=== PATIENT | female | born 1950 | race Caucasian/White ===

== ENCOUNTER 2016-07-22 14:04 | Emergency (ER) | payer BC ==
[2016-07-22] MEDS ORDERED: ONDANSETRON 4 MG/2 ML VIAL IVP STA (14:34)
[2016-07-22] MEDS ORDERED: HYDROmorphone 1 MG/ML 1 ML SYRINGE IVP STA ×2 (14:34→17:28)
--- NOTE | 2016-07-22 14:48 | ED ---
General Adult HPI - General Chief complaint: Shortness of Breath Stated complaint: Difficulty Breathing Time Seen by Provider: 07/22/16 14:23 Source: patient, EMS Mode of arrival: ambulatory Limitations: no limitations - History of Present Illness Initial comments: 66-year-old female patient presents to emergency department today for complaints of thoracic back pain that radiates around to the right side, and into her right upper quadrant abdomen. Patient is also complaining of some abdominal distention and generalized discomfort. Patient reports shortness of breath with this, some dizziness, and has had sweats. Patient states that she has chronic back pain with known herniated disc of the thoracic spine, she is currently in rehab at [facility] for this. When she woke this morning the pain was worse than usual, and states it is hard to move around or ambulate. She states that when in EMS she did have some chest discomfort as well. Patient denies any fever, chills, weakness, nausea, vomiting, constipation, or diarrhea. Patient states her last bowel movement was yesterday. She denies any dysuria, hematuria, urinary urgency, urinary frequency, dark, bloody, or black stools. She does have a history significant for asthma, chronic use of corticosteroids, and anxiety. - Related Data Home Medications Medication Instructions Recorded Confirmed Folic Acid 1 mg PO DAILY@1700 10/19/15 07/22/16 Methotrexate (Unknown Dose) 2.5 mg PO MO 10/19/15 07/22/16 Albuterol Nebulized [Ventolin 2.5 mg INHALATION RT-BID@0800,1700 07/22/16 Nebulized] Albuterol Sulfate [Proventil Hfa] 2 puff INHALATION RT-Q6H PRN 07/22/16 07/22/16 Alendronate Sodium [Fosamax] 70 mg PO TH 07/22/16 07/22/16 Bisacodyl [Dulcolax] 10 mg RECTAL DAILY PRN 07/22/16 07/22/16 Budesonide/Formoterol Fumarate 2 puff INHALATION RT-BID 07/22/16 07/22/16 [Symbicort 160-4.5 Mcg Inhaler] Calcitonin,[place],Synthetic 1 spray EA NOSTRIL DAILY 07/22/16 07/22/16 [Miacalcin] Cholecalciferol [Vitamin D3] 2,000 unit PO DAILY@1700 07/22/16 07/22/16 Cyclobenzaprine [Flexeril] 10 mg PO TID 07/22/16 07/22/16 HYDROcodone/APAP 5-325MG [[place] 1 tab PO Q4HR PRN 07/22/16 07/22/16 5-325] Hydrochlorothiazide [Hydrodiuril] 12.5 mg PO MOWEFR 07/22/16 07/22/16 Magnesium Hydroxide [Milk of 2,400 mg PO DAILY PRN 07/22/16 07/22/16 Magnesia] Menthol/Zinc Oxide [Calmoseptine 1 applic TOPICAL BID 07/22/16 07/22/16 Ointment] Montelukast [Singulair] 10 mg PO HS@2100 07/22/16 07/22/16 Morphine Sulfate [Ms Contin] 30 mg PO Q12HR 07/22/16 07/22/16 Na Phos,M-B/Na Phos,Di-Ba [Fleet 133 ml RECTAL DAILY 07/22/16 07/22/16 Adult] Omeprazole 20 mg PO DAILY 07/22/16 07/22/16 Polyethylene Glycol 3350 [Miralax] 17 gm PO DAILY 07/22/16 07/22/16 Sennosides [Senokot] 8.6 mg PO HS 07/22/16 07/22/16 predniSONE 20 mg PO DAILY 07/22/16 07/22/16 Allergies Allergy/AdvReac Type Severity Reaction Status Date / Time furosemide [From Lasix] AdvReac Unknown Verified 07/22/16 14:50 Review of Systems ROS Statement: Those systems with pertinent positive or pertinent negative responses have been documented in the HPI. ROS Other: All systems not noted in ROS Statement are negative. Past Medical History Past Medical History: Asthma, Cancer, GERD/Reflux Additional Past Medical History / Comment(s): SKIN CANCER, HERNIATED DISCS, STATES HX OF SEPSIS WHICH AFFECTED HER KIDNEYS BUT THEY ARE OK NOW., STATES PROBLEM WITH DIARRHEA. History of Any Multi-Drug Resistant Organisms: None Reported Past Surgical History: Tubal Ligation Additional Past Surgical History / Comment(s): CATARACT LEFT EYE WITH REPAIR OF MACULAR HOLE. Past Anesthesia/Blood Transfusion Reactions: No Reported Reaction Past Psychological History: No Psychological Hx Reported Smoking Status: Never smoker Past Alcohol Use History: Occasional Past Drug Use History: None Reported - Past Family History Mother Family Medical History: Cancer Additional Family Medical History / Comment(s): COLON CANCER General Exam Limitations: no limitations General appearance: alert, in no apparent distress Eye exam: Present: normal appearance, PERRL, EOMI. Absent: scleral icterus, conjunctival injection, periorbital swelling ENT exam: Present: normal exam, normal oropharynx, mucous membranes moist Neck exam: Present: normal inspection. Absent: tenderness, meningismus, lymphadenopathy Respiratory exam: Present: normal lung sounds bilaterally. Absent: respiratory distress, wheezes, rales, rhonchi, stridor Cardiovascular Exam: Present: regular rate, normal rhythm, normal heart sounds. Absent: systolic murmur, diastolic murmur, rubs, gallop, clicks GI/Abdominal exam: Present: distended, normal bowel sounds. Absent: soft (Firm) , tenderness, guarding, rebound, rigid Extremities exam: Present: normal inspection, full ROM, normal capillary refill. Absent: tenderness, pedal edema, joint swelling, calf tenderness Back exam: Present: tenderness (Over the thoracic spine) Neurological exam: Present: alert, oriented X3, CN II-XII intact Psychiatric exam: Present: normal affect, normal mood Skin exam: Present: warm, intact, normal color. Absent: rash Course Vital Signs 07/22/16 07/22/16 14:28 15:58 Temperature 97.0 F L Pulse Rate 94 91 Respiratory 22 20 Rate Blood Pressure 149/70 149/72 O2 Sat by Pulse 93 L 95 Oximetry EKG Findings - EKG Comments: EKG Findings:: EKG obtained at 1450 reveals normal sinus rhythm with a ventricular rate of 91, PA interval 140, QRS duration 82, QT 362, QTC 445. No evidence of ST elevation or depression. Medical Decision Making - Medical Decision Making 66-year-old female patient presents to emergency department today for complaints of back pain that radiated to her right side, shortness of breath, and abdominal distention. CT of the chest was negative for any pulmonary embolism. CT abdomen and pelvis and KUB were significant for fecal retention. Patient is newly taking opiate pain medications or known compression deformities of the thoracic spine and has some issues with constipation since then. Patient does have multiple stool [facility] She'll her pain is related to the compression deformities and she is feeling better after pain medication here. Additionally patient's amylase and lipase are mildly elevated. Patient given instruction regarding diet and increase fluid intake and will be given a prescription for repeat amylase and lipase and 2 days. Patient will be discharged back to [facility]. Patient instructed pop her primary care physician one to 2 days. Patient started to return for any new, worsening, or concerning symptoms. - Lab Data Result diagrams: 07/22/16 15:04 07/22/16 15:04 Lab Results 07/22/16 07/22/16 07/22/16 Range/Units 14:42 15:04 15:04 WBC 12.0 H (3.8-10.6) k/uL RBC 3.96 (3.80-5.40) m/uL Hgb 13.5 (11.4-16.0) gm/dL Hct 42.0 (34.0-46.0) % MCV 105.9 H (80.0-100.0) fL MCH 34.1 (25.0-35.0) pg MCHC 32.2 (31.0-37.0) g/dL RDW 15.4 (11.5-15.5) % Plt Count 242 (150-450) k/uL Neutrophils % 89 % Lymphocytes % 5 % Monocytes % 4 % Eosinophils % 0 % Basophils % 0 % Neutrophils # 10.6 H (1.3-7.7) k/uL Lymphocytes # 0.6 L (1.0-4.8) k/uL Monocytes # 0.5 (0-1.0) k/uL Eosinophils # 0.1 (0-0.7) k/uL Basophils # 0.1 (0-0.2) k/uL Macrocytosis Moderate PT (9.0-12.0) sec INR (<1.1) APTT (22.0-30.0) sec D-Dimer (<0.60) mg/L FEU Sodium (137-145) mmol/L Potassium (3.5-5.1) mmol/L Chloride (98-107) mmol/L Carbon Dioxide (22-30) mmol/L Anion Gap mmol/L BUN (7-17) mg/dL Creatinine (0.52-1.04) mg/dL Est GFR (MDRD) Af Amer (>60 ml/min/1.73 sqM) Est GFR (MDRD) Non-Af (>60 ml/min/1.73 sqM) Glucose (74-99) mg/dL POC Glucose (mg/dL) 130 H (75-99) mg/dL POC Glu [employer] ID Hollie Martin Calcium (8.4-10.2) mg/dL Total Bilirubin (0.2-1.3) mg/dL AST (14-36) U/L ALT (9-52) U/L Alkaline Phosphatase (38-126) U/L Total Creatine Kinase <20 L (30-135) U/L CK-MB (CK-2) 0.6 (0.0-2.4) ng/mL CK-MB (CK-2) Rel Index 0.0 Troponin I <0.012 (0.000-0.034) ng/mL Total Protein (6.3-8.2) g/dL Albumin (3.5-5.0) g/dL Amylase (30-110) U/L Lipase (23-300) U/L Urine Color Urine Appearance (Clear) Urine pH (5.0-8.0) Ur Specific [place] (1.001-1.035) Urine Protein (Negative) Urine Glucose (UA) (Negative) Urine Ketones (Negative) Urine Blood (Negative) Urine Nitrite (Negative) Urine Bilirubin (Negative) Urine Urobilinogen (<2.0) mg/dL Ur Leukocyte Esterase (Negative) Urine RBC (0-5) /hpf Urine WBC (0-5) /hpf Ur Squamous Epith Cells (0-4) /hpf Calcium Oxalate Crystal (None) /hpf Hyaline Casts (0-2) /lpf Urine Mucus (None) /hpf 07/22/16 07/22/16 07/22/16 Range/Units 15:04 15:04 15:56 WBC (3.8-10.6) k/uL RBC (3.80-5.40) m/uL Hgb (11.4-16.0) gm/dL Hct (34.0-46.0) % MCV (80.0-100.0) fL MCH (25.0-35.0) pg MCHC (31.0-37.0) g/dL RDW (11.5-15.5) % Plt Count (150-450) k/uL Neutrophils % % Lymphocytes % % Monocytes % % Eosinophils % % Basophils % % Neutrophils # (1.3-7.7) k/uL Lymphocytes # (1.0-4.8) k/uL Monocytes # (0-1.0) k/uL Eosinophils # (0-0.7) k/uL Basophils # (0-0.2) k/uL Macrocytosis PT 10.0 (9.0-12.0) sec INR 1.0 (<1.1) APTT 23.2 (22.0-30.0) sec D-Dimer 1.38 H (<0.60) mg/L FEU Sodium 140 (137-145) mmol/L Potassium 4.1 (3.5-5.1) mmol/L Chloride 102 (98-107) mmol/L Carbon Dioxide 30 (22-30) mmol/L Anion Gap 8 mmol/L BUN 23 H (7-17) mg/dL Creatinine 0.71 (0.52-1.04) mg/dL Est GFR (MDRD) Af Amer >60 (>60 ml/min/1.73 sqM) Est GFR (MDRD) Non-Af >60 (>60 ml/min/1.73 sqM) Glucose 139 H (74-99) mg/dL POC Glucose (mg/dL) (75-99) mg/dL POC Glu [employer] ID Calcium 8.7 (8.4-10.2) mg/dL Total Bilirubin 0.7 (0.2-1.3) mg/dL AST 26 (14-36) U/L ALT 51 (9-52) U/L Alkaline Phosphatase 99 (38-126) U/L Total Creatine Kinase (30-135) U/L CK-MB (CK-2) (0.0-2.4) ng/mL CK-MB (CK-2) Rel Index Troponin I (0.000-0.034) ng/mL Total Protein 6.6 (6.3-8.2) g/dL Albumin 3.7 (3.5-5.0) g/dL Amylase 150 H (30-110) U/L Lipase 332 H (23-300) U/L Urine Color Yellow Urine Appearance Cloudy H (Clear) Urine pH 7.0 (5.0-8.0) Ur Specific [place] 1.020 (1.001-1.035) Urine Protein Trace H (Negative) Urine Glucose (UA) Negative (Negative) Urine Ketones Negative (Negative) Urine Blood Small H (Negative) Urine Nitrite Negative (Negative) Urine Bilirubin Negative (Negative) Urine Urobilinogen <2.0 (<2.0) mg/dL Ur Leukocyte Esterase Moderate H (Negative) Urine RBC 10 H (0-5) /hpf Urine WBC 7 H (0-5) /hpf Ur Squamous Epith Cells 1 (0-4) /hpf Calcium Oxalate Crystal Occasional H (None) /hpf Hyaline Casts 3 H (0-2) /lpf Urine Mucus Rare H (None) /hpf - Radiology Data Radiology results: report reviewed Chest CTA with impression by Dr. Murray reveals no acute pulmonary embolus. Minimal subsegmental atelectasis lung bases. CT abdomen and pelvis with impression by Dr. Murray reveals sigmoid diverticulosis. Mild fecal retention. Multiple compression deformities. X-ray KUB with impression by Dr. Murray reveals no evidence for bowel obstruction. Moderate stool burden. Possible right-sided nephrolithiasis with calcification measuring up to 2.5 cm. Two-view chest x-ray showed no acute cardiopulmonary process. Disposition Clinical Impression: Compression deformity of vertebra, Constipation Disposition: HOME SELF-CARE Condition: Stable Instructions: Constipation (ED), Back Pain (ED) Additional Instructions: Increase fluids. Low-fat diet. Repeat amylase and lipase in 2 days. Follow- up with Dr. Salazar for a further evaluation of the back pain. Return for any new , worsening, or concerning symptoms. Referrals: Chencho Gallardo DO [Primary Care Provider] - 1-2 days Time of Disposition: 17:16
[2016-07-22 14:54] LABS: Glucose,Whole Blood 130 mg/dL (75-99)
[2016-07-22 15:23] LABS: Basophils # (A) 0.1 k/uL (0-0.2); Basophils % (A) 0 %; CH 34.5; CHCM 32.7; Eosinophils # (A) 0.1 k/uL (0-0.7); Eosinophils % (A) 0 %; HDW 2.86; HGB 13.5 gm/dL (11.4-16.0); Luc # (Auto) 0.12; Luc % (Auto) 1; Lymphocytes # (A) 0.6 k/uL (1.0-4.8); Lymphocytes % (A) 5 %; MCH 34.1 pg (25.0-35.0); MCHC 32.2 g/dL (31.0-37.0); MCV 105.9 fL (80.0-100.0); Macrocytosis Moderate; Mean Platelet Volume 6.6; Monocytes # (A) 0.5 k/uL (0-1.0); Monocytes % (A) 4 %; Neutrophils # (A) 10.6 k/uL (1.3-7.7); Neutrophils % (A) 89 %; RBC 3.96 m/uL (3.80-5.40); RDW 15.4 % (11.5-15.5); WBC (Perox) 12.86
--- NOTE | 2016-07-22 15:28 | XR ---
EXAMINATION TYPE: XR chest 2V DATE OF EXAM: 07/22/2016 3:19 PM COMPARISON: None HISTORY: 66-year-old female difficulty breathing TECHNIQUE: AP and lateral views FINDINGS: Excessive lordotic positioning. Limitations due to portable technique and large patient body habitus. The heart appears enlarged. There is some retrocardiac lucency suggesting underlying moderate size h iatal hernia. Diffuse interstitial opacities. Suggestion of thickening of the minor fissure. Trace ef fusion seen on the lateral view. IMPRESSION: 1. Correlate for CHF with pulmonary vascular congestion/interstitial edema. 2. Trace pleural effusions. 3. Moderate-sized hiatal hernia.
--- NOTE | 2016-07-22 15:30 | XR ---
EXAMINATION TYPE: XR KUB DATE OF EXAM: 07/22/2016 3:19 PM CLINICAL DATA: , [facility] COMPARISON: FINDINGS: Supine imaging limited for assessment of free intraperitoneal air. Nondilated bowel. There is moderate stool seen throughout the colon. Some vascular calcifications in the pelvis. Difficult to exclude right-sided renal calculi measuring up to 2.5 x 1.1 cm. IMPRESSION: 1. No evidence for bowel obstruction. 2. Moderate stool burden. 3. Possible right-sided nephrolithiasis with calcification measuring up to 2.5 cm.
[2016-07-22 15:38] LABS: Partial Thromboplastin Time 23.2 sec (22.0-30.0)
[2016-07-22 15:39] LABS: ALT 51 U/L (9-52); AST 26 U/L (14-36); Alkaline Phosphatase 99 U/L (38-126); Amylase 150 U/L (30-110); Anion Gap 8 mmol/L; Blood Urea Nitrogen 23 mg/dL (7-17); Calcium 8.7 mg/dL (8.4-10.2); Carbon Dioxide 30 mmol/L (22-30); Chloride 102 mmol/L (98-107); Glucose 139 mg/dL (74-99); Non-African American GFR(MDRD) >60 (>60 ml/min/1.73 sqM); Potassium 4.1 mmol/L (3.5-5.1); Sodium 140 mmol/L (137-145); Total Bilirubin 0.7 mg/dL (0.2-1.3); Total Protein 6.6 g/dL (6.3-8.2)
[2016-07-22] MEDS ORDERED: RX INFO: IV CONTRAST WAS GIVEN 1 EACH MISC MISCELLANE PRN (15:43)
[2016-07-22 15:45] LABS: Creatine Kinase <20 U/L (30-135)
[2016-07-22 15:57] LABS: Creatine Kinase MB 0.6 ng/mL (0.0-2.4); Troponin I <0.012 ng/mL (0.000-0.034)
[2016-07-22 16:20] LABS: Appearance,Urine Cloudy (Clear); Bilirubin,Urine Negative (Negative); Calcium Oxalate Crystals,Urine Occasional /hpf; Glucose,Urine (UA) Negative (Negative); Ketones,Urine Negative (Negative); Leukocyte Esterase,Urine Moderate (Negative); Mucus,Urine Rare /hpf; Nitrite,Urine Negative (Negative); Particle Count 11189; Protein,Urine Trace (Negative); RBC,Urine 10 /hpf (0-5); Squamous Epithelial Cell,Urine 1 /hpf (0-4); UA Billing (MACRO vs. MICRO) MICRO; Urobilinogen,Urine <2.0 mg/dL (<2.0); WBC,Urine 7 /hpf (0-5)
--- NOTE | 2016-07-22 16:49 | CT ---
CT CHEST FOR PULMONARY EMBOLISM. EXAMINATION TYPE: CT chest angio for PE DATE OF EXAM: 07/22/2016 4:20 PM INDICATION: Back pain today. No abdominal pain. Shortness of breath and elevated d-dimer. CT DLP: 1869.40 mGycm, Automated exposure control for dose reduction was used. CONTRAST: Patient injected with 100 mL of Omnipaque 350. COMPARISON: None TECHNIQUE: CT of the chest is performed on a spiral scan at 2 mm thick sections. Study is performed with intravenous contrast timed for evaluation for pulmonary embolism. This will limit additional po rtions of the evaluation. 3-D MIP images reconstructed by the technologist are reviewed on the compu ter in the coronal and sagittal planes. FINDINGS: No persistent filling defects are evident to suggest an acute pulmonary embolism. No mediastinal or hilar adenopathy enlarged by CT criteria is evident. The ascending aorta diameter at the level of the main pulmonary artery is 3.5 cm. The main pulmonary artery diameter at the bifur cation is 2.3 cm. There is streak opacity in the right lower lobe compatible some atelectasis. Some dependent compressi ve atelectasis is present bilaterally. Moderate size hiatal hernia is present. Subglottic airway appe ars unremarkable. No enlarged mediastinal or hilar adenopathy is evident. Very minimal bilateral pleu ral effusions may be present. CT abdomen and pelvis is performed separately. IMPRESSIONS: 1. No acute pulmonary embolism. 2. Minimal subsegmental atelectasis lung bases.
--- NOTE | 2016-07-22 16:54 | CT ---
EXAMINATION TYPE: CT abdomen pelvis w con DATE OF EXAM: 07/22/2016 4:20 PM COMPARISON: NONE INDICATION: Back pain today. No abdominal pain. Shortness of breath and elevated d-dimer. DLP: 1869.40 mGycm, Automated exposure control for dose reduction was used. CONTRAST: 100 mL of Omnipaque 350. Study performed without Oral Contrast TECHNIQUE: Axial images were obtained from above the diaphragm to the pubic rami in the axial plane a t 5 mm thick sections. Reconstructed images are reviewed on the computer in the coronal plane. FINDINGS: Limited CT sections are obtained the lung bases. The lung bases are clear. CT ABDOMEN: Liver: Normal Spleen: Normal Pancreas: Normal Adrenal glands: The adrenal glands are normal. Gallbladder: Normal Kidneys: No masses are evident. No hydronephrosis is present. No cysts are present. Delayed images were obtained through the kidneys, which remain unremarkable. Aorta: Vascular calcification is within the aorta. Inferior vena cava: Normal. CT PELVIS: Loops of bowel within the abdomen and pelvis are normal. Diverticular changes are within the sigm oid colon. A large amount of fecal debris is within the ascending colon. Fecal debris is within the t ransverse colon and mild or mild within the descending colon. Appendix: Not visualized Urinary bladder: Normal. Genitourinary structures: Uterus is normal. Adnexal regions are clear. Osseous structures: No suspicious lytic or sclerotic lesions. Facet changes are within the lumbar spi ne. There is a compression deformity of the superior endplate of L2. There is a severe compression de formity of T12. Some posterior wall displacement is present. Dedicated CT thoracolumbar spine to be p erformed for additional evaluation. Some stenosis is likely present. There is a severe compression de formity of T10 without posterior wall displacement. At the edge of the [id number] T7 compression w edge deformity is present. IMPRESSIONS: 1. Sigmoid diverticulosis. 2. Mild fecal retention. 3. Multiple compression deformities. Evaluation of the thoracolumbar spine can further evaluate the T 12 posterior wall displacement.
[2016-07-22 17:50] VITALS: BP 135/63; PULSE 85; RESP 18; TEMP 98.2
== END 2016-07-22 18:22 | disposition home or self-care (01) ==
LOC: SUPCPDRO 14:04 → EC 14:04
DX: M43.8X4 Other specified deforming dorsopathies, thoracic region (principal); K59.00 Constipation, unspecified; J98.11 Atelectasis; K57.30 Diverticulosis of large intestine without perforation or abscess without bleeding; R74.8 Abnormal levels of other serum enzymes; R14.0 Abdominal distension (gaseous); J45.909 Unspecified asthma, uncomplicated; K21.9 Gastro-esophageal reflux disease without esophagitis; Z79.51 Long term (current) use of inhaled steroids; Z79.891 Long term (current) use of opiate analgesic; Z79.899 Other long term (current) drug therapy; Z88.8 Allergy status to other drugs, medicaments and biological substances; Z85.828 Personal history of other malignant neoplasm of skin
CPT/HCPCS: 99285; 96374; 96376; 96375; 36415; 93005; 85379; 80053; 82150; 82550; 82553; 83690; 84484; 85025; 85610; 85730; 81001; 87086; 71020; 74000; 71275; 74177; Q9967; J2405; J1170; 82607; 82747; 82977; 84450; 84460

== ENCOUNTER 2016-07-28 07:20 | Inpatient (IN) | payer BC, MEDICARE ==
[2016-07-28] MEDS ORDERED: SODIUM CHLORIDE 0.9% 1,000 ML IV STA (07:30)
[2016-07-28] MEDS ORDERED: SODIUM CHLORIDE 0.9% 500 ML IV STA (07:30)
--- NOTE | 2016-07-28 07:34 | ED ---
Back Pain HPI - General Chief Complaint: Back Pain/Injury Stated Complaint: Back Pain Time Seen by Provider: 07/28/16 07:20 Source: patient, EMS, RN notes reviewed - History of Present Illness Initial Comments: This is a 66-year-old female who was brought in by EMS with complaints of severe thoracic back pain. She states she has for [place] other affected some lower thoracic spine. She does, [place] after being there for a week ago for 5 days. She states she took her Vicodin and Seco today. No relief she states pain was 10/10 in severity. Sharp in nature she denies any focal deficits it does get worse with movement. She denies any fevers chills nausea vomiting sweats or other symptoms. Patient also states she's been constipated due to her pain medications. MD Complaint: back pain - Related Data Home Medications Medication Instructions Recorded Confirmed Folic Acid 1 mg PO DAILY@1700 10/19/15 07/28/16 Albuterol Nebulized [Ventolin 2.5 mg INHALATION RT-BID@0800,1700 07/22/16 Nebulized] Albuterol Sulfate [Proventil Hfa] 2 puff INHALATION RT-Q6H PRN 07/22/16 07/28/16 Alendronate Sodium [Fosamax] 70 mg PO TH 07/22/16 07/28/16 Budesonide/Formoterol Fumarate 2 puff INHALATION RT-BID 07/22/16 07/28/16 [Symbicort 160-4.5 Mcg Inhaler] Cholecalciferol [Vitamin D3] 2,000 unit PO DAILY@1700 07/22/16 07/28/16 Cyclobenzaprine [Flexeril] 10 mg PO TID 07/22/16 07/28/16 HYDROcodone/APAP 5-325MG [Seco 1 tab PO Q4HR PRN 07/22/16 07/28/16 5-325] Hydrochlorothiazide [Hydrodiuril] 12.5 mg PO MOWEFR 07/22/16 07/28/16 Montelukast [Singulair] 10 mg PO HS 07/22/16 07/28/16 Morphine Sulfate [Ms Contin] 30 mg PO Q12HR 07/22/16 07/28/16 Omeprazole 20 mg PO BID 07/22/16 07/28/16 Polyethylene Glycol 3350 [Miralax] 17 gm PO DAILY 07/22/16 07/28/16 Sennosides [Senokot] 8.6 mg PO HS 07/22/16 07/28/16 predniSONE 20 mg PO DAILY 07/22/16 07/28/16 Methotrexate Sodium [Methotrexate] 12.5 mg PO MO 07/28/16 07/28/16 Allergies Allergy/AdvReac Type Severity Reaction Status Date / Time furosemide [From Lasix] AdvReac Unknown Verified 07/28/16 10:53 Review of Systems ROS Statement: Those systems with pertinent positive or pertinent negative responses have been documented in the HPI. ROS Other: All systems not noted in ROS Statement are negative. Past Medical History Past Medical History: Asthma, Cancer, GERD/Reflux Additional Past Medical History / Comment(s): SKIN CANCER, HERNIATED DISCS, STATES HX OF SEPSIS WHICH AFFECTED HER KIDNEYS BUT THEY ARE OK NOW., STATES PROBLEM WITH DIARRHEA. History of Any Multi-Drug Resistant Organisms: None Reported Past Surgical History: Tubal Ligation Additional Past Surgical History / Comment(s): CATARACT LEFT EYE WITH REPAIR OF MACULAR HOLE. Past Anesthesia/Blood Transfusion Reactions: No Reported Reaction Past Psychological History: No Psychological Hx Reported Smoking Status: Never smoker Past Alcohol Use History: Occasional Past Drug Use History: None Reported - Past Family History Mother Family Medical History: Cancer Additional Family Medical History / Comment(s): COLON CANCER General Exam - General Exam Comments Initial Comments: This is a well-developed well-nourished awake alert anxious appearing female General appearance: alert, in no apparent distress Head exam: Present: atraumatic, normocephalic, normal inspection Eye exam: Present: normal appearance, PERRL, EOMI. Absent: scleral icterus, conjunctival injection, periorbital swelling ENT exam: Present: mucous membranes dry Neck exam: Present: normal inspection. Absent: tenderness, meningismus, lymphadenopathy Respiratory exam: Present: normal lung sounds bilaterally. Absent: respiratory distress, wheezes, rales, rhonchi, stridor Cardiovascular Exam: Present: regular rate, normal rhythm, normal heart sounds. Absent: systolic murmur, diastolic murmur, rubs, gallop, clicks GI/Abdominal exam: Present: soft, normal bowel sounds, other (Obese abdomen). Absent: distended, tenderness, guarding, rebound, rigid Extremities exam: Present: normal inspection, full ROM, normal capillary refill. Absent: tenderness, pedal edema, joint swelling, calf tenderness Back exam: Present: normal inspection, tenderness, paraspinal tenderness. Absent: CVA tenderness (R) (Tenderness palpation over the lower thoracic paraspinous muscles no definite spinous process tenderness.), CVA tenderness (L) Neurological exam: Present: alert, oriented X3, CN II-XII intact Psychiatric exam: Present: normal affect, normal mood Skin exam: Present: warm, dry, intact, normal color. Absent: rash Course Vital Signs 07/28/16 07/28/16 07:24 09:07 Temperature 97.7 F Pulse Rate 92 85 Respiratory 20 16 Rate Blood Pressure 166/82 178/81 O2 Sat by Pulse 100 97 Oximetry Medical Decision Making - Medical Decision Making I did reevaluate patient still having severe pain 9/10 severity I did discuss [employer] and family members. Patient be admitted for pain control IV hydration failed outpatient treatment and orthopedic consultation - Lab Data Result diagrams: 07/28/16 09:05 07/28/16 09:05 Lab Results 07/28/16 07/28/16 07/28/16 Range/Units 09:05 09:05 09:05 WBC 9.5 (3.8-10.6) k/uL RBC 3.83 (3.80-5.40) m/uL Hgb 12.9 (11.4-16.0) gm/dL Hct 40.7 (34.0-46.0) % MCV 106.3 H (80.0-100.0) fL MCH 33.8 (25.0-35.0) pg MCHC 31.8 (31.0-37.0) g/dL RDW 15.0 (11.5-15.5) % Plt Count 195 (150-450) k/uL Neutrophils % 83 % Lymphocytes % 8 % Monocytes % 5 % Eosinophils % 3 % Basophils % 1 % Neutrophils # 7.9 H (1.3-7.7) k/uL Lymphocytes # 0.7 L (1.0-4.8) k/uL Monocytes # 0.5 (0-1.0) k/uL Eosinophils # 0.2 (0-0.7) k/uL Basophils # 0.1 (0-0.2) k/uL Macrocytosis Moderate D-Dimer (<0.60) mg/L FEU Sodium 138 (137-145) mmol/L Potassium 3.4 L (3.5-5.1) mmol/L Chloride 99 (98-107) mmol/L Carbon Dioxide 32 H (22-30) mmol/L Anion Gap 7 mmol/L BUN 24 H (7-17) mg/dL Creatinine 0.84 (0.52-1.04) mg/dL Est GFR (MDRD) Af Amer >60 (>60 ml/min/1.73 sqM) Est GFR (MDRD) Non-Af >60 (>60 ml/min/1.73 sqM) Glucose 83 (74-99) mg/dL Calcium 9.0 (8.4-10.2) mg/dL Magnesium 1.9 (1.6-2.3) mg/dL Total Bilirubin 0.8 (0.2-1.3) mg/dL AST 27 (14-36) U/L ALT 47 (9-52) U/L Alkaline Phosphatase 77 (38-126) U/L Total Creatine Kinase <20 L (30-135) U/L CK-MB (CK-2) 0.4 (0.0-2.4) ng/mL CK-MB (CK-2) Rel Index 0.0 Total Protein 6.2 L (6.3-8.2) g/dL Albumin 3.5 (3.5-5.0) g/dL Amylase 116 H (30-110) U/L Lipase 257 (23-300) U/L 07/28/16 Range/Units 09:05 WBC (3.8-10.6) k/uL RBC (3.80-5.40) m/uL Hgb (11.4-16.0) gm/dL Hct (34.0-46.0) % MCV (80.0-100.0) fL MCH (25.0-35.0) pg MCHC (31.0-37.0) g/dL RDW (11.5-15.5) % Plt Count (150-450) k/uL Neutrophils % % Lymphocytes % % Monocytes % % Eosinophils % % Basophils % % Neutrophils # (1.3-7.7) k/uL Lymphocytes # (1.0-4.8) k/uL Monocytes # (0-1.0) k/uL Eosinophils # (0-0.7) k/uL Basophils # (0-0.2) k/uL Macrocytosis D-Dimer 1.31 H (<0.60) mg/L FEU Sodium (137-145) mmol/L Potassium (3.5-5.1) mmol/L Chloride (98-107) mmol/L Carbon Dioxide (22-30) mmol/L Anion Gap mmol/L BUN (7-17) mg/dL Creatinine (0.52-1.04) mg/dL Est GFR (MDRD) Af Amer (>60 ml/min/1.73 sqM) Est GFR (MDRD) Non-Af (>60 ml/min/1.73 sqM) Glucose (74-99) mg/dL Calcium (8.4-10.2) mg/dL Magnesium (1.6-2.3) mg/dL Total Bilirubin (0.2-1.3) mg/dL AST (14-36) U/L ALT (9-52) U/L Alkaline Phosphatase (38-126) U/L Total Creatine Kinase (30-135) U/L CK-MB (CK-2) (0.0-2.4) ng/mL CK-MB (CK-2) Rel Index Total Protein (6.3-8.2) g/dL Albumin (3.5-5.0) g/dL Amylase (30-110) U/L Lipase (23-300) U/L - Radiology Data Radiology results: report reviewed (I did review the imaging and reports no acute findings noted.), image reviewed Disposition Clinical Impression: Thoracic back pain, Intractable pain, Dehydration, Failure of outpatient treatment Disposition: ADMITTED IP TO THIS [facility] Condition: Stable Decision Time: 11:30
[2016-07-28] MEDS ORDERED: KETOROLAC 30 MG/ML 1 ML VIAL IVP STA ×2 (07:35→11:52)
[2016-07-28 09:20] LABS: Basophils # (A) 0.1 k/uL (0-0.2); Basophils % (A) 1 %; CH 34.6; CHCM 32.7; Eosinophils # (A) 0.2 k/uL (0-0.7); Eosinophils % (A) 3 %; HCT 40.7 % (34.0-46.0); HDW 2.81; HGB 12.9 gm/dL (11.4-16.0); Luc % (Auto) 1; Lymphocytes # (A) 0.7 k/uL (1.0-4.8); Lymphocytes % (A) 8 %; MCH 33.8 pg (25.0-35.0); MCHC 31.8 g/dL (31.0-37.0); MCV 106.3 fL (80.0-100.0); Macrocytosis Moderate; Mean Platelet Volume 6.7; Monocytes # (A) 0.5 k/uL (0-1.0); Monocytes % (A) 5 %; Neutrophils # (A) 7.9 k/uL (1.3-7.7); Neutrophils % (A) 83 %; RBC 3.83 m/uL (3.80-5.40); WBC 9.5 k/uL (3.8-10.6); WBC (Perox) 9.98
[2016-07-28 09:30] LABS: ALT 47 U/L (9-52); AST 27 U/L (14-36); Alkaline Phosphatase 77 U/L (38-126); Amylase 116 U/L (30-110); Anion Gap 7 mmol/L; Blood Urea Nitrogen 24 mg/dL (7-17); Carbon Dioxide 32 mmol/L (22-30); Chloride 99 mmol/L (98-107); Glucose 83 mg/dL (74-99); Magnesium 1.9 mg/dL (1.6-2.3); Non-African American GFR(MDRD) >60 (>60 ml/min/1.73 sqM); Potassium 3.4 mmol/L (3.5-5.1); Sodium 138 mmol/L (137-145); Total Bilirubin 0.8 mg/dL (0.2-1.3); Total Protein 6.2 g/dL (6.3-8.2)
--- NOTE | 2016-07-28 09:32 | XR ---
EXAMINATION TYPE: XR chest 2V DATE OF EXAM: 07/28/2016 9:28 AM COMPARISON: 07/22/2016 INDICATION: Previous abnormal chest, cough, right upper quadrant pain TECHNIQUE: Single frontal view of the chest is obtained. FINDINGS: The heart size is normal. The pulmonary vasculature is upper limits of normal. There is some atelectasis within the right midlung. Mild infiltrate is in the left lower lung field. Findings are stable IMPRESSION: 1. Mild stable infiltrates. Correlate for atelectasis. Left base pneumonia or atypical pulmonary maricruz a is not excluded.
--- NOTE | 2016-07-28 09:35 | XR ---
EXAMINATION TYPE: XR abdomen 1V DATE OF EXAM: 07/28/2016 9:29 AM COMPARISON: NONE INDICATION: Pain upper back TECHNIQUE: Single view abdomen FINDINGS: Nonspecific bowel gas is present. No free air is identified Psoas margins are normal. No organomegaly is present. A 2.4 x 1.5 cm calcification overlies the right mid kidney. IMPRESSION: 1. Large right renal stone
[2016-07-28 09:42] LABS: Creatine Kinase <20 U/L (30-135)
[2016-07-28 09:51] LABS: Creatine Kinase MB 0.4 ng/mL (0.0-2.4)
[2016-07-28] MEDS ORDERED: RX INFO: IV CONTRAST WAS GIVEN 1 EACH MISC MISCELLANE PRN (09:55)
--- NOTE | 2016-07-28 10:49 | CT ---
CT CHEST FOR PULMONARY EMBOLISM. EXAMINATION TYPE: CT angio chest DATE OF EXAM: 07/28/2016 10:34 AM INDICATION: BACK PAIN, RUQ ABD PAIN CT DLP: 488.70 mGycm, Automated exposure control for dose reduction was used. CONTRAST: Patient injected with 100 mL of Omnipaque 350. COMPARISON: 07/22/2016 TECHNIQUE: CT of the chest is performed on a spiral scan at 2 mm thick sections. Study is performed with intravenous contrast timed for evaluation for pulmonary embolism. This will limit additional po rtions of the evaluation. 3-D MIP images reconstructed by the technologist are reviewed on the compu ter in the coronal and sagittal planes. FINDINGS: No persistent filling defects are evident to suggest an acute pulmonary embolism. No mediastinal or hilar adenopathy enlarged by CT criteria is evident. The ascending aorta diameter at the level of the main pulmonary artery is 3.6 cm. The main pulmonary artery diameter at the bifur cation is 2.8 cm. There is mild compressive atelectasis is present. Some streak atelectasis may be along the fissures. There is a large hiatal hernia present. Upper abdomen appears unremarkable. IMPRESSIONS: 1. No acute pulmonary embolism. 2. Mild compressive atelectasis.
[2016-07-28] MEDS ORDERED: HYDROmorphone 1 MG/ML 1 ML SYRINGE IVP STA (11:52)
[2016-07-28] MEDS ORDERED: ACETAMINOPHEN TAB 325 MG TAB PO PRN (12:17)
[2016-07-28] MEDS ORDERED: NALOXONE 0.4 MG/ML 1 ML VIAL IV PRN (12:17)
[2016-07-28] MEDS ORDERED: HYDROcodone/APAP 5-325MG 1 EACH TAB PO PRN (12:20)
[2016-07-28 12:52] LABS: Appearance,Urine Cloudy (Clear); Bilirubin,Urine Negative (Negative); Calcium Oxalate Crystals,Urine Few /hpf; Glucose,Urine (UA) Negative (Negative); Ketones,Urine 1+ (Negative); Leukocyte Esterase,Urine Small (Negative); Mucus,Urine Few /hpf; Nitrite,Urine Negative (Negative); PH, Urine 6.5 (5.0-8.0); Particle Count 16863; Protein,Urine Trace (Negative); RBC,Urine 97 /hpf (0-5); Squamous Epithelial Cell,Urine 1 /hpf (0-4); UA Billing (MACRO vs. MICRO) MICRO; WBC,Urine 14 /hpf (0-5)
[2016-07-28] MEDS: IPRATROPIUM-ALBUTEROL 3 ML NEB INHALATION SCH ×2 (15:45→20:46)
[2016-07-28] MEDS: SODIUM CHLORIDE 0.9% 1,000 ML IV SCH (16:11)
[2016-07-28] MEDS: FOLIC ACID 1 MG TAB PO SCH (16:42)
[2016-07-28] MEDS: CHOLECALCIFEROL 1,000 UNIT TAB PO SCH (16:42)
[2016-07-28] MEDS: PANTOPRAZOLE 40 MG TABLET PO SCH (16:42)
[2016-07-28] MEDS: CYCLOBENZAPRINE 10 MG TAB PO SCH ×2 (16:42→20:54)
[2016-07-28] MEDS: HYDROmorphone 1 MG/ML 1 ML SYRINGE IV PRN (18:48)
[2016-07-28] MEDS ORDERED: LACTULOSE 20 GM/30 ML CUP PO ONE (19:00)
--- NOTE | 2016-07-28 19:46 | XR ---
Lumbar spine history: Chronic back pain 3 views of the lumbar spine Correlation to CT abdomen pelvis 22 July 2016 Bone mineralization is reduced. T12 fracture is again noted. Superior endplate L2 also shows depressi on. T10 fracture not included. There is retained contrast from prior exam within the kidneys and blad temi. IMPRESSION: Osteoporotic compression fractures are suspected. There may be retropulsion at T12.
[2016-07-28] MEDS: SYMBICORT 160-4.5 MCG INHALER INHALATION SCH (20:46)
[2016-07-28] MEDS: SENNOSIDES 8.6 MG TAB PO SCH (20:54)
[2016-07-28] MEDS: MONTELUKAST 10 MG TAB PO SCH (20:54)
[2016-07-28] MEDS: MORPHINE SULFATE ER 30 MG TABLET PO SCH (20:57)
[2016-07-28] MEDS: ZOLPIDEM 5 MG TAB PO SCH (20:57)
[2016-07-28] MEDS: FAMOTIDINE 20 MG TAB PO SCH (21:01)
[2016-07-28] MEDS: HYDROcodone/APAP 5-325MG 1 EACH TAB PO SCH (21:01)
[2016-07-28] MEDS: NAPROXEN 250 MG TAB PO SCH (21:01)
[2016-07-28] MEDS: ENOXAPARIN 40 MG/0.4 ML SYRINGE SQ SCH (21:01)
[2016-07-29] MEDS: HYDROcodone/APAP 5-325MG 1 EACH TAB PO SCH ×4 (00:02→17:12)
[2016-07-29] MEDS: SODIUM CHLORIDE 0.9% 1,000 ML IV SCH ×2 (02:04→17:15)
[2016-07-29] MEDS: HYDROmorphone 1 MG/ML 1 ML SYRINGE IV PRN ×3 (03:30→13:14)
[2016-07-29] MEDS: PANTOPRAZOLE 40 MG TABLET PO SCH ×2 (07:29→17:13)
[2016-07-29] MEDS: ENOXAPARIN 40 MG/0.4 ML SYRINGE SQ SCH (07:29)
[2016-07-29] MEDS: FAMOTIDINE 20 MG TAB PO SCH (07:29)
[2016-07-29] MEDS: CYCLOBENZAPRINE 10 MG TAB PO SCH ×3 (07:29→22:01)
[2016-07-29] MEDS: predniSONE 20 MG TAB PO SCH (07:30)
[2016-07-29] MEDS: NAPROXEN 250 MG TAB PO SCH ×2 (07:30→22:02)
[2016-07-29] MEDS: POLYETHYLENE GLYCOL 3350 17 GM POWD.PACK PO SCH (07:30)
[2016-07-29] MEDS: HYDROCHLOROTHIAZIDE 12.5 MG CAP PO SCH (07:31)
[2016-07-29] MEDS: MORPHINE SULFATE ER 30 MG TABLET PO SCH ×2 (07:32→22:01)
[2016-07-29] MEDS ORDERED: ALBUTEROL NEBULIZED 2.5 MG/3 ML INHALATION SCH (08:00)
[2016-07-29] MEDS: SYMBICORT 160-4.5 MCG INHALER INHALATION SCH ×2 (08:37→20:38)
[2016-07-29] MEDS: IPRATROPIUM-ALBUTEROL 3 ML NEB INHALATION SCH ×4 (08:37→20:38)
--- NOTE | 2016-07-29 09:45 | HP ---
DATE OF ADMISSION: 07/28/2016 PRESENTING COMPLAINT: Acute low back pain. HISTORY OF PRESENTING COMPLAINT: This is a very pleasant 66-year-old patient of Dr. Gallardo. Patient's chronic stable medical conditions include asthma, GERD, arthritis in multiple joints. The patient has been diagnosed with compression fracture of the vertebra. Patient presented with worsening low back pain radiating to the abdomen in the front. Does not radiate down the leg. Sometimes affecting the walking. No trouble in bowel or urine. Patient's pain is too much; hence she decided to come in. No fever. Able to tolerate a diet. Some constipation is present. REVIEW OF SYSTEMS: CONSTITUTIONAL: Tired. HEENT: None. RESPIRATORY: Occasional wheezing. CARDIOVASCULAR: None. GASTROINTESTINAL: Constipation. GENITOURINARY: Urinary stress incontinence. DERMATOLOGICAL: Dry skin. HEMATOLOGICAL: None. LYMPHATICS: None. PSYCHIATRY: None. NEUROLOGICAL: Trouble sleeping. Past medical history of asthma, GERD, compression of the disc. PAST SURGICAL HISTORY: Cataract left eye with repair of macular hole, tubal ligation. SOCIAL HISTORY: No smoking. Alcohol occasionally. Lives by herself. Family history of colon cancer. HOME MEDICATIONS: 1. Folic acid 1 mg a day. 2. Vitamin D3, 2000 units p.o. daily. 3. Prednisone 10 mg p.o. daily. 4. MiraLAX 17 grams p.o. daily. 5. Senokot 8.6 mg p.o. q.h.s. 6. Omeprazole 20 mg p.o. b.i.d. 7. MS Contin 30 mg p.o. q.12. 8. Singulair 10 mg p.o. q.h.s. 9. Methotrexate 12.5 p.o. on Mondays. 10. Hydrochlorothiazide 12.5 p.o. Friday, Friday and Friday. 11. [place] 5 one tablet q.4 p.r.n. 12. Flexeril 10 mg p.o. t.i.d. 13. Symbicort 160/4.5 two puffs b.i.d. 14. Fosamax 100 mg on . 15. Proventil 2 puffs q.6 p.r.n. 16. Ventolin nebulizer 2.5 b.i.d. Allergies to LASIX. On examination, temperature 97.7, pulse 83, respiration 18, blood pressure 120/58, pulse ox 95% on 2 L 96% on room air. GENERAL APPEARANCE: Well built, BMI of 34.3, lying in bed, tired appearing. EYES: Pupils equal. Conjunctivae normal. HEENT: Oral cavity normal. NECK: JVD not raised. Mass not palpable. RESPIRATORY: Effort. LUNGS: Mild wheezing. CARDIOVASCULAR: First and second sounds normal. No edema. ABDOMEN: Mild right-sided tenderness. No guarding or rigidity. Liver and spleen not palpable. LYMPHATIC: No lymph node palpable in. PSYCHIATRY: Alert and oriented x3. Mood and affect slightly anxious appearing. NEUROLOGICAL: Pupils equal. Cranial nerves grossly intact. ( ) her legs. Reflexes are equal. Skin is dry. MUSCULOSKELETAL: Also patient has got evidence of osteoarthritis especially the hands and knees and tenderness in the lower lumbar area. INVESTIGATIONS: White count 9.5, hemoglobin 12.9. Potassium 3.4. BUN 24. creatinine 0.84. The patient's chest CTA shows a large hiatal hernia, no PE. Patient's CT of the abdomen done a week ago showed compression fracture of L2, T12, T10 and T7 and diverticulosis. ASSESSMENT: 1. Acute on chronic compression fracture multiple vertebra including T7, T10, T12 and L2 causing intractable pain and difficulty to walk. 2. Chronic constipation from pain medication. 3. Colonic diverticulosis. 4. Chronic insomnia from medical reasons. 5. Chronic urinary stress incontinence. 6. Obesity, body mass index 34.2. 7. Moderate persistent asthma. 8. Gastroesophageal reflux disease. PLAN: Patient already on significant pain medications. Will add NSAIDs and a heating pad and get Dr. Gallardo to see the patient. Patient should be assessed for kyphoplasty. For insomnia will add some Ambien. For constipation, will add lactulose. Patient is already on MiraLAX. Other home medication are resumed. Care was discussed with the patient. For nonspecific abdominal pain, will get a surgical opinion. Also get a consult Dr. Salazar from orthopedic spine. Care was discussed with the patient. Questions were answered. The patient has already had a visit to the ER. Patient will need at least a 2 night stay so we can get her pain better controlled and get the patient to walk better. Otherwise, patient will keep visiting the ER and hence will need 2 night stay to sort this out.
[2016-07-29] MEDS ORDERED: METHOTREXATE SODIUM 2.5 MG TAB PO SCH (12:00)
--- NOTE | 2016-07-29 12:35 | P.GSCN ---
History of Present Illness Consult date: 07/29/16 History of present illness: the patient is a 66-year-old white female who was admitted through the emergency room with a complaint of symptoms. Thoracic back pain. She states that she has been taking [place] for the pain without relief. The pain started after she fell several weeks ago and was told she had some ruptured disc in her back. The patient following the hospital now is complaining of pain in her right flank as well. Additionally she states she has a decreased appetite. She has had no nausea or vomiting. Past surgical history: tubal ligation Past medical history: skin cancer ruptured disc in her back Sepsis related to her kidneys review of systems: HEENT cataract left eye with repair of macular hole Lungs: Asthma Heart: CHF GI: Negative : Kidney stones Social history: Smoking: Negative Alcohol: Socially twice a month Review of Systems - Constitutional Reports as per HPI - Cardiovascular Cardiovascular Comment(s): history of CHF - Respiratory Reports as per HPI - Gastrointestinal Reports as per HPI - Musculoskeletal Musculoskeleta Comment(s): history of ruptured disc in her back Past Medical History Past Medical History: Asthma, Cancer, GERD/Reflux Additional Past Medical History / Comment(s): SKIN CANCER, HERNIATED DISCS, STATES HX OF SEPSIS WHICH AFFECTED HER KIDNEYS BUT THEY ARE OK NOW., STATES PROBLEM WITH DIARRHEA IN PAST. History of Any Multi-Drug Resistant Organisms: None Reported Past Surgical History: Tubal Ligation Additional Past Surgical History / Comment(s): CATARACT LEFT EYE WITH REPAIR OF MACULAR HOLE. Past Anesthesia/Blood Transfusion Reactions: No Reported Reaction Past Psychological History: No Psychological Hx Reported Smoking Status: Never smoker Past Alcohol Use History: Occasional Past Drug Use History: None Reported - Past Family History Mother Family Medical History: Cancer Additional Family Medical History / Comment(s): COLON CANCER Medications and Allergies Home Medications Medication Instructions Recorded Confirmed Type Folic Acid 1 mg PO DAILY 10/19/15 07/28/16 History Albuterol Nebulized [Ventolin 2.5 mg INHALATION RT-BID@0800,1700 07/22/16 History Nebulized] Albuterol Sulfate [Proventil Hfa] 2 puff INHALATION RT-Q6H PRN 07/22/16 History Alendronate Sodium [Fosamax] 70 mg PO TH 07/22/16 07/28/16 History Budesonide/Formoterol Fumarate 2 puff INHALATION RT-BID 07/22/16 07/28/16 History [Symbicort 160-4.5 Mcg Inhaler] Cholecalciferol [Vitamin D3] 2,000 unit PO DAILY 07/22/16 07/28/16 History Cyclobenzaprine [Flexeril] 10 mg PO TID 07/22/16 07/28/16 History HYDROcodone/APAP 5-325MG [[place] 1 tab PO Q4HR PRN 07/22/16 07/28/16 History 5-325] Hydrochlorothiazide [Hydrodiuril] 12.5 mg PO MOWEFR 07/22/16 07/28/16 History Montelukast [Singulair] 10 mg PO HS 07/22/16 07/28/16 History Morphine Sulfate [Ms Contin] 30 mg PO Q12HR 07/22/16 07/28/16 History Omeprazole 20 mg PO BID 07/22/16 07/28/16 History Polyethylene Glycol 3350 [Miralax] 17 gm PO DAILY 07/22/16 07/28/16 History Sennosides [Senokot] 8.6 mg PO HS 07/22/16 07/28/16 History predniSONE 10 mg PO DAILY 07/22/16 07/28/16 History Methotrexate Sodium [Methotrexate] 12.5 mg PO MO 07/28/16 07/28/16 History Allergies Allergy/AdvReac Type Severity Reaction Status Date / Time furosemide [From Lasix] AdvReac Rash/Hives Verified 07/28/16 14:40 Surgical - Exam Vital Signs Temp Pulse Resp BP Pulse Ox 97.7 F 92 20 166/82 100 07/28/16 07:24 07/28/16 07:24 07/28/16 07:24 07/28/16 07:24 07/28/16 07:24 - General well developed, moderate distress - Eyes normal ocular movement - ENT normal pinna, normal nares, no hearing loss - Neck no masses, trachea midline, no lymphadectomy, no venous distension - Respiratory normal expansion, normal respiratory effort, clear to auscultation - Cardiovascular Rhythm: regular Heart Sounds: normal: S1, S2 - Abdomen Abdomen: soft, non tender, bowel sounds - Psychiatric oriented to time, oriented to person, oriented to place, speech is normal Results - Labs 07/28/16 09:05 07/28/16 09:05 Abnormal Lab Results - Last 24 Hours (Table) 07/28/16 Range/Units 12:40 Urine Appearance Cloudy H (Clear) Ur Specific [place] 1.050 H (1.001-1.035) Urine Protein Trace H (Negative) Urine Ketones 1+ H (Negative) Urine Blood Moderate H (Negative) Ur Leukocyte Esterase Small H (Negative) Urine RBC 97 H (0-5) /hpf Urine WBC 14 H (0-5) /hpf Calcium Oxalate Crystal Few H (None) /hpf Urine Mucus Few H (None) /hpf - Imaging CT scan - chest: report reviewed CT scan - pelvis: report reviewed, image reviewed US - abdomen: report reviewed (multiple compression deformities of the spine noted on computed tomography scan, sigmoid diverticulosis, mild fecal retention , abnormality in the parenchyma of the kidney clear on the right than the left) , image reviewed Assessment and Plan Plan: impression/plan: 1. Multiple compression fractures of the spine with possible retropulsion at T12 2. Kidney disease with changes noted on CAT scan of the kidneys 3. Back pain 4. Right flank pain 5. Normal liver function studies Plan: 1. Continue treatment of back pain 2. Consider evaluation of flank pain related to kidney disease 3. Patient does not have an acute surgical abdomen at this time
--- NOTE | 2016-07-29 15:07 | P.CNOR ---
History of Present Illness - [facility] Consult date: 07/29/16 Requesting physician: Chencho Gonsales Consult reason: fracture (Multiple thoracic and lumbar compression fractures), low back pain, back pain (Thoracic back pain) History of present illness: Patient is a very pleasant and well known 66-year-old female who is seen and examined at bedside for further evaluation for significant ongoing thoracic back pain. She's been previously seen and evaluated in our office in March 2015. Patient sustained a fall approximately 3 weeks ago and presented to [facility] for further evaluation. At that time a TLSO brace was ordered and fitted for the patient. She remained in the hospital for approximately 4 days before being discharged to [facility]. She states she spent 5 days and rehab without significant relief of her symptoms. She was subsequently discharged. Since that time her back pain has been uncontrollable. She presented to [facility] for evaluation. She has been admitted for pain control as well as dehydration. She was also found to have a large right renal stone. Patient states prior to her fall 3 weeks ago she had been working approximately 50 hours a week without significant difficulty. She states her pain is most significant along the bra line of the throacic spine along the midline, at the lateral aspect of the mid to lower thoracic spine, and at the lower lumbar spine and right sacroiliac joint. Her pain at the midline of the thoracic spine is exacerbated with movements of the thoracic and lumbar spines. She is currently experiencing increased right-sided lateral thoracic pain at rest. She denies any lower extremity weakness or radiculopathy bilaterally. Since admittance, she is also being treated for dehydration. Past Medical History Past Medical History: Asthma, Cancer, GERD/Reflux Additional Past Medical History / Comment(s): SKIN CANCER, HERNIATED DISCS, STATES HX OF SEPSIS WHICH AFFECTED HER KIDNEYS BUT THEY ARE OK NOW., STATES PROBLEM WITH DIARRHEA IN PAST. History of Any Multi-Drug Resistant Organisms: None Reported Past Surgical History: Tubal Ligation Additional Past Surgical History / Comment(s): CATARACT LEFT EYE WITH REPAIR OF MACULAR HOLE. Past Anesthesia/Blood Transfusion Reactions: No Reported Reaction Past Psychological History: No Psychological Hx Reported Smoking Status: Never smoker Past Alcohol Use History: Occasional Past Drug Use History: None Reported - Past Family History Mother Family Medical History: Cancer Additional Family Medical History / Comment(s): COLON CANCER Medications and Allergies Home Medications Medication Instructions Recorded Confirmed Type Folic Acid 1 mg PO DAILY 10/19/15 07/28/16 History Albuterol Nebulized [Ventolin 2.5 mg INHALATION RT-BID@0800,1700 07/22/16 History Nebulized] Albuterol Sulfate [Proventil Hfa] 2 puff INHALATION RT-Q6H PRN 07/22/16 History Alendronate Sodium [Fosamax] 70 mg PO TH 07/22/16 07/28/16 History Budesonide/Formoterol Fumarate 2 puff INHALATION RT-BID 07/22/16 07/28/16 History [Symbicort 160-4.5 Mcg Inhaler] Cholecalciferol [Vitamin D3] 2,000 unit PO DAILY 07/22/16 07/28/16 History Cyclobenzaprine [Flexeril] 10 mg PO TID 07/22/16 07/28/16 History HYDROcodone/APAP 5-325MG [[place] 1 tab PO Q4HR PRN 07/22/16 07/28/16 History 5-325] Hydrochlorothiazide [Hydrodiuril] 12.5 mg PO MOWEFR 07/22/16 07/28/16 History Montelukast [Singulair] 10 mg PO HS 07/22/16 07/28/16 History Morphine Sulfate [Ms Contin] 30 mg PO Q12HR 07/22/16 07/28/16 History Omeprazole 20 mg PO BID 07/22/16 07/28/16 History Polyethylene Glycol 3350 [Miralax] 17 gm PO DAILY 07/22/16 07/28/16 History Sennosides [Senokot] 8.6 mg PO HS 07/22/16 07/28/16 History predniSONE 10 mg PO DAILY 07/22/16 07/28/16 History Methotrexate Sodium [Methotrexate] 12.5 mg PO MO 07/28/16 07/28/16 History Allergies Allergy/AdvReac Type Severity Reaction Status Date / Time furosemide [From Lasix] AdvReac Rash/Hives Verified 07/28/16 14:40 Physical Examination Physical exam: Patient is awake, alert, and oriented 3 Vital signs stable Good chest excursion with deep inspiration and expiration Abdomen soft nontender Examination of thoracic and lumbar spine reveals skin is intact with no abrasions, lacerations, or bruises; no erythema, purulence or signs of infection Pain with palpation along the midline of the mid thoracic spine along the midline, far right lateral mid to lower thoracic spine, and lower lumbar spine and right sacroiliac joint Dorsiflexion, plantarflexion, and extensor hallucis longus positive sustained bilaterally Lower extremity strength 5/5 bilaterally No lower extremity hyperreflexia bilaterally No signs or symptoms of DVT; no calf pain No pain with internal and external rotation of the hips bilaterally Neurovascularly intact Results Studies: X-rays lumbar spine: Osteoporotic compression fractures suspected; compression fracture deformities at T11 superior endplate compression fracture deformity with approximately 15% height loss, T12 with approximately 75% height loss and L2 approximately 20% height loss superiorly CT of the chest: Multiple compression fracture deformities appeared to be at T7 with approximatly 75% height loss, T8 with approximately 20% height loss, T10 with approximately 75% height loss, T11 with approximately 15% height loss and T12 approximately 80% height loss of indeterminate age that are not reported in the impression; no acute pulmonary embolism; mild compressive atelectasis Chest x-ray: Large right renal stone of the mid kidney measuring approximately 2.4 cm x 1.5 cm - Labs Labs: Abnormal Lab Results - Last 24 Hours (Table) 07/28/16 Range/Units 12:40 Urine Appearance Cloudy H (Clear) Ur Specific [place] 1.050 H (1.001-1.035) Urine Protein Trace H (Negative) Urine Ketones 1+ H (Negative) Urine Blood Moderate H (Negative) Ur Leukocyte Esterase Small H (Negative) Urine RBC 97 H (0-5) /hpf Urine WBC 14 H (0-5) /hpf Calcium Oxalate Crystal Few H (None) /hpf Urine Mucus Few H (None) /hpf Result Diagrams: 07/28/16 09:05 07/28/16 09:05 Assessment and Plan (1) Status post fall Status: Acute (2) Thoracic compression fracture Status: Acute (3) Lumbar compression fracture Status: Acute (4) Dehydration Status: Acute (5) Failure of outpatient treatment Status: Acute (6) Intractable pain Status: Acute (7) Thoracic back pain Status: Acute Plan: Assessment: Status post fall Intractable thoracic and lumbar back pain Acute T8 compression fracture deformity status post fall Multiple compression fracture deformities at T7, T10, T11, T12, and L2 that appear to be stable and chronic in nature Failure of outpatient treatment Dehydration Large right renal stone with right far lateral mid and lower thoracic pain Plan: 1. After further examination of the patient, discussion with the patient, and reviewing of imaging, we discussed I will currently plan to discuss her in detail with Dr. Titi Salazar and review previous imaging and office notes at our office at [facility]. Prior to completion of this note , I have been able to review these previous notes and imagings. Her multiple compression fractures at T7, T10, T11, T12, and L2 appear to be chronic in nature and appear to be stable. There are no significant changes found within these multiple compression fractures. According to our imaging taken at [facility], the T8 compression fracture appears to be acute as compared to previous study taken on 03/13/2015. Due to her significant symptoms, we will currently plan to treat this compression fracture deformity as acute in nature. We will continue with conservative treatment. While at [facility], she was prescribed a DESAI II TLSO brace. We discussed she should continue to use this brace. She should wear this brace while sitting up at greater than 45, while ambulating, and while doing activities. She does not have to wear this brace while lying in bed or while bathing. At this time, we'll plan to have her follow-up in the outpatient setting in approximately 2-3 weeks for further evaluation. She should avoid excessive bending, twisting, lifting; no lifting greater than 10 pounds. From an orthopedic spine standpoint, patient will be clear for discharge once cleared by medicine and nephrology. 2. Given her far right lateral mid to lower thoracic pain and imaging which shows evidence of a large right renal stone, I will currently plan to consult with Dr. Gonzalez in nephrology for further evaluation and possible treatment. 3. Dr. Li in medicine to continue following the patient 4. Continue pain control 5. I have discussed this patient in detail with Dr. Titi Salazar and he agrees with this plan Time with Patient: Less than 30
[2016-07-29] MEDS: CHOLECALCIFEROL 1,000 UNIT TAB PO SCH (17:13)
[2016-07-29] MEDS: FOLIC ACID 1 MG TAB PO SCH (17:13)
--- NOTE | 2016-07-29 19:18 | P.CNPUL ---
History of Present Illness Consult date: 07/29/16 Chief complaint: Chest pain History of present illness: 6 is 6-year-old female patient, obese, known history of asthma, with known history of compression fracture of the vertebral spine, presented with pain in her lower back radiating to the right upper quadrant and right mid abdominal area. It seems that the pain is more so localized anteriorly and moving posterior to her back. Not the typical compression fracture pain that is encountered usually. No shortness of breath. The pain is somewhat worse with deep breathing however the patient had a CT angios the chest that showed no evidence of any pulmonary embolism. There is some limited patchy infiltrate in the right posterior lobe/right lower lobe along with some pleuritic irregularities posteriorly in the right lung base. Nevertheless, the abnormality was not enough to explain the patient's symptoms. The patient was admitted for for further workup. No nausea. No vomiting. No diarrhea. No bloody bowel movements. No chills. No fever. No falls pain no trauma to the back or side. No overlying skin rashes. No shingles. The x-ray of the abdomen raised the suspicion for a right renal stone measuring 2.4 x 1.5 cm in size. The x-ray of the lumbar spine showed osteophytic compression fracture and it was suspected at T12. T10 fracture was not completely excluded. The patient was seen by orthopedic surgery and general surgery in both signed off. I came to realize that the patient's urinalysis was also normal. There is increased red blood cells and some oxalate crystals seen. Review of Systems 12 point review of system was done and the positive findings are almost above history of present illness Past Medical History Past Medical History: Asthma, Cancer, GERD/Reflux Additional Past Medical History / Comment(s): Bronchial asthma, compression fracture of the T-spine, osteoporosis, skin cancer, history of sepsis of urinary source, sigmoid diverticulosis, compression fracture of the L2 spine, compression fracture of the T12 spine, compression fracture of the T7 spine History of Any Multi-Drug Resistant Organisms: None Reported Past Surgical History: Tubal Ligation Additional Past Surgical History / Comment(s): CATARACT LEFT EYE WITH REPAIR OF MACULAR HOLE. Past Anesthesia/Blood Transfusion Reactions: No Reported Reaction Past Psychological History: No Psychological Hx Reported Smoking Status: Never smoker Past Alcohol Use History: Occasional Past Drug Use History: None Reported - Past Family History Mother Family Medical History: Cancer Additional Family Medical History / Comment(s): COLON CANCER Medications and Allergies Home Medications Medication Instructions Recorded Confirmed Type Folic Acid 1 mg PO DAILY 10/19/15 07/28/16 History Albuterol Nebulized [Ventolin 2.5 mg INHALATION RT-BID@0800,1700 07/22/16 History Nebulized] Albuterol Sulfate [Proventil Hfa] 2 puff INHALATION RT-Q6H PRN 07/22/16 History Alendronate Sodium [Fosamax] 70 mg PO TH 07/22/16 07/28/16 History Budesonide/Formoterol Fumarate 2 puff INHALATION RT-BID 07/22/16 07/28/16 History [Symbicort 160-4.5 Mcg Inhaler] Cholecalciferol [Vitamin D3] 2,000 unit PO DAILY 07/22/16 07/28/16 History Cyclobenzaprine [Flexeril] 10 mg PO TID 07/22/16 07/28/16 History HYDROcodone/APAP 5-325MG [[place] 1 tab PO Q4HR PRN 07/22/16 07/28/16 History 5-325] Hydrochlorothiazide [Hydrodiuril] 12.5 mg PO MOWEFR 07/22/16 07/28/16 History Montelukast [Singulair] 10 mg PO HS 07/22/16 07/28/16 History Morphine Sulfate [Ms Contin] 30 mg PO Q12HR 07/22/16 07/28/16 History Omeprazole 20 mg PO BID 07/22/16 07/28/16 History Polyethylene Glycol 3350 [Miralax] 17 gm PO DAILY 07/22/16 07/28/16 History Sennosides [Senokot] 8.6 mg PO HS 07/22/16 07/28/16 History predniSONE 10 mg PO DAILY 07/22/16 07/28/16 History Methotrexate Sodium [Methotrexate] 12.5 mg PO MO 07/28/16 07/28/16 History Allergies Allergy/AdvReac Type Severity Reaction Status Date / Time furosemide [From Lasix] AdvReac Rash/Hives Verified 07/28/16 14:40 Physical Exam Vitals: Vital Signs Temp Pulse Pulse Resp BP Pulse Ox 07/29/16 16:26 88 07/29/16 16:14 84 07/29/16 16:00 16 07/29/16 15:00 96.4 F L 88 16 102/54 95 07/29/16 12:13 92 07/29/16 12:09 88 07/29/16 08:50 92 07/29/16 08:38 96 07/29/16 07:33 18 07/29/16 07:00 96.7 F L 94 16 130/79 91 L 07/28/16 23:00 97.2 F L 98 18 123/58 95 07/28/16 20:57 88 07/28/16 20:47 88 96 Intake and Output 07/29/16 07/29/16 07/29/16 06:59 14:59 22:59 Other: Voiding Method Bedpan Bedpan # Voids 1 2 # Bowel Movements 3 2 The patient appeared well nourished and normally developed. Vital signs as documented. Head exam is unremarkable. No scleral icterus or corneal arcus noted. Neck is without jugular venous distension, thyromegaly, or carotid bruits. Carotid upstrokes are brisk bilaterally. Lungs are clear to auscultation and percussion. Cardiac exam reveals the PMI to be normally sized and situated. Rhythm is regular. First and second heart sounds normal. No murmurs, rubs or gallops. Abdominal exam reveals normal bowel sounds, no masses , no organomegaly and no aortic enlargement. Extremities are nonedematous and both femoral and pedal pulses are normal. Results - Laboratory Findings CBC and BMP: 07/28/16 09:05 07/28/16 09:05 PT/INR, D-dimer D-Dimer 1.31 mg/L FEU (<0.60) H 07/28/16 09:05 Abnormal lab findings: Abnormal Labs 07/28/16 12:40 Urine Appearance Cloudy H Ur Specific [place] 1.050 H Urine Protein Trace H Urine Ketones 1+ H Urine Blood Moderate H Ur Leukocyte Esterase Small H Urine RBC 97 H Urine WBC 14 H Calcium Oxalate Crystal Few H Urine Mucus Few H - Diagnostic Findings Chest x-ray: image reviewed CT scan - chest: image reviewed Assessment and Plan Plan: Assessment 1 pain involving the right kidney/flank/lower thoracic/upper lumbar area. Exact cause is not clear. This could be resulting from a compression fracture of the T-spine yet the pain itself is a bit unusual knowing this involving the lateral abdomen and anterior abdominal wall area. Rule out nephrolithiasis/ kidney stones. No pulmonary source for this patient's pain and the computed tomography scan of the chest showed no evidence of any pulmonary embolism or any other significant abnormalities in the posterior lung area involving the lower lobe. 2 bronchial asthma or chronic 3 multilevel compression fracture of the thoracic and lumbar spine 4 chronic back pain 5 diverticulosis 6 obesity. 7 urinary incontinence with stress urinary type. Plan Pulmonary we'll watch the workup and the input of other physicians involved in the patient's care. We do not think this is of a pulmonary source location and exact nature of the radiation of this pain. We are however interested in following up this patient's bronchial asthma and be involved in any form of pulmonary complications should they arise.
[2016-07-29] MEDS: MONTELUKAST 10 MG TAB PO SCH (22:01)
[2016-07-29] MEDS: ZOLPIDEM 5 MG TAB PO SCH (22:01)
[2016-07-29] MEDS: SENNOSIDES 8.6 MG TAB PO SCH (22:01)
[2016-07-30] MEDS: SODIUM CHLORIDE 0.9% 1,000 ML IV SCH ×2 (02:09→08:41)
[2016-07-30] MEDS: HYDROcodone/APAP 5-325MG 1 EACH TAB PO SCH ×4 (03:22→17:07)
[2016-07-30] MEDS: IPRATROPIUM-ALBUTEROL 3 ML NEB INHALATION SCH ×4 (07:37→21:15)
[2016-07-30] MEDS: SYMBICORT 160-4.5 MCG INHALER INHALATION SCH ×2 (07:37→21:15)
--- NOTE | 2016-07-30 08:24 | PN ---
DATE OF SERVICE: 07/29/2016 PRESENTING COMPLAINT: Acute low back pain. HISTORY OF PRESENT ILLNESS: The patient was diagnosed with a compression fracture of the vertebra. Patient presented with worsening low back pain radiating to the abdomen and to the front. Did not radiate down the left, sometimes effecting walking. No trouble with bowel or urine. Today patient's pain continued to persist. Review of systems done for constitutional, cardiovascular, GI, pulmonary, musculoskeletal; relevant findings as above. Current medications include acetaminophen 650 mg q.6h, DuoNeb q.i.d., Symbicort 2 puffs b.i.d., cholecalciferol daily, Flexeril 10 mg three times a day, Lovenox 40 mg subcu daily, folic acid 1 mg daily, hydrochlorothiazide 12.5 mg Friday, Friday, Friday. [place] 1 tab 5/325 every 6 hours, hydromorphone 1 mg IV every 3 hours, methotrexate 12.5 mg on Friday, Singulair 10 mg daily, morphine sulfate, MS Contin 30 mg q.12h, Naproxen 500 mg b.i.d., Protonix 40 mg b.i.d. prednisone 20 mg p.o. daily, Senna 8.6 mg p.o. daily, Ambien 2.5 mg at bedtime. On exam, temperature 96.4, pulse 88, respiratory rate 16, blood pressure 102/54, oxygen saturation 95 on 2-L nasal cannula. GENERAL APPEARANCE: Well built, BMI of 34.3, lying in bed, tired appearing. EYES: Pupils equal. Conjunctivae normal. HEENT: Oral cavity normal. NECK: JVD not raised. Mass is not palpable. RESPIRATORY: Effort unlabored. LUNGS: Mild wheezing noted. CARDIOVASCULAR: First and second sounds heard. No edema noted. ABDOMEN: Right-sided tenderness. No guarding or rigidity. Liver and spleen not palpable. LYMPHATICS: No lymph nodes palpable. PSYCHIATRY: Alert and oriented x3, mood and affect slightly anxious appearing. NEUROLOGIC: Pupils equal. Cranial nerves grossly intact. No numbness or tingling to her legs. Reflexes equal bilaterally. SKIN: Dry. MUSCULOSKELETAL: Patient has evidence of osteoarthritis especially the hands and knees. Tenderness in the lower lumbar area. Pain persists to the lumbar spine. ASSESSMENT: 1. Acute on chronic compression fracture multiple vertebrae including T7, T8, T10, T12, L2. T8 is new and L2 causing intractable pain and difficulty for her to walk. Orthopedics has seen the patient and as ordered an LSO brace. 2. Chronic constipation from pain medications. 3. Chronic diverticulosis. 4. Chronic insomnia from medical reasons. 5. Chronic urinary stress incontinence. 6. Obesity, body mass index of 34.2. 7. Moderate persistent asthma. 8. Gastroesophageal reflux disease. PLAN: Patient is already on significant pain medications. Consult placed for Dr. Ball for pain management. NSAIDs have been added and a heating pad and also Dr. Gallardo is to see the patient. Orthopedics will assess for kyphoplasty and has ordered the LSO brace. Insomnia, Ambien has been added. For constipation, lactulose was prescribed with good results. Patient continues on MiraLAX. The H&P was performed on the patient by me/nurse practitioner and attending/Dr. Li. The relevant and lopez points of the H&P, diagnoses, plan is as dictated above.
[2016-07-30] MEDS: PANTOPRAZOLE 40 MG TABLET PO SCH ×2 (08:40→17:07)
[2016-07-30] MEDS: NAPROXEN 250 MG TAB PO SCH ×2 (08:40→20:34)
[2016-07-30] MEDS: ENOXAPARIN 40 MG/0.4 ML SYRINGE SQ SCH (08:40)
[2016-07-30] MEDS: MORPHINE SULFATE ER 30 MG TABLET PO SCH ×2 (08:40→20:35)
[2016-07-30] MEDS: CYCLOBENZAPRINE 10 MG TAB PO SCH ×3 (08:40→21:07)
[2016-07-30] MEDS: predniSONE 20 MG TAB PO SCH (08:41)
[2016-07-30] MEDS: POLYETHYLENE GLYCOL 3350 17 GM POWD.PACK PO SCH (08:41)
--- NOTE | 2016-07-30 09:16 | P.PN ---
Subjective patient is a 66-year-old white female admitted through the emergency room with a complaint of back pain. She had been taking [place] for the pain without relief.: Hospital the patient began experiencing some right flank pain and now is stating that she has some right lower quadrant abdominal discomfort as well. The patient has been tolerating diet without difficulty. She has been having bowel movements without difficulty. the patient does have a history of prior kidney stones. She has an x-ray with a questionable right renal stone. Additionally she has some increased red cells in her urine and oxalate crystals. Objective - Vital Signs Vital signs: Vital Signs Temp 97.6 F 07/30/16 07:00 Pulse 84 07/30/16 07:47 Resp 16 07/30/16 07:00 BP 125/69 07/30/16 07:00 Pulse Ox 97 07/30/16 07:37 Intake & Output 07/29/16 07/30/16 07/30/16 18:59 06:59 18:59 Other: Voiding Method Bedpan Bedpan # Voids 2 2 # Bowel Movements 2 1 - Constitutional General appearance: Present: obese - Respiratory Details: decreased breath sounds at the bases - Cardiovascular Rhythm: regular Heart sounds: normal: S1, S2 - Gastrointestinal Gastrointestinal Comment(s): no guarding or rebound Some right flank tenderness General gastrointestinal: Present: normal bowel sounds, soft - Musculoskeletal Musculoskeletal Comment(s): right flank discomfort to palpation - Psychiatric Psychiatric: Present: A&O x's 3, appropriate affect, intact judgment & insight - Labs CBC & Chem 7: 07/28/16 09:05 07/28/16 09:05 Assessment and Plan Plan: impression/plan: 1. Multiple compression fractures of the spine with possible retropulsion at T12 2. Kidney disease with changes noted on CAT scan of the kidneys 3. Back pain 4. Right flank pain 5. Normal liver function studies Plan: 1. Continue treatment of back pain 2. Consider evaluation of flank pain related to kidney disease 3. Patient does not have an acute surgical abdomen at this time we will follow as needed 4. few oxalate crystals and positive red blood cells in urine known history of kidney stones
--- NOTE | 2016-07-30 10:30 | CDI ---
In responding to this query, please exercise your independent professional judgment. The [facility] Coding Staff and Clinical Documentation Specialists appreciate your assistance in clarifying documentation, maintaining compliance with coding guidelines, accurately documenting patients condition and capturing severity of illness. The fact that a question is asked does not imply that any particular answer is desired or expected. Communication forms are a method of clarifying documentation and are not made part of the Legal Health Record. Thank you in advance for your clarification. Last Revision, June 2015 Grace Swain [address] [place] [address] Documentation Clarification Form Date: 07/30/2016 9:45:00 AM From: Christel Maliha Admit Date: 07/28/2016 12:17:00 PM Patient Name: Angelique Boyle Visit Number: [id number] Discharge Date: Dr. Tete Salazar/Kevin Pantoja PA-C Patient has been diagnosed with thoracic and lumbar compression fracture. History/Risk Factors: Osteoporosis, Herniated Discs, Skin cancer Clinical Indications: Present with intractable thoracic and lumbar back pain no relief with PO pain meds. X-Ray Results: Acute T8 compression fracture deformity. Multiple compression fracture deformities at T7, T10, T11, T12, and L2. Lumbar spine impression: Osteoporotic compression fractures are suspected. there may be retropulsion at T12 Treatment: LSO brace Dilaudid IV PRN Morphine Sulfate PO Q 12 IV Fluids Neurological assessment Q4 HRS In your professional opinion, please specify the following: Etiology of fracture: Traumatic (due to) Pathological (specify cause): Osteoporosis Other (please specify) Unable to determine Also, indicate any associated diagnosis/conditions related to the Fracture in your documentation. Please document in your progress notes in order to capture severity of illness and risk of mortality. Include clinical findings that support your diagnosis. FYI: Press F11 to launch patient chart Place X here if this finding has no clinical significance, is not applicable or if you are not able to provide any additional documentation. MTDD
--- NOTE | 2016-07-30 12:40 | CONS ---
DATE OF CONSULTATION: 07/30/2016 REASON FOR CONSULTATION: Right renal calculus. Patient is a 66-year-old female admitted through the emergency room on 07/28 for evaluation of severe back pain. Patient also had some chest pain and a CT angiogram was performed, but showed no evidence of pulmonary embolus. The patient says that her pain actually began approximately one month ago when she sustained a compression fracture of her spine. She says her pain is stabbing and burning and radiates from the region of the right lateral ribs into her back and sometimes the right lower quadrant. It is not associated with nausea. The pain is aggravated with movement and is relieved by lying supine or remaining still. The patient has no previous history of urolithiasis and no history of gross hematuria. She was noted to have some pyuria and hematuria while hospitalized on 07/22, but a urine culture at that time appeared to be contaminated with skin rocio. CT scan of the abdomen and pelvis on 07/22 identified a 5 x 17 x 7 mm nonobstructive calculus in the upper pole of the right kidney. The calculus was also visible on the CT angiogram and there did not appear to be any evidence of hydronephrosis or delayed function of the right kidney. Patient has no previous history of urolithiasis. She says she has had occasional urinary tract infections in the past, but has had no infections recently. She has a history of urinary incontinence which dates back over 5 years. She says she began wearing a pad at that time and currently wears 5 pads daily. The incontinence sometimes occurs with coughing and straining. She says she usually voids every 3 to 4 hours during the day and once at night. Patient's past medical history is significant in regard to osteoporosis. She says she has had 3 other compression fractures of the spine over the last 4 years. She has a history as of asthma and GERD. She has previously undergone bilateral tubal ligation and cataract surgery. Current medications include [place] for pain, DuoNeb and Symbicort inhalers, Flexeril, Lovenox, folic acid, HydroDIURIL, methotrexate, Singulair, MS Contin, Protonix, MiraLax and prednisone. The patient said she had been taking Fosamax prior to admission. REVIEW OF SYSTEMS: Significant mainly in regard to the above. The patient denies any shortness of breath. At the present time she has no further anterior chest pain. SOCIAL HISTORY: Patient is a and is a nonsmoker. Physical exam reveals an obese 66-year-old female who is alert and oriented. Blood pressure 125/69. HEENT: No supraclavicular or cervical adenopathy. CHEST: Breathing is unlabored. ABDOMEN: Obese. There is vague tenderness in the right flank over the lower costal margin. There is also some vague tenderness in the right lower quadrant to palpation. No hepatosplenomegaly or focal abdominal mass. PELVIC EXAM: Normal vaginal introitus. There is good support of the urethra and no evidence of stress incontinence with coughing or straining in the supine position and no evidence of significant cystocele or rectocele. I personally reviewed the patient's CT scans dated 07/28 and 07/22. She appears to have a 5 x 7 x 17 mm calculus, which is located in the upper pole of the right kidney. There is no hydronephrosis or evidence of obstruction related to the calculus. BUN is 24, creatinine is 0.84. Urinalysis showed 97 red cells and 14 white cells. IMPRESSION: 1. Right renal calculus - this is nonobstructive and I told the patient that the character of her pain is not typical for renal colic. 2. Right flank and back pain - the patient has a history of several vertebral body compression fractures and her pain to me is more suggestive of pain from this etiology. The patient says that her severe pain began one month ago when she says she had her most recent fracture. RECOMMENDATION: I am in agreement with further orthopedic evaluation for her flank pain. I discussed elective treatment of the patient's right renal calculus via either ESWL or percutaneous nephrostolithotomy but I told her that I not sure that her pain will be relieved by removal of the calculus. Patient also has urinary incontinence and I told her that an outpatient evaluation including urodynamics could be set up following discharge if she wishes to pursue this. Thank you for allowing me to participate in the care of this patient. ESTELA
--- NOTE | 2016-07-30 16:07 | P.PN ---
Subjective 66-year-old female patient, obese, known history of asthma, with known history of compression fracture of the vertebral spine, presented with pain in her lower back radiating to the right upper quadrant and right mid abdominal area. It seems that the pain is more so localized anteriorly and moving posterior to her back. Not the typical compression fracture pain that is encountered usually. No shortness of breath. The pain is somewhat worse with deep breathing however the patient had a CT angios the chest that showed no evidence of any pulmonary embolism. There is some limited patchy infiltrate in the right posterior lobe/right lower lobe along with some pleuritic irregularities posteriorly in the right lung base. Nevertheless, the abnormality was not enough to explain the patient's symptoms. The patient was admitted for for further workup. No nausea. No vomiting. No diarrhea. No bloody bowel movements. No chills. No fever. No falls pain no trauma to the back or side. No overlying skin rashes. No shingles. The x-ray of the abdomen raised the suspicion for a right renal stone measuring 2.4 x 1.5 cm in size. The x-ray of the lumbar spine showed osteophytic compression fracture and it was suspected at T12. T10 fracture was not completely excluded. The patient was seen by orthopedic surgery and general surgery in both signed off. I came to realize that the patient's urinalysis was also normal. There is increased red blood cells and some oxalate crystals seen. The patient is seen again today 07/30/2016 in follow-up on the regular medical floor. She is awake and alert in no acute distress. She still has some complaints of right-sided flank pain. Does have a right non-obstructive renal calculus. Has has known compression fractures. She is being followed by surgical services, orthopedic services and urology. No plans for intervention at this time. Denies any shortness of breath, cough or congestion. Her asthma is inactive and stable. Objective - Vital Signs Vital signs: Vital Signs Temp 96.8 F L 07/30/16 15:00 Pulse 89 07/30/16 15:00 Resp 14 07/30/16 15:00 BP 138/61 07/30/16 15:00 Pulse Ox 92 L 07/30/16 15:00 Intake & Output 07/29/16 07/30/16 07/30/16 18:59 06:59 18:59 Other: Voiding Method Bedpan Bedpan # Voids 2 2 3 # Bowel Movements 2 1 - Exam The patient appeared well nourished and normally developed. Vital signs as documented. Head exam is unremarkable. No scleral icterus or corneal arcus noted. Neck is without jugular venous distension, thyromegaly, or carotid bruits. Carotid upstrokes are brisk bilaterally. Lungs are clear to auscultation and percussion. Cardiac exam reveals the PMI to be normally sized and situated. Rhythm is regular. First and second heart sounds normal. No murmurs, rubs or gallops. Abdominal exam reveals normal bowel sounds, no masses , no organomegaly and no aortic enlargement. Extremities are nonedematous and both femoral and pedal pulses are normal. - Labs CBC & Chem 7: 07/28/16 09:05 07/28/16 09:05 Assessment and Plan Plan: Assessment 1 pain involving the right kidney/flank/lower thoracic/upper lumbar area. Exact cause is not clear. This could be resulting from a compression fracture of the T-spine yet the pain itself is a bit unusual knowing this involving the lateral abdomen and anterior abdominal wall area. Nonobstructing right renal calculus. No pulmonary source for this patient's pain and the computed tomography scan of the chest showed no evidence of any pulmonary embolism or any other significant abnormalities in the posterior lung area involving the lower lobe. 2 bronchial asthma, currently inactive and stable 3 multilevel compression fracture of the thoracic and lumbar spine 4 chronic back pain 5 diverticulosis 6 obesity. 7 urinary incontinence with stress urinary type. Plan The patient was seen and evaluated by Dr. Tyler. She is stable from the pulmonary standpoint. No pulmonary complaints. Her asthma is inactive and stable. Continue with her bronchodilators, Symbicort, and Singulair. He could be discharged from the pulmonary standpoint. Needs to be cleared by the other multiple consultants. She will follow-up with Dr. Gallardo in our office in 1-2 weeks' time. She is however encouraged to call sooner should she have any issues regarding her pulmonary status.
[2016-07-30] MEDS: CHOLECALCIFEROL 1,000 UNIT TAB PO SCH (17:07)
[2016-07-30] MEDS: FOLIC ACID 1 MG TAB PO SCH (17:07)
[2016-07-30] MEDS: SENNOSIDES 8.6 MG TAB PO SCH (20:35)
[2016-07-30] MEDS: MONTELUKAST 10 MG TAB PO SCH (20:35)
[2016-07-30] MEDS: ZOLPIDEM 5 MG TAB PO SCH (20:35)
[2016-07-31] MEDS: SODIUM CHLORIDE 0.9% 1,000 ML IV SCH ×2 (03:47→11:19)
[2016-07-31] MEDS: HYDROcodone/APAP 5-325MG 1 EACH TAB PO SCH ×5 (04:45→23:22)
[2016-07-31] MEDS: NAPROXEN 250 MG TAB PO SCH ×2 (08:08→21:19)
[2016-07-31] MEDS: CYCLOBENZAPRINE 10 MG TAB PO SCH ×3 (08:09→21:20)
[2016-07-31] MEDS: POLYETHYLENE GLYCOL 3350 17 GM POWD.PACK PO SCH (08:09)
[2016-07-31] MEDS: PANTOPRAZOLE 40 MG TABLET PO SCH ×2 (08:09→15:15)
[2016-07-31] MEDS: predniSONE 20 MG TAB PO SCH (08:09)
[2016-07-31] MEDS: MORPHINE SULFATE ER 30 MG TABLET PO SCH ×2 (08:09→20:03)
[2016-07-31] MEDS: ENOXAPARIN 40 MG/0.4 ML SYRINGE SQ SCH (08:09)
[2016-07-31] MEDS: HYDROCHLOROTHIAZIDE 12.5 MG CAP PO SCH (08:09)
[2016-07-31] MEDS: IPRATROPIUM-ALBUTEROL 3 ML NEB INHALATION SCH ×4 (08:42→21:21)
[2016-07-31] MEDS: SYMBICORT 160-4.5 MCG INHALER INHALATION SCH ×2 (08:42→21:21)
--- NOTE | 2016-07-31 10:09 | P.CON ---
Consult Note - . Consult date: 07/31/16 Assessment/Plan:: This is a 66-year-old female with history of mid back pain that started about 2 weeks ago when she fell at home. The patient has been getting worse since then. The patient has been receiving [place] 5 mg and Dilaudid IV in-hospital to treat this pain. Plain x-ray of the lumbar spine showed new compression fracture of the superior endplate of L2 and old compression fracture of T12. The patient feels pain mostly on the right side of her back and right flank. The pain does not radiate to the right groin anteriorly. The patient has a history of right kidney stone that has not been removed and she gets similar pain for it has been worse lately after she fell. By physical exam she is alert oriented 3 in no apparent distress. 10 is normal muscle strength in the lower extremities bilaterally and symmetrically. She has tenderness in the right side of her lumbar spine. She is on a daily dose of prednisone because of her history of asthma and she recently had an exacerbation of her congestive heart failure. I think the patient may benefit from getting kyphoplasty done on the L2 vertebral body and a neurosurgery consultation would be in order at this stage. As a temporizing measure we can plan on doing lumbar epidural steroid injection with reduced dose of steroids because of her recent history of an exacerbation of her congestive heart failure and her daily usage of prednisone. Plan on doing the lumbar epidural steroid injection at the L2-L3 level in the right paramedian approach under fluoroscopic guidance. As I mentioned above I think the best treatment with the kyphoplasty of the L2 vertebra by neurosurgery.
[2016-07-31] MEDS: FOLIC ACID 1 MG TAB PO SCH (15:15)
[2016-07-31] MEDS: CHOLECALCIFEROL 1,000 UNIT TAB PO SCH (15:15)
--- NOTE | 2016-07-31 15:15 | P.PN ---
Progress Note - Text We have reviewed the x-rays of the patient's lumbar spine. Of note there is an old compression fracture of T12 and there is compression fracture at L2. We compared these x-rays with x-rays done in our office March 2015. X-rays here the hospital did not go back that far that we can see. The x-rays from our office from 2014 do show the compression fracture at L2 present. It does not seem to show any significant change compared to our x-rays of the compression fracture of L2 and from 2014. I do not feel that kyphoplasty at that level would give significant benefit as this it does seem to be an old fracture. It is difficult to determine where her symptoms stem. Possibly she has some pain from that compression deformities at her thoracic spine. I think it be worthwhile to go ahead and obtain new imaging of her thoracic and lumbar spine with an MRI to determine the chronicity of the fracture is noted and determine if there is other pathology involved.
--- NOTE | 2016-07-31 17:36 | P.PN ---
Subjective 66-year-old female patient, obese, known history of asthma, with known history of compression fracture of the vertebral spine, presented with pain in her lower back radiating to the right upper quadrant and right mid abdominal area. It seems that the pain is more so localized anteriorly and moving posterior to her back. Not the typical compression fracture pain that is encountered usually. No shortness of breath. The pain is somewhat worse with deep breathing however the patient had a CT angios the chest that showed no evidence of any pulmonary embolism. There is some limited patchy infiltrate in the right posterior lobe/right lower lobe along with some pleuritic irregularities posteriorly in the right lung base. Nevertheless, the abnormality was not enough to explain the patient's symptoms. The patient was admitted for for further workup. No nausea. No vomiting. No diarrhea. No bloody bowel movements. No chills. No fever. No falls pain no trauma to the back or side. No overlying skin rashes. No shingles. The x-ray of the abdomen raised the suspicion for a right renal stone measuring 2.4 x 1.5 cm in size. The x-ray of the lumbar spine showed osteophytic compression fracture and it was suspected at T12. T10 fracture was not completely excluded. The patient was seen by orthopedic surgery and general surgery in both signed off. I came to realize that the patient's urinalysis was also normal. There is increased red blood cells and some oxalate crystals seen. The patient is seen again today 07/30/2016 in follow-up on the regular medical floor. She is awake and alert in no acute distress. She still has some complaints of right-sided flank pain. Does have a right non-obstructive renal calculus. Has has known compression fractures. She is being followed by surgical services, orthopedic services and urology. No plans for intervention at this time. Denies any shortness of breath, cough or congestion. Her asthma is inactive and stable. On 07/31/2016 the patient is being seen in follow-up. She is still having the same pain over her back which is rather nonspecific and does not indicate to a specific pathology. Upon further questioning again today, the patient's pain is moving from her mid back and the right flank area and then moving to the left flank and moving up to the left upper posterior chest area. Not related to breathing. Rated to movements. The patient was seen by multiple consultants and there is no clear cause for this pain and we are still suspect in this and may be originating from her thoracolumbar spine. Based on that an MRI of the lumbar spine and the thoracic spine was ordered. The patient was also seen by pain management. Objective - Vital Signs Vital signs: Vital Signs Temp 99.4 F 07/31/16 15:00 Pulse 80 07/31/16 17:08 Resp 16 07/31/16 15:00 BP 124/66 07/31/16 15:00 Pulse Ox 91 L 07/31/16 15:00 Intake & Output 07/30/16 07/31/16 07/31/16 18:59 06:59 18:59 Intake Total 200 Balance 200 Intake: Oral 200 Other: Voiding Method Bedpan # Voids 3 0 2 - Exam The patient appeared well nourished and normally developed. Vital signs as documented. Head exam is unremarkable. No scleral icterus or corneal arcus noted. Neck is without jugular venous distension, thyromegaly, or carotid bruits. Carotid upstrokes are brisk bilaterally. Lungs are clear to auscultation and percussion. Cardiac exam reveals the PMI to be normally sized and situated. Rhythm is regular. First and second heart sounds normal. No murmurs, rubs or gallops. Abdominal exam reveals normal bowel sounds, no masses , no organomegaly and no aortic enlargement. Extremities are nonedematous and both femoral and pedal pulses are normal. - Labs CBC & Chem 7: 07/28/16 09:05 07/28/16 09:05 Assessment and Plan Plan: Assessment 1 pain involving the right kidney/flank/lower thoracic/upper lumbar area. Exact cause is not clear. This could be resulting from a compression fracture of the T-spine yet the pain itself is a bit unusual knowing this involving the lateral abdomen and anterior abdominal wall area. Rule out nephrolithiasis/ kidney stones. No pulmonary source for this patient's pain and the computed tomography scan of the chest showed no evidence of any pulmonary embolism or any other significant abnormalities in the posterior lung area involving the lower lobe. 2 bronchial asthma or chronic 3 multilevel compression fracture of the thoracic and lumbar spine 4 chronic back pain 5 diverticulosis 6 obesity. 7 urinary incontinence with stress urinary type. Plan Pulmonary we'll watch the workup and the input of other physicians involved in the patient's care. We do not think this is of a pulmonary source location and exact nature of the radiation of this pain. We are however interested in following up this patient's bronchial asthma and be involved in any form of pulmonary complications should they arise.the input given by various consultants was noted. The patient is having pain. The pain is well controlled with the [place] 5 and Dilaudid. Plan x-ray of the lumbar spine showed new compression fractures with superior endplate L2 and old compression fracture of T12. Based on that an MRI of the thoracolumbar spine was ordered. Very unlikely that this is a renal colic. Very unlikely that this is a intra- abdominal or pulmonary pathology.
--- NOTE | 2016-07-31 20:39 | MR ---
EXAMINATION TYPE: MR lumbar spine wo con DATE OF EXAM: 07/31/2016 7:47 PM COMPARISON: NONE HISTORY: Intractable back pain, compression fracture CONTRAST: 0 mL intravenous MultiHance. TECHNIQUE: Multiplanar, multisequence images of the lumbar spine were acquired. FINDINGS: L5-S1: Minimal disc bulge is present with epidural space contact. No thecal sac displacement is evide nt. Mild facet degenerative changes are present. No spinal canal stenosis. No foraminal stenosis. L4-L5: Mild disc bulging is anterior thecal sac contact. No spinal canal stenosis is present . Facets are normal. Neural foramen are patent. L3-L4: Mild disc bulge is present with anterior thecal sac contact. Facet hypertrophy is posterior la teral thecal sac compression. No spinal canal stenosis or neural foraminal stenosis is present. L2-L3: There is a superior endplate compression of L2. Posterior wall displacement is very mild with anterior thecal sac flattening. No nerve root contact is evident. No spinal canal stenosis is present . Disc bulge is not identified. Foramen is patent. Facet hypertrophy is present. L1-L2: No significant disc bulge or disc herniation. No spinal canal stenosis. No foraminal stenosi s. Neural foramen are patent.. T12-L1: There is a severe compression deformity at T12. Posterior wall displacement is present estima alfred at 1.2 cm. Cord contact is evident. Mild cord flattening is present. Spinal canal is patent at 1. 6 cm. Neural foramen are patent. There is complete loss of the mid vertebral body height. Some anteri or displacement of the anterior fracture fragment is present. This appears to more likely be an old f racture without edema or swelling. Correlate with the history. There is a suggestion of some mild superior endplate compression deformity of T11 also present. IMPRESSION: 1. Severe compression deformity T12 with 1.2 cm displacement of the posterior superior wall causing s sabrina canal narrowing. AP spinal stenosis is not present although the displaced wall isn't close appr oximation with the spinal cord and is causing mild cord flattening. 2. Compression deformity superior endplate L2 likely is old. 3 subtle partially visualized superior e ndplate compression from T11
--- NOTE | 2016-07-31 20:44 | PN ---
DATE OF SERVICE: 07/29/2016 ADDENDUM: This patient was seen and examined by me. I discussed the care with the nurse practitioner, Ms. Palafox. The relevant points of the history/physical/diagnoses/plan as discussed were dictated in the nurse practitioner's note. Additionally, this patient's back pain is slow to improve, and that is why consultation has been placed for Dr. Ball for pain management. Medications have been adjusted accordingly. Patient is slow to respond.
[2016-07-31] MEDS: MONTELUKAST 10 MG TAB PO SCH (21:19)
[2016-07-31] MEDS: SENNOSIDES 8.6 MG TAB PO SCH (21:20)
[2016-07-31] MEDS: ZOLPIDEM 5 MG TAB PO SCH (21:22)
--- NOTE | 2016-07-31 21:41 | PN ---
DATE OF SERVICE: 07/30/2016 PRESENTING COMPLAINT: Lower back pain. INTERVAL HISTORY: This patient was seen by me on 07/30/16. Patient presented with acute low back pain, found to have a vertebral fracture. Patient's medication was adjusted. She was given a brace by Orthopedics. Still having significant pain; hence, Pain Service is being consulted. Patient is otherwise tolerating her diet. Review of systems done for constitutional, cardiovascular, GI, pulmonary, musculoskeletal; relevant findings as above. Current medications are reviewed that include MS Contin and oral prednisone. On examination, temperature 96.8, pulse 89, respiration 14, blood pressure 130/61, pulse ox 92% on room air. GENERAL APPEARANCE: Lying in bed. Awake. EYES: Pupils equal. Conjunctivae normal. NECK: JVD not raised. Mass not palpable. RESPIRATORY: Effort normal. LUNGS: Decreased breath sounds. CARDIOVASCULAR: First and second sounds normal. No edema. ABDOMEN: Soft, nontender. Liver and spleen not palpable. PSYCHIATRY: Alert and oriented x3. Mood and affect normal. INVESTIGATIONS: No blood work from today. ASSESSMENT: 1. Acute on chronic compression fracture, multiple vertebrae, including T7/T8/T10/T12/L2, and T8 fracture appears to be new, causing most of the acute pain. LSO brace has been ordered. 2. Chronic constipation from pain medications. Patient did respond to laxative. 3. Chronic diverticulosis. 4. Chronic insomnia from medical reasons. 5. Chronic urinary stress incontinence. 6. Obesity; body mass index of 34.2. 7. Moderate persistent asthma, stable. 8. Gastroesophageal reflux disease. PLAN: Continue current medication and treatment plan. Awaiting input from Pain Management. Care was discussed with the patient. Will follow.
--- NOTE | 2016-07-31 21:51 | PN ---
DATE OF SERVICE: 07/30/2016 PRESENTING COMPLAINT: Acute low back pain. INTERVAL HISTORY: The patient was diagnosed with a compression fracture of the vertebra. Patient presented with worsening low back pain radiating to the abdomen and to the front. It did not radiate down the leg or to the left. Sometimes it affected her walking. No trouble with bowel or urine. Today the ( ) continues to persist. Review of systems done for constitutional, cardiovascular, GI, pulmonary, musculoskeletal; relevant findings as above. CURRENT MEDICATIONS: 1. Acetaminophen. 2. DuoNeb. 3. Symbicort. 4. Cholecalciferol. 5. Flexeril. 6. Lovenox. 7. Folic acid. 8. Hydrochlorothiazide Friday, Friday and Friday. 9. [place]. 10. Hydromorphone. 11. Methotrexate on Mondays. 12. Singulair. 13. MS Contin. 14. Naproxen. 15. Protonix. 16. Senna. 17. Ambien. PHYSICAL EXAMINATION: VITAL SIGNS: Temperature 99.4, pulse 105, respirations 16, blood pressure 124/66, oxygen saturation 91% on room air. GENERAL APPEARANCE: Patient lying in bed, tired-appearing; otherwise no acute distress noted. EYES: Pupils equal. Conjunctivae normal. NECK: JVD not raised. Mass not palpable. RESPIRATORY: Effort unlabored. LUNGS: Mild wheezing noted. CARDIOVASCULAR: S1, S2 sounds noted. No edema noted. ABDOMEN: Right-sided tenderness. No guarding or rigidity. Liver and spleen not palpable. PSYCHIATRY: Alert and oriented x3. Mood and affect slightly anxious-appearing. NEUROLOGIC: Pupils equal. Cranial nerves grossly intact. No numbness or tingling to her legs. MUSCULOSKELETAL: Patient has evidence of osteoarthritis, especially of the hands and knees. Tenderness to the lower lumbar area. Pain persists to the lumbar spine. ASSESSMENT: 1. Acute on chronic compression fracture, multiple vertebrae, including T7, T10, T12, L2 and T8, which is new. L2 causing intractable pain and difficulty for her to walk. Orthopedics has seen the patient and has ordered an LSO brace. 2. Chronic constipation from pain medications. 3. Chronic diverticulosis. 4. Chronic insomnia from medical reasons. 5. Chronic urinary stress incontinence. 6. Obesity; body mass index of 34.2. 7. Moderate persistent asthma. 8. Gastroesophageal reflux disease. 9. Intractable back pain. PLAN: Patient is currently on significant pain medications. Pain Management has seen the patient and their recommendations are for a lumbar epidural steroid injection, which is a temporizing measure, and they would use a reduced dose of steroids for her, with the best treatment being a kyphoplasty of the L2 vertebra via neurosurgery. Orthopedics will have to be re-consulted for kyphoplasty. Ambien continues for chronic insomnia. For constipation, lactulose was prescribed with good results. Patient has not had a bowel movement as yet since the original dose was prescribed. Will continue to follow. History and physical was performed on the patient by me, the nurse practitioner, and attending, Dr. Li. The relevant points of the history, physical, diagnoses and plan were discussed and are as dictated above.
[2016-08-01] MEDS: HYDROmorphone 1 MG/ML 1 ML SYRINGE IV PRN (01:59)
[2016-08-01] MEDS: HYDROcodone/APAP 5-325MG 1 EACH TAB PO SCH ×3 (05:25→15:16)
[2016-08-01] MEDS: SODIUM CHLORIDE 0.9% 1,000 ML IV SCH ×2 (05:27→15:18)
[2016-08-01] MEDS: SYMBICORT 160-4.5 MCG INHALER INHALATION SCH ×2 (07:07→20:30)
[2016-08-01] MEDS: IPRATROPIUM-ALBUTEROL 3 ML NEB INHALATION SCH ×4 (07:07→20:30)
[2016-08-01] MEDS: MORPHINE SULFATE ER 30 MG TABLET PO SCH ×2 (08:12→20:17)
[2016-08-01] MEDS: CYCLOBENZAPRINE 10 MG TAB PO SCH ×3 (08:13→21:16)
[2016-08-01] MEDS: PANTOPRAZOLE 40 MG TABLET PO SCH ×2 (08:13→15:15)
[2016-08-01] MEDS: predniSONE 20 MG TAB PO SCH (08:13)
[2016-08-01] MEDS: ENOXAPARIN 40 MG/0.4 ML SYRINGE SQ SCH (08:13)
[2016-08-01] MEDS: NAPROXEN 250 MG TAB PO SCH ×2 (08:13→20:18)
[2016-08-01] MEDS: POLYETHYLENE GLYCOL 3350 17 GM POWD.PACK PO SCH (08:13)
[2016-08-01 09:05] LABS: Anion Gap 7 mmol/L; Blood Urea Nitrogen 22 mg/dL (7-17); Calcium 8.6 mg/dL (8.4-10.2); Carbon Dioxide 27 mmol/L (22-30); Chloride 105 mmol/L (98-107); Glucose 93 mg/dL (74-99); Non-African American GFR(MDRD) >60 (>60 ml/min/1.73 sqM); Potassium 3.9 mmol/L (3.5-5.1); Sodium 139 mmol/L (137-145)
--- NOTE | 2016-08-01 09:15 | CDI ---
In responding to this query, please exercise your independent professional judgment. The [facility] Coding Staff and Clinical Documentation Specialists appreciate your assistance in clarifying documentation, maintaining compliance with coding guidelines, accurately documenting patients condition and capturing severity of illness. The fact that a question is asked does not imply that any particular answer is desired or expected. Communication forms are a method of clarifying documentation and are not made part of the Legal Health Record. Thank you in advance for your clarification. Last Revision, June 2015 Grace Swain [address] [facility] [place] [address] Documentation Clarification Form Date: 07/30/2016 9:45:00 AM From: Christel Maliha Admit Date: 07/28/2016 12:17:00 PM Patient Name: Angelique Boyle Visit Number: [id number] Discharge Date: Dr. Tete Salazar/Ashish Pantoja PA-C Patient has been diagnosed with thoracic and lumbar compression fracture. History/Risk Factors: Osteoporosis, Herniated Discs, Skin cancer Clinical Indications: Present with intractable thoracic and lumbar back pain no relief with PO pain meds. X-Ray Results: Acute T8 compression fracture deformity. Multiple compression fracture deformities at T7, T10, T11, T12, and L2. Lumbar spine impression: Osteoporotic compression fractures are suspected. there may be retropulsion at T12 Treatment: LSO brace Dilaudid IV PRN Morphine Sulfate PO Q 12 IV Fluids Neurological assessment Q4 HRS In your professional opinion, please further specify the following: Acute T8 compression fracture deformity likely trauma due to fall but currently being worked up by oncology for possible metastatic cause Multiple compression fracture deformities at T7, T10, T11, T12, and L2 are chronic in natural over an extended period of time which most are of unknown cause. Most recent previous fracture at L2 was found after an injury. Etiology of fracture: Traumatic (due to) Pathological (specify cause): Neoplastic disease Osteoporosis Other (please specify) Unable to determine Also, indicate any associated diagnosis/conditions related to the Fracture in your documentation. Please document in your progress notes in order to capture severity of illness and risk of mortality. Include clinical findings that support your diagnosis. FYI: Press F11 to launch patient chart Place X here if this finding has no clinical significance, is not applicable or if you are not able to provide any additional documentation. MTDD
[2016-08-01 09:16] LABS: CH 33.8; CHCM 31.7; HCT 35.4 % (34.0-46.0); HDW 2.84; HGB 11.2 gm/dL (11.4-16.0); Hypochromasia Slight; MCHC 31.8 g/dL (31.0-37.0); MCV 107.1 fL (80.0-100.0); Macrocytosis Moderate; Mean Platelet Volume 7.1; RDW 14.8 % (11.5-15.5)
[2016-08-01] MEDS ORDERED: NON-FORMULARY DRUG (Alendronate Sodium [Fosamax] 70 MG) PO SCH (12:20)
[2016-08-01] MEDS ORDERED: TRIAMCINOLONE ACETONIDE 40 MG/ML 1 ML VIAL ONE (13:30)
[2016-08-01] MEDS ORDERED: IOHEXOL 180 MG/ML 1 ML ML ONE (13:30)
--- NOTE | 2016-08-01 13:49 | P.PN ---
Subjective 66-year-old female patient, obese, known history of asthma, with known history of compression fracture of the vertebral spine, presented with pain in her lower back radiating to the right upper quadrant and right mid abdominal area. It seems that the pain is more so localized anteriorly and moving posterior to her back. Not the typical compression fracture pain that is encountered usually. No shortness of breath. The pain is somewhat worse with deep breathing however the patient had a CT angios the chest that showed no evidence of any pulmonary embolism. There is some limited patchy infiltrate in the right posterior lobe/right lower lobe along with some pleuritic irregularities posteriorly in the right lung base. Nevertheless, the abnormality was not enough to explain the patient's symptoms. The patient was admitted for for further workup. No nausea. No vomiting. No diarrhea. No bloody bowel movements. No chills. No fever. No falls pain no trauma to the back or side. No overlying skin rashes. No shingles. The x-ray of the abdomen raised the suspicion for a right renal stone measuring 2.4 x 1.5 cm in size. The x-ray of the lumbar spine showed osteophytic compression fracture and it was suspected at T12. T10 fracture was not completely excluded. The patient was seen by orthopedic surgery and general surgery in both signed off. I came to realize that the patient's urinalysis was also normal. There is increased red blood cells and some oxalate crystals seen. The patient is seen again today 07/30/2016 in follow-up on the regular medical floor. She is awake and alert in no acute distress. She still has some complaints of right-sided flank pain. Does have a right non-obstructive renal calculus. Has has known compression fractures. She is being followed by surgical services, orthopedic services and urology. No plans for intervention at this time. Denies any shortness of breath, cough or congestion. Her asthma is inactive and stable. On 07/31/2016 the patient is being seen in follow-up. She is still having the same pain over her back which is rather nonspecific and does not indicate to a specific pathology. Upon further questioning again today, the patient's pain is moving from her mid back and the right flank area and then moving to the left flank and moving up to the left upper posterior chest area. Not related to breathing. Rated to movements. The patient was seen by multiple consultants and there is no clear cause for this pain and we are still suspect in this and may be originating from her thoracolumbar spine. Based on that an MRI of the lumbar spine and the thoracic spine was ordered. The patient was also seen by pain management. On 08/01/2016 I'm seeing this patient in follow-up. She is still in pain in her condition essentially unchanged. The patient had an MRI of the thoracolumbar spine that showed severe compression deformity at the level of T12 with a 1.2 cm displacement of the posterior superior wall causing spinal canal narrowing. There is also compression deformity of the superior endplate of L2 which is likely old and 3 subtotal partially visualized superior endplate compression at the level of T11. The patient will be taken for a steroid injection by pain management. Objective - Vital Signs Vital signs: Vital Signs Temp 98.2 F 08/01/16 12:36 Pulse 111 H 08/01/16 12:36 Resp 22 08/01/16 12:36 BP 137/65 08/01/16 12:36 Pulse Ox 93 L 08/01/16 12:36 Intake & Output 07/31/16 08/01/16 08/01/16 18:59 06:59 18:59 Other: Voiding Method Bedpan Bedpan # Voids 2 2 1 - Exam The patient appeared well nourished and normally developed. Vital signs as documented. Head exam is unremarkable. No scleral icterus or corneal arcus noted. Neck is without jugular venous distension, thyromegaly, or carotid bruits. Carotid upstrokes are brisk bilaterally. Lungs are clear to auscultation and percussion. Cardiac exam reveals the PMI to be normally sized and situated. Rhythm is regular. First and second heart sounds normal. No murmurs, rubs or gallops. Abdominal exam reveals normal bowel sounds, no masses , no organomegaly and no aortic enlargement. Extremities are nonedematous and both femoral and pedal pulses are normal. - Labs CBC & Chem 7: 08/01/16 08:03 08/01/16 08:03 Labs: Abnormal Lab Results - Last 24 Hours (Table) 08/01/16 08/01/16 Range/Units 08:03 08:03 WBC 11.0 H (3.8-10.6) k/uL RBC 3.30 L (3.80-5.40) m/uL Hgb 11.2 L (11.4-16.0) gm/dL MCV 107.1 H (80.0-100.0) fL BUN 22 H (7-17) mg/dL Assessment and Plan Plan: Assessment 1 pain involving the right kidney/flank/lower thoracic/upper lumbar area. After an extensive workup, the pain seems to be originating from a severe compression deformity of T12 and compression fractures of the level of L2 and L3. The patient was seen a steroid injection today, likely epidural 2 bronchial asthma or chronic 3 multilevel compression fracture of the thoracic and lumbar spine 4 chronic back pain 5 diverticulosis 6 obesity. 7 urinary incontinence with stress urinary type. Plan Continue current treatment. The tympanic medication. Steroid injection, likely epidural. The patient will continue IV Dilaudid for pain control. She is also receiving morphine. Would suggest a back brace.
--- NOTE | 2016-08-01 13:49 | P.PCN ---
Date of Procedure: 08/01/16 Procedure(s) Performed: PREOPERATIVE DIAGNOSIS: 1- Lumbar Degenerative Disc Diseases 2-Lumbar spondylosis with Facet arthropathy without myelopathy. 3-compression fracture ,lumbar spine POSTOPERATIVE DIAGNOSIS: 1-Lumber Degenerative Disc Diseases 2-Lumbar spondylosis with Facet arthropathy without myelopathy. 3-compression fracture, lumbar spine PROCEDURE 1. Lumbar epidural steroid injection under fluoroscopic guidance at the L1-2 level. 2. Lumbar epidurogram. ANESTHESIA: Local with 1% lidocaine 3 ml . EBL: Minimal PROCEDURE INDICATION: The patient with low back pain and radiculitis symptoms unresponsive to conservative treatment. Fluoroscopy was used to optimize visualization of the needle placement and to maximize safety. PROCEDURE DESCRIPTION / TECHNIQUE: The patient was seen and identified in the preoperative area. Risks, benefits , complications including but not limited to infections ,bleeding ,allergic reaction to the medications ,nerve damage and not complete pain releife , and alternatives were discussed with the patient. The patient agreed to proceed with the procedure and signed the consent. IV was started, and vital signs were stable. Patient was taken to the OR and time out was completed. The patient was placed in the prone position on procedure table and a pillow was placed under the abdomen to reduce lumbar lordosis. The lumbosacral area was prepped and draped in the usual sterile fashion.ere closely monitored during the procedure. Conscious sedation was used during the procedure to decrease patients anxiety. Vital signs was monitered during the entire procedure. Using anterior-posterior fluoroscopy, the L1-2 interlaminar space was identified and the skin over this site was marked and then infiltrated with 1% lidocaine subcutaneously. Subsequently, a 20-gauge Tuohy epidural needle was inserted and advanced toward the epidural space using the ``Loss of resistance technique and guided by AP and lateral fluoroscopy. The correct needle position in the epidural space was verified with the injection of 2 mL of the water soluble contrast dye Omnipaque 180 contrast and observing an excellent epidurogram with the epidural spread of the dye, after negative aspiration for blood and CSF and in the absence of paresthesias. Again after negative aspiration, a 6 ml mixture containing 80 mg of Kenalog and 2 ml of preservative free Normal Saline, and 2 ml of preservative free lidocaine 1% solution was injected and a washout of epidurogram was seen. Needle was withdrawn intact, skin was cleansed, and bandages were applied. COMPLICATIONS: None DISPOSITION / PLANS: The patient was placed in a supine position and transferred to the recovery area in a stable condition for observation. There was no evidence of lower extremity motor or sensory deficit after the procedure. Patient was discharged from the recovery room after meeting discharge criteria. Home discharge instructions were given to the patient by the staff. The patient was reexamined prior to discharge. The patient will schedule a follow up in the clinic in 2-4 weeks.
[2016-08-01] MEDS: FOLIC ACID 1 MG TAB PO SCH (15:16)
[2016-08-01] MEDS: CHOLECALCIFEROL 1,000 UNIT TAB PO SCH (15:16)
--- NOTE | 2016-08-01 16:32 | FL ---
EXAMINATION TYPE: FL guided pain mgmt statistic DATE OF EXAM: 08/01/2016 1:55 PM FLUOROSCOPY Fluoroscopy time of 3 seconds was used during lumbar steroid epidural injection. 1 image/s document/s the procedure.
[2016-08-01] MEDS: MONTELUKAST 10 MG TAB PO SCH (20:17)
[2016-08-01] MEDS: ZOLPIDEM 5 MG TAB PO SCH (20:18)
[2016-08-01] MEDS: SENNOSIDES 8.6 MG TAB PO SCH (20:18)
--- NOTE | 2016-08-01 23:52 | MR ---
EXAMINATION TYPE: MR thoracic spine wo con DATE OF EXAM: 08/01/2016 2:52 PM COMPARISON: NONE HISTORY: poss compression fractures, pt fell, back pain CONTRAST: Performed utilizing 0 mL intravenous MultiHance gadolinium contrast. TECHNIQUE: Multiplanar, multiecho imaging on a 3.0 Dinah magnet is performed through the thoracic spi ne. Spinal cord maintains normal signal through its visualized course. There is exaggeration of the thoracic kyphosis in the lower thoracic level. Compression deformities of T7, T8 and T10 and T12 are present. The posterior wall displacement T12 pr eviously discussed on the MRI of the lumbar spine is again evident. Posterior wall displacement of the additional thoracic compression deformity is not identified. There is signal abnormality within T8 suggests possibility of metastasis. There is spinal canal stenosis posterior to the displaced wall T12 estimated at approximately 8 mm. S ome cord deformity is present. There is absent signal posterior to the thecal sac at T9 T10 T11. This is dark on both T1 and T2-weig hted sequences does not follow fat. Old hemorrhage should be considered. This may have some mass effe ct on the posterior thecal sac. Spinal canal stenosis and some cord contact is present posterior to t he T11 level. AP spinal canal diameter is 0.7 cm. This also likely has posterior spinal cord contact at T9-10 spinal canal narrowing. Lesser cord deformity is present at this level with an AP diameter i s 0.8. IMPRESSIONS: 1. Previously described posterior wall displacement of T12 contributing to spinal canal stenosis. The re is also see MRI lumbar spine 07/31/2016. Spinal canal stenosis is present based on current images a t this level with cord contact or deformity. 2. Additional compression deformities of T10 and T8 and T7. T8 signal abnormality related to metastas is. 3. Posterior spinal canal hemorrhage may be present. This would be old and markedly hypointense on kevin th T1 and T2-weighted sequences. This has mass effect on the posterior thecal sac. This may have grea test effect at the superior endplate of T11 causing spinal canal stenosis.
[2016-08-02] MEDS: SODIUM CHLORIDE 0.9% 1,000 ML IV SCH ×2 (04:14→17:29)
[2016-08-02] MEDS: HYDROcodone/APAP 5-325MG 1 EACH TAB PO SCH ×4 (06:44→17:47)
[2016-08-02] MEDS: IPRATROPIUM-ALBUTEROL 3 ML NEB INHALATION SCH ×4 (07:35→19:19)
[2016-08-02] MEDS: SYMBICORT 160-4.5 MCG INHALER INHALATION SCH ×2 (07:35→19:19)
[2016-08-02] MEDS: NAPROXEN 250 MG TAB PO SCH ×2 (08:32→20:53)
[2016-08-02] MEDS: PANTOPRAZOLE 40 MG TABLET PO SCH ×2 (08:32→17:23)
[2016-08-02] MEDS: ENOXAPARIN 40 MG/0.4 ML SYRINGE SQ SCH (08:32)
[2016-08-02] MEDS: CYCLOBENZAPRINE 10 MG TAB PO SCH ×3 (08:32→22:31)
[2016-08-02] MEDS: HYDROCHLOROTHIAZIDE 12.5 MG CAP PO SCH (08:32)
[2016-08-02] MEDS: POLYETHYLENE GLYCOL 3350 17 GM POWD.PACK PO SCH (08:33)
[2016-08-02] MEDS: predniSONE 20 MG TAB PO SCH (08:33)
[2016-08-02] MEDS: MORPHINE SULFATE ER 30 MG TABLET PO SCH ×2 (08:35→20:53)
[2016-08-02 09:27] LABS: Basophils % (A) 0 %; CH 34.4; CHCM 33.1; Eosinophils % (A) 0 %; HCT 36.6 % (34.0-46.0); HDW 2.98; HGB 12.1 gm/dL (11.4-16.0); Luc # (Auto) 0.05; Luc % (Auto) 0; Lymphocytes # (A) 0.3 k/uL (1.0-4.8); Lymphocytes % (A) 2 %; MCH 34.5 pg (25.0-35.0); MCHC 33.1 g/dL (31.0-37.0); MCV 104.2 fL (80.0-100.0); Macrocytosis Moderate; Mean Platelet Volume 6.9; Monocytes # (A) 0.2 k/uL (0-1.0); Monocytes % (A) 2 %; Neutrophils # (A) 11.4 k/uL (1.3-7.7); Neutrophils % (A) 95 %; RBC 3.51 m/uL (3.80-5.40); RDW 14.8 % (11.5-15.5); WBC (Perox) 12.18
[2016-08-02 10:19] LABS: Anion Gap 8 mmol/L; Blood Urea Nitrogen 29 mg/dL (7-17); Carbon Dioxide 27 mmol/L (22-30); Chloride 106 mmol/L (98-107); Glucose 124 mg/dL (74-99); Non-African American GFR(MDRD) >60 (>60 ml/min/1.73 sqM); Potassium 4.3 mmol/L (3.5-5.1); Sodium 141 mmol/L (137-145)
--- NOTE | 2016-08-02 17:04 | P.PN ---
Progress Note - Text Patient is a very pleasant and well known 66-year-old female who is seen and examined at bedside for further evaluation for significant ongoing thoracic back pain. She's been previously seen and evaluated in our office in March 2015. Patient sustained a fall approximately 3 weeks ago and presented to [facility] for further evaluation. At that time a TLSO brace was ordered and fitted for the patient. She remained in the hospital for approximately 4 days before being discharged to [facility]. She states she spent 5 days and rehab without significant relief of her symptoms. She was subsequently discharged. Since that time her back pain has been uncontrollable. She presented to [facility] for evaluation. Since being admitted, she has had an injection at L2 performed by pain management with mild relief of her symptoms. She continues to complain of significant pain of the thoracic spine at the level of the bra line. She has had an MRI of both the thoracic and lumbar spine. These results are discussed in detail with the patient. She continues denies specific lower extremity radiculopathy or weakness bilaterally. She continues to have significant pain and feels like she would be unable to go home at this time due to her pain. She feels she is unable to perform regular activities of daily living without significant difficulty. She continues to have some right-sided thoracolumbar pain as well that today she describes as wrapping around the right ribs. She was able to take a shower today but states she had significant pain while doing so. Physical exam: Patient is awake, alert, and oriented 3 Vital signs stable Good chest excursion with deep inspiration and expiration Abdomen soft nontender Examination of thoracic and lumbar spine reveals skin is intact with no abrasions, lacerations, or bruises; no erythema, purulence or signs of infection Pain with palpation along the midline of the mid thoracic spine along the midline, far right lateral mid to lower thoracic spine, and lower lumbar spine and right sacroiliac joint Dorsiflexion, plantarflexion, and extensor hallucis longus positive sustained bilaterally Lower extremity strength 5/5 bilaterally No lower extremity hyperreflexia bilaterally No signs or symptoms of DVT; no calf pain No pain with internal and external rotation of the hips bilaterally Neurovascularly intact Studies: MRI of the thoracic spine taken on 08/01/2016: T8 signal abnormality related to metastasis; Absent signal posterior to the thecal sac at T9, T10, and T11; T12 spinal canal narrowing due to posterior wall displacement of vertebral body compression fracture; compression fracture deformities at T7, T8, T10; posterior spinal canal hemorrhage may be present MRI of the lumbar spine taken on 07/31/2016: T12 severe compression fracture deformity with 1.2 cm displacement to the posterior wall causing spinal canal narrowing; L2 superior endplate compression fracture deformity is most likely chronic; T11 subtle partially visualize superior endplate compression X-rays lumbar spine: Osteoporotic compression fractures suspected; compression fracture deformities at T11 superior endplate compression fracture deformity with approximately 15% height loss, T12 with approximately 75% height loss and L2 approximately 20% height loss superiorly CT of the chest: Multiple compression fracture deformities appeared to be at T7 with approximatly 75% height loss, T8 with approximately 20% height loss, T10 with approximately 75% height loss, T11 with approximately 15% height loss and T12 approximately 80% height loss of indeterminate age that are not reported in the impression; no acute pulmonary embolism; mild compressive atelectasis Chest x-ray: Large right renal stone of the mid kidney measuring approximately 2.4 cm x 1.5 cm Assessment: Status post fall Intractable thoracic and lumbar back pain Acute T8 compression fracture deformity status post fall; likely metastatic Absent signal posterior to the thecal sac at T9, T10, and T11 Multiple compression fracture deformities at T7, T10, T11, T12, and L2 that appear to be stable and chronic in nature Failure of outpatient treatment Dehydration Large right renal stone with right far lateral mid and lower thoracic pain Plan: 1. We continue to feel her multiple compression fractures at T7, T10, T11, T12 , and L2 appear to be chronic in nature and appear to be stable. There are no significant changes found within these multiple compression fractures. According to our imaging taken at [facility], the T8 compression fracture appears to be acute as compared to previous study taken on 03/13/2015. Following the results of the MRI of the thoracic spine and lumbar spines without contrast, we will currently plan to obtain an MRI of the thoracic spine with contrast to further assess the acute T8 compression fracture deformity which is likely metastatic and the absent signal posterior to the thecal sac at T9, T10, and T11. At this time, we will also plan to consult with Dr. Pang in oncology. We will also order an Exos LSO brace for the patient to wear. She may wear this brace while sitting up to greater than 45, while doing activities, and while ambulating. She does not have to wear the brace while lying in bed or while bathing. She should avoid excessive bending, twisting, lifting; no lifting greater than 10 pounds. Following the completion of and report of the MRI of the thoracic spine with contrast, we will follow up with the appropriate plan of care. We did discuss based on those results, if she were to need surgical intervention, this may need to be performed at a tertiary clinic. 2. We will plan a consult with Dr. Pang in oncology for further evaluation following MRI report indicating T8 metastatic disease 3. Dr. Li in medicine to continue following the patient; may recommend abdominal CT 4. Continue pain control 5. I have discussed this patient in detail with Dr. Titi Salazar and he agrees with this plan
[2016-08-02] MEDS: CHOLECALCIFEROL 1,000 UNIT TAB PO SCH ×2 (17:22→18:39)
[2016-08-02] MEDS: FOLIC ACID 1 MG TAB PO SCH (17:23)
--- NOTE | 2016-08-02 18:30 | P.PN ---
Subjective 66-year-old female patient, obese, known history of asthma, with known history of compression fracture of the vertebral spine, presented with pain in her lower back radiating to the right upper quadrant and right mid abdominal area. It seems that the pain is more so localized anteriorly and moving posterior to her back. Not the typical compression fracture pain that is encountered usually. No shortness of breath. The pain is somewhat worse with deep breathing however the patient had a CT angios the chest that showed no evidence of any pulmonary embolism. There is some limited patchy infiltrate in the right posterior lobe/right lower lobe along with some pleuritic irregularities posteriorly in the right lung base. Nevertheless, the abnormality was not enough to explain the patient's symptoms. The patient was admitted for for further workup. No nausea. No vomiting. No diarrhea. No bloody bowel movements. No chills. No fever. No falls pain no trauma to the back or side. No overlying skin rashes. No shingles. The x-ray of the abdomen raised the suspicion for a right renal stone measuring 2.4 x 1.5 cm in size. The x-ray of the lumbar spine showed osteophytic compression fracture and it was suspected at T12. T10 fracture was not completely excluded. The patient was seen by orthopedic surgery and general surgery in both signed off. I came to realize that the patient's urinalysis was also normal. There is increased red blood cells and some oxalate crystals seen. The patient is seen again today 07/30/2016 in follow-up on the regular medical floor. She is awake and alert in no acute distress. She still has some complaints of right-sided flank pain. Does have a right non-obstructive renal calculus. Has has known compression fractures. She is being followed by surgical services, orthopedic services and urology. No plans for intervention at this time. Denies any shortness of breath, cough or congestion. Her asthma is inactive and stable. On 07/31/2016 the patient is being seen in follow-up. She is still having the same pain over her back which is rather nonspecific and does not indicate to a specific pathology. Upon further questioning again today, the patient's pain is moving from her mid back and the right flank area and then moving to the left flank and moving up to the left upper posterior chest area. Not related to breathing. Rated to movements. The patient was seen by multiple consultants and there is no clear cause for this pain and we are still suspect in this and may be originating from her thoracolumbar spine. Based on that an MRI of the lumbar spine and the thoracic spine was ordered. The patient was also seen by pain management. On 08/01/2016 I'm seeing this patient in follow-up. She is still in pain in her condition essentially unchanged. The patient had an MRI of the thoracolumbar spine that showed severe compression deformity at the level of T12 with a 1.2 cm displacement of the posterior superior wall causing spinal canal narrowing. There is also compression deformity of the superior endplate of L2 which is likely old and 3 subtotal partially visualized superior endplate compression at the level of T11. The patient will be taken for a steroid injection by pain management. On 08/02/2016, the patient is feeling better. The patient had an epidural shot to her back and it is somewhat controlled the patient's pain. No other new complaints otherwise for now. She is resting comfortably in bed. She is on 20 mg of prednisone that needs to be tapered down further to 10 mg on a daily basis. Objective - Vital Signs Vital signs: Vital Signs Temp 97.8 F 08/02/16 15:00 Pulse 92 08/02/16 15:41 Resp 16 08/02/16 15:00 BP 142/72 08/02/16 15:00 Pulse Ox 92 L 08/02/16 15:00 Intake & Output 08/01/16 08/02/16 08/02/16 18:59 06:59 18:59 Intake Total 300 Balance 300 Intake: Oral 300 Other: Voiding Method Bedpan # Voids 1 0 1 - Exam The patient appeared well nourished and normally developed. Vital signs as documented. Head exam is unremarkable. No scleral icterus or corneal arcus noted. Neck is without jugular venous distension, thyromegaly, or carotid bruits. Carotid upstrokes are brisk bilaterally. Lungs are clear to auscultation and percussion. Cardiac exam reveals the PMI to be normally sized and situated. Rhythm is regular. First and second heart sounds normal. No murmurs, rubs or gallops. Abdominal exam reveals normal bowel sounds, no masses , no organomegaly and no aortic enlargement. Extremities are nonedematous and both femoral and pedal pulses are normal. - Labs CBC & Chem 7: 08/02/16 09:05 08/02/16 09:04 Labs: Abnormal Lab Results - Last 24 Hours (Table) 08/02/16 08/02/16 Range/Units 09:04 09:05 WBC 12.0 H (3.8-10.6) k/uL RBC 3.51 L (3.80-5.40) m/uL MCV 104.2 H (80.0-100.0) fL Neutrophils # 11.4 H (1.3-7.7) k/uL Lymphocytes # 0.3 L (1.0-4.8) k/uL BUN 29 H (7-17) mg/dL Glucose 124 H (74-99) mg/dL Assessment and Plan Plan: Assessment 1 pain involving the right kidney/flank/lower thoracic/upper lumbar area. After an extensive workup, the pain seems to be originating from a severe compression deformity of T12 and compression fractures of the level of L2 and L3. The patient was seen a steroid injection today, likely epidural 2 bronchial asthma or chronic 3 multilevel compression fracture of the thoracic and lumbar spine 4 chronic back pain 5 diverticulosis 6 obesity. 7 urinary incontinence with stress urinary type. Plan Continue current treatment. Pain is under better control. Cut down the prednisone down to 10 mg by mouth daily. We will follow.
--- NOTE | 2016-08-02 19:12 | PN ---
DATE OF SERVICE: 08/02/2016 PRESENTING COMPLAINT: Acute low back pain. INTERVAL HISTORY: Patient presented with worsening low back pain radiating to the abdomen and to the front. Pain did not radiate down the leg or to the left. Patient continues to have back pain in any position. Patient is calm, cooperative, able to answer questions. Review of systems done for constitutional, cardiovascular, GI, pulmonary, musculoskeletal; relevant findings as above. CURRENT MEDICATIONS: 1. Acetaminophen. 2. DuoNeb. 3. Symbicort. 4. Cholecalciferol. 5. Flexeril. 6. Lovenox. 7. Folic acid. 8. Hydrochlorothiazide Friday, Friday and Friday. 9. Caballo. 10. Hydromorphone. 11. Methotrexate on Mondays. 12. Singulair. 13. MS Contin. 14. Naproxen. PHYSICAL EXAMINATION: VITAL SIGNS: Temperature 97.8, pulse 99, respiratory rate 16, blood pressure 142/72, oxygen saturation 92% on 2 L nasal cannula. GENERAL APPEARANCE: Patient lying in bed, tired-appearing. No acute distress noted. EYES: Pupils equal. Conjunctivae normal. NECK: JVD not raised. Mass not palpable. RESPIRATORY: Effort unlabored. LUNGS: Mild wheezing. Diminished bases noted. CARDIOVASCULAR: S1, S2 sounds noted. No edema noted. ABDOMEN: Right-sided tenderness. No guarding or rigidity. Liver and spleen not palpable. PSYCHIATRIC: Alert and oriented x3. Mood and affect slightly anxious-appearing. NEUROLOGIC: Pupils equal. Cranial nerves grossly intact. No numbness or tingling to her legs. MUSCULOSKELETAL: Patient has evidence of osteoarthritis, especially of the hands and knees. Tenderness to the lower lumbar area. Pain persists to the lumbar spine. ASSESSMENT: 1. Acute on chronic compression fracture, multiple vertebrae, including T7, T10, T12, L2, and T8, which is new. L2 causing intractable pain and difficulty for her to walk. Patient underwent an epidural steroid injection at the level of L1-L2 under fluoroscopic guidance on 08/01/2016. Orthopedics is on consult and has ordered an LSO brace and an MRI to evaluate for the possibility of other interventions. MRI from 08/01 reveals posterior wall displacement of T12 causing spinal canal stenosis. There are compression deformities of T10, T8 and T7. T8 signal abnormality is concerning for metastases. Orthopedics plans to follow up with additional studies. 2. Chronic constipation from pain medications. 3. Chronic diverticulosis. 4. Chronic insomnia from medical reasons. 5. Chronic urinary stress incontinence. 6. Obesity; body mass index of 34.2. 7. Moderate persistent asthma. 8. Gastroesophageal reflux disease. 9. Intractable back pain. PLAN: Continue current pain management regimen. Follow up with Orthopedics regarding additional studies and evaluation for T8 abnormality shown on MRI. Pain Management has completed their intervention of epidural steroid injection performed on 08/01/2016. Patient states no relief since receiving this injection. Will continue current pain management regimen. Chronic insomnia will be treated with Ambien. Constipation to be treated with lactulose. Physical exam was performed on the patient by me, the nurse practitioner, and attending, Dr. Li. The relevant points of the history, physical, diagnoses and plan were discussed and are as dictated above.
[2016-08-02] MEDS: SENNOSIDES 8.6 MG TAB PO SCH (20:53)
[2016-08-02] MEDS: ZOLPIDEM 5 MG TAB PO SCH ×2 (20:53→20:57)
[2016-08-02] MEDS: MONTELUKAST 10 MG TAB PO SCH (20:53)
--- NOTE | 2016-08-02 21:13 | MR ---
EXAMINATION TYPE: MR thoracic spine w con DATE OF EXAM: 08/02/2016 6:32 PM COMPARISON: MRI of the thoracic spine dated 08/01/2016. HISTORY: Pain after fall with acute compression deformity of T8 CONTRAST: Performed utilizing 20 mL intravenous MultiHance. TECHNIQUE: Multiplanar, multiecho imaging on a 3.0 Dinah magnet is performed through the thoracic spi ne. T1-T6 vertebral bodies maintain their normal height and alignment. There is redemonstration of compre ssion deformities of T7 (near vertebra plana) T8, T10, T12, and partial visualization of superior end plate deformity at L2. At T12 there is retropulsion of the superior endplate 7.6 mm posteriorly into the spinal canal creating an impression upon the ventral thecal sac and at least moderate spinal niya l stenosis. Any change in spinal cord signal at this level is difficult to visualize. Nonenhancing epidural crescentic signal is seen at T9-10 as well as at T11 which is hypointense on al l sequences and again may relate to remote hemorrhage. This results in at least moderate spinal canal stenosis at these levels. The previously described abnormal bone marrow signal at T8 is hypointense on T2-weighted sequences an d T1-weighted sequences does not demonstrate enhancement centrally but does demonstrate enhancement a t the anterior and posterior cortices. Similar nonenhancing low signal is seen in the midportion of t he T10 vertebral body IMPRESSIONS: 1. Peripherally enhancing compression deformity of the T8 vertebral body with central bone marrow rep lacement again suspicious for metastasis and pathologic compression deformity. 2. Retropulsion of the superior endplate of T12 to create at least moderate spinal canal stenosis at this level. 3. Crescentic epidural low signal at T9-T10 and T11 with mass effect upon the dorsal thecal sac creat ing at least moderate spinal canal stenosis at these levels. 4. Redemonstration of compression deformities at T7, T10, and T12 without retropulsion.
[2016-08-03] MEDS: SODIUM CHLORIDE 0.9% 1,000 ML IV SCH ×2 (02:47→20:39)
[2016-08-03] MEDS: HYDROcodone/APAP 5-325MG 1 EACH TAB PO SCH ×3 (04:43→11:13)
[2016-08-03] MEDS: SYMBICORT 160-4.5 MCG INHALER INHALATION SCH ×2 (07:26→20:22)
[2016-08-03] MEDS: IPRATROPIUM-ALBUTEROL 3 ML NEB INHALATION SCH ×4 (07:26→20:22)
[2016-08-03 08:07] LABS: Basophils % (A) 0 %; CH 33.7; CHCM 32.5; Eosinophils % (A) 0 %; HCT 35.8 % (34.0-46.0); HDW 2.78; HGB 11.7 gm/dL (11.4-16.0); Luc # (Auto) 0.05; Luc % (Auto) 0; Lymphocytes # (A) 0.4 k/uL (1.0-4.8); Lymphocytes % (A) 3 %; MCHC 32.7 g/dL (31.0-37.0); MCV 104.1 fL (80.0-100.0); Macrocytosis Moderate; Monocytes # (A) 0.3 k/uL (0-1.0); Monocytes % (A) 2 %; Neutrophils # (A) 12.3 k/uL (1.3-7.7); Neutrophils % (A) 94 %; RBC 3.44 m/uL (3.80-5.40); RDW 14.7 % (11.5-15.5); WBC 13.1 k/uL (3.8-10.6); WBC (Perox) 14.81
[2016-08-03] MEDS: POLYETHYLENE GLYCOL 3350 17 GM POWD.PACK PO SCH (08:18)
[2016-08-03] MEDS: NAPROXEN 250 MG TAB PO SCH (08:18)
[2016-08-03] MEDS: ENOXAPARIN 40 MG/0.4 ML SYRINGE SQ SCH (08:18)
[2016-08-03] MEDS: PANTOPRAZOLE 40 MG TABLET PO SCH (08:18)
[2016-08-03] MEDS: MORPHINE SULFATE ER 30 MG TABLET PO SCH (08:18)
[2016-08-03] MEDS: CYCLOBENZAPRINE 10 MG TAB PO SCH ×2 (08:19→15:08)
[2016-08-03 08:28] LABS: Anion Gap 6 mmol/L; Blood Urea Nitrogen 33 mg/dL (7-17); Carbon Dioxide 27 mmol/L (22-30); Chloride 105 mmol/L (98-107); Glucose 99 mg/dL (74-99); Non-African American GFR(MDRD) >60 (>60 ml/min/1.73 sqM); Potassium 4.5 mmol/L (3.5-5.1); Sodium 138 mmol/L (137-145)
[2016-08-03] MEDS ORDERED: RX INFO: IV CONTRAST WAS GIVEN 1 EACH MISC MISCELLANE PRN (08:49)
[2016-08-03] MEDS ORDERED: predniSONE 10 MG TAB PO SCH (09:00)
--- NOTE | 2016-08-03 09:54 | P.CONS ---
History of Present Illness - Reason for Consult Consult date: 08/03/16 Possible bone metastasis - History of Present Illness The pt is a 66-year-old lady with multiple medical problems. She has a known history of osteoporosis and multiple vertebral compression fractures , especially in the T-spine. She presented to the hospital, with the mid back pain radiating to the right upper quadrant, and around the abdomen, which started a few weeks ago. This has been getting progressively worse to where it was not tolerable with outpatient management. She was also complaining of increasing the pain with the deep breathing, and shortness of breath. Therefore at the admission, she had a CTA done which revealed no evidence of pulmonary emboli, lung masses or adenopathy. She was noted to have a new compression fracture at T8. She was seen by the orthopedic service, and had an MRI of the T-spine done. This confirmed the presence of multiple known compression fractures as well as a new fracture at T8. The MRI appearance was felt to be suspicious for pathologic compression. Therefore MRI was repeated with contrast, With the appearance of T8, again noted to be suspicious for metastatic involvement causing pathologic compression. Consult was therefore placed for further evaluation. Patient denied any prior history of malignancy, other than superficial skin cancers. She is up-to-date with her colonoscopy. Review of Systems Constitutional: Reports chronic pain, Reports fatigue, Reports weakness, Reports weight loss (Deliberate) Eyes: denies blurred vision, denies pain Ears: deny: decreased hearing, ear discharge, earache, tinnitus Ears, nose, mouth and throat: Denies headache, Denies sore throat Cardiovascular: Reports chest pain, Reports dyspnea on exertion Respiratory: Reports dyspnea, Reports pain on inspiration Gastrointestinal: Reports constipation Genitourinary: Denies dysuria, Denies hematuria Menstruation: Reports postmenopausal Musculoskeletal: Reports as per HPI, Reports loss of height Integumentary: Denies pruritus, Denies rash Neurological: Reports weakness Psychiatric: Denies anxiety, Denies depression Endocrine: Reports fatigue, Reports weight change Hematologic/Lymphatic: Reports as per HPI Past Medical History Past Medical History: Asthma, Cancer, GERD/Reflux Additional Past Medical History / Comment(s): Bronchial asthma, compression fracture of the T-spine, osteoporosis, skin cancer, history of sepsis of urinary source, sigmoid diverticulosis, compression fracture of the L2 spine, compression fracture of the T12 spine, compression fracture of the T7 spine History of Any Multi-Drug Resistant Organisms: None Reported Past Surgical History: Tubal Ligation Additional Past Surgical History / Comment(s): CATARACT LEFT EYE WITH REPAIR OF MACULAR HOLE. Past Anesthesia/Blood Transfusion Reactions: No Reported Reaction Past Psychological History: No Psychological Hx Reported Smoking Status: Never smoker Past Alcohol Use History: Occasional Past Drug Use History: None Reported - Past Family History Mother Family Medical History: Cancer Additional Family Medical History / Comment(s): COLON CANCER Medications and Allergies Home Medications Medication Instructions Recorded Confirmed Type Folic Acid 1 mg PO DAILY 10/19/15 07/28/16 History Albuterol Nebulized [Ventolin 2.5 mg INHALATION RT-BID@0800,1700 07/22/16 History Nebulized] Albuterol Sulfate [Proventil Hfa] 2 puff INHALATION RT-Q6H PRN 07/22/16 History Alendronate Sodium [Fosamax] 70 mg PO TH 07/22/16 07/28/16 History Budesonide/Formoterol Fumarate 2 puff INHALATION RT-BID 07/22/16 07/28/16 History [Symbicort 160-4.5 Mcg Inhaler] Cholecalciferol [Vitamin D3] 2,000 unit PO DAILY 07/22/16 07/28/16 History Cyclobenzaprine [Flexeril] 10 mg PO TID 07/22/16 07/28/16 History HYDROcodone/APAP 5-325MG [[place] 1 tab PO Q4HR PRN 07/22/16 07/28/16 History 5-325] Hydrochlorothiazide [Hydrodiuril] 12.5 mg PO MOWEFR 07/22/16 07/28/16 History Montelukast [Singulair] 10 mg PO HS 07/22/16 07/28/16 History Morphine Sulfate [Ms Contin] 30 mg PO Q12HR 07/22/16 07/28/16 History Omeprazole 20 mg PO BID 07/22/16 07/28/16 History Polyethylene Glycol 3350 [Miralax] 17 gm PO DAILY 07/22/16 07/28/16 History Sennosides [Senokot] 8.6 mg PO HS 07/22/16 07/28/16 History predniSONE 10 mg PO DAILY 07/22/16 07/28/16 History Methotrexate Sodium [Methotrexate] 12.5 mg PO MO 07/28/16 07/28/16 History Allergies Allergy/AdvReac Type Severity Reaction Status Date / Time furosemide [From Lasix] AdvReac Rash/Hives Verified 07/28/16 14:40 Physical Exam Vitals: Vital Signs Temp Pulse Pulse Resp BP Pulse Ox 08/03/16 07:36 84 08/03/16 07:27 88 94 L 08/03/16 07:00 96.9 F L 86 16 137/76 94 L 08/02/16 23:00 98.2 F 90 16 141/81 92 L 08/02/16 19:35 88 08/02/16 19:19 84 08/02/16 15:41 92 08/02/16 15:30 92 08/02/16 15:00 97.8 F 99 16 142/72 92 L 08/02/16 12:44 84 08/02/16 12:29 80 Intake and Output 08/02/16 08/03/16 08/03/16 22:59 06:59 14:59 Intake Total 100 Balance 100 Intake: Oral 100 Other: Voiding Method Bedpan # Voids 1 1 - Constitutional General appearance: mild distress - EENT Eyes: EOMI, PERRLA ENT: hearing grossly normal, normal oropharynx - Neck Neck: no lymphadenopathy - Respiratory Respiratory: bilateral: CTA - Cardiovascular Rhythm: regular Heart sounds: normal: S1, S2 - Gastrointestinal General gastrointestinal: normal bowel sounds, soft - Integumentary Integumentary: normal - Neurologic Neurologic: CNII-XII intact - Musculoskeletal Musculoskeletal: generalized weakness, strength equal bilaterally - Psychiatric Psychiatric: A&O x's 3, appropriate affect Results CBC & Chem 7: 08/03/16 07:49 08/03/16 07:49 Labs: Abnormal Lab Results - Last 24 Hours (Table) 08/02/16 08/03/16 08/03/16 Range/Units 09:04 07:49 07:49 WBC 13.1 H (3.8-10.6) k/uL RBC 3.44 L (3.80-5.40) m/uL MCV 104.1 H (80.0-100.0) fL Neutrophils # 12.3 H (1.3-7.7) k/uL Lymphocytes # 0.4 L (1.0-4.8) k/uL BUN 29 H 33 H (7-17) mg/dL Glucose 124 H (74-99) mg/dL Chest x-ray: report reviewed (MRI of the T-spine without contrast, and with contrast, reviewed) CT scan - chest: report reviewed Assessment and Plan (1) Thoracic compression fracture Narrative/Plan: The concern this admission, specifically, his regarding new compression fracture at T8, that appears to be responsible for her presenting symptoms. MRI with and without contrast, both shasta appearance that is not consistent with simple compression fracture, raising the possibility of metastatic involvement causing a pathologic event. The MRI results were discussed with the patient. Given that the patient has known compression fractures at various levels, indicating osteoporosis, including above and below T8, a benign event would be much more likely clinically. The case was discussed with Ortho spine. They agree with this clinical impression, and feel that the MRI appearance could be due to hemorrhage. Since we are ruling out metastatic disease, CT of the abdomen and pelvis be ordered to check for any other suspicious lesions. CT of the chest was already done and was negative. I will also order protein electrophoresis studies. If these are negative, we will discuss with Ortho-spine regarding doing a biopsy of the T8 vertebra Status: Acute (2) Macrocytosis Narrative/Plan: The patient does have microcytosis, which could be due to methotrexate use. Protein electrophoresis studies are being ordered as noted. Status: Acute
[2016-08-03] MEDS: IOHEXOL 350 MG/ML 25 ML BOTTLE (ORAL USE) PO PRN ×2 (09:59→10:56)
--- NOTE | 2016-08-03 11:19 | P.PN ---
Progress Note - Text Patient is seen and examined at bedside today. I discussed her case with her at length today. She initially had some pain over a month ago which was somewhat similar at her thoracic spine and toward her flank. She went to [facility] at that point had evaluation and was eventually sent to rehab at [facility]. She was able to walk around to get around and was sent home but then had recurrent pain again and presented here. The patient normally works regular job at [employer] and is generally a community ambulate without any assistance. Over the past several weeks however she has been significantly incapacitated due to her pain at her mid and lower back. Currently her pain primarily is toward her right flank and her right side radiating from her back around her side and under her breast on the right. She does not have pain into her lower extremity. She is not having numbness tingling in her lower extremity is. She feels that her interventional pain management injection earlier in the week helps her low back to some degree. She is on chronic steroids for her asthma. She says she bruises easily. She had an event where she tripped on a bus cleaner about a month ago when this all started. She does not have any loss of consciousness. She denies any fevers or chills. On exam Alert and oriented 3. Afebrile stable vital signs At her neck she is nontender to palpation range of motion negative Kernig's negative Brudzinski's she has full active and passive range of motion in her neck At her thoracic spine she is able to move enroll in bed but she has trouble trying get out of bed. She does not have point tenderness at her thoracic spine. There is no open wounds lacerations or abrasions. There is no rash. There is no obvious skin changes. She does have some diffuse tenderness through her thoracic and lumbar spine over her paraspinals. Her upper and lower extremities have good active and passive range of motion. She has 5 strength in her bilateral upper extremity is. She has sustained 5 out of 5 muscle strength with dorsiflexion plantarflexion and extensor hallucis longus at her lower extremities. Her calves and thighs are soft nontender. Her imaging is reviewed including her lumbar spine MRI and her thoracic spine MRIs. She also had imaging from our office several years ago which is also reviewed. She has multiple compression fractures at T7-T8 T10 T12 and L2. She also has compression deformity at L3 4 with prior kyphoplasty which appears stable. It L2 compression deformity appears to be chronic as we have evidence of the compression fracture which is unchanged on prior films from 2015 in our office. This is her first evaluation of her thoracic spine where we see near-complete compression deformity at T7 compression deformity at T8 T10 and T12. The MRIs show likely hemorrhage at the epidural space behind T9 to T11. This appears to be old hemorrhage. There is some enhancement at T8 which may be related to new fracture versus pathologic process. Assessment and plan Thoracic back pain and right flank pain Incapacitating pain and difficulty with ambulation and mobilization Status post injury approximately 1 month ago with a fall Multiple compression fractures with some enhancement around T8 Apparent old compression fractures T7 T10 T12 L2 and L4 with prior history of vertebroplasty at L4 Possible enhancement at T8 possible pathologic enhancement Epidural signal change likely old hemorrhage with some canal stenosis She has multiple compression fractures at T7-T8 T10 T12 and L2. She also has compression deformity at L3 4 with prior kyphoplasty which appears stable. It L2 compression deformity appears to be chronic as we have evidence of the compression fracture which is unchanged on prior films from 2015 in our office. This is her first evaluation of her thoracic spine where we see near-complete compression deformity at T7 compression deformity at T8 T10 and T12. The MRIs show likely hemorrhage at the epidural space behind T9 to T11. This appears to be old hemorrhage. There is some enhancement at T8 which may be related to new fracture versus pathologic process. She is scheduled to undergo further imaging as ordered by oncology to evaluate for possible metastatic etiology. If we do not find a specific etiology we could consider T8 vertebral body biopsy and kyphoplasty. It is difficult to determine if this would help alleviate her symptoms over her flank but it could be a reasonable possibility if we do not have a specific source. She does have old hemorrhage at her canal causing some canal stenosis. We could also consider open decompression from T9 to T11 to remove the possible hemorrhage and impingement of her canal if she is not having improvement. The worry with this is that it may further destabilize her spine as she has multiple compression fractures positive already causing some modicum of instability. I discussed with her at length and try to answer questions best for ability. We' ll continue to follow her closely.
--- NOTE | 2016-08-03 13:31 | CT ---
EXAMINATION TYPE: CT abdomen pelvis w con DATE OF EXAM: 08/03/2016 12:33 PM HISTORY: Possible bone mets. Recent abnormal MRI. CT DLP: 1484.8mGycm Automated Exposure Control for Dose Reduction was Utilized. CONTRAST: CT scan of the abdomen and pelvis is performed with IV Contrast, patient injected with 100 mL of Omni paque 300. COMPARISON: CT abdomen and pelvis from 12 days ago. FINDINGS: LUNG BASES: There are persistent tiny bilateral pleural effusions and associated compressive atelecta sis . LIVER/GB: Gallbladder has distended margins without surrounding inflammatory change. PANCREAS: No significant abnormality is seen. SPLEEN: No significant abnormality is seen. ADRENALS: No significant abnormality is seen. KIDNEYS: Bilateral nonobstructing renal calculi are seen. There is symmetric cortical medullary uptak e and excretion from both kidneys without evidence of hydronephrosis bilaterally. BOWEL: The oral contrast does not reach colonic level making evaluation slightly suboptimal. A modera te size hiatal hernia is redemonstrated. There is new moderate to severe inflammatory change in the p moises the level of sigmoid colon with extraluminal air identified. New Trace free fluid in pelvis is present right of midline on axial image 74. In addition there is significant amount of pneumoperitone um especially in the upper abdomen. UTERUS/ADNEXA: No gross abnormality seen. LYMPH NODES: No greater than 1cm abdominal or pelvic lymph nodes are appreciated. OSSEOUS STRUCTURES: Osseous structures are demineralized. Advanced compression fracture T12 and T10 l evel are redemonstrated and favored chronic. There are moderate to advanced compression fractures at T7 and T8 level there is slightly more prominent than prior exam which acute fractures cannot be excl uded. Mild compression fracture superior L2 endplate is stable presumed chronic. There is new intradu ral extra medullary air in the lower thoracic spinal canal of uncertain etiology centered at lower th oracic vertebra. This may be related to attempted pain relief procedure August 01. This is accounting for abnormal signal on recent MRI studies at these levels. OTHER: There is mild calcified atherosclerotic change of aorta and branch vessels. Subcutaneous air in the anterior abdominal wall right of midline near axial image 74 is likely produc t of subcutaneous medicine injection. IMPRESSION: 1. New pneumoperitoneum with inflammatory change consistent with perforated acute colitis suspected d iverticulitis. 2. Multiple compression type fracture deformities involving the thoracic and lumbar spine redemonstra alfred. Acute fracture particularly at T7 and T8 level cannot be excluded. There is intradural extramedu llary air noted accounting for abnormal MRI signal and mass effect presumed iatrogenic related to rec ent pain relief procedure. Critical results communicated to patient's nurse and hospitalist at time of dictation
[2016-08-03] MEDS: metroNIDAZOLE-NS PMX 500 MG in SALINE 1 100ML.BAG IVPB SCH ×2 (15:08→23:37)
--- NOTE | 2016-08-03 15:15 | P.GSCN ---
History of Present Illness Consult date: 08/03/16 Reason for Consult: Perforated viscus Requesting physician: Latanya Dexter History of present illness: The patient is a 66-year-old female who reports multiple compression fractures of her thoracic spine. She has been hospitalized for well over 10 days. She has had her last colonoscopy within the last one in 2 years. In her time at the hospital, she was found to have lytic lesions along her spine questionable for metastatic cancer. She was seen by Dr. Pang oncologist earlier today who started a metastatic workup including CT of the abdomen and pelvis. Results included moderate amount of free air secondary to perforated diverticulitis. Patient reports chronic constipation as a result of her pain meds. Incidentally she also takes prednisone, methotrexate, sennosides, and prednisone. She reports increasing abdominal pain as well as abdominal distention. Review of Systems CONSTITUTIONAL: Denies any fever or chills. She is 60+ pounds overweight. HEENT: Denies any trouble with vision, hearing or nosebleeds. No difficulty swallowing. LYMPHATIC: The patient denies any lumps and bumps around the neck. ENDOCRINE: Denies any thyroid disorders. Denies any blood sugar glucose intolerance. RESPIRATORY: Has troubles with breathing or dyspnea on exertion. Has chronic surgical pulmonary disease. CARDIOVASCULAR: Denies any chest pain, palpitations, or recent heart attacks. GASTROINTESTINAL: Has heart burn and constipation. Last colonoscopy 2 years ago. GENITOURINARY: Has history of blood in urine. Also has history of kidney stones. MUSCULOSKELETAL: Has back pain, stiffness, joint arthritis. Has rheumatoid arthritis. Is on prednisone including methotrexate. Has compression fractures of thoracic spine, multiple. NEUROLOGIC: No seizure disorders or headaches. PSYCHIATRIC: Denies depression or suidical ideation. HEMATOLOGIC: Denies any abnormal bleeding or bruising. Past Medical History Past Medical History: Asthma, Cancer, GERD/Reflux Additional Past Medical History / Comment(s): Bronchial asthma, compression fracture of the T-spine, osteoporosis, skin cancer, history of sepsis of urinary source, sigmoid diverticulosis, compression fracture of the L2 spine, compression fracture of the T12 spine, compression fracture of the T7 spine History of Any Multi-Drug Resistant Organisms: None Reported Past Surgical History: Tubal Ligation Additional Past Surgical History / Comment(s): CATARACT LEFT EYE WITH REPAIR OF MACULAR HOLE. Colonoscopy, 2014. Past Anesthesia/Blood Transfusion Reactions: No Reported Reaction Past Psychological History: No Psychological Hx Reported Smoking Status: Never smoker Past Alcohol Use History: Occasional Past Drug Use History: None Reported - Past Family History Mother Family Medical History: Cancer Additional Family Medical History / Comment(s): COLON CANCER in Mother Medications and Allergies Home Medications Medication Instructions Recorded Confirmed Type Folic Acid 1 mg PO DAILY 10/19/15 07/28/16 History Albuterol Nebulized [Ventolin 2.5 mg INHALATION RT-BID@0800,1700 07/22/16 History Nebulized] Albuterol Sulfate [Proventil Hfa] 2 puff INHALATION RT-Q6H PRN 07/22/16 History Alendronate Sodium [Fosamax] 70 mg PO TH 07/22/16 07/28/16 History Budesonide/Formoterol Fumarate 2 puff INHALATION RT-BID 07/22/16 07/28/16 History [Symbicort 160-4.5 Mcg Inhaler] Cholecalciferol [Vitamin D3] 2,000 unit PO DAILY 07/22/16 07/28/16 History Cyclobenzaprine [Flexeril] 10 mg PO TID 07/22/16 07/28/16 History HYDROcodone/APAP 5-325MG [[place] 1 tab PO Q4HR PRN 07/22/16 07/28/16 History 5-325] Hydrochlorothiazide [Hydrodiuril] 12.5 mg PO MOWEFR 07/22/16 07/28/16 History Montelukast [Singulair] 10 mg PO HS 07/22/16 07/28/16 History Morphine Sulfate [Ms Contin] 30 mg PO Q12HR 07/22/16 07/28/16 History Omeprazole 20 mg PO BID 07/22/16 07/28/16 History Polyethylene Glycol 3350 [Miralax] 17 gm PO DAILY 07/22/16 07/28/16 History Sennosides [Senokot] 8.6 mg PO HS 07/22/16 07/28/16 History predniSONE 10 mg PO DAILY 07/22/16 07/28/16 History Methotrexate Sodium [Methotrexate] 12.5 mg PO MO 07/28/16 07/28/16 History Allergies Allergy/AdvReac Type Severity Reaction Status Date / Time furosemide [From Lasix] AdvReac Rash/Hives Verified 07/28/16 14:40 Surgical - Exam Vital Signs Temp Pulse Resp BP Pulse Ox 97.7 F 92 20 166/82 100 07/28/16 07:24 07/28/16 07:24 07/28/16 07:24 07/28/16 07:24 07/28/16 07:24 GENERAL: Well developed and in acute distress. HEENT: No sclera icterus. Extraocular movements grossly intact. Moist buccal mucosa. Head is atraumatic, normocephalic. Hears conversational speech. No nasal drainage. NECK: Supple without lymphadenopathy. No JV distention. CHEST: Mild labored respirations and equal bilateral excursions. CARDIOVASCULAR: Regular rate and rhythm. Palpable 2+ radial pulses. ABDOMEN: Soft, protuberant, distended. Tenderness along the upper abdomen right upper quadrant. No guarding. MUSCULOSKELETAL: No clubbing, cyanosis or edema. Multiple bruise and ecchymosis along the proximal arms. NEUROLOGIC: No focal or lateralizing signs. Cranial nerves II-12 grossly intact. PSYCH: Appropriate affect. Alert and oriented to person, place and time. Results - Labs 08/03/16 07:49 08/03/16 07:49 Abnormal Lab Results - Last 24 Hours (Table) 08/03/16 08/03/16 Range/Units 07:49 07:49 WBC 13.1 H (3.8-10.6) k/uL RBC 3.44 L (3.80-5.40) m/uL MCV 104.1 H (80.0-100.0) fL Neutrophils # 12.3 H (1.3-7.7) k/uL Lymphocytes # 0.4 L (1.0-4.8) k/uL BUN 33 H (7-17) mg/dL Diabetes panel 08/03/16 Range/Units 07:49 Sodium 138 (137-145) mmol/L Potassium 4.5 (3.5-5.1) mmol/L Chloride 105 (98-107) mmol/L Carbon Dioxide 27 (22-30) mmol/L BUN 33 H (7-17) mg/dL Creatinine 0.70 (0.52-1.04) mg/dL Glucose 99 (74-99) mg/dL Calcium 9.0 (8.4-10.2) mg/dL Calcium panel 08/03/16 Range/Units 07:49 Calcium 9.0 (8.4-10.2) mg/dL Pituitary panel 08/03/16 Range/Units 07:49 Sodium 138 (137-145) mmol/L Potassium 4.5 (3.5-5.1) mmol/L Chloride 105 (98-107) mmol/L Carbon Dioxide 27 (22-30) mmol/L BUN 33 H (7-17) mg/dL Creatinine 0.70 (0.52-1.04) mg/dL Glucose 99 (74-99) mg/dL Calcium 9.0 (8.4-10.2) mg/dL Adrenal panel 08/03/16 Range/Units 07:49 Sodium 138 (137-145) mmol/L Potassium 4.5 (3.5-5.1) mmol/L Chloride 105 (98-107) mmol/L Carbon Dioxide 27 (22-30) mmol/L BUN 33 H (7-17) mg/dL Creatinine 0.70 (0.52-1.04) mg/dL Glucose 99 (74-99) mg/dL Calcium 9.0 (8.4-10.2) mg/dL - Imaging CT scan - abdomen: report reviewed, image reviewed CT scan - pelvis: report reviewed (I personally reviewed her CT of the abdomen and pelvis which confirms moderate amount of free air. Moderate air also noted along the sigmoid colon highly suspicious with perforated diverticulitis from sigmoid colon. Separately large paraesophageal hiatal hernia also identified. I personally reviewed her films.), image reviewed Assessment and Plan (1) Perforated sigmoid colon Status: Acute (2) Perforation of sigmoid colon due to diverticulitis Status: Acute (3) Leukocytosis Status: Acute (4) COPD, moderate Status: Acute (5) Current chronic use of systemic steroids Status: Acute (6) Rheumatoid arthritis Status: Acute (7) Thoracic back pain Status: Acute (8) Thoracic compression fracture Status: Acute (9) Compression deformity of vertebra Status: Acute (10) Reflux esophagitis Status: Acute (11) Hiatal hernia with GERD Status: Acute Plan: 1. I discussed with the patient her findings and a computed tomography scan including the acuity of her presentation. She's had multiple studies however her most recent CT is consistent with a perforation. She will need emergent exploratory laparotomy with colectomy and colostomy. Benefits risks and procedure were reviewed. 2. I have personally notify the pulmonary team as she has history of severe COPD. Patient postoperatively will be taken to the intensive care unit per request of her center manager. 3. DVT prophylaxis. 4. Antibiotic prophylaxis. 5. Recommend stress dose of steroids as she is a steroid-dependent. 6. She is on broad-spectrum antibiotics. 7. Will need stoma care and stoma care teaching postoperatively.
[2016-08-03] MEDS ORDERED: HYDROCORTISONE SUCCINATE 100 MG/2 ML VIAL IV STA (15:16)
[2016-08-03] MEDS ORDERED: HYDROCORTISONE SUCCINATE 100 MG/2 ML VIAL IVP ONE (15:43)
[2016-08-03] MEDS ORDERED: ROCURONIUM BROMIDE 10 MG/ML 10 ML VIAL IV ONE (16:19)
[2016-08-03] MEDS ORDERED: LIDOCAINE 1% INJ 10MG/ML (20 ML MDV) ONE (16:19)
[2016-08-03] MEDS ORDERED: KETOROLAC 30 MG/ML 1 ML VIAL ONE (16:19)
[2016-08-03] MEDS ORDERED: SUCCINYLCHOLINE CHLORIDE 100 MG/5 ML SYR IV ONE (16:19)
[2016-08-03] MEDS ORDERED: MIDAZOLAM 2 MG/2 ML VIAL ONE (16:19)
[2016-08-03] MEDS ORDERED: PROPOFOL 10 MG/ML 20 ML VIAL IV ONE (16:19)
[2016-08-03] MEDS ORDERED: fentaNYL (PF) 50 MCG/ML 2 ML AMP ONE (16:19)
[2016-08-03] MEDS ORDERED: SODIUM CHLORIDE 0.9% 500 ML IV ONE (16:19)
[2016-08-03] MEDS ORDERED: HYDROmorphone (PF) 1 MG/ML ONE (16:19)
--- NOTE | 2016-08-03 16:45 | PN ---
Patient is admitted with low back pain. Patient was found to have compression fracture, and because of the severity of the compression fracture, there is a suspicion of a pathological fracture, because of which patient is being extensively evaluated by multiple consultants, including Orthopedic Surgery, Dr. Salazar, who is a back surgeon, and also being evaluated by Dr. Pang from Oncology; Dr. Tyler as well. Patient is undergoing metastatic workup, although there is no evidence of any cancer anywhere so far. But incidentally patient was found to have colitis. Patient is complaining of minimal abdominal pain without any rebound or rigidity in the abdomen. Patient was found to have pneumoperitoneum with a possibility of ruptured colitis as per the radiologist's reading. Patient does have air under the diaphragm. Patient will be started on antibiotics for diverticulitis. I did discuss with the surgeon regarding her condition. Although patient does not appear to have an acute abdomen, at least clinically, we will get the opinion from the surgeon today. REVIEW OF SYSTEMS: CARDIOVASCULAR: No chest pain, no orthopnea, no PND, no palpitations. PULMONARY: Denied any shortness of breath. No cough or hemoptysis. GASTROINTESTINAL: As described in HPI. NEUROLOGIC: No headaches, no weakness, no numbness. BACK: As mentioned above. Patient continues to have severe pain. Although patient does not like to go to rehab, patient will require rehab. Extensively discussed with the patient regarding the plan of care and also her disposition and also the abdominal imaging findings. Medications were reviewed. PHYSICAL EXAMINATION: VITAL SIGNS: Temperature 96.9, pulse of 82, respiratory rate of 16, blood pressure 136/76. Saturating at 94% on room air. GENERAL: The patient is alert and oriented x3, not in any acute distress. Well developed, well nourished. HEENT: Pupils are round and equally reacting to light. EOMI. No scleral icterus. No conjunctival pallor. Normocephalic, atraumatic. No pharyngeal erythema. No thyromegaly. CARDIOVASCULAR: S1 and S2 present. No murmurs, rubs, or gallops. PULMONARY: Chest is clear to auscultation, no wheezing or crackles. ABDOMEN: Patient has very minimal left lower quadrant abdominal tenderness. No rebound or rigidity. Patient's symptoms are not consistent with CT findings of pneumoperitoneum or peritonitis at this time. MUSCULOSKELETAL: Deferred to Orthopedic Surgery. EXTREMITIES: No cyanosis, clubbing, or pedal edema. NEUROLOGICAL: Gross neurological examination did not reveal any focal deficits. SKIN: No rashes. LABORATORY DATA: CBC, CMP are abnormal for elevated WBC count of 13,100. ASSESSMENT AND PLAN: 1. Back pain secondary to compression fracture of multiple vertebrae, including T7, T10, T12, L2 and T8. Continue with present pain medications. Appreciate orthopedic surgery recommendations. 2. Constipation from opiates. Symptomatic treatment for that. 3. Ruling out malignancies because of the nature of the vertebral compression fractures. 4. Possible diverticulitis and pneumoperitoneum. Management as mentioned above. 5. Moderate persistent asthma without any acute exacerbation. 6. Gastroesophageal reflux disease. PLAN: As mentioned in the interval history as well as assessment.
[2016-08-03] MEDS ORDERED: BUPIVACAIN-EPI 0.25%-1:200,000 30 ML VIAL SQ ONE ×2 (16:49→16:50)
[2016-08-03] MEDS ORDERED: LACTATED RINGERS 1,000 ML IV ONE ×3 (16:54→19:52)
--- NOTE | 2016-08-03 20:14 | P.PCN ---
Date of Procedure: 08/03/16 Preoperative Diagnosis: Perforated diverticulitis, perforated viscus, pneumoperitoneum Postoperative Diagnosis: Perforated sigmoid diverticulitis with intra-abdominal abscess intermesenteric abscess along proximal sigmoid colon, appendicitis, internal hernia 2 Procedure(s) Performed: Exploratory laparotomy with sigmoid colectomy, descending colostomy, abdominal washout 6 L, appendectomy, takedown of internal hernia 2, application of Prevena wound VAC system, placement of ELENI drain right lower quadrant Anesthesia: GETA, local (60 ml quarter percent Marcaine with epinephrine) Surgeon: Renae Herndon Estimated Blood Loss (ml): 250 Pathology: other (Aerobic and anaerobic culture abdominal fluid, sigmoid colon, appendix) Condition: critical Disposition: ICU Operative Findings: Perforated proximal sigmoid colon with mesenteric abscess, internal hernia involving right lower quadrant and right upper abdomen, dilated distended gallbladder without acute cholecystitis, large diaphragmatic hiatal hernia with placement of nasogastric tube and stomach, dilated appendix with multiple appendicoliths and early appendicitis, abdominal washout with 6 L performed, midline wound irrigated including application of wound VAC system
--- NOTE | 2016-08-03 20:45 | XR ---
EXAMINATION TYPE: XR chest 1V DATE OF EXAM: 08/03/2016 8:21 PM CLINICAL HISTORY: Difficulty breathing had to be intubated. TECHNIQUE: Single AP portable supine view of the chest is obtained. COMPARISON: Chest x-ray from one day earlier FINDINGS: There is new endotracheal tube with tip at aortic knob level, the approximately 2 to 3 cm above the ara. There is new orogastric tube projecting below left hemidiaphragm. There is chronic emphysematous change and low lung volumes redemonstrated. No suspicious new focal ai rspace opacity, pleural effusion, or pneumothorax is seen bilaterally. Cardiac silhouette size is sta ble and mildly enlarged. Osseous structures are intact. IMPRESSION: 1. New ET and NGT satisfactory in position. 2. Chronic emphysematous change and cardiomegaly redemonstrated without suspicious new acute pulmonar y process seen.
[2016-08-03] MEDS ORDERED: PROPOFOL 50 ML IV ONE (20:47)
[2016-08-03 21:04] LABS: Glucose,Whole Blood 101 mg/dL (75-99)
[2016-08-03] MEDS ORDERED: SODIUM CHLORIDE 0.9% 2,000 ML IV ONE (22:35)
[2016-08-03] MEDS: CHLORHEXIDINE GLUCONATE 15 ML CUP MUCOUS MEM SCH (23:36)
[2016-08-03] MEDS: HYDROCORTISONE SUCCINATE 100 MG/2 ML VIAL IV SCH (23:37)
[2016-08-03] MEDS: PROPOFOL 500 MG in EMPTY BAG 1 BAG IV SCH (23:38)
[2016-08-03] MEDS: MONTELUKAST 10 MG TAB PO SCH (23:39)
[2016-08-03] MEDS: HYDROmorphone 1 MG/ML 1 ML SYRINGE IV PRN (23:55)
[2016-08-04 00:22] LABS: Glucose,Whole Blood 103 mg/dL (75-99)
[2016-08-04] MEDS: LEVOFLOXACIN 500MG-D5W PMX 500 MG in DEXTROSE/WATER 1 100ML.BAG IVPB SCH ×2 (00:57→16:53)
[2016-08-04] MEDS ORDERED: NOREPINEPHRIN 4 MG-0.9% NS PMX 4 MG/250 ML ML IV SCH (02:15)
[2016-08-04] MEDS: PROPOFOL 500 MG in EMPTY BAG 1 BAG IV SCH ×2 (02:38→05:53)
[2016-08-04 04:47] LABS: Appearance,Urine Cloudy (Clear); Bilirubin,Urine 1+ (Negative); Glucose,Urine (UA) Negative (Negative); Granular Casts,Urine 4 /lpf (0); Ketones,Urine Negative (Negative); Leukocyte Esterase,Urine Small (Negative); Mucus,Urine Occasional /hpf; Nitrite,Urine Negative (Negative); Particle Count 20601; Protein,Urine 1+ (Negative); RBC,Urine >182 /hpf (0-5); UA Billing (MACRO vs. MICRO) MICRO; WBC,Urine 32 /hpf (0-5)
[2016-08-04 05:01] LABS: ABG PH 7.53 (7.35-7.45)
[2016-08-04 05:02] LABS: ABG Base Excess -4.9 mmol/L; ABG HCO3 17 mmol/L (21-25); ABG PCO2 21 mmHg (35-45); ABG PO2 139 mmHg (83-108); ABG TCO2 18 mmol/L (19-24)
[2016-08-04 05:03] LABS: Specific Gravity,Urine 1.047 (1.001-1.035)
[2016-08-04 05:22] LABS: CH 33.4; CHCM 31.4; HCT 31.7 % (34.0-46.0); HDW 2.77; Hypochromasia Slight; Immature Gran Flag Slight; MCH 33.8 pg (25.0-35.0); MCHC 31.6 g/dL (31.0-37.0); MCV 106.9 fL (80.0-100.0); Macrocytosis Moderate; Mean Platelet Volume 7.3; RBC 2.97 m/uL (3.80-5.40); RDW 14.9 % (11.5-15.5); WBC 14.3 k/uL (3.8-10.6); WBC (Perox) 14.94
[2016-08-04 05:28] LABS: ALT 53 U/L (9-52); AST 28 U/L (14-36); Alkaline Phosphatase 84 U/L (38-126); Anion Gap 5 mmol/L; Blood Urea Nitrogen 30 mg/dL (7-17); Calcium 7.5 mg/dL (8.4-10.2); Carbon Dioxide 21 mmol/L (22-30); Chloride 106 mmol/L (98-107); Glucose 103 mg/dL (74-99); Iron <10 ug/dL (37-170); Magnesium 1.5 mg/dL (1.6-2.3); Non-African American GFR(MDRD) 55 (>60 ml/min/1.73 sqM); Phosphorous 4.3 mg/dL (2.5-4.5); Potassium 4.8 mmol/L (3.5-5.1); Sodium 132 mmol/L (137-145); Total Bilirubin 0.7 mg/dL (0.2-1.3); Total Protein 4.3 g/dL (6.3-8.2)
[2016-08-04 05:37] LABS: % Iron Saturation <5.6 % (20-50); Total Iron Binding Capacity 178 ug/dL (265-497)
[2016-08-04 05:39] LABS: Add Differential Manual Differential
[2016-08-04 05:41] LABS: Manual Review Performed; Nucleated Red Blood Cells 0 /100 WBC (0-0); Total Cells Counted 100
[2016-08-04] MEDS: SODIUM CHLORIDE 0.9% 1,000 ML with POTASSIUM CHLORIDE 20 MEQ IV SCH ×4 (05:53→18:57)
[2016-08-04] MEDS: MAGNESIUM SULFATE-D5W PMX 1 GM in DEXTROSE/WATER 1 100ML.BAG IVPB SCH ×4 (06:51→15:15)
[2016-08-04] MEDS: HYDROmorphone 1 MG/ML 1 ML SYRINGE IV PRN ×5 (07:00→22:19)
[2016-08-04] MEDS: IPRATROPIUM-ALBUTEROL 3 ML NEB INHALATION SCH ×4 (07:04→19:56)
[2016-08-04] MEDS: SYMBICORT 160-4.5 MCG INHALER INHALATION SCH (07:04)
--- NOTE | 2016-08-04 07:28 | XR ---
EXAMINATION TYPE: XR chest 1V portable DATE OF EXAM: 08/04/2016 6:29 AM CLINICAL HISTORY: Difficulty breathing progress study. TECHNIQUE: Single AP portable semiupright view of the chest is obtained. COMPARISON: Chest x-ray from one day earlier. CTA chest July 28, 2016 FINDINGS: The endotracheal tube and orogastric tube are stable in appearance. There is chronic paren chymal change and low lung volumes redemonstrated. No suspicious new focal airspace opacity, pleural effusion, or pneumothorax is seen bilaterally. Cardiac silhouette size is stable and mildly enlarged. Fullness right paratracheal region remains present. This correlates with prominent mediastinal fat o n recent CT. Osseous structures are intact. IMPRESSION: Overall stable findings, chronic parenchymal change and cardiomegaly with low lung volu mes, no suspicious focal infiltrate.
[2016-08-04] MEDS: metroNIDAZOLE-NS PMX 500 MG in SALINE 1 100ML.BAG IVPB SCH ×2 (07:54→16:52)
[2016-08-04] MEDS: PANTOPRAZOLE 40 MG/10 ML VIAL IV SCH (07:54)
[2016-08-04] MEDS: HYDROCORTISONE SUCCINATE 100 MG/2 ML VIAL IV SCH ×2 (07:55→16:53)
--- NOTE | 2016-08-04 09:05 | OP ---
DATE OF SERVICE: 08/03/2016 SURGEON: MIKE MERRITT MD PREOPERATIVE DIAGNOSES: 1. Pneumoperitoneum. 2. Perforated viscus. 3. Perforated sigmoid diverticulitis. 4. History of moderate to severe chronic obstructive pulmonary disease. 5. Chronic systemic steroid use. 6. History of rheumatoid arthritis with methotrexate. 7. History of multiple thoracic and lumbar compression fractures. 8. Obesity, body mass index of 34.3. 9. Family history of colon cancer. 10. Diaphragmatic hiatal hernia. 11. Gastroesophageal reflux disease. 12. Upper abdominal pain. POSTOPERATIVE DIAGNOSES: 1. Pneumoperitoneum. 2. Perforated viscus. 3. Perforated sigmoid diverticulitis. 4. History of moderate to severe chronic obstructive pulmonary disease. 5. Chronic systemic steroid use. 6. History of rheumatoid arthritis with methotrexate. 7. History of multiple thoracic and lumbar compression fractures. 8. Obesity, body mass index of 34.3. 9. Family history of colon cancer. 10. Diaphragmatic hiatal hernia. 11. Gastroesophageal reflux disease. 12. Upper abdominal pain. 13. Internal hernia right lower quadrant. 14. Perforated proximal sigmoid colon diverticulitis. 15. Appendicitis. 16. Intra-abdominal abscesses including intermesenteric abscess along the proximal sigmoid colon. OPERATION: 1. Exploratory laparotomy with sigmoid colectomy. 2. Creation of descending colostomy. 3. Abdominal washout 6 liters. 4. Open appendectomy. 5. Takedown of internal hernia x2, right lower quadrant and right pelvis. 6. Placement of ELENI drain right lower quadrant. 7. Application of Prevena wound VAC system. ANESTHESIA: General with 60 mL 0.25% Marcaine with epinephrine. ESTIMATED BLOOD LOSS: 250 mL. SPECIMENS REMOVED: 1. Aerobic, anaerobic culture of intra-abdominal pelvic fluid and abscess. 2. Sigmoid colon. 3. Appendix. COMPLICATIONS: None. CONDITION: Critical. DISPOSITION: To the ICU. OPERATIVE FINDINGS: 1. Perforated proximal sigmoid colon with intermesenteric abscess. 2. Internal hernia involving the right lower quadrant and right pelvis of the fallopian tube and the cecum. 3. Dilated distended gallbladder without acute cholecystitis. 4. Large diaphragmatic hiatal hernia with placement of nasogastric tube in the stomach. 5. Dilated appendix with multiple appendicolith and early appendicitis. 6. Abdominal washout with 6 liters normal saline performed. 7. Midline abdominal wound irrigated with normal saline and hydrogen peroxide with application of wound VAC Prevena system. INDICATIONS: Angelique Cook is a 66-year-old female who has a long-standing hospitalization secondary to severe back pain. She was found to have multiple thoracic and lumbar compression fractures. In fact she was undergoing a metastatic work-up whereby CT of the abdomen and pelvis was performed. She had an incidental finding of moderate amount of free with features of air within the pelvis consistent with perforated diverticulitis. She reports a family history of her mother having colon cancer and needed a colostomy. Separately, she reports having chronic constipation with multiple medications to control her back pain. Incidentally, she was also complaining of upper abdominal pain as well. Given the findings of pneumoperitoneum emergent surgical intervention was described to her, including her family members. Benefits and risks of the procedure including bleeding, infection, creation of a temporary colostomy were also reviewed. Informed consent was obtained. Separately, the patient has moderate to severe chronic obstructive pulmonary disease and chronic steroid use for which per recommendation of the meteorologist in charge, ICU and ventilatory management was also described. DESCRIPTION: Patient was brought to the operating room, laid in supine position. After general induction, Jeter catheter was placed. The abdomen had been prepped and draped in standard sterile fashion including placement of Ioban drape. She was on scheduled antibiotics including levofloxacin and Flagyl which were continued during the case. After a timeout protocol was confirmed with surgical team, the proposed incisions of the midline including of the proposed ostomy site of the left lower quadrant were infiltrated with a mixture of 60 mL of normal saline with 60 mL of 0.25% Marcaine. Dilute solution was used to provide for postop analgesia including minimize any risk of skin bleeding. Next using a #10 blade, a midline incision was made into the subcutaneous tissue and through the fascia. Immediately, gush of air had escaped from the abdomen. Incision was completed from just at the epigastrium down to above the pubis. The small bowel had looked fairly unremarkable in its presentation. Using digital palpation, immediately a large phlegmon and thickened mesentery was found along the sigmoid colon. Using a Luki trap, the intrapelvic abscess was suction and sent for aerobic and anaerobic cultures. At least 10 to 15 mL of alana purulence was sent. Next the small bowel was toweled off using a white towel of the upper abdomen. The descending colon was mobilized along the white line of Toldt. The colon was mobilized down to the pelvic inlet. Care was taken to avoid the anatomical landmarks of the ureter. Next, she had moderate redundant sigmoid colon whereby air within the mesentery of was identified tracking from the area of perforation. A point of transection was identified along the descending colon and divided using a linear stapler using a 75 mm blue load. The descending colon was mobilized up to the splenic flexure to allow for adequate colon to mature her descending colostomy. Next, the specimen involving the sigmoid colon was mobilized to the pelvic inlet. Again, extremely large and thickened mesentry was identified and controlled for bleeding using impact LigaSure device. Mesentery was severely thickened with active pus identified. The inflammatory changes had actually even gone down to the proximal rectum. Carefully the rest of the sigmoid colon had been mobilized. The point of proximal transection was identified distal to the area of perforation. Using a contour stapler initially the specimen was too thick to allow for use of this instrument, hence a square TA 60 blue load stapler was used to fire. The specimen was divided using a #15 blade. Please note a Bookwalter self retraining retractor was used to allow for excellent visualization of the rest of the pelvis. Her uterus was also present. Fallopian tubes were also present. In fact internal hernia was identified of the right lower pelvis, were the epiploica of the cecum was adherent to the fallopian tube. The epiploica was divided as this actually created an internal hernia. A separate internal hernia was also identified at the omentum to the anterior abdominal wall which was also taken down sharply using LigaSure. Hemostasis was checked. The pelvis was copiously irrigated with 6 liters of warm normal saline solution in all quadrants. A round of 19 ELENI drain was entered through the right lower quadrant and the drain was placed anterior to the rectum as well as by the defunctionalized rectum. A stay suture using 2-0 Prolene was placed as to identify the rectal stump. Attention was now brought to the stomach whereby along the hiatus a large defect consistent with periesophageal hernia was found incorporating at least up to the length of 5 cm into the chest cavity. With the help with the nurse astronomy instructor, a nasogastric tube was placed and entered into the gastric fundus. Attention was now brought to the right lower quadrant whereby the cecum was actually quite moderate. The base of the cecum was without inflammatory changes; however, the appendix was dilated and had multiple appendicoliths. The tip was also dilated with mild hyperemic consistent with early appendicitis. This may also be a reaction to inflammatory changes from her perforation. Given; however, the features of appendicolith including inflammatory changes, the appendix was prepared for removal. The mesoappendix was mobilized using a LigaSure impact device. The base of the appendix was taken using a 75 mm blue load stapler MARY. The appendiceal stump was hemostatic. The specimen was passed off. Next, the rest of the cecum and the serosa was evaluated for earlier concerns for metastatic disease. The liver serosa was completely unremarkable; however, the gallbladder was moderately distended. No features of grossly chronic cholecystitis was identified. At this point, her additional films of her CT of the abdomen and pelvis were reviewed, which also confirmed, distended gallbladder without features of inflammatory changes or cholecystitis. As a result, gallbladder was left unharmed. The rest of the small bowel was found to be unremarkable. Attention was brought to closure of the abdomen. The descending colon was brought out through a skin incision along the left lateral anterior abdominal wall. Using a Aaliyah the skin was elevated and a #10 blade was used to create a circular incision for the creation of her ostomy. Next, the core fat was excised using electro- Bovie cautery. Hemostasis was checked. In a longitudinal fashion an electro-Bovie cautery was used to split the muscles. The abdominal cavity was entered via the proposed colostomy site. The fascial edge was widened. Hemostasis was also checked with electro- Bovie cautery. Using a Guerda the descending colon was brought out as ostomy through the skin. All skin instruments including gowns and gloves were changed. As all instruments were exchanged for a clean closure, the fascia was closed using double-stranded PDS carefully. Please note prior to closure, the omentum was brought to cover the small bowel and minimize any risk for future incisional hernias incorporating small bowel. The ELENI was tacked to the skin using 2-0 nylon. It was attached to suction. Next the skin was copiously irrigated using normal saline at least 250 mL followed by 50 mL of hydrogen peroxide. Hemostasis was excellent. As a wound VAC system would be used and with her history of steroid use, interrupted 3-0 Vicryl was placed loosely throughout the rest of the incision as to allow for fluid egress from the wound. The midline incision was temporarily covered using a blue towel. Please note prior to closure of the abdomen, the sponge count was verified correct. Next attention was now brought to the left lower quadrant for maturation of the ostomy. The staple line was excised using electro- Bovie cautery. The ostomy was matured using bites of the dermis followed by serosa followed by the mucosa and the colostomy was everted and matured using 2-0 Vicryl in all 4 quadrants. In between quadrants 3-0 Vicryl was placed in a subcuticular fashion. The Coloplast was cut to size to cover the ostomy site of 45 mm disc. Immediately stool emanated fom the newly matured ostomy. Gloves were changed and along the midline a Prevena wound VAC system for exploratory laparotomy device was placed along the midline. For the ELENI site, an Optifoam dressing square size was placed. The ELENI was placed also to bulb suction. A wound VAC system was attached to the Prevena dressing. At the end of this procedure, needle, sponge, and instrument count had been verified correct by the surgical clinical reviewer. The patient was transferred to the intensive care unit in stable condition; however, on a ventilator given her moderate to severe chronic obstructive pulmonary disease. Intraoperative findings including a distended gallbladder was described to the patient's family. The patient may still be at risk for developing cholecystitis, which should be closely watched. She will also be continued on antibiotics. ESTELA
[2016-08-04] MEDS: CHLORHEXIDINE GLUCONATE 15 ML CUP MUCOUS MEM SCH ×2 (10:04→22:15)
--- NOTE | 2016-08-04 10:21 | P.PN ---
Subjective 66-year-old female patient, obese, known history of asthma, with known history of compression fracture of the vertebral spine, presented with pain in her lower back radiating to the right upper quadrant and right mid abdominal area. It seems that the pain is more so localized anteriorly and moving posterior to her back. Not the typical compression fracture pain that is encountered usually. No shortness of breath. The pain is somewhat worse with deep breathing however the patient had a CT angios the chest that showed no evidence of any pulmonary embolism. There is some limited patchy infiltrate in the right posterior lobe/right lower lobe along with some pleuritic irregularities posteriorly in the right lung base. Nevertheless, the abnormality was not enough to explain the patient's symptoms. The patient was admitted for for further workup. No nausea. No vomiting. No diarrhea. No bloody bowel movements. No chills. No fever. No falls pain no trauma to the back or side. No overlying skin rashes. No shingles. The x-ray of the abdomen raised the suspicion for a right renal stone measuring 2.4 x 1.5 cm in size. The x-ray of the lumbar spine showed osteophytic compression fracture and it was suspected at T12. T10 fracture was not completely excluded. The patient was seen by orthopedic surgery and general surgery in both signed off. I came to realize that the patient's urinalysis was also normal. There is increased red blood cells and some oxalate crystals seen. The patient is seen again today 07/30/2016 in follow-up on the regular medical floor. She is awake and alert in no acute distress. She still has some complaints of right-sided flank pain. Does have a right non-obstructive renal calculus. Has has known compression fractures. She is being followed by surgical services, orthopedic services and urology. No plans for intervention at this time. Denies any shortness of breath, cough or congestion. Her asthma is inactive and stable. On 07/31/2016 the patient is being seen in follow-up. She is still having the same pain over her back which is rather nonspecific and does not indicate to a specific pathology. Upon further questioning again today, the patient's pain is moving from her mid back and the right flank area and then moving to the left flank and moving up to the left upper posterior chest area. Not related to breathing. Rated to movements. The patient was seen by multiple consultants and there is no clear cause for this pain and we are still suspect in this and may be originating from her thoracolumbar spine. Based on that an MRI of the lumbar spine and the thoracic spine was ordered. The patient was also seen by pain management. On 08/01/2016 I'm seeing this patient in follow-up. She is still in pain in her condition essentially unchanged. The patient had an MRI of the thoracolumbar spine that showed severe compression deformity at the level of T12 with a 1.2 cm displacement of the posterior superior wall causing spinal canal narrowing. There is also compression deformity of the superior endplate of L2 which is likely old and 3 subtotal partially visualized superior endplate compression at the level of T11. The patient will be taken for a steroid injection by pain management. On 08/02/2016, the patient is feeling better. The patient had an epidural shot to her back and it is somewhat controlled the patient's pain. No other new complaints otherwise for now. She is resting comfortably in bed. She is on 20 mg of prednisone that needs to be tapered down further to 10 mg on a daily basis. The events that occurred on 08/03/2016 was noted. The CAT scan findings was also noted. Note that there was found to have free air in her CAT scan of the abdomen suggestive of bowel perforation. At that point the patient was taken to an emergent expiratory laparotomy and the patient was found to have a perforated diverticulitis, perforated viscus and pneumoperitoneum. 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 The patient underwent sigmoid colectomy, descending colostomy, abdominal washout with 6 L, appendectomy, taking down of internal hernia and application of prevena wound VAC system and ELENI drains in the right lower quadrant. Postop the patient was kept intubated on a mechanical ventilator and she was brought to the intensive care unit. At that the patient became slightly hypotensive and she was suspected to IV fluids. She was given more than 3 L of IV fluids and she was placed on 2 mics of levo fed for hemodynamic support. This morning the patient is off pressors. The patient is producing adequate amount of urine output. She was kept on a mechanical ventilator overnight. Her chest x-ray from this morning shows a stable finding with chronic changes and cardiomegaly with low lung volumes. He weaning parameters are appropriate and the patient was given a sedation holiday and following that the patient was given as pertains breathing trial with a pressure support of 5 and a PEEP of 5 and following that the patient was extubated to nasal cannula. NG tube was kept in place. ELENI drains also in place. No complaints otherwise for now. The patient is alert and awake and communicating. She is covered with a combination of Levaquin and Flagyl as broad-spectrum antibiotic coverage. Objective - Vital Signs Vital signs: Vital Signs Temp 98.2 F 08/04/16 08:00 Pulse 91 08/04/16 10:00 Resp 25 H 08/04/16 10:00 BP 110/58 08/04/16 10:00 Pulse Ox 87 L 08/04/16 10:00 Intake & Output 08/03/16 08/04/16 08/04/16 18:59 06:59 18:59 Intake Total 2700 3656.965 700.015 Output Total 1030 220 Balance 2700 2626.965 480.015 Weight 90.718 kg 97.2 kg 97.2 kg Intake: IV 2400 3560 600 Lactated Ringers 1,000 ml 1200 300 As IV .[facility] Rx#: [id number] Levofloxacin 500Mg-D5w 100 Pmx 500 mg In Dextrose/ Water 1 100ml.bag @ 100 mls/hr IVPB Q24H [facility] Rx#: [id number] Magnesium Sulfate-D5w Pmx 200 1 gm In Dextrose/Water 1 100ml.bag @ 100 mls/hr IVPB Q1H [facility] Rx#: [id number] Sodium Chloride 0.9% 1, 2160 000 ml @ 80 mls/hr IV . [id number] [facility] Rx#:[id number] metroNIDAZOLE-NS PMX 500 100 100 mg In Saline 1 100ml.bag @ 100 mls/hr IVPB Q8HR [facility] Rx#:[id number] Intake, IV Titration 96.965 100.015 Amount Norepinephrin 4 mg-0.9% 37.375 Ns Pmx 4 mg In 250 ml @ Titrate IV .Q0M [facility] Rx#: [id number] Propofol 500 mg In Empty 96.965 32.64 Bag 1 bag @ Titrate IV . Q0M [facility] Rx#:[id number] Sodium Chloride 0.9% 1, 20 000 ml @ 100 mls/hr IV . Q10H6M [facility] with Potassium Chloride 20 meq Rx#: [id number] Sodium Chloride 0.9% 1, 10 000 ml @ 80 mls/hr IV . [id number] [facility] Rx#:[id number] Oral 300 Output: Gastric Drainage 150 Drainage 80 70 Right Lateral Abdomen 80 70 Urine 550 150 Estimated Blood Loss 250 Other: Voiding Method Indwelling Catheter Indwelling Catheter # Voids 1 1 ABP, PAP, CO, CI - Last Documented Arterial Blood Pressure 99/86 - Exam Head exam was generally normal. There was no scleral icterus or corneal arcus. Mucous membranes were moist.Neck was supple and without jugular venous distension, thyromegaly, or carotid bruits. Carotids were easily palpable bilaterally. There was no adenopathy. Lung sounds are diminished at bilaterally especially in the lung bases.Cardiac exam revealed the PMI to be normally situated and sized. The rhythm was regular and no extrasystoles were noted during several minutes of auscultation. The first and second heart sounds were normal and physiologic splitting of the second heart sound was noted. There were no murmurs, rubs, clicks, or gallops. Abdomen is soft and the patient has a prevena wound VAC in place. ELENI drain is also in place. Bowel sounds are hypoactive. Colostomy site is viable.Examination of the extremities revealed easily palpable radial, femoral and pedal pulses. There was no cyanosis , clubbing or edema. - Labs CBC & Chem 7: 08/04/16 05:05 08/04/16 05:05 Labs: Abnormal Lab Results - Last 24 Hours (Table) 08/03/16 08/04/16 08/04/16 Range/Units 21:02 00:21 04:30 WBC (3.8-10.6) k/uL RBC (3.80-5.40) m/uL Hgb (11.4-16.0) gm/dL Hct (34.0-46.0) % MCV (80.0-100.0) fL Neutrophils # (Manual) (1.3-7.7) k/uL ABG pH (7.35-7.45) ABG pCO2 (35-45) mmHg ABG pO2 (83-108) mmHg ABG HCO3 (21-25) mmol/L ABG Total CO2 (19-24) mmol/L ABG O2 Saturation (94-97) % Sodium (137-145) mmol/L Carbon Dioxide (22-30) mmol/L BUN (7-17) mg/dL Glucose (74-99) mg/dL POC Glucose (mg/dL) 101 H 103 H (75-99) mg/dL Calcium (8.4-10.2) mg/dL Magnesium (1.6-2.3) mg/dL Iron (37-170) ug/dL TIBC (265-497) ug/dL % Saturation (20-50) % ALT (9-52) U/L Total Protein (6.3-8.2) g/dL Albumin (3.5-5.0) g/dL Urine Appearance Cloudy H (Clear) Ur Specific [place] 1.047 H (1.001-1.035) Urine Protein 1+ H (Negative) Urine Blood Large H (Negative) Urine Bilirubin 1+ H (Negative) Ur Leukocyte Esterase Small H (Negative) Urine RBC >182 H (0-5) /hpf Urine WBC 32 H (0-5) /hpf Urine Mucus Occasional H (None) /hpf 08/04/16 08/04/16 08/04/16 Range/Units 04:57 05:05 05:05 WBC 14.3 H (3.8-10.6) k/uL RBC 2.97 L (3.80-5.40) m/uL Hgb 10.0 L D (11.4-16.0) gm/dL Hct 31.7 L (34.0-46.0) % MCV 106.9 H (80.0-100.0) fL Neutrophils # (Manual) 13.7 H (1.3-7.7) k/uL ABG pH 7.53 H (7.35-7.45) ABG pCO2 21 L (35-45) mmHg ABG pO2 139 H (83-108) mmHg ABG HCO3 17 L (21-25) mmol/L ABG Total CO2 18 L (19-24) mmol/L ABG O2 Saturation 100.0 H (94-97) % Sodium 132 L (137-145) mmol/L Carbon Dioxide 21 L (22-30) mmol/L BUN 30 H (7-17) mg/dL Glucose 103 H (74-99) mg/dL POC Glucose (mg/dL) (75-99) mg/dL Calcium 7.5 L (8.4-10.2) mg/dL Magnesium 1.5 L (1.6-2.3) mg/dL Iron <10 L (37-170) ug/dL TIBC 178 L (265-497) ug/dL % Saturation <5.6 L (20-50) % ALT 53 H (9-52) U/L Total Protein 4.3 L (6.3-8.2) g/dL Albumin 2.1 L (3.5-5.0) g/dL Urine Appearance (Clear) Ur Specific [place] (1.001-1.035) Urine Protein (Negative) Urine Blood (Negative) Urine Bilirubin (Negative) Ur Leukocyte Esterase (Negative) Urine RBC (0-5) /hpf Urine WBC (0-5) /hpf Urine Mucus (None) /hpf Assessment and Plan Plan: Assessment 1 acute pneumoperitoneum secondary to a perforated diverticulitis. Patient is status post expiratory laparotomy, sigmoid colectomy, descending colostomy, abdominal washout with 6 L of fluids, appendectomy, taken down of internal hernia NE application of a wound VAC system and placement of ELENI drain. Patient is postop day #1. 2 post abdominal surgery respiratory failure, weaned off the mechanical ventilator and extubated today without any major difficulties. 3 pain involving the right kidney/flank/lower thoracic/upper lumbar area. After an extensive workup, the pain seems to be originating from a severe compression deformity of T12 and compression fractures of the level of L2 and L3. The patient was seen a steroid injection today, likely epidural 4 bronchial asthma or chronic 4 chronic back pain 5 diverticulosis 6 obesity. 7 urinary incontinence with stress urinary type. Plan The patient was extubated successfully this morning. The patient is not having any major respiratory difficulties. Provide the patient incentive spirometer. Continue the bronchodilators. Pulmonary toileting. Keep the NG tube in place. Monitor the output from the ELENI drain. Keep the wound VAC in place. Continue the combination of antibiotics include Levaquin and Flagyl. Lovenox for the for the prophylaxis. No pressors for now. Keep the patient ICU and will continue to monitor. This evaluation was done and 32 minutes.
--- NOTE | 2016-08-04 10:34 | P.PN ---
Subjective Principal diagnosis: Perforated sigmoid diverticulitis with appendicitis The patient is a 66-year-old female who has been hospitalized for multiple compression fractures of the thoracic and lumbar spine. Yesterday she had a CT of the abdomen and pelvis demonstrating free air. Intraoperative findings included perforated diverticulitis with phlegmon along the pelvis as well as appendicitis. She reported initially severe bilateral upper abdominal pain radiating to the back however this morning after extubation, she reports her pain is now resolved. Her family is at bedside. She describes irritation from the nasogastric tube. Objective - Vital Signs Vital signs: Vital Signs Temp 98.2 F 08/04/16 08:00 Pulse 91 08/04/16 10:00 Resp 25 H 08/04/16 10:00 BP 110/58 08/04/16 10:00 Pulse Ox 87 L 08/04/16 10:00 Intake & Output 08/03/16 08/04/16 08/04/16 18:59 06:59 18:59 Intake Total 2700 3656.965 700.015 Output Total 1030 220 Balance 2700 2626.965 480.015 Weight 90.718 kg 97.2 kg 97.2 kg Intake: IV 2400 3560 600 Lactated Ringers 1,000 ml 1200 300 As IV .[facility]K-[facility] Rx#: [id number] Levofloxacin 500Mg-D5w 100 Pmx 500 mg In Dextrose/ Water 1 100ml.bag @ 100 mls/hr IVPB Q24H [facility] Rx#: [id number] Magnesium Sulfate-D5w Pmx 200 1 gm In Dextrose/Water 1 100ml.bag @ 100 mls/hr IVPB Q1H [facility] Rx#: [id number] Sodium Chloride 0.9% 1, 2160 000 ml @ 80 mls/hr IV . [id number] [facility] Rx#:[id number] metroNIDAZOLE-NS PMX 500 100 100 mg In Saline 1 100ml.bag @ 100 mls/hr IVPB Q8HR [facility] Rx#:[id number] Intake, IV Titration 96.965 100.015 Amount Norepinephrin 4 mg-0.9% 37.375 Ns Pmx 4 mg In 250 ml @ Titrate IV .Q0M [facility] Rx#: [id number] Propofol 500 mg In Empty 96.965 32.64 Bag 1 bag @ Titrate IV . Q0M [facility] Rx#:[id number] Sodium Chloride 0.9% 1, 20 000 ml @ 100 mls/hr IV . Q10H6M [facility] with Potassium Chloride 20 meq Rx#: [id number] Sodium Chloride 0.9% 1, 10 000 ml @ 80 mls/hr IV . [id number] [facility] Rx#:[id number] Oral 300 Output: Gastric Drainage 150 Drainage 80 70 Right Lateral Abdomen 80 70 Urine 550 150 Estimated Blood Loss 250 Other: Voiding Method Indwelling Catheter Indwelling Catheter # Voids 1 1 ABP, PAP, CO, CI - Last Documented Arterial Blood Pressure 99/86 - Exam GENERAL: Well developed and in no acute distress. Pleasant. HEENT: No sclera icterus. Extraocular movements grossly intact. Moist buccal mucosa. Head is atraumatic, normocephalic. Hears conversational speech. No nasal drainage. Nasogastric tube along the left nares patent with dark brown effluent. NECK: Supple without lymphadenopathy. No JV distention. CHEST: Non-labored respirations and equal bilateral excursions. CARDIOVASCULAR: Tachycardic. Palpable 2+ radial pulses. ABDOMEN: Soft. Nondistended. Minimal edy-incisional tenderness. Ostomy is pink patent with minimal gas within Coloplast. Prevena wound VAC clean dry and intact without air leaks. No signs of cellulitis along midline incision. ELENI serosanguineous. : Urine dark tea-colored with outputs averaging 25 mL/h. MUSCULOSKELETAL: No clubbing, cyanosis or edema. NEUROLOGIC: No focal or lateralizing signs. PSYCH: Appropriate affect. Alert and oriented to person, place and time. - Labs CBC & Chem 7: 08/04/16 05:05 08/04/16 05:05 Labs: Abnormal Lab Results - Last 24 Hours (Table) 08/03/16 08/04/16 08/04/16 Range/Units 21:02 00:21 04:30 WBC (3.8-10.6) k/uL RBC (3.80-5.40) m/uL Hgb (11.4-16.0) gm/dL Hct (34.0-46.0) % MCV (80.0-100.0) fL Neutrophils # (Manual) (1.3-7.7) k/uL ABG pH (7.35-7.45) ABG pCO2 (35-45) mmHg ABG pO2 (83-108) mmHg ABG HCO3 (21-25) mmol/L ABG Total CO2 (19-24) mmol/L ABG O2 Saturation (94-97) % Sodium (137-145) mmol/L Carbon Dioxide (22-30) mmol/L BUN (7-17) mg/dL Glucose (74-99) mg/dL POC Glucose (mg/dL) 101 H 103 H (75-99) mg/dL Calcium (8.4-10.2) mg/dL Magnesium (1.6-2.3) mg/dL Iron (37-170) ug/dL TIBC (265-497) ug/dL % Saturation (20-50) % ALT (9-52) U/L Total Protein (6.3-8.2) g/dL Albumin (3.5-5.0) g/dL Urine Appearance Cloudy H (Clear) Ur Specific [place] 1.047 H (1.001-1.035) Urine Protein 1+ H (Negative) Urine Blood Large H (Negative) Urine Bilirubin 1+ H (Negative) Ur Leukocyte Esterase Small H (Negative) Urine RBC >182 H (0-5) /hpf Urine WBC 32 H (0-5) /hpf Urine Mucus Occasional H (None) /hpf 08/04/16 08/04/16 08/04/16 Range/Units 04:57 05:05 05:05 WBC 14.3 H (3.8-10.6) k/uL RBC 2.97 L (3.80-5.40) m/uL Hgb 10.0 L D (11.4-16.0) gm/dL Hct 31.7 L (34.0-46.0) % MCV 106.9 H (80.0-100.0) fL Neutrophils # (Manual) 13.7 H (1.3-7.7) k/uL ABG pH 7.53 H (7.35-7.45) ABG pCO2 21 L (35-45) mmHg ABG pO2 139 H (83-108) mmHg ABG HCO3 17 L (21-25) mmol/L ABG Total CO2 18 L (19-24) mmol/L ABG O2 Saturation 100.0 H (94-97) % Sodium 132 L (137-145) mmol/L Carbon Dioxide 21 L (22-30) mmol/L BUN 30 H (7-17) mg/dL Glucose 103 H (74-99) mg/dL POC Glucose (mg/dL) (75-99) mg/dL Calcium 7.5 L (8.4-10.2) mg/dL Magnesium 1.5 L (1.6-2.3) mg/dL Iron <10 L (37-170) ug/dL TIBC 178 L (265-497) ug/dL % Saturation <5.6 L (20-50) % ALT 53 H (9-52) U/L Total Protein 4.3 L (6.3-8.2) g/dL Albumin 2.1 L (3.5-5.0) g/dL Urine Appearance (Clear) Ur Specific [place] (1.001-1.035) Urine Protein (Negative) Urine Blood (Negative) Urine Bilirubin (Negative) Ur Leukocyte Esterase (Negative) Urine RBC (0-5) /hpf Urine WBC (0-5) /hpf Urine Mucus (None) /hpf Assessment and Plan (1) Perforated sigmoid colon Status: Acute (2) Perforation of sigmoid colon due to diverticulitis Status: Acute (3) Leukocytosis Status: Acute (4) COPD, moderate Status: Acute (5) Current chronic use of systemic steroids Status: Acute (6) Rheumatoid arthritis Status: Acute (7) Thoracic back pain Status: Acute (8) Thoracic compression fracture Status: Acute (9) Compression deformity of vertebra Status: Acute (10) Reflux esophagitis Status: Acute (11) Hiatal hernia with GERD Status: Acute (12) Appendicitis Status: Acute Plan: 1. She has been extubated and is recovering well. Continue with nasogastric tube until functioning of her ostomy. 2. Will need ostomy care nurse regarding teaching. 3. She has moderate pain requirements and may benefit from a fentanyl once more hemodynamically stable. 4. Recommend IV fluid boluses for dehydration. 5. Correction of electrolyte abnormalities including hypomagnesia. 6. Please continue with ICU care given complexity of case and guarded prognosis.
[2016-08-04] MEDS ORDERED: SODIUM CHLORIDE 0.9% 2,000 ML IV ONE (10:35)
[2016-08-04] MEDS: ENOXAPARIN 40 MG/0.4 ML SYRINGE SQ SCH (11:07)
--- NOTE | 2016-08-04 11:35 | P.PN ---
Progress Note - Text Postoperative day #1 status post open exploratory laparotomy for ruptured viscus and free of hair. Patient is seen and examined today at bedside. The patient has some pain around the surgical site as expected but feels that her pain is significant improved from prior to her surgery. Her computed tomography showed free air and she was taken to the operating room with Dr. Garcia where they discovered significant amount of free air and pus with ruptured sigmoid colon . I reviewed the case with Dr. Garcia and review the operative note and I feel that surgery was crucial for her. The patient feels as though she is making improvement now. Pain is being controlled with medication. Physical Exam Afebrile with stable vital signs Abdomen is soft nontender. the surgical dressings intact Chest has good excursion deep and space expiration Extremities have not had neurologic change from prior to surgery. Calves and thighs were soft nontender without evidence of DVT. Assessment/Plan Postoperative day #[address] Garcia for exploratory laparotomy with irrigation and debridement repair. The patient's workup showed abdominal issues which were somewhat unexpected for her. The issues may been mass with her chronic steroid use and pain medications. Her symptoms have significantly improved in terms of her overall pain. At this point we do not have further plan of surgical intervention for her thoracic or lumbar spine. We will see how she does with her recovery from her abdominal issues.
[2016-08-04] MEDS: SODIUM FERRIC GLUCONAT-SUCROSE 125 MG in SODIUM CHLORIDE 0.9% 100 ML IVPB SCH (12:22)
[2016-08-04 12:34] LABS: Glucose,Whole Blood 105 mg/dL (75-99)
--- NOTE | 2016-08-04 17:22 | PN ---
Patient is admitted with compression fracture, admitted for possible compression fracture now yesterday incidentally found to have free air intraperitoneal and found to have bowel rupture at the sigmoid colon area and patient was emergently taken for surgery and patient was started on metronidazole and levofloxacin. Patient underwent colectomy and presently clinically doing well. REVIEW OF SYSTEMS: CARDIOVASCULAR: No chest pain, no orthopnea, no PND, no palpitations. PULMONARY: Denied any shortness of breath. No cough or hemoptysis. GASTROINTESTINAL: No diarrhea, nausea or vomiting. No abdominal pain. Normoactive bowel sounds. NEUROLOGIC: No headaches, no weakness, no numbness. Medications were reviewed. The patient has an NG tube in place. PHYSICAL EXAMINATION: VITAL SIGNS: Temperature 98.2, pulse of 83, respiratory rate of 30, blood pressure is 111/59, saturating at 94% on 4 liters of oxygen by nasal cannula. GENERAL: The patient is alert and oriented x3, not in any acute distress. Well developed, well nourished. HEENT: Pupils are round and equally reacting to light. EOMI. No scleral icterus. No conjunctival pallor. Normocephalic, atraumatic. No pharyngeal erythema. No thyromegaly. CARDIOVASCULAR: S1 and S2 present. No murmurs, rubs, or gallops. PULMONARY: Chest is clear to auscultation, no wheezing or crackles. ABDOMEN: Patient has a colostomy bag in place and surgical site area appears to be tender. MUSCULOSKELETAL: No joint swelling or deformity. EXTREMITIES: No cyanosis, clubbing, or pedal edema. NEUROLOGICAL: Gross neurological examination did not reveal any focal deficits. SKIN: No rashes. LABORATORY DATA: Sodium is 132 secondary to hypovolemic hyponatremia. Patient is receiving IV fluid resuscitation at this point of time. ASSESSMENT AND PLAN: 1. Perforated bowel and acute abdomen. Patient emergently underwent surgery. Patient is otherwise clinically doing well now post surgery. Continue with IV fluids, aggressive IV fluid hydration with sodium chloride and continue with antibiotics. 2. Back pain and compression fractures. Patient will need physical therapy as an outpatient. 3. 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 4. Moderate persistent asthma for which patient is on systemic steroids for long time. 5. Gastroesophageal reflux disease. 6. Leukocytosis secondary to severe sepsis from bowel rupture and peritonitis.
[2016-08-04] MEDS ORDERED: diphenhydrAMINE 50 MG/ML 1 ML VIAL IVP PRN (21:22)
[2016-08-05] MEDS: metroNIDAZOLE-NS PMX 500 MG in SALINE 1 100ML.BAG IVPB SCH ×3 (01:18→16:19)
[2016-08-05] MEDS: HYDROCORTISONE SUCCINATE 100 MG/2 ML VIAL IV SCH ×4 (01:18→23:23)
[2016-08-05] MEDS: SODIUM CHLORIDE 0.9% 1,000 ML with POTASSIUM CHLORIDE 20 MEQ IV SCH ×2 (01:18)
[2016-08-05] MEDS: HYDROmorphone 1 MG/ML 1 ML SYRINGE IV PRN ×7 (01:24→22:01)
[2016-08-05] MEDS: METOCLOPRAMIDE 5 MG/ML 2 ML VIAL IVP PRN ×2 (01:24→22:08)
[2016-08-05 05:37] LABS: Anion Gap 4 mmol/L; Blood Urea Nitrogen 27 mg/dL (7-17); Calcium 6.8 mg/dL (8.4-10.2); Carbon Dioxide 22 mmol/L (22-30); Chloride 112 mmol/L (98-107); Glucose 93 mg/dL (74-99); Magnesium 2.8 mg/dL (1.6-2.3); Non-African American GFR(MDRD) >60 (>60 ml/min/1.73 sqM); Phosphorous 2.8 mg/dL (2.5-4.5); Potassium 4.9 mmol/L (3.5-5.1); Sodium 138 mmol/L (137-145)
[2016-08-05 05:42] LABS: Basophils % (A) 0 %; CHCM 32.9; Eosinophils % (A) 0 %; HCT 28.1 % (34.0-46.0); HGB 9.4 gm/dL (11.4-16.0); Luc # (Auto) 0.11; Luc % (Auto) 1; Lymphocytes # (A) 0.6 k/uL (1.0-4.8); Lymphocytes % (A) 4 %; MCH 34.6 pg (25.0-35.0); MCHC 33.4 g/dL (31.0-37.0); MCV 103.5 fL (80.0-100.0); Macrocytosis Slight; Mean Platelet Volume 8.7; Monocytes # (A) 0.7 k/uL (0-1.0); Monocytes % (A) 4 %; Neutrophils # (A) 14.9 k/uL (1.3-7.7); Neutrophils % (A) 91 %; RBC 2.71 m/uL (3.80-5.40); RDW 14.6 % (11.5-15.5); WBC 16.3 k/uL (3.8-10.6); WBC (Perox) 16.34
[2016-08-05 06:00] LABS: Manual Review Performed
--- NOTE | 2016-08-05 07:34 | XR ---
EXAMINATION TYPE: XR chest 1V DATE OF EXAM: 08/05/2016 6:42 AM HISTORY: Shortness of breath. COMPARISON: 08/04/2016 TECHNIQUE: Single view of the chest is submitted. FINDINGS: Demonstrated are scattered senescent parenchymal change. Endotracheal tube has been removed. NG tube is seen coursing into the stomach. There is patchy density right upper lobe medially. Again noted is prominence of the cardiomediastinal silhouette. Hilar and mediastinal structures are within normal limits. Degenerative changes are seen of the dorsal spine. IMPRESSION: 1. Essentially stable chest. Removal of endotracheal tube as noted.
[2016-08-05] MEDS: IPRATROPIUM-ALBUTEROL 3 ML NEB INHALATION SCH ×4 (08:05→20:15)
[2016-08-05] MEDS: 0.9% NACL WITH KCL 20 MEQ/L 1,000 ML IV SCH (08:08)
[2016-08-05] MEDS: ENOXAPARIN 40 MG/0.4 ML SYRINGE SQ SCH (08:56)
[2016-08-05] MEDS: PANTOPRAZOLE 40 MG/10 ML VIAL IV SCH (08:56)
[2016-08-05 12:42] LABS: Glucose,Whole Blood 93 mg/dL (75-99)
[2016-08-05] MEDS: SODIUM FERRIC GLUCONAT-SUCROSE 125 MG in SODIUM CHLORIDE 0.9% 100 ML IVPB SCH (12:45)
[2016-08-05 14:14] LABS: Free Kappa Lt Chain Qnt, Serum 1.54 mg/dL (0.33 - 1.94); Kappa/Lambda Light Chain Ratio 1.02 (0.26 - 1.65)
--- NOTE | 2016-08-05 15:59 | P.PN ---
Subjective Principal diagnosis: Acute surgical abdomen secondary to perforated diverticulitis 66-year-old female patient, obese, known history of asthma, with known history of compression fracture of the vertebral spine, presented with pain in her lower back radiating to the right upper quadrant and right mid abdominal area. It seems that the pain is more so localized anteriorly and moving posterior to her back. Not the typical compression fracture pain that is encountered usually. No shortness of breath. The pain is somewhat worse with deep breathing however the patient had a CT angios the chest that showed no evidence of any pulmonary embolism. There is some limited patchy infiltrate in the right posterior lobe/right lower lobe along with some pleuritic irregularities posteriorly in the right lung base. Nevertheless, the abnormality was not enough to explain the patient's symptoms. The patient was admitted for for further workup. No nausea. No vomiting. No diarrhea. No bloody bowel movements. No chills. No fever. No falls pain no trauma to the back or side. No overlying skin rashes. No shingles. The x-ray of the abdomen raised the suspicion for a right renal stone measuring 2.4 x 1.5 cm in size. The x-ray of the lumbar spine showed osteophytic compression fracture and it was suspected at T12. T10 fracture was not completely excluded. The patient was seen by orthopedic surgery and general surgery in both signed off. I came to realize that the patient's urinalysis was also normal. There is increased red blood cells and some oxalate crystals seen. The patient is seen again today 07/30/2016 in follow-up on the regular medical floor. She is awake and alert in no acute distress. She still has some complaints of right-sided flank pain. Does have a right non-obstructive renal calculus. Has has known compression fractures. She is being followed by surgical services, orthopedic services and urology. No plans for intervention at this time. Denies any shortness of breath, cough or congestion. Her asthma is inactive and stable. On 07/31/2016 the patient is being seen in follow-up. She is still having the same pain over her back which is rather nonspecific and does not indicate to a specific pathology. Upon further questioning again today, the patient's pain is moving from her mid back and the right flank area and then moving to the left flank and moving up to the left upper posterior chest area. Not related to breathing. Rated to movements. The patient was seen by multiple consultants and there is no clear cause for this pain and we are still suspect in this and may be originating from her thoracolumbar spine. Based on that an MRI of the lumbar spine and the thoracic spine was ordered. The patient was also seen by pain management. On 08/01/2016 I'm seeing this patient in follow-up. She is still in pain in her condition essentially unchanged. The patient had an MRI of the thoracolumbar spine that showed severe compression deformity at the level of T12 with a 1.2 cm displacement of the posterior superior wall causing spinal canal narrowing. There is also compression deformity of the superior endplate of L2 which is likely old and 3 subtotal partially visualized superior endplate compression at the level of T11. The patient will be taken for a steroid injection by pain management. On 08/02/2016, the patient is feeling better. The patient had an epidural shot to her back and it is somewhat controlled the patient's pain. No other new complaints otherwise for now. She is resting comfortably in bed. She is on 20 mg of prednisone that needs to be tapered down further to 10 mg on a daily basis. The events that occurred on 08/03/2016 was noted. The CAT scan findings was also noted. Note that there was found to have free air in her CAT scan of the abdomen suggestive of bowel perforation. At that point the patient was taken to an emergent expiratory laparotomy and the patient was found to have a perforated diverticulitis, perforated viscus and pneumoperitoneum. 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 The patient underwent sigmoid colectomy, descending colostomy, abdominal washout with 6 L, appendectomy, taking down of internal hernia and application of prevena wound VAC system and ELENI drains in the right lower quadrant. Postop the patient was kept intubated on a mechanical ventilator and she was brought to the intensive care unit. At that the patient became slightly hypotensive and she was suspected to IV fluids. She was given more than 3 L of IV fluids and she was placed on 2 mics of levo fed for hemodynamic support. This morning the patient is off pressors. The patient is producing adequate amount of urine output. She was kept on a mechanical ventilator overnight. Her chest x-ray from this morning shows a stable finding with chronic changes and cardiomegaly with low lung volumes. He weaning parameters are appropriate and the patient was given a sedation holiday and following that the patient was given as pertains breathing trial with a pressure support of 5 and a PEEP of 5 and following that the patient was extubated to nasal cannula. NG tube was kept in place. ELENI drains also in place. No complaints otherwise for now. The patient is alert and awake and communicating. She is covered with a combination of Levaquin and Flagyl as broad-spectrum antibiotic coverage. Patient was reevaluated today on 08/05/2016, patient is hemodynamically stable, in no distress. On nasal cannula. Labs were reviewed, WBC count of 16.3 hemoglobin is 9.4. His metabolic profile is relatively normal. Patient tolerated the extubation quite well over the last 24 hours. Discussed her condition with Dr. Garcia, and we will likely transfer the patient to [facility] (formerly [facility] today. Objective - Vital Signs Vital signs: Vital Signs Temp 97.5 F L 08/05/16 08:00 Pulse 80 08/05/16 13:27 Resp 25 H 08/05/16 12:00 BP 123/52 08/05/16 10:00 Pulse Ox 95 08/05/16 12:00 Intake & Output 08/04/16 08/05/16 08/05/16 18:59 06:59 18:59 Intake Total 3000.015 1385 1090 Output Total 800 250 270 Balance 2200.015 1135 820 Weight 97.2 kg 100.6 kg Intake: IV 700 1120 200 Lactated Ringers 1,000 ml 300 820 100 As IV .[facility]K-[facility] Rx#: [id number] Levofloxacin 500Mg-D5w 100 Pmx 500 mg In Dextrose/ Water 1 100ml.bag @ 100 mls/hr IVPB Q24H [facility] Rx#: [id number] Magnesium Sulfate-D5w Pmx 200 1 gm In Dextrose/Water 1 100ml.bag @ 100 mls/hr IVPB Q1H [facility] Rx#: [id number] Sodium Ferric Gluconat- 200 Sucrose 125 mg In Sodium Chloride 0.9% 100 ml @ 100 mls/hr IVPB Q24H [facility] Rx#:[id number] metroNIDAZOLE-NS PMX 500 100 100 100 mg In Saline 1 100ml.bag @ 100 mls/hr IVPB Q8HR [facility] Rx#:[id number] Intake, IV Titration 2300.015 100 800 Amount 0.9% NaCl with KCl 20 Meq 800 /l 1,000 ml @ 100 mls/hr IV .Q10H [facility] Rx#: [id number] Norepinephrin 4 mg-0.9% 37.375 Ns Pmx 4 mg In 250 ml @ Titrate IV .Q0M [facility] Rx#: [id number] Propofol 500 mg In Empty 32.64 Bag 1 bag @ Titrate IV . Q0M [facility] Rx#:[id number] Sodium Chloride 0.9% 1, 420 100 000 ml @ 100 mls/hr IV . Q10H6M [facility] with Potassium Chloride 20 meq Rx#: [id number] Sodium Chloride 0.9% 1, 10 000 ml @ 80 mls/hr IV . [id number] [facility] Rx#:[id number] Sodium Chloride 0.9% 2, 1600 000 ml @ 999 mls/hr IV . Q2H1M [facility] Rx#:[id number] Sodium Ferric Gluconat- 100 Sucrose 125 mg In Sodium Chloride 0.9% 100 ml @ 100 mls/hr IVPB Q24H [facility] Rx#:[id number] metroNIDAZOLE-NS PMX 500 100 mg In Saline 1 100ml.bag @ 100 mls/hr IVPB Q8HR [facility] Rx#:[id number] Oral 40 90 Other 125 Output: Gastric Drainage 200 20 Drainage 150 70 Right Lateral Abdomen 150 70 Urine 450 230 200 Other: Voiding Method Indwelling Catheter Indwelling Catheter Indwelling Catheter # Voids 1 25 ABP, PAP, CO, CI - Last Documented Arterial Blood Pressure 99/86 - Exam Head exam was generally normal. There was no scleral icterus or corneal arcus. Mucous membranes were moist.Neck was supple and without jugular venous distension, thyromegaly, or carotid bruits. Carotids were easily palpable bilaterally. There was no adenopathy. Lung sounds are diminished at bilaterally especially in the lung bases.Cardiac exam revealed the PMI to be normally situated and sized. The rhythm was regular and no extrasystoles were noted during several minutes of auscultation. The first and second heart sounds were normal and physiologic splitting of the second heart sound was noted. There were no murmurs, rubs, clicks, or gallops. Abdomen is soft and the patient has a prevena wound VAC in place. ELENI drain is also in place. Bowel sounds are hypoactive. Colostomy site is viable.Examination of the extremities revealed easily palpable radial, femoral and pedal pulses. There was no cyanosis , clubbing or edema. - Labs CBC & Chem 7: 08/05/16 04:19 08/05/16 04:19 Labs: Abnormal Lab Results - Last 24 Hours (Table) 08/05/16 08/05/16 Range/Units 04:19 04:19 WBC 16.3 H (3.8-10.6) k/uL RBC 2.71 L (3.80-5.40) m/uL Hgb 9.4 L (11.4-16.0) gm/dL Hct 28.1 L (34.0-46.0) % MCV 103.5 H (80.0-100.0) fL Neutrophils # 14.9 H (1.3-7.7) k/uL Lymphocytes # 0.6 L (1.0-4.8) k/uL Chloride 112 H (98-107) mmol/L BUN 27 H (7-17) mg/dL Calcium 6.8 L (8.4-10.2) mg/dL Magnesium 2.8 H (1.6-2.3) mg/dL Assessment and Plan Plan: 1 acute pneumoperitoneum secondary to a perforated diverticulitis. Patient is status post expiratory laparotomy, sigmoid colectomy, descending colostomy, abdominal washout with 6 L of fluids, appendectomy, taken down of internal hernia [place] application of a wound VAC system and placement of ELENI drain. Patient is postop day # 2 2 post abdominal surgery respiratory failure, weaned off the mechanical ventilator and extubated today without any major difficulties. 3 pain involving the right kidney/flank/lower thoracic/upper lumbar area. After an extensive workup, the pain seems to be originating from a severe compression deformity of T12 and compression fractures of the level of L2 and L3. The patient was seen a steroid injection today, likely epidural 4 bronchial asthma or chronic 4 chronic back pain 5 diverticulosis 6 obesity. 7 urinary incontinence with stress urinary type. Recommendation: Patient tolerated extubation well over the last 24 hours, patient is to be transferred out of the ICU to a monitor bed, will continue to follow. Time with Patient: Less than 30
--- NOTE | 2016-08-05 16:05 | P.PN ---
Progress Note - Text Patient is a very pleasant and well known 66-year-old female who is seen and examined at bedside for further evaluation for significant ongoing thoracic back pain. She's been previously seen and evaluated in our office in March 2015. Patient sustained a fall approximately 3 weeks ago and presented to [facility] for further evaluation. At that time a TLSO brace was ordered and fitted for the patient. She remained in the hospital for approximately 4 days before being discharged to [facility] rehabilitation [facility]. She states she spent 5 days and rehab without significant relief of her symptoms. She was subsequently discharged. Since that time her back pain had been uncontrollable. She presented to [facility] for evaluation. Since being admitted, she has had an injection at L2 performed by pain management with mild relief of her symptoms. She has had an MRI of both the thoracic and lumbar spine. She was found to have an acute T8 compression fracture deformity possible metastatic. An MRI with contrast and thoracic spine was ordered. Dr. Pang in oncology was consulted for further evaluation and workup for metastatic disease. CT the abdomen and pelvis as ordered. Following results of the computed tomography scan, she is found to have free air and a ruptured sigmoid colon. She underwent surgical intervention with Dr. Herndon over the weekend. Since that time she states she has been having significant improvement in her thoracic back pain. She is currently in the ICU receiving a breathing treatment. She has an NG tube in place. She continues denies specific lower extremity radiculopathy or weakness bilaterally. She does have some abdominal discomfort following surgery, but does feel she's had improvement in her pain. Physical exam: Patient is awake, alert, and oriented 3 Vital signs stable Good chest excursion with deep inspiration and expiration Abdomen tender following surgery; NG tube in place Examination of thoracic and lumbar spine not performed as patient remains lying on her back status post abdominal surgery Dorsiflexion, plantarflexion, and extensor hallucis longus positive sustained bilaterally Lower extremity strength 5/5 bilaterally No lower extremity hyperreflexia bilaterally No signs or symptoms of DVT; no calf pain No pain with internal and external rotation of the hips bilaterally Neurovascularly intact Studies: CT the abdomen and pelvis taken on 08/03/2016: New pneumoperitoneum with inflammatory change consistent with perforated acute colitis suspected diverticulitis; multiple compression fracture deformities redemonstrated including acute fracture at T7 and T8 cannot be excluded; intradural extramedullary air noted accounting for abnormal MRI signal and mass effect MRI of the thoracic spine taken on 08/01/2016: T8 signal abnormality related to metastasis; Absent signal posterior to the thecal sac at T9, T10, and T11; T12 spinal canal narrowing due to posterior wall displacement of vertebral body compression fracture; compression fracture deformities at T7, T8, T10; posterior spinal canal hemorrhage may be present MRI of the lumbar spine taken on 07/31/2016: T12 severe compression fracture deformity with 1.2 cm displacement to the posterior wall causing spinal canal narrowing; L2 superior endplate compression fracture deformity is most likely chronic; T11 subtle partially visualize superior endplate compression X-rays lumbar spine: Osteoporotic compression fractures suspected; compression fracture deformities at T11 superior endplate compression fracture deformity with approximately 15% height loss, T12 with approximately 75% height loss and L2 approximately 20% height loss superiorly CT of the chest: Multiple compression fracture deformities appeared to be at T7 with approximatly 75% height loss, T8 with approximately 20% height loss, T10 with approximately 75% height loss, T11 with approximately 15% height loss and T12 approximately 80% height loss of indeterminate age that are not reported in the impression; no acute pulmonary embolism; mild compressive atelectasis Chest x-ray: Large right renal stone of the mid kidney measuring approximately 2.4 cm x 1.5 cm Assessment: Status post abdominal surgery to repair ruptured sigmoid colon with evidence of free air Status post fall Intractable thoracic and lumbar back pain Acute T8 compression fracture deformity status post fall; possible metastatic Absent signal posterior to the thecal sac at T9, T10, and T11 Multiple compression fracture deformities at T7, T10, T11, T12, and L2 that appear to be stable and chronic in nature Failure of outpatient treatment Dehydration Large right renal stone with right far lateral mid and lower thoracic pain Plan: 1. We continue to feel her multiple compression fractures at T7, T10, T11, T12 , and L2 appear to be chronic in nature and appear to be stable. There are no significant changes found within these multiple compression fractures. According to our imaging taken at [facility], the T8 compression fracture appears to be acute as compared to previous study taken on 03/13/2015. Following her recent surgery for her ruptured sigmoid colon, she has been having some improvement of her pain. At this time not currently complaining for any further invasive treatment in regards to her thoracic spine. We'll wait to see her in outpatient setting for further evaluation after she is given some time to recover from her abdominal surgery. An Exos LSO brace has been ordered and delivered to the patient. She may wear this brace while sitting up to greater than 45, while doing activities, and while ambulating. She does not have to wear the brace while lying in bed or while bathing. She should avoid excessive bending, twisting, lifting; no lifting greater than 10 pounds. She does not have to wear this brace if general surgery feels this would inhibit her ability to recover from abdominal surgical standpoint. We will plan to have her follow-up in outpatient setting in approximately 2-3 weeks for further evaluation. 2. Patient will continue to follow with Dr. Herndon in general surgery for further treatment evaluation following surgical intervention to repair ruptured sigmoid colon with evidence of free air 3. She will continue with evaluation by Dr. Pang in oncology for further evaluation following MRI report indicating T8 metastatic disease 4. Dr. Li in medicine to continue following the patient; may recommend abdominal CT 5. Continue pain control 6. I have discussed this patient in detail with Dr. Titi Salazar and he agrees with this plan
[2016-08-05] MEDS: LEVOFLOXACIN 500MG-D5W PMX 500 MG in DEXTROSE/WATER 1 100ML.BAG IVPB SCH (16:53)
--- NOTE | 2016-08-05 17:06 | P.PN ---
Subjective Principal diagnosis: Perforated sigmoid diverticulitis with appendicitis The patient is a 66-year-old female who is status post exploratory laparotomy with sigmoid colectomy and descending colostomy, postoperative day #2. Her pain of her abdomen is moderately improved. She is comfortable in the intensive care unit. No reports of fevers or chills. She complains of dry mouth. Nasogastric tube still present with bilious effluent. No reports of moderate bowel movement through her ostomy. Objective - Vital Signs Vital signs: Vital Signs Temp 97.5 F L 08/05/16 08:00 Pulse 80 08/05/16 13:27 Resp 25 H 08/05/16 12:00 BP 123/52 08/05/16 10:00 Pulse Ox 95 08/05/16 12:00 Intake & Output 08/04/16 08/05/16 08/05/16 18:59 06:59 18:59 Intake Total 3000.015 1385 1090 Output Total 800 250 270 Balance 2200.015 1135 820 Weight 97.2 kg 100.6 kg Intake: IV 700 1120 200 Lactated Ringers 1,000 ml 300 820 100 As IV .[facility] Rx#: [id number] Levofloxacin 500Mg-D5w 100 Pmx 500 mg In Dextrose/ Water 1 100ml.bag @ 100 mls/hr IVPB Q24H [facility] Rx#: [id number] Magnesium Sulfate-D5w Pmx 200 1 gm In Dextrose/Water 1 100ml.bag @ 100 mls/hr IVPB Q1H [facility] Rx#: [id number] Sodium Ferric Gluconat- 200 Sucrose 125 mg In Sodium Chloride 0.9% 100 ml @ 100 mls/hr IVPB Q24H [facility] Rx#:[id number] metroNIDAZOLE-NS PMX 500 100 100 100 mg In Saline 1 100ml.bag @ 100 mls/hr IVPB Q8HR [facility] Rx#:[id number] Intake, IV Titration 2300.015 100 800 Amount 0.9% NaCl with KCl 20 Meq 800 /l 1,000 ml @ 100 mls/hr IV .Q10H [facility] Rx#: [id number] Norepinephrin 4 mg-0.9% 37.375 Ns Pmx 4 mg In 250 ml @ Titrate IV .Q0M [facility] Rx#: [id number] Propofol 500 mg In Empty 32.64 Bag 1 bag @ Titrate IV . Q0M [facility] Rx#:[id number] Sodium Chloride 0.9% 1, 420 100 000 ml @ 100 mls/hr IV . Q10H6M [facility] with Potassium Chloride 20 meq Rx#: [id number] Sodium Chloride 0.9% 1, 10 000 ml @ 80 mls/hr IV . [id number] [facility] Rx#:[id number] Sodium Chloride 0.9% 2, 1600 000 ml @ 999 mls/hr IV . Q2H1M [facility] Rx#:[id number] Sodium Ferric Gluconat- 100 Sucrose 125 mg In Sodium Chloride 0.9% 100 ml @ 100 mls/hr IVPB Q24H [facility] Rx#:[id number] metroNIDAZOLE-NS PMX 500 100 mg In Saline 1 100ml.bag @ 100 mls/hr IVPB Q8HR [facility] Rx#:[id number] Oral 40 90 Other 125 Output: Gastric Drainage 200 20 Drainage 150 70 Right Lateral Abdomen 150 70 Urine 450 230 200 Other: Voiding Method Indwelling Catheter Indwelling Catheter Indwelling Catheter # Voids 1 25 ABP, PAP, CO, CI - Last Documented Arterial Blood Pressure 99/86 - Exam GENERAL: Well developed and in no acute distress. Pleasant. HEENT: No sclera icterus. Extraocular movements grossly intact. Moist buccal mucosa. Head is atraumatic, normocephalic. Hears conversational speech. No nasal drainage. Nasogastric tube along the left nares patent with dark brown effluent. NECK: Supple without lymphadenopathy. No JV distention. CHEST: Non-labored respirations and equal bilateral excursions. CARDIOVASCULAR: Tachycardic. Palpable 2+ radial pulses. ABDOMEN: Soft. Nondistended. Minimal edy-incisional tenderness. Ostomy is pink patent with minimal gas within Coloplast. Prevena wound VAC clean dry and intact without air leaks. No signs of cellulitis along midline incision. ELENI serosanguineous. : Urine clear and yellow. MUSCULOSKELETAL: No clubbing, cyanosis or edema. NEUROLOGIC: No focal or lateralizing signs. PSYCH: Appropriate affect. Alert and oriented to person, place and time. - Labs CBC & Chem 7: 08/05/16 04:19 08/05/16 04:19 Labs: Abnormal Lab Results - Last 24 Hours (Table) 05/01/17 05/01/17 Range/Units 04:19 04:19 WBC 16.3 H (3.8-10.6) k/uL RBC 2.71 L (3.80-5.40) m/uL Hgb 9.4 L (11.4-16.0) gm/dL Hct 28.1 L (34.0-46.0) % MCV 103.5 H (80.0-100.0) fL Neutrophils # 14.9 H (1.3-7.7) k/uL Lymphocytes # 0.6 L (1.0-4.8) k/uL Chloride 112 H (98-107) mmol/L BUN 27 H (7-17) mg/dL Calcium 6.8 L (8.4-10.2) mg/dL Magnesium 2.8 H (1.6-2.3) mg/dL Assessment and Plan (1) Perforated sigmoid colon Status: Acute (2) Perforation of sigmoid colon due to diverticulitis Status: Acute (3) Leukocytosis Status: Acute (4) COPD, moderate Status: Acute (5) Current chronic use of systemic steroids Status: Acute (6) Rheumatoid arthritis Status: Acute (7) Thoracic back pain Status: Acute (8) Thoracic compression fracture Status: Acute (9) Compression deformity of vertebra Status: Acute (10) Reflux esophagitis Status: Acute (11) Hiatal hernia with GERD Status: Acute (12) Appendicitis Status: Acute Plan: 1. May have ice chips and popsicles for dry mouth. 2. Liquid diet pending function of colostomy. 3. Colostomy nurse for education and teaching. 4. Recommend correction of calcium deficiency. 5. Also recommend consultation to infectious disease for peritonitis from perforated viscus. 6. Steroid dose is being tapered from 100 mg every 8 to 50mg every 8hrs. 7. Recommend transfer to surgical floor as she is a high risk surgical patient with telemetry.
--- NOTE | 2016-08-05 17:50 | PN ---
Patient is admitted with compression fracture. Abdominal pain ( ) secondary to compression fracture, but patient was later found to have sigmoid colon rupture and patient underwent colectomy with colostomy and peritoneal lavage. Patient is on antibiotics. Patient still has an NG tube, not draining much. Surgery ( ) to evaluate today. REVIEW OF SYSTEMS: CARDIOVASCULAR: No chest pain, no orthopnea, no PND, no palpitations. PULMONARY: Denied any shortness of breath. No cough or hemoptysis. GASTROINTESTINAL: Soreness and did not pass gas yet. NEUROLOGIC: No headaches, no weakness, no numbness. Medications were reviewed. PHYSICAL EXAMINATION: VITAL SIGNS: Temperature 98.5, pulse of 80, respiratory rate of 25, blood pressure 123/52. Saturating at 95% on 2 L of oxygen by nasal cannula. GENERAL: The patient is alert and oriented x3, not in any acute distress. Well developed, well nourished. HEENT: Pupils are round and equally reacting to light. EOMI. No scleral icterus. No conjunctival pallor. Normocephalic, atraumatic. No pharyngeal erythema. No thyromegaly. CARDIOVASCULAR: S1 and S2 present. No murmurs, rubs, or gallops. PULMONARY: Chest is clear to auscultation, no wheezing or crackles. ABDOMEN: Patient has sluggish or absent bowel sounds. Surgical site area is clean. MUSCULOSKELETAL: No joint swelling or deformity. EXTREMITIES: No cyanosis, clubbing, or pedal edema. NEUROLOGICAL: Gross neurological examination did not reveal any focal deficits. SKIN: No rashes. LABORATORY DATA: Basic metabolic profile essentially within normal limits. ASSESSMENT AND PLAN: 1. Perforated bowel with sigmoid colitis. Continue with systemic steroids, inhalational treatments. Continue with IV fluids. 2. Back pain and compression fractures. Physical therapy as an outpatient. 3. 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 4. Moderate persistent asthma; not an issue at this point of time. 5. Gastroesophageal reflux disease. 6. Hypovolemic hyponatremia, improved with IV fluids.
[2016-08-05 18:05] LABS: Glucose,Whole Blood 121 mg/dL (75-99)
[2016-08-05 23:57] LABS: Glucose,Whole Blood 107 mg/dL (75-99)
[2016-08-06] MEDS: 0.9% NACL WITH KCL 20 MEQ/L 1,000 ML IV SCH ×2 (02:11→03:55)
[2016-08-06] MEDS: metroNIDAZOLE-NS PMX 500 MG in SALINE 1 100ML.BAG IVPB SCH ×4 (02:45→23:28)
[2016-08-06] MEDS: HYDROmorphone 1 MG/ML 1 ML SYRINGE IV PRN ×7 (03:44→23:29)
[2016-08-06 05:52] LABS: Glucose,Whole Blood 122 mg/dL (75-99)
[2016-08-06 07:41] LABS: Basophils % (A) 0 %; CH 33.5; CHCM 31.9; Eosinophils % (A) 0 %; HCT 28.5 % (34.0-46.0); HDW 3.11; HGB 9.1 gm/dL (11.4-16.0); Hypochromasia Slight; Luc # (Auto) 0.09; Luc % (Auto) 1; Lymphocytes # (A) 0.3 k/uL (1.0-4.8); Lymphocytes % (A) 2 %; MCH 33.6 pg (25.0-35.0); MCHC 31.9 g/dL (31.0-37.0); MCV 105.3 fL (80.0-100.0); Macrocytosis Moderate; Mean Platelet Volume 7.5; Monocytes # (A) 0.4 k/uL (0-1.0); Monocytes % (A) 3 %; Neutrophils # (A) 13.3 k/uL (1.3-7.7); Neutrophils % (A) 94 %; RBC 2.71 m/uL (3.80-5.40); RDW 14.8 % (11.5-15.5); WBC 14.2 k/uL (3.8-10.6); WBC (Perox) 14.04
[2016-08-06] MEDS: HYDROCORTISONE SUCCINATE 100 MG/2 ML VIAL IV SCH ×3 (07:42→23:28)
[2016-08-06] MEDS: ENOXAPARIN 40 MG/0.4 ML SYRINGE SQ SCH (07:42)
[2016-08-06] MEDS: PANTOPRAZOLE 40 MG/10 ML VIAL IV SCH (07:42)
[2016-08-06 08:00] LABS: Anion Gap 7 mmol/L; Blood Urea Nitrogen 25 mg/dL (7-17); Calcium 6.9 mg/dL (8.4-10.2); Carbon Dioxide 19 mmol/L (22-30); Chloride 117 mmol/L (98-107); Glucose 105 mg/dL (74-99); Magnesium 2.7 mg/dL (1.6-2.3); Non-African American GFR(MDRD) >60 (>60 ml/min/1.73 sqM); Phosphorous 1.8 mg/dL (2.5-4.5); Potassium 4.3 mmol/L (3.5-5.1); Sodium 143 mmol/L (137-145)
[2016-08-06] MEDS: IPRATROPIUM-ALBUTEROL 3 ML NEB INHALATION SCH ×4 (08:42→18:52)
[2016-08-06 12:16] LABS: Glucose,Whole Blood 115 mg/dL (75-99)
--- NOTE | 2016-08-06 15:13 | P.PN ---
Subjective 66-year-old female patient, obese, known history of asthma, with known history of compression fracture of the vertebral spine, presented with pain in her lower back radiating to the right upper quadrant and right mid abdominal area. It seems that the pain is more so localized anteriorly and moving posterior to her back. Not the typical compression fracture pain that is encountered usually. No shortness of breath. The pain is somewhat worse with deep breathing however the patient had a CT angios the chest that showed no evidence of any pulmonary embolism. There is some limited patchy infiltrate in the right posterior lobe/right lower lobe along with some pleuritic irregularities posteriorly in the right lung base. Nevertheless, the abnormality was not enough to explain the patient's symptoms. The patient was admitted for for further workup. No nausea. No vomiting. No diarrhea. No bloody bowel movements. No chills. No fever. No falls pain no trauma to the back or side. No overlying skin rashes. No shingles. The x-ray of the abdomen raised the suspicion for a right renal stone measuring 2.4 x 1.5 cm in size. The x-ray of the lumbar spine showed osteophytic compression fracture and it was suspected at T12. T10 fracture was not completely excluded. The patient was seen by orthopedic surgery and general surgery in both signed off. I came to realize that the patient's urinalysis was also normal. There is increased red blood cells and some oxalate crystals seen. The patient is seen again today 07/30/2016 in follow-up on the regular medical floor. She is awake and alert in no acute distress. She still has some complaints of right-sided flank pain. Does have a right non-obstructive renal calculus. Has has known compression fractures. She is being followed by surgical services, orthopedic services and urology. No plans for intervention at this time. Denies any shortness of breath, cough or congestion. Her asthma is inactive and stable. On 07/31/2016 the patient is being seen in follow-up. She is still having the same pain over her back which is rather nonspecific and does not indicate to a specific pathology. Upon further questioning again today, the patient's pain is moving from her mid back and the right flank area and then moving to the left flank and moving up to the left upper posterior chest area. Not related to breathing. Rated to movements. The patient was seen by multiple consultants and there is no clear cause for this pain and we are still suspect in this and may be originating from her thoracolumbar spine. Based on that an MRI of the lumbar spine and the thoracic spine was ordered. The patient was also seen by pain management. On 08/01/2016 I'm seeing this patient in follow-up. She is still in pain in her condition essentially unchanged. The patient had an MRI of the thoracolumbar spine that showed severe compression deformity at the level of T12 with a 1.2 cm displacement of the posterior superior wall causing spinal canal narrowing. There is also compression deformity of the superior endplate of L2 which is likely old and 3 subtotal partially visualized superior endplate compression at the level of T11. The patient will be taken for a steroid injection by pain management. On 08/02/2016, the patient is feeling better. The patient had an epidural shot to her back and it is somewhat controlled the patient's pain. No other new complaints otherwise for now. She is resting comfortably in bed. She is on 20 mg of prednisone that needs to be tapered down further to 10 mg on a daily basis. The events that occurred on 08/03/2016 was noted. The CAT scan findings was also noted. Note that there was found to have free air in her CAT scan of the abdomen suggestive of bowel perforation. At that point the patient was taken to an emergent expiratory laparotomy and the patient was found to have a perforated diverticulitis, perforated viscus and pneumoperitoneum. 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 The patient underwent sigmoid colectomy, descending colostomy, abdominal washout with 6 L, appendectomy, taking down of internal hernia and application of prevena wound VAC system and ELENI drains in the right lower quadrant. Postop the patient was kept intubated on a mechanical ventilator and she was brought to the intensive care unit. At that the patient became slightly hypotensive and she was suspected to IV fluids. She was given more than 3 L of IV fluids and she was placed on 2 mics of levo fed for hemodynamic support. This morning the patient is off pressors. The patient is producing adequate amount of urine output. She was kept on a mechanical ventilator overnight. Her chest x-ray from this morning shows a stable finding with chronic changes and cardiomegaly with low lung volumes. He weaning parameters are appropriate and the patient was given a sedation holiday and following that the patient was given as pertains breathing trial with a pressure support of 5 and a PEEP of 5 and following that the patient was extubated to nasal cannula. NG tube was kept in place. ELENI drains also in place. No complaints otherwise for now. The patient is alert and awake and communicating. She is covered with a combination of Levaquin and Flagyl as broad-spectrum antibiotic coverage. Patient was reevaluated today on 08/05/2016, patient is hemodynamically stable, in no distress. On nasal cannula. Labs were reviewed, WBC count of 16.3 hemoglobin is 9.4. His metabolic profile is relatively normal. Patient tolerated the extubation quite well over the last 24 hours. Discussed her condition with Dr. Garcia, and we will likely transfer the patient to [facility] today. The patient is seen again today 08/06/2016 on the surgical floor. She is currently sitting up in the chair at the bedside. She is awake and alert in no acute distress. Her pain is well controlled. Nasogastric tube remains in place. Her asthma is currently inactive and stable. Objective - Vital Signs Vital signs: Vital Signs Temp 97.7 F 08/06/16 07:28 Pulse 80 08/06/16 13:20 Resp 16 08/06/16 07:28 BP 142/67 08/06/16 07:28 Pulse Ox 92 L 08/06/16 07:28 Intake & Output 08/05/16 08/06/16 08/06/16 18:59 06:59 18:59 Intake Total 1590 1300 Output Total 510 710 Balance 1080 590 Weight 100.6 kg Intake: IV 300 200 Lactated Ringers 1,000 ml 100 As IV .[facility] Rx#: [id number] Levofloxacin 500Mg-D5w 100 Pmx 500 mg In Dextrose/ Water 1 100ml.bag @ 100 mls/hr IVPB Q24H REPLACED BY [facility] Rx#: [id number] metroNIDAZOLE-NS PMX 500 200 100 mg In Saline 1 100ml.bag @ 100 mls/hr IVPB Q8HR REPLACED BY [facility] Rx#:[id number] Intake, IV Titration 1200 1100 Amount 0.9% NaCl with KCl 20 Meq 1200 700 /l 1,000 ml @ 100 mls/hr IV .Q10H REPLACED BY [facility] Rx#: [id number] Sodium Chloride 0.9% 1, 400 000 ml @ 100 mls/hr IV . Q10H6M [facility] with Potassium Chloride 20 meq Rx#: [id number] Oral 90 Output: Gastric Drainage 150 Drainage 105 30 Right Lateral Abdomen 105 30 Urine 405 530 Other: Voiding Method Indwelling Catheter Indwelling Catheter Indwelling Catheter # Voids 1 ABP, PAP, CO, CI - Last Documented Arterial Blood Pressure 99/86 - Exam Head exam was generally normal. There was no scleral icterus or corneal arcus. Mucous membranes were moist.Neck was supple and without jugular venous distension, thyromegaly, or carotid bruits. Carotids were easily palpable bilaterally. There was no adenopathy. Lung sounds are diminished at bilaterally especially in the lung bases.Cardiac exam revealed the PMI to be normally situated and sized. The rhythm was regular and no extrasystoles were noted during several minutes of auscultation. The first and second heart sounds were normal and physiologic splitting of the second heart sound was noted. There were no murmurs, rubs, clicks, or gallops. Abdomen is soft and the patient has a prevena wound VAC in place. ELENI drain is also in place. Bowel sounds are hypoactive. Colostomy site is viable.Examination of the extremities revealed easily palpable radial, femoral and pedal pulses. There was no cyanosis , clubbing or edema. - Labs CBC & Chem 7: 08/06/16 07:04 08/06/16 07:04 Labs: Abnormal Lab Results - Last 24 Hours (Table) 08/05/16 08/05/16 08/06/16 Range/Units 18:02 23:53 05:50 WBC (3.8-10.6) k/uL RBC (3.80-5.40) m/uL Hgb (11.4-16.0) gm/dL Hct (34.0-46.0) % MCV (80.0-100.0) fL Neutrophils # (1.3-7.7) k/uL Lymphocytes # (1.0-4.8) k/uL Chloride (98-107) mmol/L Carbon Dioxide (22-30) mmol/L BUN (7-17) mg/dL Glucose (74-99) mg/dL POC Glucose (mg/dL) 121 H 107 H 122 H (75-99) mg/dL Calcium (8.4-10.2) mg/dL Phosphorus (2.5-4.5) mg/dL Magnesium (1.6-2.3) mg/dL 08/06/16 08/06/16 08/06/16 Range/Units 07:04 07:04 12:13 WBC 14.2 H (3.8-10.6) k/uL RBC 2.71 L (3.80-5.40) m/uL Hgb 9.1 L (11.4-16.0) gm/dL Hct 28.5 L (34.0-46.0) % MCV 105.3 H (80.0-100.0) fL Neutrophils # 13.3 H (1.3-7.7) k/uL Lymphocytes # 0.3 L (1.0-4.8) k/uL Chloride 117 H (98-107) mmol/L Carbon Dioxide 19 L (22-30) mmol/L BUN 25 H (7-17) mg/dL Glucose 105 H (74-99) mg/dL POC Glucose (mg/dL) 115 H (75-99) mg/dL Calcium 6.9 L (8.4-10.2) mg/dL Phosphorus 1.8 L (2.5-4.5) mg/dL Magnesium 2.7 H (1.6-2.3) mg/dL Assessment and Plan Plan: Impression: 1 acute pneumoperitoneum secondary to a perforated diverticulitis. Patient is status post expiratory laparotomy, sigmoid colectomy, descending colostomy, abdominal washout with 6 L of fluids, appendectomy, taken down of internal hernia [place] application of a wound VAC system and placement of ELENI drain. 2 post abdominal surgery respiratory failure, weaned off the mechanical ventilator and extubated today without any major difficulties. 3 pain involving the right kidney/flank/lower thoracic/upper lumbar area. After an extensive workup, the pain seems to be originating from a severe compression deformity of T12 and compression fractures of the level of L2 and L3. 4 bronchial asthma or chronic 4 chronic back pain 5 diverticulosis 6 obesity. 7 urinary incontinence with stress urinary type. Plan: The patient was seen and evaluated by Dr. Anderson. Stable from the pulmonary and critical care standpoint. We will add incentive spirometer and encourage increased cough and deep breathing exercises. We'll continue with her current medications. We will increase her activity as tolerated. We'll continue to follow.
[2016-08-06] MEDS: SODIUM FERRIC GLUCONAT-SUCROSE 125 MG in SODIUM CHLORIDE 0.9% 100 ML IVPB SCH (15:19)
[2016-08-06] MEDS: SODIUM CHLORIDE 0.45% 1,000 ML IV SCH (15:19)
--- NOTE | 2016-08-06 15:55 | PN ---
Patient is clinically doing well. Patient's NG tube is clamped at this point of time. Considering her hyperchloremia and hyponatremia, I will switch her to 75 mL of half normal saline. NG tube is being clamped at this point. Patient does have bowel sounds; did not pass gas; did not move her bowels yet. REVIEW OF SYSTEMS: CARDIOVASCULAR: No chest pain, no orthopnea, no PND, no palpitations. PULMONARY: Denied any shortness of breath. No cough or hemoptysis. GASTROINTESTINAL: As mentioned above. NEUROLOGIC: No headaches, no weakness, no numbness. Medications were reviewed. PHYSICAL EXAMINATION: VITAL SIGNS: Temperature 97.7, pulse of 80, respiratory rate of 16. Blood pressure is 142/67. Saturating at 90% on 2 L of oxygen by nasal cannula. GENERAL: The patient is alert and oriented x3, not in any acute distress. Well developed, well nourished. HEENT: Pupils are round and equally reacting to light. EOMI. No scleral icterus. No conjunctival pallor. Normocephalic, atraumatic. No pharyngeal erythema. No thyromegaly. CARDIOVASCULAR: S1 and S2 present. No murmurs, rubs, or gallops. PULMONARY: Chest is clear to auscultation, no wheezing or crackles. ABDOMEN: Surgical site area is clean. Patient does have bowel sounds. No rebound or rigidity. MUSCULOSKELETAL: No joint swelling or deformity. EXTREMITIES: No cyanosis, clubbing, or pedal edema. NEUROLOGICAL: Gross neurological examination did not reveal any focal deficits. SKIN: No rashes. LABORATORY DATA: CBC, CMP are abnormal for elevated chloride of 112, sodium of 123. WBC count is 14,200, better compared to a couple of days ago. ASSESSMENT AND PLAN: 1. Perforated viscus with peritonitis and sigmoid colitis. Continue with antibiotics. Continue supportive care. 2. Back pain with compression fractures. Physical therapy as an outpatient. 3. Severe osteoporosis with prolonged systemic steroids. 4. Moderate persistent asthma. 5. Gastroesophageal reflux disease. 6. Hyponatremia; hypovolemic hyponatremia; resolved at this point of time. 7. Hyperchloremia due to IV fluids. Management as mentioned above. 8. Leukocytosis secondary to peritonitis. Patient will be continued on antibiotics. Will ambulate the patient. Appreciate surgery recommendations.
--- NOTE | 2016-08-06 16:51 | P.PN ---
Subjective 66-year-old female being seen with the attending. Currently sitting up in a chair. Appears in no acute distress. Nasogastric tube in place. stooling from the ostomy noted.Perforated sigmoid diverticulitis with appendicitis The patient is a 66-year-old female who is status post exploratory laparotomy with sigmoid colectomy and descending colostomy, postoperative day #3. For a perforated sigmoid diverticulitis with appendicitis Her pain of her abdomen is moderately improved. . No reports of fevers or chills. . moderate bowel movement through her ostomy. Objective - Vital Signs Vital signs: Vital Signs Temp 97.7 F 08/06/16 07:28 Pulse 80 08/06/16 15:23 Resp 16 08/06/16 07:28 BP 142/67 08/06/16 07:28 Pulse Ox 92 L 08/06/16 07:28 Intake & Output 08/05/16 08/06/16 08/06/16 18:59 06:59 18:59 Intake Total 1590 1300 Output Total 510 710 Balance 1080 590 Weight 100.6 kg Intake: IV 300 200 Lactated Ringers 1,000 ml 100 As IV .[facility] Rx#: [id number] Levofloxacin 500Mg-D5w 100 Pmx 500 mg In Dextrose/ Water 1 100ml.bag @ 100 mls/hr IVPB Q24H [facility] Rx#: [id number] metroNIDAZOLE-NS PMX 500 200 100 mg In Saline 1 100ml.bag @ 100 mls/hr IVPB Q8HR [facility] Rx#:[id number] Intake, IV Titration 1200 1100 Amount 0.9% NaCl with KCl 20 Meq 1200 700 /l 1,000 ml @ 100 mls/hr IV .Q10H [facility] Rx#: [id number] Sodium Chloride 0.9% 1, 400 000 ml @ 100 mls/hr IV . Q10H6M [facility] with Potassium Chloride 20 meq Rx#: [id number] Oral 90 Output: Gastric Drainage 150 Drainage 105 30 Right Lateral Abdomen 105 30 Urine 405 530 Other: Voiding Method Indwelling Catheter Indwelling Catheter Indwelling Catheter # Voids 1 ABP, PAP, CO, CI - Last Documented Arterial Blood Pressure 99/86 - Exam Physical exam 66-year-old female sitting up appears in no acute distress Lungs essentially clear adequate air movement Heart S1-S2 audible regular Abdomen ostomy moderate amount stooling noted stoma pink indwelling Jeter catheter in place nasal gastric tube in place Extremities trace pedal edema - Labs CBC & Chem 7: 08/06/16 07:04 08/06/16 07:04 Labs: Abnormal Lab Results - Last 24 Hours (Table) 08/03/16 08/05/16 08/05/16 Range/Units 07:49 18:02 23:53 WBC (3.8-10.6) k/uL RBC (3.80-5.40) m/uL Hgb (11.4-16.0) gm/dL Hct (34.0-46.0) % MCV (80.0-100.0) fL Neutrophils # (1.3-7.7) k/uL Lymphocytes # (1.0-4.8) k/uL Chloride (98-107) mmol/L Carbon Dioxide (22-30) mmol/L BUN (7-17) mg/dL Glucose (74-99) mg/dL POC Glucose (mg/dL) 121 H 107 H (75-99) mg/dL Calcium (8.4-10.2) mg/dL Phosphorus (2.5-4.5) mg/dL Magnesium (1.6-2.3) mg/dL Total Protein (PEP) 5.7 L (6.2-8.2) g/dL Albumin (PEP) 2.84 L (3.80-4.90) g/dL Bxasf-7-Sjpidryde 0.42 H (0.10-0.40) g/dL Lyrlt-7-Omzdjeeae 1.03 H (0.60-1.00) g/dL Gamma Globulins 0.51 L (0.70-1.50) g/dL 08/06/16 08/06/16 08/06/16 Range/Units 05:50 07:04 07:04 WBC 14.2 H (3.8-10.6) k/uL RBC 2.71 L (3.80-5.40) m/uL Hgb 9.1 L (11.4-16.0) gm/dL Hct 28.5 L (34.0-46.0) % MCV 105.3 H (80.0-100.0) fL Neutrophils # 13.3 H (1.3-7.7) k/uL Lymphocytes # 0.3 L (1.0-4.8) k/uL Chloride 117 H (98-107) mmol/L Carbon Dioxide 19 L (22-30) mmol/L BUN 25 H (7-17) mg/dL Glucose 105 H (74-99) mg/dL POC Glucose (mg/dL) 122 H (75-99) mg/dL Calcium 6.9 L (8.4-10.2) mg/dL Phosphorus 1.8 L (2.5-4.5) mg/dL Magnesium 2.7 H (1.6-2.3) mg/dL Total Protein (PEP) (6.2-8.2) g/dL Albumin (PEP) (3.80-4.90) g/dL Rbaxt-0-Tsokunika (0.10-0.40) g/dL Wgthk-0-Ewjvyzitp (0.60-1.00) g/dL Gamma Globulins (0.70-1.50) g/dL 08/06/16 Range/Units 12:13 WBC (3.8-10.6) k/uL RBC (3.80-5.40) m/uL Hgb (11.4-16.0) gm/dL Hct (34.0-46.0) % MCV (80.0-100.0) fL Neutrophils # (1.3-7.7) k/uL Lymphocytes # (1.0-4.8) k/uL Chloride (98-107) mmol/L Carbon Dioxide (22-30) mmol/L BUN (7-17) mg/dL Glucose (74-99) mg/dL POC Glucose (mg/dL) 115 H (75-99) mg/dL Calcium (8.4-10.2) mg/dL Phosphorus (2.5-4.5) mg/dL Magnesium (1.6-2.3) mg/dL Total Protein (PEP) (6.2-8.2) g/dL Albumin (PEP) (3.80-4.90) g/dL Srufp-2-Yfkbsgbmb (0.10-0.40) g/dL Coyly-7-Mjxghcndt (0.60-1.00) g/dL Gamma Globulins (0.70-1.50) g/dL Assessment and Plan Plan: Impression Severe iron deficiency anemia Present on admission abdominal pain suspect due to perforated sigmoid diverticulitis with acute appendicitis Status post exploratory laparotomy sigmoid colectomy and descending colostomy Thoracic compression fracture with thoracic back pain present on admission Compression deformity of the vertebrae present on admission Hiatal hernia with esophageal reflux disease Moderate severe COPD acute pneumoperitoneum secondary to a perforated diverticulitis. No evidence of acute exacerbation Post abdominal surgery respiratory failure weaned off ventilator Pain present on admission lower thoracic upper lumbar area suspect due to compression fractions Urinary incontinence with stress urinary type Obesity BMI 38 Bronchial asthma chronic microcytosis, which could be due to methotrexate use Plan Remove Jeter catheter Ostomy teaching DVT and GI prophylaxis Pain control Start clear liquid diet clamped nasal gastric tube If clear liquid diet tolerated nasal gastric tube will remove Further recommendations pending will follow The above dictated assessment and findings were discussed with dr michael James and the plan of care have been dictated as directed. Angelika Borja nurse practitioner acting as a scribe for dr rodriguez
[2016-08-06 18:00] LABS: Glucose,Whole Blood 140 mg/dL (75-99)
[2016-08-06] MEDS: LEVOFLOXACIN 500MG-D5W PMX 500 MG in DEXTROSE/WATER 1 100ML.BAG IVPB SCH (20:21)
[2016-08-07 00:01] LABS: Glucose,Whole Blood 139 mg/dL (75-99)
[2016-08-07 00:14] LABS: Glucose,Whole Blood 145 mg/dL (75-99)
[2016-08-07] MEDS: HYDROmorphone 1 MG/ML 1 ML SYRINGE IV PRN ×7 (02:15→22:08)
[2016-08-07] MEDS: SODIUM CHLORIDE 0.45% 1,000 ML IV SCH (02:18)
[2016-08-07 05:43] LABS: Glucose,Whole Blood 126 mg/dL (75-99)
[2016-08-07 08:02] LABS: Basophils # (A) 0.1 k/uL (0-0.2); Basophils % (A) 0 %; CH 33.5; CHCM 32.2; Eosinophils % (A) 0 %; HCT 26.6 % (34.0-46.0); HDW 3.19; HGB 8.7 gm/dL (11.4-16.0); Hypochromasia Slight; Luc # (Auto) 0.12; Luc % (Auto) 1; Lymphocytes # (A) 0.4 k/uL (1.0-4.8); Lymphocytes % (A) 3 %; MCH 34.2 pg (25.0-35.0); MCHC 32.7 g/dL (31.0-37.0); MCV 104.5 fL (80.0-100.0); Macrocytosis Moderate; Mean Platelet Volume 7.6; Monocytes # (A) 0.4 k/uL (0-1.0); Monocytes % (A) 3 %; Neutrophils # (A) 13.5 k/uL (1.3-7.7); Neutrophils % (A) 93 %; RBC 2.54 m/uL (3.80-5.40); RDW 14.9 % (11.5-15.5); WBC 14.5 k/uL (3.8-10.6); WBC (Perox) 15.06
[2016-08-07 08:04] LABS: Anion Gap 6 mmol/L; Blood Urea Nitrogen 20 mg/dL (7-17); Calcium 6.7 mg/dL (8.4-10.2); Carbon Dioxide 21 mmol/L (22-30); Chloride 112 mmol/L (98-107); Glucose 108 mg/dL (74-99); Magnesium 2.4 mg/dL (1.6-2.3); Non-African American GFR(MDRD) >60 (>60 ml/min/1.73 sqM); Phosphorous 1.6 mg/dL (2.5-4.5); Potassium 3.9 mmol/L (3.5-5.1); Sodium 139 mmol/L (137-145)
[2016-08-07] MEDS: IPRATROPIUM-ALBUTEROL 3 ML NEB INHALATION SCH ×4 (08:16→21:12)
[2016-08-07] MEDS: HYDROCORTISONE SUCCINATE 100 MG/2 ML VIAL IV SCH (09:02)
[2016-08-07] MEDS: ENOXAPARIN 40 MG/0.4 ML SYRINGE SQ SCH (09:02)
[2016-08-07] MEDS: metroNIDAZOLE-NS PMX 500 MG in SALINE 1 100ML.BAG IVPB SCH ×2 (09:02→17:44)
[2016-08-07] MEDS: PANTOPRAZOLE 40 MG/10 ML VIAL IV SCH (09:03)
[2016-08-07] MEDS: SODIUM PHOSPHATE 10 MMOL in SODIUM CHLORIDE 0.9% 250 ML IVPB SCH ×3 (10:57→21:31)
[2016-08-07 11:01] VITALS: BMI 38.0
--- NOTE | 2016-08-07 12:21 | P.PN ---
Subjective 66 year old female being seen and examined this morning. Patient states was able to get up to a bedside commode has been urinating. Currently there is no stool in the ostomy noted this morning. Patient states pain medication effective for pain control. The NG tube was pulled last evening by the surgeon patient is currently tolerating a diet status post exploratory laparotomy with sigmoid colectomy and descending colostomy, postoperative day #4. For a perforated sigmoid diverticulitis with appendicitis Objective - Vital Signs Vital signs: Vital Signs Temp 97.2 F L 08/07/16 07:00 Pulse 74 08/07/16 08:28 Resp 14 08/07/16 08:28 BP 141/70 08/07/16 07:00 Pulse Ox 95 08/07/16 08:17 Intake & Output 08/06/16 08/07/16 08/07/16 18:59 06:59 18:59 Intake Total 1562.5 Output Total 300 750 50 Balance -300 812.5 -50 Weight 100.6 kg Intake: IV 400 Levofloxacin 500Mg-D5w 200 Pmx 500 mg In Dextrose/ Water 1 100ml.bag @ 100 mls/hr IVPB Q24H [facility] Rx#: [id number] metroNIDAZOLE-NS PMX 500 200 mg In Saline 1 100ml.bag @ 100 mls/hr IVPB Q8HR [facility] Rx#:[id number] Intake, IV Titration 862.5 Amount Sodium Chloride 0.45% 1, 862.5 000 ml @ 75 mls/hr IV . [id number] [facility] Rx#:[id number] Oral 300 Output: Drainage 50 50 Right Lateral Abdomen 50 50 Urine 700 Straight 700 Stool 300 Other: Voiding Method Indwelling Catheter Bedpan # Voids 1 ABP, PAP, CO, CI - Last Documented Arterial Blood Pressure 99/86 - Exam Physical exam 66-year-old female sitting up in bed in no acute distress states pain medication effective for pain control Lungs essentially clear adequate air movement Heart S1-S2 audible regular Abdomen surgical tenderness. A prevena wound VAC in place. Ostomy pink. No stool noted in the ostomy bag. ELENI serous drainage noted. Extremities trace pedal edema - Labs CBC & Chem 7: 08/07/16 07:00 08/07/16 07:00 Labs: Abnormal Lab Results - Last 24 Hours (Table) 08/03/16 08/05/16 08/06/16 Range/Units 07:49 17:27 12:13 WBC (3.8-10.6) k/uL RBC (3.80-5.40) m/uL Hgb (11.4-16.0) gm/dL Hct (34.0-46.0) % MCV (80.0-100.0) fL Neutrophils # (1.3-7.7) k/uL Lymphocytes # (1.0-4.8) k/uL Chloride (98-107) mmol/L Carbon Dioxide (22-30) mmol/L BUN (7-17) mg/dL Glucose (74-99) mg/dL POC Glucose (mg/dL) 115 H (75-99) mg/dL Calcium (8.4-10.2) mg/dL Phosphorus (2.5-4.5) mg/dL Magnesium (1.6-2.3) mg/dL Total Protein (PEP) 5.7 L (6.2-8.2) g/dL Albumin (PEP) 2.84 L (3.80-4.90) g/dL Hadyt-5-Tudqfwsjn 0.42 H (0.10-0.40) g/dL Sflzi-2-Izadrlika 1.03 H (0.60-1.00) g/dL Gamma Globulins 0.51 L (0.70-1.50) g/dL Vitamin A 17 L (38-106) ug/dL 08/06/16 08/07/16 08/07/16 Range/Units 17:47 00:01 00:12 WBC (3.8-10.6) k/uL RBC (3.80-5.40) m/uL Hgb (11.4-16.0) gm/dL Hct (34.0-46.0) % MCV (80.0-100.0) fL Neutrophils # (1.3-7.7) k/uL Lymphocytes # (1.0-4.8) k/uL Chloride (98-107) mmol/L Carbon Dioxide (22-30) mmol/L BUN (7-17) mg/dL Glucose (74-99) mg/dL POC Glucose (mg/dL) 140 H 139 H 145 H (75-99) mg/dL Calcium (8.4-10.2) mg/dL Phosphorus (2.5-4.5) mg/dL Magnesium (1.6-2.3) mg/dL Total Protein (PEP) (6.2-8.2) g/dL Albumin (PEP) (3.80-4.90) g/dL Pkaxc-1-Fjsrunswi (0.10-0.40) g/dL Amkqy-7-Vjkzuepbh (0.60-1.00) g/dL Gamma Globulins (0.70-1.50) g/dL Vitamin A (38-106) ug/dL 08/07/16 08/07/16 08/07/16 Range/Units 05:23 07:00 07:00 WBC 14.5 H (3.8-10.6) k/uL RBC 2.54 L (3.80-5.40) m/uL Hgb 8.7 L (11.4-16.0) gm/dL Hct 26.6 L (34.0-46.0) % MCV 104.5 H (80.0-100.0) fL Neutrophils # 13.5 H (1.3-7.7) k/uL Lymphocytes # 0.4 L (1.0-4.8) k/uL Chloride 112 H (98-107) mmol/L Carbon Dioxide 21 L (22-30) mmol/L BUN 20 H (7-17) mg/dL Glucose 108 H (74-99) mg/dL POC Glucose (mg/dL) 126 H (75-99) mg/dL Calcium 6.7 L (8.4-10.2) mg/dL Phosphorus 1.6 L (2.5-4.5) mg/dL Magnesium 2.4 H (1.6-2.3) mg/dL Total Protein (PEP) (6.2-8.2) g/dL Albumin (PEP) (3.80-4.90) g/dL Abrxz-6-Hfvgswuga (0.10-0.40) g/dL Hjagt-1-Hfrddscvr (0.60-1.00) g/dL Gamma Globulins (0.70-1.50) g/dL Vitamin A (38-106) ug/dL Assessment and Plan Plan: Impression Severe iron deficiency anemia Present on admission abdominal pain suspect due to perforated sigmoid diverticulitis with acute appendicitis Status post exploratory laparotomy sigmoid colectomy and descending colostomy Thoracic compression fracture with thoracic back pain present on admission Compression deformity of the vertebrae present on admission Hiatal hernia with esophageal reflux disease Moderate severe COPD acute pneumoperitoneum secondary to a perforated diverticulitis. No evidence of acute exacerbation Post abdominal surgery respiratory failure weaned off ventilator Pain present on admission lower thoracic upper lumbar area suspect due to compression fractions Urinary incontinence with stress urinary type Obesity BMI 38 Bronchial asthma chronic microcytosis, which could be due to methotrexate use Hypo-phosphorus Plan Phosphorus to be replaced Ostomy teaching DVT and GI prophylaxis Pain control Repeat labs in the Further recommendations pending will follow Continue IV Levaquin and Flagyl The above dictated assessment and findings were discussed with dr rodriguez Impression and the plan of care have been dictated as directed. Angelika Borja nurse practitioner acting as a scribe for dr rodriguez
--- NOTE | 2016-08-07 12:34 | CDI ---
In responding to this query, please exercise your independent professional judgment. The [facility] Coding Staff and Clinical Documentation Specialists appreciate your assistance in clarifying documentation, maintaining compliance with coding guidelines, accurately documenting patients condition and capturing severity of illness. The fact that a question is asked does not imply that any particular answer is desired or expected. Communication forms are a method of clarifying documentation and are not made part of the Legal Health Record. Thank you in advance for your clarification. Last Revision, June 2015 Grace Swain [address] [facility] [place] [address] Documentation Clarification Form Date: 08/07/2016 12:09:00 PM From: Christel Jett Admit Date: 07/28/2016 12:17:00 PM Patient Name: Angelique Boyle Visit Number: [id number] Discharge Date: Dr. Xi Anderson/Kimber Stewart MEDICAL BILLING COORDINATOR-C Post abdominal surgery respiratory failure is documented in the progress notes on 08/05/16 - 08/06/16 (ongoing). Patients Admitting Diagnosis: Acute pneumoperitoneum secondary to a perforated diverticulitis. Post-Operative Diagnosis: Same Procedure performed: Exploratory laparotomy with sigmoid colectomy and descending colostomy History/Risk Factors: COPD, Compression deformity of the vertebrae, chronic bronchial asthma, Clinical Indicators: Emergent surgical intervention for a perforated diverticulitis. Admit to ICU for ventilator management. Treatment: 08/03/16 Mechanical ventilation @ 20:00, Extubate 08/04/16 @09:12 In order to accurately reflect this patients severity of illness, please clarify if the post-operative diagnosis of Respiratory failure is: An expected post-procedural or post-surgical condition Integral to the procedure Inherent to the procedure An unexpected post-procedural or post-surgical condition, related to the patients underlying medical co morbidities Other, please specify Unable to determine Please document in your progress notes in order to capture severity of illness and risk of mortality. Include clinical findings that support your diagnosis. FYI: Press F11 to launch patient chart Place X here if this finding has no clinical significance, is not applicable or if you are not able to provide any additional documentation. ESTELA
[2016-08-07 12:52] LABS: Glucose,Whole Blood 101 mg/dL (75-99)
--- NOTE | 2016-08-07 14:51 | P.PN ---
Subjective 66-year-old female patient, obese, known history of asthma, with known history of compression fracture of the vertebral spine, presented with pain in her lower back radiating to the right upper quadrant and right mid abdominal area. It seems that the pain is more so localized anteriorly and moving posterior to her back. Not the typical compression fracture pain that is encountered usually. No shortness of breath. The pain is somewhat worse with deep breathing however the patient had a CT angios the chest that showed no evidence of any pulmonary embolism. There is some limited patchy infiltrate in the right posterior lobe/right lower lobe along with some pleuritic irregularities posteriorly in the right lung base. Nevertheless, the abnormality was not enough to explain the patient's symptoms. The patient was admitted for for further workup. No nausea. No vomiting. No diarrhea. No bloody bowel movements. No chills. No fever. No falls pain no trauma to the back or side. No overlying skin rashes. No shingles. The x-ray of the abdomen raised the suspicion for a right renal stone measuring 2.4 x 1.5 cm in size. The x-ray of the lumbar spine showed osteophytic compression fracture and it was suspected at T12. T10 fracture was not completely excluded. The patient was seen by orthopedic surgery and general surgery in both signed off. I came to realize that the patient's urinalysis was also normal. There is increased red blood cells and some oxalate crystals seen. The patient is seen again today 07/30/2016 in follow-up on the regular medical floor. She is awake and alert in no acute distress. She still has some complaints of right-sided flank pain. Does have a right non-obstructive renal calculus. Has has known compression fractures. She is being followed by surgical services, orthopedic services and urology. No plans for intervention at this time. Denies any shortness of breath, cough or congestion. Her asthma is inactive and stable. On 07/31/2016 the patient is being seen in follow-up. She is still having the same pain over her back which is rather nonspecific and does not indicate to a specific pathology. Upon further questioning again today, the patient's pain is moving from her mid back and the right flank area and then moving to the left flank and moving up to the left upper posterior chest area. Not related to breathing. Rated to movements. The patient was seen by multiple consultants and there is no clear cause for this pain and we are still suspect in this and may be originating from her thoracolumbar spine. Based on that an MRI of the lumbar spine and the thoracic spine was ordered. The patient was also seen by pain management. On 08/01/2016 I'm seeing this patient in follow-up. She is still in pain in her condition essentially unchanged. The patient had an MRI of the thoracolumbar spine that showed severe compression deformity at the level of T12 with a 1.2 cm displacement of the posterior superior wall causing spinal canal narrowing. There is also compression deformity of the superior endplate of L2 which is likely old and 3 subtotal partially visualized superior endplate compression at the level of T11. The patient will be taken for a steroid injection by pain management. On 08/02/2016, the patient is feeling better. The patient had an epidural shot to her back and it is somewhat controlled the patient's pain. No other new complaints otherwise for now. She is resting comfortably in bed. She is on 20 mg of prednisone that needs to be tapered down further to 10 mg on a daily basis. The events that occurred on 08/03/2016 was noted. The CAT scan findings was also noted. Note that there was found to have free air in her CAT scan of the abdomen suggestive of bowel perforation. At that point the patient was taken to an emergent expiratory laparotomy and the patient was found to have a perforated diverticulitis, perforated viscus and pneumoperitoneum. 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 The patient underwent sigmoid colectomy, descending colostomy, abdominal washout with 6 L, appendectomy, taking down of internal hernia and application of prevena wound VAC system and ELENI drains in the right lower quadrant. Postop the patient was kept intubated on a mechanical ventilator and she was brought to the intensive care unit. At that the patient became slightly hypotensive and she was suspected to IV fluids. She was given more than 3 L of IV fluids and she was placed on 2 mics of levo fed for hemodynamic support. This morning the patient is off pressors. The patient is producing adequate amount of urine output. She was kept on a mechanical ventilator overnight. Her chest x-ray from this morning shows a stable finding with chronic changes and cardiomegaly with low lung volumes. He weaning parameters are appropriate and the patient was given a sedation holiday and following that the patient was given as pertains breathing trial with a pressure support of 5 and a PEEP of 5 and following that the patient was extubated to nasal cannula. NG tube was kept in place. ELENI drains also in place. No complaints otherwise for now. The patient is alert and awake and communicating. She is covered with a combination of Levaquin and Flagyl as broad-spectrum antibiotic coverage. Patient was reevaluated today on 08/05/2016, patient is hemodynamically stable, in no distress. On nasal cannula. Labs were reviewed, WBC count of 16.3 hemoglobin is 9.4. His metabolic profile is relatively normal. Patient tolerated the extubation quite well over the last 24 hours. Discussed her condition with Dr. Garcia, and we will likely transfer the patient to [facility] today. The patient is seen again today 08/06/2016 on the surgical floor. She is currently sitting up in the chair at the bedside. She is awake and alert in no acute distress. Her pain is well controlled. Nasogastric tube remains in place. Her asthma is currently inactive and stable. Patient is seen again today 08/07/2016 on the surgical floor. She is currently sitting up in bed. She is awake and alert in no acute distress. Her pain is well controlled. She has no pulmonary complaints. She is maintaining good O2 saturations in the mid 90s on 2 L/m per nasal cannula. She remains afebrile. Objective - Vital Signs Vital signs: Vital Signs Temp 97.2 F L 08/07/16 07:00 Pulse 74 08/07/16 12:43 Resp 14 08/07/16 08:28 BP 141/70 08/07/16 07:00 Pulse Ox 95 08/07/16 08:17 Intake & Output 08/06/16 08/07/16 08/07/16 18:59 06:59 18:59 Intake Total 1562.5 Output Total 300 750 475 Balance -300 812.5 -475 Weight 100.6 kg Intake: IV 400 Levofloxacin 500Mg-D5w 200 Pmx 500 mg In Dextrose/ Water 1 100ml.bag @ 100 mls/hr IVPB Q24H [facility] Rx#: [id number] metroNIDAZOLE-NS PMX 500 200 mg In Saline 1 100ml.bag @ 100 mls/hr IVPB Q8HR [facility]ARG[facility]ITA Rx#:[id number] Intake, IV Titration 862.5 Amount Sodium Chloride 0.45% 1, 862.5 000 ml @ 75 mls/hr IV . [id number] MARGARITA Rx#:[id number] Oral 300 Output: Drainage 50 50 Right Lateral Abdomen 50 50 Urine 700 425 Straight 700 Stool 300 Other: Voiding Method Indwelling Catheter Bedpan # Voids 1 1 ABP, PAP, CO, CI - Last Documented Arterial Blood Pressure 99/86 - Exam Head exam was generally normal. There was no scleral icterus or corneal arcus. Mucous membranes were moist.Neck was supple and without jugular venous distension, thyromegaly, or carotid bruits. Carotids were easily palpable bilaterally. There was no adenopathy. Lung sounds are diminished at bilaterally especially in the lung bases.Cardiac exam revealed the PMI to be normally situated and sized. The rhythm was regular and no extrasystoles were noted during several minutes of auscultation. The first and second heart sounds were normal and physiologic splitting of the second heart sound was noted. There were no murmurs, rubs, clicks, or gallops. Abdomen is soft and the patient has a prevena wound VAC in place. ELENI drain is also in place. Bowel sounds are hypoactive. Colostomy site is viable.Examination of the extremities revealed easily palpable radial, femoral and pedal pulses. There was no cyanosis , clubbing or edema. - Labs CBC & Chem 7: 08/07/16 07:00 08/07/16 07:00 Labs: Abnormal Lab Results - Last 24 Hours (Table) 08/03/16 08/05/16 08/06/16 Range/Units 07:49 17:27 17:47 WBC (3.8-10.6) k/uL RBC (3.80-5.40) m/uL Hgb (11.4-16.0) gm/dL Hct (34.0-46.0) % MCV (80.0-100.0) fL Neutrophils # (1.3-7.7) k/uL Lymphocytes # (1.0-4.8) k/uL Chloride (98-107) mmol/L Carbon Dioxide (22-30) mmol/L BUN (7-17) mg/dL Glucose (74-99) mg/dL POC Glucose (mg/dL) 140 H (75-99) mg/dL Calcium (8.4-10.2) mg/dL Phosphorus (2.5-4.5) mg/dL Magnesium (1.6-2.3) mg/dL Total Protein (PEP) 5.7 L (6.2-8.2) g/dL Albumin (PEP) 2.84 L (3.80-4.90) g/dL Lokng-2-Pqvfncfyt 0.42 H (0.10-0.40) g/dL Gyzjf-8-Relgnredy 1.03 H (0.60-1.00) g/dL Gamma Globulins 0.51 L (0.70-1.50) g/dL Vitamin A 17 L (38-106) ug/dL 08/07/16 08/07/16 08/07/16 Range/Units 00:01 00:12 05:23 WBC (3.8-10.6) k/uL RBC (3.80-5.40) m/uL Hgb (11.4-16.0) gm/dL Hct (34.0-46.0) % MCV (80.0-100.0) fL Neutrophils # (1.3-7.7) k/uL Lymphocytes # (1.0-4.8) k/uL Chloride (98-107) mmol/L Carbon Dioxide (22-30) mmol/L BUN (7-17) mg/dL Glucose (74-99) mg/dL POC Glucose (mg/dL) 139 H 145 H 126 H (75-99) mg/dL Calcium (8.4-10.2) mg/dL Phosphorus (2.5-4.5) mg/dL Magnesium (1.6-2.3) mg/dL Total Protein (PEP) (6.2-8.2) g/dL Albumin (PEP) (3.80-4.90) g/dL Sxeyt-0-Vvhzdplux (0.10-0.40) g/dL Oyurx-7-Suyxlebdg (0.60-1.00) g/dL Gamma Globulins (0.70-1.50) g/dL Vitamin A (38-106) ug/dL 08/07/16 08/07/16 08/07/16 Range/Units 07:00 07:00 12:31 WBC 14.5 H (3.8-10.6) k/uL RBC 2.54 L (3.80-5.40) m/uL Hgb 8.7 L (11.4-16.0) gm/dL Hct 26.6 L (34.0-46.0) % MCV 104.5 H (80.0-100.0) fL Neutrophils # 13.5 H (1.3-7.7) k/uL Lymphocytes # 0.4 L (1.0-4.8) k/uL Chloride 112 H (98-107) mmol/L Carbon Dioxide 21 L (22-30) mmol/L BUN 20 H (7-17) mg/dL Glucose 108 H (74-99) mg/dL POC Glucose (mg/dL) 101 H (75-99) mg/dL Calcium 6.7 L (8.4-10.2) mg/dL Phosphorus 1.6 L (2.5-4.5) mg/dL Magnesium 2.4 H (1.6-2.3) mg/dL Total Protein (PEP) (6.2-8.2) g/dL Albumin (PEP) (3.80-4.90) g/dL Oqufh-6-Udwrcdgvp (0.10-0.40) g/dL Rhdot-8-Ssjjzsrmi (0.60-1.00) g/dL Gamma Globulins (0.70-1.50) g/dL Vitamin A (38-106) ug/dL Assessment and Plan Plan: Impression: 1 acute pneumoperitoneum secondary to a perforated diverticulitis. Patient is status post expiratory laparotomy, sigmoid colectomy, descending colostomy, abdominal washout with 6 L of fluids, appendectomy, taken down of internal hernia RI application of a wound VAC system and placement of ELENI drain. 2 acute respiratory failure as an unexpected postprocedural condition secondary to her chronic bronchial asthma, weaned off the mechanical ventilator and extubated the following morning without any major difficulties. 3 pain involving the right kidney/flank/lower thoracic/upper lumbar area. After an extensive workup, the pain seems to be originating from a severe compression deformity of T12 and compression fractures of the level of L2 and L3. 4 bronchial asthma or chronic 4 chronic back pain 5 diverticulosis 6 obesity. 7 urinary incontinence with stress urinary type. Plan: The patient was seen and evaluated by Dr. Anderson. We did add incentive spirometer and encourage increased cough and deep breathing exercises. We'll continue with her current medications. We will increase her activity as tolerated. We'll continue to follow.
[2016-08-07 18:16] LABS: Glucose,Whole Blood 93 mg/dL (75-99)
--- NOTE | 2016-08-07 18:16 | P.PN ---
Progress Note - Text Diet advance to soft. She is tolerating her diet. ELENI fluid sent for aerobic and anaerobic cultures as intraoperative fluids was inadvertently sent for cell cytology instead of cultures. Regarding chronic back pain, difficulty of placing TLSO brace with an ostomy. Prevena wound VAC dressing intact. Will switch over to Prevena hand-held system for discharge, otherwise dressing will be discontinued by postop day 7.
[2016-08-07] MEDS: LEVOFLOXACIN 500MG-D5W PMX 500 MG in DEXTROSE/WATER 1 100ML.BAG IVPB SCH (19:18)
--- NOTE | 2016-08-07 19:34 | PN ---
Patient is clinically doing well. NG tube is out. Patient's IV fluids will be discontinued. Patient will be encouraged to drink fluids orally. REVIEW OF SYSTEMS: CARDIOVASCULAR: No chest pain, no orthopnea, no PND, no palpitations. PULMONARY: Denied any shortness of breath. No cough or hemoptysis. GASTROINTESTINAL: No diarrhea, nausea or vomiting. No abdominal pain. Normoactive bowel sounds. NEUROLOGIC: No headaches, no weakness, no numbness. Medications were reviewed. PHYSICAL EXAMINATION: Temperature 97.0, pulse of 74, respiratory rate of 16. Blood pressure is 115/57. Saturating at 98% on 2 L of oxygen by nasal cannula. GENERAL: The patient is alert and oriented x3, not in any acute distress. Well developed, well nourished. HEENT: Pupils are round and equally reacting to light. EOMI. No scleral icterus. No conjunctival pallor. Normocephalic, atraumatic. No pharyngeal erythema. No thyromegaly. CARDIOVASCULAR: S1 and S2 present. No murmurs, rubs, or gallops. PULMONARY: Chest is clear to auscultation, no wheezing or crackles. ABDOMEN: Patient does have bowel sounds. Patient does have abdominal soreness. MUSCULOSKELETAL: No joint swelling or deformity. EXTREMITIES: No cyanosis, clubbing, or pedal edema. NEUROLOGICAL: Gross neurological examination did not reveal any focal deficits. SKIN: No rashes. LABORATORY DATA: CBC, CMP are abnormal for elevated WBC count of 14,500. ASSESSMENT AND PLAN: 1. Perforated viscus secondary to peritonitis and sigmoid colitis. Continue with antibiotics, supportive care. 2. Back pain due to compression fractures. 3. Severe osteoporosis from chronic systemic steroids. 4. Moderate persistent asthma. 5. Gastroesophageal reflux disease. 6. Hypovolemic hyponatremia, improved with IV fluids. 7. Hyperchloremia due to IV fluids, which will be discontinued. 8. Leukocytosis secondary to peritonitis, which is expected to improve. Patient has significant clinical improvement. Patient's NG tube is out. Patient's diet is being advanced.
[2016-08-07] MEDS: METOCLOPRAMIDE 5 MG/ML 2 ML VIAL IVP PRN (21:31)
[2016-08-08] MEDS: metroNIDAZOLE-NS PMX 500 MG in SALINE 1 100ML.BAG IVPB SCH ×2 (00:57→09:33)
[2016-08-08 01:19] LABS: Glucose,Whole Blood 121 mg/dL (75-99)
[2016-08-08] MEDS: HYDROmorphone 1 MG/ML 1 ML SYRINGE IV PRN ×2 (01:27→06:22)
[2016-08-08 06:26] LABS: Glucose,Whole Blood 102 mg/dL (75-99)
[2016-08-08 07:33] LABS: Basophils % (A) 0 %; CH 33.7; Eosinophils % (A) 0 %; HCT 27.7 % (34.0-46.0); HDW 3.28; HGB 9.2 gm/dL (11.4-16.0); Hypochromasia Slight; Luc # (Auto) 0.09; Luc % (Auto) 1; Lymphocytes # (A) 0.5 k/uL (1.0-4.8); Lymphocytes % (A) 4 %; MCH 33.9 pg (25.0-35.0); MCV 102.6 fL (80.0-100.0); Macrocytosis Slight; Mean Platelet Volume 7.4; Monocytes # (A) 0.4 k/uL (0-1.0); Monocytes % (A) 4 %; Neutrophils # (A) 11.7 k/uL (1.3-7.7); Neutrophils % (A) 91 %; WBC 12.8 k/uL (3.8-10.6); WBC (Perox) 13.83
[2016-08-08 07:40] LABS: Anion Gap 4 mmol/L; Blood Urea Nitrogen 14 mg/dL (7-17); Calcium 6.8 mg/dL (8.4-10.2); Carbon Dioxide 24 mmol/L (22-30); Chloride 112 mmol/L (98-107); Glucose 95 mg/dL (74-99); Magnesium 2.2 mg/dL (1.6-2.3); Non-African American GFR(MDRD) >60 (>60 ml/min/1.73 sqM); Phosphorous 1.7 mg/dL (2.5-4.5); Potassium 3.3 mmol/L (3.5-5.1); Sodium 140 mmol/L (137-145)
[2016-08-08] MEDS: IPRATROPIUM-ALBUTEROL 3 ML NEB INHALATION SCH ×4 (08:14→20:08)
[2016-08-08] MEDS: ENOXAPARIN 40 MG/0.4 ML SYRINGE SQ SCH (08:58)
[2016-08-08] MEDS ORDERED: POTASSIUM CHLORIDE ER 20 MEQ TAB.ER PO STA ×2 (08:59→10:52)
[2016-08-08] MEDS: PANTOPRAZOLE 40 MG TABLET PO SCH (09:10)
[2016-08-08] MEDS: metroNIDAZOLE 500 MG TAB PO SCH ×3 (09:10→23:17)
[2016-08-08] MEDS ORDERED: HYDROcodone/APAP 5-325MG 1 EACH TAB PO PRN (09:13)
[2016-08-08] MEDS: SODIUM FERRIC GLUCONAT-SUCROSE 125 MG in SODIUM CHLORIDE 0.9% 100 ML IVPB SCH (09:30)
--- NOTE | 2016-08-08 09:38 | P.PN ---
Progress Note - Text The patient is seen and examined at bedside. She says she is feeling better. She has not been able to get up and walk she feels very weak globally when she tries to move around. She is starting to eat solid foods. Her pain in her back seems to have improved. She is quite worried that the pain may recur she is not actively having significant pain at the area of her back. Her lower extremities have sustained dorsal flexion plantarflexion and EHL She is afebrile stable vital signs Her upper extremities have good active and passive range of motion. Next nontender to range of motion. Status post exploratory laparotomy with irrigation and debridement and repair of perforated viscus, improving and continuing to be managed with Dr. Garcia Thoracic and lumbar back pain which has improved since her abdominal surgery Multiple compression fractures with possible subacute fracture at T8 At this point we do not plan surgical intervention for her spine. It is unlikely that a brace would be appropriate fitting for her given her abdominal issues and would cause significant undue pressure. Her pain at her back has significantly improved however she is significantly deconditioned and quite anxious about the pain possibly recurring. I think this will continue to improve as she mobilizes further with physical therapy. We can continue conservative expectant management for her thoracic spine at this point.
[2016-08-08] MEDS: SODIUM PHOSPHATE 10 MMOL in SODIUM CHLORIDE 0.9% 250 ML IVPB SCH ×3 (10:51→15:36)
--- NOTE | 2016-08-08 11:18 | P.PN ---
Subjective 66 year old female resting comfortably in bed. No postop surgical events noted over the night. Patient currently has chronic lower back pain being followed by orthopedic service. This been difficulty placing the TLSO back brace with an ostomy. Does have a wound VAC in place at the surgical site. The discharge plan is in progress when medically stable patient is to be transferred to subacute rehab status post exploratory laparotomy with sigmoid colectomy and descending colostomy, postoperative day #5 For a perforated sigmoid diverticulitis with appendicitis Objective - Vital Signs Vital signs: Vital Signs Temp 97.1 F L 08/08/16 07:00 Pulse 86 08/08/16 08:27 Resp 16 08/08/16 08:00 BP 134/69 08/08/16 07:00 Pulse Ox 95 08/08/16 08:15 Intake & Output 08/07/16 08/08/16 08/08/16 18:59 06:59 18:59 Intake Total 1300 Output Total 495 1020 370 Balance -495 280 -370 Weight 100.6 kg Intake: IV 300 Levofloxacin 500Mg-D5w 100 Pmx 500 mg In Dextrose/ Water 1 100ml.bag @ 100 mls/hr IVPB Q24H [facility] Rx#: [id number] metroNIDAZOLE-NS PMX 500 200 mg In Saline 1 100ml.bag @ 100 mls/hr IVPB Q8HR [facility] Rx#:[id number] Intake, IV Titration 1000 Amount Sodium Chloride 0.45% 1, 750 000 ml @ 75 mls/hr IV . [id number] [facility] Rx#:[id number] Sodium Phosphate 10 mmol 250 In Sodium Chloride 0.9% 250 ml @ 125 mls/hr IVPB Q2H [facility]ARG[facility]ITA Rx#:[id number] Output: Drainage 70 70 70 Right Lateral Abdomen 70 70 70 Urine 425 850 Stool 300 Urine/Stool Mix 100 Other: Voiding Method Bedpan Bedpan Bedpan # Voids 1 1 ABP, PAP, CO, CI - Last Documented Arterial Blood Pressure 99/86 - Exam Physical exam 66-year-old female resting in bed in no acute distress states pain medication effective for pain control Lungs essentially clear adequate air movement denying shortness of breath no cough noted Heart S1-S2 audible regular denying chest Abdomen surgical tenderness. A prevena wound VAC in place. Ostomy pink. stool noted in the ostomy bag. ELENI serous drainage noted. Extremities trace pedal edema Venodyne's on with the piwev-dee-jwaz AUGUTSINE hoskennedy in place - Labs CBC & Chem 7: 08/08/16 06:58 08/08/16 06:58 Labs: Abnormal Lab Results - Last 24 Hours (Table) 08/07/16 08/08/16 08/08/16 Range/Units 12:31 01:18 06:23 WBC (3.8-10.6) k/uL RBC (3.80-5.40) m/uL Hgb (11.4-16.0) gm/dL Hct (34.0-46.0) % MCV (80.0-100.0) fL Neutrophils # (1.3-7.7) k/uL Lymphocytes # (1.0-4.8) k/uL Potassium (3.5-5.1) mmol/L Chloride (98-107) mmol/L Creatinine (0.52-1.04) mg/dL POC Glucose (mg/dL) 101 H 121 H 102 H (75-99) mg/dL Calcium (8.4-10.2) mg/dL Phosphorus (2.5-4.5) mg/dL 08/08/16 08/08/16 Range/Units 06:58 06:58 WBC 12.8 H (3.8-10.6) k/uL RBC 2.70 L (3.80-5.40) m/uL Hgb 9.2 L (11.4-16.0) gm/dL Hct 27.7 L (34.0-46.0) % MCV 102.6 H (80.0-100.0) fL Neutrophils # 11.7 H (1.3-7.7) k/uL Lymphocytes # 0.5 L (1.0-4.8) k/uL Potassium 3.3 L (3.5-5.1) mmol/L Chloride 112 H (98-107) mmol/L Creatinine 0.51 L (0.52-1.04) mg/dL POC Glucose (mg/dL) (75-99) mg/dL Calcium 6.8 L (8.4-10.2) mg/dL Phosphorus 1.7 L (2.5-4.5) mg/dL Microbiology - Last 24 Hours (Table) 08/07/16 12:28 Gram Stain - Preliminary Peritoneal Fluid Body Fluid Culture - Preliminary Assessment and Plan Plan: Impression Severe iron deficiency anemia Present on admission abdominal pain suspect due to perforated sigmoid diverticulitis with acute appendicitis Status post exploratory laparotomy sigmoid colectomy and descending colostomy Thoracic compression fracture with thoracic back pain present on admission Compression deformity of the vertebrae present on admission Hiatal hernia with esophageal reflux disease Moderate severe COPD acute pneumoperitoneum secondary to a perforated diverticulitis. No evidence of acute exacerbation Post abdominal surgery respiratory failure weaned off ventilator Pain present on admission lower thoracic upper lumbar area suspect due to compression fractions conservative approach to management Urinary incontinence with stress urinary type Obesity BMI 38 Bronchial asthma chronic microcytosis, which could be due to methotrexate use Hypo-phosphorus Plan Phosphorus to be replaced Ostomy teaching DVT and GI prophylaxis Pain control Repeat labs in the Further recommendations pending will follow Continue IV Levaquin and Flagyl Prevena wound VAC dressing intact. Will switch over to Prevena hand-held system for discharge, otherwise dressing will be discontinued by postop day 7. The above dictated assessment and findings were discussed with dr michael James and the plan of care have been dictated as directed. Angelika Borja nurse practitioner acting as a scribe for dr rodriguez
[2016-08-08 11:58] LABS: Glucose,Whole Blood 99 mg/dL (75-99)
[2016-08-08] MEDS: HYDROcodone/APAP 7.5-325MG 1 EACH TAB PO PRN ×4 (13:10→22:10)
[2016-08-08] MEDS: KETOROLAC 30 MG/ML 1 ML VIAL IVP SCH ×3 (13:13→23:16)
--- NOTE | 2016-08-08 14:24 | P.PN ---
Subjective 66-year-old female patient, obese, known history of asthma, with known history of compression fracture of the vertebral spine, presented with pain in her lower back radiating to the right upper quadrant and right mid abdominal area. It seems that the pain is more so localized anteriorly and moving posterior to her back. Not the typical compression fracture pain that is encountered usually. No shortness of breath. The pain is somewhat worse with deep breathing however the patient had a CT angios the chest that showed no evidence of any pulmonary embolism. There is some limited patchy infiltrate in the right posterior lobe/right lower lobe along with some pleuritic irregularities posteriorly in the right lung base. Nevertheless, the abnormality was not enough to explain the patient's symptoms. The patient was admitted for for further workup. No nausea. No vomiting. No diarrhea. No bloody bowel movements. No chills. No fever. No falls pain no trauma to the back or side. No overlying skin rashes. No shingles. The x-ray of the abdomen raised the suspicion for a right renal stone measuring 2.4 x 1.5 cm in size. The x-ray of the lumbar spine showed osteophytic compression fracture and it was suspected at T12. T10 fracture was not completely excluded. The patient was seen by orthopedic surgery and general surgery in both signed off. I came to realize that the patient's urinalysis was also normal. There is increased red blood cells and some oxalate crystals seen. The patient is seen again today 07/30/2016 in follow-up on the regular medical floor. She is awake and alert in no acute distress. She still has some complaints of right-sided flank pain. Does have a right non-obstructive renal calculus. Has has known compression fractures. She is being followed by surgical services, orthopedic services and urology. No plans for intervention at this time. Denies any shortness of breath, cough or congestion. Her asthma is inactive and stable. On 07/31/2016 the patient is being seen in follow-up. She is still having the same pain over her back which is rather nonspecific and does not indicate to a specific pathology. Upon further questioning again today, the patient's pain is moving from her mid back and the right flank area and then moving to the left flank and moving up to the left upper posterior chest area. Not related to breathing. Rated to movements. The patient was seen by multiple consultants and there is no clear cause for this pain and we are still suspect in this and may be originating from her thoracolumbar spine. Based on that an MRI of the lumbar spine and the thoracic spine was ordered. The patient was also seen by pain management. On 08/01/2016 I'm seeing this patient in follow-up. She is still in pain in her condition essentially unchanged. The patient had an MRI of the thoracolumbar spine that showed severe compression deformity at the level of T12 with a 1.2 cm displacement of the posterior superior wall causing spinal canal narrowing. There is also compression deformity of the superior endplate of L2 which is likely old and 3 subtotal partially visualized superior endplate compression at the level of T11. The patient will be taken for a steroid injection by pain management. On 08/02/2016, the patient is feeling better. The patient had an epidural shot to her back and it is somewhat controlled the patient's pain. No other new complaints otherwise for now. She is resting comfortably in bed. She is on 20 mg of prednisone that needs to be tapered down further to 10 mg on a daily basis. The events that occurred on 08/03/2016 was noted. The CAT scan findings was also noted. Note that there was found to have free air in her CAT scan of the abdomen suggestive of bowel perforation. At that point the patient was taken to an emergent expiratory laparotomy and the patient was found to have a perforated diverticulitis, perforated viscus and pneumoperitoneum. 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 The patient underwent sigmoid colectomy, descending colostomy, abdominal washout with 6 L, appendectomy, taking down of internal hernia and application of prevena wound VAC system and ELENI drains in the right lower quadrant. Postop the patient was kept intubated on a mechanical ventilator and she was brought to the intensive care unit. At that the patient became slightly hypotensive and she was suspected to IV fluids. She was given more than 3 L of IV fluids and she was placed on 2 mics of levo fed for hemodynamic support. This morning the patient is off pressors. The patient is producing adequate amount of urine output. She was kept on a mechanical ventilator overnight. Her chest x-ray from this morning shows a stable finding with chronic changes and cardiomegaly with low lung volumes. He weaning parameters are appropriate and the patient was given a sedation holiday and following that the patient was given as pertains breathing trial with a pressure support of 5 and a PEEP of 5 and following that the patient was extubated to nasal cannula. NG tube was kept in place. ELENI drains also in place. No complaints otherwise for now. The patient is alert and awake and communicating. She is covered with a combination of Levaquin and Flagyl as broad-spectrum antibiotic coverage. Patient was reevaluated today on 08/05/2016, patient is hemodynamically stable, in no distress. On nasal cannula. Labs were reviewed, WBC count of 16.3 hemoglobin is 9.4. His metabolic profile is relatively normal. Patient tolerated the extubation quite well over the last 24 hours. Discussed her condition with Dr. Garcia, and we will likely transfer the patient to [facility] today. The patient is seen again today 08/06/2016 on the surgical floor. She is currently sitting up in the chair at the bedside. She is awake and alert in no acute distress. Her pain is well controlled. Nasogastric tube remains in place. Her asthma is currently inactive and stable. Patient is seen again today 08/07/2016 on the surgical floor. She is currently sitting up in bed. She is awake and alert in no acute distress. Her pain is well controlled. She has no pulmonary complaints. She is maintaining good O2 saturations in the mid 90s on 2 L/m per nasal cannula. She remains afebrile. The patient is seen again today 08/08/2016 on the surgical floor. She is resting quite comfortably in bed. She denies any worsening shortness of breath cough or congestion. Her asthma has remained well controlled. She continues to work well with her incentive spirometer. Objective - Vital Signs Vital signs: Vital Signs Temp 97.2 F L 08/08/16 14:00 Pulse 89 08/08/16 14:00 Resp 16 08/08/16 14:00 BP 181/77 08/08/16 14:00 Pulse Ox 97 08/08/16 14:00 Intake & Output 08/07/16 08/08/16 08/08/16 18:59 06:59 18:59 Intake Total 1300 Output Total 495 1020 870 Balance -495 280 -870 Weight 100.6 kg Intake: IV 300 Levofloxacin 500Mg-D5w 100 Pmx 500 mg In Dextrose/ Water 1 100ml.bag @ 100 mls/hr IVPB Q24H MARG[facility]ITA Rx#: [id number] metroNIDAZOLE-NS PMX 500 200 mg In Saline 1 100ml.bag @ 100 mls/hr IVPB Q8HR [facility]ARG[facility] Rx#:[id number] Intake, IV Titration 1000 Amount Sodium Chloride 0.45% 1, 750 000 ml @ 75 mls/hr IV . [id number] [facility]ARG[facility] Rx#:[id number] Sodium Phosphate 10 mmol 250 In Sodium Chloride 0.9% 250 ml @ 125 mls/hr IVPB Q2H MARGARITA Rx#:[id number] Output: Drainage 70 70 70 Right Lateral Abdomen 70 70 70 Urine 425 850 500 Stool 300 Urine/Stool Mix 100 Other: Voiding Method Bedpan Bedpan Bedpan # Voids 1 1 1 ABP, PAP, CO, CI - Last Documented Arterial Blood Pressure 99/86 - Exam Head exam was generally normal. There was no scleral icterus or corneal arcus. Mucous membranes were moist.Neck was supple and without jugular venous distension, thyromegaly, or carotid bruits. Carotids were easily palpable bilaterally. There was no adenopathy. Lung sounds are diminished at bilaterally especially in the lung bases.Cardiac exam revealed the PMI to be normally situated and sized. The rhythm was regular and no extrasystoles were noted during several minutes of auscultation. The first and second heart sounds were normal and physiologic splitting of the second heart sound was noted. There were no murmurs, rubs, clicks, or gallops. Abdomen is soft and the patient has a prevena wound VAC in place. ELENI drain is also in place. Bowel sounds are hypoactive. Colostomy site is viable. Examination of the extremities revealed easily palpable radial, femoral and pedal pulses. There was no cyanosis, clubbing or edema. - Labs CBC & Chem 7: 08/08/16 06:58 08/08/16 06:58 Labs: Abnormal Lab Results - Last 24 Hours (Table) 08/08/16 08/08/16 08/08/16 Range/Units 01:18 06:23 06:58 WBC 12.8 H (3.8-10.6) k/uL RBC 2.70 L (3.80-5.40) m/uL Hgb 9.2 L (11.4-16.0) gm/dL Hct 27.7 L (34.0-46.0) % MCV 102.6 H (80.0-100.0) fL Neutrophils # 11.7 H (1.3-7.7) k/uL Lymphocytes # 0.5 L (1.0-4.8) k/uL Potassium (3.5-5.1) mmol/L Chloride (98-107) mmol/L Creatinine (0.52-1.04) mg/dL POC Glucose (mg/dL) 121 H 102 H (75-99) mg/dL Calcium (8.4-10.2) mg/dL Phosphorus (2.5-4.5) mg/dL 08/08/16 Range/Units 06:58 WBC (3.8-10.6) k/uL RBC (3.80-5.40) m/uL Hgb (11.4-16.0) gm/dL Hct (34.0-46.0) % MCV (80.0-100.0) fL Neutrophils # (1.3-7.7) k/uL Lymphocytes # (1.0-4.8) k/uL Potassium 3.3 L (3.5-5.1) mmol/L Chloride 112 H (98-107) mmol/L Creatinine 0.51 L (0.52-1.04) mg/dL POC Glucose (mg/dL) (75-99) mg/dL Calcium 6.8 L (8.4-10.2) mg/dL Phosphorus 1.7 L (2.5-4.5) mg/dL Microbiology - Last 24 Hours (Table) 08/07/16 12:28 Gram Stain - Preliminary Peritoneal Fluid Body Fluid Culture - Preliminary Assessment and Plan Plan: Impression: 1 acute pneumoperitoneum secondary to a perforated diverticulitis. Patient is status post expiratory laparotomy, sigmoid colectomy, descending colostomy, abdominal washout with 6 L of fluids, appendectomy, taken down of internal hernia UT application of a wound VAC system and placement of ELENI drain. 2 acute respiratory failure as an unexpected postprocedural condition secondary to her chronic bronchial asthma, weaned off the mechanical ventilator and extubated the following morning without any major difficulties. 3 pain involving the right kidney/flank/lower thoracic/upper lumbar area. After an extensive workup, the pain seems to be originating from a severe compression deformity of T12 and compression fractures of the level of L2 and L3. 4 bronchial asthma or chronic 4 chronic back pain 5 diverticulosis 6 obesity. 7 urinary incontinence with stress urinary type. Plan: The patient was seen and evaluated by Dr. Anderson. She is stable from the pulmonary standpoint. We'll continue with her current medications. We will increase her activity as tolerated. She is again encouraged regarding the increased use of the incentive spirometer and cough and deep breathing exercises. We'll continue to follow. Discharge planning is in place regarding possible inpatient rehabilitation.
[2016-08-08] MEDS: PANTOPRAZOLE 40 MG/10 ML VIAL IV SCH (15:57)
[2016-08-08] MEDS: LEVOFLOXACIN 500 MG TAB PO SCH (16:02)
--- NOTE | 2016-08-08 16:10 | DS ---
PROGRESS NOTE AND DISCHARGE SUMMARY DATE OF ADMISSION: 07/28/2016 DATE OF DISCHARGE: Patient did have a bowel movement. Patient's NG tube is out. Patient does have bowel sounds and patient has a wound V.A.C. in place. Patient is otherwise clinically doing well, will be discharged to subacute rehabilitation if everything is set up. This dictation is both progress note and discharge summary. Patient was admitted with back pain, initially found to have compression fractures, and patient was also worked up for malignancy. All the workup is negative. Because of the multiple areas of compression fractures which are secondary to systemic steroids that she has been on for a long time for asthma, that is not an issue at this point of time. Patient was later incidentally found to have free air and sigmoid rupture and colitis, because of which patient underwent laparotomy, sigmoid colectomy and descending colectomy, and patient is now clinically doing well and can be discharged. REVIEW OF SYSTEMS: Patient is still complaining of pain in the right lower rib cage area. Medications were reviewed. PHYSICAL EXAMINATION: VITAL SIGNS: Temperature 97.2, pulse of 88, respiratory rate of 16. Blood pressure is 181/77. Saturating at 97% on 2 L of oxygen by nasal cannula. GENERAL: The patient is alert and oriented x3, not in any acute distress. Well developed, well nourished. HEENT: Pupils are round and equally reacting to light. EOMI. No scleral icterus. No conjunctival pallor. Normocephalic, atraumatic. No pharyngeal erythema. No thyromegaly. CARDIOVASCULAR: S1 and S2 present. No murmurs, rubs, or gallops. PULMONARY: Chest is clear to auscultation, no wheezing or crackles. ABDOMEN: Patient does have a colostomy bag in place. Patient does have stool in colostomy bag. Patient has a wound V.A.C. MUSCULOSKELETAL: No joint swelling or deformity. EXTREMITIES: No cyanosis, clubbing, or pedal edema. NEUROLOGICAL: Gross neurological examination did not reveal any focal deficits. SKIN: No rashes. Patient will be discharged with the wound V.A.C. ASSESSMENT AND PLAN: 1. Perforated viscus secondary to peritonitis and sigmoid colitis, which is improving. 2. Back pain with compression fractures. 3. Severe osteoporosis from chronic steroids. 4. Moderate persistent asthma. 5. Gastroesophageal reflux disease. 6. Hypovolemic hyponatremia, which improved with IV fluids, which were discontinued. 7. Hyperchloremia due to IV fluids, which were discontinued. 8. Leukocytosis secondary to peritonitis, which is expected. 9. Compression fractures. Spent greater than 35 minutes in total discharge process. Patient will be discharged if we are able to today. Please refer to my depart summary for details of discharge medications. Patient will follow up with Dr. Chencho Gallardo on August 20, 2016, at 1:45 and Orthopedic Surgery on August 26 at 10:30. Activity as tolerated. Cardiac diet. Patient will follow up with the physician in rehab. Spent greater than 35 minutes in total discharge process.
[2016-08-08 16:55] LABS: Glucose,Whole Blood 92 mg/dL (75-99)
[2016-08-08 22:36] VITALS: RESP 18
[2016-08-09] MEDS: HYDROcodone/APAP 7.5-325MG 1 EACH TAB PO PRN ×3 (01:14→15:38)
[2016-08-09] MEDS: KETOROLAC 30 MG/ML 1 ML VIAL IVP SCH ×3 (05:22→17:35)
[2016-08-09 07:20] LABS: Glucose,Whole Blood 95 mg/dL (75-99)
[2016-08-09 08:09] VITALS: BP 131/89; TEMP 98.1
[2016-08-09] MEDS: IPRATROPIUM-ALBUTEROL 3 ML NEB INHALATION SCH ×3 (08:33→15:51)
[2016-08-09] MEDS: metroNIDAZOLE 500 MG TAB PO SCH ×2 (08:35→18:24)
[2016-08-09] MEDS: PANTOPRAZOLE 40 MG TABLET PO SCH (08:35)
[2016-08-09 08:38] LABS: Anion Gap 5 mmol/L; Blood Urea Nitrogen 8 mg/dL (7-17); Carbon Dioxide 24 mmol/L (22-30); Chloride 107 mmol/L (98-107); Glucose 91 mg/dL (74-99); Non-African American GFR(MDRD) >60 (>60 ml/min/1.73 sqM); Potassium 3.8 mmol/L (3.5-5.1); Sodium 136 mmol/L (137-145)
--- NOTE | 2016-08-09 08:52 | P.PN ---
Progress Note - Text Patient is a very pleasant and well known 66-year-old female who is seen and examined at bedside for further evaluation for significant ongoing thoracic back pain. She's been previously seen and evaluated in our office in March 2015. Patient sustained a fall approximately 3 weeks ago and presented to [facility] for further evaluation. At that time a TLSO brace was ordered and fitted for the patient. She remained in the hospital for approximately 4 days before being discharged to [facility] rehabilitation [facility]. She states she spent 5 days and rehab without significant relief of her symptoms. She was subsequently discharged. Since that time her back pain had been uncontrollable. She presented to [facility] for evaluation. Since being admitted, she has had an injection at L2 performed by pain management with mild relief of her symptoms. She has had an MRI of both the thoracic and lumbar spine. She was found to have an acute T8 compression fracture deformity possible metastatic. An MRI with contrast and thoracic spine was ordered. Dr. Pang in oncology was consulted for further evaluation and workup for metastatic disease. CT the abdomen and pelvis as ordered. Following results of the computed tomography scan, she is found to have free air and a ruptured sigmoid colon. She underwent surgical intervention with Dr. Herndon over the weekend. Initially following the surgery, she had been having improvement of her thoracic back pain. Over the past several days her thoracic back pain has continued to worsen. She has been unable to wear the brace prescribed following her abdominal surgery. She currently has a colostomy placed as well as a large incision over the midline of the abdomen and another tube in the right side of the abdomen. Patient states today she is scheduled to be transferred to [facility]. Today she is visibly upset and quite concerned about her transfer. She states she wants to get better but is concerned about her incision care. She states over the past week and a half or being in hospital she feels significantly generally weaker. Today she states she feels discouraged about her overall progress. While being seen and examined at bedside, Justino is present. They currently going to try to adjust her bracing in care of her abdominal incisions. She continues denies specific lower extremity radiculopathy. She feels generally weaker in the lower extremities currently. She has been able to transfer to bedside chair with assistance of the physical therapy but has not been ambulating. Physical exam: Patient is awake, alert, and oriented 3 Vital signs stable Good chest excursion with deep inspiration and expiration Abdomen tender following surgery; incisions over the abdomen appear to be clean , dry, and intact; colostomy appears to be intact Examination of thoracic and lumbar spine not performed as patient remains lying on her back status post abdominal surgery Dorsiflexion, plantarflexion, and extensor hallucis longus positive sustained bilaterally Lower extremity strength positive sustained bilaterally No lower extremity hyperreflexia bilaterally No signs or symptoms of DVT; no calf pain No pain with internal and external rotation of the hips bilaterally Neurovascularly intact Studies: CT the abdomen and pelvis taken on 08/03/2016: New pneumoperitoneum with inflammatory change consistent with perforated acute colitis suspected diverticulitis; multiple compression fracture deformities redemonstrated including acute fracture at T7 and T8 cannot be excluded; intradural extramedullary air noted accounting for abnormal MRI signal and mass effect MRI of the thoracic spine taken on 08/01/2016: T8 signal abnormality related to metastasis; Absent signal posterior to the thecal sac at T9, T10, and T11; T12 spinal canal narrowing due to posterior wall displacement of vertebral body compression fracture; compression fracture deformities at T7, T8, T10; posterior spinal canal hemorrhage may be present MRI of the lumbar spine taken on 07/31/2016: T12 severe compression fracture deformity with 1.2 cm displacement to the posterior wall causing spinal canal narrowing; L2 superior endplate compression fracture deformity is most likely chronic; T11 subtle partially visualize superior endplate compression X-rays lumbar spine: Osteoporotic compression fractures suspected; compression fracture deformities at T11 superior endplate compression fracture deformity with approximately 15% height loss, T12 with approximately 75% height loss and L2 approximately 20% height loss superiorly CT of the chest: Multiple compression fracture deformities appeared to be at T7 with approximatly 75% height loss, T8 with approximately 20% height loss, T10 with approximately 75% height loss, T11 with approximately 15% height loss and T12 approximately 80% height loss of indeterminate age that are not reported in the impression; no acute pulmonary embolism; mild compressive atelectasis Chest x-ray: Large right renal stone of the mid kidney measuring approximately 2.4 cm x 1.5 cm Assessment: Status post abdominal surgery to repair ruptured sigmoid colon with evidence of free air Status post fall Intractable thoracic and lumbar back pain Acute T8 compression fracture deformity status post fall; possible metastatic Absent signal posterior to the thecal sac at T9, T10, and T11 Multiple compression fracture deformities at T7, T10, T11, T12, and L2 that appear to be stable and chronic in nature Failure of outpatient treatment Dehydration Large right renal stone with right far lateral mid and lower thoracic pain Plan: 1. We continue to feel her multiple compression fractures at T7, T10, T11, T12 , and L2 appear to be chronic in nature and appear to be stable. There are no significant changes found within these multiple compression fractures. According to our imaging taken at [facility], the T8 compression fracture appears to be acute as compared to previous study taken on 03/13/2015. Following her recent surgery for her ruptured sigmoid colon, she has been having some increased thoracic pain after initial improvement postsurgically. At this time not currently complaining for any further invasive treatment in regards to her thoracic spine following her recent abdominal surgery. We'll wait to see her in outpatient setting for further evaluation after she is given some time to recover from her abdominal surgery. An Exos LSO brace has been ordered and delivered to the patient. Ricardo and Damaso currently try to adjust a previously prescribed DESAI II TLSO brace to see if she is able to tolerate that. If so, she may wear this brace while sitting up to greater than 45, while doing activities, and while ambulating. She does not have to wear the brace while lying in bed or while bathing. She should avoid excessive bending, twisting, lifting; no lifting greater than 10 pounds. She does not have to wear this brace if general surgery feels this would inhibit her ability to recover from abdominal surgical standpoint. We will plan to have her follow-up in outpatient setting in approximately 2-3 weeks for further evaluation. Patient is currently cleared for discharge from orthopedic spine standpoint. 2. Patient will continue to follow with Dr. Herndon in general surgery for further treatment evaluation following surgical intervention to repair ruptured sigmoid colon with evidence of free air 3. She will continue with evaluation by Dr. Pang in oncology for further evaluation following MRI report indicating T8 metastatic disease 4. Dr. Li in medicine to continue following the patient; may recommend abdominal CT 5. Continue pain control 6. I have discussed this patient in detail with Dr. Titi Salazar and he agrees with this plan
--- NOTE | 2016-08-09 09:14 | US ---
EXAMINATION TYPE: US gallbladder DATE OF EXAM: 08/09/2016 8:59 AM COMPARISON: NONE CLINICAL HISTORY: Cholecystitis. Recent surgery for bowel obstruction, multiple bandages on abdomen. Patient very sore, unable to really roll up LLD for imaging. EXAM MEASUREMENTS: Liver Length: 16.9 cm Gallbladder Wall: 0.3 cm CBD: 0.9 cm Right Kidney: 9.1 x 4.5 x 4.9 cm Pancreas: not visualized due to bandages and bowel gas Liver: wnl Gallbladder: wnl Evidence for sonographic Bernardo's sign: Yes CBD: dilated Right Kidney: No hydronephrosis or masses seen shadowing 1.2 cm right upper pole renal calculus is n oted. IMPRESSION: 1. Enlargement of the common bile duct up to 9 mm with no other sonographic evidence of cholecystitis . No evidence of cholelithiasis or gallbladder sludge. HIDA scan or MRCP could be performed for furth er evaluation if clinically indicated. 2. Nonobstructing 1.2 cm right upper pole renal calculus.
[2016-08-09] MEDS: ENOXAPARIN 40 MG/0.4 ML SYRINGE SQ SCH (09:56)
[2016-08-09] MEDS: SODIUM FERRIC GLUCONAT-SUCROSE 125 MG in SODIUM CHLORIDE 0.9% 100 ML IVPB SCH (09:57)
[2016-08-09 10:52] LABS: Phosphorous 1.7 mg/dL (2.5-4.5)
[2016-08-09] MEDS ORDERED: MORPHINE SULFATE ER 30 MG TABLET PO PRN (11:37)
[2016-08-09] MEDS ORDERED: traMADol 50 MG TAB PO PRN (11:41)
[2016-08-09 11:58] VITALS: PULSE 88
--- NOTE | 2016-08-09 13:31 | DS ---
DATE OF ADMISSION: 07/28/2016 DATE OF DISCHARGE: Patient is status post bowel surgery. Patient is complaining of right upper quadrant abdominal pain for which patient is undergoing HIDA scan after which if HIDA scan is negative, patient will be discharged. The patient was seen and examined on the day of discharge. Vitals are stable. PHYSICAL EXAMINATION: GENERAL: The patient is alert and oriented x3, not in any acute distress. Well developed, well nourished. HEENT: Pupils are round and equally reacting to light. EOMI. No scleral icterus. No conjunctival pallor. Normocephalic, atraumatic. No pharyngeal erythema. No thyromegaly. CARDIOVASCULAR: S1 and S2 present. No murmurs, rubs, or gallops. PULMONARY: Chest is clear to auscultation, no wheezing or crackles. GASTROINTESTINAL: Pain in the right upper quadrant, unchanged compared to yesterday. MUSCULOSKELETAL: No joint swelling or deformity. EXTREMITIES: No cyanosis, clubbing, or pedal edema. NEUROLOGICAL: Gross neurological examination did not reveal any focal deficits. SKIN: No rashes. Please refer to my dictation of discharge summary from yesterday for further details and discharge medications and followups. Consider the discharge summary as progress note, even today titrating her antihypertensive medications. I spent greater than 35 minutes. For further details, please refer to my discharge summary from yesterday.
--- NOTE | 2016-08-09 14:02 | P.PN ---
Subjective 66-year-old female patient, obese, known history of asthma, with known history of compression fracture of the vertebral spine, presented with pain in her lower back radiating to the right upper quadrant and right mid abdominal area. It seems that the pain is more so localized anteriorly and moving posterior to her back. Not the typical compression fracture pain that is encountered usually. No shortness of breath. The pain is somewhat worse with deep breathing however the patient had a CT angios the chest that showed no evidence of any pulmonary embolism. There is some limited patchy infiltrate in the right posterior lobe/right lower lobe along with some pleuritic irregularities posteriorly in the right lung base. Nevertheless, the abnormality was not enough to explain the patient's symptoms. The patient was admitted for for further workup. No nausea. No vomiting. No diarrhea. No bloody bowel movements. No chills. No fever. No falls pain no trauma to the back or side. No overlying skin rashes. No shingles. The x-ray of the abdomen raised the suspicion for a right renal stone measuring 2.4 x 1.5 cm in size. The x-ray of the lumbar spine showed osteophytic compression fracture and it was suspected at T12. T10 fracture was not completely excluded. The patient was seen by orthopedic surgery and general surgery in both signed off. I came to realize that the patient's urinalysis was also normal. There is increased red blood cells and some oxalate crystals seen. The patient is seen again today 07/30/2016 in follow-up on the regular medical floor. She is awake and alert in no acute distress. She still has some complaints of right-sided flank pain. Does have a right non-obstructive renal calculus. Has has known compression fractures. She is being followed by surgical services, orthopedic services and urology. No plans for intervention at this time. Denies any shortness of breath, cough or congestion. Her asthma is inactive and stable. On 07/31/2016 the patient is being seen in follow-up. She is still having the same pain over her back which is rather nonspecific and does not indicate to a specific pathology. Upon further questioning again today, the patient's pain is moving from her mid back and the right flank area and then moving to the left flank and moving up to the left upper posterior chest area. Not related to breathing. Rated to movements. The patient was seen by multiple consultants and there is no clear cause for this pain and we are still suspect in this and may be originating from her thoracolumbar spine. Based on that an MRI of the lumbar spine and the thoracic spine was ordered. The patient was also seen by pain management. On 08/01/2016 I'm seeing this patient in follow-up. She is still in pain in her condition essentially unchanged. The patient had an MRI of the thoracolumbar spine that showed severe compression deformity at the level of T12 with a 1.2 cm displacement of the posterior superior wall causing spinal canal narrowing. There is also compression deformity of the superior endplate of L2 which is likely old and 3 subtotal partially visualized superior endplate compression at the level of T11. The patient will be taken for a steroid injection by pain management. On 08/02/2016, the patient is feeling better. The patient had an epidural shot to her back and it is somewhat controlled the patient's pain. No other new complaints otherwise for now. She is resting comfortably in bed. She is on 20 mg of prednisone that needs to be tapered down further to 10 mg on a daily basis. The events that occurred on 08/03/2016 was noted. The CAT scan findings was also noted. Note that there was found to have free air in her CAT scan of the abdomen suggestive of bowel perforation. At that point the patient was taken to an emergent expiratory laparotomy and the patient was found to have a perforated diverticulitis, perforated viscus and pneumoperitoneum. 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 The patient underwent sigmoid colectomy, descending colostomy, abdominal washout with 6 L, appendectomy, taking down of internal hernia and application of prevena wound VAC system and ELENI drains in the right lower quadrant. Postop the patient was kept intubated on a mechanical ventilator and she was brought to the intensive care unit. At that the patient became slightly hypotensive and she was suspected to IV fluids. She was given more than 3 L of IV fluids and she was placed on 2 mics of levo fed for hemodynamic support. This morning the patient is off pressors. The patient is producing adequate amount of urine output. She was kept on a mechanical ventilator overnight. Her chest x-ray from this morning shows a stable finding with chronic changes and cardiomegaly with low lung volumes. He weaning parameters are appropriate and the patient was given a sedation holiday and following that the patient was given as pertains breathing trial with a pressure support of 5 and a PEEP of 5 and following that the patient was extubated to nasal cannula. NG tube was kept in place. ELENI drains also in place. No complaints otherwise for now. The patient is alert and awake and communicating. She is covered with a combination of Levaquin and Flagyl as broad-spectrum antibiotic coverage. Patient was reevaluated today on 08/05/2016, patient is hemodynamically stable, in no distress. On nasal cannula. Labs were reviewed, WBC count of 16.3 hemoglobin is 9.4. His metabolic profile is relatively normal. Patient tolerated the extubation quite well over the last 24 hours. Discussed her condition with Dr. Garcia, and we will likely transfer the patient to [facility] today. The patient is seen again today 08/06/2016 on the surgical floor. She is currently sitting up in the chair at the bedside. She is awake and alert in no acute distress. Her pain is well controlled. Nasogastric tube remains in place. Her asthma is currently inactive and stable. Patient is seen again today 08/07/2016 on the surgical floor. She is currently sitting up in bed. She is awake and alert in no acute distress. Her pain is well controlled. She has no pulmonary complaints. She is maintaining good O2 saturations in the mid 90s on 2 L/m per nasal cannula. She remains afebrile. The patient is seen again today 08/08/2016 on the surgical floor. She is resting quite comfortably in bed. She denies any worsening shortness of breath cough or congestion. Her asthma has remained well controlled. She continues to work well with her incentive spirometer. The patient is seen again today 08/09/2016 on the surgical floor. She is awake and alert in no acute distress. She does have some continued right-sided abdominal discomfort and continued back pain. These are being addressed. She denies any worsening shortness of breath, cough or congestion. Her asthma has been stable and inactive. He continues to work well with the incentive spirometer. Objective - Vital Signs Vital signs: Vital Signs Temp 98.1 F 08/09/16 08:08 Pulse 88 08/09/16 11:58 Resp 18 08/09/16 03:37 BP 131/89 08/09/16 08:08 Pulse Ox 96 08/09/16 08:35 Intake & Output 08/08/16 08/09/16 08/09/16 18:59 06:59 18:59 Output Total 1860 120 400 Balance -1860 -120 -400 Weight 100.6 kg Output: Drainage 160 120 Right Lateral Abdomen 160 120 Urine 900 400 Stool 800 Other: Voiding Method Bedpan Bedpan # Voids 1 1 # Bowel Movements 1 ABP, PAP, CO, CI - Last Documented Arterial Blood Pressure 99/86 - Exam Head exam was generally normal. There was no scleral icterus or corneal arcus. Mucous membranes were moist.Neck was supple and without jugular venous distension, thyromegaly, or carotid bruits. Carotids were easily palpable bilaterally. There was no adenopathy. Lung sounds are diminished at bilaterally especially in the lung bases.Cardiac exam revealed the PMI to be normally situated and sized. The rhythm was regular and no extrasystoles were noted during several minutes of auscultation. The first and second heart sounds were normal and physiologic splitting of the second heart sound was noted. There were no murmurs, rubs, clicks, or gallops. Abdomen is soft and the patient has a prevena wound VAC in place. ELENI drain is also in place. Bowel sounds are hypoactive. Colostomy site is viable. Examination of the extremities revealed easily palpable radial, femoral and pedal pulses. There was no cyanosis, clubbing or edema. - Labs CBC & Chem 7: 08/08/16 06:58 08/09/16 07:10 Labs: Abnormal Lab Results - Last 24 Hours (Table) 08/09/16 08/09/16 Range/Units 07:10 07:10 Sodium 136 L (137-145) mmol/L Creatinine 0.45 L (0.52-1.04) mg/dL Calcium 7.0 L (8.4-10.2) mg/dL Phosphorus 1.7 L (2.5-4.5) mg/dL Microbiology - Last 24 Hours (Table) 08/07/16 12:28 Gram Stain - Preliminary Peritoneal Fluid Body Fluid Culture - Preliminary Assessment and Plan Plan: Impression: 1 acute pneumoperitoneum secondary to a perforated diverticulitis. Patient is status post expiratory laparotomy, sigmoid colectomy, descending colostomy, abdominal washout with 6 L of fluids, appendectomy, taken down of internal hernia CO application of a wound VAC system and placement of ELENI drain. 2 acute respiratory failure as an unexpected postprocedural condition secondary to her chronic bronchial asthma, weaned off the mechanical ventilator and extubated the following morning without any major difficulties. Asthma currently inactive and stable. 3 pain involving the right kidney/flank/lower thoracic/upper lumbar area. After an extensive workup, the pain seems to be originating from a severe compression deformity of T12 and compression fractures of the level of L2 and L3. 4 bronchial asthma, moderate persistent chronic 4 chronic back pain 5 diverticulosis 6 obesity. 7 urinary incontinence with stress urinary type. Plan: The patient was seen and evaluated by Dr. Anderson. She is stable for discharge from the pulmonary standpoint. We'll continue with her current medications. We will increase her activity as tolerated. She is again encouraged regarding the increased use of the incentive spirometer and cough and deep breathing exercises. Discharge planning is in place regarding possible inpatient rehabilitation.
--- NOTE | 2016-08-09 15:44 | NM ---
EXAMINATION TYPE: NM hepatobiliary w EF DATE OF EXAM: 08/09/2016 3:26 PM COMPARISON: NONE HISTORY: Right upper quadrant pain TECHNIQUE: After the intravenous administration of 5.5 mCi Tc 99m Mebrofenin hepatobiliary scintigrap hy is performed. Immediate images post injection. FINDINGS: There is satisfactory initial accumulation of tracer by the liver. The gallbladder is visualized wit hin 18 minutes. The small bowel activity is noted within 36 minutes. At one hour 8 ounces of oral e nsure plus is given to mimic CCK and gallbladder ejection fraction is calculated at 32 %, below troy l. Therefore there is no scintigraphic evidence of cystic or common bile duct obstruction to suggest acute cholecystitis or gallbladder dyskinesia. IMPRESSION: BILIARY DYSKINESIA.
--- NOTE | 2016-08-09 17:16 | P.PN ---
Subjective Principal diagnosis: Patient is being seen in follow-up, for possible malignancy in the thoracic spine. She was found to have a bowel perforation on CT of the abdomen and pelvis, and is status post bowel resection and ostomy creation. Objective - Vital Signs Vital signs: Vital Signs Temp 98.1 F 08/09/16 08:08 Pulse 88 08/09/16 16:02 Resp 18 08/09/16 03:37 BP 131/89 08/09/16 08:08 Pulse Ox 96 08/09/16 08:35 Intake & Output 08/08/16 08/09/16 08/09/16 18:59 06:59 18:59 Output Total 1860 120 450 Balance -1860 -120 -450 Weight 100.6 kg Output: Drainage 160 120 50 Right Lateral Abdomen 160 120 50 Urine 900 400 Stool 800 Other: Voiding Method Bedpan Bedpan # Voids 1 1 # Bowel Movements 1 ABP, PAP, CO, CI - Last Documented Arterial Blood Pressure 99/86 - Constitutional General appearance: Present: mild distress - EENT Eyes: Present: EOMI, PERRLA ENT: Present: normal oropharynx - Respiratory Respiratory: bilateral: diminished - Cardiovascular Rhythm: regular Heart sounds: normal: S1, S2 - Gastrointestinal Gastrointestinal Comment(s): Ostomy has mostly liquid greenish stools General gastrointestinal: Present: decreased bowel sounds - Neurologic Neurologic: Present: CNII-XII intact - Musculoskeletal Musculoskeletal: Present: generalized weakness, strength equal bilaterally - Psychiatric Psychiatric: Present: A&O x's 3, intact judgment & insight - Labs CBC & Chem 7: 08/08/16 06:58 08/09/16 07:10 Labs: Abnormal Lab Results - Last 24 Hours (Table) 08/09/16 08/09/16 Range/Units 07:10 07:10 Sodium 136 L (137-145) mmol/L Creatinine 0.45 L (0.52-1.04) mg/dL Calcium 7.0 L (8.4-10.2) mg/dL Phosphorus 1.7 L (2.5-4.5) mg/dL Assessment and Plan (1) Thoracic compression fracture Narrative/Plan: A CT of the abdomen and pelvis was done, to check for any masses or adenopathy. This incidentally showed bowel perforation leading to surgery. The patient is still recovering from her surgery. Protein electrophoresis studies are negative. Therefore at this time, there is no evidence of any malignancy elsewhere. We'll discuss the case again with the orthopedic surgery, once the patient is recovered appropriately from her bowel issues. Depending on their opinion at the time, we will plan on biopsy, for ortho- spine, if that is felt to be appropriate. Status: Acute (2) Macrocytosis Status: Acute Plan: Patient's pathology report from her bowel resection was reviewed. This indicated likely diverticulitis with perforation. There was no evidence of malignancy
[2016-08-09] MEDS: LEVOFLOXACIN 500 MG TAB PO SCH (18:25)
--- NOTE | 2016-08-29 05:43 | PN ---
DATE OF SERVICE: 07/31/2016 ADDENDUM: All the remaining elements of this dictation are the same. Dictation date and time was 07/31/20162034. The dictation posting time was 07/31/162140. The date was the only addendum that needed addended item, the wrong date was on the original dictation.
--- NOTE | 2016-08-29 22:58 | PN ---
DATE OF SERVICE: 07/29/2016 Attending note: This patient was seen and examined by me on 07/29/2016 I reviewed the note of my nurse practitioner, Ms. Palafox, and agreed and discussed the same. Patient presented with compression fracture multiple vertebra. The patient continues to have low back pain. On examination, lying in bed, tired-appearing. ABDOMEN: Minimal tenderness. No guarding or rigidity, soft. Liver and spleen not palpable. ASSESSMENT: 1. Chronic compression fracture multiple vertebra. 2. Chronic constipation from pain medications. Patient does get lactulose with good results. Continue on MiraLax. Continue current medication and treatment plan. Follow.
--- NOTE | 2016-08-30 07:48 | PN ---
DATE OF SERVICE: 08/02/2016 ATTENDING NOTE: This patient seen and examined by me on 08/02/2016. I reviewed the note of my nurse practitioner. Ms. Palafox. Agreed and discussed. This is a patient who presented with compression fracture to multiple vertebra. Pain is still present. Lying in bed. On exam, afebrile, blood pressure 142/72. Minimal tenderness. No guarding or rigidity. Liver and spleen not palpable. ASSESSMENT: Multiple level compression fracture. Brace has been ordered. Some abnormal signals are present. PLAN: Continue current medication and treatment plan. Will follow with orthopedics. Pain management also on the case. Lactulose was given previously. Will follow.
--- NOTE | 2016-08-30 07:53 | PN ---
DATE OF SERVICE: 07/31/2016 ATTENDING NOTE: This patient was seen and examined by me on 07/31/16. This note is for note dictated by Ms. Palafox on 07/31/16 at 2039 and date transcribed on 07/31/16 at 2150. Correct addendum note date is in chart. I reviewed the note by my nurse practitioner, Ms. Palafox, and discussed and agree with the same. Patient was admitted with low back pain, vertebral fractures. Has a brace and still some pain is present. Tolerating a diet. On examination, blood pressure 130/61, pulse 92% on room air. ABDOMEN: Soft, nontender. Liver and spleen not palpable. PSYCHIATRY: Alert, oriented x3. Lower back pain tenderness is present. ASSESSMENT: 1. Multiple compression fractures as noted. 2. Chronic constipation, likely from pain medications. Patient did respond to laxative. PLAN: Await input from pain management. Other medication and treatment plan is to continue.
--- NOTE | 2016-09-26 13:25 | PN ---
ADDENDUM TO PROGRESS NOTE #[id number]. Service date of original note and addendum is incorrect. Correct date should be DATE OF SERVICE 07/30/2016, not 07/31/2016. The remaining elements of original dictation remain the same.
== END 2016-08-09 19:32 | DRG 981 ==
LOC: EC 07:20 → 4MS4W 12:17 → 6ICU 08-03 17:54 → 3SUR 08-05 20:22
PROVIDERS: ADMIT Hospitalist; ATTEND Hospitalist
PROC: 3E0S33Z Introduction of Anti-inflammatory into Epidural Space, Percutaneous Approach (ICD-10-PCS; 2016-08-01)
PROC: 0DTJ0ZZ Resection of Appendix, Open Approach (ICD-10-PCS; principal; 2016-08-03 15:45)
PROC: 0D1M0Z4 Bypass Descending Colon to Cutaneous, Open Approach (ICD-10-PCS; principal; 2016-08-03 15:45)
PROC: 0WQF0ZZ Repair Abdominal Wall, Open Approach (ICD-10-PCS; principal; 2016-08-03 15:45)
PROC: 0DTN0ZZ Resection of Sigmoid Colon, Open Approach (ICD-10-PCS; principal; 2016-08-03 15:45)
DX: M48.54XA Collapsed vertebra, not elsewhere classified, thoracic region, initial encounter for fracture (principal); A41.9 Sepsis, unspecified organism; R65.20 Severe sepsis without septic shock; E87.8 Other disorders of electrolyte and fluid balance, not elsewhere classified; I50.9 Heart failure, unspecified; K57.20 Diverticulitis of large intestine with perforation and abscess without bleeding; E87.1 Hypo-osmolality and hyponatremia; J44.9 Chronic obstructive pulmonary disease, unspecified; N20.0 Calculus of kidney; E86.0 Dehydration; E66.9 Obesity, unspecified; F51.04 Psychophysiologic insomnia; K59.09 Other constipation; M48.56XA Collapsed vertebra, not elsewhere classified, lumbar region, initial encounter for fracture; K59.03 Drug induced constipation; N39.3 Stress incontinence (female) (male); Z68.38 Body mass index [BMI] 38.0-38.9, adult; J45.40 Moderate persistent asthma, uncomplicated; Z79.899 Other long term (current) drug therapy; Z79.52 Long term (current) use of systemic steroids; Z91.040 Latex allergy status; K21.0 Gastro-esophageal reflux disease with esophagitis; M06.9 Rheumatoid arthritis, unspecified; G89.29 Other chronic pain; M81.0 Age-related osteoporosis without current pathological fracture; Z80.0 Family history of malignant neoplasm of digestive organs; K44.9 Diaphragmatic hernia without obstruction or gangrene; K37 Unspecified appendicitis; D50.9 Iron deficiency anemia, unspecified; D75.89 Other specified diseases of blood and blood-forming organs; K52.9 Noninfective gastroenteritis and colitis, unspecified; K82.8 Other specified diseases of gallbladder; M19.90 Unspecified osteoarthritis, unspecified site; M46.90 Unspecified inflammatory spondylopathy, site unspecified; M47.816 Spondylosis without myelopathy or radiculopathy, lumbar region; M48.04 Spinal stenosis, thoracic region; M51.36 Other intervertebral disc degeneration, lumbar region; T38.0X5A Adverse effect of glucocorticoids and synthetic analogues, initial encounter; T40.605A Adverse effect of unspecified narcotics, initial encounter; Z79.83 Long term (current) use of bisphosphonates; Z85.828 Personal history of other malignant neoplasm of skin; Z87.440 Personal history of urinary (tract) infections; Z87.442 Personal history of urinary calculi; Z91.81 History of falling
CPT/HCPCS: 36415; 36600; 36620; 62323; 71010; 71020; 71275; 72100; 72146; 72147; 72148; 74000; 74177; 76705; 78226; 80048; 80053; 81001; 82150; 82550; 82553; 82607; 82728; 82805; 83540; 83550; 83690; 83735; 83883; 84100; 84165; 84425; 84590; 85025; 85027; 85379; 86334; 87070; 87077; 87186; 87205; 88108; 88304; 88305; 88307; 94002; 94003; 94640; 94760; 96361; 96374; 96375; 96376; 99285

== ENCOUNTER 2016-08-23 11:39 | Emergency (ER) | payer BC ==
[2016-08-23 11:54] VITALS: RESP 20; TEMP 97.3
[2016-08-23] MEDS ORDERED: SODIUM CHLORIDE 0.9% 1,000 ML IV STA (12:14)
--- NOTE | 2016-08-23 12:25 | ED ---
General Adult HPI - General Chief complaint: Abdominal Pain Stated complaint: Abd Pain Time Seen by Provider: 08/23/16 11:55 Source: patient, EMS, RN notes reviewed, old records reviewed Mode of arrival: EMS Limitations: no limitations - History of Present Illness Initial comments: Chief complaint and history of present illness this is a 66-year-old female who is been in a detention for several days. The patient was in hospital for a prolonged period of time because of initially back pain and investigation of that back pain found free air and perforated diverticulum. Dr. Garcia performed surgery moving part of the colon and the patient has a colostomy. The patient reports since the surgery she did have discomfort to the left upper quadrant on-again off-again. She did see the surgeon just 2 days ago at the time she did not have the pain but she did have an earlier in the week. She had earlier today currently without discomfort. No change in appetite which she reports been poor for several weeks. Colostomy bag is working without apparent difficulties. - Related Data Home Medications Medication Instructions Recorded Confirmed Folic Acid 1 mg PO DAILY@1700 10/19/15 08/23/16 Albuterol Nebulized [Ventolin 2.5 mg INHALATION RT-BID@0800,1700 07/22/16 Nebulized] Albuterol Sulfate [Proventil Hfa] 2 puff INHALATION RT-Q6H PRN 07/22/16 08/23/16 Alendronate Sodium [Fosamax] 70 mg PO FR 07/22/16 08/23/16 Budesonide/Formoterol Fumarate 2 puff INHALATION RT-BID@0800,209907/22/1608/23 [Symbicort 160-4.5 Mcg Inhaler] Cholecalciferol [Vitamin D3] 3,000 unit PO DAILY@1700 07/22/16 08/23/16 Cyclobenzaprine [Flexeril] 10 mg PO TID@0600,1400,209907/22/16 08/23/16 Montelukast [Singulair] 10 mg PO HS@209907/22/16 08/23/16 Omeprazole 20 mg PO BID@0600,1700 07/22/16 08/23/16 Polyethylene Glycol 3350 [Miralax] 17 gm PO DAILY@0800 07/22/16 08/23/16 Sennosides [Senokot] 8.6 mg PO HS@2100 07/22/16 08/23/16 Methotrexate Sodium [Methotrexate] 12.5 mg PO MO@0800 07/28/16 08/23/16 Bisacodyl [Dulcolax] 10 mg RECTAL DAILY PRN 08/23/16 08/23/16 Ensure Clear 1 can PO TID-W/MEALS 08/23/16 08/23/16 HYDROcodone/APAP 7.5-325MG [Lucas 1 tab PO Q4H PRN 08/23/16 08/23/16 7.5-325] Magnesium Hydroxide [Milk of 2,400 mg PO DAILY PRN 08/23/16 08/23/16 Magnesia] Morphine Sulfate [Ms Contin] 30 mg PO Q12HR PRN 08/23/16 08/23/16 Na Phos,M-B/Na Phos,Di-Ba [Fleet 133 ml RECTAL DAILY PRN 08/23/16 08/23/16 Adult] Vitamins A and D [Vitamin A & D] 1 applic TOPICAL BID PRN 08/23/16 08/23/16 Previous Rx's Medication Instructions Recorded traMADol HCL [Ultram] 50 mg PO Q4HR PRN #30 tab 08/08/16 Allergies Allergy/AdvReac Type Severity Reaction Status Date / Time furosemide [From Lasix] Allergy Rash/Hives Verified 08/23/16 11:50 Review of Systems ROS Statement: Those systems with pertinent positive or pertinent negative responses have been documented in the HPI. Review of systems no complaint of headache or visual acuity changes no chest pain or shortness of breath the patient does have a history of severe COPD. Her discomfort is to the left upper quadrant and to the similar side on the opposite part of the right side of the abdomen. She reports mild pressure over the area decrease discomfort. The pain comes and goes. Has not affected her appetite. Denies any frequency or dysuria. Denies any neuro deficits. All systems were reviewed past medical history significant for skin cancer on her face. GERD, asthma severe COPD., diverticulosis and diverticulitis with perforation. Surgeries include tubal ligation, left eye cataract surgery, surgery in the past several weeks for perforated diverticulitis with colostomy left side of the abdomen. Chronic kidney disorder. She had cataract left eye with repair. Nonsmoker nondrinker family history includes colon cancer. ROS Other: All systems not noted in ROS Statement are negative. Past Medical History Past Medical History: Asthma, Cancer, GERD/Reflux Additional Past Medical History / Comment(s): Bronchial asthma, compression fracture of the T-spine, osteoporosis, skin cancer, history of sepsis of urinary source, sigmoid diverticulosis, compression fracture of the L2 spine, compression fracture of the T12 spine, compression fracture of the T7 spine History of Any Multi-Drug Resistant Organisms: None Reported Past Surgical History: Appendectomy, Bowel Resection, Tubal Ligation Additional Past Surgical History / Comment(s): CATARACT LEFT EYE WITH REPAIR OF MACULAR HOLE. Colonoscopy, 2015. bowel resection with colostomy Past Anesthesia/Blood Transfusion Reactions: No Reported Reaction Past Psychological History: No Psychological Hx Reported Smoking Status: Never smoker Past Alcohol Use History: Occasional Past Drug Use History: None Reported - Past Family History Mother Family Medical History: Cancer Additional Family Medical History / Comment(s): COLON CANCER in Mother General Exam - General Exam Comments Initial Comments: General: The patient is awake and alert, in no distress, and does not appear acutely ill. States she has recurrent left upper quadrant discomfort and occasionally right lateral abdominal discomfort. On again off again for several weeks. Vital signs show temperature 97.3 pulse 97 respiratory rate 20 pulse ox 94% room air blood pressure 163/70. Eye: Pupils are equal, round and reactive to light, extra-ocular movements are intact ; there is normal conjunctiva bilaterally. No signs of icterus. Evidence of left cataract surgery. Ears, nose, mouth and throat: There are moist mucous membranes and no oral lesions. Neck: The neck is supple, there is no tenderness . Cardiovascular: There is a regular rate and rhythm. No murmur, rub or gallop is appreciated. Respiratory: Lungs are clear to auscultation, respirations are non-labored, breath sounds are equal. No wheezes, stridor, rales, or rhonchi. Gastrointestinal: Soft, non-distended, non-tender abdomen without masses or organomegaly noted. There is no rebound or guarding present. No CVA tenderness. Bowel sounds are unremarkable. Functioning colostomy left side of abdomen. Palpation of the left and right lateral aspect of the abdomen where the patient has discomfort seems to decrease the discomfort. Again currently no rebound or referred pain. Back: Chronic back pain. Musculoskeletal: Normal ROM, no tenderness, There is no pedal edema. There is no calf tenderness or swelling. Sensation intact. Pulses equal bilaterally 2+. Neurological: CN II-XII intact, There are no obvious motor or sensory deficits. Coordination appears grossly intact. Speech is normal. No evidence of any neuro deficits. Skin: Skin is warm and dry and no rashes or lesions are noted. Limitations: no limitations Course Vital Signs 08/23/16 08/23/16 08/23/16 11:51 13:19 14:26 Temperature 97.3 F L Pulse Rate 97 95 90 Respiratory 20 20 20 Rate Blood Pressure 163/70 145/67 149/68 O2 Sat by Pulse 94 L 97 98 Oximetry 08/23/16 15:00 Temperature Pulse Rate Respiratory 20 Rate Blood Pressure O2 Sat by Pulse 99 Oximetry Medical Decision Making - Medical Decision Making Medical decision making; white count 4.7 hemoglobin 11 hematocrit of 34 and INR 1.1 plasma lactic acid normal at 0.7, potassium 4.0 BUN 11 creatinine 0.46 with a GFR greater than 60, sugar 98. Amylase lipase normal limits. To view x-ray abdomen was done and reviewed by radiologist his findings include there is normal bowel gas pattern. No free air is evident. No suspicious air- fluid levels of the differential air-fluid levels are present. Psoas margins are normal. No abnormality is present. There is a 1.0 x 2.7 cm calcification of the mid right kidney. Final impression right renal calculus. As read by Dr. Lion On 3 reexaminations the patient was without pain. No rebound or referred pain. All labs and x-ray reported to be within normal limits. The plant this time the patient be returned to her facility with follow-up by her general surgeon. - Lab Data Result diagrams: 08/23/16 13:07 08/23/16 13:07 Lab Results 08/23/16 08/23/16 08/23/16 Range/Units 13:07 13:07 13:07 WBC 4.7 (3.8-10.6) k/uL RBC 3.29 L (3.80-5.40) m/uL Hgb 11.1 L (11.4-16.0) gm/dL Hct 34.5 (34.0-46.0) % MCV 104.6 H (80.0-100.0) fL MCH 33.7 (25.0-35.0) pg MCHC 32.2 (31.0-37.0) g/dL RDW 16.0 H (11.5-15.5) % Plt Count 191 (150-450) k/uL Neutrophils % 74 % Lymphocytes % 12 % Monocytes % 8 % Eosinophils % 4 % Basophils % 1 % Neutrophils # 3.5 (1.3-7.7) k/uL Lymphocytes # 0.6 L (1.0-4.8) k/uL Monocytes # 0.4 (0-1.0) k/uL Eosinophils # 0.2 (0-0.7) k/uL Basophils # 0.0 (0-0.2) k/uL Macrocytosis Moderate PT (9.0-12.0) sec INR (<1.1) Sodium 137 (137-145) mmol/L Potassium 4.0 (3.5-5.1) mmol/L Chloride 101 (98-107) mmol/L Carbon Dioxide 28 (22-30) mmol/L Anion Gap 8 mmol/L BUN 11 (7-17) mg/dL Creatinine 0.46 L (0.52-1.04) mg/dL Est GFR (MDRD) Af Amer >60 (>60 ml/min/1.73 sqM) Est GFR (MDRD) Non-Af >60 (>60 ml/min/1.73 sqM) Glucose 98 (74-99) mg/dL Plasma Lactic Acid Cullen 0.7 (0.7-2.0) mmol/L Calcium 8.1 L (8.4-10.2) mg/dL Total Bilirubin 0.8 (0.2-1.3) mg/dL AST 26 (14-36) U/L ALT 26 (9-52) U/L Alkaline Phosphatase 80 (38-126) U/L Total Protein 5.8 L (6.3-8.2) g/dL Albumin 2.9 L (3.5-5.0) g/dL Amylase <30 L (30-110) U/L Lipase 67 (23-300) U/L 08/23/16 Range/Units 13:07 WBC (3.8-10.6) k/uL RBC (3.80-5.40) m/uL Hgb (11.4-16.0) gm/dL Hct (34.0-46.0) % MCV (80.0-100.0) fL MCH (25.0-35.0) pg MCHC (31.0-37.0) g/dL RDW (11.5-15.5) % Plt Count (150-450) k/uL Neutrophils % % Lymphocytes % % Monocytes % % Eosinophils % % Basophils % % Neutrophils # (1.3-7.7) k/uL Lymphocytes # (1.0-4.8) k/uL Monocytes # (0-1.0) k/uL Eosinophils # (0-0.7) k/uL Basophils # (0-0.2) k/uL Macrocytosis PT 10.9 (9.0-12.0) sec INR 1.1 (<1.1) Sodium (137-145) mmol/L Potassium (3.5-5.1) mmol/L Chloride (98-107) mmol/L Carbon Dioxide (22-30) mmol/L Anion Gap mmol/L BUN (7-17) mg/dL Creatinine (0.52-1.04) mg/dL Est GFR (MDRD) Af Amer (>60 ml/min/1.73 sqM) Est GFR (MDRD) Non-Af (>60 ml/min/1.73 sqM) Glucose (74-99) mg/dL Plasma Lactic Acid Cullen (0.7-2.0) mmol/L Calcium (8.4-10.2) mg/dL Total Bilirubin (0.2-1.3) mg/dL AST (14-36) U/L ALT (9-52) U/L Alkaline Phosphatase (38-126) U/L Total Protein (6.3-8.2) g/dL Albumin (3.5-5.0) g/dL Amylase (30-110) U/L Lipase (23-300) U/L Disposition Clinical Impression: Abdominal pain Disposition: HOME SELF-CARE Condition: Fair Instructions: Abdominal Pain (ED) Additional Instructions: Continue with home medications. Follow-up with family physician and general surgeon. Referrals: Chencho Gallardo DO [Primary Care Provider] - 1-2 days Time of Disposition: 15:43
[2016-08-23 13:30] LABS: Basophils % (A) 1 %; CHCM 32.6; Eosinophils # (A) 0.2 k/uL (0-0.7); Eosinophils % (A) 4 %; HCT 34.5 % (34.0-46.0); HDW 2.84; HGB 11.1 gm/dL (11.4-16.0); Luc # (Auto) 0.09; Luc % (Auto) 2; Lymphocytes # (A) 0.6 k/uL (1.0-4.8); Lymphocytes % (A) 12 %; MCH 33.7 pg (25.0-35.0); MCHC 32.2 g/dL (31.0-37.0); MCV 104.6 fL (80.0-100.0); Macrocytosis Moderate; Monocytes # (A) 0.4 k/uL (0-1.0); Monocytes % (A) 8 %; Neutrophils # (A) 3.5 k/uL (1.3-7.7); Neutrophils % (A) 74 %; RBC 3.29 m/uL (3.80-5.40); WBC 4.7 k/uL (3.8-10.6); WBC (Perox) 5.25
[2016-08-23 13:38] LABS: INR 1.1 (<1.1); Prothrombin Time 10.9 sec (9.0-12.0)
--- NOTE | 2016-08-23 14:09 | XR ---
EXAMINATION TYPE: XR abdomen 2V DATE OF EXAM: 08/23/2016 1:43 PM COMPARISON: 07/28/2016 INDICATION: Abdomen pain, recent colostomy TECHNIQUE: Abdomen is examined in the supine and upright FINDINGS: There is a normal bowel gas pattern. No free air is evident. No suspicious air-fluid levels or differ ential air-fluid levels are present. Psoas margins are normal. No organomegaly is present. There is a 1.0 x 2.7 cm calcification over the mid right kidney. IMPRESSION: 1. Right renal calculus.
[2016-08-23 14:17] LABS: ALT 26 U/L (9-52); AST 26 U/L (14-36); Alkaline Phosphatase 80 U/L (38-126); Amylase <30 U/L (30-110); Anion Gap 8 mmol/L; Blood Urea Nitrogen 11 mg/dL (7-17); Calcium 8.1 mg/dL (8.4-10.2); Carbon Dioxide 28 mmol/L (22-30); Chloride 101 mmol/L (98-107); Glucose 98 mg/dL (74-99); Non-African American GFR(MDRD) >60 (>60 ml/min/1.73 sqM); Sodium 137 mmol/L (137-145); Total Bilirubin 0.8 mg/dL (0.2-1.3); Total Protein 5.8 g/dL (6.3-8.2)
[2016-08-23] MEDS ORDERED: HYDROmorphone 1 MG/ML 1 ML SYRINGE IVP STA (15:53)
[2016-08-23] MEDS ORDERED: RX INFO: IV CONTRAST WAS GIVEN 1 EACH MISC MISCELLANE PRN (16:32)
[2016-08-23] MEDS ORDERED: IOHEXOL 350 MG/ML 25 ML BOTTLE (ORAL USE) PO PRN (16:32)
--- NOTE | 2016-08-23 17:42 | CT ---
EXAMINATION TYPE: CT abdomen pelvis w con DATE OF EXAM: 08/23/2016 5:19 PM COMPARISON: NONE INDICATION: Generalized pain with nuasea. Post OP Colostomy DLP: 1238.1 mGycm, Automated exposure control for dose reduction was used. CONTRAST: 100 mL of Omnipaque 300. Study performed without Oral Contrast TECHNIQUE: Axial images were obtained from above the diaphragm to the pubic rami in the axial plane a t 5 mm thick sections. Reconstructed images are reviewed on the computer in the coronal plane. FINDINGS: Limited CT sections are obtained the lung bases. Small consolidation or atelectasis may be in the an terior right middle lobe on the initial image. Some additional increased densities within the anterio r right middle lobe with a tiny 0.5 cm nodule. Series 4 image 5. Mild atelectasis is at the anterior and dependent left lung base. Moderate-sized hiatal hernia is present.. CT ABDOMEN: Liver: Normal Spleen: Normal Pancreas: Normal Adrenal glands: The adrenal glands are normal. Gallbladder: Normal Kidneys: No masses are evident. No hydronephrosis is present. No cysts are present. Delayed images were obtained through the kidneys, which remain unremarkable. Aorta: Vascular calcification is within the aorta. Inferior vena cava: Normal. CT PELVIS: There is a colostomy in the left lower quadrant. Some inflammatory change adjacent to colostomy site is evident. No dilated loops of bowel are evident within the abdomen or within the colostomy site. Appendix: May be surgically absent. No discrete appendix is identified. Urinary bladder: Normal. Genitourinary structures: Uterus is atrophic. Adnexal regions are clear. Osseous structures: No suspicious lytic or sclerotic lesions. IMPRESSIONS: 1. Mild inflammatory change inferior to the colostomy site may be postsurgical in nature. 2. No abnormal dilated loops of bowel. 3. Actasis right middle lobe
[2016-08-23 18:31] VITALS: BP 144/68; PULSE 94
== END 2016-08-23 19:18 | disposition home or self-care (01) ==
LOC: EC 11:39
DX: R10.12 Left upper quadrant pain (principal); N20.0 Calculus of kidney; G89.29 Other chronic pain; M54.9 Dorsalgia, unspecified; K21.9 Gastro-esophageal reflux disease without esophagitis; J44.9 Chronic obstructive pulmonary disease, unspecified; J45.909 Unspecified asthma, uncomplicated; Z90.49 Acquired absence of other specified parts of digestive tract; Z93.3 Colostomy status; Z88.8 Allergy status to other drugs, medicaments and biological substances; Z79.51 Long term (current) use of inhaled steroids; Z79.899 Other long term (current) drug therapy
CPT/HCPCS: 99285; 96374; 96361 ×6; 36415; 80053; 82150; 83605; 83690; 85025; 85610; 74020; 74177; J1170; Q9967

== ENCOUNTER 2016-09-27 13:13 | Emergency (ER) | payer MEDICARE, BC ==
[2016-09-27 13:21] VITALS: RESP 18; TEMP 97.4
[2016-09-27 14:52] LABS: Anisocytosis Slight; Basophils % (A) 0 %; CH 33.6; CHCM 32.1; Eosinophils # (A) 0.1 k/uL (0-0.7); Eosinophils % (A) 1 %; HCT 40.4 % (34.0-46.0); HDW 2.52; HGB 12.9 gm/dL (11.4-16.0); Luc # (Auto) 0.04; Luc % (Auto) 1; Lymphocytes # (A) 0.4 k/uL (1.0-4.8); Lymphocytes % (A) 6 %; MCH 33.5 pg (25.0-35.0); MCHC 31.9 g/dL (31.0-37.0); MCV 104.9 fL (80.0-100.0); Macrocytosis Moderate; Mean Platelet Volume 6.5; Monocytes # (A) 0.3 k/uL (0-1.0); Monocytes % (A) 4 %; Neutrophils # (A) 6.8 k/uL (1.3-7.7); Neutrophils % (A) 89 %; RBC 3.85 m/uL (3.80-5.40); RDW 16.1 % (11.5-15.5); WBC 7.6 k/uL (3.8-10.6); WBC (Perox) 7.92
[2016-09-27 14:57] LABS: ALT 38 U/L (9-52); AST 24 U/L (14-36); Alkaline Phosphatase 80 U/L (38-126); Anion Gap 11 mmol/L; Blood Urea Nitrogen 14 mg/dL (7-17); Carbon Dioxide 24 mmol/L (22-30); Chloride 103 mmol/L (98-107); Glucose 99 mg/dL (74-99); Non-African American GFR(MDRD) >60 (>60 ml/min/1.73 sqM); Potassium 3.7 mmol/L (3.5-5.1); Sodium 138 mmol/L (137-145); Total Bilirubin 0.5 mg/dL (0.2-1.3); Total Protein 6.2 g/dL (6.3-8.2)
--- NOTE | 2016-09-27 15:01 | XR ---
EXAMINATION TYPE: XR chest 2V DATE OF EXAM: 09/27/2016 COMPARISON: Chest x-ray August 05, 2016. CT abdomen pelvis August 23, 2016. HISTORY: Chest pain. History of asthma and cancer. TECHNIQUE: Frontal and lateral views of the chest are obtained. FINDINGS: There is chronic parenchymal change without suspicious new focal air space opacity, pleura l effusion, or pneumothorax seen. There is chronic thickening right paratracheal stripe redemonstrate d. The cardiac silhouette size remains enlarged. The osseous structures are intact. IMPRESSION: Chronic changes without acute pulmonary process.
--- NOTE | 2016-09-27 15:31 | ED ---
Extremity Problem HPI - General Chief complaint: Extremity Problem,Nontraumatic Stated complaint: Leg swelling/pain/bruising & arm bruising Source: patient Mode of arrival: wheelchair Limitations: no limitations - History of Present Illness Initial comments: Patient is a 66-year-old female who presents for evaluation for bilateral lower extremity swelling and multiple skin tears to her right lower extremity. Past medical history as below. Patient stated that she fell a week ago and sustained a couple skin tears to her right lower charities. She stated that she 's had progressively worsening swelling to her lower chimneys bilaterally over the course of the week. No recent long-distance travel or car or plane. No history of DVTs or pulmonary embolisms. She does have a history of possible CHF. She is currently on eliquis due to her history of atrial fibrillation. She is followed by a home nurse who recommended coming in for evaluation for the bilateral lower chimneys swelling. She can't really without difficulty. She denies any fever, chills, headache, changes of vision, URI symptoms, shortness breath, cough, chest pain, nausea or vomiting, diarrhea, pain or burning with urination. - Related Data Home Medications Medication Instructions Recorded Confirmed Albuterol Nebulized [Ventolin 2.5 mg INHALATION RT-BID 07/22/16 09/27/16 Nebulized] Albuterol Sulfate [Proventil Hfa] 2 puff INHALATION RT-Q6H PRN 07/22/16 09/27/16 Budesonide/Formoterol Fumarate 2 puff INHALATION RT-BID 07/22/16 09/27/16 [Symbicort 160-4.5 Mcg Inhaler] Montelukast [Singulair] 10 mg PO HS 07/22/16 09/27/16 Omeprazole 20 mg PO BID 07/22/16 09/27/16 HYDROcodone/APAP 7.5-325MG [[place] 1 tab PO Q6H PRN 08/23/16 09/27/16 7.5-325] Apixaban [Eliquis] 5 mg PO BID 09/27/16 09/27/16 Cyclobenzaprine [Flexeril] 5 mg PO BID 09/27/16 09/27/16 Diltiazem HCl [Diltiazem ER] 180 mg PO DAILY 09/27/16 09/27/16 Flecainide [Tambocor] 50 mg PO Q12HR 09/27/16 09/27/16 Gabapentin [Neurontin] 100 mg PO DAILY 09/27/16 09/27/16 Gabapentin [Neurontin] 200 mg PO HS 09/27/16 09/27/16 Lidocaine 5% Patch [Lidoderm] 1 patch TOPICAL DAILY 09/27/16 09/27/16 traMADol HCL [Ultram] 50 mg PO Q6H PRN 09/27/16 09/27/16 Previous Rx's Medication Instructions Recorded Cephalexin [Keflex] 500 mg PO Q6HR #20 cap 09/27/16 Allergies Allergy/AdvReac Type Severity Reaction Status Date / Time furosemide [From Lasix] Allergy Rash/Hives Verified 09/27/16 14:13 Review of Systems ROS Statement: Those systems with pertinent positive or pertinent negative responses have been documented in the HPI. ROS Other: All systems not noted in ROS Statement are negative. Past Medical History Past Medical History: Asthma, Cancer, GERD/Reflux Additional Past Medical History / Comment(s): Bronchial asthma, compression fracture of the T-spine, osteoporosis, skin cancer, history of sepsis of urinary source, sigmoid diverticulosis, compression fracture of the L2 spine, compression fracture of the T12 spine, compression fracture of the T7 spine History of Any Multi-Drug Resistant Organisms: None Reported Past Surgical History: Appendectomy, Bowel Resection, Tubal Ligation Additional Past Surgical History / Comment(s): CATARACT LEFT EYE WITH REPAIR OF MACULAR HOLE. Colonoscopy, 2014. bowel resection with colostomy Past Anesthesia/Blood Transfusion Reactions: No Reported Reaction Past Psychological History: No Psychological Hx Reported Smoking Status: Never smoker Past Alcohol Use History: Occasional Past Drug Use History: None Reported - Past Family History Mother Family Medical History: Cancer Additional Family Medical History / Comment(s): COLON CANCER in Mother General Exam Limitations: no limitations General appearance: alert, in no apparent distress, other (No acute distress) Head exam: Present: atraumatic, normocephalic, normal inspection Eye exam: Present: normal appearance, PERRL, EOMI. Absent: scleral icterus, conjunctival injection, periorbital swelling ENT exam: Present: normal exam, mucous membranes moist Neck exam: Present: normal inspection, other (Normal S1 and S2. No murmurs. No JVD.). Absent: tenderness, meningismus, lymphadenopathy Respiratory exam: Present: normal lung sounds bilaterally, other (Clear bilaterally without wheezes rales or rhonchi). Absent: respiratory distress, wheezes, rales, rhonchi, stridor Cardiovascular Exam: Present: regular rate, normal rhythm, normal heart sounds. Absent: systolic murmur, diastolic murmur, rubs, gallop, clicks GI/Abdominal exam: Present: soft, normal bowel sounds. Absent: distended, tenderness, guarding, rebound, rigid Extremities exam: Present: normal inspection, full ROM, normal capillary refill , other (Bilateral lower extremity swelling. No pitting edema. Multiple superficial skin tears in the right lower extremity that are covered in Tegaderm. No posterior calf tenderness. Distal pulses are intact.). Absent: tenderness, pedal edema, joint swelling, calf tenderness Back exam: Present: normal inspection Neurological exam: Present: alert, oriented X3, CN II-XII intact Psychiatric exam: Present: normal affect, normal mood Skin exam: Present: warm, dry, intact, normal color. Absent: rash Course Vital Signs 09/27/16 13:16 Temperature 97.4 F L Pulse Rate 90 Respiratory 18 Rate Blood Pressure 126/60 O2 Sat by Pulse 96 Oximetry Medical Decision Making - Medical Decision Making Patient presents for evaluation for bilateral lower chimneys swelling that is because we worsening over the last week with multiple skin tears to the right lower extremity. Physical exam is largely unremarkable except for mild bilateral lower extremity swelling. We'll order cardiac labs with venous duplex , chest x-ray. 1620: Lavatory findings as below. Largely unremarkable. Troponin negative. BNP less than 500. Reviewed her EKG at 1630 which revealed normal sinus rhythm without ST changes. Similar to her previous EKG. I reviewed her venous duplex and chest x-ray which revealed no acute process. There is no evidence of an acute DVT. Had a lengthy discussion with the patient at bedside. Encourage close follow-up with her primary care physician. Patient admitted that she used to be on a water pill but is no longer on a water pill. Her primary care physician prescribes this to her. We'll call her primary care physician office tomorrow or early Friday morning for follow-up. If leg swelling persists, will need a repeat ultrasound which was discussed with the patient. In the interim, we'll discharge home with Keflex for multiple skin tears on the right lower extremity. Hemodynamically stable. All questions answered. Discussed signs and symptoms on when to return to emergency department for further evaluation. Comfortable with discharge home and will follow-up. - Lab Data Result diagrams: 09/27/16 14:35 09/27/16 14:35 Lab Results 09/27/16 09/27/16 09/27/16 Range/Units 14:35 14:35 14:35 WBC 7.6 (3.8-10.6) k/uL RBC 3.85 (3.80-5.40) m/uL Hgb 12.9 (11.4-16.0) gm/dL Hct 40.4 (34.0-46.0) % MCV 104.9 H (80.0-100.0) fL MCH 33.5 (25.0-35.0) pg MCHC 31.9 (31.0-37.0) g/dL RDW 16.1 H (11.5-15.5) % Plt Count 245 (150-450) k/uL Neutrophils % 89 % Lymphocytes % 6 % Monocytes % 4 % Eosinophils % 1 % Basophils % 0 % Neutrophils # 6.8 (1.3-7.7) k/uL Lymphocytes # 0.4 L (1.0-4.8) k/uL Monocytes # 0.3 (0-1.0) k/uL Eosinophils # 0.1 (0-0.7) k/uL Basophils # 0.0 (0-0.2) k/uL Anisocytosis Slight Macrocytosis Moderate Sodium 138 (137-145) mmol/L Potassium 3.7 (3.5-5.1) mmol/L Chloride 103 (98-107) mmol/L Carbon Dioxide 24 (22-30) mmol/L Anion Gap 11 mmol/L BUN 14 (7-17) mg/dL Creatinine 0.70 (0.52-1.04) mg/dL Est GFR (MDRD) Af Amer >60 (>60 ml/min/1.73 sqM) Est GFR (MDRD) Non-Af >60 (>60 ml/min/1.73 sqM) Glucose 99 (74-99) mg/dL Plasma Lactic Acid Cullen 0.9 (0.7-2.0) mmol/L Calcium 9.0 (8.4-10.2) mg/dL Total Bilirubin 0.5 (0.2-1.3) mg/dL AST 24 (14-36) U/L ALT 38 (9-52) U/L Alkaline Phosphatase 80 (38-126) U/L Troponin I (0.000-0.034) ng/mL NT-Pro-B Natriuret Pep pg/mL Total Protein 6.2 L (6.3-8.2) g/dL Albumin 3.7 (3.5-5.0) g/dL 09/27/16 09/27/16 Range/Units 14:35 14:35 WBC (3.8-10.6) k/uL RBC (3.80-5.40) m/uL Hgb (11.4-16.0) gm/dL Hct (34.0-46.0) % MCV (80.0-100.0) fL MCH (25.0-35.0) pg MCHC (31.0-37.0) g/dL RDW (11.5-15.5) % Plt Count (150-450) k/uL Neutrophils % % Lymphocytes % % Monocytes % % Eosinophils % % Basophils % % Neutrophils # (1.3-7.7) k/uL Lymphocytes # (1.0-4.8) k/uL Monocytes # (0-1.0) k/uL Eosinophils # (0-0.7) k/uL Basophils # (0-0.2) k/uL Anisocytosis Macrocytosis Sodium (137-145) mmol/L Potassium (3.5-5.1) mmol/L Chloride (98-107) mmol/L Carbon Dioxide (22-30) mmol/L Anion Gap mmol/L BUN (7-17) mg/dL Creatinine (0.52-1.04) mg/dL Est GFR (MDRD) Af Amer (>60 ml/min/1.73 sqM) Est GFR (MDRD) Non-Af (>60 ml/min/1.73 sqM) Glucose (74-99) mg/dL Plasma Lactic Acid Cullen (0.7-2.0) mmol/L Calcium (8.4-10.2) mg/dL Total Bilirubin (0.2-1.3) mg/dL AST (14-36) U/L ALT (9-52) U/L Alkaline Phosphatase (38-126) U/L Troponin I <0.012 (0.000-0.034) ng/mL NT-Pro-B Natriuret Pep 243 pg/mL Total Protein (6.3-8.2) g/dL Albumin (3.5-5.0) g/dL Disposition Clinical Impression: Skin tear, Leg swelling Disposition: HOME SELF-CARE Condition: Fair Instructions: Leg Edema (ED) Prescriptions: Cephalexin [Keflex] 500 mg PO Q6HR #20 cap Referrals: Lindsey Price MD [Primary Care Provider] - 1-2 days
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
[2016-09-27 16:40] VITALS: BP 105/54; PULSE 78
== END 2016-09-27 16:48 | disposition home or self-care (01) ==
LOC: SUPCPDRO 13:13 → EC 13:13
DX: M79.89 Other specified soft tissue disorders (principal); S81.811D Laceration without foreign body, right lower leg, subsequent encounter; J45.909 Unspecified asthma, uncomplicated; K21.9 Gastro-esophageal reflux disease without esophagitis; I48.91 Unspecified atrial fibrillation; Z79.51 Long term (current) use of inhaled steroids; Z79.899 Other long term (current) drug therapy; Z88.8 Allergy status to other drugs, medicaments and biological substances; W19.XXXD Unspecified fall, subsequent encounter
CPT/HCPCS: 36415; 71020; 80053; 83605; 83880; 84484; 85025; 93970; 99284

== ENCOUNTER 2016-10-20 04:51 | Emergency (ER) | payer MEDICARE, BC ==
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
[2016-10-20 05:36] LABS: Basophils # (A) 0.1 k/uL (0-0.2); Basophils % (A) 1 %; CH 33.3; CHCM 32.6; Eosinophils # (A) 0.1 k/uL (0-0.7); Eosinophils % (A) 2 %; HCT 42.1 % (34.0-46.0); HDW 2.76; HGB 13.5 gm/dL (11.4-16.0); Luc # (Auto) 0.11; Luc % (Auto) 1; Lymphocytes # (A) 1.3 k/uL (1.0-4.8); Lymphocytes % (A) 15 %; MCH 32.9 pg (25.0-35.0); MCHC 32.1 g/dL (31.0-37.0); MCV 102.4 fL (80.0-100.0); Macrocytosis Slight; Mean Platelet Volume 7.7; Monocytes # (A) 0.8 k/uL (0-1.0); Monocytes % (A) 9 %; Neutrophils # (A) 6.1 k/uL (1.3-7.7); Neutrophils % (A) 72 %; RBC 4.11 m/uL (3.80-5.40); RDW 15.4 % (11.5-15.5); WBC 8.5 k/uL (3.8-10.6); WBC (Perox) 8.24
[2016-10-20 05:47] LABS: ALT 29 U/L (9-52); AST 28 U/L (14-36); Alkaline Phosphatase 65 U/L (38-126); Amylase 56 U/L (30-110); Anion Gap 11 mmol/L; Blood Urea Nitrogen 16 mg/dL (7-17); Calcium 9.2 mg/dL (8.4-10.2); Carbon Dioxide 26 mmol/L (22-30); Chloride 101 mmol/L (98-107); Glucose 68 mg/dL (74-99); Non-African American GFR(MDRD) >60 (>60 ml/min/1.73 sqM); Potassium 3.4 mmol/L (3.5-5.1); Sodium 138 mmol/L (137-145); Total Bilirubin 0.6 mg/dL (0.2-1.3); Total Protein 6.2 g/dL (6.3-8.2)
--- NOTE | 2016-10-20 06:32 | CT ---
EXAM: CT Abdomen and Pelvis Without Intravenous Contrast CLINICAL HISTORY: Reason: Pain TECHNIQUE: Axial computed tomography images of the abdomen and pelvis without intravenous contrast. CTDI is 19.3 mGy and DLP is 894.6 mGy-cm. This CT exam was performed using one or more of the following dose reduction techniques: automated exposure control, adjustment of the mA and/or kV according to patient size, and/or use of iterative reconstruction technique. COMPARISON: CT 08/23/16. FINDINGS: Lower thorax: Bibasilar atelectatic changes. Moderate hiatal hernia. ABDOMEN: Liver: Unremarkable. Gallbladder and bile ducts: Mildly distended gallbladder. Pancreas: Unremarkable. Spleen: Unremarkable. Adrenals: Unremarkable. Kidneys and ureters: Nephrolithiasis with a 4 mm stone in the proximal right ureter. No significant hydronephrosis. Stomach and bowel: Postsurgical changes in the pelvis with interval improvement in previously seen adjacent fluid and stranding and persistent foci of possible extraluminal air. Left lower quadrant ostomy with improvement in surrounding fat stranding. Diverticulosis. No significant bowel distension to suggest obstruction. PELVIS: Bladder: Unremarkable. Reproductive: Unremarkable as visualized. ABDOMEN and PELVIS: Intraperitoneal space: See above. Bones/joints: Multiple compression deformities in the spine appear unchanged. Soft tissues: Unremarkable. Vasculature: Atherosclerotic disease. Lymph nodes: Small nonspecific mesenteric and retroperitoneal lymph nodes. IMPRESSION: 1. Nephrolithiasis with a 4 mm stone in the proximal right ureter. No significant hydronephrosis. 2. Postsurgical changes in the pelvis with interval improvement in previously seen adjacent fluid and stranding and persistent foci of possible extraluminal air. Left lower quadrant ostomy with improvement in surrounding fat stranding. 3. Additional findings, as above.
[2016-10-20] MEDS ORDERED: MORPHINE SULFATE 4 MG/ML SYRINGE IV STA (06:41)
[2016-10-20] MEDS ORDERED: TAMSULOSIN 0.4 MG CAP.ER.24H PO STA (07:13)
[2016-10-20 08:07] LABS: Appearance,Urine Clear (Clear); Bacteria,Urine Rare /hpf; Bilirubin,Urine Negative (Negative); Glucose,Urine (UA) Negative (Negative); Ketones,Urine 2+ (Negative); Leukocyte Esterase,Urine Large (Negative); Mucus,Urine Rare /hpf; Nitrite,Urine Negative (Negative); Particle Count 2629; Protein,Urine Trace (Negative); RBC,Urine 117 /hpf (0-5); Specific Gravity,Urine 1.012 (1.001-1.035); Squamous Epithelial Cell,Urine <1 /hpf (0-4); UA Billing (MACRO vs. MICRO) MICRO; Urobilinogen,Urine <2.0 mg/dL (<2.0); WBC,Urine 138 /hpf (0-5)
[2016-10-20 08:38] VITALS: BP 145/67; PULSE 80; RESP 18; TEMP 97.1
== END 2016-10-20 08:38 | disposition home or self-care (01) ==
LOC: EC 04:51
DX: N20.0 Calculus of kidney (principal); J45.909 Unspecified asthma, uncomplicated; K21.9 Gastro-esophageal reflux disease without esophagitis; Z85.828 Personal history of other malignant neoplasm of skin; Z90.49 Acquired absence of other specified parts of digestive tract; Z87.19 Personal history of other diseases of the digestive system; Z88.8 Allergy status to other drugs, medicaments and biological substances; Z79.51 Long term (current) use of inhaled steroids; Z79.02 Long term (current) use of antithrombotics/antiplatelets; Z79.899 Other long term (current) drug therapy
CPT/HCPCS: 99284; 96374; 36415; 80053; 82150; 83605; 83690; 84484; 85025; 81001; 74176; J2270

== ENCOUNTER 2016-10-21 15:00 | Inpatient (IN) | payer BC, MEDICARE ==
[2016-10-21 15:39] LABS: Basophils % (A) 1 %; CH 32.9; CHCM 32.7; Eosinophils # (A) 0.2 k/uL (0-0.7); Eosinophils % (A) 3 %; HCT 42.2 % (34.0-46.0); HDW 2.83; HGB 13.7 gm/dL (11.4-16.0); Luc # (Auto) 0.08; Luc % (Auto) 1; Lymphocytes # (A) 1.6 k/uL (1.0-4.8); Lymphocytes % (A) 22 %; MCH 32.7 pg (25.0-35.0); MCHC 32.4 g/dL (31.0-37.0); MCV 100.9 fL (80.0-100.0); Macrocytosis Slight; Mean Platelet Volume 7.2; Monocytes # (A) 0.5 k/uL (0-1.0); Monocytes % (A) 8 %; Neutrophils # (A) 4.5 k/uL (1.3-7.7); Neutrophils % (A) 65 %; RBC 4.19 m/uL (3.80-5.40); RDW 15.4 % (11.5-15.5); WBC 6.9 k/uL (3.8-10.6); WBC (Perox) 6.87
[2016-10-21] MEDS ORDERED: HYDROmorphone 1 MG/ML 1 ML SYRINGE IVP STA (15:43)
[2016-10-21] MEDS ORDERED: ONDANSETRON 4 MG/2 ML VIAL IVP STA (15:43)
[2016-10-21] MEDS ORDERED: SODIUM CHLORIDE 0.9% 1,000 ML IV ONE (15:43)
[2016-10-21 15:56] LABS: ALT 23 U/L (9-52); AST 21 U/L (14-36); Alkaline Phosphatase 66 U/L (38-126); Amylase 43 U/L (30-110); Anion Gap 11 mmol/L; Blood Urea Nitrogen 11 mg/dL (7-17); Calcium 8.7 mg/dL (8.4-10.2); Carbon Dioxide 26 mmol/L (22-30); Chloride 100 mmol/L (98-107); Glucose 61 mg/dL (74-99); Non-African American GFR(MDRD) >60 (>60 ml/min/1.73 sqM); Potassium 3.2 mmol/L (3.5-5.1); Sodium 137 mmol/L (137-145); Total Bilirubin 0.5 mg/dL (0.2-1.3); Total Protein 5.6 g/dL (6.3-8.2)
--- NOTE | 2016-10-21 16:09 | ED ---
Back Pain HPI - General Chief Complaint: Back Pain/Injury Stated Complaint: Poss Kidney Stones, Back Pain Time Seen by Provider: 10/21/16 15:09 Source: patient, RN notes reviewed Limitations: no limitations - History of Present Illness Initial Comments: Patient is a 66-year-old female presents to the emergency room for evaluation of back pain. Patient states she was here yesterday with flank pain. Patient states she was told she had a kidney stone. Patient states that they pumped her with pain medications and sent her home. Patient states that she still continuing to have flank pain. Patient states that she is unable to eat anything due to no appetite. Patient states she feels like she should not have been discharged. Patient states she has history of colostomy bag placement by Dr. Herndon from perforated bowel. Patient states she has a follow-up appointment with Dr. Herndon tomorrow. Patient denies burning during urination. Patient denies fevers or chills. Patient denies chest pain or shortness of breath. Patient denies headache or dizziness. - Related Data Home Medications Medication Instructions Recorded Confirmed Albuterol Nebulized [Ventolin 2.5 mg INHALATION RT-BID 07/22/16 10/21/16 Nebulized] Albuterol Sulfate [Proventil Hfa] 2 puff INHALATION RT-Q6H PRN 07/22/16 10/21/16 Budesonide/Formoterol Fumarate 2 puff INHALATION RT-BID 07/22/16 10/21/16 [Symbicort 160-4.5 Mcg Inhaler] Montelukast [Singulair] 10 mg PO HS 07/22/16 10/21/16 Omeprazole 20 mg PO BID 07/22/16 10/21/16 HYDROcodone/APAP 7.5-325MG [[place] 1 tab PO Q6H PRN 08/23/16 10/21/16 7.5-325] Apixaban [Eliquis] 5 mg PO BID 09/27/16 10/21/16 Cyclobenzaprine [Flexeril] 5 mg PO BID 09/27/16 10/21/16 Flecainide [Tambocor] 50 mg PO Q12HR 09/27/16 10/21/16 Gabapentin [Neurontin] 100 mg PO DAILY 09/27/16 10/21/16 Gabapentin [Neurontin] 200 mg PO HS 09/27/16 10/21/16 Lidocaine 5% Patch [Lidoderm] 1 patch TOPICAL DAILY 09/27/16 10/21/16 traMADol HCL [Ultram] 50 mg PO Q6H PRN 09/27/16 10/21/16 Acetaminophen Tab [Tylenol Tab] 500 mg PO Q6H PRN 10/21/16 10/21/16 Diltiazem HCl [Cartia Xt] 180 mg PO DAILY 10/21/16 10/21/16 predniSONE 10 mg PO DAILY 10/21/16 10/21/16 Allergies Allergy/AdvReac Type Severity Reaction Status Date / Time furosemide [From Lasix] Allergy Rash/Hives Verified 10/21/16 16:33 Review of Systems ROS Statement: Those systems with pertinent positive or pertinent negative responses have been documented in the HPI. ROS Other: All systems not noted in ROS Statement are negative. Past Medical History Past Medical History: Asthma, Cancer, GERD/Reflux Additional Past Medical History / Comment(s): Bronchial asthma, compression fracture of the T-spine, osteoporosis, skin cancer, history of sepsis of urinary source, sigmoid diverticulosis, compression fracture of the L2 spine, compression fracture of the T12 spine, compression fracture of the T7 spine History of Any Multi-Drug Resistant Organisms: None Reported Past Surgical History: Appendectomy, Bowel Resection, Tubal Ligation Additional Past Surgical History / Comment(s): CATARACT LEFT EYE WITH REPAIR OF MACULAR HOLE. Colonoscopy, 2015. bowel resection with colostomy Past Anesthesia/Blood Transfusion Reactions: No Reported Reaction Past Psychological History: No Psychological Hx Reported Smoking Status: Never smoker Past Alcohol Use History: Occasional Past Drug Use History: None Reported - Past Family History Mother Family Medical History: Cancer Additional Family Medical History / Comment(s): COLON CANCER in Mother General Exam - General Exam Comments Initial Comments: Laying in exam room, no distress. Limitations: no limitations General appearance: alert, in no apparent distress Head exam: Present: atraumatic, normocephalic, normal inspection Eye exam: Present: normal appearance ENT exam: Present: normal exam Neck exam: Present: normal inspection Respiratory exam: Present: normal lung sounds bilaterally. Absent: respiratory distress Cardiovascular Exam: Present: regular rate, normal rhythm, normal heart sounds GI/Abdominal exam: Present: soft. Absent: distended, tenderness, guarding, rebound, rigid Extremities exam: Present: normal inspection Back exam: Present: normal inspection, CVA tenderness (R), CVA tenderness (L) Neurological exam: Present: alert, oriented X3, CN II-XII intact Psychiatric exam: Present: normal affect, normal mood Skin exam: Present: warm, dry, intact, normal color. Absent: rash Course Vital Signs 10/21/16 10/21/16 15:12 17:15 Temperature 98.3 F 97.5 F L Pulse Rate 98 93 Respiratory 18 18 Rate Blood Pressure 158/67 144/67 O2 Sat by Pulse 98 96 Oximetry Medical Decision Making - Medical Decision Making Patient is 66-year-old female presents to the emergency room for evaluation of flank pain. Patient was here yesterday and diagnosed with kidney stone. Patient does appear to have a urinary tract infection. Possible infected kidney stone. Case discussed with Dr. James. Dr. James also evaluated patient and discussed case with Dr. Peres agreed to admit patient. Patient started on Rocephin. - Lab Data Result diagrams: 10/21/16 15:07 10/21/16 15:07 Lab Results 10/21/16 10/21/16 10/21/16 Range/Units 15:07 15:07 15:07 WBC 6.9 (3.8-10.6) k/uL RBC 4.19 (3.80-5.40) m/uL Hgb 13.7 (11.4-16.0) gm/dL Hct 42.2 (34.0-46.0) % MCV 100.9 H (80.0-100.0) fL MCH 32.7 (25.0-35.0) pg MCHC 32.4 (31.0-37.0) g/dL RDW 15.4 (11.5-15.5) % Plt Count 280 (150-450) k/uL Neutrophils % 65 % Lymphocytes % 22 % Monocytes % 8 % Eosinophils % 3 % Basophils % 1 % Neutrophils # 4.5 (1.3-7.7) k/uL Lymphocytes # 1.6 (1.0-4.8) k/uL Monocytes # 0.5 (0-1.0) k/uL Eosinophils # 0.2 (0-0.7) k/uL Basophils # 0.0 (0-0.2) k/uL Macrocytosis Slight Sodium 137 (137-145) mmol/L Potassium 3.2 L (3.5-5.1) mmol/L Chloride 100 (98-107) mmol/L Carbon Dioxide 26 (22-30) mmol/L Anion Gap 11 mmol/L BUN 11 (7-17) mg/dL Creatinine 0.63 (0.52-1.04) mg/dL Est GFR (MDRD) Af Amer >60 (>60 ml/min/1.73 sqM) Est GFR (MDRD) Non-Af >60 (>60 ml/min/1.73 sqM) Glucose 61 L (74-99) mg/dL Calcium 8.7 (8.4-10.2) mg/dL Total Bilirubin 0.5 (0.2-1.3) mg/dL AST 21 (14-36) U/L ALT 23 (9-52) U/L Alkaline Phosphatase 66 (38-126) U/L Total Protein 5.6 L (6.3-8.2) g/dL Albumin 3.4 L (3.5-5.0) g/dL Amylase 43 (30-110) U/L Lipase 95 (23-300) U/L Urine Color Urine Appearance (Clear) Urine pH (5.0-8.0) Ur Specific [place] (1.001-1.035) Urine Protein (Negative) Urine Glucose (UA) (Negative) Urine Ketones (Negative) Urine Blood (Negative) Urine Nitrite (Negative) Urine Bilirubin (Negative) Urine Urobilinogen (<2.0) mg/dL Ur Leukocyte Esterase (Negative) Urine RBC (0-5) /hpf Urine WBC (0-5) /hpf Urine WBC Clumps (None) /hpf Ur Squamous Epith Cells (0-4) /hpf Urine Mucus (None) /hpf 10/21/16 Range/Units 16:19 WBC (3.8-10.6) k/uL RBC (3.80-5.40) m/uL Hgb (11.4-16.0) gm/dL Hct (34.0-46.0) % MCV (80.0-100.0) fL MCH (25.0-35.0) pg MCHC (31.0-37.0) g/dL RDW (11.5-15.5) % Plt Count (150-450) k/uL Neutrophils % % Lymphocytes % % Monocytes % % Eosinophils % % Basophils % % Neutrophils # (1.3-7.7) k/uL Lymphocytes # (1.0-4.8) k/uL Monocytes # (0-1.0) k/uL Eosinophils # (0-0.7) k/uL Basophils # (0-0.2) k/uL Macrocytosis Sodium (137-145) mmol/L Potassium (3.5-5.1) mmol/L Chloride (98-107) mmol/L Carbon Dioxide (22-30) mmol/L Anion Gap mmol/L BUN (7-17) mg/dL Creatinine (0.52-1.04) mg/dL Est GFR (MDRD) Af Amer (>60 ml/min/1.73 sqM) Est GFR (MDRD) Non-Af (>60 ml/min/1.73 sqM) Glucose (74-99) mg/dL Calcium (8.4-10.2) mg/dL Total Bilirubin (0.2-1.3) mg/dL AST (14-36) U/L ALT (9-52) U/L Alkaline Phosphatase (38-126) U/L Total Protein (6.3-8.2) g/dL Albumin (3.5-5.0) g/dL Amylase (30-110) U/L Lipase (23-300) U/L Urine Color Yellow Urine Appearance Cloudy H (Clear) Urine pH 6.5 (5.0-8.0) Ur Specific [place] 1.014 (1.001-1.035) Urine Protein Trace H (Negative) Urine Glucose (UA) Negative (Negative) Urine Ketones 3+ H (Negative) Urine Blood Moderate H (Negative) Urine Nitrite Negative (Negative) Urine Bilirubin Negative (Negative) Urine Urobilinogen <2.0 (<2.0) mg/dL Ur Leukocyte Esterase Large H (Negative) Urine RBC 19 H (0-5) /hpf Urine WBC >182 H (0-5) /hpf Urine WBC Clumps Many H (None) /hpf Ur Squamous Epith Cells 7 H (0-4) /hpf Urine Mucus Rare H (None) /hpf Disposition Clinical Impression: Kidney stone, Urinary tract infection Disposition: ADMITTED IP TO THIS [facility] Condition: Stable Decision Date: 10/21/16
[2016-10-21 16:29] LABS: Appearance,Urine Cloudy (Clear); Bilirubin,Urine Negative (Negative); Glucose,Urine (UA) Negative (Negative); Ketones,Urine 3+ (Negative); Leukocyte Esterase,Urine Large (Negative); Mucus,Urine Rare /hpf; Nitrite,Urine Negative (Negative); PH, Urine 6.5 (5.0-8.0); Particle Count 11578; Protein,Urine Trace (Negative); RBC,Urine 19 /hpf (0-5); Specific Gravity,Urine 1.014 (1.001-1.035); Squamous Epithelial Cell,Urine 7 /hpf (0-4); UA Billing (MACRO vs. MICRO) MICRO; Urobilinogen,Urine <2.0 mg/dL (<2.0); WBC,Urine >182 /hpf (0-5)
[2016-10-21] MEDS ORDERED: SODIUM CHLORIDE 0.9% 1,000 ML IV SCH (17:15)
[2016-10-21] MEDS ORDERED: ACETAMINOPHEN TAB 325 MG TAB PO PRN (17:15)
[2016-10-21] MEDS ORDERED: ONDANSETRON 4 MG/2 ML VIAL IVP PRN (17:15)
[2016-10-21] MEDS ORDERED: NALOXONE 0.4 MG/ML 1 ML VIAL IV PRN (17:15)
[2016-10-21] MEDS ORDERED: traMADol 50 MG TAB PO PRN (19:08)
[2016-10-21] MEDS ORDERED: HYDROcodone/APAP 7.5-325MG 1 EACH TAB PO PRN (19:08)
[2016-10-21] MEDS ORDERED: ACETAMINOPHEN TAB 500 MG TAB PO PRN (19:08)
--- NOTE | 2016-10-21 19:38 | P.HPIM ---
History of Present Illness H&P Date: 10/21/16 Chief Complaint: Severe abdominal pain, sepsis, urinary tract infection, kidney stone, asthm 66-year-old female one of Dr. Price"s patient who has not seen her yet who apparently had kidney stone diagnosed this last Friday when developed to have right-sided flank pain ended up in [facility] and was sent home to return today having severe increased intractable pain radiating to the groin area associated with mild nausea vomiting significant blood in the urine significant change in urine color along with polyuria no daily and frequency. She had low-grade temperature as well ended up coming to [facility] department at a clear and [place] was seen and evaluated her urine was very positive white blood cell was not elevated CT and x-ray from early showed large sided right-sided kidney stone with infection this is diagnosed as an infected kidney stone with sepsis. Patient was started on Rocephin and possible secondary antibiotic will consult urology and admit patient to the hospital with above problem. Patient was hospitalized back in [address] Garcia service with severe abdominal pain and perforation ended up going for partial resection and colostomy. Patient was the hospital for quite long time ended up going to [facility] rehab ended up back in the hospital and in the emergency room few times with intractable pain not control was claimed to be related to the perforated viscus secondary to peritonitis along with back pain from compression fracture. Patient family ended up taking her out of [facility] to go to [facility] where was diagnosed with leak at the time from her ostomy surgery was treated with IV antibiotic with conservative management no surgery was due. Patient ended up spending one month and rehab at [place] and was discharged home not too long ago. Her kidney stone symptoms become problem in the last 10 days only. Review of Systems Constitutional: Reports chronic headaches, Reports chronic pain, Reports daytime sleepiness, Reports fatigue, Reports fever, Reports lethargy, Reports poor appetite, Reports weight gain, Denies as per HPI, Denies anorexia, Denies chills, Denies malaise, Denies night sweats, Denies sweats, Denies weakness, Denies weight loss Eyes: bilateral as per HPI Ears: bilateral: decreased hearing Ears, nose, mouth and throat: Reports ant. neck pain, Reports nasal congestion, Reports nasal discharge, Reports sinus pressure, Denies as per HPI, Denies bleeding gums, Denies dental pain, Denies dysphagia, Denies epistaxis, Denies headache, Denies hoarseness, Denies mouth pain, Denies neck fullness/pressure, Denies neck lump, Denies nose pain, Denies odynophagia, Denies post-nasal drip, Denies sinus pain, Denies swelling in mouth, Denies swelling in throat, Denies sore throat, Denies vertigo, Denies voice changes Cardiovascular: Reports chest pain, Reports decreased exercise tolerance, Reports dyspnea on exertion, Reports high blood pressure, Reports irregular heart beat, Reports leg edema, Reports orthopnea, Reports paroxysmal nocturnal dyspnea, Reports rapid heart beat, Reports shortness of breath Respiratory: Reports congestion, Reports cough with sputum, Reports dyspnea, Reports respiratory infections, Reports sleep apnea, Denies as per HPI, Denies cough, Denies excessive sputum, Denies hemoptysis, Denies home oxygen, Denies pain, Denies pain on inspiration, Denies pleurisy, Denies snoring, Denies wheezing Gastrointestinal: Reports abdominal pain, Reports bloating, Reports change in bowel habits, Reports dyspepsia, Reports early satiety, Reports indigestion, Reports nausea, Denies as per HPI, Denies belching, Denies BRBPR, Denies coffee ground emesis, Denies constipation, Denies diarrhea, Denies excessive gas, Denies heartburn, Denies hematemesis, Denies hematochezia, Denies jaundice, Denies lactose intolerance, Denies loss of appetite, Denies melena, Denies vomiting Genitourinary: Reports dysuria, Reports flank pain, Reports nocturia, Reports pelvic pain, Reports urge incontinence, Reports urinary frequency, Denies as per HPI, Denies abnormal vaginal bleeding, Denies decreased libido, Denies difficulty conceiving, Denies difficulty voiding, Denies dysmenorrhea, Denies dyspareunia, Denies genital sores, Denies hematuria, Denies hot flashes, Denies incomplete emptying, Denies kidney stones, Denies menorrhagia, Denies mixed incontinence, Denies post void dribbling, Denies , Denies prolapse symptoms, Denies stress incontinence, Denies urgency, Denies vaginal discharge, Denies vaginal dryness, Denies vaginal itching, Denies vaginal odor Musculoskeletal: Reports arm numbness/tingling, Reports low back pain, Reports neck pain, Reports neck stiffness, Denies as per HPI, Denies atrophy, Denies fractures, Denies frequent falls, Denies gait dysfunction, Denies hot joints, Denies leg numbness/tingling, Denies limitation of motion, Denies loss of height , Denies morning stiffness, Denies muscle cramps, Denies muscle weakness, Denies myalgias, Denies prior amputations, Denies redness of joints, Denies shooting arm pain, Denies shooting leg pain Musculoskeletal: bilateral: ankle pain Integumentary: Reports rash, Denies as per HPI, Denies acne, Denies boils, Denies brittle nails, Denies change in hair/nails, Denies color changes, Denies darkening of skin, Denies depigmentation, Denies dryness, Denies foot/leg ulcers , Denies growths, Denies hirsutism, Denies lesions, Denies onychomycosis, Denies pruritus, Denies sores, Denies striae, Denies unusual bruising, Denies wounds Neurological: Reports ataxia, Reports burning pain, Reports headaches, Reports numbness, Reports paresthesias, Reports spasticity, Reports tremors, Reports weakness, Denies as per HPI, Denies aphasia, Denies balance difficulties, Denies change in mentation, Denies change in smell/taste, Denies change in speech, Denies confusion, Denies convulsions, Denies double vision, Denies gait dysfunction, Denies head injury, Denies hearing difficulties, Denies lack of coordination, Denies loss of vision, Denies memory loss, Denies migraines, Denies motor disturbance, Denies paralysis, Denies seizures, Denies sensory deficit, Denies syncope, Denies tic, Denies tingling, Denies transient paralysis , Denies vertigo, Denies visual changes Psychiatric: Reports anhedonia, Reports anxiety, Reports anxiety attacks, Reports insomnia, Reports irritability, Reports mood swings, Reports sadness/ tearfulness, Denies as per HPI, Denies change in appetite, Denies change in libido, Denies change in sleep habits, Denies confusion, Denies depression, Denies difficulty concentrating, Denies disorientation, Denies hallucinations, Denies hopelessness, Denies hypersomnia, Denies memory loss, Denies paranoia, Denies sleep disturbances, Denies suicidal ideation Endocrine: Reports fatigue, Reports heat intolerance, Reports nocturia, Reports palpitations, Reports polyphagia, Denies as per HPI, Denies cold intolerance, Denies deepening of the voice, Denies excessive sweating, Denies excessive thirst, Denies flushing, Denies high blood sugars, Denies increase in ring/shoe/ hat size, Denies low blood sugars, Denies polydipsia, Denies polyuria, Denies proptosis, Denies recent glucocorticoid use, Denies thyroid mass, Denies weight change Hematologic/Lymphatic: Reports easy bruising, Denies as per HPI, Denies easy bleeding, Denies lymphadenopathy, Denies lymphedema, Denies thrombophilia Allergic/Immunologic: Reports allergic rhinitis, Denies as per HPI, Denies anaphylaxis, Denies angioedema, Denies gluten intolerance, Denies persistent infections, Denies seasonal allergies, Denies urticaria, Denies wheezing Past Medical History Past Medical History: Asthma, Cancer, GERD/Reflux Additional Past Medical History / Comment(s): Bronchial asthma, compression fracture of the T-spine, osteoporosis, skin cancer, history of sepsis of urinary source, sigmoid diverticulosis, compression fracture of the L2 spine, compression fracture of the T12 spine, compression fracture of the T7 spine History of Any Multi-Drug Resistant Organisms: None Reported Past Surgical History: Appendectomy, Bowel Resection, Tubal Ligation Additional Past Surgical History / Comment(s): CATARACT LEFT EYE WITH REPAIR OF MACULAR HOLE. Colonoscopy, 2014. bowel resection with colostomy Past Anesthesia/Blood Transfusion Reactions: No Reported Reaction Past Psychological History: No Psychological Hx Reported Smoking Status: Never smoker Past Alcohol Use History: Occasional Past Drug Use History: None Reported - Past Family History Mother Family Medical History: Cancer Additional Family Medical History / Comment(s): COLON CANCER in Mother Medications and Allergies Home Medications Medication Instructions Recorded Confirmed Type Albuterol Nebulized [Ventolin 2.5 mg INHALATION RT-BID 07/22/16 10/21/16 History Nebulized] Albuterol Sulfate [Proventil Hfa] 2 puff INHALATION RT-Q6H PRN 07/22/16 History Budesonide/Formoterol Fumarate 2 puff INHALATION RT-BID 07/22/16 10/21/16 History [Symbicort 160-4.5 Mcg Inhaler] Montelukast [Singulair] 10 mg PO HS 07/22/16 10/21/16 History Omeprazole 20 mg PO BID 07/22/16 10/21/16 History HYDROcodone/APAP 7.5-325MG [[place] 1 tab PO Q6H PRN 08/23/16 10/21/16 History 7.5-325] Apixaban [Eliquis] 5 mg PO BID 09/27/16 10/21/16 History Cyclobenzaprine [Flexeril] 5 mg PO BID 09/27/16 10/21/16 History Flecainide [Tambocor] 50 mg PO Q12HR 09/27/16 10/21/16 History Gabapentin [Neurontin] 100 mg PO DAILY 09/27/16 10/21/16 History Gabapentin [Neurontin] 200 mg PO HS 09/27/16 10/21/16 History Lidocaine 5% Patch [Lidoderm] 1 patch TOPICAL DAILY 09/27/16 10/21/16 History traMADol HCL [Ultram] 50 mg PO Q6H PRN 09/27/16 10/21/16 History Acetaminophen Tab [Tylenol Tab] 500 mg PO Q6H PRN 10/21/16 10/21/16 History Diltiazem HCl [Cartia Xt] 180 mg PO DAILY 10/21/16 10/21/16 History predniSONE 10 mg PO DAILY 10/21/16 10/21/16 History Allergies Allergy/AdvReac Type Severity Reaction Status Date / Time furosemide [From Lasix] Allergy Rash/Hives Verified 10/21/16 16:33 Physical Exam Vitals: Vital Signs Temp Pulse Resp BP Pulse Ox 10/21/16 17:15 97.5 F L 93 18 144/67 96 10/21/16 15:12 98.3 F 98 18 158/67 98 Intake and Output 10/21/16 10/21/16 10/21/16 06:59 14:59 22:59 Other: Weight 77.111 kg Patient Weight 10/22/16 06:59 Weight 77.111 kg - Constitutional Patient has Tan syndrome with ramirez face. General appearance: cooperative, morbidly obese, no acute distress - EENT Eyes: no abnormal pupil, no disc margins sharp, no edentulous, no EOMI, no PERRLA, no fundus normal, no photophobia, no dentition normal, no poor dentition , no ptosis, no scleral icterus, normal appearance ENT: no hard of hearing, no hearing grossly normal, no NA/AT, normal oropharynx , no other, no pharyngeal erythema, no thrush, no tonsillar exudates, no tonsillar swelling Ears: bilateral: normal - Neck Neck: no lymphadenopathy, normal ROM, no other, no rigidity, no stridor, no thyromegaly Carotids: bilateral: upstroke normal Thyroid: bilateral: normal size - Respiratory Respiratory: bilateral: diminished, dullness, rales, rhonchi, wheezing - Cardiovascular Rhythm: irregularly irregular Heart sounds: normal: S1, S2 Abnormal Heart Sounds: systolic murmur, S3 Gallop - Gastrointestinal Incision midline from her ostomy looks clean with slight granulated tissue and mild keloid. Her ostomy bag and stump looks good with no sign of infection no bloody drainage from the ostomy. General gastrointestinal: no absent bowel sounds, no decreased bowel sounds, distended, no hepatomegaly, no hyperactive bowel sounds, no normal bowel sounds , organomegaly, no rigid, no scaphoid, soft, no splenomegaly, tenderness, no umbilical hernia, no ventral hernia Localized gastrointestinal: tender: RUQ - Genitourinary Right sided flank area extremely painful and shooting pain to the groin. - Integumentary Severe frail skin all over with multiple bruises had 3 different type of bruises on the right leg and one on the left with no open spot currently. Multiple ecchymosis and Integumentary: no calor, cellulitis, no cyanotic, no decreased turgor, no flushed, no jaundiced, no normal, no normal turgor, pale, rash, no ulcer - Neurologic Neurologic: CNII-XII intact - Musculoskeletal Musculoskeletal: gait normal, generalized weakness, strength equal bilaterally, no right sided weakness, no left sided weakness - Psychiatric Psychiatric: A&O x's 3, appropriate affect Results CBC & Chem 7: 10/21/16 15:07 10/21/16 15:07 Labs: Abnormal Lab Results - Last 24 Hours (Table) 10/21/16 10/21/16 10/21/16 Range/Units 15:07 15:07 16:19 MCV 100.9 H (80.0-100.0) fL Potassium 3.2 L (3.5-5.1) mmol/L Glucose 61 L (74-99) mg/dL Total Protein 5.6 L (6.3-8.2) g/dL Albumin 3.4 L (3.5-5.0) g/dL Urine Appearance Cloudy H (Clear) Urine Protein Trace H (Negative) Urine Ketones 3+ H (Negative) Urine Blood Moderate H (Negative) Ur Leukocyte Esterase Large H (Negative) Urine RBC 19 H (0-5) /hpf Urine WBC >182 H (0-5) /hpf Urine WBC Clumps Many H (None) /hpf Ur Squamous Epith Cells 7 H (0-4) /hpf Urine Mucus Rare H (None) /hpf Thrombosis Risk Factor Assmnt - DVT/VTE Prophylaxis DVT/VTE Prophylaxis: Pharmacologic Prophylaxis ordered, Mechanical Prophylaxis ordered Assessment and Plan Plan: 1 sepsis and UTI: Patient was started on Rocephin urine culture was requested blood culture was requested as well will consult urology. 2 large kidney stone in the right side: Patient will be seen urology if needed might require. 3 severe lower back pain: Beside her kidney stone pain patient known to have chronic compression disc has been on chronic pain management will resume her hydrocodone and tramadol and Flexeril. 4 flareup continue patient on prednisone with titrated up to 20 mg currently we' ll continue Symbicort and albuterol nebulizer we'll consult Dr. Tyler and was covering Dr. Gallardo. 5 A. fib with RVR: Patient is doing well currently with the current medication she is remain on Tambocor 50 mg twice a day Cardizem 180 mg daily and Eliquis 5 mg twice a day. 6 chronic peritonitis: Patient was on antibiotic and wound VAC for long time has been doing better lately. We'll consult Dr. Garcia who was seen patient originally from original surgery. 7 chronic pain syndrome: Has been on gabapentin, hydrocodone, tramadol, prednisone and Flexeril. 8 hypoglycemia: Keep watching patient for any increased blood sugar Accu-Chek with sliding scales coverage can be requested. 9 severe GERD and hiatal hernia: Has been on omeprazole 20 mg a day. 10 DVT prophylaxis: Patient is on anticoagulation we'll continue knee-high AUGUSTINE hose and Venodyne boots. 11 [place] syndrome: Patient is on steroid for steroid-dependent asthma has been doing 10 mg a day with the current management specially with the current condition will increase the dose up to 20 mg to reduce started having any adrenal insufficiency. CODE STATUS: Full code. Expectation from this admission: Patient be in the hospital for more than 2 nights.
[2016-10-21] MEDS: HYDROmorphone 1 MG/ML 1 ML SYRINGE IV PRN ×2 (20:27→23:08)
[2016-10-21] MEDS: ALBUTEROL NEBULIZED 2.5 MG/3 ML INHALATION SCH (21:09)
[2016-10-21] MEDS: SYMBICORT 160-4.5 MCG INHALER INHALATION SCH (21:09)
[2016-10-21 21:30] LABS: Glucose,Whole Blood 55 mg/dL (75-99)
[2016-10-21] MEDS: APIXABAN 5 MG TAB PO SCH (22:15)
[2016-10-21] MEDS: CYCLOBENZAPRINE 5 MG TAB PO SCH (22:15)
[2016-10-21] MEDS: MONTELUKAST 10 MG TAB PO SCH (22:16)
[2016-10-21] MEDS: GABAPENTIN 100 MG CAP PO SCH (22:16)
[2016-10-21] MEDS: PANTOPRAZOLE 40 MG TABLET PO SCH (22:16)
[2016-10-21] MEDS: FLECAINIDE 50 MG TAB PO SCH (22:16)
[2016-10-21] MEDS: DEXTROSE 5%-0.9% NACL 1,000 ML IV SCH (22:17)
[2016-10-21] MEDS ORDERED: Potassium Replacement Protocol 1 EACH MISC MISCELLANE PRN (22:57)
[2016-10-22] MEDS: POTASSIUM CHLORIDE 10 MEQ, LIDOCAINE 2% INJ 10 MG in SODIUM CHLORIDE 0.9% 100 ML IV SCH ×2 (00:18→01:22)
[2016-10-22] MEDS: HYDROmorphone 1 MG/ML 1 ML SYRINGE IV PRN ×7 (02:10→21:40)
--- NOTE | 2016-10-22 06:36 | P.GSCN ---
History of Present Illness Consult date: 10/22/16 Reason for Consult: Right Ureteral calculus, right kidney stone, urinary tract infection History of present illness: The patient is a 66-year-old female who was admitted to the hospital with a ureteral stone as well as potential urinary tract infection. The patient for 10 days has had intermittent flank pain on the right side. It became severe enough that she came to the emergency room. Urinalysis looked like infected urine with 180 white cells are 8 his computed tomography scan identified a 4 mm proximal ureteral stone and about a 12 mm right lower pole calyceal stone. The patient did not have an elevated white count nor fever. She is not septic appearing. The patient has seen in the past for multiple urologic issues. The patient does have a history of stones. She has not had any for several years. Review of Systems - Constitutional Reports chronic pain - Gastrointestinal Reports abdominal pain - Genitourinary Genitourinary: Reports kidney stones - Integumentary Reports color changes, Reports darkening of skin Past Medical History Past Medical History: Asthma, Cancer, GERD/Reflux Additional Past Medical History / Comment(s): Bronchial asthma, compression fracture of the T-spine, osteoporosis, skin cancer, history of sepsis of urinary source, sigmoid diverticulosis, compression fracture of the L2 spine, compression fracture of the T12 spine, compression fracture of the T7 spine History of Any Multi-Drug Resistant Organisms: None Reported Past Surgical History: Appendectomy, Bowel Resection, Tubal Ligation Additional Past Surgical History / Comment(s): CATARACT LEFT EYE WITH REPAIR OF MACULAR HOLE. Colonoscopy, 2014. bowel resection with colostomy Past Anesthesia/Blood Transfusion Reactions: No Reported Reaction Past Psychological History: No Psychological Hx Reported Smoking Status: Never smoker Past Alcohol Use History: Occasional Past Drug Use History: None Reported - Past Family History Mother Family Medical History: Cancer Additional Family Medical History / Comment(s): COLON CANCER in Mother Medications and Allergies Home Medications Medication Instructions Recorded Confirmed Type Albuterol Nebulized [Ventolin 2.5 mg INHALATION RT-BID 07/22/16 10/21/16 History Nebulized] Albuterol Sulfate [Proventil Hfa] 2 puff INHALATION RT-Q6H PRN 07/22/16 History Budesonide/Formoterol Fumarate 2 puff INHALATION RT-BID 07/22/16 10/21/16 History [Symbicort 160-4.5 Mcg Inhaler] Montelukast [Singulair] 10 mg PO HS 07/22/16 10/21/16 History Omeprazole 20 mg PO BID 07/22/16 10/21/16 History HYDROcodone/APAP 7.5-325MG [Hermon 1 tab PO Q6H PRN 08/23/16 10/21/16 History 7.5-325] Apixaban [Eliquis] 5 mg PO BID 09/27/16 10/21/16 History Cyclobenzaprine [Flexeril] 5 mg PO BID 09/27/16 10/21/16 History Flecainide [Tambocor] 50 mg PO Q12HR 09/27/16 10/21/16 History Gabapentin [Neurontin] 100 mg PO DAILY 09/27/16 10/21/16 History Gabapentin [Neurontin] 200 mg PO HS 09/27/16 10/21/16 History Lidocaine 5% Patch [Lidoderm] 1 patch TOPICAL DAILY 09/27/16 10/21/16 History traMADol HCL [Ultram] 50 mg PO Q6H PRN 09/27/16 10/21/16 History Acetaminophen Tab [Tylenol Tab] 500 mg PO Q6H PRN 10/21/16 10/21/16 History Diltiazem HCl [Cartia Xt] 180 mg PO DAILY 10/21/16 10/21/16 History predniSONE 10 mg PO DAILY 10/21/16 10/21/16 History Allergies Allergy/AdvReac Type Severity Reaction Status Date / Time furosemide [From Lasix] Allergy Rash/Hives Verified 10/21/16 16:33 Surgical - Exam Vital Signs Temp Pulse Resp BP Pulse Ox 98.3 F 98 18 158/67 98 10/21/16 15:12 10/21/16 15:12 10/21/16 15:12 10/21/16 15:12 10/21/16 15:12 - General well developed, well nourished, moderate distress, moderate pain - ENT no hearing loss - Neck trachea midline - Respiratory normal expansion, normal respiratory effort - Cardiovascular Rhythm: regular - Abdomen Abdomen: tender - Integumentary Multiple bruises consistent with chronic steroid use other - Neurologic normal coordination, normal sensation - Musculoskeletal normal posture - Psychiatric oriented to time, oriented to person, oriented to place, speech is normal, memory intact Results - Labs 10/21/16 15:07 10/21/16 15:07 Abnormal Lab Results - Last 24 Hours (Table) 10/21/16 10/21/16 10/21/16 Range/Units 15:07 15:07 16:19 MCV 100.9 H (80.0-100.0) fL Potassium 3.2 L (3.5-5.1) mmol/L Glucose 61 L (74-99) mg/dL POC Glucose (mg/dL) (75-99) mg/dL Total Protein 5.6 L (6.3-8.2) g/dL Albumin 3.4 L (3.5-5.0) g/dL Urine Appearance Cloudy H (Clear) Urine Protein Trace H (Negative) Urine Ketones 3+ H (Negative) Urine Blood Moderate H (Negative) Ur Leukocyte Esterase Large H (Negative) Urine RBC 19 H (0-5) /hpf Urine WBC >182 H (0-5) /hpf Urine WBC Clumps Many H (None) /hpf Ur Squamous Epith Cells 7 H (0-4) /hpf Urine Mucus Rare H (None) /hpf 10/21/16 Range/Units 21:26 MCV (80.0-100.0) fL Potassium (3.5-5.1) mmol/L Glucose (74-99) mg/dL POC Glucose (mg/dL) 55 L (75-99) mg/dL Total Protein (6.3-8.2) g/dL Albumin (3.5-5.0) g/dL Urine Appearance (Clear) Urine Protein (Negative) Urine Ketones (Negative) Urine Blood (Negative) Ur Leukocyte Esterase (Negative) Urine RBC (0-5) /hpf Urine WBC (0-5) /hpf Urine WBC Clumps (None) /hpf Ur Squamous Epith Cells (0-4) /hpf Urine Mucus (None) /hpf Microbiology - Last 24 Hours (Table) 10/21/16 16:19 Urine Culture - Preliminary Urine,Voided Diabetes panel 10/21/16 Range/Units 15:07 Sodium 137 (137-145) mmol/L Potassium 3.2 L (3.5-5.1) mmol/L Chloride 100 (98-107) mmol/L Carbon Dioxide 26 (22-30) mmol/L BUN 11 (7-17) mg/dL Creatinine 0.63 (0.52-1.04) mg/dL Glucose 61 L (74-99) mg/dL Calcium 8.7 (8.4-10.2) mg/dL AST 21 (14-36) U/L ALT 23 (9-52) U/L Alkaline Phosphatase 66 (38-126) U/L Total Protein 5.6 L (6.3-8.2) g/dL Albumin 3.4 L (3.5-5.0) g/dL Calcium panel 10/21/16 Range/Units 15:07 Calcium 8.7 (8.4-10.2) mg/dL Albumin 3.4 L (3.5-5.0) g/dL Pituitary panel 10/21/16 Range/Units 15:07 Sodium 137 (137-145) mmol/L Potassium 3.2 L (3.5-5.1) mmol/L Chloride 100 (98-107) mmol/L Carbon Dioxide 26 (22-30) mmol/L BUN 11 (7-17) mg/dL Creatinine 0.63 (0.52-1.04) mg/dL Glucose 61 L (74-99) mg/dL Calcium 8.7 (8.4-10.2) mg/dL Adrenal panel 10/21/16 Range/Units 15:07 Sodium 137 (137-145) mmol/L Potassium 3.2 L (3.5-5.1) mmol/L Chloride 100 (98-107) mmol/L Carbon Dioxide 26 (22-30) mmol/L BUN 11 (7-17) mg/dL Creatinine 0.63 (0.52-1.04) mg/dL Glucose 61 L (74-99) mg/dL Calcium 8.7 (8.4-10.2) mg/dL Total Bilirubin 0.5 (0.2-1.3) mg/dL AST 21 (14-36) U/L ALT 23 (9-52) U/L Alkaline Phosphatase 66 (38-126) U/L Total Protein 5.6 L (6.3-8.2) g/dL Albumin 3.4 L (3.5-5.0) g/dL Assessment and Plan Plan: Impression: Acute right ureteral colic secondary to 4 mm proximal ureteral stone. Asymptomatic 12 mm right lower pole calyceal stone. Abnormal urinalysis possible urinary tract infection. Recommendations: I discussed with the patient the possibility of spontaneous passage versus surgical intervention. I do not think this patient is septic at this point in time if she has a normal white count and no fever nor tachycardia. I will discuss with and he and the patient will decide further urologic intervention and timing of that if necessary.
[2016-10-22 07:15] LABS: Glucose,Whole Blood 65 mg/dL (75-99)
[2016-10-22 07:15] LABS: Glucose,Whole Blood 71 mg/dL (75-99)
[2016-10-22] MEDS: CYCLOBENZAPRINE 5 MG TAB PO SCH ×2 (08:27→21:40)
[2016-10-22] MEDS: predniSONE 20 MG TAB PO SCH (08:27)
[2016-10-22] MEDS: DILTIAZEM CD 180 MG CAP.ER.24H PO SCH (08:27)
[2016-10-22] MEDS: GABAPENTIN 100 MG CAP PO SCH ×2 (08:27→21:40)
[2016-10-22] MEDS: LIDOCAINE 5% PATCH TOPICAL SCH (08:28)
[2016-10-22] MEDS: APIXABAN 5 MG TAB PO SCH ×2 (08:28→21:40)
[2016-10-22] MEDS: PANTOPRAZOLE 40 MG TABLET PO SCH ×2 (08:28→17:52)
[2016-10-22] MEDS: SYMBICORT 160-4.5 MCG INHALER INHALATION SCH ×2 (08:43→18:56)
[2016-10-22] MEDS: ALBUTEROL NEBULIZED 2.5 MG/3 ML INHALATION SCH ×2 (08:43→18:56)
[2016-10-22 09:26] LABS: Basophils # (A) 0.1 k/uL (0-0.2); Basophils % (A) 1 %; CH 31.9; Eosinophils # (A) 0.2 k/uL (0-0.7); Eosinophils % (A) 3 %; HCT 41.6 % (34.0-46.0); HDW 2.84; HGB 13.2 gm/dL (11.4-16.0); Hypochromasia Moderate; Luc # (Auto) 0.08; Luc % (Auto) 1; Lymphocytes # (A) 0.8 k/uL (1.0-4.8); Lymphocytes % (A) 13 %; MCH 32.8 pg (25.0-35.0); MCHC 31.8 g/dL (31.0-37.0); MCV 103.1 fL (80.0-100.0); Macrocytosis Slight; Mean Platelet Volume 7.6; Monocytes # (A) 0.4 k/uL (0-1.0); Monocytes % (A) 7 %; Neutrophils # (A) 4.4 k/uL (1.3-7.7); Neutrophils % (A) 75 %; RBC 4.03 m/uL (3.80-5.40); RDW 14.6 % (11.5-15.5); WBC 5.9 k/uL (3.8-10.6)
[2016-10-22 09:30] LABS: ALT 27 U/L (9-52); AST 19 U/L (14-36); Alkaline Phosphatase 59 U/L (38-126); Anion Gap 9 mmol/L; Blood Urea Nitrogen 8 mg/dL (7-17); Calcium 8.3 mg/dL (8.4-10.2); Carbon Dioxide 23 mmol/L (22-30); Chloride 107 mmol/L (98-107); Glucose 75 mg/dL (74-99); Non-African American GFR(MDRD) >60 (>60 ml/min/1.73 sqM); Potassium 3.8 mmol/L (3.5-5.1); Sodium 139 mmol/L (137-145); Total Bilirubin 0.3 mg/dL (0.2-1.3); Total Protein 5.2 g/dL (6.3-8.2)
[2016-10-22] MEDS: FLECAINIDE 50 MG TAB PO SCH ×2 (11:09→21:40)
[2016-10-22 12:09] LABS: Glucose,Whole Blood 87 mg/dL (75-99)
[2016-10-22] MEDS: DEXTROSE 5%-0.9% NACL 1,000 ML IV SCH (13:49)
[2016-10-22 17:19] LABS: Glucose,Whole Blood 159 mg/dL (75-99)
[2016-10-22 21:12] LABS: Glucose,Whole Blood 204 mg/dL (75-99)
[2016-10-22] MEDS: MONTELUKAST 10 MG TAB PO SCH (21:40)
[2016-10-23] MEDS: DEXTROSE 5%-0.9% NACL 1,000 ML IV SCH ×2 (06:32→18:32)
[2016-10-23 07:27] LABS: Glucose,Whole Blood 100 mg/dL (75-99)
[2016-10-23] MEDS: HYDROmorphone 1 MG/ML 1 ML SYRINGE IV PRN ×3 (07:59→20:14)
[2016-10-23] MEDS: GABAPENTIN 100 MG CAP PO SCH ×2 (08:02→21:44)
[2016-10-23] MEDS: LIDOCAINE 5% PATCH TOPICAL SCH (08:02)
[2016-10-23] MEDS: predniSONE 20 MG TAB PO SCH (08:03)
[2016-10-23] MEDS: FLECAINIDE 50 MG TAB PO SCH ×2 (08:03→21:44)
[2016-10-23] MEDS: DILTIAZEM CD 180 MG CAP.ER.24H PO SCH (08:03)
[2016-10-23] MEDS: CYCLOBENZAPRINE 5 MG TAB PO SCH ×2 (08:03→21:44)
[2016-10-23] MEDS: APIXABAN 5 MG TAB PO SCH ×2 (08:03→21:44)
[2016-10-23] MEDS: PANTOPRAZOLE 40 MG TABLET PO SCH ×2 (08:03→16:43)
--- NOTE | 2016-10-23 08:41 | P.PN ---
Subjective 66-year-old female one of Dr. Price"s patient who has not seen her yet who apparently had kidney stone diagnosed this last Friday when developed to have right-sided flank pain ended up in [facility] apartment and was sent home to return today having severe increased intractable pain radiating to the groin area associated with mild nausea vomiting significant blood in the urine significant change in urine color along with polyuria no daily and frequency. She had low-grade temperature as well ended up coming to [facility] department at a clear and [place] was seen and evaluated her urine was very positive white blood cell was not elevated CT and x-ray from early showed large sided right-sided kidney stone with infection this is diagnosed as an infected kidney stone with sepsis. Patient was started on Rocephin and possible secondary antibiotic will consult urology and admit patient to the hospital with above problem. Patient was hospitalized back in [address] Herndon service with severe abdominal pain and perforation ended up going for partial resection and colostomy. Patient was the hospital for quite long time ended up going to [facility] rehab ended up back in the hospital and in the emergency room few times with intractable pain not control was claimed to be related to the perforated viscus secondary to peritonitis along with back pain from compression fracture. Patient family ended up taking her out of [facility] to go to [facility] where was diagnosed with leak at the time from her ostomy surgery was treated with IV antibiotic with conservative management no surgery was due. Patient ended up spending one month and rehab at [place] and was discharged home not too long ago. Her kidney stone symptoms become problem in the last 10 days only. 10/22: Dr. Robins has evaluated the patient with no immediate plan for surgical intervention but will discuss with Dr. Kuo. She has been afebrile and hemodynamically stable. White count remains normal at 5.9. 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 General appearance: cooperative, morbidly obese, no acute distress - EENT Eyes: no abnormal pupil, no disc margins sharp, no edentulous, no EOMI, no PERRLA, no fundus normal, no photophobia, no dentition normal, no poor dentition , no ptosis, no scleral icterus, normal appearance ENT: no hard of hearing, no hearing grossly normal, no NA/AT, normal oropharynx , no other, no pharyngeal erythema, no thrush, no tonsillar exudates, no tonsillar swelling Ears: bilateral: normal - Neck Neck: no lymphadenopathy, normal ROM, no other, no rigidity, no stridor, no thyromegaly Carotids: bilateral: upstroke normal Thyroid: bilateral: normal size - Respiratory Respiratory: bilateral: diminished, dullness, rales, rhonchi, wheezing - Cardiovascular Rhythm: irregularly irregular Heart sounds: normal: S1, S2 Abnormal Heart Sounds: systolic murmur, S3 Gallop - Gastrointestinal Incision midline from her ostomy looks clean with slight granulated tissue and mild keloid. Her ostomy bag and stump looks good with no sign of infection no bloody drainage from the ostomy. General gastrointestinal: no absent bowel sounds, no decreased bowel sounds, distended, no hepatomegaly, no hyperactive bowel sounds, no normal bowel sounds , organomegaly, no rigid, no scaphoid, soft, no splenomegaly, tenderness, no umbilical hernia, no ventral hernia Localized gastrointestinal: tender: RUQ - Genitourinary Right sided flank area extremely painful and shooting pain to the groin. - Integumentary Severe frail skin all over with multiple bruises had 3 different type of bruises on the right leg and one on the left with no open spot currently. Multiple ecchymosis and Integumentary: no calor, cellulitis, no cyanotic, no decreased turgor, no flushed, no jaundiced, no normal, no normal turgor, pale, rash, no ulcer - Neurologic Neurologic: CNII-XII intact - Musculoskeletal Musculoskeletal: gait normal, generalized weakness, strength equal bilaterally, no right sided weakness, no left sided weakness - Psychiatric Psychiatric: A&O x's 3, appropriate affect - Labs CBC & Chem 7: 10/22/16 08:05 10/22/16 08:05 Labs: Abnormal Lab Results - Last 24 Hours (Table) 10/21/16 10/21/16 10/21/16 Range/Units 15:07 15:07 16:19 MCV 100.9 H (80.0-100.0) fL Lymphocytes # (1.0-4.8) k/uL Potassium 3.2 L (3.5-5.1) mmol/L Glucose 61 L (74-99) mg/dL POC Glucose (mg/dL) (75-99) mg/dL Calcium (8.4-10.2) mg/dL Total Protein 5.6 L (6.3-8.2) g/dL Albumin 3.4 L (3.5-5.0) g/dL Urine Appearance Cloudy H (Clear) Urine Protein Trace H (Negative) Urine Ketones 3+ H (Negative) Urine Blood Moderate H (Negative) Ur Leukocyte Esterase Large H (Negative) Urine RBC 19 H (0-5) /hpf Urine WBC >182 H (0-5) /hpf Urine WBC Clumps Many H (None) /hpf Ur Squamous Epith Cells 7 H (0-4) /hpf Urine Mucus Rare H (None) /hpf 10/21/16 10/22/16 10/22/16 Range/Units 21:26 06:41 07:03 MCV (80.0-100.0) fL Lymphocytes # (1.0-4.8) k/uL Potassium (3.5-5.1) mmol/L Glucose (74-99) mg/dL POC Glucose (mg/dL) 55 L 65 L 71 L (75-99) mg/dL Calcium (8.4-10.2) mg/dL Total Protein (6.3-8.2) g/dL Albumin (3.5-5.0) g/dL Urine Appearance (Clear) Urine Protein (Negative) Urine Ketones (Negative) Urine Blood (Negative) Ur Leukocyte Esterase (Negative) Urine RBC (0-5) /hpf Urine WBC (0-5) /hpf Urine WBC Clumps (None) /hpf Ur Squamous Epith Cells (0-4) /hpf Urine Mucus (None) /hpf 10/22/16 10/22/16 Range/Units 08:05 08:05 MCV 103.1 H (80.0-100.0) fL Lymphocytes # 0.8 L (1.0-4.8) k/uL Potassium (3.5-5.1) mmol/L Glucose (74-99) mg/dL POC Glucose (mg/dL) (75-99) mg/dL Calcium 8.3 L (8.4-10.2) mg/dL Total Protein 5.2 L (6.3-8.2) g/dL Albumin 3.0 L (3.5-5.0) g/dL Urine Appearance (Clear) Urine Protein (Negative) Urine Ketones (Negative) Urine Blood (Negative) Ur Leukocyte Esterase (Negative) Urine RBC (0-5) /hpf Urine WBC (0-5) /hpf Urine WBC Clumps (None) /hpf Ur Squamous Epith Cells (0-4) /hpf Urine Mucus (None) /hpf Microbiology - Last 24 Hours (Table) 10/21/16 16:19 Urine Culture - Preliminary Urine,Voided Assessment and Plan Plan: 1 UTI (sepsis ruled out): Patient was started on Rocephin urine culture was requested blood culture was requested as well will consult urology. 2 large kidney stone in the right side: Urology consult appreciated. No immediate plan for intervention. 3 severe lower back pain: Beside her kidney stone pain patient known to have chronic compression disc has been on chronic pain management will resume her hydrocodone and tramadol and Flexeril. 4 flareup continue patient on prednisone with titrated up to 20 mg currently we' ll continue Symbicort and albuterol nebulizer we'll consult Dr. Tyler and was covering Dr. Gallardo. 5 A. fib with RVR: Patient is doing well currently with the current medication she is remain on Tambocor 50 mg twice a day Cardizem 180 mg daily and Eliquis 5 mg twice a day. 6 chronic peritonitis: Patient was on antibiotic and wound VAC for long time has been doing better lately. We'll consult Dr. Herndon who was seen patient originally from original surgery. 7 chronic pain syndrome: Has been on gabapentin, hydrocodone, tramadol, prednisone and Flexeril. 8 hypoglycemia: Keep watching patient for any increased blood sugar Accu-Chek with sliding scales coverage can be requested. 9 severe GERD and hiatal hernia: Has been on omeprazole 20 mg a day. 10 DVT prophylaxis: Patient is on anticoagulation we'll continue knee-high AUGUSTINE hose and Venodyne boots. 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 CODE STATUS: Full code. Discharge plan: Return home Impression and plan of care have been directed as dictated by the signing physician. Sue Castro nurse practitioner acting as scribe for signing physician.
--- NOTE | 2016-10-23 10:17 | P.PN ---
Progress Note - Text Patient seen and evaluated. She reports history of symptomatic kidney stones. She is pending colostomy reversal. At this time, management per urology for kidney stones. Will follow closely. Please see full dictated report.
--- NOTE | 2016-10-23 10:44 | P.PN ---
Progress Note - Text The patient is afebrile and has been since she was admitted. She complains intermittent abdominal and back pain but it's unclear how much of this is a right ureteral calculus as some of her pain is left sided abdominal pain. Her blood count today is 5900. BUN/creatinine is 8/0.62. Urine culture grew mixed colonies consistent with contamination. This is the same result from a urine culture obtained in July. The patient does not have a history of recurrent urinary tract infections and I do not feel that the patient actually had sepsis at the time of admisssion. The patient has a 23 mm nonobstructive right renal calculus and at the time of admission. She also had a 3 x 4 mm proximal right ureteral calculus which was probably the cause of her right-sided pain. She has not passed this calculus although she has not been straining her urine. I discussed right ureteroscopy with lithotripsy for treatment of the ureteral calculus and she would like to proceed with this. I will see if I can set this up tomorrow.
[2016-10-23 12:11] LABS: Glucose,Whole Blood 131 mg/dL (75-99)
[2016-10-23] MEDS: ALBUTEROL NEBULIZED 2.5 MG/3 ML INHALATION SCH ×2 (12:19→20:50)
[2016-10-23] MEDS: SYMBICORT 160-4.5 MCG INHALER INHALATION SCH ×2 (12:19→20:50)
--- NOTE | 2016-10-23 14:14 | P.PN ---
Subjective 66-year-old female one of Dr. Price"s patient who has not seen her yet who apparently had kidney stone diagnosed this last Friday when developed to have right-sided flank pain ended up in [facility] apartment and was sent home to return today having severe increased intractable pain radiating to the groin area associated with mild nausea vomiting significant blood in the urine significant change in urine color along with polyuria no daily and frequency. She had low-grade temperature as well ended up coming to [facility] department at a clear and [place] was seen and evaluated her urine was very positive white blood cell was not elevated CT and x-ray from early showed large sided right-sided kidney stone with infection this is diagnosed as an infected kidney stone with sepsis. Patient was started on Rocephin and possible secondary antibiotic will consult urology and admit patient to the hospital with above problem. Patient was hospitalized back in [address] Herndon service with severe abdominal pain and perforation ended up going for partial resection and colostomy. Patient was the hospital for quite long time ended up going to [facility] rehab ended up back in the hospital and in the emergency room few times with intractable pain not control was claimed to be related to the perforated viscus secondary to peritonitis along with back pain from compression fracture. Patient family ended up taking her out of [facility] to go to [facility] where was diagnosed with leak at the time from her ostomy surgery was treated with IV antibiotic with conservative management no surgery was due. Patient ended up spending one month and rehab at [place] and was discharged home not too long ago. Her kidney stone symptoms become problem in the last 10 days only. 10/22: Dr. Robins has evaluated the patient with no immediate plan for surgical intervention but will discuss with Dr. Kuo. She has been afebrile and hemodynamically stable. White count remains normal at 5.9. 10/23: Patient has been seen by Dr. Kuo with plan for right ureteroscopy with lithotripsy for treatment of ureteral calculus which is planned for tomorrow. Patient is complaining of a lot of pain to the right lower quadrant today. She is followed by Dr. Herndon as well. Vital signs have been stable. Urine culture is showing contamination. 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 General appearance: cooperative, morbidly obese, no acute distress - EENT Eyes: no abnormal pupil, no disc margins sharp, no edentulous, no EOMI, no PERRLA, no fundus normal, no photophobia, no dentition normal, no poor dentition , no ptosis, no scleral icterus, normal appearance ENT: no hard of hearing, no hearing grossly normal, no NA/AT, normal oropharynx , no other, no pharyngeal erythema, no thrush, no tonsillar exudates, no tonsillar swelling Ears: bilateral: normal - Neck Neck: no lymphadenopathy, normal ROM, no other, no rigidity, no stridor, no thyromegaly Carotids: bilateral: upstroke normal Thyroid: bilateral: normal size - Respiratory Respiratory: bilateral: diminished, dullness, rales, rhonchi, wheezing - Cardiovascular Rhythm: irregularly irregular Heart sounds: normal: S1, S2 Abnormal Heart Sounds: systolic murmur, S3 Gallop - Gastrointestinal Incision midline from her ostomy looks clean with slight granulated tissue and mild keloid. Her ostomy bag and stump looks good with no sign of infection no bloody drainage from the ostomy. General gastrointestinal: no absent bowel sounds, no decreased bowel sounds, distended, no hepatomegaly, no hyperactive bowel sounds, no normal bowel sounds , organomegaly, no rigid, no scaphoid, soft, no splenomegaly, tenderness, no umbilical hernia, no ventral hernia Localized gastrointestinal: tender: RUQ - Genitourinary Right sided flank area extremely painful and shooting pain to the groin. - Integumentary Severe frail skin all over with multiple bruises had 3 different type of bruises on the right leg and one on the left with no open spot currently. Multiple ecchymosis and Integumentary: no calor, cellulitis, no cyanotic, no decreased turgor, no flushed, no jaundiced, no normal, no normal turgor, pale, rash, no ulcer - Neurologic Neurologic: CNII-XII intact - Musculoskeletal Musculoskeletal: gait normal, generalized weakness, strength equal bilaterally, no right sided weakness, no left sided weakness - Psychiatric Psychiatric: A&O x's 3, appropriate affect - Labs CBC & Chem 7: 10/22/16 08:05 10/22/16 08:05 Labs: Abnormal Lab Results - Last 24 Hours (Table) 10/22/16 10/22/16 10/23/16 Range/Units 17:14 21:08 06:54 POC Glucose (mg/dL) 159 H 204 H 100 H (75-99) mg/dL Microbiology - Last 24 Hours (Table) 10/21/16 16:19 Urine Culture - Final Urine,Voided Assessment and Plan Plan: 1 UTI (sepsis ruled out): Patient was started on Rocephin. 2 large kidney stone in the right side: Urology consult appreciated. lithotripsy for tomorrow. 3 severe lower back pain: Beside her kidney stone pain patient known to have chronic compression disc has been on chronic pain management will resume her hydrocodone and tramadol and Flexeril. 4 flareup continue patient on prednisone with titrated up to 20 mg currently we' ll continue Symbicort and albuterol nebulizer we'll consult Dr. Tyler and was covering Dr. Gallardo. 5 A. fib with RVR: Patient is doing well currently with the current medication she is remain on Tambocor 50 mg twice a day Cardizem 180 mg daily and Eliquis 5 mg twice a day. 6 chronic peritonitis: Patient was on antibiotic and wound VAC for long time has been doing better lately. We'll consult Dr. Herndon who was seen patient originally from original surgery. 7 chronic pain syndrome: Has been on gabapentin, hydrocodone, tramadol, prednisone and Flexeril. 8 hypoglycemia: Keep watching patient for any increased blood sugar Accu-Chek with sliding scales coverage can be requested. 9 severe GERD and hiatal hernia: Has been on omeprazole 20 mg a day. 10 DVT prophylaxis: Patient is on anticoagulation we'll continue knee-high AUGUSTINE hose and Venodyne boots. 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 CODE STATUS: Full code. Discharge plan: Return home Impression and plan of care have been directed as dictated by the signing physician. Sue Castro nurse practitioner acting as scribe for signing physician.
[2016-10-23 16:49] LABS: Glucose,Whole Blood 189 mg/dL (75-99)
[2016-10-23] MEDS ORDERED: ONDANSETRON 4 MG/2 ML VIAL IVP PRN (19:31)
[2016-10-23] MEDS ORDERED: LIDOCAINE 1% 20 ML VIAL (10MG/ML) FOR IV START INTRADERMA PRN (19:31)
[2016-10-23] MEDS ORDERED: fentaNYL (PF) 50 MCG/ML 2 ML AMP IV PRN (19:31)
--- NOTE | 2016-10-23 20:36 | P.PN ---
Progress Note - Text Patient seen and evaluated. She still complains of flank pain. She is pending surgical intervention per urology. Will follow.
[2016-10-23 21:21] LABS: Glucose,Whole Blood 112 mg/dL (75-99)
[2016-10-23] MEDS: MONTELUKAST 10 MG TAB PO SCH (21:44)
[2016-10-24] MEDS: LACTATED RINGERS 1,000 ML IV SCH ×2 (00:02→17:47)
[2016-10-24] MEDS: HYDROmorphone 1 MG/ML 1 ML SYRINGE IV PRN ×6 (01:33→20:58)
[2016-10-24] MEDS: DEXTROSE 5%-0.9% NACL 1,000 ML IV SCH ×2 (06:07→07:52)
[2016-10-24] MEDS: SYMBICORT 160-4.5 MCG INHALER INHALATION SCH ×2 (07:06→19:34)
[2016-10-24] MEDS: ALBUTEROL NEBULIZED 2.5 MG/3 ML INHALATION SCH ×2 (07:06→19:35)
[2016-10-24 07:22] LABS: Glucose,Whole Blood 80 mg/dL (75-99)
[2016-10-24] MEDS: CYCLOBENZAPRINE 5 MG TAB PO SCH ×2 (07:53→20:08)
[2016-10-24] MEDS: DILTIAZEM CD 180 MG CAP.ER.24H PO SCH (07:53)
[2016-10-24] MEDS: PANTOPRAZOLE 40 MG TABLET PO SCH ×2 (07:53→17:51)
[2016-10-24] MEDS: APIXABAN 5 MG TAB PO SCH ×2 (07:53→20:07)
[2016-10-24] MEDS: FLECAINIDE 50 MG TAB PO SCH ×2 (07:53→20:07)
[2016-10-24] MEDS: GABAPENTIN 100 MG CAP PO SCH ×2 (07:53→20:07)
[2016-10-24] MEDS: predniSONE 20 MG TAB PO SCH (07:53)
[2016-10-24] MEDS: LIDOCAINE 5% PATCH TOPICAL SCH (07:55)
[2016-10-24 07:59] LABS: CH 31.9; CHCM 31.1; HCT 37.3 % (34.0-46.0); HDW 2.75; HGB 11.8 gm/dL (11.4-16.0); Hypochromasia Moderate; MCH 32.7 pg (25.0-35.0); MCHC 31.8 g/dL (31.0-37.0); Macrocytosis Slight; Mean Platelet Volume 7.1; RBC 3.62 m/uL (3.80-5.40); WBC 6.7 k/uL (3.8-10.6)
[2016-10-24 08:16] LABS: ALT 27 U/L (9-52); AST 14 U/L (14-36); Alkaline Phosphatase 56 U/L (38-126); Anion Gap 7 mmol/L; Blood Urea Nitrogen 7 mg/dL (7-17); Calcium 8.5 mg/dL (8.4-10.2); Carbon Dioxide 23 mmol/L (22-30); Chloride 110 mmol/L (98-107); Glucose 86 mg/dL (74-99); Non-African American GFR(MDRD) >60 (>60 ml/min/1.73 sqM); Potassium 3.2 mmol/L (3.5-5.1); Sodium 140 mmol/L (137-145); Total Bilirubin 0.2 mg/dL (0.2-1.3)
[2016-10-24] MEDS: POTASSIUM CHLORIDE 20 MEQ, LIDOCAINE 2% INJ 20 MG in SODIUM CHLORIDE 0.9% 100 ML IVPB SCH ×2 (10:38→12:57)
--- NOTE | 2016-10-24 12:30 | P.PN ---
Subjective 66-year-old female one of Dr. Price"s patient who has not seen her yet who apparently had kidney stone diagnosed this last Friday when developed to have right-sided flank pain ended up [facility] and was sent home to return today having severe increased intractable pain radiating to the groin area associated with mild nausea vomiting significant blood in the urine significant change in urine color along with polyuria no daily and frequency. She had low-grade temperature as well ended up coming to [facility] department at a clear and [place] was seen and evaluated her urine was very positive white blood cell was not elevated CT and x-ray from early showed large sided right-sided kidney stone with infection this is diagnosed as an infected kidney stone with sepsis. Patient was started on Rocephin and possible secondary antibiotic will consult urology and admit patient to the hospital with above problem. Patient was hospitalized back in [address] Herndon service with severe abdominal pain and perforation ended up going for partial resection and colostomy. Patient was the hospital for quite long time ended up going to [facility] rehab ended up back in the hospital and in the emergency room few times with intractable pain not control was claimed to be related to the perforated viscus secondary to peritonitis along with back pain from compression fracture. Patient family ended up taking her out of [facility] to go to [facility] where was diagnosed with leak at the time from her ostomy surgery was treated with IV antibiotic with conservative management no surgery was due. Patient ended up spending one month and rehab at [place] and was discharged home not too long ago. Her kidney stone symptoms become problem in the last 10 days only. 10/22: Dr. Robins has evaluated the patient with no immediate plan for surgical intervention but will discuss with Dr. Kuo. She has been afebrile and hemodynamically stable. White count remains normal at 5.9. 10/23: Patient has been seen by Dr. Kuo with plan for right ureteroscopy with lithotripsy for treatment of ureteral calculus which is planned for tomorrow. Patient is complaining of a lot of pain to the right lower quadrant today. She is followed by Dr. Herndon as well. Vital signs have been stable. Urine culture is showing contamination. 10/24: Potassium will be replaced. The patient is scheduled for her procedure today with Dr. Kuo. She continues to have edema to the right arm for which an ultrasound will be ordered. Objective - Vital Signs Vital signs: Vital Signs Temp 96.7 F L 10/24/16 07:00 Pulse 84 10/24/16 07:20 Resp 16 10/24/16 07:00 BP 123/64 10/24/16 07:00 Pulse Ox 96 10/24/16 07:00 Intake & Output 10/23/16 10/24/16 10/24/16 18:59 06:59 18:59 Intake Total 200 3000 Balance 200 3000 Intake: Intake, IV Titration 3000 Amount Dextrose 5%-0.9% NaCl 1, 1000 000 ml @ 70 mls/hr IV . 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 General appearance: cooperative, morbidly obese, no acute distress - EENT Eyes: no abnormal pupil, no disc margins sharp, no edentulous, no EOMI, no PERRLA, no fundus normal, no photophobia, no dentition normal, no poor dentition , no ptosis, no scleral icterus, normal appearance ENT: no hard of hearing, no hearing grossly normal, no NA/AT, normal oropharynx , no other, no pharyngeal erythema, no thrush, no tonsillar exudates, no tonsillar swelling Ears: bilateral: normal - Neck Neck: no lymphadenopathy, normal ROM, no other, no rigidity, no stridor, no thyromegaly Carotids: bilateral: upstroke normal Thyroid: bilateral: normal size - Respiratory Respiratory: bilateral: diminished, dullness, rales, rhonchi, wheezing - Cardiovascular Rhythm: irregularly irregular Heart sounds: normal: S1, S2 Abnormal Heart Sounds: systolic murmur, S3 Gallop - Gastrointestinal Incision midline from her ostomy looks clean with slight granulated tissue and mild keloid. Her ostomy bag and stump looks good with no sign of infection no bloody drainage from the ostomy. General gastrointestinal: no absent bowel sounds, no decreased bowel sounds, distended, no hepatomegaly, no hyperactive bowel sounds, no normal bowel sounds , organomegaly, no rigid, no scaphoid, soft, no splenomegaly, tenderness, no umbilical hernia, no ventral hernia Localized gastrointestinal: tender: RUQ - Genitourinary Right sided flank area extremely painful and shooting pain to the groin. - Integumentary Severe frail skin all over with multiple bruises had 3 different type of bruises on the right leg and one on the left with no open spot currently. Multiple ecchymosis and Integumentary: no calor, cellulitis, no cyanotic, no decreased turgor, no flushed, no jaundiced, no normal, no normal turgor, pale, rash, no ulcer - Neurologic Neurologic: CNII-XII intact - Musculoskeletal Musculoskeletal: gait normal, generalized weakness, strength equal bilaterally, no right sided weakness, no left sided weakness - Psychiatric Psychiatric: A&O x's 3, appropriate affect - Labs CBC & Chem 7: 10/24/16 07:45 10/24/16 07:45 Labs: Abnormal Lab Results - Last 24 Hours (Table) 10/23/16 10/23/16 10/23/16 Range/Units 12:10 16:47 21:08 RBC (3.80-5.40) m/uL MCV (80.0-100.0) fL Potassium (3.5-5.1) mmol/L Chloride (98-107) mmol/L POC Glucose (mg/dL) 131 H 189 H 112 H (75-99) mg/dL Total Protein (6.3-8.2) g/dL Albumin (3.5-5.0) g/dL 10/24/16 10/24/16 Range/Units 07:45 07:45 RBC 3.62 L (3.80-5.40) m/uL MCV 103.0 H (80.0-100.0) fL Potassium 3.2 L (3.5-5.1) mmol/L Chloride 110 H (98-107) mmol/L POC Glucose (mg/dL) (75-99) mg/dL Total Protein 5.0 L (6.3-8.2) g/dL Albumin 2.8 L (3.5-5.0) g/dL Assessment and Plan Plan: 1 UTI (sepsis ruled out): Patient was started on Rocephin. 2 large kidney stone in the right side: Urology consult appreciated. lithotripsy for tomorrow. 3 severe lower back pain: Beside her kidney stone pain patient known to have chronic compression disc has been on chronic pain management will resume her hydrocodone and tramadol and Flexeril. 4 flareup continue patient on prednisone with titrated up to 20 mg currently we' ll continue Symbicort and albuterol nebulizer we'll consult Dr. Tyler and was covering Dr. Gallardo. 5 A. fib with RVR: Patient is doing well currently with the current medication she is remain on Tambocor 50 mg twice a day Cardizem 180 mg daily and Eliquis 5 mg twice a day. 6 chronic peritonitis: Patient was on antibiotic and wound VAC for long time has been doing better lately. We'll consult Dr. Herndon who was seen patient originally from original surgery. 7 chronic pain syndrome: Has been on gabapentin, hydrocodone, tramadol, prednisone and Flexeril. 8 hypoglycemia: Keep watching patient for any increased blood sugar Accu-Chek with sliding scales coverage can be requested. 9 severe GERD and hiatal hernia: Has been on omeprazole 20 mg a day. 10 DVT prophylaxis: Patient is on anticoagulation we'll continue knee-high AUGUSTINE hose and Venodyne boots. 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 12 edema to the right arm. Ultrasound will be ordered to rule out DVT. CODE STATUS: Full code. Discharge plan: Return home Impression and plan of care have been directed as dictated by the signing physician. Sue Castro nurse practitioner acting as scribe for signing physician.
--- NOTE | 2016-10-24 14:41 | US ---
EXAMINATION TYPE: US venous doppler duplex UE RT DATE OF EXAM: 10/24/2016 COMPARISON: NONE CLINICAL HISTORY: edema. Right arm edema SIDE PERFORMED: Right Grayscale, color doppler, spectral doppler imaging performed of the deep veins of the upper extremity . There is normal flow, compressability and vascular waveforms. Right Arm: Negative for DVT IMPRESSION: No evidence for DVT.
[2016-10-24] MEDS ORDERED: IV FLUID CONTINUATION 750 ML IV ONE (15:15)
--- NOTE | 2016-10-24 15:21 | CDI ---
In responding to this query, please exercise your independent professional judgment. The [facility] Coding Staff and Clinical Documentation Specialists appreciate your assistance in clarifying documentation, maintaining compliance with coding guidelines, accurately documenting patients condition and capturing severity of illness. The fact that a question is asked does not imply that any particular answer is desired or expected. Communication forms are a method of clarifying documentation and are not made part of the Legal Health Record. Thank you in advance for your clarification. Last Revision, February 2015 Grace Swain [address] [place] [address] Documentation Clarification Form Date: 10/24/2016 3:14:00 PM From: Mariella Be RN, CCDS Admit Date: 10/21/2016 6:31:00 PM Patient Name: Angelique Boyle Visit Number: [id number] Dr. Talamantes/ Sue Castro CNP Atrial fibrillation is documented in the H&P and Progress Notes. History/Risk Factors: Asthma, Ca, gerd Clinical Indicators: 10/24 Attending Progress Note: "Afib with RVR: Patient is doing well currently with the current medication she is remain on Tambocor 50 mg twice a day Cardizem 180 mg daily and Eliquis 5 mg twice a day." EKG/telemetry: Atrial Fib Treatment: See above In your professional opinion, can you please clarify the type of atrial fibrillation, if known? Chronic/Permanent Paroxysmal Persistent Other, please specify Unable to determine Please document in your progress notes and discharge summary in order to capture severity of illness and risk of mortality. Include clinical findings that support your diagnosis. FYI: Press F11 to launch patient chart Place X here if this finding has no clinical significance, is not applicable or if you are not able to provide any additional documentation. ESTELA
[2016-10-24] MEDS ORDERED: HYDROCORTISONE SUCCINATE 100 MG/2 ML VIAL IV ONE (15:35)
[2016-10-24 15:48] LABS: Glucose,Whole Blood 64 mg/dL (75-99)
[2016-10-24 16:18] LABS: Glucose,Whole Blood 80 mg/dL (75-99)
[2016-10-24] MEDS ORDERED: SUCCINYLCHOLINE CHLORIDE 100 MG/5 ML SYR IV ONE (16:26)
[2016-10-24] MEDS ORDERED: LIDOCAINE 1% INJ 10MG/ML (20 ML MDV) ONE (16:26)
[2016-10-24] MEDS ORDERED: ePHEDrine 50 MG/ML 1 ML AMP ONE (16:26)
[2016-10-24] MEDS ORDERED: fentaNYL (PF) 50 MCG/ML 2 ML AMP ONE (16:26)
[2016-10-24] MEDS ORDERED: PROPOFOL 10 MG/ML 20 ML VIAL IV ONE (16:26)
[2016-10-24] MEDS ORDERED: MIDAZOLAM 2 MG/2 ML VIAL ONE (16:26)
[2016-10-24] MEDS ORDERED: IOHEXOL 350 MG/ML 50ML BOTTLE MISCELLANE ONE (16:45)
--- NOTE | 2016-10-24 17:13 | P.OP ---
Date of Procedure: 10/24/16 Preoperative Diagnosis: Right ureteral calculus Postoperative Diagnosis: Normal exam Procedure(s) Performed: Cystoscopy with right retrograde pyeloureterogram Implants: Anesthesia: SHERRIA Surgeon: Mirza Kuo Pathology: none sent Condition: stable Disposition: PACU Indications for Procedure: The patient is a 66-year-old female who was admitted several days ago with severe right flank and right-sided abdominal pain. Computed tomography scan of the abdomen and pelvis identified a 2.5 x 4 mm proximal right ureteral calculus with mild hydronephrosis. A nonobstructive 2.3 cm long branched calculus was also noted in the upper pole of the right kidney. The patient has continued to have intermittent pain. It's unclear whether she has passed the ureteral calculus as she has not been straining her urine. Cystoscopy with right retrograde pyelogram and possible ureteroscopy with lithotripsy is planned for further evaluation. Description of Procedure: The patient was taken to the operating suite where general anesthesia via orotracheal intubation was instituted. The patient was placed in the dorsal lithotomy position with her legs suspended from padded Greg stirrups. Pneumatic compression stockings were applied to the lower legs. The genitalia was prepped with Betadine soap painted with Betadine solution and draped in a sterile fashion. The external genitalia and urethral meatus were unremarkable. The 22-Czech cystoscope sheath with 30 lens was passed through the urethra and into the bladder. Both ureteral orifices were of normal location and configuration and effluxed clear urine. The bladder was free of tumor, foreign body and diverticulum. A right retrograde pyeloureterogram was performed using an 8-Czech cone-tipped catheter. The entire ureter was examined using fluoroscopy and there was no evidence of filling defect along its course. The renal pelvis and proximal ureter was examined following the retrograde study and the contrast promptly drained from the kidney and proximal ureter. The findings were consistent with previous passage of a ureteral calculus. Patient tolerated procedure well and left the operating room awake and in satisfactory condition. Patient's larger calculus in the upper pole of the right kidney will require treatment with percutaneous nephrostolithotomy but this will be deferred until a later date.
[2016-10-24 17:18] LABS: Glucose,Whole Blood 111 mg/dL (75-99)
[2016-10-24] MEDS: MONTELUKAST 10 MG TAB PO SCH (20:08)
[2016-10-25] MEDS: HYDROmorphone 1 MG/ML 1 ML SYRINGE IV PRN ×4 (00:29→10:56)
--- NOTE | 2016-10-25 07:26 | FL ---
Fluoroscopy INDICATION: Pain FINDINGS: Fluoroscopy time: 8 seconds. Images obtained: 3. Right retrograde ureterogram IMPRESSIONS: 1. Documentation of fluoroscopy.
[2016-10-25 07:43] VITALS: BP 124/64; RESP 16; TEMP 97.3
--- NOTE | 2016-10-25 07:44 | P.PN ---
Progress Note - Text Patient seen and evaluated immediately following her urological intervention. Her pain is controlled. Family is at bedside. No reports of abdominal pain from her stoma. Patient may follow up as an outpatient when medically cleared.
[2016-10-25] MEDS: predniSONE 20 MG TAB PO SCH (07:53)
[2016-10-25] MEDS: PANTOPRAZOLE 40 MG TABLET PO SCH (07:53)
[2016-10-25] MEDS: GABAPENTIN 100 MG CAP PO SCH (07:53)
[2016-10-25] MEDS: APIXABAN 5 MG TAB PO SCH (07:53)
[2016-10-25] MEDS: CYCLOBENZAPRINE 5 MG TAB PO SCH (07:53)
[2016-10-25] MEDS: DILTIAZEM CD 180 MG CAP.ER.24H PO SCH (07:54)
[2016-10-25] MEDS: LIDOCAINE 5% PATCH TOPICAL SCH (07:54)
[2016-10-25] MEDS: FLECAINIDE 50 MG TAB PO SCH (07:54)
[2016-10-25 09:33] LABS: Anion Gap 9 mmol/L; Blood Urea Nitrogen 5 mg/dL (7-17); Calcium 8.5 mg/dL (8.4-10.2); Carbon Dioxide 24 mmol/L (22-30); Chloride 110 mmol/L (98-107); Glucose 73 mg/dL (74-99); Non-African American GFR(MDRD) >60 (>60 ml/min/1.73 sqM); Potassium 3.7 mmol/L (3.5-5.1); Sodium 143 mmol/L (137-145)
[2016-10-25] MEDS: SYMBICORT 160-4.5 MCG INHALER INHALATION SCH (09:51)
--- NOTE | 2016-10-25 10:01 | CDI ---
In responding to this query, please exercise your independent professional judgment. The [facility] Coding Staff and Clinical Documentation Specialists appreciate your assistance in clarifying documentation, maintaining compliance with coding guidelines, accurately documenting patients condition and capturing severity of illness. The fact that a question is asked does not imply that any particular answer is desired or expected. Communication forms are a method of clarifying documentation and are not made part of the Legal Health Record. Thank you in advance for your clarification. Last Revision, June 2015 Grace Swain [address] [place] [address] Documentation Clarification Form Date: 10/25/2016 9:50:00 AM From: Mariella Be RN, CCDS Admit Date: 10/21/2016 6:31:00 PM Patient Name: Angelique Boyle Visit Number: [id number] Dr. Talamantes/ Sue Castro CNP Asthma is documented in the Attending progress notes and H&P Patient history/risk factors: Asthma, atrial fib. 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 With Acute Exacerbation Status asthmaticus Acute lower respiratory infection COPD (specify with or without exacerbation) Chronic obstructive bronchitis Other, please specify Unable to determine Severity Mild intermittent Mild persistent Moderate persistent Severe persistent Other, please specify ____ Unable to determine Form or Type Cough variant Childhood Exercise induced bronchospasm Extrinsic allergic Idiosyncratic Intrinsic nonallergic Late-onset Mixed Other, please specify Unable to determine Please document in your progress notes and discharge summary in order to capture severity of illness and risk of mortality. Include clinical findings that support your diagnosis. FYI: Press F11 to launch patient chart. Place X here if this finding has no clinical significance, is not applicable or if you are not able to provide any additional documentation. Chronic mild persistent asthma without exacerbation MTDD
[2016-10-25] MEDS: ALBUTEROL NEBULIZED 2.5 MG/3 ML INHALATION SCH (11:08)
[2016-10-25 11:23] VITALS: PULSE 90
[2016-10-25] MEDS: DEXTROSE 5%-0.9% NACL 1,000 ML IV SCH (11:59)
--- NOTE | 2016-10-25 12:27 | P.DS ---
Providers Date of admission: 10/21/16 18:31 Expected date of discharge: 10/25/16 Attending physician: Shabbir Peres Consults: 10/21/16 17:16 Consult Physician Urgent Consulting Provider: Jose Schreiber Consult Reason/Comments: infected kidney stone Do you want consulting provider notified?: Yes 10/21/16 19:22 Consult Physician Routine Consulting Provider: Renae Herndon Consult Reason/Comments: abd pain Do you want consulting provider notified?: Yes Primary care physician: Lindsey [facility] Course: 66-year-old female one of Dr. Price"s patient who has not seen her yet who apparently had kidney stone diagnosed this last Friday when developed to have right-sided flank pain ended up in [facility] and was sent home to return today having severe increased intractable pain radiating to the groin area associated with mild nausea vomiting significant blood in the urine significant change in urine color along with polyuria no daily and frequency. She had low-grade temperature as well ended up coming to [facility] department at a clear and [place] was seen and evaluated her urine was very positive white blood cell was not elevated CT and x-ray from early showed large sided right-sided kidney stone with infection this is diagnosed as an infected kidney stone with sepsis. Patient was started on Rocephin and possible secondary antibiotic will consult urology and admit patient to the hospital with above problem. Patient was hospitalized back in [address] Herndon service with severe abdominal pain and perforation ended up going for partial resection and colostomy. Patient was the hospital for quite long time ended up going to [facility] rehab ended up back in the hospital and in the emergency room few times with intractable pain not control was claimed to be related to the perforated viscus secondary to peritonitis along with back pain from compression fracture. Patient family ended up taking her out of [facility] to go to [facility] where was diagnosed with leak at the time from her ostomy surgery was treated with IV antibiotic with conservative management no surgery was due. Patient ended up spending one month and rehab at [place] and was discharged home not too long ago. Her kidney stone symptoms become problem in the last 10 days only. 10/22: Dr. Robins has evaluated the patient with no immediate plan for surgical intervention but will discuss with Dr. Kuo. She has been afebrile and hemodynamically stable. White count remains normal at 5.9. 10/23: Patient has been seen by Dr. Kuo with plan for right ureteroscopy with lithotripsy for treatment of ureteral calculus which is planned for tomorrow. Patient is complaining of a lot of pain to the right lower quadrant today. She is followed by Dr. Herndon as well. Vital signs have been stable. Urine culture is showing contamination. 10/24: Potassium will be replaced. The patient is scheduled for her procedure today with Dr. Kuo. She continues to have edema to the right arm for which an ultrasound will be ordered. 10/25: Ultrasound of the right upper extremity was negative for DVT. Patient underwent a cystoscopy with right retrograde pyeloureterogram. Findings were consistent with previous passage of ureteral calculus. Dr. Herndon has recommended follow-up as an outpatient. Patient has been afebrile. Patient will be discharged home today in stable condition. Patient is requesting a number of her medications be refilled which will be done. Patient will be discharged on Ceftin as well. Discharge diagnoses: 1 UTI (sepsis ruled out) 2 large kidney stone in the right side 3 severe lower back pain: Beside her kidney stone pain and chronic compression disc with chronic pain management 4 mild persistent asthma, stable 5 A. 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 Discharge plan: Return home Impression and plan of care have been directed as dictated by the signing physician. Sue Castro nurse practitioner acting as scribe for signing physician. Patient Condition at Discharge: Good Plan - Discharge Summary New Discharge Prescriptions: New RX: Apixaban [Eliquis] 5 mg PO BID #60 tab RX: Cyclobenzaprine [Flexeril] 5 mg PO BID #60 tab RX: Flecainide [Tambocor] 50 mg PO Q12HR #60 tab RX: Gabapentin [Neurontin] 100 mg PO DAILY #30 cap RX: Gabapentin [Neurontin] 200 mg PO HS #60 cap RX: Lidocaine 5% Patch [Lidoderm 5% Patch] 1 patch TOPICAL DAILY #30 patch Cefuroxime Axetil [Ceftin] 500 mg PO BID #14 tab Continue RX: Albuterol Sulfate [Proventil Hfa] 2 puff INHALATION RT-Q6H PRN PRN Reason: Shortness Of Breath RX: Omeprazole 20 mg PO BID RX: Budesonide/Formoterol Fumarate [Symbicort 160-4.5 Mcg Inhaler] 2 puff INHALATION RT-BID RX: Albuterol Nebulized [Ventolin Nebulized] 2.5 mg INHALATION RT-BID RX: Montelukast [Singulair] 10 mg PO HS RX: traMADol HCL [Ultram] 50 mg PO Q6H PRN PRN Reason: Pain RX: predniSONE 10 mg PO DAILY RX: Acetaminophen Tab [Tylenol] 500 mg PO Q6H PRN PRN Reason: Pain RX: Diltiazem HCl [Cartia Xt] 180 mg PO DAILY #30 cap RX: HYDROcodone/APAP 7.5-325MG [[place] 7.5-325] 1 tab PO Q6H PRN #30 tab PRN Reason: Pain Discharge Medication List RX: Albuterol Nebulized [Ventolin Nebulized] 2.5 mg INHALATION RT-BID 07/22/16 [ History] RX: Albuterol Sulfate [Proventil Hfa] 2 puff INHALATION RT-Q6H PRN 07/22/16 [ History] RX: Budesonide/Formoterol Fumarate [Symbicort 160-4.5 Mcg Inhaler] 2 puff INHALATION RT-BID 07/22/16 [History] RX: Montelukast [Singulair] 10 mg PO HS 07/22/16 [History] RX: Omeprazole 20 mg PO BID 07/22/16 [History] RX: traMADol HCL [Ultram] 50 mg PO Q6H PRN 09/27/16 [History] RX: Acetaminophen Tab [Tylenol] 500 mg PO Q6H PRN 10/21/16 [History] RX: predniSONE 10 mg PO DAILY 10/21/16 [History] Cefuroxime Axetil [Ceftin] 500 mg PO BID #14 tab 10/25/16 [Rx] RX: Apixaban [Eliquis] 5 mg PO BID #60 tab 10/25/16 [Rx] RX: Cyclobenzaprine [Flexeril] 5 mg PO BID #60 tab 10/25/16 [Rx] RX: Diltiazem HCl [Cartia Xt] 180 mg PO DAILY #30 cap 10/25/16 [Rx] RX: Flecainide [Tambocor] 50 mg PO Q12HR #60 tab 10/25/16 [Rx] RX: Gabapentin [Neurontin] 100 mg PO DAILY #30 cap 10/25/16 [Rx] RX: Gabapentin [Neurontin] 200 mg PO HS #60 cap 10/25/16 [Rx] RX: HYDROcodone/APAP 7.5-325MG [[place] 7.5-325] 1 tab PO Q6H PRN #30 tab [Rx] RX: Lidocaine 5% Patch [Lidoderm 5% Patch] 1 patch TOPICAL DAILY #30 patch 10/25 [Rx] Follow up Appointment(s)/Referral(s): Lindsey Price MD [Primary Care Provider] - 10/30/16 5:15 pm Renae Herndon MD [STAFF PHYSICIAN] - 2 Weeks [facility], [NON-STAFF] - Mirza Kuo MD [STAFF PHYSICIAN] - 2 Weeks Patient Instructions/Handouts: Kidney Stones (DC), Potassium Content of Foods List (DC) Activity/Diet/Wound Care/Special Instructions: Fall precautions, up with assistance. Cardiac diet.
== END 2016-10-25 12:50 | disposition home health service (06) | DRG 693 ==
LOC: EC 15:00 → 4MS4W 18:31
PROVIDERS: ADMIT Internal Medicine Geriatric Medicine; ATTEND Internal Medicine Geriatric Medicine
PROC: BT1D1ZZ Fluoroscopy of Right Kidney, Ureter and Bladder using Low Osmolar Contrast (ICD-10-PCS; 2016-10-24)
PROC: 0TJB8ZZ Inspection of Bladder, Via Natural or Artificial Opening Endoscopic (ICD-10-PCS; principal; 2016-10-24 15:30)
DX: N13.2 Hydronephrosis with renal and ureteral calculous obstruction (principal); K65.8 Other peritonitis; I48.0 Paroxysmal atrial fibrillation; E24.9 Cushing's syndrome, unspecified; N39.0 Urinary tract infection, site not specified; J45.30 Mild persistent asthma, uncomplicated; K21.9 Gastro-esophageal reflux disease without esophagitis; R23.3 Spontaneous ecchymoses; T50.1X5A Adverse effect of loop [high-ceiling] diuretics, initial encounter; E16.2 Hypoglycemia, unspecified; K57.30 Diverticulosis of large intestine without perforation or abscess without bleeding; M81.0 Age-related osteoporosis without current pathological fracture; M48.54XD Collapsed vertebra, not elsewhere classified, thoracic region, subsequent encounter for fracture with routine healing; M48.56XD Collapsed vertebra, not elsewhere classified, lumbar region, subsequent encounter for fracture with routine healing; R60.0 Localized edema; G89.4 Chronic pain syndrome; K44.9 Diaphragmatic hernia without obstruction or gangrene; Z80.0 Family history of malignant neoplasm of digestive organs; Z79.899 Other long term (current) drug therapy; Z79.51 Long term (current) use of inhaled steroids; Z79.01 Long term (current) use of anticoagulants; Z90.49 Acquired absence of other specified parts of digestive tract; Z79.52 Long term (current) use of systemic steroids; Z85.828 Personal history of other malignant neoplasm of skin; Z93.3 Colostomy status; Z87.442 Personal history of urinary calculi; Z88.8 Allergy status to other drugs, medicaments and biological substances; Z79.891 Long term (current) use of opiate analgesic; Z98.51 Tubal ligation status; Z98.42 Cataract extraction status, left eye; Z87.440 Personal history of urinary (tract) infections; Z86.19 Personal history of other infectious and parasitic diseases
CPT/HCPCS: 36415; 74420; 80048; 80053; 81001; 82150; 83690; 83735; 85025; 85027; 87086; 94640; 96361; 96374; 96375; 99285

== ENCOUNTER → 2016-12-18 | Outpatient (CLI) | payer BC, MEDICARE ==
[2016-12-18 10:35] LABS: CH 32.2; HCT 44.7 % (34.0-46.0); HDW 2.37; HGB 14.1 gm/dL (11.4-16.0); MCH 31.8 pg (25.0-35.0); MCHC 31.5 g/dL (31.0-37.0); MCV 100.8 fL (80.0-100.0); Macrocytosis Slight; Mean Platelet Volume 7.5; RBC 4.43 m/uL (3.80-5.40); RDW 15.1 % (11.5-15.5); WBC 10.9 k/uL (3.8-10.6)
[2016-12-18 10:44] LABS: Anion Gap 10 mmol/L; Blood Urea Nitrogen 13 mg/dL (7-17); Calcium 9.2 mg/dL (8.4-10.2); Carbon Dioxide 28 mmol/L (22-30); Chloride 104 mmol/L (98-107); Glucose 91 mg/dL (74-99); Non-African American GFR(MDRD) >60 (>60 ml/min/1.73 sqM); Potassium 4.3 mmol/L (3.5-5.1); Sodium 142 mmol/L (137-145)
[2016-12-18 11:23] LABS: Partial Thromboplastin Time 23.8 sec (22.0-30.0); Prothrombin Time 9.8 sec (9.0-12.0)
== END | disposition home or self-care (01) ==
LOC: LABPAT 09:57
PROVIDERS: ATTEND Surgery Plastic and Reconstructive Surgery
DX: Z01.812 Encounter for preprocedural laboratory examination (principal); K57.30 Diverticulosis of large intestine without perforation or abscess without bleeding; K82.8 Other specified diseases of gallbladder
CPT/HCPCS: 80048; 85027; 85610; 85730

== ENCOUNTER 2016-12-20 10:19 | Inpatient (IN) | payer BC, MEDICARE ==
[2016-12-16 12:47] VITALS: BMI 29.5
--- NOTE | 2016-12-19 20:30 | P.GSHP ---
History of Present Illness H&P Date: 12/20/16 CHIEF COMPLAINT: History of colostomy and cholecystitis. HISTORY OF PRESENT ILLNESS: Agnelique Boyle is a 66 years-old female who comes in with a history of biliary dyskinesia including ruptured diverticulitis. She quotes I feel the best I have ever been.. She is more than 3 months out and is now seeking reversal including cholecystectomy. She spent 4 months in rehabilitation for chronic lower back pain including multiple fractures. She now presents for further evaluation and management. ement. PAST MEDICAL HISTORY: Please see list. PAST SURGICAL HISTORY: Please see list. MEDICATIONS: Please see list. ALLERGIES: Please see list. SOCIAL HISTORY: No illicit drug use FAMILY HISTORY: No reports of Crohn disease or ulcerative colitis. REVIEW OF ORGAN SYSTEMS: Respiratory: History of COPD, steroid dependent. Endocrine: Chronic steroid use, including no reports of diabetes. CONSTITUTIONAL: No fevers or chills. HEENT: Denies any trouble with vision, hearing or nosebleeds. No difficulty swallowing. LYMPHATIC: The patient denies any lumps and bumps around the neck. CARDIOVASCULAR: Denies any chest pain, palpitations, or recent heart attacks. GASTROINTESTINAL: Denies fatty food intolerance. Denies change in bowel habits and gas bloat. GENITOURINARY: Denies any blood in urine or increased urinary frequency. MUSCULOSKELETAL: Has back pain, stiffness or joint arthritis. NEUROLOGIC: Denies any numbness or tingling along the distal extremities. No seizure disorders or headaches. PSYCHIATRIC: Denies any depression or suicidal ideation. HEMATOLOGIC: Denies any abnormal bleeding or bruising. BREASTS: Denies any current breast lumps, pain or nipple discharge. PHYSICAL EXAM: Patient is a 66-year-old female. Abdomen: Colostomy intact without parastomal hernia. Midline well granulated. GENERAL: Well developed and in no acute distress. Pleasant. HEENT: No sclera icterus. Extraocular movements grossly intact. Moist buccal mucosa. Head is atraumatic, normocephalic. Hears conversational speech. No nasal drainage. NECK: Supple without lymphadenopathy. No JV distention. CHEST: Non-labored respirations and equal bilateral excursions. CARDIOVASCULAR: Regular rate and rhythm. Palpable 2+ radial pulses. MUSCULOSKELETAL: No clubbing, cyanosis or edema. NEUROLOGIC: No focal or lateralizing signs. PSYCH: Appropriate affect. Alert and oriented to person, place and time. SKIN: Well perfused. Good skin turgor. ASSESSMENT: 1. History of perforated diverticulitis. 2. Steroid induced COPD. 3. History of chronic cholecystitis. PLAN: 1. I have recommended laparoscopic cholecystectomy, as she has been symptomatic in the last several months from her gallbladder. 2. I have also recommended colostomy reversal, ideally laparoscopic approach with possibility of open technique. 3. Inpatient hospitalization anticipated for over 2 nights. 4. DVT prophylaxis. 5. Antibiotics prophylaxis. 6. Recommended stress doses of steroids of at least 100 mg every 8 IV. 7. Benefits and risks of surgical intervention were reviewed in detail including possibility of open technique. 8. Robotic-assisted approach also reviewed. Past Medical History Past Medical History: Atrial Fibrillation, Asthma, Coronary Artery Disease (CAD) , Cancer, Heart Failure, GERD/Reflux Additional Past Medical History / Comment(s): Bronchial asthma, compression fracture of the T-spine, osteoporosis, skin cancer, history of sepsis of urinary source, sigmoid diverticulosis, compression fracture of the L2 spine, compression fracture of the T12 spine, compression fracture of the T7 spine,CHF , KIDNEY STONE History of Any Multi-Drug Resistant Organisms: None Reported Past Surgical History: Appendectomy, Bowel Resection, Tubal Ligation Additional Past Surgical History / Comment(s): CATARACT LEFT EYE WITH REPAIR OF MACULAR HOLE. Colonoscopy, 2015. bowel resection with colostomy, CYSTOSCOPY W/ RT RETROGRADE PYELOURETEROGRAM 10/21 Past Anesthesia/Blood Transfusion Reactions: No Reported Reaction Smoking Status: Never smoker - Past Family History Mother Family Medical History: Cancer Additional Family Medical History / Comment(s): COLON CANCER in Mother Medications and Allergies Home Medications Medication Instructions Recorded Confirmed Type Albuterol Nebulized [Ventolin 2.5 mg INHALATION RT-BID 07/22/16 12/16/16 History Nebulized] Albuterol Sulfate [Proventil Hfa] 2 puff INHALATION RT-Q6H PRN 07/22/16 History Budesonide/Formoterol Fumarate 2 puff INHALATION RT-BID 07/22/16 12/16/16 History [Symbicort 160-4.5 Mcg Inhaler] Montelukast [Singulair] 10 mg PO HS 07/22/16 12/16/16 History Omeprazole 20 mg PO BID 07/22/16 12/16/16 History traMADol HCL [Ultram] 50 mg PO Q6H PRN 09/27/16 12/16/16 History Acetaminophen Tab [Tylenol] 500 mg PO Q6H PRN 10/21/16 12/16/16 History predniSONE 10 mg PO DAILY 10/21/16 12/16/16 History Apixaban [Eliquis] 5 mg PO BID #60 tab 10/25/16 12/16/16 Rx Cefuroxime Axetil [Ceftin] 500 mg PO BID #14 tab 10/25/16 12/16/16 Rx Cyclobenzaprine [Flexeril] 5 mg PO BID #60 tab 10/25/16 12/16/16 Rx Diltiazem HCl [Cartia Xt] 180 mg PO DAILY #30 cap 10/25/16 12/16/16 Rx Flecainide [Tambocor] 50 mg PO Q12HR #60 tab 10/25/16 12/16/16 Rx Gabapentin [Neurontin] 200 mg PO HS #60 cap 10/25/16 12/16/16 Rx HYDROcodone/APAP 7.5-325MG [[place] 1 tab PO Q6H PRN #30 tab 10/25/16 12/16/16 Rx 7.5-325] Lidocaine 5% Patch [Lidoderm 5% 1 patch TOPICAL DAILY #30 patch 10/25/16 Rx Patch] Allergies Allergy/AdvReac Type Severity Reaction Status Date / Time furosemide [From Lasix] Allergy Rash/Hives Verified 12/16/16 12:42
[~2016-12-20 10:19] MED LIST: ACETAMINOPHEN IV (For NPO) 1,000 MG in EMPTY BAG 1 BAG IVPB ONE; ALVIMOPAN 12 MG CAPSULE PO ONE; HEPARIN SODIUM,PORCINE 5,000 UNIT/ML 1 ML VIAL SQ ONE; SCOPOLAMINE 1.5MG/72HR PATCH TRANSDERM STA; ceFAZolin 2 GM in SODIUM CHLORIDE 0.9% 100 ML IVPB ONE; metroNIDAZOLE-NS PMX 500 MG in SALINE 1 100ML.BAG IVPB ONE
[2016-12-20 10:57] LABS: Glucose,Whole Blood 94 mg/dL (75-99)
[2016-12-20] MEDS ORDERED: LACTATED RINGERS 1,000 ML IV ONE ×10 (11:12→18:19)
[2016-12-20] MEDS ORDERED: LIDOCAINE 1% 20 ML VIAL (10MG/ML) FOR IV START INTRADERMA ONE (11:13)
[2016-12-20] MEDS: HYDROCORTISONE SUCCINATE 100 MG/2 ML VIAL IV STA ×2 (11:20→11:25)
[2016-12-20] MEDS ORDERED: SUCCINYLCHOLINE CHLORIDE 100 MG/5 ML SYR IV ONE (12:59)
[2016-12-20] MEDS ORDERED: MIDAZOLAM 2 MG/2 ML VIAL ONE (12:59)
[2016-12-20] MEDS ORDERED: HYDROmorphone (PF) 1 MG/ML ONE (12:59)
[2016-12-20] MEDS ORDERED: LIDOCAINE 1% INJ 10MG/ML (20 ML MDV) ONE (12:59)
[2016-12-20] MEDS ORDERED: fentaNYL (PF) 50 MCG/ML 2 ML AMP ONE (12:59)
[2016-12-20] MEDS ORDERED: DEXAMETHASONE SOD PHOS (MDV) 100 MG/10 ML VIAL ONE (12:59)
[2016-12-20] MEDS ORDERED: ROCURONIUM BROMIDE 10 MG/ML 10 ML VIAL IV ONE (12:59)
[2016-12-20] MEDS ORDERED: PROPOFOL 10 MG/ML 20 ML VIAL IV ONE (12:59)
[2016-12-20] MEDS ORDERED: MORPHINE SULFATE 10 MG/ML SYRINGE ONE (12:59)
[2016-12-20] MEDS ORDERED: GLYCOPYRROLATE 0.2 MG/ML 2 ML VIAL ONE (12:59)
[2016-12-20] MEDS ORDERED: BUPIVACAINE (PF) 0.25% 30 ML VIAL SQ ONE (13:57)
[2016-12-20 20:29] LABS: Glucose,Whole Blood 129 mg/dL (75-99)
[2016-12-20] MEDS ORDERED: PROPOFOL 1,000 MG/100 ML VIAL IV ONE (20:33)
[2016-12-20] MEDS ORDERED: METOCLOPRAMIDE 5 MG/ML 2 ML VIAL IVP PRN (20:52)
[2016-12-20] MEDS ORDERED: ONDANSETRON 4 MG/2 ML VIAL IVP PRN (20:52)
[2016-12-20] MEDS ORDERED: NALOXONE 0.4 MG/ML 1 ML VIAL IV PRN (20:55)
--- NOTE | 2016-12-20 20:56 | XR ---
EXAMINATION TYPE: XR chest 1V portable DATE OF EXAM: 12/20/2016 COMPARISON: 09/27/2016 HISTORY: Intubated short of breath TECHNIQUE: Single frontal view of the chest is obtained. FINDINGS: Endotracheal tube appears in good position approximately 3 to 4 cm from the ara. There is a nasogastric tube in good position. There is no heart failure. There is possible interstitial rig ht upper lobe pulmonary infiltrate. I see no evidence of pleural effusion. IMPRESSION: Possible new mild infiltrate in the right upper lobe compared to last exam. Endotracheal tube appears in good position.
[2016-12-20 20:59] LABS: Basophils % (A) 0 %; CH 31.5; CHCM 31.9; Eosinophils # (A) 0.1 k/uL (0-0.7); Eosinophils % (A) 1 %; HCT 39.3 % (34.0-46.0); HDW 2.37; HGB 12.9 gm/dL (11.4-16.0); Luc # (Auto) 0.05; Luc % (Auto) 0; Lymphocytes # (A) 0.4 k/uL (1.0-4.8); Lymphocytes % (A) 3 %; MCH 32.4 pg (25.0-35.0); MCHC 32.8 g/dL (31.0-37.0); MCV 98.9 fL (80.0-100.0); Mean Platelet Volume 7.4; Monocytes # (A) 0.7 k/uL (0-1.0); Monocytes % (A) 5 %; Neutrophils # (A) 12.9 k/uL (1.3-7.7); Neutrophils % (A) 92 %; RBC 3.97 m/uL (3.80-5.40); RDW 14.3 % (11.5-15.5); WBC 14.1 k/uL (3.8-10.6)
[2016-12-20 21:08] LABS: ABG Base Excess -1.5 mmol/L; ABG HCO3 22 mmol/L (21-25); ABG PCO2 36 mmHg (35-45); ABG PH 7.41 (7.35-7.45); ABG PO2 >400 mmHg (83-108); ABG TCO2 24 mmol/L (19-24)
[2016-12-20 21:08] LABS: Anion Gap 9 mmol/L; Blood Urea Nitrogen 15 mg/dL (7-17); Calcium 8.5 mg/dL (8.4-10.2); Carbon Dioxide 22 mmol/L (22-30); Chloride 105 mmol/L (98-107); Glucose 142 mg/dL (74-99); Magnesium 1.6 mg/dL (1.6-2.3); Non-African American GFR(MDRD) >60 (>60 ml/min/1.73 sqM); Potassium 4.6 mmol/L (3.5-5.1); Sodium 136 mmol/L (137-145)
--- NOTE | 2016-12-20 21:10 | P.PCN ---
Date of Procedure: 12/20/16 Preoperative Diagnosis: 1. History of perforated diverticulitis with sepsis and abscess resulting in descending colostomy. 2. Attention to descending colostomy. 3. Severe COPD with oxygen dependency. 4. Steroid-dependent COPD. 5. Chronic pain syndrome with chronic back pain. 6. Atrial fibrillation. 7. Congestive heart failure. 8. Chronic cholecystitis. 9. Right upper quadrant abdominal pain. 10. Personal history of multiple compression fractures of the thoracic lumbar spine. Postoperative Diagnosis: 1. Same. 2. Severe diffuse peritoneal adhesions involving the small bowel including greater omentum to the abdominal wall and pelvis. 3. Parastomal hernia about descending colostomy, reducible. 4. Small bowel obstruction involving the distal small bowel along the deep pelvis Procedure(s) Performed: 1. Laparoscopic cholecystectomy. 2. Robotic-assisted laparoscopic lysis of adhesions over 1 hour. 3. Takedown of descending left colostomy. 4. Attempted laparoscopic reversal of descending colostomy with closure of colostomy. 5. Open lower anterior resection with mobilization of splenic flexure. 6. Intraoperative sigmoidoscopy. 7. Open closure of peristomal hernia. 8. Placement of descending colostomy. 9. Placement of right lower quadrant round #19 ELENI drain. 10. Placement of PREVENA wound VAC system. Anesthesia: GETA, local Surgeon: Renae Herndon Estimated Blood Loss (ml): 300 Pathology: other (Gallbladder and sigmoid colon) Condition: stable Disposition: ICU Operative Findings: 1. Severe peritoneal adhesions involving the small bowel including anterior abdominal wall with over 3 hours of lysis of adhesions. 2. Moderate adhesions about the gallbladder consistent with chronic cholecystitis. 3. Failed colorectal anastomosis necessitating open technique. 4. Multiple interloop adhesions with near obstructing bowel obstruction involving the deep pelvis and small bowel to the right fallopian tube and sacral promontory of the spine. 5. Severe previous inflammation involving the proximal to mid rectum causing severe tortuosity of the rectum including stricture prohibiting future anastomosis and reversal. 6. Reducible parastomal hernia repair. 7. Intraoperative sigmoidoscopy of the rectal stump demonstrating defect along the mid rectum necessitating placement of descending colostomy.
[2016-12-20] MEDS ORDERED: IPRATROPIUM-ALBUTEROL 3 ML NEB INHALATION PRN ×2 (21:21→21:28)
[2016-12-20] MEDS ORDERED: PROPOFOL 1,000 MG/100 ML VIAL IV SCH (21:45)
[2016-12-20] MEDS: D5-0.45% NACL WITH KCL 20MEQ/L 1,000 ML IV SCH (21:56)
--- NOTE | 2016-12-20 22:15 | P.PN ---
Progress Note - Text Patient seen and evaluated at bedside. All intraoperative findings including surgical course was described to the patient family with all questions answered. Patient has history of steroid-dependent COPD. Upon her last hospitalization, she was extubated although having sepsis at her prior admission. I discussed with the ICU team okay to extubate pending evaluation by unit assistant. Additionally, patient has contaminated case and will continue postoperative antibiotics.
[2016-12-20] MEDS: FAMOTIDINE 20 MG/2 ML VIAL IV SCH (22:22)
[2016-12-20] MEDS: HYDROmorphone 1 MG/ML 1 ML SYRINGE IVP PRN (22:22)
--- NOTE | 2016-12-20 23:04 | OP ---
OPERATIVE REPORT DATE OF SERVICE: 12/20/2016 PREOPERATIVE DIAGNOSES: 1. History of perforated diverticulitis with sepsis and abscess resulting in descending colostomy. 2. History of moderate to severe chronic obstructive pulmonary disease, oxygen- dependent. 3. History of steroid-dependent chronic obstructive pulmonary disease. 4. History of chronic back pain. 5. History of chronic pain syndrome. 6. Hypertensive heart disease. 7. Obesity. 8. Gastroesophageal reflux disease. 9. Osteoarthritis of the lower back. 10.Bronchial asthma. 11.History of compression fracture of T12 and L2. 12.Coronary artery disease. 13.History of congestive heart failure. 14.Personal history of paroxysmal atrial fibrillation. 15. Symptomatic chronic cholecystitis. 16. Attention to descending colostomy. 17. Right upper quadrant abdominal pain. POSTOPERATIVE DIAGNOSES: 1. History of perforated diverticulitis with sepsis and abscess resulting in descending colostomy. 2. History of moderate to severe chronic obstructive pulmonary disease, oxygen- dependent. 3. History of steroid-dependent chronic obstructive pulmonary disease. 4. History of chronic back pain. 5. History of chronic pain syndrome. 6. Hypertensive heart disease. 7. Obesity. 8. Gastroesophageal reflux disease. 9. Osteoarthritis of the lower back. 10.Bronchial asthma. 11.History of compression fracture of T12 and L2. 12.Coronary artery disease. 13.History of congestive heart failure. 14.Personal history of paroxysmal atrial fibrillation. 15. Symptomatic chronic cholecystitis. 16. Attention to descending colostomy. 17. Right upper quadrant abdominal pain. 18. Severe diffuse peritoneal adhesions involving the small bowel including greater omentum to the abdominal wall and pelvis. 19.Symptomatic chronic cholecystitis. 20.Multiple interloop adhesions. 21. Small bowel obstruction involving the distal small bowel along the deep pelvis 22. Parastomal hernia about descending colostomy, reducible. PROCEDURES PERFORMED: 1. Laparoscopic cholecystectomy. 2. Robotic-assisted laparoscopic lysis of adhesions over 1 hour. 3. Laparoscopic takedown of descending left colostomy using 29 mm ILS 4. Attempted laparoscopic reversal of descending colostomy with closure of colostomy. 5. Open lower anterior resection with mobilization of splenic flexure. 6. Intraoperative sigmoidoscopy. 7. Open peristomal hernia repair, descending colostomy. 8. Open placement of descending colostomy. 9. Placement of right lower quadrant round #19 ELENI drain. 10. Peritoneal lavage 3 L normal saline. 11. Placement of PREVENA wound VAC system. SURGEON: Dr. Renae Herndon. ASSISTANTS: 1. Lorena Rapp. 2. Ovi Fofana. ANESTHESIA: General with 60 mL local anesthetic. ESTIMATED BLOOD LOSS: 300 mL. SPECIMENS: 1. Gallbladder. 2. Low anterior resection. COMPLICATIONS: Failed colorectal anastomosis. FINDINGS: 1. Chronic cholecystitis with dense adhesions about the gallbladder. 2. Severe intraabdominal adhesions involving the omentum to the greater abdominal wall, including small bowel involving the mid jejunum. 3. Reducible parastomal hernia repair, initial, without incarceration. 4. Following failed colorectal anastomosis, the surgery proceeded to open for a low anterior resection. 5. Intraoperative sigmoidoscopy of the rectal stump demonstrating defect along the mid rectum necessitating placement of descending colostomy. 6. Small bowel obstruction from adhesions of small bowel deep into the pelvis, incorporating the right ovary including fallopian tube. 7. Severe diverticulitis with moderate scar tissue involving the proximal rectum. 8. Severe peritoneal adhesions involving the small bowel including anterior abdominal wall with over 3 hours of lysis of adhesions. 9. Multiple interloop adhesions with near obstructing bowel obstruction involving the deep pelvis and small bowel to the right fallopian tube and sacral promontory of the spine. 10. Severe previous inflammation involving the proximal to mid rectum causing severe tortuosity of the rectum. INDICATIONS: Angelique Boyle is a 66-year-old female who initially had been hospitalized for back pain in July 2016. She had diagnostic studies which then showed perforated diverticulitis. Additional workup also showed chronic cholecystitis. She had a prolonged recovery from her severe chronic lower back pain. Similarly her index operation also showed a very low perforation from her sigmoid colon involving the rectosigmoid junction. Following her overall recovery in the past 2 to 3 months, she then sought surgical intervention for reversal. Benefits and risks of procedure, including bleeding, infection, conversion to open technique for takedown colostomy were described in detail. Benefits and risks were reviewed. Informed consent was obtained. Similarly, as the patient is steroid-dependent, stress dose of steroids was also advised. DESCRIPTION OF PROCEDURE: The patient had been enrolled in the enhanced recovery program. She was brought into the pre-anesthesia care area, where epidural was considered; however, given the severity of her back pain including spinal problems, this was then averted. The patient was then taken to the operating room. After general induction, the patient was positioned into modified lithotomy position. The abdomen had been prepped and draped, whereby the ostomy bag appliance was removed and a sterile sponge followed by Tegaderm was placed. The rest of the abdomen was prepped and draped in standard sterile fashion. Initial attention was brought to her cholecystectomy, as a robotic approach had been proposed. The target site of the sigmoid colon was marked along the abdomen with an indelible marker. A third arm was placed along the right side of the patient. Next, a 5 mm laparoscopic trocar entry was prepared along the right upper quadrant as a time-out protocol was confirmed by the surgical team, including the patient's name, procedures to be performed, Solu-Medrol, etc. The abdomen was insufflated to 15 mmHg pressure which she tolerated well. Diagnostic laparoscopy confirmed severe adhesions involving the left upper abdomen including the pelvis. Hence additional trocars were placed along the right lateral abdominal wall. An 8 mm port was placed along the right lateral abdominal wall followed by another 8 mm trocar along the right lower abdominal wall under direct visualization. Each stab incision was localized with anesthetic. Finally a separate 12 mm port was placed along the epigastrium under direct visualization. Prior to placement of the trocars along the epigastrium, laparoscopic lysis of adhesions for at least half an hour was performed using a combination of Sonicision and Kittner. Next the patient was placed in reverse Trendelenburg with the right side up. Via the right lateral ports, the fundus was reflected over the dome of the liver; however, dense adhesions had incorporated the gallbladder infundibulum, including the body of the gallbladder. Using a Sonicision, the adhesions were lysed without any enterotomy. Next the the cystic duct was identified and skeletonized. The common bile duct was also identified similarly. Using an inferolateral approach, the cystic structures were identified and 2 clips were placed proximally, 2 clips were placed distally along the cystic duct and then divided. The cystic artery was similarly controlled. The gallbladder was removed from the hepatic fossa using Sonicision and a combination of electroBovie cautery. Hemostasis was excellent. No spillage of bile occurred during this portion of the procedure. The gallbladder was temporarily placed along the right upper quadrant underneath the liver to address the colostomy portion of the patient's case. Next, the da Wanderlust Si robotic system was primed and brought in. The patient was then repositioned in the Trendelenburg position and the robot was docked between the legs of the patient. The third arm was again placed on the right side of the patient. The camera port was maintained along the right upper quadrant as a 12 mm port was placed. A stapler was placed along the right lateral abdominal wall. Once the robot was docked, with the help of the sound assistant, the instruments used including an atraumatic grasper as well as vessel sealer and Endoshears were used to take down adhesions. Moderate to severe adhesions were identified including incorporating the small bowel while by extensive lysis of adhesions using a robot was performed for 1 hour. A combination of 30-degree upward view was used to be able to address all adhesions as it related also to the colostomy. A parastomal hernia was identified however reducible. Given the depth of her rectal stump into the rest of the pelvis, the robot was undocked to proceed with the laparoscopic portion of the case. Next, attention was brought to the colostomy, whereby a #10 blade was used to make a circumferential incision down to the subcutaneous tissue. ElectroBovie cautery was used to free the ostomy circumferentially into the peritoneal cavity. No injury had occurred to the sigmoid colon as result. Once the ostomy had easily mobilized out of the abdominal wall, pneumoperitoneum was temporarily discontinued. Via the ostomy, a 28 sizer was used and selected for proposed colorectal anastomosis. A 29 mm ILS was selected and the anvil was entered into the open colostomy. An adapter was used to place the anvil into the descending colostomy whereby a 2-0 silk was tied with a long suture to facilitate retrieval of the anvil. The subcutaneous colostomy was divided using a MARY 75 mm blue load and the black sutures were brought out through the staple line to facilitate the colorectal anastomosis. I then went to the rectum, whereby sizers were also used to dilate the rectum. The rectal channel was moderately tortuous and involving the right lateral wall of the pelvis, which had been fairly narrowed. An intraoperative sigmoidoscopy was performed to identify the rectal stump via endoscope as well intra-abdominally. Next, as the sizer was placed into the rectum, the anastomosis was proposed with the help of the sound assistant. Attention was brought to the laparoscopic portion of the case whereby the sutures were pulled through the staple line and the anvil was brought out through the proximal portion of the colostomy. The anvil and stapler were mated for 1 minute. Initial firing, including taking down of the safety of the instrument, was identified with some resistance. Once the safety had been taken down, the EEA stapler was then fired for 1 minute. Once the stapler was fired for 1 minute, the stapler was removed and the connection was carefully reviewed with absence of mundo. The instrument had cut through and through without firing any mundo. As a result, the anastomosis had to be revised. I then rescrubbed and went to the bedside of the patient, whereby the fascial defect of the ostomy was oversewn using 0 Prolene. This was to facilitate any loss of pneumoperitoneum. Attention was now brought to the open portion of the procedure for a low anterior resection. A #10 blade was used to enter the previous cicatrix of the lower midline and extended to the epigastrium. ElectroBovie cautery was used to enter into the peritoneal cavity. As extensive lysis of adhesions of omentum including small bowel was addressed previously, the abdomen was entered securely. A universal retractor system was used to allow for complete visualization of the abdominal cavity. Using towels, the small bowel was reflected into the upper abdomen; however, multiple interloop adhesions of the small bowel, including internal hernias were identified and sharply lysed. Additional lysis of adhesions for another hour was performed. Attention was brought into the pelvis, whereby the right fallopian tube including along the uterus was found densely adherent to the previous ruptured sigmoid colon. Carefully the adhesions were taken down. The distal small bowel was found to be tightly adhered to the lower pelvis involving the sacral spine. Again extensive lysis of adhesions was performed without any enterotomies at this point. The entire small bowel was freely mobilized and re- packed into the upper abdomen. The uterus was identified and retracted anteriorly. Attention was brought to identifying the defect from the attempted anastomosis. The defects were found along the lateral wall of the mid rectum. The rectum was mobilized and found to have dense scarring involving the distal and mid rectum. After extensive mobilization, the mid rectum was resected using a contour curved stapler. The specimen was passed off. Next, to secure complete closure of any further defects, an intraoperative sigmoidoscopy was performed. I then went to the bedside of the patient where an Olympus colonoscope was inserted along the rectum and the pelvis was irrigated using normal saline. Air bubbles were identified confirming an air leak despite resection of the superior pole of the rectum. As a result, placement of her colostomy was proposed. Hemostasis was checked along the pelvis. Next the abdomen was irrigated copiously with 3 L of warm normal saline solution until the aspirate was clear. A round #19 drain was placed along the pelvic space at the staple line of the rectum. The drain was exited via the right lower quadrant. A drain stitch using 2-0 nylon was placed. The previous fascial closure of the colostomy site was opened. The left colon was mobilized along the splenic flexure to provide adequate length for her descending colostomy. Upon careful observation, the patient did have a parastomal hernia which was oversewn using 0 Prolene. Using a Guerda, the ostomy was brought out through the skin. Next, all gloves were changed. Please note that the skin had been protected using Ioban draping. All laparoscopic instruments were removed from the field. All sponge counts were confirmed prior to closure of the abdomen. The abdomen was then closed using double- stranded 0 PDS. Prior to closure of the abdomen, the omentum was tucked underlying the closure of the abdomen to minimize small bowel adhesions to the abdominal wall. A ELENI bulb was placed to bulb suction. The subcutaneous tissue was irrigated and a dilute solution of hydrogen peroxide was placed, as this had been a contaminated case. Interrupted 3-0 Vicryl was placed along the midline. Attention was then brought to maturation of the colostomy, which was performed using 3- 0 Vicryl in interrupted fashion along each quadrant and between. A Prevena wound VAC system was placed along the midline incision, whereby the seal was secured. Over the ELENI drain site, Optifoam dressing was placed. A Coloplast was also placed and cut to 37 cm. At the end of the procedure, the sponge and instrument counts had been verified correct by the printer technician. The patient had tolerated the procedure well and was taken to the postanesthesia care unit in stable condition. All intraoperative findings, including steps of the procedure, were described to the patient's family, including the severity of the patient's diverticulitis from her index operation causing a low perforation at the rectosigmoid junction which complicated her operative course. Given the extended length of the procedure and the patient's baseline COPD, discussion with Anesthesia was held and they recommended recovery in the intensive care unit. MMROSAURAL / IJN: [id number] / ESTELA
[2016-12-20] MEDS: ceFAZolin 2 GM in SODIUM CHLORIDE 0.9% 100 ML IVPB SCH (23:20)
[2016-12-20] MEDS: HEPARIN SODIUM,PORCINE 5,000 UNIT/ML 1 ML VIAL SQ SCH (23:50)
[2016-12-20] MEDS: metroNIDAZOLE-NS PMX 500 MG in SALINE 1 100ML.BAG IVPB SCH (23:54)
[2016-12-21] MEDS ORDERED: IPRATROPIUM-ALBUTEROL 3 ML NEB INHALATION SCH ×2
[2016-12-21 00:26] LABS: Glucose,Whole Blood 151 mg/dL (75-99)
[2016-12-21] MEDS ORDERED: SODIUM CHLORIDE 0.9% 500 ML IV ONE (01:04)
[2016-12-21] MEDS: HYDROCORTISONE SUCCINATE 100 MG/2 ML VIAL IV SCH ×4 (01:17→23:27)
[2016-12-21 01:18] LABS: ABG HCO3 23 mmol/L (21-25); ABG PCO2 44 mmHg (35-45); ABG PH 7.34 (7.35-7.45); ABG PO2 117 mmHg (83-108)
[2016-12-21 01:19] LABS: ABG Base Excess -1.6 mmol/L; ABG TCO2 25 mmol/L (19-24)
[2016-12-21] MEDS: HYDROmorphone 1 MG/ML 1 ML SYRINGE IVP PRN ×4 (01:25→15:07)
[2016-12-21 03:16] LABS: Appearance,Urine Clear (Clear); Bilirubin,Urine Negative (Negative); Glucose,Urine (UA) Negative (Negative); Ketones,Urine Trace (Negative); Leukocyte Esterase,Urine Moderate (Negative); Mucus,Urine Occasional /hpf; Nitrite,Urine Negative (Negative); Particle Count 3314; Protein,Urine 1+ (Negative); RBC,Urine >182 /hpf (0-5); Specific Gravity,Urine 1.023 (1.001-1.035); Squamous Epithelial Cell,Urine <1 /hpf (0-4); UA Billing (MACRO vs. MICRO) MICRO; Urobilinogen,Urine <2.0 mg/dL (<2.0); WBC,Urine 38 /hpf (0-5)
[2016-12-21 04:31] LABS: Basophils % (A) 0 %; CH 31.2; CHCM 30.3; Eosinophils % (A) 0 %; HCT 38.7 % (34.0-46.0); HDW 2.37; HGB 12.4 gm/dL (11.4-16.0); Hypochromasia Moderate; Luc # (Auto) 0.09; Luc % (Auto) 0; Lymphocytes # (A) 0.6 k/uL (1.0-4.8); Lymphocytes % (A) 3 %; MCHC 31.9 g/dL (31.0-37.0); MCV 103.4 fL (80.0-100.0); Macrocytosis Slight; Mean Platelet Volume 8.4; Monocytes # (A) 1.9 k/uL (0-1.0); Monocytes % (A) 10 %; Neutrophils # (A) 16.9 k/uL (1.3-7.7); Neutrophils % (A) 86 %; RBC 3.75 m/uL (3.80-5.40); RDW 14.9 % (11.5-15.5); WBC 19.6 k/uL (3.8-10.6)
[2016-12-21 04:42] LABS: Anion Gap 14 mmol/L; Calcium 7.9 mg/dL (8.4-10.2); Carbon Dioxide 15 mmol/L (22-30); Chloride 102 mmol/L (98-107); Glucose 157 mg/dL (74-99); Non-African American GFR(MDRD) >60 (>60 ml/min/1.73 sqM); Sodium 131 mmol/L (137-145)
[2016-12-21 04:55] LABS: Phosphorous 5.3 mg/dL (2.5-4.5); Potassium 5.2 mmol/L (3.5-5.1)
[2016-12-21 04:56] LABS: Blood Urea Nitrogen 17 mg/dL (7-17); Magnesium 1.8 mg/dL (1.6-2.3)
[2016-12-21 05:09] LABS: Manual Review Performed
[2016-12-21] MEDS ORDERED: Magnesium Replacement Protocol 1 EACH MISC MISCELLANE PRN (05:35)
[2016-12-21] MEDS: MAGNESIUM SULFATE-D5W PMX 1 GM in DEXTROSE/WATER 1 100ML.BAG IVPB SCH ×2 (05:46→06:40)
[2016-12-21] MEDS: D5-0.45% NACL WITH KCL 20MEQ/L 1,000 ML IV SCH (05:51)
[2016-12-21 06:38] LABS: Glucose,Whole Blood 167 mg/dL (75-99)
--- NOTE | 2016-12-21 06:56 | XR ---
EXAMINATION TYPE: XR chest 1V DATE OF EXAM: 12/21/2016 HISTORY: COPD. REFERENCE: Previous study dated 12/20/2016. FINDINGS: The patient's ET tube has been removed. An NG tube remains in place, unchanged in appearanc e. There is bibasilar airspace disease, worse on the left than the right. This may represent atelectasis or pneumonia. The lungs are otherwise clear. The heart is mildly enlarged. I could not exclude a sma ll left effusion. IMPRESSION: 1. BIBASILAR ATELECTASIS. 2. CARDIOMEGALY. 3. I COULD NOT EXCLUDE A LEFT-SIDED EFFUSION.
[2016-12-21] MEDS: IPRATROPIUM-ALBUTEROL 3 ML NEB INHALATION SCH ×4 (07:49→19:02)
[2016-12-21] MEDS: metroNIDAZOLE-NS PMX 500 MG in SALINE 1 100ML.BAG IVPB SCH ×2 (08:29→17:00)
[2016-12-21] MEDS: ceFAZolin 2 GM in SODIUM CHLORIDE 0.9% 100 ML IVPB SCH ×3 (08:29→23:26)
[2016-12-21] MEDS: HEPARIN SODIUM,PORCINE 5,000 UNIT/ML 1 ML VIAL SQ SCH ×3 (08:30→23:27)
[2016-12-21] MEDS: FAMOTIDINE 20 MG/2 ML VIAL IV SCH ×2 (08:31→21:04)
[2016-12-21] MEDS ORDERED: CHLORHEXIDINE GLUCONATE 15 ML CUP MUCOUS MEM SCH (09:00)
--- NOTE | 2016-12-21 11:29 | P.PN ---
Subjective Principal diagnosis: Diverticulitis The patient is a 66-year-old female who is status post extensive lysis of adhesions including lower anterior resection, closure of peristomal hernia, attempted colostomy reversal with redo colostomy and cholecystectomy. She has been extubated. She is awake and alert. Her pain is well-controlled. No reports nausea and vomiting. Intraoperative findings were thoroughly described and reviewed alongside with her with photos. No fevers or chills. She is eager to start walking. Her son and family are at bedside. Objective - Vital Signs Vital signs: Vital Signs Temp 97.6 F 12/21/16 08:00 Pulse 87 12/21/16 10:00 Resp 20 12/21/16 10:00 BP 110/55 12/21/16 10:00 Pulse Ox 100 12/21/16 10:00 Intake & Output 12/20/16 12/21/16 12/21/16 18:59 06:59 18:59 Intake Total 3300 3365 600 Output Total 975 145 Balance 3300 2390 455 Weight 87.6 kg Intake: IV 3300 1400 375 D5 0.45 20meq 20KCL 375 Intake, IV Titration 1965 225 Amount D5-0.45% NaCl with KCl 1125 125 20Meq/l 1,000 ml @ 125 mls/hr IV .Q8H [facility] Rx#: [id number] Lactated Ringers 1,000 ml 40 As IV .STK-MED ONE Rx#: [id number] Magnesium Sulfate-D5w Pmx 100 100 1 gm In Dextrose/Water 1 100ml.bag @ 100 mls/hr IVPB Q1H [facility] Rx#: [id number] Sodium Chloride 0.9% 500 500 ml @ 999 mls/hr IV .Q31M [facility] Rx#:[id number] ceFAZolin 2 gm In Sodium 100 Chloride 0.9% 100 ml @ 100 mls/hr IVPB ONCE ONE Rx#:[id number] metroNIDAZOLE-NS PMX 500 100 mg In Saline 1 100ml.bag @ 100 mls/hr IVPB ONCE ONE Rx#:[id number] Oral 0 0 Output: Gastric Drainage 50 Drainage 130 20 Right Lower Abdomen 130 20 Urine 495 125 Estimated Blood Loss 300 Other: Voiding Method Indwelling Catheter Indwelling Catheter - Exam GENERAL: Well developed and in no acute distress. Pleasant. HEENT: No sclera icterus. Extraocular movements grossly intact. Moist buccal mucosa. Head is atraumatic, normocephalic. Hears conversational speech. No nasal drainage. Nasogastric tube present. CHEST: Non-labored respirations and equal bilateral excursions. CARDIOVASCULAR: Regular rate and rhythm. In sinus rhythm. Palpable 2+ radial pulses. ABDOMEN: Soft. Nondistended. PREVENA wound VAC clean dry and intact. Serosanguineous output from ELENI. MUSCULOSKELETAL: No clubbing, cyanosis or edema. NEUROLOGIC: No focal or lateralizing signs. Cranial nerves II-12 grossly intact. PSYCH: Appropriate affect. Alert and oriented to person, place and time. SKIN: Well perfused. Multiple ecchymoses along the distal forearm. - Labs CBC & Chem 7: 12/21/16 04:07 12/21/16 04:07 Labs: Abnormal Lab Results - Last 24 Hours (Table) 12/20/16 12/20/16 12/20/16 Range/Units 20:26 20:50 20:50 WBC 14.1 H (3.8-10.6) k/uL RBC (3.80-5.40) m/uL MCV (80.0-100.0) fL Neutrophils # 12.9 H (1.3-7.7) k/uL Lymphocytes # 0.4 L (1.0-4.8) k/uL Monocytes # (0-1.0) k/uL ABG pH (7.35-7.45) ABG pO2 (83-108) mmHg ABG Total CO2 (19-24) mmol/L ABG O2 Saturation (94-97) % Sodium 136 L (137-145) mmol/L Potassium (3.5-5.1) mmol/L Carbon Dioxide (22-30) mmol/L Glucose 142 H (74-99) mg/dL POC Glucose (mg/dL) 129 H (75-99) mg/dL Calcium (8.4-10.2) mg/dL Phosphorus (2.5-4.5) mg/dL Urine Protein (Negative) Urine Ketones (Negative) Urine Blood (Negative) Ur Leukocyte Esterase (Negative) Urine RBC (0-5) /hpf Urine WBC (0-5) /hpf Hyaline Casts (0-2) /lpf Urine Mucus (None) /hpf 12/20/16 12/21/16 12/21/16 Range/Units 20:54 00:12 00:24 WBC (3.8-10.6) k/uL RBC (3.80-5.40) m/uL MCV (80.0-100.0) fL Neutrophils # (1.3-7.7) k/uL Lymphocytes # (1.0-4.8) k/uL Monocytes # (0-1.0) k/uL ABG pH 7.34 L (7.35-7.45) ABG pO2 >400 H 117 H (83-108) mmHg ABG Total CO2 25 H (19-24) mmol/L ABG O2 Saturation 100.0 H 98.0 H (94-97) % Sodium (137-145) mmol/L Potassium (3.5-5.1) mmol/L Carbon Dioxide (22-30) mmol/L Glucose (74-99) mg/dL POC Glucose (mg/dL) 151 H (75-99) mg/dL Calcium (8.4-10.2) mg/dL Phosphorus (2.5-4.5) mg/dL Urine Protein (Negative) Urine Ketones (Negative) Urine Blood (Negative) Ur Leukocyte Esterase (Negative) Urine RBC (0-5) /hpf Urine WBC (0-5) /hpf Hyaline Casts (0-2) /lpf Urine Mucus (None) /hpf 12/21/16 12/21/16 12/21/16 Range/Units 03:00 04:07 04:07 WBC 19.6 H (3.8-10.6) k/uL RBC 3.75 L (3.80-5.40) m/uL MCV 103.4 H (80.0-100.0) fL Neutrophils # 16.9 H (1.3-7.7) k/uL Lymphocytes # 0.6 L (1.0-4.8) k/uL Monocytes # 1.9 H (0-1.0) k/uL ABG pH (7.35-7.45) ABG pO2 (83-108) mmHg ABG Total CO2 (19-24) mmol/L ABG O2 Saturation (94-97) % Sodium 131 L (137-145) mmol/L Potassium 5.2 H (3.5-5.1) mmol/L Carbon Dioxide 15 L (22-30) mmol/L Glucose 157 H (74-99) mg/dL POC Glucose (mg/dL) (75-99) mg/dL Calcium 7.9 L (8.4-10.2) mg/dL Phosphorus 5.3 H (2.5-4.5) mg/dL Urine Protein 1+ H (Negative) Urine Ketones Trace H (Negative) Urine Blood Large H (Negative) Ur Leukocyte Esterase Moderate H (Negative) Urine RBC >182 H (0-5) /hpf Urine WBC 38 H (0-5) /hpf Hyaline Casts 34 H (0-2) /lpf Urine Mucus Occasional H (None) /hpf 12/21/16 Range/Units 06:35 WBC (3.8-10.6) k/uL RBC (3.80-5.40) m/uL MCV (80.0-100.0) fL Neutrophils # (1.3-7.7) k/uL Lymphocytes # (1.0-4.8) k/uL Monocytes # (0-1.0) k/uL ABG pH (7.35-7.45) ABG pO2 (83-108) mmHg ABG Total CO2 (19-24) mmol/L ABG O2 Saturation (94-97) % Sodium (137-145) mmol/L Potassium (3.5-5.1) mmol/L Carbon Dioxide (22-30) mmol/L Glucose (74-99) mg/dL POC Glucose (mg/dL) 167 H (75-99) mg/dL Calcium (8.4-10.2) mg/dL Phosphorus (2.5-4.5) mg/dL Urine Protein (Negative) Urine Ketones (Negative) Urine Blood (Negative) Ur Leukocyte Esterase (Negative) Urine RBC (0-5) /hpf Urine WBC (0-5) /hpf Hyaline Casts (0-2) /lpf Urine Mucus (None) /hpf Assessment and Plan (1) Peritoneal adhesions Status: Acute (2) Status post partial colectomy Status: Acute (3) Status post laparoscopic cholecystectomy Status: Acute (4) Atrial fibrillation Status: Acute (5) Congestive heart failure Status: Acute (6) COPD, moderate Status: Acute (7) Current chronic use of systemic steroids Status: Acute (8) Perforation of sigmoid colon due to diverticulitis Status: Acute (9) Status post colostomy Status: Acute (10) Parastomal hernia Status: Acute (11) Chronic cholecystitis Status: Acute Plan: 1. Her laboratory results are reviewed demonstrating elevated potassium. Her IV fluid has been changed and adjusted to normal saline. 2. Her intraoperative findings were reviewed in detail including extensive lysis of adhesions and prolonged operation over 6 hours. With her history of COPD including atrial fibrillation and increased comorbidity, the patient will continue ICU care with potential transfer to the floor tomorrow. 3. As she has been extubated, will resume home medications however her Eliquis is on hold for high risk for bleeding. 4. May have ice chips in the interim. 5. Abdominal binder for comfort. 6. Continue IV antibiotics for contaminated case. 7. Thank you consultants for following. 8. She has expected post reactive leukocytosis which will be monitored. 9. Pulmonary management per propellant charge zone assembler. 10. May adjust stress dose of steroids per medicine. Time with Patient: Greater than 30
[2016-12-21] MEDS: SODIUM CHLORIDE 0.9% 1,000 ML IV SCH ×2 (11:42→23:29)
[2016-12-21] MEDS: KETOROLAC 30 MG/ML 1 ML VIAL IVP PRN ×2 (12:20→21:01)
--- NOTE | 2016-12-21 12:55 | P.CNPUL ---
History of Present Illness Consult date: 12/21/16 Requesting physician: Renae Herndon Reason for consult: other (Critical care management) Chief complaint: Elective cholecystectomy, colostomy reversal History of present illness: This is a very pleasant 66-year-old female patient who lives with Dr. Price as her primary care physician. She has a history of ruptured diverticuli with subsequent surgery and colostomy approximately 4 months ago. She has a history of chronic back pain with compression fractures of the T-spine, osteoporosis, skin cancer, sepsis secondary to urinary tract infection, gastroesophageal reflux disease coronary artery disease, paroxysmal atrial fibrillation, congestive heart failure. She also follows with Dr. Gallardo in our office for moderate persistent oxygen-dependent, steroid-dependent chronic bronchial asthma. She presented here yesterday to undergo surgery with Dr. Herndon. He had undergone a laparoscopic cholecystectomy, robotic-assisted laparoscopic lysis of adhesions, takedown of colostomy, open low anterior resection, sigmoidoscopy, parastomal hernia repair descending colostomy, open replacement of descending colostomy. She was not extubated in recovery and was transferred to the intensive care unit. We are consulted for the same. She did undergo successful extubation approximately 1:[address] Gallardo. She is seen today in consultation in the intensive care unit. She is currently awake and alert in no acute distress. Maintaining good O2 saturations in the high 90s on 2 L/m per nasal cannula. She's been afebrile. He was dynamically stable. She has a D5 0.45 at with 20 of KCl running at 125 per hour. Her chest x-ray shows bibasilar atelectasis and cardiomegaly and a small left-sided effusion. She has a loose nonproductive cough. No chills or night sweats. She does have an abdominal wound VAC in place. She remains on Ancef and Flagyl. She is on hydrocortisone she remains on bronchodilators. Review of Systems 14 point review of system was conducted all negative other than as mentioned in the HPI. Past Medical History Past Medical History: Atrial Fibrillation, Asthma, Coronary Artery Disease (CAD) , Cancer, Heart Failure, GERD/Reflux Additional Past Medical History / Comment(s): Bronchial asthma, compression fracture of the T-spine, osteoporosis, skin cancer, history of sepsis of urinary source, sigmoid diverticulosis, compression fracture of the L2 spine, compression fracture of the T12 spine, compression fracture of the T7 spine,CHF , KIDNEY STONE History of Any Multi-Drug Resistant Organisms: None Reported Past Surgical History: Appendectomy, Bowel Resection, Tubal Ligation Additional Past Surgical History / Comment(s): CATARACT LEFT EYE WITH REPAIR OF MACULAR HOLE. Colonoscopy, 2015. bowel resection with colostomy, CYSTOSCOPY W/ RT RETROGRADE PYELOURETEROGRAM 10/21 Past Anesthesia/Blood Transfusion Reactions: No Reported Reaction Smoking Status: Never smoker - Past Family History Mother Family Medical History: Cancer Additional Family Medical History / Comment(s): COLON CANCER in Mother Medications and Allergies Home Medications Medication Instructions Recorded Confirmed Type Albuterol Nebulized [Ventolin 2.5 mg INHALATION RT-BID 07/22/16 12/16/16 History Nebulized] Albuterol Sulfate [Proventil Hfa] 2 puff INHALATION RT-Q6H PRN 07/22/16 History Budesonide/Formoterol Fumarate 2 puff INHALATION RT-BID 07/22/16 12/20/16 History [Symbicort 160-4.5 Mcg Inhaler] Montelukast [Singulair] 10 mg PO HS 07/22/16 12/20/16 History Omeprazole 20 mg PO BID 07/22/16 12/20/16 History traMADol HCL [Ultram] 50 mg PO Q6H PRN 09/27/16 12/20/16 History Acetaminophen Tab [Tylenol] 500 mg PO Q6H PRN 10/21/16 12/20/16 History predniSONE 10 mg PO DAILY 10/21/16 12/16/16 History Apixaban [Eliquis] 5 mg PO BID #60 tab 10/25/16 12/20/16 Rx Cefuroxime Axetil [Ceftin] 500 mg PO BID #14 tab 10/25/16 12/20/16 Rx Cyclobenzaprine [Flexeril] 5 mg PO BID #60 tab 10/25/16 12/20/16 Rx Diltiazem HCl [Cartia Xt] 180 mg PO DAILY #30 cap 10/25/16 12/20/16 Rx Flecainide [Tambocor] 50 mg PO Q12HR #60 tab 10/25/16 12/20/16 Rx Gabapentin [Neurontin] 200 mg PO HS #60 cap 10/25/16 12/20/16 Rx HYDROcodone/APAP 7.5-325MG [[place] 1 tab PO Q6H PRN #30 tab 10/25/16 12/16/16 Rx 7.5-325] Lidocaine 5% Patch [Lidoderm 5% 1 patch TOPICAL DAILY #30 patch 10/25/16 Rx Patch] Allergies Allergy/AdvReac Type Severity Reaction Status Date / Time furosemide [From Lasix] Allergy Rash/Hives Verified 12/20/16 20:06 Physical Exam Vitals: Vital Signs Temp Pulse Resp BP Pulse Ox 12/21/16 11:42 93 12/21/16 11:31 94 12/21/16 11:30 83 24 110/61 97 12/21/16 11:00 90 25 H 110/61 99 12/21/16 10:30 74 7 L 110/55 97 12/21/16 10:00 87 20 110/55 100 12/21/16 09:30 76 20 113/64 100 12/21/16 09:00 81 14 113/64 97 12/21/16 08:30 82 21 107/58 98 12/21/16 08:03 79 12/21/16 08:00 97.6 F 75 14 107/58 99 12/21/16 07:50 76 96 12/21/16 07:30 75 12 99/60 96 12/21/16 07:00 75 8 L 99/60 96 12/21/16 06:30 75 9 L 119/66 96 12/21/16 06:00 77 10 L 119/66 97 12/21/16 05:00 77 10 L 103/58 98 12/21/16 04:30 97.9 F 79 13 118/64 99 12/21/16 04:00 13 12/21/16 03:30 79 16 106/60 97 12/21/16 03:00 82 15 106/60 97 12/21/16 02:30 82 9 L 110/65 93 L 12/21/16 02:00 85 19 105/57 95 12/21/16 01:30 85 17 117/60 92 L 12/21/16 01:29 16 12/21/16 01:00 89 10 L 124/70 98 12/21/16 00:30 94 13 131/74 98 12/21/16 00:00 99.1 F 91 8 L 123/66 96 12/20/16 23:30 108 H 7 L 119/71 98 12/20/16 23:26 92 9 L 119/71 97 12/20/16 23:20 92 27 H 119/71 97 12/20/16 23:10 92 20 107/68 96 12/20/16 23:00 91 11 L 107/68 97 12/20/16 22:59 106 H 12/20/16 22:50 93 18 120/76 96 12/20/16 22:48 94 12/20/16 22:40 92 14 131/68 97 12/20/16 22:34 10 L 12/20/16 22:30 91 10 L 131/68 96 12/20/16 22:20 92 14 121/70 96 12/20/16 22:10 89 14 105/61 96 12/20/16 22:00 83 13 105/61 96 12/20/16 21:50 82 13 101/55 96 12/20/16 21:40 84 0 L 97/57 96 12/20/16 21:30 85 13 97/57 95 12/20/16 21:20 85 14 100/60 96 12/20/16 21:10 85 15 109/54 96 12/20/16 21:00 87 19 109/54 97 12/20/16 20:50 87 13 126/70 98 12/20/16 20:40 88 13 132/63 98 12/20/16 20:30 98.0 F 86 13 132/63 98 12/20/16 20:24 119/63 Intake and Output 12/20/16 12/21/16 12/21/16 22:59 06:59 14:59 Intake Total 2565 1800 700 Output Total 730 245 145 Balance 1835 1555 555 Intake: IV 2400 475 0.9 NACL 100 D5 0.45 20meq 20KCL 375 Intake, IV Titration 165 1800 225 Amount D5-0.45% NaCl with KCl 125 1000 125 20Meq/l 1,000 ml @ 125 mls/hr IV .Q8H [facility] Rx#: [id number] Lactated Ringers 1,000 ml 40 As IV .STK-MED ONE Rx#: [id number] Magnesium Sulfate-D5w Pmx 100 100 1 gm In Dextrose/Water 1 100ml.bag @ 100 mls/hr IVPB Q1H [facility] Rx#: [id number] Sodium Chloride 0.9% 500 500 ml @ 999 mls/hr IV .Q31M ONE Rx#:[id number] ceFAZolin 2 gm In Sodium 100 Chloride 0.9% 100 ml @ 100 mls/hr IVPB ONCE ONE Rx#:[id number] metroNIDAZOLE-NS PMX 500 100 mg In Saline 1 100ml.bag @ 100 mls/hr IVPB ONCE ONE Rx#:[id number] Oral 0 0 0 Output: Gastric Drainage 50 Drainage 60 70 20 Right Lower Abdomen 60 70 20 Urine 370 125 125 Estimated Blood Loss 300 Other: Voiding Method Indwelling Catheter Indwelling Catheter Indwelling Catheter Weight 87.6 kg GENERAL EXAM: Morbidly obese. Alert, comfortable in no apparent distress. HEAD: Normocephalic. EYES: Normal reaction of pupils, equal size. NOSE: Clear with pink turbinates. THROAT: No erythema or exudates. NECK: No masses, no JVD. CHEST: No chest wall deformity. LUNGS: Equal air entry with no crackles, wheeze, rhonchi or dullness. CVS: S1 and S2 normal with no audible murmurs, regular rhythm. ABDOMEN: VAC in place. ELENI drain in place. SPINE: No scoliosis or deformity area SKIN: No rashes CENTRAL NERVOUS SYSTEM: No focal deficits, tone is normal in all 4 extremities. Extremities: There is trace peripheral edema. No clubbing, no cyanosis. Peripheral pulses are intact. Results - Laboratory Findings CBC and BMP: 12/21/16 04:07 12/21/16 04:07 ABG ABG pH 7.34 (7.35-7.45) L 12/21/16 00:12 ABG pCO2 44 mmHg (35-45) 12/21/16 00:12 ABG pO2 117 mmHg (83-108) H 12/21/16 00:12 ABG O2 Saturation 98.0 % (94-97) H 12/21/16 00:12 Abnormal lab findings: Abnormal Labs 12/20/16 12/20/16 12/20/16 20:26 20:50 20:50 WBC 14.1 H RBC MCV Neutrophils # 12.9 H Lymphocytes # 0.4 L Monocytes # ABG pH ABG pO2 ABG Total CO2 ABG O2 Saturation Sodium 136 L Potassium Carbon Dioxide Glucose 142 H POC Glucose (mg/dL) 129 H Calcium Phosphorus Urine Protein Urine Ketones Urine Blood Ur Leukocyte Esterase Urine RBC Urine WBC Hyaline Casts Urine Mucus 12/20/16 12/21/16 12/21/16 20:54 00:12 00:24 WBC RBC MCV Neutrophils # Lymphocytes # Monocytes # ABG pH 7.34 L ABG pO2 >400 H 117 H ABG Total CO2 25 H ABG O2 Saturation 100.0 H 98.0 H Sodium Potassium Carbon Dioxide Glucose POC Glucose (mg/dL) 151 H Calcium Phosphorus Urine Protein Urine Ketones Urine Blood Ur Leukocyte Esterase Urine RBC Urine WBC Hyaline Casts Urine Mucus 12/21/16 12/21/16 12/21/16 03:00 04:07 04:07 WBC 19.6 H RBC 3.75 L MCV 103.4 H Neutrophils # 16.9 H Lymphocytes # 0.6 L Monocytes # 1.9 H ABG pH ABG pO2 ABG Total CO2 ABG O2 Saturation Sodium 131 L Potassium 5.2 H Carbon Dioxide 15 L Glucose 157 H POC Glucose (mg/dL) Calcium 7.9 L Phosphorus 5.3 H Urine Protein 1+ H Urine Ketones Trace H Urine Blood Large H Ur Leukocyte Esterase Moderate H Urine RBC >182 H Urine WBC 38 H Hyaline Casts 34 H Urine Mucus Occasional H 12/21/16 06:35 WBC RBC MCV Neutrophils # Lymphocytes # Monocytes # ABG pH ABG pO2 ABG Total CO2 ABG O2 Saturation Sodium Potassium Carbon Dioxide Glucose POC Glucose (mg/dL) 167 H Calcium Phosphorus Urine Protein Urine Ketones Urine Blood Ur Leukocyte Esterase Urine RBC Urine WBC Hyaline Casts Urine Mucus - Diagnostic Findings Chest x-ray: image reviewed Assessment and Plan Plan: Impression: #1 Partial bowel obstruction and involving the distal jejunum with adhesions, status post laparoscopic cholecystectomy, laparoscopic lysis of adhesions, open low anterior resection with intraoperative sigmoidoscopy, peristomal hernia repair and open placement of descending colostomy. Is postoperative day #1. #2 history of previous ruptured diverticuli with resection and colostomy placement. #3 History of chronic persistent bronchial asthma, currently inactive and stable. #4 Multilevel compression fraction of the thoracic and lumbar spine with chronic back pain. #5 Morbid obesity. Plan: The patient was seen and evaluated by Dr. Gallardo. Her chest x-ray and labs were reviewed. We'll go ahead and add Symbicort to her pulmonary regime. We'll add incentive spirometer and encourage increased use and cough and deep breathing exercises. She'll remain on hydrocortisone as she remains nothing by mouth. Is on heparin subcutaneous for DVT prophylaxis. Pepcid for GI prophylaxis. We' ll continue with antibiotics in the form of cefazolin and Flagyl. We will continue to follow and make further recommendations based on her clinical status. I performed a history and physical examination of the patient along with my nurse practitioner. I agree with the above findings and discussed the plan of care. From the pulmonary standpoint she does have crackles in the posterior bases. No significant wheeze. Time with Patient: Greater than 30
--- NOTE | 2016-12-21 23:27 | P.CONS ---
History of Present Illness - Reason for Consult Consult date: 12/21/16 management of multiple medical problems - Chief Complaint Elective cholecystectomy and colostomy reversal - History of Present Illness Patient is a 66-year-old female with a known history of ruptured diverticuli with subsequent surgery and colostomy approximately 4 months ago, coronary artery disease, paroxysmal atrial fibrillation, oxygen-dependent, steroid- dependent chronic bronchial asthma admitted by Dr. Herndon for a laparoscopic cholecystectomy. Patient underwent cholecystectomy and robotic- assisted laparoscopic lysis of adhesions, takedown of colostomy, open low anterior resection, sigmoidoscopy, parastomal hernia repair descending colostomy , open replacement of descending colostomy. She was not extubated in recovery and was transferred to the intensive care unit. Patient is currently extubated now. Her chest x-ray shows bibasilar atelectasis and cardiomegaly and a small left- sided effusion. She has a loose nonproductive cough. No chills or night sweats. She does have an abdominal wound VAC in place. She remains on Ancef and Flagyl. She is on hydrocortisone she remains on bronchodilators. Currently patient complains of abdominal discomfort otherwise no chest pain no short of breath Review of Systems CONSTITUTIONAL: No fever, no malaise, no fatigue. HEENT: No recent visual problems or hearing problems. Denied any sore throat. CARDIOVASCULAR: No chest pain, orthopnea, PND, no palpitations, no syncope. PULMONARY: , No shortness of breath or cough. no hemoptysis. GASTROINTESTINAL: No diarrhea, no nausea, no vomiting, abdominal tenderness and pain.. Normoactive bowel sounds. NEUROLOGICAL: No headaches, no weakness, no numbness. HEMATOLOGICAL: Denies any bleeding or petechiae. GENITOURINARY: Denies any burning micturition, frequency, or urgency. MUSCULOSKELETAL/RHEUMATOLOGICAL: Denies any joint pain, swelling, or any muscle pain. ENDOCRINE: Denies any polyuria or polydipsia. The rest of the 14-point review of systems is negative. Past Medical History Past Medical History: Atrial Fibrillation, Asthma, Coronary Artery Disease (CAD) , Cancer, Heart Failure, GERD/Reflux Additional Past Medical History / Comment(s): Bronchial asthma, compression fracture of the T-spine, osteoporosis, skin cancer, history of sepsis of urinary source, sigmoid diverticulosis, compression fracture of the L2 spine, compression fracture of the T12 spine, compression fracture of the T7 spine,CHF , KIDNEY STONE History of Any Multi-Drug Resistant Organisms: None Reported Past Surgical History: Appendectomy, Bowel Resection, Tubal Ligation Additional Past Surgical History / Comment(s): CATARACT LEFT EYE WITH REPAIR OF MACULAR HOLE. Colonoscopy, 2015. bowel resection with colostomy, CYSTOSCOPY W/ RT RETROGRADE PYELOURETEROGRAM 10/21 Past Anesthesia/Blood Transfusion Reactions: No Reported Reaction Smoking Status: Never smoker - Past Family History Mother Family Medical History: Cancer Additional Family Medical History / Comment(s): COLON CANCER in Mother Medications and Allergies Home Medications Medication Instructions Recorded Confirmed Type Albuterol Nebulized [Ventolin 2.5 mg INHALATION RT-BID 07/22/16 12/16/16 History Nebulized] Albuterol Sulfate [Proventil Hfa] 2 puff INHALATION RT-Q6H PRN 07/22/16 History Budesonide/Formoterol Fumarate 2 puff INHALATION RT-BID 07/22/16 12/20/16 History [Symbicort 160-4.5 Mcg Inhaler] Montelukast [Singulair] 10 mg PO HS 07/22/16 12/20/16 History Omeprazole 20 mg PO BID 07/22/16 12/20/16 History traMADol HCL [Ultram] 50 mg PO Q6H PRN 09/27/16 12/20/16 History Acetaminophen Tab [Tylenol] 500 mg PO Q6H PRN 10/21/16 12/20/16 History predniSONE 10 mg PO DAILY 10/21/16 12/16/16 History Apixaban [Eliquis] 5 mg PO BID #60 tab 10/25/16 12/20/16 Rx Cefuroxime Axetil [Ceftin] 500 mg PO BID #14 tab 10/25/16 12/20/16 Rx Cyclobenzaprine [Flexeril] 5 mg PO BID #60 tab 10/25/16 12/20/16 Rx Diltiazem HCl [Cartia Xt] 180 mg PO DAILY #30 cap 10/25/16 12/20/16 Rx Flecainide [Tambocor] 50 mg PO Q12HR #60 tab 10/25/16 12/20/16 Rx Gabapentin [Neurontin] 200 mg PO HS #60 cap 10/25/16 12/20/16 Rx HYDROcodone/APAP 7.5-325MG [[place] 1 tab PO Q6H PRN #30 tab 10/25/16 12/16/16 Rx 7.5-325] Lidocaine 5% Patch [Lidoderm 5% 1 patch TOPICAL DAILY #30 patch 10/25/16 Rx Patch] Allergies Allergy/AdvReac Type Severity Reaction Status Date / Time furosemide [From Lasix] Allergy Rash/Hives Verified 12/20/16 20:06 Physical Exam Vitals: Vital Signs Temp Pulse Resp BP Pulse Ox 12/21/16 14:00 90 11 L 125/60 96 12/21/16 13:30 91 11 L 113/59 96 12/21/16 13:00 90 11 L 113/59 95 12/21/16 12:30 89 11 L 116/54 94 L 12/21/16 12:00 97.8 F 89 26 H 116/54 97 12/21/16 11:42 93 12/21/16 11:31 94 12/21/16 11:30 83 24 110/61 97 12/21/16 11:00 90 25 H 110/61 99 12/21/16 10:30 74 7 L 110/55 97 12/21/16 10:00 87 20 110/55 100 12/21/16 09:30 76 20 113/64 100 12/21/16 09:00 81 14 113/64 97 12/21/16 08:30 82 21 107/58 98 12/21/16 08:03 79 12/21/16 08:00 97.6 F 75 14 107/58 99 12/21/16 07:50 76 96 12/21/16 07:30 75 12 99/60 96 12/21/16 07:00 75 8 L 99/60 96 12/21/16 06:30 75 9 L 119/66 96 12/21/16 06:00 77 10 L 119/66 97 12/21/16 05:00 77 10 L 103/58 98 12/21/16 04:30 97.9 F 79 13 118/64 99 12/21/16 04:00 13 12/21/16 03:30 79 16 106/60 97 12/21/16 03:00 82 15 106/60 97 12/21/16 02:30 82 9 L 110/65 93 L 12/21/16 02:00 85 19 105/57 95 12/21/16 01:30 85 17 117/60 92 L 12/21/16 01:29 16 12/21/16 01:00 89 10 L 124/70 98 12/21/16 00:30 94 13 131/74 98 12/21/16 00:00 99.1 F 91 8 L 123/66 96 12/20/16 23:30 108 H 7 L 119/71 98 12/20/16 23:26 92 9 L 119/71 97 12/20/16 23:20 92 27 H 119/71 97 12/20/16 23:10 92 20 107/68 96 12/20/16 23:00 91 11 L 107/68 97 12/20/16 22:59 106 H 12/20/16 22:50 93 18 120/76 96 12/20/16 22:48 94 12/20/16 22:40 92 14 131/68 97 12/20/16 22:34 10 L 12/20/16 22:30 91 10 L 131/68 96 12/20/16 22:20 92 14 121/70 96 12/20/16 22:10 89 14 105/61 96 12/20/16 22:00 83 13 105/61 96 12/20/16 21:50 82 13 101/55 96 12/20/16 21:40 84 0 L 97/57 96 12/20/16 21:30 85 13 97/57 95 12/20/16 21:20 85 14 100/60 96 12/20/16 21:10 85 15 109/54 96 12/20/16 21:00 87 19 109/54 97 12/20/16 20:50 87 13 126/70 98 12/20/16 20:40 88 13 132/63 98 12/20/16 20:30 98.0 F 86 13 132/63 98 12/20/16 20:24 119/63 Intake and Output 12/20/16 12/21/16 12/21/16 22:59 06:59 14:59 Intake Total 2565 1800 1000 Output Total 730 245 295 Balance 1835 1555 705 Intake: IV 2400 775 0.9 NACL 400 D5 0.45 20meq 20KCL 375 Intake, IV Titration 165 1800 225 Amount D5-0.45% NaCl with KCl 125 1000 125 20Meq/l 1,000 ml @ 125 mls/hr IV .Q8H [facility] Rx#: [id number] Lactated Ringers 1,000 ml 40 As IV .STK-MED ONE Rx#: [id number] Magnesium Sulfate-D5w Pmx 100 100 1 gm In Dextrose/Water 1 100ml.bag @ 100 mls/hr IVPB Q1H [facility] Rx#: [id number] Sodium Chloride 0.9% 500 500 ml @ 999 mls/hr IV .Q31M [facility] Rx#:[id number] ceFAZolin 2 gm In Sodium 100 Chloride 0.9% 100 ml @ 100 mls/hr IVPB ONCE ONE Rx#:[id number] metroNIDAZOLE-NS PMX 500 100 mg In Saline 1 100ml.bag @ 100 mls/hr IVPB ONCE ONE Rx#:[id number] Oral 0 0 0 Output: Gastric Drainage 50 Drainage 60 70 20 Right Lower Abdomen 60 70 20 Urine 370 125 275 Estimated Blood Loss 300 Other: Voiding Method Indwelling Catheter Indwelling Catheter Indwelling Catheter Weight 87.6 kg PHYSICAL EXAMINATION: Patient is lying in the bed comfortably, no acute distress, awake alert and oriented.. HEENT: Normocephalic. Neck is supple. Pupils reactive. Nostrils clear. Oral cavity is moist. Ears reveal no drainage. Neck reveals no JVD, carotid bruits, or thyromegaly. CHEST EXAMINATION: Trachea is central. Symmetrical expansion. Lung vela clear to auscultation and percussion. CARDIAC: Normal S1, S2 with no gallops. No murmurs ABDOMEN: Soft. Bowel sounds normal. No organomegaly. No abdominal bruits. Abdominal surgical site is bandaged. Wound VAC in place. mild to moderate tenderness with palpation. Extremities reveal no edema. No clubbing or cyanosis Neurologically awake, alert, oriented x3 with well-coordinated movements. Skin: no rash or skin lesions Musculoskeletal: no joint swelling or deformity. Results CBC & Chem 7: 12/21/16 04:07 12/21/16 04:07 Labs: Abnormal Lab Results - Last 24 Hours (Table) 12/20/16 12/20/16 12/20/16 Range/Units 20:26 20:50 20:50 WBC 14.1 H (3.8-10.6) k/uL RBC (3.80-5.40) m/uL MCV (80.0-100.0) fL Neutrophils # 12.9 H (1.3-7.7) k/uL Lymphocytes # 0.4 L (1.0-4.8) k/uL Monocytes # (0-1.0) k/uL ABG pH (7.35-7.45) ABG pO2 (83-108) mmHg ABG Total CO2 (19-24) mmol/L ABG O2 Saturation (94-97) % Sodium 136 L (137-145) mmol/L Potassium (3.5-5.1) mmol/L Carbon Dioxide (22-30) mmol/L Glucose 142 H (74-99) mg/dL POC Glucose (mg/dL) 129 H (75-99) mg/dL Calcium (8.4-10.2) mg/dL Phosphorus (2.5-4.5) mg/dL Urine Protein (Negative) Urine Ketones (Negative) Urine Blood (Negative) Ur Leukocyte Esterase (Negative) Urine RBC (0-5) /hpf Urine WBC (0-5) /hpf Hyaline Casts (0-2) /lpf Urine Mucus (None) /hpf 12/20/16 12/21/16 12/21/16 Range/Units 20:54 00:12 00:24 WBC (3.8-10.6) k/uL RBC (3.80-5.40) m/uL MCV (80.0-100.0) fL Neutrophils # (1.3-7.7) k/uL Lymphocytes # (1.0-4.8) k/uL Monocytes # (0-1.0) k/uL ABG pH 7.34 L (7.35-7.45) ABG pO2 >400 H 117 H (83-108) mmHg ABG Total CO2 25 H (19-24) mmol/L ABG O2 Saturation 100.0 H 98.0 H (94-97) % Sodium (137-145) mmol/L Potassium (3.5-5.1) mmol/L Carbon Dioxide (22-30) mmol/L Glucose (74-99) mg/dL POC Glucose (mg/dL) 151 H (75-99) mg/dL Calcium (8.4-10.2) mg/dL Phosphorus (2.5-4.5) mg/dL Urine Protein (Negative) Urine Ketones (Negative) Urine Blood (Negative) Ur Leukocyte Esterase (Negative) Urine RBC (0-5) /hpf Urine WBC (0-5) /hpf Hyaline Casts (0-2) /lpf Urine Mucus (None) /hpf 12/21/16 12/21/16 12/21/16 Range/Units 03:00 04:07 04:07 WBC 19.6 H (3.8-10.6) k/uL RBC 3.75 L (3.80-5.40) m/uL MCV 103.4 H (80.0-100.0) fL Neutrophils # 16.9 H (1.3-7.7) k/uL Lymphocytes # 0.6 L (1.0-4.8) k/uL Monocytes # 1.9 H (0-1.0) k/uL ABG pH (7.35-7.45) ABG pO2 (83-108) mmHg ABG Total CO2 (19-24) mmol/L ABG O2 Saturation (94-97) % Sodium 131 L (137-145) mmol/L Potassium 5.2 H (3.5-5.1) mmol/L Carbon Dioxide 15 L (22-30) mmol/L Glucose 157 H (74-99) mg/dL POC Glucose (mg/dL) (75-99) mg/dL Calcium 7.9 L (8.4-10.2) mg/dL Phosphorus 5.3 H (2.5-4.5) mg/dL Urine Protein 1+ H (Negative) Urine Ketones Trace H (Negative) Urine Blood Large H (Negative) Ur Leukocyte Esterase Moderate H (Negative) Urine RBC >182 H (0-5) /hpf Urine WBC 38 H (0-5) /hpf Hyaline Casts 34 H (0-2) /lpf Urine Mucus Occasional H (None) /hpf 12/21/16 Range/Units 06:35 WBC (3.8-10.6) k/uL RBC (3.80-5.40) m/uL MCV (80.0-100.0) fL Neutrophils # (1.3-7.7) k/uL Lymphocytes # (1.0-4.8) k/uL Monocytes # (0-1.0) k/uL ABG pH (7.35-7.45) ABG pO2 (83-108) mmHg ABG Total CO2 (19-24) mmol/L ABG O2 Saturation (94-97) % Sodium (137-145) mmol/L Potassium (3.5-5.1) mmol/L Carbon Dioxide (22-30) mmol/L Glucose (74-99) mg/dL POC Glucose (mg/dL) 167 H (75-99) mg/dL Calcium (8.4-10.2) mg/dL Phosphorus (2.5-4.5) mg/dL Urine Protein (Negative) Urine Ketones (Negative) Urine Blood (Negative) Ur Leukocyte Esterase (Negative) Urine RBC (0-5) /hpf Urine WBC (0-5) /hpf Hyaline Casts (0-2) /lpf Urine Mucus (None) /hpf Assessment and Plan Plan: #1 status post laparoscopic cholecystectomy, laparoscopic lysis of adhesions, open low anterior resection with intraoperative sigmoidoscopy, peristomal hernia repair and open placement of descending colostomy. Is postoperative day #1. #2 history of previous ruptured diverticuli with resection and colostomy placement. #3 History of chronic persistent bronchial asthma. Home oxygen and steroid dependent. stable. #4 Multilevel compression fraction of the thoracic and lumbar spine with chronic back pain. #5 Morbid obesity. #6 paroxysmal A. fib defibrillation. Anticoagulation can be restarted tomorrow #7 GERD #8 leukocytosis Plan: Patient will be continued on breathing treatments and incentive spirometry. Continue with antibiotics in the form of Ancef and Flagyl. Continue the hydrocortisone 100 mg every 8 hourly. GI and DVT prophylaxis. Prognosis is guarded with multiple medical problems and comorbid conditions. Time with Patient: Greater than 30
[2016-12-22] MEDS: metroNIDAZOLE-NS PMX 500 MG in SALINE 1 100ML.BAG IVPB SCH ×4 (00:19→23:24)
[2016-12-22] MEDS: KETOROLAC 30 MG/ML 1 ML VIAL IVP PRN ×2 (04:15→14:28)
[2016-12-22 04:35] LABS: Basophils % (A) 0 %; CH 31.6; CHCM 32.3; Eosinophils # (A) 0.2 k/uL (0-0.7); Eosinophils % (A) 1 %; HCT 33.9 % (34.0-46.0); HDW 2.38; HGB 11.3 gm/dL (11.4-16.0); Luc # (Auto) 0.12; Luc % (Auto) 1; Lymphocytes # (A) 0.6 k/uL (1.0-4.8); Lymphocytes % (A) 3 %; MCH 32.5 pg (25.0-35.0); MCHC 33.2 g/dL (31.0-37.0); Mean Platelet Volume 7.7; Monocytes # (A) 0.7 k/uL (0-1.0); Monocytes % (A) 4 %; Neutrophils # (A) 15.2 k/uL (1.3-7.7); Neutrophils % (A) 91 %; RBC 3.46 m/uL (3.80-5.40); RDW 14.4 % (11.5-15.5); WBC 16.7 k/uL (3.8-10.6); WBC (Perox) 17.25
[2016-12-22 05:12] LABS: Anion Gap 7 mmol/L; Blood Urea Nitrogen 22 mg/dL (7-17); Calcium 8.2 mg/dL (8.4-10.2); Carbon Dioxide 22 mmol/L (22-30); Chloride 110 mmol/L (98-107); Glucose 97 mg/dL (74-99); Magnesium 2.5 mg/dL (1.6-2.3); Non-African American GFR(MDRD) >60 (>60 ml/min/1.73 sqM); Phosphorous 3.4 mg/dL (2.5-4.5); Potassium 5.1 mmol/L (3.5-5.1); Sodium 139 mmol/L (137-145)
--- NOTE | 2016-12-22 05:14 | P.PN ---
Subjective Principal diagnosis: Diverticular disease Patient is postop day number 2 from laparoscopic cholecystectomy, robotic- assisted laparoscopic lysis of adhesions, takedown of descending left colostomy , attempted laparoscopic reversal of descending colostomy, open low anterior resection with mobilization of the splenic flexure, closure of peristomal hernia , formation of colostomy. The patient had a history of perforated diverticulitis with sepsis which had resulted in her colostomy initially. Intraoperatively the patient was noted to have severe diffuse peritoneal adhesions, parastomal hernia. Additionally she had a small bowel obstruction involving the distal small bowel in the deep pelvis. 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 She has chronic pain syndrome with chronic back pain. She has atrial fibrillation, congestive heart failure. She has had multiple compression fractures of the thoracic and lumbar spine. Postoperatively the patient is doing well in the intensive care unit. She is extubated. No output at this time from the ostomy. Objective - Vital Signs Vital signs: Vital Signs Temp 98.3 F 12/22/16 04:00 Pulse 92 12/22/16 04:00 Resp 16 12/22/16 04:00 BP 143/69 12/22/16 04:00 Pulse Ox 96 12/22/16 04:00 Intake & Output 12/21/16 12/21/16 12/22/16 06:59 18:59 06:59 Intake Total 3365 1400 1500 Output Total 975 523 365 Balance 2390 877 1135 Weight 87.6 kg 87.6 kg Intake: IV 1400 1175 1000 0.9 NACL 800 1000 D5 0.45 20meq 20KCL 375 Intake, IV Titration 1965 225 200 Amount D5-0.45% NaCl with KCl 1125 125 20Meq/l 1,000 ml @ 125 mls/hr IV .Q8H [facility] Rx#: [id number] Lactated Ringers 1,000 ml 40 As IV .[facility] Rx#: [id number] Magnesium Sulfate-D5w Pmx 100 100 1 gm In Dextrose/Water 1 100ml.bag @ 100 mls/hr IVPB Q1H [facility] Rx#: [id number] Sodium Chloride 0.9% 500 500 ml @ 999 mls/hr IV .Q31M [facility] Rx#:[id number] ceFAZolin 2 gm In Sodium 100 Chloride 0.9% 100 ml @ 100 mls/hr IVPB ONCE ONE Rx#:[id number] ceFAZolin 2 gm In Sodium 100 Chloride 0.9% 100 ml @ 100 mls/hr IVPB Q8HR [facility] Rx#:[id number] metroNIDAZOLE-NS PMX 500 100 mg In Saline 1 100ml.bag @ 100 mls/hr IVPB ONCE ONE Rx#:[id number] metroNIDAZOLE-NS PMX 500 100 mg In Saline 1 100ml.bag @ 100 mls/hr IVPB Q8HR [facility] Rx#:[id number] Oral 0 0 300 Output: Gastric Drainage 50 Drainage 130 20 20 Right Lower Abdomen 130 20 20 Urine 495 503 345 Estimated Blood Loss 300 Other: Voiding Method Indwelling Catheter Indwelling Catheter Indwelling Catheter - Constitutional General appearance: Present: no acute distress - Respiratory Details: Slightly decreased breath sounds at the bases Respiratory: bilateral: CTA - Cardiovascular Rhythm: regular Heart sounds: normal: S1, S2 - Gastrointestinal Gastrointestinal Comment(s): PRAVENA wound VAC in place Serosanguineous ELENI output Ostomy pink General gastrointestinal: Present: absent bowel sounds, soft - Integumentary Integumentary Comment(s): Achymosis along distal forearm - Neurologic Neurologic: Present: CNII-XII intact - Psychiatric Psychiatric: Present: A&O x's 3, appropriate affect, intact judgment & insight - Labs CBC & Chem 7: 12/22/16 04:21 12/21/16 04:07 Labs: Abnormal Lab Results - Last 24 Hours (Table) 12/21/16 12/21/16 12/22/16 Range/Units 04:07 06:35 04:21 WBC 19.6 H 16.7 H (3.8-10.6) k/uL RBC 3.75 L 3.46 L (3.80-5.40) m/uL Hgb 11.3 L (11.4-16.0) gm/dL Hct 33.9 L (34.0-46.0) % MCV 103.4 H (80.0-100.0) fL Neutrophils # 16.9 H 15.2 H (1.3-7.7) k/uL Lymphocytes # 0.6 L 0.6 L (1.0-4.8) k/uL Monocytes # 1.9 H (0-1.0) k/uL POC Glucose (mg/dL) 167 H (75-99) mg/dL Assessment and Plan Plan: Impression/plan: 1. Postop day #2 extensive lysis of adhesions, cholecystectomy, repair of peristomal hernia, low anterior resection with formation of colostomy 2. Atrial fibrillation. Congestive heart failure 4. COPD 5. Chronic steroid use Plan: 1. Awaiting a.m. laboratory results. 2. Patient is tolerating extubation 3. Probable transfer to surgical floor if okay with museum or zoo director 4. Continue abdominal binder 6. Improved leukocytosis will continue to monitor 7. We'll continue IV antibiotics for contaminated case
[2016-12-22] MEDS: HYDROmorphone 1 MG/ML 1 ML SYRINGE IVP PRN ×4 (06:24→20:44)
[2016-12-22] MEDS: IPRATROPIUM-ALBUTEROL 3 ML NEB INHALATION SCH ×4 (07:25→20:00)
--- NOTE | 2016-12-22 07:26 | XR ---
EXAMINATION TYPE: XR chest 1V DATE OF EXAM: 12/22/2016 HISTORY: COPD. REFERENCE: Previous study dated 12/21/2016. FINDINGS: The patient is ET tube has been removed. The heart is enlarged. There is bibasilar airspace disease either representing atelectasis or pneumon ia. I cannot exclude small, bilateral effusions. IMPRESSION: 1. CARDIOMEGALY. 2. BIBASILAR ATELECTASIS. 3. I CANNOT EXCLUDE SMALL, BILATERAL EFFUSIONS.
[2016-12-22] MEDS: HYDROCORTISONE SUCCINATE 100 MG/2 ML VIAL IV SCH (09:00)
[2016-12-22] MEDS: SODIUM CHLORIDE 0.9% 1,000 ML IV SCH ×2 (09:00→17:46)
[2016-12-22] MEDS: ceFAZolin 2 GM in SODIUM CHLORIDE 0.9% 100 ML IVPB SCH ×3 (09:00→23:24)
[2016-12-22] MEDS: HEPARIN SODIUM,PORCINE 5,000 UNIT/ML 1 ML VIAL SQ SCH ×3 (09:00→23:24)
[2016-12-22] MEDS: FAMOTIDINE 20 MG/2 ML VIAL IV SCH ×2 (09:00→20:43)
--- NOTE | 2016-12-22 10:33 | P.PN ---
Subjective Progress note dated 12/22/2016 66-year-old female who underwent a attempted reversal of colostomy. About 4 months ago she had a ruptured diverticuli and underwent a surgery with colostomy. I she was to come back in for reversal colostomy but unfortunately because of the adhesions, it cannot be done. She had colostomy revised. In addition she had a cholecystectomy and also a hernia repair. This included isn' t in addition to the exploratory laparotomy. She has history of chronic back pain with multiple compression fractures of the thoracic spine osteoporosis skin cancer sepsis secondary urinary tract infection GERD severe asthma paroxysmal atrial fibrillation CAD heart failure. She sees me in the office for her chronic bronchial asthma which is quite severe. Anyway, the patient is postop day #2. Doing well. Currently on O2 at 2 L. IV 0.9 at 100 mL an hour. Respiratory status and hemodynamic status of both stable. Objective - Vital Signs Vital signs: Vital Signs Temp 97.9 F 12/22/16 08:00 Pulse 101 H 12/22/16 10:00 Resp 26 H 12/22/16 10:00 BP 127/58 12/22/16 10:00 Pulse Ox 98 12/22/16 10:00 Intake & Output 12/21/16 12/22/16 12/22/16 18:59 06:59 18:59 Intake Total 1400 1700 600 Output Total 523 450 80 Balance 877 1250 520 Weight 88 kg Intake: IV 1175 1200 600 0.9 NACL 800 1200 400 D5 0.45 20meq 20KCL 375 flagyl 100 kefzol 100 Intake, IV Titration 225 200 Amount D5-0.45% NaCl with KCl 125 20Meq/l 1,000 ml @ 125 mls/hr IV .Q8H [facility] Rx#: [id number] Magnesium Sulfate-D5w Pmx 100 1 gm In Dextrose/Water 1 100ml.bag @ 100 mls/hr IVPB Q1H [facility] Rx#: [id number] ceFAZolin 2 gm In Sodium 100 Chloride 0.9% 100 ml @ 100 mls/hr IVPB Q8HR [facility] Rx#:[id number] metroNIDAZOLE-NS PMX 500 100 mg In Saline 1 100ml.bag @ 100 mls/hr IVPB Q8HR [facility] Rx#:[id number] Oral 0 300 Output: Drainage 20 45 Right Lower Abdomen 20 45 Urine 503 405 80 Other: Voiding Method Indwelling Catheter Indwelling Catheter - Exam No acute distress, oriented 3. Wearing nasal O2. HEENT examination is grossly unremarkable. Mucous membranes are moist. No oral lesions. Neck supple. Full range of motion. No adenopathy or thyromegaly. Cardiovascular examination reveals regular rhythm rate. S1-S2 normal. Lungs reveal clear breath sounds. A few scattered mild rhonchi but they clear post deep inspiration. No crackles. No wheezes. Abdomen soft. There are no bowel sounds. Extremities are intact. Minimal edema. Skin without rash. - Labs CBC & Chem 7: 12/22/16 04:21 12/22/16 04:21 Labs: Abnormal Lab Results - Last 24 Hours (Table) 12/22/16 12/22/16 Range/Units 04:21 04:21 WBC 16.7 H (3.8-10.6) k/uL RBC 3.46 L (3.80-5.40) m/uL Hgb 11.3 L (11.4-16.0) gm/dL Hct 33.9 L (34.0-46.0) % Neutrophils # 15.2 H (1.3-7.7) k/uL Lymphocytes # 0.6 L (1.0-4.8) k/uL Chloride 110 H (98-107) mmol/L BUN 22 H (7-17) mg/dL Calcium 8.2 L (8.4-10.2) mg/dL Magnesium 2.5 H (1.6-2.3) mg/dL Assessment and Plan (1) Severe asthma Status: Acute (2) Atrial fibrillation Status: Acute (3) Chronic cholecystitis Status: Acute (4) Parastomal hernia Status: Acute (5) Peritoneal adhesions Status: Acute (6) Status post colostomy Status: Acute (7) Status post laparoscopic cholecystectomy Status: Acute (8) Status post partial colectomy Status: Acute (9) COPD, moderate Status: Acute (10) Hiatal hernia with GERD Status: Acute (11) Lumbar compression fracture Status: Acute (12) Perforated sigmoid colon Status: Acute (13) Perforation of sigmoid colon due to diverticulitis Status: Acute (14) Reflux esophagitis Status: Acute (15) Rheumatoid arthritis Status: Acute (16) Thoracic back pain Status: Acute (17) Thoracic compression fracture Status: Acute (18) Urinary tract infection Status: Acute Plan: Plan dated 12/22/2016 The patient's doing well. The patient will be moved up to the floor. The patient's hemodynamics and respiratory status are stable. I review the medications labs and x-rays. No additional recommendations are made. Prognosis is guarded. Time with Patient: Less than 30
[2016-12-22] MEDS: DILTIAZEM CD 180 MG CAP.ER.24H PO SCH (10:44)
[2016-12-22] MEDS: SYMBICORT 160-4.5 MCG INHALER INHALATION SCH (20:00)
--- NOTE | 2016-12-23 01:05 | P.PN ---
Subjective Principal diagnosis: Laparoscopic cholecystectomy and lysis of adhesions Patient is a 66-year-old female with a known history of ruptured diverticuli with subsequent surgery and colostomy approximately 4 months ago, coronary artery disease, paroxysmal atrial fibrillation, oxygen-dependent, steroid- dependent chronic bronchial asthma admitted by Dr. Herndon for a laparoscopic cholecystectomy. Patient underwent cholecystectomy and robotic- assisted laparoscopic lysis of adhesions, takedown of colostomy, open low anterior resection, sigmoidoscopy, parastomal hernia repair descending colostomy , open replacement of descending colostomy. She was not extubated in recovery and was transferred to the intensive care unit. Patient is currently extubated now. Her chest x-ray shows bibasilar atelectasis and cardiomegaly and a small left- sided effusion. She has a loose nonproductive cough. No chills or night sweats. She does have an abdominal wound VAC in place. She remains on Ancef and Flagyl. She is on hydrocortisone she remains on bronchodilators. Currently patient complains of abdominal discomfort otherwise no chest pain no short of breath On 12/22/2016 Patient continues to have abdominal pain patient did have did pass flatus today. Able to ambulate in the hallway. No complaints of chest pain or short of breath. WBC count trending down to 16. No fever no chills. Objective - Vital Signs Vital signs: Vital Signs Temp 97.9 F 12/22/16 20:00 Pulse 80 12/22/16 20:15 Resp 18 12/22/16 20:00 BP 117/68 12/22/16 20:00 Pulse Ox 93 L 12/22/16 20:00 Intake & Output 12/22/16 12/22/16 12/23/16 06:59 18:59 06:59 Intake Total 1700 800 Output Total 450 210 Balance 1250 590 Weight 88 kg Intake: IV 1200 800 0.9 NACL 1200 600 flagyl 100 kefzol 100 Intake, IV Titration 200 Amount ceFAZolin 2 gm In Sodium 100 Chloride 0.9% 100 ml @ 100 mls/hr IVPB Q8HR [facility] Rx#:[id number] metroNIDAZOLE-NS PMX 500 100 mg In Saline 1 100ml.bag @ 100 mls/hr IVPB Q8HR [facility] Rx#:[id number] Oral 300 Output: Drainage 45 40 Right Lower Abdomen 45 40 Urine 405 170 Other: Voiding Method Indwelling Catheter Indwelling Catheter Toilet - Exam Patient is lying in the bed comfortably, no acute distress, awake alert and oriented.. HEENT: Normocephalic. Neck is supple. Pupils reactive. Nostrils clear. Oral cavity is moist. Ears reveal no drainage. Neck reveals no JVD, carotid bruits, or thyromegaly. CHEST EXAMINATION: Trachea is central. Symmetrical expansion. Lung vela clear to auscultation and percussion. CARDIAC: Normal S1, S2 with no gallops. No murmurs ABDOMEN: Soft. Bowel sounds present. No organomegaly. No abdominal bruits. Abdominal surgical site is bandaged. mild tenderness with palpation. Extremities reveal no edema. No clubbing or cyanosis Neurologically awake, alert, oriented x3 with well-coordinated movements. Skin: no rash or skin lesions Musculoskeletal: no joint swelling or deformity. - Labs CBC & Chem 7: 12/22/16 04:21 12/22/16 04:21 Labs: Abnormal Lab Results - Last 24 Hours (Table) 12/22/16 12/22/16 Range/Units 04:21 04:21 WBC 16.7 H (3.8-10.6) k/uL RBC 3.46 L (3.80-5.40) m/uL Hgb 11.3 L (11.4-16.0) gm/dL Hct 33.9 L (34.0-46.0) % Neutrophils # 15.2 H (1.3-7.7) k/uL Lymphocytes # 0.6 L (1.0-4.8) k/uL Chloride 110 H (98-107) mmol/L BUN 22 H (7-17) mg/dL Calcium 8.2 L (8.4-10.2) mg/dL Magnesium 2.5 H (1.6-2.3) mg/dL Assessment and Plan Plan: #1 status post laparoscopic cholecystectomy, laparoscopic lysis of adhesions, open low anterior resection with intraoperative sigmoidoscopy, peristomal hernia repair and open placement of descending colostomy. Is postoperative day #2. #2 history of previous ruptured diverticuli with resection and colostomy placement. #3 History of chronic persistent bronchial asthma. Home oxygen and steroid dependent. stable. #4 Multilevel compression fraction of the thoracic and lumbar spine with chronic back pain. #5 Morbid obesity. #6 paroxysmal A. fib defibrillation. Anticoagulation can be restarted tomorrow #7 GERD #8 leukocytosis. Improving Plan: Patient will be continued on breathing treatments and incentive spirometry. Continue with antibiotics in the form of Ancef and Flagyl. Discontinued hydrocortisone IV 100 mg every 8 hourly. Ambulation. GI and DVT prophylaxis. Prognosis is guarded with multiple medical problems and comorbid conditions. Time with Patient: Greater than 30
[2016-12-23] MEDS: KETOROLAC 30 MG/ML 1 ML VIAL IVP PRN ×2 (01:56→07:49)
[2016-12-23] MEDS: SODIUM CHLORIDE 0.9% 1,000 ML IV SCH ×3 (03:17→22:42)
[2016-12-23 06:50] LABS: Basophils % (A) 0 %; CH 31.1; CHCM 31.3; Eosinophils # (A) 0.1 k/uL (0-0.7); Eosinophils % (A) 1 %; HCT 31.3 % (34.0-46.0); HDW 2.46; Hypochromasia Slight; Luc # (Auto) 0.06; Luc % (Auto) 1; Lymphocytes # (A) 0.9 k/uL (1.0-4.8); Lymphocytes % (A) 9 %; MCH 31.8 pg (25.0-35.0); MCHC 31.9 g/dL (31.0-37.0); MCV 99.7 fL (80.0-100.0); Macrocytosis Slight; Monocytes # (A) 0.8 k/uL (0-1.0); Monocytes % (A) 8 %; Neutrophils # (A) 8.2 k/uL (1.3-7.7); Neutrophils % (A) 82 %; RBC 3.14 m/uL (3.80-5.40); RDW 14.5 % (11.5-15.5); WBC 10.1 k/uL (3.8-10.6); WBC (Perox) 10.43
[2016-12-23 06:57] LABS: Anion Gap 6 mmol/L; Blood Urea Nitrogen 21 mg/dL (7-17); Calcium 7.9 mg/dL (8.4-10.2); Carbon Dioxide 21 mmol/L (22-30); Chloride 114 mmol/L (98-107); Glucose 69 mg/dL (74-99); Magnesium 2.5 mg/dL (1.6-2.3); Non-African American GFR(MDRD) >60 (>60 ml/min/1.73 sqM); Potassium 4.1 mmol/L (3.5-5.1); Sodium 141 mmol/L (137-145)
[2016-12-23] MEDS: DILTIAZEM CD 180 MG CAP.ER.24H PO SCH (07:55)
[2016-12-23] MEDS: FAMOTIDINE 20 MG/2 ML VIAL IV SCH ×2 (07:55→22:42)
[2016-12-23] MEDS: HEPARIN SODIUM,PORCINE 5,000 UNIT/ML 1 ML VIAL SQ SCH ×2 (07:55→15:28)
[2016-12-23] MEDS: ceFAZolin 2 GM in SODIUM CHLORIDE 0.9% 100 ML IVPB SCH ×2 (08:07→15:27)
[2016-12-23] MEDS: metroNIDAZOLE-NS PMX 500 MG in SALINE 1 100ML.BAG IVPB SCH ×3 (08:08→23:22)
[2016-12-23] MEDS: SYMBICORT 160-4.5 MCG INHALER INHALATION SCH ×2 (08:33→20:43)
[2016-12-23] MEDS: IPRATROPIUM-ALBUTEROL 3 ML NEB INHALATION SCH ×4 (08:33→20:49)
--- NOTE | 2016-12-23 11:52 | P.PN ---
<JonhKayleenAngelika M - Last Filed: 12/23/16 11:28> Subjective 66-year-old female being seen on rounds this morning. Patient is awake states pain medication effective for pain control. Reports no nausea vomiting. Denies any shortness of breath. Patient states she has been up to the bathroom and sat in a chair this morning did note there is moderate amount of formed stool in the ostomy bag this morning abdominal binder is in place Patient's postop on December 20 laparoscopic cholecystectomy, robotic-assisted laparoscopic lysis of adhesions, takedown of descending left colostomy, open lower anterior resection with mobilization of splinic fexure, open closure of a parastomal hernia placement of the descending colostomy, placement of right lower quadrant ELENI drain with placement of prevera wound VAC system Objective - Vital Signs Vital signs: Vital Signs Temp 98.5 F 12/23/16 07:44 Pulse 88 12/23/16 08:48 Resp 16 12/23/16 07:44 BP 130/78 12/23/16 07:44 Pulse Ox 94 L 12/23/16 07:44 Intake & Output 12/22/16 12/23/16 12/23/16 18:59 06:59 18:59 Intake Total 800 1350 Output Total 210 40 Balance 590 1350 -40 Intake: IV 800 0.9 NACL 600 flagyl 100 kefzol 100 Intake, IV Titration 1350 Amount Sodium Chloride 0.9% 1, 1150 000 ml @ 100 mls/hr IV . Q10H [facility] Rx#:[id number] ceFAZolin 2 gm In Sodium 100 Chloride 0.9% 100 ml @ 100 mls/hr IVPB Q8HR [facility] Rx#:[id number] metroNIDAZOLE-NS PMX 500 100 mg In Saline 1 100ml.bag @ 100 mls/hr IVPB Q8HR [facility] Rx#:[id number] Output: Drainage 40 40 Right Lower Abdomen 40 40 Urine 170 Other: Voiding Method Indwelling Catheter Toilet Toilet # Voids 2 - Exam Physical exam 66-year-old female sitting up in bed states that she just was up in a chair this morning states pain medication effective for pain control Lungs diminished at the bases otherwise adequate air movement Heart S1-S2 audible and regular Abdomen prevena wound VAC system in place ELENI drain right lower quadrant ostomy left lower quadrant moderate amount of stool in the ostomy bag surgical dressing dry abdominal binder in place Extremities trace pedal edema bilaterally - Labs CBC & Chem 7: 12/23/16 06:37 12/23/16 06:37 Labs: Abnormal Lab Results - Last 24 Hours (Table) 12/23/16 12/23/16 Range/Units 06:37 06:37 RBC 3.14 L (3.80-5.40) m/uL Hgb 10.0 L (11.4-16.0) gm/dL Hct 31.3 L (34.0-46.0) % Neutrophils # 8.2 H (1.3-7.7) k/uL Lymphocytes # 0.9 L (1.0-4.8) k/uL Chloride 114 H (98-107) mmol/L Carbon Dioxide 21 L (22-30) mmol/L BUN 21 H (7-17) mg/dL Glucose 69 L (74-99) mg/dL Calcium 7.9 L (8.4-10.2) mg/dL Phosphorus 2.0 L (2.5-4.5) mg/dL Magnesium 2.5 H (1.6-2.3) mg/dL Assessment and Plan Plan: Impression History of perforated diverticulitis resulting initially in a descending colonoscopy Steroid dependent COPD Severe COPD with oxygen dependency Chronic debility with a history of multiple compression fractures of the thoracic and lumbar spine Chronic pain syndrome with chronic back pain Postop December 20 extensive lysis of adhesions, cholecystectomy, repair of peristomal hernia, low anterior resection with the formation of colostomy Paroxysmal atrial fibrillation current sinus rhythm Obesity BMI 33 Plan Continue postop surgical care Continue with recommendations per medicine service Resume home meds as appropriate Increase activity DVT and GI prophylaxis Respiratory treatments as ordered IV antibiotics Flagyl and kefzol Nothing by mouth except for ice chips medication Further surgical recommendations pending Continue wound care as ordered The above impression and plan of care have been discussed and directed by signing physician. Angelika Borja nurse practitioner acting as scribe for signing physician. <Renae Herndon - Last Filed: 12/23/16 19:22> Objective - Vital Signs Vital signs: Vital Signs Temp 97.7 F 12/23/16 14:20 Pulse 88 12/23/16 16:35 Resp 16 12/23/16 14:20 BP 128/69 12/23/16 14:20 Pulse Ox 94 L 12/23/16 14:20 Intake & Output 12/23/16 12/23/16 12/24/16 06:59 18:59 06:59 Intake Total 1350 Output Total 60 Balance 1350 -60 Intake: Intake, IV Titration 1350 Amount Sodium Chloride 0.9% 1, 1150 000 ml @ 100 mls/hr IV . Q10H [facility] Rx#:[id number] ceFAZolin 2 gm In Sodium 100 Chloride 0.9% 100 ml @ 100 mls/hr IVPB Q8HR [facility] Rx#:[id number] metroNIDAZOLE-NS PMX 500 100 mg In Saline 1 100ml.bag @ 100 mls/hr IVPB Q8HR [facility] Rx#:[id number] Output: Drainage 60 Right Lower Abdomen 60 Other: Voiding Method Toilet Toilet # Voids 2 1 - Labs CBC & Chem 7: 12/23/16 06:37 12/23/16 06:37 Labs: Abnormal Lab Results - Last 24 Hours (Table) 12/23/16 12/23/16 Range/Units 06:37 06:37 RBC 3.14 L (3.80-5.40) m/uL Hgb 10.0 L (11.4-16.0) gm/dL Hct 31.3 L (34.0-46.0) % Neutrophils # 8.2 H (1.3-7.7) k/uL Lymphocytes # 0.9 L (1.0-4.8) k/uL Chloride 114 H (98-107) mmol/L Carbon Dioxide 21 L (22-30) mmol/L BUN 21 H (7-17) mg/dL Glucose 69 L (74-99) mg/dL Calcium 7.9 L (8.4-10.2) mg/dL Phosphorus 2.0 L (2.5-4.5) mg/dL Magnesium 2.5 H (1.6-2.3) mg/dL Assessment and Plan (1) Peritoneal adhesions Status: Acute (2) Status post partial colectomy Status: Acute (3) Status post laparoscopic cholecystectomy Status: Acute (4) Atrial fibrillation Status: Acute (5) Congestive heart failure Status: Acute (6) COPD, moderate Status: Acute (7) Current chronic use of systemic steroids Status: Acute (8) Perforation of sigmoid colon due to diverticulitis Status: Acute (9) Status post colostomy Status: Acute (10) Parastomal hernia Status: Acute (11) Chronic cholecystitis Status: Acute Plan: Patient seen and evaluated. We will proceed with start of diet has her ostomy is working. Discharge home for Friday, December 25.
[2016-12-23] MEDS: HYDROmorphone 1 MG/ML 1 ML SYRINGE IVP PRN ×2 (12:15→16:24)
--- NOTE | 2016-12-23 16:11 | P.PN ---
Subjective A 66-year-old here patient underwent an attempted reversal of colostomy. This was not successful. The patient extensive adhesions. The patient underwent lysis of adhesions and the colostomy was also advised. The hernia was repaired and cholecystectomy was done. On 12/23/2016 and seeing this patient in follow-up H is doing well. She remains nothing by mouth and she was wondering his diet can be provided to her. Her bowel sounds are sluggish. Her colostomy site dysfunctional and there is gas and some liquidy material emanating in the colostomy bag. No abdominal distention. No nausea. No vomiting patient does not have an NG tube in place. No fever or chills. Hemodynamically stable on normal saline today to 100 mL an hour. Using incentive spirometer. She is also known to have bronchial asthma is currently inactive and stable. She has had history of chronic atrial fibrillation, coronary artery disease, congestion heart failure, chronic back pain with multiple compression fracture of the thoracic spine along with osteoporosis. Her condition is stable. Objective - Vital Signs Vital signs: Vital Signs Temp 97.7 F 12/23/16 14:20 Pulse 97 12/23/16 14:20 Resp 16 12/23/16 14:20 BP 128/69 12/23/16 14:20 Pulse Ox 94 L 12/23/16 14:20 Intake & Output 12/22/16 12/23/16 12/23/16 18:59 06:59 18:59 Intake Total 800 1350 Output Total 210 60 Balance 590 1350 -60 Intake: IV 800 0.9 NACL 600 flagyl 100 kefzol 100 Intake, IV Titration 1350 Amount Sodium Chloride 0.9% 1, 1150 000 ml @ 100 mls/hr IV . Q10H [facility] Rx#:[id number] ceFAZolin 2 gm In Sodium 100 Chloride 0.9% 100 ml @ 100 mls/hr IVPB Q8HR [facility] Rx#:[id number] metroNIDAZOLE-NS PMX 500 100 mg In Saline 1 100ml.bag @ 100 mls/hr IVPB Q8HR [facility] Rx#:[id number] Output: Drainage 40 60 Right Lower Abdomen 40 60 Urine 170 Other: Voiding Method Indwelling Catheter Toilet Toilet # Voids 2 1 - Exam Gen. appearance the patient is calm and comfortable. Not using it is muscle breathing and she is very comfortable breathing.Head exam was generally normal. There was no scleral icterus or corneal arcus. Mucous membranes were moist. Neck is short and supple and there is significant crowding of the posterior pharynx. There is no goiter or neck masses. Lungs: Diminished in lung bases bilaterally. No wheezes or rhonchi. Heart sounds are irregular, possible sinus stool significant murmurs could be appreciated. Abdomen is soft and nontender. The patient has an abdominal bounded. Surgical wound site is dry clean and intact. Colostomy site is functional and viable. No direct tenderness. No rebound tensile guarding.Examination of the extremities revealed easily palpable radial, femoral and pedal pulses. There was no cyanosis , clubbing or edema. Skeletal exam is within normal limits without any fractures. No joint deformities. Skin exam is within normal limits and the abdominal wound over the anterior abdominal wall is dry clean and intact. Neurologic exam the patient is alert and awake and there is no focal neurological deficit at this point. - Labs CBC & Chem 7: 12/23/16 06:37 12/23/16 06:37 Labs: Abnormal Lab Results - Last 24 Hours (Table) 12/23/16 12/23/16 Range/Units 06:37 06:37 RBC 3.14 L (3.80-5.40) m/uL Hgb 10.0 L (11.4-16.0) gm/dL Hct 31.3 L (34.0-46.0) % Neutrophils # 8.2 H (1.3-7.7) k/uL Lymphocytes # 0.9 L (1.0-4.8) k/uL Chloride 114 H (98-107) mmol/L Carbon Dioxide 21 L (22-30) mmol/L BUN 21 H (7-17) mg/dL Glucose 69 L (74-99) mg/dL Calcium 7.9 L (8.4-10.2) mg/dL Phosphorus 2.0 L (2.5-4.5) mg/dL Magnesium 2.5 H (1.6-2.3) mg/dL Assessment and Plan Plan: Assessment 1 attempted colostomy reversal, patient is postop day #3. 2 previous history of perforated diverticulitis with sepsis and abscess requiring these were descending colostomy 3 advanced COPD, oxygen and steroid dependence 4 chronic pain involving the back 5 chronic atrial fibrillation 6 CHF 7 chronic cholecystitis status post cholecystectomy and the patient is postop day #3 8 obesity. 9 compression fracture of the thoracic spine Plan Patient is recovering well from surgery. We'll discuss with general surgeon the possibility of providing this patient some low level feeds. Surgical wound site is dry clean and intact. ELENI drains are in place. The patient will be asked to advance her activity as tolerated. Continue incentive spirometer. Continue the bronchodilators. No signs of any respiratory compromise. We'll follow. Pain control is adequate for now. Heparin for DVT prophylaxis.
--- NOTE | 2016-12-23 18:15 | P.PN ---
Progress Note - Text Attending note. Date of service-12/23/2016 This patient was seen and examined by me . Discussed the patient with my nurse practitioner Ms. Palafox. Status post abdominal surgery. Has been up to the bathroom. On ice chips. Has stool in his colostomy bag since yesterday. Has a wound VAC in place and a ELENI drain. On examination: Abdomen-tender, wound VAC in place, ELENI drain. Bowel bowel sounds sluggish Investigations: White count 10.1, hemoglobin 10 Assessment and plan: -Multiple chronic compression fracture including T7/T8/T10/T12/L2 and 6/and T8. 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 Care was discussed with the patient. Questions were answered. Patient is optimistic about the whole thing. Diet will be advanced per surgery
--- NOTE | 2016-12-23 18:45 | P.PN ---
Progress Note - Text DATE OF SERVICE: 12/23/2016 PRESENTING COMPLAINT: Elective cholecystectomy and colostomy reversal HISTORY OF PRESENT ILLNESS: 66-year-old female history of ruptured diverticulum subsequent surgery and colostomy about 4 months ago, admitted for laparoscopic cholecystectomy and is now status post cholecystectomy robotic-assisted laparoscopic lysis of adhesions , takedown of colostomy, low anterior resection, sigmoidoscopy, parastomal hernia repair, descending colostomy, open replacement of descending colostomy.. INTERVAL HISTORY: 12/23/2016 Patient seen on rounds today, sitting up in the bed, states she feels pretty good. Wound VAC in place draining sanguinous drainage, pain well controlled, abdomen tender, binder in place, remains nothing by mouth, diet to be advanced by surgery. Patient's colostomy bag is producing stool. REVIEW OF SYSTEMS: Done for constitutional ,cardiovascular, GI, pulmonary with relevant findings as above. CURRENT MEDICATIONS DuoNeb's, ceftezole and 2 g IV piggyback, diltiazem 180 mg by mouth daily, Toradol 15 mg IV push every 6 hours, metronidazole 500 mg in IV solution, PHYSICAL EXAM VITAL SIGNS: Temperature 98.5, pulse 84, respiratory rate 16, blood pressure 130/78, oxygen saturation 94% on room air. GENERAL APPEARANCE: Sitting up in bed, not in distress. EYES: Pupils equal. Conjunctiva normal. NECK: JVD not raised. Mass not palpable. RESPIRATORY: Respiratory effort normal. Lungs clear to auscultation. CARDIOVASCULAR: First and second sounds normal. No edema. ABDOMEN: Soft. Liver and spleen not palpable. Mild tenderness. No mass palpable , bowel sounds distant PSYCHIATRY: Alert and oriented x3. Mood and affect normal. NEUROLOGICAL: Cranial nerves grossly intact. No facial asymmetry. Power and sensation grossly intact INVESTIGATIONS: Hemoglobin 10.0, chloride 114, BUN 21, creatinine 0.68, Accu-Cheks noted. ASSESSMENT: -Multiple chronic compression fracture including T7/T8/T10/T12/L2 and 6/and T8. 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 Plan of care discussed with patient the bedside she is in agreement. We'll continue to follow closely. JOINER APPRENTICE statement: Patient was seen and examined by nurse practitioner Joann Palafox and all elements of the case discussed with attending Dr. Li
--- NOTE | 2016-12-23 19:23 | P.PN ---
Progress Note - Text Patient clinically doing well this afternoon. Pain is controlled. Ostomy is functioning with stool. She reports hunger. Will start regular diet. Potential discharge home in 24-48 hours.
[2016-12-23] MEDS ORDERED: ALBUTEROL NEBULIZED 2.5 MG/3 ML INHALATION PRN (19:24)
[2016-12-23] MEDS ORDERED: traMADol 50 MG TAB PO PRN (19:24)
[2016-12-23] MEDS ORDERED: SYMBICORT 160-4.5 MCG INHALER INHALATION SCH (20:00)
[2016-12-23] MEDS: PANTOPRAZOLE 40 MG TABLET PO SCH (20:32)
[2016-12-23] MEDS: APIXABAN 5 MG TAB PO SCH (20:32)
[2016-12-23] MEDS: CYCLOBENZAPRINE 5 MG TAB PO SCH (20:32)
[2016-12-23] MEDS: CEFUROXIME 250 MG TAB PO SCH (20:32)
[2016-12-23] MEDS: MONTELUKAST 10 MG TAB PO SCH (20:33)
[2016-12-23] MEDS: GABAPENTIN 100 MG CAP PO SCH (20:33)
[2016-12-23] MEDS: FLECAINIDE 50 MG TAB PO SCH (20:33)
[2016-12-23] MEDS: HYDROcodone/APAP 7.5-325MG 1 EACH TAB PO PRN (20:34)
[2016-12-23] MEDS: ALBUTEROL NEBULIZED 2.5 MG/3 ML INHALATION SCH (20:48)
[2016-12-24] MEDS: HYDROcodone/APAP 7.5-325MG 1 EACH TAB PO PRN ×3 (03:16→21:18)
[2016-12-24 07:55] LABS: Basophils % (A) 0 %; CH 31.9; CHCM 32.1; Eosinophils # (A) 0.2 k/uL (0-0.7); Eosinophils % (A) 2 %; HCT 30.7 % (34.0-46.0); HDW 2.56; HGB 9.5 gm/dL (11.4-16.0); Luc # (Auto) 0.05; Luc % (Auto) 1; Lymphocytes # (A) 0.9 k/uL (1.0-4.8); Lymphocytes % (A) 12 %; MCH 31.1 pg (25.0-35.0); MCHC 31.1 g/dL (31.0-37.0); Macrocytosis Slight; Mean Platelet Volume 7.8; Monocytes # (A) 0.4 k/uL (0-1.0); Monocytes % (A) 6 %; Neutrophils # (A) 5.8 k/uL (1.3-7.7); Neutrophils % (A) 79 %; RBC 3.07 m/uL (3.80-5.40); RDW 15.1 % (11.5-15.5); WBC 7.3 k/uL (3.8-10.6); WBC (Perox) 7.29
[2016-12-24 08:04] LABS: Anion Gap 6 mmol/L; Blood Urea Nitrogen 12 mg/dL (7-17); Calcium 7.5 mg/dL (8.4-10.2); Carbon Dioxide 21 mmol/L (22-30); Chloride 112 mmol/L (98-107); Glucose 60 mg/dL (74-99); Magnesium 2.1 mg/dL (1.6-2.3); Non-African American GFR(MDRD) >60 (>60 ml/min/1.73 sqM); Potassium 3.7 mmol/L (3.5-5.1); Sodium 139 mmol/L (137-145)
[2016-12-24] MEDS: CEFUROXIME 250 MG TAB PO SCH ×2 (08:07→21:22)
[2016-12-24] MEDS: APIXABAN 5 MG TAB PO SCH ×2 (08:07→21:22)
[2016-12-24] MEDS: predniSONE 10 MG TAB PO SCH (08:08)
[2016-12-24] MEDS: CYCLOBENZAPRINE 5 MG TAB PO SCH ×2 (08:08→21:22)
[2016-12-24] MEDS: FLECAINIDE 50 MG TAB PO SCH ×2 (08:10→21:22)
[2016-12-24] MEDS: PANTOPRAZOLE 40 MG TABLET PO SCH ×2 (08:11→17:03)
[2016-12-24] MEDS: FAMOTIDINE 20 MG/2 ML VIAL IV SCH (08:11)
[2016-12-24] MEDS: LIDOCAINE 5% PATCH TOPICAL SCH (08:12)
[2016-12-24] MEDS: DILTIAZEM CD 180 MG CAP.ER.24H PO SCH (08:12)
[2016-12-24] MEDS: SODIUM CHLORIDE 0.9% 1,000 ML IV SCH ×2 (08:14→17:14)
[2016-12-24] MEDS: metroNIDAZOLE-NS PMX 500 MG in SALINE 1 100ML.BAG IVPB SCH (08:14)
[2016-12-24] MEDS: SYMBICORT 160-4.5 MCG INHALER INHALATION SCH ×2 (08:19→20:27)
[2016-12-24] MEDS: IPRATROPIUM-ALBUTEROL 3 ML NEB INHALATION SCH (08:20)
[2016-12-24] MEDS: ALBUTEROL NEBULIZED 2.5 MG/3 ML INHALATION SCH ×2 (08:26→20:28)
[2016-12-24 08:33] LABS: Glucose,Whole Blood 100 mg/dL (75-99)
--- NOTE | 2016-12-24 10:17 | P.PN ---
<JonhAngelika M - Last Filed: 12/24/16 10:12> Subjective 66-year-old female being seen on rounds this morning. Currently is sitting up in bed states that she has been up in a chair this morning tolerating a diet. Patient reports no nausea vomiting. Moderate amount of stool noted in the ostomy bag. White count this morning down to 7.3 hemoglobin 9.5 electrolytes within normal limits Dr. Herndon at the bedside to discuss with the patient the plan of care anticipate discharging tomorrow The wound VAC will be removed tomorrow patient will be seen next week in the office with Dr. Garcia Patient's postop on December 20 laparoscopic cholecystectomy, robotic-assisted laparoscopic lysis of adhesions, takedown of descending left colostomy, open lower anterior resection with mobilization of splinic fexure, open closure of a parastomal hernia placement of the descending colostomy, placement of right lower quadrant ELENI drain with placement of prevera wound VAC system Objective - Vital Signs Vital signs: Vital Signs Temp 97.7 F 12/24/16 07:48 Pulse 80 12/24/16 08:30 Resp 21 12/24/16 07:48 BP 118/73 12/24/16 07:48 Pulse Ox 93 L 12/24/16 07:48 Intake & Output 12/23/16 12/24/16 12/24/16 18:59 06:59 18:59 Intake Total 550 240 Output Total 60 1220 Balance -60 -670 240 Intake: Oral 550 240 Output: Drainage 60 20 Right Lower Abdomen 60 20 Urine 1200 Other: Voiding Method Toilet Toilet Toilet # Voids 1 1 - Exam Physical exam 66-year-old female sitting up in bed states that she just was up in a chair this morning states pain medication effective for pain control states tolerating a diet Lungs diminished at the bases otherwise adequate air movement Heart S1-S2 audible and regular Abdomen prevena wound VAC system in place ELENI drain right lower quadrant ostomy left lower quadrant moderate amount of stool in the ostomy bag surgical dressing dry abdominal binder in place Extremities trace pedal edema bilaterally - Labs CBC & Chem 7: 12/24/16 06:45 12/24/16 06:45 Labs: Abnormal Lab Results - Last 24 Hours (Table) 12/24/16 12/24/16 12/24/16 Range/Units 06:45 06:45 08:18 RBC 3.07 L (3.80-5.40) m/uL Hgb 9.5 L (11.4-16.0) gm/dL Hct 30.7 L (34.0-46.0) % Lymphocytes # 0.9 L (1.0-4.8) k/uL Chloride 112 H (98-107) mmol/L Carbon Dioxide 21 L (22-30) mmol/L Glucose 60 L (74-99) mg/dL POC Glucose (mg/dL) 100 H (75-99) mg/dL Calcium 7.5 L (8.4-10.2) mg/dL Phosphorus 2.0 L (2.5-4.5) mg/dL Assessment and Plan Plan: Impression History of perforated diverticulitis resulting initially in a descending colonoscopy Steroid dependent COPD Severe COPD with oxygen dependency Chronic debility with a history of multiple compression fractures of the thoracic and lumbar spine Chronic pain syndrome with chronic back pain Postop December 20 extensive lysis of adhesions, cholecystectomy, repair of peristomal hernia, low anterior resection with the formation of colostomy Paroxysmal atrial fibrillation current sinus rhythm Obesity BMI 33 Plan Continue postop surgical care Continue with recommendations per medicine service Resume home meds as appropriate Increase activity DVT and GI prophylaxis Respiratory treatments as ordered Continue Ceftin and Flagyl as ordered Anticipate discharge within 24 hours Further surgical recommendations pending The above impression and plan of care have been discussed and directed by signing physician. Angelika Borja nurse practitioner acting as scribe for signing physician. <Renae Herndon N - Last Filed: 12/24/16 10:20> Objective - Vital Signs Vital signs: Vital Signs Temp 97.7 F 12/24/16 07:48 Pulse 80 12/24/16 08:30 Resp 21 12/24/16 07:48 BP 118/73 12/24/16 07:48 Pulse Ox 93 L 12/24/16 07:48 Intake & Output 12/23/16 12/24/16 12/24/16 18:59 06:59 18:59 Intake Total 550 240 Output Total 60 1220 Balance -60 -670 240 Intake: Oral 550 240 Output: Drainage 60 20 Right Lower Abdomen 60 20 Urine 1200 Other: Voiding Method Toilet Toilet Toilet # Voids 1 1 - Labs CBC & Chem 7: 12/24/16 06:45 12/24/16 06:45 Labs: Abnormal Lab Results - Last 24 Hours (Table) 12/24/16 12/24/16 12/24/16 Range/Units 06:45 06:45 08:18 RBC 3.07 L (3.80-5.40) m/uL Hgb 9.5 L (11.4-16.0) gm/dL Hct 30.7 L (34.0-46.0) % Lymphocytes # 0.9 L (1.0-4.8) k/uL Chloride 112 H (98-107) mmol/L Carbon Dioxide 21 L (22-30) mmol/L Glucose 60 L (74-99) mg/dL POC Glucose (mg/dL) 100 H (75-99) mg/dL Calcium 7.5 L (8.4-10.2) mg/dL Phosphorus 2.0 L (2.5-4.5) mg/dL Assessment and Plan (1) Peritoneal adhesions Status: Acute (2) Status post partial colectomy Status: Acute (3) Status post laparoscopic cholecystectomy Status: Acute (4) Atrial fibrillation Status: Acute (5) Congestive heart failure Status: Acute (6) COPD, moderate Status: Acute (7) Current chronic use of systemic steroids Status: Acute (8) Perforation of sigmoid colon due to diverticulitis Status: Acute (9) Status post colostomy Status: Acute (10) Parastomal hernia Status: Acute (11) Chronic cholecystitis Status: Acute
[2016-12-24] MEDS: metroNIDAZOLE 500 MG TAB PO SCH ×2 (15:26→21:22)
--- NOTE | 2016-12-24 17:35 | P.PN ---
<Joann Palafox Carisa - Last Filed: 12/24/16 17:27> Progress Note - Text DATE OF SERVICE: 12/24/2016 PRESENTING COMPLAINT: Elective cholecystectomy and colostomy reversal HISTORY OF PRESENT ILLNESS: 66-year-old female history of ruptured diverticulum subsequent surgery and colostomy about 4 months ago, admitted for laparoscopic cholecystectomy and is now status post cholecystectomy robotic-assisted laparoscopic lysis of adhesions , takedown of colostomy, low anterior resection, sigmoidoscopy, parastomal hernia repair, descending colostomy, open replacement of descending colostomy.. INTERVAL HISTORY: 12/24/2016: Patient lying in bed appears comfortable, pain well-controlled wound VAC in place with scant amount of sanguinous drainage, abdomen tender, abdominal binder in place, diet advanced to regular diet for lunch, ostomy bag producing stool. Patient is ambulatory between the bed in the chair without assistance, requires standby for walks to the bathroom, tolerating her liquid diet able to eat about 70%. 12/23/2016 Patient seen on rounds today, sitting up in the bed, states she feels pretty good. Wound VAC in place draining serosanguineous drainage, pain well controlled, abdomen tender, binder in place, remains nothing by mouth, diet to be advanced by surgery. Patient's colostomy bag is producing stool. REVIEW OF SYSTEMS: Done for constitutional ,cardiovascular, GI, pulmonary, integument with relevant findings as above. CURRENT MEDICATIONS DuoNeb's, ceftezole and 2 g IV piggyback, diltiazem 180 mg by mouth daily, Toradol 15 mg IV push every 6 hours, metronidazole 500 mg in IV solution, PHYSICAL EXAM VITAL SIGNS: Temperature 97.7, pulse 83, respiratory rate 21, blood pressure 118/73, oxygen saturation 93% on room air. GENERAL APPEARANCE: Lying in bed, appears comfortable. EYES: Pupils equal. Conjunctiva normal. NECK: JVD not raised. Mass not palpable. RESPIRATORY: Respiratory effort normal. Lungs clear to auscultation. CARDIOVASCULAR: First and second sounds normal. No edema. ABDOMEN: Soft. Liver and spleen not palpable. Mild tenderness. No mass palpable , bowel sounds distant PSYCHIATRY: Alert and oriented x3. Mood and affect normal. INTEGUMENT: Midline abdominal incision covered with surgical occlusive dressing and wound VAC serosanguineous drainage noted. INVESTIGATIONS: White blood cell count 7.3, hemoglobin 9.5, chloride 112, BUN 12, creatinine 0.58, Accu-Cheks noted. ASSESSMENT: -Multiple chronic compression fracture including T7/T8/T10/T12/L2 and 6/and T8. 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 We'll likely discharge in the next 24 hours. Plan of care discussed with patient the bedside she is in agreement. We'll continue to follow closely. SYSTEM PLANNING ENGINEER statement: Patient was seen and examined by nurse practitioner Joann Palafox and all elements of the case discussed with attending Dr. Li <Geraldo Li - Last Filed: 12/24/16 20:50> Progress Note - Text Attending note. Date of service-12/24/2016 This patient was seen and examined by me . Discussed the patient with my nurse practitioner Ms. Palafox. Patient status post abdominal surgery. That has been advanced to soft bland.) Colostomy Bag is working well. Has been up to the bathroom. Overall much of cheerful. On examination: Abdomen-soft with minimal tender,, stool in the colostomy bag Investigations: White count 7.3, hemoglobin 9.5, potassium 3.7 Assessment and plan: New colostomy. Clinically doing better improving. Hopefully can be discharged next 24 hours.
--- NOTE | 2016-12-24 17:36 | P.PN ---
<Norma Rios M - Last Filed: 12/24/16 17:28> Subjective Principal diagnosis: A 66-year-old here patient underwent an attempted reversal of colostomy. This was not successful. The patient extensive adhesions. The patient underwent lysis of adhesions and the colostomy was also advised. The hernia was repaired and cholecystectomy was done. On 12/23/2016 and seeing this patient in follow-up H is doing well. She remains nothing by mouth and she was wondering his diet can be provided to her. Her bowel sounds are sluggish. Her colostomy site dysfunctional and there is gas and some liquidy material emanating in the colostomy bag. No abdominal distention. No nausea. No vomiting patient does not have an NG tube in place. No fever or chills. Hemodynamically stable on normal saline today to 100 mL an hour. Using incentive spirometer. She is also known to have bronchial asthma is currently inactive and stable. She has had history of chronic atrial fibrillation, coronary artery disease, congestion heart failure, chronic back pain with multiple compression fracture of the thoracic spine along with osteoporosis. Her condition is stable. On 12/24/2016 the patient is being seen in follow-up. She is tolerating regular diet, the colostomy is producing moderate amount of liquid material. No abdominal distention noted. Patient denies nausea or vomiting. Afebrile, hemodynamically stable. Denies any respiratory complaints. Patient is established with Dr. Gallardo for her history of asthma, she will follow with him as outpatient. Lung sounds are clear, no signs of respiratory distress noted. Patient denies shortness of breath, she is compliant with her incentive spirometer. Her condition remained stable, surgery anticipates to discharge her home in the next 24 hours. The wound VAC is going to be removed as well as the remaining ELENI drain on the left side. The right-sided ELENI drain was removed this morning. Objective - Vital Signs Vital signs: Vital Signs Temp 98.6 F 12/24/16 14:45 Pulse 80 12/24/16 15:34 Resp 16 12/24/16 14:45 BP 111/71 12/24/16 14:45 Pulse Ox 96 12/24/16 14:45 Intake & Output 12/23/16 12/24/16 12/24/16 18:59 06:59 18:59 Intake Total 550 240 Output Total 60 1220 320 Balance -60 -670 -80 Intake: Oral 550 240 Output: Drainage 60 20 20 Right Lower Abdomen 60 20 20 Urine 1200 Stool 300 Other: Voiding Method Toilet Toilet Toilet # Voids 1 1 - Exam Gen. appearance the patient is calm and comfortable. Not using it is muscle breathing and she is very comfortable breathing.Head exam was generally normal. There was no scleral icterus or corneal arcus. Mucous membranes were moist. Neck is short and supple and there is significant crowding of the posterior pharynx. There is no goiter or neck masses. Lungs: Diminished in lung bases bilaterally. No wheezes or rhonchi. Heart sounds are irregular, possible sinus stool significant murmurs could be appreciated. Abdomen is soft and nontender. The patient has an abdominal bounded. Surgical wound site is dry clean and intact. Colostomy site is functional and viable. No direct tenderness. No rebound tensile guarding.Examination of the extremities revealed easily palpable radial, femoral and pedal pulses. There was no cyanosis , clubbing or edema. Skeletal exam is within normal limits without any fractures. No joint deformities. Skin exam is within normal limits and the abdominal wound over the anterior abdominal wall is dry clean and intact. Neurologic exam the patient is alert and awake and there is no focal neurological deficit at this point. - Labs CBC & Chem 7: 12/24/16 06:45 12/24/16 06:45 Labs: Abnormal Lab Results - Last 24 Hours (Table) 12/24/16 12/24/16 12/24/16 Range/Units 06:45 06:45 08:18 RBC 3.07 L (3.80-5.40) m/uL Hgb 9.5 L (11.4-16.0) gm/dL Hct 30.7 L (34.0-46.0) % Lymphocytes # 0.9 L (1.0-4.8) k/uL Chloride 112 H (98-107) mmol/L Carbon Dioxide 21 L (22-30) mmol/L Glucose 60 L (74-99) mg/dL POC Glucose (mg/dL) 100 H (75-99) mg/dL Calcium 7.5 L (8.4-10.2) mg/dL Phosphorus 2.0 L (2.5-4.5) mg/dL Assessment and Plan Plan: Assessment 1 attempted colostomy reversal, patient is postop day #4. 2 previous history of perforated diverticulitis with sepsis and abscess requiring these were descending colostomy 3 advanced COPD, oxygen and steroid dependence 4 chronic pain involving the back 5 chronic atrial fibrillation 6 CHF 7 chronic cholecystitis status post cholecystectomy and the patient is postop day #4 8 obesity. 9 compression fracture of the thoracic spine Plan Patient is recovering well from surgery. Tolerating regular diet. Surgical wound site is dry clean and intact. Left ELENI drain is in place. The patient will be asked to advance her activity as tolerated. Continue incentive spirometer. Continue the bronchodilators. No signs of any respiratory compromise. We'll follow. Pain control is adequate for now. Heparin for DVT prophylaxis. I performed a history & physical examination of the patient and discussed their management with my nurse practitioner, Norma Rios. I reviewed the nurse practitioner's note and agree with the documented findings and plan of care. <Shreyas Tyler - Last Filed: 12/24/16 19:00> Objective - Vital Signs Vital signs: Vital Signs Temp 98.6 F 12/24/16 14:45 Pulse 80 12/24/16 15:34 Resp 16 12/24/16 14:45 BP 111/71 12/24/16 14:45 Pulse Ox 96 12/24/16 14:45 Intake & Output 12/23/16 12/24/16 12/24/16 18:59 06:59 18:59 Intake Total 550 240 Output Total 60 1220 335 Balance -60 -670 -95 Intake: Oral 550 240 Output: Drainage 60 20 35 Right Lower Abdomen 60 20 35 Urine 1200 Stool 300 Other: Voiding Method Toilet Toilet Toilet # Voids 1 1 - Labs CBC & Chem 7: 12/24/16 06:45 12/24/16 06:45 Labs: Abnormal Lab Results - Last 24 Hours (Table) 12/24/16 12/24/16 12/24/16 Range/Units 06:45 06:45 08:18 RBC 3.07 L (3.80-5.40) m/uL Hgb 9.5 L (11.4-16.0) gm/dL Hct 30.7 L (34.0-46.0) % Lymphocytes # 0.9 L (1.0-4.8) k/uL Chloride 112 H (98-107) mmol/L Carbon Dioxide 21 L (22-30) mmol/L Glucose 60 L (74-99) mg/dL POC Glucose (mg/dL) 100 H (75-99) mg/dL Calcium 7.5 L (8.4-10.2) mg/dL Phosphorus 2.0 L (2.5-4.5) mg/dL Assessment and Plan Plan: Is a joint evaluation that was done along with a nurse practitioner. I was present at the time of the evaluation. The patient was seen and evaluated. The patient is postop day #4 following Attempted colostomy reversal and cholecystectomy. She is recovering well. No active respiratory difficulties despite her advanced COPD. Continue routine postoperative pulmonary care. We' ll continue to follow.
[2016-12-24] MEDS: MONTELUKAST 10 MG TAB PO SCH (21:22)
[2016-12-24] MEDS: GABAPENTIN 100 MG CAP PO SCH (21:22)
[2016-12-24] MEDS: FAMOTIDINE 20 MG TAB PO SCH (21:23)
[2016-12-25] MEDS: HYDROcodone/APAP 7.5-325MG 1 EACH TAB PO PRN ×2 (02:11→10:02)
[2016-12-25] MEDS: SODIUM CHLORIDE 0.9% 1,000 ML IV SCH (05:17)
[2016-12-25 07:08] LABS: Anion Gap 5 mmol/L; Blood Urea Nitrogen 5 mg/dL (7-17); Calcium 7.8 mg/dL (8.4-10.2); Carbon Dioxide 25 mmol/L (22-30); Chloride 107 mmol/L (98-107); Glucose 74 mg/dL (74-99); Magnesium 1.9 mg/dL (1.6-2.3); Non-African American GFR(MDRD) >60 (>60 ml/min/1.73 sqM); Phosphorous 2.3 mg/dL (2.5-4.5); Potassium 3.4 mmol/L (3.5-5.1); Sodium 137 mmol/L (137-145)
[2016-12-25 07:10] LABS: Basophils % (A) 0 %; CH 30.9; CHCM 31.9; Eosinophils # (A) 0.3 k/uL (0-0.7); Eosinophils % (A) 4 %; HCT 29.7 % (34.0-46.0); HDW 2.67; HGB 9.8 gm/dL (11.4-16.0); Luc # (Auto) 0.07; Luc % (Auto) 1; Lymphocytes % (A) 14 %; MCH 32.2 pg (25.0-35.0); MCV 97.4 fL (80.0-100.0); Mean Platelet Volume 6.9; Monocytes # (A) 0.4 k/uL (0-1.0); Monocytes % (A) 6 %; Neutrophils # (A) 5.2 k/uL (1.3-7.7); Neutrophils % (A) 75 %; RBC 3.05 m/uL (3.80-5.40); RDW 14.4 % (11.5-15.5); WBC (Perox) 7.24
[2016-12-25] MEDS: ALBUTEROL NEBULIZED 2.5 MG/3 ML INHALATION SCH (08:40)
[2016-12-25] MEDS: SYMBICORT 160-4.5 MCG INHALER INHALATION SCH (08:40)
[2016-12-25] MEDS: PANTOPRAZOLE 40 MG TABLET PO SCH (09:44)
[2016-12-25] MEDS: APIXABAN 5 MG TAB PO SCH (09:44)
[2016-12-25] MEDS: CEFUROXIME 250 MG TAB PO SCH (09:45)
[2016-12-25] MEDS: DILTIAZEM CD 180 MG CAP.ER.24H PO SCH (09:46)
[2016-12-25] MEDS: FAMOTIDINE 20 MG TAB PO SCH (09:46)
[2016-12-25] MEDS: FLECAINIDE 50 MG TAB PO SCH (09:46)
[2016-12-25] MEDS: CYCLOBENZAPRINE 5 MG TAB PO SCH (09:46)
[2016-12-25] MEDS: LIDOCAINE 5% PATCH TOPICAL SCH (09:47)
[2016-12-25] MEDS: predniSONE 10 MG TAB PO SCH (09:48)
[2016-12-25] MEDS: metroNIDAZOLE 500 MG TAB PO SCH (09:48)
[2016-12-25] MEDS ORDERED: POTAS-SOD-PHOS 278-164-250 MG 1 EACH PACKET PO SCH (10:00)
[2016-12-25] MEDS: SODIUM PHOSPHATE 10 MMOL in SODIUM CHLORIDE 0.9% 250 ML IVPB SCH ×2 (10:17→10:39)
[2016-12-25] MEDS ORDERED: MAGNESIUM OXIDE 400 MG TAB PO SCH (11:00)
--- NOTE | 2016-12-25 11:03 | P.DS ---
<Angelika Borja - Last Filed: 12/25/16 10:31> Providers Date of admission: 12/20/16 10:19 Expected date of discharge: 12/25/16 Attending physician: Renae Herndon Consults: 12/20/16 20:55 Consult Physician Routine Consulting Provider: Geraldo Li Consult Reason/Comments: Medical management Do you want consulting provider notified?: Yes 12/20/16 21:20 Consult Physician Routine Consulting Provider: Chencho Gallardo Consult Reason/Comments: vent, icu management Do you want consulting provider notified?: Yes Primary care physician: [facility] Course: 66-year-old female who presented on an elective basis to undergo a cholecystectomy and a reversal of an coloostomy which was not successful patient does have a history of biliary dyskinesis including ruptured diverticulitis. Patient more than 3 months out was seen in the outpatient setting seeking reversal including a cholecystectomy. Patient has been 4 months in a rehabilitation center for chronic lower back pain including multiple fractures Throughout the hospitalization the patient was followed by pulmonary and internal medicine service recommendations appreciated December 20 patient did undergo laparoscopic cholecystectomy, robotic-assisted laparoscopic lysis of adhesions, takedown of descending left colostomy, open lower anterior resection with mobilization of splinic fexure, open closure of a parastomal hernia placement of the descending colostomy, placement of right lower quadrant ELENI drain with placement of prevera wound VAC system On the day of discharge patient was felt to be hemodynamically stable and appropriate to proceed with discharge to home with home care set up patient was seen by the ostomy nurse this admission . Additionally the patient's ELENI drain and prevera wound VAC system was removed by the surgeon Dr. 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 Angelika Borja nurse practitioner acting as scribe for signing physician. Plan - Discharge Summary New Discharge Prescriptions: Continue Albuterol Sulfate [Proventil Hfa] 2 puff INHALATION RT-Q6H PRN PRN Reason: Shortness Of Breath Omeprazole 20 mg PO BID Budesonide/Formoterol Fumarate [Symbicort 160-4.5 Mcg Inhaler] 2 puff INHALATION RT-BID Albuterol Nebulized [Ventolin Nebulized] 2.5 mg INHALATION RT-BID Montelukast [Singulair] 10 mg PO HS traMADol HCL [Ultram] 50 mg PO Q6H PRN PRN Reason: Pain predniSONE 10 mg PO DAILY Apixaban [Eliquis] 5 mg PO BID #60 tab Cyclobenzaprine [Flexeril] 5 mg PO BID #60 tab Flecainide [Tambocor] 50 mg PO Q12HR #60 tab Gabapentin [Neurontin] 200 mg PO HS #60 cap Lidocaine 5% Patch [Lidoderm 5% Patch] 1 patch TOPICAL DAILY #30 patch Diltiazem HCl [Cartia Xt] 180 mg PO DAILY #30 cap HYDROcodone/APAP 7.5-325MG [[place] 7.5-325] 1 tab PO Q6H PRN #30 tab PRN Reason: Pain Discontinued Acetaminophen Tab [Tylenol] 500 mg PO Q6H PRN PRN Reason: Pain No Action Cefuroxime Axetil [Ceftin] 500 mg PO BID #14 tab Discharge Medication List Albuterol Nebulized [Ventolin Nebulized] 2.5 mg INHALATION RT-BID 07/22/16 [ History] Albuterol Sulfate [Proventil Hfa] 2 puff INHALATION RT-Q6H PRN 07/22/16 [History ] Budesonide/Formoterol Fumarate [Symbicort 160-4.5 Mcg Inhaler] 2 puff INHALATION RT-BID 07/22/16 [History] Montelukast [Singulair] 10 mg PO HS 07/22/16 [History] Omeprazole 20 mg PO BID 07/22/16 [History] traMADol HCL [Ultram] 50 mg PO Q6H PRN 09/27/16 [History] predniSONE 10 mg PO DAILY 10/21/16 [History] Apixaban [Eliquis] 5 mg PO BID #60 tab 10/25/16 [Rx] Cefuroxime Axetil [Ceftin] 500 mg PO BID #14 tab 10/25/16 [Rx] Cyclobenzaprine [Flexeril] 5 mg PO BID #60 tab 10/25/16 [Rx] Diltiazem HCl [Cartia Xt] 180 mg PO DAILY #30 cap 10/25/16 [Rx] Flecainide [Tambocor] 50 mg PO Q12HR #60 tab 10/25/16 [Rx] Gabapentin [Neurontin] 200 mg PO HS #60 cap 10/25/16 [Rx] HYDROcodone/APAP 7.5-325MG [[place] 7.5-325] 1 tab PO Q6H PRN #30 tab 10/25/16 [Rx ] Lidocaine 5% Patch [Lidoderm 5% Patch] 1 patch TOPICAL DAILY #30 patch 10/25/16 [Rx] Follow up Appointment(s)/Referral(s): Renae Herndon MD [STAFF PHYSICIAN] - 01/02/17 1:45 pm [facility], [NON-STAFF] - Patient Instructions/Handouts: Colostomy Care (DC) Activity/Diet/Wound Care/Special Instructions: Colostomy Care Instructions: Last appliance change: 12/24/2016 Home supplies: [employer] one piece cut to fit #[id number] (Three for home) Skin prep pads (10 pads for home) Ostomy powder as needed (currently not used in hospital to peristomal skin area ) (One sent with patient for home) Patient will receive [employer] disposable samples from the [employer] as requested. Home Health to follow up with Mrs Boyle at home for any additional adjustments to current ostomy care and supplies needed Discharge Disposition: HOME SELF-CARE <Renae Herndon - Last Filed: 12/25/16 11:24> - Discharge Diagnosis(es) (1) Peritoneal adhesions Current Visit: Yes Status: Acute (2) Status post partial colectomy Current Visit: Yes Status: Acute (3) Status post laparoscopic cholecystectomy Current Visit: Yes Status: Acute (4) Atrial fibrillation Current Visit: Yes Status: Acute (5) Congestive heart failure Current Visit: Yes Status: Acute (6) COPD, moderate Current Visit: No Status: Acute (7) Current chronic use of systemic steroids Current Visit: No Status: Acute (8) Perforation of sigmoid colon due to diverticulitis Current Visit: No Status: Acute (9) Status post colostomy Current Visit: Yes Status: Acute (10) Parastomal hernia Current Visit: Yes Status: Acute (11) Chronic cholecystitis Current Visit: Yes Status: Acute
[2016-12-25] MEDS ORDERED: MAGNESIUM OXIDE 400 MG TAB PO ONE (11:15)
[2016-12-25] MEDS: POTASSIUM CHLORIDE ER 20 MEQ TAB.ER PO SCH (11:33)
[2016-12-25 11:50] VITALS: BP 113/64; PULSE 89; RESP 15; TEMP 98.6
--- NOTE | 2016-12-25 14:08 | PN ---
PROGRESS NOTE DATE OF SERVICE: 12/25/2016 PRESENT COMPLAINT: Abdominal surgery. INTERVAL HISTORY: Patient is status post abdominal surgery, tolerating a soft, bland diet. Colostomy bag is working well. Has been up and about to the bathroom. Patient's pain readily controlled. No chest pain or short of breath. REVIEW OF SYSTEMS: Done for constitutional, cardiovascular, GI, pulmonary; relevant finding as above. CURRENT MEDICATIONS: Reviewed that include p.o. Ceftin and p.o. Flagyl. PHYSICAL EXAMINATION: Temperature 97.6, pulse 79, respirations 25, blood pressure 115/56, pulse ox 95% on room air. GENERAL APPEARANCE: Sitting in a chair, comfortable. EYES: Pupils equal, conjunctivae normal. NECK: JVD not raised, mass not palpable. RESPIRATORY: Effort normal. Lungs are clear. CARDIOVASCULAR: First and second sounds normal, no edema. ABDOMEN: Soft, patient has got a wound VAC in place and a drain in place. Mild tenderness. PSYCH: Alert and oriented x3. Mood and affect was normal. INVESTIGATIONS: White count 7, hemoglobin 9.8, potassium 3.4. ASSESSMENT: 1. Status post laparoscopic cholecystectomy, adhesional lysis and low anterior resection. 2. Peristomal hernia repair and open placement of descending colostomy. 3. Persistent atrial fibrillation. 4. Sigmoid diverticulosis. 5. Gastroesophageal reflux disease. 6. Moderately advanced chronic obstructive pulmonary disease with oxygen-steroid dependent. 7. Obesity, body mass index of 33.3. 8. Chronic urinary stress incontinence. 9. Chronic insomnia from medical reason. 10.Chronic diverticulosis. 11.Multiple chronic compression fractures including T7, T8, T10, T12, L2, [QAMARKER]. Causing chronic pain. PLAN: The patient is stable medically to be discharged. Spoke to Angelika from Surgical Team, antibiotics as per Dr. Herndon. Otherwise, patient doing good. Patient should follow with her family doctor upon discharge. Care was discussed. Questions were answered. MMODL / IJN: [id number] /
--- NOTE | 2016-12-25 14:13 | P.PN ---
Progress Note - Text Her PREVENA wound wac was removed. ELENI drain is still sanguinous. Will remove in the office.
--- NOTE | 2016-12-26 15:41 | CDI ---
In responding to this query, please exercise your independent professional judgment. The [facility] Coding Staff and Clinical Documentation Specialists appreciate your assistance in clarifying documentation, maintaining compliance with coding guidelines, accurately documenting patients condition and capturing severity of illness. The fact that a question is asked does not imply that any particular answer is desired or expected. Communication forms are a method of clarifying documentation and are not made part of the Legal Health Record. Thank you in advance for your clarification. Last Revision, May 2016 Grace Swain [address] [place] [address] Documentation Clarification Form Date: 12/26/2016 3:29:00 PM From: Mariella Be RN, CCDS Admit Date: 12/20/2016 10:19:00 AM Patient Name: Angelique Boyle Visit Number: [id number] Dr. Renae Herndon Patients Admitting Diagnosis:" History of perforated diverticulitis with sepsis and abscess resulting in descending colostomy....Attention to descending colostomy." Post-Operative Diagnosis: same as above Procedure performed:. Laparoscopic cholecystectomy. 2. Robotic-assisted laparoscopic lysis of adhesions over 1 hour. 3. Laparoscopic takedown of descending left colostomy using 29 mm ILS 4. Attempted laparoscopic reversal of descending colostomy with closure of colostomy. 5. Open lower anterior resection with mobilization of splenic flexure. 6. Intraoperative sigmoidoscopy. 7. Open peristomal hernia repair, descending colostomy. 8. Open placement of descending colostomy. 9. Placement of right lower quadrant round #19 ELENI drain. 10. Peritoneal lavage 3 L normal saline. 11. Placement of PREVENA wound VAC system History:History of moderate to severe chronic obstructive pulmonary disease, oxygen- dependent. 3. History of steroid-dependent chronic obstructive pulmonary disease. 4. History of chronic back pain. 5. History of chronic pain syndrome. 6. Hypertensive heart disease. 7. Obesity. 8. Gastroesophageal reflux disease. 9. Osteoarthritis of the lower back. 10.Bronchial asthma. 11.History of compression fracture of T12 and L2. 12.Coronary artery disease. 13.History of congestive heart failure. 14.Personal history of paroxysmal atrial fibrillation. 15. Symptomatic chronic cholecystitis. 16. Attention to descending colostomy. 17. Right upper quadrant abdominal pain. istory/Risk Factors: Clinical Indicators: 12/20 Op Note: " Once the stapler was fired for 1 minute, the stapler was removed and the connection was carefully reviewed with absence of mundo. The instrument had cut through and through without firing any mundo. As a result, the anastomosis had to be revised." Treatment: 12/20 OP Note:"As a result, the anastomosis had to be revised. I then rescrubbed and went to the bedside of the patient, whereby the fascial defect of the ostomy was oversewn using 0 Prolene. This was to facilitate any loss of pneumoperitoneum." Attention was now brought to the open portion of the procedure for a low anterior resection. Consults: Surgery In order to accurately reflect this patients severity of illness, please clarify if the post-operative diagnosis is: An expected post-procedural or post-surgical condition Integral to the procedure An unexpected post-procedural or post-surgical condition, related to surgical care Other, please specify Unable to determine Please document in your progress notes and discharge summary in order to capture severity of illness and risk of mortality. Include clinical findings that support your diagnosis. FYI: Press F11 to launch patient chart Place X here if this finding has no clinical significance, is not applicable or if you are not able to provide any additional documentation. PLEASE NOTE - Inherent to the procedure Katrina, 12/26/16 ESTELA
--- NOTE | 2016-12-31 13:16 | CDI ---
In responding to this query, please exercise your independent professional judgment. The [facility] Coding Staff and Clinical Documentation Specialists appreciate your assistance in clarifying documentation, maintaining compliance with coding guidelines, accurately documenting patients condition and capturing severity of illness. The fact that a question is asked does not imply that any particular answer is desired or expected. Communication forms are a method of clarifying documentation and are not made part of the Legal Health Record. Thank you in advance for your clarification. Last Revision, May 2016 Grace Swain [address] [place] [address] Documentation Clarification Form 2nd Request Date: 12/26/2016 3:29:00 PM From: Mariella Be RN, CCDS Admit Date: 12/20/2016 10:19:00 AM Patient Name: Angelique Boyle Visit Number: [id number] Dr. Renae Herndon You documented on the previous Query inherent to procedure this information needs to be documented in an addendum to the Operative note or progress note as the query is not part of the legal medical record. Thank You Patients admitting Diagnosis:" History of perforated diverticulitis with sepsis and abscess resulting in descending colostomy....Attention to descending colostomy." Post-Operative Diagnosis: same as above Procedure performed: Laparoscopic cholecystectomy. 2. Robotic-assisted laparoscopic lysis of adhesions over 1 hour. 3. Laparoscopic takedown of descending left colostomy using 29 mm ILS 4. Attempted laparoscopic reversal of descending colostomy with closure of colostomy. 5. Open lower anterior resection with mobilization of splenic flexure. 6. Intraoperative sigmoidoscopy. 7. Open peristomal hernia repair, descending colostomy. 8. Open placement of descending colostomy. 9. Placement of right lower quadrant round #19 ELENI drain. 10. Peritoneal lavage 3 L normal saline. 11. Placement of PREVENA wound VAC system History: History of moderate to severe chronic obstructive pulmonary disease, oxygen- dependent. 3. History of steroid-dependent chronic obstructive pulmonary disease. 4. History of chronic back pain. 5. History of chronic pain syndrome. 6. Hypertensive heart disease. 7. Obesity. 8. Gastroesophageal reflux disease. 9. Osteoarthritis of the lower back. 10. Bronchial asthma. 11. History of compression fracture of T12 and L2. 12. Coronary artery disease. 13. History of congestive heart failure. 14. Personal history of paroxysmal atrial fibrillation. 15. Symptomatic chronic cholecystitis. 16. Attention to descending colostomy. 17. Right upper quadrant abdominal pain. Clinical Indicators: 12/20 Op Note: Once the stapler was fired for 1 minute, the stapler was removed and the connection was carefully reviewed with absence of mundo. The instrument had cut through and through without firing any mundo. As a result, the anastomosis had to be revised." Treatment: 12/20 OP Note:"As a result, the anastomosis had to be revised. I then rescrubbed and went to the bedside of the patient, whereby the fascial defect of the ostomy was oversewn using 0 Prolene. This was to facilitate any loss of pneumoperitoneum." Attention was now brought to the open portion of the procedure for a low anterior resection. Consults: Surgery In order to accurately reflect this patients severity of illness, please clarify if the post-operative diagnosis is: An expected post-procedural or post-surgical condition Integral to the procedure Inherent to the procedure An unexpected post-procedural or post-surgical condition, related to surgical care Other, please specify Unable to determine Please document in your progress notes and discharge summary in order to capture severity of illness and risk of mortality. Include clinical findings that support your diagnosis. FYI: Press F11 to launch patient chart Place X here if this finding has no clinical significance, is not applicable or if you are not able to provide any additional documentation. ESTELA
--- NOTE | 2017-02-06 12:00 | CDI ---
In responding to this query, please exercise your independent professional judgment. The [facility] Coding Staff and Clinical Documentation Specialists appreciate your assistance in clarifying documentation, maintaining compliance with coding guidelines, accurately documenting patients condition and capturing severity of illness. The fact that a question is asked does not imply that any particular answer is desired or expected. Communication forms are a method of clarifying documentation and are not made part of the Legal Health Record. Thank you in advance for your clarification. Last Revision, May 2016 Grace Swain [address] [place] [address] Documentation Clarification Form Date: 12/26/2016 3:29:00 PM From: Mariella Be Admit Date: 12/20/2016 10:19:00 AM Patient Name: Angelique Boyle Visit Number: [id number] Dr. Renae Herndon Please Document Query response in a document such as addendum to the OP note, as query form is not part of the legal medical record. Patients Admitting Diagnosis:" History of perforated diverticulitis with sepsis and abscess resulting in descending colostomy....Attention to descending colostomy." Post-Operative Diagnosis: same as above Procedure performed:. Laparoscopic cholecystectomy. 2. Robotic-assisted laparoscopic lysis of adhesions over 1 hour. 3. Laparoscopic takedown of descending left colostomy using 29 mm ILS 4. Attempted laparoscopic reversal of descending colostomy with closure of colostomy. 5. Open lower anterior resection with mobilization of splenic flexure. 6. Intraoperative sigmoidoscopy. 7. Open peristomal hernia repair, descending colostomy. 8. Open placement of descending colostomy. 9. Placement of right lower quadrant round #19 ELENI drain. 10. Peritoneal lavage 3 L normal saline. 11. Placement of PREVENA wound VAC system History:History of moderate to severe chronic obstructive pulmonary disease, oxygen- dependent. 3. History of steroid-dependent chronic obstructive pulmonary disease. 4. History of chronic back pain. 5. History of chronic pain syndrome. 6. Hypertensive heart disease. 7. Obesity. 8. Gastroesophageal reflux disease. 9. Osteoarthritis of the lower back. 10.Bronchial asthma. 11.History of compression fracture of T12 and L2. 12.Coronary artery disease. 13.History of congestive heart failure. 14.Personal history of paroxysmal atrial fibrillation. 15. Symptomatic chronic cholecystitis. 16. Attention to descending colostomy. 17. Right upper quadrant abdominal pain. istory/Risk Factors: Clinical Indicators: 12/20 Op Note: " Once the stapler was fired for 1 minute, the stapler was removed and the connection was carefully reviewed with absence of mundo. The instrument had cut through and through without firing any mundo. As a result, the anastomosis had to be revised." Treatment: 12/20 OP Note:"As a result, the anastomosis had to be revised. I then rescrubbed and went to the bedside of the patient, whereby the fascial defect of the ostomy was oversewn using 0 Prolene. This was to facilitate any loss of pneumoperitoneum." Attention was now brought to the open portion of the procedure for a low anterior resection. Consults: Surgery In order to accurately reflect this patients severity of illness, please clarify if the post-operative diagnosis is: An expected post-procedural or post-surgical condition Integral to the procedure Inherent to the procedure An unexpected post-procedural or post-surgical condition, related to surgical care Other, please specify Unable to determine Please document in your progress notes and discharge summary in order to capture severity of illness and risk of mortality. Include clinical findings that support your diagnosis. FYI: Press F11 to launch patient chart _X____ Place X here if this finding has no clinical significance, is not applicable or if you are not able to provide any additional documentation. ESTELA
== END 2016-12-25 15:25 | disposition home health service (06) | DRG 330 ==
LOC: 2ORWHC 10:19 → 6ICU 20:02 → 3SUR 12-22 13:21
PROVIDERS: ADMIT Surgery Plastic and Reconstructive Surgery; ATTEND Surgery Plastic and Reconstructive Surgery
PROC: 0DNW4ZZ Release Peritoneum, Percutaneous Endoscopic Approach (ICD-10-PCS; 2016-12-20)
PROC: 0WQF0ZZ Repair Abdominal Wall, Open Approach (ICD-10-PCS; 2016-12-20)
PROC: 0FT44ZZ Resection of Gallbladder, Percutaneous Endoscopic Approach (ICD-10-PCS; 2016-12-20)
PROC: 0DNV0ZZ Release Mesentery, Open Approach (ICD-10-PCS; 2016-12-20)
PROC: 0DN80ZZ Release Small Intestine, Open Approach (ICD-10-PCS; 2016-12-20)
PROC: 0UN50ZZ Release Right Fallopian Tube, Open Approach (ICD-10-PCS; 2016-12-20)
PROC: 8E0W4CZ Robotic Assisted Procedure of Trunk Region, Percutaneous Endoscopic Approach (ICD-10-PCS; 2016-12-20)
PROC: 0DJD8ZZ Inspection of Lower Intestinal Tract, Via Natural or Artificial Opening Endoscopic (ICD-10-PCS; 2016-12-20)
PROC: 0D9670Z Drainage of Stomach with Drainage Device, Via Natural or Artificial Opening (ICD-10-PCS; 2016-12-20)
PROC: 0DQG4ZZ Repair Left Large Intestine, Percutaneous Endoscopic Approach (ICD-10-PCS; principal; 2016-12-20 12:15)
PROC: 0D1M0Z4 Bypass Descending Colon to Cutaneous, Open Approach (ICD-10-PCS; 2016-12-20 12:15)
DX: Z43.3 Encounter for attention to colostomy (principal); I48.1 Persistent atrial fibrillation; K56.5 Intestinal adhesions [bands] with obstruction (postinfection); I11.0 Hypertensive heart disease with heart failure; F11.20 Opioid dependence, uncomplicated; I50.9 Heart failure, unspecified; K57.20 Diverticulitis of large intestine with perforation and abscess without bleeding; N39.0 Urinary tract infection, site not specified; J98.11 Atelectasis; Z99.81 Dependence on supplemental oxygen; E66.01 Morbid (severe) obesity due to excess calories; K81.1 Chronic cholecystitis; J44.9 Chronic obstructive pulmonary disease, unspecified; K43.5 Parastomal hernia without obstruction or gangrene; K44.9 Diaphragmatic hernia without obstruction or gangrene; I25.10 Atherosclerotic heart disease of native coronary artery without angina pectoris; K21.0 Gastro-esophageal reflux disease with esophagitis; F51.04 Psychophysiologic insomnia; G89.4 Chronic pain syndrome; M06.9 Rheumatoid arthritis, unspecified; M47.9 Spondylosis, unspecified; T38.0X5A Adverse effect of glucocorticoids and synthetic analogues, initial encounter; N39.3 Stress incontinence (female) (male); N73.6 Female pelvic peritoneal adhesions (postinfective); M81.0 Age-related osteoporosis without current pathological fracture; Z79.01 Long term (current) use of anticoagulants; Z79.51 Long term (current) use of inhaled steroids; Z79.52 Long term (current) use of systemic steroids; Z79.899 Other long term (current) drug therapy; Z98.42 Cataract extraction status, left eye; Z85.828 Personal history of other malignant neoplasm of skin; Z87.442 Personal history of urinary calculi; Z87.311 Personal history of (healed) other pathological fracture; Z88.8 Allergy status to other drugs, medicaments and biological substances
CPT/HCPCS: 36600; 71010; 80048; 81001; 82805; 83735; 84100; 85025; 85027; 85610; 85730; 86850; 86900; 86901; 88304; 94002; 94640; 94760

== ENCOUNTER 2018-01-07 17:28 | Emergency (ER) | payer MEDICARE ==
[2018-01-07 17:41] VITALS: RESP 18; TEMP 97.8
[2018-01-07] MEDS ORDERED: ONDANSETRON 4 MG/2 ML VIAL IVP STA (17:45)
--- NOTE | 2018-01-07 17:47 | ED ---
General Adult HPI - General Chief complaint: Abdominal Pain Stated complaint: abd pain Time Seen by Provider: 01/07/18 17:35 Source: patient, RN notes reviewed Mode of arrival: EMS Limitations: no limitations - History of Present Illness Initial comments: This is a 67-year-old female who comes into the emergency department with an ileostomy. Patient comes in complaining that ever since she ate earlier in the day she has been nauseated and vomiting and she has had no output from the ileostomy. Patient states recently she was in for the same reason and was told that she had a hernia and she had have surgery to have the ostomy reversed. Patient denies any fever chills. Patient denies any abdominal pain except for around the ostomy. Patient denies any back pain. Patient denies any dysuria hematuria urinary frequency. Patient denies any chest pain or difficulty breathing. - Related Data Home Medications Medication Instructions Recorded Confirmed Albuterol Nebulized [Ventolin 2.5 mg INHALATION RT-TID 07/22/16 01/07/18 Nebulized] Albuterol Sulfate [Proventil Hfa] 2 puff INHALATION RT-Q6H PRN 07/22/16 01/07/18 Budesonide/Formoterol Fumarate 2 puff INHALATION RT-BID 07/22/16 01/07/18 [Symbicort 160-4.5 Mcg Inhaler] Montelukast [Singulair] 10 mg PO HS 07/22/16 01/07/18 predniSONE 10 mg PO DAILY 10/21/16 01/07/18 Ranitidine HCl [Zantac] 75 mg PO BID 12/31/17 01/07/18 Previous Rx's Medication Instructions Recorded Cyclobenzaprine [Flexeril] 5 mg PO BID #60 tab 10/25/16 Diltiazem HCl [Cartia Xt] 180 mg PO DAILY #30 cap 10/25/16 Flecainide [Tambocor] 50 mg PO Q12HR #60 tab 10/25/16 Gabapentin [Neurontin] 200 mg PO HS #60 cap 10/25/16 HYDROcodone/APAP 7.5-325MG [[place] 1 tab PO Q6H PRN #30 tab 10/25/16 7.5-325] Allergies Allergy/AdvReac Type Severity Reaction Status Date / Time furosemide [From Lasix] Allergy Rash/Hives Verified 01/07/18 17:45 Review of Systems ROS Statement: Those systems with pertinent positive or pertinent negative responses have been documented in the HPI. ROS Other: All systems not noted in ROS Statement are negative. Past Medical History Past Medical History: Atrial Fibrillation, Asthma, Coronary Artery Disease (CAD) , Cancer, Heart Failure, GERD/Reflux Additional Past Medical History / Comment(s): Bronchial asthma, compression fracture of the T-spine, osteoporosis, skin cancer, history of sepsis of urinary source, sigmoid diverticulosis, compression fracture of the L2 spine, compression fracture of the T12 spine, compression fracture of the T7 spine,CHF , KIDNEY STONE History of Any Multi-Drug Resistant Organisms: None Reported Past Surgical History: Appendectomy, Bowel Resection, Tubal Ligation Additional Past Surgical History / Comment(s): CATARACT LEFT EYE WITH REPAIR OF MACULAR HOLE. Colonoscopy, 2014. bowel resection with colostomy, CYSTOSCOPY W/ RT RETROGRADE PYELOURETEROGRAM 10/21 Past Anesthesia/Blood Transfusion Reactions: No Reported Reaction Past Psychological History: No Psychological Hx Reported Past Drug Use History: None Reported - Past Family History Mother Family Medical History: Cancer Additional Family Medical History / Comment(s): COLON CANCER in Mother General Exam - General Exam Comments Initial Comments: GENERAL: Patient is well-developed and well-nourished. Patient is nontoxic and well- hydrated and is in mild distress. ENT: Neck is soft and supple. No significant lymphadenopathy is noted. Oropharynx is clear. Moist mucous membranes. Neck has full range of motion without eliciting any pain. EYES: The sclera were anicteric and conjunctiva were pink and moist. Extraocular movements were intact and pupils were equal round and reactive to light. Eyelids were unremarkable. PULMONARY: Unlabored respirations. Good breath sounds bilaterally. No audible rales rhonchi or wheezing was noted. CARDIOVASCULAR: There is a regular rate and rhythm without any murmurs gallops or rubs. ABDOMEN: Patient has some bulging and tenderness around the ileostomy. SKIN: Skin is clear with no lesions or rashes and otherwise unremarkable. NEUROLOGIC: Patient is alert and oriented x3. Cranial nerves II through XII are grossly intact. Motor and sensory are also intact. Normal speech, volume and content. Symmetrical smile. MUSCULOSKELETAL: Normal extremities with adequate strength and full range of motion. LYMPHATICS: No significant lymphadenopathy is noted PSYCHIATRIC: Normal psychiatric evaluation. Limitations: no limitations Course Vital Signs 10/03/18 10/03/18 10/03/18 17:35 18:51 19:37 Temperature 97.8 F Pulse Rate 96 93 98 Respiratory 18 18 18 Rate Blood Pressure 151/83 137/97 148/73 O2 Sat by Pulse 100 95 98 Oximetry Medical Decision Making - Medical Decision Making Dr. Herndon came to the emergency department to evaluate the patient and determined the patient was okay to go home if she can tolerate water for 30 minutes and the patient did so and so the patient was discharged to follow-up as an outpatient. Dr. Garcia's instructions - Lab Data Result diagrams: 01/07/18 18:11 01/07/18 18:11 Lab Results 01/07/18 01/07/18 Range/Units 18:11 18:11 WBC 9.6 (3.8-10.6) k/uL RBC 4.33 (3.80-5.40) m/uL Hgb 12.9 (11.4-16.0) gm/dL Hct 42.1 (34.0-46.0) % MCV 97.3 (80.0-100.0) fL MCH 29.8 (25.0-35.0) pg MCHC 30.6 L (31.0-37.0) g/dL RDW 15.3 (11.5-15.5) % Plt Count 216 (150-450) k/uL Neutrophils % 76 % Lymphocytes % 14 % Monocytes % 6 % Eosinophils % 2 % Basophils % 0 % Neutrophils # 7.3 (1.3-7.7) k/uL Lymphocytes # 1.3 (1.0-4.8) k/uL Monocytes # 0.6 (0-1.0) k/uL Eosinophils # 0.2 (0-0.7) k/uL Basophils # 0.0 (0-0.2) k/uL Hypochromasia Slight Sodium 141 (137-145) mmol/L Potassium 4.2 (3.5-5.1) mmol/L Chloride 107 (98-107) mmol/L Carbon Dioxide 27 (22-30) mmol/L Anion Gap 7 mmol/L BUN 18 H (7-17) mg/dL Creatinine 0.98 (0.52-1.04) mg/dL Est GFR (CKD-EPI)AfAm 69 (>60 ml/min/1.73 sqM) Est GFR (CKD-EPI)NonAf 60 (>60 ml/min/1.73 sqM) Glucose 86 (74-99) mg/dL Calcium 9.1 (8.4-10.2) mg/dL Total Bilirubin 0.4 (0.2-1.3) mg/dL AST 28 (14-36) U/L ALT 34 (9-52) U/L Alkaline Phosphatase 103 (38-126) U/L Total Protein 6.4 (6.3-8.2) g/dL Albumin 3.7 (3.5-5.0) g/dL Amylase 56 (30-110) U/L Lipase 79 (23-300) U/L Disposition Clinical Impression: Complication of ostomy Disposition: HOME SELF-CARE Condition: Good Instructions: Abdominal Pain (ED) Is patient prescribed a controlled substance at d/c from ED?: No Referrals: Renae Herndon MD [Primary Care Provider] - 1-2 days Time of Disposition: 20:01
--- NOTE | 2018-01-07 18:28 | XR ---
EXAMINATION TYPE: XR KUB DATE OF EXAM: 01/07/2018 COMPARISON: 12/31/2017 HISTORY: Abdominal pain TECHNIQUE: Single view FINDINGS: There is a 1.5 cm calcification over the right kidney. There is no sign of intestinal obstr uction or pneumoperitoneum. Fecal pattern is normal. Lung bases appear clear of consolidation. IMPRESSION: Large right renal calculus. Nonacute abdomen. No adverse change compared to old exam.
[2018-01-07 18:32] LABS: Basophils % (A) 0 %; Eosinophils # (A) 0.2 k/uL (0-0.7); Eosinophils % (A) 2 %; HCT 42.1 % (34.0-46.0); HGB 12.9 gm/dL (11.4-16.0); Hypochromasia Slight; Lymphocytes # (A) 1.3 k/uL (1.0-4.8); Lymphocytes % (A) 14 %; MCH 29.8 pg (25.0-35.0); MCHC 30.6 g/dL (31.0-37.0); MCV 97.3 fL (80.0-100.0); Mean Platelet Volume 6.7; Monocytes # (A) 0.6 k/uL (0-1.0); Monocytes % (A) 6 %; Neutrophils # (A) 7.3 k/uL (1.3-7.7); Neutrophils % (A) 76 %; Platelet Count 216 k/uL (150-450); RBC 4.33 m/uL (3.80-5.40); RDW 15.3 % (11.5-15.5); WBC 9.6 k/uL (3.8-10.6)
[2018-01-07 18:42] LABS: Albumin 3.7 g/dL (3.5-5.0); Calcium 9.1 mg/dL (8.4-10.2); Potassium 4.2 mmol/L (3.5-5.1); Total Bilirubin 0.4 mg/dL (0.2-1.3); Total Protein 6.4 g/dL (6.3-8.2)
[2018-01-07 20:21] VITALS: BP 148/68; PULSE 100
--- NOTE | 2018-01-07 20:43 | P.GSCN ---
History of Present Illness Consult date: 01/07/18 Requesting physician: Duy Valdivia History of present illness: CHIEF COMPLAINT: Abdominal pain HISTORY OF PRESENT ILLNESS: The patient is a 67-year-old female seen in the office yesterday for history of a parastomal hernia. She reported doing fairly well in terms of tolerating liquid diet. She reported earlier today that she had sandwich which was not part of her dietary schedule and within 30 minutes she had acute onset abdominal pain including nausea and vomiting. She reported increased swelling of the abdomen and was taken to the emergency room by EMS. Since being in the ER, her abdominal pain has improved. PAST MEDICAL HISTORY: See list. PAST SURGICAL HISTORY: See list. MEDICATIONS: See list. ALLERGIES: See list. SOCIAL HISTORY: No illicit drug use FAMILY HISTORY: No reports of Crohn's disease or inflammatory bowel disease REVIEW OF ORGAN SYSTEMS: CONSTITUTIONAL: No fevers or chills HEENT: No troubles with vision or hearing. No reports of dysphagia. ENDOCRINE: History of chronic steroid exposure. Adrenal insufficiency. CARDIOVASCULAR: No heart attack. No chest pain. RESPIRATORY: History of COPD. GASTROINTESTINAL: Diverticulitis with perforation and colostomy. History of previous bowel obstruction. NEURO: No reports of stroke or seizure disorders. PSYCH: No depression or suicidal ideation HEMATOLOGIC: Has easy bruising and bleeding. LYMPHATIC: The patient denies any lumps and bumps around the neck. GENITOURINARY: History of multiple kidney stones. MUSCULOSKELETAL: Has back pain, stiffness or joint arthritis. SKIN: No skin cancer or rash PHYSICAL EXAM: VITAL SIGNS: Currently stable. GENERAL: Well-developed in no acute distress. HEENT: No sclera icterus. Extraocular movements grossly intact. Moist buccal mucosa. Head is atraumatic, normocephalic. Hears conversational speech. No nasal drainage. NECK: Supple without lymphadenopathy. CHEST: Non-labored respirations and equal bilateral excursions. CARDIOVASCULAR: Regular rate with regular rhythm. Palpable 2+ radial pulses. ABDOMEN: Soft. Protuberant. Minimal distention. Ostomy with some flatus. Minimal stool. No peritonitis. Mild tenderness below ostomy of left lower quadrant. MUSCULOSKELETAL: No clubbing, cyanosis or edema. NEUROLOGIC: No focal or lateralizing signs. Cranial nerves II through XII grossly intact. PSYCH: Appropriate affect. Alert and oriented to person, place and time. SKIN: Well perfused. Good skin turgor. ASSESSMENT: 1. History of parastomal hernia PLAN: 1. She had been placed on a full liquid to pured diet with avoidance of solid food. She reports now that she will follow the dietary plan as discussed. 2. She is scheduled to undergo evaluation with colorectal surgeon for future colostomy reversal. 3. She is aware that any additional events may accelerate semi-elective parastomal hernia repair that she wishes to avoid instead for a full colostomy reversal 4. Recommend trial of liquid diet. If she tolerates then may be discharged home with close observation. Thank you for this kind consultation. Past Medical History Past Medical History: Atrial Fibrillation, Asthma, Coronary Artery Disease (CAD) , Cancer, Heart Failure, GERD/Reflux Additional Past Medical History / Comment(s): Bronchial asthma, compression fracture of the T-spine, osteoporosis, skin cancer, history of sepsis of urinary source, sigmoid diverticulosis, compression fracture of the L2 spine, compression fracture of the T12 spine, compression fracture of the T7 spine,CHF , KIDNEY STONE History of Any Multi-Drug Resistant Organisms: None Reported Past Surgical History: Appendectomy, Bowel Resection, Tubal Ligation Additional Past Surgical History / Comment(s): CATARACT LEFT EYE WITH REPAIR OF MACULAR HOLE. Colonoscopy, 2015. bowel resection with colostomy, CYSTOSCOPY W/ RT RETROGRADE PYELOURETEROGRAM 10/21 Past Anesthesia/Blood Transfusion Reactions: No Reported Reaction Past Psychological History: No Psychological Hx Reported Past Drug Use History: None Reported - Past Family History Mother Family Medical History: Cancer Additional Family Medical History / Comment(s): COLON CANCER in Mother Medications and Allergies Home Medications Medication Instructions Recorded Confirmed Type Albuterol Nebulized [Ventolin 2.5 mg INHALATION RT-TID 07/22/16 01/07/18 History Nebulized] Albuterol Sulfate [Proventil Hfa] 2 puff INHALATION RT-Q6H PRN 07/22/16 History Budesonide/Formoterol Fumarate 2 puff INHALATION RT-BID 07/22/16 01/07/18 History [Symbicort 160-4.5 Mcg Inhaler] Montelukast [Singulair] 10 mg PO HS 07/22/16 01/07/18 History predniSONE 10 mg PO DAILY 10/21/16 01/07/18 History Cyclobenzaprine [Flexeril] 5 mg PO BID #60 tab 07/21/17 10/03/18 Rx Diltiazem HCl [Cartia Xt] 180 mg PO DAILY #30 cap 10/25/16 01/07/18 Rx Flecainide [Tambocor] 50 mg PO Q12HR #60 tab 10/25/16 01/07/18 Rx Gabapentin [Neurontin] 200 mg PO HS #60 cap 10/25/16 01/07/18 Rx HYDROcodone/APAP 7.5-325MG [[place] 1 tab PO Q6H PRN #30 tab 10/25/16 01/07/18 Rx 7.5-325] Ranitidine HCl [Zantac] 75 mg PO BID 12/31/17 01/07/18 History Allergies Allergy/AdvReac Type Severity Reaction Status Date / Time furosemide [From Lasix] Allergy Rash/Hives Verified 01/07/18 17:45 Surgical - Exam Vital Signs Temp Pulse Resp BP Pulse Ox 97.8 F 96 18 151/83 100 01/07/18 17:35 01/07/18 17:35 01/07/18 17:35 01/07/18 17:35 01/07/18 17:35 Results - Labs 01/07/18 18:11 01/07/18 18:11 Abnormal Lab Results - Last 24 Hours (Table) 01/07/18 01/07/18 Range/Units 18:11 18:11 MCHC 30.6 L (31.0-37.0) g/dL BUN 18 H (7-17) mg/dL Diabetes panel 01/07/18 Range/Units 18:11 Sodium 141 (137-145) mmol/L Potassium 4.2 (3.5-5.1) mmol/L Chloride 107 (98-107) mmol/L Carbon Dioxide 27 (22-30) mmol/L BUN 18 H (7-17) mg/dL Creatinine 0.98 (0.52-1.04) mg/dL Glucose 86 (74-99) mg/dL Calcium 9.1 (8.4-10.2) mg/dL AST 28 (14-36) U/L ALT 34 (9-52) U/L Alkaline Phosphatase 103 (38-126) U/L Total Protein 6.4 (6.3-8.2) g/dL Albumin 3.7 (3.5-5.0) g/dL Calcium panel 01/07/18 Range/Units 18:11 Calcium 9.1 (8.4-10.2) mg/dL Albumin 3.7 (3.5-5.0) g/dL Pituitary panel 01/07/18 Range/Units 18:11 Sodium 141 (137-145) mmol/L Potassium 4.2 (3.5-5.1) mmol/L Chloride 107 (98-107) mmol/L Carbon Dioxide 27 (22-30) mmol/L BUN 18 H (7-17) mg/dL Creatinine 0.98 (0.52-1.04) mg/dL Glucose 86 (74-99) mg/dL Calcium 9.1 (8.4-10.2) mg/dL Adrenal panel 01/07/18 Range/Units 18:11 Sodium 141 (137-145) mmol/L Potassium 4.2 (3.5-5.1) mmol/L Chloride 107 (98-107) mmol/L Carbon Dioxide 27 (22-30) mmol/L BUN 18 H (7-17) mg/dL Creatinine 0.98 (0.52-1.04) mg/dL Glucose 86 (74-99) mg/dL Calcium 9.1 (8.4-10.2) mg/dL Total Bilirubin 0.4 (0.2-1.3) mg/dL AST 28 (14-36) U/L ALT 34 (9-52) U/L Alkaline Phosphatase 103 (38-126) U/L Total Protein 6.4 (6.3-8.2) g/dL Albumin 3.7 (3.5-5.0) g/dL - Imaging Abdominal x-ray: report reviewed (No evidence of bowel obstruction identified. Patient's symptoms had resolved prior to abdominal x-ray), image reviewed Assessment and Plan (1) Parastomal hernia Status: Acute Code(s): K43.5 - PARASTOMAL HERNIA WITHOUT OBSTRUCTION OR GANGRENE SNOMED Code(s): 836260690 (2) Nausea & vomiting Status: Acute Code(s): R11.2 - NAUSEA WITH VOMITING, UNSPECIFIED SNOMED Code (s): 40456588
--- NOTE | 2018-01-08 17:44 | P.PN ---
Progress Note - Text Progress Note Date: 01/08/18 Patient contacted at home. She reports output from her ostomy. She has flatus in her ostomy bag. No reports of increased abdominal pain. Dietary guidelines reviewed. Patient asked to notify our office for any concerns.
== END 2018-01-07 20:21 | disposition home or self-care (01) ==
LOC: EC 17:28
DX: K94.19 Other complications of enterostomy (principal); J45.909 Unspecified asthma, uncomplicated; K21.9 Gastro-esophageal reflux disease without esophagitis; Z88.8 Allergy status to other drugs, medicaments and biological substances; Z79.51 Long term (current) use of inhaled steroids; Z79.52 Long term (current) use of systemic steroids; Z79.899 Other long term (current) drug therapy; Z90.49 Acquired absence of other specified parts of digestive tract; Z80.0 Family history of malignant neoplasm of digestive organs; Z53.20 Procedure and treatment not carried out because of patient's decision for unspecified reasons
CPT/HCPCS: 36415; 74018; 80053; 82150; 83690; 85025; 99284

== ENCOUNTER 2018-01-18 20:27 | Inpatient (IN) | payer MEDICARE ==
--- NOTE | 2018-01-18 21:44 | XR ---
EXAMINATION TYPE: XR KUB DATE OF EXAM: 01/18/2018 COMPARISON: 01/07/2018 HISTORY: Constipation TECHNIQUE: 2 views upright FINDINGS: There are scattered fluid levels throughout the abdomen.. There are some intestinal fluid l evels. There is 2 x 1 cm calcification over the right kidney that is staghorn calculus. There is no s ign of free air. There is increased density over the left lower quadrant laterally consistent with pa rastomal hernia. IMPRESSION: Intestinal fluid levels could relate to partial mechanical obstruction or see intestinal ileus. No free air. This is a change compared to last exam.
--- NOTE | 2018-01-18 21:55 | ED ---
Abdominal Pain HPI - General Source: patient, EMS, RN notes reviewed Mode of arrival: EMS Limitations: no limitations <Fely Crawley - Last Filed: 01/19/18 04:04> <Lisa Davison - Last Filed: 01/19/18 04:51> - General Chief Complaint: Abdominal Pain Stated Complaint: abd pain Time Seen by Provider: 01/18/18 21:03 - History of Present Illness Initial Comments: This is a 67-year-old female who presents to the emergency department with chief complaint of abdominal pain and distention. Patient states that she is in the process of having a colostomy reversal. She states that she was seen here 2 weeks ago and was diagnosed with a hernia below her stoma. She states that her surgeon is Dr. Pringle, but has been given a referral to a specialist for the colostomy reversal since being diagnosed with a hernia. Patient states that she has been trying to eat soft foods and liquids. She states that 2 days ago she developed left lower abdominal pain and distention. She states that she waited it out, was able to have a bowel movement and the pain went away. Patient states that the same thing happened this evening. Approximately a half an hour after eating soup she developed left lower abdominal pain and distention. She has had no filling of her ostomy bag since it was changed this afternoon. She denies any fevers or chills, chest pain or shortness of breath, nausea or vomiting. (Fely Crawley) - Related Data Home Medications Medication Instructions Recorded Confirmed Albuterol Nebulized [Ventolin 2.5 mg INHALATION RT-TID 07/22/16 01/07/18 Nebulized] Albuterol Sulfate [Proventil Hfa] 2 puff INHALATION RT-Q6H PRN 07/22/16 01/07/18 Budesonide/Formoterol Fumarate 2 puff INHALATION RT-BID 07/22/16 01/07/18 [Symbicort 160-4.5 Mcg Inhaler] Montelukast [Singulair] 10 mg PO HS 07/22/16 01/07/18 predniSONE 10 mg PO DAILY 10/21/16 01/07/18 Ranitidine HCl [Zantac] 75 mg PO BID 12/31/17 01/07/18 Previous Rx's Medication Instructions Recorded Cyclobenzaprine [Flexeril] 5 mg PO BID #60 tab 10/25/16 Diltiazem HCl [Cartia Xt] 180 mg PO DAILY #30 cap 10/25/16 Flecainide [Tambocor] 50 mg PO Q12HR #60 tab 10/25/16 Gabapentin [Neurontin] 200 mg PO HS #60 cap 10/25/16 HYDROcodone/APAP 7.5-325MG [[place] 1 tab PO Q6H PRN #30 tab 10/25/16 7.5-325] Allergies Allergy/AdvReac Type Severity Reaction Status Date / Time furosemide [From Lasix] Allergy Rash/Hives Verified 01/18/18 20:39 Review of Systems ROS Other: All systems not noted in ROS Statement are negative. <Fely Crawley - Last Filed: 01/19/18 04:04> ROS Other: All systems not noted in ROS Statement are negative. <Lisa Davison - Last Filed: 01/19/18 04:51> ROS Statement: Those systems with pertinent positive or pertinent negative responses have been documented in the HPI. Past Medical History Past Medical History: Atrial Fibrillation, Asthma, Coronary Artery Disease (CAD) , Cancer, Heart Failure, GERD/Reflux Additional Past Medical History / Comment(s): Bronchial asthma, compression fracture of the T-spine, osteoporosis, skin cancer, history of sepsis of urinary source, sigmoid diverticulosis, compression fracture of the L2 spine, compression fracture of the T12 spine, compression fracture of the T7 spine,CHF , KIDNEY STONE History of Any Multi-Drug Resistant Organisms: None Reported Past Surgical History: Appendectomy, Bowel Resection, Tubal Ligation Additional Past Surgical History / Comment(s): CATARACT LEFT EYE WITH REPAIR OF MACULAR HOLE. Colonoscopy, 2015. bowel resection with colostomy, CYSTOSCOPY W/ RT RETROGRADE PYELOURETEROGRAM 10/21 Past Anesthesia/Blood Transfusion Reactions: No Reported Reaction Past Psychological History: No Psychological Hx Reported Smoking Status: Never smoker Past Alcohol Use History: None Reported Past Drug Use History: None Reported - Past Family History Mother Family Medical History: Cancer Additional Family Medical History / Comment(s): COLON CANCER in Mother <Fely Crawley - Last Filed: 01/19/18 04:04> General Exam Limitations: no limitations <Fely Crawley - Last Filed: 01/19/18 04:04> <Lisa Davison P - Last Filed: 01/19/18 04:51> - General Exam Comments Initial Comments: General: Awake and alert, well-developed; in no apparent distress. HEENT: Head atraumatic, normocephalic. Pupils are equal, round and reactive to light. Extraocular movements intact. Oropharynx moist without erythema or exudate. Neck: Supple. Normal ROM. Cardiovascular: Regular rate and rhythm. No murmurs, rubs or gallops. Chest symmetrical. Respiratory: Lungs clear to auscultation bilaterally. No wheezes, rales or rhonchi. Normal respiratory effort with no use of accessory muscles. Abdomen: Soft. Intact colostomy bag left lower quadrant. No fecal content is noted within the bag. There is mild tenderness surrounding the stoma with mild distention. Stoma is pink. No rigidity, rebound or guarding. Normal bowel sounds in all 4 quadrants. Musculoskeletal: Normal ROM, no tenderness bilateral upper and lower extremities. Skin: [place], warm and dry without rashes or lesions. Neurological: Alert and oriented x3. CN II-XII grossly intact. Speech is fluent and answers are appropriate. No focal neuro deficits. Psychiatric: Normal mood and affect. No overt signs of depression or anxiety noted. (Fely Crawley) Course <Fely Crawley - Last Filed: 01/19/18 04:04> <Lisa Davison P - Last Filed: 01/19/18 04:51> Vital Signs 01/18/18 01/18/18 01/19/18 20:39 21:58 01:53 Temperature 98.5 F Pulse Rate 74 86 84 Respiratory 16 16 18 Rate Blood Pressure 124/76 147/82 120/72 O2 Sat by Pulse 95 98 98 Oximetry 01/19/18 03:47 Temperature Pulse Rate 77 Respiratory 17 Rate Blood Pressure 134/73 O2 Sat by Pulse 97 Oximetry - Reevaluation(s) Reevaluation #1: Patient has had no active bowel movement. Attempt at disimpaction was made both digitally and with a glycerin suppository. Patient continues to not have any active bowel movement. Case discussed with attending physician, Dr. Davison. Labs and computed tomography scan of the abdomen pending. 01/18/18 23:16 (Fely Crawley) Medical Decision Making - Lab Data Result diagrams: 01/18/18 23:30 01/18/18 23:30 - Radiology Data Radiology results: report reviewed, image reviewed <Fely Crawley - Last Filed: 01/19/18 04:04> - Lab Data Result diagrams: 01/18/18 23:30 01/18/18 23:30 <Lisa Davison - Last Filed: 01/19/18 04:51> - Medical Decision Making This is a 67-year-old female who presents to the emergency department with chief complaint of abdominal pain and distention. Patient has a colostomy in place. She was recently diagnosed with a parastomal hernia. Since that time, she has had 2 episodes of left lower abdominal pain and distention. Her last episode of this was relieved by having a bowel movement. Patient reports not having a bowel movement since yesterday afternoon. An x-ray KUB was obtained which revealed evidence for possible partial mechanical obstruction or intestinal ileus. Digital exam was performed which revealed no fecal impaction. Glycerin suppository failed to elicit a bowel movement. A computed tomography scan of the abdomen and pelvis with IV contrast was obtained. This did reveal an incarcerated parastomal hernia with small bowel dilation that is worse than previous examination. This is consistent with a partial mechanical obstruction. CBC and CMP reveal no significant abnormalities. Case was discussed with attending physician, Dr. Davison. Discussed admission with patient who is in agreement. She will be admitted to Dr. Boyer. She is made nothing by mouth with IV fluids and pain meds. Vitals are stable. Condition upon admission is good. (Fely Crawley) I was available for consultation in the emergency department. The history and physical exam were done by the midlevel provider. I was consulted for this patient's care. I reviewed the case with the midlevel provider and based on their presentation of the patient, I agree with the assessment, medical decision making and plan of care as documented. I reviewed the patient's imaging, I discussed patient care with surgeon Dr. Boyer who agrees with plan for admission (Lisa Davison) - Lab Data Lab Results 01/18/18 01/18/18 Range/Units 23:30 23:30 WBC 10.2 (3.8-10.6) k/uL RBC 4.47 (3.80-5.40) m/uL Hgb 13.2 (11.4-16.0) gm/dL Hct 41.3 (34.0-46.0) % MCV 92.5 (80.0-100.0) fL MCH 29.6 (25.0-35.0) pg MCHC 32.0 (31.0-37.0) g/dL RDW 14.4 (11.5-15.5) % Plt Count 270 (150-450) k/uL Neutrophils % 72 % Lymphocytes % 18 % Monocytes % 5 % Eosinophils % 3 % Basophils % 1 % Neutrophils # 7.4 (1.3-7.7) k/uL Lymphocytes # 1.8 (1.0-4.8) k/uL Monocytes # 0.5 (0-1.0) k/uL Eosinophils # 0.4 (0-0.7) k/uL Basophils # 0.1 (0-0.2) k/uL Sodium 139 (137-145) mmol/L Potassium 4.3 (3.5-5.1) mmol/L Chloride 102 (98-107) mmol/L Carbon Dioxide 29 (22-30) mmol/L Anion Gap 8 mmol/L BUN 23 H (7-17) mg/dL Creatinine 1.00 (0.52-1.04) mg/dL Est GFR (CKD-EPI)AfAm 68 (>60 ml/min/1.73 sqM) Est GFR (CKD-EPI)NonAf 59 (>60 ml/min/1.73 sqM) Glucose 94 (74-99) mg/dL Calcium 9.3 (8.4-10.2) mg/dL Total Bilirubin 0.3 (0.2-1.3) mg/dL AST 21 (14-36) U/L ALT 20 (9-52) U/L Alkaline Phosphatase 105 (38-126) U/L Total Protein 6.8 (6.3-8.2) g/dL Albumin 3.9 (3.5-5.0) g/dL - Radiology Data X-ray KUB findings: There are scattered fluid levels. The abdomen. There are some intestinal fluid levels. There is 2 x 1 cm calcification of the right kidney that is a staghorn calculus. There is no sign of free air. There is increased density over the left lower quadrant laterally consistent with parastomal hernia. Impression: Intestinal fluid levels could relate to partial mechanical obstruction or intestinal ileus. No free air. This is a change compared to last exam. CT abdomen and pelvis with contrast impression: Incarcerated peristomal hernia with dilated small bowel. Small bowel dilation is slightly worse than last exam. This is consistent with partial mechanical obstruction. No evidence of intestinal ischemia. The small bowel within the hernia is increased compared to last exam. (Fely Crawley) Disposition Is patient prescribed a controlled substance at d/c from ED?: No <Fely Crawley - Last Filed: 01/19/18 04:04> <Lisa Daviosn - Last Filed: 01/19/18 04:51> Clinical Impression: Partial bowel obstruction, Peristomal hernia Disposition: ADMITTED IP TO THIS HOSP Condition: Good
[2018-01-18] MEDS ORDERED: GLYCERIN ADULT SUPPOSITORY 1 EACH RECTAL STA (22:33)
[2018-01-18 23:41] LABS: Basophils # (A) 0.1 k/uL (0-0.2); Basophils % (A) 1 %; Eosinophils # (A) 0.4 k/uL (0-0.7); Eosinophils % (A) 3 %; HCT 41.3 % (34.0-46.0); HGB 13.2 gm/dL (11.4-16.0); Lymphocytes # (A) 1.8 k/uL (1.0-4.8); Lymphocytes % (A) 18 %; MCH 29.6 pg (25.0-35.0); MCV 92.5 fL (80.0-100.0); Mean Platelet Volume 6.5; Monocytes # (A) 0.5 k/uL (0-1.0); Monocytes % (A) 5 %; Neutrophils # (A) 7.4 k/uL (1.3-7.7); Neutrophils % (A) 72 %; Platelet Count 270 k/uL (150-450); RBC 4.47 m/uL (3.80-5.40); RDW 14.4 % (11.5-15.5); WBC 10.2 k/uL (3.8-10.6)
[2018-01-18 23:53] LABS: Albumin 3.9 g/dL (3.5-5.0); Calcium 9.3 mg/dL (8.4-10.2); Potassium 4.3 mmol/L (3.5-5.1); Total Bilirubin 0.3 mg/dL (0.2-1.3); Total Protein 6.8 g/dL (6.3-8.2)
--- NOTE | 2018-01-19 00:43 | CT ---
EXAMINATION TYPE: CT abdomen pelvis w con DATE OF EXAM: 01/19/2018 COMPARISON: 01/03/2018 HISTORY: Prior on synapse, abd distention, ileostomy obstruction CT DLP: 925.10 mGycm Automated exposure control for dose reduction was used. TECHNIQUE: Helical acquisition of images was performed from the lung bases through the pelvis. CONTRAST: Performed without Oral Contrast and with IV Contrast, patient injected with 100 mL of Isovue 300. FINDINGS: Lung bases are clear of infiltrate. There is moderate size hiatal hernia. Liver shows no focal defect . There are clips from cholecystectomy. Common bile duct measures up to 1.5 cm. There is no adrenal m ass. There is 2 cm calcification in the lower pole right kidney. There is 1 mm calcification lower po le right kidney. There is 2 mm calcification lower pole left kidney. There is no hydronephrosis. Ther e is no retroperitoneal adenopathy. There is a left sided colostomy. There is large parastomal hernia that contains small bowel. The small bowel is somewhat dilated in the hernia. Small bowel is dilated up to 3.5 cm. There is mildly dilated small bowel in the left mid abdomen that measures 3.2 cm. Ther e is no free air. There is no ascites. Bladder distends smoothly. There are apparent small calcified uterine fibroids. There is 25% mild compression deformity of L3 and L2. There is 70% compression defo rmity of T12. There is no hydronephrosis. There is no inguinal hernia. There is no mesenteric adenopa thy or edema. Appendix is not seen. There is no sign of appendicitis. IMPRESSION: INCARCERATED PARASTOMAL HERNIA WITH DILATED SMALL BOWEL. SMALL BOWEL DILATION IS SLIGHTLY WORSE THAN LAST EXAM. THIS IS CONSISTENT WITH PARTIAL MECHANICAL OBSTRUCTION. NO EVIDENCE OF INTESTINAL ISCHEMIA . THE SMALL BOWEL WITHIN THE HERNIA IS INCREASED COMPARED TO LAST EXAM. NONOBSTRUCTING MULTIPLE RENAL CALCULI. STAGHORN CALCULUS POSTERIOR RIGHT KIDNEY. THE BILIARY TREE IS MILDLY DILATED AND THE COMMON BILE DUCT AND INTRAHEPATIC BILE DUCTS APPEAR INCREA SED COMPARED TO LAST EXAM THAT SUGGESTS NEW OBSTRUCTION. COMMON BILE DUCT IS 11 MM ON THE OLD EXAM AN D IS NOW 15 MM. OLD MULTIPLE COMPRESSION FRACTURES APPEAR STABLE.
[2018-01-19] MEDS ORDERED: Acetaminophen-Codeine 300-30mg TAB PO STA (03:14)
[2018-01-19] MEDS ORDERED: ACETAMINOPHEN TAB 325 MG TAB PO PRN (03:23)
[2018-01-19] MEDS ORDERED: MORPHINE SULFATE 4 MG/ML SYRINGE IV PRN (03:23)
[2018-01-19] MEDS ORDERED: Acetaminophen-Codeine 300-30mg TAB PO PRN (03:23)
[2018-01-19] MEDS ORDERED: NALOXONE 0.4 MG/ML 1 ML VIAL IV PRN (03:23)
[2018-01-19 05:22] VITALS: BMI 29.5
[2018-01-19] MEDS: SODIUM CHLORIDE 0.9% 1,000 ML IV SCH ×2 (05:39→17:56)
[2018-01-19] MEDS ORDERED: POLYETHYLENE GLYCOL 3350 17 GM POWD.PACK PO PRN (09:57)
[2018-01-19] MEDS ORDERED: ALBUTEROL NEBULIZED 2.5 MG/3 ML INHALATION PRN (09:57)
[2018-01-19] MEDS: ALBUTEROL NEBULIZED 2.5 MG/3 ML INHALATION PRN ×3 (10:22→20:37)
[2018-01-19] MEDS: DILTIAZEM CD 180 MG CAP.ER.24H PO SCH (11:26)
[2018-01-19] MEDS: FLECAINIDE 50 MG TAB PO SCH (11:26)
--- NOTE | 2018-01-19 13:17 | P.CONS ---
History of Present Illness - Reason for Consult Consult date: 01/19/18 medical management Requesting physician: Lucio Boyer - Chief Complaint colostomy hernia - History of Present Illness This is a 67-year-old female one of Dr. Price's with a previous medical history significant for CAD, paroxysmal atrial flutter ablation, asthma , history of chronic diastolic heart failure, GERD, diverticulitis, history of basal cell cancer removed from the face as well patient is known to have a history of colostomy left side secondary to diverticular disease, has parastomal hernia. Last hospitalization was in December 2016 secondary to severe abdominal pain and perforation ended up going for partial resection and unsuccessful reversal colostomy. . She did well post discharge from 2017, and she could not wait to see her surgeon at [facility] ended up seeing Dr. Frances who recommended for her to have a treatment of the parastomal hernia, we were asked to see the patient for medical management today. Patient is laying down in bed in no apparent distress she denies any chest pain, shortness breath, she denies any abdominal pain, this time she has very low output in her stoma, patient did have an EKG that showed normal sinus rhythm without evidence of acute ST-T wave changes, she did have an echocardiogram that was done at the beginning of the month that showed normal ejection fraction with mild mitral regurgitation and tricuspid regurgitation. Patient is going for moderate risk surgery there is no Indication for the proposed surgical intervention at this point in time. Review of Systems Constitutional: Denies anorexia, Denies chronic headaches, Denies lethargy, Denies weakness, Denies weight gain Eyes: denies blurred vision Ears: deny: decreased hearing Ears, nose, mouth and throat: Denies dysphagia, Denies neck lump, Denies swelling in throat, Denies sore throat Cardiovascular: Reports decreased exercise tolerance, Denies chest pain, Denies lightheadedness, Denies shortness of breath, Denies syncope Respiratory: Denies congestion, Denies cough with sputum, Denies home oxygen, Denies sleep apnea, Denies snoring, Denies wheezing Gastrointestinal: Reports abdominal pain, Denies bloating, Denies BRBPR, Denies heartburn, Denies melena, Denies nausea, Denies vomiting Genitourinary: Denies dysuria, Denies hematuria Musculoskeletal: Denies myalgias Musculoskeletal: absent: ankle pain, ankle stiffness, ankle swelling, elbow pain , elbow stiffness, elbow swelling, foot pain, foot stiffness, foot swelling, hand pain, hand stiffness, hand swelling, hip pain, hip stiffness, hip swelling , knee pain, knee stiffness, knee swelling, shoulder pain, shoulder stiffness, shoulder swelling, wrist pain, wrist stiffness, wrist swelling Integumentary: Denies pruritus, Denies rash Neurological: Denies numbness, Denies weakness Psychiatric: Denies anxiety, Denies depression Endocrine: Denies fatigue, Denies weight change Past Medical History Past Medical History: Atrial Fibrillation, Asthma, Coronary Artery Disease (CAD) , Cancer, Heart Failure, GERD/Reflux Additional Past Medical History / Comment(s): Bronchial asthma, compression fracture of the T-spine, osteoporosis, skin cancer, history of sepsis of urinary source, sigmoid diverticulosis, compression fracture of the L2 spine, compression fracture of the T12 spine, compression fracture of the T7 spine,CHF , KIDNEY STONE History of Any Multi-Drug Resistant Organisms: None Reported Past Surgical History: Appendectomy, Bowel Resection, Tubal Ligation Additional Past Surgical History / Comment(s): CATARACT LEFT EYE WITH REPAIR OF MACULAR HOLE. Colonoscopy, 2015. bowel resection with colostomy, CYSTOSCOPY W/ RT RETROGRADE PYELOURETEROGRAM 10/21 Past Anesthesia/Blood Transfusion Reactions: No Reported Reaction Past Psychological History: No Psychological Hx Reported Smoking Status: Never smoker Past Alcohol Use History: None Reported Past Drug Use History: None Reported - Past Family History Mother Family Medical History: Cancer (mother at age of 82 from colon cancer and she also had history of asthma.) Additional Family Medical History / Comment(s): COLON CANCER in Mother Father Family Medical History: No Reported History (father is 92-year-old has no major medical problems.) Brother(s) Family Medical History: No Reported History (patient has one brother no medical issues.) Son(s) Family Medical History: No Reported History (patient has 2 sons no major medical problems.) Medications and Allergies Home Medications Medication Instructions Recorded Confirmed Type Albuterol Nebulized [Ventolin 2.5 mg INHALATION RT-TID PRN 07/22/16 01/19/18 History Nebulized] Albuterol Sulfate [Proventil Hfa] 2 puff INHALATION RT-Q6H PRN 07/22/16 History Budesonide/Formoterol Fumarate 2 puff INHALATION RT-BID 07/22/16 01/19/18 History [Symbicort 160-4.5 Mcg Inhaler] Montelukast [Singulair] 10 mg PO HS 07/22/16 01/19/18 History Diltiazem HCl [Cartia Xt] 180 mg PO DAILY #30 cap 10/25/16 01/19/18 Rx HYDROcodone/APAP 7.5-325MG [[place] 1 tab PO Q6H PRN #30 tab 10/25/16 01/19/18 Rx 7.5-325] Apixaban [Eliquis] 5 mg PO DAILY 01/19/18 01/19/18 History Calcium Carbonate [Calcium] 600 mg PO BID 01/19/18 01/19/18 History Cholecalciferol [Vitamin D3] 1,000 unit PO DAILY 01/19/18 01/19/18 History Cyclobenzaprine [Flexeril] 10 mg PO HS 01/19/18 01/19/18 History Flecainide [Tambocor] 50 mg PO DAILY 01/19/18 01/19/18 History Folic Acid 1 mg PO DAILY 01/19/18 01/19/18 History Gabapentin [Neurontin] 100 mg PO HS 01/19/18 01/19/18 History Multivitamins, Thera [Multivitamin 1 tab PO DAILY 01/19/18 01/19/18 History (formulary)] Polyethylene Glycol 3350 [Miralax] 17 gm PO DAILY PRN 01/19/18 01/19/18 History Turmeric 1160mg 1,160 mg PO TID 01/19/18 01/19/18 History predniSONE 5 mg PO DAILY 01/19/18 01/19/18 History Allergies Allergy/AdvReac Type Severity Reaction Status Date / Time furosemide [From Lasix] Allergy Rash/Hives Verified 01/19/18 09:23 morphine AdvReac Hallucinati Verified 01/19/18 09:29 ons Physical Exam Vitals: Vital Signs Temp Pulse Pulse Resp BP BP Pulse Ox 01/19/18 10:32 80 01/19/18 10:22 80 01/19/18 07:00 98.1 F 79 16 115/70 97 01/19/18 05:11 97.7 F 75 16 116/67 90 L 01/19/18 03:47 77 17 134/73 97 01/19/18 01:53 84 18 120/72 98 01/18/18 21:58 86 16 147/82 98 01/18/18 20:39 98.5 F 74 16 124/76 95 Intake and Output 01/18/18 01/19/18 01/19/18 22:59 06:59 14:59 Other: Weight 78.018 kg 78.018 kg - Constitutional General appearance: average body habitus, no acute distress - EENT Eyes: anicteric sclerae, EOMI, PERRLA, no ptosis, no scleral icterus, normal appearance ENT: hearing grossly normal, NA/AT, normal oropharynx, no thrush Ears: bilateral: normal - Neck Neck: no lymphadenopathy, normal ROM, no rigidity, no stridor, no thyromegaly Carotids: bilateral: upstroke normal Thyroid: bilateral: normal size - Respiratory Respiratory: bilateral: diminished, negative: dullness, rales, rhonchi, wheezing , prolonged expiration, prolonged inspiration - Cardiovascular Rhythm: regular Heart sounds: normal: S1, S2 Abnormal Heart Sounds: no systolic murmur, no S3 Gallop, no S4 Gallop - Gastrointestinal General gastrointestinal: normal bowel sounds, soft, no splenomegaly, no tenderness, no umbilical hernia, ventral hernia (parastomal hernia.) - Integumentary Integumentary: normal, normal turgor - Neurologic Neurologic: CNII-XII intact - Musculoskeletal Musculoskeletal: gait normal, strength equal bilaterally - Psychiatric Psychiatric: A&O x's 3, appropriate affect, intact judgment & insight Results CBC & Chem 7: 01/18/18 23:30 01/18/18 23:30 Labs: Abnormal Lab Results - Last 24 Hours (Table) 01/18/18 Range/Units 23:30 BUN 23 H (7-17) mg/dL Assessment and Plan Assessment: Assessment and plan: 1. Parastomal hernia. Patient has had this for quite sometime. She is asking for a definitive treatment for and the patient was scheduled to go for surgical intervention in the next 24 hours, patient has been off her Eliquis, EKG was reviewed as well as echo cardiogram, patient is going for moderate risk surgery , there is no complication for the proposed surgical intervention at this point , surgery Elena risk for a few complications that the patient is aware often willing to proceed. 2. mild chronic persistent asthma on maintenance prednisone 5 mg daily along with with Symbicort and albuterol nebulizer stable, follows with outpatient Dr. Tyler , we'll continue secondary to milligram at bedtime. 3 . Paroxysmal atrial fibrillation currently in sinus rhythm. Continue Tambocor 50 mg orally once every day, continue to hold Eliquis until after surgical intervention, continue with Cardizem 120 mg orally once every day. 4. chronic pain syndrome. We will continue with [place], and gabapentin 100 mg at bedtime, monitor the patient very closely. 5. Hypertension. Continue patient on Cardizem CD 120 mg orally once every day. 6. severe GERD and hiatal hernia. We will continue patient on PPI. 7. DVT prophylaxis. Bilateral knee-high AUGUSTINE hose, and resume Eliquis 24 hours post surgery. 8. Thanks for the consult we'll follow with you.
[2018-01-19] MEDS ORDERED: TURMERIC PO SCH (16:00)
[2018-01-19] MEDS ORDERED: NA PHOS,M-B/NA PHOS,DI-BA 133 ML ENEMA RECTAL STA (18:03)
--- NOTE | 2018-01-19 18:03 | P.GSHP ---
History of Present Illness H&P Date: 01/19/18 Chief Complaint: Incarcerated parastomal hernia This is a 67-year-old female who's had problems with an incarcerated parastomal hernia. Patient's had several hospital admissions due to pain at the hernia site. Patient has had a previous history of Tho procedure with Dr. Garcia. Patient is known to have a parastomal hernia. She was just admitted to the hospital 2 weeks ago. Patient states that she developed pain and nausea. She was admitted through the emergency room due to complaints of her incarcerated parastomal hernia. Past Medical History Past Medical History: Atrial Fibrillation, Asthma, Coronary Artery Disease (CAD) , Cancer, Heart Failure, GERD/Reflux Additional Past Medical History / Comment(s): Bronchial asthma, compression fracture of the T-spine, osteoporosis, skin cancer, history of sepsis of urinary source, sigmoid diverticulosis, compression fracture of the L2 spine, compression fracture of the T12 spine, compression fracture of the T7 spine,CHF , KIDNEY STONE History of Any Multi-Drug Resistant Organisms: None Reported Past Surgical History: Appendectomy, Bowel Resection, Tubal Ligation Additional Past Surgical History / Comment(s): CATARACT LEFT EYE WITH REPAIR OF MACULAR HOLE. Colonoscopy, 2014. bowel resection with colostomy, CYSTOSCOPY W/ RT RETROGRADE PYELOURETEROGRAM 10/21 Past Anesthesia/Blood Transfusion Reactions: No Reported Reaction Past Psychological History: No Psychological Hx Reported Smoking Status: Never smoker Past Alcohol Use History: None Reported Past Drug Use History: None Reported - Past Family History Mother Family Medical History: Cancer (mother at age of 82 from colon cancer and she also had history of asthma.) Additional Family Medical History / Comment(s): COLON CANCER in Mother Father Family Medical History: No Reported History (father is 92-year-old has no major medical problems.) Brother(s) Family Medical History: No Reported History (patient has one brother no medical issues.) Son(s) Family Medical History: No Reported History (patient has 2 sons no major medical problems.) Medications and Allergies Home Medications Medication Instructions Recorded Confirmed Type Albuterol Nebulized [Ventolin 2.5 mg INHALATION RT-TID PRN 07/22/16 01/19/18 History Nebulized] Albuterol Sulfate [Proventil Hfa] 2 puff INHALATION RT-Q6H PRN 07/22/16 History Budesonide/Formoterol Fumarate 2 puff INHALATION RT-BID 07/22/16 01/19/18 History [Symbicort 160-4.5 Mcg Inhaler] Montelukast [Singulair] 10 mg PO HS 07/22/16 01/19/18 History Diltiazem HCl [Cartia Xt] 180 mg PO DAILY #30 cap 10/25/16 01/19/18 Rx HYDROcodone/APAP 7.5-325MG [[place] 1 tab PO Q6H PRN #30 tab 10/25/16 01/19/18 Rx 7.5-325] Apixaban [Eliquis] 5 mg PO DAILY 01/19/18 01/19/18 History Calcium Carbonate [Calcium] 600 mg PO BID 01/19/18 01/19/18 History Cholecalciferol [Vitamin D3] 1,000 unit PO DAILY 01/19/18 01/19/18 History Cyclobenzaprine [Flexeril] 10 mg PO HS 01/19/18 01/19/18 History Flecainide [Tambocor] 50 mg PO DAILY 01/19/18 01/19/18 History Folic Acid 1 mg PO DAILY 01/19/18 01/19/18 History Gabapentin [Neurontin] 100 mg PO HS 01/19/18 01/19/18 History Multivitamins, Thera [Multivitamin 1 tab PO DAILY 01/19/18 01/19/18 History (formulary)] Polyethylene Glycol 3350 [Miralax] 17 gm PO DAILY PRN 01/19/18 01/19/18 History Turmeric 1160mg 1,160 mg PO TID 01/19/18 01/19/18 History predniSONE 5 mg PO DAILY 01/19/18 01/19/18 History Allergies Allergy/AdvReac Type Severity Reaction Status Date / Time furosemide [From Lasix] Allergy Rash/Hives Verified 01/19/18 09:23 morphine AdvReac Hallucinati Verified 01/19/18 09:29 ons Surgical - Exam Vital Signs Temp Pulse Resp BP Pulse Ox 98.5 F 74 16 124/76 95 01/18/18 20:39 01/18/18 20:39 01/18/18 20:39 01/18/18 20:39 01/18/18 20:39 - General well developed, no distress - Eyes PERRL - ENT normal pinna - Neck no masses - Respiratory normal expansion - Cardiovascular Rhythm: regular - Abdomen There is a stoma in the left lower quadrant. There is some stool and gas in the colostomy bag. Abdomen: soft Results - Labs 01/18/18 23:30 01/18/18 23:30 Abnormal Lab Results - Last 24 Hours (Table) 01/18/18 Range/Units 23:30 BUN 23 H (7-17) mg/dL Diabetes panel 01/18/18 Range/Units 23:30 Sodium 139 (137-145) mmol/L Potassium 4.3 (3.5-5.1) mmol/L Chloride 102 (98-107) mmol/L Carbon Dioxide 29 (22-30) mmol/L BUN 23 H (7-17) mg/dL Creatinine 1.00 (0.52-1.04) mg/dL Glucose 94 (74-99) mg/dL Calcium 9.3 (8.4-10.2) mg/dL AST 21 (14-36) U/L ALT 20 (9-52) U/L Alkaline Phosphatase 105 (38-126) U/L Total Protein 6.8 (6.3-8.2) g/dL Albumin 3.9 (3.5-5.0) g/dL Calcium panel 01/18/18 Range/Units 23:30 Calcium 9.3 (8.4-10.2) mg/dL Albumin 3.9 (3.5-5.0) g/dL Pituitary panel 01/18/18 Range/Units 23:30 Sodium 139 (137-145) mmol/L Potassium 4.3 (3.5-5.1) mmol/L Chloride 102 (98-107) mmol/L Carbon Dioxide 29 (22-30) mmol/L BUN 23 H (7-17) mg/dL Creatinine 1.00 (0.52-1.04) mg/dL Glucose 94 (74-99) mg/dL Calcium 9.3 (8.4-10.2) mg/dL Adrenal panel 01/18/18 Range/Units 23:30 Sodium 139 (137-145) mmol/L Potassium 4.3 (3.5-5.1) mmol/L Chloride 102 (98-107) mmol/L Carbon Dioxide 29 (22-30) mmol/L BUN 23 H (7-17) mg/dL Creatinine 1.00 (0.52-1.04) mg/dL Glucose 94 (74-99) mg/dL Calcium 9.3 (8.4-10.2) mg/dL Total Bilirubin 0.3 (0.2-1.3) mg/dL AST 21 (14-36) U/L ALT 20 (9-52) U/L Alkaline Phosphatase 105 (38-126) U/L Total Protein 6.8 (6.3-8.2) g/dL Albumin 3.9 (3.5-5.0) g/dL Assessment and Plan Assessment: History of intermittent obstruction of her parastomal hernia. Patient will undergo proctostomy to see the length of the rectal stump. If this is suitable for reanastomosis patient will undergo reversal of colostomy and colorectal anastomosis. If her rectal stump is too short she'll undergo repair of her parastomal hernia.
[2018-01-19] MEDS: HYDROcodone/APAP 7.5-325MG 1 EACH TAB PO PRN ×2 (18:04→23:39)
[2018-01-19] MEDS: SYMBICORT 160-4.5 MCG INHALER INHALATION SCH (20:37)
[2018-01-19] MEDS ORDERED: CYCLOBENZAPRINE 10 MG TAB PO SCH (21:00)
[2018-01-19] MEDS ORDERED: GABAPENTIN 100 MG CAP PO SCH (21:00)
[2018-01-19] MEDS: CALCIUM CARBONATE 500 MG CHEWABLE PO SCH (21:00)
[2018-01-19] MEDS ORDERED: MONTELUKAST 10 MG TAB PO SCH (21:00)
[2018-01-20] MEDS: SYMBICORT 160-4.5 MCG INHALER INHALATION SCH (07:08)
[2018-01-20] MEDS: ALBUTEROL NEBULIZED 2.5 MG/3 ML INHALATION PRN (07:08)
[2018-01-20] MEDS ORDERED: predniSONE 5 MG TAB PO SCH (09:00)
[2018-01-20] MEDS ORDERED: CHOLECALCIFEROL 1,000 UNIT TAB PO SCH (09:00)
[2018-01-20] MEDS ORDERED: ONDANSETRON 4 MG/2 ML VIAL IVP PRN (09:52)
[2018-01-20] MEDS ORDERED: ONDANSETRON 4 MG/2 ML VIAL ONE (09:58)
[2018-01-20] MEDS: DILTIAZEM CD 180 MG CAP.ER.24H PO SCH (10:01)
[2018-01-20] MEDS: CALCIUM CARBONATE 500 MG CHEWABLE PO SCH (10:01)
[2018-01-20] MEDS: SODIUM CHLORIDE 0.9% 1,000 ML IV SCH (10:02)
[2018-01-20] MEDS: FLECAINIDE 50 MG TAB PO SCH (10:02)
[2018-01-20 10:16] VITALS: RESP 18
[2018-01-20] MEDS ORDERED: LIDOCAINE 1% INJ 10MG/ML (20 ML MDV) ONE (10:44)
[2018-01-20] MEDS ORDERED: PROPOFOL 10 MG/ML 20 ML VIAL IV ONE (10:44)
[2018-01-20] MEDS ORDERED: IV FLUID CONTINUATION 1,000 ML IV ONE (10:54)
--- NOTE | 2018-01-20 11:03 | P.OP ---
Date of Procedure: 01/20/18 Preoperative Diagnosis: History of perforated diverticula this Parastomal hernia Postoperative Diagnosis: History of perforated diverticulitis Parastomal hernia Procedure(s) Performed: Sigmoidoscopy Anesthesia: MAC Surgeon: Lucio Boyer Pathology: none sent Condition: stable Disposition: PACU Description of Procedure: Patient's placed on the endoscopy table lateral position. She received IV sedation. Digital rectal exam was performed. The flexible colonoscope was then placed patient anus and passed throughout the rectum. The rectal stump measured prostate 17 cm in length. There is known to any inflammation of the rectum. Scope was withdrawn for patient.
[2018-01-20] MEDS ORDERED: MULTIVITAMINS, THERA 1 EACH TAB PO SCH (12:00)
[2018-01-20] MEDS ORDERED: FOLIC ACID 1 MG TAB PO SCH (12:00)
--- NOTE | 2018-01-20 12:55 | P.PN ---
Subjective This is a 67-year-old female one of Dr. Price's with a previous medical history significant for CAD, paroxysmal atrial flutter ablation, asthma , history of chronic diastolic heart failure, GERD, diverticulitis, history of basal cell cancer removed from the face as well patient is known to have a history of colostomy left side secondary to diverticular disease, has parastomal hernia. Last hospitalization was in December 2016 secondary to severe abdominal pain and perforation ended up going for partial resection and unsuccessful reversal colostomy. . She did well post discharge from 2017, and she could not wait to see her surgeon at [place] shoulder ended up seeing Dr. Frances who recommended for her to have a treatment of the parastomal hernia, we were asked to see the patient for medical management today. Patient is laying down in bed in no apparent distress she denies any chest pain, shortness breath, she denies any abdominal pain, this time she has very low output in her stoma, patient did have an EKG that showed normal sinus rhythm without evidence of acute ST-T wave changes, she did have an echocardiogram that was done at the beginning of the month that showed normal ejection fraction with mild mitral regurgitation and tricuspid regurgitation. Patient is going for moderate risk surgery there is no Indication for the proposed surgical intervention at this point in time. 01/20: Patient was evaluated today laying down in bed. She denies any shortness of breath of chest pain. She is still having some abdominal discomfort and very little output from her stoma. She is scheduled with Dr. Boyer to undergo a proctostomy to see the length of the rectal stump, if suitable, she will go for her reversal of her colostomy. She has been NPO since yesterday. She remains afebrile, vital signs are stable, labs are unremarkable. Objective - Vital Signs Vital signs: Vital Signs Temp 98.4 F 01/20/18 07:00 Pulse 82 01/20/18 07:17 Resp 18 01/20/18 07:00 BP 133/76 01/20/18 07:00 Pulse Ox 92 L 01/20/18 00:12 Intake & Output 01/19/18 01/20/18 01/20/18 18:59 06:59 18:59 Intake Total 300 937.5 100 Balance 300 937.5 100 Weight 78 kg Intake: IV 100 Intake, IV Titration 300 937.5 Amount Sodium Chloride 0.9% 1, 300 937.5 000 ml @ 75 mls/hr IV . [id number] [facility] Rx#:[id number] Other: Voiding Method Toilet Toilet # Voids 2 - Exam - Constitutional General appearance: average body habitus, no acute distress - EENT Eyes: anicteric sclerae, EOMI, PERRLA, no ptosis, no scleral icterus, normal appearance ENT: hearing grossly normal, NA/AT, normal oropharynx, no thrush Ears: bilateral: normal - Neck Neck: no lymphadenopathy, normal ROM, no rigidity, no stridor, no thyromegaly Carotids: bilateral: upstroke normal Thyroid: bilateral: normal size - Respiratory Respiratory: bilateral: diminished, negative: dullness, rales, rhonchi, wheezing , prolonged expiration, prolonged inspiration - Cardiovascular Rhythm: regular Heart sounds: normal: S1, S2 Abnormal Heart Sounds: no systolic murmur, no S3 Gallop, no S4 Gallop - Gastrointestinal General gastrointestinal: normal bowel sounds, soft, no splenomegaly, no tenderness, no umbilical hernia, ventral hernia (parastomal hernia.) - Integumentary Integumentary: normal, normal turgor - Neurologic Neurologic: CNII-XII intact - Musculoskeletal Musculoskeletal: gait normal, strength equal bilaterally - Psychiatric Psychiatric: A&O x's 3, appropriate affect, intact judgment & insight - Labs CBC & Chem 7: 01/18/18 23:30 01/18/18 23:30 Assessment and Plan Assessment: 1. Parastomal hernia. Patient has had this for quite sometime. She is asking for a definitive treatment for and the patient was scheduled to go for surgical intervention today, patient has been off her Eliquis, EKG was reviewed as well as echo cardiogram, patient is going for moderate risk surgery, there is no complication for the proposed surgical intervention at this point, surgery [facility] risk for a few complications that the patient is aware often willing to proceed. 2. mild chronic persistent asthma on maintenance prednisone 5 mg daily along with with Symbicort and albuterol nebulizer stable, follows with outpatient Dr. Tyler , we'll continue secondary to milligram at bedtime. 3 . Paroxysmal atrial fibrillation currently in sinus rhythm. Continue Tambocor 50 mg orally once every day, continue to hold Eliquis until after surgical intervention, continue with Cardizem 120 mg orally once every day. 4. chronic pain syndrome. We will continue with [place], and gabapentin 100 mg at bedtime, monitor the patient very closely. 5. Hypertension. Continue patient on Cardizem CD 120 mg orally once every day. 6. severe GERD and hiatal hernia. We will continue patient on PPI. 7. DVT prophylaxis. Bilateral knee-high AUGUSTINE hose, and resume Eliquis 24 hours post surgery. 8. Thanks for the consult we'll follow with you. The patient was seen and evaluated by Dr. Talamantes, plan, assessment, and medications were all discussed and directed by Dr. Talamantes, Ivette Redding [facility] acting as a scribe.
--- NOTE | 2018-01-20 14:29 | P.DS ---
Providers Date of admission: 01/19/18 03:08 Expected date of discharge: 01/20/18 Attending physician: Lucio Boyer Consults: 01/19/18 10:21 Consult Physician Urgent Consulting Provider: Gabbie Mcmillan Consult Reason/Comments: medical management Do you want consulting provider notified?: Yes Primary care physician: [facility] Course: 67-year-old female presented to the emergency room with complaint of having abdominal pain due to an incarcerated parastomal hernia patient has a history of incarcerated parastomal hernia has had several hospitalizations due to pain in the hernia area patient had a previous Tho's procedure by Dr. Herndon January 20 patient underwent a sigmoidoscopy to evaluate the rectal stump. The rectal stump measured 17 cm in length information of the rectum not noted scope was withdrawn the plan will be for the patient to be discharged today returning on Friday to have a reversal of colostomy. Patient is to be maintained on a clear liquid diet with nothing to eat or drink after midnight on to return on Friday for the surgery Impression discharge diagnosis 1. Parastomal hernia. . She is asking for a definitive treatment for and the patient was scheduled to go for surgical intervention today, patient has been off her Eliquis, EKG was reviewed as well as echo cardiogram, patient is going for moderate risk surgery, 2. mild chronic persistent asthma 3 . Paroxysmal atrial fibrillation currently in sinus rhythm. Continue Tambocor 50 mg orally once every day, continue to hold Eliquis until after surgical intervention, continue with Cardizem 120 mg orally once every day. 4. chronic pain syndrome. continue with [place], and gabapentin 100 mg at bedtime 5. Hypertension. 6. severe GERD and hiatal hernia. continue patient on PPI. The above impression and plan of care have been discussed and directed by signing physician. Angelika Borja nurse practitioner acting as scribe for signing physician. Patient Condition at Discharge: Good Plan - Discharge Summary Discharge Rx Participant: Yes New Discharge Prescriptions: Discontinued Apixaban [Eliquis] 5 mg PO DAILY No Action Albuterol Sulfate [Proventil Hfa] 2 puff INHALATION RT-Q6H PRN PRN Reason: Shortness Of Breath Budesonide/Formoterol Fumarate [Symbicort 160-4.5 Mcg Inhaler] 2 puff INHALATION RT-BID Albuterol Nebulized [Ventolin Nebulized] 2.5 mg INHALATION RT-TID PRN PRN Reason: Shortness Of Breath Montelukast [Singulair] 10 mg PO HS Diltiazem HCl [Cartia Xt] 180 mg PO DAILY #30 cap HYDROcodone/APAP 7.5-325MG [[place] 7.5-325] 1 tab PO Q6H PRN #30 tab PRN Reason: Pain Calcium Carbonate [Calcium] 600 mg PO BID Cholecalciferol [Vitamin D3] 1,000 unit PO DAILY Cyclobenzaprine [Flexeril] 10 mg PO HS Flecainide [Tambocor] 50 mg PO DAILY Folic Acid 1 mg PO DAILY Gabapentin [Neurontin] 100 mg PO HS Multivitamins, Thera [Multivitamin (formulary)] 1 tab PO DAILY Polyethylene Glycol 3350 [Miralax] 17 gm PO DAILY PRN PRN Reason: Constipation predniSONE 5 mg PO DAILY Turmeric 1160mg 1,160 mg PO TID Discharge Medication List Albuterol Nebulized [Ventolin Nebulized] 2.5 mg INHALATION RT-TID PRN 07/22/16 [ History] Albuterol Sulfate [Proventil Hfa] 2 puff INHALATION RT-Q6H PRN 07/22/16 [History ] Budesonide/Formoterol Fumarate [Symbicort 160-4.5 Mcg Inhaler] 2 puff INHALATION RT-BID 07/22/16 [History] Montelukast [Singulair] 10 mg PO HS 07/22/16 [History] Diltiazem HCl [Cartia Xt] 180 mg PO DAILY #30 cap 10/25/16 [Rx] HYDROcodone/APAP 7.5-325MG [[place] 7.5-325] 1 tab PO Q6H PRN #30 tab 10/25/16 [Rx ] Calcium Carbonate [Calcium] 600 mg PO BID 01/19/18 [History] Cholecalciferol [Vitamin D3] 1,000 unit PO DAILY 01/19/18 [History] Cyclobenzaprine [Flexeril] 10 mg PO HS 01/19/18 [History] Flecainide [Tambocor] 50 mg PO DAILY 01/19/18 [History] Folic Acid 1 mg PO DAILY 01/19/18 [History] Gabapentin [Neurontin] 100 mg PO HS 01/19/18 [History] Multivitamins, Thera [Multivitamin (formulary)] 1 tab PO DAILY 01/19/18 [History ] Polyethylene Glycol 3350 [Miralax] 17 gm PO DAILY PRN 01/19/18 [History] Turmeric 1160mg 1,160 mg PO TID 01/19/18 [History] predniSONE 5 mg PO DAILY 01/19/18 [History] Follow up Appointment(s)/Referral(s): Lindsey Price MD [Primary Care Provider] - 1-2 days Lucio Boyer MD [STAFF PHYSICIAN] - 3 Days Activity/Diet/Wound Care/Special Instructions: Stay on a clear liquid diet until at midnight and nothing to eat or drink elquis to be on hold until surgery is completed Discharge Disposition: HOME SELF-CARE
[2018-01-20 16:40] VITALS: BP 149/76; PULSE 82; TEMP 98.3
== END 2018-01-20 16:15 | disposition home or self-care (01) | DRG 394 ==
LOC: EC 20:27 → 4SSUR 01-19 03:08 → UNDOADMIN 01-19 03:08 → 4SSUR 01-19 13:16
PROVIDERS: ADMIT Surgery; ATTEND Surgery
PROC: 0DJD8ZZ Inspection of Lower Intestinal Tract, Via Natural or Artificial Opening Endoscopic (ICD-10-PCS; principal; 2018-01-19)
DX: K43.3 Parastomal hernia with obstruction, without gangrene (principal); I50.32 Chronic diastolic (congestive) heart failure; G89.4 Chronic pain syndrome; I11.0 Hypertensive heart disease with heart failure; I25.10 Atherosclerotic heart disease of native coronary artery without angina pectoris; I48.0 Paroxysmal atrial fibrillation; J45.909 Unspecified asthma, uncomplicated; K21.9 Gastro-esophageal reflux disease without esophagitis; K44.9 Diaphragmatic hernia without obstruction or gangrene; K57.30 Diverticulosis of large intestine without perforation or abscess without bleeding; M81.0 Age-related osteoporosis without current pathological fracture; Z79.01 Long term (current) use of anticoagulants; Z79.51 Long term (current) use of inhaled steroids; Z79.52 Long term (current) use of systemic steroids; Z79.899 Other long term (current) drug therapy; Z80.0 Family history of malignant neoplasm of digestive organs; Z82.5 Family history of asthma and other chronic lower respiratory diseases; Z85.828 Personal history of other malignant neoplasm of skin; Z87.442 Personal history of urinary calculi; Z90.49 Acquired absence of other specified parts of digestive tract; Z93.3 Colostomy status; Z98.0 Intestinal bypass and anastomosis status; Z98.42 Cataract extraction status, left eye; Z88.5 Allergy status to narcotic agent; Z88.8 Allergy status to other drugs, medicaments and biological substances
CPT/HCPCS: 36415; 45330; 74018; 74177; 80053; 85025; 94640; 94760; 99285

== ENCOUNTER 2018-01-23 05:52 | Inpatient (IN) | payer MEDICARE ==
[2018-01-21 17:02] VITALS: BMI 29.5
[~2018-01-23 05:52] MED LIST changes: -ACETAMINOPHEN IV (For NPO) 1,000 MG in EMPTY BAG 1 BAG IVPB ONE; -ALVIMOPAN 12 MG CAPSULE PO ONE; -HEPARIN SODIUM,PORCINE 5,000 UNIT/ML 1 ML VIAL SQ ONE; -SCOPOLAMINE 1.5MG/72HR PATCH TRANSDERM STA; -ceFAZolin 2 GM in SODIUM CHLORIDE 0.9% 100 ML IVPB ONE; +ceFAZolin IN SWFI 2 GM/20 ML SYRINGE IVP ONE
[2018-01-23] MEDS ORDERED: fentaNYL (PF) 50 MCG/ML 2 ML AMP IV PRN (05:55)
[2018-01-23] MEDS ORDERED: MIDAZOLAM 2 MG/2 ML VIAL IV PRN (05:55)
[2018-01-23] MEDS ORDERED: LIDOCAINE 1% 20 ML VIAL (10MG/ML) FOR IV START INTRADERMA ONE (06:45)
[2018-01-23] MEDS: LACTATED RINGERS 1,000 ML IV SCH ×7 (06:45→23:31)
[2018-01-23 06:46] LABS: Glucose,Whole Blood 109 mg/dL (75-99)
[2018-01-23] MEDS: HEPARIN SODIUM,PORCINE 5,000 UNIT/ML 1 ML VIAL SQ ONE ×2 (06:52→17:46)
[2018-01-23] MEDS: ONDANSETRON 4 MG/2 ML VIAL IVP ONE ×2 (06:52→17:46)
[2018-01-23] MEDS: DEXAMETHASONE SOD PHOSPHATE 10 MG/ML 1 ML VIAL IV ONE ×2 (06:52→17:46)
[2018-01-23] MEDS ORDERED: ROCURONIUM BROMIDE 10 MG/ML 10 ML VIAL IV ONE (08:04)
[2018-01-23] MEDS ORDERED: GLYCOPYRROLATE 0.2 MG/ML 2 ML VIAL ONE (08:04)
[2018-01-23] MEDS ORDERED: NEOSTIGMINE 1 MG/ML 10 ML VIAL ONE (08:04)
[2018-01-23] MEDS ORDERED: LIDOCAINE 1% INJ 10MG/ML (20 ML MDV) ONE (08:04)
[2018-01-23] MEDS ORDERED: HYDROmorphone (PF) 1 MG/ML ONE (08:04)
[2018-01-23] MEDS ORDERED: PHENYLEPHRINE-0.9% NACL SYG 1 MG/10 ML SYRINGE ONE (08:04)
[2018-01-23] MEDS ORDERED: fentaNYL (PF) 50 MCG/ML 2 ML AMP ONE (08:04)
[2018-01-23] MEDS ORDERED: SUCCINYLCHOLINE CHLORIDE 100 MG/5 ML SYR IV ONE (08:04)
[2018-01-23] MEDS ORDERED: KETOROLAC 30 MG/ML 1 ML VIAL ONE (08:04)
[2018-01-23] MEDS ORDERED: PROPOFOL 10 MG/ML 20 ML VIAL IV ONE (08:04)
[2018-01-23] MEDS ORDERED: MIDAZOLAM 2 MG/2 ML VIAL ONE (08:04)
[2018-01-23] MEDS ORDERED: LACTATED RINGERS 1,000 ML IV ONE ×2 (09:09→10:00)
[2018-01-23 13:15] LABS: Basophils % (A) 0 %; Eosinophils % (A) 1 %; HCT 41.1 % (34.0-46.0); HGB 13.4 gm/dL (11.4-16.0); Hypochromasia Slight; Lymphocytes # (A) 0.5 k/uL (1.0-4.8); Lymphocytes % (A) 8 %; MCHC 32.5 g/dL (31.0-37.0); MCV 95.2 fL (80.0-100.0); Mean Platelet Volume 6.7; Monocytes # (A) 0.4 k/uL (0-1.0); Monocytes % (A) 7 %; Neutrophils # (A) 4.9 k/uL (1.3-7.7); Neutrophils % (A) 84 %; Platelet Count 214 k/uL (150-450); RBC 4.32 m/uL (3.80-5.40); RDW 14.6 % (11.5-15.5); WBC 5.8 k/uL (3.8-10.6)
--- NOTE | 2018-01-23 14:35 | P.ONQ ---
Anesthesiology Proc Note - PNB - Peripheral Nerve Block Performed Bilateral Transversus Abdominis Single Time Out Performed: Yes Procedure Start Time: 11:43 Procedure Stop Time: :53 Indication: Acute Post-Operative Pain, Dx/Pain Location (Bilateral Abdominal Pain), Requested by physician Preparation: Sterile Prep Position: Supine Needle Size: 100mm (4") Needle Gauge: 21 Technique: Ultrasound Injectate: 0.5% Ropivacaine (see comment for volume) (15ml each side) Blood Aspirated: No Pain Paresthesia on Injection Noted: No Resistance on Injection: Normal Events: Uneventful and Well Tolerated
[2018-01-23 14:52] LABS: Calcium 8.6 mg/dL (8.4-10.2); Potassium 3.7 mmol/L (3.5-5.1)
[2018-01-23] MEDS: HYDROmorphone 1 MG/ML 1 ML SYRINGE IVP PRN ×2 (15:30→22:29)
[2018-01-23] MEDS: D5-0.45% NACL WITH KCL 20MEQ/L 1,000 ML IV SCH (15:35)
--- NOTE | 2018-01-23 15:45 | P.GSHP ---
History of Present Illness H&P Date: 01/23/18 Chief Complaint: history of perforated diverticulitis,parastomal hernia this is a 67-year-old female who presents today for reversal of colostomy and repair of parastomal hernia. Patient has a history of previous perforated diverticulitis. She has a complex surgical history. Apparently she underwent Tho procedure with Dr. Garcia. She then subsequently underwent reversal of colostomy. At time of her surgery she is found have a leak at the anastomosis. The patient was given a colostomy again. The patient has had intermittent troubles with small bowel obstruction secondary to parastomal hernia and incarcerated small bowel within the hernia. Patient's had several admissions the hospital last several weeks. The patient presents today for reversal of colostomy repair of parastomal hernia. Patient's aware the risks of surgery including anastomotic leak and possible recurrent colostomy. Past Medical History Past Medical History: Atrial Fibrillation, Asthma, Coronary Artery Disease (CAD) , Cancer, Heart Failure, GERD/Reflux Additional Past Medical History / Comment(s): PARASTOMAL HERNIA, COLOSTOMY, compression fracture of the T-spine, osteoporosis, skin cancer, history of sepsis of urinary source, sigmoid diverticulosis, compression fracture of the L2 spine, compression fracture of the T12 spine, compression fracture of the T7 spine, HX KIDNEY STONE History of Any Multi-Drug Resistant Organisms: None Reported Past Surgical History: Appendectomy, Bowel Resection, Cardiac Ablation, Cholecystectomy, Tubal Ligation Additional Past Surgical History / Comment(s): CATARACT LEFT EYE WITH REPAIR OF MACULAR HOLE. Colonoscopy, 2014 bowel resection with colostomy, CYSTOSCOPY W/ RT RETROGRADE PYELOURETEROGRAM 10/21, ATTEMPTED REVERSAL OF COLOSTOMY Past Anesthesia/Blood Transfusion Reactions: No Reported Reaction Smoking Status: Never smoker - Past Family History Mother Family Medical History: Cancer Additional Family Medical History / Comment(s): COLON CANCER in Mother Father Family Medical History: No Reported History Brother(s) Family Medical History: No Reported History Son(s) Family Medical History: No Reported History Medications and Allergies Home Medications Medication Instructions Recorded Confirmed Type Albuterol Nebulized [Ventolin 2.5 mg INHALATION RT-TID PRN 07/22/16 01/23/18 History Nebulized] Albuterol Sulfate [Proventil Hfa] 2 puff INHALATION RT-Q6H PRN 07/22/16 History Budesonide/Formoterol Fumarate 2 puff INHALATION RT-BID 07/22/16 01/23/18 History [Symbicort 160-4.5 Mcg Inhaler] Montelukast [Singulair] 10 mg PO HS 07/22/16 01/23/18 History Diltiazem HCl [Cartia Xt] 180 mg PO DAILY #30 cap 10/25/16 01/23/18 Rx HYDROcodone/APAP 7.5-325MG [[place] 1 tab PO Q6H PRN #30 tab 10/25/16 01/23/18 Rx 7.5-325] Calcium Carbonate [Calcium] 600 mg PO BID 01/19/18 01/23/18 History Cholecalciferol [Vitamin D3] 1,000 unit PO DAILY 01/19/18 01/23/18 History Cyclobenzaprine [Flexeril] 10 mg PO HS 01/19/18 01/23/18 History Flecainide [Tambocor] 50 mg PO DAILY 01/19/18 01/23/18 History Folic Acid 1 mg PO DAILY 01/19/18 01/23/18 History Gabapentin [Neurontin] 100 mg PO HS 01/19/18 01/23/18 History Multivitamins, Thera [Multivitamin 1 tab PO DAILY 01/19/18 01/23/18 History (formulary)] Polyethylene Glycol 3350 [Miralax] 17 gm PO DAILY PRN 01/19/18 01/23/18 History Turmeric 1160mg 1,160 mg PO TID 01/19/18 01/23/18 History predniSONE 10 mg PO DAILY 01/21/18 01/23/18 History Allergies Allergy/AdvReac Type Severity Reaction Status Date / Time furosemide [From Lasix] Allergy Rash/Hives Verified 01/23/18 13:49 morphine AdvReac Hallucinati Verified 01/23/18 13:49 ons Surgical - Exam Vital Signs Temp Pulse Resp BP Pulse Ox 98.3 F 94 18 146/64 93 L 01/23/18 06:16 01/23/18 06:16 01/23/18 06:16 01/23/18 06:16 01/23/18 06:16 - General well developed, well nourished, no distress - Eyes PERRL - ENT normal pinna - Neck no masses - Respiratory normal expansion - Cardiovascular Rhythm: regular - Abdomen colostomy in left lower quadrant with large hernia Abdomen: soft Results - Labs 01/23/18 12:47 01/23/18 12:47 Abnormal Lab Results - Last 24 Hours (Table) 01/23/18 01/23/18 01/23/18 Range/Units 06:26 12:47 12:47 Lymphocytes # 0.5 L (1.0-4.8) k/uL Glucose 142 H (74-99) mg/dL POC Glucose (mg/dL) 109 H (75-99) mg/dL Diabetes panel 01/23/18 Range/Units 12:47 Sodium 141 (137-145) mmol/L Potassium 3.7 (3.5-5.1) mmol/L Chloride 103 (98-107) mmol/L Carbon Dioxide 29 (22-30) mmol/L BUN 16 (7-17) mg/dL Creatinine 1.00 (0.52-1.04) mg/dL Glucose 142 H (74-99) mg/dL Calcium 8.6 (8.4-10.2) mg/dL Calcium panel 01/23/18 Range/Units 12:47 Calcium 8.6 (8.4-10.2) mg/dL Pituitary panel 01/23/18 Range/Units 12:47 Sodium 141 (137-145) mmol/L Potassium 3.7 (3.5-5.1) mmol/L Chloride 103 (98-107) mmol/L Carbon Dioxide 29 (22-30) mmol/L BUN 16 (7-17) mg/dL Creatinine 1.00 (0.52-1.04) mg/dL Glucose 142 H (74-99) mg/dL Calcium 8.6 (8.4-10.2) mg/dL Adrenal panel 01/23/18 Range/Units 12:47 Sodium 141 (137-145) mmol/L Potassium 3.7 (3.5-5.1) mmol/L Chloride 103 (98-107) mmol/L Carbon Dioxide 29 (22-30) mmol/L BUN 16 (7-17) mg/dL Creatinine 1.00 (0.52-1.04) mg/dL Glucose 142 H (74-99) mg/dL Calcium 8.6 (8.4-10.2) mg/dL Assessment and Plan Assessment: parastomal hernia causing small bowel obstruction. History of diverticulitis. Patient will undergo reversal of colostomy with repair of parastomal hernia.
--- NOTE | 2018-01-23 15:51 | P.OP ---
Date of Procedure: 01/23/18 Preoperative Diagnosis: history of perforated diverticulitis Parastomal hernia Postoperative Diagnosis: perforated diverticulitis Peristomal hernia Incisional hernia Procedure(s) Performed: exploratory laparotomy Extensive lysis of adhesions Takedown of splenic flexure Partial omentectomy Reversal of colostomy Splenectomy Repair of incarcerated parastomal hernia Repair of incisional incarcerated hernia Anesthesia: LESVIA Surgeon: Lucio Boyer Estimated Blood Loss (ml): 100 Pathology: other (spleen, colon, omentum) Condition: stable Disposition: PACU Description of Procedure: the patient's placed on the operating table in the supine position. She received general anesthesia. Her abdomen was prepped and draped in usual sterile fashion. The abdomen was entered through midline incision. In the upper midportion of her scar there was incarcerated incisional hernia. There is incarcerated omentum within the hernia. The fascia was opened the hernia was reduced. Incarcerated omentum was transected with the instilled device. At this point the adhesions to the colostomy were divided with sharp dissection and then the colostomy was transected with the MARY stapler. There were extensive adhesions in the abdominal cavity. These were lysed using sharp dissection. Approximately 20 minutes of operative time used to lyse adhesions. The left colon was then mobilized. The splenic flexure was taken down with sharp dissection. The spleen was visualized. There was a small splenic capsule tear. It was decided to perform a splenectomy.in order to prevent any significant bleeding. The short gastric vessels were divided with the Enseal device. The splenic hilum was then transected between Latanya clamps and ligated with 0 silk ties. The left colon and transverse colon were mobilized. After suitable length of colon was created. The pursestring device was placed across the distal colon. The 25 mm EEA staplerantral was then placed into the colon and the anvil was secured with the pursestring.next the EEA stapler was placed in patient's rectum. The patient had a short rectal stump. The spike was driven through the distal rectum. The stapler was connected closed and then fired. The stapler was then withdrawn and 2 intact tissue rings were found. using a hbowel clampf the proximal colon was occludedand then using the rigid sigmoidoscope the rectum was insufflated with air. There is no evidence of any extravasation or leak at the anastomosis. The abdomen was inspected for bleeding. There is no bleeding seen. The abdomen was irrigated. The fascia was closed with looped #1 PDS suture. The incisional hernia was repaired with the fascia closure. The skin was closed with mundo. Next the colostomy site was dissected free. The colostomy colon was sent to pathology. The fascia was closed with 0 Vicryl suture. The skin was closed mundo. The sterile dressing was applied. The pervena wound system was applied to the incision. Patient top procedure well was sent to recovery in stable condition.
[2018-01-23] MEDS: KETOROLAC 30 MG/ML 1 ML VIAL IVP PRN (17:30)
[2018-01-23] MEDS ORDERED: ALBUTEROL NEBULIZED 2.5 MG/3 ML INHALATION PRN (20:06)
[2018-01-23] MEDS: ALBUTEROL NEBULIZED 2.5 MG/3 ML INHALATION PRN (22:17)
[2018-01-23] MEDS: ALVIMOPAN 12 MG CAPSULE PO SCH (22:28)
[2018-01-24] MEDS: D5-0.45% NACL WITH KCL 20MEQ/L 1,000 ML IV SCH ×3 (00:49→09:50)
[2018-01-24] MEDS: HYDROmorphone 1 MG/ML 1 ML SYRINGE IVP PRN ×5 (03:05→20:32)
[2018-01-24] MEDS: ALBUTEROL NEBULIZED 2.5 MG/3 ML INHALATION PRN ×4 (04:28→20:33)
[2018-01-24] MEDS: LACTATED RINGERS 1,000 ML IV SCH (06:00)
[2018-01-24] MEDS: SYMBICORT 160-4.5 MCG INHALER INHALATION SCH ×2 (08:19→20:33)
[2018-01-24] MEDS: KETOROLAC 30 MG/ML 1 ML VIAL IVP PRN ×2 (09:40→17:06)
[2018-01-24] MEDS: ALVIMOPAN 12 MG CAPSULE PO SCH ×2 (09:40→22:27)
[2018-01-24] MEDS: ONDANSETRON 4 MG/2 ML VIAL IVP PRN (09:41)
[2018-01-24] MEDS ORDERED: POLYETHYLENE GLYCOL 3350 17 GM POWD.PACK PO PRN (11:07)
[2018-01-24] MEDS: METOCLOPRAMIDE 5 MG/ML 2 ML VIAL IVP PRN (11:16)
--- NOTE | 2018-01-24 11:31 | P.CONS ---
History of Present Illness - Reason for Consult Consult date: 01/24/18 copd management - Chief Complaint SBO - History of Present Illness This is 67 years old female who presented for colostomy takedown and repair of parastomal hernia. Patient had a history of perforated diverticulitis with colostomy bag placement. Patient tolerated procedure well and currently denying chest pain, shortness breath, nausea, vomiting, abdominal pain, dizziness, lightheadedness or blurry vision. Patient stated that she is been diagnosed with COPD long time ago and has been on home oxygen only at the nighttime takes steroids 10 mg by mouth daily for more than 10 years and stated that her last dose was yesterday. Patient is denying tobacco, alcohol or drug abuse Review of Systems All 14 systems reviewed and negative except as above Past Medical History Past Medical History: Atrial Fibrillation, Asthma, Coronary Artery Disease (CAD) , Cancer, Heart Failure, GERD/Reflux Additional Past Medical History / Comment(s): PARASTOMAL HERNIA, COLOSTOMY, compression fracture of the T-spine, osteoporosis, skin cancer, history of sepsis of urinary source, sigmoid diverticulosis, compression fracture of the L2 spine, compression fracture of the T12 spine, compression fracture of the T7 spine, HX KIDNEY STONE History of Any Multi-Drug Resistant Organisms: None Reported Past Surgical History: Appendectomy, Bowel Resection, Cardiac Ablation, Cholecystectomy, Tubal Ligation Additional Past Surgical History / Comment(s): CATARACT LEFT EYE WITH REPAIR OF MACULAR HOLE. Colonoscopy, 2014 bowel resection with colostomy, CYSTOSCOPY W/ RT RETROGRADE PYELOURETEROGRAM 10/21, ATTEMPTED REVERSAL OF COLOSTOMY Past Anesthesia/Blood Transfusion Reactions: No Reported Reaction Smoking Status: Never smoker - Past Family History Mother Family Medical History: Cancer Additional Family Medical History / Comment(s): COLON CANCER in Mother Father Family Medical History: No Reported History Brother(s) Family Medical History: No Reported History Son(s) Family Medical History: No Reported History Medications and Allergies Home Medications Medication Instructions Recorded Confirmed Type Albuterol Nebulized [Ventolin 2.5 mg INHALATION RT-TID PRN 07/22/16 01/23/18 History Nebulized] Albuterol Sulfate [Proventil Hfa] 2 puff INHALATION RT-Q6H PRN 07/22/16 History Budesonide/Formoterol Fumarate 2 puff INHALATION RT-BID 07/22/16 01/23/18 History [Symbicort 160-4.5 Mcg Inhaler] Montelukast [Singulair] 10 mg PO HS 07/22/16 01/23/18 History Diltiazem HCl [Cartia Xt] 180 mg PO DAILY #30 cap 10/25/16 01/23/18 Rx HYDROcodone/APAP 7.5-325MG [[place] 1 tab PO Q6H PRN #30 tab 10/25/16 01/23/18 Rx 7.5-325] Calcium Carbonate [Calcium] 600 mg PO BID 01/19/18 01/23/18 History Cholecalciferol [Vitamin D3] 1,000 unit PO DAILY 01/19/18 01/23/18 History Cyclobenzaprine [Flexeril] 10 mg PO HS 01/19/18 01/23/18 History Flecainide [Tambocor] 50 mg PO DAILY 01/19/18 01/23/18 History Folic Acid 1 mg PO DAILY 01/19/18 01/23/18 History Gabapentin [Neurontin] 100 mg PO HS 01/19/18 01/23/18 History Multivitamins, Thera [Multivitamin 1 tab PO DAILY 01/19/18 01/23/18 History (formulary)] Polyethylene Glycol 3350 [Miralax] 17 gm PO DAILY PRN 01/19/18 01/23/18 History Turmeric 1160mg 1,160 mg PO TID 01/19/18 01/23/18 History predniSONE 10 mg PO DAILY 01/21/18 01/23/18 History Allergies Allergy/AdvReac Type Severity Reaction Status Date / Time furosemide [From Lasix] Allergy Rash/Hives Verified 01/23/18 15:53 morphine AdvReac Hallucinati Verified 01/23/18 15:53 ons Physical Exam Vitals: Vital Signs Temp Pulse Pulse Resp BP Pulse Ox 01/24/18 08:31 88 01/24/18 08:21 92 92 L 01/24/18 07:21 98.4 F 76 18 101/58 98 01/24/18 04:38 92 01/24/18 04:30 90 01/23/18 23:46 97.6 F 91 18 108/63 91 L 01/23/18 22:27 92 01/23/18 22:17 93 18 01/23/18 19:40 97.8 F 92 16 110/56 92 L 01/23/18 16:44 92 L 01/23/18 15:00 86 125/73 01/23/18 14:45 85 116/69 01/23/18 14:30 84 118/71 01/23/18 14:15 85 115/71 01/23/18 14:14 84 116/70 01/23/18 14:00 82 116/70 01/23/18 13:45 84 114/73 01/23/18 13:30 84 119/60 01/23/18 13:15 98.5 F 84 12 111/70 94 L 01/23/18 12:15 82 16 130/61 100 01/23/18 12:00 80 14 126/60 100 01/23/18 11:45 85 16 133/62 92 L 01/23/18 11:30 84 16 134/63 100 Intake and Output 01/23/18 01/24/18 01/24/18 22:59 06:59 14:59 Output Total 50 50 Balance -50 -50 Output: Urine 50 50 Other: Voiding Method Indwelling Catheter Indwelling Catheter Indwelling Catheter Weight 78.018 kg Gen.: in stated age, no acute distress Heart: Normal S1-S2 Lungs: Clear to auscultation bilaterally Abdomen: Soft, mild generalized tenderness, incision seems to be intact and dry dressing, hypoactive bowel sounds , no guarding or rebound Skin: No new rash Psych: Alert and oriented 3 Neuro: No focal deficit Results CBC & Chem 7: 01/23/18 12:47 01/23/18 12:47 Labs: Abnormal Lab Results - Last 24 Hours (Table) 01/23/18 01/23/18 Range/Units 12:47 12:47 Lymphocytes # 0.5 L (1.0-4.8) k/uL Glucose 142 H (74-99) mg/dL Assessment and Plan Assessment: 1. Status post exploratory laparotomy with extensive lysis of adhesions, takedown of splenic flexure, partial omentectomy, reversal of colostomy, splenectomy, repair of incarcerated parastomal hernia and repair of incisional incarcerated hernia. Will follow-up with surgery recommendation regarding diet , pain management and DVT prophylaxis. Encourage ambulation. Discontinue Jeter catheter per surgery recommendation. 2. Advanced COPD. Home oxygen dependent and steroid dependent. We'll resume patient's home dose at 10 mg daily continue with supplemental oxygen offer patient's breathing treatment scheduled and as needed continue her home regimen. 3. Hypertension. We will introduce blood pressure medication with holding parameters. 4. GERD. Continue PPI. 5. History of coronary artery disease. Seems to be compensated. 6. History of compression fracture of L2 and T12 and T7. Continue current pain management. We'll follow-up closely during this hospital stay. Thank you for your consultation
[2018-01-24] MEDS: MULTIVITAMINS, THERA 1 EACH TAB PO SCH (12:21)
[2018-01-24] MEDS: CHOLECALCIFEROL 1,000 UNIT TAB PO SCH (12:21)
[2018-01-24] MEDS: predniSONE 10 MG TAB PO SCH (12:21)
[2018-01-24] MEDS: FOLIC ACID 1 MG TAB PO SCH (12:21)
[2018-01-24] MEDS: CALCIUM CARBONATE 500 MG CHEWABLE PO SCH ×2 (12:21→22:27)
--- NOTE | 2018-01-24 12:22 | P.CNPUL ---
History of Present Illness Consult date: 01/24/18 Reason for consult: asthma, other Chief complaint: Management of patient's asthma, status post multiple surgical procedures History of present illness: Pulmonary consult dated 01/24/2018 67-year-old female who over asked to see because of her asthma. She was brought into the hospital to have a number of surgical procedures were done yesterday. She actually had an exploratory laparotomy with lysis of adhesions takedown of splenic flexure partial omentectomy reversal of colostomy splenectomy and repair of both parastomal hernia and incisional hernia. She does have a history of asthma for which I see her. She is getting her proper breathing medications and she is not really having any respiratory issues at this time. She denies any cough wheezing shortness of breath or phlegm production. Her major issue this time is pain in the abdomen because of the recent surgery was done yesterday. Today's postop day #1. Her past medical history is positive for atrial fibrillation chronic bronchial asthma CAD heart failure GERD previous extensive abdominal procedure with colostomy skin cancer urinary tract infection diverticular disease kidney stones and chronic back pain. Review of Systems A 14 point review of system is positive for abdominal pain from the surgical procedures performed yesterday. She denies any respiratory issues at this time. Past Medical History Past Medical History: Atrial Fibrillation, Asthma, Coronary Artery Disease (CAD) , Cancer, Heart Failure, GERD/Reflux Additional Past Medical History / Comment(s): PARASTOMAL HERNIA, COLOSTOMY, compression fracture of the T-spine, osteoporosis, skin cancer, history of sepsis of urinary source, sigmoid diverticulosis, compression fracture of the L2 spine, compression fracture of the T12 spine, compression fracture of the T7 spine, HX KIDNEY STONE History of Any Multi-Drug Resistant Organisms: None Reported Past Surgical History: Appendectomy, Bowel Resection, Cardiac Ablation, Cholecystectomy, Tubal Ligation Additional Past Surgical History / Comment(s): CATARACT LEFT EYE WITH REPAIR OF MACULAR HOLE. Colonoscopy, 2014 bowel resection with colostomy, CYSTOSCOPY W/ RT RETROGRADE PYELOURETEROGRAM 10/21, ATTEMPTED REVERSAL OF COLOSTOMY Past Anesthesia/Blood Transfusion Reactions: No Reported Reaction Smoking Status: Never smoker - Past Family History Mother Family Medical History: Cancer Additional Family Medical History / Comment(s): COLON CANCER in Mother Father Family Medical History: No Reported History Brother(s) Family Medical History: No Reported History Son(s) Family Medical History: No Reported History Medications and Allergies Home Medications Medication Instructions Recorded Confirmed Type Albuterol Nebulized [Ventolin 2.5 mg INHALATION RT-TID PRN 07/22/16 01/23/18 History Nebulized] Albuterol Sulfate [Proventil Hfa] 2 puff INHALATION RT-Q6H PRN 07/22/16 History Budesonide/Formoterol Fumarate 2 puff INHALATION RT-BID 07/22/16 01/23/18 History [Symbicort 160-4.5 Mcg Inhaler] Montelukast [Singulair] 10 mg PO HS 07/22/16 01/23/18 History Diltiazem HCl [Cartia Xt] 180 mg PO DAILY #30 cap 10/25/16 01/23/18 Rx HYDROcodone/APAP 7.5-325MG [[place] 1 tab PO Q6H PRN #30 tab 10/25/16 01/23/18 Rx 7.5-325] Calcium Carbonate [Calcium] 600 mg PO BID 01/19/18 01/23/18 History Cholecalciferol [Vitamin D3] 1,000 unit PO DAILY 01/19/18 01/23/18 History Cyclobenzaprine [Flexeril] 10 mg PO HS 01/19/18 01/23/18 History Flecainide [Tambocor] 50 mg PO DAILY 01/19/18 01/23/18 History Folic Acid 1 mg PO DAILY 01/19/18 01/23/18 History Gabapentin [Neurontin] 100 mg PO HS 01/19/18 01/23/18 History Multivitamins, Thera [Multivitamin 1 tab PO DAILY 01/19/18 01/23/18 History (formulary)] Polyethylene Glycol 3350 [Miralax] 17 gm PO DAILY PRN 01/19/18 01/23/18 History Turmeric 1160mg 1,160 mg PO TID 01/19/18 01/23/18 History predniSONE 10 mg PO DAILY 01/21/18 01/23/18 History Allergies Allergy/AdvReac Type Severity Reaction Status Date / Time furosemide [From Lasix] Allergy Rash/Hives Verified 01/23/18 15:53 morphine AdvReac Hallucinati Verified 01/23/18 15:53 ons Physical Exam Osteopathic Statement: *. No significant issues noted on an osteopathic structural exam other than those noted in the History and Physical/Consult. Vitals: Vital Signs Temp Pulse Pulse Resp BP Pulse Ox 01/24/18 08:31 88 01/24/18 08:21 92 92 L 01/24/18 07:21 98.4 F 76 18 101/58 98 01/24/18 04:38 92 01/24/18 04:30 90 01/23/18 23:46 97.6 F 91 18 108/63 91 L 01/23/18 22:27 92 01/23/18 22:17 93 18 01/23/18 19:40 97.8 F 92 16 110/56 92 L 01/23/18 16:44 92 L 01/23/18 15:00 86 125/73 01/23/18 14:45 85 116/69 01/23/18 14:30 84 118/71 01/23/18 14:15 85 115/71 01/23/18 14:14 84 116/70 01/23/18 14:00 82 116/70 01/23/18 13:45 84 114/73 01/23/18 13:30 84 119/60 01/23/18 13:15 98.5 F 84 12 111/70 94 L Intake and Output 01/23/18 01/24/18 01/24/18 22:59 06:59 14:59 Output Total 50 50 Balance -50 -50 Output: Urine 50 50 Other: Voiding Method Indwelling Catheter Indwelling Catheter Indwelling Catheter Weight 78.018 kg No acute distress, oriented 3. HEENT examination is grossly unremarkable. Mucous membranes are moist. No oral lesions. Neck supple. Full range of motion. No adenopathy thyromegaly or neck vein distention. Cardiovascular examination reveals regular rhythm rate. S1-S2 normal. No S3 or S4. No discernible murmur noted. Lungs reveal clear breath sounds. Her sounds are equal bilaterally. No adventitious lung sounds including wheezes rhonchi or crackles. Abdomen soft and tender. No bowel sounds are heard. Extremities are intact. No cyanosis clubbing or edema. Skin is without rash or lesion. Neurologic examination is brief but nonfocal. Results - Laboratory Findings CBC and BMP: 01/23/18 12:47 01/23/18 12:47 Abnormal lab findings: Abnormal Labs 01/23/18 01/23/18 01/23/18 06:26 12:47 12:47 Lymphocytes # 0.5 L Glucose 142 H POC Glucose (mg/dL) 109 H - Diagnostic Findings Chest x-ray: report reviewed, image reviewed (Labs, x-rays and medications are reviewed.) Assessment and Plan Assessment: Assessment Postop day #1, status post exploratory laparotomy, lysis of adhesions, splenectomy, takedown of splenic flexure, partial omentectomy, reversal of colostomy, and repair of incisional and parastomal hernias. History of asthma, stable History of atrial fibrillation History of CAD History of skin cancer History of GERD History of heart failure Multiple other medical problems and comorbidities. Plan: Plan dated 01/24/2018 The patient's medications labs and x-rays are reviewed. Currently, from the asthma standpoint, she is doing well. We'll recommend that she continue on her asthma medications and using incentive parameter every hour while awake. In addition, we will have her do deep breathing coughing and clearing of any secretions. Additional recommendations and suggestions are forthcoming. Time with Patient: Greater than 30
--- NOTE | 2018-01-24 12:25 | P.PN ---
Subjective Progress Note Date: 01/24/18 Principal diagnosis: Stomal hernia Patient doing well today after parastomal hernia repair with reversal colostomy. No labs today thus far. Mild discomfort. She feels weak. No nausea or vomiting. Objective - Vital Signs Vital signs: Vital Signs Temp 98.4 F 01/24/18 07:21 Pulse 88 01/24/18 08:31 Resp 18 01/24/18 07:21 BP 101/58 01/24/18 07:21 Pulse Ox 92 L 01/24/18 08:21 Intake & Output 01/23/18 01/24/18 01/24/18 18:59 06:59 18:59 Intake Total 2600 Output Total 600 50 Balance 1999 - Weight 78.018 kg Intake: IV 2600 Output: Urine 300 50 Estimated Blood Loss 300 Other: Voiding Method Indwelling Catheter Indwelling Catheter - Exam Abdomen: Soft, nondistended, dressing intact, mild tenderness - Labs CBC & Chem 7: 01/23/18 12:47 01/23/18 12:47 Labs: Abnormal Lab Results - Last 24 Hours (Table) 01/23/18 01/23/18 Range/Units 12:47 12:47 Lymphocytes # 0.5 L (1.0-4.8) k/uL Glucose 142 H (74-99) mg/dL Assessment and Plan (1) Parastomal hernia Narrative/Plan: Continue clear liquids. Gradually increase activity levels. Check labs today and tomorrow. Current Visit: No Status: Acute Code(s): K43.5 - PARASTOMAL HERNIA WITHOUT OBSTRUCTION OR GANGRENE SNOMED Code(s): 374747487
[2018-01-24 13:24] LABS: Basophils % (A) 0 %; Eosinophils % (A) 0 %; HCT 29.9 % (34.0-46.0); Hypochromasia Slight; Lymphocytes # (A) 0.7 k/uL (1.0-4.8); Lymphocytes % (A) 5 %; MCH 30.4 pg (25.0-35.0); MCHC 31.7 g/dL (31.0-37.0); MCV 95.8 fL (80.0-100.0); Mean Platelet Volume 7.2; Monocytes # (A) 0.7 k/uL (0-1.0); Monocytes % (A) 5 %; Neutrophils # (A) 13.2 k/uL (1.3-7.7); Neutrophils % (A) 89 %; Platelet Count 186 k/uL (150-450); RBC 3.12 m/uL (3.80-5.40); WBC 14.8 k/uL (3.8-10.6)
[2018-01-24 13:28] LABS: HGB 9.5 gm/dL (11.4-16.0)
[2018-01-24 13:42] LABS: Calcium 7.9 mg/dL (8.4-10.2); Potassium 4.7 mmol/L (3.5-5.1)
[2018-01-24] MEDS: DILTIAZEM CD 180 MG CAP.ER.24H PO SCH (14:25)
[2018-01-24] MEDS: MONTELUKAST 10 MG TAB PO SCH (22:27)
[2018-01-24] MEDS: CYCLOBENZAPRINE 10 MG TAB PO SCH (22:27)
[2018-01-24] MEDS: GABAPENTIN 100 MG CAP PO SCH (22:27)
[2018-01-25] MEDS: D5-0.45% NACL WITH KCL 20MEQ/L 1,000 ML IV SCH ×4 (00:11→23:31)
[2018-01-25] MEDS: ALBUTEROL NEBULIZED 2.5 MG/3 ML INHALATION PRN ×4 (03:49→23:15)
[2018-01-25] MEDS: LACTATED RINGERS 1,000 ML IV SCH (05:58)
[2018-01-25] MEDS: HYDROmorphone 1 MG/ML 1 ML SYRINGE IVP PRN ×2 (06:02→16:01)
[2018-01-25 07:30] LABS: Basophils % (A) 0 %; Eosinophils % (A) 0 %; HCT 27.9 % (34.0-46.0); Lymphocytes # (A) 0.6 k/uL (1.0-4.8); Lymphocytes % (A) 5 %; MCH 30.7 pg (25.0-35.0); MCHC 32.4 g/dL (31.0-37.0); MCV 94.8 fL (80.0-100.0); Mean Platelet Volume 7.5; Monocytes # (A) 0.5 k/uL (0-1.0); Monocytes % (A) 4 %; Neutrophils # (A) 11.2 k/uL (1.3-7.7); Neutrophils % (A) 90 %; Platelet Count 192 k/uL (150-450); RBC 2.95 m/uL (3.80-5.40); RDW 14.9 % (11.5-15.5); WBC 12.4 k/uL (3.8-10.6)
[2018-01-25 07:43] LABS: Calcium 8.4 mg/dL (8.4-10.2); Potassium 4.6 mmol/L (3.5-5.1)
[2018-01-25] MEDS: SYMBICORT 160-4.5 MCG INHALER INHALATION SCH ×2 (08:26→19:18)
[2018-01-25] MEDS: CALCIUM CARBONATE 500 MG CHEWABLE PO SCH ×2 (10:51→20:20)
[2018-01-25] MEDS: METOCLOPRAMIDE 5 MG/ML 2 ML VIAL IVP PRN (10:52)
[2018-01-25] MEDS: CHOLECALCIFEROL 1,000 UNIT TAB PO SCH (10:52)
[2018-01-25] MEDS: KETOROLAC 30 MG/ML 1 ML VIAL IVP PRN (10:52)
[2018-01-25] MEDS: MULTIVITAMINS, THERA 1 EACH TAB PO SCH (10:53)
[2018-01-25] MEDS: ALVIMOPAN 12 MG CAPSULE PO SCH ×2 (10:53→20:20)
[2018-01-25] MEDS: FOLIC ACID 1 MG TAB PO SCH (10:53)
--- NOTE | 2018-01-25 10:57 | P.PN ---
Subjective Progress Note Date: 01/25/18 Principal diagnosis: Stomal hernia Patient complaining of heartburn today. Pain is less. She is out of bed in the chair currently. No flatus or bowel movement. Mild bloating. White blood cell count 12.4. Objective - Vital Signs Vital signs: Vital Signs Temp 97.5 F L 01/25/18 07:47 Pulse 96 01/25/18 08:41 Resp 18 01/25/18 07:47 BP 134/61 01/25/18 07:47 Pulse Ox 90 L 01/25/18 07:47 Intake & Output 01/24/18 01/25/18 01/25/18 18:59 06:59 18:59 Intake Total 1375 Output Total 250 Balance 1125 Intake: Intake, IV Titration 1375 Amount D5-0.45% NaCl with KCl 1375 20Meq/l 1,000 ml @ 125 mls/hr IV .Q8H [facility] Rx#: [id number] Output: Urine 250 Other: Voiding Method Indwelling Catheter Indwelling Catheter - Exam Abdomen: Soft, nondistended, incision clean and dry, mild tenderness - Labs CBC & Chem 7: 01/25/18 06:19 01/25/18 06:19 Labs: Abnormal Lab Results - Last 24 Hours (Table) 01/24/18 01/24/18 01/25/18 Range/Units 13:05 13:05 06:19 WBC 14.8 H 12.4 H (3.8-10.6) k/uL RBC 3.12 L 2.95 L (3.80-5.40) m/uL Hgb 9.5 L D 9.0 L (11.4-16.0) gm/dL Hct 29.9 L 27.9 L (34.0-46.0) % Neutrophils # 13.2 H 11.2 H (1.3-7.7) k/uL Lymphocytes # 0.7 L 0.6 L (1.0-4.8) k/uL Sodium (137-145) mmol/L Carbon Dioxide 31 H (22-30) mmol/L BUN 24 H (7-17) mg/dL Creatinine 1.09 H (0.52-1.04) mg/dL Glucose 158 H (74-99) mg/dL Calcium 7.9 L (8.4-10.2) mg/dL 01/25/18 Range/Units 06:19 WBC (3.8-10.6) k/uL RBC (3.80-5.40) m/uL Hgb (11.4-16.0) gm/dL Hct (34.0-46.0) % Neutrophils # (1.3-7.7) k/uL Lymphocytes # (1.0-4.8) k/uL Sodium 136 L (137-145) mmol/L Carbon Dioxide (22-30) mmol/L BUN 19 H (7-17) mg/dL Creatinine (0.52-1.04) mg/dL Glucose 124 H (74-99) mg/dL Calcium (8.4-10.2) mg/dL Assessment and Plan (1) Parastomal hernia Narrative/Plan: Add Pepcid for heartburn. Stay on sips only. Will remove Jeter catheter. Increase activity. Current Visit: No Status: Acute Code(s): K43.5 - PARASTOMAL HERNIA WITHOUT OBSTRUCTION OR GANGRENE SNOMED Code(s): 295668973
[2018-01-25] MEDS: predniSONE 10 MG TAB PO SCH (10:59)
[2018-01-25] MEDS: DILTIAZEM CD 180 MG CAP.ER.24H PO SCH (10:59)
--- NOTE | 2018-01-25 11:23 | P.PN ---
Subjective Progress Note Date: 01/25/18 Principal diagnosis: Status post abdominal surgery, asthma Progress note dated 01/25/2018 A 67-year-old female, who is postop day #2, status post exploratory laparotomy, lysis of adhesions, takedown of splenic flexure, splenectomy, reversal of colostomy, repair of parastomal incisional hernias, and partial omentectomy. The patient is doing well from my perspective. She does have a history of chronic bronchial asthma. I see her for that. She denies any chest tightness wheezing cough or shortness of breath she does have pain, primarily with the surgery was done. She is out of bed. She is working on her incentive spirometer. She is getting breathing treatments Singulair and Symbicort. Objective - Vital Signs Vital signs: Vital Signs Temp 97.5 F L 01/25/18 07:47 Pulse 96 01/25/18 08:41 Resp 18 01/25/18 07:47 BP 134/61 01/25/18 07:47 Pulse Ox 90 L 01/25/18 07:47 Intake & Output 01/24/18 01/25/18 01/25/18 18:59 06:59 18:59 Intake Total 1375 Output Total 250 Balance 1125 Intake: Intake, IV Titration 1375 Amount D5-0.45% NaCl with KCl 1375 20Meq/l 1,000 ml @ 125 mls/hr IV .Q8H [facility] Rx#: [id number] Output: Urine 250 Other: Voiding Method Indwelling Catheter Indwelling Catheter - Exam No acute distress, oriented 3. Not requiring any supplemental oxygen. HEENT examination is grossly unremarkable. Mucous membranes are moist. No oral lesions. Neck supple. Full range of motion. No adenopathy thyromegaly or neck vein distention. Cardiovascular examination reveals regular rhythm rate. S1-S2 normal. No S3 or S4. No discernible murmur noted. Lungs reveal clear breath sounds. Her sounds are equal bilaterally. No adventitious lung sounds including wheezes rhonchi or crackles. Abdomen tender on palpation. No bowel sounds noted. No masses. Extremities are intact. No cyanosis clubbing or edema. Skin is without rash or lesion. Neurologic examination is brief but nonfocal. - Labs CBC & Chem 7: 01/25/18 06:19 01/25/18 06:19 Labs: Abnormal Lab Results - Last 24 Hours (Table) 01/24/18 01/24/18 01/25/18 Range/Units 13:05 13:05 06:19 WBC 14.8 H 12.4 H (3.8-10.6) k/uL RBC 3.12 L 2.95 L (3.80-5.40) m/uL Hgb 9.5 L D 9.0 L (11.4-16.0) gm/dL Hct 29.9 L 27.9 L (34.0-46.0) % Neutrophils # 13.2 H 11.2 H (1.3-7.7) k/uL Lymphocytes # 0.7 L 0.6 L (1.0-4.8) k/uL Sodium (137-145) mmol/L Carbon Dioxide 31 H (22-30) mmol/L BUN 24 H (7-17) mg/dL Creatinine 1.09 H (0.52-1.04) mg/dL Glucose 158 H (74-99) mg/dL Calcium 7.9 L (8.4-10.2) mg/dL 01/25/18 Range/Units 06:19 WBC (3.8-10.6) k/uL RBC (3.80-5.40) m/uL Hgb (11.4-16.0) gm/dL Hct (34.0-46.0) % Neutrophils # (1.3-7.7) k/uL Lymphocytes # (1.0-4.8) k/uL Sodium 136 L (137-145) mmol/L Carbon Dioxide (22-30) mmol/L BUN 19 H (7-17) mg/dL Creatinine (0.52-1.04) mg/dL Glucose 124 H (74-99) mg/dL Calcium (8.4-10.2) mg/dL Assessment and Plan Assessment: Assessment Postop day #2, status post exploratory laparotomy, lysis of adhesions, splenectomy, takedown of splenic flexure, partial omentectomy, reversal of colostomy, and repair of incisional and parastomal hernias. History of asthma, stable History of atrial fibrillation History of CAD History of skin cancer History of GERD History of heart failure Multiple other medical problems and comorbidities. Plan: Plan dated 01/24/2018 The patient's medications labs and x-rays are reviewed. Currently, from the asthma standpoint, she is doing well. We'll recommend that she continue on her asthma medications and using incentive parameter every hour while awake. In addition, we will have her do deep breathing coughing and clearing of any secretions. Additional recommendations and suggestions are forthcoming. Plan dated 01/25/2018 The patient's doing well from the pulmonary standpoint. We continue to recommend deep breathing coughing and clearing of secretions. In addition, recommend hourly use of incentive spirometer. She will continue with her [facility] Symbicort and Singulair. Additional recommendations and suggestions are forthcoming. Labs are reviewed. White count 12.4, hemoglobin 9 hematocrit 27.9 and platelet count 192,000. Sodium 136 potassium 4.6 chloride 103 CO2 30 BUN and creatinine were 19 and 0.90. Labs x-rays a medications are all reviewed. Everything seems to be in order at this time. Time with Patient: Less than 30
[2018-01-25] MEDS: ONDANSETRON 4 MG/2 ML VIAL IVP PRN (16:00)
--- NOTE | 2018-01-25 16:55 | P.PN ---
Subjective Progress Note Date: 01/25/18 Principal diagnosis: colostomy take down Patient continued to be hemodynamically stable no major events reported by nursing staff patient's currently is denying chest pain, shortness breath, nausea, vomiting, abdominal pain and still have santana catheter in place Objective - Vital Signs Vital signs: Vital Signs Temp 99.1 F 01/25/18 15:54 Pulse 92 01/25/18 15:54 Resp 16 01/25/18 15:54 BP 159/69 01/25/18 15:54 Pulse Ox 95 01/25/18 15:54 Intake & Output 01/24/18 01/25/18 01/25/18 18:59 06:59 18:59 Intake Total 1375 Output Total 250 300 Balance 1125 -300 Intake: Intake, IV Titration 1375 Amount D5-0.45% NaCl with KCl 1375 20Meq/l 1,000 ml @ 125 mls/hr IV .Q8H [facility] Rx#: [id number] Output: Urine 250 300 Other: Voiding Method Indwelling Catheter Indwelling Catheter - Exam Lungs : Clear to auscultation bilaterally Heart: Normal S1 and S2 Abdomen: Soft, mild generalized tenderness positive for wound VAC in place Skin: No new rash Psych: Alert and oriented at baseline mental status - Labs CBC & Chem 7: 01/25/18 06:19 01/25/18 06:19 Labs: Abnormal Lab Results - Last 24 Hours (Table) 01/25/18 01/25/18 Range/Units 06:19 06:19 WBC 12.4 H (3.8-10.6) k/uL RBC 2.95 L (3.80-5.40) m/uL Hgb 9.0 L (11.4-16.0) gm/dL Hct 27.9 L (34.0-46.0) % Neutrophils # 11.2 H (1.3-7.7) k/uL Lymphocytes # 0.6 L (1.0-4.8) k/uL Sodium 136 L (137-145) mmol/L BUN 19 H (7-17) mg/dL Glucose 124 H (74-99) mg/dL Assessment and Plan Assessment: 1. Status post exploratory laparotomy with extensive lysis of adhesions, takedown of splenic flexure, partial omentectomy, reversal of colostomy, splenectomy, repair of incarcerated parastomal hernia and repair of incisional incarcerated hernia. Will follow-up with surgery recommendation regarding diet , pain management and DVT prophylaxis. Encourage ambulation. Discontinue Santana catheter per surgery recommendation. 2. Advanced COPD. Home oxygen dependent and steroid dependent. We'll resume patient's home dose at 10 mg daily continue with supplemental oxygen offer patient's breathing treatment scheduled and as needed continue her home regimen. 3. Hypertension. We will introduce blood pressure medication with holding parameters. 4. GERD. Continue PPI. 5. History of coronary artery disease. Seems to be compensated. 6. History of compression fracture of L2 and T12 and T7. Continue current pain management. Patient seems to be improving overall would follow-up with general surgery recommendation
[2018-01-25] MEDS: GABAPENTIN 100 MG CAP PO SCH (20:19)
[2018-01-25] MEDS: MONTELUKAST 10 MG TAB PO SCH (20:20)
[2018-01-25] MEDS: CYCLOBENZAPRINE 10 MG TAB PO SCH (20:20)
[2018-01-25] MEDS: FAMOTIDINE 20 MG/2 ML VIAL IV SCH (23:27)
[2018-01-25] MEDS: HYDROcodone/APAP 7.5-325MG 1 EACH TAB PO PRN (23:27)
[2018-01-25] MEDS: IBUPROFEN 600 MG TAB PO SCH (23:28)
[2018-01-26] MEDS: FAMOTIDINE 20 MG/2 ML VIAL IV SCH ×2 (03:06→21:15)
[2018-01-26] MEDS: HYDROmorphone 1 MG/ML 1 ML SYRINGE IVP PRN ×5 (03:06→21:15)
[2018-01-26] MEDS: LACTATED RINGERS 1,000 ML IV SCH (04:21)
[2018-01-26] MEDS: SYMBICORT 160-4.5 MCG INHALER INHALATION SCH ×2 (07:04→21:33)
[2018-01-26] MEDS: ALBUTEROL NEBULIZED 2.5 MG/3 ML INHALATION PRN ×3 (07:04→21:33)
[2018-01-26] MEDS: CALCIUM CARBONATE 500 MG CHEWABLE PO SCH ×2 (09:10→21:14)
[2018-01-26] MEDS: ALVIMOPAN 12 MG CAPSULE PO SCH ×2 (09:10→21:14)
[2018-01-26] MEDS: IBUPROFEN 600 MG TAB PO SCH ×4 (09:10→23:30)
[2018-01-26] MEDS: CHOLECALCIFEROL 1,000 UNIT TAB PO SCH (09:11)
[2018-01-26] MEDS: predniSONE 10 MG TAB PO SCH (09:11)
[2018-01-26] MEDS: DILTIAZEM CD 180 MG CAP.ER.24H PO SCH (09:11)
[2018-01-26 09:26] LABS: Basophils % (A) 0 %; Eosinophils # (A) 0.3 k/uL (0-0.7); Eosinophils % (A) 2 %; HCT 25.4 % (34.0-46.0); Hypochromasia Slight; Lymphocytes # (A) 1.6 k/uL (1.0-4.8); Lymphocytes % (A) 13 %; MCH 29.9 pg (25.0-35.0); MCHC 31.3 g/dL (31.0-37.0); MCV 95.5 fL (80.0-100.0); Mean Platelet Volume 8.2; Monocytes # (A) 0.6 k/uL (0-1.0); Monocytes % (A) 5 %; Neutrophils % (A) 79 %; Platelet Count 198 k/uL (150-450); RBC 2.66 m/uL (3.80-5.40); RDW 14.9 % (11.5-15.5); WBC 12.8 k/uL (3.8-10.6)
[2018-01-26 09:39] LABS: Anion Gap 4 mmol/L; Blood Urea Nitrogen 16 mg/dL (7-17); Calcium 8.3 mg/dL (8.4-10.2); Carbon Dioxide 26 mmol/L (22-30); Chloride 107 mmol/L (98-107); Glucose 83 mg/dL (74-99); Potassium 4.6 mmol/L (3.5-5.1); Sodium 137 mmol/L (137-145)
[2018-01-26] MEDS ORDERED: PNEUMOCOCCAL VACC-PNEUMOVAX 23 25 MCG/0.5 ML VIAL IM ONE (10:17)
[2018-01-26] MEDS ORDERED: INFLUENZA VACCINE (6 MOS+) 60 MCG/0.5 ML SYRINGE IM ONE (10:17)
[2018-01-26] MEDS ORDERED: MENING VAC A,C,Y,W-135 DIP/PF 4 MCG/0.5 ML VIAL IM ONE (11:03)
[2018-01-26] MEDS ORDERED: HAEMOPH B POLY CONJ-TET TOX/PF 10 MCG/0.5 ML VIAL IM ONE (11:03)
--- NOTE | 2018-01-26 12:14 | P.PN ---
Subjective Progress Note Date: 01/26/18 67 -year-old female seen this morning at the bedside patient states has been up ambulating in the hallway not passing gas not having a bowel movement few bowel tones noted wound VAC to surgical incision site in place abdomen soft surgical tenderness appropriate Patient is postop January 23 exploratory laparotomy, extensive lysis of adhesions, takedown of splenic flexure, partial omentectomy, reversal of ostomy , repair of incarcerated peristomal hernia, repair of incisional incarcerated hernia, splenectomy for a perforated diverticulitis, peristomal hernia and incisional Objective - Vital Signs Vital signs: Vital Signs Temp 97.6 F 01/26/18 07:32 Pulse 89 01/26/18 11:04 Resp 16 01/26/18 07:32 BP 122/56 01/26/18 07:32 Pulse Ox 94 L 01/26/18 07:32 Intake & Output 01/25/18 01/26/18 01/26/18 18:59 06:59 18:59 Intake Total 1500 100 Output Total 600 1400 Balance 900 -1300 Intake: Intake, IV Titration 1500 Amount D5-0.45% NaCl with KCl 1500 20Meq/l 1,000 ml @ 125 mls/hr IV .Q8H [facility] Rx#: [id number] Oral 100 Output: Urine 600 1400 Other: Voiding Method Toilet - Exam Physical exam 67-year-old female resting in bed appears in no acute distress Lungs adequate air movement bilaterally Heart S1-S2 audible regular Abdomen wound VAC to surgical incision site soft surgical tenderness appropriate states no stool not passing gas ice chips only nausea no vomiting reportedly urinating no difficulty Extremities no edema - Labs CBC & Chem 7: 01/26/18 07:58 01/26/18 07:58 Labs: Abnormal Lab Results - Last 24 Hours (Table) 01/26/18 01/26/18 Range/Units 07:58 07:58 WBC 12.8 H (3.8-10.6) k/uL RBC 2.66 L (3.80-5.40) m/uL Hgb 8.0 L (11.4-16.0) gm/dL Hct 25.4 L (34.0-46.0) % Neutrophils # 10.0 H (1.3-7.7) k/uL Calcium 8.3 L (8.4-10.2) mg/dL Assessment and Plan Assessment: Impression History of a perforated diverticulitis History of peristomal hernia Postop January 23 exploratory laparotomy, extensive lysis of adhesions, takedown of splenic flexure, partial omentectomy, reversal of ostomy, splenectomy, repair of incarcerated peristomal hernia Repair of incisional incarcerated hernia History of compression fracture of L2 and T12 and T7 Advanced COPD home oxygen dependent and steroid dependent Hypertension Esophageal reflux Plan Continue patient on ice chips only till bowel function resumes Pain control Continue wound VAC as ordered Increase activity as tolerated DVT and GI prophylaxis Continue postop surgical care The above impression and plan of care have been discussed and directed by signing physician. Angelika Borja nurse practitioner acting as scribe for signing physician.
[2018-01-26] MEDS: MULTIVITAMINS, THERA 1 EACH TAB PO SCH (14:09)
[2018-01-26] MEDS: FOLIC ACID 1 MG TAB PO SCH (14:09)
[2018-01-26] MEDS: D5-0.45% NACL WITH KCL 20MEQ/L 1,000 ML IV SCH ×3 (14:10→23:31)
--- NOTE | 2018-01-26 14:31 | CDI ---
Last Revision, March 2017 Documentation Clarification Form Date: 01/26/2018 2:11:29 PM From: Christel Jett RN, CCDS Admit Date: 01/23/2018 5:52:00 AM Patient Name: Angelique Boyle Visit Number: [id number] Discharge Date: ATTENTION: The Clinical Documentation Specialists (CDI) and [facility] Coding Staff appreciate your assistance in clarifying documentation. Please respond to the clarification below the line at the bottom and electronically sign. The CDI & [facility] Coding staff will review the response and follow-up if needed. Please note: Queries are made part of the Legal Health Record. If you have any questions, please contact the author of this message via ITS. Lucio Suarez MD A small splenic capsule tear is documented in the operative note. Patients Admitting Diagnosis: History of perforated diverticulitis, Small bowel obstruction due to parastomal hernia, incisional hernia Post-Operative Diagnosis: Same Procedure performed: Takedown of splenic flexture, Splenectomy Extensive lysis of adhesions, Partial omentectomy, reversal of colostomy, Repair of incarcerated parastomal hernia, repair of incisional incarcerated hernia History/Risk Factors: Diverticulitis, Asthma, Clinical Indicators: The splenic flexure was taken down with sharp dissection. The spleen was visualized. There was a small splenic capsule tear. It was decided to perform a splenectomy in order to prevent any significant bleeding. Treatment: Takedown of splenic flexure, Splenectomy Monitor Labs In order to accurately reflect this patients severity of illness, please clarify if the post-operative diagnosis of small splenic capsule tear is: An expected post-procedural or post-surgical condition; Integral to the procedure; Inherent to the procedure; An unexpected post-procedural or post-surgical condition related to surgical care; Other, please specify Unable to determine Please continue to document in your progress notes in order to capture severity of illness and risk of mortality. Include clinical findings that support your diagnosis. MTDD
--- NOTE | 2018-01-26 14:58 | P.PN ---
Subjective Progress Note Date: 01/26/18 This is 67 years old female patient of Dr. Price who presented for colostomy takedown and repair of parastomal hernia by Dr. Boyer. Patient had a history of perforated diverticulitis with colostomy bag placement. Patient tolerated procedure well and currently denying chest pain, shortness breath, nausea, vomiting, abdominal pain, dizziness, lightheadedness or blurry vision. Patient stated that she is been diagnosed with COPD long time ago and has been on home oxygen only at the nighttime takes steroids 10 mg by mouth daily for more than 10 years and stated that her last dose was yesterday. Patient is denying tobacco, alcohol or drug abuse 01/25: Patient continued to be hemodynamically stable no major events reported by nursing staff patient's currently is denying chest pain, shortness breath, nausea, vomiting, abdominal pain and still have santana catheter in place. 01/26: White count is currently at 12.8 with hemoglobin of 8 down from initial of 13.4. Electrolytes are within normal limits. Vital signs are stable. Patient has been afebrile. At that was admitted yesterday by Dr. Mon for heartburn. She had her Santana catheter removed yesterday and she states she is voiding without difficulty. Pain is currently okay and nausea is gone. She is taking ice chips only. She does state she has gas but no bowel movement. Flecainide has been resumed wound VAC is in place. Patient to continue ice chips and increase activity. Review Of Systems: Constitutional: No fever, no chills, no night sweats. Mild generalized weakness. No daytime sleepiness. EENT: No headache. No blurred vision or double vision, no loss of vision. No loss of Hearing, no ringing in the ears, no dizziness. No nasal drainage or congestion. No epistaxis. No sore throat. Lungs: No shortness of breath, cough, no sputum production. No wheezing. Cardiovascular: No chest pain, no lower extremity edema. No palpitations. No paroxysmal nocturnal dyspnea. No orthopnea. No lightheadedness or dizziness. No syncopal episodes. Abdominal: + abdominal pain. No nausea, vomiting. No diarrhea. No BM. No bloody or tarry stools. Genitourinary: No dysuria, increased frequency, urgency. No urinary retention after Santana removed. Musculoskeletal: No myalgias. No muscle weakness, no gait dysfunction, no frequent falls. No back pain. No neck pain. Integumentary: No wounds, no lesions. No rash or pruritus. No unusual bruising. No change in hair or nails. Psychiatric: No depression. No anxiety. No mood swings. Endocrine: blood sugars controlled. No excessive sweating or thirst. No cold intolerance. No weight change. Objective - Vital Signs Vital signs: Vital Signs Temp 97.6 F 01/26/18 07:32 Pulse 89 01/26/18 07:32 Resp 16 01/26/18 07:32 BP 122/56 01/26/18 07:32 Pulse Ox 94 L 01/26/18 07:32 Intake & Output 01/25/18 01/26/18 01/26/18 18:59 06:59 18:59 Intake Total 1500 100 Output Total 600 1400 Balance 900 -1300 Intake: Intake, IV Titration 1500 Amount D5-0.45% NaCl with KCl 1500 20Meq/l 1,000 ml @ 125 mls/hr IV .Q8H [facility] Rx#: [id number] Oral 100 Output: Urine 600 1400 Other: Voiding Method Toilet - Exam Gen.: This is a 67-year-old female sitting in bed and appears to be comfortable and in no acute distress. Lungs : Clear to auscultation bilaterally Heart: Normal S1 and S2 Abdomen: Soft, mild generalized tenderness positive for wound VAC in place, Santana removed Skin: No new rash Psych: Alert and oriented at baseline mental status - Labs CBC & Chem 7: 01/26/18 07:58 01/26/18 07:58 Labs: Abnormal Lab Results - Last 24 Hours (Table) 01/26/18 01/26/18 Range/Units 07:58 07:58 WBC 12.8 H (3.8-10.6) k/uL RBC 2.66 L (3.80-5.40) m/uL Hgb 8.0 L (11.4-16.0) gm/dL Hct 25.4 L (34.0-46.0) % Neutrophils # 10.0 H (1.3-7.7) k/uL Calcium 8.3 L (8.4-10.2) mg/dL Assessment and Plan Plan: 1. Status post exploratory laparotomy with extensive lysis of adhesions, takedown of splenic flexure, partial omentectomy, reversal of colostomy, splenectomy, repair of incarcerated parastomal hernia and repair of incisional incarcerated hernia. Continue ice chips and advance diet as directed by general surgery. Continue current pain management and DVT prophylaxis with heparin subcu. Encourage ambulation. Discontinue Santana catheter per surgery recommendation. 2. Advanced COPD with chronic hypoxic respiratory failure and steroid dependent. Continue prednisone 10 mg daily continue with supplemental oxygen, DuoNeb treatments, Symbicort twice daily. 3. Hypertension. Continue Cardizem. 4. GERD. Continue Pepcid. 5. History of coronary artery disease. Seems to be compensated. 6. History of compression fracture of L2 and T12 and T7. Continue current pain management. Discharge plan: return home. Patient denies need for PT. Impression and plan of care have been directed as dictated by the signing physician. Sue Castro nurse practitioner acting as scribe for signing physician.
--- NOTE | 2018-01-26 17:03 | P.PN ---
Subjective Progress Note Date: 01/26/18 Principal diagnosis: S/P laparotomy, lysis of adhesions, splenectomy, takedown of splenic flexure, partial omentectomy, reversal of colostomy Progress note dated 01/25/2018 A 67-year-old female, who is postop day #2, status post exploratory laparotomy, lysis of adhesions, takedown of splenic flexure, splenectomy, reversal of colostomy, repair of parastomal incisional hernias, and partial omentectomy. The patient is doing well from my perspective. She does have a history of chronic bronchial asthma. I see her for that. She denies any chest tightness wheezing cough or shortness of breath she does have pain, primarily with the surgery was done. She is out of bed. She is working on her incentive spirometer. She is getting breathing treatments Singulair and Symbicort. On 01/26/2018 patient seen in follow-up on medical surgical floor. She is sitting up in the chair, in no acute distress, room air pulse ox is 94-98%, denies any shortness of breath, he is afebrile, hemodynamically stable, mid abdominal incision with previous the wound VAC, with scant amount of drainage. No fever or chills, as are clear to auscultation but patient is working on her incentive spirometry area. She has been ambulating in the hallway, has not passed any bowel movement yet. Patient is tolerating ice chips, no nausea or vomiting. Her asthma is stable. No acute complaints regarding her breathing. Today's labs were noted. Electrolytes and renal profile are within normal limits, W BC is 12.8, hemoglobin is 8.0. Objective - Vital Signs Vital signs: Vital Signs Temp 98.3 F 01/26/18 14:48 Pulse 92 01/26/18 14:48 Resp 16 01/26/18 14:48 BP 140/71 01/26/18 14:48 Pulse Ox 98 01/26/18 14:48 Intake & Output 01/25/18 01/26/18 01/26/18 18:59 06:59 18:59 Intake Total 1500 100 750 Output Total 600 1400 400 Balance 900 -1300 350 Intake: IV 750 D5-0.45% NaCl with KCl 750 20Meq/l 1,000 ml @ 125 mls/hr IV .Q8H [facility] Rx#: [id number] Intake, IV Titration 1500 Amount D5-0.45% NaCl with KCl 1500 20Meq/l 1,000 ml @ 125 mls/hr IV .Q8H [facility] Rx#: [id number] Oral 100 Output: Urine 600 1400 400 Other: Voiding Method Toilet - Exam No acute distress, oriented 3. Not requiring any supplemental oxygen. HEENT examination is grossly unremarkable. Mucous membranes are moist. No oral lesions. Neck supple. Full range of motion. No adenopathy thyromegaly or neck vein distention. Cardiovascular examination reveals regular rhythm rate. S1-S2 normal. No S3 or S4. No discernible murmur noted. Lungs reveal clear breath sounds. Her sounds are equal bilaterally. No adventitious lung sounds including wheezes rhonchi or crackles. Abdomen tender on palpation. No bowel sounds noted. No masses. Mid abdominal incision but is covered with a Prevena wound VAC dressing, with scant amount of drainage Extremities are intact. No cyanosis clubbing or edema. Skin is without rash or lesion. Neurologic examination is brief but nonfocal. - Labs CBC & Chem 7: 01/26/18 07:58 01/26/18 07:58 Labs: Abnormal Lab Results - Last 24 Hours (Table) 01/26/18 01/26/18 Range/Units 07:58 07:58 WBC 12.8 H (3.8-10.6) k/uL RBC 2.66 L (3.80-5.40) m/uL Hgb 8.0 L (11.4-16.0) gm/dL Hct 25.4 L (34.0-46.0) % Neutrophils # 10.0 H (1.3-7.7) k/uL Calcium 8.3 L (8.4-10.2) mg/dL Assessment and Plan Plan: Postop day #3, status post exploratory laparotomy, lysis of adhesions, splenectomy, takedown of splenic flexure, partial omentectomy, reversal of colostomy, and repair of incisional and parastomal hernias. History of asthma, stable History of atrial fibrillation History of CAD History of skin cancer History of GERD History of heart failure Multiple other medical problems and comorbidities. Plan: Continue encouraging deep breathing and coughing, continue incentive spirometry use, ambulation. Patient's asthma is stable. We did order influenza, as well as Pneumovax vaccine in addition to meningococcal vaccine ordered by the attending physician in view of patient's anatomical asplenia. This can be administered upon discharge. Otherwise patient remains stable and pulmonary perspective, we will follow the patient on as-needed basis. I performed a history & physical examination of the patient and discussed their management with my nurse practitioner, Norma Rios. I reviewed the nurse practitioner's note and agree with the documented findings and plan of care. Lung sounds are positive for clear breath sounds. The findings and the impression was discussed with the patient. I attest to the documentation by the nurse practitioner. Time with Patient: Less than 30
[2018-01-26] MEDS: GABAPENTIN 100 MG CAP PO SCH (21:15)
[2018-01-26] MEDS: CYCLOBENZAPRINE 10 MG TAB PO SCH (21:15)
[2018-01-26] MEDS: MONTELUKAST 10 MG TAB PO SCH (21:15)
[2018-01-26] MEDS: HEPARIN SODIUM,PORCINE 5,000 UNIT/ML 1 ML VIAL SQ SCH (21:15)
[2018-01-27] MEDS: HYDROmorphone 1 MG/ML 1 ML SYRINGE IVP PRN ×3 (00:44→11:33)
[2018-01-27] MEDS: ALVIMOPAN 12 MG CAPSULE PO SCH ×2 (08:09→21:23)
[2018-01-27] MEDS: FAMOTIDINE 20 MG/2 ML VIAL IV SCH ×2 (08:09→21:26)
[2018-01-27] MEDS: CALCIUM CARBONATE 500 MG CHEWABLE PO SCH ×2 (08:09→21:23)
[2018-01-27] MEDS: HYDROcodone/APAP 7.5-325MG 1 EACH TAB PO PRN ×3 (08:09→21:25)
[2018-01-27] MEDS: HEPARIN SODIUM,PORCINE 5,000 UNIT/ML 1 ML VIAL SQ SCH ×2 (08:09→21:26)
[2018-01-27] MEDS: FOLIC ACID 1 MG TAB PO SCH (08:09)
[2018-01-27] MEDS: CHOLECALCIFEROL 1,000 UNIT TAB PO SCH (08:09)
[2018-01-27] MEDS: DILTIAZEM CD 180 MG CAP.ER.24H PO SCH (08:10)
[2018-01-27] MEDS: predniSONE 10 MG TAB PO SCH (08:10)
[2018-01-27] MEDS: FLECAINIDE 50 MG TAB PO SCH (08:10)
[2018-01-27] MEDS: IBUPROFEN 600 MG TAB PO SCH ×4 (08:13→21:27)
[2018-01-27] MEDS: ALBUTEROL NEBULIZED 2.5 MG/3 ML INHALATION PRN ×2 (08:25→19:59)
[2018-01-27] MEDS: SYMBICORT 160-4.5 MCG INHALER INHALATION SCH ×2 (08:25→20:00)
--- NOTE | 2018-01-27 10:47 | P.PN ---
Subjective Progress Note Date: 01/27/18 67-year-old female sitting up in bed states did ambulate in the hallway once this morning. Wound VAC in place. States is not passing gas no stool no nausea no vomiting. Patient does report soreness at surgical incision site surgical dressings dry abdomen is soft nondistended postop January 23 exploratory laparotomy, extensive lysis of adhesions, takedown of splenic flexure, partial omentectomy, reversal of ostomy, repair of incarcerated peristomal hernia, repair of incisional incarcerated hernia, splenectomy for a perforated diverticulitis, peristomal hernia and incisional Objective - Vital Signs Vital signs: Vital Signs Temp 98.9 F 01/27/18 08:21 Pulse 88 01/27/18 08:37 Resp 18 01/27/18 08:21 BP 126/67 01/27/18 08:21 Pulse Ox 97 01/27/18 08:25 Intake & Output 01/26/18 01/27/18 01/27/18 18:59 06:59 18:59 Intake Total 750 Output Total 400 Balance 350 Intake: IV 750 D5-0.45% NaCl with KCl 750 20Meq/l 1,000 ml @ 125 mls/hr IV .Q8H [facility] Rx#: [id number] Output: Urine 400 Other: Voiding Method Toilet - Exam Physical exam 67-year-old female resting in bed appears in no acute distress states did ambulate in the hallway once morning Lungs adequate air movement bilaterally on room air no cough noted Heart S1-S2 audible regular Abdomen wound VAC to surgical incision site soft surgical tenderness appropriate states no stool not passing gas ice chips only no nausea vomiting reportedly urinating no difficulty Extremities no edema - Labs CBC & Chem 7: 01/26/18 07:58 01/26/18 07:58 Assessment and Plan Assessment: Impression History of a perforated diverticulitis History of peristomal hernia Postop January 23 exploratory laparotomy, extensive lysis of adhesions, takedown of splenic flexure, partial omentectomy, reversal of ostomy, splenectomy, repair of incarcerated peristomal hernia Repair of incisional incarcerated hernia History of compression fracture of L2 and T12 and T7 Advanced COPD home oxygen dependent and steroid dependent Hypertension Esophageal reflux Plan Continue patient on ice chips only till bowel function resumes Pain control Continue wound VAC as ordered Increase activity as tolerated DVT and GI prophylaxis Continue postop surgical care Repeat labs in the morning The above impression and plan of care have been discussed and directed by signing physician. Angelika Borja nurse practitioner acting as scribe for signing physician.
[2018-01-27] MEDS: MULTIVITAMINS, THERA 1 EACH TAB PO SCH (11:33)
[2018-01-27 11:56] LABS: Glucose,Whole Blood 113 mg/dL (75-99)
--- NOTE | 2018-01-27 12:09 | P.PN ---
Subjective Progress Note Date: 01/27/18 This is 67 years old female patient of Dr. Price who presented for colostomy takedown and repair of parastomal hernia by Dr. Boyer. Patient had a history of perforated diverticulitis with colostomy bag placement. Patient tolerated procedure well and currently denying chest pain, shortness breath, nausea, vomiting, abdominal pain, dizziness, lightheadedness or blurry vision. Patient stated that she is been diagnosed with COPD long time ago and has been on home oxygen only at the nighttime takes steroids 10 mg by mouth daily for more than 10 years and stated that her last dose was yesterday. Patient is denying tobacco, alcohol or drug abuse 01/25: Patient continued to be hemodynamically stable no major events reported by nursing staff patient's currently is denying chest pain, shortness breath, nausea, vomiting, abdominal pain and still have santana catheter in place. 01/26: White count is currently at 12.8 with hemoglobin of 8 down from initial of 13.4. Electrolytes are within normal limits. Vital signs are stable. Patient has been afebrile. At that was admitted yesterday by Dr. Mon for heartburn. She had her Santana catheter removed yesterday and she states she is voiding without difficulty. Pain is currently okay and nausea is gone. She is taking ice chips only. She does state she has gas but no bowel movement. Flecainide has been resumed wound VAC is in place. Patient to continue ice chips and increase activity. 02/27: Patient has been hemodynamically stable, afebrile, pulse ox 97% on room air. She denies shortness of breath. She has been up and walked twice today. She is on ice chips and gum. Patient states she does not feel hungry. Anticipate that diet will be advanced today by surgery. She is reaching 500 ml on IS. Wound vac remains in place. Pain controlled. Patient has been ordered for influenza and pneumococcal vaccines. Hib and meningeal coccal will be done as an outpatient at the [facility]. Review Of Systems: Constitutional: No fever, no chills, no night sweats. Mild generalized weakness. No daytime sleepiness. EENT: No headache. No blurred vision or double vision, no loss of vision. No loss of Hearing, no ringing in the ears, no dizziness. No nasal drainage or congestion. No epistaxis. No sore throat. Lungs: No shortness of breath, no cough, no sputum production. No wheezing. Cardiovascular: No chest pain, no lower extremity edema. No palpitations. No paroxysmal nocturnal dyspnea. No orthopnea. No lightheadedness or dizziness. No syncopal episodes. Abdominal: + abdominal pain. No nausea, vomiting. No diarrhea. No BM. No bloody or tarry stools. Genitourinary: No dysuria, increased frequency, urgency. No urinary retention after Santana removed. Musculoskeletal: No myalgias. No muscle weakness, no gait dysfunction, no frequent falls. No back pain. No neck pain. Integumentary: + wounds. No rash or pruritus. No unusual bruising. No change in hair or nails. Psychiatric: No depression. No anxiety. No mood swings. Endocrine: blood sugars controlled. No excessive sweating or thirst. No cold intolerance. No weight change. Objective - Vital Signs Vital signs: Vital Signs Temp 98.9 F 01/27/18 08:21 Pulse 88 01/27/18 08:37 Resp 18 01/27/18 08:21 BP 126/67 01/27/18 08:21 Pulse Ox 97 01/27/18 08:25 Intake & Output 01/26/18 01/27/18 01/27/18 18:59 06:59 18:59 Intake Total 750 Output Total 400 Balance 350 Intake: IV 750 D5-0.45% NaCl with KCl 750 20Meq/l 1,000 ml @ 125 mls/hr IV .Q8H [facility] Rx#: [id number] Output: Urine 400 - Exam Gen.: This is a 67-year-old female sitting in bed and appears to be comfortable and in no acute distress. Lungs : Clear to auscultation bilaterally Heart: Normal S1 and S2 Abdomen: Soft, mild generalized tenderness, hypoactive bowel sounds, positive for wound VAC in place, Santana removed Skin: No new rash Psych: Alert and oriented at baseline mental status, no neuro deficits - Labs CBC & Chem 7: 01/26/18 07:58 01/26/18 07:58 Labs: Abnormal Lab Results - Last 24 Hours (Table) 01/26/18 01/26/18 Range/Units 07:58 07:58 WBC 12.8 H (3.8-10.6) k/uL RBC 2.66 L (3.80-5.40) m/uL Hgb 8.0 L (11.4-16.0) gm/dL Hct 25.4 L (34.0-46.0) % Neutrophils # 10.0 H (1.3-7.7) k/uL Calcium 8.3 L (8.4-10.2) mg/dL Assessment and Plan Plan: 1. Status post exploratory laparotomy with extensive lysis of adhesions, takedown of splenic flexure, partial omentectomy, reversal of colostomy, splenectomy, repair of incarcerated parastomal hernia and repair of incisional incarcerated hernia. Continue ice chips and advance diet as directed by general surgery. Continue current pain management and DVT prophylaxis with heparin subcu. Encourage ambulation. 2. Advanced COPD with chronic hypoxic respiratory failure and steroid dependent. Continue prednisone 10 mg daily continue with supplemental oxygen, DuoNeb treatments, Symbicort twice daily. 3. Hypertension. Continue Cardizem. 4. GERD. Continue Pepcid. 5. History of coronary artery disease. Seems to be compensated. 6. History of compression fracture of L2 and T12 and T7. Continue current pain management. Discharge plan: return home. Impression and plan of care have been directed as dictated by the signing physician. Sue Castro nurse practitioner acting as scribe for signing physician.
[2018-01-27] MEDS: D5-0.45% NACL WITH KCL 20MEQ/L 1,000 ML IV SCH ×2 (14:02→18:31)
[2018-01-27] MEDS: CYCLOBENZAPRINE 10 MG TAB PO SCH (21:23)
[2018-01-27] MEDS: MONTELUKAST 10 MG TAB PO SCH (21:23)
[2018-01-27] MEDS: LACTATED RINGERS 1,000 ML IV SCH (21:26)
[2018-01-27] MEDS: GABAPENTIN 100 MG CAP PO SCH (21:34)
[2018-01-28] MEDS: D5-0.45% NACL WITH KCL 20MEQ/L 1,000 ML IV SCH ×3 (00:02→16:27)
[2018-01-28] MEDS: HYDROcodone/APAP 7.5-325MG 1 EACH TAB PO PRN ×6 (01:21→21:16)
[2018-01-28] MEDS: SYMBICORT 160-4.5 MCG INHALER INHALATION SCH ×2 (07:35→20:01)
[2018-01-28] MEDS: ALBUTEROL NEBULIZED 2.5 MG/3 ML INHALATION PRN ×3 (07:35→20:01)
[2018-01-28] MEDS: IBUPROFEN 600 MG TAB PO SCH ×4 (08:53→22:52)
[2018-01-28] MEDS: MULTIVITAMINS, THERA 1 EACH TAB PO SCH (08:53)
[2018-01-28] MEDS: ALVIMOPAN 12 MG CAPSULE PO SCH ×2 (08:54→21:15)
[2018-01-28] MEDS: FOLIC ACID 1 MG TAB PO SCH (08:54)
[2018-01-28] MEDS: CHOLECALCIFEROL 1,000 UNIT TAB PO SCH (08:54)
[2018-01-28] MEDS: CALCIUM CARBONATE 500 MG CHEWABLE PO SCH ×2 (08:54→21:15)
[2018-01-28] MEDS: HEPARIN SODIUM,PORCINE 5,000 UNIT/ML 1 ML VIAL SQ SCH ×2 (08:56→21:16)
[2018-01-28] MEDS: LACTATED RINGERS 1,000 ML IV SCH (08:56)
[2018-01-28] MEDS: predniSONE 10 MG TAB PO SCH (09:05)
[2018-01-28] MEDS: FLECAINIDE 50 MG TAB PO SCH (09:05)
[2018-01-28] MEDS: DILTIAZEM CD 180 MG CAP.ER.24H PO SCH (09:06)
[2018-01-28] MEDS: FAMOTIDINE 20 MG/2 ML VIAL IV SCH (09:06)
[2018-01-28 10:50] LABS: HCT 26.9 % (34.0-46.0); HGB 8.4 gm/dL (11.4-16.0); Hypochromasia Slight; MCH 29.8 pg (25.0-35.0); MCHC 31.4 g/dL (31.0-37.0); MCV 94.9 fL (80.0-100.0); Mean Platelet Volume 8.4; Platelet Count 261 k/uL (150-450); RBC 2.83 m/uL (3.80-5.40); RDW 14.8 % (11.5-15.5)
[2018-01-28 11:05] LABS: Albumin 2.7 g/dL (3.5-5.0); Calcium 9.1 mg/dL (8.4-10.2); Potassium 4.1 mmol/L (3.5-5.1); Total Bilirubin 0.5 mg/dL (0.2-1.3); Total Protein 5.2 g/dL (6.3-8.2)
[2018-01-28] MEDS ORDERED: SODIUM FERRIC GLUCONAT-SUCROSE 125 MG in SODIUM CHLORIDE 0.9% 100 ML IVPB ONE (11:09)
--- NOTE | 2018-01-28 13:51 | P.PN ---
Subjective Progress Note Date: 01/28/18 67-year-old female seen this morning just returned from having an x-ray of the abdomen done patient continues to report having a burning sensation to the abdomen. pervena [address] Patient states passing gas no stool. No reports of nausea vomiting. Abdomen soft not distended mild tenderness. States urinating no difficulty. White count this morning 13 hemoglobin 8.4 electrolytes within normal limits afebrile postop January 23 exploratory laparotomy, extensive lysis of adhesions, takedown of splenic flexure, partial omentectomy, reversal of ostomy, repair of incarcerated peristomal hernia, repair of incisional incarcerated hernia, splenectomy for a perforated diverticulitis, peristomal hernia and incisional Objective - Vital Signs Vital signs: Vital Signs Temp 98 F 01/28/18 08:00 Pulse 90 01/28/18 08:00 Resp 12 01/28/18 08:00 BP 115/67 01/28/18 08:00 Pulse Ox 98 01/27/18 23:57 Intake & Output 01/27/18 01/28/18 01/28/18 18:59 06:59 18:59 Intake Total 400 Balance 400 Weight 78.018 kg Intake: Oral 400 Other: Voiding Method Toilet Toilet - Exam Physical exam 67-year-old female resting in bed appears in no acute distress this returned from having an abdominal x-ray Lungs adequate air movement bilaterally on room air no cough noted Heart S1-S2 audible regular Abdomen wound VAC to surgical incision site soft surgical tenderness appropriate states no stool passing gas tolerating clear liquid diet no nausea vomiting reportedly urinating no difficulty Extremities no edema - Labs CBC & Chem 7: 01/28/18 08:19 01/28/18 08:19 Labs: Abnormal Lab Results - Last 24 Hours (Table) 01/28/18 01/28/18 Range/Units 08:19 08:19 WBC 13.0 H (3.8-10.6) k/uL RBC 2.83 L (3.80-5.40) m/uL Hgb 8.4 L (11.4-16.0) gm/dL Hct 26.9 L (34.0-46.0) % Total Protein 5.2 L (6.3-8.2) g/dL Albumin 2.7 L (3.5-5.0) g/dL Assessment and Plan Assessment: Impression History of a perforated diverticulitis History of peristomal hernia Postop January 23 exploratory laparotomy, extensive lysis of adhesions, takedown of splenic flexure, partial omentectomy, reversal of ostomy, splenectomy, repair of incarcerated peristomal hernia Repair of incisional incarcerated hernia History of compression fracture of L2 and T12 and T7 Advanced COPD home oxygen dependent and steroid dependent Hypertension Esophageal reflux Plan Clear liquid diet Pain control Continue wound VAC as ordered Increase activity as tolerated DVT and GI prophylaxis Continue postop surgical care Repeat labs in the morning The above impression and plan of care have been discussed and directed by signing physician. Angelika Borja nurse practitioner acting as scribe for signing physician.
--- NOTE | 2018-01-28 13:55 | P.PN ---
Subjective Progress Note Date: 01/28/18 This is 67 years old female patient of Dr. Price who presented for colostomy takedown and repair of parastomal hernia by Dr. Boyer. Patient had a history of perforated diverticulitis with colostomy bag placement. Patient tolerated procedure well and currently denying chest pain, shortness breath, nausea, vomiting, abdominal pain, dizziness, lightheadedness or blurry vision. Patient stated that she is been diagnosed with COPD long time ago and has been on home oxygen only at the nighttime takes steroids 10 mg by mouth daily for more than 10 years and stated that her last dose was yesterday. Patient is denying tobacco, alcohol or drug abuse 01/25: Patient continued to be hemodynamically stable no major events reported by nursing staff patient's currently is denying chest pain, shortness breath, nausea, vomiting, abdominal pain and still have santana catheter in place. 01/26: White count is currently at 12.8 with hemoglobin of 8 down from initial of 13.4. Electrolytes are within normal limits. Vital signs are stable. Patient has been afebrile. At that was admitted yesterday by Dr. Mon for heartburn. She had her Santana catheter removed yesterday and she states she is voiding without difficulty. Pain is currently okay and nausea is gone. She is taking ice chips only. She does state she has gas but no bowel movement. Flecainide has been resumed wound VAC is in place. Patient to continue ice chips and increase activity. 02/27: Patient has been hemodynamically stable, afebrile, pulse ox 97% on room air. She denies shortness of breath. She has been up and walked twice today. She is on ice chips and gum. Patient states she does not feel hungry. Anticipate that diet will be advanced today by surgery. She is reaching 500 ml on IS. Wound vac remains in place. Pain controlled. Patient has been ordered for influenza and pneumococcal vaccines. Hib and meningeal coccal will be done as an outpatient at the [facility]. 02/28: Patient remains afebrile, pulse ox 98% on 2 L nasal cannula. Capillary blood glucose running between 83 and 124. Diet has been advanced to a clear liquid. IV came out last night. Patient is drinking adequate fluids. She does complain of abdominal pain which was quite severe during the night and somewhat improved today. She is passing a lot of gas but no bowel movement. Abdominal x-ray ordered. Hemoglobin is 8.4 and one dose of Ferrlecit ordered. White count is at 13, electrolytes, renal function and liver function all within normal limits. Review Of Systems: Constitutional: No fever, no chills, no night sweats. Mild generalized weakness. No daytime sleepiness. EENT: No headache. No blurred vision or double vision. no dizziness. No nasal drainage or congestion. No epistaxis. No sore throat. Lungs: No shortness of breath, no cough, no sputum production. No wheezing. Cardiovascular: No chest pain, no lower extremity edema. No palpitations. No lightheadedness or dizziness. No syncopal episodes. Abdominal: + abdominal pain. No nausea, vomiting. No diarrhea. No BM. + flatus. No bloody or tarry stools. Genitourinary: No dysuria, increased frequency, urgency. No urinary retention after Santana removed. Musculoskeletal: No myalgias. No muscle weakness, no gait dysfunction, no frequent falls. No back pain. No neck pain. Integumentary: + wound w wound vac. No rash or pruritus. No unusual bruising. No change in hair or nails. Psychiatric: No depression. No anxiety. No mood swings. Endocrine: blood sugars controlled. No excessive sweating or thirst. No cold intolerance. No weight change. Objective - Vital Signs Vital signs: Vital Signs Temp 98.1 F 01/27/18 23:57 Pulse 92 01/28/18 07:45 Resp 18 01/27/18 23:57 BP 127/66 01/27/18 23:57 Pulse Ox 98 01/27/18 23:57 Intake & Output 01/27/18 01/28/18 01/28/18 18:59 06:59 18:59 Weight 78.018 kg Other: Voiding Method Toilet Toilet - Exam Gen.: This is a 67-year-old female sitting in bed and appears to be comfortable and in no acute distress. Lungs : Clear to auscultation bilaterally Heart: Normal S1 and S2 Abdomen: Soft, mild generalized tenderness, hypoactive bowel sounds, positive for wound VAC in place, Santana removed Skin: No new rash Psych: Alert and oriented x3 at baseline mental status, no neuro deficits - Labs CBC & Chem 7: 01/28/18 08:19 01/28/18 08:19 Labs: Abnormal Lab Results - Last 24 Hours (Table) 01/27/18 Range/Units 11:44 POC Glucose (mg/dL) 113 H (75-99) mg/dL Assessment and Plan Plan: 1. Status post exploratory laparotomy with extensive lysis of adhesions, takedown of splenic flexure, partial omentectomy, reversal of colostomy, splenectomy, repair of incarcerated parastomal hernia and repair of incisional incarcerated hernia. Diet advanced to clear liquids by general surgery. Continue current pain management and DVT prophylaxis with heparin subcu. Encourage ambulation. 2. Advanced COPD with chronic hypoxic respiratory failure and steroid dependent. Continue prednisone 10 mg daily continue with supplemental oxygen, DuoNeb treatments, Symbicort twice daily. 3. Hypertension. Continue Cardizem. 4. GERD. Continue Pepcid. 5. History of coronary artery disease. Seems to be compensated. 6. History of compression fracture of L2 and T12 and T7. Continue current pain management. 7. Acute blood loss anemia. Ferrlecit 1 dose ordered. Discharge plan: return home. Impression and plan of care have been directed as dictated by the signing physician. Sue Castro nurse practitioner acting as scribe for signing physician.
--- NOTE | 2018-01-28 14:44 | XR ---
2 view abdomen HISTORY: Pain and constipation, postop 2 views the abdomen on [address] chest abdomen pelvis 01/18/2018 Multiple sutures and surgical mundo are present. There is an possible drain or tube overlying the m idline. 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 Compression deformit y noted at T12. Bone mineralization is reduced. No evident bowel obstruction or pneumoperitoneum. Katarina g bases show probable atelectatic change as well as hiatal hernia. IMPRESSION: Postop changes. Nephrolithiasis.
[2018-01-28] MEDS ORDERED: FERROUS SULFATE 325 MG TAB PO SCH ×2 (15:15→21:00)
[2018-01-28] MEDS: MONTELUKAST 10 MG TAB PO SCH (21:15)
[2018-01-28] MEDS: GABAPENTIN 100 MG CAP PO SCH (21:15)
[2018-01-28] MEDS: CYCLOBENZAPRINE 10 MG TAB PO SCH (21:15)
[2018-01-28] MEDS: FAMOTIDINE 20 MG TAB PO SCH (21:15)
[2018-01-29] MEDS: HYDROcodone/APAP 7.5-325MG 1 EACH TAB PO PRN ×3 (00:28→14:59)
[2018-01-29] MEDS: LACTATED RINGERS 1,000 ML IV SCH (01:19)
[2018-01-29] MEDS: ALBUTEROL NEBULIZED 2.5 MG/3 ML INHALATION PRN (07:25)
[2018-01-29] MEDS: SYMBICORT 160-4.5 MCG INHALER INHALATION SCH (07:25)
[2018-01-29 09:25] VITALS: RESP 16
[2018-01-29] MEDS: FAMOTIDINE 20 MG TAB PO SCH (10:04)
[2018-01-29] MEDS: predniSONE 10 MG TAB PO SCH (10:04)
[2018-01-29] MEDS: CALCIUM CARBONATE 500 MG CHEWABLE PO SCH (10:04)
[2018-01-29] MEDS: ALVIMOPAN 12 MG CAPSULE PO SCH (10:04)
[2018-01-29] MEDS: IBUPROFEN 600 MG TAB PO SCH ×2 (10:05→14:59)
[2018-01-29] MEDS: FLECAINIDE 50 MG TAB PO SCH (10:05)
[2018-01-29] MEDS: HEPARIN SODIUM,PORCINE 5,000 UNIT/ML 1 ML VIAL SQ SCH (10:05)
[2018-01-29] MEDS: DILTIAZEM CD 180 MG CAP.ER.24H PO SCH (10:05)
[2018-01-29] MEDS: CHOLECALCIFEROL 1,000 UNIT TAB PO SCH (10:06)
--- NOTE | 2018-01-29 11:52 | P.PN ---
Subjective Progress Note Date: 01/29/18 67-year-old female seen this morning on rounds patient stated had 2 bowel movements this morning is passing gas reportedly tolerating a diet with no nausea, Discuss the discharge plan anticipate discharge tomorrow if medically stable. postop January 23 exploratory laparotomy, extensive lysis of adhesions, takedown of splenic flexure, partial omentectomy, reversal of ostomy, repair of incarcerated peristomal hernia, repair of incisional incarcerated hernia, splenectomy for a perforated diverticulitis, peristomal hernia and incisional Objective - Vital Signs Vital signs: Vital Signs Temp 98.0 F 01/29/18 08:30 Pulse 87 01/29/18 08:30 Resp 16 01/29/18 08:30 BP 132/62 01/29/18 08:30 Pulse Ox 96 01/29/18 08:30 Intake & Output 01/28/18 01/29/18 01/29/18 18:59 06:59 18:59 Intake Total 500 0 Balance 500 0 Intake: Oral 500 0 Other: Voiding Method Toilet - Exam Physical exam 67-year-old female resting in bed states just came back from walking in the hallway Lungs adequate air movement bilaterally sats are 96% on room air Heart S1-S2 regular Abdomen soft surgical tenderness appropriate no nausea no vomiting tolerating diet states had 2 bowel movements this morning prevena wound system in place Urinating no difficulty Extremities no edema - Labs CBC & Chem 7: 01/28/18 08:19 01/28/18 08:19 Assessment and Plan Assessment: Impression History of a perforated diverticulitis History of peristomal hernia Postop January 23 exploratory laparotomy, extensive lysis of adhesions, takedown of splenic flexure, partial omentectomy, reversal of ostomy, splenectomy, repair of incarcerated peristomal hernia Repair of incisional incarcerated hernia History of compression fracture of L2 and T12 and T7 Advanced COPD home oxygen dependent and steroid dependent Hypertension Esophageal reflux Plan Anticipate discharge tomorrow morning Pain control Continue wound VAC remove tomorrow morning Increase activity as tolerated DVT and GI prophylaxis Continue postop surgical care The above impression and plan of care have been discussed and directed by signing physician. Angelika Borja nurse practitioner acting as scribe for signing physician.
--- NOTE | 2018-01-29 11:56 | P.PN ---
Subjective Progress Note Date: 01/29/18 This is 67 years old female patient of Dr. Price who presented for colostomy takedown and repair of parastomal hernia by Dr. Boyer. Patient had a history of perforated diverticulitis with colostomy bag placement. Patient tolerated procedure well and currently denying chest pain, shortness breath, nausea, vomiting, abdominal pain, dizziness, lightheadedness or blurry vision. Patient stated that she is been diagnosed with COPD long time ago and has been on home oxygen only at the nighttime takes steroids 10 mg by mouth daily for more than 10 years and stated that her last dose was yesterday. Patient is denying tobacco, alcohol or drug abuse 01/25: Patient continued to be hemodynamically stable no major events reported by nursing staff patient's currently is denying chest pain, shortness breath, nausea, vomiting, abdominal pain and still have santana catheter in place. 01/26: White count is currently at 12.8 with hemoglobin of 8 down from initial of 13.4. Electrolytes are within normal limits. Vital signs are stable. Patient has been afebrile. At that was admitted yesterday by Dr. Mon for heartburn. She had her Santana catheter removed yesterday and she states she is voiding without difficulty. Pain is currently okay and nausea is gone. She is taking ice chips only. She does state she has gas but no bowel movement. Flecainide has been resumed wound VAC is in place. Patient to continue ice chips and increase activity. 02/27: Patient has been hemodynamically stable, afebrile, pulse ox 97% on room air. She denies shortness of breath. She has been up and walked twice today. She is on ice chips and gum. Patient states she does not feel hungry. Anticipate that diet will be advanced today by surgery. She is reaching 500 ml on IS. Wound vac remains in place. Pain controlled. Patient has been ordered for influenza and pneumococcal vaccines. Hib and meningeal coccal will be done as an outpatient at the [facility]. 02/28: Patient remains afebrile, pulse ox 98% on 2 L nasal cannula. Capillary blood glucose running between 83 and 124. Diet has been advanced to a clear liquid. IV came out last night. Patient is drinking adequate fluids. She does complain of abdominal pain which was quite severe during the night and somewhat improved today. She is passing a lot of gas but no bowel movement. Abdominal x-ray ordered. Hemoglobin is 8.4 and one dose of Ferrlecit ordered. White count is at 13, electrolytes, renal function and liver function all within normal limits. 03/01: Ferrlecit and had been changed to oral iron as patient had no IV access yesterday. Patient has been hemodynamically stable. She is voiding without difficulty. She is passing gas and had a good bowel movement this morning and passing "a lot of gas.". She denies nausea or vomiting. Her diet was advanced to low fiber which she is tolerating. She continues to complain of abdominal pain but better from yesterday. Wound vac is due to be removed tomorrow. Abdominal x-ray shows nephrolithiasis and she follows with urology. Anticipate discharge home tomorrow. Review Of Systems: Constitutional: No fever, no chills, no night sweats. Mild generalized weakness. No daytime sleepiness. EENT: No headache. No blurred vision or double vision. no dizziness. No nasal drainage or congestion. No epistaxis. No sore throat. Lungs: No shortness of breath, no cough, no sputum production. No wheezing. Cardiovascular: No chest pain, no lower extremity edema. No palpitations. No lightheadedness or dizziness. No syncopal episodes. Abdominal: + abdominal pain. No nausea, vomiting. No diarrhea. + BM. + flatus. No bloody or tarry stools. Genitourinary: No dysuria, increased frequency, urgency. No urinary retention after Santana removed. Musculoskeletal: No myalgias. No muscle weakness, no gait dysfunction, no frequent falls. No back pain. No neck pain. Integumentary: + wound w wound vac. No rash or pruritus. No unusual bruising. No change in hair or nails. Psychiatric: No depression. No anxiety. No mood swings. Endocrine: blood sugars controlled. No excessive sweating or thirst. No cold intolerance. No weight change. Objective - Vital Signs Vital signs: Vital Signs Temp 98.5 F 01/29/18 01:20 Pulse 84 01/29/18 07:26 Resp 20 01/29/18 01:20 BP 114/66 01/29/18 01:20 Pulse Ox 93 L 01/29/18 01:20 Intake & Output 01/28/18 01/29/18 01/29/18 18:59 06:59 18:59 Intake Total 500 0 Balance 500 0 Intake: Oral 500 0 - Exam Gen.: This is a 67-year-old female sitting in bed and appears to be comfortable and in no acute distress. Lungs : Clear to auscultation bilaterally Heart: Normal S1 and S2 Abdomen: Soft, mild generalized tenderness, hypoactive bowel sounds, positive for wound VAC in place Skin: No new rash Psych: Alert and oriented x3 at baseline mental status, no neuro deficits - Labs CBC & Chem 7: 01/28/18 08:19 01/28/18 08:19 Labs: Abnormal Lab Results - Last 24 Hours (Table) 01/28/18 01/28/18 Range/Units 08:19 08:19 WBC 13.0 H (3.8-10.6) k/uL RBC 2.83 L (3.80-5.40) m/uL Hgb 8.4 L (11.4-16.0) gm/dL Hct 26.9 L (34.0-46.0) % Total Protein 5.2 L (6.3-8.2) g/dL Albumin 2.7 L (3.5-5.0) g/dL Assessment and Plan Plan: 1. Status post exploratory laparotomy with extensive lysis of adhesions, takedown of splenic flexure, partial omentectomy, reversal of colostomy, splenectomy, repair of incarcerated parastomal hernia and repair of incisional incarcerated hernia. Diet advanced to low fiber by general surgery. Continue current pain management and DVT prophylaxis with heparin subcu. Encourage ambulation. 2. Advanced COPD with chronic hypoxic respiratory failure and steroid dependent. Continue prednisone 10 mg daily continue with supplemental oxygen, DuoNeb treatments, Symbicort twice daily. 3. Hypertension. Continue Cardizem. 4. GERD. Continue Pepcid. 5. History of coronary artery disease. Seems to be compensated. 6. History of compression fracture of L2 and T12 and T7. Continue current pain management. 7. Acute blood loss anemia, expected post op finding. Ferrlecit changed to oral ferrous sulfate. Discharge plan: return home tomorrow. Impression and plan of care have been directed as dictated by the signing physician. Sue Castro nurse practitioner acting as scribe for signing physician.
--- NOTE | 2018-01-29 12:59 | P.DS ---
Providers Date of admission: 01/23/18 05:52 Expected date of discharge: 01/29/18 Attending physician: Lucio Boyer Consults: 01/23/18 22:54 Consult Physician Routine Consulting Provider: Darrin Talamantes Consult Reason/Comments: medical management Do you want consulting provider notified?: Yes 01/23/18 22:58 Consult Physician Routine Consulting Provider: Chencho Gallardo Consult Reason/Comments: pulmonary needs Do you want consulting provider notified?: Yes Primary care physician: Lindsey Bl[place] Hospital Course: 67-year-old female presented to undergo reversal of colostomy and repair parastomal hernia. Patient has a history of a prior perforated diverticulitis. Patient underwent a Tho's procedure by Dr. Herndon . Subsequently the patient underwent reversal of colostomy. At the time of surgery she was found have a leak at the anastomosis patient was given colostomy . There was intermittent episodes of small bowel obstruction secondary to parastomal hernia and incarcerated small bowel within the hernia. Patient has had several hospitalizations over the past several weeks. Patient presented on the day of admission to undergo an elective reversal of colostomy and repair of the parastomal hernia On January 23 underwent exploratory laparotomy, extensive lysis of adhesions, takedown of splenic flexure, partial omentectomy, reversal of colostomy, splenectomy, repair of incarcerated peristomal and incisional hernia with placement of prevena wound system Day of discharge patient was ambulatory on the passing gas having bowel movements and tolerating diet. Wound VAC system was removed surgical dressing applied afebrile patient has a pain contract for chronic pain no prescriptions were given for pain Impression History of a perforated diverticulitis History of peristomal hernia Postop January 23 exploratory laparotomy, extensive lysis of adhesions, takedown of splenic flexure, partial omentectomy, reversal of ostomy, splenectomy, repair of incarcerated peristomal hernia Repair of incisional incarcerated hernia History of compression fracture of L2 and T12 and T7 Advanced COPD home oxygen dependent and steroid dependent Hypertension Esophageal reflux Acute blood loss anemia expected postoperative finding ferrlecit change to oral ferrous sulfate The above impression and plan of care have been discussed and directed by signing physician. Angelika Borja nurse practitioner acting as scribe for signing physician. Plan - Discharge Summary Discharge Rx Participant: No New Discharge Prescriptions: New Ferrous Sulfate [Iron (65 MG Elemental)] 325 mg PO HS #30 tab Continue Albuterol Sulfate [Proventil Hfa] 2 puff INHALATION RT-Q6H PRN PRN Reason: Shortness Of Breath Budesonide/Formoterol Fumarate [Symbicort 160-4.5 Mcg Inhaler] 2 puff INHALATION RT-BID Albuterol Nebulized [Ventolin Nebulized] 2.5 mg INHALATION RT-TID PRN PRN Reason: Shortness Of Breath Montelukast [Singulair] 10 mg PO HS Diltiazem HCl [Cartia Xt] 180 mg PO DAILY #30 cap HYDROcodone/APAP 7.5-325MG [[place] 7.5-325] 1 tab PO Q6H PRN #30 tab PRN Reason: Pain Calcium Carbonate [Calcium] 600 mg PO BID Cholecalciferol [Vitamin D3] 1,000 unit PO DAILY Cyclobenzaprine [Flexeril] 10 mg PO HS Flecainide [Tambocor] 50 mg PO DAILY Folic Acid 1 mg PO DAILY Gabapentin [Neurontin] 100 mg PO HS Multivitamins, Thera [Multivitamin (formulary)] 1 tab PO DAILY Polyethylene Glycol 3350 [Miralax] 17 gm PO DAILY PRN PRN Reason: Constipation Turmeric 1160mg 1,160 mg PO TID predniSONE 10 mg PO DAILY Discharge Medication List Albuterol Nebulized [Ventolin Nebulized] 2.5 mg INHALATION RT-TID PRN 07/22/16 [ History] Albuterol Sulfate [Proventil Hfa] 2 puff INHALATION RT-Q6H PRN 07/22/16 [History ] Budesonide/Formoterol Fumarate [Symbicort 160-4.5 Mcg Inhaler] 2 puff INHALATION RT-BID 07/22/16 [History] Montelukast [Singulair] 10 mg PO HS 07/22/16 [History] Diltiazem HCl [Cartia Xt] 180 mg PO DAILY #30 cap 10/25/16 [Rx] HYDROcodone/APAP 7.5-325MG [[place] 7.5-325] 1 tab PO Q6H PRN #30 tab 10/25/16 [Rx ] Calcium Carbonate [Calcium] 600 mg PO BID 01/19/18 [History] Cholecalciferol [Vitamin D3] 1,000 unit PO DAILY 01/19/18 [History] Cyclobenzaprine [Flexeril] 10 mg PO HS 01/19/18 [History] Flecainide [Tambocor] 50 mg PO DAILY 01/19/18 [History] Folic Acid 1 mg PO DAILY 01/19/18 [History] Gabapentin [Neurontin] 100 mg PO HS 01/19/18 [History] Multivitamins, Thera [Multivitamin (formulary)] 1 tab PO DAILY 01/19/18 [History ] Polyethylene Glycol 3350 [Miralax] 17 gm PO DAILY PRN 01/19/18 [History] Turmeric 1160mg 1,160 mg PO TID 01/19/18 [History] predniSONE 10 mg PO DAILY 01/21/18 [History] Ferrous Sulfate [Iron (65 MG Elemental)] 325 mg PO HS #30 tab 01/29/18 [Rx] Follow up Appointment(s)/Referral(s): Lindsey Price MD [Primary Care Provider] - 1 Week [facility], [NON-STAFF] - Lucio Boyer MD [STAFF PHYSICIAN] - 1 Week Activity/Diet/Wound Care/Special Instructions: No tub bath for six weeks. Shower daily. No lifting over 10 pounds for the next 6 weeks. May use ice packs to surgical site. No driving while taking narcotic for pain. Discharge Disposition: HOME WITH HOME HEALTH SERVICES
[2018-01-29] MEDS: MULTIVITAMINS, THERA 1 EACH TAB PO SCH (14:59)
[2018-01-29] MEDS: FOLIC ACID 1 MG TAB PO SCH (14:59)
[2018-01-29 15:15] VITALS: BP 129/71; PULSE 88; TEMP 98.2
== END 2018-01-29 16:17 | disposition home health service (06) | DRG 330 ==
LOC: 2ORMAIN 05:52 → 4SSUR 12:13
PROVIDERS: ADMIT Surgery; ATTEND Surgery
PROC: 0WQF0ZZ Repair Abdominal Wall, Open Approach (ICD-10-PCS; principal; 2018-01-23 08:00)
PROC: 0DBL0ZZ Excision of Transverse Colon, Open Approach (ICD-10-PCS; principal; 2018-01-23 08:00)
PROC: 0DBU0ZZ Excision of Omentum, Open Approach (ICD-10-PCS; principal; 2018-01-23 08:00)
PROC: 07TP0ZZ Resection of Spleen, Open Approach (ICD-10-PCS; principal; 2018-01-23 08:00)
DX: K43.3 Parastomal hernia with obstruction, without gangrene (principal); D62 Acute posthemorrhagic anemia; K56.50 Intestinal adhesions [bands], unspecified as to partial versus complete obstruction; S36.030A Superficial (capsular) laceration of spleen, initial encounter; K91.72 Accidental puncture and laceration of a digestive system organ or structure during other procedure; G89.29 Other chronic pain; I11.0 Hypertensive heart disease with heart failure; I50.9 Heart failure, unspecified; M81.0 Age-related osteoporosis without current pathological fracture; J44.9 Chronic obstructive pulmonary disease, unspecified; K21.9 Gastro-esophageal reflux disease without esophagitis; I48.91 Unspecified atrial fibrillation; I25.10 Atherosclerotic heart disease of native coronary artery without angina pectoris; Y65.8 Other specified misadventures during surgical and medical care; Y73.8 Miscellaneous gastroenterology and urology devices associated with adverse incidents, not elsewhere classified; Y92.234 Operating room of hospital as the place of occurrence of the external cause; Z43.3 Encounter for attention to colostomy; Z99.81 Dependence on supplemental oxygen; Z90.49 Acquired absence of other specified parts of digestive tract; Z80.0 Family history of malignant neoplasm of digestive organs; Z79.51 Long term (current) use of inhaled steroids; Z79.899 Other long term (current) drug therapy; Z79.52 Long term (current) use of systemic steroids; Z88.5 Allergy status to narcotic agent; Z88.8 Allergy status to other drugs, medicaments and biological substances; Z85.828 Personal history of other malignant neoplasm of skin; Z87.442 Personal history of urinary calculi
CPT/HCPCS: 36569; 74019; 76937; 80048; 80053; 85025; 85027; 88302; 88305; 94640; 94760

== ENCOUNTER → 2018-05-22 | Outpatient (CLI) | payer MEDICARE ==
--- NOTE | 2018-05-22 15:13 | CT ---
EXAMINATION TYPE: CT abdomen pelvis w con DATE OF EXAM: 05/22/2018 COMPARISON: 01/18/2018 INDICATION: [place]-vaginal fistula DLP: 1332 mGycm, Automated exposure control for dose reduction was used. CONTRAST: 80 mL of Isovue 300. Study performed with rectal contrast TECHNIQUE: Axial images were obtained from above the diaphragm to the pubic rami in the axial plane a t 5 mm thick sections. Reconstructed images are reviewed on the computer in the coronal plane. FINDINGS: Limited CT sections are obtained the lung bases. The lung bases are clear. There is a moderate size hiatal hernia. CT ABDOMEN: Liver: Normal Spleen: Normal Pancreas: Normal Adrenal glands: The adrenal glands are normal. Gallbladder: Surgically absent Kidneys: No masses are evident. No hydronephrosis is present. No cysts are present. There is a 1.1 cm nonobstructing renal stone in the posterior mid right kidney. This may be a staghorn calculus. Th ere is a punctate calcification nonobstructing superior pole right kidney measuring 0.3 cm. There is a nonobstructing 0.4 cm calcification superior left kidney. Aorta: Vascular calcification is within the aorta. Inferior vena cava: Normal. CT PELVIS: Loops of bowel within the abdomen and pelvis are normal. Scattered diverticuli are within the col on. There is a small anterior abdominal wall hernia which is widely open extends inferior to the ante rior wall defect. A loop of bowel loops within this pocket. No obstruction is evident. Series 3 image 41. Just inferior to this there appears to be a second anterior abdominal wall hernia periumbilical region. The opening appears to be 3.4 cm in size and contains a slightly prominent small bowel loops containing fluid. Definite obstruction is not identified. Appendix: Not identified. No suspicious inflammatory changes or dilated tubular structures are eviden t. Urinary bladder: Normal. Genitourinary structures: Uterus is present. Adnexal regions are clear. On image 66 series 3 the colo vaginal fistula is demonstrated. Very little contrast is within the rectal vault despite retrograde filling. Significant fluid is been expressed through the vagina during the exam and there is pooling in the vaginal vault versus the rectal lumen. Osseous structures: No suspicious lytic or sclerotic lesions. IMPRESSIONS: 1. 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 2. Bilateral nonobstructing renal stones.
== END | disposition home or self-care (01) ==
LOC: RADCTMAIN 05-21 15:31
PROVIDERS: ATTEND Surgery
DX: N82.3 Fistula of vagina to large intestine (principal)
CPT/HCPCS: 82565; 84520; 74177; 36415; Q9967

== ENCOUNTER 2018-05-27 05:48 | Inpatient (IN) | payer MEDICARE ==
[2018-05-27 06:59] LABS: Basophils # (A) 0.1 k/uL (0-0.2); Basophils % (A) 1 %; Eosinophils # (A) 0.2 k/uL (0-0.7); Eosinophils % (A) 2 %; HCT 51.2 % (34.0-46.0); HGB 16.4 gm/dL (11.4-16.0); Lymphocytes # (A) 1.7 k/uL (1.0-4.8); Lymphocytes % (A) 13 %; MCH 32.5 pg (25.0-35.0); MCHC 32.1 g/dL (31.0-37.0); MCV 101.3 fL (80.0-100.0); Macrocytosis Slight; Mean Platelet Volume 6.9; Monocytes # (A) 0.7 k/uL (0-1.0); Monocytes % (A) 5 %; Neutrophils % (A) 80 %; Platelet Count 253 k/uL (150-450); RBC 5.05 m/uL (3.80-5.40); RDW 14.6 % (11.5-15.5); WBC 13.9 k/uL (3.8-10.6)
[2018-05-27 07:09] LABS: Albumin 4.6 g/dL (3.5-5.0); Calcium 10.2 mg/dL (8.4-10.2); Potassium 4.3 mmol/L (3.5-5.1); Total Bilirubin 0.7 mg/dL (0.2-1.3); Total Protein 7.8 g/dL (6.3-8.2)
--- NOTE | 2018-05-27 07:27 | ED ---
Abdominal Pain HPI - General Chief Complaint: Abdominal Pain Stated Complaint: Abd Pain Time Seen by Provider: 05/27/18 07:00 Source: patient, old records reviewed Mode of arrival: EMS Limitations: no limitations - History of Present Illness Initial Comments: This is a 68-year-old female with a prior history of a colostomy with reversal appendectomy splenectomy who states she is having a colonoscopy later today started having bowel pain last night after starting the bowel prep. Very severe crampy type pain she had nausea vomiting and multiple episodes with this. She states the pain was severe she came in by EMS this morning and felt better after the medication was given by EMS. She does not request any more pain medication at this time. She points to the mid lower abdomen as the area pain. No dysuria no hematuria no constipation or diarrhea. MD Complaint: abdominal pain - Related Data Home Medications Medication Instructions Recorded Confirmed Albuterol Nebulized [Ventolin 2.5 mg INHALATION RT-TID PRN 07/22/16 05/27/18 Nebulized] Albuterol Sulfate [Proventil Hfa] 2 puff INHALATION RT-Q6H PRN 07/22/16 05/27/18 Budesonide/Formoterol Fumarate 2 puff INHALATION RT-BID 07/22/16 05/27/18 [Symbicort 160-4.5 Mcg Inhaler] Montelukast [Singulair] 10 mg PO HS 07/22/16 05/27/18 Calcium Carbonate [Calcium] 600 mg PO BID 01/19/18 05/27/18 Cholecalciferol [Vitamin D3] 1,000 unit PO DAILY 01/19/18 05/27/18 Flecainide [Tambocor] 50 mg PO DAILY 01/19/18 05/27/18 Folic Acid 1 mg PO DAILY 01/19/18 05/27/18 Gabapentin [Neurontin] 200 mg PO HS 01/19/18 05/27/18 Multivitamins, Thera [Multivitamin 1 tab PO DAILY 01/19/18 05/27/18 (formulary)] Polyethylene Glycol 3350 [Miralax] 17 gm PO DAILY PRN 01/19/18 05/27/18 Acetaminophen Tab [Tylenol Tab] 500 mg PO Q6H PRN 05/25/18 05/27/18 Apixaban [Eliquis] 5 mg PO BID 05/25/18 05/27/18 Diltiazem HCl [Cartia Xt] 180 mg PO QAM 05/25/18 05/27/18 Ranitidine HCl 150 mg PO QAM 05/25/18 05/27/18 Turmeric 2,328 mg PO DAILY 05/27/18 05/27/18 predniSONE 5 mg PO DAILY 05/27/18 05/27/18 Allergies Allergy/AdvReac Type Severity Reaction Status Date / Time furosemide [From Lasix] Allergy Rash/Hives Verified 05/27/18 07:02 morphine AdvReac Hallucinati Verified 05/27/18 07:02 ons Review of Systems ROS Statement: Those systems with pertinent positive or pertinent negative responses have been documented in the HPI. ROS Other: All systems not noted in ROS Statement are negative. Past Medical History Past Medical History: Atrial Fibrillation, Asthma, Coronary Artery Disease (CAD) , Cancer, Heart Failure, GERD/Reflux Additional Past Medical History / Comment(s): PARASTOMAL HERNIA, COLOSTOMY, compression fracture of the T-spine, osteoporosis, skin cancer, history of sepsis of urinary source, sigmoid diverticulosis, compression fracture of the L2 spine, compression fracture of the T12 spine, compression fracture of the T7 spine, HX KIDNEY STONE History of Any Multi-Drug Resistant Organisms: None Reported Past Surgical History: Appendectomy, Cholecystectomy Additional Past Surgical History / Comment(s): CATARACT LEFT EYE WITH REPAIR OF MACULAR HOLE. Colonoscopy, 2014 bowel resection with colostomy, CYSTOSCOPY W/ RT RETROGRADE PYELOURETEROGRAM 10/21, ATTEMPTED REVERSAL OF COLOSTOMY, splenectomy Past Anesthesia/Blood Transfusion Reactions: No Reported Reaction Past Psychological History: No Psychological Hx Reported Smoking Status: Never smoker Past Alcohol Use History: None Reported Past Drug Use History: None Reported - Past Family History Mother Family Medical History: Cancer Additional Family Medical History / Comment(s): COLON CANCER Father Family Medical History: Cancer Additional Family Medical History / Comment(s): stomach CA at age 95 Brother(s) Family Medical History: No Reported History Son(s) Family Medical History: No Reported History General Exam - General Exam Comments Initial Comments: This is a well-developed well-nourished awake alert oriented 3 female Limitations: no limitations General appearance: alert, anxious Head exam: Present: atraumatic, normocephalic, normal inspection Eye exam: Present: normal appearance, PERRL, EOMI. Absent: scleral icterus, conjunctival injection, periorbital swelling ENT exam: Present: mucous membranes dry Neck exam: Present: normal inspection, full ROM, other (No stridor JVD or bruits ). Absent: tenderness, meningismus, lymphadenopathy Respiratory exam: Present: normal lung sounds bilaterally. Absent: respiratory distress, wheezes, rales, rhonchi, stridor Cardiovascular Exam: Present: regular rate, normal rhythm, normal heart sounds. Absent: systolic murmur, diastolic murmur, rubs, gallop, clicks GI/Abdominal exam: Present: soft, tenderness (Some tenderness palpation of the lower abdomen especially left lower quadrant area increased tympany no guarding rebound masses or bruits well-healed surgical scars are seen), normal bowel sounds. Absent: distended, guarding, rebound, rigid Extremities exam: Present: normal inspection, full ROM, normal capillary refill. Absent: tenderness, pedal edema, joint swelling, calf tenderness Back exam: Present: normal inspection Neurological exam: Present: alert, oriented X3, CN II-XII intact Psychiatric exam: Present: normal affect, normal mood Skin exam: Present: warm, dry, intact, normal color. Absent: rash Course Vital Signs 05/27/18 05/27/18 05/27/18 05:49 07:30 08:05 Temperature 97.6 F Pulse Rate 85 89 93 Respiratory 20 18 16 Rate Blood Pressure 143/60 117/63 90/54 O2 Sat by Pulse 96 98 96 Oximetry 05/27/18 05/27/18 05/27/18 08:24 08:34 10:46 Temperature Pulse Rate 84 80 79 Respiratory 16 Rate Blood Pressure 96/55 O2 Sat by Pulse 95 Oximetry 05/27/18 11:16 Temperature Pulse Rate 87 Respiratory 16 Rate Blood Pressure 106/57 O2 Sat by Pulse 95 Oximetry - Reevaluation(s) Reevaluation #1: 05/27/18 08:06 The patient did have what appears be a vasovagal episode while in x-ray. Upon standing for an x-ray she felt lightheaded dizzy became somewhat clammy and for a very brief episode minimal responsiveness. His resolve after she became supine again. Medical Decision Making - Medical Decision Making I did discuss the findings with the patient and family as well as with Dr. Giordano the patient will be admitted place an IV fluids antibiotics. - Lab Data Result diagrams: 05/27/18 06:06 05/27/18 06:06 Lab Results 05/27/18 05/27/18 05/27/18 Range/Units 06:06 06:06 06:06 WBC 13.9 H (3.8-10.6) k/uL RBC 5.05 (3.80-5.40) m/uL Hgb 16.4 H (11.4-16.0) gm/dL Hct 51.2 H (34.0-46.0) % MCV 101.3 H (80.0-100.0) fL MCH 32.5 (25.0-35.0) pg MCHC 32.1 (31.0-37.0) g/dL RDW 14.6 (11.5-15.5) % Plt Count 253 (150-450) k/uL Neutrophils % 80 % Lymphocytes % 13 % Monocytes % 5 % Eosinophils % 2 % Basophils % 1 % Neutrophils # 11.0 H (1.3-7.7) k/uL Lymphocytes # 1.7 (1.0-4.8) k/uL Monocytes # 0.7 (0-1.0) k/uL Eosinophils # 0.2 (0-0.7) k/uL Basophils # 0.1 (0-0.2) k/uL Macrocytosis Slight Sodium 142 (137-145) mmol/L Potassium 4.3 (3.5-5.1) mmol/L Chloride 106 (98-107) mmol/L Carbon Dioxide 26 (22-30) mmol/L Anion Gap 10 mmol/L BUN 20 H (7-17) mg/dL Creatinine 1.02 (0.52-1.04) mg/dL Est GFR (CKD-EPI)AfAm 66 (>60 ml/min/1.73 sqM) Est GFR (CKD-EPI)NonAf 57 (>60 ml/min/1.73 sqM) Glucose 113 H (74-99) mg/dL Plasma Lactic Acid Cullen (0.7-2.0) mmol/L Calcium 10.2 (8.4-10.2) mg/dL Magnesium 2.1 (1.6-2.3) mg/dL Total Bilirubin 0.7 (0.2-1.3) mg/dL AST 28 (14-36) U/L ALT 26 (9-52) U/L Alkaline Phosphatase 102 (38-126) U/L Total Creatine Kinase (30-135) U/L CK-MB (CK-2) (0.0-2.4) ng/mL CK-MB (CK-2) Rel Index Troponin I (0.000-0.034) ng/mL Total Protein 7.8 (6.3-8.2) g/dL Albumin 4.6 (3.5-5.0) g/dL Amylase 90 (30-110) U/L Lipase 121 (23-300) U/L 05/27/18 05/27/18 Range/Units 06:52 07:29 WBC (3.8-10.6) k/uL RBC (3.80-5.40) m/uL Hgb (11.4-16.0) gm/dL Hct (34.0-46.0) % MCV (80.0-100.0) fL MCH (25.0-35.0) pg MCHC (31.0-37.0) g/dL RDW (11.5-15.5) % Plt Count (150-450) k/uL Neutrophils % % Lymphocytes % % Monocytes % % Eosinophils % % Basophils % % Neutrophils # (1.3-7.7) k/uL Lymphocytes # (1.0-4.8) k/uL Monocytes # (0-1.0) k/uL Eosinophils # (0-0.7) k/uL Basophils # (0-0.2) k/uL Macrocytosis Sodium (137-145) mmol/L Potassium (3.5-5.1) mmol/L Chloride (98-107) mmol/L Carbon Dioxide (22-30) mmol/L Anion Gap mmol/L BUN (7-17) mg/dL Creatinine (0.52-1.04) mg/dL Est GFR (CKD-EPI)AfAm (>60 ml/min/1.73 sqM) Est GFR (CKD-EPI)NonAf (>60 ml/min/1.73 sqM) Glucose (74-99) mg/dL Plasma Lactic Acid Cullen 1.3 (0.7-2.0) mmol/L Calcium (8.4-10.2) mg/dL Magnesium (1.6-2.3) mg/dL Total Bilirubin (0.2-1.3) mg/dL AST (14-36) U/L ALT (9-52) U/L Alkaline Phosphatase (38-126) U/L Total Creatine Kinase 48 (30-135) U/L CK-MB (CK-2) 1.6 (0.0-2.4) ng/mL CK-MB (CK-2) Rel Index 3.3 Troponin I <0.012 (0.000-0.034) ng/mL Total Protein (6.3-8.2) g/dL Albumin (3.5-5.0) g/dL Amylase (30-110) U/L Lipase (23-300) U/L - Radiology Data Radiology results: report reviewed (I did review the imaging and reports nonspecific findings), image reviewed Disposition Clinical Impression: Intractable vomiting, Dehydration, Hypotensive episode Disposition: ADMITTED IP TO THIS [facility] Condition: Stable Referrals: Lindsey Price MD [Primary Care Provider] - 1-2 days
[2018-05-27] MEDS ORDERED: SODIUM CHLORIDE 0.9% 1,000 ML IV STA (08:05)
[2018-05-27 08:06] LABS: Creatine Kinase 48 U/L (30-135)
[2018-05-27] MEDS ORDERED: IPRATROPIUM-ALBUTEROL 3 ML NEB INHALATION STA (08:09)
--- NOTE | 2018-05-27 08:14 | XR ---
EXAMINATION TYPE: XR chest 2V DATE OF EXAM: 05/27/2018 COMPARISON: 12/22/2016 and 09/27/2016 HISTORY: Abdominal pain, chest pain and constipation. TECHNIQUE: Frontal and lateral views of the chest are obtained. FINDINGS: Reticular left basilar opacity likely relates to atelectasis. Aeration of the lungs has im proved from the prior. There is a moderate hiatal hernia seen in the retrocardiac airspace. No sizabl e pleural effusion or pneumothorax. Cardiomediastinal silhouette is mildly enlarged. Osseous structur es display multiple mid and lower thoracic compression deformities with an exaggerated thoracic kypho sis. These are stable from the prior of 09/27/2016. IMPRESSION: Probable left basilar subsegmental atelectasis and moderate hiatal hernia. Otherwise sta ble exam in comparison to the priors.
--- NOTE | 2018-05-27 08:15 | XR ---
EXAMINATION TYPE: XR KUB DATE OF EXAM: 05/27/2018 COMPARISON: 01/18/2018 INDICATION: Pain TECHNIQUE: Abdomen is examined in supine and upright view FINDINGS: There is a normal bowel gas pattern. Air is within the colon. No free air is evident. Couple of air-f luid levels are in the left upper quadrant of the abdomen. Psoas margins are normal. No organomegaly is present. Surgical clips are within the pelvis. IMPRESSION: 1. Nonspecific abdomen.
[2018-05-27 08:19] LABS: Creatine Kinase MB 1.6 ng/mL (0.0-2.4); Troponin I <0.012 ng/mL (0.000-0.034)
[2018-05-27] MEDS ORDERED: HYDROmorphone 1 MG/ML 1 ML SYRINGE IVP STA (09:25)
[2018-05-27] MEDS ORDERED: PIPERACILLIN-TAZOBACTAM 3.375 GM in SODIUM CHLORIDE 0.9% 100 ML IVPB STA (11:30)
[2018-05-27] MEDS ORDERED: NALOXONE 0.4 MG/ML 1 ML VIAL IV PRN (11:31)
[2018-05-27] MEDS ORDERED: HYDROmorphone 1 MG/ML 1 ML SYRINGE IVP PRN (11:31)
[2018-05-27] MEDS ORDERED: ONDANSETRON 4 MG/2 ML VIAL IVP PRN ×2 (11:31→13:54)
[2018-05-27] MEDS ORDERED: ALBUTEROL NEBULIZED 2.5 MG/3 ML INHALATION PRN ×2 (11:34)
[2018-05-27] MEDS: SODIUM CHLORIDE 0.9% 1,000 ML IV SCH ×2 (12:34→19:33)
[2018-05-27] MEDS ORDERED: SODIUM CHLORIDE 0.9% 1,000 ML IV ONE (13:53)
--- NOTE | 2018-05-27 14:10 | P.GSHP ---
History of Present Illness H&P Date: 05/27/18 Chief Complaint: abdominal pain CHIEF COMPLAINT: abdominal pain HISTORY OF PRESENT ILLNESS: 68-year-old female who presented to the ER with a chief complaint of abdominal pain. Patient reports she was scheduled for outpatient colonoscopy today secondary to colovaginal fistula. She drank her prep at home and began having severe crampy abdominal pain. She also reports nausea and multiple episodes of vomiting. The pain persisted so she came to the hospital for further evaluation. WBC 13.9. PAST MEDICAL HISTORY: See list. PAST SURGICAL HISTORY: See list. MEDICATIONS: See list. ALLERGIES: See list. SOCIAL HISTORY: No illicit drug use. REVIEW OF SYSTEMS: CONSTITUTIONAL: Denies fever or chills. HEENT: Denies blurred vision, vision changes, or eye pain. Denies hemoptysis ENDOCRINE: Denies heat or cold intolerance. CARDIOVASCULAR: Denies chest pain or pressure. RESPIRATORY: No shortness of breath. GASTROINTESTINAL: Reports abdominal pain. Reports nausea. Reports vomiting. NEURO: Denies history of seizures. PSYCH: No depression or suicidal ideation HEMATOLOGIC: Denies bleeding disorders. LYMPHATIC: The patient denies any lumps and bumps around the neck. GENITOURINARY: Denies any blood in urine or increased urinary frequency. MUSCULOSKELETAL: Denies myalgias. Denies joint swelling. Denies decreased range of motion beyond patients baseline. SKIN: Denies pruitis. Denies rash. PHYSICAL EXAM: VITAL SIGNS: Currently stable. GENERAL: Well-developed in no acute distress. HEENT: No sclera icterus. Extraocular movements grossly intact. Moist buccal mucosa. Head is atraumatic, normocephalic. Hears conversational speech. No nasal drainage. NECK: Supple without lymphadenopathy. CHEST: Non-labored respirations and equal bilateral excursions. CARDIOVASCULAR: Regular rate with regular rhythm. Palpable 2+ radial pulses. ABDOMEN: Soft. Nondistended. Tenderness upon palpation, specifically left lower quadrant. MUSCULOSKELETAL: No clubbing, cyanosis or edema. NEUROLOGIC: No focal or lateralizing signs. Cranial nerves II through XII grossly intact. PSYCH: Appropriate affect. Alert and oriented to person, place and time. SKIN: Well perfused. Good skin turgor. IMAGIN. CT abdomen and pelvis 05/22/2018: Colovaginal fistula demonstrated extending from the anterior proximal rectum into the proximal vaginal vault. 2. KUB x-ray: nonspecific abdomen ASSESSMENT: 1. Abdominal pain, nausea, vomiting x 1 day 2. Colovaginal fistula 3. Leukocytosis 4. Dehydration 5. History of perforated diverticulitis with colostomy placement 6. History of colostomy reversal, January 2018 7. History of appendectomy, cholecystectomy, and splenectomy PLAN: 1. NPO. Patient may have ice chips 2. Zosyn 3. Obtain CT scan with oral contrast 4. 1 L fluid bolus x 1 5. IV fluids at 125cc/hr 6. Antiemetics 7. Further recommendations to follow Nurse practitioner note has been reviewed by physician. Signing provider agrees with the documented findings, assessment, and plan of care. Past Medical History Past Medical History: Atrial Fibrillation, Asthma, Cancer, Heart Failure, COPD, GERD/Reflux, Renal Disease, Respiratory Disorder Additional Past Medical History / Comment(s): Past diverticular perforation with surgery/colostomy with eventual reversal, bowel obstruction, home oxygen at HS 2L/NC, compression fractures T7 and T12 and L2 spine, chronic low back pain, osteoporosis, UTIs, sepsis, kidney stone, anemia, skin cancer with removal. History of Any Multi-Drug Resistant Organisms: None Reported Past Surgical History: Appendectomy, Bowel Resection, Cholecystectomy Additional Past Surgical History / Comment(s): Colonoscopies, bowel resection d/ t perforation with colostomy, attempted colostomy reversal then exploratory lap with extensive lysis of adhesions, reversal of colostomy/repair of peristomal and incisional hernia/take down splenic flexure and partial omenectomy/ spleenectomy, L eye cataract removed and repair of macular hole, cystoscopy- retrograde pyeloureterogram with stone removal, skin cancer removal. Past Anesthesia/Blood Transfusion Reactions: No Reported Reaction Smoking Status: Never smoker - Past Family History Mother Family Medical History: Cancer Additional Family Medical History / Comment(s): COLON CANCER Father Family Medical History: Cancer Additional Family Medical History / Comment(s): stomach CA at age 95 Brother(s) Family Medical History: No Reported History Son(s) Family Medical History: No Reported History Medications and Allergies Home Medications Medication Instructions Recorded Confirmed Type Albuterol Nebulized [Ventolin 2.5 mg INHALATION RT-TID PRN 07/22/16 05/27/18 History Nebulized] Albuterol Sulfate [Proventil Hfa] 2 puff INHALATION RT-Q6H PRN 07/22/16 History Budesonide/Formoterol Fumarate 2 puff INHALATION RT-BID 07/22/16 05/27/18 History [Symbicort 160-4.5 Mcg Inhaler] Montelukast [Singulair] 10 mg PO HS 07/22/16 05/27/18 History Calcium Carbonate [Calcium] 600 mg PO BID 01/19/18 05/27/18 History Cholecalciferol [Vitamin D3] 1,000 unit PO DAILY 01/19/18 05/27/18 History Flecainide [Tambocor] 50 mg PO DAILY 01/19/18 05/27/18 History Folic Acid 1 mg PO DAILY 01/19/18 05/27/18 History Gabapentin [Neurontin] 200 mg PO HS 01/19/18 05/27/18 History Multivitamins, Thera [Multivitamin 1 tab PO DAILY 01/19/18 05/27/18 History (formulary)] Polyethylene Glycol 3350 [Miralax] 17 gm PO DAILY PRN 01/19/18 05/27/18 History Acetaminophen Tab [Tylenol Tab] 500 mg PO Q6H PRN 05/25/18 05/27/18 History Apixaban [Eliquis] 5 mg PO BID 05/25/18 05/27/18 History Diltiazem HCl [Cartia Xt] 180 mg PO QAM 05/25/18 05/27/18 History Ranitidine HCl 150 mg PO QAM 05/25/18 05/27/18 History Turmeric 2,328 mg PO DAILY 05/27/18 05/27/18 History predniSONE 5 mg PO DAILY 05/27/18 05/27/18 History Allergies Allergy/AdvReac Type Severity Reaction Status Date / Time furosemide [From Lasix] Allergy Rash/Hives Verified 05/27/18 07:02 morphine AdvReac Hallucinati Verified 05/27/18 07:02 ons Surgical - Exam Vital Signs Temp Pulse Resp BP Pulse Ox 97.6 F 85 20 143/60 96 05/27/18 05:49 05/27/18 05:49 05/27/18 05:49 05/27/18 05:49 05/27/18 05:49 Results - Labs 05/27/18 06:06 05/27/18 06:06 Abnormal Lab Results - Last 24 Hours (Table) 05/27/18 05/27/18 Range/Units 06:06 06:06 WBC 13.9 H (3.8-10.6) k/uL Hgb 16.4 H (11.4-16.0) gm/dL Hct 51.2 H (34.0-46.0) % MCV 101.3 H (80.0-100.0) fL Neutrophils # 11.0 H (1.3-7.7) k/uL BUN 20 H (7-17) mg/dL Glucose 113 H (74-99) mg/dL Diabetes panel 05/27/18 Range/Units 06:06 Sodium 142 (137-145) mmol/L Potassium 4.3 (3.5-5.1) mmol/L Chloride 106 (98-107) mmol/L Carbon Dioxide 26 (22-30) mmol/L BUN 20 H (7-17) mg/dL Creatinine 1.02 (0.52-1.04) mg/dL Glucose 113 H (74-99) mg/dL Calcium 10.2 (8.4-10.2) mg/dL AST 28 (14-36) U/L ALT 26 (9-52) U/L Alkaline Phosphatase 102 (38-126) U/L Total Protein 7.8 (6.3-8.2) g/dL Albumin 4.6 (3.5-5.0) g/dL Calcium panel 05/27/18 Range/Units 06:06 Calcium 10.2 (8.4-10.2) mg/dL Albumin 4.6 (3.5-5.0) g/dL Pituitary panel 05/27/18 Range/Units 06:06 Sodium 142 (137-145) mmol/L Potassium 4.3 (3.5-5.1) mmol/L Chloride 106 (98-107) mmol/L Carbon Dioxide 26 (22-30) mmol/L BUN 20 H (7-17) mg/dL Creatinine 1.02 (0.52-1.04) mg/dL Glucose 113 H (74-99) mg/dL Calcium 10.2 (8.4-10.2) mg/dL Adrenal panel 05/27/18 Range/Units 06:06 Sodium 142 (137-145) mmol/L Potassium 4.3 (3.5-5.1) mmol/L Chloride 106 (98-107) mmol/L Carbon Dioxide 26 (22-30) mmol/L BUN 20 H (7-17) mg/dL Creatinine 1.02 (0.52-1.04) mg/dL Glucose 113 H (74-99) mg/dL Calcium 10.2 (8.4-10.2) mg/dL Total Bilirubin 0.7 (0.2-1.3) mg/dL AST 28 (14-36) U/L ALT 26 (9-52) U/L Alkaline Phosphatase 102 (38-126) U/L Total Protein 7.8 (6.3-8.2) g/dL Albumin 4.6 (3.5-5.0) g/dL
[2018-05-27] MEDS: IOPAMIDOL-300 CONTRAST 30 ML VIAL (ORAL USE) PO PRN ×2 (14:20→15:10)
--- NOTE | 2018-05-27 16:26 | CT ---
EXAMINATION TYPE: CT abdomen pelvis wo con DATE OF EXAM: 05/27/2018 COMPARISON: 05/22/2018 HISTORY: Generalized pain CT DLP: 576.6 mGycm Automated exposure control for dose reduction was used. TECHNIQUE: Helical acquisition of images was performed from the lung bases through the pelvis. FINDINGS: LUNG BASES: No significant abnormality is appreciated. LIVER/GB: Unremarkable unenhanced morphology. Gallbladder is surgically absent. PANCREAS: No significant abnormality is seen. SPLEEN: Spleen appears surgically absent. ADRENALS: No significant abnormality is seen. KIDNEYS: There are bilateral renal calculi, punctate on the left and 2 in number and 1.5 cm nonobstru cting right upper pole renal calculus as well as 3 mm lower pole renal calculus. No hydronephrosis. FREE AIR: No free air is visualized ADENOPATHY: No greater than 1 cm short axis lymph node is seen in the abdomen or pelvis. REPRODUCTIVE ORGANS: The known colovaginal fistula on the prior of 05/22/2018 confirmed with rectal co ntrast is less well appreciated on today's examination but present on image 69. URINARY BLADDER: No significant abnormality is seen. OSSEOUS STRUCTURES: Extensive multilevel degenerative change with compression deformities of T12, T1 0, T8, and multilevel Schmorl's node deformities of the endplates. These are unchanged from the prior . BOWEL: There is distal esophageal circumferential mucosal thickening and a moderate hiatal hernia wi th retained oral contrast. There are multiple loops of dilated bowel throughout the abdomen with smal l bowel prominence in air-fluid levels. Small bowel measures up to 3.2 cm and large bowel measures up to 6.2 cm. No transition point is seen or loops of decompressed small bowel to suggest complete obst ruction. Contrast extends towards the terminal ileum and air-fluid levels are seen throughout the pre dominantly fluid-filled colon. OTHER: There is diastases recti and a small infraumbilical hernia containing loop of dilated small kevin wel. This hernia defect is wide neck measuring 4 cm. IMPRESSION: 1. NEW MILDLY DILATED LOOPS OF FLUID-FILLED SMALL AND LARGE BOWEL WITHOUT TRANSITION POINT TO SUGGEST OBSTRUCTION. SMALL BOWEL AND COLONIC ILEUS ARE SUSPECTED. CONTINUED FOLLOW SHORT-TERM ABDOMINAL RADI OGRAPHS ARE RECOMMENDED. 2. THE KNOWN VAGINAL FISTULA WAS BETTER DELINEATED ON THE EXAM OF 05/22/2018 WITH RECTAL CONTRAST. 3. CIRCUMFERENTIAL DISTAL ESOPHAGEAL MUCOSAL THICKENING WITHIN A MODERATE HIATAL HERNIA. ENDOSCOPY CO ULD FURTHER EVALUATE THIS FINDING. 4. NONOBSTRUCTING BILATERAL RENAL CALCULI.
[2018-05-27] MEDS ORDERED: ACETAMINOPHEN TAB 500 MG TAB PO PRN (19:41)
[2018-05-27] MEDS ORDERED: POLYETHYLENE GLYCOL 3350 17 GM POWD.PACK PO PRN (19:41)
[2018-05-27] MEDS: APIXABAN 5 MG TAB PO SCH (20:10)
[2018-05-27] MEDS: CALCIUM CARBONATE 500 MG CHEWABLE PO SCH (20:10)
[2018-05-27] MEDS: SYMBICORT 160-4.5 MCG INHALER INHALATION SCH (20:38)
[2018-05-27] MEDS ORDERED: MONTELUKAST 10 MG TAB PO SCH (21:00)
[2018-05-27] MEDS ORDERED: GABAPENTIN 100 MG CAP PO SCH (21:00)
[2018-05-27] MEDS: PIPERACILLIN-TAZOBACTAM 3.375 GM in SODIUM CHLORIDE 0.9% 100 ML IVPB SCH (21:07)
[2018-05-28] MEDS: SODIUM CHLORIDE 0.9% 1,000 ML IV SCH (04:44)
[2018-05-28] MEDS: PIPERACILLIN-TAZOBACTAM 3.375 GM in SODIUM CHLORIDE 0.9% 100 ML IVPB SCH ×2 (05:06→15:33)
[2018-05-28 06:09] LABS: Basophils % (A) 1 %; Eosinophils # (A) 0.4 k/uL (0-0.7); Eosinophils % (A) 6 %; HCT 42.9 % (34.0-46.0); HGB 13.5 gm/dL (11.4-16.0); Hypochromasia Slight; Lymphocytes # (A) 1.3 k/uL (1.0-4.8); Lymphocytes % (A) 19 %; MCH 32.5 pg (25.0-35.0); MCHC 31.5 g/dL (31.0-37.0); MCV 103.1 fL (80.0-100.0); Macrocytosis Slight; Mean Platelet Volume 7.5; Monocytes # (A) 0.5 k/uL (0-1.0); Monocytes % (A) 8 %; Neutrophils # (A) 4.7 k/uL (1.3-7.7); Neutrophils % (A) 66 %; Platelet Count 213 k/uL (150-450); RBC 4.16 m/uL (3.80-5.40); RDW 14.5 % (11.5-15.5); WBC 7.1 k/uL (3.8-10.6)
[2018-05-28 06:18] LABS: Calcium 8.2 mg/dL (8.4-10.2); Potassium 4.4 mmol/L (3.5-5.1)
[2018-05-28] MEDS: APIXABAN 5 MG TAB PO SCH (08:14)
[2018-05-28] MEDS: CALCIUM CARBONATE 500 MG CHEWABLE PO SCH (08:14)
[2018-05-28] MEDS: SYMBICORT 160-4.5 MCG INHALER INHALATION SCH (08:25)
[2018-05-28] MEDS ORDERED: FAMOTIDINE 20 MG TAB PO SCH (09:00)
[2018-05-28] MEDS ORDERED: PANTOPRAZOLE 40 MG/10 ML VIAL IV SCH (09:00)
[2018-05-28] MEDS ORDERED: DILTIAZEM CD 180 MG CAP.ER.24H PO SCH (09:00)
[2018-05-28] MEDS ORDERED: predniSONE 5 MG TAB PO SCH (09:00)
[2018-05-28] MEDS ORDERED: FLECAINIDE 50 MG TAB PO SCH (09:00)
[2018-05-28] MEDS ORDERED: CHOLECALCIFEROL 1,000 UNIT TAB PO SCH (09:00)
[2018-05-28] MEDS ORDERED: TURMERIC PO SCH (09:00)
[2018-05-28] MEDS ORDERED: MULTIVITAMINS, THERA 1 EACH TAB PO SCH (12:00)
[2018-05-28] MEDS ORDERED: FOLIC ACID 1 MG TAB PO SCH (12:00)
[2018-05-28 16:02] VITALS: BP 127/59; PULSE 76; RESP 16; TEMP 98.7
--- NOTE | 2018-05-28 18:54 | P.PN ---
Subjective Progress Note Date: 05/28/18 Principal diagnosis: Colovaginal fistula Patient feels well today. Denies pain at this time. She is passing normal stools. She is tolerating her diet. Nursing staff spoke with Dr. Frances who apparently has released her for discharge. Plans are underway for outpatient follow-up at [facility] Objective - Vital Signs Vital signs: Vital Signs Temp 98.7 F 05/28/18 16:00 Pulse 76 05/28/18 16:00 Resp 16 05/28/18 16:00 BP 127/59 05/28/18 16:00 Pulse Ox 94 L 05/28/18 16:00 Intake & Output 05/27/18 05/28/18 05/28/18 18:59 06:59 18:59 Intake Total 600 Balance 600 Intake: Oral 600 Other: # Voids 1 1 # Bowel Movements 1 - Exam Abdomen: Soft, nontender, nondistended - Labs CBC & Chem 7: 05/28/18 05:57 05/28/18 05:57 Labs: Abnormal Lab Results - Last 24 Hours (Table) 05/28/18 05/28/18 Range/Units 05:57 05:57 MCV 103.1 H (80.0-100.0) fL Chloride 110 H (98-107) mmol/L BUN 23 H (7-17) mg/dL Creatinine 1.13 H (0.52-1.04) mg/dL Calcium 8.2 L (8.4-10.2) mg/dL Microbiology - Last 24 Hours (Table) 05/27/18 12:30 Blood Culture - Preliminary Blood No Growth after 24 hours Assessment and Plan Assessment: May discharge at this time. Outpatient follow-up with [facility] being arranged. Return to ER if problems develop.
--- NOTE | 2018-05-29 10:07 | CDI ---
Documentation Clarification Form Date: 05/29/18 From: Arelis Esparza Phone: If you have a question regarding this query, please contact Christina Vázquez at [phone] between 8am and 5pm. Admit Date: 05/27/2018 2:28:00 PM Patient Name: Angelique Boyle Visit Number: [id number] Discharge Date: 05/28/2018 6:41:00 PM ATTENTION: The Clinical Documentation Specialists (CDI) and [facility] Coding Staff appreciate your assistance in clarifying documentation. Please respond to the clarification below the line at the bottom and electronically sign. The CDI & [facility] Coding staff will review the response and follow-up if needed. Please note: Queries are made part of the Legal Health Record. If you have any questions, please contact the author of this message via ITS. Dr. Lucio Boyer Heart failure is documented in the past medical history in the ED note and H&P. History/Risk Factors: Patient has CAD, atrial fib and [employer]ITE [employer] Clinical Indicators: No edema or shortness of breath on this admission. VS/Pulse OX: T. 97.6, P. 85, R. 20, BP 143/60 BNP: Not tested. Chest X Ray: Probable left basilar subsegmental atelectasis and moderate hiatal hernia. Otherwise stable exam in comparison to the priors. Treatment: Not on any meds. In your professional opinion, can you please clarify the type of CHF if known? Systolic Heart Failure: Diastolic Heart Failure: Systolic & Diastolic Heart Failure: Unable to Determine Other, please specify Unable to determine MTDD
--- NOTE | 2018-05-29 10:29 | CDI ---
Documentation Clarification Form Date: 05/29/18 From: Arelis Esparza Phone: If you have a question regarding this query, please contact Christina Vázquez at [phone] between 8am and 5pm. Admit Date: 05/27/2018 2:28:00 PM Patient Name: Angelique Boyle Visit Number: [id number] Discharge Date: 05/28/2018 6:41:00 PM ATTENTION: The Clinical Documentation Specialists (CDI) and [facility] Coding Staff appreciate your assistance in clarifying documentation. Please respond to the clarification below the line at the bottom and electronically sign. The CDI & [facility] Coding staff will review the response and follow-up if needed. Please note: Queries are made part of the Legal Health Record. If you have any questions, please contact the author of this message via ITS. Dr. Lucio Boyer Atrial Fibrillation is documented in the past medical history of the ED note and H&P. History/Risk Factors: Patient has CAD, COPD and a history of CHF. Clinical Indicators: No a-fib exacerbation on this admit. EKG/telemetry: Normal appearing EKG, normal sinus rhythm of 90 Treatment: Patient is on Eliquis and Diltiazem at home In your professional opinion, can you please clarify the type of Atrial Fibrillation, if known? Chronic/Permanent Paroxysmal Persistent Other, please specify Unable to determine Unable to determine MTDD
== END 2018-05-28 18:41 | disposition home or self-care (01) | DRG 395 ==
LOC: EC 05:48 → 1SOBS 11:32 → OBSVTOIN 14:28
PROVIDERS: ADMIT Surgery; ATTEND Surgery
DX: N82.3 Fistula of vagina to large intestine (principal); R11.2 Nausea with vomiting, unspecified; I95.9 Hypotension, unspecified; I48.91 Unspecified atrial fibrillation; I50.9 Heart failure, unspecified; J44.9 Chronic obstructive pulmonary disease, unspecified; E86.0 Dehydration; R10.9 Unspecified abdominal pain; D72.829 Elevated white blood cell count, unspecified; I25.10 Atherosclerotic heart disease of native coronary artery without angina pectoris; K21.9 Gastro-esophageal reflux disease without esophagitis; K57.30 Diverticulosis of large intestine without perforation or abscess without bleeding; M81.0 Age-related osteoporosis without current pathological fracture; Z79.01 Long term (current) use of anticoagulants; Z79.51 Long term (current) use of inhaled steroids; Z79.899 Other long term (current) drug therapy; Z79.52 Long term (current) use of systemic steroids; Z88.5 Allergy status to narcotic agent; Z88.8 Allergy status to other drugs, medicaments and biological substances; Z90.81 Acquired absence of spleen; Z90.49 Acquired absence of other specified parts of digestive tract; Z85.828 Personal history of other malignant neoplasm of skin; Z87.442 Personal history of urinary calculi; Z98.42 Cataract extraction status, left eye; Z80.0 Family history of malignant neoplasm of digestive organs
CPT/HCPCS: 36415; 71046; 74018; 74176; 80048; 80053; 82150; 82550; 82553; 83605; 83690; 83735; 84484; 85025; 87040; 93005; 94640; 96361; 96365; 96375; 99285

== ENCOUNTER 2021-01-05 09:01 | Inpatient (IN) | payer MEDICARE ==
[2021-01-05] MEDS ORDERED: KETOROLAC 15 MG/ML 1 ML VIAL IVP STA (09:16)
[2021-01-05] MEDS ORDERED: SODIUM CHLORIDE 0.9% 1,000 ML IV STA (09:16)
--- NOTE | 2021-01-05 09:20 | ED ---
General Adult HPI - General Chief complaint: Abdominal Pain Stated complaint: abd pain Time Seen by Provider: 01/05/21 09:05 Source: patient, EMS, RN notes reviewed, old records reviewed Mode of arrival: EMS Limitations: no limitations - History of Present Illness Initial comments: This is a 70-year-old female presents emergency Department complaining of mid abdominal pain both to the right and left. Patient states she's had a past medical history of a colectomy with colostomy. Patient states she's had her she's also had her gallbladder out her appendix out as well as her spleen out. Patient also states she's had a ventral hernia repair. Patient states this pain started suddenly and it made her nauseous and she has vomited at least 4 times. Patient states she has not had a bowel movement since the pain began early this morning. Patient denies any fevers or chills. Patient states she is up-to-date her Pneumovax. Patient denies any chest pain difficulty breathing shortness of breath. Patient states the pain does radiate a little bit to her back. - Related Data Home Medications Medication Instructions Recorded Confirmed Albuterol Nebulized [Ventolin 2.5 mg INHALATION RT-TID PRN 07/22/16 05/27/18 Nebulized] Albuterol Sulfate [Proventil Hfa] 2 puff INHALATION RT-Q6H PRN 07/22/16 05/27/18 Budesonide/Formoterol Fumarate 2 puff INHALATION RT-BID 07/22/16 05/27/18 [Symbicort 160-4.5 Mcg Inhaler] Montelukast [Singulair] 10 mg PO HS 07/22/16 05/27/18 Calcium Carbonate [Calcium] 600 mg PO BID 01/19/18 05/27/18 Cholecalciferol [Vitamin D3 (25 1,000 unit PO DAILY 01/19/18 05/27/18 Mcg = 1000 Iu)] Flecainide [Tambocor] 50 mg PO DAILY 01/19/18 05/27/18 Folic Acid 1 mg PO DAILY 01/19/18 05/27/18 Gabapentin [Neurontin] 200 mg PO HS 01/19/18 05/27/18 Multivitamins, Thera [Multivitamin 1 tab PO DAILY 01/19/18 05/27/18 (formulary)] Polyethylene Glycol 3350 [Miralax] 17 gm PO DAILY PRN 01/19/18 05/27/18 Acetaminophen Tab [Tylenol Tab] 500 mg PO Q6H PRN 05/25/18 05/27/18 Apixaban [Eliquis] 5 mg PO BID 05/25/18 05/27/18 Diltiazem HCl [Cartia Xt] 180 mg PO QAM 05/25/18 05/27/18 Ranitidine HCl 150 mg PO QAM 05/25/18 05/27/18 Turmeric 2,328 mg PO DAILY 05/27/18 05/27/18 predniSONE 5 mg PO DAILY 05/27/18 05/27/18 Allergies Allergy/AdvReac Type Severity Reaction Status Date / Time furosemide [From Lasix] Allergy Rash/Hives Verified 01/05/21 09:07 morphine AdvReac Hallucinati Verified 01/05/21 09:07 ons Review of Systems ROS Statement: Those systems with pertinent positive or pertinent negative responses have been documented in the HPI. ROS Other: All systems not noted in ROS Statement are negative. Past Medical History Past Medical History: Atrial Fibrillation, Asthma, Cancer, Heart Failure, COPD, GERD/Reflux, Renal Disease, Respiratory Disorder Additional Past Medical History / Comment(s): Past diverticular perforation with surgery/colostomy with eventual reversal, bowel obstruction, home oxygen at HS 2L/NC, compression fractures T7 and T12 and L2 spine, chronic low back pain, osteoporosis, UTIs, sepsis, kidney stone, anemia, skin cancer with removal. History of Any Multi-Drug Resistant Organisms: None Reported Past Surgical History: Appendectomy, Bowel Resection, Cholecystectomy Additional Past Surgical History / Comment(s): Colonoscopies, bowel resection d/t perforation with colostomy, attempted colostomy reversal then exploratory lap with extensive lysis of adhesions, reversal of colostomy/repair of peristomal and incisional hernia/take down splenic flexure and partial omenectomy/spleenectomy, L eye cataract removed and repair of macular hole, cystoscopy-retrograde pyeloureterogram with stone removal, skin cancer removal. Past Anesthesia/Blood Transfusion Reactions: No Reported Reaction Past Psychological History: No Psychological Hx Reported Smoking Status: Never smoker Past Alcohol Use History: None Reported Past Drug Use History: None Reported - Past Family History Mother Family Medical History: Cancer Additional Family Medical History / Comment(s): COLON CANCER Father Family Medical History: Cancer Additional Family Medical History / Comment(s): stomach CA at age 95 Brother(s) Family Medical History: No Reported History Son(s) Family Medical History: No Reported History General Exam - General Exam Comments Initial Comments: GENERAL: Patient is well-developed and well-nourished. Patient is nontoxic and well- hydrated and is in mild distress. ENT: Neck is soft and supple. No significant lymphadenopathy is noted. Oropharynx is clear. Moist mucous membranes. Neck has full range of motion without eliciting any pain. EYES: The sclera were anicteric and conjunctiva were pink and moist. Extraocular movements were intact and pupils were equal round and reactive to light. Eyelids were unremarkable. PULMONARY: Unlabored respirations. Good breath sounds bilaterally. No audible rales rhonchi or wheezing was noted. CARDIOVASCULAR: There is a regular rate and rhythm without any murmurs gallops or rubs. ABDOMEN: Patient has hyperactive bowel sounds and is mildly tender along the whole midsection of her abdomen. SKIN: Skin is clear with no lesions or rashes and otherwise unremarkable. NEUROLOGIC: Patient is alert and oriented x3. Cranial nerves II through XII are grossly intact. Motor and sensory are also intact. Normal speech, volume and content. Symmetrical smile. MUSCULOSKELETAL: Normal extremities with adequate strength and full range of motion. No lower extremity swelling or edema. No calf tenderness. LYMPHATICS: No significant lymphadenopathy is noted PSYCHIATRIC: Normal psychiatric evaluation. Limitations: no limitations Course Vital Signs 01/05/21 01/05/21 09:03 10:33 Temperature 98 F 97.7 F Pulse Rate 77 76 Respiratory 18 18 Rate Blood Pressure 142/86 116/56 O2 Sat by Pulse 95 96 Oximetry Medical Decision Making - Medical Decision Making CAT scan shows possible ventral hernia. There is also evidence of small bowel obstruction. I spoke with Dr. Dexter he agreed to admit the patient admitted the patient wrote admitting orders. The patient was given Dilaudid and Toradol for pain. Patient was also given Zofran for vomiting in route to the hospital. Patient had an NG placed. - Lab Data Result diagrams: 01/05/21 09:18 01/05/21 09:18 Lab Results 01/05/21 01/05/21 01/05/21 Range/Units 09:18 09:18 09:18 WBC 13.2 H (3.8-10.6) k/uL RBC 4.34 (3.80-5.40) m/uL Hgb 14.2 (11.4-16.0) gm/dL Hct 44.7 (34.0-46.0) % MCV 102.9 H (80.0-100.0) fL MCH 32.7 (25.0-35.0) pg MCHC 31.8 (31.0-37.0) g/dL RDW 12.4 (11.5-15.5) % Plt Count 223 (150-450) k/uL MPV 8.4 Neutrophils % 69 % Lymphocytes % 20 % Monocytes % 7 % Eosinophils % 3 % Basophils % 1 % Neutrophils # 9.1 H (1.3-7.7) k/uL Lymphocytes # 2.6 (1.0-4.8) k/uL Monocytes # 0.9 (0-1.0) k/uL Eosinophils # 0.4 (0-0.7) k/uL Basophils # 0.1 (0-0.2) k/uL Macrocytosis Slight Sodium 137 (137-145) mmol/L Potassium 3.9 (3.5-5.1) mmol/L Chloride 101 (98-107) mmol/L Carbon Dioxide 28 (22-30) mmol/L Anion Gap 8 mmol/L BUN 20 H (7-17) mg/dL Creatinine 0.99 (0.52-1.04) mg/dL Est GFR (CKD-EPI)AfAm 67 (>60 ml/min/1.73 sqM) Est GFR (CKD-EPI)NonAf 58 (>60 ml/min/1.73 sqM) Glucose 105 H (74-99) mg/dL Plasma Lactic Acid Cullen 1.0 (0.7-2.0) mmol/L Calcium 10.1 (8.4-10.2) mg/dL Total Bilirubin 0.6 (0.2-1.3) mg/dL AST 26 (14-36) U/L ALT 10 (4-34) U/L Alkaline Phosphatase 99 (38-126) U/L Total Protein 6.6 (6.3-8.2) g/dL Albumin 3.8 (3.5-5.0) g/dL Amylase 76 (30-110) U/L Lipase 115 (23-300) U/L Urine Color Urine Appearance (Clear) Urine pH (5.0-8.0) Ur Specific [place] (1.001-1.035) Urine Protein (Negative) Urine Glucose (UA) (Negative) Urine Ketones (Negative) Urine Blood (Negative) Urine Nitrite (Negative) Urine Bilirubin (Negative) Urine Urobilinogen (<2.0) mg/dL Ur Leukocyte Esterase (Negative) Urine RBC (0-5) /hpf Urine WBC (0-5) /hpf Ur Squamous Epith Cells (0-4) /hpf Calcium Oxalate Crystal (None) /hpf Urine Bacteria (None) /hpf Urine Mucus (None) /hpf 01/05/21 Range/Units 09:29 WBC (3.8-10.6) k/uL RBC (3.80-5.40) m/uL Hgb (11.4-16.0) gm/dL Hct (34.0-46.0) % MCV (80.0-100.0) fL MCH (25.0-35.0) pg MCHC (31.0-37.0) g/dL RDW (11.5-15.5) % Plt Count (150-450) k/uL MPV Neutrophils % % Lymphocytes % % Monocytes % % Eosinophils % % Basophils % % Neutrophils # (1.3-7.7) k/uL Lymphocytes # (1.0-4.8) k/uL Monocytes # (0-1.0) k/uL Eosinophils # (0-0.7) k/uL Basophils # (0-0.2) k/uL Macrocytosis Sodium (137-145) mmol/L Potassium (3.5-5.1) mmol/L Chloride (98-107) mmol/L Carbon Dioxide (22-30) mmol/L Anion Gap mmol/L BUN (7-17) mg/dL Creatinine (0.52-1.04) mg/dL Est GFR (CKD-EPI)AfAm (>60 ml/min/1.73 sqM) Est GFR (CKD-EPI)NonAf (>60 ml/min/1.73 sqM) Glucose (74-99) mg/dL Plasma Lactic Acid Cullen (0.7-2.0) mmol/L Calcium (8.4-10.2) mg/dL Total Bilirubin (0.2-1.3) mg/dL AST (14-36) U/L ALT (4-34) U/L Alkaline Phosphatase (38-126) U/L Total Protein (6.3-8.2) g/dL Albumin (3.5-5.0) g/dL Amylase (30-110) U/L Lipase (23-300) U/L Urine Color Light Red Urine Appearance Turbid H (Clear) Urine pH 6.0 (5.0-8.0) Ur Specific [place] 1.022 (1.001-1.035) Urine Protein 2+ H (Negative) Urine Glucose (UA) Negative (Negative) Urine Ketones Negative (Negative) Urine Blood Large H (Negative) Urine Nitrite Positive H (Negative) Urine Bilirubin Negative (Negative) Urine Urobilinogen <2.0 (<2.0) mg/dL Ur Leukocyte Esterase Large H (Negative) Urine RBC >182 H (0-5) /hpf Urine WBC >182 H (0-5) /hpf Ur Squamous Epith Cells 3 (0-4) /hpf Calcium Oxalate Crystal Moderate H (None) /hpf Urine Bacteria Few H (None) /hpf Urine Mucus Few H (None) /hpf Disposition Clinical Impression: Ventral hernia, Small bowel obstruction Disposition: ADMITTED IP TO THIS [facility] Referrals: Terence Lopez MD [Primary Care Provider] - 1-2 days Time of Disposition: 11:06
[2021-01-05 09:33] LABS: Basophils # (A) 0.1 k/uL (0-0.2); Basophils % (A) 1 %; Eosinophils # (A) 0.4 k/uL (0-0.7); Eosinophils % (A) 3 %; HCT 44.7 % (34.0-46.0); HGB 14.2 gm/dL (11.4-16.0); Lymphocytes # (A) 2.6 k/uL (1.0-4.8); Lymphocytes % (A) 20 %; MCH 32.7 pg (25.0-35.0); MCHC 31.8 g/dL (31.0-37.0); MCV 102.9 fL (80.0-100.0); Macrocytosis Slight; Mean Platelet Volume 8.4; Monocytes # (A) 0.9 k/uL (0-1.0); Monocytes % (A) 7 %; Neutrophils # (A) 9.1 k/uL (1.3-7.7); Neutrophils % (A) 69 %; Platelet Count 223 k/uL (150-450); RBC 4.34 m/uL (3.80-5.40); RDW 12.4 % (11.5-15.5); WBC 13.2 k/uL (3.8-10.6)
[2021-01-05 09:57] LABS: Appearance,Urine Turbid (Clear); Bacteria,Urine Few /hpf; Bilirubin,Urine Negative (Negative); Blood,Urine Large (Negative); Calcium Oxalate Crystals,Urine Moderate /hpf; Color,Urine Light Red; Glucose,Urine (UA) Negative (Negative); Ketones,Urine Negative (Negative); Leukocyte Esterase,Urine Large (Negative); Mucus,Urine Few /hpf; Nitrite,Urine Positive (Negative); Protein,Urine 2+ (Negative); RBC,Urine >182 /hpf (0-5); Specific Gravity,Urine 1.022 (1.001-1.035); Squamous Epithelial Cell,Urine 3 /hpf (0-4); Urobilinogen,Urine <2.0 mg/dL (<2.0); WBC,Urine >182 /hpf (0-5)
[2021-01-05 10:01] LABS: Albumin 3.8 g/dL (3.5-5.0); Total Protein 6.6 g/dL (6.3-8.2)
[2021-01-05 10:18] LABS: Calcium 10.1 mg/dL (8.4-10.2); Potassium 3.9 mmol/L (3.5-5.1); Total Bilirubin 0.6 mg/dL (0.2-1.3)
--- NOTE | 2021-01-05 10:22 | CT ---
EXAMINATION TYPE: CT abdomen pelvis wo con DATE OF EXAM: 01/05/2021 HISTORY: Generalized pain. CT DLP: 791.9 mGycm. Automated Exposure Control for Dose Reduction was Utilized. TECHNIQUE: CT scan of the abdomen and pelvis is performed without oral or IV contrast. COMPARISON: CT abdomen and pelvis May 27, 2018 FINDINGS: Within the limitations of a non-contrast study, the following observations are made. LUNG BASES: No significant abnormality is appreciated. LIVER/GB: Cholecystectomy clips are redemonstrated. PANCREAS: No significant abnormality is seen. SPLEEN: Spleen is surgically absent. ADRENALS: No significant abnormality is seen. KIDNEYS: Less prominent 4 mm nonobstructing calculus left kidney lower pole level on image 64. Large staghorn type calculus filling upper to mid pole calyx right kidney coronal image 61 which demonstrat ed measuring 2.6 cm long axis. Stable 5 mm lower pole right renal calculus coronal image 54. No hydro nephrosis noted bilaterally. BOWEL: Moderate-sized hiatal hernia is redemonstrated. Slightly suboptimal evaluation of bowel withou t enteric contrast. There is predominantly nondilated small and large bowel loops. There are scattere d colonic diverticula are redemonstrated. No CT evidence for acute diverticulitis. Surgical changes s igmoid rectal colon redemonstrated. Low lying cecum into the right pelvis is again seen. There are so me prominent dilated fluid-filled small bowel loops in the anterior left mid to lower abdomen up to 3 .5 cm. There is overlying vertical scar in the midline redemonstrated. At this incision there is pers istent focal eventration or possible hernia defect containing dilated fluid-filled small bowel loop w hich is wider neck axial image 83. On current study there is a larger left-sided spigelian hernia axi al image 79-containing fat and small mesenteric vessels along with nondilated fluid-filled small johanna l loops. There are prominent and dilated intraperitoneal small bowel loops contiguous with both level s. Transition point may be related to adhesion along the deeper central eventration of the midline ax ial image 70. Transition point also may be present within the dilated small bowel from the lateral wa ll eventration or hernia comes back towards the peritoneal cavity near the origin of the left spigeli an hernia axial image 82. Nondilated small bowel loops in the pelvis are noted. GENITAL ORGANS: Anteverted uterus projecting to right of midline redemonstrated. LYMPH NODES: No greater than 1cm abdominal or pelvic lymph nodes are appreciated. OSSEOUS STRUCTURES: No significant abnormality is seen. OTHER: No significant additional abnormality is seen. IMPRESSION: Larger wide neck ventral wall eventration or hernia. Larger left mid abdominal spigelian hernia both containing fluid-filled small bowel loops. Spigelian hernia has prominent small bowel loo ps and the ventral wall eventration or hernia has dilated small bowel loops. Some additional dilated small bowel loops appear within the intraperitoneal cavity. 2 sites of possible adhesion noted as det rachel above. Advise surgical consultation for developing left mid to lower abdominal small bowel obst ruction.
[2021-01-05] MEDS ORDERED: HYDROmorphone 0.5 MG/0.5 ML SYRINGE IVP STA (10:48)
[2021-01-05] MEDS ORDERED: PIPERACILLIN-TAZOBACTAM 3.375 GM in SODIUM CHLORIDE 0.9% 100 ML IVPB STA (11:09)
[2021-01-05] MEDS ORDERED: SODIUM CHLORIDE 0.9% 1,000 ML IV ONE (11:23)
--- NOTE | 2021-01-05 12:23 | XR ---
EXAMINATION TYPE: XR chest 1V confirm line [facility] DATE OF EXAM: 01/05/2021 COMPARISON: 05/27/2018 INDICATION: NG tube placement TECHNIQUE: Single frontal view of the chest is obtained. FINDINGS: The heart size is normal. The pulmonary vasculature is normal. The lungs are clear. There may be a hiatal hernia present. The nasogastric tube is evident in the midline. Tip is in the upper level of the thoracic region. Thi s needs to be advanced 23 cm to approach on normal positioning within the stomach. IMPRESSION: 1. No acute pulmonary process. 2. Nasogastric tube high within the thorax on is be advanced an estimated 23 cm for more normal posit ioning. 3. A hiatal hernia appears to be present
--- NOTE | 2021-01-05 13:27 | XR ---
EXAMINATION TYPE: XR chest 1V confirm line [facility] DATE OF EXAM: 01/05/2021 COMPARISON: 6 3 same date at earlier time HISTORY: NG tube repositioning TECHNIQUE: Single frontal view of the chest is obtained. FINDINGS: Exam is somewhat limited technically. NG tube is present, distal tip is not included on th e exam however the tube is coursing through the region of the left upper quadrant towards the right h emiabdomen, patient is rotated. No other significant interval change. IMPRESSION: Interval NG tube repositioning as described
[2021-01-05] MEDS: ONDANSETRON 4 MG/2 ML VIAL IVP PRN (15:10)
--- NOTE | 2021-01-05 16:45 | P.GSCN ---
History of Present Illness Consult date: 01/05/21 History of present illness: CHIEF COMPLAINT: Abdominal pain HISTORY OF PRESENT ILLNESS: This is a 70-year-old female who presented with upper and mid abdominal pain. She reports the pain came on suddenly. She has been having nausea and vomiting. She has had 4 episodes of emesis. She did have a small bowel movement early this morning with some flatus. Computed to mography scan had shown evidence of a small bowel obstruction likely due to her abdominal hernia. Surgical consult was requested for small bowel obstruction. Patient does have NG tube in place. She denies any fever, chills or sweats. Patient seen and examined with Dr. campbell PAST MEDICAL HISTORY: Bowel obstruction, abdominal wall hernia, Atrial Fibrillation, Asthma, Cancer, Heart Failure, COPD, GERD/Reflux, Renal Disease, Respiratory Disorder PAST SURGICAL HISTORY: History of diverticular perforation with lower anterior resection and colostomy with eventual colostomy reversal, splenectomy, repair of incarcerated parastomal hernia and incisional incarcerated hernia. appendectomy and cholecystectomy MEDICATIONS: See list. ALLERGIES: See list. SOCIAL HISTORY: No illicit drug use. REVIEW OF SYSTEMS: CONSTITUTIONAL: Denies fever or chills. HEENT: Denies blurred vision, vision changes, or eye pain. Denies hemoptysis CARDIOVASCULAR: Denies chest pain or pressure. RESPIRATORY: No shortness of breath. GASTROINTESTINAL: See HPI for pertinent findings HEMATOLOGIC: Denies bleeding disorders. GENITOURINARY: Denies any blood in urine or increased urinary frequency. SKIN: Denies pruitis. Denies rash. PHYSICAL EXAM: VITAL SIGNS: Reviewed GENERAL: Well-developed in no acute distress. HEENT: No sclera icterus. Extraocular movements grossly intact. Moist buccal mucosa. Head is atraumatic, normocephalic. No nasal drainage. ABDOMEN: Soft. Distended. Diffuse tenderness. Palpable ventral wall hernia NEUROLOGIC: Alert and oriented. Cranial nerves II through XII grossly intact. LABORATORY DATA: WBC is 13.2 hemoglobin 14.2 platelets 223 Sodium 137 potassium 3.9 BUN 20 creatinine 0.99 glucose 105 LFTs normal lipase normal Urinalysis positive for UTI COVID-19 not detected IMAGING: Computed tomography scan abdomen and pelvis shows larger wide neck ventral even tration or hernia. Larger left mid abdominal spigelian hernia both containing fluid-filled small bowel loops. Spigelian hernia is prominent small bowel loops and the ventral wall eventration or hernia has dilated small bowel loops . Some additional dilated small bowel loops appear with in the intraperitoneal cavity. 2 sites of possible adhesions noted. Advised surgical consultation for develo ping left mid to lower abdominal small bowel obstruction ASSESSMENT: 1. Small bowel obstruction secondary to left mid abdominal spigelian hernia and ventral hernia and possible adhesions 2. History of Multiple abdominal surgeries PLAN: -Place NG tube for decompression -Keep patient nothing by mouth -Continue antibiotics for UTI -Continue pain medication as needed -Continue IV fluids -Hold Eliquis due to possible need for surgical intervention Thank you for this consultation Physician Theoretical Physics Teacher note has been reviewed by physician. Signing provider agrees with the documented findings, assessment, and plan of care. Past Medical History Past Medical History: Atrial Fibrillation, Asthma, Cancer, Heart Failure, COPD, GERD/Reflux, Renal Disease, Respiratory Disorder Additional Past Medical History / Comment(s): Past diverticular perforation with surgery/colostomy with eventual reversal, bowel obstruction, home oxygen at HS 2L/NC, compression fractures T7 and T12 and L2 spine, chronic low back pain, osteoporosis, UTIs, sepsis, kidney stone, anemia, skin cancer with removal. History of Any Multi-Drug Resistant Organisms: None Reported Past Surgical History: Appendectomy, Bowel Resection, Cholecystectomy Additional Past Surgical History / Comment(s): Colonoscopies, bowel resection d/t perforation with colostomy, attempted colostomy reversal then exploratory lap with extensive lysis of adhesions, reversal of colostomy/repair of peristomal and incisional hernia/take down splenic flexure and partial omenectomy/spleenectomy, L eye cataract removed and repair of macular hole, cystoscopy-retrograde pyeloureterogram with stone removal, skin cancer removal. Past Anesthesia/Blood Transfusion Reactions: No Reported Reaction Past Psychological History: No Psychological Hx Reported Additional Psychological History / Comment(s): Pt resides alone. She has home O2 which she wears at HS and a nebulizer. She uses a cane to ambulate and owns a walker. She drives. Smoking Status: Never smoker Past Alcohol Use History: None Reported Past Drug Use History: None Reported - Past Family History Mother Family Medical History: Cancer Additional Family Medical History / Comment(s): COLON CANCER Father Family Medical History: Cancer Additional Family Medical History / Comment(s): stomach CA at age 95 Brother(s) Family Medical History: No Reported History Son(s) Family Medical History: No Reported History Medications and Allergies Home Medications Medication Instructions Recorded Confirmed Type Albuterol Nebulized [Ventolin 2.5 mg INHALATION RT-TID PRN 07/22/16 01/05/21 History Nebulized] Albuterol Sulfate [Proventil Hfa] 2 puff INHALATION RT-Q6H PRN 07/22/16 01/05/21 History Budesonide/Formoterol Fumarate 2 puff INHALATION RT-BID 07/22/16 01/05/21 History [Symbicort 160-4.5 Mcg Inhaler] Montelukast [Singulair] 10 mg PO HS 07/22/16 01/05/21 History Flecainide [Tambocor] 50 mg PO BID 01/19/18 01/05/21 History Folic Acid 1 mg PO DAILY 01/19/18 01/05/21 History Apixaban [Eliquis] 5 mg PO BID 05/25/18 01/05/21 History Diltiazem HCl [Cartia Xt] 180 mg PO QAM 05/25/18 01/05/21 History predniSONE 5 mg PO DAILY 05/27/18 01/05/21 History Ascorbic Acid [Vitamin C] 1,000 mg PO DAILY 01/05/21 01/05/21 History Calcitonin-[place] 1 spray NASAL DIRECTED 01/05/21 01/05/21 History Calcium/Vitamin D Chewable 1 tab PO DAILY 01/05/21 01/05/21 History D-[place] 1,400 mg PO DAILY 01/05/21 01/05/21 History Fennel Tea 1 dose PO DAILY PRN 01/05/21 01/05/21 History Magnesium Oxide [Mag-Ox] 400 mg PO DAILY 01/05/21 01/05/21 History Allergies Allergy/AdvReac Type Severity Reaction Status Date / Time furosemide [From Lasix] Allergy Rash/Hives Verified 01/05/21 11:48 morphine AdvReac Hallucinati Verified 01/05/21 11:48 ons Surgical - Exam Vital Signs Temp Pulse Resp BP Pulse Ox 98 F 77 18 142/86 95 01/05/21 09:03 01/05/21 09:03 01/05/21 09:03 01/05/21 09:03 01/05/21 09:03 Results - Labs 01/05/21 09:18 01/05/21 09:18 Abnormal Lab Results - Last 24 Hours (Table) 01/05/21 01/05/21 01/05/21 Range/Units 09:18 09:18 09:29 WBC 13.2 H (3.8-10.6) k/uL MCV 102.9 H (80.0-100.0) fL Neutrophils # 9.1 H (1.3-7.7) k/uL BUN 20 H (7-17) mg/dL Glucose 105 H (74-99) mg/dL Urine Appearance Turbid H (Clear) Urine Protein 2+ H (Negative) Urine Blood Large H (Negative) Urine Nitrite Positive H (Negative) Ur Leukocyte Esterase Large H (Negative) Urine RBC >182 H (0-5) /hpf Urine WBC >182 H (0-5) /hpf Calcium Oxalate Crystal Moderate H (None) /hpf Urine Bacteria Few H (None) /hpf Urine Mucus Few H (None) /hpf Microbiology - Last 24 Hours (Table) 01/05/21 09:29 Urine Culture - Preliminary Urine,Clean Catch Diabetes panel 01/05/21 Range/Units 09:18 Sodium 137 (137-145) mmol/L Potassium 3.9 (3.5-5.1) mmol/L Chloride 101 (98-107) mmol/L Carbon Dioxide 28 (22-30) mmol/L BUN 20 H (7-17) mg/dL Creatinine 0.99 (0.52-1.04) mg/dL Glucose 105 H (74-99) mg/dL Calcium 10.1 (8.4-10.2) mg/dL AST 26 (14-36) U/L ALT 10 (4-34) U/L Alkaline Phosphatase 99 (38-126) U/L Total Protein 6.6 (6.3-8.2) g/dL Albumin 3.8 (3.5-5.0) g/dL Calcium panel 01/05/21 Range/Units 09:18 Calcium 10.1 (8.4-10.2) mg/dL Albumin 3.8 (3.5-5.0) g/dL Pituitary panel 01/05/21 Range/Units 09:18 Sodium 137 (137-145) mmol/L Potassium 3.9 (3.5-5.1) mmol/L Chloride 101 (98-107) mmol/L Carbon Dioxide 28 (22-30) mmol/L BUN 20 H (7-17) mg/dL Creatinine 0.99 (0.52-1.04) mg/dL Glucose 105 H (74-99) mg/dL Calcium 10.1 (8.4-10.2) mg/dL Adrenal panel 01/05/21 Range/Units 09:18 Sodium 137 (137-145) mmol/L Potassium 3.9 (3.5-5.1) mmol/L Chloride 101 (98-107) mmol/L Carbon Dioxide 28 (22-30) mmol/L BUN 20 H (7-17) mg/dL Creatinine 0.99 (0.52-1.04) mg/dL Glucose 105 H (74-99) mg/dL Calcium 10.1 (8.4-10.2) mg/dL Total Bilirubin 0.6 (0.2-1.3) mg/dL AST 26 (14-36) U/L ALT 10 (4-34) U/L Alkaline Phosphatase 99 (38-126) U/L Total Protein 6.6 (6.3-8.2) g/dL Albumin 3.8 (3.5-5.0) g/dL
[2021-01-05] MEDS: HYDROmorphone 0.5 MG/0.5 ML SYRINGE IVP PRN (18:43)
[2021-01-05] MEDS: SYMBICORT 160-4.5 MCG INHALER INHALATION SCH (19:40)
[2021-01-05] MEDS: ALBUTEROL NEBULIZED 2.5 MG/3 ML INHALATION PRN (19:45)
[2021-01-05] MEDS: PIPERACILLIN-TAZOBACTAM 3.375 GM in SODIUM CHLORIDE 0.9% 100 ML IVPB SCH (20:05)
[2021-01-05] MEDS: MONTELUKAST 10 MG TAB PO SCH (20:05)
[2021-01-05] MEDS: FLECAINIDE 50 MG TAB PO SCH (20:44)
[2021-01-06] MEDS: HYDROmorphone 0.5 MG/0.5 ML SYRINGE IVP PRN ×4 (00:57→20:18)
[2021-01-06] MEDS: PIPERACILLIN-TAZOBACTAM 3.375 GM in SODIUM CHLORIDE 0.9% 100 ML IVPB SCH ×3 (05:30→20:18)
[2021-01-06 05:51] LABS: Glucose,Whole Blood 91 mg/dL (75-99)
[2021-01-06] MEDS: ONDANSETRON 4 MG/2 ML VIAL IVP PRN (05:51)
[2021-01-06] MEDS: ALBUTEROL NEBULIZED 2.5 MG/3 ML INHALATION PRN (08:02)
[2021-01-06] MEDS: SYMBICORT 160-4.5 MCG INHALER INHALATION SCH ×2 (08:02→21:28)
--- NOTE | 2021-01-06 12:45 | P.PN ---
Progress Note - Text Progress Note Date: 01/06/21 Patient has received nasogastric tube decompression overnight. She feels better. Her abdomen soft. She's had some minimal flatus. On exam vitals are stable. Abdomen soft. Hernia is soft. History of incisional hernia. Patient's small bowel obstruction appears to be improving. She will remain with a nasogastric tube decompression today.
[2021-01-06] MEDS ORDERED: ACETAMINOPHEN TAB 325 MG TAB PO STA (15:09)
[2021-01-06] MEDS: DILTIAZEM CD 180 MG CAP.ER.24H PO SCH (19:21)
[2021-01-06] MEDS: FLECAINIDE 50 MG TAB PO SCH ×2 (19:21→20:17)
[2021-01-06] MEDS: predniSONE 5 MG TAB PO SCH (19:22)
[2021-01-06] MEDS: MONTELUKAST 10 MG TAB PO SCH (20:17)
[2021-01-06] MEDS ORDERED: FLECAINIDE 50 MG TAB ONE (23:59)
[2021-01-06] MEDS ORDERED: PIPERACILLIN-TAZOBACTAM 3.375 GM VIAL ONE (23:59)
[2021-01-06] MEDS ORDERED: SODIUM CHLORIDE 0.9% 100 ML BAG ONE (23:59)
[2021-01-06] MEDS ORDERED: predniSONE 5 MG TAB ONE (23:59)
[2021-01-06] MEDS ORDERED: DILTIAZEM CD 180 MG CAP.ER.24H PO ONE (23:59)
[2021-01-06] MEDS ORDERED: ALBUTEROL NEBULIZED 2.5 MG/3 ML INHALATION ONE (23:59)
[2021-01-07] MEDS: HYDROmorphone 0.5 MG/0.5 ML SYRINGE IVP PRN ×4 (02:05→21:46)
[2021-01-07] MEDS: ONDANSETRON 4 MG/2 ML VIAL IVP PRN ×3 (02:05→16:40)
[2021-01-07] MEDS: PIPERACILLIN-TAZOBACTAM 3.375 GM in SODIUM CHLORIDE 0.9% 100 ML IVPB SCH ×3 (04:07→21:45)
[2021-01-07] MEDS: ALBUTEROL NEBULIZED 2.5 MG/3 ML INHALATION PRN ×2 (08:15→19:46)
[2021-01-07] MEDS: SYMBICORT 160-4.5 MCG INHALER INHALATION SCH ×2 (08:15→19:46)
[2021-01-07] MEDS: predniSONE 5 MG TAB PO SCH (11:08)
[2021-01-07] MEDS: ACETAMINOPHEN TAB 325 MG TAB PO PRN ×2 (11:09→16:03)
[2021-01-07] MEDS: DILTIAZEM CD 180 MG CAP.ER.24H PO SCH (11:32)
[2021-01-07] MEDS: FLECAINIDE 50 MG TAB PO SCH ×2 (11:32→21:46)
--- NOTE | 2021-01-07 12:27 | P.PN ---
Progress Note - Text Progress Note Date: 01/07/21 Patient feels better. She's passed some gas. On exam vital signs are stable. Abdomen soft. Resolving partial small bowel charge. Patient will have her nasogastric tube removed today. We will start on clear liquids.
[2021-01-07] MEDS: MONTELUKAST 10 MG TAB PO SCH (21:46)
[2021-01-08] MEDS: ONDANSETRON 4 MG/2 ML VIAL IVP PRN (00:57)
[2021-01-08] MEDS: HYDROmorphone 0.5 MG/0.5 ML SYRINGE IVP PRN ×4 (00:58→20:36)
[2021-01-08] MEDS: PIPERACILLIN-TAZOBACTAM 3.375 GM in SODIUM CHLORIDE 0.9% 100 ML IVPB SCH ×3 (04:02→20:34)
[2021-01-08] MEDS: ACETAMINOPHEN TAB 325 MG TAB PO PRN (07:40)
[2021-01-08] MEDS: DILTIAZEM CD 180 MG CAP.ER.24H PO SCH (07:41)
[2021-01-08] MEDS: predniSONE 5 MG TAB PO SCH (07:41)
[2021-01-08] MEDS: FLECAINIDE 50 MG TAB PO SCH ×2 (07:41→20:35)
[2021-01-08] MEDS: SYMBICORT 160-4.5 MCG INHALER INHALATION SCH ×2 (07:42→19:31)
--- NOTE | 2021-01-08 08:40 | P.GSHP ---
History of Present Illness H&P Date: 01/05/21 CHIEF COMPLAINT: Abdominal pain HISTORY OF PRESENT ILLNESS: This is a 70-year-old female who presented with upper and mid abdominal pain. She reports the pain came on suddenly. She has been having nausea and vomiting. She has had 4 episodes of emesis. She did have a small bowel movement early this morning with some flatus. Computed tomography scan had shown evidence of a small bowel obstruction likely due to her abdominal hernia. Surgical consult was requested for small bowel obstruction. Patient does have NG tube in place. She denies any fever, chills or sweats. Patient seen and examined with Dr. campbell PAST MEDICAL HISTORY: Bowel obstruction, abdominal wall hernia, Atrial Fibrillation, Asthma, Cancer, Heart Failure, COPD, GERD/Reflux, Renal Disease, Respiratory Disorder PAST SURGICAL HISTORY: History of diverticular perforation with lower anterior resection and colostomy with eventual colostomy reversal, splenectomy, repair of incarcerated parastomal hernia and incisional incarcerated hernia. appendectomy and cholecystectomy MEDICATIONS: See list. ALLERGIES: See list. SOCIAL HISTORY: No illicit drug use. REVIEW OF SYSTEMS: CONSTITUTIONAL: Denies fever or chills. HEENT: Denies blurred vision, vision changes, or eye pain. Denies hemoptysis CARDIOVASCULAR: Denies chest pain or pressure. RESPIRATORY: No shortness of breath. GASTROINTESTINAL: See HPI for pertinent findings HEMATOLOGIC: Denies bleeding disorders. GENITOURINARY: Denies any blood in urine or increased urinary frequency. SKIN: Denies pruitis. Denies rash. PHYSICAL EXAM: VITAL SIGNS: Reviewed GENERAL: Well-developed in no acute distress. HEENT: No sclera icterus. Extraocular movements grossly intact. Moist buccal mucosa. Head is atraumatic, normocephalic. No nasal drainage. ABDOMEN: Soft. Distended. Diffuse tenderness. Palpable ventral wall hernia NEUROLOGIC: Alert and oriented. Cranial nerves II through XII grossly intact. LABORATORY DATA: WBC is 13.2 hemoglobin 14.2 platelets 223 Sodium 137 potassium 3.9 BUN 20 creatinine 0.99 glucose 105 LFTs normal lipase normal Urinalysis positive for UTI COVID-19 not detected IMAGING: Computed tomography scan abdomen and pelvis shows larger wide neck ventral eventration or hernia. Larger left mid abdominal spigelian hernia both containing fluid-filled small bowel loops. Spigelian hernia is prominent small bowel loops and the ventral wall eventration or hernia has dilated small bowel loops . Some additional dilated small bowel loops appear with in the intraperitoneal cavity. 2 sites of possible adhesions noted. Advised surgical consultation for developing left mid to lower abdominal small bowel obstruction ASSESSMENT: 1. Small bowel obstruction secondary to left mid abdominal spigelian hernia and ventral hernia and possible adhesions 2. History of Multiple abdominal surgeries PLAN: -Place NG tube for decompression -Keep patient nothing by mouth -Continue antibiotics for UTI -Continue pain medication as needed -Continue IV fluids -Hold Eliquis due to possible need for surgical intervention Thank you for this consultation Physician Drug Abuse Resistance Education Officer note has been reviewed by physician. Signing provider agrees with the documented findings, assessment, and plan of care. Past Medical History Past Medical History: Atrial Fibrillation, Asthma, Cancer, Heart Failure, COPD, GERD/Reflux, Renal Disease, Respiratory Disorder Additional Past Medical History / Comment(s): Past diverticular perforation with surgery/colostomy with eventual reversal, bowel obstruction, home oxygen at HS 2L/NC, compression fractures T7 and T12 and L2 spine, chronic low back pain, osteoporosis, UTIs, sepsis, kidney stone, anemia, skin cancer with removal. History of Any Multi-Drug Resistant Organisms: None Reported Past Surgical History: Appendectomy, Bowel Resection, Cholecystectomy Additional Past Surgical History / Comment(s): Colonoscopies, bowel resection d/t perforation with colostomy, attempted colostomy reversal then exploratory lap with extensive lysis of adhesions, reversal of colostomy/repair of peristomal and incisional hernia/take down splenic flexure and partial omenectomy/spleenectomy, L eye cataract removed and repair of macular hole, cystoscopy-retrograde pyeloureterogram with stone removal, skin cancer removal. Past Anesthesia/Blood Transfusion Reactions: No Reported Reaction Past Psychological History: No Psychological Hx Reported Additional Psychological History / Comment(s): Pt resides alone. She has home O2 which she wears at HS and a nebulizer. She uses a cane to ambulate and owns a walker. She drives. Smoking Status: Never smoker Past Alcohol Use History: None Reported Past Drug Use History: None Reported - Past Family History Mother Family Medical History: Cancer Additional Family Medical History / Comment(s): COLON CANCER Father Family Medical History: Cancer Additional Family Medical History / Comment(s): stomach CA at age 95 Brother(s) Family Medical History: No Reported History Son(s) Family Medical History: No Reported History Medications and Allergies Home Medications Medication Instructions Recorded Confirmed Type Albuterol Nebulized [Ventolin 2.5 mg INHALATION RT-TID PRN 07/22/16 01/05/21 History Nebulized] Albuterol Sulfate [Proventil Hfa] 2 puff INHALATION RT-Q6H PRN 07/22/16 01/05/21 History Budesonide/Formoterol Fumarate 2 puff INHALATION RT-BID 07/22/16 01/05/21 History [Symbicort 160-4.5 Mcg Inhaler] Montelukast [Singulair] 10 mg PO HS 07/22/16 01/05/21 History Flecainide [Tambocor] 50 mg PO BID 01/19/18 01/05/21 History Folic Acid 1 mg PO DAILY 01/19/18 01/05/21 History Apixaban [Eliquis] 5 mg PO BID 05/25/18 01/05/21 History Diltiazem HCl [Cartia Xt] 180 mg PO QAM 05/25/18 01/05/21 History predniSONE 5 mg PO DAILY 05/27/18 01/05/21 History Ascorbic Acid [Vitamin C] 1,000 mg PO DAILY 01/05/21 01/05/21 History Calcitonin-[place] 1 spray NASAL DIRECTED 01/05/21 01/05/21 History Calcium/Vitamin D Chewable 1 tab PO DAILY 01/05/21 01/05/21 History D-Mannose 1,400 mg PO DAILY 01/05/21 01/05/21 History Fennel Tea 1 dose PO DAILY PRN 01/05/21 01/05/21 History Magnesium Oxide [Mag-Ox] 400 mg PO DAILY 01/05/21 01/05/21 History Allergies Allergy/AdvReac Type Severity Reaction Status Date / Time furosemide [From Lasix] Allergy Rash/Hives Verified 01/05/21 11:48 morphine AdvReac Hallucinati Verified 01/05/21 11:48 ons Surgical - Exam Vital Signs Temp Pulse Resp BP Pulse Ox 98 F 77 18 142/86 95 01/05/21 09:03 01/05/21 09:03 01/05/21 09:03 01/05/21 09:03 01/05/21 09:03 Results - Labs 01/05/21 09:18 01/05/21 09:18 Microbiology - Last 24 Hours (Table) 01/05/21 09:29 Urine Culture - Final Urine,Clean Catch Escherichia coli
[2021-01-08] MEDS: BUTALB/APAP/CAFF 50-325-40MG TAB PO PRN ×2 (11:21→20:35)
[2021-01-08 12:00] LABS: HGB 12.5 gm/dL (11.4-16.0); MCH 33.7 pg (25.0-35.0); MCHC 31.9 g/dL (31.0-37.0); MCV 105.7 fL (80.0-100.0); Macrocytosis Slight; Mean Platelet Volume 8.3; Platelet Count 186 k/uL (150-450); RBC 3.69 m/uL (3.80-5.40); RDW 12.3 % (11.5-15.5)
[2021-01-08 12:11] LABS: ALT 40 U/L (4-34); AST 34 U/L (14-36); African American GFR (CKD) 78 (>60 ml/min/1.73 sqM); Albumin 3.1 g/dL (3.5-5.0); Albumin/Globulin Ratio 1.3; Alkaline Phosphatase 95 U/L (38-126); Anion Gap 4 mmol/L; Blood Urea Nitrogen 16 mg/dL (7-17); Calcium 8.4 mg/dL (8.4-10.2); Carbon Dioxide 29 mmol/L (22-30); Chloride 103 mmol/L (98-107); Globulin 2.4 g/dL; Glucose 109 mg/dL (74-99); Non-African American GFR(CKD) 67 (>60 ml/min/1.73 sqM); Potassium 4.2 mmol/L (3.5-5.1); Sodium 136 mmol/L (137-145); Total Bilirubin 0.6 mg/dL (0.2-1.3); Total Protein 5.5 g/dL (6.3-8.2)
--- NOTE | 2021-01-08 15:23 | P.CONS ---
History of Present Illness - Reason for Consult Consult date: 01/08/21 - History of Present Illness HISTORY OF PRESENT ILLNESS This is 70-year-old female patient of Dr. John zarco with past medical history of paroxysmal atrial fibrillation moderate intermittent asthma on chronic prednisone at 5 mg daily and follows with Dr. Gallardo, home O2 at 2 L at bedtime only, history of compression fracture of L2, T12 and T7, gastroesophageal reflux disease, hypertension, history of colostomy subsequent reversal with exploratory laparotomy and extensive lysis of adhesions, splenectomy, repair of incarcerated parastomal hernia and repair of incisional incarcerated hernia January [address] Boyer. Patient came into [facility] emergency center on January 05. CAT scan of the abdomen and pelvis with contrast revealed larger wide neck ventral wall eventration or hernia. Larger left mid abdominal spigelian hernia containing fluid filled small bowel loops. Spigelian hernia has prominent small bowel loops and the ventral wall eventration or hernia has dilated small bowel loops. Some additional dilated small bowel loops appear within the intraperitoneal cavity. 2 sites of possible adhesions noted. Chest x-ray reveals no acute pulmonary process, NG tube high in the thorax, hiatal hernia. Patient was admitted to general surgery service, NG tube was placed which has subsequently been removed and patient started on clear liquids. Patient states that she is tolerating clear liquids. She is complaining of severe headache which is related to caffeine withdrawal. Fioricet ordered. Patient has been on IV Zosyn. Eliquis is been on hold. Patient has been afebrile, heart rate in the 80s and 90s, pulse ox 94% on room air. WBC is 7, hemoglobin 12.5. Platelet count 186. Sodium 136 otherwise electrolytes are normal, creatinine 0.88. ALT 40. Urinalysis on 01 05 was turbid, blood large, nitrate positive, leukoesterase large, RBCs greater than 182 and WBCs greater than 182, urine culture is finalized with pansensitive E. coli. Patient states that she has not had a bowel movement for 2 days. Patient is only reaching 750 ML's on incentive spirometry. REVIEW OF SYSTEMS Constitutional: No fever, no chills, no night sweats. No weight change. No weakness, fatigue or lethargy. No daytime sleepiness. EENT: No headache. No blurred vision or double vision, no loss of vision. No loss of Hearing, no ringing in the ears, no dizziness. No nasal drainage or congestion. No epistaxis. No sore throat. Lungs: No shortness of breath, cough, no sputum production. No wheezing. Cardiovascular: No chest pain, no lower extremity edema. No palpitations. No paroxysmal nocturnal dyspnea. No orthopnea. No lightheadedness or dizziness. No syncopal episodes. Abdominal: Mild generalized abdominal pain. No nausea, vomiting. No diarrhea. Reports constipation. No bloody or tarry stools reports loss of appetite. Genitourinary: No dysuria, increased frequency, urgency. No urinary retention. Musculoskeletal: No myalgias. No muscle weakness, no gait dysfunction, no frequent falls. No back pain. No neck pain. Integumentary: No wounds, no lesions. No rash or pruritus. No unusual bruising. No change in hair or nails. Neurologic: No aphasia. No facial droop. No change in mentation. No head injury. No headache. No paralysis. No paresthesia. Psychiatric: No depression. No anxiety. No mood swings. Endocrine: No abnormal blood sugars. No weight change. No excessive sweating or thirst. No cold intolerance. SOCIAL HISTORY Patient is a lifelong nonsmoker, no alcohol use, marijuana use or illicit drug use. FAMILY HISTORY Mother at age of 82 from colon cancer and she also had history of asthma. Father is 92-year-old has no major medical problems. Patient has one brother no medical issues. Patient has 2 sons no major medical problems. PHYSICAL EXAMINATION Gen: This is a obese 70-year-old female. Patient is resting in bed and appears to be comfortable and in no acute distress. HEENT: Head is atraumatic, normocephalic. Pupils equal, round. Sclerae is anicteric. NECK: Supple. No JVD. No lymphadenopathy. No thyromegaly. LUNGS: Clear to auscultation. No wheezes or rhonchi. No intercostal retractions . HEART: Regular rate and rhythm. No murmur. ABDOMEN: Soft. Bowel sounds are present. No masses. Mild generalized tenderness. EXTREMITIES: No pedal edema. No calf tenderness. Dorsalis pedis +2 rosa aterally. NEUROLOGICAL: Patient is awake, alert and oriented x3. Cranial nerves 2 through 12 are grossly intact. ASSESSMENT AND PLAN 1. Small bowel obstruction secondary to left mid abdominal spigelian hernia and ventral hernia and possible adhesions. Continue current plan per general surgery. NG tube is out, clear liquid diet, continue current pain management, Zosyn, Zofran as needed for nausea, Dilaudid for pain or Tylenol for pain. Hold eliquis until cleared by general surgery to resume 2. Moderate intermittent asthma. Continue prednisone 5 mg daily, Symbicort 2 puffs twice daily, albuterol nebulizer treatment 3 times daily as needed, Singulair 10 mg at bedtime. 3. Headache secondary to caffeine withdrawal. Fioricet ordered. 4. Paroxysmal atrial fibrillation. Resume eliquis once cleared by general surgery. Continue flecainid 50 mg twice daily,. 5. History of compression fracture, stable.. 6. Gastroesophageal reflux disease.Patient will be started on Protonix 7. DVT prophylaxis. SCDs. Resume eliquis once cleared by general surgery. DISCHARGE PLAN Most likely home. Impression and plan of care have been directed as dictated by the signing physician. Sue Castro nurse practitioner acting as scribe for signing physician. Past Medical History Past Medical History: Atrial Fibrillation, Asthma, Cancer, Heart Failure, COPD, GERD/Reflux, Renal Disease, Respiratory Disorder Additional Past Medical History / Comment(s): Past diverticular perforation with surgery/colostomy with eventual reversal, bowel obstruction, home oxygen at HS 2L/NC, compression fractures T7 and T12 and L2 spine, chronic low back pain, osteoporosis, UTIs, sepsis, kidney stone, anemia, skin cancer with removal. History of Any Multi-Drug Resistant Organisms: None Reported Past Surgical History: Appendectomy, Bowel Resection, Cholecystectomy Additional Past Surgical History / Comment(s): Colonoscopies, bowel resection d/t perforation with colostomy, attempted colostomy reversal then exploratory lap with extensive lysis of adhesions, reversal of colostomy/repair of peristomal and incisional hernia/take down splenic flexure and partial omenectomy/spleenectomy, L eye cataract removed and repair of macular hole, cystoscopy-retrograde pyeloureterogram with stone removal, skin cancer removal. Past Anesthesia/Blood Transfusion Reactions: No Reported Reaction Past Psychological History: No Psychological Hx Reported Additional Psychological History / Comment(s): Pt resides alone. She has home O2 which she wears at HS and a nebulizer. She uses a cane to ambulate and owns a walker. She drives. Smoking Status: Never smoker Past Alcohol Use History: None Reported Past Drug Use History: None Reported - Past Family History Mother Family Medical History: Cancer Additional Family Medical History / Comment(s): COLON CANCER Father Family Medical History: Cancer Additional Family Medical History / Comment(s): stomach CA at age 95 Brother(s) Family Medical History: No Reported History Son(s) Family Medical History: No Reported History Medications and Allergies Home Medications Medication Instructions Recorded Confirmed Type Albuterol Nebulized [Ventolin 2.5 mg INHALATION RT-TID PRN 07/22/16 01/05/21 History Nebulized] Albuterol Sulfate [Proventil Hfa] 2 puff INHALATION RT-Q6H PRN 07/22/16 01/05/21 History Budesonide/Formoterol Fumarate 2 puff INHALATION RT-BID 07/22/16 01/05/21 History [Symbicort 160-4.5 Mcg Inhaler] Montelukast [Singulair] 10 mg PO HS 07/22/16 01/05/21 History Flecainide [Tambocor] 50 mg PO BID 01/19/18 01/05/21 History Folic Acid 1 mg PO DAILY 01/19/18 01/05/21 History Apixaban [Eliquis] 5 mg PO BID 05/25/18 01/05/21 History Diltiazem HCl [Cartia Xt] 180 mg PO QAM 05/25/18 01/05/21 History predniSONE 5 mg PO DAILY 05/27/18 01/05/21 History Ascorbic Acid [Vitamin C] 1,000 mg PO DAILY 01/05/21 01/05/21 History Calcitonin-[place] 1 spray NASAL DIRECTED 01/05/21 01/05/21 History Calcium/Vitamin D Chewable 1 tab PO DAILY 01/05/21 01/05/21 History D-Mannose 1,400 mg PO DAILY 01/05/21 01/05/21 History Fennel Tea 1 dose PO DAILY PRN 01/05/21 01/05/21 History Magnesium Oxide [Mag-Ox] 400 mg PO DAILY 01/05/21 01/05/21 History Allergies Allergy/AdvReac Type Severity Reaction Status Date / Time furosemide [From Lasix] Allergy Rash/Hives Verified 01/05/21 11:48 morphine AdvReac Hallucinati Verified 01/05/21 11:48 ons Physical Exam Vitals: Vital Signs Temp Pulse Pulse Resp BP Pulse Ox 01/08/21 08:00 92 16 01/08/21 04:04 98.7 F 92 16 117/67 96 01/07/21 19:58 92 01/07/21 19:53 98.3 F 80 16 94/55 96 01/07/21 19:47 92 01/07/21 19:30 16 01/07/21 16:43 95 01/07/21 12:20 98.5 F 91 18 108/61 96 Intake and Output 01/07/21 01/08/21 01/08/21 22:59 06:59 14:59 Intake Total 100 100 Balance 100 100 Intake: Intake, IV Titration 100 100 Amount Piperacillin-Tazobactam 3 100 100 .375 gm In Sodium Chloride 0.9% 100 ml @ 25 mls/hr IVPB Q8H [facility] Rx#: [id number] Other: Voiding Method Toilet Toilet Bedside Commode Bedside Commode # Voids 1 Results CBC & Chem 7: 01/08/21 11:29 01/08/21 11:29 Labs: Microbiology - Last 24 Hours (Table) 01/05/21 09:29 Urine Culture - Final Urine,Clean Catch Escherichia coli
--- NOTE | 2021-01-08 15:25 | P.PN ---
Subjective Progress Note Date: 01/08/21 CHIEF COMPLAINT: Abdominal pain HISTORY OF PRESENT ILLNESS: Patient is hospitalized for a partial small bowel obstruction. Her NG tube was discontinued yesterday. She is currently on a clear liquid diet. She has had some nausea. Did have flatus. Last bowel movement 2 days ago. She reports a decrease in her abdominal pain. Her main complaint is a headache. Likely caffeine headache. Afebrile. Labs pending. Patient had a full liquid diet this afternoon. She reports increase in pain and rates it about a 3 out of 10. And she's only had a small amount of gas once today. No bowel movement. She ate some of the soup and ice cream. No vomiting. Patient is hesitant to be discharged. PHYSICAL EXAM: VITAL SIGNS: Reviewed. GENERAL: Well-developed in no acute distress. HEENT: No sclera icterus. Extraocular movements grossly intact. Moist buccal mucosa. Head is atraumatic, normocephalic. ABDOMEN: Soft. Mild distention. Tenderness to palpation in the left side abdomen. NEUROLOGIC: Alert and oriented. Cranial nerves II through XII grossly intact. ASSESSMENT: 1. Partial small bowel obstruction resolving 2. UTI with culture growing E. coli PLAN: -Advanced to full liquid diet -Encouraged patient ambulates -Continue antibiotic for UTI -Consult medicine service for medical management -Continue to observe patient Physician Real Estate Sales Supervisor note has been reviewed by physician. Signing provider agrees with the documented findings, assessment, and plan of care. Objective - Vital Signs Vital signs: Vital Signs Temp 98.7 F 01/08/21 04:04 Pulse 92 01/08/21 08:00 Resp 16 01/08/21 08:00 BP 117/67 01/08/21 04:04 Pulse Ox 96 01/08/21 04:04 Intake & Output 01/07/21 01/08/21 01/08/21 18:59 06:59 18:59 Intake Total 220 100 Balance 220 100 Intake: Intake, IV Titration 100 100 Amount Piperacillin-Tazobactam 3 100 100 .375 gm In Sodium Chloride 0.9% 100 ml @ 25 mls/hr IVPB Q8H [facility] Rx#: [id number] Oral 120 Other: Voiding Method Toilet Toilet Bedside Commode Bedside Commode # Voids 1 - Labs CBC & Chem 7: 01/08/21 11:29 01/08/21 11:29 Labs: Microbiology - Last 24 Hours (Table) 01/05/21 09:29 Urine Culture - Final Urine,Clean Catch Escherichia coli
[2021-01-08] MEDS: ALBUTEROL NEBULIZED 2.5 MG/3 ML INHALATION PRN (19:31)
[2021-01-08] MEDS: MONTELUKAST 10 MG TAB PO SCH (20:34)
[2021-01-09] MEDS: PIPERACILLIN-TAZOBACTAM 3.375 GM in SODIUM CHLORIDE 0.9% 100 ML IVPB SCH ×3 (04:18→21:36)
[2021-01-09] MEDS: PANTOPRAZOLE 40 MG TABLET PO SCH (07:39)
[2021-01-09] MEDS: DILTIAZEM CD 180 MG CAP.ER.24H PO SCH (07:39)
[2021-01-09] MEDS: FLECAINIDE 50 MG TAB PO SCH ×2 (07:40→21:35)
[2021-01-09] MEDS: predniSONE 5 MG TAB PO SCH (07:40)
[2021-01-09] MEDS: HYDROmorphone 0.5 MG/0.5 ML SYRINGE IVP PRN ×3 (08:33→21:35)
[2021-01-09] MEDS: ALBUTEROL NEBULIZED 2.5 MG/3 ML INHALATION PRN ×3 (08:48→21:47)
[2021-01-09] MEDS: SYMBICORT 160-4.5 MCG INHALER INHALATION SCH ×2 (08:48→21:48)
--- NOTE | 2021-01-09 13:43 | P.PN ---
Subjective Progress Note Date: 01/09/21 CHIEF COMPLAINT: Abdominal pain HISTORY OF PRESENT ILLNESS: Patient is hospitalized for a partial small bowel obstruction. Patient reports increase in her abdominal pain after eating. She was only able to eat a few bites of her old male and then had abdominal pain. She denies any nausea or vomiting. She did have a very hard bowel movement this morning. She is passing some flatus. Afebrile. PHYSICAL EXAM: VITAL SIGNS: Reviewed. GENERAL: Well-developed in no acute distress. HEENT: No sclera icterus. Extraocular movements grossly intact. Moist buccal mucosa. Head is atraumatic, normocephalic. ABDOMEN: Soft. Mild distention. Tenderness to palpation in the left side abdomen. NEUROLOGIC: Alert and oriented. Cranial nerves II through XII grossly intact. ASSESSMENT: 1. Partial small bowel obstruction 2. UTI with culture growing E. coli PLAN: -Patient scheduled for open repair of abdominal incisional hernia for tomorrow, 01/10/[address] Boyer -Continue full liquid diet for today and then nothing by mouth after midnight -Continue antibiotic for UTI -Patient's Eliquis currently on hold for surgical intervention -GI prophylaxis Protonix and DVT prophylaxis subcu heparin Physician Chemistry Faculty Member note has been reviewed by physician. Signing provider agrees with the documented findings, assessment, and plan of care. Objective - Vital Signs Vital signs: Vital Signs Temp 98.4 F 01/09/21 11:43 Pulse 77 01/09/21 12:09 Resp 14 01/09/21 11:43 BP 107/64 01/09/21 11:43 Pulse Ox 90 L 01/09/21 11:43 Intake & Output 01/08/21 01/09/21 01/09/21 18:59 06:59 18:59 Intake Total 120 450 Balance 120 450 Intake: Intake, IV Titration 100 Amount Piperacillin-Tazobactam 3 100 .375 gm In Sodium Chloride 0.9% 100 ml @ 25 mls/hr IVPB Q8H [facility] Rx#: [id number] Oral 120 350 Other: Voiding Method Toilet Toilet Toilet Bedside Commode # Voids 1 2 # Bowel Movements 1 - Labs CBC & Chem 7: 01/08/21 11:29 01/08/21 11:29
[2021-01-09 14:46] LABS: African American GFR (CKD) 89 (>60 ml/min/1.73 sqM); Anion Gap 9 mmol/L; Blood Urea Nitrogen 10 mg/dL (7-17); Calcium 8.5 mg/dL (8.4-10.2); Carbon Dioxide 25 mmol/L (22-30); Chloride 103 mmol/L (98-107); Glucose 142 mg/dL (74-99); Non-African American GFR(CKD) 78 (>60 ml/min/1.73 sqM); Potassium 3.9 mmol/L (3.5-5.1); Sodium 137 mmol/L (137-145)
[2021-01-09] MEDS: HEPARIN SODIUM,PORCINE/PF 5,000 UNIT/0.5 ML SYRINGE SQ SCH ×2 (15:10→20:00)
[2021-01-09] MEDS: ONDANSETRON 4 MG/2 ML VIAL IVP PRN (18:29)
[2021-01-09] MEDS: MONTELUKAST 10 MG TAB PO SCH (21:34)
[2021-01-09] MEDS: DOCUSATE 100 MG CAP PO SCH (21:35)
[2021-01-10] MEDS: HYDROmorphone 0.5 MG/0.5 ML SYRINGE IVP PRN ×5 (00:38→12:04)
[2021-01-10] MEDS: PIPERACILLIN-TAZOBACTAM 3.375 GM in SODIUM CHLORIDE 0.9% 100 ML IVPB SCH ×3 (04:26→20:24)
[2021-01-10] MEDS: ONDANSETRON 4 MG/2 ML VIAL IVP PRN (04:35)
[2021-01-10 06:19] LABS: HCT 37.7 % (34.0-46.0); HGB 11.9 gm/dL (11.4-16.0); MCHC 31.6 g/dL (31.0-37.0); MCV 104.3 fL (80.0-100.0); Macrocytosis Slight; Mean Platelet Volume 8.2; Platelet Count 191 k/uL (150-450); RBC 3.61 m/uL (3.80-5.40); RDW 12.6 % (11.5-15.5); WBC 6.6 k/uL (3.8-10.6)
[2021-01-10 06:35] LABS: African American GFR (CKD) 83 (>60 ml/min/1.73 sqM); Anion Gap 5 mmol/L; Blood Urea Nitrogen 9 mg/dL (7-17); Calcium 8.5 mg/dL (8.4-10.2); Carbon Dioxide 30 mmol/L (22-30); Chloride 104 mmol/L (98-107); Glucose 97 mg/dL (74-99); Non-African American GFR(CKD) 72 (>60 ml/min/1.73 sqM); Potassium 3.7 mmol/L (3.5-5.1); Sodium 139 mmol/L (137-145)
[2021-01-10] MEDS: SYMBICORT 160-4.5 MCG INHALER INHALATION SCH ×2 (07:34→20:20)
[2021-01-10] MEDS: ALBUTEROL NEBULIZED 2.5 MG/3 ML INHALATION PRN (07:34)
[2021-01-10] MEDS ORDERED: ONDANSETRON 4 MG/2 ML VIAL IVP ONE (07:41)
[2021-01-10] MEDS ORDERED: LIDOCAINE 1% (10MG/ML) FOR IV START INTRADERMA PRN (07:41)
--- NOTE | 2021-01-10 07:45 | P.PN ---
Subjective Progress Note Date: 01/09/21 HISTORY OF PRESENT ILLNESS This is 70-year-old female patient of Dr. John zarco with past medical history of paroxysmal atrial fibrillation moderate intermittent asthma on chronic pr ednisone at 5 mg daily and follows with Dr. Gallardo, home O2 at 2 L at bedtime only, history of compression fracture of L2, T12 and T7, gastroesophageal reflux disease, hypertension, history of colostomy subsequent reversal with exploratory laparotomy and extensive lysis of adhesions, splenectomy, repair of incarcerated parastomal hernia and repair of incisional incarcerated hernia January 2018 by Elijah Boyer. Patient came into [facility] emergency center on January 05. CAT scan of the abdomen and pelvis with contrast revealed larger wide neck ventral wall eventration or hernia. Larger left mid abdominal spigelian hernia containing fluid filled small bowel loops. Spigelian hernia has prominent small bowel loops and the ventral wall eventration or hernia has dilated small bowel loops. Some additional dilated small bowel loops appear within the intraperitoneal cavity. 2 sites of possible adhesions noted. Chest x-ray reveals no acute pulmonary process, NG tube high in the thorax, hiatal hernia. Patient was admitted to general surgery service, NG tube was placed which has subsequently been removed and patient started on clear liquids. Patient states that she is tolerating clear liquids. She is complaining of severe headache which is related to caffeine withdrawal. Fioricet ordered. Patient has been on IV Zosyn. Eliquis is been on hold. Patient has been afebrile, heart rate in the 80s and 90s, pulse ox 94% on room air. WBC is 7, hemoglobin 12.5. Platelet count 186. Sodium 136 otherwise electrolytes are normal, creatinine 0.88. ALT 40. Urinalysis on 01 05 was turbid, blood large, nitrate positive, leukoesterase large, RBCs greater than 182 and WBCs greater than 182, urine culture is finalized with pansensitive E. coli. Patient states that she has not had a bowel movement for 2 days. Patient is only reaching 750 ML's on incentive spirometry. 01/09: She states that she did have a bowel movement. She still has some abdominal pain. She states she is normally on MiraLAX at home which she has been advised to continue when she is discharged. Headache is completely gone after Fioricet. Patient states that she is tolerating diet without nausea or vomiting. She's been afebrile, blood pressure 107/64, heart rate 74, pulse ox 90% on room air. Her lites are normal, creatinine 0.78. Blood sugar 142. Medication reconciliation completed with anticipated discharge home today. REVIEW OF SYSTEMS Constitutional: No fever, no chills, no night sweats. No weight change. No weakness, fatigue or lethargy. No daytime sleepiness. EENT: No headache. No blurred vision or double vision, no loss of vision. No loss of Hearing, no ringing in the ears, no dizziness. No nasal drainage or congestion. No epistaxis. No sore throat. Lungs: No shortness of breath, cough, no sputum production. No wheezing. Cardiovascular: No chest pain, no lower extremity edema. No palpitations. No paroxysmal nocturnal dyspnea. No orthopnea. No lightheadedness or dizziness. No syncopal episodes. Abdominal: Mild generalized abdominal pain. No nausea, vomiting. No diarrhea. Denies constipation. No bloody or tarry stools reports loss of appetite. Genitourinary: No dysuria, increased frequency, urgency. No urinary retention. Musculoskeletal: No myalgias. No muscle weakness, no gait dysfunction, no frequent falls. No back pain. No neck pain. Integumentary: No wounds, no lesions. No rash or pruritus. No unusual bru ising. No change in hair or nails. Neurologic: No aphasia. No facial droop. No change in mentation. No head injury. No headache. No paralysis. No paresthesia. Psychiatric: No depression. No anxiety. No mood swings. Endocrine: No abnormal blood sugars. No weight change. No excessive sweating or thirst. No cold intolerance. PHYSICAL EXAMINATION Gen: This is a obese 70-year-old female. Patient is sitting up in in bed and appears to be comfortable and in no acute distress. HEENT: Head is atraumatic, normocephalic. Pupils equal, round. Sclerae is anicteric. NECK: Supple. No JVD. No lymphadenopathy. No thyromegaly. LUNGS: Clear to auscultation. No wheezes or rhonchi. No intercostal retractions. HEART: Regular rate and rhythm. No murmur. ABDOMEN: Soft. Bowel sounds are present. No masses. Mild generalized tenderness. EXTREMITIES: No pedal edema. No calf tenderness. Dorsalis pedis +2 bilaterally. NEUROLOGICAL: Patient is awake, alert and oriented x3. Cranial nerves 2 through 12 are grossly intact. ASSESSMENT AND PLAN 1. Small bowel obstruction secondary to left mid abdominal spigelian hernia and ventral hernia and possible adhesions. Continue current plan per general surgery. NG tube is out, clear liquid diet, continue current pain management, Zosyn, Zofran as needed for nausea, Dilaudid for pain or Tylenol for pain. Hold eliquis until cleared by general surgery to resume. It is very probable discharge home today. 2. Moderate intermittent asthma. Continue prednisone 5 mg daily, Symbicort 2 puffs twice daily, albuterol nebulizer treatment 3 times daily as needed, Singulair 10 mg at bedtime. 3. Headache secondary to caffeine withdrawal. Fioricet ordered. 4. Paroxysmal atrial fibrillation. Resume eliquis once cleared by general surgery. Continue flecainid 50 mg twice daily,. 5. History of compression fracture, stable.. 6. Gastroesophageal reflux disease.Patient will be started on Protonix 7. DVT prophylaxis. SCDs. Resume eliquis once cleared by general surgery. DISCHARGE PLAN Most likely home. Impression and plan of care have been directed as dictated by the signing physician. Sue Castro nurse practitioner acting as scribe for signing physici an. Objective - Vital Signs Vital signs: Vital Signs Temp 98.3 F 01/09/21 06:54 Pulse 83 01/09/21 09:59 Resp 14 01/09/21 08:00 BP 116/57 01/09/21 06:54 Pulse Ox 90 L 01/09/21 08:48 Intake & Output 01/08/21 01/09/21 01/09/21 18:59 06:59 18:59 Intake Total 120 450 Balance 120 450 Intake: Intake, IV Titration 100 Amount Piperacillin-Tazobactam 3 100 .375 gm In Sodium Chloride 0.9% 100 ml @ 25 mls/hr IVPB Q8H [facility] Rx#: [id number] Oral 120 350 Other: Voiding Method Toilet Toilet Toilet Bedside Commode # Voids 1 2 # Bowel Movements 1 - Labs CBC & Chem 7: 01/10/21 05:33 01/10/21 05:33 Labs: Abnormal Lab Results - Last 24 Hours (Table) 01/08/21 01/08/21 Range/Units 11:29 11:29 RBC 3.69 L (3.80-5.40) m/uL MCV 105.7 H (80.0-100.0) fL Sodium 136 L (137-145) mmol/L Glucose 109 H (74-99) mg/dL ALT 40 H (4-34) U/L Total Protein 5.5 L (6.3-8.2) g/dL Albumin 3.1 L (3.5-5.0) g/dL
[2021-01-10] MEDS: HEPARIN SODIUM,PORCINE/PF 5,000 UNIT/0.5 ML SYRINGE SQ SCH ×3 (08:01→20:23)
[2021-01-10] MEDS: PANTOPRAZOLE 40 MG TABLET PO SCH (08:02)
[2021-01-10] MEDS: DOCUSATE 100 MG CAP PO SCH ×2 (08:02→20:24)
[2021-01-10] MEDS: predniSONE 5 MG TAB PO SCH (08:08)
[2021-01-10] MEDS: DILTIAZEM CD 180 MG CAP.ER.24H PO SCH (08:09)
[2021-01-10] MEDS: FLECAINIDE 50 MG TAB PO SCH ×2 (08:09→20:24)
[2021-01-10] MEDS: BUTALB/APAP/CAFF 50-325-40MG TAB PO PRN (08:19)
[2021-01-10] MEDS: LACTATED RINGERS 1,000 ML IV SCH ×5 (08:55→23:07)
[2021-01-10] MEDS ORDERED: HYDROCORTISONE SUCCINATE 100 MG/2 ML VIAL IV ONE (09:21)
[2021-01-10] MEDS ORDERED: GLYCOPYRROLATE 0.2 MG/ML 2 ML VIAL ONE (09:35)
[2021-01-10] MEDS ORDERED: NEOSTIGMINE 1 MG/ML 10 ML VIAL ONE (09:35)
[2021-01-10] MEDS ORDERED: LIDOCAINE 1% INJ 10MG/ML (20 ML MDV) ONE (09:35)
[2021-01-10] MEDS ORDERED: fentaNYL (PF) 50 MCG/ML 2 ML AMP ONE (09:35)
[2021-01-10] MEDS ORDERED: KETAMINE 10 MG/ML 20 ML VIAL ONE (09:35)
[2021-01-10] MEDS ORDERED: SUCCINYLCHOLINE CHLORIDE 100 MG/5 ML SYR IV ONE (09:35)
[2021-01-10] MEDS ORDERED: PROPOFOL 10 MG/ML 20 ML VIAL IV ONE (09:35)
[2021-01-10] MEDS ORDERED: HYDROmorphone (PF) 1 MG/ML ONE (09:35)
[2021-01-10] MEDS ORDERED: ROCURONIUM 10 MG/ML (5 ML VIAL) IV ONE (09:35)
[2021-01-10] MEDS ORDERED: LACTATED RINGERS 1,000 ML IV ONE (11:16)
[2021-01-10] MEDS ORDERED: NALOXONE 0.4 MG/ML 1 ML VIAL IV PRN (11:16)
--- NOTE | 2021-01-10 11:16 | P.OP ---
Date of Procedure: 01/10/21 Preoperative Diagnosis: Incarcerated incisional hernia Postoperative Diagnosis: Incarcerated incisional hernia Extensive adhesions Procedure(s) Performed: Exposure laparotomy Lysis of extensive adhesions Repair of incarcerated incisional hernia with mesh Partial omentectomy Anesthesia: LESVIA Surgeon: Lucio Boyer Estimated Blood Loss (ml): 100 Pathology: other (omentum) Condition: stable Disposition: PACU Description of Procedure: Patient's placed on the operating table in the supine position. She received general anesthesia. Her abdomen was prepped and draped in sterile fashion. The patient had an obvious incisional hernia located along the midline scar. The skin was incised in the midline. The hernia sac was opened. The there were extensive adhesions in the pleural cavity. There was a second incarcerated incisional hernia located at the old colostomy site a loop of bowel was in the colostomy site. This was reduced. The prostate 35 minutes operative time used to lyse adhesions. The fascia was then closed using looped #1 PDS suture. 2 sutures used to close the fascia. The colostomy site with her parents, fascial closure. The fascia external oblique was exposed using cautery and then a Prolene mesh was placed over top the repair and secured with secure strap tacker. A ELENI drain is present top the repair and brought through separate stab incision Ajit's fascia with 0 Vicryl. Skin was closed with mundo. Patient top she will was sent to recovery in stable condition. Hernia size 20 x 5 cm Prolene flat mesh used for repair
--- NOTE | 2021-01-10 12:51 | P.PN ---
Subjective Progress Note Date: 01/10/21 HISTORY OF PRESENT ILLNESS This is 70-year-old female patient of Dr. John zarco with past medical history of paroxysmal atrial fibrillation moderate intermittent asthma on chronic pr ednisone at 5 mg daily and follows with Dr. Gallardo, home O2 at 2 L at bedtime only, history of compression fracture of L2, T12 and T7, gastroesophageal reflux disease, hypertension, history of colostomy subsequent reversal with exploratory laparotomy and extensive lysis of adhesions, splenectomy, repair of incarcerated parastomal hernia and repair of incisional incarcerated hernia January 2018 by Elijah Boyer. Patient came into [facility] emergency center on January 05. CAT scan of the abdomen and pelvis with contrast revealed larger wide neck ventral wall eventration or hernia. Larger left mid abdominal spigelian hernia containing fluid filled small bowel loops. Spigelian hernia has prominent small bowel loops and the ventral wall eventration or hernia has dilated small bowel loops. Some additional dilated small bowel loops appear within the intraperitoneal cavity. 2 sites of possible adhesions noted. Chest x-ray reveals no acute pulmonary process, NG tube high in the thorax, hiatal hernia. Patient was admitted to general surgery service, NG tube was placed which has subsequently been removed and patient started on clear liquids. Patient states that she is tolerating clear liquids. She is complaining of severe headache which is related to caffeine withdrawal. Fioricet ordered. Patient has been on IV Zosyn. Eliquis is been on hold. Patient has been afebrile, heart rate in the 80s and 90s, pulse ox 94% on room air. WBC is 7, hemoglobin 12.5. Platelet count 186. Sodium 136 otherwise electrolytes are normal, creatinine 0.88. ALT 40. Urinalysis on 01 05 was turbid, blood large, nitrate positive, leukoesterase large, RBCs greater than 182 and WBCs greater than 182, urine culture is finalized with pansensitive E. coli. Patient states that she has not had a bowel movement for 2 days. Patient is only reaching 750 ML's on incentive spirometry. 01/09: She states that she did have a bowel movement. She still has some abdominal pain. She states she is normally on MiraLAX at home which she has been advised to continue when she is discharged. Headache is completely gone after Fioricet. Patient states that she is tolerating diet without nausea or vomiting. She's been afebrile, blood pressure 107/64, heart rate 74, pulse ox 90% on room air. Her lites are normal, creatinine 0.78. Blood sugar 142. Medication reconciliation completed with anticipated discharge home today. 01/10: Due to patient's continued abdominal pain and not able to advance diet, patient was scheduled for lysis of adhesion today. Patient is gone for surgical procedure. REVIEW OF SYSTEMS Constitutional: No fever, no chills, no night sweats. No weight change. No weakness, fatigue or lethargy. No daytime sleepiness. EENT: No headache. No blurred vision or double vision, no loss of vision. No loss of Hearing, no ringing in the ears, no dizziness. No nasal drainage or congestion. No epistaxis. No sore throat. Lungs: No shortness of breath, cough, no sputum production. No wheezing. Cardiovascular: No chest pain, no lower extremity edema. No palpitations. No paroxysmal nocturnal dyspnea. No orthopnea. No lightheadedness or dizziness. No syncopal episodes. Abdominal: Mild generalized abdominal pain. No nausea, vomiting. No diarrhea. Denies constipation. No bloody or tarry stools reports loss of appetite. Genitourinary: No dysuria, increased frequency, urgency. No urinary retention. Musculoskeletal: No myalgias. No muscle weakness, no gait dysfunction, no frequent falls. No back pain. No neck pain. Integumentary: No wounds, no lesions. No rash or pruritus. No unusual bruising. No change in hair or nails. Neurologic: No aphasia. No facial droop. No change in mentation. No head injury. No headache. No paralysis. No paresthesia. Psychiatric: No depression. No anxiety. No mood swings. Endocrine: No abnormal blood sugars. No weight change. No excessive sweating or thirst. No cold intolerance. PHYSICAL EXAMINATION Gen: This is a obese 70-year-old female. Patient is sitting up in in bed and appears to be comfortable and in no acute distress. HEENT: Head is atraumatic, normocephalic. Pupils equal, round. Sclerae is anicteric. NECK: Supple. No JVD. No lymphadenopathy. No thyromegaly. LUNGS: Clear to auscultation. No wheezes or rhonchi. No intercostal retractions. HEART: Regular rate and rhythm. No murmur. ABDOMEN: Soft. Bowel sounds are present. No masses. Mild generalized tenderness. EXTREMITIES: No pedal edema. No calf tenderness. Dorsalis pedis +2 bilaterally. NEUROLOGICAL: Patient is awake, alert and oriented x3. Cranial nerves 2 through 12 are grossly intact. ASSESSMENT AND PLAN 1. Small bowel obstruction secondary to left mid abdominal spigelian hernia and ventral hernia and possible adhesions. Continue current plan per general surgery. NG tube is out, clear liquid diet, continue current pain management, Zosyn, Zofran as needed for nausea, Dilaudid for pain or Tylenol for pain. Hold eliquis until cleared by general surgery to resume. It is very probable discharge home today. 2. Moderate intermittent asthma. Continue prednisone 5 mg daily, Symbicort 2 puffs twice daily, albuterol nebulizer treatment 3 times daily as needed, Singulair 10 mg at bedtime. 3. Headache secondary to caffeine withdrawal. Fioricet ordered. 4. Paroxysmal atrial fibrillation. Resume eliquis once cleared by general surgery. Continue flecainid 50 mg twice daily,. 5. History of compression fracture, stable.. 6. Gastroesophageal reflux disease.Patient will be started on Protonix 7. DVT prophylaxis. SCDs. Resume eliquis once cleared by general surgery. DISCHARGE PLAN Most likely home. Impression and plan of care have been directed as dictated by the signing physician. Sue Castro nurse practitioner acting as scribe for signing physician. Objective - Vital Signs Vital signs: Vital Signs Temp 97.0 F L 01/10/21 08:56 Pulse 78 01/10/21 08:56 Resp 16 01/10/21 08:56 BP 123/58 01/10/21 08:56 Pulse Ox 97 01/10/21 08:56 Intake & Output 01/09/21 01/10/21 01/10/21 18:59 06:59 18:59 Intake Total 600 100 100 Balance 600 100 100 Intake: IV 100 Intake, IV Titration 100 Amount Piperacillin-Tazobactam 3 100 .375 gm In Sodium Chloride 0.9% 100 ml @ 25 mls/hr IVPB Q8H [facility] Rx#: [id number] Oral 600 Other: Voiding Method Toilet Toilet Toilet # Bowel Movements 1 - Labs CBC & Chem 7: 01/10/21 05:33 01/10/21 05:33 Labs: Abnormal Lab Results - Last 24 Hours (Table) 01/09/21 01/10/21 Range/Units 13:42 05:33 RBC 3.61 L (3.80-5.40) m/uL MCV 104.3 H (80.0-100.0) fL Glucose 142 H (74-99) mg/dL
[2021-01-10] MEDS: HYDROmorphone 1 MG/ML 1 ML SYRINGE IVP PRN ×3 (14:48→20:25)
[2021-01-10] MEDS ORDERED: MORPHINE SULFATE 4 MG/ML SYRINGE IVP PRN (17:25)
[2021-01-10] MEDS: MONTELUKAST 10 MG TAB PO SCH (20:24)
[2021-01-11] MEDS ORDERED: HYDROmorphone 0.5 MG/0.5 ML SYRINGE IVP PRN (01:32)
[2021-01-11] MEDS: HYDROmorphone 1 MG/ML 1 ML SYRINGE IVP PRN ×3 (02:41→10:53)
[2021-01-11] MEDS: PIPERACILLIN-TAZOBACTAM 3.375 GM in SODIUM CHLORIDE 0.9% 100 ML IVPB SCH ×3 (03:49→21:08)
[2021-01-11] MEDS: LACTATED RINGERS 1,000 ML IV SCH ×7 (03:49→20:50)
[2021-01-11] MEDS: ONDANSETRON 4 MG/2 ML VIAL IVP PRN (05:00)
[2021-01-11] MEDS: DOCUSATE 100 MG CAP PO SCH ×2 (06:57→20:47)
[2021-01-11] MEDS: ENOXAPARIN 40 MG/0.4 ML SYRINGE SQ SCH (06:57)
[2021-01-11] MEDS: FLECAINIDE 50 MG TAB PO SCH ×2 (06:57→20:47)
[2021-01-11] MEDS: PANTOPRAZOLE 40 MG TABLET PO SCH (06:57)
[2021-01-11] MEDS: DILTIAZEM CD 180 MG CAP.ER.24H PO SCH (06:57)
[2021-01-11] MEDS: predniSONE 5 MG TAB PO SCH (06:57)
[2021-01-11] MEDS: ALBUTEROL NEBULIZED 2.5 MG/3 ML INHALATION PRN ×3 (08:03→20:56)
[2021-01-11] MEDS: SYMBICORT 160-4.5 MCG INHALER INHALATION SCH ×2 (08:04→20:56)
[2021-01-11] MEDS ORDERED: METOCLOPRAMIDE 5 MG/ML 2 ML VIAL IVP PRN (08:49)
[2021-01-11] MEDS: KETOROLAC 15 MG/ML 1 ML VIAL IVP SCH ×3 (09:04→20:47)
[2021-01-11 14:21] LABS: Basophils # (A) 0.1 k/uL (0-0.2); Basophils % (A) 1 %; Eosinophils # (A) 0.1 k/uL (0-0.7); Eosinophils % (A) 1 %; HCT 38.9 % (34.0-46.0); HGB 12.3 gm/dL (11.4-16.0); Lymphocytes # (A) 1.6 k/uL (1.0-4.8); Lymphocytes % (A) 12 %; MCHC 31.8 g/dL (31.0-37.0); MCV 103.9 fL (80.0-100.0); Macrocytosis Slight; Mean Platelet Volume 8.7; Monocytes # (A) 0.7 k/uL (0-1.0); Monocytes % (A) 5 %; Neutrophils # (A) 11.1 k/uL (1.3-7.7); Neutrophils % (A) 81 %; Platelet Count 197 k/uL (150-450); RBC 3.74 m/uL (3.80-5.40); RDW 13.2 % (11.5-15.5); WBC 13.8 k/uL (3.8-10.6)
[2021-01-11 14:38] VITALS: BMI 31.0
[2021-01-11 14:40] LABS: African American GFR (CKD) 28 (>60 ml/min/1.73 sqM); Anion Gap 9 mmol/L; Blood Urea Nitrogen 22 mg/dL (7-17); Calcium 8.1 mg/dL (8.4-10.2); Carbon Dioxide 21 mmol/L (22-30); Chloride 106 mmol/L (98-107); Glucose 126 mg/dL (74-99); Non-African American GFR(CKD) 24 (>60 ml/min/1.73 sqM); Potassium 4.2 mmol/L (3.5-5.1); Sodium 136 mmol/L (137-145)
--- NOTE | 2021-01-11 15:16 | P.PN ---
Subjective Progress Note Date: 01/11/21 CHIEF COMPLAINT: Abdominal pain HISTORY OF PRESENT ILLNESS: Patient is status post exploratory laparotomy, lysis of extensive adhesions, repair of incarcerated incisional hernia with mesh and partial omentectomy. Postop day #1. Patient is complaining of abdominal pain. She reports her pain is not controlled. She was on Dilaudid 2 mg every 3 hours as needed. Patient is very drowsy after the 2 mg of Dilaudid. Since then nursing staff is only been giving 1 mg. Patient also was nauseated. No vomi ting. Denies any flatus or BM. Afebrile. WBC 6.6 hemoglobin 11.9 platelets 191 sodium 139 potassium 3.7 creatinine 0.3 PHYSICAL EXAM: VITAL SIGNS: Reviewed. GENERAL: Well-developed in no acute distress. HEENT: No sclera icterus. Extraocular movements grossly intact. Moist buccal mucosa. Head is atraumatic, normocephalic. ABDOMEN: Soft. Nondistended. Tenderness at incision site. Incision site clean dry and intact NEUROLOGIC: Alert and oriented. Cranial nerves II through XII grossly intact. ASSESSMENT: 1. Incarcerated incisional hernia and extensive abdominal adhesions Status post exploratory laparotomy, lysis of extensive adhesions, repair of incarcerated incisional hernia with mesh and partial omentectomy 2. Partial small bowel obstruction PLAN: -Advance diet to clears -We'll change IV Dilaudid to 1 mg every 2 hours as needed for pain -Add Toradol scheduled for pain control -Continue antiemetics, Zofran and Reglan -GI prophylaxis Protonix and DVT prophylaxis subcu lovenox Physician Jewel Oliving Machine Operator note has been reviewed by physician. Signing provider agrees with the documented findings, assessment, and plan of care. Objective - Vital Signs Vital signs: Vital Signs Temp 97.5 F L 01/11/21 04:54 Pulse 78 01/11/21 08:13 Resp 16 01/11/21 04:54 BP 104/66 01/11/21 07:01 Pulse Ox 91 L 01/11/21 04:54 Intake & Output 01/10/21 01/11/21 01/11/21 18:59 06:59 18:59 Intake Total 875 2200 Output Total 240 50 Balance 635 2150 Intake: IV 750 Intake, IV Titration 125 2200 Amount Lactated Ringers 1,000 ml 125 @ 125 mls/hr IV .Q8H [facility] Rx#:[id number] Lactated Ringers 1,000 ml 1000 @ 125 mls/hr IV .Q8H [facility] Rx#:[id number] Lactated Ringers 1,000 ml 1000 @ 999 mls/hr IV .Q1H1M [facility] Rx#:[id number] Piperacillin-Tazobactam 3 200 .375 gm In Sodium Chloride 0.9% 100 ml @ 25 mls/hr IVPB Q8H [facility] Rx#: [id number] Output: Drainage 140 50 Right Abdomen 140 50 Estimated Blood Loss 100 Other: Voiding Method Toilet Toilet # Voids 1 - Labs CBC & Chem 7: 01/11/21 13:29 01/11/21 13:29
[2021-01-11] MEDS: MONTELUKAST 10 MG TAB PO SCH (20:47)
[2021-01-12] MEDS: LACTATED RINGERS 1,000 ML IV SCH ×3 (02:03→09:03)
[2021-01-12] MEDS: KETOROLAC 15 MG/ML 1 ML VIAL IVP SCH ×4 (03:43→21:31)
[2021-01-12] MEDS: ALBUTEROL NEBULIZED 2.5 MG/3 ML INHALATION PRN ×4 (04:09→20:57)
[2021-01-12] MEDS: PIPERACILLIN-TAZOBACTAM 3.375 GM in SODIUM CHLORIDE 0.9% 100 ML IVPB SCH ×3 (04:32→20:03)
[2021-01-12] MEDS: SYMBICORT 160-4.5 MCG INHALER INHALATION SCH ×2 (07:43→20:57)
--- NOTE | 2021-01-12 07:58 | P.PN ---
Subjective Progress Note Date: 01/11/21 HISTORY OF PRESENT ILLNESS This is 70-year-old female patient of Dr. John zarco with past medical history of paroxysmal atrial fibrillation moderate intermittent asthma on chronic pr ednisone at 5 mg daily and follows with Dr. Gallardo, home O2 at 2 L at bedtime only, history of compression fracture of L2, T12 and T7, gastroesophageal reflux disease, hypertension, history of colostomy subsequent reversal with exploratory laparotomy and extensive lysis of adhesions, splenectomy, repair of incarcerated parastomal hernia and repair of incisional incarcerated hernia January 2018 by Elijah Boyer. Patient came into [facility] emergency center on January 05. CAT scan of the abdomen and pelvis with contrast revealed larger wide neck ventral wall eventration or hernia. Larger left mid abdominal spigelian hernia containing fluid filled small bowel loops. Spigelian hernia has prominent small bowel loops and the ventral wall eventration or hernia has dilated small bowel loops. Some additional dilated small bowel loops appear within the intraperitoneal cavity. 2 sites of possible adhesions noted. Chest x-ray reveals no acute pulmonary process, NG tube high in the thorax, hiatal hernia. Patient was admitted to general surgery service, NG tube was placed which has subsequently been removed and patient started on clear liquids. Patient states that she is tolerating clear liquids. She is complaining of severe headache which is related to caffeine withdrawal. Fioricet ordered. Patient has been on IV Zosyn. Eliquis is been on hold. Patient has been afebrile, heart rate in the 80s and 90s, pulse ox 94% on room air. WBC is 7, hemoglobin 12.5. Platelet count 186. Sodium 136 otherwise electrolytes are normal, creatinine 0.88. ALT 40. Urinalysis on 01 05 was turbid, blood large, nitrate positive, leukoesterase large, RBCs greater than 182 and WBCs greater than 182, urine culture is finalized with pansensitive E. coli. Patient states that she has not had a bowel movement for 2 days. Patient is only reaching 750 ML's on incentive spirometry. 01/09: She states that she did have a bowel movement. She still has some abdominal pain. She states she is normally on MiraLAX at home which she has been advised to continue when she is discharged. Headache is completely gone after Fioricet. Patient states that she is tolerating diet without nausea or vomiting. She's been afebrile, blood pressure 107/64, heart rate 74, pulse ox 90% on room air. Her lites are normal, creatinine 0.78. Blood sugar 142. Medication reconciliation completed with anticipated discharge home today. 01/10: Due to patient's continued abdominal pain and not able to advance diet, patient was scheduled for lysis of adhesion today. Patient is gone for surgical procedure. 01/11: Yesterday, patient underwent exploratory laparotomy, lysis of extensive adhesions, repair of incarcerated incisional hernia with mesh, partial omentectomy. Patient complains of severe abdominal pain "since surgery ended." She is not controlled with Dilaudid and general surgery added Toradol. Patient also complains of nausea without vomiting. She has Zofran available Reglan added. His been afebrile, heart rate 99, blood pressure 92/60, pulse ox 91% on 4 L nasal cannula. Patient is utilizing incentive spirometry at decreased to 500 ML's. WBC 13.8. BUN 22 and creatinine 2.03. Patient is currently on clear liquids. REVIEW OF SYSTEMS Constitutional: No fever, no chills, no night sweats. No weight change. No weakness, fatigue or lethargy. No daytime sleepiness. EENT: No headache. No blurred vision or double vision, no loss of vision. No l oss of Hearing, no ringing in the ears, no dizziness. No nasal drainage or congestion. No epistaxis. No sore throat. Lungs: No shortness of breath, cough, no sputum production. No wheezing. Cardiovascular: No chest pain, no lower extremity edema. No palpitations. No paroxysmal nocturnal dyspnea. No orthopnea. No lightheadedness or dizziness. No syncopal episodes. Abdominal: Reports abdominal pain. Reports nausea, no vomiting. No diarrhea. Reports constipation. No bloody or tarry stools reports loss of appetite. Genitourinary: No dysuria, increased frequency, urgency. No urinary retention. Musculoskeletal: No myalgias. No muscle weakness, no gait dysfunction, no frequent falls. No back pain. No neck pain. Integumentary: No wounds, no lesions. No rash or pruritus. No unusual bruising. No change in hair or nails. Neurologic: No aphasia. No facial droop. No change in mentation. No head injury. No headache. No paralysis. No paresthesia. Psychiatric: No depression. No anxiety. No mood swings. Endocrine: No abnormal blood sugars. No weight change. No excessive sweating or thirst. No cold intolerance. PHYSICAL EXAMINATION Gen: This is a obese 70-year-old female. Patient is resting in bed and appears to be comfortable and in no acute distress. HEENT: Head is atraumatic, normocephalic. Pupils equal, round. Sclerae is anicteric. NECK: Supple. No JVD. No lymphadenopathy. No thyromegaly. LUNGS: Clear to auscultation. No wheezes or rhonchi. No intercostal retractions. HEART: Regular rate and rhythm. No murmur. ABDOMEN: Soft. Bowel sounds are present. No masses. Generalized tenderness. EXTREMITIES: No pedal edema. No calf tenderness. Dorsalis pedis +2 bilaterally. NEUROLOGICAL: Patient is awake, alert and oriented x3. Cranial nerves 2 through 12 are grossly intact. ASSESSMENT AND PLAN 1. Small bowel obstruction secondary to left mid abdominal spigelian hernia and ventral hernia and possible adhesions. Status post exploratory laparotomy, lysis of extensive adhesions, repair of incarcerated incisional hernia with mesh, partial omentectomy. Continue Dilaudid, Toradol for pain control, continue Zosyn 3.375 g IV piggyback every 8 hours, Zofran and Reglan as needed for nausea. 2. Moderate intermittent asthma. Continue prednisone 5 mg daily, Symbicort 2 puffs twice daily, albuterol nebulizer treatment 3 times daily as needed, Singulair 10 mg at bedtime. 3. Headache secondary to caffeine withdrawal. Fioricet ordered. 4. Paroxysmal atrial fibrillation. Resume eliquis once cleared by general surgery. Continue flecainid 50 mg twice daily,. 5. History of compression fracture, stable.. 6. Gastroesophageal reflux disease.Patient will be started on Protonix 7. Acute kidney injury. IV fluids changed to 0.9 normal saline. 8. DVT prophylaxis. SCDs. Resume eliquis once cleared by general surgery. DISCHARGE PLAN Most likely home. Impression and plan of care have been directed as dictated by the signing physician. Sue Castro nurse practitioner acting as scribe for signing physician. Objective - Vital Signs Vital signs: Vital Signs Temp 97.5 F L 01/11/21 04:54 Pulse 78 01/11/21 08:13 Resp 16 01/11/21 04:54 BP 104/66 01/11/21 07:01 Pulse Ox 91 L 01/11/21 04:54 Intake & Output 01/10/21 01/11/21 01/11/21 18:59 06:59 18:59 Intake Total 875 2200 Output Total 240 50 Balance 635 2150 Intake: IV 750 Intake, IV Titration 125 2200 Amount Lactated Ringers 1,000 ml 125 @ 125 mls/hr IV .Q8H [facility] Rx#:[id number] Lactated Ringers 1,000 ml 1000 @ 125 mls/hr IV .Q8H [facility] Rx#:[id number] Lactated Ringers 1,000 ml 1000 @ 999 mls/hr IV .Q1H1M [facility] Rx#:[id number] Piperacillin-Tazobactam 3 200 .375 gm In Sodium Chloride 0.9% 100 ml @ 25 mls/hr IVPB Q8H [facility] Rx#: [id number] Output: Drainage 140 50 Right Abdomen 140 50 Estimated Blood Loss 100 Other: Voiding Method Toilet # Voids 1 - Labs CBC & Chem 7: 01/11/21 13:29 01/11/21 13:29
[2021-01-12] MEDS ORDERED: SODIUM CHLORIDE 0.9% 1,000 ML IV SCH (08:00)
[2021-01-12] MEDS: DOCUSATE 100 MG CAP PO SCH ×2 (08:41→20:03)
[2021-01-12] MEDS: PANTOPRAZOLE 40 MG TABLET PO SCH (08:41)
[2021-01-12] MEDS: ENOXAPARIN 40 MG/0.4 ML SYRINGE SQ SCH (08:42)
[2021-01-12] MEDS: DILTIAZEM CD 180 MG CAP.ER.24H PO SCH (08:42)
[2021-01-12] MEDS: predniSONE 5 MG TAB PO SCH (08:42)
[2021-01-12] MEDS: FLECAINIDE 50 MG TAB PO SCH ×2 (08:42→20:05)
[2021-01-12 10:02] LABS: HCT 33.8 % (34.0-46.0); HGB 10.7 gm/dL (11.4-16.0); MCH 33.4 pg (25.0-35.0); MCHC 31.7 g/dL (31.0-37.0); MCV 105.6 fL (80.0-100.0); Macrocytosis Slight; Mean Platelet Volume 8.4; Platelet Count 202 k/uL (150-450); RBC 3.21 m/uL (3.80-5.40); RDW 12.9 % (11.5-15.5); WBC 13.2 k/uL (3.8-10.6)
[2021-01-12 10:18] LABS: ALT 35 U/L (4-34); AST 42 U/L (14-36); African American GFR (CKD) 47 (>60 ml/min/1.73 sqM); Albumin 2.5 g/dL (3.5-5.0); Albumin/Globulin Ratio 1.1; Alkaline Phosphatase 94 U/L (38-126); Anion Gap 7 mmol/L; Blood Urea Nitrogen 25 mg/dL (7-17); Carbon Dioxide 24 mmol/L (22-30); Chloride 105 mmol/L (98-107); Globulin 2.3 g/dL; Glucose 148 mg/dL (74-99); Non-African American GFR(CKD) 41 (>60 ml/min/1.73 sqM); Potassium 3.5 mmol/L (3.5-5.1); Sodium 136 mmol/L (137-145); Total Bilirubin 0.6 mg/dL (0.2-1.3); Total Protein 4.8 g/dL (6.3-8.2)
--- NOTE | 2021-01-12 11:10 | P.PN ---
Progress Note - Text Progress Note Date: 01/12/21 Patient feels better today. Her pain has improved. On exam vital signs are stable. Abdomen soft. Incisions clean dry intact. Status post repair of incarcerated incisional hernia. Patient will have her diet advanced fully liquid diet.
[2021-01-12] MEDS ORDERED: BUMETANIDE 0.25 MG/ML 4 ML VIAL IVP STA (11:21)
--- NOTE | 2021-01-12 13:13 | XR ---
EXAMINATION TYPE: XR chest 1V portable DATE OF EXAM: 01/12/2021 COMPARISON: 01/05/2021 HISTORY: Cough TECHNIQUE: Single frontal view of the chest is obtained. FINDINGS: Bilateral infiltrate and pleural effusion with diffuse interstitial pattern. No pneumothor ax. Diffuse osteopenia. Surgical clips in the right upper quadrant. Hypertrophic change of the spine. IMPRESSION: 1. Correlate for CHF otherwise consider pneumonia.
--- NOTE | 2021-01-12 14:54 | P.PN ---
Subjective Progress Note Date: 01/12/21 HISTORY OF PRESENT ILLNESS This is 70-year-old female patient of Dr. John zarco with past medical history of paroxysmal atrial fibrillation moderate intermittent asthma on chronic pr ednisone at 5 mg daily and follows with Dr. Gallardo, home O2 at 2 L at bedtime only, history of compression fracture of L2, T12 and T7, gastroesophageal reflux disease, hypertension, history of colostomy subsequent reversal with exploratory laparotomy and extensive lysis of adhesions, splenectomy, repair of incarcerated parastomal hernia and repair of incisional incarcerated hernia January 2018 by Elijah Boyer. Patient came into [facility] emergency center on January 05. CAT scan of the abdomen and pelvis with contrast revealed larger wide neck ventral wall eventration or hernia. Larger left mid abdominal spigelian hernia containing fluid filled small bowel loops. Spigelian hernia has prominent small bowel loops and the ventral wall eventration or hernia has dilated small bowel loops. Some additional dilated small bowel loops appear within the intraperitoneal cavity. 2 sites of possible adhesions noted. Chest x-ray reveals no acute pulmonary process, NG tube high in the thorax, hiatal hernia. Patient was admitted to general surgery service, NG tube was placed which has subsequently been removed and patient started on clear liquids. Patient states that she is tolerating clear liquids. She is complaining of severe headache which is related to caffeine withdrawal. Fioricet ordered. Patient has been on IV Zosyn. Eliquis is been on hold. Patient has been afebrile, heart rate in the 80s and 90s, pulse ox 94% on room air. WBC is 7, hemoglobin 12.5. Platelet count 186. Sodium 136 otherwise electrolytes are normal, creatinine 0.88. ALT 40. Urinalysis on 01 05 was turbid, blood large, nitrate positive, leukoesterase large, RBCs greater than 182 and WBCs greater than 182, urine culture is finalized with pansensitive E. coli. Patient states that she has not had a bowel movement for 2 days. Patient is only reaching 750 ML's on incentive spirometry. 01/09: She states that she did have a bowel movement. She still has some abdominal pain. She states she is normally on MiraLAX at home which she has been advised to continue when she is discharged. Headache is completely gone after Fioricet. Patient states that she is tolerating diet without nausea or vomiting. She's been afebrile, blood pressure 107/64, heart rate 74, pulse ox 90% on room air. Her lites are normal, creatinine 0.78. Blood sugar 142. Medication reconciliation completed with anticipated discharge home today. 01/10: Due to patient's continued abdominal pain and not able to advance diet, patient was scheduled for lysis of adhesion today. Patient is gone for surgical procedure. 01/11: Yesterday, patient underwent exploratory laparotomy, lysis of extensive adhesions, repair of incarcerated incisional hernia with mesh, partial omentectomy. Patient complains of severe abdominal pain "since surgery ended." She is not controlled with Dilaudid and general surgery added Toradol. Patient also complains of nausea without vomiting. She has Zofran available Reglan added. His been afebrile, heart rate 99, blood pressure 92/60, pulse ox 91% on 4 L nasal cannula. Patient is utilizing incentive spirometry at decreased to 500 ML's. WBC 13.8. BUN 22 and creatinine 2.03. Patient is currently on clear liquids. 01/12: Patient's abdominal pain is improved today. She has been advanced to full liquid diet. She has not had a bowel movement. He is now on oxygen at 4 L nasal cannula with pulse ox of 95%. She does complain of a cough, one dose of Bumex 1 mg IV ordered and chest x-ray. Patient states that she was up in a chair yesterday and walked to the bathroom. Otherwise vital signs are stable. He has been afebrile. Repeat blood work reveals WBC 13.2, hemoglobin 10.7, platelet count 202. Sodium 136 otherwise looked her lites are normal. BUN 25 creatinine 1.33. Blood sugar 148. AST 42, ALT 35, alkaline phosphatase 94. Chest x-ray reveals correlate for heart failure otherwise consider pneumonia. Patient is currently on Zosyn. REVIEW OF SYSTEMS Constitutional: No fever, no chills, no night sweats. No weight change. No weakness, fatigue or lethargy. No daytime sleepiness. EENT: No headache. No blurred vision or double vision, no loss of vision. No loss of Hearing, no ringing in the ears, no dizziness. No nasal drainage or congestion. No epistaxis. No sore throat. Lungs: No shortness of breath, reports cough, no sputum production. No wheezing. Cardiovascular: No chest pain, no lower extremity edema. No palpitations. No paroxysmal nocturnal dyspnea. No orthopnea. No lightheadedness or dizziness. No syncopal episodes. Abdominal: Reports abdominal pain improved. Denies nausea, no vomiting. No diarrhea. Reports constipation. No bloody or tarry stools reports loss of appetite. Genitourinary: No dysuria, increased frequency, urgency. No urinary retention. Musculoskeletal: No myalgias. No muscle weakness, no gait dysfunction, no frequent falls. No back pain. No neck pain. Integumentary: No wounds, no lesions. No rash or pruritus. No unusual bruising. No change in hair or nails. Neurologic: No aphasia. No facial droop. No change in mentation. No head injury. No headache. No paralysis. No paresthesia. Psychiatric: No depression. No anxiety. No mood swings. Endocrine: No abnormal blood sugars. No weight change. No excessive sweating or thirst. No cold intolerance. PHYSICAL EXAMINATION Gen: This is a obese 70-year-old female. Patient is resting in bed and appears to be comfortable and in no acute distress. HEENT: Head is atraumatic, normocephalic. Pupils equal, round. Sclerae is anicteric. NECK: Supple. No JVD. No lymphadenopathy. No thyromegaly. LUNGS: Crackles in the bilateral bases. No intercostal retractions. HEART: Regular rate and rhythm. No murmur. ABDOMEN: Soft. Bowel sounds are present. No masses. Generalized tenderness. EXTREMITIES: No pedal edema. No calf tenderness. Dorsalis pedis +2 bilaterally. NEUROLOGICAL: Patient is awake, alert and oriented x3. Cranial nerves 2 through 12 are grossly intact. ASSESSMENT AND PLAN 1. Small bowel obstruction secondary to left mid abdominal spigelian hernia and ventral hernia and possible adhesions. Status post exploratory laparotomy, lysi s of extensive adhesions, repair of incarcerated incisional hernia with mesh, partial omentectomy. Continue Dilaudid, Toradol for pain control, continue Zosyn 3.375 g IV piggyback every 8 hours, Zofran and Reglan as needed for nausea. 2. Moderate intermittent asthma. Continue prednisone 5 mg daily, Symbicort 2 puffs twice daily, albuterol nebulizer treatment 3 times daily as needed, Singulair 10 mg at bedtime. 3. Headache secondary to caffeine withdrawal. Fioricet ordered. 4. Paroxysmal atrial fibrillation. Resume eliquis once cleared by general surgery. Continue flecainid 50 mg twice daily,. 5. Fluid overload secondary to IV fluids. IV fluids discontinued, one dose of IV Bumex ordered. 6. History of compression fracture, stable.. 7. Gastroesophageal reflux disease. Continue Protonix 8. Acute kidney injury. IV fluids discontinued. 9. DVT prophylaxis. SCDs. Resume eliquis once cleared by general surgery. DISCHARGE PLAN Most likely home. Impression and plan of care have been directed as dictated by the signing physician. Sue Castro nurse practitioner acting as scribe for signing physician. Objective - Vital Signs Vital signs: Vital Signs Temp 97.7 F 01/12/21 03:48 Pulse 88 01/12/21 07:54 Resp 20 01/12/21 03:48 BP 125/69 01/12/21 03:48 Pulse Ox 95 01/12/21 03:48 Intake & Output 01/11/21 01/12/21 01/12/21 18:59 06:59 18:59 Intake Total 2500 620 Output Total 55 Balance 2500 565 Weight 82.1 kg Intake: Intake, IV Titration 2500 Amount Lactated Ringers 1,000 ml 1500 @ 125 mls/hr IV .Q8H [facility] Rx#:[id number] Lactated Ringers 1,000 ml 1000 @ 999 mls/hr IV .Q1H1M [facility] Rx#:[id number] Oral 620 Output: Drainage 55 Right Abdomen 55 Other: Voiding Method Toilet Toilet Diaper # Voids 1 - Labs CBC & Chem 7: 01/12/21 09:45 01/12/21 09:45 Labs: Abnormal Lab Results - Last 24 Hours (Table) 01/11/21 01/11/21 Range/Units 13:29 13:29 WBC 13.8 H (3.8-10.6) k/uL RBC 3.74 L (3.80-5.40) m/uL MCV 103.9 H (80.0-100.0) fL Neutrophils # 11.1 H (1.3-7.7) k/uL Sodium 136 L (137-145) mmol/L Carbon Dioxide 21 L (22-30) mmol/L BUN 22 H (7-17) mg/dL Creatinine 2.03 H (0.52-1.04) mg/dL Glucose 126 H (74-99) mg/dL Calcium 8.1 L (8.4-10.2) mg/dL
[2021-01-12] MEDS: HYDROmorphone 1 MG/ML 1 ML SYRINGE IVP PRN ×2 (17:40→20:04)
[2021-01-12] MEDS: MONTELUKAST 10 MG TAB PO SCH ×2 (20:03→20:04)
[2021-01-13] MEDS: LACTATED RINGERS 1,000 ML IV SCH ×2 (01:17→21:20)
[2021-01-13] MEDS: KETOROLAC 15 MG/ML 1 ML VIAL IVP SCH ×4 (03:48→20:12)
[2021-01-13] MEDS: BUTALB/APAP/CAFF 50-325-40MG TAB PO PRN ×2 (05:11→09:12)
[2021-01-13 07:40] LABS: HCT 31.4 % (34.0-46.0); HGB 10.1 gm/dL (11.4-16.0); MCH 33.3 pg (25.0-35.0); MCHC 32.3 g/dL (31.0-37.0); MCV 103.1 fL (80.0-100.0); Macrocytosis Slight; Mean Platelet Volume 8.3; Platelet Count 227 k/uL (150-450); RBC 3.04 m/uL (3.80-5.40); RDW 13.4 % (11.5-15.5); WBC 10.2 k/uL (3.8-10.6)
[2021-01-13 07:55] LABS: ALT 30 U/L (4-34); AST 34 U/L (14-36); African American GFR (CKD) 53 (>60 ml/min/1.73 sqM); Albumin 2.4 g/dL (3.5-5.0); Alkaline Phosphatase 95 U/L (38-126); Anion Gap 5 mmol/L; Blood Urea Nitrogen 24 mg/dL (7-17); Calcium 8.4 mg/dL (8.4-10.2); Carbon Dioxide 25 mmol/L (22-30); Chloride 107 mmol/L (98-107); Globulin 2.4 g/dL; Glucose 96 mg/dL (74-99); Non-African American GFR(CKD) 46 (>60 ml/min/1.73 sqM); Potassium 3.6 mmol/L (3.5-5.1); Sodium 137 mmol/L (137-145); Total Bilirubin 0.4 mg/dL (0.2-1.3); Total Protein 4.8 g/dL (6.3-8.2)
[2021-01-13] MEDS: SYMBICORT 160-4.5 MCG INHALER INHALATION SCH ×2 (09:05→20:26)
[2021-01-13] MEDS: ALBUTEROL NEBULIZED 2.5 MG/3 ML INHALATION PRN ×4 (09:05→20:24)
[2021-01-13] MEDS: ENOXAPARIN 40 MG/0.4 ML SYRINGE SQ SCH (09:11)
[2021-01-13] MEDS ORDERED: BUMETANIDE 0.25 MG/ML 4 ML VIAL IVP STA ×2 (09:11→18:32)
[2021-01-13] MEDS: predniSONE 5 MG TAB PO SCH (09:12)
[2021-01-13] MEDS: PANTOPRAZOLE 40 MG TABLET PO SCH (09:12)
[2021-01-13] MEDS: DOCUSATE 100 MG CAP PO SCH ×2 (09:12→20:12)
[2021-01-13] MEDS: DILTIAZEM CD 180 MG CAP.ER.24H PO SCH (09:12)
[2021-01-13] MEDS: FLECAINIDE 50 MG TAB PO SCH ×2 (10:34→20:12)
--- NOTE | 2021-01-13 11:13 | P.PN ---
Subjective Progress Note Date: 01/13/21 Principal diagnosis: Incisional hernia Patient doing well today. Says her pain is improving. She is passing flatus. No bowel movement. Tolerating full liquids. Objective - Vital Signs Vital signs: Vital Signs Temp 97.6 F 01/13/21 05:02 Pulse 84 01/13/21 10:25 Resp 24 01/13/21 10:25 BP 110/68 01/13/21 10:25 Pulse Ox 92 L 01/13/21 09:05 Intake & Output 01/12/21 01/13/21 01/13/21 18:59 06:59 18:59 Intake Total 1560 300 Output Total 130 110 Balance 1430 190 Weight 82.1 kg Intake: Intake, IV Titration 1560 100 Amount Piperacillin-Tazobactam 3 100 .375 gm In Sodium Chloride 0.9% 100 ml @ 25 mls/hr IVPB Q8H [facility] Rx#: [id number] Sodium Chloride 0.9% 1, 1560 000 ml @ 130 mls/hr IV . Q7H42M [facility] Rx#:[id number] Oral 200 Output: Drainage 130 110 Right Abdomen 130 110 Other: Voiding Method Toilet Diaper # Voids 2 2 - Exam Abdomen: Soft, nondistended, mild tenderness, dressing clean and dry - Labs CBC & Chem 7: 01/13/21 07:18 01/13/21 07:18 Labs: Abnormal Lab Results - Last 24 Hours (Table) 01/13/21 01/13/21 Range/Units 07:18 07:18 RBC 3.04 L (3.80-5.40) m/uL Hgb 10.1 L (11.4-16.0) gm/dL Hct 31.4 L (34.0-46.0) % MCV 103.1 H (80.0-100.0) fL BUN 24 H (7-17) mg/dL Creatinine 1.19 H (0.52-1.04) mg/dL Total Protein 4.8 L (6.3-8.2) g/dL Albumin 2.4 L (3.5-5.0) g/dL Assessment and Plan (1) Ventral hernia Narrative/Plan: Patient doing better today. Will increase diet for dinner. Ambulate. Current Visit: Yes Status: Acute Code(s): K43.9 - VENTRAL HERNIA WITHOUT OBSTRUCTION OR GANGRENE SNOMED Code(s): 999062040
--- NOTE | 2021-01-13 12:03 | US ---
EXAMINATION TYPE: US venous doppler duplex LE BI DATE OF EXAM: 01/13/2021 11:35 AM COMPARISON: NONE CLINICAL HISTORY: Thrombosis . Tristan LE swelling today post abdominal surgery 4 days ago; on blood thin ner x years for AFIB. SIDE PERFORMED: Bilateral TECHNIQUE: The lower extremity deep venous system is examined utilizing real time linear array sonog geraldo with graded compression, doppler sonography and color-flow sonography. VESSELS IMAGED: Common Femoral Vein Deep Femoral Vein Greater Saphenous Vein * Femoral Vein Popliteal Vein Small Saphenous Vein * Proximal Calf Veins (* superficial vessels) There is normal flow, compressibility, vascular waveforms. Right Leg: Negative for DVT Left Leg: Negative for DVT IMPRESSION: No evidence of deep venous thrombosis within the lower extremities from the level of the knees centrally
--- NOTE | 2021-01-13 12:24 | P.PN ---
Subjective Progress Note Date: 01/13/21 HISTORY OF PRESENT ILLNESS This is 70-year-old female patient of Dr. John zarco with past medical history of paroxysmal atrial fibrillation moderate intermittent asthma on chronic pred nisone at 5 mg daily and follows with Dr. Gallardo, home O2 at 2 L at bedtime only, history of compression fracture of L2, T12 and T7, gastroesophageal reflux disease, hypertension, history of colostomy subsequent reversal with exploratory laparotomy and extensive lysis of adhesions, splenectomy, repair of incarcerated parastomal hernia and repair of incisional incarcerated hernia January [address] Boyer. Patient came into [facility] emergency center on January 05. CAT scan of the abdomen and pelvis with contrast revealed larger wide neck ventral wall eventration or hernia. Larger left mid abdominal spigelian hernia containing fluid filled small bowel loops. Spigelian hernia has prominent small bowel loops and the ventral wall eventration or hernia has dilated small bowel loops. Some additional dilated small bowel loops appear within the intraperitoneal cavity. 2 sites of possible adhesions noted. Chest x-ray reveals no acute pulmonary process, NG tube high in the thorax, hiatal hernia. Patient was admitted to general surgery service, NG tube was placed which has subsequently been removed and patient started on clear liquids. Patient states that she is tolerating clear liquids. She is complaining of severe headache which is related to caffeine withdrawal. Fioricet ordered. Patient has been on IV Zosyn. Eliquis is been on hold. Patient has been afebrile, heart rate in the 80s and 90s, pulse ox 94% on room air. WBC is 7, hemoglobin 12.5. Platelet count 186. Sodium 136 otherwise electrolytes are normal, creatinine 0.88. ALT 40. Urinalysis on 01 05 was turbid, blood large, nitrate positive, leukoesterase large, RBCs greater than 182 and WBCs greater than 182, urine culture is finalized with pansensitive E. coli. Patient states that she has not had a bowel movement for 2 days. Patient is only reaching 750 ML's on incentive spirometry. 01/09: She states that she did have a bowel movement. She still has some abdominal pain. She states she is normally on MiraLAX at home which she has been advised to continue when she is discharged. Headache is completely gone after Fioricet. Patient states that she is tolerating diet without nausea or vomiting. She's been afebrile, blood pressure 107/64, heart rate 74, pulse ox 90% on room air. Her lites are normal, creatinine 0.78. Blood sugar 142. Medication reconciliation completed with anticipated discharge home today. 01/10: Due to patient's continued abdominal pain and not able to advance diet, patient was scheduled for lysis of adhesion today. Patient is gone for surgical procedure. 01/11: Yesterday, patient underwent exploratory laparotomy, lysis of extensive adhesions, repair of incarcerated incisional hernia with mesh, partial omentectomy. Patient complains of severe abdominal pain "since surgery ended." She is not controlled with Dilaudid and general surgery added Toradol. Patient also complains of nausea without vomiting. She has Zofran available Reglan added. His been afebrile, heart rate 99, blood pressure 92/60, pulse ox 91% on 4 L nasal cannula. Patient is utilizing incentive spirometry at decreased to 500 ML's. WBC 13.8. BUN 22 and creatinine 2.03. Patient is currently on clear liquids. 01/12: Patient's abdominal pain is improved today. She has been advanced to full liquid diet. She has not had a bowel movement. He is now on oxygen at 4 L n hai cannula with pulse ox of 95%. She does complain of a cough, one dose of Bumex 1 mg IV ordered and chest x-ray. Patient states that she was up in a chair yesterday and walked to the bathroom. Otherwise vital signs are stable. He has been afebrile. Repeat blood work reveals WBC 13.2, hemoglobin 10.7, platelet count 202. Sodium 136 otherwise looked her lites are normal. BUN 25 creatinine 1.33. Blood sugar 148. AST 42, ALT 35, alkaline phosphatase 94. Chest x-ray reveals correlate for heart failure otherwise consider pneumonia. Patient is currently on Zosyn. 01/13: She is found sitting up in bed in moderate distress complaining of shortness of breath. Patient feels that she is drowning. Restoril bedside for a updraft treatment. Chest x-ray from yesterday shows correlate for CHF otherwise consider pneumonia. Patient is currently on Lovenox subcu. Patient is unable to take Lasix due to an ALLERGY. Patient denies any chest pain palpitations. No calf pain or tenderness. Patient does have 2+ pitting edema noted to bilateral lower extremities. Bumex 1 mg IV push given. Venous Dopplers ordered. If venous Dopplers are positive patiently worked up for pulmonary embolism including a CTA of the chest. REVIEW OF SYSTEMS Constitutional: No fever, no chills, no night sweats. No weight change. No weakness, fatigue or lethargy. No daytime sleepiness. EENT: No headache. No blurred vision or double vision, no loss of vision. No loss of Hearing, no ringing in the ears, no dizziness. No nasal drainage or congestion. No epistaxis. No sore throat. Lungs: Reports shortness of breath, reports cough, no sputum production. No wheezing. Cardiovascular: No chest pain, no lower extremity edema. No palpitations. No paroxysmal nocturnal dyspnea. No orthopnea. No lightheadedness or dizziness. No syncopal episodes. Abdominal: Reports abdominal pain improved. Denies nausea, no vomiting. No diarrhea. Reports constipation. No bloody or tarry stools reports loss of appetite. Genitourinary: No dysuria, increased frequency, urgency. No urinary retention. Musculoskeletal: No myalgias. No muscle weakness, no gait dysfunction, no frequent falls. No back pain. No neck pain. Integumentary: No wounds, no lesions. No rash or pruritus. No unusual bruising. No change in hair or nails. Neurologic: No aphasia. No facial droop. No change in mentation. No head injury. No headache. No paralysis. No paresthesia. Psychiatric: No depression. No anxiety. No mood swings. Endocrine: No abnormal blood sugars. No weight change. No excessive sweating or thirst. No cold intolerance. PHYSICAL EXAMINATION Gen: This is a obese 70-year-old female. Patient is resting in bed in moderate distress, notable shortness of breath associated with conversation. HEENT: Head is atraumatic, normocephalic. Pupils equal, round. Sclerae is anicteric. NECK: Supple. No JVD. No lymphadenopathy. No thyromegaly. LUNGS: Crackles in the bilateral bases. No intercostal retractions. HEART: Regular rate and rhythm. No murmur. ABDOMEN: Soft. Bowel sounds are present. No masses. Generalized tenderness. EXTREMITIES: 2+ pedal edema. No calf tenderness. Dorsalis pedis +2 bilaterally. NEUROLOGICAL: Patient is awake, alert and oriented x3. Cranial nerves 2 through 12 are grossly intact. ASSESSMENT AND PLAN 1. Small bowel obstruction secondary to left mid abdominal spigelian hernia and ventral hernia and possible adhesions. Status post exploratory laparotomy, lysis of extensive adhesions, repair of incarcerated incisional hernia with mesh, partial omentectomy. Continue Dilaudid, Toradol for pain control, continue Zosyn 3.375 g IV piggyback every 8 hours, Zofran and Reglan as needed for nausea. 2. New onset of dyspnea CHF versus pulmonary embolism. Bumex 1 mg IV push, venous Dopplers, 3. Moderate intermittent asthma. Continue prednisone 5 mg daily, Symbicort 2 puffs twice daily, albuterol nebulizer treatment 3 times daily as needed, Singulair 10 mg at bedtime. 4. Headache secondary to caffeine withdrawal. Fioricet ordered. 5. Paroxysmal atrial fibrillation. Resume eliquis once cleared by general surgery. Continue flecainid 50 mg twice daily,. 6. Fluid overload secondary to IV fluids. IV fluids discontinued, one dose of IV Bumex ordered. 7. History of compression fracture, stable.. 8. Gastroesophageal reflux disease. Continue Protonix 9. Acute kidney injury. IV fluids discontinued. 10. DVT prophylaxis. SCDs. Resume eliquis once cleared by general surgery. DISCHARGE PLAN Most likely home. Impression and plan of care have been directed as dictated by the signing physician. Marizol Mccoy nurse practitioner acting as scribe for signing physician. Objective - Vital Signs Vital signs: Vital Signs Temp 98 F 01/13/21 12:12 Pulse 97 01/13/21 12:12 Resp 21 01/13/21 12:12 BP 130/62 01/13/21 12:12 Pulse Ox 91 L 01/13/21 12:12 Intake & Output 01/12/21 01/13/21 01/13/21 18:59 06:59 18:59 Intake Total 1560 300 Output Total 130 110 Balance 1430 190 Weight 82.1 kg Intake: Intake, IV Titration 1560 100 Amount Piperacillin-Tazobactam 3 100 .375 gm In Sodium Chloride 0.9% 100 ml @ 25 mls/hr IVPB Q8H [facility] Rx#: [id number] Sodium Chloride 0.9% 1, 1560 000 ml @ 130 mls/hr IV . Q7H42M [facility] Rx#:[id number] Oral 200 Output: Drainage 130 110 Right Abdomen 130 110 Other: Voiding Method Toilet Diaper # Voids 2 2 - Labs CBC & Chem 7: 01/13/21 07:18 01/13/21 07:18 Labs: Abnormal Lab Results - Last 24 Hours (Table) 01/13/21 01/13/21 Range/Units 07:18 07:18 RBC 3.04 L (3.80-5.40) m/uL Hgb 10.1 L (11.4-16.0) gm/dL Hct 31.4 L (34.0-46.0) % MCV 103.1 H (80.0-100.0) fL BUN 24 H (7-17) mg/dL Creatinine 1.19 H (0.52-1.04) mg/dL Total Protein 4.8 L (6.3-8.2) g/dL Albumin 2.4 L (3.5-5.0) g/dL
[2021-01-13] MEDS ORDERED: ALBUTEROL NEB (CONC) 2.5 MG/0.5 ML INHALATION PRN (16:21)
--- NOTE | 2021-01-13 18:14 | CT ---
EXAMINATION TYPE: CT angio chest DATE OF EXAM: 01/13/2021 COMPARISON: 07/28/2016 HISTORY: Shortness of breath CT DLP: 372.8 mGycm Automated exposure control for dose reduction was used. CONTRAST: Performed with IV Contrast, patient injected with 70 mL of Isovue 370. There are 3-D post processed images. There are bilateral pleural effusions with bilateral lower lobe pulmonary consolidation and atelectas is. There is moderate hiatal hernia. Heart is enlarged. There is no pericardial effusion. There is no mediastinal adenopathy. There are no hilar masses. Thoracic aorta is atheromatous. There is no aneur ysm or dissection. There is normal contrast opacification of the pulmonary arteries. There are no kenyatta ling defects. The thoracic spine shows multiple compression fractures with the lower thoracic kyphotic deformity. T here is anterior wedging and significant compression of T12 and T10 and T8 and T7 vertebra up to 80%. There is 1.5 cm calculus upper pole right kidney not changed. IMPRESSION: No evidence of pulmonary embolism. Pleural effusions and lower lobe pulmonary consolidation and atele ctasis which is significantly progressed compared to old exam. Numerous thoracic compression fractures not significantly different than old exam.
[2021-01-13] MEDS: ALBUTEROL NEB (CONC) 2.5 MG/0.5 ML INHALATION SCH (20:25)
[2021-01-13] MEDS: HYDROmorphone 1 MG/ML 1 ML SYRINGE IVP PRN (22:04)
[2021-01-14] MEDS: ALBUTEROL NEBULIZED 2.5 MG/3 ML INHALATION PRN (00:47)
[2021-01-14] MEDS: ALBUTEROL NEB (CONC) 2.5 MG/0.5 ML INHALATION SCH (00:50)
[2021-01-14] MEDS: KETOROLAC 15 MG/ML 1 ML VIAL IVP SCH ×4 (02:35→20:01)
[2021-01-14] MEDS: ALBUTEROL NEBULIZED 2.5 MG/3 ML INHALATION SCH ×5 (05:30→21:03)
[2021-01-14] MEDS: HYDROmorphone 1 MG/ML 1 ML SYRINGE IVP PRN ×3 (06:56→18:46)
[2021-01-14] MEDS: DILTIAZEM CD 180 MG CAP.ER.24H PO SCH (07:56)
[2021-01-14] MEDS: PANTOPRAZOLE 40 MG TABLET PO SCH (07:56)
[2021-01-14] MEDS: DOCUSATE 100 MG CAP PO SCH ×2 (07:57→20:01)
[2021-01-14] MEDS: FLECAINIDE 50 MG TAB PO SCH ×2 (07:57→20:01)
[2021-01-14] MEDS: predniSONE 5 MG TAB PO SCH (07:57)
[2021-01-14 07:58] LABS: Basophils # (A) 0.1 k/uL (0-0.2); Basophils % (A) 1 %; Eosinophils # (A) 0.7 k/uL (0-0.7); Eosinophils % (A) 7 %; HCT 30.2 % (34.0-46.0); HGB 9.7 gm/dL (11.4-16.0); Lymphocytes # (A) 1.8 k/uL (1.0-4.8); Lymphocytes % (A) 19 %; MCH 33.5 pg (25.0-35.0); MCHC 31.9 g/dL (31.0-37.0); MCV 104.8 fL (80.0-100.0); Macrocytosis Slight; Mean Platelet Volume 8.1; Monocytes # (A) 0.6 k/uL (0-1.0); Monocytes % (A) 7 %; Neutrophils # (A) 5.9 k/uL (1.3-7.7); Neutrophils % (A) 63 %; Platelet Count 257 k/uL (150-450); RBC 2.89 m/uL (3.80-5.40); RDW 12.9 % (11.5-15.5); WBC 9.3 k/uL (3.8-10.6)
[2021-01-14] MEDS: ENOXAPARIN 40 MG/0.4 ML SYRINGE SQ SCH (07:58)
[2021-01-14 08:10] LABS: African American GFR (CKD) 66 (>60 ml/min/1.73 sqM); Anion Gap 3 mmol/L; Blood Urea Nitrogen 22 mg/dL (7-17); Calcium 8.8 mg/dL (8.4-10.2); Carbon Dioxide 30 mmol/L (22-30); Chloride 105 mmol/L (98-107); Glucose 98 mg/dL (74-99); Non-African American GFR(CKD) 58 (>60 ml/min/1.73 sqM); Potassium 3.3 mmol/L (3.5-5.1); Sodium 138 mmol/L (137-145)
[2021-01-14] MEDS: SYMBICORT 160-4.5 MCG INHALER INHALATION SCH ×2 (08:30→21:03)
[2021-01-14] MEDS: BUMETANIDE 0.25 MG/ML 10 ML VIAL IV SCH ×2 (09:13→19:58)
--- NOTE | 2021-01-14 10:04 | P.PN ---
Subjective Progress Note Date: 01/14/21 Principal diagnosis: Incisional hernia Patient doing well today. Shortness of breath has resolved. Her pain is improved. White blood cell count normal at 9.3. Tolerating full liquids. Objective - Vital Signs Vital signs: Vital Signs Temp 97.7 F 01/14/21 04:54 Pulse 85 01/14/21 08:41 Resp 18 01/14/21 05:15 BP 110/65 01/14/21 07:56 Pulse Ox 93 L 01/14/21 05:15 Intake & Output 01/13/21 01/14/21 01/14/21 18:59 06:59 18:59 Intake Total 200 Output Total 125 150 Balance -125 50 Intake: Oral 200 Output: Drainage 125 150 Right Abdomen 125 150 Other: Voiding Method Toilet Diaper # Voids 3 - Exam Abdomen: Soft, nondistended, dressing clean and dry, ELENI serosanguineous - Labs CBC & Chem 7: 01/14/21 07:35 01/14/21 07:35 Labs: Abnormal Lab Results - Last 24 Hours (Table) 01/14/21 01/14/21 Range/Units 07:35 07:35 RBC 2.89 L (3.80-5.40) m/uL Hgb 9.7 L (11.4-16.0) gm/dL Hct 30.2 L (34.0-46.0) % MCV 104.8 H (80.0-100.0) fL Potassium 3.3 L (3.5-5.1) mmol/L BUN 22 H (7-17) mg/dL Assessment and Plan (1) Ventral hernia Narrative/Plan: Patient doing well at this time. Continue increasing diet. Monitor for return of bowel function. Increase activity. Current Visit: Yes Status: Acute Code(s): K43.9 - VENTRAL HERNIA WITHOUT OBSTRUCTION OR GANGRENE SNOMED Code(s): 780631792
--- NOTE | 2021-01-14 11:32 | P.PN ---
Subjective Progress Note Date: 01/14/21 HISTORY OF PRESENT ILLNESS This is 70-year-old female patient of Dr. John zarco with past medical history of paroxysmal atrial fibrillation moderate intermittent asthma on chronic pred nisone at 5 mg daily and follows with Dr. Gallardo, home O2 at 2 L at bedtime only, history of compression fracture of L2, T12 and T7, gastroesophageal reflux disease, hypertension, history of colostomy subsequent reversal with exploratory laparotomy and extensive lysis of adhesions, splenectomy, repair of incarcerated parastomal hernia and repair of incisional incarcerated hernia January [address] Boyer. Patient came into [facility] emergency center on January 05. CAT scan of the abdomen and pelvis with contrast revealed larger wide neck ventral wall eventration or hernia. Larger left mid abdominal spigelian hernia containing fluid filled small bowel loops. Spigelian hernia has prominent small bowel loops and the ventral wall eventration or hernia has dilated small bowel loops. Some additional dilated small bowel loops appear within the intraperitoneal cavity. 2 sites of possible adhesions noted. Chest x-ray reveals no acute pulmonary process, NG tube high in the thorax, hiatal hernia. Patient was admitted to general surgery service, NG tube was placed which has subsequently been removed and patient started on clear liquids. Patient states that she is tolerating clear liquids. She is complaining of severe headache which is related to caffeine withdrawal. Fioricet ordered. Patient has been on IV Zosyn. Eliquis is been on hold. Patient has been afebrile, heart rate in the 80s and 90s, pulse ox 94% on room air. WBC is 7, hemoglobin 12.5. Platelet count 186. Sodium 136 otherwise electrolytes are normal, creatinine 0.88. ALT 40. Urinalysis on 01 05 was turbid, blood large, nitrate positive, leukoesterase large, RBCs greater than 182 and WBCs greater than 182, urine culture is finalized with pansensitive E. coli. Patient states that she has not had a bowel movement for 2 days. Patient is only reaching 750 ML's on incentive spirometry. 01/09: She states that she did have a bowel movement. She still has some abdominal pain. She states she is normally on MiraLAX at home which she has been advised to continue when she is discharged. Headache is completely gone after Fioricet. Patient states that she is tolerating diet without nausea or vomiting. She's been afebrile, blood pressure 107/64, heart rate 74, pulse ox 90% on room air. Her lites are normal, creatinine 0.78. Blood sugar 142. Medication reconciliation completed with anticipated discharge home today. 01/10: Due to patient's continued abdominal pain and not able to advance diet, patient was scheduled for lysis of adhesion today. Patient is gone for surgical procedure. 01/11: Yesterday, patient underwent exploratory laparotomy, lysis of extensive adhesions, repair of incarcerated incisional hernia with mesh, partial omentectomy. Patient complains of severe abdominal pain "since surgery ended." She is not controlled with Dilaudid and general surgery added Toradol. Patient also complains of nausea without vomiting. She has Zofran available Reglan added. His been afebrile, heart rate 99, blood pressure 92/60, pulse ox 91% on 4 L nasal cannula. Patient is utilizing incentive spirometry at decreased to 500 ML's. WBC 13.8. BUN 22 and creatinine 2.03. Patient is currently on clear liquids. 01/12: Patient's abdominal pain is improved today. She has been advanced to full liquid diet. She has not had a bowel movement. He is now on oxygen at 4 L n hai cannula with pulse ox of 95%. She does complain of a cough, one dose of Bumex 1 mg IV ordered and chest x-ray. Patient states that she was up in a chair yesterday and walked to the bathroom. Otherwise vital signs are stable. He has been afebrile. Repeat blood work reveals WBC 13.2, hemoglobin 10.7, platelet count 202. Sodium 136 otherwise looked her lites are normal. BUN 25 creatinine 1.33. Blood sugar 148. AST 42, ALT 35, alkaline phosphatase 94. Chest x-ray reveals correlate for heart failure otherwise consider pneumonia. Patient is currently on Zosyn. 01/13: She is found sitting up in bed in moderate distress complaining of shortness of breath. Patient feels that she is drowning. Restoril bedside for a updraft treatment. Chest x-ray from yesterday shows correlate for CHF otherwise consider pneumonia. Patient is currently on Lovenox subcu. Patient is unable to take Lasix due to an ALLERGY. Patient denies any chest pain palpitations. No calf pain or tenderness. Patient does have 2+ pitting edema noted to bilateral lower extremities. Bumex 1 mg IV push given. Venous Dopplers ordered. If venous Dopplers are positive patiently worked up for pulmonary embolism including a CTA of the chest. 01/14: Patient has no complaints of shortness of breath today. However she did continue to have shortness of breath yesterday he she was given a additional dose of Bumex. Her venous Dopplers were negative for DVT bilaterally. She also had a chest CTA which was negative for PE. We will continue with a diuretic twice a day. Patient continues to have 1+ pitting edema bilateral lower extremities. Diet has been increased to a regular diet and patient is tolerati ng well. We will consult pulmonology related to the shortness of breath. Patient has not had a bowel movement. REVIEW OF SYSTEMS Constitutional: No fever, no chills, no night sweats. No weight change. No weakness, fatigue or lethargy. No daytime sleepiness. EENT: No headache. No blurred vision or double vision, no loss of vision. No loss of Hearing, no ringing in the ears, no dizziness. No nasal drainage or congestion. No epistaxis. No sore throat. Lungs: Reports shortness of breath resolved, reports cough, no sputum production. No wheezing. Cardiovascular: No chest pain, no lower extremity edema. No palpitations. No paroxysmal nocturnal dyspnea. No orthopnea. No lightheadedness or dizziness. No syncopal episodes. Abdominal: Reports abdominal pain improved. Denies nausea, no vomiting. No diarrhea. Reports constipation. No bloody or tarry stools reports loss of appetite. Genitourinary: No dysuria, increased frequency, urgency. No urinary retention. Musculoskeletal: No myalgias. No muscle weakness, no gait dysfunction, no frequent falls. No back pain. No neck pain. Integumentary: No wounds, no lesions. No rash or pruritus. No unusual bruising. No change in hair or nails. Neurologic: No aphasia. No facial droop. No change in mentation. No head injury. No headache. No paralysis. No paresthesia. Psychiatric: No depression. No anxiety. No mood swings. Endocrine: No abnormal blood sugars. No weight change. No excessive sweating or thirst. No cold intolerance. PHYSICAL EXAMINATION Gen: This is a obese 70-year-old female. Patient is resting in bed in moderate distress, notable shortness of breath associated with conversation. HEENT: Head is atraumatic, normocephalic. Pupils equal, round. Sclerae is anicteric. NECK: Supple. No JVD. No lymphadenopathy. No thyromegaly. LUNGS: Crackles in the bilateral bases. No intercostal retractions. HEART: Regular rate and rhythm. No murmur. ABDOMEN: Soft. Bowel sounds are present. No masses. Generalized tenderness. EXTREMITIES: 2+ pedal edema. No calf tenderness. Dorsalis pedis +2 bilaterally. NEUROLOGICAL: Patient is awake, alert and oriented x3. Cranial nerves 2 through 12 are grossly intact. ASSESSMENT AND PLAN 1. Small bowel obstruction secondary to left mid abdominal spigelian hernia and ventral hernia and possible adhesions. Status post exploratory laparotomy, lysis of extensive adhesions, repair of incarcerated incisional hernia with mesh, partial omentectomy. Continue Dilaudid, Toradol for pain control, continue Zosyn 3.375 g IV piggyback every 8 hours, Zofran and Reglan as needed for nausea. 2. New onset of dyspnea CHF versus pulmonary embolism. Bumex 1 mg IV push x2 yesterday, will continue Bumex 0.5 mg every 12 hours, venous Dopplers - negative for DVT, chest CTA was negative for pulmonary embolism. Consult pulmonology 3. Moderate intermittent asthma. Continue prednisone 5 mg daily, Symbicort 2 puffs twice daily, albuterol nebulizer treatment 3 times daily as needed, Singulair 10 mg at bedtime. 4. Headache secondary to caffeine withdrawal. Fioricet ordered. 5. Paroxysmal atrial fibrillation. Resume eliquis once cleared by general surgery. Continue flecainid 50 mg twice daily,. 6. Fluid overload secondary to IV fluids. IV fluids discontinued, one dose of IV Bumex ordered. 7. History of compression fracture, stable.. 8. Gastroesophageal reflux disease. Continue Protonix 9. Acute kidney injury. IV fluids discontinued. 10. DVT prophylaxis. SCDs. Resume eliquis once cleared by general surgery. DISCHARGE PLAN Most likely home. Impression and plan of care have been directed as dictated by the signing physician. Marizol Mccoy nurse practitioner acting as scribe for signing physician. Objective - Vital Signs Vital signs: Vital Signs Temp 97.7 F 01/14/21 04:54 Pulse 85 01/14/21 08:41 Resp 18 01/14/21 05:15 BP 110/65 01/14/21 07:56 Pulse Ox 93 L 01/14/21 05:15 Intake & Output 01/13/21 01/14/21 01/14/21 18:59 06:59 18:59 Intake Total 200 Output Total 125 150 50 Balance -125 50 -50 Intake: Oral 200 Output: Drainage 125 150 50 Right Abdomen 125 150 50 Other: Voiding Method Toilet Diaper # Voids 3 - Labs CBC & Chem 7: 01/14/21 07:35 01/14/21 07:35 Labs: Abnormal Lab Results - Last 24 Hours (Table) 01/14/21 01/14/21 Range/Units 07:35 07:35 RBC 2.89 L (3.80-5.40) m/uL Hgb 9.7 L (11.4-16.0) gm/dL Hct 30.2 L (34.0-46.0) % MCV 104.8 H (80.0-100.0) fL Potassium 3.3 L (3.5-5.1) mmol/L BUN 22 H (7-17) mg/dL
[2021-01-14] MEDS: MONTELUKAST 10 MG TAB PO SCH (20:01)
[2021-01-14] MEDS: LACTATED RINGERS 1,000 ML IV SCH (22:17)
[2021-01-15] MEDS: ALBUTEROL NEBULIZED 2.5 MG/3 ML INHALATION SCH ×6 (01:17→18:53)
[2021-01-15] MEDS: KETOROLAC 15 MG/ML 1 ML VIAL IVP SCH ×4 (02:05→21:49)
[2021-01-15] MEDS: HYDROmorphone 1 MG/ML 1 ML SYRINGE IVP PRN (06:50)
[2021-01-15] MEDS: SYMBICORT 160-4.5 MCG INHALER INHALATION SCH ×2 (07:05→18:53)
[2021-01-15] MEDS: predniSONE 5 MG TAB PO SCH (10:04)
[2021-01-15] MEDS: PANTOPRAZOLE 40 MG TABLET PO SCH (10:04)
[2021-01-15] MEDS: DOCUSATE 100 MG CAP PO SCH ×2 (10:04→20:00)
[2021-01-15] MEDS: BUMETANIDE 0.25 MG/ML 10 ML VIAL IV SCH ×2 (10:05→20:00)
[2021-01-15] MEDS: ENOXAPARIN 40 MG/0.4 ML SYRINGE SQ SCH (10:05)
[2021-01-15] MEDS: DILTIAZEM CD 180 MG CAP.ER.24H PO SCH (10:05)
[2021-01-15] MEDS: FLECAINIDE 50 MG TAB PO SCH ×2 (10:05→20:00)
[2021-01-15 10:09] LABS: African American GFR (CKD) 72.1 (60.0-200.0); Anion Gap 11.1 mmol/L (4.00-12.00); BUN/Creat Ratio 23.63 Ratio (12.00-20.00); Calcium 8.9 mg/dL (8.7-10.3); Carbon Dioxide 27.6 mmol/L (21.6-31.8); Non-African American GFR(CKD) 62.2 (60.0-200.0); Potassium 3.5 mmol/L (3.5-5.5)
[2021-01-15] MEDS: HYDROcodone/APAP 5-325MG 1 EACH TAB PO PRN ×2 (12:21→20:00)
[2021-01-15] MEDS ORDERED: POTASSIUM CHLORIDE ER 20 MEQ TAB.ER PO STA (13:40)
--- NOTE | 2021-01-15 13:42 | P.PN ---
Subjective Progress Note Date: 01/15/21 CHIEF COMPLAINT: Abdominal pain HISTORY OF PRESENT ILLNESS: Patient is status post exploratory laparotomy, lysis of extensive adhesions, repair of incarcerated incisional hernia with mesh and partial omentectomy. Postop day #5. Patient reports that her pain is controlled. She denies any nausea or vomiting. Reports a decreased appetite. She is having flatus. No bowel movement. She's currently on a regular diet. Afebrile. Potassium 3.5 creatinine 0.9 PHYSICAL EXAM: VITAL SIGNS: Reviewed. GENERAL: Well-developed in no acute distress. HEENT: No sclera icterus. Extraocular movements grossly intact. Moist buccal mucosa. Head is atraumatic, normocephalic. ABDOMEN: Soft. Nondistended. Tenderness at incision site. Incision site clean dry and intact NEUROLOGIC: Alert and oriented. Cranial nerves II through XII grossly intact. ASSESSMENT: 1. Incarcerated incisional hernia and extensive abdominal adhesions Status post exploratory laparotomy, lysis of extensive adhesions, repair of incarcerated incisional hernia with mesh and partial omentectomy 2. Partial small bowel obstruction 3. Hypokalemia PLAN: -Add [place] to help with pain control and to transition to oral medication -Encourage patient to ambulate -Encourage patient to use incentive spirometer -Consult PT -Replace potassium -GI prophylaxis Protonix and DVT prophylaxis subcu lovenox Physician Purchasing Supervisor note has been reviewed by physician. Signing provider agrees with the documented findings, assessment, and plan of care. Objective - Vital Signs Vital signs: Vital Signs Temp 98.3 F 01/15/21 11:57 Pulse 84 01/15/21 11:57 Resp 18 01/15/21 11:57 BP 103/58 01/15/21 11:57 Pulse Ox 93 L 01/15/21 11:57 Intake & Output 01/14/21 01/15/21 01/15/21 18:59 06:59 18:59 Intake Total 600 Output Total 50 40 Balance -50 560 Intake: Oral 600 Output: Gastric Drainage 40 Drainage 50 Right Abdomen 50 Other: Voiding Method Toilet Diaper # Voids 3 2 - Labs CBC & Chem 7: 01/14/21 07:35 01/15/21 06:04 Labs: Abnormal Lab Results - Last 24 Hours (Table) 01/15/21 Range/Units 06:04 BUN/Creatinine Ratio 23.63 H (12.00-20.00) Ratio
--- NOTE | 2021-01-15 14:04 | P.CNPUL ---
History of Present Illness Consult date: 01/15/21 Requesting physician: Lucio Boyer Reason for consult: dyspnea, hypoxemia, pleural effusion, abnormal CXR/CT Chief complaint: Shortness of breath. History of present illness: Pulmonary consult dated 01/15/2021. 70-year-old female who presented to the emergency department with abdominal pain. The patient came to the emergency room on January 05. The patient had an extensive evaluation and was found to have an incarcerated incisional hernia. On January 10, the patient underwent an exploratory laparotomy, lysis of adhesions, and repair of incarcerated incisional hernia with mesh. The surgery was done by Dr. Boyer. Subsequent to the surgery, the patient developed some shortness of breath. She was thought to possibly have some fluid overload and the patient was treated with IV diuretics, as well as limiting her IV fluids. She's feeling much better now. I have seen the patient for many years for chronic bronchial asthma which has been well-controlled. I asked the patient wh ether or not she thought the as well as was causing her difficulty, she said no, this was something different. She does carry with her in addition to asthma, a diagnosis of atrial fibrillation, heart failure, gastroesophageal reflux disease, diverticular disease with perforation and previous surgery colostomy and colostomy reversal, skin cancer, among other things. She is a lifelong nonsmoker. Currently, she's feeling well. She is on 2 L. She's not receiving any IV fluids. Lab data includes a sodium potassium chloride CO2 anion gap BUN and creatinine from today, which are completely normal. From yesterday, her white count was 9.3, hemoglobin 9.7, hematocrit 30.2, with a normal platelet count. The patient's chest x-ray on admission, was normal. Chest x-ray on January 12, suggest fluid overload. Bilateral lower extremity Dopplers were negative for DVT. CT angiogram was negative for pulmonary embolism, did show bilateral pleural effusions, and some compressive atelectasis. Review of Systems REVIEW OF SYSTEMS: CONSTITUTIONAL: [Negative.] NEUROLOGIC: [ Negative.] HEENT: [ Negative.] CARDIAC: [Negative.] PULMONARY: Shortness of breath. This has resolved. GI: [Negative.] : [Negative.] RHEUMATOLOGIC: [ Negative.] IMMUNOLOGIC: [ Negative.] ENDOCRINE: [Negative. ] DERMATOLOGIC: [Negative.] Past Medical History Past Medical History: Atrial Fibrillation, Asthma, Cancer, Heart Failure, COPD, GERD/Reflux, Renal Disease, Respiratory Disorder Additional Past Medical History / Comment(s): Past diverticular perforation with surgery/colostomy with eventual reversal, bowel obstruction, home oxygen at HS 2L/NC, compression fractures T7 and T12 and L2 spine, chronic low back pain, osteoporosis, UTIs, sepsis, kidney stone, anemia, skin cancer with removal. History of Any Multi-Drug Resistant Organisms: None Reported Past Surgical History: Appendectomy, Bowel Resection, Cholecystectomy Additional Past Surgical History / Comment(s): Colonoscopies, bowel resection d/t perforation with colostomy, attempted colostomy reversal then exploratory lap with extensive lysis of adhesions, reversal of colostomy/repair of peristomal and incisional hernia/take down splenic flexure and partial omenectomy/spleenectomy, L eye cataract removed and repair of macular hole, cystoscopy-retrograde pyeloureterogram with stone removal, skin cancer removal. Past Anesthesia/Blood Transfusion Reactions: No Reported Reaction Past Psychological History: No Psychological Hx Reported Additional Psychological History / Comment(s): Pt resides alone. She has home O2 which she wears at HS and a nebulizer. She uses a cane to ambulate and owns a walker. She drives. Smoking Status: Never smoker Past Alcohol Use History: None Reported Past Drug Use History: None Reported - Past Family History Mother Family Medical History: Cancer Additional Family Medical History / Comment(s): COLON CANCER Father Family Medical History: Cancer Additional Family Medical History / Comment(s): stomach CA at age 95 Brother(s) Family Medical History: No Reported History Son(s) Family Medical History: No Reported History Medications and Allergies Home Medications Medication Instructions Recorded Confirmed Type Albuterol Nebulized [Ventolin 2.5 mg INHALATION RT-TID PRN 07/22/16 01/05/21 History Nebulized] Albuterol Sulfate [Proventil Hfa] 2 puff INHALATION RT-Q6H PRN 07/22/16 01/05/21 History Budesonide/Formoterol Fumarate 2 puff INHALATION RT-BID 07/22/16 01/05/21 History [Symbicort 160-4.5 Mcg Inhaler] Montelukast [Singulair] 10 mg PO HS 07/22/16 01/05/21 History Flecainide [Tambocor] 50 mg PO BID 01/19/18 01/05/21 History Folic Acid 1 mg PO DAILY 01/19/18 01/05/21 History Apixaban [Eliquis] 5 mg PO BID 05/25/18 01/05/21 History Diltiazem HCl [Cartia Xt] 180 mg PO QAM 05/25/18 01/05/21 History predniSONE 5 mg PO DAILY 05/27/18 01/05/21 History Ascorbic Acid [Vitamin C] 1,000 mg PO DAILY 01/05/21 01/05/21 History Calcitonin-Sunman Clover 1 spray NASAL DIRECTED 01/05/21 01/05/21 History Calcium/Vitamin D Chewable 1 tab PO DAILY 01/05/21 01/05/21 History D-Mannose 1,400 mg PO DAILY 01/05/21 01/05/21 History Fennel Tea 1 dose PO DAILY PRN 01/05/21 01/05/21 History Magnesium Oxide [Mag-Ox] 400 mg PO DAILY 01/05/21 01/05/21 History Allergies Allergy/AdvReac Type Severity Reaction Status Date / Time furosemide [From Lasix] Allergy Rash/Hives Verified 01/10/21 08:47 morphine AdvReac Hallucinati Verified 01/10/21 08:47 ons Physical Exam Osteopathic Statement: *. No significant issues noted on an osteopathic structural exam other than those noted in the History and Physical/Consult. Vitals: Vital Signs Temp Pulse Pulse Resp BP BP Pulse Ox 01/15/21 11:57 98.3 F 84 18 103/58 93 L 01/15/21 11:29 83 01/15/21 11:18 81 96 01/15/21 10:06 88 107/66 01/15/21 07:16 82 01/15/21 07:05 80 95 01/15/21 05:44 81 01/15/21 05:32 81 01/15/21 04:42 97.7 F 81 18 111/65 94 L 01/15/21 01:25 84 01/15/21 01:17 84 01/14/21 21:19 84 01/14/21 21:04 84 01/14/21 20:10 18 01/14/21 18:44 98.0 F 84 18 109/68 93 L 01/14/21 16:28 82 01/14/21 16:16 80 Intake and Output 01/14/21 01/15/21 01/15/21 22:59 06:59 14:59 Intake Total 600 Output Total 40 Balance -40 600 Intake: Oral 600 Output: Gastric Drainage 40 Other: Voiding Method Toilet Diaper # Voids 3 2 No acute distress, oriented 3. Currently just on 2 L nasal cannula. HEENT examination is grossly unremarkable. Neck supple. Full range of motion. No adenopathy thyromegaly or neck vein distention. Cardiovascular examination reveals regular rhythm rate. S1-S2 normal. No S3 or S4. No discernible murmur noted. Heart rate 83 bpm. Lungs reveal scattered bilateral rhonchi and bibasilar crackles. Breath sounds equal bilaterally. There are no wheezes. Abdomen tender, with bowel sounds. No masses. Extremities are intact. No cyanosis or clubbing. 1+ edema noted to the lower extremities. Skin is without rash or lesion. Neurologic examination is brief but nonfocal. Results - Laboratory Findings CBC and BMP: 01/14/21 07:35 01/15/21 06:04 Abnormal lab findings: Abnormal Labs 01/05/21 01/05/21 01/05/21 09:18 09:18 09:29 WBC 13.2 H RBC Hgb Hct MCV 102.9 H Neutrophils # 9.1 H Sodium Potassium Carbon Dioxide BUN 20 H Creatinine BUN/Creatinine Ratio Glucose 105 H Calcium AST ALT Total Protein Albumin Urine Appearance Turbid H Urine Protein 2+ H Urine Blood Large H Urine Nitrite Positive H Ur Leukocyte Esterase Large H Urine RBC >182 H Urine WBC >182 H Calcium Oxalate Crystal Moderate H Urine Bacteria Few H Urine Mucus Few H 01/08/21 01/08/21 01/09/21 11:29 11:29 13:42 WBC RBC 3.69 L Hgb Hct MCV 105.7 H Neutrophils # Sodium 136 L Potassium Carbon Dioxide BUN Creatinine BUN/Creatinine Ratio Glucose 109 H 142 H Calcium AST ALT 40 H Total Protein 5.5 L Albumin 3.1 L Urine Appearance Urine Protein Urine Blood Urine Nitrite Ur Leukocyte Esterase Urine RBC Urine WBC Calcium Oxalate Crystal Urine Bacteria Urine Mucus 01/10/21 01/11/21 01/11/21 05:33 13:29 13:29 WBC 13.8 H RBC 3.61 L 3.74 L Hgb Hct MCV 104.3 H 103.9 H Neutrophils # 11.1 H Sodium 136 L Potassium Carbon Dioxide 21 L BUN 22 H Creatinine 2.03 H BUN/Creatinine Ratio Glucose 126 H Calcium 8.1 L AST ALT Total Protein Albumin Urine Appearance Urine Protein Urine Blood Urine Nitrite Ur Leukocyte Esterase Urine RBC Urine WBC Calcium Oxalate Crystal Urine Bacteria Urine Mucus 01/12/21 01/12/21 01/13/21 09:45 09:45 07:18 WBC 13.2 H RBC 3.21 L 3.04 L Hgb 10.7 L 10.1 L Hct 33.8 L 31.4 L MCV 105.6 H 103.1 H Neutrophils # Sodium 136 L Potassium Carbon Dioxide BUN 25 H Creatinine 1.33 H BUN/Creatinine Ratio Glucose 148 H Calcium 8.0 L AST 42 H ALT 35 H Total Protein 4.8 L Albumin 2.5 L Urine Appearance Urine Protein Urine Blood Urine Nitrite Ur Leukocyte Esterase Urine RBC Urine WBC Calcium Oxalate Crystal Urine Bacteria Urine Mucus 01/13/21 01/14/21 01/14/21 07:18 07:35 07:35 WBC RBC 2.89 L Hgb 9.7 L Hct 30.2 L MCV 104.8 H Neutrophils # Sodium Potassium 3.3 L Carbon Dioxide BUN 24 H 22 H Creatinine 1.19 H BUN/Creatinine Ratio Glucose Calcium AST ALT Total Protein 4.8 L Albumin 2.4 L Urine Appearance Urine Protein Urine Blood Urine Nitrite Ur Leukocyte Esterase Urine RBC Urine WBC Calcium Oxalate Crystal Urine Bacteria Urine Mucus 01/15/21 06:04 WBC RBC Hgb Hct MCV Neutrophils # Sodium Potassium Carbon Dioxide BUN Creatinine BUN/Creatinine Ratio 23.63 H Glucose Calcium AST ALT Total Protein Albumin Urine Appearance Urine Protein Urine Blood Urine Nitrite Ur Leukocyte Esterase Urine RBC Urine WBC Calcium Oxalate Crystal Urine Bacteria Urine Mucus - Diagnostic Findings Chest x-ray: image reviewed CT scan - chest: image reviewed U/S of Legs: image reviewed Assessment and Plan Assessment: Shortness of breath, which has resolved, likely related to fluid overload. Asthma, well controlled. Postop day #5, status post exploratory laparotomy, lysis of adhesions, and repair of incarcerated incisional hernia, with mesh placement. Multiple other medical problems and comorbidities. Plan: Plan dated 01/15/2021. The patient is feeling well today. She is on 2 L nasal cannula. Her symptoms of shortness of breath has resolved. The patient received diuretics, and her IV fluids were stopped. Her asthma is stable and not giving her any difficulty at this time. We do still recommend deep breathing coughing clearing of se cretions, and hourly use of the incentive spirometer. The patient should resume her normal home medications including prednisone 5 mg a day, Singulair 10 mg at bedtime, Symbicort 160/4.5, 2 puffs twice a day, and albuterol updrafts or albuterol inhaler, as needed. We will continue to follow make recommendations where appropriate. Prognosis is guarded. Time with Patient: Greater than 30
--- NOTE | 2021-01-15 16:05 | P.PN ---
Subjective Progress Note Date: 01/15/21 HISTORY OF PRESENT ILLNESS This is 70-year-old female patient of Dr. John zarco with past medical history of paroxysmal atrial fibrillation moderate intermittent asthma on chronic pr ednisone at 5 mg daily and follows with Dr. Gallardo, home O2 at 2 L at bedtime only, history of compression fracture of L2, T12 and T7, gastroesophageal reflux disease, hypertension, history of colostomy subsequent reversal with exploratory laparotomy and extensive lysis of adhesions, splenectomy, repair of incarcerated parastomal hernia and repair of incisional incarcerated hernia January 2018 by Elijah Boyer. Patient came into [facility] emergency center on January 05. CAT scan of the abdomen and pelvis with contrast revealed larger wide neck ventral wall eventration or hernia. Larger left mid abdominal spigelian hernia containing fluid filled small bowel loops. Spigelian hernia has prominent small bowel loops and the ventral wall eventration or hernia has dilated small bowel loops. Some additional dilated small bowel loops appear within the intraperitoneal cavity. 2 sites of possible adhesions noted. Chest x-ray reveals no acute pulmonary process, NG tube high in the thorax, hiatal hernia. Patient was admitted to general surgery service, NG tube was placed which has subsequently been removed and patient started on clear liquids. Patient states that she is tolerating clear liquids. She is complaining of severe headache which is related to caffeine withdrawal. Fioricet ordered. Patient has been on IV Zosyn. Eliquis is been on hold. Patient has been afebrile, heart rate in the 80s and 90s, pulse ox 94% on room air. WBC is 7, hemoglobin 12.5. Platelet count 186. Sodium 136 otherwise electrolytes are normal, creatinine 0.88. ALT 40. Urinalysis on 01 05 was turbid, blood large, nitrate positive, leukoesterase large, RBCs greater than 182 and WBCs greater than 182, urine culture is finalized with pansensitive E. coli. Patient states that she has not had a bowel movement for 2 days. Patient is only reaching 750 ML's on incentive spirometry. 01/09: She states that she did have a bowel movement. She still has some abdominal pain. She states she is normally on MiraLAX at home which she has been advised to continue when she is discharged. Headache is completely gone after Fioricet. Patient states that she is tolerating diet without nausea or vomiting. She's been afebrile, blood pressure 107/64, heart rate 74, pulse ox 90% on room air. Her lites are normal, creatinine 0.78. Blood sugar 142. Medication reconciliation completed with anticipated discharge home today. 01/10: Due to patient's continued abdominal pain and not able to advance diet, patient was scheduled for lysis of adhesion today. Patient is gone for surgical procedure. 01/11: Yesterday, patient underwent exploratory laparotomy, lysis of extensive adhesions, repair of incarcerated incisional hernia with mesh, partial omentectomy. Patient complains of severe abdominal pain "since surgery ended." She is not controlled with Dilaudid and general surgery added Toradol. Patient also complains of nausea without vomiting. She has Zofran available Reglan added. His been afebrile, heart rate 99, blood pressure 92/60, pulse ox 91% on 4 L nasal cannula. Patient is utilizing incentive spirometry at decreased to 500 ML's. WBC 13.8. BUN 22 and creatinine 2.03. Patient is currently on clear liquids. 01/12: Patient's abdominal pain is improved today. She has been advanced to full liquid diet. She has not had a bowel movement. He is now on oxygen at 4 L nasal cannula with pulse ox of 95%. She does complain of a cough, one dose of Bumex 1 mg IV ordered and chest x-ray. Patient states that she was up in a chair yesterday and walked to the bathroom. Otherwise vital signs are stable. He has been afebrile. Repeat blood work reveals WBC 13.2, hemoglobin 10.7, platelet count 202. Sodium 136 otherwise looked her lites are normal. BUN 25 creatinine 1.33. Blood sugar 148. AST 42, ALT 35, alkaline phosphatase 94. Chest x-ray reveals correlate for heart failure otherwise consider pneumonia. Patient is currently on Zosyn. 01/13: She is found sitting up in bed in moderate distress complaining of shortness of breath. Patient feels that she is drowning. Restoril bedside for a updraft treatment. Chest x-ray from yesterday shows correlate for CHF otherwise consider pneumonia. Patient is currently on Lovenox subcu. Patient is unable to take Lasix due to an ALLERGY. Patient denies any chest pain palpitations. No calf pain or tenderness. Patient does have 2+ pitting edema noted to bilateral lower extremities. Bumex 1 mg IV push given. Venous Dopplers ordered. If venous Dopplers are positive patiently worked up for pulmonary embolism including a CTA of the chest. 01/14: Patient has no complaints of shortness of breath today. However she did continue to have shortness of breath yesterday he she was given a additional dose of Bumex. Her venous Dopplers were negative for DVT bilaterally. She also had a chest CTA which was negative for PE. We will continue with a diuretic twice a day. Patient continues to have 1+ pitting edema bilateral lower extremities. Diet has been increased to a regular diet and patient is tolera ting well. We will consult pulmonology related to the shortness of breath. Patient has not had a bowel movement. 01/15: Patient states that her breathing is better from yesterday, consult was added for pulmonary medicine. PE has been ruled out by ultrasound and CTA. Patient is status post Bumex. Discussed discharge planning with the patient and she has a friend who will stay with her for 3 nights after discharge. She is having some mid abdominal pain and medications for pain or being switched to oral. She was REVIEW OF SYSTEMS Constitutional: No fever, no chills, no night sweats. No weight change. No weakness, fatigue or lethargy. No daytime sleepiness. EENT: No headache. No blurred vision or double vision, no loss of vision. No loss of Hearing, no ringing in the ears, no dizziness. No nasal drainage or congestion. No epistaxis. No sore throat. Lungs: No shortness of breath, reports cough, no sputum production. No wheezing. Cardiovascular: No chest pain, no lower extremity edema. No palpitations. No paroxysmal nocturnal dyspnea. No orthopnea. No lightheadedness or dizziness. No syncopal episodes. Abdominal: Reports abdominal pain improved. Denies nausea, no vomiting. No diarrhea. Reports constipation. No bloody or tarry stools reports loss of appetite. Genitourinary: No dysuria, increased frequency, urgency. No urinary retention. Musculoskeletal: No myalgias. No muscle weakness, no gait dysfunction, no frequent falls. No back pain. No neck pain. Integumentary: No wounds, no lesions. No rash or pruritus. No unusual br uising. No change in hair or nails. Neurologic: No aphasia. No facial droop. No change in mentation. No head injury. No headache. No paralysis. No paresthesia. Psychiatric: No depression. No anxiety. No mood swings. Endocrine: No abnormal blood sugars. No weight change. No excessive sweating or thirst. No cold intolerance. PHYSICAL EXAMINATION Gen: This is a obese 70-year-old female. Patient is resting in bed and appears to be comfortable and in no acute distress. HEENT: Head is atraumatic, normocephalic. Pupils equal, round. Sclerae is anicteric. NECK: Supple. No JVD. No lymphadenopathy. No thyromegaly. LUNGS: Scattered rhonchi. No intercostal retractions. HEART: Regular rate and rhythm. No murmur. ABDOMEN: Soft. Bowel sounds are present. No masses. Generalized tenderness. EXTREMITIES: No pedal edema. No calf tenderness. Dorsalis pedis +2 bilaterally. NEUROLOGICAL: Patient is awake, alert and oriented x3. Cranial nerves 2 through 12 are grossly intact. ASSESSMENT AND PLAN 1. Small bowel obstruction secondary to left mid abdominal spigelian hernia and ventral hernia and possible adhesions. Status post exploratory laparotomy, lysis of extensive adhesions, repair of incarcerated incisional hernia with mesh, partial omentectomy. Continue Dilaudid, [place], Toradol for pain control, patient is off antibiotics, Zofran and Reglan as needed for nausea. 2. New onset of dyspnea secondary to fluid overload status post Bumex 2. Workup for pulmonary embolism negative. Pulmonary consult appreciated. 3. Moderate intermittent asthma. Continue prednisone 5 mg daily, Symbicort 2 puffs twice daily, albuterol nebulizer treatment 3 times daily as needed, Singulair 10 mg at bedtime. 4. Headache secondary to caffeine withdrawal. Fioricet ordered. 5. Paroxysmal atrial fibrillation. Resume eliquis once cleared by general surgery. Continue flecainid 50 mg twice daily,. 6. Fluid overload secondary to IV fluids. 7. History of compression fracture, stable.. 8. Gastroesophageal reflux disease. Continue Protonix 9. Acute kidney injury. IV fluids discontinued. 10. DVT prophylaxis. SCDs. Resume eliquis once cleared by general surgery. DISCHARGE PLAN Most likely home. Impression and plan of care have been directed as dictated by the signing physician. Sue Castro nurse practitioner acting as scribe for signing physician. Objective - Vital Signs Vital signs: Vital Signs Temp 97.7 F 01/15/21 04:42 Pulse 88 01/15/21 10:06 Resp 18 01/15/21 04:42 BP 107/66 01/15/21 10:06 Pulse Ox 95 01/15/21 07:05 Intake & Output 01/14/21 01/15/21 01/15/21 18:59 06:59 18:59 Intake Total 600 Output Total 50 40 Balance -50 560 Intake: Oral 600 Output: Gastric Drainage 40 Drainage 50 Right Abdomen 50 Other: Voiding Method Toilet Diaper # Voids 3 2 - Labs CBC & Chem 7: 01/14/21 07:35 01/15/21 06:04 Labs: Abnormal Lab Results - Last 24 Hours (Table) 01/15/21 Range/Units 06:04 BUN/Creatinine Ratio 23.63 H (12.00-20.00) Ratio
[2021-01-15] MEDS: MONTELUKAST 10 MG TAB PO SCH (20:00)
[2021-01-15] MEDS ORDERED: ALBUTEROL NEBULIZED 2.5 MG/3 ML INHALATION PRN (21:11)
[2021-01-15] MEDS: LACTATED RINGERS 1,000 ML IV SCH (23:22)
[2021-01-16] MEDS: HYDROmorphone 1 MG/ML 1 ML SYRINGE IVP PRN (00:58)
[2021-01-16] MEDS: KETOROLAC 15 MG/ML 1 ML VIAL IVP SCH ×2 (03:46→07:37)
[2021-01-16 06:23] LABS: Basophils # (A) 0.1 k/uL (0-0.2); Basophils % (A) 1 %; Eosinophils # (A) 0.7 k/uL (0-0.7); Eosinophils % (A) 8 %; HCT 31.9 % (34.0-46.0); Lymphocytes # (A) 1.9 k/uL (1.0-4.8); Lymphocytes % (A) 24 %; MCH 32.8 pg (25.0-35.0); MCHC 31.2 g/dL (31.0-37.0); MCV 104.9 fL (80.0-100.0); Macrocytosis Slight; Monocytes # (A) 0.6 k/uL (0-1.0); Monocytes % (A) 8 %; Neutrophils # (A) 4.4 k/uL (1.3-7.7); Neutrophils % (A) 57 %; Platelet Count 316 k/uL (150-450); RBC 3.04 m/uL (3.80-5.40); RDW 12.9 % (11.5-15.5); WBC 7.8 k/uL (3.8-10.6)
[2021-01-16 07:10] LABS: African American GFR (CKD) 71 (>60 ml/min/1.73 sqM); Anion Gap 4 mmol/L; Blood Urea Nitrogen 25 mg/dL (7-17); Calcium 8.8 mg/dL (8.4-10.2); Carbon Dioxide 31 mmol/L (22-30); Chloride 102 mmol/L (98-107); Glucose 93 mg/dL (74-99); Non-African American GFR(CKD) 61 (>60 ml/min/1.73 sqM); Sodium 137 mmol/L (137-145)
[2021-01-16] MEDS: SYMBICORT 160-4.5 MCG INHALER INHALATION SCH ×2 (07:21→20:26)
[2021-01-16] MEDS: ALBUTEROL NEBULIZED 2.5 MG/3 ML INHALATION SCH ×4 (07:21→20:26)
[2021-01-16] MEDS: PANTOPRAZOLE 40 MG TABLET PO SCH (07:37)
[2021-01-16] MEDS: DOCUSATE 100 MG CAP PO SCH ×2 (07:37→20:43)
[2021-01-16] MEDS: FLECAINIDE 50 MG TAB PO SCH ×2 (07:38→20:44)
[2021-01-16] MEDS: DILTIAZEM CD 180 MG CAP.ER.24H PO SCH (07:38)
[2021-01-16] MEDS: predniSONE 5 MG TAB PO SCH (07:39)
[2021-01-16] MEDS: BUMETANIDE 0.25 MG/ML 10 ML VIAL IV SCH ×3 (07:39→20:44)
[2021-01-16] MEDS: ENOXAPARIN 40 MG/0.4 ML SYRINGE SQ SCH (07:41)
--- NOTE | 2021-01-16 10:24 | P.PN ---
Subjective Progress Note Date: 01/16/21 HISTORY OF PRESENT ILLNESS This is 70-year-old female patient of Dr. John zarco with past medical history of paroxysmal atrial fibrillation moderate intermittent asthma on chronic pr ednisone at 5 mg daily and follows with Dr. Gallardo, home O2 at 2 L at bedtime only, history of compression fracture of L2, T12 and T7, gastroesophageal reflux disease, hypertension, history of colostomy subsequent reversal with exploratory laparotomy and extensive lysis of adhesions, splenectomy, repair of incarcerated parastomal hernia and repair of incisional incarcerated hernia January 2018 by Elijah Boyer. Patient came into [facility] emergency center on January 05. CAT scan of the abdomen and pelvis with contrast revealed larger wide neck ventral wall eventration or hernia. Larger left mid abdominal spigelian hernia containing fluid filled small bowel loops. Spigelian hernia has prominent small bowel loops and the ventral wall eventration or hernia has dilated small bowel loops. Some additional dilated small bowel loops appear within the intraperitoneal cavity. 2 sites of possible adhesions noted. Chest x-ray reveals no acute pulmonary process, NG tube high in the thorax, hiatal hernia. Patient was admitted to general surgery service, NG tube was placed which has subsequently been removed and patient started on clear liquids. Patient states that she is tolerating clear liquids. She is complaining of severe headache which is related to caffeine withdrawal. Fioricet ordered. Patient has been on IV Zosyn. Eliquis is been on hold. Patient has been afebrile, heart rate in the 80s and 90s, pulse ox 94% on room air. WBC is 7, hemoglobin 12.5. Platelet count 186. Sodium 136 otherwise electrolytes are normal, creatinine 0.88. ALT 40. Urinalysis on 01 05 was turbid, blood large, nitrate positive, leukoesterase large, RBCs greater than 182 and WBCs greater than 182, urine culture is finalized with pansensitive E. coli. Patient states that she has not had a bowel movement for 2 days. Patient is only reaching 750 ML's on incentive spirometry. 01/09: She states that she did have a bowel movement. She still has some abdominal pain. She states she is normally on MiraLAX at home which she has been advised to continue when she is discharged. Headache is completely gone after Fioricet. Patient states that she is tolerating diet without nausea or vomiting. She's been afebrile, blood pressure 107/64, heart rate 74, pulse ox 90% on room air. Her lites are normal, creatinine 0.78. Blood sugar 142. Medication reconciliation completed with anticipated discharge home today. 01/10: Due to patient's continued abdominal pain and not able to advance diet, patient was scheduled for lysis of adhesion today. Patient is gone for surgical procedure. 01/11: Yesterday, patient underwent exploratory laparotomy, lysis of extensive adhesions, repair of incarcerated incisional hernia with mesh, partial omentectomy. Patient complains of severe abdominal pain "since surgery ended." She is not controlled with Dilaudid and general surgery added Toradol. Patient also complains of nausea without vomiting. She has Zofran available Reglan added. His been afebrile, heart rate 99, blood pressure 92/60, pulse ox 91% on 4 L nasal cannula. Patient is utilizing incentive spirometry at decreased to 500 ML's. WBC 13.8. BUN 22 and creatinine 2.03. Patient is currently on clear liquids. 01/12: Patient's abdominal pain is improved today. She has been advanced to full liquid diet. She has not had a bowel movement. He is now on oxygen at 4 L nasal cannula with pulse ox of 95%. She does complain of a cough, one dose of Bumex 1 mg IV ordered and chest x-ray. Patient states that she was up in a chair yesterday and walked to the bathroom. Otherwise vital signs are stable. He has been afebrile. Repeat blood work reveals WBC 13.2, hemoglobin 10.7, platelet count 202. Sodium 136 otherwise looked her lites are normal. BUN 25 creatinine 1.33. Blood sugar 148. AST 42, ALT 35, alkaline phosphatase 94. Chest x-ray reveals correlate for heart failure otherwise consider pneumonia. Patient is currently on Zosyn. 01/13: She is found sitting up in bed in moderate distress complaining of shortness of breath. Patient feels that she is drowning. Restoril bedside for a updraft treatment. Chest x-ray from yesterday shows correlate for CHF otherwise consider pneumonia. Patient is currently on Lovenox subcu. Patient is unable to take Lasix due to an ALLERGY. Patient denies any chest pain palpitations. No calf pain or tenderness. Patient does have 2+ pitting edema noted to bilateral lower extremities. Bumex 1 mg IV push given. Venous Dopplers ordered. If venous Dopplers are positive patiently worked up for pulmonary embolism including a CTA of the chest. 01/14: Patient has no complaints of shortness of breath today. However she did continue to have shortness of breath yesterday he she was given a additional dose of Bumex. Her venous Dopplers were negative for DVT bilaterally. She also had a chest CTA which was negative for PE. We will continue with a diuretic twice a day. Patient continues to have 1+ pitting edema bilateral lower extremities. Diet has been increased to a regular diet and patient is tolera ting well. We will consult pulmonology related to the shortness of breath. Patient has not had a bowel movement. 01/15: Patient states that her breathing is better from yesterday, consult was added for pulmonary medicine. PE has been ruled out by ultrasound and CTA. Patient is status post Bumex. Discussed discharge planning with the patient and she has a friend who will stay with her for 3 nights after discharge. She is having some mid abdominal pain and medications for pain or being switched to oral. She was 10: The patient is reaching 750 ML's on incentive spirometry. Pulse ox is 96% on 4 L. She's been afebrile, heart rate 84-102, blood pressure 119/67. Repeat blood work reveals WBC 7.8, hemoglobin 10, platelet count 316. CO2 is 31. BUN 25 and creatinine 0.95. The patient is still complaining of shortness of breath possibly related to diastolic heart failure. Echocardiogram ordered and Bumex increased to 1 mg IV twice daily. Echocardiogram is been ordered. Patient is also wearing an abdominal binder which may be interfering with her lung capacity. She states she has not had a bowel movement since surgery. She is currently on a regular diet and tolerating. Patient is requesting influenza vaccine prior to discharge which can be arranged. Patient will be transitioned to eliquis and Lovenox discontinued today. REVIEW OF SYSTEMS Constitutional: No fever, no chills, no night sweats. No weight change. No weakness, fatigue or lethargy. No daytime sleepiness. EENT: No headache. No blurred vision or double vision, no loss of vision. No loss of Hearing, no ringing in the ears, no dizziness. No nasal drainage or congestion. No epistaxis. No sore throat. Lungs: Reports shortness of breath, reports cough, no sputum production. No wheezing. Cardiovascular: No chest pain, no lower extremity edema. No palpitations. No paroxysmal nocturnal dyspnea. No orthopnea. No lightheadedness or dizziness. No syncopal episodes. Abdominal: Reports abdominal pain improved. Denies nausea, no vomiting. No diarrhea. Reports constipation, no bowel movement. No bloody or tarry stools reports loss of appetite. Genitourinary: No dysuria, increased frequency, urgency. No urinary retention. Musculoskeletal: No myalgias. No muscle weakness, no gait dysfunction, no frequent falls. No back pain. No neck pain. Integumentary: No wounds, no lesions. No rash or pruritus. No unusual bruising. No change in hair or nails. Neurologic: No aphasia. No facial droop. No change in mentation. No head injury. No headache. No paralysis. No paresthesia. Psychiatric: No depression. No anxiety. No mood swings. Endocrine: No abnormal blood sugars. No weight change. No excessive sweating or thirst. No cold intolerance. PHYSICAL EXAMINATION Gen: This is a obese 70-year-old female. Patient is resting in chair and appears to be comfortable and in no acute distress. HEENT: Head is atraumatic, normocephalic. Pupils equal, round. Sclerae is anicteric. NECK: Supple. No JVD. No lymphadenopathy. No thyromegaly. LUNGS: Scattered rhonchi, diminished at the bases. No intercostal retractions. HEART: Regular rate and rhythm. No murmur. ABDOMEN: Soft. Bowel sounds are present. No masses. Generalized tenderness. Abdominal binder in place. EXTREMITIES: No pedal edema. No calf tenderness. Dorsalis pedis +2 bilaterally. NEUROLOGICAL: Patient is awake, alert and oriented x3. Cranial nerves 2 through 12 are grossly intact. ASSESSMENT AND PLAN 1. Small bowel obstruction secondary to left mid abdominal spigelian hernia and ventral hernia and possible adhesions. Status post exploratory laparotomy, lysis of extensive adhesions, repair of incarcerated incisional hernia with mesh, partial omentectomy. Continue Smoaks, Toradol for pain control, patient is off antibiotics, Zofran and Reglan as needed for nausea. 2. New onset of dyspnea secondary to fluid overload, rule out acute diastolic heart failure. Bumex increased to 1 mg IV twice daily, monitor I&O and daily weights, echocardiogram ordered. Workup for pulmonary embolism negative. Pulmonary consult appreciated. 3. Moderate intermittent asthma. Continue prednisone 5 mg daily, Symbicort 2 puffs twice daily, albuterol nebulizer treatment 3 times daily as needed, Singulair 10 mg at bedtime. 4. Headache secondary to caffeine withdrawal, resolved. Fioricet ordered. 5. Paroxysmal atrial fibrillation. Resume eliquis once cleared by general surgery. Continue flecainid 50 mg twice daily,. 6. Fluid overload secondary to IV fluids. 7. History of compression fracture, stable.. 8. Gastroesophageal reflux disease. Continue Protonix 9. Acute kidney injury. IV fluids discontinued. 10. DVT prophylaxis. SCDs. Resume eliquis once cleared by general surgery. DISCHARGE PLAN Most likely home. Impression and plan of care have been directed as dictated by the signing physician. Sue Castro nurse practitioner acting as scribe for signing physician. Objective - Vital Signs Vital signs: Vital Signs Temp 98.0 F 01/16/21 03:48 Pulse 102 H 01/16/21 07:42 Resp 18 01/16/21 07:42 BP 119/67 01/16/21 07:42 Pulse Ox 96 01/16/21 03:48 Intake & Output 01/15/21 01/16/21 01/16/21 18:59 06:59 18:59 Intake Total 750 Output Total 135 160 Balance 615 -160 Weight 82.1 kg Intake: Oral 750 Output: Drainage 135 160 Right Abdomen 135 160 Other: Voiding Method Toilet Toilet Diaper Diaper # Voids 2 - Labs CBC & Chem 7: 01/16/21 05:52 01/16/21 05:52 Labs: Abnormal Lab Results - Last 24 Hours (Table) 01/15/21 01/16/21 01/16/21 Range/Units 06:04 05:52 05:52 RBC 3.04 L (3.80-5.40) m/uL Hgb 10.0 L (11.4-16.0) gm/dL Hct 31.9 L (34.0-46.0) % MCV 104.9 H (80.0-100.0) fL Carbon Dioxide 31 H (22-30) mmol/L BUN 25 H (7-17) mg/dL BUN/Creatinine Ratio 23.63 H (12.00-20.00) Ratio
[2021-01-16] MEDS: HYDROcodone/APAP 5-325MG 1 EACH TAB PO PRN ×2 (12:18→18:55)
--- NOTE | 2021-01-16 12:36 | ECHOF ---
Referral Reason:LVF MEASUREMENTS -------- HEIGHT: 162.6 cm WEIGHT: 82.1 kg BP: IVSd: 1.1 cm (0.6 - 1.1) LVIDd: 4.0 cm (3.9 - 5.3) LVPWd: 1.0 cm (0.6 - 1.1) IVSs: 1.7 cm LVIDs: 2.5 cm LVPWs: 1.7 cm LAESV Index (A-L): 48.84 ml/m Ao Diam: 3.0 cm (2.0 - 3.7) AV Cusp: 2.1 cm (1.5 - 2.6) LA Diam: 3.5 cm (2.7 - 3.8) MV EXCURSION: 14.126 mm (> 18.000) MV EF SLOPE: 65 mm/s (70 - 150) EPSS: 0.8 cm MV E Victor M: 1.19 m/s MV DecT: 206 ms MV A Victor M: 1.27 m/s MV E/A Ratio: 0.93 RAP: 5.00 mmHg RVSP: 31.07 mmHg FINDINGS -------- This was a technically good study. The left ventricular size is normal. There is mild concentric left ventricular hypertrophy. Overa ll left ventricular systolic function is normal with, an EF between 55 - 60 %. Increased LAP. Grade 2 Diastolic Dysfuntion. The right ventricle is normal in size. LA is severely dilated >40 ml/m2 The right atrial size is normal. The aortic valve is trileaflet and appears structurally normal. The mitral valve is normal. Mild mitral regurgitation is present. The tricuspid valve appears structurally normal. Mild tricuspid regurgitation present. Right vent ricular systolic pressure is normal at < 35 mmHg. There is no pulmonic regurgitation present. The aortic root size is normal. IVC Not well visulized. There is no pericardial effusion. CONCLUSIONS -------- 1. The left ventricular size is normal. 2. There is mild concentric left ventricular hypertrophy. 3. Overall left ventricular systolic function is normal with, an EF between 55 - 60 %. 4. Increased LAP. Grade 2 Diastolic Dysfuntion. 5. LA is severely dilated >40 ml/m2 6. Mild mitral regurgitation is present. 7. Mild tricuspid regurgitation present. 8. There is no pericardial effusion. TAILING MACHINE OPERATOR: Bre Rick RDCS
--- NOTE | 2021-01-16 12:37 | P.PN ---
Subjective Progress Note Date: 01/16/21 Principal diagnosis: Difficulty in breathing. Pulmonary consult dated 01/15/2021. 70-year-old female who presented to the emergency department with abdominal pain. The patient came to the emergency room on January 05. The patient had an extensive evaluation and was found to have an incarcerated incisional hernia. On January 10, the patient underwent an exploratory laparotomy, lysis of adhesions, and repair of incarcerated incisional hernia with mesh. The surgery was done by Dr. Boyer. Subsequent to the surgery, the patient developed some shortness of breath. She was thought to possibly have some fluid overload and the patient was treated with IV diuretics, as well as limiting her IV fluids. She's feeling much better now. I have seen the patient for many years for chronic bronchial asthma which has been well-controlled. I asked the patient whether or not she thought the as well as was causing her difficulty, she said no, this was something different. She does carry with her in addition to asthma, a diagnosis of atrial fibrillation, heart failure, gastroesophageal reflux disease, diverticular disease with perforation and previous surgery colostomy and colostomy reversal, skin cancer, among other things. She is a lifelong nonsmoker. Currently, she's feeling well. She is on 2 L. She's not receiving any IV fluids. Lab data includes a sodium potassium chloride CO2 anion gap BUN and creatinine from today, which are completely normal. From yesterday, her white count was 9.3, hemoglobin 9.7, hematocrit 30.2, with a normal platelet count. The patient's chest x-ray on admission, was normal. Chest x-ray on January 12, suggest fluid overload. Bilateral lower extremity Dopplers were negative for DVT. CT angiogram was negative for pulmonary em bolism, did show bilateral pleural effusions, and some compressive atelectasis. Progress note dated 01/16/2021. 70-year-old female seen yesterday in consultation for shortness of breath. She initially presented to the emergency department with abdominal pain. She was found to have an incarcerated incisional hernia. The patient underwent surgery, and had an exploratory laparotomy, lysis of adhesions, and repair of incarcerated incisional hernia with mesh. Subsequent to surgery, the patient develops shortness of breath. The acute shortness of breath following surgery likely related to underlying fluid overload. Her IVs were discontinued and she received diuretics. She's feeling much improved. Yesterday she was feeling back to her normal self. Currently, she is on nasal cannula at 2 L with excellent saturations. Labs include a white count of 7.8, hemoglobin 10, hematocrit 31.9, and a platelet count of normal. Sodium, potassium, chlorides are all normal. Bicarbonate concentration is 31. Anion gap is 4 BUN 25 and creatinine 0.95. Objective - Vital Signs Vital signs: Vital Signs Temp 98.0 F 01/16/21 03:48 Pulse 80 01/16/21 11:06 Resp 18 01/16/21 07:42 BP 119/67 01/16/21 07:42 Pulse Ox 96 01/16/21 03:48 Intake & Output 01/15/21 01/16/21 01/16/21 18:59 06:59 18:59 Intake Total 750 Output Total 135 160 40 Balance 615 -160 -40 Weight 82.1 kg 88.1 kg Intake: Oral 750 Output: Drainage 135 160 40 Right Abdomen 135 160 40 Other: Voiding Method Toilet Toilet Toilet Diaper Diaper Diaper # Voids 2 1 - Exam No acute distress, oriented 3. Currently just on 2 L nasal cannula. HEENT examination is grossly unremarkable. Neck supple. Full range of motion. No adenopathy thyromegaly or neck vein distention. Cardiovascular examination reveals regular rhythm rate. S1-S2 normal. No S3 or S4. No discernible murmur noted. Heart rate 80 bpm. Lungs reveal scattered bilateral rhonchi and bibasilar crackles. Breath sounds equal bilaterally. There are no wheezes. Abdomen tender, with bowel sounds. No masses. Extremities are intact. No cyanosis or clubbing. 1+ edema noted to the lower extremities. Skin is without rash or lesion. Neurologic examination is brief but nonfocal. - Labs CBC & Chem 7: 01/16/21 05:52 01/16/21 05:52 Labs: Abnormal Lab Results - Last 24 Hours (Table) 01/16/21 01/16/21 Range/Units 05:52 05:52 RBC 3.04 L (3.80-5.40) m/uL Hgb 10.0 L (11.4-16.0) gm/dL Hct 31.9 L (34.0-46.0) % MCV 104.9 H (80.0-100.0) fL Carbon Dioxide 31 H (22-30) mmol/L BUN 25 H (7-17) mg/dL Assessment and Plan Assessment: Shortness of breath, which has resolved, likely related to fluid overload. Asthma, well controlled. Postop day #6, status post exploratory laparotomy, lysis of adhesions, and repair of incarcerated incisional hernia, with mesh placement. Multiple other medical problems and comorbidities. Plan: Plan dated 01/15/2021. The patient is feeling well today. She is on 2 L nasal cannula. Her symptoms of shortness of breath has resolved. The patient received diuretics, and her IV fluids were stopped. Her asthma is stable and not giving her any difficulty at this time. We do still recommend deep breathing coughing clearing of se cretions, and hourly use of the incentive spirometer. The patient should resume her normal home medications including prednisone 5 mg a day, Singulair 10 mg at bedtime, Symbicort 160/4.5, 2 puffs twice a day, and albuterol updrafts or albuterol inhaler, as needed. We will continue to follow make recommendations where appropriate. Prognosis is guarded. Plan dated 01/16/2021. Currently, the patient remains on 2 L nasal cannula. Clinically, she's feeling much improved. The shortness of breath has resolved. We do recommend that she continue on her usual asthma medications. In addition, deep breathing, coughing, and clearing of secretions will be beneficial, as will the use of the incentive spirometer, every hour, while awake. We will continue to follow make recommendations where appropriate. Prognosis is thought to be generally good. Time with Patient: Less than 30
--- NOTE | 2021-01-16 13:46 | P.PN ---
Subjective Progress Note Date: 01/16/21 CHIEF COMPLAINT: Abdominal pain HISTORY OF PRESENT ILLNESS: Patient is status post exploratory laparotomy, lysis of extensive adhesions, repair of incarcerated incisional hernia with mesh and partial omentectomy. Postop day #6. Patient reports that her pain is controlled. She denies any nausea or vomiting. Reports a decreased appetite. She is having flatus. No bowel movement. She's currently on a regular diet. She had an echo completed this morning. She had been having shortness of breath this appears to have improved. Afebrile. WBC 7.8 potassium 4.0 PHYSICAL EXAM: VITAL SIGNS: Reviewed. GENERAL: Well-developed in no acute distress. HEENT: No sclera icterus. Extraocular movements grossly intact. Moist buccal mucosa. Head is atraumatic, normocephalic. ABDOMEN: Soft. Nondistended. Tenderness at incision site. Incision site clean dry and intact NEUROLOGIC: Alert and oriented. Cranial nerves II through XII grossly intact. ASSESSMENT: 1. Incarcerated incisional hernia and extensive abdominal adhesions Status post exploratory laparotomy, lysis of extensive adhesions, repair of incarcerated incisional hernia with mesh and partial omentectomy 2. Partial small bowel obstruction 3. Hypokalemia improved PLAN: -Continue regular diet -Encourage patient to ambulate -Encourage patient to use incentive spirometer -Okay to resume Eliquis from surgical standpoint -GI prophylaxis Protonix Physician Credit Department Manager note has been reviewed by physician. Signing provider agrees with the documented findings, assessment, and plan of care. Objective - Vital Signs Vital signs: Vital Signs Temp 97.9 F 01/16/21 12:46 Pulse 80 01/16/21 12:46 Resp 20 01/16/21 12:46 BP 115/67 01/16/21 12:46 Pulse Ox 94 L 01/16/21 12:46 Intake & Output 01/15/21 01/16/21 01/16/21 18:59 06:59 18:59 Intake Total 750 Output Total 135 160 40 Balance 615 -160 -40 Weight 82.1 kg 88.1 kg Intake: Oral 750 Output: Drainage 135 160 40 Right Abdomen 135 160 40 Other: Voiding Method Toilet Toilet Toilet Diaper Diaper Diaper # Voids 2 1 - Labs CBC & Chem 7: 01/16/21 05:52 10/12/21 05:52 Labs: Abnormal Lab Results - Last 24 Hours (Table) 01/16/21 01/16/21 Range/Units 05:52 05:52 RBC 3.04 L (3.80-5.40) m/uL Hgb 10.0 L (11.4-16.0) gm/dL Hct 31.9 L (34.0-46.0) % MCV 104.9 H (80.0-100.0) fL Carbon Dioxide 31 H (22-30) mmol/L BUN 25 H (7-17) mg/dL
[2021-01-16] MEDS: APIXABAN 5 MG TAB PO SCH (20:43)
[2021-01-16] MEDS: MONTELUKAST 10 MG TAB PO SCH (20:44)
[2021-01-17] MEDS: HYDROcodone/APAP 5-325MG 1 EACH TAB PO PRN ×4 (00:33→21:59)
[2021-01-17] MEDS: LACTATED RINGERS 1,000 ML IV SCH (07:20)
[2021-01-17] MEDS: BUMETANIDE 0.25 MG/ML 10 ML VIAL IV SCH ×2 (07:31→23:30)
[2021-01-17] MEDS: ALBUTEROL NEBULIZED 2.5 MG/3 ML INHALATION SCH ×4 (07:32→20:14)
[2021-01-17] MEDS: SYMBICORT 160-4.5 MCG INHALER INHALATION SCH ×2 (07:32→20:13)
[2021-01-17] MEDS: PANTOPRAZOLE 40 MG TABLET PO SCH (07:34)
[2021-01-17] MEDS: predniSONE 5 MG TAB PO SCH (07:34)
[2021-01-17] MEDS: DOCUSATE 100 MG CAP PO SCH ×2 (07:34→21:53)
[2021-01-17] MEDS: DILTIAZEM CD 180 MG CAP.ER.24H PO SCH (07:34)
[2021-01-17] MEDS: APIXABAN 5 MG TAB PO SCH ×2 (07:34→21:52)
[2021-01-17] MEDS: FLECAINIDE 50 MG TAB PO SCH ×2 (07:34→21:53)
--- NOTE | 2021-01-17 11:47 | P.PN ---
Subjective Progress Note Date: 01/17/21 HISTORY OF PRESENT ILLNESS This is 70-year-old female patient of Dr. John zarco with past medical history of paroxysmal atrial fibrillation moderate intermittent asthma on chronic pr ednisone at 5 mg daily and follows with Dr. Gallardo, home O2 at 2 L at bedtime only, history of compression fracture of L2, T12 and T7, gastroesophageal reflux disease, hypertension, history of colostomy subsequent reversal with exploratory laparotomy and extensive lysis of adhesions, splenectomy, repair of incarcerated parastomal hernia and repair of incisional incarcerated hernia January 2018 by Elijah Boyer. Patient came into [facility] emergency [facility] on January 05. CAT scan of the abdomen and pelvis with contrast revealed larger wide neck ventral wall eventration or hernia. Larger left mid abdominal spigelian hernia containing fluid filled small bowel loops. Spigelian hernia has prominent small bowel loops and the ventral wall eventration or hernia has dilated small bowel loops. Some additional dilated small bowel loops appear within the intraperitoneal cavity. 2 sites of possible adhesions noted. Chest x-ray reveals no acute pulmonary process, NG tube high in the thorax, hiatal hernia. Patient was admitted to general surgery service, NG tube was placed which has subsequently been removed and patient started on clear liquids. Patient states that she is tolerating clear liquids. She is complaining of severe headache which is related to caffeine withdrawal. Fioricet ordered. Patient has been on IV Zosyn. Eliquis is been on hold. Patient has been afebrile, heart rate in the 80s and 90s, pulse ox 94% on room air. WBC is 7, hemoglobin 12.5. Platelet count 186. Sodium 136 otherwise electrolytes are normal, creatinine 0.88. ALT 40. Urinalysis on 01 05 was turbid, blood large, nitrate positive, leukoesterase large, RBCs greater than 182 and WBCs greater than 182, urine culture is finalized with pansensitive E. coli. Patient states that she has not had a bowel movement for 2 days. Patient is only reaching 750 ML's on incentive spirometry. 01/09: She states that she did have a bowel movement. She still has some abdominal pain. She states she is normally on MiraLAX at home which she has been advised to continue when she is discharged. Headache is completely gone after Fioricet. Patient states that she is tolerating diet without nausea or vomiting. She's been afebrile, blood pressure 107/64, heart rate 74, pulse ox 90% on room air. Her lites are normal, creatinine 0.78. Blood sugar 142. Medication reconciliation completed with anticipated discharge home today. 01/10: Due to patient's continued abdominal pain and not able to advance diet, patient was scheduled for lysis of adhesion today. Patient is gone for surgical procedure. 01/11: Yesterday, patient underwent exploratory laparotomy, lysis of extensive adhesions, repair of incarcerated incisional hernia with mesh, partial omentectomy. Patient complains of severe abdominal pain "since surgery ended." She is not controlled with Dilaudid and general surgery added Toradol. Patient also complains of nausea without vomiting. She has Zofran available Reglan added. His been afebrile, heart rate 99, blood pressure 92/60, pulse ox 91% on 4 L nasal cannula. Patient is utilizing incentive spirometry at decreased to 500 ML's. WBC 13.8. BUN 22 and creatinine 2.03. Patient is currently on clear liquids. 01/12: Patient's abdominal pain is improved today. She has been advanced to full liquid diet. She has not had a bowel movement. He is now on oxygen at 4 L nasal cannula with pulse ox of 95%. She does complain of a cough, one dose of Bumex 1 mg IV ordered and chest x-ray. Patient states that she was up in a chair yesterday and walked to the bathroom. Otherwise vital signs are stable. He has been afebrile. Repeat blood work reveals WBC 13.2, hemoglobin 10.7, platelet count 202. Sodium 136 otherwise looked her lites are normal. BUN 25 creatinine 1.33. Blood sugar 148. AST 42, ALT 35, alkaline phosphatase 94. Chest x-ray reveals correlate for heart failure otherwise consider pneumonia. Patient is currently on Zosyn. 01/13: She is found sitting up in bed in moderate distress complaining of shortness of breath. Patient feels that she is drowning. Restoril bedside for a updraft treatment. Chest x-ray from yesterday shows correlate for CHF otherwise consider pneumonia. Patient is currently on Lovenox subcu. Patient is unable to take Lasix due to an ALLERGY. Patient denies any chest pain palpitations. No calf pain or tenderness. Patient does have 2+ pitting edema noted to bilateral lower extremities. Bumex 1 mg IV push given. Venous Dopplers ordered. If venous Dopplers are positive patiently worked up for pulmonary embolism including a CTA of the chest. 01/14: Patient has no complaints of shortness of breath today. However she did continue to have shortness of breath yesterday he she was given a additional dose of Bumex. Her venous Dopplers were negative for DVT bilaterally. She also had a chest CTA which was negative for PE. We will continue with a diuretic twice a day. Patient continues to have 1+ pitting edema bilateral lower extremities. Diet has been increased to a regular diet and patient is tolera ting well. We will consult pulmonology related to the shortness of breath. Patient has not had a bowel movement. 01/15: Patient states that her breathing is better from yesterday, consult was added for pulmonary medicine. PE has been ruled out by ultrasound and CTA. Patient is status post Bumex. Discussed discharge planning with the patient and she has a friend who will stay with her for 3 nights after discharge. She is having some mid abdominal pain and medications for pain or being switched to oral. She was 10: The patient is reaching 750 ML's on incentive spirometry. Pulse ox is 96% on 4 L. She's been afebrile, heart rate 84-102, blood pressure 119/67. Repeat blood work reveals WBC 7.8, hemoglobin 10, platelet count 316. CO2 is 31. BUN 25 and creatinine 0.95. The patient is still complaining of shortness of breath possibly related to diastolic heart failure. Echocardiogram ordered and Bumex increased to 1 mg IV twice daily. Echocardiogram is been ordered. Patient is also wearing an abdominal binder which may be interfering with her lung capacity. She states she has not had a bowel movement since surgery. She is currently on a regular diet and tolerating. Patient is requesting influenza vaccine prior to discharge which can be arranged. Patient will be transitioned to eliquis and Lovenox discontinued today. 01/17: She is breathing status is stable although she does have shortness of breath with minimal activity. She had a bowel movement and abdomen is feeling better, pain is improved. She states she was up in a chair all day yesterday but continues to feel quite weak and is requesting subacute rehab. Patient requested [facility] however her insurance is not accepted [facility] and now social work nurse is looking at [facility] for discharge. Medication reconciliation has been completed for discharged from medicine. Patient has been afebrile, heart rate in the 80s, blood pressure 113/61, pulse ox 96% on 3 L nasal cannula. Repeat coronavirus PCR not detected. Patient is cleared from medicine for discharge today. REVIEW OF SYSTEMS Constitutional: No fever, no chills, no night sweats. No weight change. No weakness, fatigue or lethargy. No daytime sleepiness. EENT: No headache. No blurred vision or double vision, no loss of vision. No loss of Hearing, no ringing in the ears, no dizziness. No nasal drainage or congestion. No epistaxis. No sore throat. Lungs: Reports shortness of breath, reports cough, no sputum production. No wheezing. Cardiovascular: No chest pain, no lower extremity edema. No palpitations. No paroxysmal nocturnal dyspnea. No orthopnea. No lightheadedness or dizziness. No syncopal episodes. Abdominal: Reports abdominal pain improved. Denies nausea, no vomiting. No diarrhea. Denies constipation, no bowel movement. No bloody or tarry stools reports loss of appetite. Genitourinary: No dysuria, increased frequency, urgency. No urinary retention. Musculoskeletal: No myalgias. Past muscle weakness, no gait dysfunction, no frequent falls. No back pain. No neck pain. Integumentary: No wounds, no lesions. No rash or pruritus. No unusual bruising. No change in hair or nails. Neurologic: No aphasia. No facial droop. No change in mentation. No head injury. No headache. No paralysis. No paresthesia. Psychiatric: No depression. No anxiety. No mood swings. Endocrine: No abnormal blood sugars. No weight change. PHYSICAL EXAMINATION Gen: This is a obese 70-year-old female. Patient is resting in bed and appears to be comfortable and in no acute distress. HEENT: Head is atraumatic, normocephalic. Pupils equal, round. Sclerae is anicteric. NECK: Supple. No JVD. No lymphadenopathy. No thyromegaly. LUNGS: Scattered rhonchi, diminished at the bases. No intercostal retractions. HEART: Regular rate and rhythm. No murmur. ABDOMEN: Soft. Bowel sounds are present. No masses. Generalized tenderness. Abdominal binder in place. EXTREMITIES: No pedal edema. No calf tenderness. Dorsalis pedis +2 bilaterally. NEUROLOGICAL: Patient is awake, alert and oriented x3. Cranial nerves 2 through 12 are grossly intact. ASSESSMENT AND PLAN 1. Small bowel obstruction secondary to left mid abdominal spigelian hernia and ventral hernia and possible adhesions. Status post exploratory laparotomy, lysis of extensive adhesions, repair of incarcerated incisional hernia with mesh, partial omentectomy. Continue [place], Toradol for pain control, patient is off antibiotics. 2. New onset of dyspnea secondary to fluid overload, rule out acute diastolic heart failure. Bumex 1 mg IV twice daily, monitor I&O and daily weights, echocardiogram ordered. Workup for pulmonary embolism negative. Pulmonary consult appreciated. 3. Moderate intermittent asthma. Continue prednisone 5 mg daily, Symbicort 2 puffs twice daily, albuterol nebulizer treatment 3 times daily as needed, Singulair 10 mg at bedtime. 4. Headache secondary to caffeine withdrawal, resolved. Fioricet ordered. 5. Paroxysmal atrial fibrillation. Resume eliquis once cleared by general surgery. Continue flecainid 50 mg twice daily,. 6. Fluid overload secondary to IV fluids. 7. History of compression fracture, stable.. 8. Gastroesophageal reflux disease. Continue Protonix 9. Acute kidney injury. IV fluids discontinued. 10. DVT prophylaxis. SCDs. Resume eliquis once cleared by general surgery. DISCHARGE PLAN [place]. Impression and plan of care have been directed as dictated by the signing physician. Sue Castro nurse practitioner acting as scribe for signing physician. Objective - Vital Signs Vital signs: Vital Signs Temp 98.6 F 01/17/21 05:00 Pulse 83 01/17/21 07:33 Resp 18 01/17/21 08:00 BP 113/61 01/17/21 05:00 Pulse Ox 93 L 01/17/21 07:33 Intake & Output 01/16/21 01/17/21 01/17/21 18:59 06:59 18:59 Intake Total 100 Output Total 135 80 35 Balance -135 20 -35 Weight 88.1 kg Intake: Oral 100 Output: Drainage 135 80 35 Right Abdomen 135 80 35 Other: Voiding Method Toilet Toilet Diaper # Voids 1 3 1 # Bowel Movements 1 - Labs CBC & Chem 7: 01/16/21 05:52 01/16/21 05:52
--- NOTE | 2021-01-17 13:13 | P.PN ---
Subjective Progress Note Date: 01/17/21 Pulmonary consult dated 01/15/2021. 70-year-old female who presented to the emergency department with abdominal pain. The patient came to the emergency room on January 05. The patient had an extensive evaluation and was found to have an incarcerated incisional hernia. On January 10, the patient underwent an exploratory laparotomy, lysis of adhesions, and repair of incarcerated incisional hernia with mesh. The surgery was done by Dr. Boyer. Subsequent to the surgery, the patient developed some shortness of breath. She was thought to possibly have some fluid overload and the patient was treated with IV diuretics, as well as limiting her IV fluids. She's feeling much better now. I have seen the patient for many years for chronic bronchial asthma which has been well-controlled. I asked the patient whether or not she thought the as well as was causing her difficulty, she said no, this was something different. She does carry with her in addition to asthma, a diagnosis of atrial fibrillation, heart failure, gastroesophageal reflux disease, diverticular disease with perforation and previous surgery colostomy and colostomy reversal, skin cancer, among other things. She is a lifelong nonsmoker. Currently, she's feeling well. She is on 2 L. She's not receiving any IV fluids. Lab data includes a sodium potassium chloride CO2 anion gap BUN and creatinine from today, which are completely normal. From yesterday, her white count was 9.3, hemoglobin 9.7, hematocrit 30.2, with a no rmal platelet count. The patient's chest x-ray on admission, was normal. Chest x-ray on January 12, suggest fluid overload. Bilateral lower extremity Dopplers were negative for DVT. CT angiogram was negative for pulmonary embolism, did show bilateral pleural effusions, and some compressive atelectasis. Progress note dated 01/16/2021. 70-year-old female seen yesterday in consultation for shortness of breath. She initially presented to the emergency department with abdominal pain. She was f ound to have an incarcerated incisional hernia. The patient underwent surgery, and had an exploratory laparotomy, lysis of adhesions, and repair of incarcerated incisional hernia with mesh. Subsequent to surgery, the patient develops shortness of breath. The acute shortness of breath following surgery likely related to underlying fluid overload. Her IVs were discontinued and she received diuretics. She's feeling much improved. Yesterday she was feeling back to her normal self. Currently, she is on nasal cannula at 2 L with excellent saturations. Labs include a white count of 7.8, hemoglobin 10, hematocrit 31.9, and a platelet count of normal. Sodium, potassium, chlorides are all normal. Bicarbonate concentration is 31. Anion gap is 4 BUN 25 and creatinine 0.95. The patient is seen today 01/17/2021 in follow-up on the regular medical floor. She is currently sitting up in a chair at the bedside. Awake and alert in no acute distress. She is status post exploratory laparotomy, lysis of adhesions and repair of an incarcerated incisional hernia with mesh. His only, she is denying any significant abdominal discomfort. She is maintaining good O2 saturations in the 90s on 3 L/m per nasal cannula. She's afebrile. Hemodynamically stable. Urine culture was positive for E. coli. No worsening shortness of breath, cough or congestion. She is maintained on Symbicort and albuterol. Echocardiogram revealed preserved left ventricular systolic function. Objective - Vital Signs Vital signs: Vital Signs Temp 98.3 F 01/17/21 12:42 Pulse 82 01/17/21 12:42 Resp 19 01/17/21 12:42 BP 104/65 01/17/21 12:42 Pulse Ox 92 L 01/17/21 12:42 Intake & Output 01/16/21 01/17/21 01/17/21 18:59 06:59 18:59 Intake Total 100 Output Total 135 80 35 Balance -135 20 -35 Weight 88.1 kg Intake: Oral 100 Output: Drainage 135 80 35 Right Abdomen 135 80 35 Other: Voiding Method Toilet Toilet Diaper # Voids 1 3 1 # Bowel Movements 1 - Exam GENERAL EXAM: Alert, 70-year-old female patient, on 3 L nasal cannula, up in a chair at the bedside, comfortable in no apparent distress. HEAD: Normocephalic. EYES: Normal reaction of pupils, equal size. NOSE: Clear with pink turbinates. THROAT: No erythema or exudates. NECK: No masses, no JVD. CHEST: No chest wall deformity. LUNGS: Equal air entry with no crackles, wheeze, rhonchi or dullness. CVS: S1 and S2 normal with no audible murmur, regular rhythm. ABDOMEN: No hepatosplenomegaly, normal bowel sounds, no guarding or rigidity. SPINE: No scoliosis or deformity SKIN: No rashes CENTRAL NERVOUS SYSTEM: No focal deficits, tone is normal in all 4 extremities. EXTREMITIES: There is no peripheral edema. No clubbing, no cyanosis. Peripheral pulses are intact. - Labs CBC & Chem 7: 01/16/21 05:52 01/16/21 05:52 Assessment and Plan Assessment: 1 Shortness of breath, which has resolved, likely related to fluid overload. 2 Asthma, well controlled. 3 Postop day #7, status post exploratory laparotomy, lysis of adhesions, and repair of incarcerated incisional hernia, with mesh placement. 4 Multiple other medical problems and comorbidities. Plan: The patient was seen and evaluated by Dr. Paulina Ortiz from the pulmonary standpoint Continue Symbicort, albuterol HFA Titrate the FiO2 as tolerated Plan is to transfer to subacute rehab I, the cosigning physician, performed a history & physical examination of the patient. Lungs sounds are clear. Maintaining good O2 saturations in the 90s on 3 L/m per nasal cannula I discussed the assessment and plan of care with my nurse practitioner, Kimber Stewart. I attest to the above note as dictated by her.
--- NOTE | 2021-01-17 14:57 | P.DS ---
Providers Date of admission: 01/05/21 11:26 Expected date of discharge: 01/17/21 Attending physician: Lucio Boyer Consults: 01/08/21 08:14 Consult Physician Routine Consulting Provider: Shabbir Peres Consult Reason/Comments: medical management Do you want consulting provider notified?: Yes 01/14/21 08:45 Consult Physician Routine Consulting Provider: Chencho Gallardo Reason/Comments: SOB Do you want consulting provider notified?: Yes Primary care physician: Terence Lopez Hospital Course: Discharge diagnosis 1. Incarcerated incisional hernia and extensive abdominal adhesions Status post exploratory laparotomy, lysis of extensive adhesions, repair of incarcerated incisional hernia with mesh and partial omentectomy 2. Partial small bowel obstruction 3. Hypokalemia improved 4. Fluid overload improved with IV Lasix Hospital course This is a 70-year-old female who presented with upper and mid abdominal pain. She reports the pain came on suddenly. She has been having nausea and vomiting. She has had 4 episodes of emesis. She did have a small bowel movement early this morning with some flatus. Computed tomography scan had shown evidence of a small bowel obstruction likely due to her abdominal hernia. Patient had NG tube placed. Patient is status post exploratory laparotomy, lysis of extensive adhesions, repair of incarcerated incisional hernia with mesh and partial omentectomy. Patient tolerated surgery well. Her pain is controlled. She is tolerating diet. She is having bowel movements. She denies any difficulty urinating. She is up and ambulating. She was seen by medicine service and pulmonary service during this admission. She had some mild fluid overload. She was given IV Lasix and fluids were hep-locked. Her shortness of breath improved. Patient has been cleared by medicine service and pulmonary service for discharge. Patient worked with physical therapy they're recommending patient continue rehab at [facility]. Patient is stable for discharge. She'll be discharged to an ECF once she receives insurance authorizations. Patient will be discharged with ELENI drains. Patient is stable for discharge. Please refer to chart for any further details. Physician [employer] note has been reviewed by physician. Signing provider agrees with the documented findings, assessment, and plan of care. Patient Condition at Discharge: Stable Plan - Discharge Summary Discharge Rx Participant: Yes New Discharge Prescriptions: New Bumetanide [Bumex] 1 mg PO BID #60 tablet Docusate [Colace] 100 mg PO BID cap HYDROcodone/APAP 5-325MG [Pillager 5-325] 1 tab PO Q6HR PRN 3 Days #12 tab PRN Reason: Pain Continue Albuterol Sulfate [Proventil Hfa] 2 puff INHALATION RT-Q6H PRN PRN Reason: Shortness Of Breath Budesonide/Formoterol Fumarate [Symbicort 160-4.5 Mcg Inhaler] 2 puff INHALATION RT-BID Albuterol Nebulized [Ventolin Nebulized] 2.5 mg INHALATION RT-TID PRN PRN Reason: Shortness Of Breath Montelukast [Singulair] 10 mg PO HS Flecainide [Tambocor] 50 mg PO BID Folic Acid 1 mg PO DAILY Apixaban [Eliquis] 5 mg PO BID Diltiazem HCl [Cartia Xt] 180 mg PO QAM predniSONE 5 mg PO DAILY Calcium/Vitamin D Chewable 1 tab PO DAILY Ascorbic Acid [Vitamin C] 1,000 mg PO DAILY Calcitonin-[facility] 1 spray NASAL DIRECTED Magnesium Oxide [Mag-Ox] 400 mg PO DAILY Fennel Tea 1 dose PO DAILY PRN PRN Reason: gas D-Mannose 1,400 mg PO DAILY Discharge Medication List Albuterol Nebulized [Ventolin Nebulized] 2.5 mg INHALATION RT-TID PRN 07/22/16 [History] Albuterol Sulfate [Proventil Hfa] 2 puff INHALATION RT-Q6H PRN 07/22/16 [History] Budesonide/Formoterol Fumarate [Symbicort 160-4.5 Mcg Inhaler] 2 puff INHALATION RT-BID 07/22/16 [History] Montelukast [Singulair] 10 mg PO HS 07/22/16 [History] Flecainide [Tambocor] 50 mg PO BID 01/19/18 [History] Folic Acid 1 mg PO DAILY 01/19/18 [History] Apixaban [Eliquis] 5 mg PO BID 05/25/18 [History] Diltiazem HCl [Cartia Xt] 180 mg PO QAM 05/25/18 [History] predniSONE 5 mg PO DAILY 05/27/18 [History] Ascorbic Acid [Vitamin C] 1,000 mg PO DAILY 01/05/21 [History] Calcitonin-[facility] 1 spray NASAL DIRECTED 01/05/21 [History] Calcium/Vitamin D Chewable 1 tab PO DAILY 01/05/21 [History] D-Mannose 1,400 mg PO DAILY 01/05/21 [History] Fennel Tea 1 dose PO DAILY PRN 01/05/21 [History] Magnesium Oxide [Mag-Ox] 400 mg PO DAILY 01/05/21 [History] Bumetanide [Bumex] 1 mg PO BID #60 tablet 01/17/21 [Rx] Docusate [Colace] 100 mg PO BID cap 01/17/21 [Rx] HYDROcodone/APAP 5-325MG [Pillager 5-325] 1 tab PO Q6HR PRN 3 Days #12 tab 01/17/21 [Rx] Follow up Appointment(s)/Referral(s): [facility], [NON-STAFF] - Terence Lopez MD [Primary Care Provider] - 1 Week (after discharge from [facility]) Lucio Boyer MD [STAFF PHYSICIAN] - 1 Week Patient Instructions/Handouts: Heart Failure (DC) Activity/Diet/Wound Care/Special Instructions: No driving while taking Pillager No lifting over 10 pounds You may shower. No soaking or tub baths for 2 weeks Very light activity until you are reevaluated at your follow up appointment with your surgeon Diet regular Discharge Disposition: TRANSFER TO SNF/ECF
[2021-01-17] MEDS: MONTELUKAST 10 MG TAB PO SCH (21:52)
[2021-01-18] MEDS: HYDROmorphone 1 MG/ML 1 ML SYRINGE IVP PRN (00:41)
[2021-01-18] MEDS: ONDANSETRON 4 MG/2 ML VIAL IVP PRN (03:47)
[2021-01-18] MEDS: LACTATED RINGERS 1,000 ML IV SCH (04:29)
[2021-01-18] MEDS: SYMBICORT 160-4.5 MCG INHALER INHALATION SCH (07:30)
[2021-01-18] MEDS: ALBUTEROL NEBULIZED 2.5 MG/3 ML INHALATION SCH ×2 (07:30→11:14)
[2021-01-18] MEDS: PANTOPRAZOLE 40 MG TABLET PO SCH (08:07)
[2021-01-18] MEDS: BUTALB/APAP/CAFF 50-325-40MG TAB PO PRN (08:07)
[2021-01-18] MEDS: DOCUSATE 100 MG CAP PO SCH (08:07)
[2021-01-18] MEDS: APIXABAN 5 MG TAB PO SCH (08:07)
[2021-01-18] MEDS: DILTIAZEM CD 180 MG CAP.ER.24H PO SCH (08:07)
[2021-01-18] MEDS: FLECAINIDE 50 MG TAB PO SCH (08:07)
[2021-01-18] MEDS: predniSONE 5 MG TAB PO SCH (08:07)
[2021-01-18] MEDS: BUMETANIDE 0.25 MG/ML 10 ML VIAL IV SCH (08:08)
--- NOTE | 2021-01-18 11:10 | P.PN ---
Subjective Progress Note Date: 01/18/21 Principal diagnosis: Difficulty in breathing. Pulmonary consult dated 01/15/2021. 70-year-old female who presented to the emergency department with abdominal pain. The patient came to the emergency room on January 05. The patient had an extensive evaluation and was found to have an incarcerated incisional hernia. On January 10, the patient underwent an exploratory laparotomy, lysis of adhesions, and repair of incarcerated incisional hernia with mesh. The surgery was done by Dr. Boyer. Subsequent to the surgery, the patient developed some shortness of breath. She was thought to possibly have some fluid overload and the patient was treated with IV diuretics, as well as limiting her IV fluids. She's feeling much better now. I have seen the patient for many years for chronic bronchial asthma which has been well-controlled. I asked the patient whether or not she thought the as well as was causing her difficulty, she said no, this was something different. She does carry with her in addition to asthma, a diagnosis of atrial fibrillation, heart failure, gastroesophageal reflux disease, diverticular disease with perforation and previous surgery colostomy and colostomy reversal, skin cancer, among other things. She is a lifelong nonsmoker. Currently, she's feeling well. She is on 2 L. She's not receiving any IV fluids. Lab data includes a sodium potassium chloride CO2 anion gap BUN and creatinine from today, which are completely normal. From yesterday, her white count was 9.3, hemoglobin 9.7, hematocrit 30.2, with a normal platelet count. The patient's chest x-ray on admission, was normal. Chest x-ray on January 12, suggest fluid overload. Bilateral lower extremity Dopplers were negative for DVT. CT angiogram was negative for pulmonary em bolism, did show bilateral pleural effusions, and some compressive atelectasis. Progress note dated 01/16/2021. 70-year-old female seen yesterday in consultation for shortness of breath. She initially presented to the emergency department with abdominal pain. She was found to have an incarcerated incisional hernia. The patient underwent surgery, and had an exploratory laparotomy, lysis of adhesions, and repair of incarcerated incisional hernia with mesh. Subsequent to surgery, the patient develops shortness of breath. The acute shortness of breath following surgery likely related to underlying fluid overload. Her IVs were discontinued and she received diuretics. She's feeling much improved. Yesterday she was feeling back to her normal self. Currently, she is on nasal cannula at 2 L with excellent saturations. Labs include a white count of 7.8, hemoglobin 10, hematocrit 31.9, and a platelet count of normal. Sodium, potassium, chlorides are all normal. Bicarbonate concentration is 31. Anion gap is 4 BUN 25 and creatinine 0.95. The patient is seen today 01/17/2021 in follow-up on the regular medical floor. She is currently sitting up in a chair at the bedside. Awake and alert in no acute distress. She is status post exploratory laparotomy, lysis of adhesions and repair of an incarcerated incisional hernia with mesh. His only, she is denying any significant abdominal discomfort. She is maintaining good O2 saturations in the 90s on 3 L/m per nasal cannula. She's afebrile. Hemodynamically stable. Urine culture was positive for E. coli. No worsening shortness of breath, cough or congestion. She is maintained on Symbicort and albuterol. Echocardiogram revealed preserved left ventricular systolic function. Progress note dated 01/18/2021. Currently, the patient's doing well. She seen again in room 526. She is on 3 L nasal cannula. She apparently may be discharged home today. She does have some ankle swelling. She's not receiving any IV fluids. When I saw her last in the office, I told her that she should come back and see me in one year. Today, I modified that and told her I would like to see her over the next couple of weeks to make sure that she continues to do well. Her shortness of breath after surgery on this admission, related to the fact that she was getting too many fluids, and 1 she received diuretics, she did much better. No labs today or yesterday. Objective - Vital Signs Vital signs: Vital Signs Temp 97.7 F 01/18/21 04:46 Pulse 78 01/18/21 08:10 Resp 18 01/18/21 04:46 BP 106/56 01/18/21 08:10 Pulse Ox 98 01/18/21 07:30 Intake & Output 01/17/21 01/18/21 01/18/21 18:59 06:59 18:59 Intake Total 540 Output Total 75 340 Balance 465 -340 Weight 84 kg Intake: Oral 540 Output: Drainage 75 40 Right Abdomen 75 40 Urine 300 Other: Voiding Method Toilet Toilet # Voids 1 5 # Bowel Movements 1 1 - Exam No acute distress, oriented 3. Currently just on 3 L nasal cannula. HEENT examination is grossly unremarkable. Neck supple. Full range of motion. No adenopathy thyromegaly or neck vein distention. Cardiovascular examination reveals regular rhythm rate. S1-S2 normal. No S3 or S4. No discernible murmur noted. Heart rate 78 bpm. Lungs reveal scattered bilateral rhonchi and bibasilar crackles. Breath sounds equal bilaterally. There are no wheezes. Abdomen tender, with bowel sounds. No masses. Extremities are intact. No cyanosis or clubbing. 1+ edema noted to the lower extremities. Skin is without rash or lesion. Neurologic examination is brief but nonfocal. - Labs CBC & Chem 7: 01/16/21 05:52 01/16/21 05:52 Assessment and Plan Assessment: Shortness of breath, which has resolved, likely related to fluid overload. Asthma, well controlled. Postop day #8, status post exploratory laparotomy, lysis of adhesions, and repair of incarcerated incisional hernia, with mesh placement. Multiple other medical problems and comorbidities. Plan: Plan dated 01/15/2021. The patient is feeling well today. She is on 2 L nasal cannula. Her symptoms of shortness of breath has resolved. The patient received diuretics, and her IV fluids were stopped. Her asthma is stable and not giving her any difficulty at this time. We do still recommend deep breathing coughing clearing of secretions, and hourly use of the incentive spirometer. The patient should resume her normal home medications including prednisone 5 mg a day, Singulair 10 mg at bedtime, Symbicort 160/4.5, 2 puffs twice a day, and albuterol updrafts or albuterol inhaler, as needed. We will continue to follow make recommendations where appropriate. Prognosis is guarded. Plan dated 01/16/2021. Currently, the patient remains on 2 L nasal cannula. Clinically, she's feeling much improved. The shortness of breath has resolved. We do recommend that she continue on her usual asthma medications. In addition, deep breathing, coughing, and clearing of secretions will be beneficial, as will the use of the incentive spirometer, every hour, while awake. We will continue to follow make recommendations where appropriate. Prognosis is thought to be generally good. Plan dated 01/18/2021. I did asked the patient to come back and see me in the office sooner than 1 year. I disorder make sure that from the pulmonary standpoint, she is doing well. She still has a bit of lower extremity edema. Her breathing is much improved. She may need to be discharged home on oxygen therapy. Currently, though her saturations are 98% on 3 L. We will continue to follow make recommendations where appropriate. Time with Patient: Less than 30
[2021-01-18 11:41] VITALS: BP 101/65; PULSE 73; RESP 17; TEMP 97.8
--- NOTE | 2021-01-19 15:29 | P.PN ---
Subjective Progress Note Date: 01/18/21 HISTORY OF PRESENT ILLNESS This is 70-year-old female patient of Dr. John zarco with past medical history of paroxysmal atrial fibrillation moderate intermittent asthma on chronic pr ednisone at 5 mg daily and follows with Dr. Gallardo, home O2 at 2 L at bedtime only, history of compression fracture of L2, T12 and T7, gastroesophageal reflux disease, hypertension, history of colostomy subsequent reversal with exploratory laparotomy and extensive lysis of adhesions, splenectomy, repair of incarcerated parastomal hernia and repair of incisional incarcerated hernia January 2018 by Elijah Boyer. Patient came into [facility] emergency center on January 05. CAT scan of the abdomen and pelvis with contrast revealed larger wide neck ventral wall eventration or hernia. Larger left mid abdominal spigelian hernia containing fluid filled small bowel loops. Spigelian hernia has prominent small bowel loops and the ventral wall eventration or hernia has dilated small bowel loops. Some additional dilated small bowel loops appear within the intraperitoneal cavity. 2 sites of possible adhesions noted. Chest x-ray reveals no acute pulmonary process, NG tube high in the thorax, hiatal hernia. Patient was admitted to general surgery service, NG tube was placed which has subsequently been removed and patient started on clear liquids. Patient states that she is tolerating clear liquids. She is complaining of severe headache which is related to caffeine withdrawal. Fioricet ordered. Patient has been on IV Zosyn. Eliquis is been on hold. Patient has been afebrile, heart rate in the 80s and 90s, pulse ox 94% on room air. WBC is 7, hemoglobin 12.5. Platelet count 186. Sodium 136 otherwise electrolytes are normal, creatinine 0.88. ALT 40. Urinalysis on 01 05 was turbid, blood large, nitrate positive, leukoesterase large, RBCs greater than 182 and WBCs greater than 182, urine culture is finalized with pansensitive E. coli. Patient states that she has not had a bowel movement for 2 days. Patient is only reaching 750 ML's on incentive spirometry. 01/09: She states that she did have a bowel movement. She still has some abdominal pain. She states she is normally on MiraLAX at home which she has been advised to continue when she is discharged. Headache is completely gone after Fioricet. Patient states that she is tolerating diet without nausea or vomiting. She's been afebrile, blood pressure 107/64, heart rate 74, pulse ox 90% on room air. Her lites are normal, creatinine 0.78. Blood sugar 142. Medication reconciliation completed with anticipated discharge home today. 01/10: Due to patient's continued abdominal pain and not able to advance diet, patient was scheduled for lysis of adhesion today. Patient is gone for surgical procedure. 01/11: Yesterday, patient underwent exploratory laparotomy, lysis of extensive adhesions, repair of incarcerated incisional hernia with mesh, partial omentectomy. Patient complains of severe abdominal pain "since surgery ended." She is not controlled with Dilaudid and general surgery added Toradol. Patient also complains of nausea without vomiting. She has Zofran available Reglan added. His been afebrile, heart rate 99, blood pressure 92/60, pulse ox 91% on 4 L nasal cannula. Patient is utilizing incentive spirometry at decreased to 500 ML's. WBC 13.8. BUN 22 and creatinine 2.03. Patient is currently on clear liquids. 01/12: Patient's abdominal pain is improved today. She has been advanced to full liquid diet. She has not had a bowel movement. He is now on oxygen at 4 L nasal cannula with pulse ox of 95%. She does complain of a cough, one dose of Bumex 1 mg IV ordered and chest x-ray. Patient states that she was up in a chair yesterday and walked to the bathroom. Otherwise vital signs are stable. He has been afebrile. Repeat blood work reveals WBC 13.2, hemoglobin 10.7, platelet count 202. Sodium 136 otherwise looked her lites are normal. BUN 25 creatinine 1.33. Blood sugar 148. AST 42, ALT 35, alkaline phosphatase 94. Chest x-ray reveals correlate for heart failure otherwise consider pneumonia. Patient is currently on Zosyn. 01/13: She is found sitting up in bed in moderate distress complaining of shortness of breath. Patient feels that she is drowning. Restoril bedside for a updraft treatment. Chest x-ray from yesterday shows correlate for CHF otherwise consider pneumonia. Patient is currently on Lovenox subcu. Patient is unable to take Lasix due to an ALLERGY. Patient denies any chest pain palpitations. No calf pain or tenderness. Patient does have 2+ pitting edema noted to bilateral lower extremities. Bumex 1 mg IV push given. Venous Dopplers ordered. If venous Dopplers are positive patiently worked up for pulmonary embolism including a CTA of the chest. 01/14: Patient has no complaints of shortness of breath today. However she did continue to have shortness of breath yesterday he she was given a additional dose of Bumex. Her venous Dopplers were negative for DVT bilaterally. She also had a chest CTA which was negative for PE. We will continue with a diuretic twice a day. Patient continues to have 1+ pitting edema bilateral lower extremities. Diet has been increased to a regular diet and patient is tolera ting well. We will consult pulmonology related to the shortness of breath. Patient has not had a bowel movement. 01/15: Patient states that her breathing is better from yesterday, consult was added for pulmonary medicine. PE has been ruled out by ultrasound and CTA. Patient is status post Bumex. Discussed discharge planning with the patient and she has a friend who will stay with her for 3 nights after discharge. She is having some mid abdominal pain and medications for pain or being switched to oral. She was 10: The patient is reaching 750 ML's on incentive spirometry. Pulse ox is 96% on 4 L. She's been afebrile, heart rate 84-102, blood pressure 119/67. Repeat blood work reveals WBC 7.8, hemoglobin 10, platelet count 316. CO2 is 31. BUN 25 and creatinine 0.95. The patient is still complaining of shortness of breath possibly related to diastolic heart failure. Echocardiogram ordered and Bumex increased to 1 mg IV twice daily. Echocardiogram is been ordered. Patient is also wearing an abdominal binder which may be interfering with her lung capacity. She states she has not had a bowel movement since surgery. She is currently on a regular diet and tolerating. Patient is requesting influenza vaccine prior to discharge which can be arranged. Patient will be transitioned to eliquis and Lovenox discontinued today. 01/17: She is breathing status is stable although she does have shortness of breath with minimal activity. She had a bowel movement and abdomen is feeling better, pain is improved. She states she was up in a chair all day yesterday but continues to feel quite weak and is requesting subacute rehab. Patient requested [facility] however her insurance is not accepted [facility] and now social service agency director is looking at [facility] for discharge. Medication reconciliation has been completed for discharged from medicine. Patient has been afebrile, heart rate in the 80s, blood pressure 113/61, pulse ox 96% on 3 L nasal cannula. Repeat coronavirus PCR not detected. Patient is cleared from medicine for discharge today. 01/18: Patient states that her breathing status is stable and she is pulse ox 90% on 2 L nasal cannula. She's been afebrile, heart rate in the 70s and 80s, blood pressure 101/65. She continues to have some lower extremity edema and patient will be discharged on Bumex to continue for 1 week at twice daily and then once daily. Urine culture has been finalized with E. coli. Patient has completed course of antibiotics to cover this. Patient states that she is scheduled for discharge to [facility] today. She has had a bowel movement. Medication reconciliation has been reviewed. REVIEW OF SYSTEMS Constitutional: No fever, no chills, no night sweats. No weight change. No weakness, fatigue or lethargy. No daytime sleepiness. EENT: No headache. No blurred vision or double vision, no loss of vision. No loss of Hearing, no ringing in the ears, no dizziness. No nasal drainage or congestion. No epistaxis. No sore throat. Lungs: Denies shortness of breath, reports cough, no sputum production. No wheezing. Cardiovascular: No chest pain, no lower extremity edema. No palpitations. No paroxysmal nocturnal dyspnea. No orthopnea. No lightheadedness or dizziness. No syncopal episodes. Abdominal: Reports abdominal pain improved. Denies nausea, no vomiting. No diarrhea. Denies constipation, no bowel movement. No bloody or tarry stools reports loss of appetite. Genitourinary: No dysuria, increased frequency, urgency. No urinary retention. Musculoskeletal: No myalgias. Past muscle weakness, no gait dysfunction, no frequent falls. No back pain. No neck pain. Integumentary: No wounds, no lesions. No rash or pruritus. No unusual bruising. No change in hair or nails. Neurologic: No aphasia. No facial droop. No change in mentation. No head injury. No headache. No paralysis. No paresthesia. Psychiatric: No depression. No anxiety. No mood swings. Endocrine: No abnormal blood sugars. No weight change. PHYSICAL EXAMINATION Gen: This is a obese 70-year-old female. Patient is resting in bed and appears to be comfortable and in no acute distress. HEENT: Head is atraumatic, normocephalic. Pupils equal, round. Sclerae is anicteric. NECK: Supple. No JVD. No lymphadenopathy. No thyromegaly. LUNGS: Scattered rhonchi, diminished at the bases. No intercostal retractions. HEART: Regular rate and rhythm. No murmur. ABDOMEN: Soft. Bowel sounds are present. No masses. Generalized tenderness. Abdominal binder in place. EXTREMITIES: No pedal edema. No calf tenderness. Dorsalis pedis +2 bilaterally. NEUROLOGICAL: Patient is awake, alert and oriented x3. Cranial nerves 2 through 12 are grossly intact. ASSESSMENT AND PLAN 1. Small bowel obstruction secondary to left mid abdominal spigelian hernia and ventral hernia and possible adhesions. Status post exploratory laparotomy, lysis of extensive adhesions, repair of incarcerated incisional hernia with mesh, partial omentectomy. Continue [place], Toradol for pain control, patient completed course of antibiotics. 2. New onset of dyspnea secondary to fluid overload, rule out acute diastolic heart failure. Bumex 1 mg IV twice daily we'll change to oral for the mcc, monitor I&O and daily weights, echocardiogram ordered. Workup for pul monary embolism negative. Pulmonary consult appreciated. 3. Moderate intermittent asthma. Continue prednisone 5 mg daily, Symbicort 2 puffs twice daily, albuterol nebulizer treatment 3 times daily as needed, Singulair 10 mg at bedtime. 4. Headache secondary to caffeine withdrawal, resolved. Fioricet ordered. 5. Paroxysmal atrial fibrillation. Resume eliquis. Continue flecainid 50 mg twice daily,. 6. Fluid overload secondary to IV fluids. 7. History of compression fracture, stable.. 8. Gastroesophageal reflux disease. Continue Protonix 9. Acute kidney injury. IV fluids discontinued. 10. DVT prophylaxis. SCDs. Resume eliquis once cleared by general surgery. DISCHARGE PLAN [facility]. Impression and plan of care have been directed as dictated by the signing physician. Sue Castro nurse practitioner acting as scribe for signing physician. Objective - Vital Signs Vital signs: Vital Signs Temp 97.7 F 01/18/21 04:46 Pulse 89 01/18/21 08:10 Resp 18 01/18/21 04:46 BP 162/70 01/18/21 08:10 Pulse Ox 98 01/18/21 07:30 Intake & Output 01/17/21 01/18/21 01/18/21 18:59 06:59 18:59 Intake Total 540 Output Total 75 340 Balance 465 -340 Weight 84 kg Intake: Oral 540 Output: Drainage 75 40 Right Abdomen 75 40 Urine 300 Other: Voiding Method Toilet Toilet # Voids 1 5 # Bowel Movements 1 1 - Labs CBC & Chem 7: 01/16/21 05:52 01/16/21 05:52
--- NOTE | 2021-01-22 13:51 | CDI ---
Documentation Clarification Form Date: 01/22/2021 01:31:38 PM From: Zulay Grissom RN CCDS Admit Date: 01/05/2021 11:26:00 AM Patient Name: Angelique Boyle Visit Number: [id number] Discharge Date: 01/18/2021 02:41:00 PM ATTENTION: The Clinical Documentation Specialists (CDI) and [facility] Coding Staff appreciate your assistance in clarifying documentation. Please respond to the clarification below the line at the bottom and electronically sign. The CDI & [facility] Coding staff will review the response and follow-up if needed. Please note: Queries are made part of the Legal Health Record. If you have any questions, please contact the author of this message via ITS. Dr. Lucio Boyer There is documentation of pleural cavity, 01/10, procedure note. Additional clarification is requested. History/Risk Factors: 70-year-old female presents to the ED with upper and mid abdominal pain that came on suddenly with nausea and vomiting. Medical History: Bowel obstruction, abdominal wall hernia, GERD and renal disease. H&P 01/17 Clinical Indicators: Pre-Operative Diagnosis: Incarcerated incisional hernia Post-Operative Diagnosis: Incarcerated incisional hernia, Extensive adhesions. Procedure: Exposure laparotomy; Lysis of extensive adhesions; Repair of incarcerated incisional hernia with mesh and Partial omentectomy. Procedure note 01/10 The hernia sac was opened. There were extensive adhesions in the pleural cavity. Treatment: 01/10 Lysis of adhesions. To ensure accurate coding of this record can you please clarify the documentation of pleural cavity? [ x ] Peritoneal cavity [ ] Pleural cavity [ ] Other, please specify [ ] Unable to determine (Template Last Revised: June 2020) MTDD
== END 2021-01-18 14:41 | DRG 336 ==
LOC: EC 09:01 → 5NMEDONC 11:26
PROVIDERS: ADMIT Surgery; ATTEND Surgery
PROC: 0D9670Z Drainage of Stomach with Drainage Device, Via Natural or Artificial Opening (ICD-10-PCS; 2021-01-05)
PROC: 0DBU0ZZ Excision of Omentum, Open Approach (ICD-10-PCS; principal; 2021-01-10 09:25)
PROC: 0DNW0ZZ Release Peritoneum, Open Approach (ICD-10-PCS; principal; 2021-01-10 09:25)
PROC: 0WUF0JZ Supplement Abdominal Wall with Synthetic Substitute, Open Approach (ICD-10-PCS; principal; 2021-01-10 09:25)
DX: K43.0 Incisional hernia with obstruction, without gangrene (principal); N17.9 Acute kidney failure, unspecified; N39.0 Urinary tract infection, site not specified; F15.93 Other stimulant use, unspecified with withdrawal; K56.600 Partial intestinal obstruction, unspecified as to cause; M48.56XA Collapsed vertebra, not elsewhere classified, lumbar region, initial encounter for fracture; M48.54XA Collapsed vertebra, not elsewhere classified, thoracic region, initial encounter for fracture; J94.8 Other specified pleural conditions; K66.0 Peritoneal adhesions (postprocedural) (postinfection); K57.90 Diverticulosis of intestine, part unspecified, without perforation or abscess without bleeding; J45.20 Mild intermittent asthma, uncomplicated; B96.20 Unspecified Escherichia coli [E. coli] as the cause of diseases classified elsewhere; E87.6 Hypokalemia; R51.9 Headache, unspecified; I48.0 Paroxysmal atrial fibrillation; I11.0 Hypertensive heart disease with heart failure; I50.9 Heart failure, unspecified; J44.9 Chronic obstructive pulmonary disease, unspecified; K21.9 Gastro-esophageal reflux disease without esophagitis; M81.0 Age-related osteoporosis without current pathological fracture; Z20.822 Contact with and (suspected) exposure to COVID-19; Z99.81 Dependence on supplemental oxygen; Z85.828 Personal history of other malignant neoplasm of skin; R09.02 Hypoxemia; Z79.01 Long term (current) use of anticoagulants; Z79.51 Long term (current) use of inhaled steroids; Z79.899 Other long term (current) drug therapy; Z80.0 Family history of malignant neoplasm of digestive organs; Z82.5 Family history of asthma and other chronic lower respiratory diseases; Z90.49 Acquired absence of other specified parts of digestive tract; Z90.81 Acquired absence of spleen; Z60.2 Problems related to living alone; Z98.42 Cataract extraction status, left eye; Z98.890 Other specified postprocedural states; Z87.440 Personal history of urinary (tract) infections
CPT/HCPCS: 36415; 71045; 71275; 74176; 80048; 80053; 81001; 82150; 83605; 83690; 85025; 85027; 87077; 87086; 87186; 87635; 88302; 93306; 93970; 94640; 94760; 96374; 96375; 99285

== ENCOUNTER → 2021-06-21 | Outpatient (CLI) | payer MEDICARE ==
[2021-06-22 18:56] LABS: Clam IgE <0.10 kU/L; Codfish IgE <0.10 kU/L; Egg White IgE <0.10 kU/L; Peanut IgE <0.10 kU/L; Scallop IgE <0.10 kU/L; Shrimp IgE <0.10 kU/L; Soybean IgE <0.10 kU/L; Walnut IgE (Food) <0.10 kU/L
[2021-06-22 20:33] LABS: Alternaria alternata IgE <0.10 kU/L; Aspergillus fumagatus IgE <0.10 kU/L; Birch IgE <0.10 kU/L; Cat Epith & Dander IgE <0.10 kU/L; Cladosporian herbarum IgE <0.10 kU/L; Cockroach IgE <0.10 kU/L; Dog Dander IgE 0.11 kU/L; Elm IgE <0.10 kU/L; Maple (Box Elder) IgE <0.10 kU/L; Oak IgE <0.10 kU/L; Ragweed,Common IgE <0.10 kU/L; Red Top (Bentgrass) IgE <0.10 kU/L
== END | disposition home or self-care (01) ==
LOC: LABWHC1 11:51
PROVIDERS: ATTEND Internal Medicine Critical Care Medicine
DX: J45.909 Unspecified asthma, uncomplicated (principal)
CPT/HCPCS: 36415; 82785; 85008; 86003

== ENCOUNTER 2021-10-28 12:41 | Inpatient (IN) | payer MEDICARE ==
[2021-10-28] MEDS ORDERED: MAGNESIUM SULFATE-D5W PMX 1 GM in DEXTROSE/WATER 1 100ML.BAG IVPB STA (13:12)
[2021-10-28] MEDS ORDERED: methylPREDNISolone SOD SUCCI 125 MG/2 ML VIAL IV STA (13:12)
[2021-10-28] MEDS ORDERED: IPRATROPIUM-ALBUTEROL 3 ML NEB INHALATION STA ×2 (13:12→13:13)
[2021-10-28] MEDS ORDERED: ASPIRIN 81 MG PO STA (13:13)
--- NOTE | 2021-10-28 13:13 | ED ---
General Adult HPI - General Chief complaint: Shortness of Breath Stated complaint: DAVID Time Seen by Provider: 10/28/21 12:48 Source: patient, RN notes reviewed, old records reviewed Mode of arrival: wheelchair Limitations: no limitations - History of Present Illness Initial comments: She is a 71-year-old female with past medical history remarkable for chronic asthma on 4 L nasal cannula oxygen at home, atrial fibrillation, heart failure not on diuretics who presents emergency Department complaining of worsening dyspnea over the last 2 weeks. Does have a history of somewhat chronic lower extremity edema. States she has been breathing more quickly over the last few weeks. Has had a nonproductive cough. Endorses rhinorrhea. Was vaccinated for Covid as well as influenza. Recently followed up with her e commerce director, Dr. Gallardo who found him pulmonary testing that her lung function has decreased significantly, which prompted him to put her on oxygen. Baseline is on 20 mg of prednisone at home. Recently completed a course of increased steroids at home which made her feel better, however states she's felt worsens. Stop taking her Keflex at home as it was causing her diarrhea. Endorses intermittent chest discomfort that is difficult to describe. No current chest discomfort. Denies abdominal pain, nausea, vomiting. His no other acute complaints at this time. Is on a blood thinning medication and has not missed any doses presents for further evaluation at this time. - Related Data Home Medications Medication Instructions Recorded Confirmed Albuterol Nebulized [Ventolin 2.5 mg INHALATION RT-QID PRN 07/22/16 10/28/21 Nebulized] Albuterol Sulfate [Proventil Hfa] 2 puff INHALATION RT-QID PRN 07/22/16 10/28/21 Budesonide/Formoterol Fumarate 2 puff INHALATION RT-BID 07/22/16 10/28/21 [Symbicort 160-4.5 Mcg Inhaler] Montelukast [Singulair] 10 mg PO HS 07/22/16 10/28/21 Flecainide [Tambocor] 50 mg PO BID 01/19/18 10/28/21 Folic Acid 1 mg PO DAILY 01/19/18 10/28/21 Apixaban [Eliquis] 5 mg PO BID 05/25/18 10/28/21 dilTIAZem HCL [Cartia Xt] 180 mg PO DAILY 05/25/18 10/28/21 Calcium/Vitamin D Chewable 1 tab PO DAILY 01/05/21 10/28/21 D-Mannose 1,400 mg PO DAILY 01/05/21 10/28/21 Fennel Tea 1 dose PO DAILY PRN 01/05/21 10/28/21 Magnesium Oxide [Mag-Ox] 400 mg PO DAILY 01/05/21 10/28/21 Calcitonin Nasal [Fortical 1 spray NASAL DAILY 10/28/21 10/28/21 (Miacalcin)] Cholecalciferol [Vitamin D3 (25 25 mcg PO DAILY 10/28/21 10/28/21 Mcg = 1000 Iu)] Docusate [Colace] 100 mg PO BID PRN 10/28/21 10/28/21 Fluticasone Nasal [place] [Flonase 2 spr EA NOSTRIL DAILY 10/28/21 10/28/21 Nasal [place]] Umeclidinium [place] [Incruse 1 puff INHALATION RT-DAILY 10/28/21 10/28/21 Ellipta] Vitamin E (Dl,Tocopheryl Acet) 400 unit PO DAILY 10/28/21 10/28/21 [Vitamin E (400 Iu = 180 mg)] predniSONE 20 mg PO DAILY 10/28/21 10/28/21 Allergies Allergy/AdvReac Type Severity Reaction Status Date / Time furosemide [From Lasix] Allergy Rash/Hives(patient Verified 10/28/21 15:17 has had since without reaction-10/28/21) cephalexin [From Keflex] AdvReac Diarrhea Verified 10/28/21 15:35 morphine AdvReac Hallucinati Verified 10/28/21 15:17 ons/Agitati on Review of Systems ROS Statement: Those systems with pertinent positive or pertinent negative responses have been documented in the HPI. Review of Systems: CONST: Denies fever EYES: Denies blurry vision ENT: Endorses nasal congestion C/V: Denies Chest pain RESP: Endorses shortness of breath GI: Denies abdominal pain : Denies dysuria SKIN: Denies rash. MSK: Denies joint pain. NEURO: Denies headache ROS Other: All systems not noted in ROS Statement are negative. Past Medical History Past Medical History: Atrial Fibrillation, Asthma, Cancer, Heart Failure, COPD, GERD/Reflux, Renal Disease, Respiratory Disorder Additional Past Medical History / Comment(s): Past diverticular perforation with surgery/colostomy with eventual reversal, bowel obstruction, home oxygen at HS 2L/NC, compression fractures T7 and T12 and L2 spine, chronic low back pain, osteoporosis, UTIs, sepsis, kidney stone, anemia, skin cancer with removal. History of Any Multi-Drug Resistant Organisms: None Reported Past Surgical History: Appendectomy, Bowel Resection, Cholecystectomy Additional Past Surgical History / Comment(s): Colonoscopies, bowel resection d/t perforation with colostomy, attempted colostomy reversal then exploratory lap with extensive lysis of adhesions, reversal of colostomy/repair of per istomal and incisional hernia/take down splenic flexure and partial omenectomy/spleenectomy, L eye cataract removed and repair of macular hole, cystoscopy-retrograde pyeloureterogram with stone removal, skin cancer removal. Past Anesthesia/Blood Transfusion Reactions: No Reported Reaction Past Psychological History: No Psychological Hx Reported Smoking Status: Never smoker Past Alcohol Use History: None Reported Past Drug Use History: None Reported - Past Family History Mother Family Medical History: Cancer Additional Family Medical History / Comment(s): COLON CANCER Father Family Medical History: Cancer Additional Family Medical History / Comment(s): stomach CA at age 95 Brother(s) Family Medical History: No Reported History Son(s) Family Medical History: No Reported History General Exam - General Exam Comments Initial Comments: General: Appears in no acute distress. HEAD: Normal with no signs of head trauma. EYES: PERRLA, EOMI, conjunctiva normal, no discharge. ENT: Hearing grossly intact, normal oropharynx. RESPIRATORY: Bilateral end expiratory wheezes. Saturating normally on 4 L nasal cannula. No increased work of breathing. C/V: Regular rate and rhythm. S1 and S2 auscultated, 2+ pitting edema in bilateral lower extremities, peripheral pulses 2+ and intact throughout ABD: Abd is soft, nontender, nondistended EXT: Normal range of motion, no obvious deformity SKIN: No rashes or lesions observed on exposed skin. NEURO: Alert and oriented 4. No focal deficits. Limitations: no limitations Course Vital Signs 10/28/21 10/28/21 10/28/21 12:43 13:02 14:15 Temperature 98 F Pulse Rate 91 89 88 Pulse Rate [ Pulse Oximetery ] Respiratory 18 22 Rate Blood Pressure 133/68 138/72 Blood Pressure [Left Arm] O2 Sat by Pulse 96 98 Oximetry 10/28/21 10/28/21 10/28/21 16:32 16:42 17:12 Temperature 97.8 F 97.3 F L 98.1 F Pulse Rate 92 90 86 Pulse Rate [ Pulse Oximetery ] Respiratory 16 20 20 Rate Blood Pressure 135/72 148/82 145/76 Blood Pressure [Left Arm] O2 Sat by Pulse 95 96 95 Oximetry 10/28/21 10/28/21 10/28/21 17:50 18:55 19:50 Temperature 97.5 F L 97.8 F Pulse Rate 92 Pulse Rate [ 95 Pulse Oximetery ] Respiratory 22 22 20 Rate Blood Pressure 127/74 Blood Pressure 149/85 [Left Arm] O2 Sat by Pulse 97 92 L Oximetry 10/28/21 10/28/21 19:51 20:05 Temperature 97.8 F Pulse Rate 95 Pulse Rate [ 92 Pulse Oximetery ] Respiratory 20 Rate Blood Pressure Blood Pressure 127/74 [Left Arm] O2 Sat by Pulse 92 L Oximetry Medical Decision Making - Medical Decision Making Abdomen the patient's presentation and physical exam, I'm concerned for croup on etiology for her current symptoms. Cannot rule out breakthrough cases of Covid or flu. We'll obtain chest x-ray, viral swabs, in addition to cardiac workup. Patient be treated for asthma at this time with DuoNeb nebs, IV methylprednisolone, as well as magnesium. She was in agreement this plan. We'll continue her home nasal cannula. Will be given an aspirin empirically. Vital signs are within normal limits. EKG showed no signs of acute ischemia. Chest x-ray was concerning for mild pulmonary vascular congestion's and mild CHF. There are trace studies are remarkable for a normocytic anemia with a hemoglobin of 6.7, with her baseline typically being anywhere from 8-10 over the last 4 years. Troponins undetected. BNP is elevated for her age to 1100. Occult blood was done with a rectal exam in the presence of a staff member. Rectal exam unremarkable. No gross blood. Occult blood is negative. Patient's covid and Flu negative. On reevaluation, wheezing does appear somewhat improved. I did discuss with her the results of her laboratory studies and imaging. She expressed understanding. Would like to transfuse her blood which she consented to. She'll be given 1 unit. She'll be admitted for further monitoring. Uncertain the cause of her anemia, could be related to chronic disease. No signs of GI bleeding at this time. Vital signs remain within normal limits. Spoke with the admitting physician, Dr. Mcmillan who admits for Dr. Lopez was in agreement with the plan. Cardiology was consulted. Echo and troponins were ordered. Patient will be started on Lasix, despite having a prior rash was on it afterwards for an extended period of time and she does not believe she is actually ALLERGIC to it. I consulted surgery, Dr. Boyer for her anemia. He was in agreement with the plan. We will continue to monitor her CBCs overnight. I also consulted patient's e commerce director Dr. Gallardo. We'll continue IV steroids. We will continue breathing treatments. - Lab Data Result diagrams: 10/28/21 13:26 10/28/21 13:26 Lab Results 10/28/21 10/28/21 10/28/21 Range/Units 13:26 13:26 13:26 WBC 10.4 (3.8-10.6) k/uL RBC 3.02 L (3.80-5.40) m/uL Hgb 6.7 L* (11.4-16.0) gm/dL Hct 25.5 L (34.0-46.0) % MCV 84.2 (80.0-100.0) fL MCH 22.2 L (25.0-35.0) pg MCHC 26.4 L (31.0-37.0) g/dL RDW 17.7 H (11.5-15.5) % Plt Count 314 (150-450) k/uL MPV 7.6 Neutrophils % (Manual) 94 % Lymphocytes % (Manual) 4 % Monocytes % (Manual) 2 % Eosinophils % (Manual) 1 % Myelocytes % 1 % Neutrophils # (Manual) 9.78 H (1.3-7.7) k/uL Lymphocytes # (Manual) 0.42 L (1.0-4.8) k/uL Monocytes # (Manual) 0.21 (0-1.0) k/uL Eosinophils # (Manual) 0.10 (0-0.7) k/uL Myelocytes # (Manual) 0.10 H (0) k/uL Nucleated RBCs 3 H (0-0) /100 WBC Manual Slide Review Performed Polychromasia Present Hypochromasia Marked Poikilocytosis Slight Anisocytosis Slight Spherocytes Present Target Cells Present Fragmented RBCs Present PT 10.0 (9.0-12.0) sec INR 0.9 (<1.2) APTT 26.6 (22.0-30.0) sec Sodium 139 (137-145) mmol/L Potassium 4.6 (3.5-5.1) mmol/L Chloride 107 (98-107) mmol/L Carbon Dioxide 27 (22-30) mmol/L Anion Gap 5 mmol/L BUN 21 H (7-17) mg/dL Creatinine 0.90 (0.52-1.04) mg/dL Est GFR (CKD-EPI)AfAm 75 (>60 ml/min/1.73 sqM) Est GFR (CKD-EPI)NonAf 65 (>60 ml/min/1.73 sqM) Glucose 112 H (74-99) mg/dL Calcium 8.5 (8.4-10.2) mg/dL Magnesium 2.0 (1.6-2.3) mg/dL Total Bilirubin 0.2 (0.2-1.3) mg/dL AST 28 (14-36) U/L ALT 22 (4-34) U/L Alkaline Phosphatase 115 (38-126) U/L Troponin I (0.000-0.034) ng/mL NT-Pro-B Natriuret Pep pg/mL Total Protein 6.5 (6.3-8.2) g/dL Albumin 3.8 (3.5-5.0) g/dL Stool Occult Blood (Negative) Coronavirus (PCR) (Not Detectd) Influenza Type A RNA (Not Detectd) Influenza Type B (PCR) (Not Detectd) Blood Type Blood Type Recheck Bld Type Recheck Status Antibody Screen Crossmatch Spec Expiration Date 10/28/21 10/28/21 10/28/21 Range/Units 13:26 13:26 13:26 WBC (3.8-10.6) k/uL RBC (3.80-5.40) m/uL Hgb (11.4-16.0) gm/dL Hct (34.0-46.0) % MCV (80.0-100.0) fL MCH (25.0-35.0) pg MCHC (31.0-37.0) g/dL RDW (11.5-15.5) % Plt Count (150-450) k/uL MPV Neutrophils % (Manual) % Lymphocytes % (Manual) % Monocytes % (Manual) % Eosinophils % (Manual) % Myelocytes % % Neutrophils # (Manual) (1.3-7.7) k/uL Lymphocytes # (Manual) (1.0-4.8) k/uL Monocytes # (Manual) (0-1.0) k/uL Eosinophils # (Manual) (0-0.7) k/uL Myelocytes # (Manual) (0) k/uL Nucleated RBCs (0-0) /100 WBC Manual Slide Review Polychromasia Hypochromasia Poikilocytosis Anisocytosis Spherocytes Target Cells Fragmented RBCs PT (9.0-12.0) sec INR (<1.2) APTT (22.0-30.0) sec Sodium (137-145) mmol/L Potassium (3.5-5.1) mmol/L Chloride (98-107) mmol/L Carbon Dioxide (22-30) mmol/L Anion Gap mmol/L BUN (7-17) mg/dL Creatinine (0.52-1.04) mg/dL Est GFR (CKD-EPI)AfAm (>60 ml/min/1.73 sqM) Est GFR (CKD-EPI)NonAf (>60 ml/min/1.73 sqM) Glucose (74-99) mg/dL Calcium (8.4-10.2) mg/dL Magnesium (1.6-2.3) mg/dL Total Bilirubin (0.2-1.3) mg/dL AST (14-36) U/L ALT (4-34) U/L Alkaline Phosphatase (38-126) U/L Troponin I <0.012 (0.000-0.034) ng/mL NT-Pro-B Natriuret Pep 1140 pg/mL Total Protein (6.3-8.2) g/dL Albumin (3.5-5.0) g/dL Stool Occult Blood (Negative) Coronavirus (PCR) (Not Detectd) Influenza Type A RNA Not Detected (Not Detectd) Influenza Type B (PCR) Not Detected (Not Detectd) Blood Type Blood Type Recheck Bld Type Recheck Status Antibody Screen Crossmatch Spec Expiration Date 10/28/21 10/28/21 10/28/21 Range/Units 13:26 14:13 14:34 WBC (3.8-10.6) k/uL RBC (3.80-5.40) m/uL Hgb (11.4-16.0) gm/dL Hct (34.0-46.0) % MCV (80.0-100.0) fL MCH (25.0-35.0) pg MCHC (31.0-37.0) g/dL RDW (11.5-15.5) % Plt Count (150-450) k/uL MPV Neutrophils % (Manual) % Lymphocytes % (Manual) % Monocytes % (Manual) % Eosinophils % (Manual) % Myelocytes % % Neutrophils # (Manual) (1.3-7.7) k/uL Lymphocytes # (Manual) (1.0-4.8) k/uL Monocytes # (Manual) (0-1.0) k/uL Eosinophils # (Manual) (0-0.7) k/uL Myelocytes # (Manual) (0) k/uL Nucleated RBCs (0-0) /100 WBC Manual Slide Review Polychromasia Hypochromasia Poikilocytosis Anisocytosis Spherocytes Target Cells Fragmented RBCs PT (9.0-12.0) sec INR (<1.2) APTT (22.0-30.0) sec Sodium (137-145) mmol/L Potassium (3.5-5.1) mmol/L Chloride (98-107) mmol/L Carbon Dioxide (22-30) mmol/L Anion Gap mmol/L BUN (7-17) mg/dL Creatinine (0.52-1.04) mg/dL Est GFR (CKD-EPI)AfAm (>60 ml/min/1.73 sqM) Est GFR (CKD-EPI)NonAf (>60 ml/min/1.73 sqM) Glucose (74-99) mg/dL Calcium (8.4-10.2) mg/dL Magnesium (1.6-2.3) mg/dL Total Bilirubin (0.2-1.3) mg/dL AST (14-36) U/L ALT (4-34) U/L Alkaline Phosphatase (38-126) U/L Troponin I (0.000-0.034) ng/mL NT-Pro-B Natriuret Pep pg/mL Total Protein (6.3-8.2) g/dL Albumin (3.5-5.0) g/dL Stool Occult Blood Negative (Negative) Coronavirus (PCR) Not Detected (Not Detectd) Influenza Type A RNA (Not Detectd) Influenza Type B (PCR) (Not Detectd) Blood Type O Positive Blood Type Recheck O Pos Bld Type Recheck Status No Antibody Screen NEGATIVE Crossmatch See Detail Spec Expiration Date 10/31/20212333 - EKG Data -: EKG Interpreted by Me EKG Comments: 12-lead Electrocardiogram Interpretation Note EKG was reviewed and interpreted by myself. 12-lead ECG performed at 1252 is interpreted by me as revealing normal sinus rhythm at a rate of 84 beats per minute. [place] is normal. IA intervals 164 ms, QRS duration is 90 ms, QTc is 386 seconds.. There were no ST or T wave abnormalities to suggest myocardial ischemia or injury. R wave progression across the precordium was satisfactory. By my interpretation this EKG is non-diagnostic for acute ischemia. Disposition Clinical Impression: Volume overload, Asthma, Anemia of unknown etiology, History of atrial fibrillation Disposition: ADMITTED IP TO THIS HOSP Condition: Stable Time of Disposition: 15:15
[2021-10-28 13:54] LABS: Anisocytosis Slight; HCT 25.5 % (34.0-46.0); Hypochromasia Marked; INR 0.9 (<1.2); MCH 22.2 pg (25.0-35.0); MCHC 26.4 g/dL (31.0-37.0); MCV 84.2 fL (80.0-100.0); Mean Platelet Volume 7.6; Partial Thromboplastin Time 26.6 sec (22.0-30.0); Platelet Count 314 k/uL (150-450); Poikilocytosis Slight; RBC 3.02 m/uL (3.80-5.40); RDW 17.7 % (11.5-15.5)
[2021-10-28 13:55] LABS: Albumin 3.8 g/dL (3.5-5.0); Calcium 8.5 mg/dL (8.4-10.2); Potassium 4.6 mmol/L (3.5-5.1); Total Bilirubin 0.2 mg/dL (0.2-1.3); Total Protein 6.5 g/dL (6.3-8.2)
[2021-10-28 13:56] LABS: HGB 6.7 gm/dL (11.4-16.0)
--- NOTE | 2021-10-28 14:05 | XR ---
EXAMINATION TYPE: XR chest 2V DATE OF EXAM: 10/28/2021 1:53 PM COMPARISON: Chest radiographs from 01/12/2021, CTA chest 01/13/2021. TECHNIQUE: XR chest 2V Frontal and lateral views of the chest. CLINICAL INDICATION:Female, 71 years old with history of difficulty breathing; FINDINGS: Lungs/Pleura: No pneumothorax or pleural effusion. Flattening of the hemidiaphragms. Pulmonary vascularity: Pulmonary vascular congestion. Heart/mediastinum: Cardiomediastinal silhouette is enlarged and stable. Musculoskeletal: No acute osseous pathology. Redemonstration of thoracic compression deformities with increased kyphosis. IMPRESSION: Cardiomegaly and mild pulmonary vascular congestion. Correlate with BNP for congestive heart failure. Superimposed infectious process is not excluded.
[2021-10-28 14:24] LABS: Lymphocytes # (M) 0.42 k/uL (1.0-4.8); Monocytes # (M) 0.21 k/uL (0-1.0); Myelocytes % 1 %; Neutrophils # (M) 9.78 k/uL (1.3-7.7); Neutrophils % (M) 94 %; Nucleated Red Blood Cells 3 /100 WBC (0-0); Total Cells Counted 200; WBC 10.4 k/uL (3.8-10.6)
[2021-10-28 14:25] LABS: Polychromasia Present; RBC Fragments Present; Spherocytes Present; Target Cells Present
[2021-10-28] MEDS ORDERED: SYMBICORT 160-4.5 MCG INHALER INHALATION STA (14:25)
[2021-10-28] MEDS ORDERED: NALOXONE 0.4 MG/ML 1 ML VIAL IV PRN (15:17)
[2021-10-28] MEDS ORDERED: FUROSEMIDE 10 MG/ML 4 ML VIAL IV STA (15:21)
[2021-10-28] MEDS ORDERED: PANTOPRAZOLE 40 MG/10 ML VIAL IVP STA (15:21)
[2021-10-28] MEDS: methylPREDNISolone SOD SUCCI 40 MG/ML 1 ML VIAL IV SCH (16:36)
[2021-10-28] MEDS: IPRATROPIUM-ALBUTEROL 3 ML NEB INHALATION SCH ×2 (16:56→20:03)
[2021-10-28] MEDS ORDERED: diphenhydrAMINE 50 MG/ML 1 ML VIAL IVP PRN (17:08)
[2021-10-28] MEDS: ACETAMINOPHEN TAB 325 MG TAB PO PRN (22:36)
[2021-10-28] MEDS: FUROSEMIDE 10 MG/ML 4 ML VIAL IV SCH (22:43)
[2021-10-28 22:49] LABS: Anisocytosis Slight; HCT 27.8 % (34.0-46.0); HGB 7.8 gm/dL (11.4-16.0); Hypochromasia Marked; MCH 23.4 pg (25.0-35.0); MCHC 28.1 g/dL (31.0-37.0); MCV 83.2 fL (80.0-100.0); Mean Platelet Volume 7.4; Platelet Count 305 k/uL (150-450); Poikilocytosis Moderate; RBC 3.35 m/uL (3.80-5.40); RDW 18.2 % (11.5-15.5)
[2021-10-28 23:32] LABS: Band Neutrophils % 3 %; Neutrophils % (M) 95 %; Nucleated Red Blood Cells 7 /100 WBC (0-0); Total Cells Counted 200
[2021-10-28 23:33] LABS: Anisocytosis (M) Present; Lymphocytes # (M) 0.14 k/uL (1.0-4.8); Poikilocytosis (M) Present; Target Cells Present; WBC 6.8 k/uL (3.8-10.6)
[2021-10-29] MEDS: methylPREDNISolone SOD SUCCI 40 MG/ML 1 ML VIAL IV SCH ×4 (00:37→23:20)
[2021-10-29] MEDS: IPRATROPIUM-ALBUTEROL 3 ML NEB INHALATION PRN ×2 (00:52→04:20)
[2021-10-29] MEDS ORDERED: DILTIAZEM DRIP BOLUS FROM BAG 1 MG SOLN IV ONE ×2 (03:48→18:34)
[2021-10-29] MEDS: DILTIAZEM 125 MG in SODIUM CHLORIDE 0.9% 100 ML IV SCH ×3 (04:17→23:20)
[2021-10-29] MEDS: ACETAMINOPHEN TAB 325 MG TAB PO PRN (05:50)
[2021-10-29] MEDS: APIXABAN 5 MG TAB PO SCH ×2 (05:52→21:14)
[2021-10-29] MEDS: IPRATROPIUM-ALBUTEROL 3 ML NEB INHALATION SCH ×4 (09:25→20:46)
[2021-10-29 09:40] LABS: African American GFR (CKD) 65.6 (60.0-200.0); Anion Gap 13.8 mmol/L (10.00-18.00); Calcium 8.4 mg/dL (8.7-10.3); Carbon Dioxide 27.2 mmol/L (20.0-27.5); Non-African American GFR(CKD) 56.6 (60.0-200.0)
[2021-10-29 09:47] LABS: HCT 25.2 % (37.2-46.3); HGB 7.2 g/dL (12.0-15.0); MCH 22.2 pg (27.0-32.0); MCHC 28.6 g/dL (32.0-37.0); MCV 77.8 fL (80.0-97.0); Mean Platelet Volume 10.4 fL (9.5-12.2); NRBC Per 100 WBC 11.2 /100 WBCS (0.0-0.0); Platelet Count 321 X 10*3/uL (140-440); RBC 3.24 X 10*6/uL (4.10-5.20); RDW 19.7 % (11.5-14.5); WBC 5.45 X 10*3/uL (4.50-10.00)
[2021-10-29] MEDS: FUROSEMIDE 10 MG/ML 4 ML VIAL IV SCH ×2 (09:49→21:13)
[2021-10-29] MEDS: PANTOPRAZOLE 40 MG/10 ML VIAL IVP SCH (09:49)
[2021-10-29] MEDS ORDERED: METOPROLOL TARTRATE 25 MG TAB PO SCH (10:15)
--- NOTE | 2021-10-29 10:46 | P.CRDCN ---
History of Present Illness Consult date: 10/29/21 History of present illness: Patient has a known history of proximal atrial fibrillation, asthma requiring home oxygen, heart failure, and renal disease presented to the ER with increased shortness of breath and chronic lower extremity edema. Patient is admitted to the hospital with anemia, exacerbation of asthma, and heart failure. She follows with Dr. Tinajero in the office. We have been consult for volume overload. Patient's initial hemoglobin was 6.7 she received 1 unit of blood today she is 7.2. Last night patient went into atrial fibrillation with rapid ventricular rate. Troponins negative 3. Patient is on Eliquis for anticoagulation at home. She is on Cardizem gtt. Patient is also on flecainide at home. Will restart flecainide at 100 mg twice a day. Will not start her on a beta nena due to her long history of asthma. Chest x-ray showed cardiomegaly with mild pulmonary vascular congestion correlated for congestive heart failure. Patient had an echocardiogram in January 2021 at that time revealed a normal LV function with an EF of 55-60%, grade 2 diastolic dysfunction and mild mitral and tricuspid regurgitation. Will repeat an echocardiogram. Patient is resting comfortably in the chair in no signs of acute distress. She does report she has some mild palpitations but denies chest pain or increased shortness of breath. Patient has been transferred from the [facility] ICU and is of 3 [facility] Review of Systems REVIEW OF SYSTEMS At the time of my exam: CONSTITUTIONAL: Denies fever or chills. EYES: Negative for vision changes ENT: Negative for hearing loss CARDIOVASCULAR: Denies chest pain, shortness of breath, diaphoresis, orthopnea, PND or palpitations. VASCULAR: Denies edema RESPIRATORY: Denies cough. GASTROINTESTINAL: Denies abdominal pain, diarrhea, constipation, nausea or vomiting. MUSCULOSKELETAL: Denies myalgias. NEUROLOGIC: Denies numbness, tingling, headache or weakness. ENDOCRINE: Denies fatigue, weight change, polydipsia or polyurina. GENITOURINARY: Denies burning, hematuria or urgency with micturation. HEMATOLOGIC: Denies history of anemia or bleeding. DERMATOLOGY: Denies rash or skin sores PSYCH: Negative for depression or hallucinations. Past Medical History Past Medical History: Atrial Fibrillation, Asthma, Cancer, Heart Failure, COPD, GERD/Reflux, Renal Disease, Respiratory Disorder Additional Past Medical History / Comment(s): Past diverticular perforation with surgery/colostomy with eventual reversal, bowel obstruction, home oxygen at HS 2L/NC, compression fractures T7 and T12 and L2 spine, chronic low back pain, osteoporosis, UTIs, sepsis, kidney stone, anemia, skin cancer with removal. History of Any Multi-Drug Resistant Organisms: None Reported Past Surgical History: Appendectomy, Bowel Resection, Cholecystectomy Additional Past Surgical History / Comment(s): Colonoscopies, bowel resection d/t perforation with colostomy, attempted colostomy reversal then exploratory lap with extensive lysis of adhesions, reversal of colostomy/repair of peristomal and incisional hernia/take down splenic flexure and partial om enectomy/spleenectomy, L eye cataract removed and repair of macular hole, cystoscopy-retrograde pyeloureterogram with stone removal, skin cancer removal. Past Anesthesia/Blood Transfusion Reactions: No Reported Reaction Past Psychological History: No Psychological Hx Reported Smoking Status: Never smoker Past Alcohol Use History: None Reported Past Drug Use History: None Reported - Past Family History Mother Family Medical History: Cancer Additional Family Medical History / Comment(s): COLON CANCER Father Family Medical History: Cancer Additional Family Medical History / Comment(s): stomach CA at age 95 Brother(s) Family Medical History: No Reported History Son(s) Family Medical History: No Reported History Medications and Allergies Home Medications Medication Instructions Recorded Confirmed Type Albuterol Nebulized [Ventolin 2.5 mg INHALATION RT-QID PRN 07/22/16 10/28/21 History Nebulized] Albuterol Sulfate [Proventil Hfa] 2 puff INHALATION RT-QID PRN 07/22/16 10/28/21 History Budesonide/Formoterol Fumarate 2 puff INHALATION RT-BID 07/22/16 10/28/21 History [Symbicort 160-4.5 Mcg Inhaler] Montelukast [Singulair] 10 mg PO HS 07/22/16 10/28/21 History Flecainide [Tambocor] 50 mg PO BID 01/19/18 10/28/21 History Folic Acid 1 mg PO DAILY 01/19/18 10/28/21 History Apixaban [Eliquis] 5 mg PO BID 05/25/18 10/28/21 History dilTIAZem HCL [Cartia Xt] 180 mg PO DAILY 05/25/18 10/28/21 History Calcium/Vitamin D Chewable 1 tab PO DAILY 01/05/21 10/28/21 History D-Mannose 1,400 mg PO DAILY 01/05/21 10/28/21 History Fennel Tea 1 dose PO DAILY PRN 01/05/21 10/28/21 History Magnesium Oxide [Mag-Ox] 400 mg PO DAILY 01/05/21 10/28/21 History Calcitonin Nasal [Fortical 1 spray NASAL DAILY 10/28/21 10/28/21 History (Miacalcin)] Cholecalciferol [Vitamin D3 (25 25 mcg PO DAILY 10/28/21 10/28/21 History Mcg = 1000 Iu)] Docusate [Colace] 100 mg PO BID PRN 10/28/21 10/28/21 History Fluticasone Nasal [place] [Flonase 2 spr EA NOSTRIL DAILY 10/28/21 10/28/21 History Nasal Tumtum] Umeclidinium [place] [Incruse 1 puff INHALATION RT-DAILY 10/28/21 10/28/21 History Ellipta] Vitamin E (Dl,Tocopheryl Acet) 400 unit PO DAILY 10/28/21 10/28/21 History [Vitamin E (400 Iu = 180 mg)] predniSONE 20 mg PO DAILY 10/28/21 10/28/21 History Allergies Allergy/AdvReac Type Severity Reaction Status Date / Time furosemide [From Lasix] Allergy Rash/Hives(patient Verified 10/28/21 15:17 has had since without reaction-10/28/21) cephalexin [From Keflex] AdvReac Diarrhea Verified 10/28/21 15:35 morphine AdvReac Hallucinati Verified 10/28/21 15:17 ons/Agitati on Physical Exam Vitals: Vital Signs Temp Pulse Pulse Resp BP BP Pulse Ox 10/29/21 09:27 125 H 20 10/29/21 08:00 98.1 F 128 H 24 121/76 96 10/29/21 07:00 98.6 F 113 H 20 111/67 95 10/29/21 04:30 116 H 10/29/21 04:20 100 10/29/21 03:30 121/74 10/29/21 02:00 20 10/29/21 01:24 97 F L 92 18 109/61 92 L 10/29/21 01:02 80 10/29/21 00:53 82 95 10/28/21 20:19 98 10/28/21 20:05 95 10/28/21 20:00 20 10/28/21 19:51 97.8 F 92 20 127/74 92 L 10/28/21 19:50 97.8 F 92 20 127/74 92 L 10/28/21 18:55 22 10/28/21 17:50 97.5 F L 95 22 149/85 97 10/28/21 17:12 98.1 F 86 20 145/76 95 10/28/21 16:42 97.3 F L 90 20 148/82 96 10/28/21 16:32 97.8 F 92 16 135/72 95 10/28/21 14:15 88 10/28/21 13:02 89 22 138/72 98 10/28/21 12:43 98 F 91 18 133/68 96 FiO2 10/29/21 09:27 10/29/21 08:00 10/29/21 07:00 10/29/21 04:30 10/29/21 04:20 10/29/21 03:30 10/29/21 02:00 10/29/21 01:24 10/29/21 01:02 10/29/21 00:53 36 10/28/21 20:19 10/28/21 20:05 10/28/21 20:00 10/28/21 19:51 10/28/21 19:50 10/28/21 18:55 10/28/21 17:50 10/28/21 17:12 10/28/21 16:42 10/28/21 16:32 10/28/21 14:15 10/28/21 13:02 10/28/21 12:43 Intake and Output 10/28/21 10/29/21 10/29/21 22:59 06:59 14:59 Intake Total 279 6.75 Balance 279 6.75 Intake: Intake, IV Titration 6.75 Amount Diltiazem 125 mg In 6.75 Sodium Chloride 0.9% 100 ml @ 5 MG/HR 5 mls/hr IV .Q24H [facility] Rx#:[id number] Blood Product 279 Rc Pheresis As-3 Unit 279 [id number] Other: Voiding Method Toilet # Voids 2 2 # Bowel Movements 0 Weight 88.5 kg PHYSICAL EXAMINATION General: The patient is awake and alert, in no distress, and does not appear acutely ill. Skin: Skin is warm and dry and no rashes or lesions are noted. Eye: Pupils are equal, round and reactive to light, extra-ocular movements are intact; there is normal conjunctiva bilaterally. Ears, nose, mouth and throat: There are moist mucous membranes and no oral lesions. Neck: The neck is supple, there is no tenderness or JVD. Cardiovascular: There is irregular rate and rhythm. No murmur, rub or gallop is appreciated. Respiratory: Lungs are clear to auscultation, respirations are non-labored, breath sounds are equal. Gastrointestinal: Soft, non-distended, non-tender abdomen without masses or or ganomegaly noted. There is no rebound or guarding present. Bowel sounds are unremarkable. Back: There is no tenderness to palpation in the midline. There is no obvious deformity. Musculoskeletal: Normal ROM, no tenderness, There is no pedal edema. There is no calf tenderness or swelling. Extremities: negative for bilateral pitting edema Vascular: Femoral pulse is normal. Posterior tibial pulses are normal .Dorsalis pedis is palpable. Neurological: CN II-XII intact. There are no obvious motor or sensory deficits. Speech is normal. Psychiatric: Cooperative, appropriate mood & affect, normal judgment Results 10/29/21 03:54 10/29/21 03:54 Cardiac Enzymes 10/28/21 10/28/21 10/28/21 Range/Units 13:26 13:26 18:28 AST 28 (14-36) U/L Troponin I <0.012 <0.012 (0.000-0.034) ng/mL 10/28/21 Range/Units 22:16 AST (14-36) U/L Troponin I <0.012 (0.000-0.034) ng/mL Coagulation 10/28/21 Range/Units 13:26 PT 10.0 (9.0-12.0) sec APTT 26.6 (22.0-30.0) sec CBC 10/28/21 10/28/21 Range/Units 13:26 22:16 WBC 10.4 6.8 (3.8-10.6) k/uL RBC 3.02 L 3.35 L (3.80-5.40) m/uL Hgb 6.7 L* 7.8 L (11.4-16.0) gm/dL Hct 25.5 L 27.8 L (34.0-46.0) % Plt Count 314 305 (150-450) k/uL Comprehensive Metabolic Panel 10/28/21 Range/Units 13:26 Sodium 139 (137-145) mmol/L Potassium 4.6 (3.5-5.1) mmol/L Chloride 107 (98-107) mmol/L Carbon Dioxide 27 (22-30) mmol/L BUN 21 H (7-17) mg/dL Creatinine 0.90 (0.52-1.04) mg/dL Glucose 112 H (74-99) mg/dL Calcium 8.5 (8.4-10.2) mg/dL AST 28 (14-36) U/L ALT 22 (4-34) U/L Alkaline Phosphatase 115 (38-126) U/L Total Protein 6.5 (6.3-8.2) g/dL Albumin 3.8 (3.5-5.0) g/dL Current Medications Generic Name Dose Route Start Last Admin Trade Name Freq PRN Reason Stop Dose Admin Acetaminophen 650 mg 10/28/21 22:19 10/29/21 05:50 Acetaminophen Tab 325 Mg Tab PO 650 mg Q6HR PRN Administration Fever and/ or Pain Albuterol/Ipratropium 3 ml 10/28/21 16:00 10/29/21 09:25 Ipratropium-Albuterol 3 Ml Neb INHALATION 3 ml RT-QID MARGARITA Administration Albuterol/Ipratropium 3 ml 10/28/21 14:21 10/29/21 04:20 Ipratropium-Albuterol 3 Ml Neb INHALATION 3 ml Q4H PRN Administration Wheezing Apixaban 5 mg 10/29/21 09:00 10/29/21 05:52 Apixaban 5 Mg Tab PO 5 mg BID MARGARITA Administration Protocol Budesonide/Formoterol Fumarate 2 puff 10/29/21 20:00 Symbicort 160-4.5 Mcg Inhaler INHALATION RT-BID MARGARITA Diphenhydramine HCl 25 mg 10/28/21 17:08 Diphenhydramine 50 Mg/Ml 1 Ml Vial IVP Q6HR PRN Allergy Symptoms Furosemide 40 mg 10/28/21 21:00 10/28/21 22:43 Furosemide 10 Mg/Ml 4 Ml Vial IV 40 mg Q12HR MARGARITA Administration Diltiazem HCl 125 mg/ Sodium 125 mls @ 5 mls/hr 10/29/21 04:00 10/29/21 05:38 Chloride IV 7.5 mg/hr .Q24H MARGARITA 7.5 mls/hr Infusion 5 MG/HR Methylprednisolone Sodium Succinate 40 mg 10/28/21 16:00 10/29/21 00:37 Methylprednisolone Sod Succi 40 Mg/Ml 1 Ml Vial IV 40 mg Q8HR MARGARITA Administration Naloxone HCl 0.2 mg 10/28/21 15:17 Naloxone 0.4 Mg/Ml 1 Ml Vial IV Q2M PRN Opioid Reversal Pantoprazole Sodium 40 mg 10/29/21 09:00 Pantoprazole 40 Mg/10 Ml Vial IVP DAILY MARGARITA Intake and Output 10/28/21 10/29/21 10/29/21 22:59 06:59 14:59 Intake Total 279 6.75 Balance 279 6.75 Intake: Intake, IV Titration 6.75 Amount Diltiazem 125 mg In 6.75 Sodium Chloride 0.9% 100 ml @ 5 MG/HR 5 mls/hr IV .Q24H MARGARITA Rx#:[id number] Blood Product 279 Rc Pheresis As-3 Unit 279 [id number] Other: Voiding Method Toilet # Voids 2 2 # Bowel Movements 0 Weight 88.5 kg 10/28/21 22:16 10/28/21 13:26 Assessment and Plan Assessment: Proximal atrial fibrillation with RVR Acute anemia Asthma exacerbation on home oxygen Plan: Continue with Cardizem drip Start flecainide 100 mg twice a day Will not start beta nena due to history of asthma Will obtain echocardiogram Continue with telemetry monitoring Continue with strict I's and O's and daily weights Further recommendations based on clinical course The above impression and plan of care have been discussed and directed by the signing physician. Marla Hanley, nurse practitioner, acting as scribe for signing physician.
[2021-10-29 11:05] LABS: Basophils # (A) 0.01 X 10*3/uL (0.00-0.10); Basophils % (A) 0.2 %; Eosinophils # (A) 0 X 10*3/uL (0.04-0.35); Eosinophils % (A) 0 %; Immature Grans, Automated 0.6 %; Lymphocytes # (A) 0.28 X 10*3/uL (0.90-5.00); Lymphocytes % (A) 5.1 %; Monocytes # (A) 0.09 X 10*3/uL (0.20-1.00); Monocytes % (A) 1.7 %; Neutrophils # (A) 5.04 X 10*3/uL (1.80-7.70); Neutrophils % (A) 92.4 %
[2021-10-29 11:06] LABS: Hypochromasia (M) 2+; Target Cells 2+
[2021-10-29] MEDS: FLECAINIDE 50 MG TAB PO SCH ×2 (11:30→21:14)
[2021-10-29] MEDS: polyethylene glycoL 3350 17 GM POWD.PACK PO SCH (11:30)
--- NOTE | 2021-10-29 12:17 | P.CNPUL ---
History of Present Illness Consult date: 10/29/21 Reason for consult: COPD Chief complaint: Shortness of breath History of present illness: This is a 71-year-old female with history of severe persistent asthma, normally sees Dr. robertson for her severe asthma. Patient is O2 dependent, she is also prednisone dependent, maintained on 20 mg of prednisone daily for many years. Used to be on 10 mg daily until recently and the dose was increased. Patient called the office recently, and she was complaining of intermittent cough wheezing and shortness of breath, and a prescription was called in for the patient including a prednisone burst and taper, along with antibiotics. She felt better when she was on a higher dose of prednisone, however as she went back to her usual maintenance dose, patient started having more and more shortness of breath. Patient came into the ER yesterday, admitted, chest x-ray is suggestive of mild interstitial edema and small pleural effusion, she was also noted to have hemoglobin of 6.7. Patient had extremely generalized weakness and shortness of breath. Patient received a unit of packed RBCs since admission, and her hemoglobin today is up to 7.2. In addition to all of this, the patient developed atrial fibrillation with RVR, she is known to have history of paroxysmal atrial fibrillation. Patient was placed on Cardizem drip at 10 mg per hour, she is normally maintained on flecainide. And she is also on eliquis. Patient was transferred to the ICU as an overflow, she was supposed to go to a monitor bed on [facility], but no beds were available, and she is now in the ICU as an overflow. Her cardiac history is significant for history of paroxysmal atrial fibrillation, history of congestive heart failure, she does have good LV function and ejection fraction was 60%. She had a grade 2 diastolic dysfunction with mild mitral and tricuspid regurgitation. I saw the patient in the ICU, recommended increasing her Cardizem to 10 mg/h and recommended cardiac evaluation. Patient is back on her usual bronchodilators and IV Solu-Medrol. She is also on antibiotics. Review of Systems CONSTITUTIONAL: No fever no chills, no weight loss, however the patient had generalized weakness and fatigue. HEENT: Negative Pulmonary: As noted in HPI. Cardiac: As noted in HPI. GASTROINTESTINAL: Negative. MUSCULOSKELETAL: Negative NEUROLOGIC: Negative ENDOCRINE: Negative GENITOURINARY: Negative HEMATOLOGIC: Negative patient is on eliquis for paroxysmal atrial fibrillation DERMATOLOGY: Negative PSYCH: Negative Past Medical History Past Medical History: Atrial Fibrillation, Asthma, Cancer, Heart Failure, COPD, GERD/Reflux, Renal Disease, Respiratory Disorder Additional Past Medical History / Comment(s): Past diverticular perforation with surgery/colostomy with eventual reversal, bowel obstruction, home oxygen at HS 2L/NC, compression fractures T7 and T12 and L2 spine, chronic low back pain, osteoporosis, UTIs, sepsis, kidney stone, anemia, skin cancer with removal. History of Any Multi-Drug Resistant Organisms: None Reported Past Surgical History: Appendectomy, Bowel Resection, Cholecystectomy Additional Past Surgical History / Comment(s): Colonoscopies, bowel resection d/t perforation with colostomy, attempted colostomy reversal then exploratory la p with extensive lysis of adhesions, reversal of colostomy/repair of peristomal and incisional hernia/take down splenic flexure and partial omenectomy/spleenectomy, L eye cataract removed and repair of macular hole, cystoscopy-retrograde pyeloureterogram with stone removal, skin cancer removal. Past Anesthesia/Blood Transfusion Reactions: No Reported Reaction Past Psychological History: No Psychological Hx Reported Smoking Status: Never smoker Past Alcohol Use History: None Reported Past Drug Use History: None Reported - Past Family History Mother Family Medical History: Cancer Additional Family Medical History / Comment(s): COLON CANCER Father Family Medical History: Cancer Additional Family Medical History / Comment(s): stomach CA at age 95 Brother(s) Family Medical History: No Reported History Son(s) Family Medical History: No Reported History Medications and Allergies Home Medications Medication Instructions Recorded Confirmed Type Albuterol Nebulized [Ventolin 2.5 mg INHALATION RT-QID PRN 07/22/16 10/28/21 History Nebulized] Albuterol Sulfate [Proventil Hfa] 2 puff INHALATION RT-QID PRN 07/22/16 10/28/21 History Budesonide/Formoterol Fumarate 2 puff INHALATION RT-BID 07/22/16 10/28/21 History [Symbicort 160-4.5 Mcg Inhaler] Montelukast [Singulair] 10 mg PO HS 07/22/16 10/28/21 History Flecainide [Tambocor] 50 mg PO BID 01/19/18 10/28/21 History Folic Acid 1 mg PO DAILY 01/19/18 10/28/21 History Apixaban [Eliquis] 5 mg PO BID 05/25/18 10/28/21 History dilTIAZem HCL [Cartia Xt] 180 mg PO DAILY 05/25/18 10/28/21 History Calcium/Vitamin D Chewable 1 tab PO DAILY 01/05/21 10/28/21 History D-Mannose 1,400 mg PO DAILY 01/05/21 10/28/21 History Fennel Tea 1 dose PO DAILY PRN 01/05/21 10/28/21 History Magnesium Oxide [Mag-Ox] 400 mg PO DAILY 01/05/21 10/28/21 History Calcitonin Nasal [Fortical 1 spray NASAL DAILY 10/28/21 10/28/21 History (Miacalcin)] Cholecalciferol [Vitamin D3 (25 25 mcg PO DAILY 10/28/21 10/28/21 History Mcg = 1000 Iu)] Docusate [Colace] 100 mg PO BID PRN 10/28/21 10/28/21 History Fluticasone Nasal [place] [Flonase 2 spr EA NOSTRIL DAILY 10/28/21 10/28/21 History Nasal [place]] Umeclidinium [place] [Incruse 1 puff INHALATION RT-DAILY 10/28/21 10/28/21 History Ellipta] Vitamin E (Dl,Tocopheryl Acet) 400 unit PO DAILY 10/28/21 10/28/21 History [Vitamin E (400 Iu = 180 mg)] predniSONE 20 mg PO DAILY 10/28/21 10/28/21 History Allergies Allergy/AdvReac Type Severity Reaction Status Date / Time furosemide [From Lasix] Allergy Rash/Hives(patient Verified 10/28/21 15:17 has had since without reaction-10/28/21) cephalexin [From Keflex] AdvReac Diarrhea Verified 10/28/21 15:35 morphine AdvReac Hallucinati Verified 10/28/21 15:17 ons/Agitati on Physical Exam Vitals: Vital Signs Temp Pulse Pulse Resp BP BP Pulse Ox 10/29/21 11:53 130 H 10/29/21 11:43 130 H 20 10/29/21 09:37 130 H 10/29/21 09:28 97 10/29/21 09:27 125 H 20 10/29/21 08:00 98.1 F 128 H 24 121/76 96 10/29/21 07:00 98.6 F 113 H 20 111/67 95 10/29/21 04:30 116 H 10/29/21 04:20 100 10/29/21 03:30 121/74 10/29/21 02:00 20 10/29/21 01:24 97 F L 92 18 109/61 92 L 10/29/21 01:02 80 10/29/21 00:53 82 95 10/28/21 20:19 98 10/28/21 20:05 95 10/28/21 20:00 20 10/28/21 19:51 97.8 F 92 20 127/74 92 L 10/28/21 19:50 97.8 F 92 20 127/74 92 L 10/28/21 18:55 22 10/28/21 17:50 97.5 F L 95 22 149/85 97 10/28/21 17:12 98.1 F 86 20 145/76 95 10/28/21 16:42 97.3 F L 90 20 148/82 96 10/28/21 16:32 97.8 F 92 16 135/72 95 10/28/21 14:15 88 10/28/21 13:02 89 22 138/72 98 10/28/21 12:43 98 F 91 18 133/68 96 FiO2 10/29/21 11:53 10/29/21 11:43 10/29/21 09:37 10/29/21 09:28 10/29/21 09:27 10/29/21 08:00 10/29/21 07:00 10/29/21 04:30 10/29/21 04:20 10/29/21 03:30 10/29/21 02:00 10/29/21 01:24 10/29/21 01:02 10/29/21 00:53 36 10/28/21 20:19 10/28/21 20:05 10/28/21 20:00 10/28/21 19:51 10/28/21 19:50 10/28/21 18:55 10/28/21 17:50 10/28/21 17:12 10/28/21 16:42 10/28/21 16:32 10/28/21 14:15 10/28/21 13:02 10/28/21 12:43 Intake and Output 10/28/21 10/29/21 10/29/21 22:59 06:59 14:59 Intake Total 279 6.75 Balance 279 6.75 Intake: Intake, IV Titration 6.75 Amount Diltiazem 125 mg In 6.75 Sodium Chloride 0.9% 100 ml @ 5 MG/HR 5 mls/hr IV .Q24H [facility] Rx#:[id number] Blood Product 279 Rc Pheresis As-3 Unit 279 [id number] Other: Voiding Method Toilet # Voids 2 2 2 # Bowel Movements 0 Weight 88.5 kg Physical Exam: Revealed 71-year-old female in no distress, on 4 L nasal cannula and O2 saturation 96%. Head: Atraumatic, normocephalic. HEENT:[Neck is supple.] [No neck masses.] [No thyromegaly.] [No JVD.] Chest: Symmetrical chest expansion, diminished breath sound bilaterally no rhonchi and no wheezes. Cardiac Exam: Irregular irregular rhythm, 2/6 systolic murmur thought the precordium, no S3 gallop. Abdomen: [Soft, nontender, no megaly, no rebound, no guarding, normal bowel sounds.] Extremities: [No clubbing, no edema, no cyanosis.] Good pulses bilaterally. Neurological Exam: Alert oriented 3, no gross focal neurologic deficits. Psychiatric: Normal mood, affect and normal mental status exam. Skin: No rashes. Results - Laboratory Findings CBC and BMP: 10/29/21 03:54 10/29/21 03:54 PT/INR, D-dimer PT 10.0 sec (9.0-12.0) 10/28/21 13:26 INR 0.9 (<1.2) 10/28/21 13:26 Abnormal lab findings: Abnormal Labs 10/28/21 10/28/21 10/28/21 13:26 13:26 14:34 RBC 3.02 L Hgb 6.7 L* Hct 25.5 L MCV MCH 22.2 L MCHC 26.4 L RDW 17.7 H Absolute Nucleated RBC Neutrophils # (Manual) 9.78 H Lymphocytes # Lymphocytes # (Manual) 0.42 L Monocytes # Eosinophils # Myelocytes # (Manual) 0.10 H Nucleated RBCs 3 H NRBC/100 WBC Diff BUN 21 H Est GFR (CKD-EPI)NonAf BUN/Creatinine Ratio Glucose 112 H Calcium Crossmatch See Detail 10/28/21 10/29/21 10/29/21 22:16 03:54 03:54 RBC 3.35 L 3.24 L Hgb 7.8 L 7.2 L Hct 27.8 L 25.2 L MCV 77.8 L MCH 23.4 L 22.2 L MCHC 28.1 L 28.6 L RDW 18.2 H 19.7 H Absolute Nucleated RBC 0.61 H Neutrophils # (Manual) Lymphocytes # 0.28 L Lymphocytes # (Manual) 0.14 L Monocytes # 0.09 L Eosinophils # 0 L Myelocytes # (Manual) Nucleated RBCs 7 H NRBC/100 WBC Diff 11.2 H BUN Est GFR (CKD-EPI)NonAf 56.6 L BUN/Creatinine Ratio 22.00 H Glucose 133 H Calcium 8.4 L Crossmatch - Diagnostic Findings Chest x-ray: image reviewed (As noted in HPI. Suspect some component of pulmonary edema.) Assessment and Plan Assessment: Impression: Acute on chronic hypoxic respiratory failure Acute diastolic congestive heart failure Paroxysmal atrial fibrillation with RVR Acute anemia, suspect chronic GI blood losses, patient had negative Hemoccult on this presentation. Acute exacerbation of severe persistent asthma. History of diverticular perforation requiring surgery Compression fractures T7 and T12 and L2 spine. Chronic low back pain. History of nephrolithiasis. History of osteoporosis. History of splenectomy. Recommendation: Continue Cardizem Continue flecainide Continue updrafts Continue Lasix Continue Solu-Medrol Resume eliquis Monitor for any GI blood losses and monitor hemoglobin Continue telemetry. Resume Symbicort as taken at home. GI and DVT prophylaxis. Strict I's and O's and daily weights. We'll continue to follow. Time with Patient: Greater than 30
--- NOTE | 2021-10-29 15:44 | P.GSCN ---
History of Present Illness Consult date: 10/29/21 Reason for Consult: Anemia History of present illness: This a 71-year-old female was admitted to the ICU for exacerbation of COPD. Patient currently on IV steroids. Patient known to be anemic. Patient denies any evidence of GI bleed. Patient's known to me from previous low anterior resection for diverticulitis. Past Medical History Past Medical History: Atrial Fibrillation, Asthma, Cancer, Heart Failure, COPD, GERD/Reflux, Renal Disease, Respiratory Disorder Additional Past Medical History / Comment(s): Past diverticular perforation with surgery/colostomy with eventual reversal, bowel obstruction, home oxygen at HS 2L/NC, compression fractures T7 and T12 and L2 spine, chronic low back pain, osteoporosis, UTIs, sepsis, kidney stone, anemia, skin cancer with removal. History of Any Multi-Drug Resistant Organisms: None Reported Past Surgical History: Appendectomy, Bowel Resection, Cholecystectomy Additional Past Surgical History / Comment(s): Colonoscopies, bowel resection d/t perforation with colostomy, attempted colostomy reversal then exploratory lap with extensive lysis of adhesions, reversal of colostomy/repair of peristomal and incisional hernia/take down splenic flexure and partial omenectomy/spleenectomy, L eye cataract removed and repair of macular hole, cystoscopy-retrograde pyeloureterogram with stone removal, skin cancer removal. Past Anesthesia/Blood Transfusion Reactions: No Reported Reaction Past Psychological History: No Psychological Hx Reported Smoking Status: Never smoker Past Alcohol Use History: None Reported Past Drug Use History: None Reported - Past Family History Mother Family Medical History: Cancer Additional Family Medical History / Comment(s): COLON CANCER Father Family Medical History: Cancer Additional Family Medical History / Comment(s): stomach CA at age 95 Brother(s) Family Medical History: No Reported History Son(s) Family Medical History: No Reported History Medications and Allergies Home Medications Medication Instructions Recorded Confirmed Type Albuterol Nebulized [Ventolin 2.5 mg INHALATION RT-QID PRN 07/22/16 10/28/21 History Nebulized] Albuterol Sulfate [Proventil Hfa] 2 puff INHALATION RT-QID PRN 07/22/16 10/28/21 History Budesonide/Formoterol Fumarate 2 puff INHALATION RT-BID 07/22/16 10/28/21 History [Symbicort 160-4.5 Mcg Inhaler] Montelukast [Singulair] 10 mg PO HS 07/22/16 10/28/21 History Flecainide [Tambocor] 50 mg PO BID 01/19/18 10/28/21 History Folic Acid 1 mg PO DAILY 01/19/18 10/28/21 History Apixaban [Eliquis] 5 mg PO BID 05/25/18 10/28/21 History dilTIAZem HCL [Cartia Xt] 180 mg PO DAILY 05/25/18 10/28/21 History Calcium/Vitamin D Chewable 1 tab PO DAILY 01/05/21 10/28/21 History D-Mannose 1,400 mg PO DAILY 01/05/21 10/28/21 History Fennel Tea 1 dose PO DAILY PRN 01/05/21 10/28/21 History Magnesium Oxide [Mag-Ox] 400 mg PO DAILY 01/05/21 10/28/21 History Calcitonin Nasal [Fortical 1 spray NASAL DAILY 10/28/21 10/28/21 History (Miacalcin)] Cholecalciferol [Vitamin D3 (25 25 mcg PO DAILY 10/28/21 10/28/21 History Mcg = 1000 Iu)] Docusate [Colace] 100 mg PO BID PRN 10/28/21 10/28/21 History Fluticasone Nasal [place] [Flonase 2 spr EA NOSTRIL DAILY 10/28/21 10/28/21 History Nasal [place]] Umeclidinium [place] [Incruse 1 puff INHALATION RT-DAILY 10/28/21 10/28/21 History Ellipta] Vitamin E (Dl,Tocopheryl Acet) 400 unit PO DAILY 10/28/21 10/28/21 History [Vitamin E (400 Iu = 180 mg)] predniSONE 20 mg PO DAILY 10/28/21 10/28/21 History Allergies Allergy/AdvReac Type Severity Reaction Status Date / Time furosemide [From Lasix] Allergy Rash/Hives(patient Verified 10/28/21 15:17 has had since without reaction-10/28/21) cephalexin [From Keflex] AdvReac Diarrhea Verified 10/28/21 15:35 morphine AdvReac Hallucinati Verified 10/28/21 15:17 ons/Agitati on Surgical - Exam Vital Signs Temp Pulse Resp BP Pulse Ox 98 F 91 18 133/68 96 10/28/21 12:43 10/28/21 12:43 10/28/21 12:43 10/28/21 12:43 10/28/21 12:43 - General well developed, well nourished, no distress - Eyes PERRL - ENT normal pinna - Neck no masses - Respiratory normal expansion - Cardiovascular Rhythm: regular - Abdomen Abdomen: soft, non tender Results - Labs 10/29/21 03:54 10/29/21 03:54 Abnormal Lab Results - Last 24 Hours (Table) 10/28/21 10/28/21 10/29/21 Range/Units 14:34 22:16 03:54 RBC 3.35 L 3.24 L (3.80-5.40) m/uL Hgb 7.8 L 7.2 L (11.4-16.0) gm/dL Hct 27.8 L 25.2 L (34.0-46.0) % MCV 77.8 L (80.0-97.0) fL MCH 23.4 L 22.2 L (25.0-35.0) pg MCHC 28.1 L 28.6 L (31.0-37.0) g/dL RDW 18.2 H 19.7 H (11.5-15.5) % Absolute Nucleated RBC 0.61 H (0.00-0.00) X 10*3/uL Lymphocytes # 0.28 L (0.90-5.00) X 10*3/uL Lymphocytes # (Manual) 0.14 L (1.0-4.8) k/uL Monocytes # 0.09 L (0.20-1.00) X 10*3/uL Eosinophils # 0 L (0.04-0.35) X 10*3/uL Nucleated RBCs 7 H (0-0) /100 WBC NRBC/100 WBC Diff 11.2 H (0.0-0.0) /100 WBCS Est GFR (CKD-EPI)NonAf (60.0-200.0) BUN/Creatinine Ratio (12.00-20.00) Ratio Glucose (70-110) mg/dL Calcium (8.7-10.3) mg/dL Procalcitonin (0.02-0.09) ng/mL Crossmatch See Detail 10/29/21 10/29/21 Range/Units 03:54 03:54 RBC (3.80-5.40) m/uL Hgb (11.4-16.0) gm/dL Hct (34.0-46.0) % MCV (80.0-97.0) fL MCH (25.0-35.0) pg MCHC (31.0-37.0) g/dL RDW (11.5-15.5) % Absolute Nucleated RBC (0.00-0.00) X 10*3/uL Lymphocytes # (0.90-5.00) X 10*3/uL Lymphocytes # (Manual) (1.0-4.8) k/uL Monocytes # (0.20-1.00) X 10*3/uL Eosinophils # (0.04-0.35) X 10*3/uL Nucleated RBCs (0-0) /100 WBC NRBC/100 WBC Diff (0.0-0.0) /100 WBCS Est GFR (CKD-EPI)NonAf 56.6 L (60.0-200.0) BUN/Creatinine Ratio 22.00 H (12.00-20.00) Ratio Glucose 133 H (70-110) mg/dL Calcium 8.4 L (8.7-10.3) mg/dL Procalcitonin 0.11 H (0.02-0.09) ng/mL Crossmatch Diabetes panel 10/29/21 Range/Units 03:54 Sodium 141 (135-145) mmol/L Potassium 4.0 (3.5-5.5) mmol/L Chloride 100 (96-109) mmol/L Carbon Dioxide 27.2 (20.0-27.5) mmol/L BUN 22.0 (9.0-27.0) mg/dL Creatinine 1.0 (0.6-1.5) mg/dL Glucose 133 H (70-110) mg/dL Calcium 8.4 L (8.7-10.3) mg/dL Calcium panel 10/29/21 Range/Units 03:54 Calcium 8.4 L (8.7-10.3) mg/dL Pituitary panel 10/29/21 Range/Units 03:54 Sodium 141 (135-145) mmol/L Potassium 4.0 (3.5-5.5) mmol/L Chloride 100 (96-109) mmol/L Carbon Dioxide 27.2 (20.0-27.5) mmol/L BUN 22.0 (9.0-27.0) mg/dL Creatinine 1.0 (0.6-1.5) mg/dL Glucose 133 H (70-110) mg/dL Calcium 8.4 L (8.7-10.3) mg/dL Adrenal panel 10/29/21 Range/Units 03:54 Sodium 141 (135-145) mmol/L Potassium 4.0 (3.5-5.5) mmol/L Chloride 100 (96-109) mmol/L Carbon Dioxide 27.2 (20.0-27.5) mmol/L BUN 22.0 (9.0-27.0) mg/dL Creatinine 1.0 (0.6-1.5) mg/dL Glucose 133 H (70-110) mg/dL Calcium 8.4 L (8.7-10.3) mg/dL Assessment and Plan Assessment: Anemia. Patient has no signs of GI bleed. Patient will be considered for outpatient endoscopy when stable.
--- NOTE | 2021-10-29 17:05 | HP ---
HISTORY AND PHYSICAL CHIEF COMPLAINT: Shortness of breath. HISTORY OF PRESENT ILLNESS: This 71-year-old woman with a past medical history of multiple medical problems, including asthma, history of atrial fibrillation, COPD, being followed by in the outpatient setting, was complaining of shortness of breath. The patient came to [facility]. Patient was admitted for further evaluation and treatment. The patient also was found to have atrial fibrillation with fast ventricular rate. The patient was started on a Cardizem drip. Patient is monitored in the ICU at this time. Chest x-ray showed some mild interstitial edema. Diastolic CHF was suspected. The hemoglobin was found to be 6.7. The patient was transfused one unit, with improvement in hemoglobin; up to 7.2 at this time. There is no history of any fever, rigors or chills. PAST MEDICAL HISTORY: History of atrial fibrillation, asthma, multiple medical problems. HOME MEDICATIONS: Reviewed. They include prednisone. Doses and the rest of the medications are noted. ALLERGIES: ALLERGIES INCLUDE LASIX. FAMILY HISTORY: History of colon cancer in the family. SOCIAL HISTORY: No history of smoking. No history of alcohol intake. REVIEW OF SYSTEMS: Fourteen-point review of systems negative except as mentioned earlier. PHYSICAL EXAMINATION: Pulse is 125, irregular. Blood pressure 121/76, respiration 25. HEENT: Conjunctivae normal. NECK: No jugular venous distention. CARDIOVASCULAR: S1, S2 muffled, irregular. Tachycardic. RESPIRATION: Breath sounds diminished at the bases. Bilateral scattered rhonchi and crackles. Expiratory wheezing. ABDOMEN: Soft, nontender. No mass palpable. LEGS: No edema. No swelling. NERVOUS SYSTEM: Higher functions as mentioned earlier. Moves all 4 limbs. No focal motor or sensory deficit. LYMPHATICS: No lymph node palpable in neck, axillae or groin. SKIN: No ulcer, rash, bleeding. JOINTS: No active deforming arthropathy. LABS: WBC 5.5, hemoglobin 7.2. Other labs are noted. ASSESSMENT: 1. Chronic obstructive pulmonary disease, acute exacerbation, with hypoxic respiratory failure. 2. Atrial fibrillation with fast ventricular rate. 3. History of congestive heart failure. 4. Chronic obstructive pulmonary disease. 5. Gastroesophageal reflux disease. 6. Multiple medical issues. 7. NO CODE. RECOMMENDATIONS AND DISCUSSION: In this 71-year-old woman who presented with multiple complex medical issues, at this time I recommend to continue current medications. Continue with intensive bronchodilator treatment. Continue with the Cardizem. Anticoagulation. IV steroids. Monitor blood sugars closely. Prognosis is guarded because of multiple complex medical issues. Repeat labs. Closely follow with Pulmonary and Cardiology. Guarded prognosis. Further recommendations to follow. Discussed with the patient and family at the bedside. Surgery also has been consulted for anemia. MMODL / IJN: [id number] / MTDD
[2021-10-29] MEDS: INSULIN ASPART (NovoLOG) 100 UNIT/ML VIAL SQ SCH ×2 (17:44→21:17)
[2021-10-29 17:45] LABS: Glucose,Whole Blood 135 mg/dL (70-110)
[2021-10-29 19:50] LABS: Glucose,Whole Blood 137 mg/dL (70-110)
[2021-10-29] MEDS: SYMBICORT 160-4.5 MCG INHALER INHALATION SCH (20:46)
[2021-10-30] MEDS: IPRATROPIUM-ALBUTEROL 3 ML NEB INHALATION PRN ×2 (04:16→23:38)
[2021-10-30 06:15] LABS: Glucose,Whole Blood 142 mg/dL (70-110)
[2021-10-30] MEDS: INSULIN ASPART (NovoLOG) 100 UNIT/ML VIAL SQ SCH ×4 (06:32→20:29)
--- NOTE | 2021-10-30 07:24 | CA ---
Transthoracic Echo Report Name: Angelique Boyle Age: 71 Gender: F : 1950 Exam Date: 10/29/2021 15:47 Exam Location: [place] [facility] Ht (in): 64 Wt (lb): 195 Ordering Physician: Crow Dent MD Attending/Referring Phys: Cement Paver Yandy Bull RDCS Procedure CPT: Indications: eval for heart failure Cardiac Hx: Technical Quality: Contrast 1: Total Dose (mL): Contrast 2: Total Dose (mL): MEASUREMENTS (Male / Female) Normal Values 2D ECHO LV Diastolic Diameter PLAX 5.6 cm 4.2 - 5.9 / 3.9 - 5.3 cm LV Systolic Diameter PLAX 3.2 cm IVS Diastolic Thickness 1.2 cm 0.6 - 1.0 / 0.6 - 0.9 cm LVPW Diastolic Thickness 1.3 cm 0.6 - 1.0 / 0.6 - 0.9 cm LV Relative Wall Thickness 0.5 RV Internal Dim ED PLAX 2.8 cm LA Systolic Diameter LX 4.2 cm 3.0 - 4.0 / 2.7 - 3.8 cm LA Volume 80.3 cm??? 18 - 58 / 22 - 52 cm??? M-MODE Aortic Root Diameter MM 3.0 cm MV E Point Septal Separation 1.1 cm AV Cusp Separation MM 1.9 cm DOPPLER AV Peak Velocity 178.3 cm/s AV Peak Gradient 12.7 mmHg MV Area PHT 6.6 cm??? MV Deceleration Time 120.0 ms TR Peak Velocity 226.8 cm/s TR Peak Gradient 20.6 mmHg Right Ventricular Systolic Press 25.4 mmHg FINDINGS Left Ventricle Left ventricular ejection fraction is estimated at 50-55 %. . Mildly increased left ventricular diastolic diameter. Mild concentric left ventricular hypertrophy. Right Ventricle Normal right ventricular size and function. Right ventricular systolic pressure within normal limits. Right Atrium Normal right atrial size. Left Atrium Mildly increased left atrial diameter. Severely increased left atrial volume. Mildly increased left atrial area. No evidence for an atrial septal defect. Mitral Valve Mitral valve thickened. [id number] mitral regurgitation. Aortic Valve Trileaflet aortic valve. Focal thickening of the aortic valve cusps. No aortic valve stenosis or regurgitation. Tricuspid Valve Structurally normal tricuspid valve. Mild tricuspid regurgitation. Pulmonic Valve Structurally normal pulmonic valve. Pericardium Normal pericardium. No pericardial effusion. Aorta Normal size aortic root and proximal ascending aorta. CONCLUSIONS Preserved left ventricular systolic function. Both atria are enlarged. There is mitral annular calcification and aortic valve sclerosis. There is mild to moderate mitral regurgitation. No significant pulmonary hypertension. No pericardial effusion Previewed by: Dr. Tejas Abreu MD (Electronically Signed) Final Date: 30 October 2021 07:24
[2021-10-30] MEDS: IPRATROPIUM-ALBUTEROL 3 ML NEB INHALATION SCH ×4 (07:50→19:18)
[2021-10-30] MEDS: SYMBICORT 160-4.5 MCG INHALER INHALATION SCH ×2 (07:51→19:17)
[2021-10-30 08:15] LABS: Calcium 8.5 mg/dL (8.4-10.2); Potassium 3.9 mmol/L (3.5-5.1)
[2021-10-30] MEDS: methylPREDNISolone SOD SUCCI 40 MG/ML 1 ML VIAL IV SCH (08:22)
[2021-10-30] MEDS: PANTOPRAZOLE 40 MG/10 ML VIAL IVP SCH (08:22)
[2021-10-30] MEDS: FUROSEMIDE 10 MG/ML 4 ML VIAL IV SCH (08:22)
[2021-10-30] MEDS: FLECAINIDE 50 MG TAB PO SCH ×2 (08:22→20:28)
[2021-10-30 08:33] LABS: Anisocytosis Slight; HCT 27.8 % (34.0-46.0); HGB 7.8 gm/dL (11.4-16.0); Hypochromasia Marked; MCH 23.4 pg (25.0-35.0); MCHC 28.2 g/dL (31.0-37.0); Mean Platelet Volume 8.7; Platelet Count 350 k/uL (150-450); Poikilocytosis Slight; RBC 3.34 m/uL (3.80-5.40); RDW 18.7 % (11.5-15.5)
[2021-10-30] MEDS: polyethylene glycoL 3350 17 GM POWD.PACK PO SCH (08:35)
[2021-10-30] MEDS: APIXABAN 5 MG TAB PO SCH ×2 (08:51→20:31)
[2021-10-30 11:53] LABS: Glucose,Whole Blood 131 mg/dL (70-110)
[2021-10-30] MEDS ORDERED: SENNOSIDES 8.6 MG TAB PO PRN (11:56)
[2021-10-30 11:57] LABS: Neutrophils % (M) 95 %; Nucleated Red Blood Cells 7 /100 WBC (0-0); Total Cells Counted 200
[2021-10-30 11:58] LABS: Lymphocytes # (M) 0.54 k/uL (1.0-4.8); Monocytes # (M) 0.27 k/uL (0-1.0); Neutrophils # (M) 12.73 k/uL (1.3-7.7); WBC 13.4 k/uL (3.8-10.6)
[2021-10-30 12:03] LABS: RBC Fragments Present; Target Cells Present
[2021-10-30] MEDS: DILTIAZEM 125 MG in SODIUM CHLORIDE 0.9% 100 ML IV SCH ×2 (12:14→20:31)
[2021-10-30] MEDS: DOCUSATE 100 MG CAP PO SCH (12:16)
--- NOTE | 2021-10-30 12:30 | P.PN ---
Progress Note - Text Progress Note Date: 10/30/21 Patient has complaints of some shortness of breath. Her hematoma 7.8. She denies any GI bleed. On exam vital signs are stable. Abdomen soft. Nontender. Exacerbation of COPD. Chronic steroid use. Patient does not wish to undergo endoscopy. She will follow-up as an outpatient and we'll consider endoscopy at that time.
--- NOTE | 2021-10-30 12:38 | P.PN ---
Subjective Progress Note Date: 10/30/21 Principal diagnosis: Acute on chronic hypoxic respiratory failure This is a 71-year-old female with history of severe persistent asthma, normally sees Dr. robertson for her severe asthma. Patient is O2 dependent, she is also prednisone dependent, maintained on 20 mg of prednisone daily for many years. Used to be on 10 mg daily until recently and the dose was increased. Patient c alled the office recently, and she was complaining of intermittent cough wheezing and shortness of breath, and a prescription was called in for the patient including a prednisone burst and taper, along with antibiotics. She felt better when she was on a higher dose of prednisone, however as she went back to her usual maintenance dose, patient started having more and more shortness of breath. Patient came into the ER yesterday, admitted, chest x-ray is suggestive of mild interstitial edema and small pleural effusion, she was also noted to have hemoglobin of 6.7. Patient had extremely generalized weakness and shortness of breath. Patient received a unit of packed RBCs since admission, and her hemoglobin today is up to 7.2. In addition to all of this, the patient developed atrial fibrillation with RVR, she is known to have history of paroxysmal atrial fibrillation. Patient was placed on Cardizem drip at 10 mg per hour, she is normally maintained on flecainide. And she is also on eliquis. Patient was transferred to the ICU as an overflow, she was supposed to go to a monitor bed on selective, but no beds were available, and she is now in the ICU as an overflow. Her cardiac history is significant for history of paroxysmal atrial fibrillation, history of congestive heart failure, she does have good LV function and ejection fraction was 60%. She had a grade 2 diastolic dysfunction with mild mitral and tricuspid regurgitation. I saw the patient in the ICU, recommended increasing her Cardizem to 10 mg/h and recommended cardiac evaluation. Patient is back on her usual bronchodilators and IV Solu-Medrol. She is also on antibiotics. Patient was reevaluated today on 10/30/21, continues to have shortness of breath, continues to have atrial fibrillation with RVR, rate is 120. Patient has dyspnea with any activity. She is maximized on bronchodilators, she is being followed by cardiology for her atrial fibrillation/RVR, Remains on Lasix at 40 mg IV push every 12 hours, remains on flecainide. She is on methylprednisolone 40 mg a push every 8 hours for her underlying severe asthma. Objective - Vital Signs Vital signs: Vital Signs Temp 97 F L 10/30/21 11:35 Pulse 118 H 10/30/21 12:04 Resp 20 10/30/21 11:35 BP 125/77 10/30/21 11:35 Pulse Ox 97 10/30/21 11:35 FiO2 36 10/29/21 00:53 Intake & Output 10/29/21 10/30/21 10/30/21 18:59 06:59 18:59 Intake Total 603.667 68.5 243 Balance 603.667 68.5 243 Weight 86.3 kg Intake: Intake, IV Titration 103.667 68.5 125 Amount Diltiazem 125 mg In 103.667 68.5 125 Sodium Chloride 0.9% 100 ml @ 10 MG/HR 10 mls/hr IV .[id number] [facility] Rx#: [id number] Oral 500 118 Other: Voiding Method Toilet Toilet Toilet # Voids 3 1 1 # Bowel Movements 0 - Exam Physical Exam: Revealed 71-year-old female in no distress, on 4 L nasal cannula and O2 saturation 96%. Head: Atraumatic, normocephalic. HEENT:[Neck is supple.] [No neck masses.] [No thyromegaly.] [No JVD.] Chest: Symmetrical chest expansion, diminished breath sound bilaterally no rhonchi and no wheezes. Cardiac Exam: Irregular irregular rhythm, 2/6 systolic murmur thought the precordium, no S3 gallop. Abdomen: [Soft, nontender, no megaly, no rebound, no guarding, normal bowel sounds.] Extremities: [No clubbing, no edema, no cyanosis.] Good pulses bilaterally. Neurological Exam: Alert oriented 3, no gross focal neurologic deficits. Psychiatric: Normal mood, affect and normal mental status exam. Skin: No rashes. - Labs CBC & Chem 7: 10/30/21 07:34 10/30/21 07:34 Labs: Abnormal Lab Results - Last 24 Hours (Table) 10/29/21 10/29/21 10/29/21 Range/Units 03:54 17:43 19:49 WBC (3.8-10.6) k/uL RBC (3.80-5.40) m/uL Hgb (11.4-16.0) gm/dL Hct (34.0-46.0) % MCH (25.0-35.0) pg MCHC (31.0-37.0) g/dL RDW (11.5-15.5) % Neutrophils # (Manual) (1.3-7.7) k/uL Lymphocytes # (Manual) (1.0-4.8) k/uL Nucleated RBCs (0-0) /100 WBC Carbon Dioxide (22-30) mmol/L BUN (7-17) mg/dL Creatinine (0.52-1.04) mg/dL Glucose (74-99) mg/dL POC Glucose (mg/dL) 135 H 137 H (70-110) mg/dL Procalcitonin 0.11 H (0.02-0.09) ng/mL 10/30/21 10/30/21 10/30/21 Range/Units 06:14 07:34 07:34 WBC 13.4 H (3.8-10.6) k/uL RBC 3.34 L (3.80-5.40) m/uL Hgb 7.8 L (11.4-16.0) gm/dL Hct 27.8 L (34.0-46.0) % MCH 23.4 L (25.0-35.0) pg MCHC 28.2 L (31.0-37.0) g/dL RDW 18.7 H (11.5-15.5) % Neutrophils # (Manual) 12.73 H (1.3-7.7) k/uL Lymphocytes # (Manual) 0.54 L (1.0-4.8) k/uL Nucleated RBCs 7 H (0-0) /100 WBC Carbon Dioxide 31 H (22-30) mmol/L BUN 37 H (7-17) mg/dL Creatinine 1.16 H (0.52-1.04) mg/dL Glucose 128 H (74-99) mg/dL POC Glucose (mg/dL) 142 H (70-110) mg/dL Procalcitonin (0.02-0.09) ng/mL 10/30/21 Range/Units 11:45 WBC (3.8-10.6) k/uL RBC (3.80-5.40) m/uL Hgb (11.4-16.0) gm/dL Hct (34.0-46.0) % MCH (25.0-35.0) pg MCHC (31.0-37.0) g/dL RDW (11.5-15.5) % Neutrophils # (Manual) (1.3-7.7) k/uL Lymphocytes # (Manual) (1.0-4.8) k/uL Nucleated RBCs (0-0) /100 WBC Carbon Dioxide (22-30) mmol/L BUN (7-17) mg/dL Creatinine (0.52-1.04) mg/dL Glucose (74-99) mg/dL POC Glucose (mg/dL) 131 H (70-110) mg/dL Procalcitonin (0.02-0.09) ng/mL Assessment and Plan Assessment: Impression: Acute on chronic hypoxic respiratory failure Acute diastolic congestive heart failure Paroxysmal atrial fibrillation with RVR Acute anemia, suspect chronic GI blood losses, patient had negative Hemoccult on this presentation. Acute exacerbation of severe persistent asthma. History of diverticular perforation requiring surgery Compression fractures T7 and T12 and L2 spine. Chronic low back pain. History of nephrolithiasis. History of osteoporosis. History of splenectomy. Recommendation: Continue Cardizem Continue flecainide Continue updrafts Continue Lasix Continue Solu-Medrol Continue eliquis Continue telemetry. Continue Symbicort GI and DVT prophylaxis. We'll continue to follow. Time with Patient: Less than 30
[2021-10-30] MEDS ORDERED: DOCUSATE 100 MG CAP PO PRN (12:46)
--- NOTE | 2021-10-30 13:09 | P.PN ---
Subjective This is a 71-year-old female past medical history of paroxysmal atrial fibrillation on Eliquis, asthma requiring home oxygen, congestive heart failure, chronic kidney disease. She follows in the office with Dr. Tinajero. We have seen the patient in consultation for atrial fibrillation with rapid ventricular response, congestive heart failure. She presents emergency department for increased shortness of breath and chronic lower extremity edema. Patient admitted to the hospital with anemia, exacerbation of asthma, and heart failure exacerbation. Patient's initial hemoglobin was 6.7 she received 1 unit of blood today she is 7.2. Last night patient went into atrial fibrillation with rapid ventricular rate. Troponins negative 3. Patient is on Eliquis for anticoagulation at home. She is on Cardizem gtt. Her flecainide was increased to 100 mg twice a day. 10/30/2021 Patient seen and examined at bedside, no acute distress. Her shortness of breath has improved. Her lower extremity edema has improved. Telemetry reviewed Patient continues to be in atrial fibrillation and heart rates are slightly better controlled but continues to be in the [id number] Echocardiogram revealed an EF of 5055 %, both atria are enlarged. Mild to moderate mitral regurgitation Meds: Eliquis 5 mg twice a day, Cardizem drip at 15 mg/hr, flecainide 100 mg twice a day, IV Lasix 40 mg twice a day. Patient is also on IV steroids and duonebs Labs: Hemoglobin 7.8, sodium 139, potassium 3.9, BUN 37, serum creatinine 1.16 GENERAL: Some shortness of breath, in no acute distress. NECK: Supple without JVD LUNGS: Breath sounds expiratory wheezing noted, mild crackles in the bases to auscultation bilaterally. Respiration equal and unlabored. No wheezes, rales or rhonchi. HEART: Irregular, rate and rhythm systolic murmur at apex. No rubs or gallops. S1 and S2 heard. EXTREMITIES: Normal range of motion, moderate edema R>L No clubbing or cyanosis. Peripheral pulses intact. ASSESSMENT Paroxysmal atrial fibrillation with RVR Eliquis Asthma exacerbation Acute on chronic heart failure with preserved ejection fraction Chronic kidney disease PLAN IV Lasix 40mg daily Continue flecainide 100mg BID Continue Eliquis Do not recommend starting beta nena secondary to asthma Continue with telemetry monitoring Continue with strict I's and O's and daily weights Further recommendations based on clinical course Nurse Practitioner note has been reviewed, I agree with a documented findings and plan of care. Patient was seen and examined. Objective - Vital Signs Vital signs: Vital Signs Temp 98 F 10/30/21 08:20 Pulse 116 H 10/30/21 08:20 Resp 20 10/30/21 08:20 BP 110/69 10/30/21 08:20 Pulse Ox 95 10/30/21 08:20 FiO2 36 10/29/21 00:53 Intake & Output 10/29/21 10/30/21 10/30/21 18:59 06:59 18:59 Intake Total 603.667 68.5 118 Balance 603.667 68.5 118 Weight 86.3 kg Intake: Intake, IV Titration 103.667 68.5 Amount Diltiazem 125 mg In 103.667 68.5 Sodium Chloride 0.9% 100 ml @ 10 MG/HR 10 mls/hr IV .[id number] [facility] Rx#: [id number] Oral 500 118 Other: Voiding Method Toilet Toilet Toilet # Voids 3 1 1 # Bowel Movements 0 - Labs CBC & Chem 7: 10/30/21 07:34 10/30/21 07:34 Labs: Abnormal Lab Results - Last 24 Hours (Table) 10/29/21 10/29/21 10/29/21 Range/Units 03:54 17:43 19:49 WBC (3.8-10.6) k/uL RBC (3.80-5.40) m/uL Hgb (11.4-16.0) gm/dL Hct (34.0-46.0) % MCH (25.0-35.0) pg MCHC (31.0-37.0) g/dL RDW (11.5-15.5) % Carbon Dioxide (22-30) mmol/L BUN (7-17) mg/dL Creatinine (0.52-1.04) mg/dL Glucose (74-99) mg/dL POC Glucose (mg/dL) 135 H 137 H (70-110) mg/dL Procalcitonin 0.11 H (0.02-0.09) ng/mL 10/30/21 10/30/21 10/30/21 Range/Units 06:14 07:34 07:34 WBC 14.3 H (3.8-10.6) k/uL RBC 3.34 L (3.80-5.40) m/uL Hgb 7.8 L (11.4-16.0) gm/dL Hct 27.8 L (34.0-46.0) % MCH 23.4 L (25.0-35.0) pg MCHC 28.2 L (31.0-37.0) g/dL RDW 18.7 H (11.5-15.5) % Carbon Dioxide 31 H (22-30) mmol/L BUN 37 H (7-17) mg/dL Creatinine 1.16 H (0.52-1.04) mg/dL Glucose 128 H (74-99) mg/dL POC Glucose (mg/dL) 142 H (70-110) mg/dL Procalcitonin (0.02-0.09) ng/mL
--- NOTE | 2021-10-30 14:25 | PN ---
PROGRESS NOTE DATE OF SERVICE: 10/30/2021 This 71-year-old woman who was admitted with COPD acute exacerbation also had atrial fibrillations. No chest pain. No palpitations. No fever. Patient is still short of breath. PHYSICAL EXAMINATION: Pulse 121, blood pressure 120/70, respirations 20. HEENT: Conjunctivae normal. Neck: No JVD. Cardiovascular: S1, S2 regular. Respiration: Bilateral scattered rhonchi and expiratory wheezing. Abdomen: Soft. Nervous system: No focal deficits. LABS: Hemoglobin 7.8. Other labs are noted. ASSESSMENT: 1. Chronic obstructive pulmonary disease acute exacerbation, with acute hypoxic respiratory failure. 2. Atrial fibrillation with fast ventricular rate. 3. History of congestive heart failure. 4. Chronic obstructive pulmonary disease. 5. Gastroesophageal reflux disease. 6. Multiple medical issues. 7. NO CODE. RECOMMENDATIONS AND DISCUSSION: Recommend to continue current medications, management, continue with Cardizem. Continue the bronchodilators, steroids and closely follow with Pulmonary. Further recommendations to follow. MMODL / IJN: [id number] /
[2021-10-30 16:53] LABS: Glucose,Whole Blood 127 mg/dL (70-110)
[2021-10-30] MEDS: methylPREDNISolone SOD SUCCI 125 MG/2 ML VIAL IV SCH ×2 (17:06→23:15)
[2021-10-30] MEDS: FLUTICASONE 50MCG/SPRAY NASAL 16GM EA NOSTRIL SCH (17:07)
[2021-10-30 20:09] LABS: Glucose,Whole Blood 145 mg/dL (70-110)
[2021-10-30] MEDS: MONTELUKAST 10 MG TAB PO SCH (20:28)
[2021-10-31] MEDS: IPRATROPIUM-ALBUTEROL 3 ML NEB INHALATION PRN (03:45)
[2021-10-31] MEDS: DOCUSATE 100 MG CAP PO SCH ×3 (05:22→23:08)
[2021-10-31 05:59] LABS: Glucose,Whole Blood 138 mg/dL (70-110)
[2021-10-31] MEDS: INSULIN ASPART (NovoLOG) 100 UNIT/ML VIAL SQ SCH ×4 (06:34→21:31)
[2021-10-31] MEDS: methylPREDNISolone SOD SUCCI 125 MG/2 ML VIAL IV SCH (06:34)
[2021-10-31] MEDS: SYMBICORT 160-4.5 MCG INHALER INHALATION SCH ×2 (07:39→19:46)
[2021-10-31] MEDS: IPRATROPIUM-ALBUTEROL 3 ML NEB INHALATION SCH ×4 (07:39→19:46)
[2021-10-31] MEDS: CALCIUM CARB-VIT D 500 MG-5 MCG TAB PO SCH (08:30)
[2021-10-31] MEDS: MAGNESIUM OXIDE 400 MG TAB PO SCH (08:30)
[2021-10-31] MEDS: FOLIC ACID 1 MG TAB PO SCH (08:30)
[2021-10-31] MEDS: FLECAINIDE 50 MG TAB PO SCH ×2 (08:30→19:53)
[2021-10-31] MEDS: APIXABAN 5 MG TAB PO SCH ×2 (08:30→19:53)
[2021-10-31] MEDS: polyethylene glycoL 3350 17 GM POWD.PACK PO SCH (08:30)
[2021-10-31] MEDS: CHOLECALCIFEROL 25 MCG (1000 IU) TABLET PO SCH (08:31)
[2021-10-31] MEDS: PANTOPRAZOLE 40 MG/10 ML VIAL IVP SCH (08:31)
[2021-10-31] MEDS: FLUTICASONE 50MCG/SPRAY NASAL 16GM EA NOSTRIL SCH (08:31)
[2021-10-31] MEDS: DILTIAZEM 125 MG in SODIUM CHLORIDE 0.9% 100 ML IV SCH ×2 (08:31→15:53)
[2021-10-31] MEDS: VITAMIN E (DL,TOCOPHERYL ACET) 400 UNIT (180 MG) CAP PO SCH (08:31)
[2021-10-31 08:56] LABS: Calcium 8.6 mg/dL (8.4-10.2); Potassium 4.1 mmol/L (3.5-5.1)
[2021-10-31] MEDS ORDERED: FUROSEMIDE 10 MG/ML 4 ML VIAL IV SCH (09:00)
[2021-10-31] MEDS ORDERED: D MANNOSE PO SCH (09:00)
[2021-10-31] MEDS: CALCITONIN 200 USP/1 NASAL SPRAY 3.7ML BTL NASAL SCH (09:53)
--- NOTE | 2021-10-31 10:53 | P.PN ---
Subjective This is a pleasant 71 years old male with multiple medical problems. Presents because of dyspnea 2 weeks thought secondary to diastolic CHF with e chocardiogram showing ejection fraction 55-60% with some evidence of acute COPD exacerbation patient is being followed closely by pulmonary and cardiology services. And he is currently on IV Lasix 40 mg once daily and Solu-Medrol with lower the dose 60 down to 40 mg today. Patient is still complaining from dyspnea with a dry cough. He is on 4 L oxygen at home which is same as here. But he was started on liquids in the hospital for new onset A. fib with RVR, present on admission. He remains on Cardizem drip at 15 mg/h. Also he is on flecainide with extension clerk following her closely. A still tachycardic around 107. He is afebrile. WBC is 13,000, hemoglobin 7.8 and creatinine 1.1. Chest x-ray showed cardiomegaly with mild pulmonary congestion Surgical team were consulted for anemia and the recommended outpatient endoscopy Objective - Vital Signs Vital signs: Vital Signs Temp 98.1 F 10/31/21 08:27 Pulse 107 H 10/31/21 08:27 Resp 18 10/31/21 08:27 BP 118/57 10/31/21 08:27 Pulse Ox 95 10/31/21 08:27 FiO2 36 10/29/21 00:53 Intake & Output 10/30/21 10/31/21 10/31/21 18:59 06:59 18:59 Intake Total 1439 249.25 120 Balance 1439 249.25 120 Intake: Intake, IV Titration 125 249.25 Amount Diltiazem 125 mg In 125 249.25 Sodium Chloride 0.9% 100 ml @ 10 MG/HR 10 mls/hr IV .[id number] [facility] Rx#: [id number] Oral 1314 120 Other: Voiding Method Toilet Toilet Toilet # Voids 2 1 1 # Bowel Movements 0 - Exam GENERAL: The patient is alert and oriented x3, not in any acute distress. Well developed, well nourished. HEENT: Pupils are round and equally reacting to light. EOMI. No scleral icterus. No conjunctival pallor. Normocephalic, atraumatic. No pharyngeal erythema. No thyromegaly. CARDIOVASCULAR: S1 and S2 present. No murmurs, rubs, or gallops. PULMONARY: Chest is clear to auscultation, no wheezing or crackles. ABDOMEN: Soft, nontender, nondistended, normoactive bowel sounds. No palpable organomegaly. MUSCULOSKELETAL: No joint swelling or deformity. EXTREMITIES: No cyanosis, clubbing, or pedal edema. NEUROLOGICAL: Gross neurological examination did not reveal any focal deficits. SKIN: No rashes. no petechiae. - Labs CBC & Chem 7: 10/30/21 07:34 10/31/21 07:58 Labs: Abnormal Lab Results - Last 24 Hours (Table) 10/29/21 10/30/21 10/30/21 Range/Units 03:54 07:34 11:45 WBC 13.4 H (3.8-10.6) k/uL Neutrophils # (Manual) 12.73 H (1.3-7.7) k/uL Lymphocytes # (Manual) 0.54 L (1.0-4.8) k/uL Nucleated RBCs 7 H (0-0) /100 WBC Chloride (98-107) mmol/L Carbon Dioxide (22-30) mmol/L BUN (7-17) mg/dL Creatinine (0.52-1.04) mg/dL Glucose (74-99) mg/dL POC Glucose (mg/dL) 131 H (70-110) mg/dL TSH 0.329 L (0.350-5.500) uIU/mL 10/30/21 10/30/21 10/31/21 Range/Units 16:52 20:02 05:57 WBC (3.8-10.6) k/uL Neutrophils # (Manual) (1.3-7.7) k/uL Lymphocytes # (Manual) (1.0-4.8) k/uL Nucleated RBCs (0-0) /100 WBC Chloride (98-107) mmol/L Carbon Dioxide (22-30) mmol/L BUN (7-17) mg/dL Creatinine (0.52-1.04) mg/dL Glucose (74-99) mg/dL POC Glucose (mg/dL) 127 H 145 H 138 H (70-110) mg/dL TSH (0.350-5.500) uIU/mL 10/31/21 Range/Units 07:58 WBC (3.8-10.6) k/uL Neutrophils # (Manual) (1.3-7.7) k/uL Lymphocytes # (Manual) (1.0-4.8) k/uL Nucleated RBCs (0-0) /100 WBC Chloride 96 L (98-107) mmol/L Carbon Dioxide 37 H (22-30) mmol/L BUN 40 H (7-17) mg/dL Creatinine 1.14 H (0.52-1.04) mg/dL Glucose 120 H (74-99) mg/dL POC Glucose (mg/dL) (70-110) mg/dL TSH (0.350-5.500) uIU/mL Assessment and Plan Assessment: Acute diastolic CHF with ejection fraction 55-60% Acute hypoxic respiratory failure on chronic respiratory failure COPD exacerbation Paroxysmal atrial fibrillation with RVR Anemia we will need outpatient endoscopy Plan: This is a pleasant 71 years old female who presents with COPD and CHF. Continue with IV Lasix Continue with IV Solu-Medrol Continue with Cardizem drip and Eliquis [facility] pulmonary consult. Labs and medication were reviewed.. Continue same treatment. Continue with symptomatic treatment. Resume home medication. Monitor lytes and vitals. DVT and GI prophylaxis. Further recommendationsas per clinical course of the patient DVT prophylaxis: Eliquis a GI Prophylaxis: Pepcid PT/OT: Pending Prognosis is guarded
[2021-10-31 11:37] LABS: Glucose,Whole Blood 132 mg/dL (70-110)
--- NOTE | 2021-10-31 11:58 | XR ---
EXAMINATION TYPE: XR chest 1V portable DATE OF EXAM: 10/31/2021 COMPARISON: Chest x-ray 10/28/2021 CT chest 01/13/2021 HISTORY: Dyspnea TECHNIQUE: Single frontal view of the chest is obtained. FINDINGS: There is no focal air space opacity, pleural effusion, or pneumothorax seen. The cardiac silhouette size is stable and enlarged. Interstitium is increased, patient is rotated. Mediastinum a gain appears widened. There are overlying leads. The osseous structures are intact. IMPRESSION: Correlate for possible pulmonary venous hypertension and interstitial edema
--- NOTE | 2021-10-31 12:03 | P.PN ---
Progress Note - Text Progress Note Date: 10/31/21 Patient remained stable. She shows no sign of GI bleed. On exam vital signs are stable. Abdomen soft. Patient will follow-up in the office in the outpatient setting. We will sign off.
--- NOTE | 2021-10-31 12:41 | P.PN ---
Subjective This is a 71-year-old female past medical history of paroxysmal atrial fibrillation on Eliquis, asthma requiring home oxygen, congestive heart failure, chronic kidney disease. She follows in the office with Dr. Tinajero. We have seen the patient in consultation for atrial fibrillation with rapid ventricular response, congestive heart failure. She presents emergency department for increased shortness of breath and chronic lower extremity edema. Patient admitted to the hospital with anemia, exacerbation of asthma, and heart failure exacerbation. Patient's initial hemoglobin was 6.7 she received 1 unit of blood today she is 7.2. Last night patient went into atrial fibrillation with rapid ventricular rate. Troponins negative 3. Patient is on Eliquis for anticoagulation at home. She is on Cardizem gtt. Her flecainide was increased to 100 mg twice a day. 10/31/2021 Patient seen and examined at bedside, no acute distress. She continues to have shortness of breath, Her shortness of breath has improved. Her lower extremity edema has improved. Telemetry reviewed Patient continues to be in atrial fibrillation and heart rates are slightly better controlled but continues to be in the 120s this morning Echocardiogram revealed an EF of 5055 %, both atria are enlarged. Mild to moderate mitral regurgitation Meds: Eliquis 5 mg twice a day, Cardizem drip at 15 mg/hr, flecainide 100 mg twice a day, IV Lasix 40 mg twice a day. Patient is also on IV steroids and duonebs Labs: Sodium 138, potassium 4.1, BUN 40, serum creatinine 1.14 BP: 118/57, heart rate 107, afebrile, oxygen saturation 95% on 4 L nasal cannula GENERAL: Some shortness of breath, in no acute distress. NECK: Supple without JVD LUNGS: Breath sounds expiratory wheezing noted, mild crackles in the bases to auscultation bilaterally. Respiration equal and unlabored. No wheezes, rales or rhonchi. HEART: Irregular, rate and rhythm systolic murmur at apex. No rubs or gallops. S1 and S2 heard. EXTREMITIES: Normal range of motion, moderate edema R>L No clubbing or cyanosis. Peripheral pulses intact. ASSESSMENT Paroxysmal atrial fibrillation with RVR Eliquis Asthma exacerbation Acute on chronic heart failure with preserved ejection fraction Chronic kidney disease PLAN Unfortunately patient remains to be tachycardic, Start metoprolol tartrate 25mg TID. IV Lasix 40mg daily Continue flecainide 100mg BID Continue Eliquis Continue with telemetry monitoring Continue with strict I's and O's and daily weights Further recommendations based on clinical course Nurse Practitioner note has been reviewed, I agree with a documented findings and plan of care. Patient was seen and examined. Objective - Vital Signs Vital signs: Vital Signs Temp 98.1 F 10/31/21 08:27 Pulse 107 H 10/31/21 08:27 Resp 18 10/31/21 08:27 BP 118/57 10/31/21 08:27 Pulse Ox 95 10/31/21 08:27 FiO2 36 10/29/21 00:53 Intake & Output 10/30/21 10/31/21 10/31/21 18:59 06:59 18:59 Intake Total 1439 249.25 120 Balance 1439 249.25 120 Intake: Intake, IV Titration 125 249.25 Amount Diltiazem 125 mg In 125 249.25 Sodium Chloride 0.9% 100 ml @ 10 MG/HR 10 mls/hr IV .[id number] [facility] Rx#: [id number] Oral 1314 120 Other: Voiding Method Toilet Toilet Toilet # Voids 2 1 1 # Bowel Movements 0 - Labs CBC & Chem 7: 10/30/21 07:34 10/31/21 07:58 Labs: Abnormal Lab Results - Last 24 Hours (Table) 10/29/21 10/30/21 10/30/21 Range/Units 03:54 07:34 11:45 WBC 13.4 H (3.8-10.6) k/uL Neutrophils # (Manual) 12.73 H (1.3-7.7) k/uL Lymphocytes # (Manual) 0.54 L (1.0-4.8) k/uL Nucleated RBCs 7 H (0-0) /100 WBC Chloride (98-107) mmol/L Carbon Dioxide (22-30) mmol/L BUN (7-17) mg/dL Creatinine (0.52-1.04) mg/dL Glucose (74-99) mg/dL POC Glucose (mg/dL) 131 H (70-110) mg/dL TSH 0.329 L (0.350-5.500) uIU/mL 10/30/21 10/30/21 10/31/21 Range/Units 16:52 20:02 05:57 WBC (3.8-10.6) k/uL Neutrophils # (Manual) (1.3-7.7) k/uL Lymphocytes # (Manual) (1.0-4.8) k/uL Nucleated RBCs (0-0) /100 WBC Chloride (98-107) mmol/L Carbon Dioxide (22-30) mmol/L BUN (7-17) mg/dL Creatinine (0.52-1.04) mg/dL Glucose (74-99) mg/dL POC Glucose (mg/dL) 127 H 145 H 138 H (70-110) mg/dL TSH (0.350-5.500) uIU/mL 10/31/21 Range/Units 07:58 WBC (3.8-10.6) k/uL Neutrophils # (Manual) (1.3-7.7) k/uL Lymphocytes # (Manual) (1.0-4.8) k/uL Nucleated RBCs (0-0) /100 WBC Chloride 96 L (98-107) mmol/L Carbon Dioxide 37 H (22-30) mmol/L BUN 40 H (7-17) mg/dL Creatinine 1.14 H (0.52-1.04) mg/dL Glucose 120 H (74-99) mg/dL POC Glucose (mg/dL) (70-110) mg/dL TSH (0.350-5.500) uIU/mL
[2021-10-31] MEDS: METOPROLOL TARTRATE 25 MG TAB PO SCH ×3 (12:52→23:09)
--- NOTE | 2021-10-31 14:12 | P.PN ---
Subjective Progress Note Date: 10/31/21 Principal diagnosis: Shortness of breath This is a 71-year-old female with history of severe persistent asthma, normally sees Dr. robertson for her severe asthma. Patient is O2 dependent, she is also prednisone dependent, maintained on 20 mg of prednisone daily for many years. Used to be on 10 mg daily until recently and the dose was increased. Patient called the office recently, and she was complaining of intermittent cough wheezing and shortness of breath, and a prescription was called in for the patient including a prednisone burst and taper, along with antibiotics. She felt better when she was on a higher dose of prednisone, however as she went back to her usual maintenance dose, patient started having more and more shortness of breath. Patient came into the ER yesterday, admitted, chest x-ray is suggestive of mild interstitial edema and small pleural effusion, she was also noted to have hemoglobin of 6.7. Patient had extremely generalized weakness and shortness of breath. Patient received a unit of packed RBCs since admission, and her hemoglobin today is up to 7.2. In addition to all of this, the patient developed atrial fibrillation with RVR, she is known to have history of paroxysmal atrial fibrillation. Patient was placed on Cardizem drip at 10 mg per hour, she is normally maintained on flecainide. And she is also on eliquis. Patient was transferred to the ICU as an overflow, she was supposed to go to a monitor bed on selective, but no beds were available, and she is now in the ICU as an overflow. Her cardiac history is significant for history of paroxysmal atrial fibrillation, history of congestive heart failure, she does have good LV function and ejection fraction was 60%. She had a grade 2 diastolic dysfunction with mild mitral and tricuspid regurgitation. I saw the patient in the ICU, recommended increasing her Cardizem to 10 mg/h and recommended cardiac evaluation. Patient is back on her usual bronchodilators and IV Solu-Medrol. She is also on antibiotics. Patient was reevaluated today on 10/30/21, continues to have shortness of breath, continues to have atrial fibrillation with RVR, rate is 120. Patient has dyspnea with any activity. She is maximized on bronchodilators, she is being followed by cardiology for her atrial fibrillation/RVR, Remains on Lasix at 40 mg IV push every 12 hours, remains on flecainide. She is on methylprednisolone 40 mg a push every 8 hours for her underlying severe asthma. On 10/31/2021 patient seen in follow-up on selective care unit, still remains short of breath, but no acute distress, on 4 L of oxygen her pulse ox is 95%, remains on IV Solu-Medrol at 61 g every 6 hours, IV Lasix has been added per cardiology today, she remains in A. fib with RVR with a rate of 117-124, remains a Cardizem infusion at a rate of 15 mg per hour. Follow-up chest x-ray has been obtained showing possible pulmonary venous hypertension and interstitial edema. No fever or chills, no Plans of chest discomfort. Cardiology is on the case and adjusting patient's medications, she is on Eliquis for anticoagulation. Objective - Vital Signs Vital signs: Vital Signs Temp 98.1 F 10/31/21 08:27 Pulse 106 H 10/31/21 11:37 Resp 20 10/31/21 11:04 BP 109/58 10/31/21 11:04 Pulse Ox 97 10/31/21 11:04 FiO2 36 10/29/21 00:53 Intake & Output 10/30/21 10/31/21 10/31/21 18:59 06:59 18:59 Intake Total 1439 249.25 240 Balance 1439 249.25 240 Intake: Intake, IV Titration 125 249.25 Amount Diltiazem 125 mg In 125 249.25 Sodium Chloride 0.9% 100 ml @ 10 MG/HR 10 mls/hr IV .[id number] [facility] Rx#: [id number] Oral 1314 240 Other: Voiding Method Toilet Toilet Toilet # Voids 2 1 0 # Bowel Movements 0 - Exam GENERAL EXAM: Alert, very pleasant, 71-year-old white female on 4 L of oxygen and a pulse ox of 97% comfortable in no apparent distress. HEAD: Normocephalic/atraumatic. EYES: Normal reaction of pupils, equal size. Conjunctiva pink, sclera white. NOSE: Clear with pink turbinates. THROAT: No erythema or exudates. NECK: No masses, no JVD, no thyroid enlargement, no adenopathy. CHEST: No chest wall deformity. Symmetrical expansion. LUNGS: Equal air entry with diminished breath sounds, wheezing and crackles CVS: Irregular rate and rhythm, normal S1 and S2, no gallops, no murmurs, no rubs ABDOMEN: Soft, nontender. No hepatosplenomegaly, normal bowel sounds, no guarding or rigidity. EXTREMITIES: No clubbing, +1 edema, no cyanosis, 2+ pulses and upper and lower extremities. MUSCULOSKELETAL: Muscle strength and tone normal. SPINE: No scoliosis or deformity SKIN: No rashes CENTRAL NERVOUS SYSTEM: Alert and oriented -3. No focal deficits, tone is normal in all 4 extremities. PSYCHIATRIC: Alert and oriented -3. Appropriate affect. Intact judgment and insight. - Labs CBC & Chem 7: 10/30/21 07:34 10/31/21 07:58 Labs: Abnormal Lab Results - Last 24 Hours (Table) 10/29/21 10/30/21 10/30/21 Range/Units 03:54 16:52 20:02 Chloride (98-107) mmol/L Carbon Dioxide (22-30) mmol/L BUN (7-17) mg/dL Creatinine (0.52-1.04) mg/dL Glucose (74-99) mg/dL POC Glucose (mg/dL) 127 H 145 H (70-110) mg/dL TSH 0.329 L (0.350-5.500) uIU/mL 10/31/21 10/31/21 10/31/21 Range/Units 05:57 07:58 11:36 Chloride 96 L (98-107) mmol/L Carbon Dioxide 37 H (22-30) mmol/L BUN 40 H (7-17) mg/dL Creatinine 1.14 H (0.52-1.04) mg/dL Glucose 120 H (74-99) mg/dL POC Glucose (mg/dL) 138 H 132 H (70-110) mg/dL TSH (0.350-5.500) uIU/mL Assessment and Plan Plan: Assessment: #1. Acute chronic hypoxic respiratory failure, related to acute exacerbation of diastolic CHF #2. A. fib with RVR #3. Acute anemia, with suspicion of chronic GI blood losses, patient had a n egative Hemoccult on presentation. Status post transfusion with 1 unit of packed red blood cells. General surgeries on the case please refer to their consultation note #4. Acute exacerbation of severe persistent bronchial asthma #5. History of diverticular perforation requiring surgery #6. Compression fracture T7, T12 and L2 spine #7. Chronic low back pain #8. History of nephrolithiasis #9. History of osteoporosis #10. History of splenectomy Plan: Agree with diuretics Chest x-ray has been reviewed showing interstitial edema Continue IV Solu-Medrol but we can decrease the dose to 40 mg every 8 hours Rate control medications and anticoagulation per cardiology General surgery recommendations in regards to anemia Continue nebulized bronchodilators We'll continue to follow I have personally seen and examined the patient, performed the documentation and the assessment and plan as written. Number of minutes spent on the visit: [15] Time with Patient: Less than 30
[2021-10-31] MEDS: methylPREDNISolone SOD SUCCI 40 MG/ML 1 ML VIAL IV SCH ×2 (15:21→23:08)
[2021-10-31 16:50] LABS: Glucose,Whole Blood 128 mg/dL (70-110)
[2021-10-31] MEDS: MONTELUKAST 10 MG TAB PO SCH (19:53)
[2021-10-31 20:27] LABS: Glucose,Whole Blood 132 mg/dL (70-110)
[2021-11-01] MEDS: IPRATROPIUM-ALBUTEROL 3 ML NEB INHALATION PRN ×2 (00:36→04:09)
[2021-11-01] MEDS: DILTIAZEM 125 MG in SODIUM CHLORIDE 0.9% 100 ML IV SCH ×2 (01:08→09:10)
[2021-11-01 06:04] LABS: Glucose,Whole Blood 141 mg/dL (70-110)
[2021-11-01] MEDS: INSULIN ASPART (NovoLOG) 100 UNIT/ML VIAL SQ SCH ×4 (06:18→20:43)
[2021-11-01 06:57] LABS: Calcium 8.7 mg/dL (8.4-10.2); Potassium 3.9 mmol/L (3.5-5.1)
[2021-11-01] MEDS: IPRATROPIUM-ALBUTEROL 3 ML NEB INHALATION SCH ×5 (07:45→19:39)
[2021-11-01] MEDS: SYMBICORT 160-4.5 MCG INHALER INHALATION SCH ×2 (07:46→19:39)
[2021-11-01] MEDS: polyethylene glycoL 3350 17 GM POWD.PACK PO SCH (08:39)
[2021-11-01] MEDS: CALCITONIN 200 USP/1 NASAL SPRAY 3.7ML BTL NASAL SCH (08:40)
[2021-11-01] MEDS: FLUTICASONE 50MCG/SPRAY NASAL 16GM EA NOSTRIL SCH (08:40)
[2021-11-01] MEDS: methylPREDNISolone SOD SUCCI 40 MG/ML 1 ML VIAL IV SCH ×3 (08:41→23:30)
[2021-11-01] MEDS: DOCUSATE 100 MG CAP PO SCH ×2 (08:41→20:45)
[2021-11-01] MEDS: CALCIUM CARB-VIT D 500 MG-5 MCG TAB PO SCH (08:41)
[2021-11-01] MEDS: FLECAINIDE 50 MG TAB PO SCH ×2 (08:41→20:45)
[2021-11-01] MEDS: METOPROLOL TARTRATE 25 MG TAB PO SCH ×3 (08:41→20:45)
[2021-11-01] MEDS: VITAMIN E (DL,TOCOPHERYL ACET) 400 UNIT (180 MG) CAP PO SCH (08:41)
[2021-11-01] MEDS: APIXABAN 5 MG TAB PO SCH ×2 (08:41→20:45)
[2021-11-01] MEDS: PANTOPRAZOLE 40 MG/10 ML VIAL IVP SCH (08:41)
[2021-11-01] MEDS: CHOLECALCIFEROL 25 MCG (1000 IU) TABLET PO SCH (08:41)
[2021-11-01] MEDS: MAGNESIUM OXIDE 400 MG TAB PO SCH (08:41)
[2021-11-01] MEDS: FOLIC ACID 1 MG TAB PO SCH (08:41)
[2021-11-01] MEDS ORDERED: FLECAINIDE 50 MG TAB PO STA (10:12)
[2021-11-01] MEDS ORDERED: PROMETHAZINE 25 MG TAB PO PRN (10:17)
[2021-11-01] MEDS: DILTIAZEM CD 180 MG CAP.ER.24H PO SCH (10:28)
--- NOTE | 2021-11-01 10:55 | P.PN ---
Subjective This is a pleasant 71 years old male with multiple medical problems. Presents because of dyspnea 2 weeks thought secondary to diastolic CHF with e chocardiogram showing ejection fraction 55-60% with some evidence of acute COPD exacerbation patient is being followed closely by pulmonary and cardiology services. And he is currently on IV Lasix 40 mg once daily and Solu-Medrol with lower the dose 60 down to 40 mg today. Patient is still complaining from dyspnea with a dry cough. He is on 4 L oxygen at home which is same as here. But he was started on liquids in the hospital for new onset A. fib with RVR, present on admission. He remains on Cardizem drip at 15 mg/h. Also he is on flecainide with flight readiness technician following her closely. A still tachycardic around 107. He is afebrile. WBC is 13,000, hemoglobin 7.8 and creatinine 1.1. Chest x-ray showed cardiomegaly with mild pulmonary congestion Surgical team were consulted for anemia and the recommended outpatient endoscopy 11/01/2021 Patient is awake and alert, patient has a lot of cough overnight and he has sleeping difficulties. His been followed closely by pulmonary and cardiology team. He was still on Cardizem drip this morning. Also he is on Eliquis 5 mg. Creatinine went up 1.4 was likely secondary to diuresis, he is on IV Lasix 40 mg daily. Also escaped on Solu-Medrol 40 mg. Linen Room Supervisor added several inotropic medication including metoprolol 25 mg twice a day, Cardizem 180 mg daily and increased dose of flecainide to 150 mg. Heart rate is better controlled in 60s today. He is on 4 L oxygen at home which is the same as here. Hemoglobin 7.8 surgery team recommended on endoscopy which can be done as an outpatient. Surgicel already signed off. He is on a Protonix and Eliquis Objective - Vital Signs Vital signs: Vital Signs Temp 97.5 F L 11/01/21 03:13 Pulse 66 11/01/21 08:00 Resp 16 11/01/21 03:13 BP 117/66 11/01/21 03:13 Pulse Ox 95 11/01/21 03:13 FiO2 36 10/29/21 00:53 Intake & Output 07/27/22 07/28/22 07/28/22 18:59 06:59 18:59 Intake Total 350.5 125 113.5 Balance 350.5 125 113.5 Weight 87.1 kg Intake: Intake, IV Titration 110.5 125 113.5 Amount Diltiazem 125 mg In 110.5 125 113.5 Sodium Chloride 0.9% 100 ml @ 10 MG/HR 10 mls/hr IV .[id number] [facility] Rx#: [id number] Oral 240 Other: Voiding Method Toilet Toilet # Voids 0 # Bowel Movements 0 - Exam GENERAL: The patient is alert and oriented x3, not in any acute distress. Well developed, well nourished. HEENT: Pupils are round and equally reacting to light. EOMI. No scleral icterus. No conjunctival pallor. Normocephalic, atraumatic. No pharyngeal erythema. No thyromegaly. CARDIOVASCULAR: S1 and S2 present. No murmurs, rubs, or gallops. PULMONARY: Chest is clear to auscultation, no wheezing or crackles. ABDOMEN: Soft, nontender, nondistended, normoactive bowel sounds. No palpable organomegaly. MUSCULOSKELETAL: No joint swelling or deformity. EXTREMITIES: No cyanosis, clubbing, or pedal edema. NEUROLOGICAL: Gross neurological examination did not reveal any focal deficits. SKIN: No rashes. no petechiae. - Labs CBC & Chem 7: 10/30/21 07:34 11/01/21 05:58 Labs: Abnormal Lab Results - Last 24 Hours (Table) 10/31/21 10/31/21 10/31/21 Range/Units 11:36 16:48 20:26 Sodium (137-145) mmol/L Chloride (98-107) mmol/L Carbon Dioxide (22-30) mmol/L BUN (7-17) mg/dL Creatinine (0.52-1.04) mg/dL Glucose (74-99) mg/dL POC Glucose (mg/dL) 132 H 128 H 132 H (70-110) mg/dL 11/01/21 11/01/21 Range/Units 05:58 06:03 Sodium 134 L (137-145) mmol/L Chloride 93 L (98-107) mmol/L Carbon Dioxide 35 H (22-30) mmol/L BUN 53 H (7-17) mg/dL Creatinine 1.42 H (0.52-1.04) mg/dL Glucose 122 H (74-99) mg/dL POC Glucose (mg/dL) 141 H (70-110) mg/dL Assessment and Plan Assessment: Acute diastolic CHF with ejection fraction 55-60% Acute hypoxic respiratory failure on chronic respiratory failure COPD exacerbation Paroxysmal atrial fibrillation with RVR Anemia we will need outpatient endoscopy Plan: This is a pleasant 71 years old female who presents with COPD and CHF. Continue with IV Lasix, we will defer the diuretic management to cardiology and pulmonary team Continue with IV Solu-Medrol Continue with Cardizem drip and [facility] pulmonary consult. Labs and medication were reviewed.. Continue same treatment. Continue with symptomatic treatment. Resume home medication. Monitor lytes and vitals. DVT and GI prophylaxis. Further recommendationsas per clinical course of the patient DVT prophylaxis: Eliquis GI Prophylaxis: ppi PT/OT: Pending Prognosis is guarded
--- NOTE | 2021-11-01 10:58 | P.PN ---
Subjective Progress Note Date: 11/01/21 Principal diagnosis: Acute on chronic hypoxic respiratory failure This is a 71-year-old female with history of severe persistent asthma, normally sees Dr. robertson for her severe asthma. Patient is O2 dependent, she is also prednisone dependent, maintained on 20 mg of prednisone daily for many years. Used to be on 10 mg daily until recently and the dose was increased. Patient c alled the office recently, and she was complaining of intermittent cough wheezing and shortness of breath, and a prescription was called in for the patient including a prednisone burst and taper, along with antibiotics. She felt better when she was on a higher dose of prednisone, however as she went back to her usual maintenance dose, patient started having more and more shortness of breath. Patient came into the ER yesterday, admitted, chest x-ray is suggestive of mild interstitial edema and small pleural effusion, she was also noted to have hemoglobin of 6.7. Patient had extremely generalized weakness and shortness of breath. Patient received a unit of packed RBCs since admission, and her hemoglobin today is up to 7.2. In addition to all of this, the patient developed atrial fibrillation with RVR, she is known to have history of paroxysmal atrial fibrillation. Patient was placed on Cardizem drip at 10 mg per hour, she is normally maintained on flecainide. And she is also on eliquis. Patient was transferred to the ICU as an overflow, she was supposed to go to a monitor bed on selective, but no beds were available, and she is now in the ICU as an overflow. Her cardiac history is significant for history of paroxysmal atrial fibrillation, history of congestive heart failure, she does have good LV function and ejection fraction was 60%. She had a grade 2 diastolic dysfunction with mild mitral and tricuspid regurgitation. I saw the patient in the ICU, recommended increasing her Cardizem to 10 mg/h and recommended cardiac evaluation. Patient is back on her usual bronchodilators and IV Solu-Medrol. She is also on antibiotics. Patient was reevaluated today on 10/30/21, continues to have shortness of breath, continues to have atrial fibrillation with RVR, rate is 120. Patient has dyspnea with any activity. She is maximized on bronchodilators, she is being followed by cardiology for her atrial fibrillation/RVR, Remains on Lasix at 40 mg IV push every 12 hours, remains on flecainide. She is on methylprednisolone 40 mg a push every 8 hours for her underlying severe asthma. Reevaluated today on 11/01/21, patient is improving, her atrial fibrillation seems to be better controlled nonetheless she remains on Cardizem drip at 5 mg per hour. Patient has less shortness of breath, but she had significant symptoms of cough last night. Chest x-ray is still suggestive of mild interstitial edema. Patient remains on diuretics. She remains on bronchodilators and she remains on methylprednisolone. Not quite ready for discharge planning. Labs today were reviewed, bicarb is 35 BUN is 53 creatinine 1.4 to Objective - Vital Signs Vital signs: Vital Signs Temp 98.0 F 11/01/21 08:36 Pulse 64 11/01/21 08:36 Resp 22 11/01/21 08:36 BP 109/68 11/01/21 08:36 Pulse Ox 96 11/01/21 08:36 FiO2 36 10/29/21 00:53 Intake & Output 10/31/21 11/01/21 11/01/21 18:59 06:59 18:59 Intake Total 350.5 125 353.5 Balance 350.5 125 353.5 Weight 87.1 kg Intake: Intake, IV Titration 110.5 125 113.5 Amount Diltiazem 125 mg In 110.5 125 113.5 Sodium Chloride 0.9% 100 ml @ 10 MG/HR 10 mls/hr IV .[id number] [facility] Rx#: [id number] Oral 240 240 Other: Voiding Method Toilet Toilet Toilet # Voids 0 # Bowel Movements 0 - Exam Physical Exam: Revealed 71-year-old female in no distress, on 4 L nasal cannula Head: Atraumatic, normocephalic. Cushingoid. HEENT:[Neck is supple.] [No neck masses.] [No thyromegaly.] [No JVD.] Chest: Symmetrical chest expansion, diminished breath sound bilaterally no rhonchi and no wheezes. Cardiac Exam: Irregular irregular rhythm, 2/6 systolic murmur thought the precordium, no S3 gallop. Abdomen: [Soft, nontender, no megaly, no rebound, no guarding, normal bowel sounds.] Extremities: [No clubbing, no edema, no cyanosis.] Good pulses bilaterally. Neurological Exam: Alert oriented 3, no gross focal neurologic deficits. Psychiatric: Normal mood, affect and normal mental status exam. Skin: No rashes. - Labs CBC & Chem 7: 10/30/21 07:34 11/01/21 05:58 Labs: Abnormal Lab Results - Last 24 Hours (Table) 10/31/21 10/31/21 10/31/21 Range/Units 11:36 16:48 20:26 Sodium (137-145) mmol/L Chloride (98-107) mmol/L Carbon Dioxide (22-30) mmol/L BUN (7-17) mg/dL Creatinine (0.52-1.04) mg/dL Glucose (74-99) mg/dL POC Glucose (mg/dL) 132 H 128 H 132 H (70-110) mg/dL 11/01/21 11/01/21 Range/Units 05:58 06:03 Sodium 134 L (137-145) mmol/L Chloride 93 L (98-107) mmol/L Carbon Dioxide 35 H (22-30) mmol/L BUN 53 H (7-17) mg/dL Creatinine 1.42 H (0.52-1.04) mg/dL Glucose 122 H (74-99) mg/dL POC Glucose (mg/dL) 141 H (70-110) mg/dL Assessment and Plan Assessment: Impression: Acute on chronic hypoxic respiratory failure Acute diastolic congestive heart failure Paroxysmal atrial fibrillation with RVR Acute anemia, suspect chronic GI blood losses, patient had negative Hemoccult on this presentation. Acute exacerbation of severe persistent asthma. History of diverticular perforation requiring surgery Compression fractures T7 and T12 and L2 spine. Chronic low back pain. History of nephrolithiasis. History of osteoporosis. History of splenectomy. Recommendation: Continue Cardizem, being addressed by cardiology on the case. Continue flecainide Continue updrafts Continue Lasix Continue Solu-Medrol Continue eliquis Continue telemetry. Continue Symbicort GI and DVT prophylaxis. Not quite ready for discharge planning possibly in the next 24-40 We'll continue to follow. Time with Patient: Less than 30
[2021-11-01] MEDS: guaiFENesin-DM 100-10MG/5ML 10 ML CUP PO SCH ×2 (11:11→16:47)
--- NOTE | 2021-11-01 11:46 | P.PN ---
Subjective This is a 71-year-old female past medical history of paroxysmal atrial fibrillation on Eliquis, asthma requiring home oxygen, congestive heart failure, chronic kidney disease. She follows in the office with Dr. Tinajero. We have seen the patient in consultation for atrial fibrillation with rapid ventricular response, congestive heart failure. She presents emergency department for increased shortness of breath and chronic lower extremity edema. Patient admitted to the hospital with anemia, exacerbation of asthma, and heart failure exacerbation. Patient's initial hemoglobin was 6.7 she received 1 unit of blood today she is 7.2. Last night patient went into atrial fibrillation with rapid ventricular rate. Troponins negative 3. Patient is on Eliquis for anticoagulation at home. She is on Cardizem gtt. Her flecainide was increased to 100 mg twice a day. 11/01/2021 Patient seen and examined at bedside, no acute distress. She continues to have shortness of breath, Her shortness of breath has improved. Her lower extremity edema has improved. Telemetry reviewed Patient continues to be in atrial fibrillation and heart rates are slightly better controlled 60s-80s, however, after cardizem drip decreased HR increased to 110-115. Echocardiogram revealed an EF of 5055 %, both atria are enlarged. Mild to mod erate mitral regurgitation Meds: Eliquis 5 mg twice a day, Cardizem drip at 5 mg/hr, flecainide 100 mg twice a day, metoprolol 25 mg TID. Patient is also on IV steroids and duonebs Labs: Sodium 138, potassium 4.1, BUN 40, serum creatinine 1.14 BP: 132/76, heart rate 111, afebrile, saturation 74% on 4 L nasal cannula GENERAL: Some shortness of breath, in no acute distress. NECK: Supple without JVD LUNGS: Breath sounds expiratory wheezing noted, mild crackles in the bases to auscultation bilaterally. Respiration equal and unlabored. No wheezes, rales or rhonchi. HEART: Irregular, rate and rhythm systolic murmur at apex. No rubs or gallops. S1 and S2 heard. EXTREMITIES: Normal range of motion, mild bilateral edema R >L No clubbing or cyanosis. Peripheral pulses intact. ASSESSMENT Paroxysmal atrial fibrillation with RVR Eliquis Asthma exacerbation Acute on chronic heart failure with preserved ejection fraction Acute on Chronic kidney disease PLAN Restart Cardizem 180mg daily, and stop IV Cardizem Increase flecainide 150mg BID Metoprolol tartrate 25mg TID. Stop IV Lasix secondary to increased creatinine Continue Eliquis Continue with telemetry monitoring Further recommendations based on clinical course Nurse Practitioner note has been reviewed, I agree with a documented findings and plan of care. Patient was seen and examined. Objective - Vital Signs Vital signs: Vital Signs Temp 98.0 F 11/01/21 08:36 Pulse 110 H 11/01/21 11:40 Resp 20 11/01/21 11:10 BP 132/76 11/01/21 11:10 Pulse Ox 94 L 11/01/21 11:10 FiO2 36 10/29/21 00:53 Intake & Output 10/31/21 11/01/21 11/01/21 18:59 06:59 18:59 Intake Total 350.5 125 353.5 Balance 350.5 125 353.5 Weight 87.1 kg Intake: Intake, IV Titration 110.5 125 113.5 Amount Diltiazem 125 mg In 110.5 125 113.5 Sodium Chloride 0.9% 100 ml @ 10 MG/HR 10 mls/hr IV .[id number] [facility] Rx#: [id number] Oral 240 240 Other: Voiding Method Toilet Toilet Toilet # Voids 0 # Bowel Movements 0 - Labs CBC & Chem 7: 10/30/21 07:34 11/01/21 05:58 Labs: Abnormal Lab Results - Last 24 Hours (Table) 10/31/21 10/31/21 11/01/21 Range/Units 16:48 20:26 05:58 Sodium 134 L (137-145) mmol/L Chloride 93 L (98-107) mmol/L Carbon Dioxide 35 H (22-30) mmol/L BUN 53 H (7-17) mg/dL Creatinine 1.42 H (0.52-1.04) mg/dL Glucose 122 H (74-99) mg/dL POC Glucose (mg/dL) 128 H 132 H (70-110) mg/dL 11/01/21 Range/Units 06:03 Sodium (137-145) mmol/L Chloride (98-107) mmol/L Carbon Dioxide (22-30) mmol/L BUN (7-17) mg/dL Creatinine (0.52-1.04) mg/dL Glucose (74-99) mg/dL POC Glucose (mg/dL) 141 H (70-110) mg/dL
[2021-11-01 11:52] LABS: Glucose,Whole Blood 193 mg/dL (70-110)
[2021-11-01 16:40] LABS: Glucose,Whole Blood 139 mg/dL (70-110)
[2021-11-01 19:57] LABS: Glucose,Whole Blood 129 mg/dL (70-110)
[2021-11-01] MEDS: MONTELUKAST 10 MG TAB PO SCH (20:45)
[2021-11-02] MEDS: guaiFENesin-DM 100-10MG/5ML 10 ML CUP PO SCH ×5 (00:01→23:24)
[2021-11-02] MEDS: IPRATROPIUM-ALBUTEROL 3 ML NEB INHALATION SCH ×7 (00:12→23:49)
[2021-11-02 06:03] LABS: Glucose,Whole Blood 141 mg/dL (70-110)
[2021-11-02 06:24] LABS: Anisocytosis Slight; HCT 26.5 % (34.0-46.0); HGB 7.4 gm/dL (11.4-16.0); Hypochromasia Marked; MCV 82.2 fL (80.0-100.0); Mean Platelet Volume 8.4; Platelet Count 361 k/uL (150-450); Poikilocytosis Slight; RBC 3.22 m/uL (3.80-5.40); RDW 18.7 % (11.5-15.5)
[2021-11-02] MEDS: INSULIN ASPART (NovoLOG) 100 UNIT/ML VIAL SQ SCH ×4 (06:27→20:44)
[2021-11-02 06:45] LABS: Calcium 8.8 mg/dL (8.4-10.2); Magnesium 2.4 mg/dL (1.6-2.3); Potassium 4.3 mmol/L (3.5-5.1)
[2021-11-02 07:15] LABS: Lymphocytes # (M) 0.29 k/uL (1.0-4.8); Monocytes # (M) 0.19 k/uL (0-1.0); Neutrophils # (M) 9.22 k/uL (1.3-7.7); Neutrophils % (M) 96 %; Nucleated Red Blood Cells 38 /100 WBC (0-0); Total Cells Counted 200; WBC 9.6 k/uL (3.8-10.6)
[2021-11-02 07:17] LABS: Anisocytosis (M) Present; Large Platelets Present; Poikilocytosis (M) Present
[2021-11-02 07:19] LABS: Polychromasia Present; RBC Fragments Present; Target Cells Present
[2021-11-02] MEDS: methylPREDNISolone SOD SUCCI 40 MG/ML 1 ML VIAL IV SCH ×3 (08:20→23:23)
[2021-11-02] MEDS: CALCIUM CARB-VIT D 500 MG-5 MCG TAB PO SCH (08:21)
[2021-11-02] MEDS: VITAMIN E (DL,TOCOPHERYL ACET) 400 UNIT (180 MG) CAP PO SCH (08:21)
[2021-11-02] MEDS: APIXABAN 5 MG TAB PO SCH ×2 (08:21→20:43)
[2021-11-02] MEDS: MAGNESIUM OXIDE 400 MG TAB PO SCH (08:21)
[2021-11-02] MEDS: DOCUSATE 100 MG CAP PO SCH ×2 (08:21→20:43)
[2021-11-02] MEDS: METOPROLOL TARTRATE 25 MG TAB PO SCH ×3 (08:21→23:23)
[2021-11-02] MEDS: DILTIAZEM CD 180 MG CAP.ER.24H PO SCH (08:21)
[2021-11-02] MEDS: FOLIC ACID 1 MG TAB PO SCH (08:22)
[2021-11-02] MEDS: CHOLECALCIFEROL 25 MCG (1000 IU) TABLET PO SCH (08:22)
[2021-11-02] MEDS: FLECAINIDE 50 MG TAB PO SCH ×2 (08:22→20:43)
[2021-11-02] MEDS: PANTOPRAZOLE 40 MG/10 ML VIAL IVP SCH (08:23)
[2021-11-02] MEDS: polyethylene glycoL 3350 17 GM POWD.PACK PO SCH (08:23)
[2021-11-02] MEDS: FLUTICASONE 50MCG/SPRAY NASAL 16GM EA NOSTRIL SCH (08:24)
[2021-11-02] MEDS: CALCITONIN 200 USP/1 NASAL SPRAY 3.7ML BTL NASAL SCH (08:24)
[2021-11-02] MEDS: SYMBICORT 160-4.5 MCG INHALER INHALATION SCH ×2 (08:33→20:51)
--- NOTE | 2021-11-02 11:17 | P.PN ---
Subjective This is a 71-year-old female past medical history of paroxysmal atrial fibrillation on Eliquis, asthma requiring home oxygen, congestive heart failure, chronic kidney disease. She follows in the office with Dr. Tinajero. We have seen the patient in consultation for atrial fibrillation with rapid ventricular response, congestive heart failure. She presents emergency department for increased shortness of breath and chronic lower extremity edema. Patient admitted to the hospital with anemia, exacerbation of asthma, and heart failure exacerbation. Patient's initial hemoglobin was 6.7 she received 1 unit of blood today she is 7.2. Last night patient went into atrial fibrillation with rapid ventricular rate. Troponins negative 3. Patient is on Eliquis for anticoagulation at home. She is on Cardizem gtt. Her flecainide was increased to 100 mg twice a day. Echocardiogram revealed an EF of 5055 %, both atria are enlarged. Mild to moderate mitral regurgitation 11/02/2021 Patient seen and examined at bedside, no acute distress. She continues to have shortness of breath, Her shortness of breath has improved. Her lower extremity edema has improved. Telemetry reviewed Patient continues to be in atrial fibril lation and heart rates 90s-low 100s. Her flecainide was increased to 150mg BID yesterday. PO Cardizem was resumed and IV Cardizem stopped. Meds: Eliquis 5 mg twice a day, Cardizem 180mg Dialy, flecainide 150 mg twice a day, metoprolol 25 mg TID. Patient is also on IV steroids and duonebs Labs: Sodium 134, potassium 43, BUN 51, serum creatinine 1.21 VITALS: Reviewed GENERAL: Some shortness of breath, in no acute distress. NECK: Supple without JVD LUNGS: Breath sounds expiratory wheezing noted, mild crackles in the bases to auscultation bilaterally. Respiration equal and unlabored. No wheezes, rales or rhonchi. HEART: Irregular, rate and rhythm systolic murmur at apex. No rubs or gallops. S1 and S2 heard. EXTREMITIES: Normal range of motion, mild bilateral edema R >L No clubbing or cyanosis. Peripheral pulses intact. ASSESSMENT Paroxysmal atrial fibrillation with RVR Eliquis Typical atrial flutter Asthma exacerbation Acute on chronic heart failure with preserved ejection fraction Acute on Chronic kidney disease, likely related to IV diuresis, improving PLAN Continue Cardizem 180mg daily, flecainide 150mg BID, Metoprolol tartrate 25mg TID. Continue Eliquis Continue with telemetry monitoring Further recommendations based on clinical course Nurse Practitioner note has been reviewed, I agree with a documented findings and plan of care. Patient was seen and examined. Objective - Vital Signs Vital signs: Vital Signs Temp 97.6 F 11/02/21 08:00 Pulse 94 11/02/21 08:49 Resp 21 11/02/21 08:00 BP 120/77 11/02/21 08:00 Pulse Ox 94 L 11/02/21 08:00 FiO2 36 10/29/21 00:53 Intake & Output 11/01/21 11/02/21 11/02/21 18:59 06:59 18:59 Intake Total 833.5 Output Total 700 Balance 133.5 Intake: Intake, IV Titration 113.5 Amount Diltiazem 125 mg In 113.5 Sodium Chloride 0.9% 100 ml @ 10 MG/HR 10 mls/hr IV .[id number] [facility] Rx#: [id number] Oral 720 Output: Urine 700 Other: Voiding Method Toilet Toilet Toilet - Labs CBC & Chem 7: 11/02/21 05:17 11/02/21 05:17 Labs: Abnormal Lab Results - Last 24 Hours (Table) 11/01/21 11/01/21 11/01/21 Range/Units 11:41 16:39 19:56 RBC (3.80-5.40) m/uL Hgb (11.4-16.0) gm/dL Hct (34.0-46.0) % MCH (25.0-35.0) pg MCHC (31.0-37.0) g/dL RDW (11.5-15.5) % Neutrophils # (Manual) (1.3-7.7) k/uL Lymphocytes # (Manual) (1.0-4.8) k/uL Nucleated RBCs (0-0) /100 WBC Sodium (137-145) mmol/L Chloride (98-107) mmol/L Carbon Dioxide (22-30) mmol/L BUN (7-17) mg/dL Creatinine (0.52-1.04) mg/dL Glucose (74-99) mg/dL POC Glucose (mg/dL) 193 H 139 H 129 H (70-110) mg/dL Magnesium (1.6-2.3) mg/dL 11/02/21 11/02/21 11/02/21 Range/Units 05:17 05:17 06:02 RBC 3.22 L (3.80-5.40) m/uL Hgb 7.4 L (11.4-16.0) gm/dL Hct 26.5 L (34.0-46.0) % MCH 23.0 L (25.0-35.0) pg MCHC 28.0 L (31.0-37.0) g/dL RDW 18.7 H (11.5-15.5) % Neutrophils # (Manual) 9.22 H (1.3-7.7) k/uL Lymphocytes # (Manual) 0.29 L (1.0-4.8) k/uL Nucleated RBCs 38 H (0-0) /100 WBC Sodium 134 L (137-145) mmol/L Chloride 94 L (98-107) mmol/L Carbon Dioxide 38 H (22-30) mmol/L BUN 51 H (7-17) mg/dL Creatinine 1.21 H (0.52-1.04) mg/dL Glucose 115 H (74-99) mg/dL POC Glucose (mg/dL) 141 H (70-110) mg/dL Magnesium 2.4 H (1.6-2.3) mg/dL
[2021-11-02 11:51] LABS: Glucose,Whole Blood 139 mg/dL (70-110)
--- NOTE | 2021-11-02 12:32 | P.PN ---
Subjective This is a pleasant 71 years old male with multiple medical problems. Presents because of dyspnea 2 weeks thought secondary to diastolic CHF with e chocardiogram showing ejection fraction 55-60% with some evidence of acute COPD exacerbation patient is being followed closely by pulmonary and cardiology services. And he is currently on IV Lasix 40 mg once daily and Solu-Medrol with lower the dose 60 down to 40 mg today. Patient is still complaining from dyspnea with a dry cough. He is on 4 L oxygen at home which is same as here. But he was started on liquids in the hospital for new onset A. fib with RVR, present on admission. He remains on Cardizem drip at 15 mg/h. Also he is on flecainide with science writer following her closely. A still tachycardic around 107. He is afebrile. WBC is 13,000, hemoglobin 7.8 and creatinine 1.1. Chest x-ray showed cardiomegaly with mild pulmonary congestion Surgical team were consulted for anemia and the recommended outpatient endoscopy 11/01/2021 Patient is awake and alert, patient has a lot of cough overnight and he has sleeping difficulties. His been followed closely by pulmonary and cardiology team. He was still on Cardizem drip this morning. Also he is on Eliquis 5 mg. Creatinine went up 1.4 was likely secondary to diuresis, he is on IV Lasix 40 mg daily. Also escaped on Solu-Medrol 40 mg. Limnologist added several inotropic medication including metoprolol 25 mg twice a day, Cardizem 180 mg daily and increased dose of flecainide to 150 mg. Heart rate is better controlled in 60s today. He is on 4 L oxygen at home which is the same as here. Hemoglobin 7.8 surgery team recommended on endoscopy which can be done as an outpatient. Surgicel already signed off. He is on a Protonix and Eliquis 11/02/2021 Patient awake and alert, she still has coughing and she still has bilateral leg edema and basal crepitation although it is mild. Also patient is still complaining of from some exertional dyspnea although she remains on 4 L oxygen which is her home dose. Her cough is better after starting on Robitussin yesterday. She still tachypneic but slightly tachycardic. Chest x-ray showing mild pulmonary congestion and she is on IV Lasix. Also she is on home dose of Eliquis 5 mg and continued on flecainide, metoprolol and Cardizem 180 mg daily for her paroxysmal A. fib and RVR. Creatinine slightly better today 1.2. We will check chest x-ray tomorrow as well as lab. Patient will need endoscopy as an outpatient for her anemia with surgery team Objective - Vital Signs Vital signs: Vital Signs Temp 97.6 F 11/02/21 08:00 Pulse 94 11/02/21 08:49 Resp 21 11/02/21 08:00 BP 120/77 11/02/21 08:00 Pulse Ox 94 L 11/02/21 08:00 FiO2 36 10/29/21 00:53 Intake & Output 11/01/21 11/02/21 11/02/21 18:59 06:59 18:59 Intake Total 833.5 Output Total 700 Balance 133.5 Intake: Intake, IV Titration 113.5 Amount Diltiazem 125 mg In 113.5 Sodium Chloride 0.9% 100 ml @ 10 MG/HR 10 mls/hr IV .[id number] [facility] Rx#: [id number] Oral 720 Output: Urine 700 Other: Voiding Method Toilet Toilet Toilet - Exam GENERAL: The patient is alert and oriented x3, not in any acute distress. Well developed, well nourished. HEENT: Pupils are round and equally reacting to light. EOMI. No scleral icterus. No conjunctival pallor. Normocephalic, atraumatic. No pharyngeal erythema. No thyromegaly. CARDIOVASCULAR: S1 and S2 present. No murmurs, rubs, or gallops. PULMONARY: Chest is clear to auscultation, no wheezing or crackles. ABDOMEN: Soft, nontender, nondistended, normoactive bowel sounds. No palpable organomegaly. MUSCULOSKELETAL: No joint swelling or deformity. EXTREMITIES: No cyanosis, clubbing, or pedal edema. NEUROLOGICAL: Gross neurological examination did not reveal any focal deficits. SKIN: No rashes. no petechiae. - Labs CBC & Chem 7: 11/02/21 05:17 11/02/21 05:17 Labs: Abnormal Lab Results - Last 24 Hours (Table) 11/01/21 11/01/21 11/01/21 Range/Units 11:41 16:39 19:56 RBC (3.80-5.40) m/uL Hgb (11.4-16.0) gm/dL Hct (34.0-46.0) % MCH (25.0-35.0) pg MCHC (31.0-37.0) g/dL RDW (11.5-15.5) % Neutrophils # (Manual) (1.3-7.7) k/uL Lymphocytes # (Manual) (1.0-4.8) k/uL Nucleated RBCs (0-0) /100 WBC Sodium (137-145) mmol/L Chloride (98-107) mmol/L Carbon Dioxide (22-30) mmol/L BUN (7-17) mg/dL Creatinine (0.52-1.04) mg/dL Glucose (74-99) mg/dL POC Glucose (mg/dL) 193 H 139 H 129 H (70-110) mg/dL Magnesium (1.6-2.3) mg/dL 11/02/21 11/02/21 11/02/21 Range/Units 05:17 05:17 06:02 RBC 3.22 L (3.80-5.40) m/uL Hgb 7.4 L (11.4-16.0) gm/dL Hct 26.5 L (34.0-46.0) % MCH 23.0 L (25.0-35.0) pg MCHC 28.0 L (31.0-37.0) g/dL RDW 18.7 H (11.5-15.5) % Neutrophils # (Manual) 9.22 H (1.3-7.7) k/uL Lymphocytes # (Manual) 0.29 L (1.0-4.8) k/uL Nucleated RBCs 38 H (0-0) /100 WBC Sodium 134 L (137-145) mmol/L Chloride 94 L (98-107) mmol/L Carbon Dioxide 38 H (22-30) mmol/L BUN 51 H (7-17) mg/dL Creatinine 1.21 H (0.52-1.04) mg/dL Glucose 115 H (74-99) mg/dL POC Glucose (mg/dL) 141 H (70-110) mg/dL Magnesium 2.4 H (1.6-2.3) mg/dL Assessment and Plan Assessment: Acute diastolic CHF with ejection fraction 55-60% Acute hypoxic respiratory failure on chronic respiratory failure COPD exacerbation Paroxysmal atrial fibrillation with RVR Anemia we will need outpatient endoscopy Plan: This is a pleasant 71 years old female who presents with COPD and CHF. Continue with IV Lasix, Continue with IV Solu-Medrol Continue with Cardizem drip and Eliquis Follow-up with pulmonary consult. Check chest x-ray in the morning Labs and medication were reviewed.. Continue same treatment. Continue with symptomatic treatment. Resume home medication. Monitor lytes and vitals. DVT and GI prophylaxis. Further recommendationsas per clinical course of the patient DVT prophylaxis: Eliquis GI Prophylaxis: ppi PT/OT: Pending Prognosis is guarded
--- NOTE | 2021-11-02 12:49 | P.PN ---
Subjective Progress Note Date: 11/02/21 Principal diagnosis: Acute on chronic hypoxic respiratory failure This is a 71-year-old female with history of severe persistent asthma, normally sees Dr. robertson for her severe asthma. Patient is O2 dependent, she is also prednisone dependent, maintained on 20 mg of prednisone daily for many years. Used to be on 10 mg daily until recently and the dose was increased. Patient c alled the office recently, and she was complaining of intermittent cough wheezing and shortness of breath, and a prescription was called in for the patient including a prednisone burst and taper, along with antibiotics. She felt better when she was on a higher dose of prednisone, however as she went back to her usual maintenance dose, patient started having more and more shortness of breath. Patient came into the ER yesterday, admitted, chest x-ray is suggestive of mild interstitial edema and small pleural effusion, she was also noted to have hemoglobin of 6.7. Patient had extremely generalized weakness and shortness of breath. Patient received a unit of packed RBCs since admission, and her hemoglobin today is up to 7.2. In addition to all of this, the patient developed atrial fibrillation with RVR, she is known to have history of paroxysmal atrial fibrillation. Patient was placed on Cardizem drip at 10 mg per hour, she is normally maintained on flecainide. And she is also on eliquis. Patient was transferred to the ICU as an overflow, she was supposed to go to a monitor bed on selective, but no beds were available, and she is now in the ICU as an overflow. Her cardiac history is significant for history of paroxysmal atrial fibrillation, history of congestive heart failure, she does have good LV function and ejection fraction was 60%. She had a grade 2 diastolic dysfunction with mild mitral and tricuspid regurgitation. I saw the patient in the ICU, recommended increasing her Cardizem to 10 mg/h and recommended cardiac evaluation. Patient is back on her usual bronchodilators and IV Solu-Medrol. She is also on antibiotics. Patient was reevaluated today on 10/30/21, continues to have shortness of breath, continues to have atrial fibrillation with RVR, rate is 120. Patient has dyspnea with any activity. She is maximized on bronchodilators, she is being followed by cardiology for her atrial fibrillation/RVR, Remains on Lasix at 40 mg IV push every 12 hours, remains on flecainide. She is on methylprednisolone 40 mg a push every 8 hours for her underlying severe asthma. Reevaluated today on 11/01/21, patient is improving, her atrial fibrillation seems to be better controlled nonetheless she remains on Cardizem drip at 5 mg per hour. Patient has less shortness of breath, but she had significant symptoms of cough last night. Chest x-ray is still suggestive of mild interstitial edema. Patient remains on diuretics. She remains on bronchodilators and she remains on methylprednisolone. Not quite ready for discharge planning. Labs today were reviewed, bicarb is 35 BUN is 53 creatinine 1.42 Reevaluated today on 11/02/21, patient is improving slightly compared to the last couple of days, heart rate seems to be better controlled. Remains on br onchodilators, remains on diuretics, remains on steroids, remains on eliquis, and her IV Cardizem is transitioned now to oral diltiazem 180 mg daily. Remains on flecainide improvement is noted, but not quite back to her baseline. However I believe the patient could be seriously considered for discharge planning in the next 24 hours. CBC is relatively normal except for hemoglobin of 7.4 lites are normal, BUN is 51 creatinine 1.21 Objective - Vital Signs Vital signs: Vital Signs Temp 97.6 F 11/02/21 08:00 Pulse 96 11/02/21 12:16 Resp 21 11/02/21 08:00 BP 120/77 11/02/21 08:00 Pulse Ox 94 L 11/02/21 08:00 FiO2 36 10/29/21 00:53 Intake & Output 11/01/21 11/02/21 11/02/21 18:59 06:59 18:59 Intake Total 833.5 Output Total 700 Balance 133.5 Intake: Intake, IV Titration 113.5 Amount Diltiazem 125 mg In 113.5 Sodium Chloride 0.9% 100 ml @ 10 MG/HR 10 mls/hr IV .[id number] [facility] Rx#: [id number] Oral 720 Output: Urine 700 Other: Voiding Method Toilet Toilet Toilet - Exam Physical Exam: Revealed 71-year-old female in no distress, on 4 L nasal cannula Head: Atraumatic, normocephalic. Cushingoid. HEENT:[Neck is supple.] [No neck masses.] [No thyromegaly.] [No JVD.] Chest: Symmetrical chest expansion, diminished breath sound bilaterally no rhonchi and no wheezes. Cardiac Exam: Irregular irregular rhythm, 2/6 systolic murmur thought the precordium, no S3 gallop. Abdomen: [Soft, nontender, no megaly, no rebound, no guarding, normal bowel sounds.] Extremities: [No clubbing, no edema, no cyanosis.] Good pulses bilaterally. Neurological Exam: Alert oriented 3, no gross focal neurologic deficits. Psychiatric: Normal mood, affect and normal mental status exam. Skin: No rashes. - Labs CBC & Chem 7: 11/02/21 05:17 11/02/21 05:17 Labs: Abnormal Lab Results - Last 24 Hours (Table) 11/01/21 11/01/21 11/02/21 Range/Units 16:39 19:56 05:17 RBC (3.80-5.40) m/uL Hgb (11.4-16.0) gm/dL Hct (34.0-46.0) % MCH (25.0-35.0) pg MCHC (31.0-37.0) g/dL RDW (11.5-15.5) % Neutrophils # (Manual) (1.3-7.7) k/uL Lymphocytes # (Manual) (1.0-4.8) k/uL Nucleated RBCs (0-0) /100 WBC Sodium 134 L (137-145) mmol/L Chloride 94 L (98-107) mmol/L Carbon Dioxide 38 H (22-30) mmol/L BUN 51 H (7-17) mg/dL Creatinine 1.21 H (0.52-1.04) mg/dL Glucose 115 H (74-99) mg/dL POC Glucose (mg/dL) 139 H 129 H (70-110) mg/dL Magnesium 2.4 H (1.6-2.3) mg/dL 11/02/21 11/02/21 11/02/21 Range/Units 05:17 06:02 11:32 RBC 3.22 L (3.80-5.40) m/uL Hgb 7.4 L (11.4-16.0) gm/dL Hct 26.5 L (34.0-46.0) % MCH 23.0 L (25.0-35.0) pg MCHC 28.0 L (31.0-37.0) g/dL RDW 18.7 H (11.5-15.5) % Neutrophils # (Manual) 9.22 H (1.3-7.7) k/uL Lymphocytes # (Manual) 0.29 L (1.0-4.8) k/uL Nucleated RBCs 38 H (0-0) /100 WBC Sodium (137-145) mmol/L Chloride (98-107) mmol/L Carbon Dioxide (22-30) mmol/L BUN (7-17) mg/dL Creatinine (0.52-1.04) mg/dL Glucose (74-99) mg/dL POC Glucose (mg/dL) 141 H 139 H (70-110) mg/dL Magnesium (1.6-2.3) mg/dL Assessment and Plan Assessment: Impression: Acute on chronic hypoxic respiratory failure Acute diastolic congestive heart failure Paroxysmal atrial fibrillation with RVR Acute anemia, suspect chronic GI blood losses, patient had negative Hemoccult on this presentation. Acute exacerbation of severe persistent asthma. History of diverticular perforation requiring surgery Compression fractures T7 and T12 and L2 spine. Chronic low back pain. History of nephrolithiasis. History of osteoporosis. History of splenectomy. Recommendation: Continue present treatment plan and continue diltiazem orally. Continue flecainide Continue updrafts Continue Lasix Continue Solu-Medrol Continue eliquis Continue telemetry. Continue Symbicort GI and DVT prophylaxis. Possible discharge planning in the next 24 hours. And follow-up with Dr. robertson post discharge Time with Patient: Less than 30
[2021-11-02 17:11] LABS: Glucose,Whole Blood 137 mg/dL (70-110)
[2021-11-02 19:49] LABS: Glucose,Whole Blood 162 mg/dL (70-110)
[2021-11-02] MEDS: MONTELUKAST 10 MG TAB PO SCH (20:44)
[2021-11-03] MEDS: IPRATROPIUM-ALBUTEROL 3 ML NEB INHALATION SCH ×5 (03:47→21:01)
[2021-11-03 05:53] LABS: Glucose,Whole Blood 214 mg/dL (70-110)
[2021-11-03] MEDS: INSULIN ASPART (NovoLOG) 100 UNIT/ML VIAL SQ SCH ×4 (06:22→19:43)
[2021-11-03] MEDS: guaiFENesin-DM 100-10MG/5ML 10 ML CUP PO SCH ×4 (06:22→23:30)
[2021-11-03] MEDS: SYMBICORT 160-4.5 MCG INHALER INHALATION SCH ×2 (07:30→21:01)
--- NOTE | 2021-11-03 07:30 | XR ---
EXAMINATION TYPE: XR chest 1V DATE OF EXAM: 11/03/2021 COMPARISON: 10/31/2021 INDICATION: Short of breath TECHNIQUE: Single frontal view of the chest is obtained. FINDINGS: The heart size is mildly prominent. The pulmonary vasculature is somewhat prominent. Mild diffuse increased lung markings are present. Correlate for pulmonary edema. Atelectasis could be considered. Follow-up is recommended. IMPRESSION: 1. Local consideration for congestive heart failure is recommended. Continued follow-up is recommende d
[2021-11-03 08:04] LABS: Anisocytosis Slight; HCT 27.2 % (34.0-46.0); HGB 7.7 gm/dL (11.4-16.0); Hypochromasia Marked; MCH 23.6 pg (25.0-35.0); MCHC 28.4 g/dL (31.0-37.0); MCV 83.2 fL (80.0-100.0); Mean Platelet Volume 8.5; Platelet Count 373 k/uL (150-450); Poikilocytosis Slight; RBC 3.27 m/uL (3.80-5.40); RDW 18.7 % (11.5-15.5)
[2021-11-03] MEDS: CALCIUM CARB-VIT D 500 MG-5 MCG TAB PO SCH (08:14)
[2021-11-03] MEDS: CHOLECALCIFEROL 25 MCG (1000 IU) TABLET PO SCH (08:14)
[2021-11-03] MEDS: METOPROLOL TARTRATE 25 MG TAB PO SCH ×3 (08:14→23:30)
[2021-11-03] MEDS: MAGNESIUM OXIDE 400 MG TAB PO SCH (08:14)
[2021-11-03] MEDS: VITAMIN E (DL,TOCOPHERYL ACET) 400 UNIT (180 MG) CAP PO SCH (08:14)
[2021-11-03] MEDS: APIXABAN 5 MG TAB PO SCH ×2 (08:14→20:11)
[2021-11-03] MEDS: DILTIAZEM CD 180 MG CAP.ER.24H PO SCH (08:14)
[2021-11-03] MEDS: DOCUSATE 100 MG CAP PO SCH ×2 (08:14→20:11)
[2021-11-03] MEDS: FLECAINIDE 50 MG TAB PO SCH ×2 (08:14→20:11)
[2021-11-03] MEDS: methylPREDNISolone SOD SUCCI 40 MG/ML 1 ML VIAL IV SCH ×3 (08:14→23:30)
[2021-11-03] MEDS: FOLIC ACID 1 MG TAB PO SCH (08:14)
[2021-11-03] MEDS: CALCITONIN 200 USP/1 NASAL SPRAY 3.7ML BTL NASAL SCH (08:15)
[2021-11-03] MEDS: FLUTICASONE 50MCG/SPRAY NASAL 16GM EA NOSTRIL SCH (08:16)
[2021-11-03] MEDS: PANTOPRAZOLE 40 MG/10 ML VIAL IVP SCH (08:16)
[2021-11-03] MEDS: polyethylene glycoL 3350 17 GM POWD.PACK PO SCH (08:16)
[2021-11-03 08:23] LABS: Calcium 8.5 mg/dL (8.4-10.2); Magnesium 2.6 mg/dL (1.6-2.3); Potassium 4.7 mmol/L (3.5-5.1)
[2021-11-03 09:50] LABS: Neutrophils % (M) 94 %; Nucleated Red Blood Cells 31 /100 WBC (0-0); Total Cells Counted 200
[2021-11-03 09:51] LABS: Lymphocytes # (M) 0.42 k/uL (1.0-4.8); Monocytes # (M) 0.21 k/uL (0-1.0); Neutrophils # (M) 9.78 k/uL (1.3-7.7); Target Cells Present; WBC 10.4 k/uL (3.8-10.6)
--- NOTE | 2021-11-03 11:19 | P.PN ---
Subjective This is a pleasant 71 years old male with multiple medical problems. Presents because of dyspnea 2 weeks thought secondary to diastolic CHF with e chocardiogram showing ejection fraction 55-60% with some evidence of acute COPD exacerbation patient is being followed closely by pulmonary and cardiology services. And he is currently on IV Lasix 40 mg once daily and Solu-Medrol with lower the dose 60 down to 40 mg today. Patient is still complaining from dyspnea with a dry cough. He is on 4 L oxygen at home which is same as here. But he was started on liquids in the hospital for new onset A. fib with RVR, present on admission. He remains on Cardizem drip at 15 mg/h. Also he is on flecainide with build automation engineer following her closely. A still tachycardic around 107. He is afebrile. WBC is 13,000, hemoglobin 7.8 and creatinine 1.1. Chest x-ray showed cardiomegaly with mild pulmonary congestion Surgical team were consulted for anemia and the recommended outpatient endoscopy 11/01/2021 Patient is awake and alert, patient has a lot of cough overnight and he has sleeping difficulties. His been followed closely by pulmonary and cardiology team. He was still on Cardizem drip this morning. Also he is on Eliquis 5 mg. Creatinine went up 1.4 was likely secondary to diuresis, he is on IV Lasix 40 mg daily. Also escaped on Solu-Medrol 40 mg. Photography And Prints Curator added several inotropic medication including metoprolol 25 mg twice a day, Cardizem 180 mg daily and increased dose of flecainide to 150 mg. Heart rate is better controlled in 60s today. He is on 4 L oxygen at home which is the same as here. Hemoglobin 7.8 surgery team recommended on endoscopy which can be done as an outpatient. Surgicel already signed off. He is on a Protonix and Eliquis 11/02/2021 Patient awake and alert, she still has coughing and she still has bilateral leg edema and basal crepitation although it is mild. Also patient is still complaining of from some exertional dyspnea although she remains on 4 L oxygen which is her home dose. Her cough is better after starting on Robitussin yesterday. She still tachypneic but slightly tachycardic. Chest x-ray showing mild pulmonary congestion and she is on IV Lasix. Also she is on home dose of Eliquis 5 mg and continued on flecainide, metoprolol and Cardizem 180 mg daily for her paroxysmal A. fib and RVR. Creatinine slightly better today 1.2. We will check chest x-ray tomorrow as well as lab. Patient will need endoscopy as an outpatient for her anemia with surgery team 11/04/2011 Patient today still with shortness of breath and chest tightness with decreased air entry on both sides. Chest x-ray showing possible CHF. Patient was placed on fluid restriction and IV Lasix was adjusted to 20 mg twice daily creatinine today is 1.0. Hemoglobin 7.7 and WBC 10.4. She still saturating 90s on 4 L/m. Slightly tachypneic. She remains on home dose of Eliquis, Solu-Medrol 40 mg. Objective - Vital Signs Vital signs: Vital Signs Temp 97.6 F 11/03/21 08:00 Pulse 97 11/03/21 08:00 Resp 20 11/03/21 08:00 BP 118/74 11/03/21 08:00 Pulse Ox 95 11/03/21 08:00 FiO2 36 10/29/21 00:53 Intake & Output 11/02/21 11/03/21 11/03/21 18:59 06:59 18:59 Weight 85.7 kg Other: Voiding Method Toilet Toilet - Exam GENERAL: The patient is alert and oriented x3, not in any acute distress. Well developed, well nourished. HEENT: Pupils are round and equally reacting to light. EOMI. No scleral icterus. No conjunctival pallor. Normocephalic, atraumatic. No pharyngeal erythema. No thyromegaly. CARDIOVASCULAR: S1 and S2 present. No murmurs, rubs, or gallops. PULMONARY: Chest is clear to auscultation, no wheezing or crackles. ABDOMEN: Soft, nontender, nondistended, normoactive bowel sounds. No palpable organomegaly. MUSCULOSKELETAL: No joint swelling or deformity. EXTREMITIES: No cyanosis, clubbing, or pedal edema. NEUROLOGICAL: Gross neurological examination did not reveal any focal deficits. SKIN: No rashes. no petechiae. - Labs CBC & Chem 7: 11/03/21 07:27 11/03/21 07:27 Labs: Abnormal Lab Results - Last 24 Hours (Table) 11/02/21 11/02/21 11/02/21 Range/Units 11:32 16:38 19:46 Carbon Dioxide (22-30) mmol/L BUN (7-17) mg/dL Creatinine (0.52-1.04) mg/dL Glucose (74-99) mg/dL POC Glucose (mg/dL) 139 H 137 H 162 H (70-110) mg/dL Magnesium (1.6-2.3) mg/dL 11/03/21 11/03/21 Range/Units 05:51 07:27 Carbon Dioxide 37 H (22-30) mmol/L BUN 49 H (7-17) mg/dL Creatinine 1.09 H (0.52-1.04) mg/dL Glucose 136 H (74-99) mg/dL POC Glucose (mg/dL) 214 H (70-110) mg/dL Magnesium 2.6 H (1.6-2.3) mg/dL Assessment and Plan Assessment: Acute diastolic CHF with ejection fraction 55-60% Acute hypoxic respiratory failure on chronic respiratory failure COPD exacerbation Paroxysmal atrial fibrillation with RVR Anemia we will need outpatient endoscopy Plan: This is a pleasant 71 years old female who presents with COPD and CHF. Continue with IV Lasix, adjust the dose to 20 mg twice a day Continue with IV Solu-Medrol Continue with Cardizem drip and Eliquis Follow-up with pulmonary consult. Check chest x-ray in the morning Labs and medication were reviewed.. Continue same treatment. Continue with symptomatic treatment. Resume home medication. Monitor lytes and vitals. DVT and GI prophylaxis. Further recommendationsas per clinical course of the patient DVT prophylaxis: Eliquis GI Prophylaxis: ppi PT/OT: Pending Prognosis is guarded
[2021-11-03 11:38] LABS: Glucose,Whole Blood 127 mg/dL (70-110)
[2021-11-03] MEDS: FUROSEMIDE 10 MG/ML 2 ML VIAL IV SCH ×2 (12:18→20:11)
--- NOTE | 2021-11-03 12:46 | P.PN ---
Subjective Progress Note Date: 11/03/21 Principal diagnosis: Acute on chronic hypoxic respiratory failure This is a 71-year-old female with history of severe persistent asthma, normally sees Dr. robertson for her severe asthma. Patient is O2 dependent, she is also prednisone dependent, maintained on 20 mg of prednisone daily for many years. Used to be on 10 mg daily until recently and the dose was increased. Patient c alled the office recently, and she was complaining of intermittent cough wheezing and shortness of breath, and a prescription was called in for the patient including a prednisone burst and taper, along with antibiotics. She felt better when she was on a higher dose of prednisone, however as she went back to her usual maintenance dose, patient started having more and more shortness of breath. Patient came into the ER yesterday, admitted, chest x-ray is suggestive of mild interstitial edema and small pleural effusion, she was also noted to have hemoglobin of 6.7. Patient had extremely generalized weakness and shortness of breath. Patient received a unit of packed RBCs since admission, and her hemoglobin today is up to 7.2. In addition to all of this, the patient developed atrial fibrillation with RVR, she is known to have history of paroxysmal atrial fibrillation. Patient was placed on Cardizem drip at 10 mg per hour, she is normally maintained on flecainide. And she is also on eliquis. Patient was transferred to the ICU as an overflow, she was supposed to go to a monitor bed on selective, but no beds were available, and she is now in the ICU as an overflow. Her cardiac history is significant for history of paroxysmal atrial fibrillation, history of congestive heart failure, she does have good LV function and ejection fraction was 60%. She had a grade 2 diastolic dysfunction with mild mitral and tricuspid regurgitation. I saw the patient in the ICU, recommended increasing her Cardizem to 10 mg/h and recommended cardiac evaluation. Patient is back on her usual bronchodilators and IV Solu-Medrol. She is also on antibiotics. Patient was reevaluated today on 10/30/21, continues to have shortness of breath, continues to have atrial fibrillation with RVR, rate is 120. Patient has dyspnea with any activity. She is maximized on bronchodilators, she is being followed by cardiology for her atrial fibrillation/RVR, Remains on Lasix at 40 mg IV push every 12 hours, remains on flecainide. She is on methylprednisolone 40 mg a push every 8 hours for her underlying severe asthma. Reevaluated today on 11/01/21, patient is improving, her atrial fibrillation seems to be better controlled nonetheless she remains on Cardizem drip at 5 mg per hour. Patient has less shortness of breath, but she had significant symptoms of cough last night. Chest x-ray is still suggestive of mild interstitial edema. Patient remains on diuretics. She remains on bronchodilators and she remains on methylprednisolone. Not quite ready for discharge planning. Labs today were reviewed, bicarb is 35 BUN is 53 creatinine 1.42 Reevaluated today on 11/02/21, patient is improving slightly compared to the last couple of days, heart rate seems to be better controlled. Remains on br onchodilators, remains on diuretics, remains on steroids, remains on eliquis, and her IV Cardizem is transitioned now to oral diltiazem 180 mg daily. Remains on flecainide improvement is noted, but not quite back to her baseline. However I believe the patient could be seriously considered for discharge planning in the next 24 hours. CBC is relatively normal except for hemoglobin of 7.4 lites are normal, BUN is 51 creatinine 1.21 Reevaluated today on 11/03/21, patient continues to do poorly, continues to have shortness of breath with any activity, no cough no fever no chills, no hemoptysis. Chest x-ray again showed evidence of interstitial edema and I'm recommending that we increase her diuretics. Her heart rate seems to be better controlled. Clearly the patient has severe underlying COPD/asthma and intermittent episodes of congestive heart failure. Objective - Vital Signs Vital signs: Vital Signs Temp 97.6 F 11/03/21 08:00 Pulse 90 11/03/21 12:00 Resp 16 11/03/21 12:00 BP 103/61 11/03/21 12:00 Pulse Ox 94 L 11/03/21 12:00 FiO2 36 10/29/21 00:53 Intake & Output 11/02/21 11/03/21 11/03/21 18:59 06:59 18:59 Weight 85.7 kg Other: Voiding Method Toilet Toilet Toilet - Exam Physical Exam: Revealed 71-year-old female in no distress, on 4 L nasal cannula Head: Atraumatic, normocephalic. Cushingoid. HEENT:[Neck is supple.] [No neck masses.] [No thyromegaly.] [No JVD.] Chest: Symmetrical chest expansion, crackles at the bases bilaterally Cardiac Exam: Irregular irregular rhythm, 2/6 systolic murmur thought the precordium, no S3 gallop. Abdomen: [Soft, nontender, no megaly, no rebound, no guarding, normal bowel sounds.] Extremities: [No clubbing, no edema, no cyanosis.] Good pulses bilaterally. Neurological Exam: Alert oriented 3, no gross focal neurologic deficits. Psychiatric: Normal mood, affect and normal mental status exam. Skin: No rashes. - Labs CBC & Chem 7: 11/03/21 07:27 11/03/21 07: Labs: Abnormal Lab Results - Last 24 Hours (Table) 11/02/21 11/02/21 11/03/21 Range/Units 16:38 19:46 05:51 RBC (3.80-5.40) m/uL Hgb (11.4-16.0) gm/dL Hct (34.0-46.0) % MCH (25.0-35.0) pg MCHC (31.0-37.0) g/dL RDW (11.5-15.5) % Neutrophils # (Manual) (1.3-7.7) k/uL Lymphocytes # (Manual) (1.0-4.8) k/uL Nucleated RBCs (0-0) /100 WBC Carbon Dioxide (22-30) mmol/L BUN (7-17) mg/dL Creatinine (0.52-1.04) mg/dL Glucose (74-99) mg/dL POC Glucose (mg/dL) 137 H 162 H 214 H (70-110) mg/dL Magnesium (1.6-2.3) mg/dL 11/03/21 11/03/21 11/03/21 Range/Units 07:27 07:27 11:37 RBC 3.27 L (3.80-5.40) m/uL Hgb 7.7 L (11.4-16.0) gm/dL Hct 27.2 L (34.0-46.0) % MCH 23.6 L (25.0-35.0) pg MCHC 28.4 L (31.0-37.0) g/dL RDW 18.7 H (11.5-15.5) % Neutrophils # (Manual) 9.78 H (1.3-7.7) k/uL Lymphocytes # (Manual) 0.42 L (1.0-4.8) k/uL Nucleated RBCs 31 H (0-0) /100 WBC Carbon Dioxide 37 H (22-30) mmol/L BUN 49 H (7-17) mg/dL Creatinine 1.09 H (0.52-1.04) mg/dL Glucose 136 H (74-99) mg/dL POC Glucose (mg/dL) 127 H (70-110) mg/dL Magnesium 2.6 H (1.6-2.3) mg/dL Assessment and Plan Assessment: Impression: Acute on chronic hypoxic respiratory failure Acute diastolic congestive heart failure Paroxysmal atrial fibrillation with RVR Acute anemia, suspect chronic GI blood losses, patient had negative Hemoccult on this presentation. Acute exacerbation of severe persistent asthma. History of diverticular perforation requiring surgery Compression fractures T7 and T12 and L2 spine. Chronic low back pain. History of nephrolithiasis. History of osteoporosis. History of splenectomy. Recommendation: Increased diuresis. Continue flecainide Continue updrafts Continue Solu-Medrol Continue eliquis Continue telemetry. Continue Symbicort GI and DVT prophylaxis. Not ready for discharge planning His is extremely poor and guarded Time with Patient: Less than 30
--- NOTE | 2021-11-03 14:46 | P.PN ---
Subjective This is a 71-year-old female past medical history of paroxysmal atrial fibrillation on Eliquis, asthma requiring home oxygen, congestive heart failure, chronic kidney disease. She follows in the office with Dr. Tinajero. We have seen the patient in consultation for atrial fibrillation with rapid ventricular response, congestive heart failure. She presents emergency department for increased shortness of breath and chronic lower extremity edema. Patient admitted to the hospital with anemia, exacerbation of asthma, and heart failure exacerbation. Patient's initial hemoglobin was 6.7 she received 1 unit of blood today she is 7.2. Last night patient went into atrial fibrillation with rapid ventricular rate. Troponins negative 3. Patient is on Eliquis for anticoagulation at home. She is on Cardizem gtt. Her flecainide was increased to 100 mg twice a day. Echocardiogram revealed an EF of 5055 %, both atria are enlarged. Mild to moderate mitral regurgitation 11/02/2021 Patient seen and examined at bedside, no acute distress. She continues to have shortness of breath, Her shortness of breath has improved. Her lower extremity edema has improved. Telemetry reviewed Patient continues to be in atrial fibri llation and heart rates 90s-low 100s. Her flecainide was increased to 150mg BID yesterday. PO Cardizem was resumed and IV Cardizem stopped. Meds: Eliquis 5 mg twice a day, Cardizem 180mg Dialy, flecainide 150 mg twice a day, metoprolol 25 mg TID. Patient is also on IV steroids and duonebs Labs: Sodium 134, potassium 43, BUN 51, serum creatinine 1.21 11/03 Patient seen and examined. She feels okay seated however when she gets up to do something she is still very short of breath. Her flecainide was increased 150 twice a day however still remains in atrial flutter with heart rates 90-100. Denies any chest pain or pressure. VITALS: Reviewed GENERAL: Some shortness of breath, in no acute distress. NECK: Supple without JVD LUNGS: Breath sounds expiratory wheezing noted, mild crackles in the bases to auscultation bilaterally. Respiration equal and unlabored. No wheezes, rales or rhonchi. HEART: Irregular, rate and rhythm systolic murmur at apex. No rubs or gallops. S1 and S2 heard. EXTREMITIES: Normal range of motion, mild bilateral edema R >L No clubbing or cyanosis. Peripheral pulses intact. ASSESSMENT Paroxysmal atrial fibrillation with RVR Eliquis Typical atrial flutter Asthma exacerbation Acute on chronic heart failure with preserved ejection fraction Acute on Chronic kidney disease, likely related to IV diuresis, improving PLAN Continue Cardizem 180mg daily, flecainide 150mg BID, Metoprolol tartrate 25mg TID. Continue Eliquis Continue with telemetry monitoring Patient may benefit from cardioversion if continues to be symptomatic without significant rate and rhythm control. Possible trial cardioversions on Friday if remains in atrial flutter with elevated heart rates. Objective - Vital Signs Vital signs: Vital Signs Temp 97.6 F 11/03/21 08:00 Pulse 90 11/03/21 12:00 Resp 16 11/03/21 12:00 BP 103/61 11/03/21 12:00 Pulse Ox 94 L 11/03/21 12:00 FiO2 36 10/29/21 00:53 Intake & Output 11/02/21 11/03/21 11/03/21 18:59 06:59 18:59 Weight 85.7 kg Other: Voiding Method Toilet Toilet Toilet - Labs CBC & Chem 7: 11/03/21 07:27 11/03/21 07:27 Labs: Abnormal Lab Results - Last 24 Hours (Table) 11/02/21 11/02/21 11/03/21 Range/Units 16:38 19:46 05:51 RBC (3.80-5.40) m/uL Hgb (11.4-16.0) gm/dL Hct (34.0-46.0) % MCH (25.0-35.0) pg MCHC (31.0-37.0) g/dL RDW (11.5-15.5) % Neutrophils # (Manual) (1.3-7.7) k/uL Lymphocytes # (Manual) (1.0-4.8) k/uL Nucleated RBCs (0-0) /100 WBC Carbon Dioxide (22-30) mmol/L BUN (7-17) mg/dL Creatinine (0.52-1.04) mg/dL Glucose (74-99) mg/dL POC Glucose (mg/dL) 137 H 162 H 214 H (70-110) mg/dL Magnesium (1.6-2.3) mg/dL 11/03/21 11/03/21 11/03/21 Range/Units 07:27 07:27 11:37 RBC 3.27 L (3.80-5.40) m/uL Hgb 7.7 L (11.4-16.0) gm/dL Hct 27.2 L (34.0-46.0) % MCH 23.6 L (25.0-35.0) pg MCHC 28.4 L (31.0-37.0) g/dL RDW 18.7 H (11.5-15.5) % Neutrophils # (Manual) 9.78 H (1.3-7.7) k/uL Lymphocytes # (Manual) 0.42 L (1.0-4.8) k/uL Nucleated RBCs 31 H (0-0) /100 WBC Carbon Dioxide 37 H (22-30) mmol/L BUN 49 H (7-17) mg/dL Creatinine 1.09 H (0.52-1.04) mg/dL Glucose 136 H (74-99) mg/dL POC Glucose (mg/dL) 127 H (70-110) mg/dL Magnesium 2.6 H (1.6-2.3) mg/dL
[2021-11-03 16:15] LABS: Glucose,Whole Blood 169 mg/dL (70-110)
[2021-11-03 19:42] LABS: Glucose,Whole Blood 126 mg/dL (70-110)
[2021-11-03] MEDS: MONTELUKAST 10 MG TAB PO SCH (20:11)
[2021-11-04] MEDS: IPRATROPIUM-ALBUTEROL 3 ML NEB INHALATION SCH ×8 (00:33→21:46)
[2021-11-04 05:57] LABS: Glucose,Whole Blood 132 mg/dL (70-110)
[2021-11-04] MEDS: INSULIN ASPART (NovoLOG) 100 UNIT/ML VIAL SQ SCH ×4 (06:21→20:02)
[2021-11-04] MEDS: guaiFENesin-DM 100-10MG/5ML 10 ML CUP PO SCH ×4 (06:21→23:01)
[2021-11-04] MEDS: SYMBICORT 160-4.5 MCG INHALER INHALATION SCH ×3 (08:04→21:47)
[2021-11-04] MEDS: PANTOPRAZOLE 40 MG/10 ML VIAL IVP SCH (08:19)
[2021-11-04] MEDS: FUROSEMIDE 10 MG/ML 2 ML VIAL IV SCH (08:19)
[2021-11-04] MEDS: methylPREDNISolone SOD SUCCI 40 MG/ML 1 ML VIAL IV SCH (08:19)
[2021-11-04] MEDS: CALCIUM CARB-VIT D 500 MG-5 MCG TAB PO SCH (08:21)
[2021-11-04] MEDS: DILTIAZEM CD 180 MG CAP.ER.24H PO SCH (08:21)
[2021-11-04] MEDS: MAGNESIUM OXIDE 400 MG TAB PO SCH (08:21)
[2021-11-04] MEDS: METOPROLOL TARTRATE 25 MG TAB PO SCH ×3 (08:21→20:01)
[2021-11-04] MEDS: DOCUSATE 100 MG CAP PO SCH ×2 (08:21→20:01)
[2021-11-04] MEDS: FOLIC ACID 1 MG TAB PO SCH (08:21)
[2021-11-04] MEDS: FLECAINIDE 50 MG TAB PO SCH ×2 (08:21→20:01)
[2021-11-04] MEDS: FLUTICASONE 50MCG/SPRAY NASAL 16GM EA NOSTRIL SCH (08:22)
[2021-11-04] MEDS: APIXABAN 5 MG TAB PO SCH ×2 (08:22→20:01)
[2021-11-04] MEDS: CALCITONIN 200 USP/1 NASAL SPRAY 3.7ML BTL NASAL SCH (08:22)
[2021-11-04] MEDS: VITAMIN E (DL,TOCOPHERYL ACET) 400 UNIT (180 MG) CAP PO SCH (08:23)
[2021-11-04] MEDS: polyethylene glycoL 3350 17 GM POWD.PACK PO SCH (08:23)
[2021-11-04] MEDS: CHOLECALCIFEROL 25 MCG (1000 IU) TABLET PO SCH (08:23)
[2021-11-04 08:28] LABS: % Iron Saturation 2.1 (12.00-45.00); Ferritin 17.6 ng/mL (10.0-291.0)
[2021-11-04 11:38] LABS: Glucose,Whole Blood 122 mg/dL (70-110)
[2021-11-04] MEDS: predniSONE 20 MG TAB PO SCH (11:43)
--- NOTE | 2021-11-04 12:40 | P.PN ---
Subjective Progress Note Date: 11/04/21 Principal diagnosis: Acute on chronic hypoxic respiratory failure This is a 71-year-old female with history of severe persistent asthma, normally sees Dr. robertson for her severe asthma. Patient is O2 dependent, she is also prednisone dependent, maintained on 20 mg of prednisone daily for many years. Used to be on 10 mg daily until recently and the dose was increased. Patient c alled the office recently, and she was complaining of intermittent cough wheezing and shortness of breath, and a prescription was called in for the patient including a prednisone burst and taper, along with antibiotics. She felt better when she was on a higher dose of prednisone, however as she went back to her usual maintenance dose, patient started having more and more shortness of breath. Patient came into the ER yesterday, admitted, chest x-ray is suggestive of mild interstitial edema and small pleural effusion, she was also noted to have hemoglobin of 6.7. Patient had extremely generalized weakness and shortness of breath. Patient received a unit of packed RBCs since admission, and her hemoglobin today is up to 7.2. In addition to all of this, the patient developed atrial fibrillation with RVR, she is known to have history of paroxysmal atrial fibrillation. Patient was placed on Cardizem drip at 10 mg per hour, she is normally maintained on flecainide. And she is also on eliquis. Patient was transferred to the ICU as an overflow, she was supposed to go to a monitor bed on selective, but no beds were available, and she is now in the ICU as an overflow. Her cardiac history is significant for history of paroxysmal atrial fibrillation, history of congestive heart failure, she does have good LV function and ejection fraction was 60%. She had a grade 2 diastolic dysfunction with mild mitral and tricuspid regurgitation. I saw the patient in the ICU, recommended increasing her Cardizem to 10 mg/h and recommended cardiac evaluation. Patient is back on her usual bronchodilators and IV Solu-Medrol. She is also on antibiotics. Patient was reevaluated today on 10/30/21, continues to have shortness of breath, continues to have atrial fibrillation with RVR, rate is 120. Patient has dyspnea with any activity. She is maximized on bronchodilators, she is being followed by cardiology for her atrial fibrillation/RVR, Remains on Lasix at 40 mg IV push every 12 hours, remains on flecainide. She is on methylprednisolone 40 mg a push every 8 hours for her underlying severe asthma. Reevaluated today on 11/01/21, patient is improving, her atrial fibrillation seems to be better controlled nonetheless she remains on Cardizem drip at 5 mg per hour. Patient has less shortness of breath, but she had significant symptoms of cough last night. Chest x-ray is still suggestive of mild interstitial edema. Patient remains on diuretics. She remains on bronchodilators and she remains on methylprednisolone. Not quite ready for discharge planning. Labs today were reviewed, bicarb is 35 BUN is 53 creatinine 1.42 Reevaluated today on 11/02/21, patient is improving slightly compared to the last couple of days, heart rate seems to be better controlled. Remains on br onchodilators, remains on diuretics, remains on steroids, remains on eliquis, and her IV Cardizem is transitioned now to oral diltiazem 180 mg daily. Remains on flecainide improvement is noted, but not quite back to her baseline. However I believe the patient could be seriously considered for discharge planning in the next 24 hours. CBC is relatively normal except for hemoglobin of 7.4 lites are normal, BUN is 51 creatinine 1.21 Reevaluated today on 11/03/21, patient continues to do poorly, continues to have shortness of breath with any activity, no cough no fever no chills, no hemoptysis. Chest x-ray again showed evidence of interstitial edema and I'm recommending that we increase her diuretics. Her heart rate seems to be better controlled. Clearly the patient has severe underlying COPD/asthma and intermittent episodes of congestive heart failure. Reevaluated today on 11/04/21, patient is feeling better today, and the only change made yesterday was basically increasing her Lasix dose. Less cough and less wheezing less shortness of breath, today I recommended transitioning her IV medications to oral medication, mostly because she has no IV access, and she may not even need one. Especially with her clinical improvement. CBC is relatively normal hemoglobin remains low at 7.7. Renal profile is improving with a BUN of 49 and creatinine of 1.09 in spite of increasing the diuretics. I believe the control of her atrial fibrillation seems to be helping the most. Objective - Vital Signs Vital signs: Vital Signs Temp 97.9 F 11/04/21 08:00 Pulse 100 11/04/21 11:51 Resp 16 11/04/21 11:51 BP 111/72 11/04/21 11:51 Pulse Ox 97 11/04/21 11:51 FiO2 36 10/29/21 00:53 Intake & Output 11/03/21 11/04/21 11/04/21 18:59 06:59 18:59 Intake Total 240 Output Total 450 Balance -210 Weight 84.8 kg Intake: Oral 240 Output: Urine 450 Other: Voiding Method Toilet Toilet Toilet # Voids 700 1 # Bowel Movements 0 - Exam Physical Exam: Revealed 71-year-old female in no distress, on 4 L nasal cannula Head: Atraumatic, normocephalic. Cushingoid. HEENT:[Neck is supple.] [No neck masses.] [No thyromegaly.] [No JVD.] Chest: Symmetrical chest expansion, crackles at the bases bilaterally Cardiac Exam: Irregular irregular rhythm, 2/6 systolic murmur thought the precordium, no S3 gallop. Abdomen: [Soft, nontender, no megaly, no rebound, no guarding, normal bowel sounds.] Extremities: [No clubbing, no edema, no cyanosis.] Good pulses bilaterally. Neurological Exam: Alert oriented 3, no gross focal neurologic deficits. Psychiatric: Normal mood, affect and normal mental status exam. Skin: No rashes. - Labs CBC & Chem 7: 11/03/21 07:27 11/03/21 07:27 Labs: Abnormal Lab Results - Last 24 Hours (Table) 11/03/21 11/03/21 11/03/21 Range/Units 07:27 16:14 19:40 POC Glucose (mg/dL) 169 H 126 H (70-110) mg/dL Iron 11 L (50-170) ug/dL TIBC 514 H (228-460) ug/dL % Saturation 2.10 L (12.00-45.00) Transferrin 367.0 H (204.0-354.0) mg/dL 11/04/21 11/04/21 Range/Units 05:55 11:36 POC Glucose (mg/dL) 132 H 122 H (70-110) mg/dL Iron (50-170) ug/dL TIBC (228-460) ug/dL % Saturation (12.00-45.00) Transferrin (204.0-354.0) mg/dL Assessment and Plan Assessment: Impression: Acute on chronic hypoxic respiratory failure Acute diastolic congestive heart failure Paroxysmal atrial fibrillation with RVR Acute anemia, suspect chronic GI blood losses, patient had negative Hemoccult on this presentation. Acute exacerbation of severe persistent asthma. History of diverticular perforation requiring surgery Compression fractures T7 and T12 and L2 spine. Chronic low back pain. History of nephrolithiasis. History of osteoporosis. History of splenectomy. Recommendation: Continue diuretics, patient was transitioned to oral Lasix. Continue flecainide Continue updrafts Change Solu-Medrol to prednisone 40 mg daily Continue eliquis Continue telemetry. Continue Symbicort GI and DVT prophylaxis. Consider discharge planning in the next 24 hours Overall prognosis remains relatively poor and guarded Time with Patient: Less than 30
--- NOTE | 2021-11-04 14:26 | P.PN ---
Subjective This is a 71-year-old female past medical history of paroxysmal atrial fibrillation on Eliquis, asthma requiring home oxygen, congestive heart failure, chronic kidney disease. She follows in the office with Dr. Tinajero. We have seen the patient in consultation for atrial fibrillation with rapid ventricular response, congestive heart failure. She presents emergency department for increased shortness of breath and chronic lower extremity edema. Patient admitted to the hospital with anemia, exacerbation of asthma, and heart failure exacerbation. Patient's initial hemoglobin was 6.7 she received 1 unit of blood today she is 7.2. Last night patient went into atrial fibrillation with rapid ventricular rate. Troponins negative 3. Patient is on Eliquis for anticoagulation at home. She is on Cardizem gtt. Her flecainide was increased to 100 mg twice a day. Echocardiogram revealed an EF of 5055 %, both atria are enlarged. Mild to moderate mitral regurgitation 11/02/2021 Patient seen and examined at bedside, no acute distress. She continues to have shortness of breath, Her shortness of breath has improved. Her lower extremity edema has improved. Telemetry reviewed Patient continues to be in atrial fibri llation and heart rates 90s-low 100s. Her flecainide was increased to 150mg BID yesterday. PO Cardizem was resumed and IV Cardizem stopped. Meds: Eliquis 5 mg twice a day, Cardizem 180mg Dialy, flecainide 150 mg twice a day, metoprolol 25 mg TID. Patient is also on IV steroids and duonebs Labs: Sodium 134, potassium 43, BUN 51, serum creatinine 1.21 11/03 Patient seen and examined. She feels okay seated however when she gets up to do something she is still very short of breath. Her flecainide was increased 150 twice a day however still remains in atrial flutter with heart rates 90-100. Denies any chest pain or pressure. 11/04 Patient seen and examined. Patient states she feels much better yesterday secondary to increased diuretics. Apparently she lost IV access. Iron studies show low ferritin of 17 as well as low iron consistent with iron deficiency. She states she has never been on iron tablets previously. Remains in atrial flutter with heart rates in the 90s. VITALS: Reviewed GENERAL: Some shortness of breath, in no acute distress. NECK: Supple without JVD LUNGS: Breath sounds expiratory wheezing noted, mild crackles in the bases to auscultation bilaterally. Respiration equal and unlabored. HEART: Irregular, rate and rhythm systolic murmur at apex. No rubs or gallops. S1 and S2 heard. EXTREMITIES: Normal range of motion, mild bilateral edema R >L No clubbing or cyanosis. Peripheral pulses intact. ASSESSMENT Paroxysmal atrial fibrillation with RVR Eliquis Typical atrial flutter Asthma exacerbation Acute on chronic heart failure with preserved ejection fraction Acute on Chronic kidney disease, likely related to IV diuresis, improving Severe iron deficiency anemia PLAN Continue Cardizem 180mg daily, flecainide 150mg BID, Metoprolol tartrate 25mg TID. Continue Eliquis Continue with telemetry monitoring Appears she has been tolerating the Eliquis well at for some time however does have significant iron deficiency anemia which is likely exacerbating some of her symptoms as well. Appears to be a chronic slow bleed and has remained fairly stable. Therefore likely will be able to tolerate minimum of 1 month after cardioversion and patient will likely benefit from rhythm control. Likely cardioversion 11/05/2021. Continue with anticoagulation at this time. Start oral iron as well as IV iron given significant anemia. Further recommendations follow. Objective - Vital Signs Vital signs: Vital Signs Temp 97.9 F 11/04/21 08:00 Pulse 100 11/04/21 11:51 Resp 16 11/04/21 11:51 BP 111/72 11/04/21 11:51 Pulse Ox 97 11/04/21 11:51 FiO2 36 10/29/21 00:53 Intake & Output 11/03/21 11/04/21 11/04/21 18:59 06:59 18:59 Intake Total 420 Output Total 450 Balance -30 Weight 84.8 kg Intake: Oral 420 Output: Urine 450 Other: Voiding Method Toilet Toilet Toilet # Voids 700 1 # Bowel Movements 0 - Labs CBC & Chem 7: 11/03/21 07:27 11/03/21 07:27 Labs: Abnormal Lab Results - Last 24 Hours (Table) 11/03/21 11/03/21 11/03/21 Range/Units 07:27 16:14 19:40 POC Glucose (mg/dL) 169 H 126 H (70-110) mg/dL Iron 11 L (50-170) ug/dL TIBC 514 H (228-460) ug/dL % Saturation 2.10 L (12.00-45.00) Transferrin 367.0 H (204.0-354.0) mg/dL 11/04/21 11/04/21 Range/Units 05:55 11:36 POC Glucose (mg/dL) 132 H 122 H (70-110) mg/dL Iron (50-170) ug/dL TIBC (228-460) ug/dL % Saturation (12.00-45.00) Transferrin (204.0-354.0) mg/dL
[2021-11-04] MEDS ORDERED: SODIUM FERRIC GLUCONAT-SUCROSE 125 MG in SODIUM CHLORIDE 0.9% 100 ML IVPB ONE (15:00)
[2021-11-04] MEDS: FUROSEMIDE 20 MG TAB PO SCH (16:03)
[2021-11-04] MEDS: FERROUS SULFATE 325 MG TAB PO SCH (16:03)
[2021-11-04 16:18] LABS: Glucose,Whole Blood 162 mg/dL (70-110)
--- NOTE | 2021-11-04 17:54 | P.PN ---
Subjective This is a pleasant 71 years old male with multiple medical problems. Presents because of dyspnea 2 weeks thought secondary to diastolic CHF with e chocardiogram showing ejection fraction 55-60% with some evidence of acute COPD exacerbation patient is being followed closely by pulmonary and cardiology services. And he is currently on IV Lasix 40 mg once daily and Solu-Medrol with lower the dose 60 down to 40 mg today. Patient is still complaining from dyspnea with a dry cough. He is on 4 L oxygen at home which is same as here. But he was started on liquids in the hospital for new onset A. fib with RVR, present on admission. He remains on Cardizem drip at 15 mg/h. Also he is on flecainide with wireless communications engineer following her closely. A still tachycardic around 107. He is afebrile. WBC is 13,000, hemoglobin 7.8 and creatinine 1.1. Chest x-ray showed cardiomegaly with mild pulmonary congestion Surgical team were consulted for anemia and the recommended outpatient endoscopy 11/01/2021 Patient is awake and alert, patient has a lot of cough overnight and he has sleeping difficulties. His been followed closely by pulmonary and cardiology team. He was still on Cardizem drip this morning. Also he is on Eliquis 5 mg. Creatinine went up 1.4 was likely secondary to diuresis, he is on IV Lasix 40 mg daily. Also escaped on Solu-Medrol 40 mg. Metalworking Specialist added several inotropic medication including metoprolol 25 mg twice a day, Cardizem 180 mg daily and increased dose of flecainide to 150 mg. Heart rate is better controlled in 60s today. He is on 4 L oxygen at home which is the same as here. Hemoglobin 7.8 surgery team recommended on endoscopy which can be done as an outpatient. Surgicel already signed off. He is on a Protonix and Eliquis 11/02/2021 Patient awake and alert, she still has coughing and she still has bilateral leg edema and basal crepitation although it is mild. Also patient is still complaining of from some exertional dyspnea although she remains on 4 L oxygen which is her home dose. Her cough is better after starting on Robitussin yesterday. She still tachypneic but slightly tachycardic. Chest x-ray showing mild pulmonary congestion and she is on IV Lasix. Also she is on home dose of Eliquis 5 mg and continued on flecainide, metoprolol and Cardizem 180 mg daily for her paroxysmal A. fib and RVR. Creatinine slightly better today 1.2. We will check chest x-ray tomorrow as well as lab. Patient will need endoscopy as an outpatient for her anemia with surgery team 11/04/2011 Patient today still with shortness of breath and chest tightness with decreased air entry on both sides. Chest x-ray showing possible CHF. Patient was placed on fluid restriction and IV Lasix was adjusted to 20 mg twice daily creatinine today is 1.0. Hemoglobin 7.7 and WBC 10.4. She still saturating 90s on 4 L/m. Slightly tachypneic. She remains on home dose of Eliquis, Solu-Medrol 40 mg. 11/04/2021 Patient breathing improving however looks like at baseline she still has some limitation of air entry. She lost her IV access and her medication or switch to oral including prednisone 40 mg and Lasix 20 mg twice daily. Also her heart rate for A. fib is controlled with flecainide, metoprolol and Cardizem. Pulmonary team proceeded then discharge and outpatient so and maybe within 24 hours if she keeps improving however patient may benefit from cardioversion tomorrow by wireless communications engineer. Surgery team already signed off on the recommended endoscopy as an outpatient, patient informed and she agrees. She is getting iron therapy per and deficiency anemia Objective - Vital Signs Vital signs: Vital Signs Temp 97.9 F 11/04/21 08:00 Pulse 100 11/04/21 11:51 Resp 16 11/04/21 11:51 BP 111/72 11/04/21 11:51 Pulse Ox 97 11/04/21 11:51 FiO2 36 10/29/21 00:53 Intake & Output 11/03/21 11/04/21 11/04/21 18:59 06:59 18:59 Intake Total 240 Output Total 450 Balance -210 Weight 84.8 kg Intake: Oral 240 Output: Urine 450 Other: Voiding Method Toilet Toilet Toilet # Voids 700 1 # Bowel Movements 0 - Exam GENERAL: The patient is alert and oriented x3, not in any acute distress. Well developed, well nourished. HEENT: Pupils are round and equally reacting to light. EOMI. No scleral icterus. No conjunctival pallor. Normocephalic, atraumatic. No pharyngeal erythema. No thyromegaly. CARDIOVASCULAR: S1 and S2 present. No murmurs, rubs, or gallops. PULMONARY: Chest is clear to auscultation, no wheezing or crackles. ABDOMEN: Soft, nontender, nondistended, normoactive bowel sounds. No palpable organomegaly. MUSCULOSKELETAL: No joint swelling or deformity. EXTREMITIES: No cyanosis, clubbing, or pedal edema. NEUROLOGICAL: Gross neurological examination did not reveal any focal deficits. SKIN: No rashes. no petechiae. - Labs CBC & Chem 7: 11/03/21 07:27 11/03/21 07:27 Labs: Abnormal Lab Results - Last 24 Hours (Table) 11/03/21 11/03/21 11/03/21 Range/Units 07:27 16:14 19:40 POC Glucose (mg/dL) 169 H 126 H (70-110) mg/dL Iron 11 L (50-170) ug/dL TIBC 514 H (228-460) ug/dL % Saturation 2.10 L (12.00-45.00) Transferrin 367.0 H (204.0-354.0) mg/dL 11/04/21 11/04/21 Range/Units 05:55 11:36 POC Glucose (mg/dL) 132 H 122 H (70-110) mg/dL Iron (50-170) ug/dL TIBC (228-460) ug/dL % Saturation (12.00-45.00) Transferrin (204.0-354.0) mg/dL Assessment and Plan Assessment: Acute diastolic CHF with ejection fraction 55-60% Acute hypoxic respiratory failure on chronic respiratory failure COPD exacerbation Paroxysmal atrial fibrillation with RVR Anemia we will need outpatient endoscopy Plan: This is a pleasant 71 years old female who presents with COPD and CHF. Continue with oral Lasix, at 20 mg twice a day Change Solu-Medrol and prednisone Continue with Eliquis Follow-up with pulmonary consult. Continue with metoprolol, flecainide and Cardizem per cardiology, possible cardioversion per her wireless communications engineer Labs and medication were reviewed.. Continue same treatment. Continue with symptomatic treatment. Resume home medication. Monitor lytes and vitals. DVT and GI prophylaxis. Further recommendations as per clinical course of the patient DVT prophylaxis: Eliquis GI Prophylaxis: ppi PT/OT: Pending Prognosis is guarded
[2021-11-04 19:42] LABS: Glucose,Whole Blood 144 mg/dL (70-110)
[2021-11-04] MEDS: MONTELUKAST 10 MG TAB PO SCH (20:01)
[2021-11-05] MEDS: IPRATROPIUM-ALBUTEROL 3 ML NEB INHALATION SCH ×6 (02:23→23:30)
[2021-11-05 06:08] LABS: Glucose,Whole Blood 101 mg/dL (70-110)
[2021-11-05] MEDS: INSULIN ASPART (NovoLOG) 100 UNIT/ML VIAL SQ SCH ×4 (06:18→20:10)
[2021-11-05] MEDS: SYMBICORT 160-4.5 MCG INHALER INHALATION SCH ×2 (07:16→19:55)
[2021-11-05] MEDS: FERROUS SULFATE 325 MG TAB PO SCH ×3 (09:34→15:42)
[2021-11-05] MEDS: guaiFENesin-DM 100-10MG/5ML 10 ML CUP PO SCH ×4 (09:34→23:18)
[2021-11-05] MEDS ORDERED: PROPOFOL 10 MG/ML 20 ML VIAL IV ONE (09:50)
[2021-11-05] MEDS ORDERED: HYDROCORTISONE SUCCINATE 100 MG/2 ML VIAL IVP ONE (10:01)
[2021-11-05] MEDS ORDERED: LACTATED RINGERS 1,000 ML IV ONE (10:21)
--- NOTE | 2021-11-05 11:24 | P.PCN ---
Date of Procedure: 11/05/21 Operative Findings: Cardioversion Report Performing physician Abhay Tinajero M.D. Procedure performed Successful cardioversion of atrial fibrillation to normal sinus mechanism using 200 J and second attempt Indication Symptomatic atrial fibrillation Complication None Level of sedation The procedure was performed under deep sedation using propofol with IT SUPPORT TECHNICIAN in the room Procedure description After obtaining an informed consent the patient was brought to the recovery room. Sedation was introduced using propofol with IT SUPPORT TECHNICIAN in the room. Subsequently the patient cardioverted from atrial fibrillation to normal sinus mechanism using 200 J and second attempt. First attempt was performed under 120 J but the patient remains in atrial fibrillation Conclusion Successful cardioversion of atrial fibrillation to normal sinus mechanism using 200 J Postprocedure management Continue the current medical regimen Continue oral anticoagulation Follow-up with the patient
[2021-11-05 11:49] LABS: Glucose,Whole Blood 99 mg/dL (70-110)
[2021-11-05] MEDS: VITAMIN E (DL,TOCOPHERYL ACET) 400 UNIT (180 MG) CAP PO SCH (12:12)
[2021-11-05] MEDS: FLECAINIDE 50 MG TAB PO SCH ×2 (12:13→20:10)
[2021-11-05] MEDS: predniSONE 20 MG TAB PO SCH (12:13)
[2021-11-05] MEDS: FUROSEMIDE 20 MG TAB PO SCH ×2 (12:13→15:42)
[2021-11-05] MEDS: DILTIAZEM CD 180 MG CAP.ER.24H PO SCH (12:14)
[2021-11-05] MEDS: CALCIUM CARB-VIT D 500 MG-5 MCG TAB PO SCH (12:14)
[2021-11-05] MEDS: DOCUSATE 100 MG CAP PO SCH ×2 (12:14→20:10)
[2021-11-05] MEDS: MAGNESIUM OXIDE 400 MG TAB PO SCH (12:14)
[2021-11-05] MEDS: CHOLECALCIFEROL 25 MCG (1000 IU) TABLET PO SCH (12:14)
[2021-11-05] MEDS: APIXABAN 5 MG TAB PO SCH ×2 (12:14→20:10)
[2021-11-05] MEDS: FOLIC ACID 1 MG TAB PO SCH (12:14)
[2021-11-05] MEDS: PANTOPRAZOLE 40 MG/10 ML VIAL IVP SCH (12:15)
[2021-11-05] MEDS: METOPROLOL TARTRATE 25 MG TAB PO SCH ×3 (12:15→20:09)
[2021-11-05] MEDS: polyethylene glycoL 3350 17 GM POWD.PACK PO SCH (12:15)
[2021-11-05] MEDS: FLUTICASONE 50MCG/SPRAY NASAL 16GM EA NOSTRIL SCH (12:18)
[2021-11-05] MEDS: CALCITONIN 200 USP/1 NASAL SPRAY 3.7ML BTL NASAL SCH (12:18)
--- NOTE | 2021-11-05 12:40 | P.PN ---
Subjective Progress Note Date: 11/05/21 Principal diagnosis: Shortness of breath, atrial fibrillation. Reevaluated today on 11/02/21, patient is improving slightly compared to the last couple of days, heart rate seems to be better controlled. Remains on bronchodilators, remains on diuretics, remains on steroids, remains on eliquis, and her IV Cardizem is transitioned now to oral diltiazem 180 mg daily. Remains on flecainide improvement is noted, but not quite back to her baseline. However I believe the patient could be seriously considered for discharge planning in the next 24 hours. CBC is relatively normal except for hemoglobin of 7.4 lites are normal, BUN is 51 creatinine 1.21 Reevaluated today on 11/03/21, patient continues to do poorly, continues to have shortness of breath with any activity, no cough no fever no chills, no hemoptysis. Chest x-ray again showed evidence of interstitial edema and I'm recommending that we increase her diuretics. Her heart rate seems to be better controlled. Clearly the patient has severe underlying COPD/asthma and intermittent episodes of congestive heart failure. Reevaluated today on 11/04/21, patient is feeling better today, and the only change made yesterday was basically increasing her Lasix dose. Less cough and less wheezing less shortness of breath, today I recommended transitioning her IV medications to oral medication, mostly because she has no IV access, and she may not even need one. Especially with her clinical improvement. CBC is relatively normal hemoglobin remains low at 7.7. Renal profile is improving with a BUN of 49 and creatinine of 1.09 in spite of increasing the diuretics. I believe the control of her atrial fibrillation seems to be helping the most. Progress note dated 11/05/2021. Patient underwent cardioversion today with cardiology. She received 2 shocks, initially 120 J, and then at 200 J. She was in normal sinus rhythm after the second cardioversion. She currently a little out of that because of the sedation she received during the procedure. The patient is not receiving any IV fluids. She is on 4 L nasal cannula. She appears not to have any respiratory distress. No new labs today except a glucose of 99. No chest x-ray today. Objective - Vital Signs Vital signs: Vital Signs Temp 97 F L 11/05/21 11:15 Pulse 76 11/05/21 11:30 Resp 18 11/05/21 11:15 BP 123/59 11/05/21 11:30 Pulse Ox 98 11/05/21 11:30 FiO2 36 10/29/21 00:53 Intake & Output 11/04/21 11/05/21 11/05/21 18:59 06:59 18:59 Intake Total 420 150 Output Total 450 Balance -30 150 Weight 84 kg Intake: IV 150 Oral 420 Output: Urine 450 Other: Voiding Method Toilet Toilet Toilet # Voids 1 # Bowel Movements 0 - Exam No acute distress, very sleepy, secondary to the recent cardioversion. Currently on 4 L nasal cannula HEENT examination is grossly unremarkable. Neck supple. Full range of motion. No adenopathy thyromegaly or neck vein distention. Cardiovascular examination reveals regular rhythm rate. S1-S2 normal. No S3 or S4. No discernible murmur noted. Heart rate 76 bpm. Lungs reveal mild scattered rhonchi. No wheezes. No crackles. 4 L saturation is 98%. Abdomen soft bowel sounds are heard. No masses or tenderness. Extremities are intact. No cyanosis clubbing or edema. Skin is without rash or lesion. Neurologic examination is brief but nonfocal. Patient is very sleepy and falls off to sleep easily. - Labs CBC & Chem 7: 11/03/21 07:27 11/03/21 07:27 Labs: Abnormal Lab Results - Last 24 Hours (Table) 11/04/21 11/04/21 Range/Units 16:16 19:40 POC Glucose (mg/dL) 162 H 144 H (70-110) mg/dL Assessment and Plan Assessment: Acute on chronic hypoxemic respiratory failure. Acute diastolic CHF. Paroxysmal atrial fibrillation with RVR, status post cardioversion 11/05, back in normal sinus rhythm. Acute anemia, with suspected chronic GI blood losses. History of severe persistent asthma. Prior history of diverticular perforation, status post surgery. Compression fracture T7 and T12 and L2 spine. Chronic low back pain. History of nephrolithiasis. History of osteoporosis. This history of splenectomy. Plan: Plan dated 11/05/2021. The patient underwent cardioversion today. She is back in normal sinus rhythm. The pulmonary standpoint, she appears to be relatively stable. She's currently on 4 L of nasal oxygen, with adequate saturations. Additional recommendations and suggestions are forthcoming. Labs, x-rays, and medications are reviewed. She remains on DuoNeb, Symbicort, and prednisone. Time with Patient: Less than 30
--- NOTE | 2021-11-05 12:48 | P.PN ---
Subjective This is a pleasant 71 years old male with multiple medical problems. Presents because of dyspnea 2 weeks thought secondary to diastolic CHF with e chocardiogram showing ejection fraction 55-60% with some evidence of acute COPD exacerbation patient is being followed closely by pulmonary and cardiology services. And he is currently on IV Lasix 40 mg once daily and Solu-Medrol with lower the dose 60 down to 40 mg today. Patient is still complaining from dyspnea with a dry cough. He is on 4 L oxygen at home which is same as here. But he was started on liquids in the hospital for new onset A. fib with RVR, present on admission. He remains on Cardizem drip at 15 mg/h. Also he is on flecainide with industrial maintenance manager following her closely. A still tachycardic around 107. He is afebrile. WBC is 13,000, hemoglobin 7.8 and creatinine 1.1. Chest x-ray showed cardiomegaly with mild pulmonary congestion Surgical team were consulted for anemia and the recommended outpatient endoscopy 11/01/2021 Patient is awake and alert, patient has a lot of cough overnight and he has sleeping difficulties. His been followed closely by pulmonary and cardiology team. He was still on Cardizem drip this morning. Also he is on Eliquis 5 mg. Creatinine went up 1.4 was likely secondary to diuresis, he is on IV Lasix 40 mg daily. Also escaped on Solu-Medrol 40 mg. [employer] Coordinator added several inotropic medication including metoprolol 25 mg twice a day, Cardizem 180 mg daily and increased dose of flecainide to 150 mg. Heart rate is better controlled in 60s today. He is on 4 L oxygen at home which is the same as here. Hemoglobin 7.8 surgery team recommended on endoscopy which can be done as an outpatient. Surgicel already signed off. He is on a Protonix and Eliquis 11/02/2021 Patient awake and alert, she still has coughing and she still has bilateral leg edema and basal crepitation although it is mild. Also patient is still complaining of from some exertional dyspnea although she remains on 4 L oxygen which is her home dose. Her cough is better after starting on Robitussin yesterday. She still tachypneic but slightly tachycardic. Chest x-ray showing mild pulmonary congestion and she is on IV Lasix. Also she is on home dose of Eliquis 5 mg and continued on flecainide, metoprolol and Cardizem 180 mg daily for her paroxysmal A. fib and RVR. Creatinine slightly better today 1.2. We will check chest x-ray tomorrow as well as lab. Patient will need endoscopy as an outpatient for her anemia with surgery team 11/04/2011 Patient today still with shortness of breath and chest tightness with decreased air entry on both sides. Chest x-ray showing possible CHF. Patient was placed on fluid restriction and IV Lasix was adjusted to 20 mg twice daily creatinine today is 1.0. Hemoglobin 7.7 and WBC 10.4. She still saturating 90s on 4 L/m. Slightly tachypneic. She remains on home dose of Eliquis, Solu-Medrol 40 mg. 11/04/2021 Patient breathing improving however looks like at baseline she still has some limitation of air entry. She lost her IV access and her medication or switch to oral including prednisone 40 mg and Lasix 20 mg twice daily. Also her heart rate for A. fib is controlled with flecainide, metoprolol and Cardizem. Pulmonary team proceeded then discharge and outpatient so and maybe within 24 hours if she keeps improving however patient may benefit from cardioversion tomorrow by industrial maintenance manager. Surgery team already signed off on the recommended endoscopy as an outpatient, patient informed and she agrees. She is getting iron therapy per and deficiency anemia 11/06/2011 Patient awake and alert and she is breathing easier today with report improvement in her dyspnea and coughing. No significant basal crepitation or leg edema. Her heart rate was still uncontrolled and she underwent cardioversion with industrial maintenance manager team because it is thought contributing to her worsening respiratory symptoms. She remains on 4 L oxygen saturation 98%. She still has low appetite and she is constipated. Check labs in the morning She remains on Eliquis, oral Lasix and prednisone 40 mg. Objective - Vital Signs Vital signs: Vital Signs Temp 97 F L 11/05/21 11:15 Pulse 76 11/05/21 11:30 Resp 18 11/05/21 11:15 BP 123/59 11/05/21 11:30 Pulse Ox 98 11/05/21 11:30 FiO2 36 10/29/21 00:53 Intake & Output 07/11/05/21 11/05/21 18:59 06:59 18:59 Intake Total 420 150 Output Total 450 Balance -30 150 Weight 84 kg Intake: IV 150 Oral 420 Output: Urine 450 Other: Voiding Method Toilet Toilet Toilet # Voids 1 # Bowel Movements 0 - Exam GENERAL: The patient is alert and oriented x3, not in any acute distress. Well developed, well nourished. HEENT: Pupils are round and equally reacting to light. EOMI. No scleral icterus. No conjunctival pallor. Normocephalic, atraumatic. No pharyngeal erythema. No thyromegaly. CARDIOVASCULAR: S1 and S2 present. No murmurs, rubs, or gallops. PULMONARY: Chest is clear to auscultation, no wheezing or crackles. ABDOMEN: Soft, nontender, nondistended, normoactive bowel sounds. No palpable organomegaly. MUSCULOSKELETAL: No joint swelling or deformity. EXTREMITIES: No cyanosis, clubbing, or pedal edema. NEUROLOGICAL: Gross neurological examination did not reveal any focal deficits. SKIN: No rashes. no petechiae. - Labs CBC & Chem 7: 11/03/21 07:27 11/03/21 07:27 Labs: Abnormal Lab Results - Last 24 Hours (Table) 11/04/21 11/04/21 Range/Units 16:16 19:40 POC Glucose (mg/dL) 162 H 144 H (70-110) mg/dL Assessment and Plan Assessment: Acute diastolic CHF with ejection fraction 55-60% Acute hypoxic respiratory failure on chronic respiratory failure COPD exacerbation Paroxysmal atrial fibrillation with RVR, status post cardioversion 11/05 Anemia, patient will need outpatient endoscopy Plan: This is a pleasant 71 years old female who presents with COPD and CHF. Continue with oral Lasix, at 20 mg twice a day Continue with prednisone Continue with Eliquis Follow-up with pulmonary consult. Continue with metoprolol, flecainide and Cardizem per cardiology, status post cardioversion , follow-up with industrial maintenance manager Labs and medication were reviewed.. Continue same treatment. Continue with symptomatic treatment. Resume home medication. Monitor lytes and vitals. DVT and GI prophylaxis. Further recommendations as per clinical course of the patient DVT prophylaxis: Eliquis GI Prophylaxis: ppi PT/OT: Pending Prognosis is guarded
[2021-11-05] MEDS ORDERED: SODIUM FERRIC GLUCONAT-SUCROSE 125 MG in SODIUM CHLORIDE 0.9% 100 ML IVPB ONE (13:00)
[2021-11-05 16:37] LABS: Glucose,Whole Blood 177 mg/dL (70-110)
[2021-11-05 19:44] LABS: Glucose,Whole Blood 124 mg/dL (70-110)
[2021-11-05] MEDS: MONTELUKAST 10 MG TAB PO SCH (20:10)
[2021-11-06] MEDS: IPRATROPIUM-ALBUTEROL 3 ML NEB INHALATION SCH ×5 (03:19→20:52)
[2021-11-06 06:10] LABS: Glucose,Whole Blood 100 mg/dL (70-110)
[2021-11-06] MEDS: INSULIN ASPART (NovoLOG) 100 UNIT/ML VIAL SQ SCH ×4 (06:16→20:34)
[2021-11-06] MEDS: FERROUS SULFATE 325 MG TAB PO SCH ×3 (06:21→17:12)
[2021-11-06] MEDS: guaiFENesin-DM 100-10MG/5ML 10 ML CUP PO SCH ×4 (06:23→22:52)
[2021-11-06] MEDS: SYMBICORT 160-4.5 MCG INHALER INHALATION SCH ×2 (07:23→20:52)
[2021-11-06] MEDS: FLUTICASONE 50MCG/SPRAY NASAL 16GM EA NOSTRIL SCH (08:05)
[2021-11-06] MEDS: CALCITONIN 200 USP/1 NASAL SPRAY 3.7ML BTL NASAL SCH (08:05)
[2021-11-06] MEDS: APIXABAN 5 MG TAB PO SCH ×2 (08:06→20:33)
[2021-11-06] MEDS: DILTIAZEM CD 180 MG CAP.ER.24H PO SCH (08:06)
[2021-11-06] MEDS: polyethylene glycoL 3350 17 GM POWD.PACK PO SCH (08:06)
[2021-11-06] MEDS: MAGNESIUM OXIDE 400 MG TAB PO SCH (08:06)
[2021-11-06] MEDS: CALCIUM CARB-VIT D 500 MG-5 MCG TAB PO SCH (08:06)
[2021-11-06] MEDS: METOPROLOL TARTRATE 25 MG TAB PO SCH ×3 (08:06→20:34)
[2021-11-06] MEDS: PANTOPRAZOLE 40 MG/10 ML VIAL IVP SCH (08:06)
[2021-11-06] MEDS: DOCUSATE 100 MG CAP PO SCH ×2 (08:07→20:34)
[2021-11-06] MEDS: predniSONE 20 MG TAB PO SCH (08:07)
[2021-11-06] MEDS: FUROSEMIDE 20 MG TAB PO SCH ×2 (08:07→17:13)
[2021-11-06] MEDS: FLECAINIDE 50 MG TAB PO SCH ×2 (08:07→20:33)
[2021-11-06] MEDS: FOLIC ACID 1 MG TAB PO SCH (08:07)
[2021-11-06] MEDS: CHOLECALCIFEROL 25 MCG (1000 IU) TABLET PO SCH (08:07)
[2021-11-06] MEDS: VITAMIN E (DL,TOCOPHERYL ACET) 400 UNIT (180 MG) CAP PO SCH (08:08)
[2021-11-06 09:40] LABS: African American GFR (CKD) >90 (>60 ml/min/1.73 sqM); Blood Urea Nitrogen 43 mg/dL (7-17); Calcium 8.3 mg/dL (8.4-10.2); Chloride 91 mmol/L (98-107); Glucose 92 mg/dL (74-99); Magnesium 2.4 mg/dL (1.6-2.3); Non-African American GFR(CKD) 82 (>60 ml/min/1.73 sqM); Potassium 4.2 mmol/L (3.5-5.1); Sodium 137 mmol/L (137-145)
[2021-11-06 09:45] LABS: Anisocytosis Slight; HCT 28.7 % (34.0-46.0); HGB 8.1 gm/dL (11.4-16.0); Hypochromasia Marked; MCH 23.5 pg (25.0-35.0); MCHC 28.3 g/dL (31.0-37.0); MCV 82.9 fL (80.0-100.0); Platelet Count 353 k/uL (150-450); Poikilocytosis Slight; RBC 3.47 m/uL (3.80-5.40); RDW 18.5 % (11.5-15.5)
[2021-11-06 09:46] LABS: Anion Gap 5 mmol/L
[2021-11-06 09:53] LABS: Carbon Dioxide 41 mmol/L (22-30)
--- NOTE | 2021-11-06 10:55 | P.PN ---
Subjective This is a 71-year-old female past medical history of paroxysmal atrial fibrillation on Eliquis, asthma requiring home oxygen, congestive heart failure, chronic kidney disease. She follows in the office with Dr. Tinajero. We have seen the patient in consultation for atrial fibrillation with rapid ventricular response, congestive heart failure. She presents emergency department for increased shortness of breath and chronic lower extremity edema. Patient admitted to the hospital with anemia, exacerbation of asthma, and heart failure exacerbation. Patient's initial hemoglobin was 6.7 she received 1 unit of blood today she is 7.2. Last night patient went into atrial fibrillation with rapid ventricular rate. Troponins negative 3. Patient is on Eliquis for anticoagulation at home. She is on Cardizem gtt. Her flecainide was increased to 100 mg twice a day. Echocardiogram revealed an EF of 5055 %, both atria are enlarged. Mild to moderate mitral regurgitation 11/05/2021 patient underwent cardioversion with Dr. Tinajero. Patient required second attempt with 200J to convert to sinus mechanism 11/06/2021 Patient seen and examined at bedside, no acute distress. She continues to have shortness of breath and wheezing. Improved. Telemetry reviewed, patient is maintaining sinus mechanism heart rate high 50s70s. Meds: Eliquis 5 mg twice a day, Cardizem 180mg Dialy, flecainide 150 mg twice a day, metoprolol 25 mg TID. Labs: Sodium 137, potassium 4.2, carbon dioxide 41, chloride 91, BUN 43, serum creatinine 0.74 VITALS: Reviewed GENERAL: Some shortness of breath, in no acute distress. NECK: Supple without JVD LUNGS: Breath sounds expiratory wheezing noted to auscultation bilaterally. Respiration equal and unlabored. No wheezes, rales or rhonchi. HEART: Regular rate and rhythm systolic murmur at apex. No rubs or gallops. S1 and S2 heard. EXTREMITIES: Normal range of motion, trace bilateral edema R >L No clubbing or cyanosis. Peripheral pulses intact. ASSESSMENT Paroxysmal atrial fibrillation with RVR Eliquis Status post cardioversion on 11/05/2021 Typical atrial flutter Asthma exacerbation Acute on chronic heart failure with preserved ejection fraction Acute on Chronic kidney disease, likely related to IV diuresis, improving PLAN Continue Cardizem 180mg daily, flecainide 150mg BID, Metoprolol tartrate 25mg TID, likely need medication adjustment as an outpatient Continue Eliquis Continue with telemetry monitoring Hopefully discharge in 24 hours Further recommendations based on clinical course Nurse Practitioner note has been reviewed, I agree with a documented findings and plan of care. Patient was seen and examined. Objective - Vital Signs Vital signs: Vital Signs Temp 98.2 F 11/06/21 08:00 Pulse 63 11/06/21 08:00 Resp 16 11/06/21 08:00 BP 100/54 11/06/21 08:00 Pulse Ox 98 11/06/21 08:00 FiO2 36 10/29/21 00:53 Intake & Output 11/05/21 11/06/21 11/06/21 18:59 06:59 18:59 Intake Total 454 Output Total 1150 Balance -696 Weight 84 kg 82.5 kg Intake: IV 100 Oral 354 Output: Urine 1150 Other: Voiding Method Toilet Toilet Toilet # Voids 3 # Bowel Movements 2 - Labs CBC & Chem 7: 11/06/21 07:56 11/06/21 07:56 Labs: Abnormal Lab Results - Last 24 Hours (Table) 11/05/21 11/05/21 11/06/21 Range/Units 16:32 19:42 07:56 WBC 12.9 H (3.8-10.6) k/uL RBC 3.47 L (3.80-5.40) m/uL Hgb 8.1 L (11.4-16.0) gm/dL Hct 28.7 L (34.0-46.0) % MCH 23.5 L (25.0-35.0) pg MCHC 28.3 L (31.0-37.0) g/dL RDW 18.5 H (11.5-15.5) % Chloride (98-107) mmol/L Carbon Dioxide (22-30) mmol/L BUN (7-17) mg/dL POC Glucose (mg/dL) 177 H 124 H (70-110) mg/dL Calcium (8.4-10.2) mg/dL Magnesium (1.6-2.3) mg/dL 11/06/21 Range/Units 07:56 WBC (3.8-10.6) k/uL RBC (3.80-5.40) m/uL Hgb (11.4-16.0) gm/dL Hct (34.0-46.0) % MCH (25.0-35.0) pg MCHC (31.0-37.0) g/dL RDW (11.5-15.5) % Chloride 91 L (98-107) mmol/L Carbon Dioxide 41 H* (22-30) mmol/L BUN 43 H (7-17) mg/dL POC Glucose (mg/dL) (70-110) mg/dL Calcium 8.3 L (8.4-10.2) mg/dL Magnesium 2.4 H (1.6-2.3) mg/dL
[2021-11-06 11:30] LABS: Eosinophils # (M) 0.12 k/uL (0-0.7); Lymphocytes # (M) 0.86 k/uL (1.0-4.8); Monocytes # (M) 0.98 k/uL (0-1.0); Myelocytes # (M) 0.12 k/uL (0); Myelocytes % 1 %; Neutrophils # (M) 10.33 k/uL (1.3-7.7); Neutrophils % (M) 84 %; Nucleated Red Blood Cells 5 /100 WBC (0-0); Polychromasia Present; Target Cells Present; Total Cells Counted 200; WBC 12.3 k/uL (3.8-10.6)
[2021-11-06 11:31] LABS: RBC Fragments Present
[2021-11-06 11:46] LABS: Glucose,Whole Blood 100 mg/dL (70-110)
--- NOTE | 2021-11-06 13:36 | P.PN ---
Subjective Progress Note Date: 11/06/21 Principal diagnosis: Shortness of breath, atrial fibrillation. Reevaluated today on 11/02/21, patient is improving slightly compared to the last couple of days, heart rate seems to be better controlled. Remains on bronchodilators, remains on diuretics, remains on steroids, remains on eliquis, and her IV Cardizem is transitioned now to oral diltiazem 180 mg daily. Remains on flecainide improvement is noted, but not quite back to her baseline. However I believe the patient could be seriously considered for discharge planning in the next 24 hours. CBC is relatively normal except for hemoglobin of 7.4 lites are normal, BUN is 51 creatinine 1.21 Reevaluated today on 11/03/21, patient continues to do poorly, continues to have shortness of breath with any activity, no cough no fever no chills, no hemoptysis. Chest x-ray again showed evidence of interstitial edema and I'm recommending that we increase her diuretics. Her heart rate seems to be better controlled. Clearly the patient has severe underlying COPD/asthma and intermittent episodes of congestive heart failure. Reevaluated today on 11/04/21, patient is feeling better today, and the only change made yesterday was basically increasing her Lasix dose. Less cough and less wheezing less shortness of breath, today I recommended transitioning her IV medications to oral medication, mostly because she has no IV access, and she may not even need one. Especially with her clinical improvement. CBC is relatively normal hemoglobin remains low at 7.7. Renal profile is improving with a BUN of 49 and creatinine of 1.09 in spite of increasing the diuretics. I believe the control of her atrial fibrillation seems to be helping the most. Progress note dated 11/05/2021. Patient underwent cardioversion today with cardiology. She received 2 shocks, initially 120 J, and then at 200 J. She was in normal sinus rhythm after the second cardioversion. She currently a little out of that because of the sedation she received during the procedure. The patient is not receiving any IV fluids. She is on 4 L nasal cannula. She appears not to have any respiratory distress. No new labs today except a glucose of 99. No chest x-ray today. Progress note dated 11/06/2021. The patient appears to be doing much better today. She remains in sinus rhythm. She had cardioversion yesterday. She remains on 4 L nasal O2. The patient is hoping to be discharged possibly by tomorrow. The patient is not receiving any IV fluids. Labs today show a white count of 12.3, hemoglobin 8.1, hematocrit 28.7, and a platelet count of 353,000. Sodium 137, potassium 4.2, chlorides 91, CO2 41, BUN 43, and creatinine 0.74. No recent chest x-ray. Objective - Vital Signs Vital signs: Vital Signs Temp 98.0 F 11/06/21 12:00 Pulse 63 11/06/21 12:00 Resp 16 11/06/21 12:00 BP 101/51 11/06/21 12:00 Pulse Ox 99 11/06/21 12:00 FiO2 36 10/29/21 00:53 Intake & Output 11/05/21 11/06/21 11/06/21 18:59 06:59 18:59 Intake Total 454 Output Total 1150 Balance -696 Weight 84 kg 82.5 kg Intake: IV 100 Oral 354 Output: Urine 1150 Other: Voiding Method Toilet Toilet Toilet # Voids 3 # Bowel Movements 2 - Exam No acute distress, awake and alert, and oriented. Currently on 4 L nasal cannula HEENT examination is grossly unremarkable. Neck supple. Full range of motion. No adenopathy thyromegaly or neck vein d istention. Cardiovascular examination reveals regular rhythm rate. S1-S2 normal. No S3 or S4. No discernible murmur noted. Heart rate 60 bpm. Lungs reveal mild scattered rhonchi. No wheezes. No crackles. 4 L saturation is 99%. Abdomen soft bowel sounds are heard. No masses or tenderness. Extremities are intact. No cyanosis clubbing or edema. Skin is without rash or lesion. Neurologic examination is brief but nonfocal. Patient is much more awake today. - Labs CBC & Chem 7: 11/06/21 07:56 11/06/21 07:56 Labs: Abnormal Lab Results - Last 24 Hours (Table) 11/05/21 11/05/21 11/06/21 Range/Units 16:32 19:42 07:56 WBC 12.3 H (3.8-10.6) k/uL RBC 3.47 L (3.80-5.40) m/uL Hgb 8.1 L (11.4-16.0) gm/dL Hct 28.7 L (34.0-46.0) % MCH 23.5 L (25.0-35.0) pg MCHC 28.3 L (31.0-37.0) g/dL RDW 18.5 H (11.5-15.5) % Neutrophils # (Manual) 10.33 H (1.3-7.7) k/uL Lymphocytes # (Manual) 0.86 L (1.0-4.8) k/uL Myelocytes # (Manual) 0.12 H (0) k/uL Nucleated RBCs 5 H (0-0) /100 WBC Chloride (98-107) mmol/L Carbon Dioxide (22-30) mmol/L BUN (7-17) mg/dL POC Glucose (mg/dL) 177 H 124 H (70-110) mg/dL Calcium (8.4-10.2) mg/dL Magnesium (1.6-2.3) mg/dL 11/06/21 Range/Units 07:56 WBC (3.8-10.6) k/uL RBC (3.80-5.40) m/uL Hgb (11.4-16.0) gm/dL Hct (34.0-46.0) % MCH (25.0-35.0) pg MCHC (31.0-37.0) g/dL RDW (11.5-15.5) % Neutrophils # (Manual) (1.3-7.7) k/uL Lymphocytes # (Manual) (1.0-4.8) k/uL Myelocytes # (Manual) (0) k/uL Nucleated RBCs (0-0) /100 WBC Chloride 91 L (98-107) mmol/L Carbon Dioxide 41 H* (22-30) mmol/L BUN 43 H (7-17) mg/dL POC Glucose (mg/dL) (70-110) mg/dL Calcium 8.3 L (8.4-10.2) mg/dL Magnesium 2.4 H (1.6-2.3) mg/dL Assessment and Plan Assessment: Acute on chronic hypoxemic respiratory failure. Acute diastolic CHF. Paroxysmal atrial fibrillation with RVR, status post cardioversion 11/05, back in normal sinus rhythm. Acute anemia, with suspected chronic GI blood losses. History of severe persistent asthma. Prior history of diverticular perforation, status post surgery. Compression fracture T7 and T12 and L2 spine. Chronic low back pain. History of nephrolithiasis. History of osteoporosis. This history of splenectomy. Plan: Plan dated 11/05/2021. The patient underwent cardioversion today. She is back in normal sinus rhythm. The pulmonary standpoint, she appears to be relatively stable. She's currently on 4 L of nasal oxygen, with adequate saturations. Additional recommendations and suggestions are forthcoming. Labs, x-rays, and medications are reviewed. She remains on DuoNeb, Symbicort, and prednisone. Plan dated 11/06/2021. The patient remains in normal sinus rhythm. She is on 4 L nasal O2, with saturations of 99%. That can be titrated down. Other than feeling tired, she's doing very well. She is hoping to be discharged tomorrow. Labs, x-rays, and nd dications are all reviewed. She remains on DuoNeb's, Symbicort, and prednisone. Additional recommendations and suggestions are forthcoming. Prognosis is guarded. I will see her in the office after discharge. Time with Patient: Less than 30
--- NOTE | 2021-11-06 14:59 | P.PN ---
Subjective Progress Note Date: 11/06/21 This is a pleasant 71 years old male with multiple medical problems. Presents because of dyspnea 2 weeks thought secondary to diastolic CHF with echocardiogram showing ejection fraction 55-60% with some evidence of acute COPD exacerbation patient is being followed closely by pulmonary and cardiology se marshall. And he is currently on IV Lasix 40 mg once daily and Solu-Medrol with lower the dose 60 down to 40 mg today. Patient is still complaining from dyspnea with a dry cough. He is on 4 L oxygen at home which is same as here. But he was started on liquids in the hospital for new onset A. fib with RVR, present on admission. He remains on Cardizem drip at 15 mg/h. Also he is on flecainide with machine rigger following her closely. A still tachycardic around 107. He is afebrile. WBC is 13,000, hemoglobin 7.8 and creatinine 1.1. Chest x-ray showed cardiomegaly with mild pulmonary congestion Surgical team were consulted for anemia and the recommended outpatient endoscopy 11/01/2021 Patient is awake and alert, patient has a lot of cough overnight and he has sleeping difficulties. His been followed closely by pulmonary and cardiology team. He was still on Cardizem drip this morning. Also he is on Eliquis 5 mg. Creatinine went up 1.4 was likely secondary to diuresis, he is on IV Lasix 40 mg daily. Also escaped on Solu-Medrol 40 mg. Imaging Assistant added several inotropic medication including metoprolol 25 mg twice a day, Cardizem 180 mg daily and increased dose of flecainide to 150 mg. Heart rate is better controlled in 60s today. He is on 4 L oxygen at home which is the same as here. Hemoglobin 7.8 surgery team recommended on endoscopy which can be done as an outpatient. Surgicel already signed off. He is on a Protonix and Eliquis 11/02/2021 Patient awake and alert, she still has coughing and she still has bilateral leg edema and basal crepitation although it is mild. Also patient is still complaining of from some exertional dyspnea although she remains on 4 L oxygen which is her home dose. Her cough is better after starting on Robitussin yesterday. She still tachypneic but slightly tachycardic. Chest x-ray showing mild pulmonary congestion and she is on IV Lasix. Also she is on home dose of Eliquis 5 mg and continued on flecainide, metoprolol and Cardizem 180 mg daily for her paroxysmal A. fib and RVR. Creatinine slightly better today 1.2. We will check chest x-ray tomorrow as well as lab. Patient will need endoscopy as an outpatient for her anemia with surgery team 11/04/2011 Patient today still with shortness of breath and chest tightness with decreased air entry on both sides. Chest x-ray showing possible CHF. Patient was placed on fluid restriction and IV Lasix was adjusted to 20 mg twice daily creatinine today is 1.0. Hemoglobin 7.7 and WBC 10.4. She still saturating 90s on 4 L/m. Slightly tachypneic. She remains on home dose of Eliquis, Solu-Medrol 40 mg. 11/04/2021 Patient breathing improving however looks like at baseline she still has some limitation of air entry. She lost her IV access and her medication or switch to oral including prednisone 40 mg and Lasix 20 mg twice daily. Also her heart rate for A. fib is controlled with flecainide, metoprolol and Cardizem. Pulmonary team proceeded then discharge and outpatient so and maybe within 24 hours if she keeps improving however patient may benefit from cardioversion tomorrow by machine rigger. Surgery team already signed off on the recommended endoscopy as an outpatient, patient informed and she agrees. She is getting iron therapy per and deficiency anemia 11/05/2021 Patient awake and alert and she is breathing easier today with report improvement in her dyspnea and coughing. No significant basal crepitation or leg edema. Her heart rate was still uncontrolled and she underwent cardioversion with machine rigger team because it is thought contributing to her worsening res piratory symptoms. She remains on 4 L oxygen saturation 98%. She still has low appetite and she is constipated. Check labs in the morning She remains on Eliquis, oral Lasix and prednisone 40 mg. 11/06/2021 Patient is seen and evaluated in follow-up this morning. Patient is status post cardioversion with machine rigger. Patient also being followed by pulmonary and maintained on breathing inhalational treatments and continues to be on 4 L of oxygen. Patient reports she chronically wears oxygen in the outpatient setting. Patient reports she feels somewhat improved although continues with weakness and will have physical therapy evaluate the patient. Hemoglobin is stable at 8.1, sodium is 137 with a potassium of 4.2 and current creatinine is 0.74. Magnesium is 2.4. Blood sugars are being monitored and recommend continue with Accu-Cheks before meals and at bedtime as needed. Patient has transitioned to oral Lasix and tolerating well and is also started on a prednisone taper. Patient is afebrile denies chest pain or palpitations. Patient continues with some shortness of breath although reports is improving. Review of systems: Constitutional: No reports of fatigue, fever, or chills Cardiovascular: No reports of chest pain or palpitations Respiratory: reports of shortness of breath although feels is somewhat improving GI: No reports of nausea, vomiting, or diarrhea, reports eating a little more : No reports of dysuria or retention Neurovascular: reports of generalized weakness All medications have been reviewed Active Medications Acetaminophen (Acetaminophen Tab 325 Mg Tab) 650 mg PO Q6HR PRN PRN Reason: Fever and/ or Pain Last Admin: 10/29/21 05:50 Dose: 650 mg Albuterol/Ipratropium (Ipratropium-Albuterol 3 Ml Neb) 3 ml INHALATION Q4H PRN PRN Reason: Wheezing Last Admin: 11/01/21 04:09 Dose: 3 ml Albuterol/Ipratropium (Ipratropium-Albuterol 3 Ml Neb) 3 ml INHALATION RT-Q4H [facility] Last Admin: 11/06/21 11:12 Dose: 3 ml Apixaban (Apixaban 5 Mg Tab) 5 mg PO BID [facility]; Protocol Last Admin: 11/06/21 08:06 Dose: 5 mg Budesonide/Formoterol Fumarate (Symbicort 160-4.5 Mcg Inhaler) 2 puff INHALATION RT-BID [facility] Last Admin: 11/06/21 07:23 Dose: 2 puff Calcitonin [place] (Calcitonin 200 [facility]/1 Nasal [place] 3.7ml Btl) 1 spray NASAL DAILY [facility] Last Admin: 11/06/21 08:05 Dose: 1 spray Calcium Carbonate (Calcium Carb-Vit D 500 Mg-5 Mcg Tab) 1 each PO DAILY [facility] Last Admin: 11/06/21 08:06 Dose: 1 each Cholecalciferol (Cholecalciferol 25 Mcg (1000 Iu) Tablet) 25 mcg PO DAILY [facility] Last Admin: 11/06/21 08:07 Dose: 25 mcg Diltiazem HCl (Diltiazem Cd 180 Mg Cap.Er.24h) 180 mg PO DAILY [facility] Last Admin: 11/06/21 08:06 Dose: 180 mg Diphenhydramine HCl (Diphenhydramine 50 Mg/Ml 1 Ml Vial) 25 mg IVP Q6HR PRN PRN Reason: Allergy Symptoms Docusate Sodium (Docusate 100 Mg Cap) 100 mg PO BID [facility] Last Admin: 11/06/21 08:07 Dose: 100 mg Docusate Sodium (Docusate 100 Mg Cap) 100 mg PO BID PRN PRN Reason: Constipation Ferrous Sulfate (Ferrous Sulfate 325 Mg Tab) 325 mg PO TID-W/MEALS [facility] Last Admin: 11/06/21 12:13 Dose: 325 mg Flecainide Acetate (Flecainide 50 Mg Tab) 150 mg PO Q12HR [facility] Last Admin: 11/06/21 08:07 Dose: 150 mg Fluticasone Propionate (Fluticasone 50mcg/[place] Nasal 16gm) 2 spray EA NOSTRIL DAILY [facility] Last Admin: 11/06/21 08:05 Dose: 2 spray Folic Acid (Folic Acid 1 Mg Tab) 1 mg PO DAILY [facility] Last Admin: 11/06/21 08:07 Dose: 1 mg Furosemide (Furosemide 20 Mg Tab) 20 mg PO BID@0900,1600 [facility] Last Admin: 11/06/21 08:07 Dose: 20 mg Guaifenesin/Dextromethorphan (Guaifenesin-Dm 100-10mg/5ml 10 Ml Cup) 10 ml PO Q6HR [facility] Last Admin: 11/06/21 12:13 Dose: 10 ml Insulin Aspart (Insulin Aspart (Novolog) 100 Unit/Ml Vial) [address] [facility]; Protocol Last Admin: 11/06/21 12:02 Dose: Not Given Magnesium Oxide (Magnesium Oxide 400 Mg Tab) 400 mg PO DAILY [facility] Last Admin: 11/06/21 08:06 Dose: 400 mg Metoprolol Tartrate (Metoprolol Tartrate 25 Mg Tab) 25 mg PO TID [facility] Last Admin: 11/06/21 08:06 Dose: 25 mg Montelukast Sodium (Montelukast 10 Mg Tab) 10 mg PO HS [facility] Last Admin: 08/01/22 20:10 Dose: 10 mg Naloxone HCl (Naloxone 0.4 Mg/Ml 1 Ml Vial) 0.2 mg IV Q2M PRN PRN Reason: Opioid Reversal Pantoprazole Sodium (Pantoprazole 40 Mg/10 Ml Vial) 40 mg IVP DAILY [facility] Last Admin: 11/06/21 08:06 Dose: 40 mg Polyethylene Glycol (Polyethylene Glycol 3350 17 Gm Powd.Pack) 17 gm PO DAILY [facility] Last Admin: 11/06/21 08:06 Dose: 17 gm Prednisone (Prednisone 20 Mg Tab) 40 mg PO DAILY [facility] Last Admin: 11/06/21 08:07 Dose: 40 mg Promethazine HCl (Promethazine 25 Mg Tab) 25 mg PO Q6HR PRN PRN Reason: Cough Senna (Sennosides 8.6 Mg Tab) 8.6 mg PO DAILY PRN PRN Reason: Constipation Last Admin: 11/02/21 20:43 Dose: 8.6 mg Vitamin E (Vitamin E (Dl,Tocopheryl Acet) 400 Unit (180 Mg) Cap) 400 unit PO DAILY [facility] Last Admin: 11/06/21 08:08 Dose: 400 unit Physical exam: GENERAL: The patient is alert and oriented x3, not in any acute distress. Well developed, well nourished. HEENT: Pupils are round and equally reacting to light. EOMI. No scleral icterus. No conjunctival pallor. Normocephalic, atraumatic. No pharyngeal erythema. No thyromegaly. CARDIOVASCULAR: S1 and S2 present. No murmurs, rubs, or gallops. PULMONARY: Diminished breath sounds bilaterally with some scattered rhonchi noted ABDOMEN: Soft, nontender, nondistended, normoactive bowel sounds. No palpable organomegaly. MUSCULOSKELETAL: No joint swelling or deformity. EXTREMITIES: No cyanosis, clubbing, or pedal edema. NEUROLOGICAL: Gross neurological examination did not reveal any focal deficits. Diffuse weakness SKIN: No rashes. no petechiae. Assessment: Acute diastolic CHF with ejection fraction 55-60% Acute on chronic hypoxic respiratory failure secondary to CHF and also COPD COPD exacerbation Paroxysmal atrial fibrillation with RVR, status post cardioversion 11/05 Anemia, patient will need outpatient endoscopy GI prophylaxis DVT prophylaxis No code Plan: This is a pleasant 71 years old female who presents with COPD and CHF. Continue with oral Lasix, at 20 mg twice a day, cardiology has cleared the maxwell ent for discharge with outpatient follow-up Patient has transitioned to oral prednisone and will continue a taper on discharge and recommend outpatient pulmonary follow-up Continue with Eliquis Continue with metoprolol, flecainide and Cardizem per cardiology, status post cardioversion , follow-up with machine rigger Patient continues with weakness and recommend PT/OT evaluation Encouraged increased activity as tolerated Possible discharge in the next 24 hours The impression and plan of care has been dictated by Lisa Knox, Nurse Practitioner as directed. Dr. Guerita MD I have performed a history and examination and MDM of this patient, discussed the same with the dictator, and agree with the dictator's assessment and plan as written ,documented as a scribe. Based on total visit time, I have performed more than 50% of the visit. Objective - Vital Signs Vital signs: Vital Signs Temp 98 F 11/05/21 20:05 Pulse 60 11/06/21 07:42 Resp 17 11/06/21 03:55 BP 106/57 11/06/21 03:55 Pulse Ox 98 11/06/21 03:55 FiO2 36 10/29/21 00:53 Intake & Output 11/05/21 11/06/21 11/06/21 18:59 06:59 18:59 Intake Total 454 Output Total 1150 Balance -696 Weight 84 kg 82.5 kg Intake: IV 100 Oral 354 Output: Urine 1150 Other: Voiding Method Toilet Toilet # Voids 3 # Bowel Movements 2 - Labs CBC & Chem 7: 11/06/21 07:56 11/06/21 07:56 Labs: Abnormal Lab Results - Last 24 Hours (Table) 11/05/21 11/05/21 Range/Units 16:32 19:42 POC Glucose (mg/dL) 177 H 124 H (70-110) mg/dL
[2021-11-06 16:41] LABS: Glucose,Whole Blood 181 mg/dL (70-110)
[2021-11-06 20:23] LABS: Glucose,Whole Blood 136 mg/dL (70-110)
[2021-11-06] MEDS: MONTELUKAST 10 MG TAB PO SCH (20:34)
[2021-11-07] MEDS: IPRATROPIUM-ALBUTEROL 3 ML NEB INHALATION SCH ×5 (00:26→15:15)
[2021-11-07 06:05] LABS: Glucose,Whole Blood 97 mg/dL (70-110)
[2021-11-07] MEDS: INSULIN ASPART (NovoLOG) 100 UNIT/ML VIAL SQ SCH ×2 (06:21→12:12)
[2021-11-07] MEDS: guaiFENesin-DM 100-10MG/5ML 10 ML CUP PO SCH ×2 (06:22→12:32)
[2021-11-07] MEDS: FERROUS SULFATE 325 MG TAB PO SCH ×2 (06:22→12:32)
[2021-11-07] MEDS: SYMBICORT 160-4.5 MCG INHALER INHALATION SCH (08:48)
[2021-11-07 09:32] VITALS: TEMP 98
[2021-11-07] MEDS: FUROSEMIDE 20 MG TAB PO SCH (09:39)
[2021-11-07] MEDS: FOLIC ACID 1 MG TAB PO SCH (09:39)
[2021-11-07] MEDS: DILTIAZEM CD 180 MG CAP.ER.24H PO SCH (09:39)
[2021-11-07] MEDS: FLECAINIDE 50 MG TAB PO SCH (09:39)
[2021-11-07] MEDS: METOPROLOL TARTRATE 25 MG TAB PO SCH ×2 (09:39→15:48)
[2021-11-07] MEDS: predniSONE 20 MG TAB PO SCH (09:40)
[2021-11-07] MEDS: CALCIUM CARB-VIT D 500 MG-5 MCG TAB PO SCH (09:40)
[2021-11-07] MEDS: PANTOPRAZOLE 40 MG/10 ML VIAL IVP SCH (09:40)
[2021-11-07] MEDS: CHOLECALCIFEROL 25 MCG (1000 IU) TABLET PO SCH (09:40)
[2021-11-07] MEDS: APIXABAN 5 MG TAB PO SCH (09:40)
[2021-11-07] MEDS: DOCUSATE 100 MG CAP PO SCH (09:40)
[2021-11-07] MEDS: MAGNESIUM OXIDE 400 MG TAB PO SCH (09:41)
[2021-11-07] MEDS: VITAMIN E (DL,TOCOPHERYL ACET) 400 UNIT (180 MG) CAP PO SCH (09:41)
[2021-11-07] MEDS: polyethylene glycoL 3350 17 GM POWD.PACK PO SCH (09:41)
[2021-11-07] MEDS: FLUTICASONE 50MCG/SPRAY NASAL 16GM EA NOSTRIL SCH (09:47)
[2021-11-07] MEDS: CALCITONIN 200 USP/1 NASAL SPRAY 3.7ML BTL NASAL SCH (09:48)
[2021-11-07 10:45] VITALS: BMI 31.0
--- NOTE | 2021-11-07 11:35 | P.PN ---
Subjective Progress Note Date: 11/07/21 Principal diagnosis: Shortness of breath, atrial fibrillation. Reevaluated today on 11/02/21, patient is improving slightly compared to the last couple of days, heart rate seems to be better controlled. Remains on bronchodilators, remains on diuretics, remains on steroids, remains on eliquis, and her IV Cardizem is transitioned now to oral diltiazem 180 mg daily. Remains on flecainide improvement is noted, but not quite back to her baseline. However I believe the patient could be seriously considered for discharge planning in the next 24 hours. CBC is relatively normal except for hemoglobin of 7.4 lites are normal, BUN is 51 creatinine 1.21 Reevaluated today on 11/03/21, patient continues to do poorly, continues to have shortness of breath with any activity, no cough no fever no chills, no hemoptysis. Chest x-ray again showed evidence of interstitial edema and I'm recommending that we increase her diuretics. Her heart rate seems to be better controlled. Clearly the patient has severe underlying COPD/asthma and intermittent episodes of congestive heart failure. Reevaluated today on 11/04/21, patient is feeling better today, and the only change made yesterday was basically increasing her Lasix dose. Less cough and less wheezing less shortness of breath, today I recommended transitioning her IV medications to oral medication, mostly because she has no IV access, and she may not even need one. Especially with her clinical improvement. CBC is relatively normal hemoglobin remains low at 7.7. Renal profile is improving with a BUN of 49 and creatinine of 1.09 in spite of increasing the diuretics. I believe the control of her atrial fibrillation seems to be helping the most. Progress note dated 11/05/2021. Patient underwent cardioversion today with cardiology. She received 2 shocks, initially 120 J, and then at 200 J. She was in normal sinus rhythm after the second cardioversion. She currently a little out of that because of the sedation she received during the procedure. The patient is not receiving any IV fluids. She is on 4 L nasal cannula. She appears not to have any respiratory distress. No new labs today except a glucose of 99. No chest x-ray today. Progress note dated 11/06/2021. The patient appears to be doing much better today. She remains in sinus rhythm. She had cardioversion yesterday. She remains on 4 L nasal O2. The patient is hoping to be discharged possibly by tomorrow. The patient is not receiving any IV fluids. Labs today show a white count of 12.3, hemoglobin 8.1, hematocrit 28.7, and a platelet count of 353,000. Sodium 137, potassium 4.2, chlorides 91, CO2 41, BUN 43, and creatinine 0.74. No recent chest x-ray. Progress note dated 11/07/2021. The patient appears to be doing much better. She remains on 4 L of oxygen. This is what she uses at home. The nurse tells me that she may be considered for possible discharge today. On November 05, she had a cardioversion, for atrial fibrillation. She remains in normal sinus rhythm. She's not receiving any IV fluids. Clinically, she's feeling much better. No new laboratory data today other than a glucose of 97. Objective - Vital Signs Vital signs: Vital Signs Temp 98.0 F 11/07/21 09:31 Pulse 62 11/07/21 09:31 Resp 18 11/07/21 09:31 BP 124/62 11/07/21 09:31 Pulse Ox 99 11/07/21 09:31 FiO2 36 10/29/21 00:53 Intake & Output 11/06/21 11/07/21 11/07/21 18:59 06:59 18:59 Intake Total 50 Output Total 700 Balance -700 50 Weight 82.1 kg 82.1 kg Intake: Oral 50 Output: Urine 700 Other: Voiding Method Toilet Toilet - Exam No acute distress, awake and alert, and oriented. Currently on 4 L nasal cannula HEENT examination is grossly unremarkable. Neck supple. Full range of motion. No adenopathy thyromegaly or neck vein distention. Cardiovascular examination reveals regular rhythm rate. S1-S2 normal. No S3 or S4. No discernible murmur noted. Heart rate 62 bpm. Lungs reveal mild scattered rhonchi. No wheezes. No crackles. 4 L saturation is 99%. Abdomen soft bowel sounds are heard. No masses or tenderness. Extremities are intact. No cyanosis clubbing or edema. Skin is without rash or lesion. Neurologic examination is brief but nonfocal. - Labs CBC & Chem 7: 11/06/21 07:56 08/02/22 07:56 Labs: Abnormal Lab Results - Last 24 Hours (Table) 11/06/21 11/06/21 11/06/21 Range/Units 07:56 16:40 19:59 WBC 12.3 H (3.8-10.6) k/uL Neutrophils # (Manual) 10.33 H (1.3-7.7) k/uL Lymphocytes # (Manual) 0.86 L (1.0-4.8) k/uL Myelocytes # (Manual) 0.12 H (0) k/uL Nucleated RBCs 5 H (0-0) /100 WBC POC Glucose (mg/dL) 181 H 136 H (70-110) mg/dL Assessment and Plan Assessment: Acute on chronic hypoxemic respiratory failure. Acute diastolic CHF. Paroxysmal atrial fibrillation with RVR, status post cardioversion 11/05, back in normal sinus rhythm. Acute anemia, with suspected chronic GI blood losses. History of severe persistent asthma. Prior history of diverticular perforation, status post surgery. Compression fracture T7 and T12 and L2 spine. Chronic low back pain. History of nephrolithiasis. History of osteoporosis. This history of splenectomy. Plan: Plan dated 11/05/2021. The patient underwent cardioversion today. She is back in normal sinus rhythm. The pulmonary standpoint, she appears to be relatively stable. She's currently on 4 L of nasal oxygen, with adequate saturations. Additional recommendations and suggestions are forthcoming. Labs, x-rays, and medications are reviewed. She remains on DuoNeb, Symbicort, and prednisone. Plan dated 11/06/2021. The patient remains in normal sinus rhythm. She is on 4 L nasal O2, with saturations of 99%. That can be titrated down. Other than feeling tired, she's doing very well. She is hoping to be discharged tomorrow. Labs, x-rays, and medications are all reviewed. She remains on DuoNeb's, Symbicort, and prednisone. Additional recommendations and suggestions are forthcoming. Prognosis is guarded. I will see her in the office after discharge. Plan dated 11/07/2021. The patient remains in normal sinus rhythm. She's currently on 4 L of oxygen, which is what she uses at home. The patient's on prednisone 40 mg a day, and can taper by 10 mg every third or fourth day. Her normal dose is 5 mg a day. I've asked the nurse to make an appointment for me in the office. Labs, x-rays, and medications are all reviewed. The patient could be discharged today, but we will leave that up to primary service. No additional recommendations are made. Prognosis is certainly guarded. Time with Patient: Less than 30
--- NOTE | 2021-11-07 11:54 | P.PN ---
Subjective This is a 71-year-old female past medical history of paroxysmal atrial fibrillation on Eliquis, asthma requiring home oxygen, congestive heart failure, chronic kidney disease. She follows in the office with Dr. Tinajero. We have seen the patient in consultation for atrial fibrillation with rapid ventricular response, congestive heart failure. She presents emergency department for increased shortness of breath and chronic lower extremity edema. Patient admitted to the hospital with anemia, exacerbation of asthma, and heart failure exacerbation. Patient's initial hemoglobin was 6.7 she received 1 unit of blood today she is 7.2. Last night patient went into atrial fibrillation with rapid ventricular rate. Troponins negative 3. Patient is on Eliquis for anticoagulation at home. She is on Cardizem gtt. Her flecainide was increased to 100 mg twice a day. Echocardiogram revealed an EF of 5055 %, both atria are enlarged. Mild to moderate mitral regurgitation 11/05/2021 patient underwent cardioversion with Dr. Tinajero. Patient required second attempt with 200J to convert to sinus mechanism 11/07/2021 Patient seen and examined at bedside, no acute distress. Her breathing has improved. No chest pain or palpitations. Telemetry reviewed, patient is maintaining sinus mechanism heart rate high 50s70s. Meds: Eliquis 5 mg twice a day, Cardizem 180mg Daily, flecainide 150 mg twice a day, metoprolol 25 mg TID. VITALS: Reviewed GENERAL: Some shortness of breath, in no acute distress. NECK: Supple without JVD LUNGS: Breath sounds expiratory wheezing noted to auscultation bilaterally. Respiration equal and unlabored. No wheezes, rales or rhonchi. HEART: Regular rate and rhythm systolic murmur at apex. No rubs or gallops. S1 and S2 heard. EXTREMITIES: Normal range of motion, trace bilateral edema. No clubbing or cyanosis. Peripheral pulses intact. ASSESSMENT Paroxysmal atrial fibrillation with RVR Eliquis Status post cardioversion on 11/05/2021 Typical atrial flutter Asthma exacerbation Acute on chronic heart failure with preserved ejection fraction Acute on Chronic kidney disease, likely related to IV diuresis, improving PLAN Continue Cardizem 180mg daily, flecainide 150mg BID, Metoprolol tartrate 25mg TID, likely need medication adjustment as an outpatient Continue Eliquis From cardiology perspective, patient stable for discharge home. Follow up with Dr. Tinajero 12 weeks Nurse Practitioner note has been reviewed, I agree with a documented findings and plan of care. Patient was seen and examined. Objective - Vital Signs Vital signs: Vital Signs Temp 98.0 F 11/07/21 09:31 Pulse 62 11/07/21 09:31 Resp 18 11/07/21 09:31 BP 124/62 11/07/21 09:31 Pulse Ox 99 11/07/21 09:31 FiO2 36 10/29/21 00:53 Intake & Output 11/06/21 11/07/21 11/07/21 18:59 06:59 18:59 Intake Total 50 Output Total 700 Balance -700 50 Weight 82.1 kg 82.1 kg Intake: Oral 50 Output: Urine 700 Other: Voiding Method Toilet Toilet - Labs CBC & Chem 7: 11/06/21 07:56 11/06/21 07:56 Labs: Abnormal Lab Results - Last 24 Hours (Table) 11/06/21 11/06/21 Range/Units 16:40 19:59 POC Glucose (mg/dL) 181 H 136 H (70-110) mg/dL
[2021-11-07 12:10] LABS: Glucose,Whole Blood 108 mg/dL (70-110)
[2021-11-07 15:27] VITALS: PULSE 58
[2021-11-07 15:46] VITALS: BP 110/67; RESP 18
--- NOTE | 2021-11-07 19:22 | P.DS ---
Providers Date of admission: 10/29/21 11:52 Expected date of discharge: 11/07/21 Attending physician: Gabbie Mcmillan Consults: 10/28/21 15:17 Consult Physician Routine Consulting Provider: Chencho Gallardo Consult Reason/Comments: Asthma, COPD Do you want consulting provider notified?: Yes, Notify in am Consult Physician Routine Consulting Provider: Lucio Boyer Consult Reason/Comments: anemia Do you want consulting provider notified?: Already Contacted Consult Physician Routine Consulting Provider: [facility] Consult Reason/Comments: volume overload, chf Do you want consulting provider notified?: Yes, Notify in am Primary care physician: Terence Lopez Hospital Course: Final diagnosis Acute diastolic CHF with ejection fraction 55-60% Acute on chronic hypoxic respiratory failure secondary to CHF and also COPD COPD exacerbation Paroxysmal atrial fibrillation with RVR, status post cardioversion 11/05 Anemia, patient will need outpatient endoscopy GI prophylaxis DVT prophylaxis No code Discharge disposition Patient is being discharged in a stable condition with guarded prognosis to home with home care . Patient will follow-up with Dr. Terence Lopez in the outpatient setting upon discharge. Patient is to also follow with pulmonary and cardiology as scheduled. Patient to follow with surgery outpatient for possible endoscopy and anemia. Total time taken is greater than 35 minutes. Hospital course This is a 71-year-old female who was recently admitted with afib rvr and anemia and was being closely monitored. Patient underwent cardioversion during this admission. Patient also with COPD and was having some increased shortness of breath. Patient reports to feeling improved and is anxious to be discharged home today. Patient refusing ecf for rehab but is agreeable to home care. Currently no reports of chest pain, shortness of breath, or palpitations. Patient is afebrile. No reports of nausea or vomiting and patient is tolerating diet. Patient will be discharged home today. guarded prognosis Physical exam: Gen: This is a 71 year old female who is awake, alert and oriented x3, well developed, well nourished. obese HEENT: Head is atraumatic, normocephalic. Pupils equal, round. Sclerae is anicteric. NECK: Supple. No JVD. No lymphadenopathy. No thyromegaly. LUNGS: diminished breath sounds bilaterally with some scattered rhonchi. No intercostal retractions. HEART: Regular rate and rhythm. No murmur. ABDOMEN: Soft. Bowel sounds are present. No masses. No tenderness. EXTREMITIES: No pedal edema. No calf tenderness. NEUROLOGICAL: Patient is awake, alert and oriented x3. Cranial nerves 2 through 12 are grossly intact. Please refer to medication reconciliation sheet for a list of medications. The impression and plan of care has been dictated by Lisa Knox, Nurse Practitioner as directed. MD Marleny I have performed a history and examination and MDM of this patient, discussed the same with the dictator, and agree with the dictator's assessment and plan as written ,documented as a scribe. Based on total visit time, I have performed more than 50% of the visit. Patient Condition at Discharge: Stable Plan - Discharge Summary Discharge Rx Participant: No New Discharge Prescriptions: New Metoprolol Tartrate [Lopressor] 25 mg PO TID #90 tab Docusate [Colace] 100 mg PO BID cap predniSONE 10 mg PO DIRECTED #30 tab Ipratropium-Albuterol Nebulize [Duoneb 0.5 mg-3 mg/3 ml Soln] 3 ml INHALATION RT-Q4H #120 each Ipratropium-Albuterol Nebulize [Duoneb 0.5 mg-3 mg/3 ml Soln] 3 ml INHALATION Q4H PRN each PRN Reason: Wheezing Ferrous Sulfate [Iron (65 MG Elemental)] 325 mg PO TID-W/MEALS #90 tab Furosemide [Lasix] 20 mg PO BID@0900,1600 30 Days #60 tab guaiFENesin-DM 100-10MG/5ML [Robitussin DM] 10 ml PO Q6HR #240 ml Acetaminophen Tab [Tylenol] 650 mg PO Q6HR PRN tab PRN Reason: Fever And/ Or Pain Continue Albuterol Sulfate [Proventil Hfa] 2 puff INHALATION RT-QID PRN PRN Reason: Shortness Of Breath Budesonide/Formoterol Fumarate [Symbicort 160-4.5 Mcg Inhaler] 2 puff INHALATION RT-BID Albuterol Nebulized [Ventolin Nebulized] 2.5 mg INHALATION RT-QID PRN PRN Reason: Shortness Of Breath Montelukast [Singulair] 10 mg PO HS Folic Acid 1 mg PO DAILY Apixaban [Eliquis] 5 mg PO BID dilTIAZem HCL [Cartia Xt] 180 mg PO DAILY Calcium/Vitamin D Chewable 1 tab PO DAILY Vitamin E (Dl,Tocopheryl Acet) [Vitamin E (400 Iu = 180 mg)] 400 unit PO DAILY Docusate [Colace] 100 mg PO BID PRN PRN Reason: Constipation Magnesium Oxide [Mag-Ox] 400 mg PO DAILY Fennel Tea 1 dose PO DAILY PRN PRN Reason: gas D-Mannose 1,400 mg PO DAILY Calcitonin Nasal [Fortical (Miacalcin)] 1 spray NASAL DAILY Cholecalciferol [Vitamin D3 (25 Mcg = 1000 Iu)] 25 mcg PO DAILY Fluticasone Nasal [place] [Flonase Nasal [place]] 2 spr EA NOSTRIL DAILY Umeclidinium [place] [Incruse Ellipta] 1 puff INHALATION RT-DAILY Changed Flecainide [Tambocor] 150 mg PO BID #180 tab Discontinued predniSONE 20 mg PO DAILY Discharge Medication List Albuterol Nebulized [Ventolin Nebulized] 2.5 mg INHALATION RT-QID PRN 07/22/16 [History] Albuterol Sulfate [Proventil Hfa] 2 puff INHALATION RT-QID PRN 07/22/16 [History] Budesonide/Formoterol Fumarate [Symbicort 160-4.5 Mcg Inhaler] 2 puff INHALATION RT-BID 07/22/16 [History] Montelukast [Singulair] 10 mg PO HS 07/22/16 [History] Folic Acid 1 mg PO DAILY 01/19/18 [History] Apixaban [Eliquis] 5 mg PO BID 05/25/18 [History] dilTIAZem HCL [Cartia Xt] 180 mg PO DAILY 05/25/18 [History] Calcium/Vitamin D Chewable 1 tab PO DAILY 01/05/21 [History] D-Mannose 1,400 mg PO DAILY 01/05/21 [History] Fennel Tea 1 dose PO DAILY PRN 01/05/21 [History] Magnesium Oxide [Mag-Ox] 400 mg PO DAILY 01/05/21 [History] Calcitonin Nasal [Fortical (Miacalcin)] 1 spray NASAL DAILY 10/28/21 [History] Cholecalciferol [Vitamin D3 (25 Mcg = 1000 Iu)] 25 mcg PO DAILY 10/28/21 [History] Docusate [Colace] 100 mg PO BID PRN 10/28/21 [History] Fluticasone Nasal [place] [Flonase Nasal [place]] 2 spr EA NOSTRIL DAILY 10/28/21 [History] Umeclidinium [place] [Incruse Ellipta] 1 puff INHALATION RT-DAILY 10/28/21 [History] Vitamin E (Dl,Tocopheryl Acet) [Vitamin E (400 Iu = 180 mg)] 400 unit PO DAILY 10/28/21 [History] Acetaminophen Tab [Tylenol] 650 mg PO Q6HR PRN tab 11/07/21 [Rx] Docusate [Colace] 100 mg PO BID cap 11/07/21 [Rx] Ferrous Sulfate [Iron (65 MG Elemental)] 325 mg PO TID-W/MEALS #90 tab 11/07/21 [Rx] Flecainide [Tambocor] 150 mg PO BID #180 tab 11/07/21 [Rx] Furosemide [Lasix] 20 mg PO BID@0900,1600 30 Days #60 tab 11/07/21 [Rx] Ipratropium-Albuterol Nebulize [Duoneb 0.5 mg-3 mg/3 ml Soln] 3 ml INHALATION Q4H PRN each 11/07/21 [Rx] Ipratropium-Albuterol Nebulize [Duoneb 0.5 mg-3 mg/3 ml Soln] 3 ml INHALATION RT-Q4H #120 each 11/07/21 [Rx] Metoprolol Tartrate [Lopressor] 25 mg PO TID #90 tab 11/07/21 [Rx] guaiFENesin-DM 100-10MG/5ML [Robitussin DM] 10 ml PO Q6HR #240 ml 11/07/21 [Rx] predniSONE 10 mg PO DIRECTED #30 tab 11/07/21 [Rx] Follow up Appointment(s)/Referral(s): Abhay Tinajero MD [STAFF PHYSICIAN] - 11/13/21 5:00 pm ([facility]) Chencho Gallardo DO [Doctor of Osteopathic Medicine] - 12/06/21 1:30 pm (Previously scheduled appointment. Office will call after checking with Dr. Gallardo for an earlier appointment) Terence Lopez MD [Primary Care Provider] - 1-2 days (Office is closed. Please call to schedule appointment) Lucio Boyer MD [STAFF PHYSICIAN] - 11/15/21 1:45 pm () Ambulatory/Diagnostic Orders: Complete Blood Count w/diff [LAB.AMB] Time Frame: 3 Days, Location: None Selected Activity/Diet/Wound Care/Special Instructions: Activity Limited until follow-up Follow-up with primary care provider on discharge Follow-up with cardiology on discharge Follow-up with pulmonary outpatient Follow-up with general surgery outpatient Continue heart healthy diet Recommend repeat labs in the next 2-3 days Discharge Disposition: HOME SELF-CARE
--- NOTE | 2021-11-08 19:15 | CDI ---
Documentation Clarification Form Date: 11/08/2021 07:00:58 PM From: Keshia Andres Admit Date: 10/29/2021 11:52:00 AM Patient Name: Angelique Boyle Visit Number: [id number] Discharge Date: 11/07/2021 03:50:00 PM ATTENTION: The Clinical Documentation Specialists (CDI) and [facility] Coding Staff appreciate your assistance in clarifying documentation. Please respond to the clarification below the line at the bottom and electronically sign. The CDI & [facility] Coding staff will review the response and follow-up if needed. Please note: Queries are made part of the Legal Health Record. If you have any questions, please contact the author of this message via ITS. Dr. Gabbie Mcmillan Unspecified CKD is documented per Dr. Ney Powell Progress Note 10/30/21. Additional clarification regarding the stage of CKD is requested. History/Risk Factors: 71yo F, proximal A fib, Acute MAGAN, AECOPD, A/CHRF, A/CDCHF, severe persistent asthma, RICA Clinical Indicators: Acute onChronic kidney disease, likely related to IV diuresis, improving Current BUN/CR/GFR: HBUN/Creat Ratio 22.00Ratio (12.00-20.00) Creatinine 1.0mg/dL (0.6-1.5) LNon- GFR(CKD) 56.6 (60.0-200.0) GFR (CKD) 65.6 (60.0-200.0) Treatment: Continue Cardizem 180mg daily, flecainide 150mg BID, Metoprolol tartrate 25mg TID,likelyneed medicationadjustmentas an outpatient. Continue Eliquis. From cardiology perspective, patient stable for discharge home .Follow upwith Dr. Clevelandaf12 weeks Please clarify the stage of the CKD, if known: [ ] CKD Stage 1 (GFR > 90) [ xxxx] CKD Stage 2 (GFR 60-89) [ ] CKD Stage 3 (GFR 30-59) [ ] CKD Stage 3a (GFR 45-59) [ ] CKD Stage 3b (GFR 30-44) [ ] CKD Stage 4 (GFR 15-29) [ ] CKD Stage 5 (GFR <15) [ ] ESRD [ ] Other, please specify [ ] Unable to determine MTDD
== END 2021-11-07 15:50 | disposition home or self-care (01) | DRG 291 ==
LOC: EC 12:41 → 6NMEDSUR 16:16 → 2SICU 10-29 08:34 → OBSVTOIN 10-29 11:52 → 3SCARD 10-29 17:53
PROVIDERS: ADMIT Family Medicine; ATTEND Family Medicine
PROC: 30233N1 Transfusion of Nonautologous Red Blood Cells into Peripheral Vein, Percutaneous Approach (ICD-10-PCS; 2021-10-28)
PROC: 5A2204Z Restoration of Cardiac Rhythm, Single (ICD-10-PCS; principal; 2021-11-05 11:05)
DX: I50.33 Acute on chronic diastolic (congestive) heart failure (principal); J96.21 Acute and chronic respiratory failure with hypoxia; N17.9 Acute kidney failure, unspecified; J44.1 Chronic obstructive pulmonary disease with (acute) exacerbation; M48.54XA Collapsed vertebra, not elsewhere classified, thoracic region, initial encounter for fracture; J45.51 Severe persistent asthma with (acute) exacerbation; M48.56XA Collapsed vertebra, not elsewhere classified, lumbar region, initial encounter for fracture; I48.3 Typical atrial flutter; I08.1 Rheumatic disorders of both mitral and tricuspid valves; D50.0 Iron deficiency anemia secondary to blood loss (chronic); E66.9 Obesity, unspecified; Z68.31 Body mass index [BMI] 31.0-31.9, adult; Z79.01 Long term (current) use of anticoagulants; Z99.81 Dependence on supplemental oxygen; I48.0 Paroxysmal atrial fibrillation; N18.2 Chronic kidney disease, stage 2 (mild); G89.29 Other chronic pain; M81.0 Age-related osteoporosis without current pathological fracture; K21.9 Gastro-esophageal reflux disease without esophagitis; K59.00 Constipation, unspecified; T50.2X5A Adverse effect of carbonic-anhydrase inhibitors, benzothiadiazides and other diuretics, initial encounter; R00.0 Tachycardia, unspecified; J34.89 Other specified disorders of nose and nasal sinuses; Z20.822 Contact with and (suspected) exposure to COVID-19; Z79.51 Long term (current) use of inhaled steroids; Z88.8 Allergy status to other drugs, medicaments and biological substances; Z88.1 Allergy status to other antibiotic agents; Z88.5 Allergy status to narcotic agent; Z79.899 Other long term (current) drug therapy; Z87.19 Personal history of other diseases of the digestive system; Z85.828 Personal history of other malignant neoplasm of skin; Z87.442 Personal history of urinary calculi; Z87.440 Personal history of urinary (tract) infections; Z86.19 Personal history of other infectious and parasitic diseases; Z90.89 Acquired absence of other organs; Z90.49 Acquired absence of other specified parts of digestive tract; Z98.890 Other specified postprocedural states; Z98.42 Cataract extraction status, left eye; Z90.81 Acquired absence of spleen; Z80.0 Family history of malignant neoplasm of digestive organs; Z79.52 Long term (current) use of systemic steroids
CPT/HCPCS: 36410; 36415; 71045; 71046; 76937; 80048; 80053; 82272; 82728; 83540; 83550; 83735; 83880; 84145; 84439; 84443; 84484; 85025; 85610; 85730; 86850; 86900; 86901; 86920; 87502; 87635; 92960; 93005; 93306; 94640; 94760; 96365; 96375; 99285

== ENCOUNTER 2021-11-08 12:21 | Inpatient (IN) | payer MEDICARE ==
--- NOTE | 2021-11-08 12:40 | ED ---
General Adult HPI - General Chief complaint: Shortness of Breath Stated complaint: revisit - weakness Time Seen by Provider: 11/08/21 12:26 Source: patient, EMS, RN notes reviewed Mode of arrival: EMS Limitations: no limitations - History of Present Illness Initial comments: Patient is a pleasant 71-year-old female presenting to the emergency department with concerns with shortness of breath and fatigue. Patient was in the hospital last week with similar symptoms. Symptoms have been progressively worsening since going home. No leg pain or leg swelling. No cough. No palpitations or chest pain. Patient states she's been very fatigued and only able to ambulate 5 or 10 feet. - Related Data Home Medications Medication Instructions Recorded Confirmed Albuterol Nebulized [Ventolin 2.5 mg INHALATION RT-QID PRN 07/22/16 10/28/21 Nebulized] Albuterol Sulfate [Proventil Hfa] 2 puff INHALATION RT-QID PRN 07/22/16 10/28/21 Budesonide/Formoterol Fumarate 2 puff INHALATION RT-BID 07/22/16 10/28/21 [Symbicort 160-4.5 Mcg Inhaler] Montelukast [Singulair] 10 mg PO HS 07/22/16 10/28/21 Folic Acid 1 mg PO DAILY 01/19/18 10/28/21 Apixaban [Eliquis] 5 mg PO BID 05/25/18 10/28/21 dilTIAZem HCL [Cartia Xt] 180 mg PO DAILY 05/25/18 10/28/21 Calcium/Vitamin D Chewable 1 tab PO DAILY 01/05/21 10/28/21 D-Mannose 1,400 mg PO DAILY 01/05/21 10/28/21 Fennel Tea 1 dose PO DAILY PRN 01/05/21 10/28/21 Magnesium Oxide [Mag-Ox] 400 mg PO DAILY 01/05/21 10/28/21 Calcitonin Nasal [Fortical 1 spray NASAL DAILY 10/28/21 10/28/21 (Miacalcin)] Cholecalciferol [Vitamin D3 (25 25 mcg PO DAILY 10/28/21 10/28/21 Mcg = 1000 Iu)] Docusate [Colace] 100 mg PO BID PRN 10/28/21 10/28/21 Fluticasone Nasal [place] [Flonase 2 spr EA NOSTRIL DAILY 10/28/21 10/28/21 Nasal [place]] Umeclidinium [place] [Incruse 1 puff INHALATION RT-DAILY 10/28/21 10/28/21 Ellipta] Vitamin E (Dl,Tocopheryl Acet) 400 unit PO DAILY 10/28/21 10/28/21 [Vitamin E (400 Iu = 180 mg)] Previous Rx's Medication Instructions Recorded Acetaminophen Tab [Tylenol] 650 mg PO Q6HR PRN tab 11/07/21 Docusate [Colace] 100 mg PO BID cap 11/07/21 Ferrous Sulfate [Iron (65 MG 325 mg PO TID-W/MEALS #90 tab 11/07/21 Elemental)] Flecainide [Tambocor] 150 mg PO BID #180 tab 11/07/21 Furosemide [Lasix] 20 mg PO BID@0900,1600 30 Days #60 11/07/21 tab Ipratropium-Albuterol Nebulize 3 ml INHALATION Q4H PRN each 11/07/21 [Duoneb 0.5 mg-3 mg/3 ml Soln] Ipratropium-Albuterol Nebulize 3 ml INHALATION RT-Q4H #120 each 11/07/21 [Duoneb 0.5 mg-3 mg/3 ml Soln] Metoprolol Tartrate [Lopressor] 25 mg PO TID #90 tab 11/07/21 guaiFENesin-DM 100-10MG/5ML 10 ml PO Q6HR #240 ml 11/07/21 [Robitussin DM] predniSONE 10 mg PO DIRECTED #30 tab 11/07/21 Allergies Allergy/AdvReac Type Severity Reaction Status Date / Time furosemide [From Lasix] Allergy Rash/Hives(patient Verified 10/28/21 15:17 has had since without reaction-10/28/21) cephalexin [From Keflex] AdvReac Diarrhea Verified 10/28/21 15:35 morphine AdvReac Hallucinati Verified 10/28/21 15:17 ons/Agitati on Review of Systems ROS Statement: Those systems with pertinent positive or pertinent negative responses have been documented in the HPI. ROS Other: All systems not noted in ROS Statement are negative. Constitutional: Denies: fever Eyes: Denies: eye pain ENT: Denies: ear pain Respiratory: Reports: dyspnea Cardiovascular: Denies: chest pain, palpitations Endocrine: Reports: fatigue Gastrointestinal: Denies: abdominal pain Genitourinary: Denies: dysuria Musculoskeletal: Denies: back pain Skin: Denies: rash Neurological: Denies: headache Past Medical History Past Medical History: Atrial Fibrillation, Asthma, Cancer, Heart Failure, COPD, GERD/Reflux, Renal Disease, Respiratory Disorder Additional Past Medical History / Comment(s): Past diverticular perforation with surgery/colostomy with eventual reversal, bowel obstruction, home oxygen at HS 2L/NC, compression fractures T7 and T12 and L2 spine, chronic low back pain, osteoporosis, UTIs, sepsis, kidney stone, anemia, skin cancer with removal. History of Any Multi-Drug Resistant Organisms: None Reported Past Surgical History: Appendectomy, Bowel Resection, Cholecystectomy Additional Past Surgical History / Comment(s): Colonoscopies, bowel resection d/t perforation with colostomy, attempted colostomy reversal then exploratory lap with extensive lysis of adhesions, reversal of colostomy/repair of peristomal and incisional hernia/take down splenic flexure and partial omenectomy/spleenectomy, L eye cataract removed and repair of macular hole, cystoscopy-retrograde pyeloureterogram with stone removal, skin cancer removal. Past Anesthesia/Blood Transfusion Reactions: No Reported Reaction Past Psychological History: No Psychological Hx Reported Smoking Status: Never smoker Past Alcohol Use History: None Reported Past Drug Use History: None Reported - Past Family History Mother Family Medical History: Cancer Additional Family Medical History / Comment(s): COLON CANCER Father Family Medical History: Cancer Additional Family Medical History / Comment(s): stomach CA at age 95 Brother(s) Family Medical History: No Reported History Son(s) Family Medical History: No Reported History General Exam Limitations: no limitations General appearance: alert, in no apparent distress Head exam: Present: normocephalic Eye exam: Present: normal appearance Neck exam: Present: normal inspection Respiratory exam: Present: decreased breath sounds (Bilateral bases) Cardiovascular Exam: Present: regular rate, normal rhythm GI/Abdominal exam: Present: soft. Absent: tenderness Extremities exam: Present: normal inspection. Absent: pedal edema, calf tenderness Neurological exam: Present: alert Psychiatric exam: Present: normal affect, normal mood Skin exam: Present: normal color Course Vital Signs 11/08/21 11/08/21 12:22 12:30 Temperature 98.0 F Pulse Rate 56 L Respiratory 20 20 Rate Blood Pressure 108/50 O2 Sat by Pulse 96 Oximetry EKG Findings - EKG Comments: EKG Findings:: Size brake cardiology 54. SD 189. QRS 105. QT 477. QTC 464. Normal axis. Normal QRS. No acute ST change. Medical Decision Making - Medical Decision Making Case discussed with Dr. Casey, covering for Dr. Peres, who admits for Dr. Lopez and he will admit. Patient reevaluated and updated. - Lab Data Result diagrams: 11/08/21 13:03 11/08/21 13:03 Lab Results 11/08/21 11/08/21 11/08/21 Range/Units 13:03 13:03 13:03 WBC 13.7 H (3.8-10.6) k/uL RBC 4.09 (3.80-5.40) m/uL Hgb 9.5 L (11.4-16.0) gm/dL Hct 33.8 L (34.0-46.0) % MCV 82.5 (80.0-100.0) fL MCH 23.3 L (25.0-35.0) pg MCHC 28.3 L (31.0-37.0) g/dL RDW 18.9 H (11.5-15.5) % Plt Count 371 (150-450) k/uL MPV 8.6 Neutrophils % 93 % Lymphocytes % 3 % Monocytes % 3 % Eosinophils % 0 % Basophils % 0 % Neutrophils # 12.8 H (1.3-7.7) k/uL Lymphocytes # 0.4 L (1.0-4.8) k/uL Monocytes # 0.4 (0-1.0) k/uL Eosinophils # 0.0 (0-0.7) k/uL Basophils # 0.0 (0-0.2) k/uL Hypochromasia Marked Poikilocytosis Slight Anisocytosis Slight PT 10.6 (9.0-12.0) sec INR 1.0 (<1.2) APTT 22.2 (22.0-30.0) sec Sodium 138 (137-145) mmol/L Potassium 3.4 L (3.5-5.1) mmol/L Chloride 85 L (98-107) mmol/L Carbon Dioxide 50 H* (22-30) mmol/L Anion Gap 3 mmol/L BUN 31 H (7-17) mg/dL Creatinine 0.85 (0.52-1.04) mg/dL Est GFR (CKD-EPI)AfAm 80 (>60 ml/min/1.73 sqM) Est GFR (CKD-EPI)NonAf 69 (>60 ml/min/1.73 sqM) Glucose 119 H (74-99) mg/dL Plasma Lactic Acid [place] (0.7-2.0) mmol/L Calcium 8.6 (8.4-10.2) mg/dL Magnesium 2.2 (1.6-2.3) mg/dL Total Bilirubin 0.4 (0.2-1.3) mg/dL AST 29 (14-36) U/L ALT 76 H (4-34) U/L Alkaline Phosphatase 85 (38-126) U/L Troponin I (0.000-0.034) ng/mL Total Protein 6.1 L (6.3-8.2) g/dL Albumin 3.6 (3.5-5.0) g/dL Coronavirus (PCR) (Not Detectd) Influenza Type A RNA (Not Detectd) Influenza Type B (PCR) (Not Detectd) 11/08/21 11/08/21 11/08/21 Range/Units 13:03 13:03 13:03 WBC (3.8-10.6) k/uL RBC (3.80-5.40) m/uL Hgb (11.4-16.0) gm/dL Hct (34.0-46.0) % MCV (80.0-100.0) fL MCH (25.0-35.0) pg MCHC (31.0-37.0) g/dL RDW (11.5-15.5) % Plt Count (150-450) k/uL MPV Neutrophils % % Lymphocytes % % Monocytes % % Eosinophils % % Basophils % % Neutrophils # (1.3-7.7) k/uL Lymphocytes # (1.0-4.8) k/uL Monocytes # (0-1.0) k/uL Eosinophils # (0-0.7) k/uL Basophils # (0-0.2) k/uL Hypochromasia Poikilocytosis Anisocytosis PT (9.0-12.0) sec INR (<1.2) APTT (22.0-30.0) sec Sodium (137-145) mmol/L Potassium (3.5-5.1) mmol/L Chloride (98-107) mmol/L Carbon Dioxide (22-30) mmol/L Anion Gap mmol/L BUN (7-17) mg/dL Creatinine (0.52-1.04) mg/dL Est GFR (CKD-EPI)AfAm (>60 ml/min/1.73 sqM) Est GFR (CKD-EPI)NonAf (>60 ml/min/1.73 sqM) Glucose (74-99) mg/dL Plasma Lactic Acid [place] 1.2 (0.7-2.0) mmol/L Calcium (8.4-10.2) mg/dL Magnesium (1.6-2.3) mg/dL Total Bilirubin (0.2-1.3) mg/dL AST (14-36) U/L ALT (4-34) U/L Alkaline Phosphatase (38-126) U/L Troponin I <0.012 (0.000-0.034) ng/mL Total Protein (6.3-8.2) g/dL Albumin (3.5-5.0) g/dL Coronavirus (PCR) (Not Detectd) Influenza Type A RNA Not Detected (Not Detectd) Influenza Type B (PCR) Not Detected (Not Detectd) 11/08/21 Range/Units 13:03 WBC (3.8-10.6) k/uL RBC (3.80-5.40) m/uL Hgb (11.4-16.0) gm/dL Hct (34.0-46.0) % MCV (80.0-100.0) fL MCH (25.0-35.0) pg MCHC (31.0-37.0) g/dL RDW (11.5-15.5) % Plt Count (150-450) k/uL MPV Neutrophils % % Lymphocytes % % Monocytes % % Eosinophils % % Basophils % % Neutrophils # (1.3-7.7) k/uL Lymphocytes # (1.0-4.8) k/uL Monocytes # (0-1.0) k/uL Eosinophils # (0-0.7) k/uL Basophils # (0-0.2) k/uL Hypochromasia Poikilocytosis Anisocytosis PT (9.0-12.0) sec INR (<1.2) APTT (22.0-30.0) sec Sodium (137-145) mmol/L Potassium (3.5-5.1) mmol/L Chloride (98-107) mmol/L Carbon Dioxide (22-30) mmol/L Anion Gap mmol/L BUN (7-17) mg/dL Creatinine (0.52-1.04) mg/dL Est GFR (CKD-EPI)AfAm (>60 ml/min/1.73 sqM) Est GFR (CKD-EPI)NonAf (>60 ml/min/1.73 sqM) Glucose (74-99) mg/dL Plasma Lactic Acid [place] (0.7-2.0) mmol/L Calcium (8.4-10.2) mg/dL Magnesium (1.6-2.3) mg/dL Total Bilirubin (0.2-1.3) mg/dL AST (14-36) U/L ALT (4-34) U/L Alkaline Phosphatase (38-126) U/L Troponin I (0.000-0.034) ng/mL Total Protein (6.3-8.2) g/dL Albumin (3.5-5.0) g/dL Coronavirus (PCR) Not Detected (Not Detectd) Influenza Type A RNA (Not Detectd) Influenza Type B (PCR) (Not Detectd) - Radiology Data Radiology results: image reviewed (CHF) Disposition Clinical Impression: CHF (congestive heart failure), Acute exacerbation of chronic obstructive pulmonary disease Disposition: ADMITTED IP TO THIS HOSP Is patient prescribed a controlled substance at d/c from ED?: No Referrals: Terence Lopez MD [Primary Care Provider] - 1-2 days Time of Disposition: 14:12
[2021-11-08 13:37] LABS: Partial Thromboplastin Time 22.2 sec (22.0-30.0); Prothrombin Time 10.6 sec (9.0-12.0)
[2021-11-08 13:39] LABS: Albumin 3.6 g/dL (3.5-5.0); Calcium 8.6 mg/dL (8.4-10.2); Magnesium 2.2 mg/dL (1.6-2.3); Potassium 3.4 mmol/L (3.5-5.1); Total Bilirubin 0.4 mg/dL (0.2-1.3); Total Protein 6.1 g/dL (6.3-8.2)
--- NOTE | 2021-11-08 13:47 | XR ---
EXAMINATION TYPE: XR chest 2V DATE OF EXAM: 11/08/2021 COMPARISON: Chest x-ray November 03, 2021 HISTORY: Difficulty in breathing. TECHNIQUE: Frontal and lateral views of the chest are obtained. FINDINGS: Persistent cardiomegaly with suspected more prominent small bilateral pleural effusions. Persistent mild interstitial edema bilaterally. The osseous structures are intact. IMPRESSION: Findings consistent with CHF exacerbation redemonstrated. Findings slightly worse versus most recent prior x-ray.
[2021-11-08 13:52] LABS: Anisocytosis Slight; Basophils % (A) 0 %; Eosinophils % (A) 0 %; HCT 33.8 % (34.0-46.0); HGB 9.5 gm/dL (11.4-16.0); Hypochromasia Marked; Lymphocytes # (A) 0.4 k/uL (1.0-4.8); Lymphocytes % (A) 3 %; MCH 23.3 pg (25.0-35.0); MCHC 28.3 g/dL (31.0-37.0); MCV 82.5 fL (80.0-100.0); Mean Platelet Volume 8.6; Monocytes # (A) 0.4 k/uL (0-1.0); Monocytes % (A) 3 %; Neutrophils # (A) 12.8 k/uL (1.3-7.7); Neutrophils % (A) 93 %; Platelet Count 371 k/uL (150-450); Poikilocytosis Slight; RBC 4.09 m/uL (3.80-5.40); RDW 18.9 % (11.5-15.5); WBC 13.7 k/uL (3.8-10.6)
[2021-11-08] MEDS ORDERED: NALOXONE 0.4 MG/ML 1 ML VIAL IVP PRN (14:12)
[2021-11-08] MEDS ORDERED: ASPIRIN 325 MG TAB PO STA (14:12)
[2021-11-08 14:31] LABS: VBG PH 7.48 (7.31-7.41)
[2021-11-08] MEDS: IPRATROPIUM-ALBUTEROL 3 ML NEB INHALATION SCH ×2 (14:33→19:47)
[2021-11-08 14:37] LABS: ABG Base Excess 27.5 mmol/L; ABG Oxygen Saturation 95.4 % (94-97); ABG PH 7.46 (7.35-7.45); ABG PO2 88 mmHg (83-108); ABG TCO2 54 mmol/L (19-24); Allen Test Performed? Yes
[2021-11-08 14:38] LABS: ABG HCO3 51 mmol/L (21-25); ABG PCO2 73 mmHg (35-45)
[2021-11-08] MEDS: methylPREDNISolone SOD SUCCI 125 MG/2 ML VIAL IV SCH ×3 (14:45→23:36)
[2021-11-08] MEDS: NITROGLYCERIN OINT 1 INCH/GM PACKET TOPICAL SCH ×4 (14:45→22:46)
[2021-11-08] MEDS: FUROSEMIDE 10 MG/ML 4 ML VIAL IV SCH ×2 (14:46→23:37)
[2021-11-08] MEDS ORDERED: DEXTROSE 50% SYRINGE 50 ML IVP PRN ×2 (16:33)
[2021-11-08 18:13] LABS: Glucose,Whole Blood 252 mg/dL (70-110)
[2021-11-08] MEDS: FERROUS SULFATE 325 MG TAB PO SCH (18:44)
[2021-11-08] MEDS: INSULIN ASPART (NovoLOG) 100 UNIT/ML VIAL SQ SCH ×2 (18:44→22:43)
[2021-11-08] MEDS: guaiFENesin-DM 100-10MG/5ML 10 ML CUP PO SCH ×2 (19:00→23:36)
[2021-11-08] MEDS: FORMOTEROL FUMARATE 20 MCG/2 ML NEBU INHALATION SCH (19:47)
[2021-11-08] MEDS: BUDESONIDE 1 MG/2 ML NEBU INHALATION SCH (19:47)
[2021-11-08 22:42] LABS: Glucose,Whole Blood 213 mg/dL (70-110)
[2021-11-08] MEDS: APIXABAN 5 MG TAB PO SCH (22:42)
[2021-11-08] MEDS: FLECAINIDE 50 MG TAB PO SCH (22:43)
[2021-11-08] MEDS: MONTELUKAST 10 MG TAB PO SCH (22:43)
[2021-11-08] MEDS: DOCUSATE 100 MG CAP PO SCH (22:43)
[2021-11-08] MEDS: METOPROLOL TARTRATE 25 MG TAB PO SCH ×2 (22:43→22:45)
--- NOTE | 2021-11-09 02:00 | HP ---
HISTORY AND PHYSICAL CHIEF COMPLAINT: Shortness of breath. HISTORY OF PRESENT ILLNESS: This is a 71-year-old woman with a past medical history of atrial fibrillation, asthma, CHF, multiple medical issues, being followed by Dr. Lopez and Dr. Gallardo in the outpatient, complaining of increased shortness of breath. The patient also has some leg swelling. The patient's chest x-ray showed possible CHF and COPD. The patient admitted for further evaluation and treatment. There is no history of any fever, rigors, chills, headache, loss of consciousness, seizures. PAST MEDICAL HISTORY: Reviewed, includes asthma, atrial fibrillation, COPD, CHF. HOME MEDICATIONS: Again reviewed, include DuoNeb and dose and rest of medications noted. ALLERGIES: Reviewed, include Lasix. FAMILY HISTORY: History of colon cancer. SOCIAL HISTORY: No history of smoking. REVIEW OF SYSTEMS: A 14-point review of systems is negative except as mentioned earlier. PHYSICAL EXAMINATION: VITAL SIGNS: Pulse is 56, blood pressure 108/50, and respirations 20. HEENT: Conjunctivae normal. NECK: No jugular venous distention. No carotid bruit. CARDIOVASCULAR: S1, S2 . RESPIRATION: Bilateral scattered rhonchi and crackles. Expiratory wheezing also present. ABDOMEN: Soft, obese. LEGS: Bilateral leg edema. NERVOUS SYSTEM: Diffusely weak. SKIN: No ulcer. JOINTS: No active deforming arthropathy. LABS: Reviewed and include WBC . Other labs are noted. ASSESSMENT: 1. Congestive heart failure acute exacerbation. 2. Chronic obstructive pulmonary disease. 3. Atelectasis. 4. Atrial fibrillation. 5. History of gastroesophageal reflux disease. 6. Multiple medical issues. RECOMMENDATIONS: This 71-year-old woman presents with multiple complex medical issues. We will monitor the patient closely. I would initiate bronchodilators as well as IV steroids. Also, the patient is allergic to Lasix. We will continue to monitor. Cardiology will be consulted. Guarded prognosis because of multiple complex medical issues. Further recommendations to follow. See orders for further details. Discussed with family. MMAMADOU / MARIETTAN: [id number] /
[2021-11-09] MEDS: IPRATROPIUM-ALBUTEROL 3 ML NEB INHALATION PRN (03:22)
[2021-11-09 05:55] LABS: Glucose,Whole Blood 153 mg/dL (70-110)
[2021-11-09] MEDS: guaiFENesin-DM 100-10MG/5ML 10 ML CUP PO SCH ×4 (06:08→23:26)
[2021-11-09] MEDS: FERROUS SULFATE 325 MG TAB PO SCH ×3 (06:09→17:33)
[2021-11-09] MEDS: PANTOPRAZOLE 40 MG TABLET PO SCH (06:09)
[2021-11-09] MEDS: INSULIN ASPART (NovoLOG) 100 UNIT/ML VIAL SQ SCH ×4 (06:09→20:40)
[2021-11-09] MEDS: methylPREDNISolone SOD SUCCI 125 MG/2 ML VIAL IV SCH (06:09)
[2021-11-09] MEDS: FORMOTEROL FUMARATE 20 MCG/2 ML NEBU INHALATION SCH (07:56)
[2021-11-09] MEDS: IPRATROPIUM-ALBUTEROL 3 ML NEB INHALATION SCH ×4 (07:56→19:53)
[2021-11-09] MEDS: BUDESONIDE 1 MG/2 ML NEBU INHALATION SCH (07:56)
[2021-11-09] MEDS ORDERED: D MANNOSE PO SCH (09:00)
[2021-11-09] MEDS ORDERED: FUROSEMIDE 20 MG TAB PO SCH (09:00)
[2021-11-09] MEDS ORDERED: ASPIRIN 325 MG TAB PO SCH (09:00)
[2021-11-09] MEDS: FUROSEMIDE 10 MG/ML 4 ML VIAL IV SCH (09:26)
[2021-11-09] MEDS: APIXABAN 5 MG TAB PO SCH ×2 (09:26→20:24)
[2021-11-09] MEDS: CHOLECALCIFEROL 25 MCG (1000 IU) TABLET PO SCH (09:26)
[2021-11-09] MEDS: DILTIAZEM CD 180 MG CAP.ER.24H PO SCH (09:26)
[2021-11-09] MEDS: FOLIC ACID 1 MG TAB PO SCH (09:26)
[2021-11-09] MEDS: CALCIUM CARB-VIT D 500 MG-5 MCG TAB PO SCH (09:26)
[2021-11-09] MEDS: FLECAINIDE 50 MG TAB PO SCH ×2 (09:26→20:24)
[2021-11-09] MEDS: METOPROLOL TARTRATE 25 MG TAB PO SCH ×3 (09:26→20:24)
[2021-11-09] MEDS: VITAMIN E (DL,TOCOPHERYL ACET) 400 UNIT (180 MG) CAP PO SCH (09:26)
[2021-11-09] MEDS: MAGNESIUM OXIDE 400 MG TAB PO SCH (09:27)
[2021-11-09] MEDS: DOCUSATE 100 MG CAP PO SCH ×2 (09:27→20:24)
--- NOTE | 2021-11-09 11:46 | P.CRDCN ---
History of Present Illness History of present illness: This is a 71-year-old female past medical history of paroxysmal atrial fibrillation on Eliquis, asthma requiring home oxygen, congestive heart failure, chronic kidney disease. She follows in the office with Dr. Tinajero. We have seen the patient in consultation for congestive heart failure. Patient presents emergency department with complaints of generalized weakness, shortness of breath. Patient was recently discharged from the hospital on 12/04/2021. She states when she went home she felt that she cannot take care of herself, she increased generalized weakness, and increased shortness of breath. She denies any chest pain, leg numbness, dizziness, palpitations, syncope or near syncope. She recently was in the hospital with asthma exacerbation and A fib with RVR from 10/28/2021-11/07/2021. We attempted to control patient's heart rates and were unsuccessful. Patient underwent Cardioversion with Dr. Tinajero on 11/05/2021 Patient required second attempt with 200J to convert to sinus mechanism. She also was managed by pulmonary for asthma exacerbation. She maintained sinus mechanism. She was stabilized and discharged home on 11/07. With a follow up appointment with Dr. Tinajero on 11/13. DIAGNOSTICS * EKG reveals sinus bradycardia, heart rate 54, nonspecific T-wave abnormalities * 10/29/2021 Echocardiogram revealed an EF of 5055 %, both atria are enlarged. Mild to moderate mitral regurgitation * Telemetry tracings indicate sinus mechanism, heart rate 5560s * Chest xray persistent cardiomegaly, more prominent small bilateral pleural effusions. * Laboratory reviewed, VBG 13.7, hemoglobin 9.5, platelets 371, d-dimer negative, sodium 138, potassium 3.4, BUN 31, serum cancer 0.8, proBNP 801, troponin negative * Current home cardiac medications include Lasix 20 mg twice a day, Eliquis 5 mg twice a day, metoprolol titrate 25 mg 3 times a day, Cardizem 180 mg daily, flecainide 150 mg twice a day REVIEW OF SYSTEMS At the time of my exam: CONSTITUTIONAL: Denies fever or chills. CARDIOVASCULAR: Denies chest pain, +shortness of breath, Denies orthopnea, PND or palpitations. RESPIRATORY: Denies cough. GASTROINTESTINAL: Denies abdominal pain, diarrhea, constipation, nausea or vomiting. MUSCULOSKELETAL: Denies myalgias. NEUROLOGIC: Denies numbness, tingling, headacbe or weakness. ENDOCRINE: Denies fatigue, weight change, polydipsia or polyurina. GENITOURINARY: Denies burning, hematuria or urgency with micturation. HEMATOLOGIC: Denies history of anemia or bleeding. PHYSICAL EXAMINATION Blood pressure 109/62, heart 69, afebrile, saturations 94% on 4 L nasal cannula CONSTITUTIONAL: No apparent distress. HEENT: Head is normocephalic. Pupils are equal, round. Sclerae anicteric. Mucous membranes of the mouth are moist. No JVD. No carotid bruit. CHEST EXAMINATION: Lungs are crackles bilateral bases to auscultation. No chest wall tenderness is noted on palpation or with deep breathing. HEART EXAMINATION: Regular rate and rhythm. S1, S2 heard. No murmurs, gallops or rub. ABDOMEN: Soft, nontender. Positive bowel sounds. EXTREMITIES: 2+ peripheral pulses, trace bilateral lower extremity edema and no calf tenderness. NEUROLOGIC EXAMINATION: Patient is awake, alert and oriented x3. ASSESSMENT Acute on chronic heart failure with preserved ejection fraction Increase debility after recent hospital admission Paroxysmal atrial fibrillation with RVR Eliquis recently cardioverted on 11/05/2021, maintaining sinus mechanism History of Asthma with recent exacerbation Acute on chronic heart failure with preserved ejection fraction Chronic kidney disease PLAN Continue IV Lasix for 24 hours, hopefully transition to PO tomorrow Monitor I/Os, daily weights, renal function and electrolytes Continue Eliquis, Cardizem, flecainide, metoprolol tartrate Recommend case management/social work consult for possible Rehab placement, PT/OT Further recommendations based on clinical course Nurse Practitioner note has been reviewed, I agree with a documented findings and plan of care. Patient was seen and examined. Past Medical History Past Medical History: Atrial Fibrillation, Asthma, Cancer, Heart Failure, COPD, GERD/Reflux, Renal Disease, Respiratory Disorder Additional Past Medical History / Comment(s): Past diverticular perforation with surgery/colostomy with eventual reversal, bowel obstruction, home oxygen at HS 2L/NC, compression fractures T7 and T12 and L2 spine, chronic low back pain, osteoporosis, UTIs, sepsis, kidney stone, anemia, skin cancer with removal. History of Any Multi-Drug Resistant Organisms: None Reported Past Surgical History: Appendectomy, Bowel Resection, Cholecystectomy Additional Past Surgical History / Comment(s): Colonoscopies, bowel resection d/t perforation with colostomy, attempted colostomy reversal then exploratory lap with extensive lysis of adhesions, reversal of colostomy/repair of p eristomal and incisional hernia/take down splenic flexure and partial omenectomy/spleenectomy, L eye cataract removed and repair of macular hole, cystoscopy-retrograde pyeloureterogram with stone removal, skin cancer removal. Past Anesthesia/Blood Transfusion Reactions: No Reported Reaction Past Psychological History: No Psychological Hx Reported Additional Psychological History / Comment(s): Pt resides alone. She has home O2 which she wears at HS and a nebulizer. She uses a cane to ambulate and owns a walker. She drives. Smoking Status: Never smoker Past Alcohol Use History: None Reported Past Drug Use History: None Reported - Past Family History Mother Family Medical History: Cancer Additional Family Medical History / Comment(s): COLON CANCER Father Family Medical History: Cancer Additional Family Medical History / Comment(s): stomach CA at age 95 Brother(s) Family Medical History: No Reported History Son(s) Family Medical History: No Reported History Medications and Allergies Home Medications Medication Instructions Recorded Confirmed Type Albuterol Nebulized [Ventolin 2.5 mg INHALATION RT-QID PRN 07/22/16 11/08/21 History Nebulized] Albuterol Sulfate [Proventil Hfa] 2 puff INHALATION RT-QID PRN 07/22/16 11/08/21 History Budesonide/Formoterol Fumarate 2 puff INHALATION RT-BID 07/22/16 11/08/21 History [Symbicort 160-4.5 Mcg Inhaler] Montelukast [Singulair] 10 mg PO HS 07/22/16 11/08/21 History Folic Acid 1 mg PO DAILY 01/19/18 11/08/21 History Apixaban [Eliquis] 5 mg PO BID 05/25/18 11/08/21 History dilTIAZem HCL [Cartia Xt] 180 mg PO DAILY 05/25/18 11/08/21 History Calcium/Vitamin D Chewable 1 tab PO DAILY 01/05/21 11/08/21 History D-[place] 1,400 mg PO DAILY 01/05/21 11/08/21 History Fennel Tea 1 dose PO DAILY PRN 01/05/21 11/08/21 History Magnesium Oxide [Mag-Ox] 400 mg PO DAILY 01/05/21 11/08/21 History Calcitonin Nasal [Fortical 1 spr NASAL DAILY 10/28/21 11/08/21 History (Miacalcin)] Cholecalciferol [Vitamin D3 (25 25 mcg PO DAILY 10/28/21 11/08/21 History Mcg = 1000 Iu)] Fluticasone Nasal [place] [Flonase 2 spr EA NOSTRIL DAILY 10/28/21 11/08/21 History Nasal [place]] Umeclidinium [place] [Incruse 1 puff INHALATION RT-DAILY 10/28/21 11/08/21 History Ellipta] Vitamin E (Dl,Tocopheryl Acet) 400 unit PO DAILY 10/28/21 11/08/21 History [Vitamin E (400 Iu = 180 mg)] Docusate [Colace] 100 mg PO BID cap 11/07/21 11/08/21 Rx Ferrous Sulfate [Iron (65 MG 325 mg PO TID-W/MEALS #90 tab 11/07/21 11/08/21 Rx Elemental)] Flecainide [Tambocor] 150 mg PO BID #180 tab 11/07/21 11/08/21 Rx Furosemide [Lasix] 20 mg PO BID@0900,1600 30 Days #60 11/07/21 11/08/21 Rx tab Ipratropium-Albuterol Nebulize 3 ml INHALATION Q4H PRN each 11/07/21 11/08/21 Rx [Duoneb 0.5 mg-3 mg/3 ml Soln] Ipratropium-Albuterol Nebulize 3 ml INHALATION RT-Q4H #120 each 11/07/2111/08 Rx [Duoneb 0.5 mg-3 mg/3 ml Soln] Metoprolol Tartrate [Lopressor] 25 mg PO TID #90 tab 11/07/21 11/08/21 Rx guaiFENesin-DM 100-10MG/5ML 10 ml PO Q6HR #240 ml 11/07/21 11/08/21 Rx [Robitussin DM] Acetaminophen Tab [Tylenol] 650 mg PO Q6H PRN 11/08/21 11/08/21 History predniSONE See Taper PO DIRECTED 11/08/21 11/08/21 History Allergies Allergy/AdvReac Type Severity Reaction Status Date / Time furosemide [From Lasix] Allergy Rash/Hives(patient Verified 11/08/21 14:21 has had since without reaction-10/28/21) cephalexin [From Keflex] AdvReac Diarrhea Verified 11/08/21 14:21 morphine AdvReac Hallucinati Verified 11/08/21 14:21 ons/Agitati on Physical Exam Vitals: Vital Signs Temp Pulse Pulse Resp BP BP Pulse Ox 11/09/21 03:40 64 11/09/21 03:39 98.5 F 62 18 105/55 95 11/09/21 03:23 60 92 L 11/08/21 23:00 97.7 F 64 18 100/57 95 11/08/21 22:44 59 L 16 91/56 96 11/08/21 20:12 60 11/08/21 20:05 60 11/08/21 19:49 57 L 11/08/21 18:42 58 L 18 100/58 97 11/08/21 14:40 88 18 11/08/21 14:34 88 18 11/08/21 12:30 20 11/08/21 12:22 98.0 F 56 L 20 108/50 96 FiO2 11/09/21 03:40 11/09/21 03:39 11/09/21 03:23 36 11/08/21 23:00 11/08/21 22:44 11/08/21 20:12 11/08/21 20:05 11/08/21 19:49 11/08/21 18:42 11/08/21 14:40 11/08/21 14:34 11/08/21 12:30 11/08/21 12:22 Intake and Output 11/08/21 11/09/21 11/09/21 22:59 06:59 14:59 Output Total 500 300 Balance -500 -300 Output: Urine 500 300 Other: Voiding Method Bedside Commode Weight 79.6 kg Results 11/08/21 13:03 11/08/21 13:03 Cardiac Enzymes 11/08/21 11/08/21 Range/Units 13:03 13:03 AST 29 (14-36) U/L Troponin I <0.012 (0.000-0.034) ng/mL Coagulation 11/08/21 Range/Units 13:03 PT 10.6 (9.0-12.0) sec APTT 22.2 (22.0-30.0) sec CBC 11/08/21 Range/Units 13:03 WBC 13.7 H (3.8-10.6) k/uL RBC 4.09 (3.80-5.40) m/uL Hgb 9.5 L (11.4-16.0) gm/dL Hct 33.8 L (34.0-46.0) % Plt Count 371 (150-450) k/uL Comprehensive Metabolic Panel 11/08/21 Range/Units 13:03 Sodium 138 (137-145) mmol/L Potassium 3.4 L (3.5-5.1) mmol/L Chloride 85 L (98-107) mmol/L Carbon Dioxide 50 H* (22-30) mmol/L BUN 31 H (7-17) mg/dL Creatinine 0.85 (0.52-1.04) mg/dL Glucose 119 H (74-99) mg/dL Calcium 8.6 (8.4-10.2) mg/dL AST 29 (14-36) U/L ALT 76 H (4-34) U/L Alkaline Phosphatase 85 (38-126) U/L Total Protein 6.1 L (6.3-8.2) g/dL Albumin 3.6 (3.5-5.0) g/dL Current Medications Generic Name Dose Route Start Last Admin Trade Name Freq PRN Reason Stop Dose Admin Acetaminophen 650 mg 11/08/21 16:30 Acetaminophen Tab 325 Mg Tab PO Q6H PRN Fever and/ or Pain Albuterol/Ipratropium 3 ml 11/08/21 16:00 11/08/21 19:47 Ipratropium-Albuterol 3 Ml Neb INHALATION 3 ml RT-QID MARGARITA Administration Albuterol/Ipratropium 3 ml 11/08/21 14:12 11/09/21 03:22 Ipratropium-Albuterol 3 Ml Neb INHALATION 3 ml RT-Q2H PRN Administration Shortness Of Breath Or Wheezing Apixaban 5 mg 11/08/21 21:00 11/08/21 22:42 Apixaban 5 Mg Tab PO 5 mg BID MARGARITA Administration Protocol Aspirin 325 mg 11/09/21 09:00 Aspirin 325 Mg Tab PO DAILY [facility] Budesonide 1 mg 11/08/21 20:00 11/08/21 19:47 Budesonide 1 Mg/2 Ml Nebu INHALATION 1 mg RT-BID [facility] Administration Calcitonin [place] 1 spray 11/09/21 09:00 Calcitonin 200 Correction/1 Nasal [place] 3.7ml Btl NASAL DAILY [facility] Calcium Carbonate 1 each 11/09/21 09:00 Calcium Carb-Vit D 500 Mg-5 Mcg Tab PO DAILY [facility] Cholecalciferol 25 mcg 11/09/21 09:00 Cholecalciferol 25 Mcg (1000 Iu) Tablet PO DAILY [facility] Dextrose/Water 25 ml 11/08/21 16:33 Dextrose 50% Syringe 50 Ml IVP PER PROTOCOL PRN Hypoglycemia Protocol Dextrose/Water 50 ml 11/08/21 16:33 Dextrose 50% Syringe 50 Ml IVP PER PROTOCOL PRN Hypoglycemia Protocol Diltiazem HCl 180 mg 11/09/21 09:00 Diltiazem Cd 180 Mg Cap.Er.24h PO DAILY [facility] Docusate Sodium 100 mg 11/08/21 21:00 11/08/21 22:43 Docusate 100 Mg Cap PO 100 mg BID [facility] Administration Ferrous Sulfate 325 mg 11/08/21 17:30 11/09/21 06:09 Ferrous Sulfate 325 Mg Tab PO 325 mg TID-W/MEALS [facility] Administration Flecainide Acetate 150 mg 11/08/21 21:00 11/08/21 22:43 Flecainide 50 Mg Tab PO 150 mg BID [facility] Administration Fluticasone Propionate 2 spray 11/09/21 09:00 Fluticasone 50mcg/[place] Nasal 16gm EA NOSTRIL DAILY [facility] Folic Acid 1 mg 11/09/21 09:00 Folic Acid 1 Mg Tab PO DAILY [facility] Formoterol Fumarate 20 mcg 11/08/21 20:00 11/08/21 19:47 Formoterol Fumarate 20 Mcg/2 Ml Nebu INHALATION 20 mcg RT-BID MARGARITA Administration Furosemide 40 mg 11/08/21 14:15 11/08/21 23:37 Furosemide 10 Mg/Ml 4 Ml Vial IV 40 mg Q8HR MARGARITA Administration Furosemide 20 mg 11/09/21 09:00 Furosemide 20 Mg Tab PO BID@0900,1600 [facility] Guaifenesin/Dextromethorphan 10 ml 11/08/21 18:00 11/09/21 06:08 Guaifenesin-Dm 100-10mg/5ml 10 Ml Cup PO 10 ml Q6HR MARGARITA Administration Insulin Aspart 0 unit 11/08/21 17:30 11/09/21 06:09 Insulin Aspart (Novolog) 100 Unit/Ml Vial SQ 1 unit ACHS MARGARITA Administration Protocol Magnesium Oxide 400 mg 11/09/21 09:00 Magnesium Oxide 400 Mg Tab PO DAILY [facility] Methylprednisolone Sodium Succinate 60 mg 11/08/21 14:15 11/09/21 06:09 Methylprednisolone Sod Succi 125 Mg/2 Ml Vial IV 60 mg Q6HR MARGARITA Administration Metoprolol Tartrate 25 mg 11/08/21 22:00 11/08/21 22:45 Metoprolol Tartrate 25 Mg Tab PO Not Given TID [facility] Montelukast Sodium 10 mg 11/08/21 21:00 11/08/21 22:43 Montelukast 10 Mg Tab PO 10 mg HS MARGARITA Administration Naloxone HCl 0.2 mg 11/08/21 14:12 Naloxone 0.4 Mg/Ml 1 Ml Vial IVP Q2M PRN Opioid Reversal Nitroglycerin 1 inch 11/08/21 14:15 11/08/21 22:46 Nitroglycerin Oint 1 Inch/Gm Packet TOPICAL Not Given QID [facility] Pantoprazole Sodium 40 mg 11/09/21 07:30 11/09/21 06:09 Pantoprazole 40 Mg Tablet PO 40 mg [id number] [facility] Administration Vitamin E 400 unit 11/09/21 09:00 Vitamin E (Dl,Tocopheryl Acet) 400 Unit (180 Mg) Cap PO DAILY [facility] Intake and Output 11/08/21 11/09/21 11/09/21 22:59 06:59 14:59 Output Total 500 300 Balance -500 -300 Output: Urine 500 300 Other: Voiding Method Bedside Commode Weight 79.6 kg 11/08/21 13:03 11/08/21 13:03
[2021-11-09 12:07] LABS: Glucose,Whole Blood 167 mg/dL (70-110)
--- NOTE | 2021-11-09 12:08 | P.CNPUL ---
History of Present Illness Consult date: 11/09/21 Requesting physician: Red Casey Reason for consult: asthma, COPD, hypoxemia, other Chief complaint: Weakness. History of present illness: Pulmonary/critical care consult dated 11/09/2021. 71-year-old female who was recently discharged from this hospital, on November 07. She was in the hospital, on her last visit, because of atrial fibrillation with rapid ventricular response. She underwent cardioversion, and reverted back to normal sinus rhythm. She was discharged on November 07, and apparently was reevaluated on November 08 in the emergency room. The reason for coming back into the hospital, was because of profound weakness. The patient states that when she got home, she could barely pull herself out of bed. She feels like she probably needs either a care home or rehabilitation. She denies shortness of breath, more so than when she was here last. She does have a history of und erlying COPD/asthma. Other medical problems include atrial fibrillation, heart failure, gastroesophageal reflux disease, diverticular perforation with colostomy and reversal, bowel obstruction, osteoporosis, kidney stones, and compression fracture. Laboratory data includes a white count 13.7, hemoglobin 9.5, hematocrit 33.8, and a platelet count of 371,000. A blood gas shows a pO2 of 88, pCO2 73, and a pH is 7.46. Sodium 138, potassium 3.4, chlorides 85, CO2 50, BUN 31, and creatinine 0.85. N-terminal proBNP was 801. Troponin was less than 0.012. Chest x-ray was consistent with mild fluid overload. Review of Systems REVIEW OF SYSTEMS: CONSTITUTIONAL: Weakness. NEUROLOGIC: [ Negative.] HEENT: [ Negative.] CARDIAC: [Negative.] PULMONARY: Chronic shortness of breath. GI: [Negative.] : [Negative.] RHEUMATOLOGIC: [ Negative.] IMMUNOLOGIC: [ Negative.] ENDOCRINE: [Negative. ] DERMATOLOGIC: [Negative.] Past Medical History Past Medical History: Atrial Fibrillation, Asthma, Cancer, Heart Failure, COPD, GERD/Reflux, Renal Disease, Respiratory Disorder Additional Past Medical History / Comment(s): Past diverticular perforation with surgery/colostomy with eventual reversal, bowel obstruction, home oxygen at HS 2L/NC, compression fractures T7 and T12 and L2 spine, chronic low back pain, osteoporosis, UTIs, sepsis, kidney stone, anemia, skin cancer with removal. History of Any Multi-Drug Resistant Organisms: None Reported Past Surgical History: Appendectomy, Bowel Resection, Cholecystectomy Additional Past Surgical History / Comment(s): Colonoscopies, bowel resection d/t perforation with colostomy, attempted colostomy reversal then exploratory lap with extensive lysis of adhesions, reversal of colostomy/repair of peristomal and incisional hernia/take down splenic flexure and partial omenectomy/spleenectomy, L eye cataract removed and repair of macular hole, cystoscopy-retrograde pyeloureterogram with stone removal, skin cancer removal. Past Anesthesia/Blood Transfusion Reactions: No Reported Reaction Past Psychological History: No Psychological Hx Reported Additional Psychological History / Comment(s): Pt resides alone. She has home O2 which she wears at HS and a nebulizer. She uses a cane to ambulate and owns a walker. She drives. Smoking Status: Never smoker Past Alcohol Use History: None Reported Past Drug Use History: None Reported - Past Family History Mother Family Medical History: Cancer Additional Family Medical History / Comment(s): COLON CANCER Father Family Medical History: Cancer Additional Family Medical History / Comment(s): stomach CA at age 95 Brother(s) Family Medical History: No Reported History Son(s) Family Medical History: No Reported History Medications and Allergies Home Medications Medication Instructions Recorded Confirmed Type Albuterol Nebulized [Ventolin 2.5 mg INHALATION RT-QID PRN 07/22/16 11/08/21 History Nebulized] Albuterol Sulfate [Proventil Hfa] 2 puff INHALATION RT-QID PRN 07/22/16 11/08/21 History Budesonide/Formoterol Fumarate 2 puff INHALATION RT-BID 07/22/16 11/08/21 History [Symbicort 160-4.5 Mcg Inhaler] Montelukast [Singulair] 10 mg PO HS 07/22/16 11/08/21 History Folic Acid 1 mg PO DAILY 01/19/18 11/08/21 History Apixaban [Eliquis] 5 mg PO BID 05/25/18 11/08/21 History dilTIAZem HCL [Cartia Xt] 180 mg PO DAILY 05/25/18 11/08/21 History Calcium/Vitamin D Chewable 1 tab PO DAILY 01/05/21 11/08/21 History D-Mannose 1,400 mg PO DAILY 01/05/21 11/08/21 History Fennel Tea 1 dose PO DAILY PRN 01/05/21 11/08/21 History Magnesium Oxide [Mag-Ox] 400 mg PO DAILY 01/05/21 11/08/21 History Calcitonin Nasal [Fortical 1 spr NASAL DAILY 10/28/21 11/08/21 History (Miacalcin)] Cholecalciferol [Vitamin D3 (25 25 mcg PO DAILY 10/28/21 11/08/21 History Mcg = 1000 Iu)] Fluticasone Nasal [place] [Flonase 2 spr EA NOSTRIL DAILY 10/28/21 11/08/21 History Nasal [place]] Umeclidinium [place] [Incruse 1 puff INHALATION RT-DAILY 10/28/21 11/08/21 History Ellipta] Vitamin E (Dl,Tocopheryl Acet) 400 unit PO DAILY 10/28/21 11/08/21 History [Vitamin E (400 Iu = 180 mg)] Docusate [Colace] 100 mg PO BID cap 11/07/21 11/08/21 Rx Ferrous Sulfate [Iron (65 MG 325 mg PO TID-W/MEALS #90 tab 11/07/21 11/08/21 Rx Elemental)] Flecainide [Tambocor] 150 mg PO BID #180 tab 11/07/21 11/08/21 Rx Furosemide [Lasix] 20 mg PO BID@0900,1600 30 Days #60 11/07/21 11/08/21 Rx tab Ipratropium-Albuterol Nebulize 3 ml INHALATION Q4H PRN each 11/07/21 11/08/21 Rx [Duoneb 0.5 mg-3 mg/3 ml Soln] Ipratropium-Albuterol Nebulize 3 ml INHALATION RT-Q4H #120 each 11/07/21 11/08/21 Rx [Duoneb 0.5 mg-3 mg/3 ml Soln] Metoprolol Tartrate [Lopressor] 25 mg PO TID #90 tab 11/07/21 11/08/21 Rx guaiFENesin-DM 100-10MG/5ML 10 ml PO Q6HR #240 ml 11/07/21 11/08/21 Rx [Robitussin DM] Acetaminophen Tab [Tylenol] 650 mg PO Q6H PRN 11/08/21 11/08/21 History predniSONE See Taper PO DIRECTED 11/08/21 11/08/21 History Allergies Allergy/AdvReac Type Severity Reaction Status Date / Time furosemide [From Lasix] Allergy Rash/Hives(patient Verified 11/08/21 14:21 has had since without reaction-10/28/21) cephalexin [From Keflex] AdvReac Diarrhea Verified 11/08/21 14:21 morphine AdvReac Hallucinati Verified 11/08/21 14:21 ons/Agitati on Physical Exam Osteopathic Statement: *. No significant issues noted on an osteopathic struc tural exam other than those noted in the History and Physical/Consult. Vitals: Vital Signs Temp Pulse Pulse Resp BP BP Pulse Ox 11/09/21 11:46 74 11/09/21 09:21 97.7 F 69 17 109/62 95 11/09/21 08:25 78 11/09/21 08:12 72 11/09/21 08:11 72 11/09/21 08:00 96 11/09/21 07:59 74 11/09/21 03:40 64 11/09/21 03:39 98.5 F 62 18 105/55 95 11/09/21 03:23 60 92 L 11/08/21 23:00 97.7 F 64 18 100/57 95 11/08/21 22:44 59 L 16 91/56 96 11/08/21 20:12 60 11/08/21 20:05 60 11/08/21 19:49 57 L 11/08/21 18:42 58 L 18 100/58 97 11/08/21 14:40 88 18 11/08/21 14:34 88 18 11/08/21 12:30 20 11/08/21 12:22 98.0 F 56 L 20 108/50 96 FiO2 11/09/21 11:46 11/09/21 09:21 11/09/21 08:25 11/09/21 08:12 11/09/21 08:11 11/09/21 08:00 11/09/21 07:59 11/09/21 03:40 11/09/21 03:39 11/09/21 03:23 36 11/08/21 23:00 11/08/21 22:44 11/08/21 20:12 11/08/21 20:05 11/08/21 19:49 11/08/21 18:42 11/08/21 14:40 11/08/21 14:34 11/08/21 12:30 11/08/21 12:22 Intake and Output 11/08/21 11/09/21 11/09/21 22:59 06:59 14:59 Output Total 500 300 Balance -500 -300 Output: Urine 500 300 Other: Voiding Method Bedside Commode Weight 79.6 kg No acute distress, oriented 3. No respiratory distress, conversational dyspnea, or use of accessory muscles. HEENT examination is grossly unremarkable. Neck supple. Full range of motion. No adenopathy thyromegaly or neck vein distention. Cardiovascular examination reveals regular rhythm rate. S1-S2 normal. No S3 or S4. No discernible murmur noted. Heart rate 76 bpm. Lungs reveal mostly clear breath sounds. Minimal basilar crackles. No wheezes. Minimal rhonchi. 4 L saturations 95%. Abdomen soft bowel sounds are heard. No masses or tenderness. Extremities are intact. No cyanosis clubbing or edema. Skin is without rash or lesion. Neurologic examination is brief but nonfocal. Results - Laboratory Findings CBC and BMP: 11/08/21 13:03 11/08/21 13:03 ABG ABG pH 7.46 (7.35-7.45) H 11/08/21 14:33 ABG pCO2 73 mmHg (35-45) H* 11/08/21 14:33 ABG pO2 88 mmHg (83-108) 11/08/21 14:33 ABG O2 Saturation 95.4 % (94-97) 11/08/21 14:33 PT/INR, D-dimer PT 10.6 sec (9.0-12.0) 11/08/21 13:03 INR 1.0 (<1.2) 11/08/21 13:03 D-Dimer 0.33 mg/L FEU (<0.60) 11/08/21 13:03 Abnormal lab findings: Abnormal Labs 11/08/21 11/08/21 11/08/21 13:03 13:03 13:03 WBC 13.7 H Hgb 9.5 L Hct 33.8 L MCH 23.3 L MCHC 28.3 L RDW 18.9 H Neutrophils # 12.8 H Lymphocytes # 0.4 L ABG pH ABG pCO2 ABG HCO3 ABG Total CO2 VBG pH VBG pCO2 VBG HCO3 Potassium 3.4 L Chloride 85 L Carbon Dioxide 50 H* BUN 31 H Glucose 119 H POC Glucose (mg/dL) Hemoglobin A1c 6.1 H ALT 76 H Total Protein 6.1 L 11/08/21 11/08/21 11/08/21 14:07 14:33 18:11 WBC Hgb Hct MCH MCHC RDW Neutrophils # Lymphocytes # ABG pH 7.46 H ABG pCO2 73 H* ABG HCO3 51 H* ABG Total CO2 54 H VBG pH 7.48 H VBG pCO2 69 H VBG HCO3 51 H Potassium Chloride Carbon Dioxide BUN Glucose POC Glucose (mg/dL) 252 H Hemoglobin A1c ALT Total Protein 11/08/21 11/09/21 22:41 05:53 WBC Hgb Hct MCH MCHC RDW Neutrophils # Lymphocytes # ABG pH ABG pCO2 ABG HCO3 ABG Total CO2 VBG pH VBG pCO2 VBG HCO3 Potassium Chloride Carbon Dioxide BUN Glucose POC Glucose (mg/dL) 213 H 153 H Hemoglobin A1c ALT Total Protein - Diagnostic Findings Chest x-ray: image reviewed Assessment and Plan Assessment: Profound weakness, following recent admission for atrial fibrillation/RVR, requiring cardioversion. Chronic and slightly worsening shortness of breath, secondary to mild fluid overload. Acute on chronic hypoxemic respiratory failure. Acute diastolic CHF. Acute anemia, with suspected chronic GI blood losses. History of severe persistent asthma. Prior history of diverticular perforation, status post colostomy and subsequent reversal. T7, T12 and L2 compression fractures. Chronic low back pain. History of kidney stones. History of osteoporosis. History of splenectomy. Plan: Plan dated 11/09/2021. The patient appears to be relatively stable at this time. She's on 4 L. The patient is being evaluated for possible placement, and rehab. She states that she cannot manage herself at home at this time. Her asthma seems to be well controlled. Chest x-ray suggest some mild fluid overload. She was discharged home on Lasix. We will continue to follow her and make recommendations along the way. Prognosis is guarded. Time with Patient: Greater than 30
[2021-11-09 12:13] LABS: Calcium 8.6 mg/dL (8.4-10.2); Potassium 3.2 mmol/L (3.5-5.1)
[2021-11-09 12:18] LABS: Anisocytosis Slight; Basophils % (A) 0 %; Eosinophils % (A) 0 %; HCT 32.9 % (34.0-46.0); HGB 9.2 gm/dL (11.4-16.0); Hypochromasia Marked; Lymphocytes # (A) 0.2 k/uL (1.0-4.8); Lymphocytes % (A) 1 %; MCH 22.8 pg (25.0-35.0); MCHC 28.1 g/dL (31.0-37.0); MCV 81.2 fL (80.0-100.0); Mean Platelet Volume 8.5; Microcytosis Slight; Monocytes # (A) 0.6 k/uL (0-1.0); Monocytes % (A) 4 %; Neutrophils # (A) 14.4 k/uL (1.3-7.7); Neutrophils % (A) 95 %; Platelet Count 369 k/uL (150-450); Poikilocytosis Slight; RBC 4.05 m/uL (3.80-5.40); RDW 19.5 % (11.5-15.5); WBC 15.3 k/uL (3.8-10.6)
[2021-11-09 13:02] LABS: Poikilocytosis (M) Present
[2021-11-09] MEDS: CALCITONIN 200 USP/1 NASAL SPRAY 3.7ML BTL NASAL SCH (14:07)
[2021-11-09] MEDS: FLUTICASONE 50MCG/SPRAY NASAL 16GM EA NOSTRIL SCH (14:10)
[2021-11-09] MEDS: predniSONE 10 MG TAB PO SCH (14:23)
[2021-11-09 16:09] VITALS: BMI 30.1
[2021-11-09 16:55] LABS: Glucose,Whole Blood 146 mg/dL (70-110)
--- NOTE | 2021-11-09 17:50 | P.PN ---
Subjective Progress Note Date: 11/09/21 71-year-old female who was recently discharged from this hospital, on November 07. She was in the hospital, on her last visit, because of atrial fibrillation with rapid ventricular response. She underwent cardioversion, and reverted back to normal sinus rhythm. She was discharged on November 07, and apparently was reevaluated on November 08 in the emergency room. The reason for coming back into the hospital, was because of profound weakness. The patient states that when she got home, she could barely pull herself out of bed. She feels like she probably needs either a intermediate or rehabilitation. She denies shortness of breath, more so than when she was here last. She does have a history of under lying COPD/asthma. Other medical problems include atrial fibrillation, heart failure, gastroesophageal reflux disease, diverticular perforation with colostomy and reversal, bowel obstruction, osteoporosis, kidney stones, and compression fracture. Laboratory data includes a white count 13.7, hemoglobin 9.5, hematocrit 33.8, and a platelet count of 371,000. A blood gas shows a pO2 of 88, pCO2 73, and a pH is 7.46. Sodium 138, potassium 3.4, chlorides 85, CO2 50, BUN 31, and creatinine 0.85. N-terminal proBNP was 801. Troponin was less than 0.012. Chest x-ray was consistent with mild fluid overload. Objective - Vital Signs Vital signs: Vital Signs Temp 97.7 F 11/09/21 09:21 Pulse 69 11/09/21 09:21 Resp 17 11/09/21 09:21 BP 109/62 11/09/21 09:21 Pulse Ox 95 11/09/21 09:21 FiO2 36 11/09/21 03:23 Intake & Output 11/08/21 11/09/21 11/09/21 18:59 06:59 18:59 Output Total 800 Balance -800 Weight 84.822 kg 79.6 kg Output: Urine 800 Other: Voiding Method Bedside Commode - Exam PHYSICAL EXAMINATION: GENERAL: The patient is alert and oriented x3, not in any acute distress. Well developed, well nourished. HEENT: Pupils are round and equally reacting to light. EOMI. No scleral icterus. No conjunctival pallor. Normocephalic, atraumatic. No pharyngeal erythema. No thyromegaly. CARDIOVASCULAR: S1 and S2 present. No murmurs, rubs, or gallops. PULMONARY: Chest is clear to auscultation, no wheezing or crackles. ABDOMEN: Soft, nontender, nondistended, normoactive bowel sounds. No palpable or ganomegaly. MUSCULOSKELETAL: No joint swelling or deformity. EXTREMITIES: No cyanosis, clubbing, or pedal edema. NEUROLOGICAL: Gross neurological examination did not reveal any focal deficits. SKIN: No rashes. - Labs CBC & Chem 7: 11/09/21 11:41 11/09/21 11:41 Labs: Abnormal Lab Results - Last 24 Hours (Table) 11/08/21 11/08/21 11/08/21 Range/Units 13:03 13:03 13:03 WBC 13.7 H (3.8-10.6) k/uL Hgb 9.5 L (11.4-16.0) gm/dL Hct 33.8 L (34.0-46.0) % MCH 23.3 L (25.0-35.0) pg MCHC 28.3 L (31.0-37.0) g/dL RDW 18.9 H (11.5-15.5) % Neutrophils # 12.8 H (1.3-7.7) k/uL Lymphocytes # 0.4 L (1.0-4.8) k/uL ABG pH (7.35-7.45) ABG pCO2 (35-45) mmHg ABG HCO3 (21-25) mmol/L ABG Total CO2 (19-24) mmol/L VBG pH (7.31-7.41) VBG pCO2 (37-51) mmHg VBG HCO3 (24-28) mmol/L Potassium 3.4 L (3.5-5.1) mmol/L Chloride 85 L (98-107) mmol/L Carbon Dioxide 50 H* (22-30) mmol/L BUN 31 H (7-17) mg/dL Glucose 119 H (74-99) mg/dL POC Glucose (mg/dL) (70-110) mg/dL Hemoglobin A1c 6.1 H (0.0-6.0) % ALT 76 H (4-34) U/L Total Protein 6.1 L (6.3-8.2) g/dL 11/08/21 11/08/21 11/08/21 Range/Units 14:07 14:33 18:11 WBC (3.8-10.6) k/uL Hgb (11.4-16.0) gm/dL Hct (34.0-46.0) % MCH (25.0-35.0) pg MCHC (31.0-37.0) g/dL RDW (11.5-15.5) % Neutrophils # (1.3-7.7) k/uL Lymphocytes # (1.0-4.8) k/uL ABG pH 7.46 H (7.35-7.45) ABG pCO2 73 H* (35-45) mmHg ABG HCO3 51 H* (21-25) mmol/L ABG Total CO2 54 H (19-24) mmol/L VBG pH 7.48 H (7.31-7.41) VBG pCO2 69 H (37-51) mmHg VBG HCO3 51 H (24-28) mmol/L Potassium (3.5-5.1) mmol/L Chloride (98-107) mmol/L Carbon Dioxide (22-30) mmol/L BUN (7-17) mg/dL Glucose (74-99) mg/dL POC Glucose (mg/dL) 252 H (70-110) mg/dL Hemoglobin A1c (0.0-6.0) % ALT (4-34) U/L Total Protein (6.3-8.2) g/dL 11/08/21 11/09/21 Range/Units 22:41 05:53 WBC (3.8-10.6) k/uL Hgb (11.4-16.0) gm/dL Hct (34.0-46.0) % MCH (25.0-35.0) pg MCHC (31.0-37.0) g/dL RDW (11.5-15.5) % Neutrophils # (1.3-7.7) k/uL Lymphocytes # (1.0-4.8) k/uL ABG pH (7.35-7.45) ABG pCO2 (35-45) mmHg ABG HCO3 (21-25) mmol/L ABG Total CO2 (19-24) mmol/L VBG pH (7.31-7.41) VBG pCO2 (37-51) mmHg VBG HCO3 (24-28) mmol/L Potassium (3.5-5.1) mmol/L Chloride (98-107) mmol/L Carbon Dioxide (22-30) mmol/L BUN (7-17) mg/dL Glucose (74-99) mg/dL POC Glucose (mg/dL) 213 H 153 H (70-110) mg/dL Hemoglobin A1c (0.0-6.0) % ALT (4-34) U/L Total Protein (6.3-8.2) g/dL Assessment and Plan Assessment: 1. Acute on chronic hypoxic respiratory failure 2. Acute exacerbation diastolic CHF 3. Acute anemia likely related to chronic GI blood loss 4. Acute exacerbation COPD/asthma 5. Chronic back pain related to compression fractures T7, T12 and L2 6. History of osteoporosis Patient is currently on O2 at 4 L per nasal cannula; remains on Lasix 40 mg every 12 hours; we will continue to monitor strict CHAY's, daily weights, renal function and electrolytes; low-salt and fluid restricted diet; cardiology recommending to continue Eliquis, Cardizem, flecainide, metoprolol tartrate -- has been switched to oral prednisone with plans for a quick taper - PT/OT on board for evaluation for possible placement to rehab
[2021-11-09] MEDS: SYMBICORT 160-4.5 MCG INHALER INHALATION SCH (19:53)
[2021-11-09] MEDS: MONTELUKAST 10 MG TAB PO SCH (20:24)
[2021-11-09 20:36] LABS: Glucose,Whole Blood 218 mg/dL (70-110)
[2021-11-09] MEDS ORDERED: FUROSEMIDE 10 MG/ML 4 ML VIAL IV SCH (21:00)
[2021-11-10] MEDS: IPRATROPIUM-ALBUTEROL 3 ML NEB INHALATION PRN ×3 (00:08→23:13)
[2021-11-10 06:23] LABS: Glucose,Whole Blood 116 mg/dL (70-110)
[2021-11-10] MEDS: INSULIN ASPART (NovoLOG) 100 UNIT/ML VIAL SQ SCH ×4 (06:24→20:19)
[2021-11-10] MEDS: FERROUS SULFATE 325 MG TAB PO SCH ×3 (06:27→17:21)
[2021-11-10] MEDS: PANTOPRAZOLE 40 MG TABLET PO SCH (06:27)
[2021-11-10] MEDS: SYMBICORT 160-4.5 MCG INHALER INHALATION SCH ×2 (07:45→19:32)
[2021-11-10] MEDS: IPRATROPIUM-ALBUTEROL 3 ML NEB INHALATION SCH ×4 (07:45→19:32)
--- NOTE | 2021-11-10 08:21 | P.PN ---
Subjective Progress Note Date: 11/10/21 Principal diagnosis: Paroxysmal atrial fibrillation The patient is a pleasant 71-year-old female patient with a past medical history significant for paroxysmal atrial fibrillation as well as history of heart failure with preserved ejection fraction and also history of asthma/COPD presented to the hospital with generalized weakness and increasing shortness of breath. She was diagnosed with heart failure exacerbation as well as COPD exacerbation. She was seen this morning. She stated that she is feeling better internal shortness of breath. The lower extremities edema has improved somewhat. She reports no pain in the chest. No dizziness or lightheadedness beach she co ntinues to maintain normal sinus mechanism was sinus bradycardia which is asymptomatic pH she continues to be on oral anticoagulation. The creatinine is a slightly worse. I'm going to decrease the dose of Lasix IV and continue monitor the patient for the next 24 hours clinically as well as monitor the kidney function and electrolytes. Objective - Vital Signs Vital signs: Vital Signs Temp 98.2 F 11/10/21 04:00 Pulse 52 L 11/10/21 08:01 Resp 19 11/10/21 04:00 BP 122/70 11/10/21 04:00 Pulse Ox 95 11/10/21 04:00 FiO2 36 11/09/21 03:23 Intake & Output 11/09/21 11/10/21 11/10/21 18:59 06:59 18:59 Output Total 200 Balance -200 Weight 79.6 kg 79 kg Output: Urine 200 Other: Voiding Method Bedside Commode # Voids 2 1 - Constitutional General appearance: Present: no acute distress - Respiratory Respiratory: bilateral: diminished - Cardiovascular Rhythm: regular Heart sounds: normal: S1, S2 - Labs CBC & Chem 7: 11/09/21 11:41 11/09/21 11:41 Labs: Abnormal Lab Results - Last 24 Hours (Table) 11/09/21 11/09/21 11/09/21 Range/Units 11:41 11:41 12:06 WBC 15.3 H (3.8-10.6) k/uL Hgb 9.2 L (11.4-16.0) gm/dL Hct 32.9 L (34.0-46.0) % MCH 22.8 L (25.0-35.0) pg MCHC 28.1 L (31.0-37.0) g/dL RDW 19.5 H (11.5-15.5) % Neutrophils # 14.4 H (1.3-7.7) k/uL Lymphocytes # 0.2 L (1.0-4.8) k/uL Potassium 3.2 L (3.5-5.1) mmol/L Chloride 81 L (98-107) mmol/L Carbon Dioxide 50 H* (22-30) mmol/L BUN 35 H (7-17) mg/dL Creatinine 1.09 H (0.52-1.04) mg/dL Glucose 142 H (74-99) mg/dL POC Glucose (mg/dL) 167 H (70-110) mg/dL 11/09/21 11/09/21 11/10/21 Range/Units 16:53 20:34 06:21 WBC (3.8-10.6) k/uL Hgb (11.4-16.0) gm/dL Hct (34.0-46.0) % MCH (25.0-35.0) pg MCHC (31.0-37.0) g/dL RDW (11.5-15.5) % Neutrophils # (1.3-7.7) k/uL Lymphocytes # (1.0-4.8) k/uL Potassium (3.5-5.1) mmol/L Chloride (98-107) mmol/L Carbon Dioxide (22-30) mmol/L BUN (7-17) mg/dL Creatinine (0.52-1.04) mg/dL Glucose (74-99) mg/dL POC Glucose (mg/dL) 146 H 218 H 116 H (70-110) mg/dL Assessment and Plan Assessment: Assessment #1 paroxysmal atrial fibrillation #2 heart failure with preserved ejection fraction exacerbation #3 COPD exacerbation #4 acute on chronic renal failure Plan #1 decrease the dose of Lasix #2 continue monitor the kidney function and electrolytes #3 follow-up with the patient
[2021-11-10 09:21] LABS: Calcium 8.6 mg/dL (8.4-10.2); Potassium 2.8 mmol/L (3.5-5.1)
[2021-11-10 09:35] LABS: Anisocytosis Moderate; Basophils % (A) 0 %; Eosinophils % (A) 0 %; HCT 30.4 % (34.0-46.0); Hypochromasia Marked; Lymphocytes # (A) 0.9 k/uL (1.0-4.8); Lymphocytes % (A) 5 %; MCH 24.3 pg (25.0-35.0); MCHC 29.6 g/dL (31.0-37.0); Mean Platelet Volume 8.8; Microcytosis Slight; Monocytes # (A) 1.1 k/uL (0-1.0); Monocytes % (A) 5 %; Neutrophils # (A) 18.9 k/uL (1.3-7.7); Neutrophils % (A) 90 %; Platelet Count 313 k/uL (150-450); Poikilocytosis Slight; RDW 20.6 % (11.5-15.5); WBC 21.1 k/uL (3.8-10.6)
[2021-11-10] MEDS: FOLIC ACID 1 MG TAB PO SCH (09:44)
[2021-11-10] MEDS: MAGNESIUM OXIDE 400 MG TAB PO SCH (09:44)
[2021-11-10] MEDS: DOCUSATE 100 MG CAP PO SCH ×2 (09:44→20:18)
[2021-11-10] MEDS: CHOLECALCIFEROL 25 MCG (1000 IU) TABLET PO SCH (09:44)
[2021-11-10] MEDS: CALCIUM CARB-VIT D 500 MG-5 MCG TAB PO SCH (09:44)
[2021-11-10] MEDS: DILTIAZEM CD 180 MG CAP.ER.24H PO SCH (09:44)
[2021-11-10] MEDS: METOPROLOL TARTRATE 25 MG TAB PO SCH ×3 (09:44→20:18)
[2021-11-10] MEDS: APIXABAN 5 MG TAB PO SCH ×2 (09:44→20:18)
[2021-11-10] MEDS: predniSONE 10 MG TAB PO SCH (09:44)
[2021-11-10] MEDS: VITAMIN E (DL,TOCOPHERYL ACET) 400 UNIT (180 MG) CAP PO SCH (09:44)
[2021-11-10] MEDS: FLECAINIDE 50 MG TAB PO SCH ×2 (09:45→20:18)
[2021-11-10] MEDS: FUROSEMIDE 10 MG/ML 2 ML VIAL IV SCH ×2 (09:45→20:18)
[2021-11-10] MEDS ORDERED: Potassium Replacement Protocol 1 EACH MISC MISCELLANE PRN (10:45)
--- NOTE | 2021-11-10 11:34 | P.PN ---
Subjective Progress Note Date: 11/10/21 Principal diagnosis: Fluid overload. Pulmonary/critical care consult dated 11/09/2021. 71-year-old female who was recently discharged from this hospital, on November 07. She was in the hospital, on her last visit, because of atrial fibrillation with rapid ventricular response. She underwent cardioversion, and reverted back to normal sinus rhythm. She was discharged on November 07, and apparently was reevaluated on November 08 in the emergency room. The reason for coming back into the hospital, was because of profound weakness. The patient states that when she got home, she could barely pull herself out of bed. She feels like she probably needs either a usp or rehabilitation. She denies shortness of breath, more so than when she was here last. She does have a history of underlying COPD/asthma. Other medical problems include atrial fibrillation, heart failure, gastroesophageal reflux disease, diverticular perforation with colostomy and reversal, bowel obstruction, osteoporosis, kidney stones, and compression fracture. Laboratory data includes a white count 13.7, hemoglobin 9.5, hematocrit 33.8, and a platelet count of 371,000. A blood gas shows a pO2 of 88, pCO2 73, and a pH is 7.46. Sodium 138, potassium 3.4, chlorides 85, CO2 50, BUN 31, and creatinine 0.85. N-terminal proBNP was 801. Troponin was less than 0.012. Chest x-ray was consistent with mild fluid overload. Progress note dated 11/10/2021. 71-year-old female was recently discharged from this hospital, with atrial fibrillation and rapid ventricular response, having been cardioverted. She was readmitted because of weakness, and some mild fluid overload. Currently, she is on 4 L. She's not receiving any IV fluids. White count 21.1, hemoglobin 9, hematocrit 30.4, and platelet count 313,000. Sodium 135, potassium 2.8, chlorides 81, CO2 56, BUN 45, and creatinine 1.04. Objective - Vital Signs Vital signs: Vital Signs Temp 98.2 F 11/10/21 04:00 Pulse 52 L 11/10/21 11:25 Resp 19 11/10/21 04:00 BP 122/70 11/10/21 04:00 Pulse Ox 95 11/10/21 04:00 FiO2 36 08/05/22 03:23 Intake & Output 11/09/21 11/10/21 11/10/21 18:59 06:59 18:59 Intake Total 118 Output Total 200 Balance -200 118 Weight 79.6 kg 79 kg Intake: Oral 118 Output: Urine 200 Other: Voiding Method Bedside Commode # Voids 2 1 - Exam No acute distress, oriented 3. No respiratory distress, conversational dyspnea, or use of accessory muscles. HEENT examination is grossly unremarkable. Neck supple. Full range of motion. No adenopathy thyromegaly or neck vein distention. Cardiovascular examination reveals regular rhythm rate. S1-S2 normal. No S3 or S4. No discernible murmur noted. Heart rate 52 bpm. Lungs reveal mostly clear breath sounds. Minimal basilar crackles. No wheezes. Minimal rhonchi. 4 L saturations 97 %. Abdomen soft bowel sounds are heard. No masses or tenderness. Extremities are intact. No cyanosis clubbing or edema. Skin is without rash or lesion. Neurologic examination is brief but nonfocal. - Labs CBC & Chem 7: 11/10/21 08:59 11/10/21 08:59 Labs: Abnormal Lab Results - Last 24 Hours (Table) 11/09/21 11/09/21 11/09/21 Range/Units 11:41 11:41 12:06 WBC 15.3 H (3.8-10.6) k/uL RBC (3.80-5.40) m/uL Hgb 9.2 L (11.4-16.0) gm/dL Hct 32.9 L (34.0-46.0) % MCH 22.8 L (25.0-35.0) pg MCHC 28.1 L (31.0-37.0) g/dL RDW 19.5 H (11.5-15.5) % Neutrophils # 14.4 H (1.3-7.7) k/uL Lymphocytes # 0.2 L (1.0-4.8) k/uL Monocytes # (0-1.0) k/uL Sodium (137-145) mmol/L Potassium 3.2 L (3.5-5.1) mmol/L Chloride 81 L (98-107) mmol/L Carbon Dioxide 50 H* (22-30) mmol/L BUN 35 H (7-17) mg/dL Creatinine 1.09 H (0.52-1.04) mg/dL Glucose 142 H (74-99) mg/dL POC Glucose (mg/dL) 167 H (70-110) mg/dL 11/09/21 11/09/21 11/10/21 Range/Units 16:53 20:34 06:21 WBC (3.8-10.6) k/uL RBC (3.80-5.40) m/uL Hgb (11.4-16.0) gm/dL Hct (34.0-46.0) % MCH (25.0-35.0) pg MCHC (31.0-37.0) g/dL RDW (11.5-15.5) % Neutrophils # (1.3-7.7) k/uL Lymphocytes # (1.0-4.8) k/uL Monocytes # (0-1.0) k/uL Sodium (137-145) mmol/L Potassium (3.5-5.1) mmol/L Chloride (98-107) mmol/L Carbon Dioxide (22-30) mmol/L BUN (7-17) mg/dL Creatinine (0.52-1.04) mg/dL Glucose (74-99) mg/dL POC Glucose (mg/dL) 146 H 218 H 116 H (70-110) mg/dL 11/10/21 11/10/21 Range/Units 08:59 08:59 WBC 21.1 H (3.8-10.6) k/uL RBC 3.70 L (3.80-5.40) m/uL Hgb 9.0 L (11.4-16.0) gm/dL Hct 30.4 L (34.0-46.0) % MCH 24.3 L (25.0-35.0) pg MCHC 29.6 L (31.0-37.0) g/dL RDW 20.6 H (11.5-15.5) % Neutrophils # 18.9 H (1.3-7.7) k/uL Lymphocytes # 0.9 L (1.0-4.8) k/uL Monocytes # 1.1 H (0-1.0) k/uL Sodium 135 L (137-145) mmol/L Potassium 2.8 L (3.5-5.1) mmol/L Chloride 81 L (98-107) mmol/L Carbon Dioxide 56 H* (22-30) mmol/L BUN 45 H (7-17) mg/dL Creatinine (0.52-1.04) mg/dL Glucose (74-99) mg/dL POC Glucose (mg/dL) (70-110) mg/dL Assessment and Plan Assessment: Profound weakness, following recent admission for atrial fibrillation/RVR, requiring cardioversion. Chronic and slightly worsening shortness of breath, secondary to mild fluid overload. Acute on chronic hypoxemic respiratory failure. Acute diastolic CHF. Acute anemia, with suspected chronic GI blood losses. History of severe persistent asthma. Prior history of diverticular perforation, status post colostomy and subsequent reversal. T7, T12 and L2 compression fractures. Chronic low back pain. History of kidney stones. History of osteoporosis. History of splenectomy. Plan: Plan dated 11/09/2021. The patient appears to be relatively stable at this time. She's on 4 L. The patient is being evaluated for possible placement, and rehab. She states that she cannot manage herself at home at this time. Her asthma seems to be well controlled. Chest x-ray suggest some mild fluid overload. She was discharged h ome on Lasix. We will continue to follow her and make recommendations along the way. Prognosis is guarded. Plan dated 11/10/2021. Currently, the patient is stable. She is on 4 L. Labs, x-rays, and medications are reviewed. Saturations are excellent. She's being evaluated for possible placement in a rehab facility or usp. She comes in with profound weakness. On her last admission, she was cardioverted, out of atrial fibrillation into normal sinus rhythm. She remains in normal sinus rhythm. Prognosis is guarded. We will continue to follow this patient and make recommendations along the way. Time with Patient: Less than 30
[2021-11-10 11:52] LABS: Glucose,Whole Blood 121 mg/dL (70-110)
[2021-11-10] MEDS: guaiFENesin-DM 100-10MG/5ML 10 ML CUP PO SCH ×4 (12:01→23:48)
[2021-11-10] MEDS: POTASSIUM CHLORIDE ER 20 MEQ TAB.ER PO SCH ×3 (12:18→17:21)
[2021-11-10 16:45] LABS: Glucose,Whole Blood 159 mg/dL (70-110)
--- NOTE | 2021-11-10 16:51 | P.PN ---
Subjective Progress Note Date: 11/10/21 Principal diagnosis: Acute on chronic hypoxic respiratory failure Acute exacerbation diastolic CHF Acute anemia likely chronic GI blood loss Acute exacerbation COPD/asthma 71-year-old female who was recently discharged from this hospital, on November 07. She was in the hospital, on her last visit, because of atrial fibrillation with rapid ventricular response. She underwent cardioversion, and reverted back to normal sinus rhythm. She was discharged on November 07, and apparently was reevaluated on November 08 in the emergency room. The reason for coming back into the hospital, was because of profound weakness. The patient states that when she got home, she could barely pull herself out of bed. She feels like she probably needs either a longterm or rehabilitation. She denies shortness of breath, more so than when she was here last. She does have a history of underlying COPD/asthma. Other medical problems include atrial fibrillation, heart failure, gastroesophageal reflux disease, diverticular perforation with colostomy and reversal, bowel obstruction, osteoporosis, kidney stones, and compression fracture. Laboratory data includes a white count 13.7, hemoglobin 9.5, hematocrit 33.8, and a platelet count of 371,000. A blood gas shows a pO2 of 88, pCO2 73, and a pH is 7.46. Sodium 138, potassium 3.4, chlorides 85, CO2 50, BUN 31, and creatinine 0.85. N-terminal proBNP was 801. Troponin was less than 0.012. Chest x-ray was consistent with mild fluid overload. 11/10/2021 Patient is seen and evaluated resting comfortably in bed; denies any specific complaints Currently, she is on 4 L. She's not receiving any IV fluids. White count 21.1, hemoglobin 9, hematocrit 30.4, and platelet count 313,000. Sodium 135, potassium 2.8, chlorides 81, CO2 56, BUN 45, and creatinine 1.04. Labs, x-rays, and medications are reviewed. Saturations are excellent. She's being evaluated for possible placement in a rehab facility or longterm. She comes in with profound weakness. On her last admission, she was cardioverted, out of atrial fibrillation into normal sinus rhythm. She remains in normal sinus rhythm. Prognosis is guarded. Objective - Vital Signs Vital signs: Vital Signs Temp 98.2 F 11/10/21 04:00 Pulse 52 L 11/10/21 11:25 Resp 19 11/10/21 04:00 BP 122/70 11/10/21 04:00 Pulse Ox 95 11/10/21 04:00 FiO2 36 11/09/21 03:23 Intake & Output 11/09/21 11/10/21 11/10/21 18:59 06:59 18:59 Intake Total 118 Output Total 200 Balance -200 118 Weight 79.6 kg 79 kg Intake: Oral 118 Output: Urine 200 Other: Voiding Method Bedside Commode # Voids 2 1 - Exam PHYSICAL EXAMINATION: GENERAL: The patient is alert and oriented x3, not in any acute distress. Well developed, well nourished. HEENT: Pupils are round and equally reacting to light. EOMI. No scleral icterus. No conjunctival pallor. Normocephalic, atraumatic. No pharyngeal erythema. No thyromegaly. CARDIOVASCULAR: S1 and S2 present. No murmurs, rubs, or gallops. PULMONARY: Chest is clear to auscultation, no wheezing or crackles. ABDOMEN: Soft, nontender, nondistended, normoactive bowel sounds. No palpable organomegaly. MUSCULOSKELETAL: No joint swelling or deformity. EXTREMITIES: No cyanosis, clubbing, or pedal edema. NEUROLOGICAL: Gross neurological examination did not reveal any focal deficits. SKIN: No rashes. - Labs CBC & Chem 7: 11/10/21 08:59 11/10/21 08:59 Labs: Abnormal Lab Results - Last 24 Hours (Table) 11/09/21 11/09/21 11/09/21 Range/Units 11:41 11:41 12:06 WBC 15.3 H (3.8-10.6) k/uL RBC (3.80-5.40) m/uL Hgb 9.2 L (11.4-16.0) gm/dL Hct 32.9 L (34.0-46.0) % MCH 22.8 L (25.0-35.0) pg MCHC 28.1 L (31.0-37.0) g/dL RDW 19.5 H (11.5-15.5) % Neutrophils # 14.4 H (1.3-7.7) k/uL Lymphocytes # 0.2 L (1.0-4.8) k/uL Monocytes # (0-1.0) k/uL Sodium (137-145) mmol/L Potassium 3.2 L (3.5-5.1) mmol/L Chloride 81 L (98-107) mmol/L Carbon Dioxide 50 H* (22-30) mmol/L BUN 35 H (7-17) mg/dL Creatinine 1.09 H (0.52-1.04) mg/dL Glucose 142 H (74-99) mg/dL POC Glucose (mg/dL) 167 H (70-110) mg/dL 11/09/21 11/09/21 11/10/21 Range/Units 16:53 20:34 06:21 WBC (3.8-10.6) k/uL RBC (3.80-5.40) m/uL Hgb (11.4-16.0) gm/dL Hct (34.0-46.0) % MCH (25.0-35.0) pg MCHC (31.0-37.0) g/dL RDW (11.5-15.5) % Neutrophils # (1.3-7.7) k/uL Lymphocytes # (1.0-4.8) k/uL Monocytes # (0-1.0) k/uL Sodium (137-145) mmol/L Potassium (3.5-5.1) mmol/L Chloride (98-107) mmol/L Carbon Dioxide (22-30) mmol/L BUN (7-17) mg/dL Creatinine (0.52-1.04) mg/dL Glucose (74-99) mg/dL POC Glucose (mg/dL) 146 H 218 H 116 H (70-110) mg/dL 11/10/21 11/10/21 Range/Units 08:59 08:59 WBC 21.1 H (3.8-10.6) k/uL RBC 3.70 L (3.80-5.40) m/uL Hgb 9.0 L (11.4-16.0) gm/dL Hct 30.4 L (34.0-46.0) % MCH 24.3 L (25.0-35.0) pg MCHC 29.6 L (31.0-37.0) g/dL RDW 20.6 H (11.5-15.5) % Neutrophils # 18.9 H (1.3-7.7) k/uL Lymphocytes # 0.9 L (1.0-4.8) k/uL Monocytes # 1.1 H (0-1.0) k/uL Sodium 135 L (137-145) mmol/L Potassium 2.8 L (3.5-5.1) mmol/L Chloride 81 L (98-107) mmol/L Carbon Dioxide 56 H* (22-30) mmol/L BUN 45 H (7-17) mg/dL Creatinine (0.52-1.04) mg/dL Glucose (74-99) mg/dL POC Glucose (mg/dL) (70-110) mg/dL Assessment and Plan Assessment: 1. Acute on chronic hypoxic respiratory failure 2. Acute exacerbation diastolic CHF 3. Acute anemia likely related to chronic GI blood loss 4. Acute exacerbation COPD/asthma 5. Chronic back pain related to compression fractures T7, T12 and L2 6. History of osteoporosis Patient is currently on O2 at 4 L per nasal cannula; remains on Lasix 40 mg every 12 hours; we will continue to monitor strict CHAY's, daily weights, renal function and electrolytes; low-salt and fluid restricted diet; cardiology recommending to continue Eliquis, Cardizem, flecainide, metoprolol tartrate -- has been switched to oral prednisone with plans for a quick taper - PT/OT on board for evaluation for possible placement to rehab
[2021-11-10] MEDS: CALCITONIN 200 USP/1 NASAL SPRAY 3.7ML BTL NASAL SCH (18:51)
[2021-11-10] MEDS: FLUTICASONE 50MCG/SPRAY NASAL 16GM EA NOSTRIL SCH (18:51)
[2021-11-10 20:06] LABS: Glucose,Whole Blood 246 mg/dL (70-110)
[2021-11-10] MEDS: MONTELUKAST 10 MG TAB PO SCH (20:18)
[2021-11-10] MEDS: ACETAMINOPHEN TAB 325 MG TAB PO PRN (23:44)
[2021-11-11] MEDS: IPRATROPIUM-ALBUTEROL 3 ML NEB INHALATION PRN ×2 (03:21→23:38)
[2021-11-11 06:05] LABS: Glucose,Whole Blood 100 mg/dL (70-110)
--- NOTE | 2021-11-11 06:20 | P.PN ---
Subjective Progress Note Date: 11/11/21 Principal diagnosis: Paroxysmal atrial fibrillation The patient is a pleasant 71-year-old female patient with a past medical history significant for paroxysmal atrial fibrillation as well as history of heart failure with preserved ejection fraction and also history of asthma/COPD presented to the hospital with generalized weakness and increasing shortness of breath. She was diagnosed with heart failure exacerbation as well as COPD exacerbation. The patient was seen this morning beach she stated that she is feeling somewhat better. The shortness of breath has improved. She continues to have very mild bilateral lower extremities edema. Also on examination she continues to have diminished breathing sounds bilaterally with bilateral rhonchi. Her urine output has been marginal. I'm going to increase the dose of Lasix IV from 20 mg twice a day to 40 mg twice a day, continue monitor the kidney function and electrolytes, and continue monitor the patient for additional 24-hour Objective - Vital Signs Vital signs: Vital Signs Temp 98.2 F 11/11/21 04:00 Pulse 62 11/11/21 04:00 Resp 18 11/11/21 04:00 BP 111/65 11/11/21 04:00 Pulse Ox 95 11/11/21 04:00 FiO2 36 11/10/21 19:33 Intake & Output 11/10/21 11/10/21 11/11/21 06:59 18:59 06:59 Intake Total 340 Output Total 200 500 350 Balance -200 -160 -350 Weight 79 kg 78.2 kg Intake: Oral 340 Output: Urine 200 500 350 Other: Voiding Method Bedside Commode Bedside Commode Bedside Commode # Voids 1 - Constitutional General appearance: Present: no acute distress - Respiratory Respiratory: bilateral: diminished, rhonchi - Cardiovascular Rhythm: regular Heart sounds: normal: S1, S2 - Labs CBC & Chem 7: 11/10/21 08:59 11/10/21 08:59 Labs: Abnormal Lab Results - Last 24 Hours (Table) 11/10/21 11/10/21 11/10/21 Range/Units 06:21 08:59 08:59 WBC 21.1 H (3.8-10.6) k/uL RBC 3.70 L (3.80-5.40) m/uL Hgb 9.0 L (11.4-16.0) gm/dL Hct 30.4 L (34.0-46.0) % MCH 24.3 L (25.0-35.0) pg MCHC 29.6 L (31.0-37.0) g/dL RDW 20.6 H (11.5-15.5) % Neutrophils # 18.9 H (1.3-7.7) k/uL Lymphocytes # 0.9 L (1.0-4.8) k/uL Monocytes # 1.1 H (0-1.0) k/uL Sodium 135 L (137-145) mmol/L Potassium 2.8 L (3.5-5.1) mmol/L Chloride 81 L (98-107) mmol/L Carbon Dioxide 56 H* (22-30) mmol/L BUN 45 H (7-17) mg/dL POC Glucose (mg/dL) 116 H (70-110) mg/dL 11/10/21 11/10/21 11/10/21 Range/Units 11:39 16:38 20:04 WBC (3.8-10.6) k/uL RBC (3.80-5.40) m/uL Hgb (11.4-16.0) gm/dL Hct (34.0-46.0) % MCH (25.0-35.0) pg MCHC (31.0-37.0) g/dL RDW (11.5-15.5) % Neutrophils # (1.3-7.7) k/uL Lymphocytes # (1.0-4.8) k/uL Monocytes # (0-1.0) k/uL Sodium (137-145) mmol/L Potassium (3.5-5.1) mmol/L Chloride (98-107) mmol/L Carbon Dioxide (22-30) mmol/L BUN (7-17) mg/dL POC Glucose (mg/dL) 121 H 159 H 246 H (70-110) mg/dL Assessment and Plan Assessment: Assessment #1 paroxysmal atrial fibrillation #2 heart failure with preserved ejection fraction exacerbation #3 COPD exacerbation Plan #1 increase the dose of Lasix. #2 continue monitor the kidney function and electrolytes #3 follow-up with the patient
[2021-11-11] MEDS: INSULIN ASPART (NovoLOG) 100 UNIT/ML VIAL SQ SCH ×4 (06:21→21:02)
[2021-11-11] MEDS: PANTOPRAZOLE 40 MG TABLET PO SCH (06:22)
[2021-11-11] MEDS: FERROUS SULFATE 325 MG TAB PO SCH ×3 (06:22→19:02)
[2021-11-11] MEDS: guaiFENesin-DM 100-10MG/5ML 10 ML CUP PO SCH ×3 (06:22→19:02)
--- NOTE | 2021-11-11 08:08 | CT ---
EXAMINATION TYPE: CT brain wo con CT DLP: 1135.4 mGycm, Automated exposure control for dose reduction was used. DATE OF EXAM: 11/11/2021 7:36 AM COMPARISON: None. CLINICAL INDICATION:Female, 71 years old with history of altered mental status, Dizziness, altered me ntal status TECHNIQUE: Brain: Axial CT images of the brain were obtained with coronal and sagittal reformats created and rev iewed. Contrast used: None. Oral contrast used: None. FINDINGS: Brain: Extra-axial spaces: No abnormal extra-axial fluid collections. Ventricular system: Dilatation in proportion to cerebral atrophy. Cerebral parenchyma: Cerebral atrophy. No acute intraparenchymal hemorrhage or mass effect. The moctezuma -white junction is well differentiated. Scattered hypoattenuating areas are seen within the white mat ter. Cerebellum: Unremarkable. Mass effect: No evidence of midline shift. Intracranial vasculature: Atherosclerotic calcifications of the intracranial vessels. Soft tissues: Normal. Calvarium/osseous structures: No depressed skull fracture. Paranasal sinuses and mastoid air cells: Mild scattered paranasal sinus disease. Visualized orbits: Orbital contents are intact. IMPRESSION: 1. No acute intracranial process. 2. Nonspecific white matter changes, likely secondary to chronic small vessel ischemic disease.
[2021-11-11] MEDS: IPRATROPIUM-ALBUTEROL 3 ML NEB INHALATION SCH ×4 (08:20→20:56)
[2021-11-11] MEDS: SYMBICORT 160-4.5 MCG INHALER INHALATION SCH ×2 (08:20→20:56)
[2021-11-11 08:59] LABS: Anisocytosis Moderate; Basophils % (A) 0 %; Eosinophils # (A) 0.1 k/uL (0-0.7); Eosinophils % (A) 0 %; HCT 32.4 % (34.0-46.0); HGB 9.3 gm/dL (11.4-16.0); Hypochromasia Marked; Lymphocytes # (A) 1.5 k/uL (1.0-4.8); Lymphocytes % (A) 9 %; MCH 23.7 pg (25.0-35.0); MCHC 28.7 g/dL (31.0-37.0); MCV 82.7 fL (80.0-100.0); Mean Platelet Volume 8.5; Microcytosis Slight; Monocytes # (A) 1.2 k/uL (0-1.0); Monocytes % (A) 7 %; Neutrophils # (A) 14.1 k/uL (1.3-7.7); Neutrophils % (A) 83 %; Platelet Count 298 k/uL (150-450); Poikilocytosis Slight; RBC 3.92 m/uL (3.80-5.40); RDW 20.7 % (11.5-15.5); WBC 17.1 k/uL (3.8-10.6)
[2021-11-11 09:10] LABS: Calcium 8.8 mg/dL (8.4-10.2); Potassium 3.4 mmol/L (3.5-5.1)
[2021-11-11] MEDS: DILTIAZEM CD 180 MG CAP.ER.24H PO SCH (09:53)
[2021-11-11] MEDS: VITAMIN E (DL,TOCOPHERYL ACET) 400 UNIT (180 MG) CAP PO SCH (09:53)
[2021-11-11] MEDS: FOLIC ACID 1 MG TAB PO SCH ×2 (09:53→12:05)
[2021-11-11] MEDS: METOPROLOL TARTRATE 25 MG TAB PO SCH ×2 (09:53→19:01)
[2021-11-11] MEDS: CHOLECALCIFEROL 25 MCG (1000 IU) TABLET PO SCH ×2 (09:53→12:05)
[2021-11-11] MEDS: DOCUSATE 100 MG CAP PO SCH (09:53)
[2021-11-11] MEDS: FLECAINIDE 50 MG TAB PO SCH ×2 (09:53→12:05)
[2021-11-11] MEDS: MAGNESIUM OXIDE 400 MG TAB PO SCH ×2 (09:53→12:05)
[2021-11-11] MEDS: predniSONE 10 MG TAB PO SCH (09:54)
[2021-11-11] MEDS: APIXABAN 5 MG TAB PO SCH ×2 (09:54→12:04)
[2021-11-11] MEDS: CALCIUM CARB-VIT D 500 MG-5 MCG TAB PO SCH ×2 (09:54→12:05)
[2021-11-11] MEDS: FUROSEMIDE 10 MG/ML 4 ML VIAL IV SCH ×2 (09:54→21:13)
[2021-11-11 10:06] LABS: Vitamin B12 >2000.0 pg/mL (200.0-944.0)
--- NOTE | 2021-11-11 10:13 | P.PN ---
Subjective Progress Note Date: 11/11/21 Principal diagnosis: Fluid overload. Pulmonary/critical care consult dated 11/09/2021. 71-year-old female who was recently discharged from this hospital, on November 07. She was in the hospital, on her last visit, because of atrial fibrillation with rapid ventricular response. She underwent cardioversion, and reverted back to normal sinus rhythm. She was discharged on November 07, and apparently was reevaluated on November 08 in the emergency room. The reason for coming back into the hospital, was because of profound weakness. The patient states that when she got home, she could barely pull herself out of bed. She feels like she probably needs either a halfway or rehabilitation. She denies shortness of breath, more so than when she was here last. She does have a history of underlying COPD/asthma. Other medical problems include atrial fibrillation, heart failure, gastroesophageal reflux disease, diverticular perforation with colostomy and reversal, bowel obstruction, osteoporosis, kidney stones, and compression fracture. Laboratory data includes a white count 13.7, hemoglobin 9.5, hematocrit 33.8, and a platelet count of 371,000. A blood gas shows a pO2 of 88, pCO2 73, and a pH is 7.46. Sodium 138, potassium 3.4, chlorides 85, CO2 50, BUN 31, and creatinine 0.85. N-terminal proBNP was 801. Troponin was less than 0.012. Chest x-ray was consistent with mild fluid overload. Progress note dated 11/10/2021. 71-year-old female was recently discharged from this hospital, with atrial fibrillation and rapid ventricular response, having been cardioverted. She was readmitted because of weakness, and some mild fluid overload. Currently, she is on 4 L. She's not receiving any IV fluids. White count 21.1, hemoglobin 9, hematocrit 30.4, and platelet count 313,000. Sodium 135, potassium 2.8, chlorides 81, CO2 56, BUN 45, and creatinine 1.04. Progress note dated 11/11/2021. 71-year-old female seen today in room 367. The patient was sleeping, and was very stable, and seemed to be not in any distress. Currently, she is on 4 L nasal cannula. She's not receiving any IV fluids. She is currently being evaluated by the primary service for possible rehabilitation. She came into the hospital for profound weakness. Today's labs include a white count of 17.1, hemoglobin 9.3, hematocrit 32.4, and a platelet count of 298,000. Sodium 136, potassium 3.4, chlorides 84, CO2 52, BUN 51, and creatinine 1.05. Brain CAT scan was negative for anything acute. Objective - Vital Signs Vital signs: Vital Signs Temp 98.2 F 11/11/21 04:00 Pulse 56 L 11/11/21 08:33 Resp 18 11/11/21 04:00 BP 111/65 11/11/21 04:00 Pulse Ox 95 11/11/21 04:00 FiO2 36 11/10/21 19:33 Intake & Output 11/10/21 11/11/21 11/11/21 18:59 06:59 18:59 Intake Total 340 Output Total 500 350 Balance -160 -350 Weight 78.2 kg Intake: Oral 340 Output: Urine 500 350 Other: Voiding Method Bedside Commode Bedside Commode - Exam No acute distress, oriented 3. No respiratory distress, conversational dyspnea, or use of accessory muscles. HEENT examination is grossly unremarkable. Neck supple. Full range of motion. No adenopathy thyromegaly or neck vein distention. Cardiovascular examination reveals regular rhythm rate. S1-S2 normal. No S3 or S4. No discernible murmur noted. Heart rate 56 bpm. Lungs reveal mostly clear breath sounds. Minimal basilar crackles. No wheezes. Minimal rhonchi. 4 L saturations 95 %. Abdomen soft bowel sounds are heard. No masses or tenderness. Extremities are intact. No cyanosis clubbing or edema. Skin is without rash or lesion. Neurologic examination is brief but nonfocal. - Labs CBC & Chem 7: 11/11/21 08:48 11/11/21 08:48 Labs: Abnormal Lab Results - Last 24 Hours (Table) 11/10/21 11/10/21 11/10/21 Range/Units 11:39 14:37 16:38 WBC (3.8-10.6) k/uL Hgb (11.4-16.0) gm/dL Hct (34.0-46.0) % MCH (25.0-35.0) pg MCHC (31.0-37.0) g/dL RDW (11.5-15.5) % Neutrophils # (1.3-7.7) k/uL Monocytes # (0-1.0) k/uL Sodium (137-145) mmol/L Potassium (3.5-5.1) mmol/L Chloride (98-107) mmol/L Carbon Dioxide (22-30) mmol/L BUN (7-17) mg/dL Creatinine (0.52-1.04) mg/dL POC Glucose (mg/dL) 121 H 159 H (70-110) mg/dL Vitamin B12 >2000.0 H (200.0-944.0) pg/mL 11/10/21 11/11/21 11/11/21 Range/Units 20:04 08:48 08:48 WBC 17.1 H (3.8-10.6) k/uL Hgb 9.3 L (11.4-16.0) gm/dL Hct 32.4 L (34.0-46.0) % MCH 23.7 L (25.0-35.0) pg MCHC 28.7 L (31.0-37.0) g/dL RDW 20.7 H (11.5-15.5) % Neutrophils # 14.1 H (1.3-7.7) k/uL Monocytes # 1.2 H (0-1.0) k/uL Sodium 136 L (137-145) mmol/L Potassium 3.4 L (3.5-5.1) mmol/L Chloride 84 L (98-107) mmol/L Carbon Dioxide 52 H* (22-30) mmol/L BUN 51 H (7-17) mg/dL Creatinine 1.05 H (0.52-1.04) mg/dL POC Glucose (mg/dL) 246 H (70-110) mg/dL Vitamin B12 (200.0-944.0) pg/mL Assessment and Plan Assessment: Profound weakness, following recent admission for atrial fibrillation/RVR, requiring cardioversion. Chronic and slightly worsening shortness of breath, secondary to mild fluid overload. Acute on chronic hypoxemic respiratory failure. Acute diastolic CHF. Acute anemia, with suspected chronic GI blood losses. History of severe persistent asthma. Prior history of diverticular perforation, status post colostomy and subsequent reversal. T7, T12 and L2 compression fractures. Chronic low back pain. History of kidney stones. History of osteoporosis. History of splenectomy. Plan: Plan dated 11/09/2021. The patient appears to be relatively stable at this time. She's on 4 L. The patient is being evaluated for possible placement, and rehab. She states that she cannot manage herself at home at this time. Her asthma seems to be well controlled. Chest x-ray suggest some mild fluid overload. She was discharged home on Lasix. We will continue to follow her and make recommendations along the way. Prognosis is guarded. Plan dated 11/10/2021. Currently, the patient is stable. She is on 4 L. Labs, x-rays, and medications are reviewed. Saturations are excellent. She's being evaluated for possible placement in a rehab facility or halfway. She comes in with profound weakness. On her last admission, she was cardioverted, out of atrial fibrillation into normal sinus rhythm. She remains in normal sinus rhythm. Prognosis is guarded. We will continue to follow this patient and make recommendations along the way. Plan dated 11/11/2021. The patient appears to be relatively stable. She remains on 4 L. Saturations are 95-96. Labs are reviewed today. Medications x-rays are reviewed. Patient's overall prognosis remains guarded. She is currently being evaluated for possible placement in a rehab. She remains in normal sinus rhythm. We will continue to follow make recommendations along the way. Time with Patient: Less than 30
--- NOTE | 2021-11-11 10:29 | P.CNNES ---
History of Present Illness Consult date: 11/11/21 Requesting physician: Sampson Neal Reason for Consult: tremors, questionable unresponsive History of Present Illness: This is a 71-year-old woman with history of atrial fibrillation post cardioversion, compression fracture T7 and T12 and L2 spine, chronic lower back pain presented emergency Department with concerns shortness of breath and fatigue. Neurology is consulted for tremors and questionable unresponsiveness. Some of the history is obtained from patient's nurse. Per the patient nurse she stated yesterday while she was working with physical therapy at in the late morning patient has some tremor but she was responding during the episode. I could not get a description of the tremor and unsure of the duration of the tremor. And 2 days ago at nighttime patient's had questionable unresponsiveness and was staring off was very brief. It does not seem that the patient has any history of seizures in the past. Cardiology and pulmonary team are on board and it seems the patient has acute diastolic congestive heart failure, patient has acute on chronic hypoxemic respite care for her during this hospital and seems the patient has chronic slightly worsening shortness of breath secondary due to mild fluid overload with acute anemia suspected chronic GI blood loss. Her Lasix dose has been increased by cardiology team. Patient is on steroids and this hospital admitted and is seems for her asthma/COPD. today the patient states that she's doing fairly well and denies any further episodes of tremors and then nurse agrees that overnight today she did not have any further episodes of unresponsiveness or tremors. Patient denies of any focal weakness. Some other workup during this hospital visit consisted of White blood cells trending up initially 13.7 and the currently at 21.19. Initial carbon dioxide is 50 chloride is 85 AST of 29 ALT of 76, Ammonia is less than 9 TSH is 0.593 HA1c 6.1 Slater virus PCR, influenza a and B PCR was not detected CT of the head is reported as no acute intracranial process. Nonspecific white matter changes, likely secondary to chronic small vessel ischemic disease. Review of Systems Review of system: The 12 point system was reviewed and apparent positive and negative per HPI. Past Medical History Past Medical History: Atrial Fibrillation, Asthma, Cancer, Heart Failure, COPD, GERD/Reflux, Renal Disease, Respiratory Disorder Additional Past Medical History / Comment(s): Past diverticular perforation with surgery/colostomy with eventual reversal, bowel obstruction, home oxygen at HS 2L/NC, compression fractures T7 and T12 and L2 spine, chronic low back pain, osteoporosis, UTIs, sepsis, kidney stone, anemia, skin cancer with removal. History of Any Multi-Drug Resistant Organisms: None Reported Past Surgical History: Appendectomy, Bowel Resection, Cholecystectomy Additional Past Surgical History / Comment(s): Colonoscopies, bowel resection d/t perforation with colostomy, attempted colostomy reversal then exploratory lap with extensive lysis of adhesions, reversal of colostomy/repair of peristomal and incisional hernia/take down splenic flexure and partial omenectomy/spleenectomy, L eye cataract removed and repair of macular hole, cystoscopy-retrograde pyeloureterogram with stone removal, skin cancer removal. Past Anesthesia/Blood Transfusion Reactions: No Reported Reaction Past Psychological History: No Psychological Hx Reported Additional Psychological History / Comment(s): Pt resides alone. She has home O2 which she wears at HS and a nebulizer. She uses a cane to ambulate and owns a walker. She drives. Smoking Status: Never smoker Past Alcohol Use History: None Reported Past Drug Use History: None Reported - Past Family History Mother Family Medical History: Cancer Additional Family Medical History / Comment(s): COLON CANCER Father Family Medical History: Cancer Additional Family Medical History / Comment(s): stomach CA at age 95 Brother(s) Family Medical History: No Reported History Son(s) Family Medical History: No Reported History Medications and Allergies Home Medications Medication Instructions Recorded Confirmed Type Albuterol Nebulized [Ventolin 2.5 mg INHALATION RT-QID PRN 07/22/16 11/08/21 History Nebulized] Albuterol Sulfate [Proventil Hfa] 2 puff INHALATION RT-QID PRN 07/22/16 11/08/21 History Budesonide/Formoterol Fumarate 2 puff INHALATION RT-BID 07/22/16 11/08/21 History [Symbicort 160-4.5 Mcg Inhaler] Montelukast [Singulair] 10 mg PO HS 07/22/16 11/08/21 History Folic Acid 1 mg PO DAILY 01/19/18 11/08/21 History Apixaban [Eliquis] 5 mg PO BID 05/25/18 11/08/21 History dilTIAZem HCL [Cartia Xt] 180 mg PO DAILY 05/25/18 11/08/21 History Calcium/Vitamin D Chewable 1 tab PO DAILY 01/05/21 11/08/21 History D-Mannose 1,400 mg PO DAILY 01/05/21 11/08/21 History Fennel Tea 1 dose PO DAILY PRN 01/05/21 11/08/21 History Magnesium Oxide [Mag-Ox] 400 mg PO DAILY 01/05/21 11/08/21 History Calcitonin Nasal [Fortical 1 spr NASAL DAILY 10/28/21 11/08/21 History (Miacalcin)] Cholecalciferol [Vitamin D3 (25 25 mcg PO DAILY 10/28/21 11/08/21 History Mcg = 1000 Iu)] Fluticasone Nasal [place] [Flonase 2 spr EA NOSTRIL DAILY 10/28/21 11/08/21 History Nasal [place]] Umeclidinium [place] [Incruse 1 puff INHALATION RT-DAILY 10/28/21 11/08/21 History Ellipta] Vitamin E (Dl,Tocopheryl Acet) 400 unit PO DAILY 10/28/21 11/08/21 History [Vitamin E (400 Iu = 180 mg)] Docusate [Colace] 100 mg PO BID cap 11/07/21 11/08/21 Rx Ferrous Sulfate [Iron (65 MG 325 mg PO TID-W/MEALS #90 tab 11/07/21 11/08/21 Rx Elemental)] Flecainide [Tambocor] 150 mg PO BID #180 tab 11/07/21 11/08/21 Rx Furosemide [Lasix] 20 mg PO BID@0900,1600 30 Days #60 11/07/21 11/08/21 Rx tab Ipratropium-Albuterol Nebulize 3 ml INHALATION Q4H PRN each 11/07/21 11/08/21 Rx [Duoneb 0.5 mg-3 mg/3 ml Soln] Ipratropium-Albuterol Nebulize 3 ml INHALATION RT-Q4H #120 each 11/07/21 11/08/21 Rx [Duoneb 0.5 mg-3 mg/3 ml Soln] Metoprolol Tartrate [Lopressor] 25 mg PO TID #90 tab 11/07/21 11/08/21 Rx guaiFENesin-DM 100-10MG/5ML 10 ml PO Q6HR #240 ml 11/07/21 11/08/21 Rx [Robitussin DM] Acetaminophen Tab [Tylenol] 650 mg PO Q6H PRN 11/08/21 11/08/21 History predniSONE See Taper PO DIRECTED 11/08/21 11/08/21 History Allergies Allergy/AdvReac Type Severity Reaction Status Date / Time furosemide [From Lasix] Allergy Rash/Hives(patient Verified 11/08/21 14:21 has had since without reaction-10/28/21) cephalexin [From Keflex] AdvReac Diarrhea Verified 11/08/21 14:21 morphine AdvReac Hallucinati Verified 11/08/21 14:21 ons/Agitati on Physical Examination - Vital Signs Vital Signs: Vital Signs Temp Pulse Pulse Resp BP Pulse Ox FiO2 11/11/21 08:33 56 L 11/11/21 08:20 52 L 11/11/21 04:00 98.2 F 62 18 111/65 95 11/11/21 03:31 74 11/11/21 03:21 70 11/10/21 23:47 97.2 F L 52 L 18 89/57 94 L 11/10/21 23:26 72 11/10/21 23:13 71 11/10/21 20:00 98.2 F 55 L 18 93/52 94 L 11/10/21 19:45 60 11/10/21 19:33 56 L 95 36 11/10/21 16:00 98.0 F 58 L 18 103/57 93 L 11/10/21 15:13 52 L 11/10/21 15:00 48 L 11/10/21 14:00 58 L 18 11/10/21 12:00 58 L 18 86/51 91 L 11/10/21 11:25 52 L 11/10/21 11:15 56 L Intake and Output 11/10/21 11/11/21 11/11/21 22:59 06:59 14:59 Intake Total 222 Output Total 500 350 Balance -278 -350 Intake: Oral 222 Output: Urine 500 350 Other: Voiding Method Bedside Commode Bedside Commode Weight 78.2 kg GENERAL: The patient is lying in bed and is not in acute distress. CHEST: The heart rate is regular rate rhythm. No murmurs to auscultation. LUNG: Clear to auscultation bilaterally no wheezing noted throughout. Not labored breathing. ABDOMEN/GI: Bowel sounds present in all 4 quadrants. No tenderness to palpation throughout. INTEGUMENTARY: Echymoses of bilateral foream from prior bruise. NEUROLOGICAL: Higher mental function: The patient is awake, alert, oriented to self, place and time. Patient is following commands. No aphasia and no neglect. Cranial nerves: The pupils are round, equal and reactive to light and accommodation. Visual vela are full to confrontation throughout. Extraocular movement is intact no nystagmus is noted. Facial sensation is normal to touch throughout. The facial strength is normal throughout. Hearing is normal bilaterally to hand rub. Tongue is midline and moved [id number] without any difficulty. No dysarthria is noted. Shoulder shrug is normal bilaterally. Motor: The strength is 5 over 5 throughout. Normal tone and bulk. Cerebellum: Normal finger to nose bilaterally. Sensation: Sensation is normal to touch throughout. Reflexes (right/left): 1+ throughout. Plantars are mute bilaterally. Results - Laboratory Findings CBC and BMP: 11/11/21 08:48 11/11/21 08:48 Abnormal Lab Findings: Abnormal Labs 11/08/21 11/08/21 11/08/21 13:03 13:03 13:03 WBC 13.7 H RBC Hgb 9.5 L Hct 33.8 L MCH 23.3 L MCHC 28.3 L RDW 18.9 H Neutrophils # 12.8 H Lymphocytes # 0.4 L Monocytes # ABG pH ABG pCO2 ABG HCO3 ABG Total CO2 VBG pH VBG pCO2 VBG HCO3 Sodium Potassium 3.4 L Chloride 85 L Carbon Dioxide 50 H* BUN 31 H Creatinine Glucose 119 H POC Glucose (mg/dL) Hemoglobin A1c 6.1 H ALT 76 H Total Protein 6.1 L 11/08/21 11/08/21 11/08/21 14:07 14:33 18:11 WBC RBC Hgb Hct MCH MCHC RDW Neutrophils # Lymphocytes # Monocytes # ABG pH 7.46 H ABG pCO2 73 H* ABG HCO3 51 H* ABG Total CO2 54 H VBG pH 7.48 H VBG pCO2 69 H VBG HCO3 51 H Sodium Potassium Chloride Carbon Dioxide BUN Creatinine Glucose POC Glucose (mg/dL) 252 H Hemoglobin A1c ALT Total Protein 11/08/21 11/09/2111/09/22 22:41 05:53 11:41 WBC 15.3 H RBC Hgb 9.2 L Hct 32.9 L MCH 22.8 L MCHC 28.1 L RDW 19.5 H Neutrophils # 14.4 H Lymphocytes # 0.2 L Monocytes # ABG pH ABG pCO2 ABG HCO3 ABG Total CO2 VBG pH VBG pCO2 VBG HCO3 Sodium Potassium Chloride Carbon Dioxide BUN Creatinine Glucose POC Glucose (mg/dL) 213 H 153 H Hemoglobin A1c ALT Total Protein 11/09/21 11/09/21 11/09/21 11:41 12:06 16:53 WBC RBC Hgb Hct MCH MCHC RDW Neutrophils # Lymphocytes # Monocytes # ABG pH ABG pCO2 ABG HCO3 ABG Total CO2 VBG pH VBG pCO2 VBG HCO3 Sodium Potassium 3.2 L Chloride 81 L Carbon Dioxide 50 H* BUN 35 H Creatinine 1.09 H Glucose 142 H POC Glucose (mg/dL) 167 H 146 H Hemoglobin A1c ALT Total Protein 11/09/21 11/10/21 11/10/21 20:34 06:21 08:59 WBC 21.1 H RBC 3.70 L Hgb 9.0 L Hct 30.4 L MCH 24.3 L MCHC 29.6 L RDW 20.6 H Neutrophils # 18.9 H Lymphocytes # 0.9 L Monocytes # 1.1 H ABG pH ABG pCO2 ABG HCO3 ABG Total CO2 VBG pH VBG pCO2 VBG HCO3 Sodium Potassium Chloride Carbon Dioxide BUN Creatinine Glucose POC Glucose (mg/dL) 218 H 116 H Hemoglobin A1c ALT Total Protein 11/10/21 11/10/21 11/10/21 08:59 11:39 16:38 WBC RBC Hgb Hct MCH MCHC RDW Neutrophils # Lymphocytes # Monocytes # ABG pH ABG pCO2 ABG HCO3 ABG Total CO2 VBG pH VBG pCO2 VBG HCO3 Sodium 135 L Potassium 2.8 L Chloride 81 L Carbon Dioxide 56 H* BUN 45 H Creatinine Glucose POC Glucose (mg/dL) 121 H 159 H Hemoglobin A1c ALT Total Protein 11/10/21 20:04 WBC RBC Hgb Hct MCH MCHC RDW Neutrophils # Lymphocytes # Monocytes # ABG pH ABG pCO2 ABG HCO3 ABG Total CO2 VBG pH VBG pCO2 VBG HCO3 Sodium Potassium Chloride Carbon Dioxide BUN Creatinine Glucose POC Glucose (mg/dL) 246 H Hemoglobin A1c ALT Total Protein Assessment and Plan Assessment: Tremor and questionable unresponsiveness. Rule out seizure. Her episodes of tremor could be myoclonus from metabolic derangement/Hyercapnia. He questionable unresponsiveness: rule out cardiac in etiology with heart failure. Atrial fibrillation post cardioversion and is on eliquis Shortness of breath Acute on chronic respiratory failure ABG she has hypercapnia. Acute diastolic congestive heart failure T7, T12 and L2 compression fracture Chronic lower back pain History of osteoporosis Plan: I ordered a routine EEG which will be completed likely tomorrow. I'll not start the patient on antiepileptic drugs unless there is epileptiform discharges or seizure on the EEG or if any intracranial mass suggestive to cause these tremors. Ordered MRI Brain w/ and w/o. Ordered vitamin B12, folate, Continue neuro checks Cardiology team is on board Pulmonary team is on board PT and OT are on board We'll defer the rest of the medical management to the primary team The plan is discussed with patient and her nurse. Thank you for the consultation. Dr. Cartwright will start neurology service tomorrow fausto Gallardo M.D. Neuro-hospitalist Time with Patient: Greater than 30
[2021-11-11 11:28] LABS: Glucose,Whole Blood 121 mg/dL (70-110)
[2021-11-11] MEDS: POTASSIUM CHLORIDE ER 20 MEQ TAB.ER PO SCH (16:05)
[2021-11-11 16:41] LABS: Glucose,Whole Blood 129 mg/dL (70-110)
[2021-11-11] MEDS: POTASSIUM CHLORIDE 10 MEQ in WATER FOR INJECTION 1 100ML.BAG IVPB SCH ×4 (17:53→23:48)
[2021-11-11] MEDS: CALCITONIN 200 USP/1 NASAL SPRAY 3.7ML BTL NASAL SCH (19:01)
[2021-11-11] MEDS: FLUTICASONE 50MCG/SPRAY NASAL 16GM EA NOSTRIL SCH (19:01)
[2021-11-11 20:13] LABS: Glucose,Whole Blood 147 mg/dL (70-110)
[2021-11-12 02:33] LABS: Glucose,Whole Blood 142 mg/dL (70-110)
[2021-11-12] MEDS: APIXABAN 5 MG TAB PO SCH ×3 (03:21→21:24)
[2021-11-12] MEDS: DOCUSATE 100 MG CAP PO SCH ×3 (03:22→21:24)
[2021-11-12] MEDS: guaiFENesin-DM 100-10MG/5ML 10 ML CUP PO SCH ×4 (03:22→20:42)
[2021-11-12] MEDS: MONTELUKAST 10 MG TAB PO SCH ×2 (03:22→21:23)
[2021-11-12] MEDS: FLECAINIDE 50 MG TAB PO SCH ×3 (03:22→21:26)
[2021-11-12] MEDS: METOPROLOL TARTRATE 25 MG TAB PO SCH ×4 (03:22→21:24)
[2021-11-12] MEDS: IPRATROPIUM-ALBUTEROL 3 ML NEB INHALATION PRN ×2 (03:46→23:49)
[2021-11-12 06:15] LABS: Glucose,Whole Blood 107 mg/dL (70-110)
[2021-11-12] MEDS: FERROUS SULFATE 325 MG TAB PO SCH ×3 (06:21→20:41)
[2021-11-12] MEDS: INSULIN ASPART (NovoLOG) 100 UNIT/ML VIAL SQ SCH ×4 (06:21→21:24)
[2021-11-12] MEDS: PANTOPRAZOLE 40 MG TABLET PO SCH ×2 (06:22→15:06)
[2021-11-12] MEDS: SYMBICORT 160-4.5 MCG INHALER INHALATION SCH ×2 (07:14→19:30)
[2021-11-12] MEDS: IPRATROPIUM-ALBUTEROL 3 ML NEB INHALATION SCH ×4 (07:15→19:28)
[2021-11-12 07:41] LABS: Anisocytosis Moderate; Basophils % (A) 0 %; Eosinophils # (A) 0.1 k/uL (0-0.7); Eosinophils % (A) 1 %; HCT 37.1 % (34.0-46.0); HGB 10.7 gm/dL (11.4-16.0); Hypochromasia Marked; Lymphocytes % (A) 6 %; MCH 23.8 pg (25.0-35.0); MCHC 28.7 g/dL (31.0-37.0); MCV 83.1 fL (80.0-100.0); Mean Platelet Volume 8.3; Microcytosis Slight; Monocytes % (A) 6 %; Neutrophils # (A) 14.4 k/uL (1.3-7.7); Neutrophils % (A) 87 %; Platelet Count 291 k/uL (150-450); Poikilocytosis Slight; RBC 4.47 m/uL (3.80-5.40); RDW 21.5 % (11.5-15.5); WBC 16.6 k/uL (3.8-10.6)
[2021-11-12 07:48] LABS: Calcium 8.6 mg/dL (8.4-10.2); Potassium 3.4 mmol/L (3.5-5.1)
[2021-11-12] MEDS: DILTIAZEM CD 180 MG CAP.ER.24H PO SCH (09:12)
[2021-11-12] MEDS: FOLIC ACID 1 MG TAB PO SCH (09:12)
[2021-11-12] MEDS: CALCIUM CARB-VIT D 500 MG-5 MCG TAB PO SCH (09:12)
[2021-11-12] MEDS: FUROSEMIDE 10 MG/ML 4 ML VIAL IV SCH (09:12)
[2021-11-12] MEDS: FLUTICASONE 50MCG/SPRAY NASAL 16GM EA NOSTRIL SCH (09:17)
[2021-11-12] MEDS: CALCITONIN 200 USP/1 NASAL SPRAY 3.7ML BTL NASAL SCH (09:28)
--- NOTE | 2021-11-12 10:18 | P.PN ---
Subjective Progress Note Date: 11/11/21 Principal diagnosis: Acute on chronic hypoxic respiratory failure Acute exacerbation diastolic CHF Acute anemia likely chronic GI blood loss Acute exacerbation COPD/asthma 71-year-old female who was recently discharged from this hospital, on November 07. She was in the hospital, on her last visit, because of atrial fibrillation with rapid ventricular response. She underwent cardioversion, and reverted back to normal sinus rhythm. She was discharged on November 07, and apparently was reevaluated on November 08 in the emergency room. The reason for coming back into the hospital, was because of profound weakness. The patient states that when she got home, she could barely pull herself out of bed. She feels like she probably needs either a senior care or rehabilitation. She denies shortness of breath, more so than when she was here last. She does have a history of underlying COPD/asthma. Other medical problems include atrial fibrillation, heart failure, gastroesophageal reflux disease, diverticular perforation with colostomy and reversal, bowel obstruction, osteoporosis, kidney stones, and compression fracture. Laboratory data includes a white count 13.7, hemoglobin 9.5, hematocrit 33.8, and a platelet count of 371,000. A blood gas shows a pO2 of 88, pCO2 73, and a pH is 7.46. Sodium 138, potassium 3.4, chlorides 85, CO2 50, BUN 31, and creatinine 0.85. N-terminal proBNP was 801. Troponin was less than 0.012. Chest x-ray was consistent with mild fluid overload. 11/10/2021 Patient is seen and evaluated resting comfortably in bed; denies any specific complaints Currently, she is on 4 L. She's not receiving any IV fluids. White count 21.1, hemoglobin 9, hematocrit 30.4, and platelet count 313,000. Sodium 135, potassium 2.8, chlorides 81, CO2 56, BUN 45, and creatinine 1.04. Labs, x-rays, and medications are reviewed. Saturations are excellent. She's being evaluated for possible placement in a rehab facility or senior care. She comes in with profound weakness. On her last admission, she was cardioverted, out of atrial fibrillation into normal sinus rhythm. She remains in normal sinus rhythm. Prognosis is guarded. 11/11/2021 Patient is seen and evaluated in room at bedside and discussed with nursing staff; reports of patient coughing and being over after meals patient has been made nothing by mouth; patient had episode of tremors and questionable unr esponsiveness Vital signs are reviewed with temperature of 98.2, pulse 56, decision 18 and blood pressure 111/65 Today's labs include a white count of 17.1, hemoglobin 9.3, hematocrit 32.4, and a platelet count of 298,000. Sodium 136, potassium 3.4, chlorides 84, CO2 52, BUN 51, and creatinine 1.05. Brain CAT scan was negative for anything acute. Patient has been evaluated by urology for episodes of unresponsiveness. She is ordered; hold off on antiepileptic therapy to EEG results are available; MRI of the brain is recommended with and without contrast; order vitamin B12 and folic acid Objective - Vital Signs Vital signs: Vital Signs Temp 97.9 F 11/11/21 08:00 Pulse 56 L 11/11/21 11:29 Resp 18 11/11/21 08:00 BP 97/57 11/11/21 08:00 Pulse Ox 98 11/11/21 08:00 FiO2 36 11/10/21 19:33 Intake & Output 11/10/21 11/11/21 11/11/21 18:59 06:59 18:59 Intake Total 340 Output Total 500 350 Balance -160 -350 Weight 78.2 kg Intake: Oral 340 Output: Urine 500 350 Other: Voiding Method Bedside Commode Bedside Commode Bedside Commode - Exam PHYSICAL EXAMINATION: GENERAL: The patient is alert and oriented x3, not in any acute distress. Well developed, well nourished. HEENT: Pupils are round and equally reacting to light. EOMI. No scleral icterus. No conjunctival pallor. Normocephalic, atraumatic. No pharyngeal erythema. No thyromegaly. CARDIOVASCULAR: S1 and S2 present. No murmurs, rubs, or gallops. PULMONARY: Chest is clear to auscultation, no wheezing or crackles. ABDOMEN: Soft, nontender, nondistended, normoactive bowel sounds. No palpable organomegaly. MUSCULOSKELETAL: No joint swelling or deformity. EXTREMITIES: No cyanosis, clubbing, or pedal edema. NEUROLOGICAL: Gross neurological examination did not reveal any focal deficits. SKIN: No rashes. - Labs CBC & Chem 7: 11/12/21 06:57 11/12/21 06:57 Labs: Abnormal Lab Results - Last 24 Hours (Table) 11/10/21 11/10/21 11/10/21 Range/Units 11:39 14:37 16:38 WBC (3.8-10.6) k/uL Hgb (11.4-16.0) gm/dL Hct (34.0-46.0) % MCH (25.0-35.0) pg MCHC (31.0-37.0) g/dL RDW (11.5-15.5) % Neutrophils # (1.3-7.7) k/uL Monocytes # (0-1.0) k/uL Sodium (137-145) mmol/L Potassium (3.5-5.1) mmol/L Chloride (98-107) mmol/L Carbon Dioxide (22-30) mmol/L BUN (7-17) mg/dL Creatinine (0.52-1.04) mg/dL POC Glucose (mg/dL) 121 H 159 H (70-110) mg/dL Vitamin B12 >2000.0 H (200.0-944.0) pg/mL 11/10/21 11/11/21 11/11/21 Range/Units 20:04 08:48 08:48 WBC 17.1 H (3.8-10.6) k/uL Hgb 9.3 L (11.4-16.0) gm/dL Hct 32.4 L (34.0-46.0) % MCH 23.7 L (25.0-35.0) pg MCHC 28.7 L (31.0-37.0) g/dL RDW 20.7 H (11.5-15.5) % Neutrophils # 14.1 H (1.3-7.7) k/uL Monocytes # 1.2 H (0-1.0) k/uL Sodium 136 L (137-145) mmol/L Potassium 3.4 L (3.5-5.1) mmol/L Chloride 84 L (98-107) mmol/L Carbon Dioxide 52 H* (22-30) mmol/L BUN 51 H (7-17) mg/dL Creatinine 1.05 H (0.52-1.04) mg/dL POC Glucose (mg/dL) 246 H (70-110) mg/dL Vitamin B12 (200.0-944.0) pg/mL 11/11/21 Range/Units 11:21 WBC (3.8-10.6) k/uL Hgb (11.4-16.0) gm/dL Hct (34.0-46.0) % MCH (25.0-35.0) pg MCHC (31.0-37.0) g/dL RDW (11.5-15.5) % Neutrophils # (1.3-7.7) k/uL Monocytes # (0-1.0) k/uL Sodium (137-145) mmol/L Potassium (3.5-5.1) mmol/L Chloride (98-107) mmol/L Carbon Dioxide (22-30) mmol/L BUN (7-17) mg/dL Creatinine (0.52-1.04) mg/dL POC Glucose (mg/dL) 121 H (70-110) mg/dL Vitamin B12 (200.0-944.0) pg/mL Assessment and Plan Assessment: 1. Acute on chronic hypoxic respiratory failure 2. Acute exacerbation diastolic CHF 3. Acute anemia likely related to chronic GI blood loss 4. Acute exacerbation COPD/asthma 5. Chronic back pain related to compression fractures T7, T12 and L2 6. History of osteoporosis Patient is currently on O2 at 4 L per nasal cannula; remains on Lasix 40 mg every 12 hours; we will continue to monitor strict CHAY's, daily weights, renal function and electrolytes; low-salt and fluid restricted diet; cardiology recommending to continue Eliquis, Cardizem, flecainide, metoprolol tartrate -- has been switched to oral prednisone with plans for a quick taper - PT/OT on board for evaluation for possible placement to rehab
[2021-11-12 11:46] LABS: Glucose,Whole Blood 100 mg/dL (70-110)
--- NOTE | 2021-11-12 12:18 | CDI ---
Documentation Clarification Form Date: 11/12/2021 12:07:00 PM From: Funmi Baron CCS, CCDS Admit Date: 11/08/2021 02:12:00 PM Patient Name: Angelique Boyle Visit Number: [id number] Discharge Date: ATTENTION: The Clinical Documentation Specialists (CDI) and [facility] Coding Staff appreciate your assistance in clarifying documentation. Please respond to the clarification below the line at the bottom and electronically sign. The CDI & [facility] Coding staff will review the response and follow-up if needed. Please note: Queries are made part of the Legal Health Record. If you have any questions, please contact the author of this message via ITS. Dr. Abhay Tinajero or Dr. Brielle Albright: Unspecified CKD is documented in the 11/09 Cardiology Consult and in subsequent Cardiology Progress Notes. Additional clarification regarding the stage of CKD is requested. History/Risk Factors per the 11/08 H/P: Atrial Fibrillation, Severe Persistent Asthma, CHF, COPD. Clinical Indicators: Presented to the ED on 11/08 via EMS with SOB & fatigue. Was recently admitted with the same. Admit with CHF, Acute exacerbation of COPD. LABS: 11/08 BUN 31, Creatinine 0.85 11/09 BUN 35, Creatinine 1.09 11/10 BUN 45, Creatinine 1.04 11/11 BUN 51, Creatinine 1.05 11/12 BUN 48, Creatinine 1.13 GFR: 11/08: 69. 8/5: 51. 6.6: 54. 8/7: 54. 8/8 49 Historical GFR: 12/25/2016: >60 Treatment 11/08: Blood glucose monitoring, Telemetry, CHF Protocol, Hypoglycemia protocol, Jeter catheter, Cardiology & Pulmonary consults, Dietitian: Heart Failure; Heart Healthy Diet, O2 2Lnc, PT/OT, INH Duoneb 3 ml q2H/prn, po Aspirin 325 mg x1, IV Lasix 40 mg q8H, IV Solumedrol 60 mg q6H, po Tylenol 650 mg q6H, IV Dextrose 25 mg prn, INH Pulmicort 1 mg BID, INH Perforomist 20 mcg BID, po Eliquis 5 mg BID, po Colace 100 mg BID. Please clarify the stage of the CKD, if known: [ ] CKD Stage 2 (GFR 60-89) [ ] CKD Stage 3 (GFR 30-59) [ xxx ] CKD Stage 3a (GFR 45-59) [ ] Chronic Kidney Disease ruled out [ ] Other, please specify: [ ] Unable to determine (Template Last revised: May 2020) MTDD
--- NOTE | 2021-11-12 14:09 | P.PN ---
Subjective Progress Note Date: 11/12/21 HISTORY OF PRESENT ILLNESS: This is a 71-year-old female past medical history of paroxysmal atrial fibrillation on Eliquis, asthma requiring home oxygen, congestive heart failure, chronic kidney disease. She follows in the office with Dr. Tinajero. We have seen the patient in consultation for congestive heart failure. Patient presents emergency department with complaints of generalized weakness, shortness of breath. Patient was recently discharged from the hospital on 12/04/2021. She states when she went home she felt that she cannot take care of herself, she increased generalized weakness, and increased shortness of breath. She denies any chest pain, leg numbness, dizziness, palpitations, syncope or near syncope. She recently was in the hospital with asthma exacerbation and A fib with RVR from 10/28/2021-11/07/2021. We attempted to control patient's heart rates and were unsuccessful. Patient underwent Cardioversion with Dr. Tinajero on 11/05/2021 Patient required second attempt with 200J to convert to sinus mechanism. She also was managed by pulmonary for asthma exacerbation. She maintained sinus mechanism. She was stabilized and discharged home on 11/07. With a follow up appointment with Dr. Tinajero on 11/13. DIAGNOSTICS * EKG reveals sinus bradycardia, heart rate 54, nonspecific T-wave abnormalities * 10/29/2021 Echocardiogram revealed an EF of 5055 %, both atria are enlarged. Mild to moderate mitral regurgitation * Telemetry tracings indicate sinus mechanism, heart rate 5560s * Chest xray persistent cardiomegaly, more prominent small bilateral pleural effusions. * Laboratory reviewed, VBG 13.7, hemoglobin 9.5, platelets 371, d-dimer negative, sodium 138, potassium 3.4, BUN 31, serum cancer 0.8, proBNP 801, troponin negative * Current home cardiac medications include Lasix 20 mg twice a day, Eliquis 5 mg twice a day, metoprolol titrate 25 mg 3 times a day, Cardizem 180 mg daily, flecainide 150 mg twice a day 11/10/2021 She was seen this morning. She stated that she is feeling better internal shortness of breath. The lower extremities edema has improved somewhat. She reports no pain in the chest. No dizziness or lightheadedness beach she continues to maintain normal sinus mechanism was sinus bradycardia which is asymptomatic pH she continues to be on oral anticoagulation. The creatinine is a slightly worse. I'm going to decrease the dose of Lasix IV and continue monitor the patient for the next 24 hours clinically as well as monitor the kidney function and electrolytes. 11/11/2021 The patient was seen this morning beach she stated that she is feeling somewhat better. The shortness of breath has improved. She continues to have very mild bilateral lower extremities edema. Also on examination she continues to have diminished breathing sounds bilaterally with bilateral rhonchi. Her urine output has been marginal. I'm going to increase the dose of Lasix IV from 20 mg twice a day to 40 mg twice a day, continue monitor the kidney function and electrolytes, and continue monitor the patient for additional 24-hour 11/12/2021 Patient examined this morning at the bedside. Patient denies chest pain or pressure. She denies shortness of breath. She remains on IV Lasix. Vital signs are stable. BUN 48. Creatinine 1.13. Telemetry reveals sinus bradycardia. Echocardiogram completed in October 2021 revealed ejection fraction 50-55%. PHYSICAL EXAM: VITAL SIGNS: Reviewed. GENERAL: Well-developed in no acute distress. NECK: Supple. No JVD or thyromegaly LUNGS: Respirations even and unlabored. Lungs essentially clear to auscultation bilaterally. HEART: Regular rate and rhythm. S1 and S2 heard. EXTREMITIES: Normal range of motion. No clubbing or cyanosis. Peripheral pulses intact. Trace lower extremity edema ASSESSMENT: As of breath Acute on chronic heart failure with preserved ejection fraction Paroxysmal atrial fibrillation, currently maintaining sinus mechanism Acute COPD exacerbation Chronic kidney disease Asthma, on home oxygen PLAN: Continue current cardiac medications Discontinue IV lasix. Begin oral lasix 40mg BID Continue to monitor kidney function, daily weights, an accurate I&O Further recommendations pending patient's course Patient to follow-up post discharge with Dr. Tinajero Nurse practitioner note has been reviewed by physician. Signing provider agrees with the documented findings, assessment, and plan of care. Objective - Vital Signs Vital signs: Vital Signs Temp 98.5 F 11/12/21 12:00 Pulse 59 L 11/12/21 12:00 Resp 24 11/12/21 12:00 BP 102/52 11/12/21 12:00 Pulse Ox 94 L 11/12/21 12:00 FiO2 36 11/10/21 19:33 Intake & Output 11/11/21 11/12/21 11/12/21 18:59 06:59 18:59 Output Total 1000 1500 200 Balance -1000 -1500 -200 Weight 76.3 kg Output: Urine 1000 1500 200 Other: Voiding Method Bedside Commode Bedside Commode Bedside Commode - Labs CBC & Chem 7: 11/12/21 06:57 11/12/21 06:57 Labs: Abnormal Lab Results - Last 24 Hours (Table) 11/11/21 11/11/21 11/12/21 Range/Units 16:38 20:12 02:31 WBC (3.8-10.6) k/uL Hgb (11.4-16.0) gm/dL MCH (25.0-35.0) pg MCHC (31.0-37.0) g/dL RDW (11.5-15.5) % Neutrophils # (1.3-7.7) k/uL Potassium (3.5-5.1) mmol/L Chloride (98-107) mmol/L Carbon Dioxide (22-30) mmol/L BUN (7-17) mg/dL Creatinine (0.52-1.04) mg/dL POC Glucose (mg/dL) 129 H 147 H 142 H (70-110) mg/dL 11/12/21 11/12/21 Range/Units 06:57 06:57 WBC 16.6 H (3.8-10.6) k/uL Hgb 10.7 L (11.4-16.0) gm/dL MCH 23.8 L (25.0-35.0) pg MCHC 28.7 L (31.0-37.0) g/dL RDW 21.5 H (11.5-15.5) % Neutrophils # 14.4 H (1.3-7.7) k/uL Potassium 3.4 L (3.5-5.1) mmol/L Chloride 86 L (98-107) mmol/L Carbon Dioxide 43 H* (22-30) mmol/L BUN 48 H (7-17) mg/dL Creatinine 1.13 H (0.52-1.04) mg/dL POC Glucose (mg/dL) (70-110) mg/dL
--- NOTE | 2021-11-12 14:22 | P.PN ---
Subjective Progress Note Date: 11/12/21 71-year-old female who was recently discharged from this hospital, on November 07. She was in the hospital, on her last visit, because of atrial fibrillation with rapid ventricular response. She underwent cardioversion, and reverted back to normal sinus rhythm. She was discharged on November 07, and apparently was reevaluated on November 08 in the emergency room. The reason for coming back into the hospital, was because of profound weakness. The patient states that when she got home, she could barely pull herself out of bed. She feels like she probably needs either a fci or rehabilitation. She denies shortness of breath, more so than when she was here last. She does have a history of unde rlying COPD/asthma. Other medical problems include atrial fibrillation, heart failure, gastroesophageal reflux disease, diverticular perforation with colostomy and reversal, bowel obstruction, osteoporosis, kidney stones, and compression fracture. Laboratory data includes a white count 13.7, hemoglobin 9.5, hematocrit 33.8, and a platelet count of 371,000. A blood gas shows a pO2 of 88, pCO2 73, and a pH is 7.46. Sodium 138, potassium 3.4, chlorides 85, CO2 50, BUN 31, and creatinine 0.85. N-terminal proBNP was 801. Troponin was less than 0.012. Chest x-ray was consistent with mild fluid overload. Progress note dated 11/10/2021. 71-year-old female was recently discharged from this hospital, with atrial fibrillation and rapid ventricular response, having been cardioverted. She was readmitted because of weakness, and some mild fluid overload. Currently, she is on 4 L. She's not receiving any IV fluids. White count 21.1, hemoglobin 9, hematocrit 30.4, and platelet count 313,000. Sodium 135, potassium 2.8, chlorides 81, CO2 56, BUN 45, and creatinine 1.04. Progress note dated 11/11/2021. 71-year-old female seen today in room 367. The patient was sleeping, and was very stable, and seemed to be not in any distress. Currently, she is on 4 L nasal cannula. She's not receiving any IV fluids. She is currently being evaluated by the primary service for possible rehabilitation. She came into the hospital for profound weakness. Today's labs include a white count of 17.1, hemoglobin 9.3, hematocrit 32.4, and a platelet count of 298,000. Sodium 136, potassium 3.4, chlorides 84, CO2 52, BUN 51, and creatinine 1.05. Brain CAT scan was negative for anything acute. On today's evaluation of 11/12/2021 the patient is quite weak. She is unable to cooperate with the physical therapy and she is unable to stand up. CAT scan of the brain was negative. An MRI of the brain is also in progress. Meanwhile, the patient's cardiac rhythm is sinus. The patient is currently on anticoagulation with Eliquis. The patient is also on a combination of medications including flecainide 150 mg by mouth twice a day and metoprolol 25 mg by mouth 3 times a day and this has maintain a normal sinus rhythm. The patient was not psychotic 16.6 with a hemoglobin of 10.7 and a platelet count of 291. BUN is a 48 with a creatinine of 1.1. Insulin level is at 137. Potassium level needs to be replaced. It is currently at 3.4. The patient is known to have chronic metabolic alkalosis. The coagulation profile has been within normal limits. Over that he doesn't think is been negative and influenza screen was also negative. Some increased interstitial markings with small bilateral pleural effusion, probably related to underlying CHF. Currently the patient is on 4 L O2 nasal cannula. Objective - Vital Signs Vital signs: Vital Signs Temp 98.7 F 11/12/21 02:30 Pulse 54 L 11/12/21 11:41 Resp 19 11/12/21 02:30 BP 101/55 11/12/21 02:30 Pulse Ox 94 L 11/12/21 09:30 FiO2 36 11/10/21 19:33 Intake & Output 11/11/21 11/12/21 11/12/21 18:59 06:59 18:59 Output Total 1000 1500 200 Balance -1000 -1500 -200 Weight 76.3 kg Output: Urine 1000 1500 200 Other: Voiding Method Bedside Commode Bedside Commode - Exam No acute distress, oriented 3. No respiratory distress, conversational dyspnea, or use of accessory muscles., Currently on 4 L O2 nasal cannula HEENT examination is grossly unremarkable. Neck supple. Full range of motion. No adenopathy thyromegaly or neck vein distention. Cardiovascular examination reveals regular rhythm rate. S1-S2 normal. No S3 or S4. No discernible murmur noted. Heart rate 56 bpm. Lungs reveal mostly clear breath sounds. Minimal basilar crackles. No wheezes. Minimal rhonchi. Abdomen soft bowel sounds are heard. No masses or tenderness. Extremities are intact. No cyanosis clubbing or edema. Skin is without rash or lesion. Neurologic examination is brief but nonfocal. - Labs CBC & Chem 7: 11/12/21 06:57 11/12/21 06:57 Labs: Abnormal Lab Results - Last 24 Hours (Table) 11/11/21 11/11/21 11/12/21 Range/Units 16:38 20:12 02:31 WBC (3.8-10.6) k/uL Hgb (11.4-16.0) gm/dL MCH (25.0-35.0) pg MCHC (31.0-37.0) g/dL RDW (11.5-15.5) % Neutrophils # (1.3-7.7) k/uL Potassium (3.5-5.1) mmol/L Chloride (98-107) mmol/L Carbon Dioxide (22-30) mmol/L BUN (7-17) mg/dL Creatinine (0.52-1.04) mg/dL POC Glucose (mg/dL) 129 H 147 H 142 H (70-110) mg/dL 11/12/21 11/12/21 Range/Units 06:57 06:57 WBC 16.6 H (3.8-10.6) k/uL Hgb 10.7 L (11.4-16.0) gm/dL MCH 23.8 L (25.0-35.0) pg MCHC 28.7 L (31.0-37.0) g/dL RDW 21.5 H (11.5-15.5) % Neutrophils # 14.4 H (1.3-7.7) k/uL Potassium 3.4 L (3.5-5.1) mmol/L Chloride 86 L (98-107) mmol/L Carbon Dioxide 43 H* (22-30) mmol/L BUN 48 H (7-17) mg/dL Creatinine 1.13 H (0.52-1.04) mg/dL POC Glucose (mg/dL) (70-110) mg/dL Assessment and Plan Plan: Profound weakness, under investigation, probably multifactorial Paroxysmal atrial fibrillation, following recent admission for atrial fibrillation/RVR, requiring cardioversion. The patient's cardiac rhythm is sinus for now. Patient is currently on a combination of metoprolol, flecainide and the patient on long-term and coagulation with Eliquis. The echocardiogram showed a preserved LV function. No evidence of any pulmonary hypertension. No evidence of any valvular heart disease. Chronic and slightly worsening shortness of breath, secondary to mild fluid overload. Acute on chronic hypoxemic respiratory failure, currently on 4 L of O2 nasal cannula Acute diastolic CHF. Acute anemia, with suspected chronic GI blood losses. History of severe persistent asthma. Prior history of diverticular perforation, status post colostomy and subsequent reversal. T7, T12 and L2 compression fractures. Chronic low back pain. History of kidney stones. History of osteoporosis. History of splenectomy. Plan: MRI of the brain Wean FiO2 as tolerated to maintain saturation above 90% Continue metoprolol and flecainide and anticoagulation with Eliquis Home medications were resumed No signs of any infection or sepsis Aggressive physical therapy and rehabilitation Awaiting MRI of the brain We'll continue to follow
--- NOTE | 2021-11-12 14:36 | P.PN ---
Subjective Progress Note Date: 11/12/21 Principal diagnosis: Acute on chronic hypoxic respiratory failure Acute exacerbation diastolic CHF Acute anemia likely chronic GI blood loss Acute exacerbation COPD/asthma 71-year-old female who was recently discharged from this hospital, on November 07. She was in the hospital, on her last visit, because of atrial fibrillation with rapid ventricular response. She underwent cardioversion, and reverted back to normal sinus rhythm. She was discharged on November 07, and apparently was reevaluated on November 08 in the emergency room. The reason for coming back into the hospital, was because of profound weakness. The patient states that when she got home, she could barely pull herself out of bed. She feels like she probably needs either a half-way or rehabilitation. She denies shortness of breath, more so than when she was here last. She does have a history of underlying COPD/asthma. Other medical problems include atrial fibrillation, heart failure, gastroesophageal reflux disease, diverticular perforation with colostomy and reversal, bowel obstruction, osteoporosis, kidney stones, and compression fracture. Laboratory data includes a white count 13.7, hemoglobin 9.5, hematocrit 33.8, and a platelet count of 371,000. A blood gas shows a pO2 of 88, pCO2 73, and a pH is 7.46. Sodium 138, potassium 3.4, chlorides 85, CO2 50, BUN 31, and creatinine 0.85. N-terminal proBNP was 801. Troponin was less than 0.012. Chest x-ray was consistent with mild fluid overload. 11/10/2021 Patient is seen and evaluated resting comfortably in bed; denies any specific complaints Currently, she is on 4 L. She's not receiving any IV fluids. White count 21.1, hemoglobin 9, hematocrit 30.4, and platelet count 313,000. Sodium 135, potassium 2.8, chlorides 81, CO2 56, BUN 45, and creatinine 1.04. Labs, x-rays, and medications are reviewed. Saturations are excellent. She's being evaluated for possible placement in a rehab facility or half-way. She comes in with profound weakness. On her last admission, she was cardioverted, out of atrial fibrillation into normal sinus rhythm. She remains in normal sinus rhythm. Prognosis is guarded. 11/11/2021 Patient is seen and evaluated in room at bedside and discussed with nursing staff; reports of patient coughing and being over after meals patient has been made nothing by mouth; patient had episode of tremors and questionable unr esponsiveness Vital signs are reviewed with temperature of 98.2, pulse 56, decision 18 and blood pressure 111/65 Today's labs include a white count of 17.1, hemoglobin 9.3, hematocrit 32.4, and a platelet count of 298,000. Sodium 136, potassium 3.4, chlorides 84, CO2 52, BUN 51, and creatinine 1.05. Brain CAT scan was negative for anything acute. Patient has been evaluated by urology for episodes of unresponsiveness. She is ordered; hold off on antiepileptic therapy to EEG results are available; MRI of the brain is recommended with and without contrast; order vitamin B12 and folic acid 11/12/2021 Patient is seen and evaluated in room at bedside; remains quite weak. CAT scan of the brain was negative. An MRI of the brain is also in progress. Meanwhile, the patient's cardiac rhythm is sinus. The patient is currently on anticoagulation with Eliquis. The patient is also on a combination of medications including flecainide 150 mg by mouth twice a day and metoprolol 25 mg by mouth 3 times a day and this has maintain a normal sinus rhythm. Blood work reveals 16.6 with a hemoglobin of 10.7 and a platelet count of 291. BUN is a 48 with a creatinine of 1.1. Insulin level is at 137. Potassium level needs to be replaced. It is currently at 3.4. The patient is known to have chronic metabolic alkalosis. The coagulation profile has been within normal limits. Over that he doesn't think is been negative and influenza screen was also negative. Some increased interstitial markings with small bilateral pleural effusion, probably related to underlying CHF. Currently the patient is on 4 L O2 nasal cannula. Patient to be transferred to skilled rehab once clinically stable Objective - Vital Signs Vital signs: Vital Signs Temp 98.7 F 11/12/21 02:30 Pulse 51 L 11/12/21 03:57 Resp 19 11/12/21 02:30 BP 101/55 11/12/21 02:30 Pulse Ox 96 11/12/21 07:17 FiO2 36 11/10/21 19:33 Intake & Output 11/11/21 11/12/21 11/12/21 18:59 06:59 18:59 Output Total 1000 1500 Balance -1000 -1500 Weight 76.3 kg Output: Urine 1000 1500 Other: Voiding Method Bedside Commode Bedside Commode - Exam PHYSICAL EXAMINATION: GENERAL: The patient is alert and oriented x3, not in any acute distress. Well developed, well nourished. HEENT: Pupils are round and equally reacting to light. EOMI. No scleral icterus. No conjunctival pallor. Normocephalic, atraumatic. No pharyngeal erythema. No thyromegaly. CARDIOVASCULAR: S1 and S2 present. No murmurs, rubs, or gallops. PULMONARY: Chest is clear to auscultation, no wheezing or crackles. ABDOMEN: Soft, nontender, nondistended, normoactive bowel sounds. No palpable organomegaly. MUSCULOSKELETAL: No joint swelling or deformity. EXTREMITIES: No cyanosis, clubbing, or pedal edema. NEUROLOGICAL: Gross neurological examination did not reveal any focal deficits. SKIN: No rashes. - Labs CBC & Chem 7: 11/12/21 06:57 11/12/21 06:57 Labs: Abnormal Lab Results - Last 24 Hours (Table) 11/11/21 11/11/21 11/11/21 Range/Units 11:21 16:38 20:12 WBC (3.8-10.6) k/uL Hgb (11.4-16.0) gm/dL MCH (25.0-35.0) pg MCHC (31.0-37.0) g/dL RDW (11.5-15.5) % Neutrophils # (1.3-7.7) k/uL Potassium (3.5-5.1) mmol/L Chloride (98-107) mmol/L Carbon Dioxide (22-30) mmol/L BUN (7-17) mg/dL Creatinine (0.52-1.04) mg/dL POC Glucose (mg/dL) 121 H 129 H 147 H (70-110) mg/dL 11/12/21 11/12/21 11/12/21 Range/Units 02:31 06:57 06:57 WBC 16.6 H (3.8-10.6) k/uL Hgb 10.7 L (11.4-16.0) gm/dL MCH 23.8 L (25.0-35.0) pg MCHC 28.7 L (31.0-37.0) g/dL RDW 21.5 H (11.5-15.5) % Neutrophils # 14.4 H (1.3-7.7) k/uL Potassium 3.4 L (3.5-5.1) mmol/L Chloride 86 L (98-107) mmol/L Carbon Dioxide 43 H* (22-30) mmol/L BUN 48 H (7-17) mg/dL Creatinine 1.13 H (0.52-1.04) mg/dL POC Glucose (mg/dL) 142 H (70-110) mg/dL Assessment and Plan Assessment: 1. Acute on chronic hypoxic respiratory failure 2. Acute exacerbation diastolic CHF 3. Acute anemia likely related to chronic GI blood loss 4. Acute exacerbation COPD/asthma 5. Chronic back pain related to compression fractures T7, T12 and L2 6. History of osteoporosis Patient is currently on O2 at 4 L per nasal cannula; remains on Lasix 40 mg every 12 hours; we will continue to monitor strict CHAY's, daily weights, renal function and electrolytes; low-salt and fluid restricted diet; cardiology recommending to continue Eliquis, Cardizem, flecainide, metoprolol tartrate -- has been switched to oral prednisone with plans for a quick taper - PT/OT on board for evaluation for possible placement to rehab
[2021-11-12] MEDS ORDERED: POTASSIUM CHLORIDE ER 20 MEQ TAB.ER PO STA (14:53)
[2021-11-12] MEDS: MAGNESIUM OXIDE 400 MG TAB PO SCH (15:03)
[2021-11-12] MEDS: predniSONE 10 MG TAB PO SCH (15:05)
[2021-11-12] MEDS: VITAMIN E (DL,TOCOPHERYL ACET) 400 UNIT (180 MG) CAP PO SCH (15:05)
[2021-11-12] MEDS: FUROSEMIDE 40 MG TAB PO SCH (15:05)
--- NOTE | 2021-11-12 16:02 | P.PN ---
Subjective Progress Note Date: 11/12/21 Patient was initially seen by Dr. David Gallardo. Please refer to his note for details. Patient is a 71-year-old female, who has an episode of questionable unresponsiveness and staring episode as well as tremor. Patient tells me that she is feeling gassy in the stomach. Also constipated and uses stool softener for a long time. She gets weak when she gets up, her legs goes out when she stands up. complains of numbness in the lower legs bilaterally. No symptoms in the upper extremities. Patient states she has chronic back pain. It has been "forever". Denies any neck pain. Objective - Vital Signs Vital signs: Vital Signs Temp 96.2 F L 11/12/21 15:30 Pulse 56 L 11/12/21 15:30 Resp 20 11/12/21 15:30 BP 118/56 11/12/21 15:30 Pulse Ox 97 11/12/21 15:30 FiO2 36 11/10/21 19:33 Intake & Output 11/11/21 11/12/21 11/12/21 18:59 06:59 18:59 Intake Total 120 Output Total 1000 1500 550 Balance -1000 -1500 -430 Weight 76.3 kg Intake: Other 120 Output: Urine 1000 1500 550 Stool 0 Other: Voiding Method Bedside Commode Bedside Commode Bedside Commode - Exam Patient is an elderly female, very pleasant, in no acute distress. Patient is alert awake oriented to time place and person. She knows it is November 2021 and that she is in [facility] and name of the current president. Speech and language functions are normal. Patient can name and repeat very well. Attention, concentration and fund of knowledge is adequate. On cranial examination, pupils are round and reacting to light, visual vela are full on confrontation, extraocular muscles are intact with no nystagmus. Face is symmetric, tongue protrudes to the midline. Palatal elevation and sensation normal, hearing and shoulder shrug normal, facial sensation normal. Shoulder shrug normal. On muscle strength testing, there is no pronator drift and the strength is normal in arms and legs distally and proximally. hip flexion is 5-bilaterally. Deep tendon reflexes are (right/left) biceps 1/2, brachioradialis 1/2, knee 1/1, ankles 0/0, plantar is downgoing bilaterally. No myoclonic jerks, no asterixis. Sensory to touch is equal with no neglect. Cerebellar function showed no ataxia for [id number] testing. No dysd iadochokinesia. Tone and bulk of muscles normal. Gait not checked. On general examination, there is no carotid bruit or murmur, S1-S2 audible. Abdomen is soft nontender. Chest is clear. Peripheral pulses are present. No edema. patient has multiple areas of ecchymosis, bruises, in her arms and legs. - Labs CBC & Chem 7: 11/12/21 06:57 11/12/21 06:57 Labs: Abnormal Lab Results - Last 24 Hours (Table) 11/11/21 11/11/21 11/12/21 Range/Units 16:38 20:12 02:31 WBC (3.8-10.6) k/uL Hgb (11.4-16.0) gm/dL MCH (25.0-35.0) pg MCHC (31.0-37.0) g/dL RDW (11.5-15.5) % Neutrophils # (1.3-7.7) k/uL Potassium (3.5-5.1) mmol/L Chloride (98-107) mmol/L Carbon Dioxide (22-30) mmol/L BUN (7-17) mg/dL Creatinine (0.52-1.04) mg/dL POC Glucose (mg/dL) 129 H 147 H 142 H (70-110) mg/dL 11/12/21 11/12/21 Range/Units 06:57 06:57 WBC 16.6 H (3.8-10.6) k/uL Hgb 10.7 L (11.4-16.0) gm/dL MCH 23.8 L (25.0-35.0) pg MCHC 28.7 L (31.0-37.0) g/dL RDW 21.5 H (11.5-15.5) % Neutrophils # 14.4 H (1.3-7.7) k/uL Potassium 3.4 L (3.5-5.1) mmol/L Chloride 86 L (98-107) mmol/L Carbon Dioxide 43 H* (22-30) mmol/L BUN 48 H (7-17) mg/dL Creatinine 1.13 H (0.52-1.04) mg/dL POC Glucose (mg/dL) (70-110) mg/dL Assessment and Plan Assessment: Tremor and questionable unresponsiveness. Possible syncopal, doubt seizure. Her episodes of tremor could be myoclonus from metabolic derangement/Hyercapnia. Her questionable unresponsiveness: rule out cardiac in etiology with heart failure. Atrial fibrillation post cardioversion and is on eliquis Shortness of breath Acute on chronic respiratory failure ABG she has hypercapnia. Acute diastolic congestive heart failure T7, T12 and L2 compression fracture Chronic lower back pain History of osteoporosis Plan: EEG was performed today, which was mildly abnormal due to presence of excessive low voltage fast frequency beta activity suggestive of medication effect. Intermittent slowing was also seen, suggestive of mild encephalopathy. No definitive epileptiform activity was seen. No indication for antiepileptic medication. Await MRI Brain w/ and w/o. 2-D echo revealed EF 50-55%, both atria are enlarged. Mitral annular calcifica tion and aortic valve sclerosis. Mild to moderate MR. Vitamin B12 >2000, folate >20.0, TSH 0.593. Continue neuro checks Cardiology, and pulmonary team is on board PT and OT are on board We'll defer the rest of the medical management to the primary team
[2021-11-12 16:20] LABS: Glucose,Whole Blood 119 mg/dL (70-110)
[2021-11-12] MEDS: CHOLECALCIFEROL 25 MCG (1000 IU) TABLET PO SCH (16:41)
[2021-11-12 20:03] LABS: Glucose,Whole Blood 171 mg/dL (70-110)
[2021-11-12] MEDS: ACETAMINOPHEN TAB 325 MG TAB PO PRN (21:36)
--- NOTE | 2021-11-12 22:43 | EEG ---
ELECTROENCEPHALOGRAM REPORT PREAMBLE: This is a 71-year-old female, who has tremor, AMS, rule out seizure. The patient is currently on Eliquis, Cardizem, Colace, Lopressor, NovoLog, and Tambocor. EEG FINDINGS: This is a 21-channel digital EEG recorded with video component, utilizing 10/20 international system with referential and bipolar montages. Background consists of moderately well-developed and regulated, mixed frequencies of 8 to 9 Hz alpha, intermixed with low-voltage fast frequency beta activity seen in bihemispheric region. Photic driving response was not clearly seen. Some drowsiness was seen with appearance of bilaterally symmetric theta frequency rhythm. Different stages of sleep were not seen. No focal or generalized epileptiform activity was seen. IMPRESSION: This is a mildly abnormal EEG due to the presence of excessive low-voltage fast frequency beta activity, suggestive of medication effect. Intermittent slowing was also seen, suggestive of mild encephalopathy. No definitive epileptiform activity was seen. MMODL / IJN: [id number] / [facility]
[2021-11-13] MEDS: IPRATROPIUM-ALBUTEROL 3 ML NEB INHALATION PRN ×2 (03:38→23:41)
[2021-11-13] MEDS: guaiFENesin-DM 100-10MG/5ML 10 ML CUP PO SCH ×4 (04:30→18:09)
[2021-11-13 05:57] LABS: Glucose,Whole Blood 124 mg/dL (70-110)
[2021-11-13] MEDS: INSULIN ASPART (NovoLOG) 100 UNIT/ML VIAL SQ SCH ×4 (06:04→21:21)
[2021-11-13] MEDS: FERROUS SULFATE 325 MG TAB PO SCH ×3 (06:17→16:15)
[2021-11-13] MEDS: IPRATROPIUM-ALBUTEROL 3 ML NEB INHALATION SCH ×4 (07:55→19:40)
[2021-11-13] MEDS: SYMBICORT 160-4.5 MCG INHALER INHALATION SCH ×2 (07:55→19:40)
[2021-11-13] MEDS: CALCIUM CARB-VIT D 500 MG-5 MCG TAB PO SCH (08:35)
[2021-11-13] MEDS: FUROSEMIDE 40 MG TAB PO SCH ×2 (08:35→16:11)
[2021-11-13] MEDS: FOLIC ACID 1 MG TAB PO SCH (08:35)
[2021-11-13] MEDS: predniSONE 10 MG TAB PO SCH (08:35)
[2021-11-13] MEDS: CHOLECALCIFEROL 25 MCG (1000 IU) TABLET PO SCH (08:35)
[2021-11-13] MEDS: MAGNESIUM OXIDE 400 MG TAB PO SCH (08:35)
[2021-11-13] MEDS: DOCUSATE 100 MG CAP PO SCH ×2 (08:35→22:06)
[2021-11-13] MEDS: FLECAINIDE 50 MG TAB PO SCH ×2 (08:35→22:06)
[2021-11-13] MEDS: METOPROLOL TARTRATE 25 MG TAB PO SCH ×3 (08:35→23:49)
[2021-11-13] MEDS: FLUTICASONE 50MCG/SPRAY NASAL 16GM EA NOSTRIL SCH (08:36)
[2021-11-13] MEDS: DILTIAZEM CD 180 MG CAP.ER.24H PO SCH (08:36)
[2021-11-13] MEDS: CALCITONIN 200 USP/1 NASAL SPRAY 3.7ML BTL NASAL SCH (08:36)
[2021-11-13] MEDS: APIXABAN 5 MG TAB PO SCH ×2 (08:36→22:06)
[2021-11-13] MEDS: VITAMIN E (DL,TOCOPHERYL ACET) 400 UNIT (180 MG) CAP PO SCH (08:37)
[2021-11-13 09:27] LABS: Calcium 9.4 mg/dL (8.4-10.2); Potassium 3.8 mmol/L (3.5-5.1)
--- NOTE | 2021-11-13 11:26 | MR ---
EXAMINATION TYPE: MR brain wo/w con DATE OF EXAM: 11/13/2021 COMPARISON: CT brain 11/11/2021 HISTORY: seizure protocol TECHNIQUE: Multiplanar, multisequence images of the brain and brainstem is performed without and with IV contras t, utilizing 7.5 mL intravenous Gadavist . FINDINGS: Diffusion weighted images demonstrate no evidence of a recent infarct or other diffusion ab normality. There is extensive bilateral mastoiditis. Changes of chronic sinusitis. Orbits are symmet ger. Moderate generalized degenerative change with multiple areas of abnormal signal seen scattered throug hout the white matter bilaterally nonspecific pattern. Most likely on the basis of remote white matte r microvascular ischemic. Midline structures demonstrate normal morphology. A partially empty sella turcica. The craniocervica l junction appears within normal limits. Post contrast images demonstrate no abnormal enhancement. T he dural venous sinuses appear patent IMPRESSION: 1. Degenerative and nonspecific white matter changes most typical of ischemia. Slightly greater centr al component of ventricular dilation can occasionally be associated with a component of normal pressu re hydrocephalus can correlate clinically. 2. No diagnostic evidence of acute ischemia or enhancing mass. 3. Severe bilateral mastoiditis with [id number] chronic sinusitis.
--- NOTE | 2021-11-13 11:46 | P.PN ---
Subjective Progress Note Date: 11/13/21 HISTORY OF PRESENT ILLNESS: This is a 71-year-old female past medical history of paroxysmal atrial fibrillation on Eliquis, asthma requiring home oxygen, congestive heart failure, chronic kidney disease. She follows in the office with Dr. Tinajero. We have seen the patient in consultation for congestive heart failure. Patient presents emergency department with complaints of generalized weakness, shortness of breath. Patient was recently discharged from the hospital on 12/04/2021. She states when she went home she felt that she cannot take care of herself, she increased generalized weakness, and increased shortness of breath. She denies any chest pain, leg numbness, dizziness, palpitations, syncope or near syncope. She recently was in the hospital with asthma exacerbation and A fib with RVR from 10/28/2021-11/07/2021. We attempted to control patient's heart rates and were unsuccessful. Patient underwent Cardioversion with Dr. Tinajero on 11/05/2021 Patient required second attempt with 200J to convert to sinus mechanism. She also was managed by pulmonary for asthma exacerbation. She maintained sinus mechanism. She was stabilized and discharged home on 11/07. With a follow up appointment with Dr. Tinajero on 11/13. DIAGNOSTICS * EKG reveals sinus bradycardia, heart rate 54, nonspecific T-wave abnormalities * 10/29/2021 Echocardiogram revealed an EF of 5055 %, both atria are enlarged. Mild to moderate mitral regurgitation * Telemetry tracings indicate sinus mechanism, heart rate 5560s * Chest xray persistent cardiomegaly, more prominent small bilateral pleural effusions. * Laboratory reviewed, VBG 13.7, hemoglobin 9.5, platelets 371, d-dimer negative, sodium 138, potassium 3.4, BUN 31, serum cancer 0.8, proBNP 801, troponin negative * Current home cardiac medications include Lasix 20 mg twice a day, Eliquis 5 mg twice a day, metoprolol titrate 25 mg 3 times a day, Cardizem 180 mg daily, flecainide 150 mg twice a day 11/10/2021 She was seen this morning. She stated that she is feeling better internal shortness of breath. The lower extremities edema has improved somewhat. She reports no pain in the chest. No dizziness or lightheadedness beach she continues to maintain normal sinus mechanism was sinus bradycardia which is asymptomatic pH she continues to be on oral anticoagulation. The creatinine is a slightly worse. I'm going to decrease the dose of Lasix IV and continue monitor the patient for the next 24 hours clinically as well as monitor the kidney function and electrolytes. 11/11/2021 The patient was seen this morning beach she stated that she is feeling somewhat better. The shortness of breath has improved. She continues to have very mild bilateral lower extremities edema. Also on examination she continues to have diminished breathing sounds bilaterally with bilateral rhonchi. Her urine output has been marginal. I'm going to increase the dose of Lasix IV from 20 mg twice a day to 40 mg twice a day, continue monitor the kidney function and electrolytes, and continue monitor the patient for additional 24-hour 11/12/2021 Patient examined this morning at the bedside. Patient denies chest pain or pressure. She denies shortness of breath. She remains on IV Lasix. Vital signs are stable. BUN 48. Creatinine 1.13. Telemetry reveals sinus bradycardia. Echocardiogram completed in October 2021 revealed ejection fraction 50-55%. 11/13/2021 Patient examined this morning. Patient denies chest pain or pressure bruits she denies shortness of breath. She was transitioned to oral Lasix yesterday. BUN 54. Creatinine 1.19. Patient complains of significant constipation and mild abdominal pain this morning. Patient states she takes MiraLAX at home which she reports she has not been receiving. PHYSICAL EXAM: VITAL SIGNS: Reviewed. GENERAL: Well-developed in no acute distress. NECK: Supple. No JVD or thyromegaly LUNGS: Respirations even and unlabored. Lungs essentially clear to auscultation bilaterally. HEART: Regular rate and rhythm. S1 and S2 heard. EXTREMITIES: Normal range of motion. No clubbing or cyanosis. Peripheral pulses intact. Trace lower extremity edema ASSESSMENT: Shortness of breath Acute on chronic heart failure with preserved ejection fraction Paroxysmal atrial fibrillation, currently maintaining sinus mechanism Acute COPD exacerbation Chronic kidney disease Asthma, on home oxygen PLAN: Continue current cardiac medications Continue to monitor kidney function, daily weights, and accurate I&O Further recommendations pending patient's course Patient to follow-up post discharge with Dr. Tinajero Nurse practitioner note has been reviewed by physician. Signing provider agrees with the documented findings, assessment, and plan of care. Objective - Vital Signs Vital signs: Vital Signs Temp 98 F 11/13/21 08:35 Pulse 54 L 11/13/21 08:35 Resp 18 11/13/21 08:35 BP 103/59 11/13/21 08:35 Pulse Ox 98 11/13/21 08:35 FiO2 36 11/10/21 19:33 Intake & Output 11/12/21 11/13/21 11/13/21 18:59 06:59 18:59 Intake Total 120 Output Total 900 Balance -780 Weight 73 kg Intake: Other 120 Output: Urine 900 Stool 0 Other: Voiding Method Bedside Commode Bedside Commode Bedside Commode # Voids 3 1 - Labs CBC & Chem 7: 11/12/21 06:57 11/13/21 08:49 Labs: Abnormal Lab Results - Last 24 Hours (Table) 11/12/21 11/12/21 11/13/21 Range/Units 16:18 20:02 05:55 Chloride (98-107) mmol/L Carbon Dioxide (22-30) mmol/L BUN (7-17) mg/dL Creatinine (0.52-1.04) mg/dL Glucose (74-99) mg/dL POC Glucose (mg/dL) 119 H 171 H 124 H (70-110) mg/dL 11/13/21 Range/Units 08:49 Chloride 85 L (98-107) mmol/L Carbon Dioxide 42 H* (22-30) mmol/L BUN 54 H (7-17) mg/dL Creatinine 1.19 H (0.52-1.04) mg/dL Glucose 102 H (74-99) mg/dL POC Glucose (mg/dL) (70-110) mg/dL
[2021-11-13 11:51] LABS: Glucose,Whole Blood 115 mg/dL (70-110)
--- NOTE | 2021-11-13 15:09 | P.PN ---
Subjective Progress Note Date: 11/13/21 71-year-old female who was recently discharged from this hospital, on November 07. She was in the hospital, on her last visit, because of atrial fibrillation with rapid ventricular response. She underwent cardioversion, and reverted back to normal sinus rhythm. She was discharged on November 07, and apparently was reevaluated on November 08 in the emergency room. The reason for coming back into the hospital, was because of profound weakness. The patient states that when she got home, she could barely pull herself out of bed. She feels like she probably needs either a assisted or rehabilitation. She denies shortness of breath, more so than when she was here last. She does have a history of unde rlying COPD/asthma. Other medical problems include atrial fibrillation, heart failure, gastroesophageal reflux disease, diverticular perforation with colostomy and reversal, bowel obstruction, osteoporosis, kidney stones, and compression fracture. Laboratory data includes a white count 13.7, hemoglobin 9.5, hematocrit 33.8, and a platelet count of 371,000. A blood gas shows a pO2 of 88, pCO2 73, and a pH is 7.46. Sodium 138, potassium 3.4, chlorides 85, CO2 50, BUN 31, and creatinine 0.85. N-terminal proBNP was 801. Troponin was less than 0.012. Chest x-ray was consistent with mild fluid overload. Progress note dated 11/10/2021. 71-year-old female was recently discharged from this hospital, with atrial fibrillation and rapid ventricular response, having been cardioverted. She was readmitted because of weakness, and some mild fluid overload. Currently, she is on 4 L. She's not receiving any IV fluids. White count 21.1, hemoglobin 9, hematocrit 30.4, and platelet count 313,000. Sodium 135, potassium 2.8, chlorides 81, CO2 56, BUN 45, and creatinine 1.04. Progress note dated 11/11/2021. 71-year-old female seen today in room 367. The patient was sleeping, and was very stable, and seemed to be not in any distress. Currently, she is on 4 L nasal cannula. She's not receiving any IV fluids. She is currently being evaluated by the primary service for possible rehabilitation. She came into the hospital for profound weakness. Today's labs include a white count of 17.1, hemoglobin 9.3, hematocrit 32.4, and a platelet count of 298,000. Sodium 136, potassium 3.4, chlorides 84, CO2 52, BUN 51, and creatinine 1.05. Brain CAT scan was negative for anything acute. On today's evaluation of 11/12/2021 the patient is quite weak. She is unable to cooperate with the physical therapy and she is unable to stand up. CAT scan of the brain was negative. An MRI of the brain is also in progress. Meanwhile, the patient's cardiac rhythm is sinus. The patient is currently on anticoagulation with Eliquis. The patient is also on a combination of medications including flecainide 150 mg by mouth twice a day and metoprolol 25 mg by mouth 3 times a day and this has maintain a normal sinus rhythm. The patient was not psychotic 16.6 with a hemoglobin of 10.7 and a platelet count of 291. BUN is a 48 with a creatinine of 1.1. Insulin level is at 137. Potassium level needs to be replaced. It is currently at 3.4. The patient is known to have chronic metabolic alkalosis. The coagulation profile has been within normal limits. Over that he doesn't think is been negative and influenza screen was also negative. Some increased interstitial markings with small bilateral pleural effusion, probably related to underlying CHF. Currently the patient is on 4 L O2 nasal cannula. On 11/13/2021, the patient is essentially unchanged. She is still feeling weak and debilitated. She remains hemodynamically stable. No syncope. No cardiac arrhythmias of been noted. MRI of the brain was also done that showed severe bilateral mastoiditis in [id number] chronic cervicitis. The patient has degenerative and nonspecific white matter changes consistent with chronic ischemia. There was also dilatation of the ventricles which could be related to a component of normal pressure hydrocephalus. The blood work was noted. The patient's serum bicarbonate of 42 which is chronically elevated and sodium level is at 138 with a potassium level of 3.8. Medications are also noted. She remains on November the coagulation with Eliquis. She is taken Lasix 40 mg by mouth twice a day. She is on Symbicort as maintenance and she is completing a prednisone burst taper. Objective - Vital Signs Vital signs: Vital Signs Temp 98 F 11/13/21 12:00 Pulse 56 L 11/13/21 12:00 Resp 16 11/13/21 13:59 BP 109/55 11/13/21 12:00 Pulse Ox 93 L 11/13/21 12:00 FiO2 36 11/10/21 19:33 Intake & Output 11/12/21 11/13/21 11/13/21 18:59 06:59 18:59 Intake Total 120 Output Total 900 Balance -780 Weight 73 kg Intake: Other 120 Output: Urine 900 Stool 0 Other: Voiding Method Bedside Commode Bedside Commode Bedside Commode # Voids 3 1 - Exam No acute distress, oriented 3. No respiratory distress, conversational dyspnea, or use of accessory muscles., Currently on 4 L O2 nasal cannula HEENT examination is grossly unremarkable. Neck supple. Full range of motion. No adenopathy thyromegaly or neck vein distention. Cardiovascular examination reveals regular rhythm rate. S1-S2 normal. No S3 or S4. No discernible murmur noted. Heart rate 56 bpm. Lungs reveal mostly clear breath sounds. Minimal basilar crackles. No wheezes. Minimal rhonchi. Abdomen soft bowel sounds are heard. No masses or tenderness. Extremities are intact. No cyanosis clubbing or edema. Skin is without rash or lesion. Neurologic examination is brief but nonfocal. - Labs CBC & Chem 7: 11/12/21 06:57 11/13/21 08:49 Labs: Abnormal Lab Results - Last 24 Hours (Table) 11/12/21 11/12/21 11/13/21 Range/Units 16:18 20:02 05:55 Chloride (98-107) mmol/L Carbon Dioxide (22-30) mmol/L BUN (7-17) mg/dL Creatinine (0.52-1.04) mg/dL Glucose (74-99) mg/dL POC Glucose (mg/dL) 119 H 171 H 124 H (70-110) mg/dL 11/13/21 11/13/21 Range/Units 08:49 11:49 Chloride 85 L (98-107) mmol/L Carbon Dioxide 42 H* (22-30) mmol/L BUN 54 H (7-17) mg/dL Creatinine 1.19 H (0.52-1.04) mg/dL Glucose 102 H (74-99) mg/dL POC Glucose (mg/dL) 115 H (70-110) mg/dL Assessment and Plan Plan: Profound weakness, under investigation, probably multifactorial, currently stable. MRI of the brain shows chronic changes, ventriculomegaly, possible normal pressure hydrocephalus. Paroxysmal atrial fibrillation, following recent admission for atrial fibrillation/RVR, requiring cardioversion. The patient's cardiac rhythm is sinus for now. Patient is currently on a combination of metoprolol, flecainide and the patient on long-term and coagulation with Eliquis. The echocardiogram showed a preserved LV function. No evidence of any pulmonary hypertension. No evidence of any valvular heart disease. Chronic and slightly worsening shortness of breath, secondary to mild fluid overload. The patient remains on Lasix 40 mg by mouth twice a day. Acute on chronic hypoxemic respiratory failure, currently on 4 L of O2 nasal cannula Acute diastolic CHF. Acute anemia, with suspected chronic GI blood losses. History of severe persistent asthma. Prior history of diverticular perforation, status post colostomy and subsequent reversal. T7, T12 and L2 compression fractures. Chronic low back pain. History of kidney stones. History of osteoporosis. History of splenectomy. Plan: MRI of the brain is noted and the patient had chronic nonspecific white matter changes consistent with remote ischemia. There is also ventricular dilatation, consider normal pressure hydrocephalus Wean FiO2 as tolerated to maintain saturation above 90% Continue metoprolol and flecainide and anticoagulation with Eliquis Home medications were resumed No signs of any infection or sepsis Aggressive physical therapy and rehabilitation Neurologist on the case We'll continue to follow
[2021-11-13 16:17] LABS: Glucose,Whole Blood 194 mg/dL (70-110)
[2021-11-13] MEDS: ACETAMINOPHEN TAB 325 MG TAB PO PRN (18:09)
--- NOTE | 2021-11-13 19:21 | XR ---
EXAMINATION TYPE: XR abdomen 1V DATE OF EXAM: 11/13/2021 7:10 PM INDICATION: Patient age:Female; 71 years old; Reason for study: abdominal pain COMPARISON: 05/27/2018 CT abdomen pelvis 01/05/2021 and 05/22/2018 TECHNIQUE: One radiographic view of the abdomen was obtained. FINDINGS: Right staghorn calculus is seen dating back to at least 2020 measuring up to 2.7 cm. Additi onal 4 mm calculus in the lower pole. Right upper quadrant cholecystectomy clips. There is a nonobstr uctive bowel gas pattern with stool seen within the rectum. IMPRESSION: 1. Nonspecific without obstructive bowel gas pattern. 2. Right renal calculi
[2021-11-13 20:21] LABS: Glucose,Whole Blood 123 mg/dL (70-110)
[2021-11-13] MEDS: MONTELUKAST 10 MG TAB PO SCH (22:06)
[2021-11-14] MEDS: guaiFENesin-DM 100-10MG/5ML 10 ML CUP PO SCH ×5 (00:22→23:23)
[2021-11-14] MEDS: IPRATROPIUM-ALBUTEROL 3 ML NEB INHALATION PRN (03:46)
--- NOTE | 2021-11-14 05:03 | P.PN ---
Subjective Progress Note Date: 11/13/21 Acute on chronic hypoxic respiratory failure Acute exacerbation diastolic CHF Acute anemia likely chronic GI blood loss Acute exacerbation COPD/asthma 71-year-old female who was recently discharged from this hospital, on November 07. She was in the hospital, on her last visit, because of atrial fibrillation with rapid ventricular response. She underwent cardioversion, and reverted back to normal sinus rhythm. She was discharged on November 07, and apparently was reevaluated on November 08 in the emergency room. The reason for coming back into the hospital, was because of profound weakness. The patient states that when she got home, she could barely pull herself out of bed. She feels like she probably needs either a longterm or rehabilitation. She denies shortness of breath, more so than when she was here last. She does have a history of underlying COPD/asthma. Other medical problems include atrial fibrillation, heart failure, gastroesophageal reflux disease, diverticular perforation with colostomy and reversal, bowel obstruction, osteoporosis, kidney stones, and compression fracture. Laboratory data includes a white count 13.7, hemoglobin 9.5, hematocrit 33.8, and a platelet count of 371,000. A blood gas shows a pO2 of 88, pCO2 73, and a pH is 7.46. Sodium 138, potassium 3.4, chlorides 85, CO2 50, BUN 31, and creatinine 0.85. N-terminal proBNP was 801. Troponin was less than 0.012. Chest x-ray was consistent with mild fluid overload. 11/10/2021 Patient is seen and evaluated resting comfortably in bed; denies any specific complaints Currently, she is on 4 L. She's not receiving any IV fluids. White count 21.1, hemoglobin 9, hematocrit 30.4, and platelet count 313,000. Sodium 135, potassium 2.8, chlorides 81, CO2 56, BUN 45, and creatinine 1.04. Labs, x-rays, and medications are reviewed. Saturations are excellent. She's being evaluated for possible placement in a rehab facility or longterm. She comes in with profound weakness. On her last admission, she was cardioverted, out of atrial fibrillation into normal sinus rhythm. She remains in normal sinus rhythm. Prognosis is guarded. 11/11/2021 Patient is seen and evaluated in room at bedside and discussed with nursing staff; reports of patient coughing and being over after meals patient has been made nothing by mouth; patient had episode of tremors and questionable unresponsiveness Vital signs are reviewed with temperature of 98.2, pulse 56, decision 18 and blood pressure 111/65 Today's labs include a white count of 17.1, hemoglobin 9.3, hematocrit 32.4, and a platelet count of 298,000. Sodium 136, potassium 3.4, chlorides 84, CO2 52, BUN 51, and creatinine 1.05. Brain CAT scan was negative for anything acute. Patient has been evaluated by urology for episodes of unresponsiveness. She is ordered; hold off on antiepileptic therapy to EEG results are available; MRI of the brain is recommended with and without contrast; order vitamin B12 and folic acid 11/12/2021 Patient is seen and evaluated in room at bedside; remains quite weak. CAT scan of the brain was negative. An MRI of the brain is also in progress. Meanwhile, the patient's cardiac rhythm is sinus. The patient is currently on anticoagulation with Eliquis. The patient is also on a combination of medicatio ns including flecainide 150 mg by mouth twice a day and metoprolol 25 mg by mouth 3 times a day and this has maintain a normal sinus rhythm. Blood work reveals 16.6 with a hemoglobin of 10.7 and a platelet count of 291. BUN is a 48 with a creatinine of 1.1. Insulin level is at 137. Potassium level needs to be replaced. It is currently at 3.4. The patient is known to have chronic metabolic alkalosis. The coagulation profile has been within normal limits. Over that he doesn't think is been negative and influenza screen was also negative. Some increased interstitial markings with small bilateral pleural effusion, probably related to underlying CHF. Currently the patient is on 4 L O2 nasal cannula. Patient to be transferred to skilled rehab once clinically stable 11/13/2021 Patient is seen and evaluated this morning with cardiology and pulmonary following and has been transitioned to oral lasix and oral prednisone and continues on duoneb treatments and inhalers and will continue. Patient is on eliquis as well. Patient chronically wears 4L via NC and denies worsening shortness of breath. Patient is reporting some lower left and right quadrant discomfort on palpation and reports to feeling somewhat constipated and will give an enema/suppository. Encouraged increased activity as tolerated and will resume miralax. Social work following as patient is now agreeable to rehab. Review of systems: Constitutional: No reports of fatigue, fever, or chills Cardiovascular: No reports of chest pain or palpitations Respiratory: reports of shortness of breath that is no worse GI: No reports of nausea, vomiting, or diarrhea : No reports of dysuria or retention Neurovascular: reports of generalized weakness All medications have been reviewed PHYSICAL EXAMINATION: GENERAL: The patient is alert and oriented x3, not in any acute distress. Well developed, well nourished. HEENT: Pupils are round and equally reacting to light. EOMI. No scleral icterus. No conjunctival pallor. Normocephalic, atraumatic. No pharyngeal erythema. No thyromegaly. CARDIOVASCULAR: S1 and S2 muffled PULMONARY: diminished breath sounds bilaterally with some scattered rhonchi noted ABDOMEN: Soft, nontender, nondistended, normoactive bowel sounds. No palpable organomegaly. MUSCULOSKELETAL: No joint swelling or deformity. EXTREMITIES: No cyanosis, clubbing, or pedal edema. NEUROLOGICAL: Gross neurological examination did not reveal any focal deficits. diffusely weak SKIN: No rashes. Assessment: -Acute on chronic hypoxic respiratory failure -Acute exacerbation diastolic CHF -Acute anemia likely related to chronic GI blood loss -Acute exacerbation COPD/asthma -Chronic back pain related to compression fractures T7, T12 and L2 -History of osteoporosis -No code Plan: Patient is currently on O2 at 4 L per nasal cannula; remains on oral Lasix 40 mg every 12 hours; Recommend to continue low-salt and fluid restricted diet cardiology recommending to continue Eliquis, Cardizem, flecainide, metoprolol tartrate Pulmonary following and has been switched to oral prednisone with plans for a quick taper, continue duo nebs PT/OT following for evaluation for possible placement to rehab, and recommend [facility] and social work following and insurance auth is pending Patient with some feeling of constipation and will give suppository/enema and resumed miralax Prognosis is guarded Possible discharge in 24-48 hours. The impression and plan of care has been dictated by Lisa Knox, Nurse Practitioner as directed. Dr. Guerita MD I have performed a history and examination and MDM of this patient, discussed the same with the dictator, and agree with the dictator's assessment and plan as written ,documented as a scribe. Based on total visit time, I have performed more than 50% of the visit. Objective - Vital Signs Vital signs: Vital Signs Temp 98 F 11/13/21 08:35 Pulse 54 L 11/13/21 08:35 Resp 18 11/13/21 08:35 BP 103/59 11/13/21 08:35 Pulse Ox 98 11/13/21 08:35 FiO2 36 11/10/21 19:33 Intake & Output 11/12/21 11/13/21 11/13/21 18:59 06:59 18:59 Intake Total 120 Output Total 900 Balance -780 Weight 73 kg Intake: Other 120 Output: Urine 900 Stool 0 Other: Voiding Method Bedside Commode Bedside Commode # Voids 3 - Labs CBC & Chem 7: 11/12/21 06:57 11/13/21 08:49 Labs: Abnormal Lab Results - Last 24 Hours (Table) 11/12/21 11/12/21 11/13/21 Range/Units 16:18 20:02 05:55 POC Glucose (mg/dL) 119 H 171 H 124 H (70-110) mg/dL
[2021-11-14 05:41] LABS: Glucose,Whole Blood 105 mg/dL (70-110)
[2021-11-14] MEDS: INSULIN ASPART (NovoLOG) 100 UNIT/ML VIAL SQ SCH ×4 (05:44→20:37)
[2021-11-14] MEDS: FERROUS SULFATE 325 MG TAB PO SCH ×3 (06:32→16:49)
[2021-11-14] MEDS: PANTOPRAZOLE 40 MG TABLET PO SCH (06:32)
[2021-11-14] MEDS: SYMBICORT 160-4.5 MCG INHALER INHALATION SCH ×2 (08:09→19:53)
[2021-11-14] MEDS: IPRATROPIUM-ALBUTEROL 3 ML NEB INHALATION SCH ×4 (08:09→19:54)
--- NOTE | 2021-11-14 08:41 | P.PN ---
Subjective Progress Note Date: 11/13/21 11/13/2021: Patient was seen for a follow-up. Patient denies any neurological symptoms. Patient's MRI of the brain revealed mastoiditis. On further inquiry, patient states that she gets lightheaded when she gets up. Denies any headache or vertigo. She does have some sinus issues. She does admit to some hearing loss. Denies any tinnitus. Patient states that she did have slight left ear pain, but now went away. 11/12/2021: Patient was initially seen by Dr. David Gallardo. Please refer to his note for details. Patient is a 71-year-old female, who has an episode of questionable unresponsiveness and staring episode as well as tremor. Patient tells me that she is feeling gassy in the stomach. Also constipated and uses stool softener for a long time. She gets weak when she gets up, her legs goes out when she stands up. complains of numbness in the lower legs bilaterally. No symptoms in the upper extremities. Patient states she has chronic back pain. It has been "forever". Denies any neck pain. Objective - Vital Signs Vital signs: Vital Signs Temp 98 F 11/13/21 12:00 Pulse 56 L 11/13/21 12:00 Resp 18 11/13/21 12:00 BP 109/55 11/13/21 12:00 Pulse Ox 93 L 11/13/21 12:00 FiO2 36 11/10/21 19:33 Intake & Output 11/12/21 11/13/21 11/13/21 18:59 06:59 18:59 Intake Total 120 Output Total 900 Balance -780 Weight 73 kg Intake: Other 120 Output: Urine 900 Stool 0 Other: Voiding Method Bedside Commode Bedside Commode Bedside Commode # Voids 3 1 - Exam Patient is an elderly female, very pleasant, in no acute distress. Patient is alert awake oriented to time place and person. She knows it is November 2021 and that she is in [facility] and name of the current president. Speech and language functions are normal. Patient can name and repeat very well. Attention, concentration and fund of knowledge is adequate. On cranial examination, pupils are round and reacting to light, visual vela are full on confrontation, extraocular muscles are intact with no nystagmus. Face is symmetric, tongue protrudes to the midline. Palatal elevation and sensation normal, hearing is normal for routine conversation, but is mild to moderately decreased for finger rubbing bilaterally. Her shoulder shrug normal, facial sensation normal. On muscle strength testing, there is no pronator drift and the strength is normal in arms and legs distally and proximally. hip flexion is 5-bilaterally. Deep tendon reflexes are (right/left) biceps 1/2, brachioradialis 1/2, knee 1/1, ankles 0/0, plantar is downgoing bilaterally. No myoclonic jerks, no asterixis. Sensory to touch is equal with no neglect. Cerebellar function showed no ataxia for [id number] testing. No dysdiadochokinesia. Tone and bulk of muscles normal. Gait not checked. On general examination, there is no carotid bruit or murmur, S1-S2 audible. Abdomen is soft nontender. Chest is clear. Peripheral pulses are present. No edema. patient has multiple areas of ecchymosis, bruises, in her arms and legs. - Labs CBC & Chem 7: 11/12/21 06:57 11/13/21 08:49 Labs: Abnormal Lab Results - Last 24 Hours (Table) 11/12/21 11/12/21 11/13/21 Range/Units 16:18 20:02 05:55 Chloride (98-107) mmol/L Carbon Dioxide (22-30) mmol/L BUN (7-17) mg/dL Creatinine (0.52-1.04) mg/dL Glucose (74-99) mg/dL POC Glucose (mg/dL) 119 H 171 H 124 H (70-110) mg/dL 11/13/21 11/13/21 Range/Units 08:49 11:49 Chloride 85 L (98-107) mmol/L Carbon Dioxide 42 H* (22-30) mmol/L BUN 54 H (7-17) mg/dL Creatinine 1.19 H (0.52-1.04) mg/dL Glucose 102 H (74-99) mg/dL POC Glucose (mg/dL) 115 H (70-110) mg/dL Assessment and Plan Assessment: Tremor and questionable unresponsiveness. Possible syncopal, doubt seizure. Her episodes of tremor could be myoclonus from metabolic derangement/Hyercapnia. Her questionable unresponsiveness: rule out cardiac in etiology with heart failure. MRI of the brain revealed possibility of mastoiditis. Atrial fibrillation post cardioversion and is on eliquis Shortness of breath Acute on chronic respiratory failure ABG she has hypercapnia. Acute diastolic congestive heart failure T7, T12 and L2 compression fracture Chronic lower back pain History of osteoporosis Plan: * EEG 11/13/2021 was mildly abnormal due to presence of excessive low voltage fast frequency beta activity suggestive of medication effect. Intermittent slowing was also seen, suggestive of mild encephalopathy. No definitive epileptiform activity was seen. No indication for antiepileptic medication. * MRI Brain w/ and w/o contrast revealed degenerative and nonspecific white matter changes most typical of remote ischemia. Slightly greater central component of ventricular dilation can occasionally be associated with a component of normal pressure hydrocephalus. Correlate clinically. No diagno stic evidence of acute ischemia or enhancing mass. Severe bilateral mastoiditis with [id number] chronic sinusitis. I personally reviewed MRI of the brain, and do not see any evidence of hydrocephalus. The amount of central dilation is consistent with amount of cortical atrophy. No evidence of NPH. Agree with evidence of abnormal signal in bilateral mastoid. Patient at present denies any ear pain, or vertigo. Suggest patient follow up with ENT specialist regarding abnormalities noted in bilateral mastoid. * 2-D echo revealed EF 50-55%, both atria are enlarged. Mitral annular calcification and aortic valve sclerosis. Mild to moderate MR. * Vitamin B12 >2000, folate >20.0, TSH 0.593. * Neurologically clear.
[2021-11-14] MEDS: MAGNESIUM OXIDE 400 MG TAB PO SCH (09:40)
[2021-11-14] MEDS: DILTIAZEM CD 180 MG CAP.ER.24H PO SCH (09:40)
[2021-11-14] MEDS: FLECAINIDE 50 MG TAB PO SCH ×2 (09:40→20:37)
[2021-11-14] MEDS: predniSONE 10 MG TAB PO SCH (09:40)
[2021-11-14] MEDS: CHOLECALCIFEROL 25 MCG (1000 IU) TABLET PO SCH (09:40)
[2021-11-14] MEDS: APIXABAN 5 MG TAB PO SCH ×2 (09:40→20:37)
[2021-11-14] MEDS: CALCIUM CARB-VIT D 500 MG-5 MCG TAB PO SCH (09:41)
[2021-11-14] MEDS: FOLIC ACID 1 MG TAB PO SCH (09:41)
[2021-11-14] MEDS: FUROSEMIDE 40 MG TAB PO SCH ×2 (09:41→16:49)
[2021-11-14] MEDS: DOCUSATE 100 MG CAP PO SCH ×2 (09:41→20:37)
[2021-11-14] MEDS: polyethylene glycoL 3350 17 GM POWD.PACK PO SCH (09:41)
[2021-11-14] MEDS: METOPROLOL TARTRATE 25 MG TAB PO SCH (09:41)
[2021-11-14] MEDS: FLUTICASONE 50MCG/SPRAY NASAL 16GM EA NOSTRIL SCH (09:41)
[2021-11-14] MEDS: CALCITONIN 200 USP/1 NASAL SPRAY 3.7ML BTL NASAL SCH (09:42)
--- NOTE | 2021-11-14 11:52 | P.PN ---
Subjective Progress Note Date: 11/14/21 HISTORY OF PRESENT ILLNESS: This is a 71-year-old female past medical history of paroxysmal atrial fibrillation on Eliquis, asthma requiring home oxygen, congestive heart failure, chronic kidney disease. She follows in the office with Dr. Tinajero. We have seen the patient in consultation for congestive heart failure. Patient presents emergency department with complaints of generalized weakness, shortness of breath. Patient was recently discharged from the hospital on 12/04/2021. She states when she went home she felt that she cannot take care of herself, she increased generalized weakness, and increased shortness of breath. She denies any chest pain, leg numbness, dizziness, palpitations, syncope or near syncope. She recently was in the hospital with asthma exacerbation and A fib with RVR from 10/28/2021-11/07/2021. We attempted to control patient's heart rates and were unsuccessful. Patient underwent Cardioversion with Dr. Tinajero on 11/05/2021 Patient required second attempt with 200J to convert to sinus mechanism. She also was managed by pulmonary for asthma exacerbation. She maintained sinus mechanism. She was stabilized and discharged home on 11/07. With a follow up appointment with Dr. Tinajero on 11/13. DIAGNOSTICS * EKG reveals sinus bradycardia, heart rate 54, nonspecific T-wave abnormalities * 10/29/2021 Echocardiogram revealed an EF of 5055 %, both atria are enlarged. Mild to moderate mitral regurgitation * Telemetry tracings indicate sinus mechanism, heart rate 5560s * Chest xray persistent cardiomegaly, more prominent small bilateral pleural effusions. * Laboratory reviewed, VBG 13.7, hemoglobin 9.5, platelets 371, d-dimer negative, sodium 138, potassium 3.4, BUN 31, serum cancer 0.8, proBNP 801, troponin negative * Current home cardiac medications include Lasix 20 mg twice a day, Eliquis 5 mg twice a day, metoprolol titrate 25 mg 3 times a day, Cardizem 180 mg daily, flecainide 150 mg twice a day 11/10/2021 She was seen this morning. She stated that she is feeling better internal shortness of breath. The lower extremities edema has improved somewhat. She reports no pain in the chest. No dizziness or lightheadedness beach she continues to maintain normal sinus mechanism was sinus bradycardia which is asymptomatic pH she continues to be on oral anticoagulation. The creatinine is a slightly worse. I'm going to decrease the dose of Lasix IV and continue monitor the patient for the next 24 hours clinically as well as monitor the kidney function and electrolytes. 11/11/2021 The patient was seen this morning beach she stated that she is feeling somewhat better. The shortness of breath has improved. She continues to have very mild bilateral lower extremities edema. Also on examination she continues to have diminished breathing sounds bilaterally with bilateral rhonchi. Her urine output has been marginal. I'm going to increase the dose of Lasix IV from 20 mg twice a day to 40 mg twice a day, continue monitor the kidney function and electrolytes, and continue monitor the patient for additional 24-hour 11/12/2021 Patient examined this morning at the bedside. Patient denies chest pain or pressure. She denies shortness of breath. She remains on IV Lasix. Vital signs are stable. BUN 48. Creatinine 1.13. Telemetry reveals sinus bradycardia. Echocardiogram completed in October 2021 revealed ejection fraction 50-55%. 11/13/2021 Patient examined this morning. Patient denies chest pain or pressure bruits she denies shortness of breath. She was transitioned to oral Lasix yesterday. BUN 54. Creatinine 1.19. Patient complains of significant constipation and mild abdominal pain this morning. Patient states she takes MiraLAX at home which she reports she has not been receiving. 11/14/2021 Patient examined this morning at the bedside. Patient denies chest pain or pressure. She denies shortness of breath. She reports improvement in her abdominal pain and states she had a bowel movement last night. Patient does report dizziness upon ambulation. Patient's heart rate is currently in the 50s. Systolic blood pressure in the 90s. PHYSICAL EXAM: VITAL SIGNS: Reviewed. GENERAL: Well-developed in no acute distress. NECK: Supple. No JVD or thyromegaly LUNGS: Respirations even and unlabored. Lungs essentially clear to auscultation bilaterally. HEART: Regular rate and rhythm. S1 and S2 heard. EXTREMITIES: Normal range of motion. No clubbing or cyanosis. Peripheral pulses intact. Trace lower extremity edema ASSESSMENT: Shortness of breath Acute on chronic heart failure with preserved ejection fraction Paroxysmal atrial fibrillation, currently maintaining sinus mechanism Acute COPD exacerbation Chronic kidney disease Asthma, on home oxygen PLAN: Continue current cardiac medications Discontinue metoprolol Continue to monitor telemetry and blood pressure Further recommendations pending patient's course Patient to follow-up post discharge with Dr. Tinajero Nurse practitioner note has been reviewed by physician. Signing provider agrees with the documented findings, assessment, and plan of care. Objective - Vital Signs Vital signs: Vital Signs Temp 97.8 F 11/14/21 09:40 Pulse 50 L 11/14/21 09:40 Resp 16 11/14/21 09:40 BP 94/57 11/14/21 09:40 Pulse Ox 96 11/14/21 09:40 FiO2 36 11/10/21 19:33 Intake & Output 11/13/21 11/14/21 11/14/21 18:59 06:59 18:59 Intake Total 480 0 Output Total 700 Balance 480 -700 0 Weight 71.5 kg Intake: Oral 480 0 Output: Urine 700 Other: Voiding Method Bedside Commode External Catheter External Catheter # Voids 1 - Labs CBC & Chem 7: 11/12/21 06:57 11/13/21 08:49 Labs: Abnormal Lab Results - Last 24 Hours (Table) 11/13/21 11/13/21 11/13/21 Range/Units 11:49 16:16 20:20 POC Glucose (mg/dL) 115 H 194 H 123 H (70-110) mg/dL
[2021-11-14 12:04] LABS: Glucose,Whole Blood 126 mg/dL (70-110)
[2021-11-14] MEDS: VITAMIN E (DL,TOCOPHERYL ACET) 400 UNIT (180 MG) CAP PO SCH (12:51)
--- NOTE | 2021-11-14 14:27 | P.PN ---
Subjective Progress Note Date: 11/14/21 71-year-old female who was recently discharged from this hospital, on November 07. She was in the hospital, on her last visit, because of atrial fibrillation with rapid ventricular response. She underwent cardioversion, and reverted back to normal sinus rhythm. She was discharged on November 07, and apparently was reevaluated on November 08 in the emergency room. The reason for coming back into the hospital, was because of profound weakness. The patient states that when she got home, she could barely pull herself out of bed. She feels like she probably needs either a snf or rehabilitation. She denies shortness of breath, more so than when she was here last. She does have a history of unde rlying COPD/asthma. Other medical problems include atrial fibrillation, heart failure, gastroesophageal reflux disease, diverticular perforation with colostomy and reversal, bowel obstruction, osteoporosis, kidney stones, and compression fracture. Laboratory data includes a white count 13.7, hemoglobin 9.5, hematocrit 33.8, and a platelet count of 371,000. A blood gas shows a pO2 of 88, pCO2 73, and a pH is 7.46. Sodium 138, potassium 3.4, chlorides 85, CO2 50, BUN 31, and creatinine 0.85. N-terminal proBNP was 801. Troponin was less than 0.012. Chest x-ray was consistent with mild fluid overload. Progress note dated 11/10/2021. 71-year-old female was recently discharged from this hospital, with atrial fibrillation and rapid ventricular response, having been cardioverted. She was readmitted because of weakness, and some mild fluid overload. Currently, she is on 4 L. She's not receiving any IV fluids. White count 21.1, hemoglobin 9, hematocrit 30.4, and platelet count 313,000. Sodium 135, potassium 2.8, chlorides 81, CO2 56, BUN 45, and creatinine 1.04. Progress note dated 11/11/2021. 71-year-old female seen today in room 367. The patient was sleeping, and was very stable, and seemed to be not in any distress. Currently, she is on 4 L nasal cannula. She's not receiving any IV fluids. She is currently being evaluated by the primary service for possible rehabilitation. She came into the hospital for profound weakness. Today's labs include a white count of 17.1, hemoglobin 9.3, hematocrit 32.4, and a platelet count of 298,000. Sodium 136, potassium 3.4, chlorides 84, CO2 52, BUN 51, and creatinine 1.05. Brain CAT scan was negative for anything acute. On today's evaluation of 11/12/2021 the patient is quite weak. She is unable to cooperate with the physical therapy and she is unable to stand up. CAT scan of the brain was negative. An MRI of the brain is also in progress. Meanwhile, the patient's cardiac rhythm is sinus. The patient is currently on anticoagulation with Eliquis. The patient is also on a combination of medications including flecainide 150 mg by mouth twice a day and metoprolol 25 mg by mouth 3 times a day and this has maintain a normal sinus rhythm. The patient was not psychotic 16.6 with a hemoglobin of 10.7 and a platelet count of 291. BUN is a 48 with a creatinine of 1.1. Insulin level is at 137. Potassium level needs to be replaced. It is currently at 3.4. The patient is known to have chronic metabolic alkalosis. The coagulation profile has been within normal limits. Over that he doesn't think is been negative and influenza screen was also negative. Some increased interstitial markings with small bilateral pleural effusion, probably related to underlying CHF. Currently the patient is on 4 L O2 nasal cannula. On 11/13/2021, the patient is essentially unchanged. She is still feeling weak and debilitated. She remains hemodynamically stable. No syncope. No cardiac arrhythmias of been noted. MRI of the brain was also done that showed severe bilateral mastoiditis in [id number] chronic cervicitis. The patient has degenerative and nonspecific white matter changes consistent with chronic ischemia. There was also dilatation of the ventricles which could be related to a component of normal pressure hydrocephalus. The blood work was noted. The patient's serum bicarbonate of 42 which is chronically elevated and sodium level is at 138 with a potassium level of 3.8. Medications are also noted. She remains on November the coagulation with Eliquis. She is taken Lasix 40 mg by mouth twice a day. She is on Symbicort as maintenance and she is completing a prednisone burst taper. 11/14/2021, the patient is feeling well. No new complaints. She is still feeling weak and the patient is being considered for rehabilitation and she is being considered for discharge to a rehab location. No reported respiratory difficulties for now. No reported chest pain. No cough sputum production chest answer wheezing. Hemodynamically stable. 4 L approximately nasal cannula. The patient was seen also by neurology. The patient was declared neurologically clear. MRI of the brain showed some possible mastoiditis. Cardiac workup was also done. I COPD is currently inactive in stable and the blood. The blood gases showed a component of compensated hypercapnia. Objective - Vital Signs Vital signs: Vital Signs Temp 98.3 F 11/14/21 12:50 Pulse 57 L 11/14/21 12:50 Resp 16 11/14/21 12:50 BP 103/62 11/14/21 12:50 Pulse Ox 93 L 11/14/21 12:50 FiO2 36 11/10/21 19:33 Intake & Output 11/13/21 11/14/21 11/14/21 18:59 06:59 18:59 Intake Total 480 0 Output Total 700 200 Balance 480 -700 -200 Weight 71.5 kg Intake: Oral 480 0 Output: Urine 700 200 Other: Voiding Method Bedside Commode External Catheter External Catheter # Voids 1 - Exam No acute distress, oriented 3. No respiratory distress, conversational dyspnea, or use of accessory muscles., Currently on 4 L O2 nasal cannula HEENT examination is grossly unremarkable. Neck supple. Full range of motion. No adenopathy thyromegaly or neck vein distention. Cardiovascular examination reveals regular rhythm rate. S1-S2 normal. No S3 or S4. No discernible murmur noted. Heart rate 56 bpm. Lungs reveal mostly clear breath sounds. Minimal basilar crackles. No wheezes. Minimal rhonchi. Abdomen soft bowel sounds are heard. No masses or tenderness. Extremities are intact. No cyanosis clubbing or edema. Skin is without rash or lesion. Neurologic examination is brief but nonfocal. - Labs CBC & Chem 7: 11/12/21 06:57 11/13/21 08:49 Labs: Abnormal Lab Results - Last 24 Hours (Table) 11/13/21 11/13/21 11/14/21 Range/Units 16:16 20:20 12:02 POC Glucose (mg/dL) 194 H 123 H 126 H (70-110) mg/dL Assessment and Plan Plan: Profound weakness, under investigation, probably multifactorial, currently stable. MRI of the brain shows chronic changes, ventriculomegaly, possible normal pressure hydrocephalus. Currently inactive in stable and the patient is being considered for discharge to rehabilitation location. Paroxysmal atrial fibrillation, following recent admission for atrial fibrillation/RVR, requiring cardioversion. The patient's cardiac rhythm is sinu s for now. Patient is currently on a combination of metoprolol, flecainide and the patient on long-term and coagulation with Eliquis. The echocardiogram showed a preserved LV function. No evidence of any pulmonary hypertension. No evidence of any valvular heart disease. Chronic and slightly worsening shortness of breath, secondary to mild fluid overload. The patient remains on Lasix 40 mg by mouth twice a day. Acute on chronic hypoxemic respiratory failure, currently on 4 L of O2 nasal ca nnula, currently inactive in stable Acute diastolic CHF. Acute anemia, with suspected chronic GI blood losses. History of severe persistent asthma. Prior history of diverticular perforation, status post colostomy and subsequent reversal. T7, T12 and L2 compression fractures. Chronic low back pain. History of kidney stones. History of osteoporosis. History of splenectomy. Plan: Pulmonary status is stable Continue Symbicort Continue DuoNeb treatments around the clock Complete a course of Augmentin Review course of prednisone burst taper She has chronic hypoxic/hypercapnic respiratory failure which is well Sedated for now MRI of the brain is noted and the patient had chronic nonspecific white matter changes consistent with remote ischemia. There is also ventricular dilatation, consider normal pressure hydrocephalus Wean FiO2 as tolerated to maintain saturation above 90% Continue metoprolol and flecainide and anticoagulation with Eliquis Home medications were resumed No signs of any infection or sepsis Aggressive physical therapy and rehabilitation Neurology and cardiology are both on the case and the patient was declared to be neurologically clear Discharg to [facility]
--- NOTE | 2021-11-14 15:11 | P.PN ---
Subjective Progress Note Date: 11/14/21 11/13/2021: Patient was seen for the follow-up. Patient states that she has been feeling nauseous, but no vomiting. The nausea has improved after she received some medication. When she gets up, she gets very dizzy, but no vertigo. Denies any ringing, tinnitus or ear pain. She feels very weak in the legs. Denies any dizziness when she rolls over in the bed. Patient states that she has history of back pain since 2017. She has seen Dr. Salazar in the past and she opted out of surgery. Her baseline back pain is 4/10. If she does any activity, like walks a lot, it goes up to 8/10. After resting for 5-10 minutes, it comes back to 4/10. Telemetry monitoring showing sinus bradycardia, bundle-branch block, some PACs. 11/13/2021: Patient was seen for a follow-up. Patient denies any neurological symptoms. Patient's MRI of the brain revealed mastoiditis. On further inquiry, patient states that she gets lightheaded when she gets up. Denies any headache or vertigo. She does have some sinus issues. She does admit to some hearing loss. Denies any tinnitus. Patient states that she did have slight left ear pain, but now went away. 11/12/2021: Patient was initially seen by Dr. David Gallardo. Please refer to his note for details. Patient is a 71-year-old female, who has an episode of questionable unresponsiveness and staring episode as well as tremor. Patient tells me that she is feeling gassy in the stomach. Also constipated and uses stool softener for a long time. She gets weak when she gets up, her legs goes out when she stands up. complains of numbness in the lower legs bilaterally. No symptoms in the upper extremities. Patient states she has chronic back pain. It has been "forever". Denies any neck pain. Objective - Vital Signs Vital signs: Vital Signs Temp 97.8 F 11/14/21 09:40 Pulse 50 L 11/14/21 09:40 Resp 16 11/14/21 09:40 BP 94/57 11/14/21 09:40 Pulse Ox 96 11/14/21 09:40 FiO2 36 11/10/21 19:33 Intake & Output 11/13/21 11/14/21 11/14/21 18:59 06:59 18:59 Intake Total 480 0 Output Total 700 Balance 480 -700 0 Weight 71.5 kg Intake: Oral 480 0 Output: Urine 700 Other: Voiding Method Bedside Commode External Catheter External Catheter # Voids 1 - Exam Patient is an elderly female, very pleasant, in no acute distress. Patient is alert awake oriented to time place and person. She knows it is November 2021 and that she is in [facility] and name of the current president. Speech and language functions are normal. Patient can name and repeat very well. Attention, concentration and fund of knowledge is adequate. On cranial examination, pupils are round and reacting to light, visual vela are full on confrontation, extraocular muscles are intact with no nystagmus. Face is symmetric, tongue protrudes to the midline. Palatal elevation and sensation normal, hearing is normal for routine conversation, but is mild to moderately decreased for finger rubbing bilaterally. Her shoulder shrug normal, facial sensation normal. On muscle strength testing, there is no pronator drift and the strength is normal in arms and legs distally and proximally, except hip flexion, which is 3/3+. Ankle dorsiflexion is 5/5. Deep tendon reflexes are (right/left) biceps 2/2, brachioradialis 0/1, knee 1/1, ankles 0/0, plantar is downgoing bilaterally. No myoclonic jerks, no asterixis. Sensory to touch is equal with no neglect. Cerebellar function showed no ataxia for [id number] testing. No dysdiadochokinesia. Tone and bulk of muscles normal. Gait not checked. On general examination, there is no carotid bruit or murmur, S1-S2 audible. Abdomen is soft nontender. Chest is clear. Peripheral pulses are present. No edema. patient has multiple areas of ecchymosis, bruises, in her arms and legs. - Labs CBC & Chem 7: 11/12/21 06:57 11/13/21 08:49 Labs: Abnormal Lab Results - Last 24 Hours (Table) 11/13/21 11/13/21 11/14/21 Range/Units 16:16 20:20 12:02 POC Glucose (mg/dL) 194 H 123 H 126 H (70-110) mg/dL Assessment and Plan Assessment: Tremor and questionable unresponsiveness. Possible syncopal, doubt seizure. Her episodes of tremor could be myoclonus from metabolic derangement/Hyercapnia. Her questionable unresponsiveness: rule out cardiac in etiology with heart failure. MRI of the brain revealed possibility of mastoiditis. Atrial fibrillation post cardioversion and is on eliquis Shortness of breath Acute on chronic respiratory failure ABG she has hypercapnia. Acute diastolic congestive heart failure T7, T12 and L2 compression fracture Chronic lower back pain History of osteoporosis Plan: * Patient's leg weakness could be related to her previous compression fractures. Patient states she was diagnosed with compression fractures in 2017. She opted out of surgery. She has previously seen Dr. Salazar. * EEG 11/13/2021 was mildly abnormal due to presence of excessive low voltage fast frequency beta activity suggestive of medication effect. Intermittent slowing was also seen, suggestive of mild encephalopathy. No definitive epileptiform activity was seen. No indication for antiepileptic medication. * MRI Brain w/ and w/o contrast revealed degenerative and nonspecific white matter changes most typical of remote ischemia. Slightly greater central component of ventricular dilation can occasionally be associated with a component of normal pressure hydrocephalus. Correlate clinically. No diagnostic evidence of acute ischemia or enhancing mass. Severe bilateral mastoiditis with [id number] chronic sinusitis. I personally reviewed MRI of the brain, and do not see any evidence of hydrocephalus. The amount of central dilation is consistent with amount of cortical atrophy. No evidence of NPH. Agree with evidence of abnormal signal in bilateral mastoid. Patient at present is symptomatic. She has dizziness on getting up, and feeling nauseous. Suggest ENT or ID consultation for bilateral mastoiditis. * 2-D echo revealed EF 50-55%, both atria are enlarged. Mitral annular calcification and aortic valve sclerosis. Mild to moderate MR. * Vitamin B12 >2000, folate >20.0, TSH 0.593. * Neurologically clear otherwise.
--- NOTE | 2021-11-14 16:26 | P.PN ---
Subjective Progress Note Date: 11/14/21 Acute on chronic hypoxic respiratory failure Acute exacerbation diastolic CHF Acute anemia likely chronic GI blood loss Acute exacerbation COPD/asthma 71-year-old female who was recently discharged from this hospital, on November 07. She was in the hospital, on her last visit, because of atrial fibrillation with rapid ventricular response. She underwent cardioversion, and reverted back to normal sinus rhythm. She was discharged on November 07, and apparently was reevaluated on November 08 in the emergency room. The reason for coming back into the hospital, was because of profound weakness. The patient states that when she got home, she could barely pull herself out of bed. She feels like she probably needs either a usp or rehabilitation. She denies shortness of breath, more so than when she was here last. She does have a history of underlying COPD/asthma. Other medical problems include atrial fibrillation, heart failure, gastroesophageal reflux disease, diverticular perforation with colostomy and reversal, bowel obstruction, osteoporosis, kidney stones, and compression fracture. Laboratory data includes a white count 13.7, hemoglobin 9.5, hematocrit 33.8, and a platelet count of 371,000. A blood gas shows a pO2 of 88, pCO2 73, and a pH is 7.46. Sodium 138, potassium 3.4, chlorides 85, CO2 50, BUN 31, and creatinine 0.85. N-terminal proBNP was 801. Troponin was less than 0.012. Chest x-ray was consistent with mild fluid overload. 11/10/2021 Patient is seen and evaluated resting comfortably in bed; denies any specific complaints Currently, she is on 4 L. She's not receiving any IV fluids. White count 21.1, hemoglobin 9, hematocrit 30.4, and platelet count 313,000. Sodium 135, potassium 2.8, chlorides 81, CO2 56, BUN 45, and creatinine 1.04. Labs, x-rays, and medications are reviewed. Saturations are excellent. She's being evaluated for possible placement in a rehab facility or usp. She comes in with profound weakness. On her last admission, she was cardioverted, out of atrial fibrillation into normal sinus rhythm. She remains in normal sinus rhythm. Prognosis is guarded. 11/11/2021 Patient is seen and evaluated in room at bedside and discussed with nursing staff; reports of patient coughing and being over after meals patient has been made nothing by mouth; patient had episode of tremors and questionable unresponsiveness Vital signs are reviewed with temperature of 98.2, pulse 56, decision 18 and blood pressure 111/65 Today's labs include a white count of 17.1, hemoglobin 9.3, hematocrit 32.4, and a platelet count of 298,000. Sodium 136, potassium 3.4, chlorides 84, CO2 52, BUN 51, and creatinine 1.05. Brain CAT scan was negative for anything acute. Patient has been evaluated by urology for episodes of unresponsiveness. She is ordered; hold off on antiepileptic therapy to EEG results are available; MRI of the brain is recommended with and without contrast; order vitamin B12 and folic acid 11/12/2021 Patient is seen and evaluated in room at bedside; remains quite weak. CAT scan of the brain was negative. An MRI of the brain is also in progress. Meanwhile, the patient's cardiac rhythm is sinus. The patient is currently on anticoagulation with Eliquis. The patient is also on a combination of medicatio ns including flecainide 150 mg by mouth twice a day and metoprolol 25 mg by mouth 3 times a day and this has maintain a normal sinus rhythm. Blood work reveals 16.6 with a hemoglobin of 10.7 and a platelet count of 291. BUN is a 48 with a creatinine of 1.1. Insulin level is at 137. Potassium level needs to be replaced. It is currently at 3.4. The patient is known to have chronic metabolic alkalosis. The coagulation profile has been within normal limits. Over that he doesn't think is been negative and influenza screen was also negative. Some increased interstitial markings with small bilateral pleural effusion, probably related to underlying CHF. Currently the patient is on 4 L O2 nasal cannula. Patient to be transferred to skilled rehab once clinically stable 11/13/2021 Patient is seen and evaluated this morning with cardiology and pulmonary following and has been transitioned to oral lasix and oral prednisone and continues on duoneb treatments and inhalers and will continue. Patient is on eliquis as well. Patient chronically wears 4L via NC and denies worsening shortness of breath. Patient is reporting some lower left and right quadrant discomfort on palpation and reports to feeling somewhat constipated and will give an enema/suppository. Encouraged increased activity as tolerated and will resume miralax. Social work following as patient is now agreeable to rehab. 11/14/2021 Patient seen and evaluated in follow-up today being followed by cardiology, pulmonary, also neurology. Patient underwent brain MRI which is suggestive of some moderate to severe mastoiditis and will have patient started on Augmentin to complete a course and outpatient follow-up with ENT for further review. Patient continues with some dizziness and some nausea and will add Zofran. Encouraged increase activity as tolerated as patient is mostly laying in bed and continues to be extremely weak. Patient is agreeable to rehab and awaiting insurance authorization at this time. Social work is following and awaiting updates on authorization. Patient is afebrile denies chest pain or worsening shortness of breath. Patient is continued on her DuoNeb's and will continue a prednisone taper. Patient has also been transitioned to oral Lasix and will continue on recommend outpatient follow-up labs. Review of systems: Constitutional: No reports of fatigue, fever, or chills Cardiovascular: No reports of chest pain or palpitations Respiratory: reports of shortness of breath that is no worse GI: No reports of nausea, vomiting, or diarrhea : No reports of dysuria or retention Neurovascular: reports of generalized weakness , reports some nausea and dizziness on occasion All medications have been reviewed PHYSICAL EXAMINATION: GENERAL: The patient is alert and oriented x3, not in any acute distress. Well developed, well nourished. HEENT: Pupils are round and equally reacting to light. EOMI. No scleral icterus. No conjunctival pallor. Normocephalic, atraumatic. No pharyngeal erythema. No thyromegaly. CARDIOVASCULAR: S1 and S2 muffled PULMONARY: diminished breath sounds bilaterally with some scattered rhonchi noted ABDOMEN: Soft, nontender, nondistended, normoactive bowel sounds. No palpable organomegaly. MUSCULOSKELETAL: No joint swelling or deformity. EXTREMITIES: No cyanosis, clubbing, or pedal edema. NEUROLOGICAL: Gross neurological examination did not reveal any focal deficits. diffusely weak SKIN: No rashes. Assessment: -Acute on chronic hypoxic respiratory failure -Acute exacerbation diastolic CHF -Acute anemia likely related to chronic GI blood loss -Acute exacerbation COPD/asthma -Chronic back pain related to compression fractures T7, T12 and L2 -History of osteoporosis -No code Plan: Patient is currently on O2 at 4 L per nasal cannula; remains on oral Lasix 40 mg every 12 hours; Recommend to continue low-salt and fluid restricted diet cardiology recommending to continue Eliquis, Cardizem, flecainide, metoprolol tartrate Pulmonary following and has been switched to oral prednisone with plans for a quick taper, continue duo nebs PT/OT following for evaluation for ECF and patient now agreeable, and recommend DEBBIE and social work following and insurance auth is pending Patient to continue with miralax and stool softeners as needed MRI of the brain reviewed showing nonspecific white matter changes most typical of remote ischemia and some slightly greater central component of central dilation can occasionally be associated with a component of normal pressure hydrocephalus with no diagnostic evidence of acute ischemia or enhancing mass and also showed severe bilateral asteroid-itis with mild to moderate chronic sinusitis. Neurology has evaluated the patient recommending possible ENT or ID consultation and will initiate Augmentin to complete a week's course and have the patient follow-up in the outpatient setting with ENT for further testing Prognosis is guarded Possible discharge in 24-48 hours. The impression and plan of care has been dictated by Lisa Knox, Nurse Practitioner as directed. Dr. Angelina MD I have performed a history and examination and MDM of this patient, discussed the same with the dictator, and agree with the dictator's assessment and plan as written ,documented as a scribe. Based on total visit time, I have performed more than 50% of the visit. Objective - Vital Signs Vital signs: Vital Signs Temp 97.6 F 11/14/21 03:08 Pulse 52 L 11/14/21 03:57 Resp 8 L 11/14/21 03:08 BP 92/54 11/14/21 03:08 Pulse Ox 96 11/14/21 08:08 FiO2 36 11/10/21 19:33 Intake & Output 11/13/21 11/14/21 11/14/21 18:59 06:59 18:59 Intake Total 480 0 Output Total 700 Balance 480 -700 0 Weight 71.5 kg Intake: Oral 480 0 Output: Urine 700 Other: Voiding Method Bedside Commode External Catheter # Voids 1 - Labs CBC & Chem 7: 11/12/21 06:57 11/13/21 08:49 Labs: Abnormal Lab Results - Last 24 Hours (Table) 08/09/22 08/09/22 08/09/22 Range/Units 08:49 11:49 16:16 Chloride 85 L (98-107) mmol/L Carbon Dioxide 42 H* (22-30) mmol/L BUN 54 H (7-17) mg/dL Creatinine 1.19 H (0.52-1.04) mg/dL Glucose 102 H (74-99) mg/dL POC Glucose (mg/dL) 115 H 194 H (70-110) mg/dL 11/13/21 Range/Units 20:20 Chloride (98-107) mmol/L Carbon Dioxide (22-30) mmol/L BUN (7-17) mg/dL Creatinine (0.52-1.04) mg/dL Glucose (74-99) mg/dL POC Glucose (mg/dL) 123 H (70-110) mg/dL
[2021-11-14 16:47] LABS: Glucose,Whole Blood 156 mg/dL (70-110)
[2021-11-14] MEDS: AMOXIC-POT CLAV 875-125MG 1 EACH TAB PO SCH ×2 (16:49→20:36)
[2021-11-14 20:04] LABS: Glucose,Whole Blood 123 mg/dL (70-110)
[2021-11-14] MEDS: MONTELUKAST 10 MG TAB PO SCH (20:37)
[2021-11-15] MEDS: guaiFENesin-DM 100-10MG/5ML 10 ML CUP PO SCH ×4 (06:10→23:17)
[2021-11-15] MEDS: FERROUS SULFATE 325 MG TAB PO SCH ×3 (06:10→17:02)
[2021-11-15] MEDS: PANTOPRAZOLE 40 MG TABLET PO SCH (06:10)
[2021-11-15] MEDS: INSULIN ASPART (NovoLOG) 100 UNIT/ML VIAL SQ SCH ×4 (06:28→20:36)
[2021-11-15 06:29] LABS: Glucose,Whole Blood 99 mg/dL (70-110)
[2021-11-15] MEDS: IPRATROPIUM-ALBUTEROL 3 ML NEB INHALATION SCH ×4 (08:33→21:14)
[2021-11-15] MEDS: SYMBICORT 160-4.5 MCG INHALER INHALATION SCH ×2 (08:33→21:14)
[2021-11-15] MEDS: FLECAINIDE 50 MG TAB PO SCH ×2 (08:54→20:36)
[2021-11-15] MEDS: DILTIAZEM CD 180 MG CAP.ER.24H PO SCH (08:54)
[2021-11-15] MEDS: MAGNESIUM OXIDE 400 MG TAB PO SCH (08:54)
[2021-11-15] MEDS: predniSONE 10 MG TAB PO SCH (08:54)
[2021-11-15] MEDS: APIXABAN 5 MG TAB PO SCH ×2 (08:55→20:36)
[2021-11-15] MEDS: VITAMIN E (DL,TOCOPHERYL ACET) 400 UNIT (180 MG) CAP PO SCH (08:55)
[2021-11-15] MEDS: FUROSEMIDE 40 MG TAB PO SCH (08:55)
[2021-11-15] MEDS: polyethylene glycoL 3350 17 GM POWD.PACK PO SCH (08:55)
[2021-11-15] MEDS: AMOXIC-POT CLAV 875-125MG 1 EACH TAB PO SCH ×2 (08:55→20:36)
[2021-11-15] MEDS: CALCITONIN 200 USP/1 NASAL SPRAY 3.7ML BTL NASAL SCH (08:55)
[2021-11-15] MEDS: CALCIUM CARB-VIT D 500 MG-5 MCG TAB PO SCH (08:55)
[2021-11-15] MEDS: FLUTICASONE 50MCG/SPRAY NASAL 16GM EA NOSTRIL SCH (08:56)
[2021-11-15] MEDS: DOCUSATE 100 MG CAP PO SCH ×2 (08:56→20:36)
[2021-11-15] MEDS: CHOLECALCIFEROL 25 MCG (1000 IU) TABLET PO SCH (08:56)
[2021-11-15] MEDS: FOLIC ACID 1 MG TAB PO SCH (08:57)
[2021-11-15 11:43] LABS: Glucose,Whole Blood 110 mg/dL (70-110)
--- NOTE | 2021-11-15 11:45 | P.PN ---
Subjective Progress Note Date: 11/15/21 11/14/2021: Patient was seen for a follow-up. Patient is concerned about some tremors and myoclonic type jerks. Regarding low back issues, please refer to note from yesterday (below) 11/13/2021: Patient was seen for the follow-up. Patient states that she has been feeling nauseous, but no vomiting. The nausea has improved after she received some medication. When she gets up, she gets very dizzy, but no vertigo. Denies any ringing, tinnitus or ear pain. She feels very weak in the legs. Denies any dizziness when she rolls over in the bed. Patient states that she has history of back pain since 2017. She has seen Dr. Salazar in the past and she opted out of surgery. Her baseline back pain is 4/10. If she does any activity, like walks a lot, it goes up to 8/10. After resting for 5-10 minutes, it comes back to 4/10. Telemetry monitoring showing sinus bradycardia, bundle-branch block, some PACs. 11/13/2021: Patient was seen for a follow-up. Patient denies any neurological symptoms. Patient's MRI of the brain revealed mastoiditis. On further inquiry, patient states that she gets lightheaded when she gets up. Denies any headache or vertigo. She does have some sinus issues. She does admit to some hearing loss. Denies any tinnitus. Patient states that she did have slight left ear pain, but now went away. 11/12/2021: Patient was initially seen by Dr. aDvid Gallardo. Please refer to his note for details. Patient is a 71-year-old female, who has an episode of questionable unresponsiveness and staring episode as well as tremor. Patient tells me that she is feeling gassy in the stomach. Also constipated and uses stool softener for a long time. She gets weak when she gets up, her legs goes out when she stands up. complains of numbness in the lower legs bilaterally. No symptoms in the upper extremities. Patient states she has chronic back pain. It has been "forever". Denies any neck pain. Objective - Vital Signs Vital signs: Vital Signs Temp 97.8 F 11/15/21 08:00 Pulse 62 08/11/22 08:46 Resp 16 11/15/21 08:00 BP 93/55 11/15/21 08:00 Pulse Ox 98 11/15/21 08:37 FiO2 36 11/10/21 19:33 Intake & Output 11/14/21 11/15/21 11/15/21 18:59 06:59 18:59 Intake Total 0 120 Output Total 400 500 Balance -400 -380 Intake: Oral 0 120 Output: Urine 400 500 Other: Voiding Method External Catheter External Catheter External Catheter # Bowel Movements 1 - Exam Patient is an elderly female, very pleasant, in no acute distress. Patient is alert and awake in no distress. Speech and language functions are normal. Attention, concentration and fund of knowledge is adequate. On cranial nerve examination, pupils are round and reacting to light, visual vela are full on confrontation, extraocular muscles are intact with no nystagmus. Face is symmetric, tongue protrudes to the midline. Palatal elevati on and sensation normal, hearing is normal for routine conversation, but is mild to moderately decreased for finger rubbing bilaterally. Her shoulder shrug normal, facial sensation normal. On muscle strength testing, there is no pronator drift and the strength is normal in arms and legs distally and proximally, except hip flexion, which is 3/3+. Ankle dorsiflexion is 5/5. Patient has very mild fine tremors of outstretched hands, left > right. I did not notice any asterixis or myoclonic jerks. Deep tendon reflexes are (right/left) biceps 2/2, brachioradialis 0/1, knee 1/1, ankles 0/0, plantar is downgoing bilaterally. No myoclonic jerks, no asterixis. Sensory to touch is equal with no neglect. Cerebellar function showed no ataxia for tauyfc-gl-ityt testing. No dysdiadochokinesia. Tone and bulk of muscles normal. Gait not checked. On general examination, there is no carotid bruit or murmur, S1-S2 audible. Abdomen is soft nontender. Chest is clear. Peripheral pulses are present. No edema. patient has multiple areas of ecchymosis, bruises, in her arms and legs. - Labs CBC & Chem 7: 11/12/21 06:57 11/13/21 08:49 Labs: Abnormal Lab Results - Last 24 Hours (Table) 11/14/21 11/14/2111/14/22 Range/Units 12:02 16:46 20:02 POC Glucose (mg/dL) 126 H 156 H 123 H (70-110) mg/dL Assessment and Plan Assessment: Fine tremors of outstretched hands, likely due to corticosteroids. Myoclonic jerks now resolved. These were likely related to metabolic dysfunction. Possible syncopal, doubt seizure. Rule out cardiac in etiology with heart failu re. MRI of the brain revealed possibility of mastoiditis. Patient started on Augmentin. Atrial fibrillation post cardioversion and is on eliquis Shortness of breath Acute on chronic respiratory failure ABG she has hypercapnia. Acute diastolic congestive heart failure T7, T12 and L2 compression fracture, patient declined surgery. Chronic lower back pain History of osteoporosis Plan: * Patient's leg weakness could be related to her previous compression fractures. Patient states she was diagnosed with compression fractures in 2017. She opted out of surgery. She has previously seen Dr. Salazar. * Patient's mild fine tremors of outstretched hands are likely from steroids. Patient is on prednisone 30 g daily and also some indication of steroids. Hopefully these tremors will improve once she is weaned off steroids. No myoclonic jerks noted. * EEG 11/13/2021 was mildly abnormal due to presence of excessive low voltage fast frequency beta activity suggestive of medication effect. Intermittent slowing was also seen, suggestive of mild encephalopathy. No definitive epileptiform activity was seen. No indication for antiepileptic medication. * MRI Brain w/ and w/o contrast revealed degenerative and nonspecific white matter changes most typical of remote ischemia. Slightly greater central component of ventricular dilation can occasionally be associated with a component of normal pressure hydrocephalus. Correlate clinically. No diagnostic evidence of acute ischemia or enhancing mass. Severe bilateral mastoiditis with [id number] chronic sinusitis. I personally reviewed MRI of the brain, and do not see any evidence of hydrocephalus. The amount of central dilation is consistent with amount of cortical atrophy. No evidence of NPH. Agree with evidence of abnormal signal in bilateral mastoid. Patient at present is symptomatic. She has dizziness on getting up, and feeling nauseous. Patient started on Augmentin. * 2-D echo revealed EF 50-55%, both atria are enlarged. Mitral annular quinn cification and aortic valve sclerosis. Mild to moderate MR. * Vitamin B12 >2000, folate >20.0, TSH 0.593. * Neurologically clear for discharge.
--- NOTE | 2021-11-15 12:14 | P.PN ---
Subjective Progress Note Date: 11/15/21 HISTORY OF PRESENT ILLNESS: This is a 71-year-old female past medical history of paroxysmal atrial fibrillation on Eliquis, asthma requiring home oxygen, congestive heart failure, chronic kidney disease. She follows in the office with Dr. Tinajero. We have seen the patient in consultation for congestive heart failure. Patient presents emergency department with complaints of generalized weakness, shortness of breath. Patient was recently discharged from the hospital on 12/04/2021. She states when she went home she felt that she cannot take care of herself, she increased generalized weakness, and increased shortness of breath. She denies any chest pain, leg numbness, dizziness, palpitations, syncope or near syncope. She recently was in the hospital with asthma exacerbation and A fib with RVR from 10/28/2021-11/07/2021. We attempted to control patient's heart rates and were unsuccessful. Patient underwent Cardioversion with Dr. Tinajero on 11/05/2021 Patient required second attempt with 200J to convert to sinus mechanism. She also was managed by pulmonary for asthma exacerbation. She maintained sinus mechanism. She was stabilized and discharged home on 11/07. With a follow up appointment with Dr. Tinajero on 11/13. DIAGNOSTICS * EKG reveals sinus bradycardia, heart rate 54, nonspecific T-wave abnormalities * 10/29/2021 Echocardiogram revealed an EF of 5055 %, both atria are enlarged. Mild to moderate mitral regurgitation * Telemetry tracings indicate sinus mechanism, heart rate 5560s * Chest xray persistent cardiomegaly, more prominent small bilateral pleural effusions. * Laboratory reviewed, VBG 13.7, hemoglobin 9.5, platelets 371, d-dimer negative, sodium 138, potassium 3.4, BUN 31, serum cancer 0.8, proBNP 801, troponin negative * Current home cardiac medications include Lasix 20 mg twice a day, Eliquis 5 mg twice a day, metoprolol titrate 25 mg 3 times a day, Cardizem 180 mg daily, flecainide 150 mg twice a day 11/10/2021 She was seen this morning. She stated that she is feeling better internal shortness of breath. The lower extremities edema has improved somewhat. She reports no pain in the chest. No dizziness or lightheadedness beach she continues to maintain normal sinus mechanism was sinus bradycardia which is asymptomatic pH she continues to be on oral anticoagulation. The creatinine is a slightly worse. I'm going to decrease the dose of Lasix IV and continue monitor the patient for the next 24 hours clinically as well as monitor the kidney function and electrolytes. 11/11/2021 The patient was seen this morning beach she stated that she is feeling somewhat better. The shortness of breath has improved. She continues to have very mild bilateral lower extremities edema. Also on examination she continues to have diminished breathing sounds bilaterally with bilateral rhonchi. Her urine output has been marginal. I'm going to increase the dose of Lasix IV from 20 mg twice a day to 40 mg twice a day, continue monitor the kidney function and electrolytes, and continue monitor the patient for additional 24-hour 11/12/2021 Patient examined this morning at the bedside. Patient denies chest pain or pressure. She denies shortness of breath. She remains on IV Lasix. Vital signs are stable. BUN 48. Creatinine 1.13. Telemetry reveals sinus bradycardia. Echocardiogram completed in October 2021 revealed ejection fraction 50-55%. 11/13/2021 Patient examined this morning. Patient denies chest pain or pressure bruits she denies shortness of breath. She was transitioned to oral Lasix yesterday. BUN 54. Creatinine 1.19. Patient complains of significant constipation and mild abdominal pain this morning. Patient states she takes MiraLAX at home which she reports she has not been receiving. 11/14/2021 Patient examined this morning at the bedside. Patient denies chest pain or pressure. She denies shortness of breath. She reports improvement in her abdominal pain and states she had a bowel movement last night. Patient does report dizziness upon ambulation. Patient's heart rate is currently in the 50s. Systolic blood pressure in the 90s. 11/15/2021 Patient seen and examined this morning. Patient denies chest pain or pressure. She denies shortness of breath. She reports her constipation has resolved. Patient continues to report dizziness and lightheadedness upon standing. Patient's heart rate is in the 60s. Her blood pressure remains soft with a systolic in the 90s. PHYSICAL EXAM: VITAL SIGNS: Reviewed. GENERAL: Well-developed in no acute distress. NECK: Supple. No JVD or thyromegaly LUNGS: Respirations even and unlabored. Lungs essentially clear to auscultation bilaterally. HEART: Regular rate and rhythm. S1 and S2 heard. EXTREMITIES: Normal range of motion. No clubbing or cyanosis. Peripheral pulses intact. Trace lower extremity edema ASSESSMENT: Shortness of breath Acute on chronic heart failure with preserved ejection fraction Paroxysmal atrial fibrillation, currently maintaining sinus mechanism Acute COPD exacerbation Chronic kidney disease Asthma, on home oxygen PLAN: Continue current cardiac medications Change Lasix to once daily dosing Continue to monitor telemetry and blood pressure Further recommendations pending patient's course Patient to follow-up post discharge with Dr. Tinajero Nurse practitioner note has been reviewed by physician. Signing provider agrees with the documented findings, assessment, and plan of care. Objective - Vital Signs Vital signs: Vital Signs Temp 98 F 11/15/21 11:40 Pulse 70 11/15/21 11:40 Resp 17 11/15/21 11:40 BP 106/68 11/15/21 11:40 Pulse Ox 100 11/15/21 11:40 FiO2 36 11/10/21 19:33 Intake & Output 11/14/21 11/15/21 11/15/21 18:59 06:59 18:59 Intake Total 0 120 Output Total 400 500 100 Balance -400 -380 -100 Intake: Oral 0 120 Output: Urine 400 500 100 Other: Voiding Method External Catheter External Catheter External Catheter # Bowel Movements 1 1 - Labs CBC & Chem 7: 11/12/21 06:57 11/13/21 08:49 Labs: Abnormal Lab Results - Last 24 Hours (Table) 11/14/21 11/14/21 Range/Units 16:46 20:02 POC Glucose (mg/dL) 156 H 123 H (70-110) mg/dL
[2021-11-15 16:42] LABS: Glucose,Whole Blood 267 mg/dL (70-110)
--- NOTE | 2021-11-15 18:55 | P.PN ---
Subjective Progress Note Date: 11/15/21 Acute on chronic hypoxic respiratory failure Acute exacerbation diastolic CHF Acute anemia likely chronic GI blood loss Acute exacerbation COPD/asthma 71-year-old female who was recently discharged from this hospital, on November 07. She was in the hospital, on her last visit, because of atrial fibrillation with rapid ventricular response. She underwent cardioversion, and reverted back to normal sinus rhythm. She was discharged on November 07, and apparently was reevaluated on November 08 in the emergency room. The reason for coming back into the hospital, was because of profound weakness. The patient states that when she got home, she could barely pull herself out of bed. She feels like she probably needs either a long term or rehabilitation. She denies shortness of breath, more so than when she was here last. She does have a history of underlying COPD/asthma. Other medical problems include atrial fibrillation, heart failure, gastroesophageal reflux disease, diverticular perforation with colostomy and reversal, bowel obstruction, osteoporosis, kidney stones, and compression fracture. Laboratory data includes a white count 13.7, hemoglobin 9.5, hematocrit 33.8, and a platelet count of 371,000. A blood gas shows a pO2 of 88, pCO2 73, and a pH is 7.46. Sodium 138, potassium 3.4, chlorides 85, CO2 50, BUN 31, and creatinine 0.85. N-terminal proBNP was 801. Troponin was less than 0.012. Chest x-ray was consistent with mild fluid overload. 11/10/2021 Patient is seen and evaluated resting comfortably in bed; denies any specific complaints Currently, she is on 4 L. She's not receiving any IV fluids. White count 21.1, hemoglobin 9, hematocrit 30.4, and platelet count 313,000. Sodium 135, potassium 2.8, chlorides 81, CO2 56, BUN 45, and creatinine 1.04. Labs, x-rays, and medications are reviewed. Saturations are excellent. She's being evaluated for possible placement in a rehab facility or long term. She comes in with profound weakness. On her last admission, she was cardioverted, out of atrial fibrillation into normal sinus rhythm. She remains in normal sinus rhythm. Prognosis is guarded. 11/11/2021 Patient is seen and evaluated in room at bedside and discussed with nursing staff; reports of patient coughing and being over after meals patient has been made nothing by mouth; patient had episode of tremors and questionable unresponsiveness Vital signs are reviewed with temperature of 98.2, pulse 56, decision 18 and blood pressure 111/65 Today's labs include a white count of 17.1, hemoglobin 9.3, hematocrit 32.4, and a platelet count of 298,000. Sodium 136, potassium 3.4, chlorides 84, CO2 52, BUN 51, and creatinine 1.05. Brain CAT scan was negative for anything acute. Patient has been evaluated by urology for episodes of unresponsiveness. She is ordered; hold off on antiepileptic therapy to EEG results are available; MRI of the brain is recommended with and without contrast; order vitamin B12 and folic acid 11/12/2021 Patient is seen and evaluated in room at bedside; remains quite weak. CAT scan of the brain was negative. An MRI of the brain is also in progress. Meanwhile, the patient's cardiac rhythm is sinus. The patient is currently on anticoagulation with Eliquis. The patient is also on a combination of medicatio ns including flecainide 150 mg by mouth twice a day and metoprolol 25 mg by mouth 3 times a day and this has maintain a normal sinus rhythm. Blood work reveals 16.6 with a hemoglobin of 10.7 and a platelet count of 291. BUN is a 48 with a creatinine of 1.1. Insulin level is at 137. Potassium level needs to be replaced. It is currently at 3.4. The patient is known to have chronic metabolic alkalosis. The coagulation profile has been within normal limits. Over that he doesn't think is been negative and influenza screen was also negative. Some increased interstitial markings with small bilateral pleural effusion, probably related to underlying CHF. Currently the patient is on 4 L O2 nasal cannula. Patient to be transferred to skilled rehab once clinically stable 11/13/2021 Patient is seen and evaluated this morning with cardiology and pulmonary following and has been transitioned to oral lasix and oral prednisone and continues on duoneb treatments and inhalers and will continue. Patient is on eliquis as well. Patient chronically wears 4L via NC and denies worsening shortness of breath. Patient is reporting some lower left and right quadrant discomfort on palpation and reports to feeling somewhat constipated and will give an enema/suppository. Encouraged increased activity as tolerated and will resume miralax. Social work following as patient is now agreeable to rehab. 11/14/2021 Patient seen and evaluated in follow-up today being followed by cardiology, pulmonary, also neurology. Patient underwent brain MRI which is suggestive of some moderate to severe mastoiditis and will have patient started on Augmentin to complete a course and outpatient follow-up with ENT for further review. Patient continues with some dizziness and some nausea and will add Zofran. Encouraged increase activity as tolerated as patient is mostly laying in bed and continues to be extremely weak. Patient is agreeable to rehab and awaiting insurance authorization at this time. Social work is following and awaiting updates on authorization. Patient is afebrile denies chest pain or worsening shortness of breath. Patient is continued on her DuoNeb's and will continue a prednisone taper. Patient has also been transitioned to oral Lasix and will continue on recommend outpatient follow-up labs. 11/15/2021 Patient is seen today and continues to await insurance authorization to go to [facility]. Patient continues with extreme weakness and reports she continues with dizziness and nausea when getting up to work with physical therapy. Patient minimally working with PT. Nursing staff reports she has been getting up with nurses throughout the day. Continued on oral prednisone, augmentin, and oral lasix. Patient denies chest pain or shortness of breath. Patient reports to having bowel movements. Review of systems: Constitutional: No reports of fatigue, fever, or chills Cardiovascular: No reports of chest pain or palpitations Respiratory: reports of shortness of breath that is no worse GI: reports of occasional nausea, vomiting, or diarrhea : No reports of dysuria or retention Neurovascular: reports of generalized weakness , reports some nausea and dizziness on occasion with getting up All medications have been reviewed PHYSICAL EXAMINATION: GENERAL: The patient is alert and oriented x3, not in any acute distress. Well developed, well nourished. HEENT: Pupils are round and equally reacting to light. EOMI. No scleral icterus. No conjunctival pallor. Normocephalic, atraumatic. No pharyngeal erythema. No thyromegaly. CARDIOVASCULAR: S1 and S2 muffled PULMONARY: diminished breath sounds bilaterally with some scattered rhonchi more so on the left with some faint wheezing noted ABDOMEN: Soft, nontender, nondistended, normoactive bowel sounds. No palpable organomegaly. MUSCULOSKELETAL: No joint swelling or deformity. EXTREMITIES: No cyanosis, clubbing, or pedal edema. NEUROLOGICAL: Gross neurological examination did not reveal any focal deficits. diffusely weak SKIN: No rashes. Assessment: -Acute on chronic hypoxic respiratory failure -Acute exacerbation diastolic CHF -Bilateral mastoiditis noted on MRI -Acute anemia likely related to chronic GI blood loss -Acute exacerbation COPD/asthma -Chronic back pain related to compression fractures T7, T12 and L2 -History of osteoporosis -No code Plan: Patient is currently on O2 at 4 L per nasal cannula; remains on oral Lasix 40 mg every 12 hours; Recommend to continue low-salt and fluid restricted diet Encouraged increased activity as tolerated cardiology recommending to continue Eliquis, Cardizem, flecainide, metoprolol tartrate Pulmonary following and is on oral prednisone with plans for a quick taper, continue duo nebs PT/OT following for evaluation for ECF and patient agreeable, and recommend DEBBIE and social work following and insurance auth is pending Patient to continue with miralax and stool softeners as needed MRI was suggestive of mastoiditis and chronic sinusitis and will add Augmentin to complete a week's course and have the patient follow-up in the outpatient setting with ENT for further testing Prognosis is guarded Possible discharge in 24-48 hours once insurance authorization is obtained. The impression and plan of care has been dictated by Lisa Knox, Nurse Practitioner as directed. Dr. Angelina MD I have performed a history and examination and MDM of this patient, discussed the same with the dictator, and agree with the dictator's assessment and plan as written ,documented as a scribe. Based on total visit time, I have performed more than 50% of the visit. Objective - Vital Signs Vital signs: Vital Signs Temp 97.9 F 11/15/21 15:31 Pulse 66 11/15/21 15:31 Resp 17 11/15/21 15:31 BP 103/66 11/15/21 15:31 Pulse Ox 96 11/15/21 15:31 FiO2 36 11/10/21 19:33 Intake & Output 11/14/21 11/15/21 11/15/21 18:59 06:59 18:59 Intake Total 0 120 Output Total 400 500 100 Balance -400 -380 -100 Intake: Oral 0 120 Output: Urine 400 500 100 Other: Voiding Method External Catheter External Catheter External Catheter # Bowel Movements 1 1 - Labs CBC & Chem 7: 11/12/21 06:57 11/13/21 08:49 Labs: Abnormal Lab Results - Last 24 Hours (Table) 11/14/21 11/15/21 Range/Units 20:02 16:39 POC Glucose (mg/dL) 123 H 267 H (70-110) mg/dL
[2021-11-15 20:31] LABS: Glucose,Whole Blood 132 mg/dL (70-110)
[2021-11-15] MEDS: MONTELUKAST 10 MG TAB PO SCH (20:36)
[2021-11-15] MEDS: ONDANSETRON ODT 4 MG TAB PO PRN (21:48)
[2021-11-16] MEDS: ACETAMINOPHEN TAB 325 MG TAB PO PRN (01:12)
[2021-11-16] MEDS: guaiFENesin-DM 100-10MG/5ML 10 ML CUP PO SCH ×3 (05:48→17:19)
[2021-11-16 06:02] LABS: Glucose,Whole Blood 99 mg/dL (70-110)
[2021-11-16] MEDS: INSULIN ASPART (NovoLOG) 100 UNIT/ML VIAL SQ SCH ×4 (06:08→21:04)
[2021-11-16] MEDS: FERROUS SULFATE 325 MG TAB PO SCH ×3 (06:20→17:18)
[2021-11-16] MEDS: PANTOPRAZOLE 40 MG TABLET PO SCH (06:20)
[2021-11-16] MEDS: IPRATROPIUM-ALBUTEROL 3 ML NEB INHALATION SCH ×4 (08:12→19:34)
[2021-11-16] MEDS: SYMBICORT 160-4.5 MCG INHALER INHALATION SCH ×2 (08:12→19:34)
[2021-11-16] MEDS: FLECAINIDE 50 MG TAB PO SCH ×2 (08:48→21:04)
[2021-11-16] MEDS: CALCIUM CARB-VIT D 500 MG-5 MCG TAB PO SCH (08:48)
[2021-11-16] MEDS: AMOXIC-POT CLAV 875-125MG 1 EACH TAB PO SCH ×2 (08:48→21:03)
[2021-11-16] MEDS: MAGNESIUM OXIDE 400 MG TAB PO SCH (08:48)
[2021-11-16] MEDS: FUROSEMIDE 40 MG TAB PO SCH (08:48)
[2021-11-16] MEDS: VITAMIN E (DL,TOCOPHERYL ACET) 400 UNIT (180 MG) CAP PO SCH (08:48)
[2021-11-16] MEDS: CHOLECALCIFEROL 25 MCG (1000 IU) TABLET PO SCH (08:48)
[2021-11-16] MEDS: APIXABAN 5 MG TAB PO SCH ×2 (08:48→21:04)
[2021-11-16] MEDS: DILTIAZEM CD 180 MG CAP.ER.24H PO SCH (08:49)
[2021-11-16] MEDS: FLUTICASONE 50MCG/SPRAY NASAL 16GM EA NOSTRIL SCH (08:49)
[2021-11-16] MEDS: predniSONE 10 MG TAB PO SCH (08:49)
[2021-11-16] MEDS: DOCUSATE 100 MG CAP PO SCH ×2 (08:50→21:04)
[2021-11-16] MEDS: CALCITONIN 200 USP/1 NASAL SPRAY 3.7ML BTL NASAL SCH (08:50)
[2021-11-16] MEDS: polyethylene glycoL 3350 17 GM POWD.PACK PO SCH (08:50)
[2021-11-16] MEDS: FOLIC ACID 1 MG TAB PO SCH (08:50)
[2021-11-16] MEDS: MULTIVITAMINS, THERA 1 EACH TAB PO SCH (11:28)
[2021-11-16 12:03] LABS: Glucose,Whole Blood 221 mg/dL (70-110)
--- NOTE | 2021-11-16 12:55 | P.PN ---
Subjective Progress Note Date: 11/16/21 HISTORY OF PRESENT ILLNESS: This is a 71-year-old female past medical history of paroxysmal atrial fibrillation on Eliquis, asthma requiring home oxygen, congestive heart failure, chronic kidney disease. She follows in the office with Dr. Tinajero. We have seen the patient in consultation for congestive heart failure. Patient presents emergency department with complaints of generalized weakness, shortness of breath. Patient was recently discharged from the hospital on 12/04/2021. She states when she went home she felt that she cannot take care of herself, she increased generalized weakness, and increased shortness of breath. She denies any chest pain, leg numbness, dizziness, palpitations, syncope or near syncope. She recently was in the hospital with asthma exacerbation and A fib with RVR from 10/28/2021-11/07/2021. We attempted to control patient's heart rates and were unsuccessful. Patient underwent Cardioversion with Dr. Tinajero on 11/05/2021 Patient required second attempt with 200J to convert to sinus mechanism. She also was managed by pulmonary for asthma exacerbation. She maintained sinus mechanism. She was stabilized and discharged home on 11/07. With a follow up appointment with Dr. Tinajero on 11/13. DIAGNOSTICS * EKG reveals sinus bradycardia, heart rate 54, nonspecific T-wave abnormalities * 10/29/2021 Echocardiogram revealed an EF of 5055 %, both atria are enlarged. Mild to moderate mitral regurgitation * Telemetry tracings indicate sinus mechanism, heart rate 5560s * Chest xray persistent cardiomegaly, more prominent small bilateral pleural effusions. * Laboratory reviewed, VBG 13.7, hemoglobin 9.5, platelets 371, d-dimer negative, sodium 138, potassium 3.4, BUN 31, serum cancer 0.8, proBNP 801, troponin negative * Current home cardiac medications include Lasix 20 mg twice a day, Eliquis 5 mg twice a day, metoprolol titrate 25 mg 3 times a day, Cardizem 180 mg daily, flecainide 150 mg twice a day 11/10/2021 She was seen this morning. She stated that she is feeling better internal shortness of breath. The lower extremities edema has improved somewhat. She reports no pain in the chest. No dizziness or lightheadedness beach she continues to maintain normal sinus mechanism was sinus bradycardia which is asymptomatic pH she continues to be on oral anticoagulation. The creatinine is a slightly worse. I'm going to decrease the dose of Lasix IV and continue monitor the patient for the next 24 hours clinically as well as monitor the kidney function and electrolytes. 11/11/2021 The patient was seen this morning beach she stated that she is feeling somewhat better. The shortness of breath has improved. She continues to have very mild bilateral lower extremities edema. Also on examination she continues to have diminished breathing sounds bilaterally with bilateral rhonchi. Her urine output has been marginal. I'm going to increase the dose of Lasix IV from 20 mg twice a day to 40 mg twice a day, continue monitor the kidney function and electrolytes, and continue monitor the patient for additional 24-hour 11/12/2021 Patient examined this morning at the bedside. Patient denies chest pain or pressure. She denies shortness of breath. She remains on IV Lasix. Vital signs are stable. BUN 48. Creatinine 1.13. Telemetry reveals sinus bradycardia. Echocardiogram completed in October 2021 revealed ejection fraction 50-55%. 11/13/2021 Patient examined this morning. Patient denies chest pain or pressure bruits she denies shortness of breath. She was transitioned to oral Lasix yesterday. BUN 54. Creatinine 1.19. Patient complains of significant constipation and mild abdominal pain this morning. Patient states she takes MiraLAX at home which she reports she has not been receiving. 11/14/2021 Patient examined this morning at the bedside. Patient denies chest pain or pressure. She denies shortness of breath. She reports improvement in her abdominal pain and states she had a bowel movement last night. Patient does report dizziness upon ambulation. Patient's heart rate is currently in the 50s. Systolic blood pressure in the 90s. 11/15/2021 Patient seen and examined this morning. Patient denies chest pain or pressure. She denies shortness of breath. She reports her constipation has resolved. Patient continues to report dizziness and lightheadedness upon standing. Patient's heart rate is in the 60s. Her blood pressure remains soft with a systolic in the 90s. 11/16/2021 Patient examined this morning at the bedside. Patient denies chest pain or pressure. She denies shortness of breath. She denies abdominal pain. She continues to report dizziness and lightheadedness upon standing. Patient stood up at the side of the bed with nursing and became extremely lightheaded and thought she is going to faint. Her systolic blood pressure at that time was in the 70s. The patient's metoprolol has a 30 been discontinued and her Lasix has been decreased to once daily dosing. PHYSICAL EXAM: VITAL SIGNS: Reviewed. GENERAL: Well-developed in no acute distress. NECK: Supple. No JVD or thyromegaly LUNGS: Respirations even and unlabored. Lungs essentially clear to auscultation bilaterally. HEART: Regular rate and rhythm. S1 and S2 heard. EXTREMITIES: Normal range of motion. No clubbing or cyanosis. Peripheral pulses intact. Trace lower extremity edema ASSESSMENT: Shortness of breath Acute on chronic heart failure with preserved ejection fraction, resolved Orthostatic hypotension Paroxysmal atrial fibrillation, currently maintaining sinus mechanism Acute COPD exacerbation Chronic kidney disease Asthma, on home oxygen PLAN: Patient's metoprolol has been discontinued Patient's Lasix has been decreased to once daily dosing Decrease Cardizem to 120 mg daily Add Midodrine 5mg TID Continue to monitor blood pressure Patient to follow-up post discharge with Dr. Tinajero Nurse practitioner note has been reviewed by physician. Signing provider agrees with the documented findings, assessment, and plan of care. Objective - Vital Signs Vital signs: Vital Signs Temp 97.9 F 11/16/21 08:53 Pulse 82 11/16/21 11:29 Resp 18 11/16/21 11:05 BP 97/52 11/16/21 11:05 Pulse Ox 96 11/16/21 11:05 FiO2 36 11/10/21 19:33 Intake & Output 11/15/21 11/16/21 11/16/21 18:59 06:59 18:59 Intake Total 320 0 Output Total 100 425 200 Balance -100 -105 -200 Intake: Oral 320 0 Output: Urine 100 425 200 Other: Voiding Method External Catheter External Catheter External Catheter # Bowel Movements 1 1 - Labs CBC & Chem 7: 11/12/21 06:57 11/13/21 08:49 Labs: Abnormal Lab Results - Last 24 Hours (Table) 11/15/21 11/15/21 11/16/21 Range/Units 16:39 20:30 12:02 POC Glucose (mg/dL) 267 H 132 H 221 H (70-110) mg/dL
--- NOTE | 2021-11-16 15:44 | P.PN ---
Subjective Progress Note Date: 11/16/21 11/16/2021: Patient was seen for a follow-up. Patient states she is feeling better. Her tremors have improved. She stayed on same dose of steroids prednisone 30 g daily. Telemetry monitoring showing sinus rhythm. Patient stated that she has restless legs, for which she takes Tylenol as needed. Offers no new complaints. 11/15/2021: Patient was seen for a follow-up. Patient is concerned about some tremors and myoclonic type jerks. Regarding low back issues, please refer to note from yesterday (below) 11/14/2021: Patient was seen for the follow-up. Patient states that she has been feeling nauseous, but no vomiting. The nausea has improved after she received some medication. When she gets up, she gets very dizzy, but no vertigo. Denies any ringing, tinnitus or ear pain. She feels very weak in the legs. Denies any dizziness when she rolls over in the bed. Patient states that she has history of back pain since 2017. She has seen Dr. Salazar in the past and she opted out of surgery. Her baseline back pain is 4/10. If she does any activity, like walks a lot, it goes up to 8/10. After resting for 5-10 minutes, it comes back to 4/10. Telemetry monitoring showing sinus bradycardia, bundle-branch block, some PACs. 11/13/2021: Patient was seen for a follow-up. Patient denies any neurological symptoms. Patient's MRI of the brain revealed mastoiditis. On further inquiry, patient states that she gets lightheaded when she gets up. Denies any headache or vertigo. She does have some sinus issues. She does admit to some hearing loss. Denies any tinnitus. Patient states that she did have slight left ear pain, but now went away. 11/12/2021: Patient was initially seen by Dr. David Gallardo. Please refer to his note for details. Patient is a 71-year-old female, who has an episode of questionable unresponsiveness and staring episode as well as tremor. Patient tells me that she is feeling gassy in the stomach. Also constipated and uses stool softener for a long time. She gets weak when she gets up, her legs goes out when she stands up. complains of numbness in the lower legs bilaterally. No symptoms in the upper extremities. Patient states she has chronic back pain. It has been "forever". Denies any neck pain. Objective - Vital Signs Vital signs: Vital Signs Temp 97.9 F 11/16/21 08:53 Pulse 84 11/16/21 08:53 Resp 19 11/16/21 08:53 BP 112/56 11/16/21 08:53 Pulse Ox 95 11/16/21 08:53 FiO2 36 11/10/21 19:33 Intake & Output 11/15/21 11/16/21 11/16/21 18:59 06:59 18:59 Intake Total 320 0 Output Total 100 425 200 Balance -100 -105 -200 Intake: Oral 320 0 Output: Urine 100 425 200 Other: Voiding Method External Catheter External Catheter External Catheter # Bowel Movements 1 1 - Exam Patient is an elderly female, very pleasant, in no acute distress. Patient is alert and awake in no distress. Speech and language functions are normal. Attention, concentration and fund of knowledge is adequate. On cranial nerve examination, pupils are round and reacting to light, visual vela are full on confrontation, extraocular muscles are intact with no nystagmus. Face is symmetric, tongue protrudes to the midline. Palatal elevation and sensation normal, hearing is normal for routine conversation, but is mild to moderately decreased for finger rubbing bilaterally. Her shoulder shrug normal, facial sensation normal. On muscle strength testing, there is no pronator drift and the strength is normal in arms and legs distally and proximally, except hip flexion, which is 3/3+. Ankle dorsiflexion is 5/5. Patient's tremors of outstretched hands have much improved today. There is no asterixis or myoclonic jerks. Deep tendon reflexes are (right/left) biceps 2/2, brachioradialis 0/1, knee 1/1, ankles 0/0, plantar is downgoing bilaterally. No myoclonic jerks, no asterixis. Sensory to touch is equal with no neglect. Cerebellar function showed no ataxia for [id number] testing. No dysdiadochokinesia. Tone and bulk of muscles normal. Gait not checked. On general examination, there is no carotid bruit or murmur, S1-S2 audible. Abdomen is soft nontender. Chest is clear. Peripheral pulses are present. No edema. patient has multiple areas of ecchymosis, bruises, in her arms and legs. - Labs CBC & Chem 7: 11/12/21 06:57 11/13/21 08:49 Labs: Abnormal Lab Results - Last 24 Hours (Table) 11/15/21 11/15/21 Range/Units 16:39 20:30 POC Glucose (mg/dL) 267 H 132 H (70-110) mg/dL Assessment and Plan Assessment: Fine tremors of outstretched hands, likely due to corticosteroids and beta-2 ad renergic agonists. Myoclonic jerks now resolved. These were likely related to metabolic dysfunction. Possible syncopal, doubt seizure. Rule out cardiac in etiology with heart failure. MRI of the brain revealed possibility of mastoiditis. Patient started on Augmentin. Atrial fibrillation post cardioversion and is on eliquis Shortness of breath Acute on chronic respiratory failure ABG she has hypercapnia. Acute diastolic congestive heart failure T7, T12 and L2 compression fracture, patient declined surgery. Chronic lower back pain History of osteoporosis Plan: * Patient's leg weakness could be related to her previous compression fractures. Patient states she was diagnosed with compression fractures in 2017. She opted out of surgery. She has previously seen Dr. Salazar. * Patient's mild fine tremors of outstretched hands are likely from steroids. Patient is on prednisone 30 mg daily and also some inhalational steroids and beta-2 adrenergics. Hopefully these tremors will improve once she is weaned off steroids. No myoclonic jerks noted. Her tremors are much better today, hardly noticeable. * EEG 11/13/2021 was mildly abnormal due to presence of excessive low voltage fast frequency beta activity suggestive of medication effect. Intermittent slowing was also seen, suggestive of mild encephalopathy. No definitive epileptiform activity was seen. No indication for antiepileptic medication. * MRI Brain w/ and w/o contrast revealed degenerative and nonspecific white matter changes most typical of remote ischemia. Slightly greater central component of ventricular dilation can occasionally be associated with a component of normal pressure hydrocephalus. Correlate clinically. No diagnostic evidence of acute ischemia or enhancing mass. Severe bilateral mastoiditis with [id number] chronic sinusitis. I personally reviewed MRI of the brain, and do not see any evidence of hydrocephalus. The amount of central dilation is consistent with amount of cortical atrophy. No evidence of NPH. Agree with evidence of abnormal signal in bilateral mastoid. Patient at present is symptomatic. She has dizziness on getting up, and feeling nauseous. Patient started on Augmentin. * 2-D echo revealed EF 50-55%, both atria are enlarged. Mitral annular calcification and aortic valve sclerosis. Mild to moderate MR. * Vitamin B12 >2000, folate >20.0, TSH 0.593. * Neurologically clear for discharge. Neurology will sign off.
[2021-11-16 16:52] LABS: Glucose,Whole Blood 152 mg/dL (70-110)
[2021-11-16] MEDS: MIDODRINE 5 MG TAB PO SCH (17:18)
[2021-11-16] MEDS: ONDANSETRON 4 MG/2 ML VIAL IVP PRN (18:09)
[2021-11-16] MEDS: MONTELUKAST 10 MG TAB PO SCH (21:04)
[2021-11-17] MEDS: guaiFENesin-DM 100-10MG/5ML 10 ML CUP PO SCH ×5 (00:46→23:31)
--- NOTE | 2021-11-17 00:49 | CONS ---
CONSULTATION REASON FOR CONSULTATION: Severe mastoiditis. HISTORY OF PRESENT ILLNESS: This is a 71-year-old white female, who was admitted approximately 3 weeks ago for shortness of breath and fatigue. She has been hospitalized just prior to this and came back for a recheck. She has CHF and exacerbation of COPD. During admission, she has been noted to be lightheaded. She has had Neurology consult and had CT of the brain as well as MRI, which showed fluid in the mastoids bilaterally. She states that last week, she did have some decreased hearing and pain in the left ear, however, this has all resolved with time and Valsalva. She was on Flonase for the fluid also. She was started on Augmentin in the last couple of days for the "mastoiditis." She has no otalgia or postauricular pain. She has not had difficulty with her ears previously and she feels her hearing is back to baseline levels. PAST MEDICAL HISTORY: Positive for atrial fib, asthma, COPD, CHF, GERD, renal disease. PAST SURGICAL HISTORY: Bowel and colon surgery, appendectomy, cholecystectomy, splenectomy, herniorrhaphy, cataract surgery. SOCIAL HISTORY: Does not smoke. Does not drink alcohol. FAMILY HISTORY: Noncontributory. REVIEW OF SYSTEMS: All pertinent positive and negative responses were documented in the HPI. ALLERGIES: To Lasix, Keflex, and morphine. MEDICATIONS: 1. Albuterol. 2. Symbicort. 3. Singulair. 4. Eliquis. 5. Cartia. 6. Flonase. 7. Multivitamins. PHYSICAL EXAMINATION: GENERAL: Well-developed adult white female, in no acute distress. Resting comfortably in bed. HEENT: Head, normocephalic and atraumatic. Ears show the canals to be clear. Tympanic membranes are unremarkable and mobile. There is no mastoid or tragal tenderness. Nose shows no drainage or obstruction. Mouth and throat shows no abnormal lesions or masses. No erythema in the oropharynx. NECK: Supple without adenopathy or tenderness. ASSESSMENT: 1. Acute and chronic mastoiditis. 2. Eustachian tube dysfunction. PLAN: The patient does not have clinical acute mastoiditis, although she does have evidence of fluid in the mastoids bilaterally on CT and MRI without coalescence or any evidence of abscess. We would have her continue on the Flonase to help eustachian tube dysfunction and the Augmentin was a reasonable empiric choice for a 7-day course unless she develops GI side effects, otherwise. We will have her follow up in our office for recheck with audiogram upon discharge. Her syncope and orthostasis is not likely related to her mastoids. If there are questions or concerns, please feel free to contact me. MANASA / BEATRIZ: [id number] /
--- NOTE | 2021-11-17 04:57 | P.PN ---
Subjective Progress Note Date: 11/16/21 Acute on chronic hypoxic respiratory failure Acute exacerbation diastolic CHF Acute anemia likely chronic GI blood loss Acute exacerbation COPD/asthma 71-year-old female who was recently discharged from this hospital, on November 07. She was in the hospital, on her last visit, because of atrial fibrillation with rapid ventricular response. She underwent cardioversion, and reverted back to normal sinus rhythm. She was discharged on November 07, and apparently was reevaluated on November 08 in the emergency room. The reason for coming back into the hospital, was because of profound weakness. The patient states that when she got home, she could barely pull herself out of bed. She feels like she probably needs either a skilled nursing or rehabilitation. She denies shortness of breath, more so than when she was here last. She does have a history of underlying COPD/asthma. Other medical problems include atrial fibrillation, heart failure, gastroesophageal reflux disease, diverticular perforation with colostomy and reversal, bowel obstruction, osteoporosis, kidney stones, and compression fracture. Laboratory data includes a white count 13.7, hemoglobin 9.5, hematocrit 33.8, and a platelet count of 371,000. A blood gas shows a pO2 of 88, pCO2 73, and a pH is 7.46. Sodium 138, potassium 3.4, chlorides 85, CO2 50, BUN 31, and creatinine 0.85. N-terminal proBNP was 801. Troponin was less than 0.012. Chest x-ray was consistent with mild fluid overload. 11/10/2021 Patient is seen and evaluated resting comfortably in bed; denies any specific complaints Currently, she is on 4 L. She's not receiving any IV fluids. White count 21.1, hemoglobin 9, hematocrit 30.4, and platelet count 313,000. Sodium 135, potassium 2.8, chlorides 81, CO2 56, BUN 45, and creatinine 1.04. Labs, x-rays, and medications are reviewed. Saturations are excellent. She's being evaluated for possible placement in a rehab facility or skilled nursing. She comes in with profound weakness. On her last admission, she was cardioverted, out of atrial fibrillation into normal sinus rhythm. She remains in normal sinus rhythm. Prognosis is guarded. 11/11/2021 Patient is seen and evaluated in room at bedside and discussed with nursing staff; reports of patient coughing and being over after meals patient has been made nothing by mouth; patient had episode of tremors and questionable unresponsiveness Vital signs are reviewed with temperature of 98.2, pulse 56, decision 18 and blood pressure 111/65 Today's labs include a white count of 17.1, hemoglobin 9.3, hematocrit 32.4, and a platelet count of 298,000. Sodium 136, potassium 3.4, chlorides 84, CO2 52, BUN 51, and creatinine 1.05. Brain CAT scan was negative for anything acute. Patient has been evaluated by urology for episodes of unresponsiveness. She is ordered; hold off on antiepileptic therapy to EEG results are available; MRI of the brain is recommended with and without contrast; order vitamin B12 and folic acid 11/12/2021 Patient is seen and evaluated in room at bedside; remains quite weak. CAT scan of the brain was negative. An MRI of the brain is also in progress. Meanwhile, the patient's cardiac rhythm is sinus. The patient is currently on anticoagulation with Eliquis. The patient is also on a combination of medicatio ns including flecainide 150 mg by mouth twice a day and metoprolol 25 mg by mouth 3 times a day and this has maintain a normal sinus rhythm. Blood work reveals 16.6 with a hemoglobin of 10.7 and a platelet count of 291. BUN is a 48 with a creatinine of 1.1. Insulin level is at 137. Potassium level needs to be replaced. It is currently at 3.4. The patient is known to have chronic metabolic alkalosis. The coagulation profile has been within normal limits. Over that he doesn't think is been negative and influenza screen was also negative. Some increased interstitial markings with small bilateral pleural effusion, probably related to underlying CHF. Currently the patient is on 4 L O2 nasal cannula. Patient to be transferred to skilled rehab once clinically stable 11/13/2021 Patient is seen and evaluated this morning with cardiology and pulmonary following and has been transitioned to oral lasix and oral prednisone and continues on duoneb treatments and inhalers and will continue. Patient is on eliquis as well. Patient chronically wears 4L via NC and denies worsening shortness of breath. Patient is reporting some lower left and right quadrant discomfort on palpation and reports to feeling somewhat constipated and will give an enema/suppository. Encouraged increased activity as tolerated and will resume miralax. Social work following as patient is now agreeable to rehab. 11/14/2021 Patient seen and evaluated in follow-up today being followed by cardiology, pulmonary, also neurology. Patient underwent brain MRI which is suggestive of some moderate to severe mastoiditis and will have patient started on Augmentin to complete a course and outpatient follow-up with ENT for further review. Patient continues with some dizziness and some nausea and will add Zofran. Encouraged increase activity as tolerated as patient is mostly laying in bed and continues to be extremely weak. Patient is agreeable to rehab and awaiting insurance authorization at this time. Social work is following and awaiting updates on authorization. Patient is afebrile denies chest pain or worsening shortness of breath. Patient is continued on her DuoNeb's and will continue a prednisone taper. Patient has also been transitioned to oral Lasix and will continue on recommend outpatient follow-up labs. 11/15/2021 Patient is seen today and continues to await insurance authorization to go to [facility]. Patient continues with extreme weakness and reports she continues with dizziness and nausea when getting up to work with physical therapy. Patient minimally working with PT. Nursing staff reports she has been getting up with nurses throughout the day. Continued on oral prednisone, augmentin, and oral lasix. Patient denies chest pain or shortness of breath. Patient reports to having bowel movements. 11/16/2021 Patient is seen this morning and continues to have dizziness and lightheadedness when getting up and feeling faint. Patient per nursing report became hypotensive with standing required laying back down to avoid syncope per patient. Patient systolic blood pressure was in the 70's systolic. Patient has not been getting up much at all this entire hospitalization and has had prolonged hospitalization. Patient is on augmentin and flonase and ENT was consulted for the mastoiditis findings on MRI and appreciate input and recommendations. Cardiology following and has discontinued metoprolol and adding midodrine for the low blood pressures. Strongly encouraged increased activity as tolerated and sitting up in the chair more often and out of the bed. Patient denies chest pain or shortness of breath. Patient was also on lasix bic and will make daily. Recommend am labs and close monitoring. Patient was to go to ECF once stabilized. Review of systems: Constitutional: No reports of fatigue, fever, or chills Cardiovascular: No reports of chest pain or palpitations Respiratory: reports of shortness of breath that is no worse GI: reports of occasional nausea, vomiting, or diarrhea : No reports of dysuria or retention Neurovascular: reports of generalized weakness , reports some nausea and dizziness on occasion with getting up All medications have been reviewed PHYSICAL EXAMINATION: GENERAL: The patient is alert and oriented x3, not in any acute distress. Well developed, well nourished. HEENT: Pupils are round and equally reacting to light. EOMI. No scleral icterus. No conjunctival pallor. Normocephalic, atraumatic. No pharyngeal erythema. No thyromegaly. CARDIOVASCULAR: S1 and S2 muffled PULMONARY: diminished breath sounds bilaterally with some scattered rhonchi more so on the left with some faint wheezing noted ABDOMEN: Soft, nontender, nondistended, normoactive bowel sounds. No palpable organomegaly. MUSCULOSKELETAL: No joint swelling or deformity. EXTREMITIES: No cyanosis, clubbing, or pedal edema. NEUROLOGICAL: Gross neurological examination did not reveal any focal deficits. diffusely weak SKIN: No rashes. Assessment: -Acute on chronic hypoxic respiratory failure -Acute exacerbation diastolic CHF -Bilateral mastoiditis noted on MRI, most likely chronic -Acute anemia likely related to chronic GI blood loss -Acute exacerbation COPD/asthma -Chronic back pain related to compression fractures T7, T12 and L2 -History of osteoporosis -No code Plan: Patient is currently on O2 at 4 L per nasal cannula; remains on oral Lasix 40 mg and transitioned to daily due to low blood pressures Recommend to continue low-salt and fluid restricted diet Encouraged increased activity as tolerated cardiology recommending to continue Eliquis, Cardizem, flecainide, metoprolol tartrate, although titrating down the dose and metoprolol discontinued and started on midodrine for low blood pressures, recomment orthostatics daily Pulmonary following and is on oral prednisone with plans for a quick taper, continue duo nebs PT/OT following for evaluation for ECF and patient agreeable, and recommend DEBBIE and social work following and insurance auth was obtained today Patient to continue with miralax and stool softeners as needed MRI was suggestive of mastoiditis and chronic sinusitis and will continue Augmentin to complete a week's course and have the patient follow-up in the outpatient setting with ENT for evaluation. ENT has evaluated the patient in hospital and recommending to continue with flonase and complete the augmentin, most likely chronic Prognosis is guarded Patient will be going to ECF once stabilized. REcommend repeat labs in the am The impression and plan of care has been dictated as a scribe by Lisa Knox, Nurse Practitioner as directed. Dr. Angelina MD I have performed a history and examination and MDM of this patient, discussed the same with the dictator, and agree with the dictator's assessment and plan as written ,documented as a scribe. Based on total visit time, I have performed more than 50% of the visit. Objective - Vital Signs Vital signs: Vital Signs Temp 97.9 F 11/16/21 08:53 Pulse 84 11/16/21 08:53 Resp 19 11/16/21 08:53 BP 112/56 11/16/21 08:53 Pulse Ox 95 11/16/21 08:53 FiO2 36 11/10/21 19:33 Intake & Output 11/15/21 11/16/21 11/16/21 18:59 06:59 18:59 Intake Total 320 0 Output Total 100 425 200 Balance -100 -105 -200 Intake: Oral 320 0 Output: Urine 100 425 200 Other: Voiding Method External Catheter External Catheter External Catheter # Bowel Movements 1 1 - Labs CBC & Chem 7: 11/12/21 06:57 11/13/21 08:49 Labs: Abnormal Lab Results - Last 24 Hours (Table) 11/15/21 11/15/21 Range/Units 16:39 20:30 POC Glucose (mg/dL) 267 H 132 H (70-110) mg/dL
[2021-11-17] MEDS: MIDODRINE 5 MG TAB PO SCH ×3 (06:41→17:27)
[2021-11-17] MEDS: FERROUS SULFATE 325 MG TAB PO SCH ×3 (06:41→17:27)
[2021-11-17] MEDS: PANTOPRAZOLE 40 MG TABLET PO SCH (06:45)
[2021-11-17] MEDS: ONDANSETRON ODT 4 MG TAB PO PRN (06:45)
[2021-11-17 07:09] LABS: Glucose,Whole Blood 163 mg/dL (70-110)
[2021-11-17] MEDS: IPRATROPIUM-ALBUTEROL 3 ML NEB INHALATION SCH ×4 (07:34→21:09)
[2021-11-17] MEDS: SYMBICORT 160-4.5 MCG INHALER INHALATION SCH ×2 (07:34→21:08)
[2021-11-17] MEDS: VITAMIN E (DL,TOCOPHERYL ACET) 400 UNIT (180 MG) CAP PO SCH (08:03)
[2021-11-17] MEDS: MAGNESIUM OXIDE 400 MG TAB PO SCH (08:03)
[2021-11-17] MEDS: MULTIVITAMINS, THERA 1 EACH TAB PO SCH (08:03)
[2021-11-17] MEDS: CALCIUM CARB-VIT D 500 MG-5 MCG TAB PO SCH (08:03)
[2021-11-17] MEDS: CHOLECALCIFEROL 25 MCG (1000 IU) TABLET PO SCH (08:03)
[2021-11-17] MEDS: FLECAINIDE 50 MG TAB PO SCH ×2 (08:03→20:12)
[2021-11-17] MEDS: FUROSEMIDE 40 MG TAB PO SCH (08:03)
[2021-11-17] MEDS: AMOXIC-POT CLAV 875-125MG 1 EACH TAB PO SCH ×2 (08:03→20:12)
[2021-11-17] MEDS: DILTIAZEM CD 120 MG CAP.ER.24H PO SCH (08:03)
[2021-11-17] MEDS: INSULIN ASPART (NovoLOG) 100 UNIT/ML VIAL SQ SCH ×4 (08:03→20:06)
[2021-11-17] MEDS: APIXABAN 5 MG TAB PO SCH ×2 (08:03→20:12)
[2021-11-17] MEDS: FOLIC ACID 1 MG TAB PO SCH (08:03)
[2021-11-17] MEDS: FLUTICASONE 50MCG/SPRAY NASAL 16GM EA NOSTRIL SCH (08:04)
[2021-11-17] MEDS: DOCUSATE 100 MG CAP PO SCH ×2 (08:05→20:12)
[2021-11-17] MEDS: predniSONE 10 MG TAB PO SCH (08:05)
[2021-11-17] MEDS: CALCITONIN 200 USP/1 NASAL SPRAY 3.7ML BTL NASAL SCH (08:05)
[2021-11-17] MEDS: polyethylene glycoL 3350 17 GM POWD.PACK PO SCH (08:12)
[2021-11-17] MEDS: ONDANSETRON 4 MG/2 ML VIAL IVP PRN (08:20)
[2021-11-17 08:59] LABS: Calcium 8.9 mg/dL (8.4-10.2)
[2021-11-17 09:01] LABS: Anisocytosis Marked; Basophils % (A) 0 %; Eosinophils # (A) 0.3 k/uL (0-0.7); Eosinophils % (A) 2 %; HCT 40.7 % (34.0-46.0); Hypochromasia Marked; Lymphocytes # (A) 1.6 k/uL (1.0-4.8); Lymphocytes % (A) 10 %; MCH 25.2 pg (25.0-35.0); MCHC 29.4 g/dL (31.0-37.0); MCV 85.7 fL (80.0-100.0); Macrocytosis Slight; Mean Platelet Volume 8.8; Microcytosis Slight; Monocytes # (A) 0.8 k/uL (0-1.0); Monocytes % (A) 5 %; Neutrophils # (A) 13.7 k/uL (1.3-7.7); Neutrophils % (A) 83 %; Platelet Count 206 k/uL (150-450); RBC 4.75 m/uL (3.80-5.40); WBC 16.5 k/uL (3.8-10.6)
[2021-11-17 09:06] LABS: RDW 25.5 % (11.5-15.5)
[2021-11-17] MEDS ORDERED: POTASSIUM CHLORIDE ER 20 MEQ TAB.ER PO STA (09:20)
[2021-11-17 09:25] LABS: Magnesium 2.5 mg/dL (1.6-2.3)
[2021-11-17 11:42] LABS: Glucose,Whole Blood 110 mg/dL (70-110)
--- NOTE | 2021-11-17 15:23 | P.PN ---
Subjective Progress Note Date: 11/17/21 PROGRESS NOTE The patient is a 71-year-old female who presented with dyspnea, weakness and back discomfort. Her breathing is better, she is complaining of her back discomfort as well as constipation. She is maintaining sinus mechanism. She denies any dizziness or palpitations. She has no chest discomfort. She remains weak. She had significant orthostatic changes yesterday and was started on midodrine Medications: Cardizem 120 mg daily, flecainide 150 mg twice a day, midodrine 5 mg 3 times a day, Augmentin, folic acid, Lasix 40 mg daily,Eliquis 5 mg twice a day PHYSICAL EXAMINATION: Blood pressure 102/50 heart rate 7 LUNGS: Clear to auscultation HEART: Regular rate and rhythm, S1, S2. No S3. systolic ejection murmur ABDOMEN: Soft, nontender, no organomegaly EXTREMETIES: No edema LAB: BUN 50, creatinine 1.3, potassium 3.0, carbon dioxide 45, hemoglobin 12 IMPRESSION: 1. Congestive heart failure with preserved systolic function improved 2. Paroxysmal atrial fibrillation, maintaining sinus mechanism 3. Worsening renal function with chronic kidney disease 4. Orthostatic hypotension 5. History of bronchial asthma and COPD 6. Chronic back pain PLAN: 1. Decreased diuretics 2. And follow renal functions 3. Increase physical activity 4. Depending on her progress further recommendations will be made Objective - Vital Signs Vital signs: Vital Signs Temp 97.9 F 11/17/21 12:00 Pulse 72 11/17/21 12:00 Resp 17 11/17/21 12:00 BP 97/61 11/17/21 12:00 Pulse Ox 93 L 11/17/21 12:00 FiO2 36 11/10/21 19:33 Intake & Output 11/16/21 11/17/21 11/17/21 18:59 06:59 18:59 Intake Total 180 180 Output Total 1000 400 200 Balance -820 -400 -20 Intake: Oral 180 180 Output: Urine 1000 400 200 Stool 0 Other: Voiding Method External Catheter External Catheter External Catheter - Labs CBC & Chem 7: 11/17/21 08:30 11/17/21 08:30 Labs: Abnormal Lab Results - Last 24 Hours (Table) 11/16/21 11/17/21 11/17/21 Range/Units 16:51 07:08 08:30 WBC (3.8-10.6) k/uL MCHC (31.0-37.0) g/dL RDW (11.5-15.5) % Neutrophils # (1.3-7.7) k/uL Sodium 134 L (137-145) mmol/L Potassium 3.0 L (3.5-5.1) mmol/L Chloride 82 L (98-107) mmol/L Carbon Dioxide 45 H* (22-30) mmol/L BUN 50 H (7-17) mg/dL Creatinine 1.30 H (0.52-1.04) mg/dL Glucose 123 H (74-99) mg/dL POC Glucose (mg/dL) 152 H 163 H (70-110) mg/dL Magnesium 2.5 H (1.6-2.3) mg/dL 11/17/21 Range/Units 08:30 WBC 16.5 H (3.8-10.6) k/uL MCHC 29.4 L (31.0-37.0) g/dL RDW 25.5 H (11.5-15.5) % Neutrophils # 13.7 H (1.3-7.7) k/uL Sodium (137-145) mmol/L Potassium (3.5-5.1) mmol/L Chloride (98-107) mmol/L Carbon Dioxide (22-30) mmol/L BUN (7-17) mg/dL Creatinine (0.52-1.04) mg/dL Glucose (74-99) mg/dL POC Glucose (mg/dL) (70-110) mg/dL Magnesium (1.6-2.3) mg/dL
[2021-11-17 16:36] LABS: Glucose,Whole Blood 173 mg/dL (70-110)
[2021-11-17 19:45] LABS: Glucose,Whole Blood 145 mg/dL (70-110)
[2021-11-17] MEDS: MONTELUKAST 10 MG TAB PO SCH (20:12)
[2021-11-18] MEDS: INSULIN ASPART (NovoLOG) 100 UNIT/ML VIAL SQ SCH ×4 (06:35→21:42)
[2021-11-18 06:43] LABS: Glucose,Whole Blood 101 mg/dL (70-110)
[2021-11-18] MEDS: PANTOPRAZOLE 40 MG TABLET PO SCH (07:08)
[2021-11-18] MEDS: MIDODRINE 5 MG TAB PO SCH ×3 (07:08→16:55)
[2021-11-18] MEDS: FERROUS SULFATE 325 MG TAB PO SCH ×3 (07:08→16:47)
[2021-11-18] MEDS: guaiFENesin-DM 100-10MG/5ML 10 ML CUP PO SCH ×4 (07:22→23:00)
[2021-11-18] MEDS: FLECAINIDE 50 MG TAB PO SCH ×2 (08:05→22:56)
[2021-11-18] MEDS: APIXABAN 5 MG TAB PO SCH ×2 (08:05→22:56)
[2021-11-18] MEDS: predniSONE 10 MG TAB PO SCH (08:05)
[2021-11-18] MEDS: CHOLECALCIFEROL 25 MCG (1000 IU) TABLET PO SCH (08:06)
[2021-11-18] MEDS: MAGNESIUM OXIDE 400 MG TAB PO SCH (08:06)
[2021-11-18] MEDS: AMOXIC-POT CLAV 875-125MG 1 EACH TAB PO SCH ×2 (08:06→22:55)
[2021-11-18] MEDS: FOLIC ACID 1 MG TAB PO SCH (08:06)
[2021-11-18] MEDS: CALCIUM CARB-VIT D 500 MG-5 MCG TAB PO SCH (08:06)
[2021-11-18] MEDS: MULTIVITAMINS, THERA 1 EACH TAB PO SCH (08:06)
[2021-11-18] MEDS: FLUTICASONE 50MCG/SPRAY NASAL 16GM EA NOSTRIL SCH (08:06)
[2021-11-18] MEDS: DOCUSATE 100 MG CAP PO SCH ×2 (08:06→22:56)
[2021-11-18] MEDS: polyethylene glycoL 3350 17 GM POWD.PACK PO SCH (08:06)
[2021-11-18] MEDS: VITAMIN E (DL,TOCOPHERYL ACET) 400 UNIT (180 MG) CAP PO SCH (08:06)
[2021-11-18] MEDS: DILTIAZEM CD 120 MG CAP.ER.24H PO SCH (08:06)
[2021-11-18] MEDS: FUROSEMIDE 20 MG TAB PO SCH (08:06)
[2021-11-18] MEDS: CALCITONIN 200 USP/1 NASAL SPRAY 3.7ML BTL NASAL SCH (08:07)
[2021-11-18] MEDS: SYMBICORT 160-4.5 MCG INHALER INHALATION SCH ×2 (08:52→21:00)
[2021-11-18] MEDS: IPRATROPIUM-ALBUTEROL 3 ML NEB INHALATION SCH ×4 (08:52→21:00)
[2021-11-18 10:38] LABS: Calcium 8.4 mg/dL (8.4-10.2)
[2021-11-18 10:42] LABS: Anisocytosis Marked; Basophils % (A) 0 %; Eosinophils # (A) 0.3 k/uL (0-0.7); Eosinophils % (A) 2 %; HCT 41.1 % (34.0-46.0); HGB 12.1 gm/dL (11.4-16.0); Hypochromasia Marked; Lymphocytes # (A) 0.7 k/uL (1.0-4.8); Lymphocytes % (A) 5 %; MCH 25.3 pg (25.0-35.0); MCHC 29.5 g/dL (31.0-37.0); MCV 85.8 fL (80.0-100.0); Macrocytosis Slight; Mean Platelet Volume 8.4; Microcytosis Slight; Monocytes # (A) 0.5 k/uL (0-1.0); Monocytes % (A) 3 %; Neutrophils # (A) 12.8 k/uL (1.3-7.7); Neutrophils % (A) 89 %; Platelet Count 177 k/uL (150-450); Poikilocytosis Slight; RBC 4.79 m/uL (3.80-5.40); WBC 14.5 k/uL (3.8-10.6)
[2021-11-18 10:44] LABS: Potassium 2.7 mmol/L (3.5-5.1)
[2021-11-18 10:50] LABS: RDW 25.9 % (11.5-15.5)
[2021-11-18] MEDS: POTASSIUM BICARBONATE/CIT AC 20 MEQ TABLET.EFF NG-TUBE SCH ×3 (11:41→18:07)
[2021-11-18 11:42] LABS: Glucose,Whole Blood 141 mg/dL (70-110)
--- NOTE | 2021-11-18 15:26 | P.PN ---
Subjective Progress Note Date: 11/18/21 PROGRESS NOTE The patient is a 71-year-old female who presented with dyspnea, weakness and back discomfort. Her breathing is better, she is complaining of her back discomfort as well as constipation. She is maintaining sinus mechanism. She denies any dizziness or palpitations. She has no chest discomfort. She remains weak. She had significant orthostatic changes yesterday and was started on midodrine November 18: She feels well this morning, she was able to tolerate the sandwich. She continues to have constipation. She is in sinus mechanism. She denies any dizziness, palpitations or syncope. She denies any nausea or vomiting. She continues to have back discomfort. Her blood pressure is under better control. She has no significant bradycardia. Medications: Cardizem 120 mg daily, flecainide 150 mg twice a day, midodrine 5 mg 3 times a day, Augmentin, folic acid, Lasix 40 mg daily,Eliquis 5 mg twice a day PHYSICAL EXAMINATION: Blood pressure 100/60 heart rate 67 LUNGS: Clear to auscultation HEART: Regular rate and rhythm, S1, S2. No S3. systolic ejection murmur ABDOMEN: Soft, nontender, no organomegaly EXTREMETIES: No edema LAB: BUN 35, creatinine 1.03, potassium 2.7, carbon dioxide 40, hemoglobin 12.1 IMPRESSION: 1. Congestive heart failure with preserved systolic function, resolved 2. Paroxysmal atrial fibrillation, maintaining sinus mechanism 3. Worsening renal function with chronic kidney disease, improving 4. Orthostatic hypotension, improving 5. History of bronchial asthma and COPD 6. Chronic back pain PLAN: 1. Continue present therapy 2. Replace potassium 3. Increase physical activity 4. Follow renal functions and adjust diuretics. Objective - Vital Signs Vital signs: Vital Signs Temp 98.1 F 11/18/21 08:30 Pulse 70 11/18/21 12:00 Resp 18 11/18/21 12:00 BP 103/65 11/18/21 12:00 Pulse Ox 96 11/18/21 12:00 FiO2 36 11/10/21 19:33 Intake & Output 11/17/21 11/18/21 11/18/21 18:59 06:59 18:59 Intake Total 180 120 Output Total 441 639 3856 Balance -320 -330 -1000 Intake: Oral 180 120 Output: Urine 833 [id number] 1086 Stool 0 Other: Voiding Method External Catheter External Catheter External Catheter - Labs CBC & Chem 7: 11/18/21 10:09 11/18/21 10:09 Labs: Abnormal Lab Results - Last 24 Hours (Table) 11/17/21 11/17/21 11/18/21 Range/Units 16:35 19:43 10:09 WBC (3.8-10.6) k/uL MCHC (31.0-37.0) g/dL RDW (11.5-15.5) % Neutrophils # (1.3-7.7) k/uL Lymphocytes # (1.0-4.8) k/uL Sodium 133 L (137-145) mmol/L Potassium 2.7 L* (3.5-5.1) mmol/L Chloride 84 L (98-107) mmol/L Carbon Dioxide 40 H (22-30) mmol/L BUN 35 H (7-17) mg/dL Glucose 121 H (74-99) mg/dL POC Glucose (mg/dL) 173 H 145 H (70-110) mg/dL 11/18/21 11/18/21 Range/Units 10:09 11:41 WBC 14.5 H (3.8-10.6) k/uL MCHC 29.5 L (31.0-37.0) g/dL RDW 25.9 H (11.5-15.5) % Neutrophils # 12.8 H (1.3-7.7) k/uL Lymphocytes # 0.7 L (1.0-4.8) k/uL Sodium (137-145) mmol/L Potassium (3.5-5.1) mmol/L Chloride (98-107) mmol/L Carbon Dioxide (22-30) mmol/L BUN (7-17) mg/dL Glucose (74-99) mg/dL POC Glucose (mg/dL) 141 H (70-110) mg/dL
[2021-11-18 16:44] LABS: Glucose,Whole Blood 174 mg/dL (70-110)
[2021-11-18] MEDS: ONDANSETRON 4 MG/2 ML VIAL IVP PRN (16:55)
[2021-11-18 21:01] LABS: Glucose,Whole Blood 147 mg/dL (70-110)
[2021-11-18] MEDS: MONTELUKAST 10 MG TAB PO SCH (22:56)
[2021-11-19] MEDS: ACETAMINOPHEN TAB 325 MG TAB PO PRN (00:53)
[2021-11-19] MEDS: guaiFENesin-DM 100-10MG/5ML 10 ML CUP PO SCH ×3 (06:27→15:51)
[2021-11-19] MEDS: FERROUS SULFATE 325 MG TAB PO SCH ×3 (06:29→15:51)
[2021-11-19] MEDS: INSULIN ASPART (NovoLOG) 100 UNIT/ML VIAL SQ SCH ×4 (06:30→20:50)
[2021-11-19 06:31] LABS: Glucose,Whole Blood 99 mg/dL (70-110)
[2021-11-19] MEDS: MIDODRINE 5 MG TAB PO SCH ×3 (06:31→17:04)
[2021-11-19] MEDS: ONDANSETRON ODT 4 MG TAB PO PRN ×2 (06:31→13:27)
[2021-11-19] MEDS: PANTOPRAZOLE 40 MG TABLET PO SCH (06:31)
[2021-11-19 07:32] LABS: Calcium 8.4 mg/dL (8.4-10.2); Potassium 2.8 mmol/L (3.5-5.1)
[2021-11-19] MEDS ORDERED: Potassium Replacement Protocol 1 EACH MISC MISCELLANE PRN (08:16)
[2021-11-19] MEDS: SYMBICORT 160-4.5 MCG INHALER INHALATION SCH ×2 (08:51→20:39)
[2021-11-19] MEDS: IPRATROPIUM-ALBUTEROL 3 ML NEB INHALATION SCH ×4 (08:51→20:38)
[2021-11-19] MEDS: predniSONE 10 MG TAB PO SCH (09:18)
[2021-11-19] MEDS: MULTIVITAMINS, THERA 1 EACH TAB PO SCH (09:18)
[2021-11-19] MEDS: MAGNESIUM OXIDE 400 MG TAB PO SCH (09:18)
[2021-11-19] MEDS: DOCUSATE 100 MG CAP PO SCH ×2 (09:19→20:50)
[2021-11-19] MEDS: APIXABAN 5 MG TAB PO SCH ×2 (09:19→20:50)
[2021-11-19] MEDS: AMOXIC-POT CLAV 875-125MG 1 EACH TAB PO SCH ×2 (09:19→20:48)
[2021-11-19] MEDS: FUROSEMIDE 20 MG TAB PO SCH (09:19)
[2021-11-19] MEDS: DILTIAZEM CD 120 MG CAP.ER.24H PO SCH (09:19)
[2021-11-19] MEDS: FLECAINIDE 50 MG TAB PO SCH ×2 (09:19→20:50)
[2021-11-19] MEDS: polyethylene glycoL 3350 17 GM POWD.PACK PO SCH (09:19)
[2021-11-19] MEDS: FLUTICASONE 50MCG/SPRAY NASAL 16GM EA NOSTRIL SCH (09:20)
[2021-11-19] MEDS: VITAMIN E (DL,TOCOPHERYL ACET) 400 UNIT (180 MG) CAP PO SCH (09:20)
[2021-11-19] MEDS: CALCITONIN 200 USP/1 NASAL SPRAY 3.7ML BTL NASAL SCH (09:20)
[2021-11-19] MEDS: CALCIUM CARB-VIT D 500 MG-5 MCG TAB PO SCH (09:20)
[2021-11-19] MEDS: POTASSIUM BICARBONATE/CIT AC 20 MEQ TABLET.EFF NG-TUBE SCH ×3 (09:20→10:51)
[2021-11-19] MEDS: CHOLECALCIFEROL 25 MCG (1000 IU) TABLET PO SCH (09:20)
[2021-11-19] MEDS: FOLIC ACID 1 MG TAB PO SCH (09:20)
--- NOTE | 2021-11-19 11:08 | P.PN ---
Subjective PROGRESS NOTE The patient is a 71-year-old female who presented with dyspnea, weakness and back discomfort. Her breathing is better, she is complaining of her back discomfort as well as constipation. She is maintaining sinus mechanism. She denies any dizziness or palpitations. She has no chest discomfort. She remains weak. She had significant orthostatic changes yesterday and was started on midodrine November 18: She feels well this morning, she was able to tolerate the sandwich. She continues to have constipation. She is in sinus mechanism. She denies any dizziness, palpitations or syncope. She denies any nausea or vomiting. She c ontinues to have back discomfort. Her blood pressure is under better control. She has no significant bradycardia. 11/19 Patient seen and examined. Potassium level still low at 2.8. She states conf usion why she feels somewhat better and breathing staples she feels "great". Still very weak and excited about trying rehab today. Does have some constipation. Has not been able to eat or drink much secondary to abnormal feeling with swallowing foods. PHYSICAL EXAMINATION: Vitals reviewed LUNGS: Clear to auscultation HEART: Regular rate and rhythm, S1, S2. No S3. systolic ejection murmur ABDOMEN: Soft, nontender, no organomegaly EXTREMETIES: No edema IMPRESSION: 1. Chronic heart failure with preserved systolic function, resolved 2. Paroxysmal atrial fibrillation, maintaining sinus mechanism 3. Worsening renal function with chronic kidney disease, improving 4. Orthostatic hypotension, improving 5. History of bronchial asthma and COPD 6. Chronic back pain 7. Hypokalemia 8. Hyponatremia PLAN: Appears euvolemic and appears stable from a cardiac standpoint. Continue with flecainide 150 mg twice a day and remainder of current medical regimen. No further recommendations from a cardiology standpoint. Please call with any questions. Objective - Vital Signs Vital signs: Vital Signs Temp 97.3 F L 11/19/21 08:00 Pulse 64 11/19/21 09:01 Resp 18 11/19/21 08:00 BP 104/55 11/19/21 08:00 Pulse Ox 99 11/19/21 08:51 FiO2 36 11/10/21 19:33 Intake & Output 11/18/21 11/19/21 11/19/21 18:59 06:59 18:59 Intake Total 120 Output Total 1000 0 400 Balance -1000 0 -280 Intake: Oral 120 Output: Urine 1000 400 Stool 0 Other: Voiding Method External Catheter External Catheter # Bowel Movements 1 - Labs CBC & Chem 7: 11/18/21 10:09 11/19/21 06:26 Labs: Abnormal Lab Results - Last 24 Hours (Table) 11/18/21 11/18/21 11/18/21 Range/Units 11:41 16:42 21:00 Sodium (137-145) mmol/L Potassium (3.5-5.1) mmol/L Chloride (98-107) mmol/L Carbon Dioxide (22-30) mmol/L BUN (7-17) mg/dL POC Glucose (mg/dL) 141 H 174 H 147 H (70-110) mg/dL 11/19/21 Range/Units 06:26 Sodium 133 L (137-145) mmol/L Potassium 2.8 L (3.5-5.1) mmol/L Chloride 84 L (98-107) mmol/L Carbon Dioxide 42 H* (22-30) mmol/L BUN 30 H (7-17) mg/dL POC Glucose (mg/dL) (70-110) mg/dL
[2021-11-19 11:32] LABS: Glucose,Whole Blood 123 mg/dL (70-110)
--- NOTE | 2021-11-19 13:26 | P.PN ---
Subjective Progress Note Date: 11/19/21 Acute on chronic hypoxic respiratory failure Acute exacerbation diastolic CHF Acute anemia likely chronic GI blood loss Acute exacerbation COPD/asthma 71-year-old female who was recently discharged from this hospital, on November 07. She was in the hospital, on her last visit, because of atrial fibrillation with rapid ventricular response. She underwent cardioversion, and reverted back to normal sinus rhythm. She was discharged on November 07, and apparently was reevaluated on November 08 in the emergency room. The reason for coming back into the hospital, was because of profound weakness. The patient states that when she got home, she could barely pull herself out of bed. She feels like she probably needs either a halfway or rehabilitation. She denies shortness of breath, more so than when she was here last. She does have a history of underlying COPD/asthma. Other medical problems include atrial fibrillation, heart failure, gastroesophageal reflux disease, diverticular perforation with colostomy and reversal, bowel obstruction, osteoporosis, kidney stones, and compression fracture. Laboratory data includes a white count 13.7, hemoglobin 9.5, hematocrit 33.8, and a platelet count of 371,000. A blood gas shows a pO2 of 88, pCO2 73, and a pH is 7.46. Sodium 138, potassium 3.4, chlorides 85, CO2 50, BUN 31, and creatinine 0.85. N-terminal proBNP was 801. Troponin was less than 0.012. Chest x-ray was consistent with mild fluid overload. 11/10/2021 Patient is seen and evaluated resting comfortably in bed; denies any specific complaints Currently, she is on 4 L. She's not receiving any IV fluids. White count 21.1, hemoglobin 9, hematocrit 30.4, and platelet count 313,000. Sodium 135, potassium 2.8, chlorides 81, CO2 56, BUN 45, and creatinine 1.04. Labs, x-rays, and medications are reviewed. Saturations are excellent. She's being evaluated for possible placement in a rehab facility or halfway. She comes in with profound weakness. On her last admission, she was cardioverted, out of atrial fibrillation into normal sinus rhythm. She remains in normal sinus rhythm. Prognosis is guarded. 11/11/2021 Patient is seen and evaluated in room at bedside and discussed with nursing staff; reports of patient coughing and being over after meals patient has been made nothing by mouth; patient had episode of tremors and questionable unresponsiveness Vital signs are reviewed with temperature of 98.2, pulse 56, decision 18 and blood pressure 111/65 Today's labs include a white count of 17.1, hemoglobin 9.3, hematocrit 32.4, and a platelet count of 298,000. Sodium 136, potassium 3.4, chlorides 84, CO2 52, BUN 51, and creatinine 1.05. Brain CAT scan was negative for anything acute. Patient has been evaluated by urology for episodes of unresponsiveness. She is ordered; hold off on antiepileptic therapy to EEG results are available; MRI of the brain is recommended with and without contrast; order vitamin B12 and folic acid 11/12/2021 Patient is seen and evaluated in room at bedside; remains quite weak. CAT scan of the brain was negative. An MRI of the brain is also in progress. Meanwhile, the patient's cardiac rhythm is sinus. The patient is currently on anticoagulation with Eliquis. The patient is also on a combination of medicatio ns including flecainide 150 mg by mouth twice a day and metoprolol 25 mg by mouth 3 times a day and this has maintain a normal sinus rhythm. Blood work reveals 16.6 with a hemoglobin of 10.7 and a platelet count of 291. BUN is a 48 with a creatinine of 1.1. Insulin level is at 137. Potassium level needs to be replaced. It is currently at 3.4. The patient is known to have chronic metabolic alkalosis. The coagulation profile has been within normal limits. Over that he doesn't think is been negative and influenza screen was also negative. Some increased interstitial markings with small bilateral pleural effusion, probably related to underlying CHF. Currently the patient is on 4 L O2 nasal cannula. Patient to be transferred to skilled rehab once clinically stable 11/13/2021 Patient is seen and evaluated this morning with cardiology and pulmonary following and has been transitioned to oral lasix and oral prednisone and continues on duoneb treatments and inhalers and will continue. Patient is on eliquis as well. Patient chronically wears 4L via NC and denies worsening shortness of breath. Patient is reporting some lower left and right quadrant discomfort on palpation and reports to feeling somewhat constipated and will give an enema/suppository. Encouraged increased activity as tolerated and will resume miralax. Social work following as patient is now agreeable to rehab. 11/14/2021 Patient seen and evaluated in follow-up today being followed by cardiology, pulmonary, also neurology. Patient underwent brain MRI which is suggestive of some moderate to severe mastoiditis and will have patient started on Augmentin to complete a course and outpatient follow-up with ENT for further review. Patient continues with some dizziness and some nausea and will add Zofran. Encouraged increase activity as tolerated as patient is mostly laying in bed and continues to be extremely weak. Patient is agreeable to rehab and awaiting insurance authorization at this time. Social work is following and awaiting updates on authorization. Patient is afebrile denies chest pain or worsening shortness of breath. Patient is continued on her DuoNeb's and will continue a prednisone taper. Patient has also been transitioned to oral Lasix and will continue on recommend outpatient follow-up labs. 11/15/2021 Patient is seen today and continues to await insurance authorization to go to [facility]. Patient continues with extreme weakness and reports she continues with dizziness and nausea when getting up to work with physical therapy. Patient minimally working with PT. Nursing staff reports she has been getting up with nurses throughout the day. Continued on oral prednisone, augmentin, and oral lasix. Patient denies chest pain or shortness of breath. Patient reports to having bowel movements. 11/16/2021 Patient is seen this morning and continues to have dizziness and lightheadedness when getting up and feeling faint. Patient per nursing report became hypotensive with standing required laying back down to avoid syncope per patient. Patient systolic blood pressure was in the 70's systolic. Patient has not been getting up much at all this entire hospitalization and has had prolonged hospitalization. Patient is on augmentin and flonase and ENT was consulted for the mastoiditis findings on MRI and appreciate input and recommendations. Cardiology following and has discontinued metoprolol and adding midodrine for the low blood pressures. Strongly encouraged increased activity as tolerated and sitting up in the chair more often and out of the bed. Patient denies chest pain or shortness of breath. Patient was also on lasix bic and will make daily. Recommend am labs and close monitoring. Patient was to go to [facility] once stabilized. 11/19/2021 Patient is seen and evaluated in follow-up today continues to report she has some severe weakness and has not been getting up and working with physical therapy. Per physical therapy patient becomes extremely restless and anxious and extremely dizzy and nauseated when attempting to even sit up. Discussed with the patient about encouraging increased activity in the longer she stays laying in the hospital bed more week and debilitated she is becoming. Will change to physical therapy daily and patient continues to be agreeable to go to rehab. Will need updated physical therapy notes for insurance authorization. Labs this morning reveal a potassium of 2.8 and will replace per protocol. Continue using Zofran as needed for nausea. Patient chronically wears 4 L via nasal cannula and currently 99% oxygen saturation. Cardiology has evaluated the patient and cleared for discharge to continue with current medications. Patient is tolerating Midodrin for her blood pressure and blood pressures have improved. Will await updated PT/OT therapy notes and discussed with social work about discharge planning and also recommend repeat labs in the morning. Encouraged oral intake as patient reports she is not eating much. Review of systems: Constitutional: No reports of fatigue, fever, or chills Cardiovascular: No reports of chest pain or palpitations Respiratory: reports of shortness of breath that is no worse GI: reports of occasional nausea with position changes and getting up and moving around, no reports of vomiting : No reports of dysuria or retention Neurovascular: reports of generalized weakness , reports some nausea and dizziness on occasion with getting up All medications have been reviewed PHYSICAL EXAMINATION: GENERAL: The patient is alert and oriented x3, not in any acute distress. Well developed, well nourished. HEENT: Pupils are round and equally reacting to light. EOMI. No scleral icterus. No conjunctival pallor. Normocephalic, atraumatic. No pharyngeal erythema. No thyromegaly. CARDIOVASCULAR: S1 and S2 muffled PULMONARY: diminished breath sounds bilaterally with some scattered rhonchi more so on the left with some faint wheezing noted ABDOMEN: Soft, nontender, nondistended, normoactive bowel sounds. No palpable organomegaly. MUSCULOSKELETAL: No joint swelling or deformity. EXTREMITIES: No cyanosis, clubbing, or pedal edema. NEUROLOGICAL: Gross neurological examination did not reveal any focal deficits. diffusely weak SKIN: No rashes. Assessment: -Acute on chronic hypoxic respiratory failure -Hypokalemia -Hyponatremia, currently 133 -Acute exacerbation diastolic CHF -Bilateral mastoiditis, mostly chronic -Acute anemia likely related to chronic GI blood loss -Acute exacerbation COPD/asthma -Chronic back pain related to compression fractures T7, T12 and L2 -History of osteoporosis -No code Plan: Patient is currently on O2 at 4 L per nasal cannula which is chronic and also continued on DuoNeb's and a prednisone taper. Patient is currently on 30 mg and will titrate down the 20 mg daily Recommend to continue low-salt and fluid restricted diet, encouraged oral intake Labs reviewed and potassium is low recommending replacement per protocol and rec ommend repeat labs ordered in the a.m. Encouraged increased activity as tolerated cardiology recommending to continue Eliquis, Cardizem, flecainide, and midodrine. Lopressor currently on hold due to low blood pressures Pulmonary following and is on oral prednisone at 30 mg and will titrate down to 20 mg starting tomorrow, continue duo nebs PT/OT following for evaluation for ECF and patient agreeable, and recommend DEBBIE and social work following and insurance auth will need to be obtained and needs updated PT/OT notes. Patient has not been working with them due to increased dizziness and nausea and discussed with the patient at length about working with them and getting up to assess her overall needs as she has been laying in the bed most days all day. Patient to continue with miralax and stool softeners as needed MRI was suggestive of mastoiditis and chronic sinusitis and will continue Augmentin to complete a week's course and have the patient follow-up in the outpatient setting with ENT for evaluation. ENT has evaluated the patient in hospital and recommending to continue with flonase and complete the augmentin, most likely chronic Patient will be going to ECF once stabilized. Recommend repeat labs in the am after electrolyte replacement as potassium was found to be 2.8 today Due to multiple complex medical issues, prognosis is guarded The impression and plan of care has been dictated by Lisa Knox, Nurse Practitioner as directed. Dr. Angelina MD I have performed a history and examination and MDM of this patient, discussed the same with the dictator, and agree with the dictator's assessment and plan as written ,documented as a scribe. Based on total visit time, I have performed more than 50% of the visit. Objective - Vital Signs Vital signs: Vital Signs Temp 98.0 F 11/19/21 04:00 Pulse 64 11/19/21 09:01 Resp 16 11/19/21 04:00 BP 111/57 11/19/21 04:00 Pulse Ox 99 11/19/21 08:51 FiO2 36 11/10/21 19:33 Intake & Output 11/18/21 11/19/21 11/19/21 18:59 06:59 18:59 Intake Total 120 Output Total 1000 0 400 Balance -1000 0 -280 Intake: Oral 120 Output: Urine 1000 400 Stool 0 Other: Voiding Method External Catheter External Catheter # Bowel Movements 1 - Labs CBC & Chem 7: 11/18/21 10:09 11/19/21 06:26 Labs: Abnormal Lab Results - Last 24 Hours (Table) 11/18/21 11/18/21 11/18/21 Range/Units 10:09 10:09 11:41 WBC 14.5 H (3.8-10.6) k/uL MCHC 29.5 L (31.0-37.0) g/dL RDW 25.9 H (11.5-15.5) % Neutrophils # 12.8 H (1.3-7.7) k/uL Lymphocytes # 0.7 L (1.0-4.8) k/uL Sodium 133 L (137-145) mmol/L Potassium 2.7 L* (3.5-5.1) mmol/L Chloride 84 L (98-107) mmol/L Carbon Dioxide 40 H (22-30) mmol/L BUN 35 H (7-17) mg/dL Glucose 121 H (74-99) mg/dL POC Glucose (mg/dL) 141 H (70-110) mg/dL 11/18/21 11/18/21 11/19/21 Range/Units 16:42 21:00 06:26 WBC (3.8-10.6) k/uL MCHC (31.0-37.0) g/dL RDW (11.5-15.5) % Neutrophils # (1.3-7.7) k/uL Lymphocytes # (1.0-4.8) k/uL Sodium 133 L (137-145) mmol/L Potassium 2.8 L (3.5-5.1) mmol/L Chloride 84 L (98-107) mmol/L Carbon Dioxide 42 H* (22-30) mmol/L BUN 30 H (7-17) mg/dL Glucose (74-99) mg/dL POC Glucose (mg/dL) 174 H 147 H (70-110) mg/dL
[2021-11-19 16:30] LABS: Glucose,Whole Blood 182 mg/dL (70-110)
[2021-11-19 20:13] LABS: Glucose,Whole Blood 134 mg/dL (70-110)
[2021-11-19] MEDS: MONTELUKAST 10 MG TAB PO SCH (20:49)
[2021-11-20] MEDS: guaiFENesin-DM 100-10MG/5ML 10 ML CUP PO SCH ×5 (00:14→23:21)
[2021-11-20 06:24] LABS: Glucose,Whole Blood 154 mg/dL (70-110)
[2021-11-20] MEDS: INSULIN ASPART (NovoLOG) 100 UNIT/ML VIAL SQ SCH ×4 (06:25→21:05)
[2021-11-20] MEDS: PANTOPRAZOLE 40 MG TABLET PO SCH (06:25)
[2021-11-20] MEDS: FERROUS SULFATE 325 MG TAB PO SCH ×3 (06:25→18:27)
[2021-11-20] MEDS: MIDODRINE 5 MG TAB PO SCH ×3 (06:25→18:27)
[2021-11-20 07:29] LABS: Calcium 8.7 mg/dL (8.4-10.2); Potassium 3.5 mmol/L (3.5-5.1)
[2021-11-20] MEDS: IPRATROPIUM-ALBUTEROL 3 ML NEB INHALATION SCH ×4 (08:58→20:32)
[2021-11-20] MEDS: SYMBICORT 160-4.5 MCG INHALER INHALATION SCH ×2 (08:58→20:32)
[2021-11-20] MEDS: predniSONE 10 MG TAB PO SCH ×2 (09:23→10:28)
[2021-11-20] MEDS: AMOXIC-POT CLAV 875-125MG 1 EACH TAB PO SCH ×2 (09:23→21:05)
[2021-11-20] MEDS: DOCUSATE 100 MG CAP PO SCH ×2 (09:24→21:05)
[2021-11-20] MEDS: FLECAINIDE 50 MG TAB PO SCH ×2 (09:24→21:05)
[2021-11-20] MEDS: CHOLECALCIFEROL 25 MCG (1000 IU) TABLET PO SCH (09:24)
[2021-11-20] MEDS: APIXABAN 5 MG TAB PO SCH ×2 (09:24→21:05)
[2021-11-20] MEDS: FOLIC ACID 1 MG TAB PO SCH (09:24)
[2021-11-20] MEDS: DILTIAZEM CD 120 MG CAP.ER.24H PO SCH (09:24)
[2021-11-20] MEDS: MAGNESIUM OXIDE 400 MG TAB PO SCH (09:24)
[2021-11-20] MEDS: FUROSEMIDE 20 MG TAB PO SCH (09:24)
[2021-11-20] MEDS: CALCIUM CARB-VIT D 500 MG-5 MCG TAB PO SCH (09:24)
[2021-11-20] MEDS: VITAMIN E (DL,TOCOPHERYL ACET) 400 UNIT (180 MG) CAP PO SCH (09:24)
[2021-11-20] MEDS: CALCITONIN 200 USP/1 NASAL SPRAY 3.7ML BTL NASAL SCH (09:25)
[2021-11-20] MEDS: POTASSIUM CHLORIDE ER 20 MEQ TAB.ER PO SCH (09:25)
[2021-11-20] MEDS: FLUTICASONE 50MCG/SPRAY NASAL 16GM EA NOSTRIL SCH (09:26)
[2021-11-20] MEDS: polyethylene glycoL 3350 17 GM POWD.PACK PO SCH (09:41)
[2021-11-20] MEDS: MULTIVITAMINS, THERA 1 EACH TAB PO SCH (09:41)
[2021-11-20] MEDS: predniSONE 20 MG TAB PO SCH (09:41)
[2021-11-20 11:29] LABS: Glucose,Whole Blood 164 mg/dL (70-110)
[2021-11-20 16:30] LABS: Glucose,Whole Blood 157 mg/dL (70-110)
[2021-11-20 19:59] LABS: Glucose,Whole Blood 133 mg/dL (70-110)
[2021-11-20] MEDS: MONTELUKAST 10 MG TAB PO SCH (21:05)
[2021-11-21] MEDS: ACETAMINOPHEN TAB 325 MG TAB PO PRN (00:11)
[2021-11-21 04:40] VITALS: RESP 14
[2021-11-21 06:32] LABS: Glucose,Whole Blood 114 mg/dL (70-110)
[2021-11-21] MEDS: PANTOPRAZOLE 40 MG TABLET PO SCH (06:52)
[2021-11-21] MEDS: MIDODRINE 5 MG TAB PO SCH ×2 (06:52→12:33)
[2021-11-21] MEDS: FERROUS SULFATE 325 MG TAB PO SCH ×2 (06:52→12:33)
[2021-11-21] MEDS: INSULIN ASPART (NovoLOG) 100 UNIT/ML VIAL SQ SCH ×2 (06:53→12:15)
[2021-11-21] MEDS: guaiFENesin-DM 100-10MG/5ML 10 ML CUP PO SCH ×2 (06:53→12:15)
[2021-11-21] MEDS: SYMBICORT 160-4.5 MCG INHALER INHALATION SCH (07:12)
[2021-11-21] MEDS: IPRATROPIUM-ALBUTEROL 3 ML NEB INHALATION SCH ×2 (07:12→11:19)
[2021-11-21] MEDS: DILTIAZEM CD 120 MG CAP.ER.24H PO SCH (09:36)
[2021-11-21] MEDS: APIXABAN 5 MG TAB PO SCH (09:36)
[2021-11-21] MEDS: AMOXIC-POT CLAV 875-125MG 1 EACH TAB PO SCH (09:36)
[2021-11-21] MEDS: predniSONE 20 MG TAB PO SCH (09:36)
[2021-11-21] MEDS: polyethylene glycoL 3350 17 GM POWD.PACK PO SCH (09:36)
[2021-11-21] MEDS: MAGNESIUM OXIDE 400 MG TAB PO SCH (09:36)
[2021-11-21] MEDS: FLECAINIDE 50 MG TAB PO SCH (09:36)
[2021-11-21] MEDS: DOCUSATE 100 MG CAP PO SCH (09:37)
[2021-11-21] MEDS: FLUTICASONE 50MCG/SPRAY NASAL 16GM EA NOSTRIL SCH (09:37)
[2021-11-21] MEDS: FUROSEMIDE 20 MG TAB PO SCH (09:37)
[2021-11-21] MEDS: CHOLECALCIFEROL 25 MCG (1000 IU) TABLET PO SCH (09:37)
[2021-11-21] MEDS: CALCIUM CARB-VIT D 500 MG-5 MCG TAB PO SCH (09:37)
[2021-11-21] MEDS: VITAMIN E (DL,TOCOPHERYL ACET) 400 UNIT (180 MG) CAP PO SCH (09:37)
[2021-11-21] MEDS: POTASSIUM CHLORIDE ER 20 MEQ TAB.ER PO SCH (09:37)
[2021-11-21] MEDS: FOLIC ACID 1 MG TAB PO SCH (09:37)
[2021-11-21] MEDS: CALCITONIN 200 USP/1 NASAL SPRAY 3.7ML BTL NASAL SCH (09:38)
[2021-11-21] MEDS: MULTIVITAMINS, THERA 1 EACH TAB PO SCH (09:38)
[2021-11-21 11:48] LABS: Glucose,Whole Blood 152 mg/dL (70-110)
--- NOTE | 2021-11-21 13:34 | P.DS ---
Providers Date of admission: 11/08/21 14:12 Expected date of discharge: 11/21/21 Attending physician: Red Casey Consults: 11/08/21 14:12 Consult Physician Routine Consulting Provider: Chencho Gallardo Consult Reason/Comments: copd Do you want consulting provider notified?: Yes 11/10/21 13:29 Consult Physician Routine Consulting Provider: David Gallardo Consult Reason/Comments: tremors, questionable unresponsivness Do you want consulting provider notified?: Yes 11/16/21 11:05 Consult Physician Urgent Consulting Provider: Pedro Luis Perry Consult Reason/Comments: severe mastoiditis, chronic sinusitis Do you want consulting provider notified?: Yes Primary care physician: Terence Lopez [facility] Course: Final diagnosis -Acute on chronic hypoxic respiratory failure -Hypokalemia -Hyponatremia -Acute exacerbation diastolic CHF -Bilateral mastoiditis, mostly chronic -Acute anemia likely related to chronic GI blood loss -Acute exacerbation COPD/asthma -Chronic back pain related to compression fractures T7, T12 and L2 -History of osteoporosis -No code Discharge disposition Patient is being discharged in a stable condition with guarded prognosis to [facility]. Patient will follow-up with Dr. Terence Lopez in the outpatient setting upon discharge. Patient is to continue with current cardiac medications and outpatient follow-up with cardiology along with pulmonary and ENT in the outpatient setting as scheduled. Patient is to continue on oral Augmentin twice daily for the next 4 days to complete the course. Patient also continued on a prednisone taper and currently on 20 mg daily to continue for another 4 days and then titrate down to 10 mg daily for 4 days. Total time taken is greater than 35 minutes. Hospital course This is a 71-year-old female who was recently admitted with increasing shortness of breath, CHF, COPD, and increasing weakness and was being closely monitored. Multiple medical consultations following recommending outpatient follow-up. Patient also had an MRI of the brain which showed mastoiditis and chronic sinusitis and patient is continued on oral Augmentin twice daily for the next 4 days to complete the course. Patient also to continue with Flonase and outpatient follow-up with ENT. Patient is continued on a prednisone taper and currently on 20 mg daily to continue for the next 4 days and then titrate down to 10 mg daily for 4 days and then discontinue. Patient will need pulmonary and cardiology follow-up outpatient. Patient continues with occasional dizziness which results in nausea when attempting to get up but patient has been mostly bedbound this whole hospitalization and has had 2 recent hospitalizations that have been prolonged which has increased her weakness. Patient was evaluated by physical therapy recommending subacute rehab on last admission as well although patient refused and went home and subsequently returned within the next 2 days back to the hospital. Patient is now agreeable to rehab and will be going to [facility]. Recommend continue with consistent carb heart healthy diet and Accu-Cheks before meals and at bedtime and sliding scale as needed. Currently no reports of chest pain, shortness of breath, or palpitations. Patient is afebrile. No reports of nausea or vomiting and patient is tolerating diet. Insurance authorization has now been obtained today on 11/21/2021 and patient will be going to [facility] today. Guarded prognosis as patient is high risk for readmissions Physical exam: Gen: This is a 71-year-old female awake, alert and oriented 3, well-developed, well-nourished HEENT: Head is atraumatic, normocephalic. Pupils equal, round. Sclerae is anicteric. NECK: Supple. No JVD. No lymphadenopathy. No thyromegaly. LUNGS: Diminished breath sounds bilaterally with some scattered rhonchi noted throughout No intercostal retractions. HEART: S1, S2 are muffled ABDOMEN: Soft. Bowel sounds are present. No masses. No tenderness. EXTREMITIES: No pedal edema. No calf tenderness. NEUROLOGICAL: Patient is awake, alert and oriented x3. Cranial nerves 2 through 12 are grossly intact. Diffusely weak Please refer to medication reconciliation sheet for a list of medications. The impression and plan of care has been dictated by Lisa Knox, Nurse Practitioner as directed. Dr. Angelina MD I have performed a history and examination and MDM of this patient, discussed the same with the dictator, and agree with the dictator's assessment and plan as written ,documented as a scribe. Based on total visit time, I have performed more than 50% of the visit. Patient Condition at Discharge: Fair Plan - Discharge Summary Discharge Rx Participant: No New Discharge Prescriptions: New Multivitamins, Thera [Multivitamin (formulary)] 1 each PO DAILY tab Pantoprazole [Protonix] 40 mg PO AC-BRKFST tab Diltiazem Cd [Cardizem CD] 120 mg PO DAILY cap Potassium Chloride ER [K-Dur 20] 40 meq PO DAILY tab Amoxic-Pot Clav 875-125Mg [Augmentin 875-125] 1 each PO Q12HR 7 Days #14 tab polyethylene glycoL 3350 [Miralax] 17 gm PO DAILY packet INSULIN ASPART (NovoLOG) [NovoLOG (formulary)] 0 unit SQ ACHS each Ondansetron Odt [Zofran ODT] 4 mg PO Q8HR PRN tab PRN Reason: Nausea Furosemide [Lasix] 20 mg PO DAILY tab Midodrine [ProAmatine] 5 mg PO AC-TID tab Continue Albuterol Sulfate [Proventil Hfa] 2 puff INHALATION RT-QID PRN PRN Reason: Shortness Of Breath Budesonide/Formoterol Fumarate [Symbicort 160-4.5 Mcg Inhaler] 2 puff INHALATION RT-BID Albuterol Nebulized [Ventolin Nebulized] 2.5 mg INHALATION RT-QID PRN PRN Reason: Shortness Of Breath Montelukast [Singulair] 10 mg PO HS Folic Acid 1 mg PO DAILY Apixaban [Eliquis] 5 mg PO BID Calcium/Vitamin D Chewable 1 tab PO DAILY Vitamin E (Dl,Tocopheryl Acet) [Vitamin E (400 Iu = 180 mg)] 400 unit PO DAILY Flecainide [Tambocor] 150 mg PO BID #180 tab Docusate [Colace] 100 mg PO BID cap Magnesium Oxide [Mag-Ox] 400 mg PO DAILY D-Mannose 1,400 mg PO DAILY Calcitonin Nasal [Fortical (Miacalcin)] 1 spr NASAL DAILY Cholecalciferol [Vitamin D3 (25 Mcg = 1000 Iu)] 25 mcg PO DAILY Fluticasone Nasal [place] [Flonase Nasal [place]] 2 spr EA NOSTRIL DAILY Umeclidinium [place] [Incruse Ellipta] 1 puff INHALATION RT-DAILY Ipratropium-Albuterol Nebulize [Duoneb 0.5 mg-3 mg/3 ml Soln] 3 ml INHALATION RT-Q4H #120 each Ipratropium-Albuterol Nebulize [Duoneb 0.5 mg-3 mg/3 ml Soln] 3 ml INHALATION Q4H PRN each PRN Reason: Wheezing Ferrous Sulfate [Iron (65 MG Elemental)] 325 mg PO TID-W/MEALS #90 tab guaiFENesin-DM 100-10MG/5ML [Robitussin DM] 10 ml PO Q6HR #240 ml Acetaminophen Tab [Tylenol] 650 mg PO Q6H PRN PRN Reason: Fever And/ Or Pain Changed predniSONE See Taper PO DIRECTED #0 Discontinued dilTIAZem HCL [Cartia Xt] 180 mg PO DAILY Metoprolol Tartrate [Lopressor] 25 mg PO TID #90 tab Fennel Tea 1 dose PO DAILY PRN PRN Reason: gas Furosemide [Lasix] 20 mg PO BID@0900,1600 30 Days #60 tab Discharge Medication List Albuterol Nebulized [Ventolin Nebulized] 2.5 mg INHALATION RT-QID PRN 07/22/16 [History] Albuterol Sulfate [Proventil Hfa] 2 puff INHALATION RT-QID PRN 07/22/16 [History] Budesonide/Formoterol Fumarate [Symbicort 160-4.5 Mcg Inhaler] 2 puff INHALATION RT-BID 07/22/16 [History] Montelukast [Singulair] 10 mg PO HS 07/22/16 [History] Folic Acid 1 mg PO DAILY 01/19/18 [History] Apixaban [Eliquis] 5 mg PO BID 05/25/18 [History] Calcium/Vitamin D Chewable 1 tab PO DAILY 01/05/21 [History] D-Mannose 1,400 mg PO DAILY 01/05/21 [History] Magnesium Oxide [Mag-Ox] 400 mg PO DAILY 01/05/21 [History] Calcitonin Nasal [Fortical (Miacalcin)] 1 spr NASAL DAILY 10/28/21 [History] Cholecalciferol [Vitamin D3 (25 Mcg = 1000 Iu)] 25 mcg PO DAILY 10/28/21 [History] Fluticasone Nasal [place] [Flonase Nasal [place]] 2 spr EA NOSTRIL DAILY 10/28/21 [History] Umeclidinium [place] [Incruse Ellipta] 1 puff INHALATION RT-DAILY 10/28/21 [History] Vitamin E (Dl,Tocopheryl Acet) [Vitamin E (400 Iu = 180 mg)] 400 unit PO DAILY 10/28/21 [History] Docusate [Colace] 100 mg PO BID cap 11/07/21 [Rx] Ferrous Sulfate [Iron (65 MG Elemental)] 325 mg PO TID-W/MEALS #90 tab 11/07/21 [Rx] Flecainide [Tambocor] 150 mg PO BID #180 tab 11/07/21 [Rx] Ipratropium-Albuterol Nebulize [Duoneb 0.5 mg-3 mg/3 ml Soln] 3 ml INHALATION Q4H PRN each 11/07/21 [Rx] Ipratropium-Albuterol Nebulize [Duoneb 0.5 mg-3 mg/3 ml Soln] 3 ml INHALATION RT-Q4H #120 each 11/07/21 [Rx] guaiFENesin-DM 100-10MG/5ML [Robitussin DM] 10 ml PO Q6HR #240 ml 11/07/21 [Rx] Acetaminophen Tab [Tylenol] 650 mg PO Q6H PRN 11/08/21 [History] Amoxic-Pot Clav 875-125Mg [Augmentin 875-125] 1 each PO Q12HR 7 Days #14 tab 11/16/21 [Rx] INSULIN ASPART (NovoLOG) [NovoLOG (formulary)] 0 unit SQ ACHS each 11/16/21 [Rx] Multivitamins, Thera [Multivitamin (formulary)] 1 each PO DAILY tab 11/16/21 [Rx] Ondansetron Odt [Zofran ODT] 4 mg PO Q8HR PRN tab 11/16/21 [Rx] Pantoprazole [Protonix] 40 mg PO AC-BRKFST tab 11/16/21 [Rx] polyethylene glycoL 3350 [Miralax] 17 gm PO DAILY packet 11/16/21 [Rx] Diltiazem Cd [Cardizem CD] 120 mg PO DAILY cap 11/20/21 [Rx] Furosemide [Lasix] 20 mg PO DAILY tab 11/20/21 [Rx] Midodrine [ProAmatine] 5 mg PO AC-TID tab 11/20/21 [Rx] Potassium Chloride ER [K-Dur 20] 40 meq PO DAILY tab 11/20/21 [Rx] predniSONE See Taper PO DIRECTED #0 11/20/21 [Rx] Follow up Appointment(s)/Referral(s): Abhay Tinajeor MD [STAFF PHYSICIAN] - 11/28/21 3:15 pm Chencho Gallardo DO [Family Provider] - 12/06/21 1:30 pm Terence Lopez MD [Primary Care Provider] - Adair Santacruz MD [STAFF PHYSICIAN] - 1 Week Ambulatory/Diagnostic Orders: Complete Blood Count w/diff [LAB.AMB] Time Frame: 3 Days, Location: None Selected Activity/Diet/Wound Care/Special Instructions: Patient is going to [facility] Activity as tolerated Patient needs follow up with cardiology follow up with pulmonary follow up with ENT Continue antibiotics for 4 days until finished Follow up labs in 2-3 day of cbc, bmp Continue with midodrine 5mg tid and may need to increase due to low bp continue holding beta nena for now Patient needs aggressive physical therapy and has not been getting out of bed much due to dizziness Continue heart healthy consistent carb diet Recommend Accu-Cheks before meals and at bedtime and use sliding scale as needed NovoLog sliding scale 0-150 equals 0 units 151-200 equals 2 units 201-250 equals 4 units 251-300 equals 6 units 301-350 equals 8 units 351-400 equals 10 units Please notify provider if blood sugar is 400 or above Discharge Disposition: TRANSFER TO SNF/ECF
[2021-11-21 15:00] VITALS: BP 93/57; PULSE 70; TEMP 98
--- NOTE | 2021-12-11 01:52 | P.PN ---
Subjective Progress Note Date: 11/17/21 Acute on chronic hypoxic respiratory failure Acute exacerbation diastolic CHF Acute anemia likely chronic GI blood loss Acute exacerbation COPD/asthma 71-year-old female who was recently discharged from this hospital, on November 07. She was in the hospital, on her last visit, because of atrial fibrillation with rapid ventricular response. She underwent cardioversion, and reverted back to normal sinus rhythm. She was discharged on November 07, and apparently was reevaluated on November 08 in the emergency room. The reason for coming back into the hospital, was because of profound weakness. The patient states that when she got home, she could barely pull herself out of bed. She feels like she probably needs either a retirement or rehabilitation. She denies shortness of breath, more so than when she was here last. She does have a history of underlying COPD/asthma. Other medical problems include atrial fibrillation, heart failure, gastroesophageal reflux disease, diverticular perforation with colostomy and reversal, bowel obstruction, osteoporosis, kidney stones, and compression fracture. Laboratory data includes a white count 13.7, hemoglobin 9.5, hematocrit 33.8, and a platelet count of 371,000. A blood gas shows a pO2 of 88, pCO2 73, and a pH is 7.46. Sodium 138, potassium 3.4, chlorides 85, CO2 50, BUN 31, and creatinine 0.85. N-terminal proBNP was 801. Troponin was less than 0.012. Chest x-ray was consistent with mild fluid overload. 11/10/2021 Patient is seen and evaluated resting comfortably in bed; denies any specific complaints Currently, she is on 4 L. She's not receiving any IV fluids. White count 21.1, hemoglobin 9, hematocrit 30.4, and platelet count 313,000. Sodium 135, potassium 2.8, chlorides 81, CO2 56, BUN 45, and creatinine 1.04. Labs, x-rays, and medications are reviewed. Saturations are excellent. She's being evaluated for possible placement in a rehab facility or retirement. She comes in with profound weakness. On her last admission, she was cardioverted, out of atrial fibrillation into normal sinus rhythm. She remains in normal si nus rhythm. Prognosis is guarded. 11/11/2021 Patient is seen and evaluated in room at bedside and discussed with nursing staff; reports of patient coughing and being over after meals patient has been made nothing by mouth; patient had episode of tremors and questionable unresponsiveness Vital signs are reviewed with temperature of 98.2, pulse 56, decision 18 and blood pressure 111/65 Today's labs include a white count of 17.1, hemoglobin 9.3, hematocrit 32.4, and a platelet count of 298,000. Sodium 136, potassium 3.4, chlorides 84, CO2 52, BUN 51, and creatinine 1.05. Brain CAT scan was negative for anything acute. Patient has been evaluated by urology for episodes of unresponsiveness. She is ordered; hold off on antiepileptic therapy to EEG results are available; MRI of the brain is recommended with and without contrast; order vitamin B12 and folic acid 11/12/2021 Patient is seen and evaluated in room at bedside; remains quite weak. CAT scan of the brain was negative. An MRI of the brain is also in progress. Meanwhile, the patient's cardiac rhythm is sinus. The patient is currently on anticoagulation with Eliquis. The patient is also on a combination of medications including flecainide 150 mg by mouth twice a day and metoprolol 25 mg by mouth 3 times a day and this has maintain a normal sinus rhythm. Blood work reveals 16.6 with a hemoglobin of 10.7 and a platelet count of 291. BUN is a 48 with a creatinine of 1.1. Insulin level is at 137. Potassium level needs to be replaced. It is currently at 3.4. The patient is known to have chronic metabolic alkalosis. The coagulation profile has been within normal limits. Over that he doesn't think is been negative and influenza screen was also negative. Some increased interstitial markings with small bilateral pleural effusion, probably related to underlying CHF. Currently the patient is on 4 L O2 nasal cannula. Patient to be transferred to skilled rehab once clinically stable 11/13/2021 Patient is seen and evaluated this morning with cardiology and pulmonary following and has been transitioned to oral lasix and oral prednisone and continues on duoneb treatments and inhalers and will continue. Patient is on eliquis as well. Patient chronically wears 4L via NC and denies worsening shortness of breath. Patient is reporting some lower left and right quadrant discomfort on palpation and reports to feeling somewhat constipated and will give an enema/suppository. Encouraged increased activity as tolerated and will resume miralax. Social work following as patient is now agreeable to rehab. 11/14/2021 Patient seen and evaluated in follow-up today being followed by cardiology, pulmonary, also neurology. Patient underwent brain MRI which is suggestive of some moderate to severe mastoiditis and will have patient started on Augmentin to complete a course and outpatient follow-up with ENT for further review. Patient continues with some dizziness and some nausea and will add Zofran. Encouraged increase activity as tolerated as patient is mostly laying in bed and continues to be extremely weak. Patient is agreeable to rehab and awaiting insurance authorization at this time. Social work is following and awaiting updates on authorization. Patient is afebrile denies chest pain or worsening shortness of breath. Patient is continued on her DuoNeb's and will continue a prednisone taper. Patient has also been transitioned to oral Lasix and will continue on recommend outpatient follow-up labs. 11/15/2021 Patient is seen today and continues to await insurance authorization to go to [facility]. Patient continues with extreme weakness and reports she continues with dizziness and nausea when getting up to work with physical therapy. Patient minimally working with PT. Nursing staff reports she has been getting up with nurses throughout the day. Continued on oral prednisone, augmentin, and oral lasix. Patient denies chest pain or shortness of breath. Patient reports to having bowel movements. 11/16/2021 Patient is seen this morning and continues to have dizziness and lightheadedness when getting up and feeling faint. Patient per nursing report became hypotensive with standing required laying back down to avoid syncope per patient. Patient systolic blood pressure was in the 70's systolic. Patient has not been getting up much at all this entire hospitalization and has had prolonged hospitalization. Patient is on augmentin and flonase and ENT was consulted for the mastoiditis findings on MRI and appreciate input and recommendations. Cardiology following and has discontinued metoprolol and adding midodrine for the low blood pressures. Strongly encouraged increased activity as tolerated and sitting up in the chair more often and out of the bed. Patient denies chest pain or shortness of breath. Patient was also on lasix bic and will make daily. Recommend am labs and close monitoring. Patient was to go to [facility] once stabilized. 11/17/2021 Patient is currently resting in bed. Awake alert and oriented x3. Complains of constipation and back discomfort. Otherwise maintaining sinus rhythm. No complaints of chest pain. No nausea vomiting abdominal pain or diarrhea. Neck no complaints of dizziness or lightheadedness. Patient did have orthostatic changes and was started on midodrine. Cardiology is on board. Diuretic dose decreased. Laboratory data showed WBC 16.5 hemoglobin 12.0 and platelets 206 Sodium 134 potassium 3.0 chloride 82 bicarb is 45 BUN 15 creatinine 1.3. Magnesium 2.5. Review of systems: Constitutional: No reports of fatigue, fever, or chills Cardiovascular: No reports of chest pain or palpitations Respiratory: reports of shortness of breath that is no worse GI: reports of occasional nausea, vomiting, or diarrhea : No reports of dysuria or retention Neurovascular: reports of generalized weakness , reports some nausea and dizz iness on occasion with getting up All medications have been reviewed PHYSICAL EXAMINATION: GENERAL: The patient is alert and oriented x3, not in any acute distress. Well developed, well nourished. HEENT: Pupils are round and equally reacting to light. EOMI. No scleral icterus. No conjunctival pallor. Normocephalic, atraumatic. No pharyngeal erythema. No thyromegaly. CARDIOVASCULAR: S1 and S2 muffled PULMONARY: diminished breath sounds bilaterally with some scattered rhonchi more so on the left with some faint wheezing noted ABDOMEN: Soft, nontender, nondistended, normoactive bowel sounds. No palpable organomegaly. MUSCULOSKELETAL: No joint swelling or deformity. EXTREMITIES: No cyanosis, clubbing, or pedal edema. NEUROLOGICAL: Gross neurological examination did not reveal any focal deficits. diffusely weak SKIN: No rashes. Assessment: -Acute on chronic hypoxic respiratory failure -Acute exacerbation diastolic CHF -Hypokalemia. Replaced. Orthostatic hypotension. Started on midodrine. -Bilateral mastoiditis noted on MRI, most likely chronic -Acute anemia likely related to chronic GI blood loss -Acute exacerbation COPD/asthma -Chronic back pain related to compression fractures T7, T12 and L2 -History of osteoporosis -No code Plan: Patient is currently on O2 at 4 L per nasal cannula; remains on oral Lasix 40 mg and transitioned to daily due to low blood pressures Recommend to continue low-salt and fluid restricted diet Encouraged increased activity as tolerated cardiology recommending to continue Eliquis, Cardizem, flecainide, metoprolol tartrate, although titrating down the dose and metoprolol discontinued and started on midodrine for low blood pressures, recomment orthostatics daily Pulmonary following and is on oral prednisone with plans for a quick taper, continue duo nebs PT/OT following for evaluation for ECF and patient agreeable, and recommend DEBBIE and social work following and insurance auth was obtained today Patient to continue with miralax and stool softeners as needed MRI was suggestive of mastoiditis and chronic sinusitis and will continue Augmentin to complete a week's course and have the patient follow-up in the outpatient setting with ENT for evaluation. ENT has evaluated the patient in hospital and recommending to continue with flonase and complete the augmentin, most likely chronic Prognosis is guarded Patient will be going to ECF once stabilized. REcommend repeat labs in the am Objective - Vital Signs Vital signs: Vital Signs Temp 97.9 F 11/17/21 20:00 Pulse 72 11/17/21 21:21 Resp 17 11/17/21 20:00 BP 105/62 11/17/21 20:00 Pulse Ox 97 11/17/21 20:00 FiO2 36 11/10/21 19:33 Intake & Output 11/17/21 11/17/21 11/18/21 06:59 18:59 06:59 Intake Total 180 Output Total 400 500 Balance -400 -320 Intake: Oral 180 Output: Urine 400 500 Stool 0 Other: Voiding Method External Catheter External Catheter External Catheter - Labs CBC & Chem 7: 11/18/21 10:09 11/20/21 06:48 Labs: Abnormal Lab Results - Last 24 Hours (Table) 11/17/21 11/17/21 11/17/21 Range/Units 07:08 08:30 08:30 WBC 16.5 H (3.8-10.6) k/uL MCHC 29.4 L (31.0-37.0) g/dL RDW 25.5 H (11.5-15.5) % Neutrophils # 13.7 H (1.3-7.7) k/uL Sodium 134 L (137-145) mmol/L Potassium 3.0 L (3.5-5.1) mmol/L Chloride 82 L (98-107) mmol/L Carbon Dioxide 45 H* (22-30) mmol/L BUN 50 H (7-17) mg/dL Creatinine 1.30 H (0.52-1.04) mg/dL Glucose 123 H (74-99) mg/dL POC Glucose (mg/dL) 163 H (70-110) mg/dL Magnesium 2.5 H (1.6-2.3) mg/dL 11/17/21 11/17/21 Range/Units 16:35 19:43 WBC (3.8-10.6) k/uL MCHC (31.0-37.0) g/dL RDW (11.5-15.5) % Neutrophils # (1.3-7.7) k/uL Sodium (137-145) mmol/L Potassium (3.5-5.1) mmol/L Chloride (98-107) mmol/L Carbon Dioxide (22-30) mmol/L BUN (7-17) mg/dL Creatinine (0.52-1.04) mg/dL Glucose (74-99) mg/dL POC Glucose (mg/dL) 173 H 145 H (70-110) mg/dL Magnesium (1.6-2.3) mg/dL
--- NOTE | 2021-12-11 01:54 | P.PN ---
Subjective Progress Note Date: 11/18/21 Acute on chronic hypoxic respiratory failure Acute exacerbation diastolic CHF Acute anemia likely chronic GI blood loss Acute exacerbation COPD/asthma 71-year-old female who was recently discharged from this hospital, on November 07. She was in the hospital, on her last visit, because of atrial fibrillation with rapid ventricular response. She underwent cardioversion, and reverted back to normal sinus rhythm. She was discharged on November 07, and apparently was reevaluated on November 08 in the emergency room. The reason for coming back into the hospital, was because of profound weakness. The patient states that when she got home, she could barely pull herself out of bed. She feels like she probably needs either a senior living or rehabilitation. She denies shortness of breath, more so than when she was here last. She does have a history of underlying COPD/asthma. Other medical problems include atrial fibrillation, heart failure, gastroesophageal reflux disease, diverticular perforation with colostomy and reversal, bowel obstruction, osteoporosis, kidney stones, and compression fracture. Laboratory data includes a white count 13.7, hemoglobin 9.5, hematocrit 33.8, and a platelet count of 371,000. A blood gas shows a pO2 of 88, pCO2 73, and a pH is 7.46. Sodium 138, potassium 3.4, chlorides 85, CO2 50, BUN 31, and creatinine 0.85. N-terminal proBNP was 801. Troponin was less than 0.012. Chest x-ray was consistent with mild fluid overload. 11/10/2021 Patient is seen and evaluated resting comfortably in bed; denies any specific complaints Currently, she is on 4 L. She's not receiving any IV fluids. White count 21.1, hemoglobin 9, hematocrit 30.4, and platelet count 313,000. Sodium 135, potassium 2.8, chlorides 81, CO2 56, BUN 45, and creatinine 1.04. Labs, x-rays, and medications are reviewed. Saturations are excellent. She's being evaluated for possible placement in a rehab facility or senior living. She comes in with profound weakness. On her last admission, she was cardioverted, out of atrial fibrillation into normal sinus rhythm. She remains in normal si nus rhythm. Prognosis is guarded. 11/11/2021 Patient is seen and evaluated in room at bedside and discussed with nursing staff; reports of patient coughing and being over after meals patient has been made nothing by mouth; patient had episode of tremors and questionable unresponsiveness Vital signs are reviewed with temperature of 98.2, pulse 56, decision 18 and blood pressure 111/65 Today's labs include a white count of 17.1, hemoglobin 9.3, hematocrit 32.4, and a platelet count of 298,000. Sodium 136, potassium 3.4, chlorides 84, CO2 52, BUN 51, and creatinine 1.05. Brain CAT scan was negative for anything acute. Patient has been evaluated by urology for episodes of unresponsiveness. She is ordered; hold off on antiepileptic therapy to EEG results are available; MRI of the brain is recommended with and without contrast; order vitamin B12 and folic acid 11/12/2021 Patient is seen and evaluated in room at bedside; remains quite weak. CAT scan of the brain was negative. An MRI of the brain is also in progress. Meanwhile, the patient's cardiac rhythm is sinus. The patient is currently on anticoagulation with Eliquis. The patient is also on a combination of medications including flecainide 150 mg by mouth twice a day and metoprolol 25 mg by mouth 3 times a day and this has maintain a normal sinus rhythm. Blood work reveals 16.6 with a hemoglobin of 10.7 and a platelet count of 291. BUN is a 48 with a creatinine of 1.1. Insulin level is at 137. Potassium level needs to be replaced. It is currently at 3.4. The patient is known to have chronic metabolic alkalosis. The coagulation profile has been within normal limits. Over that he doesn't think is been negative and influenza screen was also negative. Some increased interstitial markings with small bilateral pleural effusion, probably related to underlying CHF. Currently the patient is on 4 L O2 nasal cannula. Patient to be transferred to skilled rehab once clinically stable 11/13/2021 Patient is seen and evaluated this morning with cardiology and pulmonary following and has been transitioned to oral lasix and oral prednisone and continues on duoneb treatments and inhalers and will continue. Patient is on eliquis as well. Patient chronically wears 4L via NC and denies worsening shortness of breath. Patient is reporting some lower left and right quadrant discomfort on palpation and reports to feeling somewhat constipated and will give an enema/suppository. Encouraged increased activity as tolerated and will resume miralax. Social work following as patient is now agreeable to rehab. 11/14/2021 Patient seen and evaluated in follow-up today being followed by cardiology, pulmonary, also neurology. Patient underwent brain MRI which is suggestive of some moderate to severe mastoiditis and will have patient started on Augmentin to complete a course and outpatient follow-up with ENT for further review. Patient continues with some dizziness and some nausea and will add Zofran. Encouraged increase activity as tolerated as patient is mostly laying in bed and continues to be extremely weak. Patient is agreeable to rehab and awaiting insurance authorization at this time. Social work is following and awaiting updates on authorization. Patient is afebrile denies chest pain or worsening shortness of breath. Patient is continued on her DuoNeb's and will continue a prednisone taper. Patient has also been transitioned to oral Lasix and will continue on recommend outpatient follow-up labs. 11/15/2021 Patient is seen today and continues to await insurance authorization to go to [facility]. Patient continues with extreme weakness and reports she continues with dizziness and nausea when getting up to work with physical therapy. Patient minimally working with PT. Nursing staff reports she has been getting up with nurses throughout the day. Continued on oral prednisone, augmentin, and oral lasix. Patient denies chest pain or shortness of breath. Patient reports to having bowel movements. 11/16/2021 Patient is seen this morning and continues to have dizziness and lightheadedness when getting up and feeling faint. Patient per nursing report became hypotensive with standing required laying back down to avoid syncope per patient. Patient systolic blood pressure was in the 70's systolic. Patient has not been getting up much at all this entire hospitalization and has had prolonged hospitalization. Patient is on augmentin and flonase and ENT was consulted for the mastoiditis findings on MRI and appreciate input and recommendations. Cardiology following and has discontinued metoprolol and adding midodrine for the low blood pressures. Strongly encouraged increased activity as tolerated and sitting up in the chair more often and out of the bed. Patient denies chest pain or shortness of breath. Patient was also on lasix bic and will make daily. Recommend am labs and close monitoring. Patient was to go to [facility] once stabilized. 11/17/2021 Patient is currently resting in bed. Awake alert and oriented x3. Complains of constipation and back discomfort. Otherwise maintaining sinus rhythm. No complaints of chest pain. No nausea vomiting abdominal pain or diarrhea. Neck no complaints of dizziness or lightheadedness. Patient did have orthostatic changes and was started on midodrine. Cardiology is on board. Diuretic dose decreased. Laboratory data showed WBC 16.5 hemoglobin 12.0 and platelets 206 Sodium 134 potassium 3.0 chloride 82 bicarb is 45 BUN 15 creatinine 1.3. Magnesium 2.5. 11/18/2021 Patient feels better today. No complaints of chest pain or shortness of breath. Patient was started on stool softeners and bowel regimen for constipation. H owever his blood pressure is stable. No complaints of dizziness lightheadedness. No nausea vomiting or diarrhea. No complaints of cough or sputum production. No headache or dizziness or lightheadedness. Laboratory test showed sodium 133 potassium 2.7 chloride 84 bicarb is 40 BUN 35 creatinine 1.03. Calcium 8.4. WBC 14.4 and hemoglobin 12.1 and platelets 177 Cardiology is on board. Review of systems: Constitutional: No reports of fatigue, fever, or chills Cardiovascular: No reports of chest pain or palpitations Respiratory: reports of shortness of breath that is no worse GI: reports of occasional nausea, vomiting, or diarrhea : No reports of dysuria or retention Neurovascular: reports of generalized weakness , reports some nausea and dizziness on occasion with getting up All medications have been reviewed PHYSICAL EXAMINATION: GENERAL: The patient is alert and oriented x3, not in any acute distress. Well developed, well nourished. HEENT: Pupils are round and equally reacting to light. EOMI. No scleral icterus. No conjunctival pallor. Normocephalic, atraumatic. No pharyngeal erythema. No thyromegaly. CARDIOVASCULAR: S1 and S2 muffled PULMONARY: diminished breath sounds bilaterally with some scattered rhonchi more so on the left with some faint wheezing noted ABDOMEN: Soft, nontender, nondistended, normoactive bowel sounds. No palpable organomegaly. MUSCULOSKELETAL: No joint swelling or deformity. EXTREMITIES: No cyanosis, clubbing, or pedal edema. NEUROLOGICAL: Gross neurological examination did not reveal any focal deficits. diffusely weak SKIN: No rashes. Assessment: -Acute on chronic hypoxic respiratory failure -Acute exacerbation diastolic CHF -Hypokalemia. Replaced. Orthostatic hypotension. Started on midodrine. -Bilateral mastoiditis noted on MRI, most likely chronic -Acute anemia likely related to chronic GI blood loss -Acute exacerbation COPD/asthma -Chronic back pain related to compression fractures T7, T12 and L2 -History of osteoporosis -No code Plan: Patient is currently on O2 at 4 L per nasal cannula; remains on oral Lasix 40 mg and transitioned to daily due to low blood pressures Recommend to continue low-salt and fluid restricted diet Encouraged increased activity as tolerated cardiology recommending to continue Eliquis, Cardizem, flecainide, metoprolol tartrate, although titrating down the dose and metoprolol discontinued and started on midodrine for low blood pressures, recomment orthostatics daily Pulmonary following and is on oral prednisone with plans for a quick taper, continue duo nebs PT/OT following for evaluation for ECF and patient agreeable, and recommend DEBBIE and social work following and insurance auth was obtained today Patient to continue with miralax and stool softeners as needed MRI was suggestive of mastoiditis and chronic sinusitis and will continue Augmentin to complete a week's course and have the patient follow-up in the outpatient setting with ENT for evaluation. ENT has evaluated the patient in hospital and recommending to continue with flonase and complete the augmentin, most likely chronic Prognosis is guarded Patient will be going to ECF once stabilized. REcommend repeat labs in the am Objective - Vital Signs Vital signs: Vital Signs Temp 98.1 F 11/18/21 08:30 Pulse 71 11/18/21 16:00 Resp 17 11/18/21 16:00 BP 103/55 11/18/21 16:00 Pulse Ox 95 11/18/21 16:00 FiO2 36 11/10/21 19:33 Intake & Output 11/18/21 11/18/21 11/19/21 06:59 18:59 06:59 Intake Total 120 Output Total 450 1000 Balance -330 -1000 Intake: Oral 120 Output: Urine 450 1000 Stool 0 Other: Voiding Method External Catheter External Catheter - Labs CBC & Chem 7: 11/18/21 10:09 11/20/21 06:48 Labs: Abnormal Lab Results - Last 24 Hours (Table) 11/18/21 11/18/21 11/18/21 Range/Units 10:09 10:09 11:41 WBC 14.5 H (3.8-10.6) k/uL MCHC 29.5 L (31.0-37.0) g/dL RDW 25.9 H (11.5-15.5) % Neutrophils # 12.8 H (1.3-7.7) k/uL Lymphocytes # 0.7 L (1.0-4.8) k/uL Sodium 133 L (137-145) mmol/L Potassium 2.7 L* (3.5-5.1) mmol/L Chloride 84 L (98-107) mmol/L Carbon Dioxide 40 H (22-30) mmol/L BUN 35 H (7-17) mg/dL Glucose 121 H (74-99) mg/dL POC Glucose (mg/dL) 141 H (70-110) mg/dL 11/18/21 11/18/21 Range/Units 16:42 21:00 WBC (3.8-10.6) k/uL MCHC (31.0-37.0) g/dL RDW (11.5-15.5) % Neutrophils # (1.3-7.7) k/uL Lymphocytes # (1.0-4.8) k/uL Sodium (137-145) mmol/L Potassium (3.5-5.1) mmol/L Chloride (98-107) mmol/L Carbon Dioxide (22-30) mmol/L BUN (7-17) mg/dL Glucose (74-99) mg/dL POC Glucose (mg/dL) 174 H 147 H (70-110) mg/dL
== END 2021-11-21 14:30 | DRG 291 ==
LOC: EC 12:21 → 3SCARD 14:12
PROVIDERS: ADMIT Hospitalist; ATTEND Hospitalist
PROC: 05HC33Z Insertion of Infusion Device into Left Basilic Vein, Percutaneous Approach (ICD-10-PCS; principal; 2021-11-16 20:35)
DX: I50.33 Acute on chronic diastolic (congestive) heart failure (principal); J96.21 Acute and chronic respiratory failure with hypoxia; J96.22 Acute and chronic respiratory failure with hypercapnia; N17.9 Acute kidney failure, unspecified; E87.3 Alkalosis; D62 Acute posthemorrhagic anemia; E87.1 Hypo-osmolality and hyponatremia; J44.1 Chronic obstructive pulmonary disease with (acute) exacerbation; J45.51 Severe persistent asthma with (acute) exacerbation; M80.88XA Other osteoporosis with current pathological fracture, vertebra(e), initial encounter for fracture; K92.2 Gastrointestinal hemorrhage, unspecified; H70.003 Acute mastoiditis without complications, bilateral; J98.11 Atelectasis; D63.1 Anemia in chronic kidney disease; N18.31 Chronic kidney disease, stage 3a; I34.0 Nonrheumatic mitral (valve) insufficiency; G25.81 Restless legs syndrome; G25.3 Myoclonus; Z99.81 Dependence on supplemental oxygen; I48.0 Paroxysmal atrial fibrillation; Z66 Do not resuscitate; J32.9 Chronic sinusitis, unspecified; G89.21 Chronic pain due to trauma; M79.89 Other specified soft tissue disorders; R00.1 Bradycardia, unspecified; R53.81 Other malaise; K59.00 Constipation, unspecified; H69.80 Other specified disorders of Eustachian tube, unspecified ear; E87.6 Hypokalemia; I95.1 Orthostatic hypotension; R20.0 Anesthesia of skin; K21.9 Gastro-esophageal reflux disease without esophagitis; Z20.822 Contact with and (suspected) exposure to COVID-19; Z79.899 Other long term (current) drug therapy; Z79.51 Long term (current) use of inhaled steroids; Z79.01 Long term (current) use of anticoagulants; Z79.52 Long term (current) use of systemic steroids; Z88.8 Allergy status to other drugs, medicaments and biological substances; Z88.1 Allergy status to other antibiotic agents; Z88.5 Allergy status to narcotic agent; Z87.440 Personal history of urinary (tract) infections; Z87.442 Personal history of urinary calculi; Z85.828 Personal history of other malignant neoplasm of skin; Z86.19 Personal history of other infectious and parasitic diseases; Z98.890 Other specified postprocedural states; Z90.89 Acquired absence of other organs; Z90.49 Acquired absence of other specified parts of digestive tract; Z90.81 Acquired absence of spleen; Z98.42 Cataract extraction status, left eye; Z80.0 Family history of malignant neoplasm of digestive organs
CPT/HCPCS: 36410; 36415; 36600; 70450; 70553; 71046; 74018; 76937; 80048; 80053; 82140; 82607; 82746; 82803; 82805; 83036; 83605; 83735; 83880; 84443; 84484; 85025; 85379; 85610; 85730; 87502; 87635; 93005; 94640; 94760; 95816; 96374; 96375; 96376; 99285